=== PATIENT | female | born 1955 | race Caucasian/White ===

== ENCOUNTER 2022-06-20 19:27 | Emergency (ER) | payer MEDICARE, SELFPAY ==
[2022-06-20 19:28] VITALS: BP 163/59; PULSE 78; RESP 18; TEMP 36.5; O2SAT 92; BMI 35.0
--- NOTE | 2022-06-20 20:31 | US_ITS ---
STUDY: ABDOMINAL ULTRASOUND - RIGHT UPPER QUADRANT REASON FOR VISIT: Female, 66 years old pain, n/v TECHNIQUE: Ultrasound evaluation of the right upper quadrant was performed with real-time and static roche-scale imaging. TECHNICAL QUALITY: Adequate. COMPARISON: None. FINDINGS: Liver: The liver measures 20 cm. There is normal echogenicity of the liver. The bile ducts are within normal limits. There is hepatic color flow. The direction of portal flow is hepatopetal. There is no demonstrated mass lesion. Gallbladder: Not identified. Common Bile Duct (C.B.D.): The common bile duct measures 13 mm. Pancreas: Normal size of the head, body and tail of the pancreas. There is increased echogenicity of the pancreas incomplete visualization due to bowel gas. Right Kidney: Normal size of the right kidney. The right kidney measures 12.8 cm. Normal renal cortex. The right cortex measures 1.3 cm. There is no demonstrated renal mass or cyst. There is no right hydronephrosis. US/Gallbladder IMPRESSION: Hepatomegaly. Gallbladder not identified. Prominent common bile duct. Distal common bile duct obstruction not excluded. Recommend HIDA scan and/or MRCP. Electronically Signed: Fortino Perez MD at 22:26 EDT ,
--- NOTE | 2022-06-20 20:32 | ED.VIS.GI ---
HPI HPI - GI History of Present Illness Chief Complaint: Back Informant: patient Narrative Narrative: Patient is been having right-sided abdominal pain for maybe 3 weeks, radiates into her right mid back, she has been having discomfort in her entire right lower extremity for longer than that, it was not associated with any back pain until about 3 weeks ago, the leg pain is no different now. She denies numbness tingling weakness, bowel or bladder dysfunction. She was seen at a different ER, [facility] about 1 week ago, she brings partial records there are pages missing. Basically shows that she had a CT of the abdomen/pelvis that showed some lymphadenopathy and an adrenal nodule. She did have some labs I cannot see them all including her white blood count, she had a very slightly elevated alkaline phosphatase but all of the other chemistries and liver enzymes were normal. She had a prior ovary removal but no other abdominal surgeries in the past. She states they did nothing for me, so I came here today. It seems they told her to follow-up, and they prescribed her Verdon and dicyclomine for her symptoms according to the discharge instructions that she brought. I asked her if she read the discharge instructions and she said no, but she had an appointment to follow-up with the specialist they referred her to, but she and family states I was too sick to go to the appointment and missed it. She has had a significant amount of vomiting off-and-on over the past 3 weeks with this. [facility] Medical History (Updated 06/20/22 @ 22:[address] Narciso Morfin MD) Diabetes HLD (hyperlipidemia) Hypertension Home Medications dicyclomine 10 mg capsule 20 mg PO Q6H PRN PRN abdominal discomfort #30 CAPSULES 06/20/22 [Rx Last Taken Unknown] ondansetron 4 mg disintegrating tablet 8 mg PO Q8H PRN PRN Nausea #20 tabs 06/20/22 [Rx Last Taken Unknown] Allergy/AdvReac Type Severity Reaction Status Date / Time No Known Allergies Allergy Verified 06/20/22 19:28 Surgical History (Updated 06/20/22 @ 20:[address] Narciso Morfin MD) Hx of oophorectomy Social History Smoking Status: Never smoker ROS ROS ED Constitutional Constitutional ED: Denies chills or fever(s) Eyes Eyes: Denies change in vision or diplopia ENT ENT ED: Denies rhinorrhea or sore throat Cardiovascular Cardiovascular: Denies chest pain or palpitations Respiratory/Chest Respiratory/Chest: Denies cough or dyspnea Gastrointestinal Gastrointestinal: Reports abdominal pain, constipation, nausea and vomiting; Denies diarrhea or melena Genitourinary Genitourinary ED: Denies dysuria or hematuria Musculoskeletal Musculoskeletal: Reports back pain and extremity pain; Denies neck pain Integumentary Denies abscess or rash Neurologic Neurologic: Denies headache(s), paresthesias or weakness Psychiatric Psychiatric: Denies anxiety or suicidal thoughts EXAM Physical Exam Const Vital Signs: 06/20/22 19:28 06/20/22 19:30 06/20/22 22:04 Temperature 97.7 F L Temperature Source Temporal Pulse Rate 78 Respiratory Rate 18 Respiratory Effort Normal Non-Labored Respiratory Pattern Normal Blood Pressure 163/59 H 146/68 H Blood Pressure Mean 93 94 Pulse Ox 92 96 Oxygen Delivery Method Room Air Room Air Positive well nourished and well developed Constitutional Narrative: Morbid abdominal obesity which limits the exam General Appearance ED: well developed and NAD HEENT Reports moist mucous membranes normocephalic and atraumatic Eyes PERRL and EOMs intact bilaterally Neck full ROM and supple Resp normal respiratory effort and clear to auscultation bilaterally Cardio regular rate, regular rhythm and no murmurs GI non-distended GI Narrative: Moderately-severely tender right upper quadrant with Roa sign. Less tender in the right lower quadrant without guarding or rebound tenderness. No other areas of tenderness. Obesity does limit the exam. Auscultation: normoactive bowel sounds Palpation: soft Back/Spine no CVA tenderness General Back: other FROM Extremity normal to inspection General Extremety ED: Negative for edema, pulses abnormal or tenderness General Extremity: Negative for edema or pulses abnormal Neuro oriented x3, CN's II-XII intact bilaterally and no sensory deficits noted Sensorium / Orientation: awake and alert Motor Exam: strength 5/5 throughout Skin no rashes or lesions noted and no wounds MDM MDM MDM Narrative Medical decision making narrative: Patient was given a dose of morphine for pain while we did some work-up including repeating her labs, which are normal except for her glucose of 196 and a slightly elevated alkaline phosphatase of 161 which is nonspecific and can occur with vomiting. Lipase is normal. Her albumin is low and the urine that I reviewed from outside hospital 1 week ago did show proteinuria. She does have a slight creatinine elevation but not very high especially for her size. It is lower than it was a week ago. Since her CT 1 week ago for the same pain did not show anything acute I do not think that needs to be repeated. She states she has not had a cholecystectomy, so I obtained an ultrasound of her gallbladder since that is where the majority of her tenderness is, I reviewed the images and the radiologist's interpretation which I agree with, the gallbladder is not seen. I discussed that with the patient, and she states that she has never had a cholecystectomy. Possibly it is obscured by bowel gas or contracted. Given her white blood count of 6.9 and normal liver enzymes otherwise, unlikely that she has acute cholecystitis here. I offered her an enema to treat possible constipation which she was amenable to. This did help her some. She looks much better on reevaluation. She is out of the dicyclomine she had I am prescribing her some more of that in addition to Zofran and advising MiraLAX, and following up, she states she already has an appointment. Lab Data Attestation: I reviewed the patient's lab results. Labs: Laboratory Results - last 24 hr 06/20/22 06/20/22 06/20/22 20:52 20:52 22:37 WBC 6.9 RBC 5.15 Hgb 15.3 H Hct 45.9 MCV 89.1 MCH 29.7 MCHC 33.3 RDW Std Deviation 41.9 RDW Coeff of Sidra 12.9 Plt Count 113 L MPV 10.2 Immature Gran % (Auto) 0.300 Neut % (Auto) 68.6 Lymph % (Auto) 24.8 [place] % (Auto) 5.7 Eos % (Auto) 0.3 Baso % (Auto) 0.3 Absolute Neuts (auto) 4.7 Absolute Lymphs (auto) 1.71 Nucleated RBC % 0 Sodium 138 Potassium 3.9 Chloride 104 Carbon Dioxide 26.0 Anion Gap 8 BUN 13 Creatinine 1.14 H Estim Creat Clear Calc 46.06 Est GFR (MDRD) Af Amer 61 Est GFR (MDRD) Non-Af 51 L BUN/Creatinine Ratio 11.4 Glucose 196 H Calcium 8.8 Total Bilirubin 0.30 AST 27 ALT 28 Alkaline Phosphatase 161 H Total Protein 6.9 Albumin 2.8 L Globulin 4.1 Albumin/Globulin Ratio 0.7 L Lipase 225 Urine Color Yellow Urine Clarity Clear Urine pH 6.0 Ur Specific [place] 1.020 Urine Protein 500 H Urine Glucose (UA) Normal Urine Ketones Negative Urine Occult Blood 150 H Urine Nitrite Negative Urine Bilirubin Negative Urine Urobilinogen Normal Ur Leukocyte Esterase Negative Radiography Diagnostic Testing: Clinical Impression(s) from Imaging Studies Gallbladder Ultrasound 06/20/22 20:31 IMPRESSION: Hepatomegaly. Gallbladder not identified. Prominent common bile duct. Distal common bile duct obstruction not excluded. Recommend HIDA scan and/or MRCP. Electronically Signed: Fortino Perez MD at 22:26 EDT Reading Location ID and State: [address] [place] [address] , Service support , Discharge Plan Triage Chief Complaint: Back ED Provider: Narciso Morfin Dx/Rx/DC Orders Clinical Impression: Right sided abdominal pain, Constipation Instructions: Abdominal Pain Prescriptions: New ondansetron [ondansetron] 4 mg tablet,disintegrating 8 mg PO Q8H PRN PRN (Reason: Nausea) Qty: 20 0RF dicyclomine 10 mg capsule 20 mg PO Q6H PRN PRN (Reason: abdominal discomfort) Qty: 30 0RF Primary Care Provider: Deepa Hunt Referrals: NOT,DEFINED [Non-Staff] - Doctor,Your [Non-Staff] - As soon as possible (as previously referred -- call for appt if needed) Activity Restrictions/Additional Instructions: Use the dicyclomine that you were previously prescribed as needed for pain, may also take Tylenol and/or ibuprofen as needed, Mylanta. MiraLAX is recommended daily, 1 capful dissolved in at least 8 ounces of any beverage or water. Make sure you are drinking plenty of water and use the nausea medication prescription as needed. Disposition Disposition: Home, Self Care
[2022-06-20 21:06] LABS: Absolute Lymphocyte Count 1.71 X10^3/uL (0.83-4.51); Absolute Neutrophil Count 4.7 X10^3/uL (2.0-7.7); Basophil# 0.02 X10^3/uL; Basophil% 0.3 % (0-1); Eosinophil# 0.02 X10^3/uL; Eosinophils% 0.3 % (0-5); Hematocrit 45.9 % (37-47); Hemoglobin 15.3 g/dL (12.0-15.0); Lymphocyte # 1.71 X10^3/ul (0.83-4.51); Lymphocyte % 24.8 % (19-41); Mean Corp Hgb Conc 33.3 g/dL (32-36); Mean Corpuscular Hgb 29.7 pg (27.0-32.0); Mean Corpuscular Volume 89.1 fL (81-99); Mean Platelet Vol. 10.2 fl (6.2-12.0); Monocyte# 0.39 X10^3/uL; Monocyte% 5.7 % (0-10); NRBC Flagged by Analyzer 0 % (0-5); Neutrophil # 4.74 X10^3/uL (2.7-7.7); Neutrophil % 68.6 % (47-70); Platelet Count 113 K/mm3 (150-450); RBC Distribution Width CV 12.9 % (11.6-14.6); RBC Distribution Width SD 41.9 fl (35.1-43.9); Red Blood Count 5.15 M/mm3 (4.2-5.4); White Blood Count 6.9 K/mm3 (4.4-11.0)
[2022-06-20] MEDS: 0.9% Normal Saline 1,000 ML 125 ML IV (21:10)
[2022-06-20] MEDS: Morphine 4 MG/ML Syringe IV (21:11)
[2022-06-20] MEDS: Ondansetron 4 MG/2 ML Vial IV (21:12)
[2022-06-20 21:20] LABS: ALB/GLOB Ratio 0.7 RATIO (0.9-2.4); AST(SGOT) 27 U/L (15-37); Alanine Aminotransfer ALT/SGPT 28 U/L (13-56); Albumin, Serum 2.8 g/dL (3.2-5.0); Alkaline Phosphatase 161 U/L (45-117); Anion Gap 8 (5-15); BUN 13 mg/dL (7-18); BUN/Creat Ratio 11.4 RATIO (10-20); Calcium,Total 8.8 mg/dL (8.5-10.1); Chloride 104 mmol/L (98-107); Creatinine, Serum 1.14 mg/dL (0.55-1.02); EST Glomerular Filtration Rate 51 mL/min (>60); Est Glom Filt Rate - Afr Amer 61 mL/min (>60); Estimated Creatinine Clearance 46.06 ml/min; Globulin 4.1 g/dL (2.2-4.2); Glucose 196 mg/dL (74-106); Lipase 225 U/L (73-393); Potassium 3.9 mmol/L (3.5-5.1); Protein, Total 6.9 g/dL (6.4-8.2); Sodium Level 138 mmol/L (136-145)
[2022-06-20 22:04] VITALS: BP 146/68; O2SAT 96
[2022-06-20 22:40] LABS: Mucous, Urine 0 SEEN /hpf (<or=2+); White Blood Cells 0 SEEN /hpf (0-5)
[2022-06-20 22:57] LABS: Color, Urine Yellow (Yellow); Glucose, Dipstick Normal (Normal); Ketone-Dipstick Negative (Negative); Leukocyte Esterase-Dipstick Negative /ul (Negative); Nitrite-Dipstick Negative (Negative); Occult Blood-Urine 150 /ul (Negative); Protein-Dipstick 500 mg/dl (Negative); Urine Bilirubin Dipstick Negative (Negative); Urine Clarity Clear (Clear); Urine Urobilinogen Normal (Normal)
[2022-06-20 23:08] LABS: Bacteria 1+ /hpf (None Seen); Red Blood Cells-Urine 5-10 SEEN /hpf (0-5); Squamous Epithelial Cells - UA 5-10 SEEN /hpf (5-10)
[2022-06-21 00:24] VITALS: BP 166/59; PULSE 71; RESP 18; O2SAT 95
== END 2022-06-21 00:26 | disposition home or self-care (01) ==
PROVIDERS: Emergency Provider Emergency Medicine; PCP Physician Assistant Medical; Visit Provider Emergency Medicine
DX: K59.00 Constipation, unspecified (principal); E11.9 Type 2 diabetes mellitus without complications; I10 Essential (primary) hypertension; E78.5 Hyperlipidemia, unspecified
CPT/HCPCS: 76705; 80053; 81001; 83690; 85025; 96361; 96374; 96375; 99285; J2405

== ENCOUNTER 2024-01-12 16:16 | Inpatient (IN) | payer MEDICARE, SELFPAY ==
[2024-01-12] VITALS (12 sets, daily range): BP systolic 103–154; BP diastolic 47–83; PULSE 70–80; RESP 16–27; TEMP 35.7–36.4; O2SAT 90–96; BMI 45.7; BMI 44.7
--- NOTE | 2024-01-12 16:43 | EKG12_ITS ---
Test Reason : SOB Blood Pressure : / mmHG Vent. Rate : 077 BPM Atrial Rate : 077 BPM P-R Int : 146 ms QRS Dur : 064 ms QT Int : 374 ms P-R-T Axes : 027 -04 049 degrees QTc Int : 423 ms Normal sinus rhythm Low voltage QRS Borderline ECG Confirmed by FREDI MORRISSEY, FREDDY ([id number]), assignment desk editor ODILON CASTELLANO ([id number]) on 01/13/2024 1:37:41 PM Referred By: Chris Mendez Confirmed By:FREDDY RAI MD
[2024-01-12 17:07] LABS: Absolute Lymphocyte Count 1.04 X10^3/uL (0.83-4.51); Absolute Neutrophil Count 13.5 X10^3/uL (2.0-7.7); Basophil# 0.03 X10^3/uL; Basophil% 0.2 % (0-1); Eosinophil# 0.01 X10^3/uL; Eosinophils% 0.1 % (0-5); Hematocrit 35.9 % (37-47); Hemoglobin 11.4 g/dL (12.0-15.0); Lymphocyte # 1.04 X10^3/ul (0.83-4.51); Lymphocyte % 6.8 % (19-41); Mean Corp Hgb Conc 31.8 g/dL (32-36); Mean Corpuscular Hgb 28.5 pg (27.0-32.0); Mean Corpuscular Volume 89.8 fL (81-99); Mean Platelet Vol. 10.9 fl (6.2-12.0); Monocyte# 0.62 X10^3/uL; NRBC Flagged by Analyzer 0 % (0-5); Neutrophil # 13.47 X10^3/uL (2.7-7.7); Neutrophil % 87.8 % (47-70); POSITIVE COUNT YES; Platelet Count 95 K/mm3 (150-450); RBC Distribution Width CV 14.7 % (11.6-14.6); RBC Distribution Width SD 47.8 fl (35.1-43.9); White Blood Count 15.3 K/mm3 (4.4-11.0)
[2024-01-12 17:09] LABS: Differential Indicated SCAN CRITERIA MET
[2024-01-12] MEDS: Ipratropium/Albuterol Sulfate 3 ML AMPUL.NEB INHALATION (17:09)
[2024-01-12] MEDS: predniSONE 20 MG Tablet 60 MG PO (17:10)
--- NOTE | 2024-01-12 17:21 | EX.ED.DYSGE1 ---
HPI History of Present Illness Chief Complaint: Weakness Narrative Narrative: Patient is a 68-year-old female past medical history hypertension, diabetes, hyperlipidemia who presented to the emergency department the chief complaint of shortness of breath. According the patient past few days she has been having worsening shortness of breath and she states that she recently was discharged from with pneumonia. Patient states that she has worsening shortness of breath on exertion. Patient states that she felt it was worse today which prompted her here further evaluation management. Patient states that she is not normally on oxygen and she was noted be hypoxic when she was picked up by EMS. [facility] Medical History (Updated 01/12/24 @ 19:[address] Chris Mendez, ) Diabetes mellitus, type 2 Thrombocytopenia Allergic rhinitis Hypothyroidism Anxiety and depression Morbid obesity CKD (chronic kidney disease), stage III Hyperlipidemia Hypertension Home Medications ?Medication ?Instructions ?Recorded ?Last Taken ?Type dicyclomine 10 mg capsule 20 mg (2 x 10 mg) PO Q6H PRN PRN 06/20/22 Unknown Rx abdominal discomfort #30 CAPSULES ondansetron 4 mg disintegrating 8 mg (2 x 4 mg) PO Q8H PRN PRN 06/20/22 Unknown Rx tablet Nausea #20 tabs aspirin 81 mg tablet,delayed 81 mg PO 01/12/24 Unknown History release atorvastatin 20 mg tablet 20 mg PO DAILY 01/12/24 Unknown History citalopram 40 mg tablet mg PO 01/12/24 Unknown History gabapentin 800 mg tablet 800 mg PO TID 01/12/24 Unknown History insulin glargine 100 unit/mL (3 40 unit subcut BID 01/12/24 Unknown History mL) subcutaneous pen (Lantus Solostar U-100 Insulin) levothyroxine 75 mcg tablet 75 mcg PO DAILY 01/12/24 Unknown History metoprolol tartrate 50 mg tablet 50 mg PO BID 01/12/24 Unknown History montelukast 10 mg tablet 10 mg PO QHS 01/12/24 Unknown History trazodone 100 mg tablet 100 mg PO QHS 01/12/24 Unknown History Allergy/AdvReac Type Severity Reaction Status Date / Time No Known Allergies Allergy Verified 01/12/24 16:26 Surgical History Hx of oophorectomy Social History Smoking Status: Former smoker ROS ROS ED ROS Narrative Constitutional: Complains of headache however patient states that this feels like her typical migraine headache denies any fevers, chills, lightness, dizziness Eyes: Denies any change in vision double vision blurry vision Cardiovascular: Denies chest pain or palpitations Respiratory: Complains shortness of breath and cough denies wheezing Abdomen: Denies abdominal pain nausea vomit diarrhea : Denies any urinary symptoms Neurological: Denies any numbness, weakness, tingling Musculoskeletal: Denies back pain Skin: Denies rashes or lesions EXAM Physical Exam Narrative Exam Narrative: General: Patient lying in bed rest comfortably did not appear to be in acute distress Head: Atraumatic, normocephalic Eyes: PERRL bilateral, EOMI bilateral, no conjunctival injection noted Neck: Soft, supple, trachea midline Cardiovascular: Regular rate and rhythm no murmurs gallops rubs noted Respiratory: Patient has end expiratory wheezing noted on exam bilaterally Abdomen: Soft, nondistended, nontender to palpation Extremities: +5/5 strength noted in the bilateral lower extremities, 1+ pitting edema in bilateral lower extremities Neurological: Patient following commands knew that she was at [facility] year is 2023 Skin: Patient does have a evidence of left lower extremity cellulitis Const Vital Signs: 01/12/24 16:18 01/12/24 16:27 01/12/24 16:27 Temperature 96.3 F L 97.3 F L Temperature Source Temporal Temporal Pulse Rate 80 79 Respiratory Rate 24 H 24 H Respiratory Effort Non-Labored Short of Breath Respiratory Pattern Tachypnea Blood Pressure 154/55 H 154/55 H Blood Pressure Mean 88 88 Pulse Ox 90 95 Oxygen Delivery Method Room Air Nasal Cannula Oxygen Flow Rate (L/min) 2 01/12/24 16:57 01/12/24 17:12 01/12/24 17:24 Temperature 97.6 F L Temperature Source Temporal Pulse Rate 79 78 Respiratory Rate 16 27 H Respiratory Effort Respiratory Pattern Normal Blood Pressure 127/75 H Blood Pressure Mean 92 Pulse Ox 96 Oxygen Delivery Method Nasal Cannula Nasal Cannula Oxygen Flow Rate (L/min) 2 2 01/12/24 18:00 01/12/24 18:42 01/12/24 19:00 Temperature 97.4 F L 97.6 F L Temperature Source Oral Temporal Pulse Rate 76 78 Respiratory Rate 20 H 21 H Respiratory Effort Respiratory Pattern Blood Pressure 130/47 H 103/83 H Blood Pressure Mean 74 89 Pulse Ox 93 93 96 Oxygen Delivery Method Nasal Cannula Nasal Cannula Nasal Cannula Oxygen Flow Rate (L/min) 2 2 3 01/12/24 19:43 Temperature 97.6 F L Temperature Source Pulse Rate 78 Respiratory Rate 21 H Respiratory Effort Respiratory Pattern Blood Pressure 103/83 H Blood Pressure Mean 89 Pulse Ox 96 Oxygen Delivery Method Oxygen Flow Rate (L/min) MDM MDM MDM Narrative Medical decision making narrative: Patient is a 68-year-old female who presented to the emerged part with chief complaint of dyspnea on exertion and cough. Patient will have a workup performed here on the differential diagnose includes but not limited to ACS, pneumonia, CHF exacerbation, COPD exacerbation. Patient will be given DuoNeb, oral prednisone. Patient is not normally on oxygen she was hypoxic therefore she was placed on nasal cannula. Patient CBC was significant for leukocytosis of 15,000, hemoglobin stable 11.4, platelet count was noted to be 95. Patient sodium noted be 134, creatinine was elevated to 1.48 however she has underlying chronic kidney disease, potassium normal 4.8, lactic acid was normal at 1.6. Patient AST and ALT were 30 and 24 respectively proBNP was elevated of 144, troponin reviewed and was noted to be normal at 13. Patient's EKG was reviewed as well which showed sinus rhythm with a rate of 77 bpm. Patient's urinalysis showed 25 leukocyte esterase 5-10 white blood cells with 2+ bacteria this was sent for culture she will be given a gram of Rocephin. Patient's chest x-ray was reviewed as well which showed small right pleural effusion and mild right basilar atelectasis. Patient was ambulated here in the emergency department on room air and desaturated to 83% was placed back on nasal cannula. She will require admission. Patient was given 40 mg IV Lasix as well. Discussed this with the hospitalist Dr. Rojas who accept patient for admission. Patient is agreeable to plan all question concerns answered bedside. Lab Data Labs: Laboratory Results - last 24 hr 01/12/24 01/12/24 01/12/24 16:56 17:45 19:10 WBC 15.3 H RBC 4.00 L Hgb 11.4 L Hct 35.9 L MCV 89.8 MCH 28.5 MCHC 31.8 L RDW Std Deviation 47.8 H RDW Coeff of Sidra 14.7 H Plt Count 95 L MPV 10.9 Immature Gran % (Auto) 1.100 H Neut % (Auto) 87.8 H Lymph % (Auto) 6.8 L [place] % (Auto) 4.0 Eos % (Auto) 0.1 Baso % (Auto) 0.2 Absolute Neuts (auto) 13.5 H Absolute Lymphs (auto) 1.04 Nucleated RBC % 0 Differential Comment SCANNED Sodium 134 L Potassium 4.8 Chloride 102 Carbon Dioxide 28.0 Anion Gap 5 BUN 11 Creatinine 1.48 H Estim Creat Clear Calc 43.94 Est GFR (MDRD) Af Amer 45 L Est GFR (MDRD) Non-Af 37 L BUN/Creatinine Ratio 7.4 L Glucose 183 H Lactic Acid 1.6 Calcium 8.5 Total Bilirubin 0.80 Direct Bilirubin 0.18 AST 30 ALT 24 Alkaline Phosphatase 206 H Troponin I High Sens 13 15 B-Natriuretic Peptide 144.1 H Total Protein 6.6 Albumin 2.3 L Globulin 4.3 H Urine Color [place] Urine Clarity Clear Urine pH 7.0 Ur Specific [place] 1.010 Urine Protein 500 H Urine Glucose (UA) Normal Urine Ketones Negative Urine Occult Blood 150 H Urine Nitrite Negative Urine Bilirubin Negative Urine Urobilinogen 1 H Ur Leukocyte Esterase 25 H Urine RBC > 100 SEEN Urine WBC 5-10 SEEN Ur Squamous Epith Cells 10-25 SEEN Urine Bacteria 2+ Urine Mucus 0 SEEN Radiography Diagnostic Testing: Clinical Impression(s) from Imaging Studies Chest X-Ray 01/12/24 17:30 IMPRESSION: Small right pleural effusion and mild right basilar atelectasis Electronically Signed: Kirt Ruff MD at 17:55 EDT , Discharge Plan Triage Chief Complaint: Weakness ED Provider: Chris Mendez Dx/Rx/DC Orders Clinical Impression: Hypoxia, Dyspnea on exertion, CHF (congestive heart failure), UTI (urinary tract infection) Prescriptions: No Action ondansetron [ondansetron] 4 mg tablet,disintegrating 8 mg PO Q8H PRN PRN (Reason: Nausea) Qty: 20 0RF dicyclomine 10 mg capsule 20 mg PO Q6H PRN PRN (Reason: abdominal discomfort) Qty: 30 0RF atorvastatin 20 mg tablet 20 mg PO DAILY citalopram 40 mg tablet PO aspirin 81 mg tablet,delayed release (DR/EC) 81 mg PO gabapentin 800 mg tablet 800 mg PO TID insulin glargine [Lantus Solostar U-100 Insulin] 100 unit/mL (3 mL) insulin pen 40 unit subcut BID levothyroxine 75 mcg tablet 75 mcg PO DAILY trazodone 100 mg tablet 100 mg PO QHS metoprolol tartrate 50 mg tablet 50 mg PO BID montelukast 10 mg tablet 10 mg PO QHS Primary Care Provider: Deepa Hunt Referrals: Deepa Hunt PA [Primary Care Provider] - Print Language: Croatian
[2024-01-12 17:27] LABS: AST(SGOT) 30 U/L (15-37); Alanine Aminotransfer ALT/SGPT 24 U/L (13-56); Albumin, Serum 2.3 g/dL (3.2-5.0); Alkaline Phosphatase 206 U/L (45-117); Anion Gap 5 (5-15); BUN 11 mg/dL (7-18); BUN/Creat Ratio 7.4 RATIO (10-20); Bilirubin, Direct 0.18 mg/dL (0.00-0.30); Calcium,Total 8.5 mg/dL (8.5-10.1); Chloride 102 mmol/L (98-107); Creatinine, Serum 1.48 mg/dL (0.55-1.02); EST Glomerular Filtration Rate 37 mL/min (>60); Est Glom Filt Rate - Afr Amer 45 mL/min (>60); Estimated Creatinine Clearance 43.94 ml/min; Globulin 4.3 g/dL (2.2-4.2); Glucose 183 mg/dL (74-106); Potassium 4.8 mmol/L (3.5-5.1); Protein, Total 6.6 g/dL (6.4-8.2); Sodium Level 134 mmol/L (136-145); Troponin-I HS (w/2H Reflex) 13 pg/mL (3.0-54.0)
--- NOTE | 2024-01-12 17:30 | RAD_ITS ---
STUDY: X-RAY CHEST REASON FOR EXAM: Female, 68 years old. chest pain TECHNIQUE: PA and lateral COMPARISON: None. FINDINGS: Small right pleural effusion and mild right lower lobe atelectasis. Normal size heart. Normal mediastinum and ely. Normal visualized pulmonary arteries. Mildly calcified aortic arch and descending thoracic aorta. Normal visualized thoracic spine. Normal visualized ribs, clavicles, and shoulders. There is no demonstrated abnormality of the visualized soft tissue structures of the upper abdomen. RAD/Chest PA and Lateral IMPRESSION: Small right pleural effusion and mild right basilar atelectasis Electronically Signed: Kirt Ruff MD at 17:55 EDT ,
[2024-01-12 17:31] LABS: Lactic Acid 1.6 mmol/L (0.4-1.9)
[2024-01-12 17:34] LABS: BNP,B-Type NATRIURETIC PEPTIDE 144.1 pg/mL (0-100)
[2024-01-12 17:42] LABS: Differential Comment SCANNED
[2024-01-12 17:54] LABS: Mucous, Urine 0 SEEN /hpf (<or=2+)
[2024-01-12 18:03] LABS: Color, Urine Amber (Yellow); Glucose, Dipstick Normal (Normal); Ketone-Dipstick Negative (Negative); Leukocyte Esterase-Dipstick 25 /ul (Negative); Nitrite-Dipstick Negative (Negative); Occult Blood-Urine 150 /ul (Negative); Protein-Dipstick 500 mg/dl (Negative); Urine Bilirubin Dipstick Negative (Negative); Urine Clarity Clear (Clear); Urine Urobilinogen 1 mg/dl (Normal)
[2024-01-12 18:41] LABS: Bacteria 2+ /hpf (None Seen); Red Blood Cells-Urine > 100 SEEN /hpf (0-5); Squamous Epithelial Cells - UA 10-25 SEEN /hpf (5-10); White Blood Cells 5-10 SEEN /hpf (0-5)
[2024-01-12 19:00] LABS: Reflex Troponin-HS? (from REC) Y
[2024-01-12] MEDS: Ceftriaxone 1 GM/50 ML BAG IV (19:00)
[2024-01-12] MEDS: Furosemide 40 MG/4 ML Vial IV (19:00)
--- NOTE | 2024-01-12 19:25 | PCM.HP.STD ---
HPI - General General Date of Admission: 01/12/24 Date of Service: 01/12/24 Chief Complaint: Dyspnea, cough, fatigue. HPI Narrative The patient is a 68 y/o F w/ PMHx: Chronic migraines, Morbid obesity, HTN, HLD, Diabetes mellitus type II with chronic neuropathy, Chronic Thrombocytopenia unclear etiology, Anxiety and Depression, Allergic Rhinitis, Hypothyroidism, CKD stage III unclear subtype, Former tobacco use who presents to the [facility] ED on 01/12/24 with history of dyspnea worsening over the last few days recently discharged from [facility] with reportedly pneumonia but unclear organism more notable with exertion not normally using oxygen however given her fatigue and malaise as well as dyspnea prompted EMS call who noted that she was hypoxic upon initial evaluation prompting ED evaluation. Patient notes that she was discharged from potentially 2 weeks prior to current presentation and was admitted for possibly 3 days treated for pneumonia and COPD exacerbation at that time and completed antibiotic therapy. She does report that recently she feels as though her lower extremities have been more swollen but denies any specific weight gain although does admit to orthopnea. She notes that she has been wheezing and coughing with occasional productive sputum as well as shortness of breath with chills but no fevers. Workup in the ED included T96.3, heart 80, BP 1 5455, respiratory rate 24, 90% room air eventually desaturating with ambulatory trial noted to drop to 83%, placed on 2 L nasal cannula with most recent repeat vitals T97.4, heart 76, BP 130/47, respiratory rate 20, 93% on 2L NC, CBC with WBC 15.3, hemoglobin 0.4, MCV 89.8, platelet 95 with left shift, CBC with sodium 134, BUN/creatinine 11/1.48, GFR 37, glucose 183, lactic acid 1.6, hepatic profile with alk phos 206 otherwise not marked appearing, BNP 144.1, troponin 13 with repeat delta troponin 15, urinalysis with joan appearing urine, specific remedy 1.010, protein 500, occult blood 150, nitrite negative, leukocyte Estrace 25 however urine RBCs greater than 100 with 5-10 urine WBCs with 2+ bacteria but this is a poor sample with squamous epithelial cells noted 10-25, urine culture pending per ED but will request improved sample with straight cath given this is not a good sample, blood culture x 2 pending per ED, CXR with small right pleural effusion and mild right basilar atelectasis, EKG with sinus rhythm with no acute evidence of ischemia. In the ED patient administered DuoNeb therapy, IV Rocephin 1 g x 1, Lasix 40 mg IV x 1 as well as prednisone 60 mg p.o. x 1. [facility] Medical History Diabetes mellitus, type 2 Thrombocytopenia Allergic rhinitis Hypothyroidism Anxiety and depression Morbid obesity CKD (chronic kidney disease), stage III Hyperlipidemia Hypertension Home Medications ?Medication ?Instructions ?Recorded ?Last Taken ?Type ondansetron 4 mg disintegrating 8 mg (2 x 4 mg) PO Q8H PRN PRN 06/20/22 Unknown Rx tablet Nausea #20 tabs aspirin 81 mg tablet,delayed 81 mg PO DAILY heart 01/12/24 Unknown History release atorvastatin 20 mg tablet 20 mg PO DAILY 01/12/24 Unknown History citalopram 40 mg tablet 40 mg PO DAILY depression 01/12/24 Unknown History gabapentin 800 mg tablet 800 mg PO TID 01/12/24 Unknown History insulin glargine 100 unit/mL (3 40 unit subcut BID 01/12/24 Unknown History mL) subcutaneous pen (Lantus Solostar U-100 Insulin) levothyroxine 75 mcg tablet 75 mcg PO DAILY 01/12/24 Unknown History metoprolol tartrate 50 mg tablet 50 mg PO BID 01/12/24 Unknown History montelukast 10 mg tablet 10 mg PO QHS 01/12/24 Unknown History trazodone 100 mg tablet 100 mg PO QHS 01/12/24 Unknown History Allergy/AdvReac Type Severity Reaction Status Date / Time No Known Allergies Allergy Verified 01/12/24 16:26 Family History (Updated 01/13/24 @ 01:[address] Meg Rojas MD) Mother Brain aneurysm Father Hypertension Heart disease Heart failure Surgical History (Updated 01/13/24 @ 01:[address] Meg Rojas MD) History of total left knee replacement Hx of oophorectomy Social History (Updated 01/13/24 @ 01:[address] Meg Rojas MD) household members: family Smoking Status: Current every day smoker tobacco type: cigarettes Smoking packs per day: 0.25 Smoking cigarettes per day: 5.0 alcohol intake: never substance use type: does not use ROS ROS Narrative Admission Review of Systems: CONSTITUTIONAL: No weight loss, fever, chills, + weakness or fatigue. HEENT: + Mild headache, chronic migraine history. Eyes: No visual loss, blurred vision, double vision or yellow sclerae. Ears, Nose, Throat: No hearing loss, sneezing, congestion, runny nose or sore throat. SKIN: No rash or itching, lesions, wounds. CARDIOVASCULAR: + Increased lower extremity swelling and orthopnea but no reported weight gain. No chest pain, chest pressure or chest discomfort, palpitations, syncopal events. RESPIRATORY: + Dyspnea, worse with exertion with cough. No marked sputum production, wheezing, hemoptysis. GASTROINTESTINAL: No anorexia, nausea, vomiting or diarrhea, abdominal pain, melena, BRBPR. GENITOURINARY: + Increased urinary frequency, foul-smelling urine. No dysuria, urgency or retention. NEUROLOGICAL: + Headache. No dizziness, syncope, paralysis, ataxia, numbness or tingling in the extremities, focal weakness, change in bowel or bladder control, seizure. MUSCULOSKELETAL: + muscle, back pain, joint pain or stiffness. HEMATOLOGIC: + Noted anemia upon presentation, easy bleeding/bruising. LYMPHATICS: No enlarged nodes. No history of splenectomy. PSYCHIATRIC: + History of anxiety and depression. ENDOCRINOLOGIC: No reports of sweating, cold or heat intolerance. No polyuria or polydipsia. ALLERGIES: + History of allergic rhinitis. Vital Signs Vital Signs Vital Signs: 01/12/24 16:18 01/12/24 16:27 01/12/24 16:27 Temperature 96.3 F L 97.3 F L Temperature Source Temporal Temporal Pulse Rate 80 79 Respiratory Rate 24 H 24 H Respiratory Effort Non-Labored Short of Breath Respiratory Pattern Tachypnea Blood Pressure 154/55 H 154/55 H Blood Pressure Mean 88 88 Pulse Ox 90 95 Oxygen Delivery Method Room Air Nasal Cannula Oxygen Flow Rate (L/min) 2 01/12/24 16:57 01/12/24 17:12 01/12/24 17:24 Temperature 97.6 F L Temperature Source Temporal Pulse Rate 79 78 Respiratory Rate 16 27 H Respiratory Effort Respiratory Pattern Normal Blood Pressure 127/75 H Blood Pressure Mean 92 Pulse Ox 96 Oxygen Delivery Method Nasal Cannula Nasal Cannula Oxygen Flow Rate (L/min) 2 2 01/12/24 18:00 01/12/24 18:42 01/12/24 19:00 Temperature 97.4 F L 97.6 F L Temperature Source Oral Temporal Pulse Rate 76 78 Respiratory Rate 20 H 21 H Respiratory Effort Respiratory Pattern Blood Pressure 130/47 H 103/83 H Blood Pressure Mean 74 89 Pulse Ox 93 93 96 Oxygen Delivery Method Nasal Cannula Nasal Cannula Nasal Cannula Oxygen Flow Rate (L/min) 2 2 3 Weight Weight: 250 lb 3.594 oz Body Mass Index (BMI) 45.7 Physical Exam Narrative Physical Examination: General: Awake, alert, oriented x 3 and cooperative, seated upright in the ED bed, fatigued, ill-appearing. Skin: Normal color, normal turgor, no icterus, no cyanosis except occasional stage ecchymoses, abrasion. HEENT: AT/NC, EOMI, PERRLA, dry MM, no carotid bruits or JVD noted; however, thickened neck makes evaluation difficult. Lungs: Diminished, greater bases, right greater than left, diffuse especially posterior and expiratory wheeze, worse on the right mid and posterior region, no rales or rhonchi, mildly increased respiratory rate but no distress. Heart: Regular rate and rhythm; no gallop, rub audible. Abdomen: Soft, morbidly obese, NTTP, distant normal BS, difficulty discerning distention and HSM given habitus. Extremities: No cyanosis, no clubbing, pedal to mid caruso 1+ pitting edema, tender to palpation. Neurological: Patient awake, alert, oriented as noted, cognitive function intact; pupils equally reactive to light and accommodation, cranial nerves gross normal, moving all 4 extremities, no focal deficits, strength moderately to severely globally decreased. Psychiatric: Affect appears fatigued, ill-appearing, no acute evidence of depressive or anxiety feelings but does have underlying history. Results Lab / Micro Data 01/12/24 16:56 01/12/24 16:56 Labs: Laboratory Results - last 24 hr 01/12/24 16:56: WBC 15.3 H, RBC 4.00 L, Hgb 11.4 L, Hct 35.9 L, MCV 89.8, MCH 28.5, MCHC 31.8 L, RDW Std Deviation 47.8 H, RDW Coeff of Sidra 14.7 H, Plt Count 95 L, MPV 10.9, Immature Gran % (Auto) 1.100 H, Neut % (Auto) 87.8 H, Lymph % (Auto) 6.8 L, Gila % (Auto) 4.0, Eos % (Auto) 0.1, Baso % (Auto) 0.2, Absolute Neuts (auto) 13.5 H, Absolute Lymphs (auto) 1.04, Nucleated RBC % 0, Differential Comment SCANNED, Sodium 134 L, Potassium 4.8, Chloride 102, Carbon Dioxide 28.0, Anion Gap 5, BUN 11, Creatinine 1.48 H, Estim Creat Clear Calc 43.94, Est GFR (MDRD) Af Amer 45 L, Est GFR (MDRD) Non-Af 37 L, BUN/Creatinine Ratio 7.4 L, Glucose 183 H, Lactic Acid 1.6, Calcium 8.5, Total Bilirubin 0.80, Direct Bilirubin 0.18, AST 30, ALT 24, Alkaline Phosphatase 206 H, Troponin I High Sens 13, B-Natriuretic Peptide 144.1 H, Total Protein 6.6, Albumin 2.3 L, Globulin 4.3 H 01/12/24 17:45: Urine Color Joan, Urine Clarity Clear, Urine pH 7.0, Ur Specific [place] 1.010, Urine Protein 500 H, Urine Glucose (UA) Normal, Urine Ketones Negative, Urine Occult Blood 150 H, Urine Nitrite Negative, Urine Bilirubin Negative, Urine Urobilinogen 1 H, Ur Leukocyte Esterase 25 H, Urine RBC > 100 SEEN, Urine WBC 5-10 SEEN, Ur Squamous Epith Cells 10-25 SEEN, Urine Bacteria 2+, Urine Mucus 0 SEEN Micro: Microbiology 01/12/24 17:02 Mucosa - Nose SARS-CoV-2, Influenza & RSV (PCR) - Final Imaging Radiology Impression Chest X-Ray 01/12/24 17:30 IMPRESSION: Small right pleural effusion and mild right basilar atelectasis Electronically Signed: Kirt Ruff MD at 17:55 EDT Reading Location ID and State: [facility] / [place] Tel , Service support , Assessment & Plan Assessment/Plan (1) Hypoxia: PLAN: Plan The patient is a 68 y/o F w/ PMHx: Chronic migraines, Morbid obesity, HTN, HLD, Diabetes mellitus type II with chronic neuropathy, Chronic Thrombocytopenia unclear etiology, Anxiety and Depression, Allergic Rhinitis, Hypothyroidism, CKD stage III unclear subtype, Former tobacco use who presents to the [facility] ED on 01/12/24 with history of dyspnea worsening over the last few days recently discharged from [facility] with reportedly pneumonia but unclear organism more notable with exertion not normally using oxygen however given her fatigue and malaise as well as dyspnea prompted EMS call who noted that she was hypoxic upon initial evaluation prompting ED evaluation. #1. Acute Hypoxia secondary to Recently Diagnosed Pneumonia, unclear organism and unclear location with suspected Acute on Chronic COPD Exacerbation, presumed CAP and Questionable HF exacerbation (concern per ED): Will admit to MS, maintain on oxygen with wean as tolerated to room air, continue ATC duonebs, PRN albuterol, maintained on IV Rocephin and Azithromycin pending further evaluation as noted, will maintain on IV solumedrol, HOB, IS parameters w/ pending sputum cultures, full respiratory viral panel, procalcitonin and urine antigens. Bld cx x 2 obtained in the ED. BNP is only minimally elevated however to be cautious given no recent fevers or chills with history especially procalcitonin is normal would obtain echocardiogram, magnesium, TSH and cycle cardiac enzymes. Patient was already pulsed dosed with Lasix in the ED and will temporally hold on any further as unclear if this truly could be overload but potentially patient did receive aggressive hydration at [facility] certainly could be a component. PT/OT/case management consultation for discharge planning. #2. Questionable Acute Complicated Urinary Tract Infection with associated hematuria, microscopic on urinalysis: UA upon ED evaluation remarkable however it is a poor sample with 10-25 squamous epithelial cells thus will request repeat with straight cath and will request urine culture from this specific sample, in the interim will monitor I/Os, continue IV Rocephin w/ transition as able pending sensitivities and speciation. Bld cx x 2 obtained in the ED. #3. Normocytic anemia, unclear chronicity, appears new but no notable lab trending apparent: Admission CBC with hemoglobin 11.4, MCV 89.8, baseline noted previously remotely 06/20/22 hemoglobin 15.3, will continue to trend CBC and further investigate pending further trending. #4. Diabetes mellitus type II with chronic neuropathy: Hold oral home regimen, continue home insulin regimen, ADA diet, accu checks w/ ISS, continue home gabapentin regimen. #5. Chronic thrombocytopenia: Admission platelets 95, previous 113, unclear etiology, continue to trend CBC. #6. Chronic Kidney Disease Stage III, unclear subtype: Admission BUN/Cr 02/09.48, GFR 37, baseline renal function noted prior 1.14 however this is remote on 06/20/22, repeat BMP in AM to further elucidate. #7. Anxiety and Depression: We will continue patient home citalopram and trazodone nightly regimen. #8. Allergic rhinitis: We will continue patient home montelukast regimen. #9. Former tobacco use: Encourage continued tobacco cessation. #10. Hypothyroidism: Continue home synthroid regimen. #11. Morbid Obesity: Weight loss and lifestyle changes encouraged. #12. DVT prophylaxis: SCDs, will hold chemoprophylaxis concepts given noted hematuria. #13. CODE status: Patient HCPOA and living will are not in place but she notes her sister would be her medical decision-maker if necessary. Discussed CODE status at length including difference between FULL code, DNR-CCA and DNR-CC status. Following discussions about the differences in these status, requested Full Code status. Advanced Care Planning Face to Face Time: 16 minutes. Charges/Coding Visit Charges Inpatient E&M: 05654 Init Hosp L3 Procedures Hospitalists Procedures: 41086 Advncd Care Plan 30 Min
[2024-01-12 19:36] LABS: Troponin-I HS 15 pg/mL (3.0-54.0)
[2024-01-12 19:59] LABS: Bacteria 0 SEEN /hpf (None Seen); Mucous, Urine 0 SEEN /hpf (<or=2+); Red Blood Cells-Urine 0 SEEN /hpf (0-5)
[2024-01-12 20:18] LABS: Magnesium 1.6 mg/dL (1.6-2.6)
--- OUTSIDE RECORDS SUMMARY | 2024-01-12 20:18 | XMS RPT_ITS ---
Drug Name: loratadine 10 mg oral tablet Instructions: 1 tab(s) orally once a day Drug Name: magnesium oxide 400 mg oral tablet Instructions: 1 tab(s) orally once a day Drug Name: omeprazole 40 mg oral delayed release capsule Instructions: 1 cap(s) orally once a day Drug Name: potassium chloride 10 mEq oral capsule, extended release Instructions: 1 cap(s) orally 2 times a day Drug Name: sertraline 50 mg oral tablet Instructions: 1 tab(s) orally once a day Drug Name: Advair HFA 230 mcg-21 mcg/inh inhalation aerosol Instructions: 2 puff(s) inhaled 2 times a day Drug Name: ibuprofen 600 mg oral tablet Instructions: 1 tab(s) orally every 6 hours, As Needed Drug Name: DuoNeb 0.5 mg-2.5 mg/3 mL inhalation solution Instructions: 3 milliliter(s) inhaled every 6 hours, As Needed Drug Name: Lantus 100 units/mL subcutaneous solution Instructions: 60 unit(s) subcutaneous once a day (at bedtime) Drug Name: montelukast 10 mg oral tablet Instructions: 1 tab(s) orally once a day (at bedtime) Drug Name: Ozempic (1 mg dose) Instructions: 1 milligram(s) subcutaneous once a week on Tuesday Drug Name: Spiriva HandiHaler 18 mcg inhalation capsule Instructions: 1 cap(s) inhaled once a day (in the evening) Drug Name: traZODone 100 mg oral tablet Inst (more content not included)... Normal [facility] XR Elbow 3 Views Normal [facility] Work Phone: XR Knee 4 Views Normal [facility] Work Phone: XR Pelvis and Hip - left 2 Views Normal [facility] Work Phone: Risk Screen - Adult Emergenc yon 04-01-2022 Risk Screen - Adult Emergency Preferred Language: Preferred Language: Preferred Language for Discussing Health Care (patient/designee)Ap yee Patient Preferred Pharmacy: Patient Preferred Pharmacy Statement: I have reviewed and updated the patient's preferred pharmacy selection for today's visit. Advanced Directives: Advance Directive/DNRno Family Violence Adult: Abuse Screen: Are you or have you been threatened or abused physically, emotionally, or sexually by anyoneno Learning Assessment (Patient): Learning Assessment (Patient): Patient is Able to be Assessed for Learningyes Factors Influencing Readiness to Learnacuteness of illness Factors that Impact Ability to Learnnone Devices/Methods Used to Communicatenone Learning Preferencesaudio Cultural Considerationsnone Developmental Considerationsnone Pentecostal Considerationsnone Learning Assessment (Other Learner): Learning Assessment (Other Learner): Other learner availableno Pressure Injury/TB/Substance: Pressure Injury: Do you have a coughno Smoking Statusmoderate user (uses 11-30 cig/day, OR 0.5-1.5 ppd, OR 2-3 cans/pouches loose leaf tobacco per week, OR 0.5-1.5 vape pods per day) Tobacco Cessation Education (provide if tobacco use within the last 12 mos) patient declined Alcohol Usedenies Drug Usedenies Admission Risk Screen: Significant IndicatorsComplete CAGE: CAGE: Is this an injured patient at a Trauma Center ([facility]/[place]/[facility]/[place]): no Electronic Signatures: Nicole Schmidt (RN) (Signed 01-Apr-2022 07:58) Authored: Preferred Language, Patient Preferred Pharmacy, Advanced Directives, Family Violence Adult, Learning Assessment (Patient), Learning Assessment (Other Learner), Pressure Injury/TB/Substance, Pressure Injury, CAGE Last Updated: 01-Apr-2022 07:58 by Nicole Schmidt (PANDA) Merged With [facility] Triage - EDon 04-01-2022 Triage - ED Chart Review: ARRIVAL INFORMATION Mode of Arrival: ambulance Agency Name: [place] CHIEF COMPLAINT JANELLE PICKETT is a Female patient with a chief complaint of fall (reports tripping falling down 3 steps into a tree off a deck, denies LOC, neck or back pain reports left elbow, hip and knee pain). Triage Date/Time: 01-Apr-2022 07:51 JOSE: 3 Pain Rating (0-10): 8 = Severe Pain location: left knee hip elbow Vital Signs: Temperature: 97.8F ( 36.5C) Blood Pressure: 164/76 Mean: Heart Rate: 73 Respiratory Rate: 18 Pulse Oximetry: 95% on room air, no respiratory support. Height: 5 feet 2.00 inches. 157.4 CM Weight: 220.4 pounds. Calculated 100.0 kg. Calculated BMI (kg/m2): 40.363 Calculated BSA (m2) 2.09 Michael Coma Scale: Best Eye Response: (E4) spontaneous Best Motor Response: (M6) obeys commands Best Verbal Response: (V5) oriented [place] Score: 15 Allergies: yes Patient has homicidal thoughts: no Risk Screens Suicide Risk Screen In the Past Month: Have you wished you were or wished you could go to sleep and not wake up no In the Past Month: Have you had any actual thoughts of killing yourself no In Your Lifetime: Have you ever done anything, started to do anything, or prepared to do anything to end your life no Antoine Fall Scale Screening Has the patient fallen before (or is the patient in the ED as a result of a fall) has had a fall Does the patient have an impaired gait does not have impaired gait Is the patient cognitively impaired not cognitively impaired Antoine Fall Scale History of falling (immediate or previous) yes (25) Secondary Diagnosis yes (15) Intravenous Therapy/ Heparin/Saline Lock no (0) Gait/Transferring normal/bedrest/wheelc hair (0) Ambulatory Aids none/bedrest/nurse assist (0) Mental Status oriented to own ability (0) Antoine Fall Risk Score: 40 Interventions: Antoine Fall Interventions: MODERATE INTERVENTIONS: *Low Interventions Plus: * falls risk band/sticker applied to patient, *yellow non-skid footwear, *instruct to call for assistance before getting out of bed, *bed/chair/bedside commode/toilet alarms, *sensory devices/ambulatory aides available and in reach, *medications reviewed for potential side effects and care planning. TRAVEL HISTORY Travel History Coronavirus Screening: no exposure or symptoms Travel Exposure History: NO travel to International locations in the past 30 days PAIN Pain Scale Used: RADHA Pain Rating (0-10): 8 = Severe Past Medical History: Past Medical History Reviewedyes Electronic Signatures: Nicole Schmidt (PANDA) (Signed 01-Apr-2022 07:59) Authored: Quick Triage, Risk Screens, Pain, Travel History, Chart Review, Scores, Past Medical History Last Updated: 01-Apr-2022 07:59 by Nicole Schmidt) [facility] 01-25-2022 XR Thoracic spine AP and Lateral Normal [facility] Work Phone: THORACIC SPINE AP/LATon 01-09 THORACIC SPINE AP/LAT Patient Name: JANELLE PICKETT STUDY: THORACIC SPINE AP/LAT INDICATION: upper back pain M79.10: Myalgia. COMPARISON: None ACCESSION NUMBER(S): [id number] ORDERING CLINICIAN: KELLY CARRASCO FINDINGS: Moderate multilevel diffuse thoracic degenerative change. Alignment normal. No fracture or lesion. IMPRESSION: Moderate thoracic degenerative changes. No acute findings. 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 : upper back pain Provider Impressions Patient is a 66-year-old female with a past medical history sent for lumbar spondylosis, new thoracic back pain, and myalgia. At this time her lower back pain is not a bother to her. She states that her upper back pain is what is bothersome to her. We discussed different options. She refuses to do any therapy at this time. She states that she does not like it . We discussed some OTC options as well as obtaining a thoracic x-ray to further evaluate the area. Patient is going to pursue these things. She is going to follow-up in a few weeks to see if the pain resolves. Otherwise she will call the clinic if necessary. OARRS reviewed. Chief Complaint Back Pain FUV FIRST MEDIAL BRANCH BLOCK, BILATERAL L4-S1. PATIENT STATES SHE WENT HOME AND ATTEMPTED TO RECREATE HER PAIN BY WALKING AND DOING LEG EXERCISES. SHE STATES SHE HAD LESS PAIN THAN SHE NORMALLY DOES WHILE DOING THESE ACTIVITIES- 15-20% REDUCTION IN PAIN. PATIENT STATES HER PAIN IS WORSE WHEN SHE STANDS FOR LONG PERIODS OF TIME, WALKS AND DOES ADL'S. SHE TRIES TO APPLY ICE, REPOSITIONS FOR RELIEF AND TAKES MEDICATION PRESCRIBED. SHE WOULD LIKE THE REFILLS SENT TO [facility]. SHE DENIES CANE OR WALKER, TYRE FITTER OR MASSAGES. PATIENT STATES THAT SHE HAS PINCHES (PINS AND NEEDLES) ALL OVER. PAIN SCORE 8/10 TODAY. ETOH NEGATIVE. Adult Risk Screening Living Will. Living Will: No living will on file. Healthcare POA: No healthcare proxy on file. Depression/Suicide Screening: During the past 2 weeks, the patient has not felt down, depressed or hopeless. During the past 2 weeks, the patient has not felt little interest or pleasure in doing things. She does not have a risk of suicide. She has not had thoughts of harming others. Single alcohol screening question: In the past year the patient has had 5 or more drinks (men) or 4 or more drinks (women)? 0 time(s). History of Present Illness On a scale of 0 to 10, the patient rates the pain at 8. Pain Location: Upper Back Pain. Pain Quality: Cramping, Shooting and CRAMPING WITH INTERMITTENT SHOOTING PAIN. Pain Radiation: LEFT POSTERIOR SHOULDER. Sensory/ Motor: Pins and [place] and ALL OVER PER PATIENT. Timing/Duration: Constant and > 12 weeks duration. Exacerbating Factors: standing and weightbearing. Alleviating Factors: Cold Therapy, Exercise, Medications, Repositioning. 24 Hour Behavior: Symptoms are the same in the am. Symptoms are the same as the day progresses. Symptoms are the same in the pm. Symptoms are better lying down. Patient is a 66-year-old female. She presents today for follow-up after undergoing bilateral L4-5 and L5-S1 facet medial branch block. She states that at this time this is not a bother to her. She states gave her 20% pain relief but then states that she does not have any pain in her lower back. She states that today her pain is in between her shoulder blades. She states that it started few weeks ago. She has not yet done anything for it other than take the muscle relaxer. She rates it an 8/10. At this time, she continues on methocarbamol which she tolerates well and it helps her as well as the gabapentin. She states that if she could just get her upper back pain better under control she would be feeling really well. She is better able to do the things she wants to do. Unfortunate, standing a lot and doing a lot of physical activity does cause some upper back pain. She is on methocarbamol given by our services. She tolerates this better than the Flexeril and states that it does help her. She also gets gabapentin from her primary care physician Review of Systems 13 systems all normal except noted in HP. 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, unspecified back pain laterality (724.2,724.3,338.29) (M54.42,G89.29) Cirrhosis of liver (571.5) (K74.60) she thinks sh has fatty liver COPD (chronic obstructive pulmonary disease) (496) (J44.9) Degenerative lumbar spinal stenosis (724.02) (M48.061) Depression (311) (F32.A) Diabetes (250.00) (E11.9) Kidney insufficiency (593.9) (N28.9) Lumbar radiculopathy, chronic (724.4) (M54.16) Myalgia (729.1) (M79.10) Pain of left lower extremity (729.5) (M79.605) Surgical History History of Medial branch block Managed By: Miguel Angelo (Pain Medicine) Bilat L4-S1 MBB History of Oophorectomy Family History Family history of mal (more content not included)... Normal [employer] No Panel Informationon 12-25 Please click on the link to view the study images Normal [facility] Work Phone: MRI L Spine without Contrast on 11-19-2021 MR Lumbar spine WO contrast Normal [facility] Work Phone: No Panel Informationon 11-16 Normal [facility] Work Phone: VASC LAB Venous Duplex Ultra sound for DVTon 10-02-2021 VASC LAB Venous Duplex Ultrasound for DVT [facility] Work Phone: Tobacco Screening.on 022 Tobacco use status CPHS a) Yes [facility] Work Phone: Beta Hydroxybutyrate, Serumo n 09-22-2021 Beta hydroxybutyrate [Mass or moles/Vol] 0.10 mmol/L See Below [facility] Work Phone: Comment on above: Reference Range: 0.0 2 - 0.27 The beta-hydroxybutyrate test performance characteristics have been validated by [facility] laboratory. This test has not been approved by the FDA; however, such approval is not necessary. Complete Blood Count + Diffe maurion 09-22-2021 Basophils/100 WBC (Bld) 0.5 % 0.0 - 2.0 [facility] Work Phone: Erythrocyte distribution width (RBC) [Ratio] 13.9 % See Below [facility] Work Phone: Comment on above: Reference Range: 11. 5 - 14.5 Hematocrit (Bld) [Volume fraction] 37.9 % See Below [facility] Work Phone: Comment on above: Reference Range: 36. 0 - 46.0 Hemoglobin (Bld) [Mass/Vol] 13.4 g/dL See Below [facility] Work Phone: Comment on above: Reference Range: 12. 0 - 16.0 Lymphocytes/100 WBC (Bld) 17.3 % See Below [facility] Work Phone: Comment on above: Reference Range: 13. 0 - 44.0 MCHC (RBC) [Mass/Vol] 35.4 g/dL See Below [facility] 300 Work Phone: Comment on above: Reference Range: 32. 0 - 36.0 MCV (RBC) [Entitic vol] 87 fL 80 - 100 [facility] 300 Work Phone: Monocytes/100 WBC (Bld) 5.7 % 2.0 - 10.0 [facility] 300 Work Phone: Neutrophils/100 WBC (Bld) 76.2 % See Below [facility] Work Phone: Comment on above: Reference Range: 40. 0 - 80.0 Platelets (Bld) [#/Vol] 92 10*3/uL below low threshold 150 - 450 [facility] 300 Work Phone: RBC (Bld) [#/Vol] 4.36 {x10E12/L} See Below [facility] Work Phone: Comment on above: Reference Range: 4.0 0 - 5.20 WBC (Bld) [#/Vol] 8.4 10*3/uL 4.4 - 11.3 [facility] Work Phone: Complete Blood Count + Differential 0.00 {x10E9/L} See Below [facility] Work Phone: Comment on above: Reference Range: 0.0 0 - 0.10 Reference Range: 0.0 0 - 0.70 Complete Blood Count + Differential 0.50 {x10E9/L} See Below [facility] Work Phone: Comment on above: Reference Range: 0.1 0 - 1.00 Complete Blood Count + Differential 1.40 {x10E9/L} See Below [facility] 300 Work Phone: Comment on above: Reference Range: 1.2 0 - 4.80 Complete Blood Count + Differential 6.40 {x10E9/L} See Below [facility] 300 Work Phone: Comment on above: Reference Range: 1.2 0 - 7.70 Percent differential counts (%) should be interpreted in the context of the absolute cell counts (cells/L). Complete Blood Count + Differential 0.3 % 0.0 - 6.0 [facility] 300 Work Phone: Laboratory - Chemistry and C hemistry - challengeon 09-22-2021 Glucose [Mass/Vol] 268 mg/dL above high threshold 74 - 99 [facility] 300 Work Phone: Glucose [Mass/Vol] 309 mg/dL above high threshold 74 - 99 [facility] 300 Work Phone: Base excess Calc (BldV) [Moles/Vol] 2.7 mmol/L -2.0 - 3.0 [facility] 300 Work Phone: CO2 (BldV) [Partial pressure] 36 mm[Hg] below low threshold 41 - 51 [facility] 300 Work Phone: HCO3 (Bld) [Moles/Vol] 26.2 mmol/L above hig h threshold See Below [facility] Work Phone: Comment on above: Reference Range: 22. 0 - 26.0 Oxygen (BldV) [Partial pressure] 48 mm[Hg] above high threshold 35 - 45 [facility] 300 Work Phone: Oxyhemoglobin (BldV) [Mass fraction] 79.0 % above high threshold See Below [facility] 300 Work Phone: Comment on above: Reference Range: 45. 0 - 75.0 pH (BldV) 7.47 [pH] above high threshold See Below [facility] 300 Work Phone: Comment on above: Reference Range: 7.3 3 - 7.43 Albumin BCP dye [Mass/Vol] 2.9 g/dL below low threshold 3.4 - 5.0 [facility] 300 Work Phone: ALP [Catalytic activity/Vol] 125 U/L 33 - 136 [facility] Work Phone: ALT With P-5'-P [Catalytic activity/Vol] 59 U/L above high threshold 7 - 45 [facility] Work Phone: Comment on above: Patients treated wit h Sulfasalazine may generate falsely decreased results for ALT. Anion gap [Moles/Vol] 10 mmol/L 10 - 20 [facility] 300 Work Phone: AST With P-5'-P [Catalytic activity/Vol] 31 U/L 9 - 39 [facility] Work Phone: Bilirubin [Mass/Vol] 0.3 mg/dL 0.0 - 1.2 [facility] 300 Work Phone: Calcium [Mass/Vol] 8.1 mg/dL below low threshold 8.6 - 10.3 [facility] Work Phone: Chloride [Moles/Vol] 99 mmol/L 98 - 107 [facility] 300 Work Phone: CO2 [Moles/Vol] 26 mmol/L 21 - 32 [facility] 300 Work Phone: Creatinine [Mass/Vol] 1.23 mg/dL above high threshold See Below [facility] Work Phone: Comment on above: Reference Range: 0.5 0 - 1.05 Glucose [Mass/Vol] 372 mg/dL above high threshold 74 - 99 [facility] Work Phone: Potassium [Moles/Vol] 3.5 mmol/L 3.5 - 5.3 [facility] Work Phone: Protein [Mass/Vol] 5.2 g/dL below low threshold 6.4 - 8.2 [facility] Work Phone: Sodium [Moles/Vol] 131 mmol/L below low threshold 136 - 145 [facility] Work Phone: Urea nitrogen [Mass/Vol] 25 mg/dL above high threshold 6 - 23 [facility] Work Phone: Magnesium, Serumon 2 Magnesium [Mass/Vol] 1.46 mg/dL below low threshold See Below [facility] Work Phone: Comment on above: Reference Range: 1.6 0 - 2.40 No Panel Informationon 09-22 [email or web address]?PatientI [id number]&Date=&Time=[email or web address] a45%3a00&TestType=ECG &Site=14&OutputType=P DF&Ext=PDF -[facility] Work Phone: Please see physicia n note for formal interpretation confirmed by Scribe [facility] Work Phone: Normal -[facility] Work Phone: [phone] [facility] Work Phone: [phone] [facility] Work Phone: [phone] [facility] Work Phone: 160 1 [facility] Work Phone: [phone] [facility] Work Phone: 13 1 [facility] Work Phone: 29 1 [facility] Work Phone: 26 1 [facility] 300 Work Phone: [phone] [facility] 300 Work Phone: [phone] [facility] 300 Work Phone: [phone] [facility] 300 Work Phone: [phone] [facility] 300 Work Phone: [phone] [facility] 300 Work Phone: [phone] [facility] 300 Work Phone: 49 {mL/min/1.73m2} Abnormal >90 [facility] Work Phone: Comment on above: CALCULATIONS OF ROXANN MATED GFR ARE PERFORMED USING THE 2020 CKD-EPI STUDY REFIT EQUATION WITHOUT THE RACE VARIABLE FOR THE IDMS-TRACEABLE CREATININE METHODS.[email or web address] Radiologyon 09-22-2021 XR Chest Single view Normal [facility] 300 Work Phone: TROPONIN I, HIGH SENSITIVITY on 09-22-2021 Tropinin I.cardiac panel High sensitivity method 24 ng/L above high threshold 0 - 13 [facility] Work Phone: Comment on above: .Less than 99th perc entile of normal range cutoff-Female and children under 18 years old <14 ng/L; Male <21 ng/L: NegativeRepeat testing should be performed if clinically indicated. .Female and children under 18 years old 14-50 ng/L; Male 21-50 ng/L:Consistent with possible cardiac damage and possible increased clinical risk. Serial measurements may help to assess extent of myocardial damage. .>50 ng/L: Consistent with cardiac damage, increased clinical risk andmyocardial infarction. Serial measurements may help assess extent of myocardial damage. . NOTE: Children less than 1 year old may have higher baseline troponin levels and results should be interpreted in conjunction with the overall clinical context. .NOTE: Troponin I testing is performed using a different testing methodology at [facility] than at other [facility] hospitals. Direct result comparisons should only be made within the same method. Tropinin I.cardiac panel High sensitivity method 24 ng/L above high threshold 0 - 13 [facility] Work Phone: Comment on above: .Less than 99th perc entile of normal range cutoff-Female and children under 18 years old <14 ng/L; Male <21 ng/L: NegativeRepeat testing should be performed if clinically indicated. .Female and children under 18 years old 14-50 ng/L; Male 21-50 ng/L:Consistent with possible cardiac damage and possible increased clinical risk. Serial measurements may help to assess extent of myocardial damage. .>50 ng/L: Consistent with cardiac damage, increased clinical risk andmyocardial infarction. Serial measurements may help assess extent of myocardial damage. . NOTE: Children less than 1 year old may have higher baseline troponin levels and results should be interpreted in conjunction with the overall clinical context. .NOTE: Troponin I testing is performed using a different testing methodology at [facility] than at other [place] [facility]. Direct result comparisons should only be made within the same method. URINALYSIS WITH CULTURE IF I NDICATEDon 09-22-2021 Color (U) Yellow See Below [facility] 300 Work Phone: Comment on above: Reference Range: STR AW,YELLOW Glucose Ql (U) >=500(3+) Abnormal NEGATIVE -[facility] Work Phone: Ketones Ql (U) Negative NEGATIVE [facility] 300 Work Phone: Leukocyte esterase Test strip Ql (U) Negative NEGATIVE [facility] 300 Work Phone: pH (U) 5.0 [pH] 5.0 - 8.0 -[facility] 300 Work Phone: Protein (U) [Mass/Vol] 100(2+) Abnormal NEGATIVE -[facility] 300 Work Phone: RBC (U) [#/Vol] MODERATE(2+) Abnormal NEGATIVE -[facility] 300 Work Phone: Specific gravity (U) [Rel density] 1.015 1 See Below -[facility] 300 Work Phone: Comment on above: Reference Range: 1.0 05 - 1.035 URINALYSIS WITH CULTURE IF INDICATED Negative NEGATIVE [facility] 300 Work Phone: URINALYSIS WITH CULTURE IF INDICATED <2.0 0.0 - 1.9 [facility] 300 Work Phone: URINALYSIS WITH CULTURE IF INDICATED HAZY CLEAR -[facility] 300 Work Phone: Urinalysis, Microscopicon Urinalysis, Microscopic 1+ [facility] 300 Work Phone: Urinalysis, Microscopic PRESENT Abnormal -[facility] 300 Work Phone: Urinalysis, Microscopic 7 {/HPF} -[facility] 300 Work Phone: Urinalysis, Microscopic 4 {/HPF} 0-5 -[facility] 300 Work Phone: Urinalysis, Microscopic None 0-5 [facility] 300 Work Phone: Vital signson 09-22-2021 Oxygen saturation in Venous blood 88 % above high threshold 45 - 75 [facility] 300 Work Phone: Tobacco Screening.on 022 Fall risk assessment b) One or more fall s in the last year [facility] 300 Work Phone: Tobacco use status CPHS a) Yes -[facility] 300 Work Phone: Tobacco Screening.on 022 Fall risk assessment b) One or more fall s in the last year [facility] 300 Work Phone: Tobacco use status CPHS a) Yes [facility] 300 Work Phone: C Reactive Protein, Serumon 09-10-2021 CRP [Mass/Vol] 0.19 mg/dL [facility] 300 Work Phone: Comment on above: REF VALUE< 1.00 Complete Blood Count + Diffe rentialon 09-10-2021 Basophils/100 WBC (Bld) 0.3 % 0.0 - 2.0 [facility] 300 Work Phone: Erythrocyte distribution width (RBC) [Ratio] 14.9 % above high threshold See Below [facility] 300 Work Phone: Comment on above: Reference Range: 11. 5 - 14.5 Hematocrit (Bld) [Volume fraction] 44.1 % See Below [facility] 300 Work Phone: Comment on above: Reference Range: 36. 0 - 46.0 Hemoglobin (Bld) [Mass/Vol] 15.4 g/dL See Below [facility] 300 Work Phone: Comment on above: Reference Range: 12. 0 - 16.0 Lymphocytes/100 WBC (Bld) 31.6 % See Below [facility] 300 Work Phone: Comment on above: Reference Range: 13. 0 - 44.0 MCHC (RBC) [Mass/Vol] 34.9 g/dL See Below [facility] 300 Work Phone: Comment on above: Reference Range: 32. 0 - 36.0 MCV (RBC) [Entitic vol] 89 fL 80 - 100 [facility] 300 Work Phone: Monocytes/100 WBC (Bld) 5.0 % 2.0 - 10.0 [facility] 300 Work Phone: Neutrophils/100 WBC (Bld) 62.4 % See Below [facility] 300 Work Phone: Comment on above: Reference Range: 40. 0 - 80.0 Platelets (Bld) [#/Vol] 150 10*3/uL 150 - 450 [facility] 300 Work Phone: RBC (Bld) [#/Vol] 4.99 {x10E12/L} See Below [facility] 300 Work Phone: Comment on above: Reference Range: 4.0 0 - 5.20 WBC (Bld) [#/Vol] 9.9 10*3/uL 4.4 - 11.3 [facility] 300 Work Phone: Complete Blood Count + Differential 0.00 {x10E9/L} See Below [facility] 300 Work Phone: Comment on above: Reference Range: 0.0 0 - 0.10 Complete Blood Count + Differential 0.10 {x10E9/L} See Below [facility] 300 Work Phone: Comment on above: Reference Range: 0.0 0 - 0.70 Complete Blood Count + Differential 0.50 {x10E9/L} See Below [facility] 300 Work Phone: Comment on above: Reference Range: 0.1 0 - 1.00 Complete Blood Count + Differential 3.10 {x10E9/L} See Below [facility] 300 Work Phone: Comment on above: Reference Range: 1.2 0 - 4.80 Complete Blood Count + Differential 6.20 {x10E9/L} See Below [facility] 300 Work Phone: Comment on above: Reference Range: 1.2 0 - 7.70 Percent differential counts (%) should be interpreted in the context of the absolute cell counts (cells/L). Complete Blood Count + Differential 0.7 % 0.0 - 6.0 [facility] 300 Work Phone: Complete Blood Count + Differential 0.3 {/100_WBC} [facility] 300 Work Phone: Laboratory - Chemistry and C hemistry - challengeon 09-10-2021 Anion gap [Moles/Vol] 12 mmol/L 10 - 20 [facility] 300 Work Phone: Calcium [Mass/Vol] 9.7 mg/dL 8.6 - 10.3 [facility] 300 Work Phone: Chloride [Moles/Vol] 102 mmol/L 98 - 107 [facility] 300 Work Phone: CO2 [Moles/Vol] 26 mmol/L 21 - 32 [facility] 300 Work Phone: Creatinine [Mass/Vol] 1.24 mg/dL above high threshold See Below [facility] 300 Work Phone: Comment on above: Reference Range: 0.5 0 - 1.05 Glucose [Mass/Vol] 116 mg/dL above high threshold 74 - 99 [facility] 300 Work Phone: Potassium [Moles/Vol] 4.4 mmol/L 3.5 - 5.3 [facility] 300 Work Phone: Sodium [Moles/Vol] 136 mmol/L 136 - 145 [facility] 300 Work Phone: Urea nitrogen [Mass/Vol] 16 mg/dL 6 - 23 [facility] 300 Work Phone: No Panel Informationon 09-10 48 {mL/min/1.73m2} Abnormal >90 [facility] 300 Work Phone: Comment on above: CALCULATIONS OF ROXANN MATED GFR ARE PERFORMED USING THE 2020 CKD-EPI STUDY REFIT EQUATION WITHOUT THE RACE VARIABLE FOR THE IDMS-TRACEABLE CREATININE METHODS.https://jasn.asnjournals.org/content//A SN.0418461196 Sedimentation Rate, Erythroc yteon 09-10-2021 ESR (Bld) [Velocity] 19 mm/h 0 - [facility] Work Phone: Tobacco Screening.on 022 Fall risk assessment a) No falls within the last year [facility] 300 Work Phone: Tobacco use status CPHS a) Yes [facility] 300 Work Phone: Uric Acid, Serumon Urate [Mass/Vol] 6.4 mg/dL 2.3 - 6.7 [facility] 300 Work Phone: Comment on above: Venipuncture immedia tely after or during the administration of Metamizole may lead to falsely low results. Testing should be performed immediately prior to Metamizole dosing. Complete Blood Count + Diffe rentialon 09-01-2021 Basophils/100 WBC (Bld) 1.2 % 0.0 - 2.0 [facility] 300 Work Phone: Erythrocyte distribution width (RBC) [Ratio] 14.3 % See Below [facility] 300 Work Phone: Comment on above: Reference Range: 11. 5 - 14.5 Hematocrit (Bld) [Volume fraction] 41.8 % See Below [facility] 300 Work Phone: Comment on above: Reference Range: 36. 0 - 46.0 Hemoglobin (Bld) [Mass/Vol] 14.1 g/dL See Below [facility] 300 Work Phone: Comment on above: Reference Range: 12. 0 - 16.0 Lymphocytes/100 WBC (Bld) 29.0 % See Below [facility] 300 Work Phone: Comment on above: Reference Range: 13. 0 - 44.0 MCHC (RBC) [Mass/Vol] 33.6 g/dL See Below [facility] 300 Work Phone: Comment on above: Reference Range: 32. 0 - 36.0 MCV (RBC) [Entitic vol] 90 fL 80 - 100 [facility] 300 Work Phone: Monocytes/100 WBC (Bld) 5.3 % 2.0 - 10.0 [facility] 300 Work Phone: Neutrophils/100 WBC (Bld) 63.4 % See Below [facility] 300 Work Phone: Comment on above: Reference Range: 40. 0 - 80.0 Platelets (Bld) [#/Vol] 109 10*3/uL below low threshold 150 - 450 [facility] 300 Work Phone: RBC (Bld) [#/Vol] 4.65 {x10E12/L} See Below [facility] 300 Work Phone: Comment on above: Reference Range: 4.0 0 - 5.20 WBC (Bld) [#/Vol] 8.3 10*3/uL 4.4 - 11.3 [facility] 300 Work Phone: Complete Blood Count + Differential 0.10 {x10E9/L} See Below [facility] 300 Work Phone: Comment on above: Reference Range: 0.0 0 - 0.10 Reference Range: 0.0 0 - 0.70 Complete Blood Count + Differential 0.40 {x10E9/L} See Below [facility] 300 Work Phone: Comment on above: Reference Range: 0.1 0 - 1.00 Complete Blood Count + Differential 2.40 {x10E9/L} See Below [facility] 300 Work Phone: Comment on above: Reference Range: 1.2 0 - 4.80 Complete Blood Count + Differential 5.20 {x10E9/L} See Below [facility] 300 Work Phone: Comment on above: Reference Range: 1.2 0 - 7.70 Percent differential counts (%) should be interpreted in the context of the absolute cell counts (cells/L). Complete Blood Count + Differential 1.1 % 0.0 - 6.0 [facility] 300 Work Phone: Complete Blood Count + Differential 0.1 {/100_WBC} [facility] 300 Work Phone: Creatine Kinase, Levelon CK [Catalytic activity/Vol] 44 U/L 0 - 215 [facility] 300 Work Phone: Cult, Bloodon 09-01-2021 Bacteria identified Cx Nom (Bld) [facility] 300 Work Phone: Cult, Misc + smearon 022 Bacteria identified Cx Nom (Unsp spec) Abnormal [facility] 300 Work Phone: Laboratory - Chemistry and C hemistry - challengeon 09-01-2021 Albumin BCP dye [Mass/Vol] 3.7 g/dL 3.4 - 5.0 [facility] 300 Work Phone: ALP [Catalytic activity/Vol] 94 U/L 33 - 136 [facility] 300 Work Phone: ALT With P-5'-P [Catalytic activity/Vol] 13 U/L 7 - 45 [facility] 300 Work Phone: Comment on above: Patients treated wit h Sulfasalazine may generate falsely decreased results for ALT. Anion gap [Moles/Vol] 12 mmol/L 10 - 20 [facility] 300 Work Phone: AST With P-5'-P [Catalytic activity/Vol] 14 U/L 9 - 39 [facility] 300 Work Phone: Bilirubin [Mass/Vol] 0.3 mg/dL 0.0 - 1.2 [facility] 300 Work Phone: Calcium [Mass/Vol] 9.0 mg/dL 8.6 - 10.3 [facility] 300 Work Phone: Chloride [Moles/Vol] 101 mmol/L 98 - 107 [facility] 300 Work Phone: CO2 [Moles/Vol] 25 mmol/L 21 - 32 [facility] 300 Work Phone: Glucose [Mass/Vol] 222 mg/dL above high threshold 74 - 99 [facility] 300 Work Phone: Potassium [Moles/Vol] 4.0 mmol/L 3.5 - 5.3 [facility] 300 Work Phone: Protein [Mass/Vol] 7.0 g/dL 6.4 - 8.2 [facility] 300 Work Phone: Sodium [Moles/Vol] 134 mmol/L below low threshold 136 - 145 [facility] 300 Work Phone: Urea nitrogen [Mass/Vol] 13 mg/dL 6 - 23 [facility] 300 Work Phone: Lactate, Levelon 09-01-2021 Lactate [Moles/Vol] 1.7 mmol/L 0.4 - 2.0 [facility] 300 Work Phone: Comment on above: Venipuncture immedia tely after or during the administration of Metamizole may lead to falsely low results. Testing should be performed immediately prior to Metamizole dosing. Lipase, Serumon 09-01-2021 Lipase [Catalytic activity/Vol] 57 U/L 9 - 82 [facility] 300 Work Phone: Comment on above: Venipuncture immedia tely after or during the administration of Metamizole may lead to falsely low results. Testing should be performed immediately prior to Metamizole dosing. M-kbzayc-r-benzoquinone imine (metabolite of Acetaminophen) will generate erroneously low results in samples for patients that have taken toxic doses of acetaminophen. No Panel Informationon 09-01 52 {mL/min/1.73m2} Abnormal >90 [facility] 300 Work Phone: Comment on above: CALCULATIONS OF ROXANN MATED GFR ARE PERFORMED USING THE 2020 CKD-EPI STUDY REFIT EQUATION WITHOUT THE RACE VARIABLE FOR THE IDMS-TRACEABLE CREATININE METHODS.https://jasn.asnjournals.org/content//A SN.5710508357 501 {ng/mL_FEU} Abnormal < or = 500 [facility] 300 Work Phone: Comment on above: The VTE Exclusion D- Dimer assay is reported in ng/mL Fibrinogen Equivalent Units (FEU). Per manufacturers instructions for use, a value of less than 500 ng/mL (FEU) may help to exclude DVT or PE in outpatients when the assay is used with a clinical pretest probability assessment. ([facility] must utilize and document eCalc Wells Score Deep Vein Thrombosis Risk for DVT exclusion only; Emergency Department should utilize Guidelines for Emergency Department Use of the VTE Exclusion D-Dimer and Clinical Pretest probability assessment model for DVT or PE exclusion.) [email or web address]:8080/musescripts/m useweb.dll?RetrieveTe stByDateTime?PatientI [id number]&Date=&Time=17%3a31%3 a55%3a00&TestType=ECG &Site=14&OutputType=P DF&Ext=PDF [facility] 300 Work Phone: Please see physicia n note for formal interpretation confirmed by Scribe [facility] 300 Work Phone: Normal [facility] 300 Work Phone: [phone] [facility] 300 Work Phone: [phone] [facility] 300 Work Phone: [phone] [facility] 300 Work Phone: [phone] [facility] 300 Work Phone: [phone] [facility] 300 Work Phone: 14 1 [facility] 300 Work Phone: 44 1 [facility] 300 Work Phone: -9 1 [facility] 300 Work Phone: 41 1 [facility] 300 Work Phone: [phone] [facility] 300 Work Phone: [phone] [facility] 300 Work Phone: 64 1 [facility] 300 Work Phone: [phone] 1 [facility] 300 Work Phone: 81 1 [facility] 300 Work Phone: Radiologyon 09-01-2021 XR Knee 4 Views Normal [facility] 300 Work Phone: XR Chest Single view Normal [facility] 300 Work Phone: TROPONIN I, HIGH SENSITIVITY on 09-01-2021 Tropinin I.cardiac panel High sensitivity method 4 ng/L 0 - 13 [facility] 300 Work Phone: Comment on above: .Less than 99th perc entile of normal range cutoff-Female and children under 18 years old <14 ng/L; Male <21 ng/L: NegativeRepeat testing should be performed if clinically indicated. .Female and children under 18 years old 14-50 ng/L; Male 21-50 ng/L:Consistent with possible cardiac damage and possible increased clinical risk. Serial measurements may help to assess extent of myocardial damage. .>50 ng/L: Consistent with cardiac damage, increased clinical risk andmyocardial infarction. Serial measurements may help assess extent of myocardial damage. . NOTE: Children less than 1 year old may have higher baseline troponin levels and results should be interpreted in conjunction with the overall clinical context. .NOTE: Troponin I testing is performed using a different testing methodology at [facility] than at other [place] [facility]. Direct result comparisons should only be made within the same method. URINALYSIS WITH CULTURE IF I NDICATEDon 09-01-2021 Color (U) Yellow See Below -[facility] 300 Work Phone: Comment on above: Reference Range: STR AW,YELLOW Glucose Ql (U) Negative NEGATIVE [facility] 300 Work Phone: Ketones Ql (U) Negative NEGATIVE [facility] 300 Work Phone: Leukocyte esterase Test strip Ql (U) Negative NEGATIVE [facility] 300 Work Phone: pH (U) 6.0 [pH] 5.0 - 8.0 [facility] 300 Work Phone: Protein (U) [Mass/Vol] 100(2+) Abnormal NEGATIVE [facility] 300 Work Phone: RBC (U) [#/Vol] MODERATE(2+) Abnormal NEGATIVE [facility] 300 Work Phone: Specific gravity (U) [Rel density] 1.016 1 See Below -[facility] 300 Work Phone: Comment on above: Reference Range: 1.0 05 - 1.035 URINALYSIS WITH CULTURE IF INDICATED Negative NEGATIVE [facility] 300 Work Phone: URINALYSIS WITH CULTURE IF INDICATED <2.0 0.0 - 1.9 [facility] 300 Work Phone: URINALYSIS WITH CULTURE IF INDICATED HAZY CLEAR [facility] 300 Work Phone: Urinalysis, Microscopicon Urinalysis, Microscopic 1+ Abnormal [facility] 300 Work Phone: Urinalysis, Microscopic 6 {/HPF} [facility] 300 Work Phone: Urinalysis, Microscopic 21 {/HPF} Abnormal 0-5 [facility] 300 Work Phone: Urinalysis, Microscopic 2 {/HPF} 0-5 [facility] 300 Work Phone: VR Sacroiliac Injectionon Please see OpNote in Notes tab for results. [facility] Radiology Study observation (narrative) [facility] VR Sacroiliac InjectionOrder ed By: Radiologist Generic on 01-08-2021 [facility] CV IR INJECTION SACROILIACon 12-25-2020 CV IR INJECTION SACROILIAC Please see OpNote in Notes tab for results. Please see OpNote in Notes tab for results. Please see OpNote in Notes tab for results. [facility] VR Sacroiliac InjectionOrder ed By: Ryley Angelo on 11-20-2020 Please see OpNote in Notes tab for results. [facility] CV IR INJECTION SACROILIACon 11-10-2020 CV IR INJECTION SACROILIAC Please see OpNote in Notes tab for results. Please see OpNote in Notes tab for results. Please see OpNote in Notes tab for results. Normal [facility] XR LUMBAR SPINE 2-3 VIEWS (S TANDARD)on 10-31-2020 XR LUMBAR SPINE 2-3 VIEWS (STANDARD) EXAMINATION: XR LUMBAR SPINE 2-3 VIEWS (STANDARD) HISTORY: ORDERING SYSTEM PROVIDED HISTORY: low back pain with radiculopathy, TECHNOLOGIST PROVIDED HISTORY: Illness/Other Reason for exam: Chronic left-sided low back pain with left-sided sciatica Cancer History: u Surgery, RadiationHistory: u Encounter Type: Initial Additional signs and symptoms: . ORDERING SYSTEM PROVIDED DIAGNOSIS CODES: M54.42 Chronic left-sided low back pain with left-sided sciatica G89.29 Chronic left-sided low back pain with left-sided sciatica COMPARISON: 07/19/2012 FINDINGS: Three views of the lumbar spine. No acute fracture. Normal lumbar lordosis. No listhesis. No abnormal curvature. Vertebral body heights are normal. Mild disc space narrowing L3-4 and L4-5 levels with mild endplate degenerative changes. Moderate facet arthropathy involving the L3-4 through L5-S1 levels. Partial visualization of mild osteoarthritic changes of the hips. Extensive atherosclerotic calcification of the infrarenal abdominal aorta and iliac arteries. IMPRESSION: No acute osseous abnormality. Ujeg-yg-drnuaxbi multilevel spondylosis of the lower lumbar spine. [employer] Workstation ID: [id number] Dictated by: TRACY MAYS on TueNov 03, 2020 8:48:09 AM EDT Transcribed by: SHERRY WALLER on TueNov 03, 2020 9:13:09 AM EDT Finalized by: TRACY MAYS on TueNov 03, 2020 9:03:10 PM EDT Normal [facility] Comment on above: Order Comment: Injur y/Trauma or Illness?:Illness/Other How long have you had these symptoms (acute/chronic)?:Acute Reason for exam?:Chronic left-sided low back pain with left-sided sciatica History of cancer?:u Surgeries, chemotherapy, or radiation?:u Type of Exam?:Initial Additional signs and symptoms?:. Basic metabolic 2000 panelOr dered By: Yoshi Mora on 10-22-2020 Anion gap [Moles/Vol] 12 mmol/L 10 - 2 0 mmol/L [facility] Calcium [Mass/Vol] 8.9 mg/dL 8.4 - 10. 2 mg/dL [facility] Chloride [Moles/Vol] 96 mmol/L Low 98 - 10 8 mmol/L [facility] Creatinine [Mass/Vol] 1.50 mg/dL High 0.60 - 1.20 [facility] GFR/1.73 sq M.predicted CKD-EPI (S/P/Bld) [Vol rate/Area] 37 Low >=60 mL/min/1.73 m2 [facility] Glucose [Mass/Vol] 466 mg/dL Critically high 65 - 9 9 mg/dL [facility] HCO3 [Moles/Vol] 25 mmol/L 21 - 32 mmol/L [facility] Interpretation and review of laboratory results Abnormal [facility] Potassium [Moles/Vol] 4.1 mmol/L 3.5 - 5.1 mmol/L [facility] Sodium [Moles/Vol] 129 mmol/L Low 135 - 145 mmol/L [facility] Urea nitrogen [Mass/Vol] 19 mg/dL 8 - 25 mg/dL [facility] Urea nitrogen/Creatinine [Mass ratio] 12.7 mg/mg [facility] The eGFR should be used for monitoring renal function only and not for medication dosing. [facility] Beta hydroxybutyrate [Moles/ Vol]Ordered By: Yoshi Mora on 10-22-2020 Interpretation and review of laboratory results Normal [facility] Beta-HydroxybutyrateOrdered By: Yoshi Mora on 10-22-2020 Beta hydroxybutyrate [Moles/Vol] 0.1 mmol/L 0.0 - 0.3 mmol/L [facility] CBC WITH AUTO DIFFERENTIALOr dered By: Yoshi Mora on 10-22-2020 Basophils (Bld) [#/Vol] 0.01 10*3/uL [facility] Basophils/100 WBC (Bld) 0.1 % [facility] Eosinophils (Bld) [#/Vol] 0.02 10*3/uL [facility] Eosinophils/100 WBC (Bld) 0.2 % [facility] Erythrocyte distribution width (RBC) [Entitic vol] 13.0 % 11.6 - 14.8 % [facility] Hematocrit (Bld) [Volume fraction] 42.8 % 36.0 - 46.0 % [facility] Hemoglobin (Bld) [Mass/Vol] 15.2 g/dL 12.0 - 16.0 g/dL [facility] Immature granulocytes (Bld) [#/Vol] 0.05 10*3/uL [facility] Immature granulocytes/100 WBC (Bld) 0.50 % [facility] Comment on above: The IG parameter is the percentage of metamyelocytes, myelocytes and promyelocytes. An immature granulocyte count (IG) of 1% or more suggests the possibility of infection, an IG count of 3% is very likely related to an infection. Interpretation and review of laboratory results Abnormal [facility] Lymphocytes (Bld) [#/Vol] 1.77 10*3/uL [facility] Lymphocytes/100 WBC (Bld) 18.7 % [facility] MCH (RBC) [Entitic mass] 30.1 pg 26.0 - 34.0 pg [facility] MCHC (RBC) [Mass/Vol] 35.5 g/dL 31.0 - 37.0 g/dL [facility] MCV (RBC) [Entitic vol] 84.8 fL 80.0 - 100.0 fL [facility] Monocytes (Bld) [#/Vol] 0.30 10*3/uL [facility] Monocytes/100 WBC (Bld) 3.2 % [facility] Neutrophils (Bld) [#/Vol] 7.34 10*3/uL High [facility] Neutrophils/100 WBC (Bld) 77.3 % [facility] Platelet mean volume (Bld) [Entitic vol] 10.7 fL 9.4 - 12.4 fL [facility] Platelets (Bld) [#/Vol] 105 10*3/uL Low [facility] RBC (Bld) [#/Vol] 5.05 10*6/uL [facility] WBC (Bld) [#/Vol] 9.49 10*3/uL [facility] CT ABDOMEN PELVIS WITHOUT CO NTRASTon 10-22-2020 CT ABDOMEN PELVIS WITHOUT CONTRAST EXAMINATION: CT ABDOMEN PELVIS WITHOUT CONTRAST HISTORY: ORDERING SYSTEM PROVIDED HISTORY: LLQ pain, TECHNOLOGIST PROVIDED HISTORY: Illness/Other Reason for exam: LLQ pain Encounter Type: Initial Additional signs and symptoms: none ORDERING SYSTEM PROVIDED DIAGNOSIS CODES: COMPARISON: 07/30/2019 TECHNIQUE: Axial images were obtained through the abdomen and pelvis without IV contrast. Coronal and sagittal reformations were performed. Dose reduction techniques were achieved by using automated exposure control and/or adjustment of mA and/or kV according to patient size and/or use of iterative reconstruction technique. FINDINGS: There is minimal atelectatic change in the visualized lung bases. Extensive surface nodularity of the liver is again noted. There is hepatomegaly. There are no obvious masses. There is splenomegaly again visualized. There are no obvious splenic masses. The pancreas is grossly normal in configuration. No adjacent inflammatory changes. The gallbladder is surgically absent. The left adrenal gland appears normal. A right adrenal gland adenoma is again noted. There are no stones in the kidneys. There is no hydronephrosis. There is a small calcification in the mid left kidney which is likely vascular. There are no stones in the ureters. There are no stones in the bladder. There is no significant bladder wall thickening. The uterus again appears small but lobular. There may be uterine fibroid disease. There is no free air or free fluid. There are no abscesses. There is no significant lymphadenopathy. There is no evidence of intestinal obstruction. There is colonic diverticulosis without evidence of acute diverticulitis. The abdominal aorta is normal in caliber. There is atherosclerotic disease. No acute or aggressive appearing bony lesions. IMPRESSION: 1. There are no acute abnormalities. 2. Cirrhotic morphology of the liver is again noted. 3. There is hepatosplenomegaly. 4. The uterus is small but appears lobular. This may be secondary to uterine fibroid disease. 5. Colonic diverticulosis without evidence of acute diverticulitis. [facility] Workstation ID: [id number] Dictated by: TANVI RAMÍREZ on TueOct 22, 2020 1:56:51 PM EDT Transcribed by: EMILIA YOUNG on TueOct 22, 2020 2:20:02 PM EDT Finalized by: TANVI RAMÍREZ on TueOct 22, 2020 2:22:11 PM EDT Normal [facility] Comment on above: Order Comment: Injur y/Trauma or Illness?:Illness/Other How long have you had these symptoms (acute/chronic)?:Acute Reason for exam?:LLQ pain Type of Exam?:Initial Additional signs and symptoms?:none CT Abdomen Pelvis Without Co ntrastOrdered By: Yoshi Mora on 10-22-2020 1. There are no acut e abnormalities. 2. Cirrhotic morphology of the liver is again noted. 3. There is hepatosplenomegaly. 4. The uterus is small but appears lobular. This may be secondary to uterine fibroid disease. 5. Colonic diverticulosis without evidence of acute diverticulitis. [facility]/raw Workstation ID: [id number] [facility] EXAMINATION: CT ABDOMEN PELVIS WITHOUT CONTRAST HISTORY: ORDERING SYSTEM PROVIDED HISTORY: LLQ pain, TECHNOLOGIST PROVIDED HISTORY: Illness/Other Reason for exam: LLQ pain Encounter Type: Initial Additional signs and symptoms: none ORDERING SYSTEM PROVIDED DIAGNOSIS CODES: COMPARISON: 07/30/2019 TECHNIQUE: Axial images were obtained through the abdomen and pelvis without IV contrast. Coronal and sagittal reformations were performed. Dose reduction techniques were achieved by using automated exposure control and/or adjustment of mA and/or kV according to patient size and/or use of iterative reconstruction technique. FINDINGS: There is minimal atelectatic change in the visualized lung bases. Extensive surface nodularity of the liver is again noted. There is hepatomegaly. There are no obvious masses. There is splenomegaly again visualized. There are no obvious splenic masses. The pancreas is grossly normal in configuration. No adjacent inflammatory changes. The gallbladder is surgically absent. The left adrenal gland appears normal. A right adrenal gland adenoma is again noted. There are no stones in the kidneys. There is no hydronephrosis. There is a small calcification in the mid left kidney which is likely vascular. There are no stones in the ureters. There are no stones in the bladder. There is no significant bladder wall thickening. The uterus again appears small but lobular. There may be uterine fibroid disease. There is no free air or free fluid. There are no abscesses. There is no significant lymphadenopathy. There is no evidence of intestinal obstruction. There is colonic diverticulosis without evidence of acute diverticulitis. The abdominal aorta is normal in caliber. There is atherosclerotic disease. No acute or aggressive appearing bony lesions. [facility] Interface, Rad In Traceyi Speechq - 10/22/2020 2:24 PM EDT EXAMINATION: CT ABDOMEN PELVIS WITHOUT CONTRAST HISTORY: ORDERING SYSTEM PROVIDED HISTORY: LLQ pain, TECHNOLOGIST PROVIDED HISTORY: Illness/Other Reason for exam: LLQ pain Encounter Type: Initial Additional signs and symptoms: none ORDERING SYSTEM PROVIDED DIAGNOSIS CODES: COMPARISON: 07/30/2019 TECHNIQUE: Axial images were obtained through the abdomen and pelvis without IV contrast. Coronal and sagittal reformations were performed. Dose reduction techniques were achieved by using automated exposure control and/or adjustment of mA and/or kV according to patient size and/or use of iterative reconstruction technique. FINDINGS: There is minimal atelectatic change in the visualized lung bases. Extensive surface nodularity of the liver is again noted. There is hepatomegaly. There are no obvious masses. There is splenomegaly again visualized. There are no obvious splenic masses. The pancreas is grossly normal in configuration. No adjacent inflammatory changes. The gallbladder is surgically absent. The left adrenal gland appears normal. A right adrenal gland adenoma is again noted. There are no stones in the kidneys. There is no hydronephrosis. There is a small calcification in the mid left kidney which is likely vascular. There are no stones in the ureters. There are no stones in the bladder. There is no significant bladder wall thickening. The uterus again appears small but lobular. There may be uterine fibroid disease. There is no free air or free fluid. There are no abscesses. There is no significant lymphadenopathy. There is no evidence of intestinal obstruction. There is colonic diverticulosis without evidence of acute diverticulitis. The abdominal aorta is normal in caliber. There is atherosclerotic disease. No acute or aggressive appearing bony lesions. IMPRESSION: 1. There are no acute abnormalities. 2. Cirrhotic morphology of the liver is again noted. 3. There is hepatosplenomegaly. 4. The uterus is small but appears lobular. This may be secondary to uterine fibroid disease. 5. Colonic diverticulosis without evidence of acute diverticulitis. [facility] Workstation ID: [id number] [facility] Glucose (Bld) [Mass/Vol]Orde red By: Yoshi Mora on 10-22-2020 Glucose [Mass/Vol] 381 mg/dL Abnormal 65 - 99 mg/dL [facility] Interpretation and review of laboratory results Abnormal [facility] Glucose [Mass/Vol] 461 mg/dL Abnormal 65 - 99 mg/dL [facility] Interpretation and review of laboratory results Abnormal [facility] Glucose (Bld) [Mass/Vol]Orde red By: [facility] on 10-22-2020 Glucose [Mass/Vol] 381 mg/dL High 65 - 99 mg/dL [facility] Interpretation and review of laboratory results Abnormal [facility] Glucose [Mass/Vol] 461 mg/dL Critically high 65 - 9 9 mg/dL [facility] Interpretation and review of laboratory results Abnormal [facility] Critical result acte d upon time of test. Test performed at bedside. [facility] Hepatic function 2000 panelO rdered By: Yoshi Mora on 10-22-2020 Albumin [Mass/Vol] 3.5 g/dL 3.2 - 5.2 g/dL [facility] ALP [Catalytic activity/Vol] 113 U/L 40 - 150 U/L [facility] ALT [Catalytic activity/Vol] 23 U/L 14 - 65 U/L [facility] AST [Catalytic activity/Vol] 12 U/L 0 - 45 U/L [facility] Bilirubin [Mass/Vol] 0.3 mg/dL 0.0 - 1 .3 mg/dL [facility] Bilirubin.conjugated [Mass/Vol] mg/dL 0.0 - 0.4 mg/dL [facility] Interpretation and review of laboratory results Abnormal [facility] Protein [Mass/Vol] 8.3 g/dL High 6.0 - 8.0 g/dL [facility] No Panel InformationOrdered By: Yohsi Mora on 10-22-2020 [facility] Obtain venous blood gases an d performOrdered By: Yoshi Mora on 10-22-2020 [facility] POC Venous Blood GasesOrdere d By: [facility] on 10-22-2020 Base Excess, Dhruv 0 [facility] th CO2 (BldV) [Partial pressure] 43.3 mm[Hg] [facility] HCO3 (Bld) [Moles/Vol] 25.1 mmol/L 24.0 - 28.0 mmol/L [facility] Hematocrit (Bld) [Volume fraction] 46 % 36 - 46 % [facility] Hemoglobin (Bld) [Mass/Vol] 15.6 g/dL 12.0 - 16.0 g/dL [facility] Interpretation and review of laboratory results Normal [facility] Oxygen (BldV) [Partial pressure] 37 mm[Hg] [facility] Oxygen saturation in Venous blood 68.0 % 40.0 - 70.0 % [facility] pH (BldV) 7.37 [pH] [facility] URINALYSISOrdered By: Faiban Mora on 10-22-2020 Bacteria Auto Ql (U) Rare Abnormal None Se en /hpf [facility] Clarity Refractometry automated (U) Clear Clear [facility] Color (U) Yellow Colorless, Yellow [facility] Glucose Auto test strip (U) [Mass/Vol] >=500 Abnormal Negative mg/dL [facility] Ketones (U) [Mass/Vol] Negative Negat abdelrahman mg/dL [facility] Leukocyte esterase Auto test strip Ql (U) Negative Negative [facility] h pH (U) 6.0 [pH] [facility] Specific gravity (U) [Rel density] 1.020 [facility] UrinalysisOrdered By: Fabian Mora on 10-22-2020 Bilirubin Ql (U) Negative Negative [facility] Epithelial cells.squamous Auto (Urine sed) [#/Area] 5 High [facility] Hemoglobin Auto test strip Ql (U) Moderate Abnormal Negative [facility] Interpretation and review of laboratory results Abnormal [facility] Nitrite Auto test strip Ql (U) Negative Negative [facility] Protein (U) [Mass/Vol] 100 mg/dL Abnormal Negat abdelrahman mg/dL [facility] RBC Auto (Urine sed) [#/Area] 3 [facility] Urobilinogen (U) [Mass/Vol] mg/dL <2.0 mg/dL [facility] WBC Auto (Urine sed) [#/Area] 2 [facility] Yeast.budding Computer assisted (U) [#/Area] Few Abnormal None Seen /hpf [facility] Microscopic examination is performed on all urinalysis samples and only positive findings are reported. The test for blood on the chemical analytic portion of urinalysis may also be positive due to hemoglobinuria and myoglobinuria and if red blood cells are present they are quantified by microscopic examination. [facility] COVID-19/INFLUENZA A,B MOLEC ULARon 09-08-2020 SARS-CoV-2 (COVID-19) Ab IA Ql INFLUENZA A (CEPHEID): Not Detected INFLUENZA B (CEPHEID): Not Detected SARS-COV-2 (CEPHEID): Not Detected This test was performed under the FDA's Emergency Use Authorization (EUA). Testing was performed using the Xpert Xpress SARS-CoV-2 RT-PCR Cepheid assay on the GeneXpert Dx platform. This test has not been approved for use in asymptomatic patients and its performance in this patient population has not been evaluated. Negative results do not rule out the presence of SARS-CoV-2/COVID-19. Fact sheets for this EUA can be found at the following links: For Healthcare Providers: https://www.fda.gov/m edia/651263/download For Patients: https://www.fda.gov/m edia/436448/download [facility] Comment on above: Performed By: #### L [id number] #### [facility] [address], [place] [address] Roby Vee M.D. [id number] XR CHEST PA/APon 09-08-2020 XR CHEST PA/AP EXAMINATION: XR CHEST PA/AP HISTORY: ORDERING SYSTEM PROVIDED HISTORY: cough, TECHNOLOGIST PROVIDED HISTORY: Illness/Other Reason for exam: cough, fever, Hx copd, htn, smoker Cancer History: u Surgery, RadiationHistory: u Encounter Type: Initial Additional signs and symptoms: none ORDERING SYSTEM PROVIDED DIAGNOSIS CODES: COMPARISON: Chest CT 11/16/2018, chest x-ray 09/06/2013. FINDINGS: AP portable upright view of the chest is submitted. Cardiac silhouette is within normal limits. Bilateral lower lung coarsened bronchial markings are seen. There is no airspace consolidation. No acute osseous abnormality is seen. IMPRESSION: 1. Bilateral lower lung coarsened bronchial markings compatible with bronchitis and bronchiolitis. 2. No airspace consolidation. R/ Workstation ID: [id number] Dictated by: KYM DUENAS on TueSeptember 08, 2020 2:16:49 AM EDT Transcribed by: GAIL CORTEZ on TueSeptember 08, 2020 3:04:37 AM EDT Finalized by: KYM DUENAS on TueSeptember 08, 2020 3:32:59 AM EDT [facility] Comment on above: Order Comment: Injur y/Trauma or Illness?:Illness/Other How long have you had these symptoms (acute/chronic)?:Acute Reason for exam?:cough, fever, Hx copd, htn, smoker History of cancer?:u Surgeries, chemotherapy, or radiation?:u Type of Exam?:Initial Additional signs and symptoms?:none COVID-19, MOLECULARon 2019 SARS-COV-2 RNA (TRINIDAD) Not Detected Normal Not Detecte d [facility] Comment on above: Order Comment: Juliocesar Abdul ph:[phone] Please fax results to : [phone] Result Comment: This test was performed under the FDA's Emergency Use Authorization (EUA). Testing was performed using the Aly SARS-CoV-2 assay on the [place] [facility] System. This test has not been approved for use in asymptomatic patients and its performance in this patient population has not been evaluated. Negative results do not rule out the presence of SARS-CoV-2/COVID-19. Fact sheets for this EUA can be found at the following links: For Healthcare Providers: https://www.fda.gov/media/454530/download For Patients: https://www.fda.gov/media/939349/download Performed By: #### L [id number] #### [facility] [address] [place] [address] Alejandro Ho M.D. [id number] CHEST PA AND LATERALon 04-14 CHEST PA AND LATERAL Final ReportAccession No: [id number] Performed: Apr 14 2018 9:12AMExamination: CHEST PA AND LATERALEXAM: CHEST PA AND LATERALREASON FOR EXAM: COPD.TECHNIQUE: Two-view chest.COMPARISON: Chest x-ray dated 05/21/2015.FINDINGS: There is no evidence of lung consolidation, pleural effusions orpneumothorax. Heart size is normal. The mediastinum is within normallimits.Osseous structures are intact.IMPRESSION:No acute process.Interpreting Physician: JENINE CALERO D.O.Trans: n/a : cc: Normal [facility] CT CHEST LOW DOSE LUNG CA SC Nickie 11-15-2017 CT CHEST LOW DOSE LUNG CA SCREEN Final ReportAccession No: [id number] Performed: Nov 15 2017 10:52AMExamination: CT CHEST LOW DOSE LUNG CA SCREENEXAM: CT CHEST LOW DOSE LUNG CA SCREENCLINICAL STATEMENT: Heavy smoker.COMPARISON: None.TECHNIQUE: Multiple computerized [facility] utilizing the low-dose lung screening protocol.Dose reduction techniques were achieved by using automated exposurecontroland/or adjustment of mA and/or kV according to patient size and/or use ofiterative reconstruction technique.FINDINGS: There are no focal areas of groundglass opacity or pulmonarynoduledevelo pment. Pleural effusion or pneumothorax is not observed. The thyroidgland is homogeneous. There are coronary artery calcifications seen.IMPRESSION:No suspicious findings.Lung-RADS 1FINDINGS: No lung nodules; nodule(s) with specific calcifications:Comple te,central, popcorn, concentric rings and fat containing nodules.MANAGEMENT: Continue annual screening with LDCT in 12 months.Interpreting Physician: TITO DELANEY D.O.Trans: gvtoniho : cc: Normal [facility] Vital Signs Date Time Vital Sign Value Performing Clinician Facility 08-25-2023 09:27-0400 Body mass index (BMI) [Ratio] 41.61 kg/m2 Kelly Carrasco PA-C Work Phone: [facility] 08-25-2023 09:27-0400 Body weight 103.87 kg Kelly Carrasco PA-C Work Phone: [facility] 08-25-2023 09:27-0400 Diastolic blood pressure 84 mm[Hg] Kelly Carrasco PA-C Work Phone: [facility] 08-25-2023 09:27-0400 Heart rate 66 /min Kelly Carrasco PA-C Work Phone: [facility] 08-25-2023 09:27-0400 Systolic blood pressure 173 mm[Hg] Kelly Carrasco PA-C Work Phone: [facility] 07-06-2023 08:51-0400 Body mass index (BMI) [Ratio] 42.52 kg/m2 Kelly Carrasco PA-C Work Phone: [facility] 07-06-2023 08:51-0400 Body weight 106.14 kg Kelly Carrasco PA-C Work Phone: [facility] 07-06-2023 08:51-0400 Diastolic blood pressure 84 mm[Hg] Kelly Carrasco PA-C Work Phone: [facility] 07-06-2023 08:51-0400 Heart rate 62 /min Kelly Carrasco PA-C Work Phone: [facility] 07-06-2023 08:51-0400 Systolic blood pressure 164 mm[Hg] Kelly Carrasco PA-C Work Phone: [facility] 06-12-2023 15:09-0500 Body temperature 96.8 [degF] Fredy Styles MD Work Phone: [facility] 06-12-2023 15:09-0500 Diastolic blood pressure 72 mm[Hg] Fredy Styles MD Work Phone: [facility] 06-12-2023 15:09-0500 Heart rate 64 /min Fredy Styles MD Work Phone: [facility] 06-12-2023 15:09-0500 Respiratory rate 18 /min Fredy Styles MD Work Phone: [facility] 06-12-2023 15:09-0500 SaO2% (BldA) [Mass fraction] 93 % Fredy Styles MD Work Phone: [facility] 06-12-2023 15:09-0500 Systolic blood pressure 131 mm[Hg] Fredy Styles MD Work Phone: [facility] 06-10-2023 08:30-0500 Body height 158 cm Fredy Styles MD Work Phone: [facility] 06-10-2023 08:30-0500 Body mass index (BMI) [Ratio] 41.58 kg/m2 Fredy Styles MD Work Phone: [facility] 06-10-2023 08:30-0500 Body weight 103.8 kg Fredy Styles MD Work Phone: [facility] 06-03-2023 11:54-0500 Diastolic blood pressure 64 mm[Hg] [address] 06-03-2023 11:54-0500 Heart rate 69 /min [address] 06-03-2023 11:54-0500 Respiratory rate 18 /min [address] 06-03-2023 11:54-0500 SaO2% (BldA) [Mass fraction] 92 % [address] 06-03-2023 11:54-0500 Systolic blood pressure 182 mm[Hg] [address] 06-03-2023 11:38-0500 Body temperature 98.2 [degF] [address] 06-03-2023 10:57-0500 Body mass index (BMI) [Ratio] 39.14 kg/m2 [address] 06-03-2023 10:57-0500 Body weight 97.[address] 05-30-2023 22:53-0500 Diastolic blood pressure 58 mm[Hg] Ryan Mehta MD Work Phone: [facility] 05-30-2023 22:53-0500 Heart rate 70 /min Ryan Mehta MD Work Phone: [facility] 05-30-2023 22:53-0500 Respiratory rate 16 /min Ryan Mehta MD Work Phone: [facility] 05-30-2023 22:53-0500 SaO2% (BldA) [Mass fraction] 94 % Ryan Mehta MD Work Phone: [facility] 05-30-2023 22:53-0500 Systolic blood pressure 123 mm[Hg] Ryan Mehta MD Work Phone: [facility] 05-30-2023 22:13-0500 Body height 157.5 cm Ryan Mehta MD Work Phone: [facility] 05-30-2023 22:13-0500 Body mass index (BMI) [Ratio] 39.14 kg/m2 Ryan Mehta MD Work Phone: [facility] 05-30-2023 22:13-0500 Body temperature 97.81 [degF] Ryan Mehta MD Work Phone: [facility] 05-30-2023 22:13-0500 Body weight 97.07 kg Ryan Mehta MD Work Phone: [facility] 05-25-2023 09:18-0500 Body height 157.5 cm Callie Mcdonough PA-C Work Phone: [facility] 05-25-2023 09:18-0500 Body mass index (BMI) [Ratio] 41.7 kg/m2 Callie Kayeall PA-C Work Phone: [facility] 05-25-2023 09:18-0500 Body weight 103.42 kg Calliepadmini Kayeall PA-C Work Phone: [facility] 05-25-2023 09:18-0500 Diastolic blood pressure 76 mm[Hg] Calliepamdini Kayeall PA-C Work Phone: [facility] 05-25-2023 09:18-0500 Heart rate 68 /min Callie Kayeall PA-C Work Phone: [facility] 05-25-2023 09:18-0500 SaO2% (BldA) [Mass fraction] 93 % Calliepadmini Kayeall PA-C Work Phone: [facility] 05-25-2023 09:18-0500 Systolic blood pressure 134 mm[Hg] Calliepadmini Kayeall PA-C Work Phone: [facility] 05-20-2023 10:05-0500 Body mass index (BMI) [Ratio] 40.42 kg/m2 Fredy Styles MD Work Phone: [facility] 05-20-2023 10:05-0500 Body weight 100.25 kg Fredy Styles MD Work Phone: [facility] 04-28-2023 08:36-0500 Body height 157.5 cm Kelly Carrasco PA-C Work Phone: [facility] 04-28-2023 08:36-0500 Body mass index (BMI) [Ratio] 40.42 kg/m2 Kellyterri Carrasco PA-C Work Phone: [facility] 04-28-2023 08:36-0500 Body weight 100.25 kg Kelly Carrasco PA-C Work Phone: [facility] 04-28-2023 08:36-0500 Diastolic blood pressure 83 mm[Hg] Kelly Carrasco PA-C Work Phone: [facility] 04-28-2023 08:36-0500 Heart rate 67 /min Kelly Carrasco PA-C Work Phone: [facility] 04-28-2023 08:36-0500 Respiratory rate 20 /min Kelly Carrasco PA-C Work Phone: [facility] 04-28-2023 08:36-0500 Systolic blood pressure 138 mm[Hg] Kelly Carrasco PA-C Work Phone: [facility] 04-14-2023 11:06-0500 Body temperature 96.6 [degF] Ryan Mehta MD Work Phone: [facility] 04-14-2023 11:06-0500 Diastolic blood pressure 66 mm[Hg] Ryan Mehta MD Work Phone: [facility] 04-14-2023 11:06-0500 Heart rate 70 /min Ryan Mehta MD Work Phone: [facility] 04-14-2023 11:06-0500 Respiratory rate 18 /min Ryan Mehta MD Work Phone: [facility] 04-14-2023 11:06-0500 SaO2% (BldA) [Mass fraction] 99 % Ryan Mehta MD Work Phone: [facility] 04-14-2023 11:06-0500 Systolic blood pressure 109 mm[Hg] Ryan Mehta MD Work Phone: [facility] 04-13-2023 04:42-0500 Body height 154.9 cm Ryan Mehta MD Work Phone: [facility] 04-13-2023 04:42-0500 Body mass index (BMI) [Ratio] 40.43 kg/m2 Ryan Mehta MD Work Phone: [facility] 04-13-2023 04:42-0500 Body weight 97.07 kg Ryan Mehta MD Work Phone: [facility] 04-05-2023 07:59-0500 Body temperature 97.7 [degF] Balbir Tavares DO Work Phone: [facility] 04-05-2023 07:59-0500 Diastolic blood pressure 82 mm[Hg] Balbir Tavares DO Work Phone: [facility] 04-05-2023 07:59-0500 Heart rate 126 /min Balbir Tavares DO Work Phone: [facility] 04-05-2023 07:59-0500 Respiratory rate 16 /min Balbir Tavares DO Work Phone: [facility] 04-05-2023 07:59-0500 SaO2% (BldA) [Mass fraction] 95 % Balbir Tavares DO Work Phone: [facility] 04-05-2023 07:59-0500 Systolic blood pressure 141 mm[Hg] Balbir Tavares DO Work Phone: [facility] 04-04-2023 08:50-0500 Body height 154.9 cm Balbir Tavares DO Work Phone: [facility] 04-04-2023 08:50-0500 Body mass index (BMI) [Ratio] 40.43 kg/m2 Balbir Tavares DO Work Phone: [facility] 04-04-2023 08:50-0500 Body weight 97.07 kg Balbir Tavares DO Work Phone: [facility] 03-08-2023 08:39-0500 Body height 157.5 cm Callie Mcdonough PA-C Work Phone: [facility] 03-08-2023 08:39-0500 Body mass index (BMI) [Ratio] 39.69 kg/m2 Callie Mcdonough PA-C Work Phone: [facility] 03-08-2023 08:39-0500 Body weight 98.43 kg Callie Kayeall PA-C Work Phone: [facility] 03-08-2023 08:39-0500 Diastolic blood pressure 70 mm[Hg] Callie Herkimer PA-C Work Phone: [facility] 03-08-2023 08:39-0500 Heart rate 72 /min Callie Kayeall PA-C Work Phone: [facility] 03-08-2023 08:39-0500 Systolic blood pressure 150 mm[Hg] Callie Kayeall PA-C Work Phone: [facility] 02-21-2023 10:12-0500 Body height 157.5 cm Callie Kayeall PA-C Work Phone: [facility] 02-21-2023 10:12-0500 Body mass index (BMI) [Ratio] 42.25 kg/m2 Callie Kayeall PA-C Work Phone: [facility] 02-21-2023 10:12-0500 Body weight 104.78 kg Callie Kayeall PA-C Work Phone: [facility] 02-21-2023 10:12-0500 Diastolic blood pressure 75 mm[Hg] Callie Kayeall PA-C Work Phone: [facility] 02-21-2023 10:12-0500 Heart rate 69 /min Callie Kayeall PA-C Work Phone: [facility] 02-21-2023 10:12-0500 Systolic blood pressure 126 mm[Hg] Callie Kayeall PA-C Work Phone: [facility] 01-04-2023 08:09-0400 Body mass index (BMI) [Ratio] 39.87 kg/m2 Callie Mcdonough Work Phone: [facility] Work Phone: 01-04-2023 08:09-0400 Body surface area Derived from formula 1.98 m2 Callie Mcdonough Work Phone: [facility] Work Phone: 01-04-2023 08:09-0400 Body weight 98.88 kg Callie Mcdonough Work Phone: [facility] Work Phone: 01-04-2023 08:09-0400 Diastolic blood pressure 87 mm[Hg] Callie Mcdonough Work Phone: [facility] Work Phone: 01-04-2023 08:09-0400 Heart rate 85 /min Callie Mcdonough Work Phone: [facility] Work Phone: 01-04-2023 08:09-0400 Respiratory rate 16 /min Callie Mcdonough Work Phone: [facility] Work Phone: 01-04-2023 08:09-0400 Systolic blood pressure 166 mm[Hg] Callie Mcdonough Work Phone: [facility] Work Phone: 11-26-2022 08:32-0400 Body mass index (BMI) [Ratio] 39.14 kg/m2 Callie Mcdonough Work Phone: [facility] Work Phone: 11-26-2022 08:32-0400 Body surface area Derived from formula 1.97 m2 Callie Mcdonough Work Phone: [facility] 300 Work Phone: 11-26-2022 08:32-0400 Body temperature 96.8 [degF] Callie Mcdonough Work Phone: [facility] 300 Work Phone: 11-26-2022 08:32-0400 Body weight 97.07 kg Callie Mcdonough Work Phone: [facility] 300 Work Phone: 10-18-2022 16:51-0400 Diastolic blood pressure 60 mm[Hg] Callie Mcdonoguh Other Phone: [facility] 10-18-2022 16:51-0400 Heart rate 67 /min Callie Mcdonough Other Phone: [facility] 10-18-2022 16:51-0400 Respiratory rate 17 /min Callie Mcdonough Other Phone: [facility] 10-18-2022 16:51-0400 SaO2% (BldA) [Mass fraction] 95 % Callie Mcdonough Other Phone: [facility] 10-18-2022 16:51-0400 Systolic blood pressure 116 mm[Hg] Callie Mcdonough Other Phone: [facility] 10-18-2022 13:41-0400 Body height 157.4 cm Callie Mcdonough Other Phone: [facility] 10-18-2022 13:41-0400 Body temperature 96.62 [degF] Callie Mcdonough Other Phone: [facility] 10-18-2022 13:41-0400 Body weight 91.3 kg Callie Mcdonough Other Phone: [facility] 10-18-2022 10:54-0400 Body height 157.5 cm Brynn Jose MD Work Phone: [facility] 10-18-2022 10:54-0400 Body mass index (BMI) [Ratio] 38.78 kg/m2 Brynn Jose MD Work Phone: [facility] 10-18-2022 10:54-0400 Body weight 96.16 kg Brynn Jose MD Work Phone: [facility] 10-18-2022 10:54-0400 Diastolic blood pressure 60 mm[Hg] Brynn Jose MD Work Phone: [facility] 10-18-2022 10:54-0400 Heart rate 70 /min Brynn Jose MD Work Phone: [facility] 10-18-2022 10:54-0400 Systolic blood pressure 120 mm[Hg] Brynn Jose MD Work Phone: [facility] 09-17-2022 12:30-0400 Body height 159.8 cm Miguel Angelo MD Work Phone: [facility] 09-17-2022 12:30-0400 Body mass index (BMI) [Ratio] 37.32 kg/m2 Miguel Angelo MD Work Phone: [facility] 09-17-2022 12:30-0400 Body weight 95.3 kg Miguel Angelo MD Work Phone: [facility] 08-18-2022 13:09-0400 Body height 157.48 cm Callie Mcdonough Work Phone: [facility] [facility] Work Phone: 08-18-2022 13:09-0400 Body mass index (BMI) [Ratio] 39.05 kg/m2 Callie Mcdonough Work Phone: [facility] [facility] Work Phone: 08-18-2022 13:09-0400 Body surface area Derived from formula 1.97 m2 Callie Mcdonough Work Phone: [facility] [facility] Work Phone: 08-18-2022 13:09-0400 Body weight 96.84 kg Callie Mcdonough Work Phone: [facility] [facility] Work Phone: 08-04-2022 11:06-0400 Body height 157.48 cm Callie Mcdonough Work Phone: [facility] Work Phone: 08-04-2022 11:06-0400 Body mass index (BMI) [Ratio] 37.13 kg/m2 Callie Mcdonough Work Phone: [facility] Work Phone: 08-04-2022 11:06-0400 Body surface area Derived from formula 1.92 m2 Callie Mcdonough Work Phone: [facility] Work Phone: 08-04-2022 11:06-0400 Body weight 92.08 kg Callie Mcdonough Work Phone: [facility] Work Phone: 08-04-2022 11:06-0400 Diastolic blood pressure 76 mm[Hg] Callie Mcdonough Work Phone: [facility] Work Phone: 08-04-2022 11:06-0400 Heart rate 81 /min Callie Mcdonough Work Phone: [facility] Work Phone: 08-04-2022 11:06-0400 Respiratory rate 20 /min Callie Mcdonough Work Phone: [facility] Work Phone: 08-04-2022 11:06-0400 Systolic blood pressure 145 mm[Hg] Callie Mcdonough Work Phone: [facility] Work Phone: 07-23-2022 09:27-0400 Body height 157.48 cm Callie Kayeall Work Phone: [facility] Work Phone: 07-23-2022 09:27-0400 Body mass index (BMI) [Ratio] 38.64 kg/m2 Callie Mcdonough Work Phone: [facility] Work Phone: 07-23-2022 09:27-0400 Body surface area Derived from formula 1.96 m2 Callie Mcdonough Work Phone: [facility] Work Phone: 07-23-2022 09:27-0400 Body weight 95.82 kg Callei Mcdonough Work Phone: [facility] Work Phone: 07-23-2022 09:27-0400 Diastolic blood pressure 68 mm[Hg] Callie Mcdonough Work Phone: [facility] Work Phone: 07-23-2022 09:27-0400 Heart rate 74 /min Callie Mcdonough Work Phone: [facility] Work Phone: 07-23-2022 09:27-0400 Systolic blood pressure 110 mm[Hg] Callie Mcdonough Work Phone: [facility] Work Phone: 07-22-2022 08:21-0400 Body height 157.5 cm Callie Wardenhall PA-C Work Phone: [facility] 07-22-2022 08:21-0400 Body mass index (BMI) [Ratio] 38.59 kg/m2 Callie Wardenhall PA-C Work Phone: [facility] 07-22-2022 08:21-0400 Body weight 95.71 kg Callie Mcdonough PA-C Work Phone: [facility] 07-22-2022 08:21-0400 Diastolic blood pressure 80 mm[Hg] Calliepadmini WardSharonda PA-C Work Phone: [facility] 07-22-2022 08:21-0400 Heart rate 110 /min Callie Herkimer PA-C Work Phone: [facility] 07-22-2022 08:21-0400 SaO2% (BldA) [Mass fraction] 97 % Calliepadmini Kayeall PA-C Work Phone: [facility] 07-22-2022 08:21-0400 Systolic blood pressure 134 mm[Hg] Calliepadmini Kayeall PA-C Work Phone: [facility] 07-16-2022 09:39-0400 Body height 157.5 cm Nayana Miller 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 Work Phone: [facility] 07-16-2022 09:39-0400 Body mass index (BMI) [Ratio] 38.41 kg/m2 Nayana Miller 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 Work Phone: [facility] 07-16-2022 09:39-0400 Body weight 95.25 kg Nayana Miller 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 Work Phone: [facility] 07-16-2022 09:39-0400 Diastolic blood pressure 76 mm[Hg] Nayana Miller 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 Work Phone: [facility] 07-16-2022 09:39-0400 Heart rate 80 /min Nayana Miller 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 Work Phone: [facility] 07-16-2022 09:39-0400 Systolic blood pressure 118 mm[Hg] Nayana Miller 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 Work Phone: [facility] 07-08-2022 13:16-0400 Body height 157.5 cm Callie Kayeall PA-C Work Phone: [facility] 07-08-2022 13:16-0400 Body mass index (BMI) [Ratio] 38.23 kg/m2 Callie Kayeall PA-C Work Phone: [facility] 07-08-2022 13:16-0400 Body weight 94.8 kg Callie Mcdonough PA-C Work Phone: [facility] 07-08-2022 13:16-0400 Diastolic blood pressure 80 mm[Hg] Callie Kayeall PA-C Work Phone: [facility] 07-08-2022 13:16-0400 Heart rate 80 /min Callie Kayeall PA-C Work Phone: [facility] 07-08-2022 13:16-0400 Systolic blood pressure 136 mm[Hg] Callie Kayeall PA-C Work Phone: [facility] 07-05-2022 09:30-0400 Body mass index (BMI) [Ratio] 41.15 kg/m2 Callie Wardenhall Work Phone: [facility] Work Phone: 07-05-2022 09:30-0400 Body surface area Derived from formula 2.01 m2 Callie Wardenhall Work Phone: [facility] Work Phone: 07-05-2022 09:30-0400 Body weight 102.06 kg Callie Wardenhall Work Phone: [facility] Work Phone: 07-05-2022 09:30-0400 Respiratory rate 20 /min Callie Wardenhall Work Phone: [facility] Work Phone: 06-13-2022 02:23-0500 Diastolic blood pressure 82 mm[Hg] Callie Herkimer Other Phone: [facility] 06-13-2022 02:23-0500 Heart rate 70 /min Callie Mcdonough Other Phone: [facility] 06-13-2022 02:23-0500 Respiratory rate 14 /min Callie Mcdonough Other Phone: [facility] 06-13-2022 02:23-0500 SaO2% (BldA) [Mass fraction] 96 % Callie Mcdonough Other Phone: [facility] 06-13-2022 02:23-0500 Systolic blood pressure 149 mm[Hg] Callie Wardenhall Other Phone: [facility] 04-28-2022 08:53-0500 Body height 157.48 cm Callie Jameson Sharonda Work Phone: [facility] 300 Work Phone: 04-28-2022 08:53-0500 Body mass index (BMI) [Ratio] 41.15 kg/m2 Calliepadmini Mcdonough Work Phone: [facility] 300 Work Phone: 04-28-2022 08:53-0500 Body surface area Derived from formula 2.01 m2 Callie Trino Mcdonough Work Phone: [facility] 300 Work Phone: 04-28-2022 08:53-0500 Body temperature 97.1 [degF] Callie Jameson Sharonda Work Phone: [facility] 300 Work Phone: 04-28-2022 08:53-0500 Body weight 102.06 kg Callie Trino Mcdonough Work Phone: [facility] 300 Work Phone: 04-22-2022 08:33-0500 Body height 157.48 cm Callie Mcdonough Work Phone: [facility] Work Phone: 04-22-2022 08:33-0500 Body mass index (BMI) [Ratio] 41.15 kg/m2 Callie Mcdonough Work Phone: [facility] Work Phone: 04-22-2022 08:33-0500 Body surface area Derived from formula 2.01 m2 Callie Mcdonough Work Phone: [facility] Work Phone: 04-22-2022 08:33-0500 Body weight 102.06 kg Callie Mcdonough Work Phone: [facility] Work Phone: 04-22-2022 08:33-0500 Diastolic blood pressure 72 mm[Hg] Callie Mcdonough Work Phone: [facility] Work Phone: 04-22-2022 08:33-0500 Heart rate 84 /min Callie Mcdonough Work Phone: [facility] Work Phone: 04-22-2022 08:33-0500 SaO2% (BldA) [Mass fraction] 96 % Callie Mcdonough Work Phone: [facility] Work Phone: 04-22-2022 08:33-0500 Systolic blood pressure 130 mm[Hg] Callie Mcdonough Work Phone: [facility] Work Phone: 04-22-2022 08:33-0500 8 1 Callie Kayeall Work Phone: [facility] Work Phone: Comment on above: PHQ-9 TS 04-01-2022 11:15-0500 Diastolic blood pressure 77 mm[Hg] Ida Ely [facility] 04-01-2022 11:15-0500 Heart rate 78 /min Ida Ely [facility] 04-01-2022 11:15-0500 Respiratory rate 16 /min [facility] 04-01-2022 11:15-0500 SaO2% (BldA) [Mass fraction] 95 % [facility] 04-01-2022 11:15-0500 Systolic blood pressure 155 mm[Hg] [facility] 04-01-2022 09:51-0500 Body height 157.4 cm [facility] 04-01-2022 09:51-0500 Body temperature 97.7 [degF] [facility] 04-01-2022 09:51-0500 Body weight 100 kg [facility] 01-21-2022 09:26-0400 Body height 157.48 cm No PCP None [facility] Work Phone: 01-21-2022 09:26-0400 Body mass index (BMI) [Ratio] 40.06 kg/m2 No PCP None [facility] Work Phone: 01-21-2022 09:26-0400 Body surface area Derived from formula 1.99 m2 No PCP None [facility] Work Phone: 01-21-2022 09:26-0400 Body weight 99.34 kg No PCP None [facility] Work Phone: 01-21-2022 09:26-0400 Diastolic blood pressure 87 mm[Hg] No PCP None [facility] Work Phone: 01-21-2022 09:26-0400 Heart rate 82 /min No PCP None [facility] Work Phone: 01-21-2022 09:26-0400 Respiratory rate 20 /min No PCP None [facility] Work Phone: 01-21-2022 09:26-0400 Systolic blood pressure 130 mm[Hg] No PCP None [facility] Work Phone: 12-03-2021 08:23-0400 Body mass index (BMI) [Ratio] 39.87 kg/m2 No PCP None [facility] Work Phone: 12-03-2021 08:23-0400 Body surface area Derived from formula 1.98 m2 No PCP None [facility] Work Phone: 12-03-2021 08:23-0400 Body weight 98.88 kg No PCP None [facility] Work Phone: 12-03-2021 08:23-0400 Diastolic blood pressure 80 mm[Hg] No PCP None [facility] Work Phone: 12-03-2021 08:23-0400 Heart rate 73 /min No PCP None [facility] Work Phone: 12-03-2021 08:23-0400 Respiratory rate 18 /min No PCP None [facility] Work Phone: 12-03-2021 08:23-0400 Systolic blood pressure 151 mm[Hg] No PCP None [facility] Work Phone: 11-12-2021 14:54-0400 Body height 157.48 cm No PCP None [facility] Work Phone: 11-12-2021 14:54-0400 Body mass index (BMI) [Ratio] 39.51 kg/m2 No PCP None [facility] Work Phone: 11-12-2021 14:54-0400 Body surface area Derived from formula 1.98 m2 No PCP None [facility] Work Phone: 11-12-2021 14:54-0400 Body weight 97.98 kg No PCP None [facility] Work Phone: 11-12-2021 14:54-0400 Diastolic blood pressure 70 mm[Hg] No PCP None [facility] Work Phone: 11-12-2021 14:54-0400 Heart rate 80 /min No PCP None [facility] Work Phone: 11-12-2021 14:54-0400 Respiratory rate 20 /min No PCP None [facility] Work Phone: 11-12-2021 14:54-0400 Systolic blood pressure 117 mm[Hg] No PCP None [facility] Work Phone: 09-29-2021 09:34-0400 Body height 157.48 cm No PCP None [facility] 300 Work Phone: 09-29-2021 09:34-0400 Body mass index (BMI) [Ratio] 38.59 kg/m2 No PCP None [facility] 300 Work Phone: 09-29-2021 09:34-0400 Body surface area Derived from formula 1.96 m2 No PCP None [facility] 300 Work Phone: 09-29-2021 09:34-0400 Body temperature 97.1 [degF] No PCP None [facility] 300 Work Phone: 09-29-2021 09:34-0400 Body weight 95.71 kg No PCP None [facility] 300 Work Phone: 09-22-2021 21:55-0400 Diastolic blood pressure 49 mm[Hg] No Pcp Required [facility] 09-22-2021 21:55-0400 Heart rate 78 /min No Pcp Required [facility] 09-22-2021 21:55-0400 Respiratory rate 18 /min No Pcp Required [facility] 09-22-2021 21:55-0400 SaO2% (BldA) [Mass fraction] 99 % No Pcp Required [facility] 09-22-2021 21:55-0400 Systolic blood pressure 149 mm[Hg] No Pcp Required [facility] 09-22-2021 19:29-0400 Body height 157.4 cm No Pcp Required [facility] 09-22-2021 19:29-0400 Body temperature 97.16 [degF] No Pcp Required [facility] 09-22-2021 19:29-0400 Body weight 96.4 kg No Pcp Required [facility] 09-22-2021 18:26-0400 Body temperature 37.0 {degrees_C} No PCP None -[facility] 300 Work Phone: Comment on above: NOTE: PATIENT RESULTS ARE NOT CORRECTED FOR TEMPERATURE. 09-17-2021 10:04-0400 Body height 157.48 cm No PCP None -[facility] 300 Work Phone: 09-17-2021 10:04-0400 Body mass index (BMI) [Ratio] 38.66 kg/m2 No PCP None -[facility] 300 Work Phone: 09-17-2021 10:04-0400 Body surface area Derived from formula 1.96 m2 No PCP None -[facility] 300 Work Phone: 09-17-2021 10:04-0400 Body temperature 97.3 [degF] No PCP None -[facility] [address] Work Phone: 09-17-2021 10:04-0400 Body weight 95.88 kg No PCP None -[facility] 300 Work Phone: 09-11-2021 10:18-0400 Body height 157.48 cm No PCP None -[facility] 300 Work Phone: 09-10-2021 10:36-0400 Body height 157.48 cm No PCP None -[facility] 300 Work Phone: 09-10-2021 10:36-0400 Body mass index (BMI) [Ratio] 38.78 kg/m2 No PCP None [facility] 300 Work Phone: 09-10-2021 10:36-0400 Body surface area Derived from formula 1.96 m2 No PCP None [facility] 300 Work Phone: 09-10-2021 10:36-0400 Body temperature 97.3 [degF] No PCP None [facility] 300 Work Phone: 09-10-2021 10:36-0400 Body weight 96.16 kg No PCP None [facility] [address] Work Phone: 09-03-2021 22:29-0400 Diastolic blood pressure 87 mm[Hg] No Pcp Required [facility] 09-03-2021 22:29-0400 Heart rate 80 /min No Pcp Required [facility] 09-03-2021 22:29-0400 Respiratory rate 18 /min No Pcp Required [facility] 09-03-2021 22:29-0400 SaO2% (BldA) [Mass fraction] 96 % No Pcp Required [facility] 09-03-2021 22:29-0400 Systolic blood pressure 126 mm[Hg] No Pcp Required [facility] 09-03-2021 21:39-0400 Body height 157.4 cm No Pcp Required [facility] 09-03-2021 21:39-0400 Body temperature 98.06 [degF] No Pcp Required [facility] 09-03-2021 21:39-0400 Body weight 105 kg No Pcp Required [facility] 09-01-2021 22:53-0400 Diastolic blood pressure 80 mm[Hg] No Pcp Required [facility] 09-01-2021 22:53-0400 Heart rate 84 /min No Pcp Required [facility] 09-01-2021 22:53-0400 Respiratory rate 20 /min No Pcp Required [facility] 09-01-2021 22:53-0400 SaO2% (BldA) [Mass fraction] 96 % No Pcp Required [facility] 09-01-2021 22:53-0400 Systolic blood pressure 157 mm[Hg] No Pcp Required [facility] 09-01-2021 19:36-0400 Body height 157.4 cm No Pcp Required [facility] 09-01-2021 19:36-0400 Body temperature 98.06 [degF] No Pcp Required [facility] 09-01-2021 19:36-0400 Body weight 99.5 kg No Pcp Required [facility] 09-01-2021 17:42-0400 Body height 157.4 cm No Pcp Required [facility] 09-01-2021 17:42-0400 Body temperature 98.06 [degF] No Pcp Required [facility] 09-01-2021 17:42-0400 Diastolic blood pressure 82 mm[Hg] No Pcp Required [facility] 09-01-2021 17:42-0400 Heart rate 84 /min No Pcp Required [facility] 09-01-2021 17:42-0400 Respiratory rate 16 /min No Pcp Required [facility] 09-01-2021 17:42-0400 SaO2% (BldA) [Mass fraction] 96 % No Pcp Required [facility] 09-01-2021 17:42-0400 Systolic blood pressure 152 mm[Hg] No Pcp Required [facility] 07-07-2021 22:30-0400 Diastolic blood pressure 63 mm[Hg] No Pcp Required [facility] 07-07-2021 22:30-0400 Heart rate 78 /min No Pcp Required [facility] 07-07-2021 22:30-0400 Respiratory rate 20 /min No Pcp Required [facility] 07-07-2021 22:30-0400 SaO2% (BldA) [Mass fraction] 96 % No Pcp Required [facility] 07-07-2021 22:30-0400 Systolic blood pressure 150 mm[Hg] No Pcp Required [facility] 07-07-2021 21:30-0400 Body temperature 98.6 [degF] No Pcp Required [facility] 07-07-2021 20:06-0400 Body height 157.4 cm No Pcp Required [facility] 07-07-2021 20:06-0400 Body weight 94.5 kg No Pcp Required [facility] 01-08-2021 10:02-0400 Body temperature 98.1 [degF] Bob Hunt MD Work Phone: [facility] 01-08-2021 10:02-0400 Diastolic blood pressure 79 mm[Hg] Bob Hunt MD Work Phone: [facility] 01-08-2021 10:02-0400 Heart rate 76 /min Bob Hunt MD Work Phone: [facility] 01-08-2021 10:02-0400 Respiratory rate 16 /min Bob Hunt MD Work Phone: [facility] 01-08-2021 10:02-0400 SaO2% (BldA) [Mass fraction] 97 % Bob Hunt MD Work Phone: [facility] 01-08-2021 10:02-0400 Systolic blood pressure 123 mm[Hg] Bob Hunt MD Work Phone: [facility] 01-08-2021 08:34-0400 Body height 157.5 cm Bob Hunt MD Work Phone: [facility] 01-08-2021 08:34-0400 Body mass index (BMI) [Ratio] 40.24 kg/m2 Bob Hunt MD Work Phone: [facility] 01-08-2021 08:34-0400 Body weight 99.79 kg Bob Hunt MD Work Phone: [facility] 11-20-2020 09:17-0400 Diastolic blood pressure 90 mm[Hg] Bob Hunt MD Work Phone: [facility] 11-20-2020 09:17-0400 Heart rate 85 /min Bob Hunt MD Work Phone: [facility] 11-20-2020 09:17-0400 SaO2% (BldA) [Mass fraction] 96 % Bob Hunt MD Work Phone: [facility] 11-20-2020 09:17-0400 Systolic blood pressure 170 mm[Hg] Bob Hunt MD Work Phone: [facility] 11-20-2020 08:59-0400 Respiratory rate 17 /min Bob Hunt MD Work Phone: [facility] 11-20-2020 07:43-0400 Body height 157.5 cm Bob Hunt MD Work Phone: [facility] 11-20-2020 07:43-0400 Body mass index (BMI) [Ratio] 40.06 kg/m2 Bob Hunt MD Work Phone: [facility] 11-20-2020 07:43-0400 Body temperature 97.81 [degF] Bob Hunt MD Work Phone: [facility] 11-20-2020 07:43-0400 Body weight 99.34 kg Bob Hunt MD Work Phone: [facility] 11-07-2020 08:22-0400 Diastolic blood pressure 82 mm[Hg] Ryley Angelo PA-C Work Phone: [facility] 11-07-2020 08:22-0400 Heart rate 84 /min Ryley Angelo PA-C Work Phone: [facility] 11-07-2020 08:22-0400 Respiratory rate 16 /min Ryley Angelo PA-C Work Phone: [facility] 11-07-2020 08:22-0400 SaO2% (BldA) [Mass fraction] 98 % Ryley Angelo PA-C Work Phone: [facility] 11-07-2020 08:22-0400 Systolic blood pressure 148 mm[Hg] Ryley Angelo PA-C Work Phone: [facility] 07-14-2021 15:15-0400 Diastolic blood pressure 66 mm[Hg] Yoshi Holbrook DO Work Phone: [facility] 10-22-2020 15:15-0400 SaO2% (BldA) [Mass fraction] 94 % Yoshi Holbrook DO Work Phone: [facility] 10-22-2020 15:15-0400 Systolic blood pressure 136 mm[Hg] Yoshi Holbrook DO Work Phone: [facility] 10-22-2020 12:57-0400 Heart rate 81 /min Yoshi Holbrook DO Work Phone: [facility] 10-22-2020 12:57-0400 Respiratory rate 18 /min Yoshi Holbrook DO Work Phone: [facility] 10-22-2020 12:24-0400 Body height 157.5 cm Yoshi Holbrook DO Work Phone: [facility] 10-22-2020 12:24-0400 Body mass index (BMI) [Ratio] 39.14 kg/m2 Yoshi Holbrook DO Work Phone: [facility] 10-22-2020 12:24-0400 Body temperature 98.01 [degF] Yoshi Holbrook DO Work Phone: [facility] 10-22-2020 12:24-0400 Body weight 97.07 kg Yoshi Holbrook DO Work Phone: [facility] Encounters Encounter Date Encounter Type Care Provider Facility Start: 12-29-2023 End: 12-29-2023 ambulatory [facility] Start: 12-25-2023 End: 12-27-2023 Evaluation and management of inpatient [facility] Start: 11-25-2023 End: 11-25-2023 Emergency department patient visit [facility] Start: 11-02-2023 End: 11-02-2023 ambulatory [facility] Start: 10-14-2023 End: 10-14-2023 Emergency department patient visit CALLIE Jameson [facility] Start: 10-11-2023 End: 10-11-2023 Emergency department patient visit CALLIE WARDENHALL [facility] Start: 09-30-2023 End: 09-30-2023 ambulatory KHANH DIAZ [facility] Start: 09-30-2023 End: 09-30-2023 ambulatory SHADIA Lemus EDI [facility] Start: 08-25-2023 End: 08-25-2023 Office outpatient visit 25 minutes Kelly Carrasco PA-C Work Phone: [facility] Comment on above: Lumbar radiculopathy , chronic (Primary Dx); Degenerative lumbar spinal stenosis; Degenerative disc disease at L5-S1 level; Chronic bilateral low back pain, unspecified whether sciatica present; S/P total knee arthroplasty, left Start: 08-25-2023 End: 08-25-2023 ambulatory KELLY CARRASCO [facility] Start: 07-22-2023 End: 07-22-2023 Postop follow up visit related to original px Fredy Styles MD Work Phone: [facility] Comment on above: S/P TKR (total knee replacement), left (Primary Dx) Start: 07-22-2023 End: 07-22-2023 Subsequent hospital visit by physician Mariah [id number] [facility] Comment on above: S/P TKR (total knee replacement), left Start: 07-22-2023 End: 07-22-2023 ambulatory FREDY STYLES [facility] Start: 07-06-2023 End: 07-06-2023 Office outpatient visit 15 minutes Kelly Carrasco PA-C Work Phone: [facility] Comment on above: Degenerative lumbar spinal stenosis (Primary Dx); Lumbar radiculopathy, chronic; Degenerative disc disease at L5-S1 level; S/P total knee arthroplasty, left; Myalgia; Chronic bilateral low back pain, unspecified whether sciatica present Start: 07-06-2023 End: 07-06-2023 ambulatory KELLY C [facility] Start: 06-17-2023 End: 06-17-2023 Subsequent hospital visit by physician Mariah [email or web address] [facility] Comment on above: S/P TKR (total knee replacement), left Start: 06-17-2023 End: 06-17-2023 ambulatory [facility] Start: 06-17-2023 End: 06-17-2023 Postop follow up visit related to original px Fredy Styles MD Work Phone: [facility] Comment on above: S/P TKR (total knee replacement), left Start: 06-13-2023 End: 07-07-2023 ambulatory FREDY Lemus [facility] Start: 06-10-2023 ambulatory FREDY Lemus [facility] Start: 06-10-2023 End: 06-12-2023 Subsequent hospital visit by physician Fredy Styles MD Work Phone: [facility] 3 Comment on above: Arthritis of left kn ee (Primary Dx) Start: 06-07-2023 End: 06-07-2023 ambulatory KELLY C [facility] Start: 06-03-2023 End: 06-03-2023 ambulatory KELLY C [facility] Start: 06-03-2023 End: 06-03-2023 Subsequent hospital visit by physician Mariah Anderson-Arm 2 [facility] Comment on above: Arrived Start: 06-03-2023 End: 06-03-2023 Subsequent hospital visit by physician Barney Prieto MD Work Phone: [facility] [place] Comment on above: Lumbar radiculopathy Start: 05-31-2023 End: 06[facility]01-[facility] Start: 05-31-[facility]23 End: 05-31-2023 ambulatory FREDY Lemus [facility] Start: 05-31-2023 End: 05-31-2023 Subsequent hospital visit by physician Mariah Brooks-Donta Fluoro 1 [facility] Comment on above: Primary osteoarthrit is of left knee Left leg swelling; Localized edema Start: 05-30-2023 End: 05-30-2023 Emergency department patient visit Ryan Mehta MD Work Phone: [facility] Comment on above: Left leg pain (Prima ry Dx) Start: 05-30-2023 End: 05-31-2023 ambulatory JEFFERY DUKES [facility] Start: 05-30-2023 End: 05-30-2023 Telemedicine consultation with patient Jeffery Dukes PharmD Work Phone: [facility] Comment on above: Diabetes mellitus wi th stage 3 chronic kidney disease (CMS/HCC) (Primary Dx); Chronic obstructive pulmonary disease with acute exacerbation (CMS/HCC) Start: 05-25-2023 End: 05-25-2023 Assay of hemosiderin, quant Callie Mcdonough PA-C Work Phone: [facility] Work Phone: Start: 05-25-2023 End: 05-25-2023 Patient encounter procedure Callie Mcdonough PA-C Work Phone: [facility] Comment on above: Medicare annual well ness visit, subsequent (Primary Dx); Diabetes mellitus with stage 3 chronic kidney disease (CMS/HCC); Routine general medical examination at health care facility; Hypertension associated with diabetes (CMS/HCC); Class 3 severe obesity due to excess calories with serious comorbidity and body mass index (BMI) of 40.0 to 44.9 in adult (CMS/HCC); Low vitamin B12 level; Vitamin D deficiency; Acquired hypothyroidism; Cirrhosis of liver without ascites, unspecified hepatic cirrhosis type (CMS/HCC); Adenoma of right adrenal gland; Depression, major, recurrent, moderate (CMS/HCC); Arthritis of left knee; Chronic obstructive pulmonary disease with acute exacerbation (CMS/HCC); Advanced care planning/counseling discussion Start: 05-25-2023 End: 05-25-2023 ambulatory CALLIE Trino [facility] Start: 05-25-2023 End: 05-25-2023 [facility] general [facility] Start: 05-20-2023 End: 05-20-2023 Office outpatient visit 25 minutes Fredy Styles MD Work Phone: [facility] Comment on above: Primary osteoarthrit is of left knee (Primary Dx) Start: 05-20-2023 End: 05-20-2023 [address] Lem[address] [facility] Start: 05-19-2023 End: 05-20-2023 ambulatory CALLIE Jameson [facility] Start: 05-19-2023 End: 05-19-2023 Subsequent hospital visit by physician Rad External Film [facility] Comment on above: Arrived Start: 05-18-2023 End: 05-18-2023 Subsequent hospital visit by physician Mariah Noble Dxa [facility] Comment on above: Post-menopausal Encounter for screen ing mammogram for breast cancer Start: 05-18-2023 End: 05-18-2023 ambulatory CALLIE Jameson [facility] Start: 05-13-2023 End: 05-13-2023 ambulatory SHADIA DALEY [facility] Start: 05-13-2023 End: 05-13-2023 Subsequent hospital visit by physician Mariah Mri [facility] Comment on above: Primary osteoarthrit is of left knee Start: 05-09-2023 End: 05-10-2023 ambulatory JEFFERY DUKES [facility] Start: 05-09-2023 End: 05-09-2023 Telemedicine consultation with patient Jeffery Ryan Dukes PharmD Work Phone: [facility] Comment on above: Chronic obstructive pulmonary disease with acute exacerbation (CMS/HCC) (Primary Dx); Diabetes mellitus with stage 3 chronic kidney disease (CMS/HCC) Start: 05-09-2023 End: 05-09-2023 Office outpatient visit 15 minutes Shadia Daley 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 Work Phone: [facility] Comment on above: Primary osteoarthrit is of left knee (Primary Dx) Start: 05-09-2023 End: 05-09-[address] [facility] Start: 05-02-2023 End: 05-03-2023 ambulatory JEFFERY Flores ROBERT [facility] Start: 04-28-2023 End: 04-28-2023 Office outpatient visit 25 minutes Kelly Carrasco PA-C Work Phone: [facility] Comment on above: Lumbar radiculopathy , chronic (Primary Dx); Degenerative lumbar spinal stenosis; Degenerative disc disease at L5-S1 level; Arthritis of facet joint of lumbar spine Start: 04-28-2023 End: 04-28-2023 ambulatory KELLY CARRASCO [facility] Start: 04-20-2023 End: 04-20-2023 Subsequent hospital visit by physician Mariah Flores Cardiac Room [facility] Comment on above: Tachycardia; Heart palpitations; Acquired hypothyroidism Start: 04-20-2023 End: 04-20-2023 ambulatory [facility] Start: 04-18-2023 End: 04-18-2023 ambulatory [facility] Start: 04-13-2023 End: 04-13-2023 Subsequent hospital visit by physician Mariah Romano 1 [facility] Comment on above: Pain of left lower e xtremity; Leg swelling Start: 04-13-2023 End: 04-14-2023 ambulatory [facility] Start: 04-13-2023 End: 04-14-2023 Emergency department patient visit Ryan Mehta MD Work Phone: [facility] 3 Comment on above: Tachycardia (Primary Dx); Postural dizziness with presyncope; Chest pain, unspecified type; Acute pain of left knee; Pain and swelling of left lower leg; Pain in left leg; COPD exacerbation (CMS/HCC); Breast abrasion, left, initial encounter Start: 04-12-2023 End: 04-13-2023 ambulatory SHADIA DALEY [facility] Start: 04-05-2023 End: 05-09-2023 ambulatory BALBIR TAVARES [facility] Start: 04-04-2023 End: 04-04-2023 Subsequent hospital visit by physician Nakita [id number] Cr Nonv1 Bp/Holter/Ecg Resource [facility] Start: 04-04-2023 End: 04-05-2023 ambulatory [facility] Start: 04-04-2023 End: 04-05-2023 Emergency department patient visit Balbir Tavares DO Work Phone: [facility] 3 Comment on above: Acute pain of left k nee (Primary Dx); Tachycardia; Acute bronchitis, unspecified organism Start: 03-28-2023 End: 03-28-2023 Phys/qhp telephone evaluation 21-30 min Callie Mcdonough PA-C Work Phone: [facility] Comment on above: Gastroenteritis (Vipul faviola Dx); Diabetes mellitus with stage 3 chronic kidney disease (CMS/HCC); Calculus of gallbladder with chronic cholecystitis without obstruction; Cirrhosis of liver without ascites, unspecified hepatic cirrhosis type (CMS/HCC) Start: 03-28-2023 End: 03-28-2023 ambulatory [facility] Start: 03-08-2023 End: 03-08-2023 Office outpatient visit 25 minutes Callie Mcdonough PA-C Work Phone: [facility] Comment on above: Chronic obstructive pulmonary disease with acute exacerbation (CMS/HCC) (Primary Dx); Abdominal wall abscess; Type 2 diabetes mellitus with stage 3a chronic kidney disease, with long-term current use of insulin (CMS/HCC); Hypertension associated with diabetes (CMS/HCC); Class 2 severe obesity due to excess calories with serious comorbidity and body mass index (BMI) of 39.0 to 39.9 in adult (CMS/HCC); Diabetes mellitus with stage 3 chronic kidney disease (CMS/HCC) Start: 03-08-2023 End: 03-08-2023 ambulatory [facility] Start: 02-21-2023 End: 02-21-2023 Office outpatient visit 25 minutes Callie Mcdonough PA-C Work Phone: [facility] Comment on above: Abdominal wall absce ss (Primary Dx); Low vitamin B12 level; Acute non-recurrent maxillary sinusitis; Vitamin D deficiency; Hypomagnesemia; Acquired hypothyroidism; Hypertension associated with diabetes ([facility]); Class 3 severe obesity due to excess calories with serious comorbidity and body mass index (BMI) of 40.0 to 44.9 in adult ([facility]); Diabetes mellitus with stage 3 chronic kidney disease ([facility]); Gastroesophageal reflux disease without esophagitis; Chronic obstructive pulmonary disease with acute exacerbation ([facility]) Start: 02-21-2023 End: 02-21-2023 ambulatory [facility] Start: 02-17-2023 End: 02-17-2023 Erroneous Encounter Callie TALAMANTESC Work Phone: [facility] Comment on above: Canceled (Patient) Start: 02-17-2023 ambulatory [facility] Start: 02-07-2023 End: 02-07-2023 ambulatory [facility] Start: 02-07-2023 End: 02-08-2023 ambulatory [facility] Start: 02-07-2023 End: 02-07-2023 Postop follow up visit related to original px Shadia Lemus [place] 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 Work Phone: [facility] Comment on above: Primary osteoarthrit is of left knee (Primary Dx); Acute pain of left knee Start: 01-31-2023 End: 01-31-2023 ambulatory [facility] Start: 01-26-2023 End: 01-26-2023 Erroneous Encounter Callie TALAMANTESC Work Phone: [facility] Comment on above: Canceled (Other: Err or) Start: 01-26-2023 ambulatory [facility] Start: 01-24-2023 End: 01-24-2023 ambulatory [facility] Start: 01-19-2023 End: 01-19-2023 Phys/qhp telephone evaluation 11-20 min Nayana Miller 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 Work Phone: [facility] Comment on above: Acute non-recurrent frontal sinusitis (Primary Dx); Acute cough Start: 01-19-2023 End: 01-19-2023 ambulatory NAYANA D [facility] Ambulatory Start: 01-04-2023 Patient encounter procedure Callie Mcdonough Work Phone: [facility] Work Phone: Start: 01-04-2023 ambulatory PA-C CALLIE MCDONOUGH Facility:[id number] Start: 12-28-2022 Office outpatient vi sit 15 minutes Callie Mcdonough Work Phone: [facility] 300 Work Phone: Start: 12-07-2022 AUDIT Callie Quinn elena Work Phone: [facility] Work Phone: Start: 11-26-2022 Office outpatient vi sit 15 minutes Callie Mcdonough Work Phone: [facility] 300 Work Phone: Start: 11-11-2022 AUDIT Callie Wardfrancie parker Work Phone: [facility] Work Phone: Start: 11-04-2022 AUDIT Callie Jameson Kai parker Work Phone: [facility] Work Phone: Start: 10-18-2022 End: 10-18-2022 Emergency department patient visit Davide Mitchell [facility] Emergency 09 Start: 10-18-2022 End: 10-18-2022 Office outpatient visit 40 minutes Brynn Jose MD Work Phone: [facility] Comment on above: Abdominal pain, gene ralized (Primary Dx); Cirrhosis of liver without ascites, unspecified hepatic cirrhosis type (CMS/HCC); Abdominal guarding; Hypertension associated with diabetes (CMS/HCC); Gastroesophageal reflux disease without esophagitis; Calculus of gallbladder with chronic cholecystitis without obstruction; Abdominal pain, acute, right upper quadrant Start: 10-06-2022 AUDIT Callie parker Work Phone: [facility] Work Phone: Start: 09-17-2022 End: 09-17-2022 ambulatory PA-C CALLIE MCDONOUGH Facility:[id number] Start: 09-17-2022 End: 09-17-2022 Subsequent hospital visit by physician Miguel Angelo MD Work Phone: [facility] Comment on above: Radiculopathy, lumba r region; Spinal stenosis, lumbar region with neurogenic claudication; Low back pain, unspecified; Pain in leg, unspecified; Type 2 diabetes mellitus without complications (CMS/HCC); Tobacco use; 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 (CMS/HCC); Unspecified cirrhosis of liver (CMS/HCC); Morbid (severe) obesity due to excess calories (CMS/HCC); Body mass index (BMI) 40.0-44.9, adult (CMS/HCC); Chronic obstructive pulmonary disease, unspecified (CMS/HCC); Depression, unspecified; Pain, unspecified Start: 09-14-2022 Telephone encounter Callie jones Work Phone: [facility] Work Phone: Start: 09-09-2022 Chart Update Callie parker Work Phone: [facility] Work Phone: Start: 09-03-2022 ambulatory PA-Monica MCDONOUGH Facility:[id number] Start: 08-20-2022 End: 08-21-2022 ambulatory CALLIE MCDONOUGH [facility] Start: 08-18-2022 Office outpatient ne w 45 minutes Callie Mcdonough Work Phone: [facility] d 120 Work Phone: Start: 08-12-2022 Chart Update Callie parker Work Phone: [facility] Work Phone: Start: 08-05-2022 ambulatory PA-C CALLIE MCDONOUGH Facility:[id number] Start: 08-04-2022 ambulatory PA-C CALLIEPADMINI WARDENHALL Facility:[id number] Start: 07-30-2022 ambulatory PA-C CALLIEPADMINI WARDENHALL Facility:[id number] Start: 07-23-2022 Office consultation new/estab patient 60 min Callie Mcdonough Work Phone: [facility] Work Phone: Start: 07-22-2022 End: 07-22-2022 Assay of hemosiderin, quant Callie Trino Sharonda PA-C Work Phone: [facility] Work Phone: Start: 07-22-2022 End: 07-22-2022 Patient encounter procedure Callie Wardenhall PA-C Work Phone: [facility] Comment on above: Routine general medi jessica examination at [facility] facility (Primary Dx); Abdominal lymphadenopathy; Acquired hypothyroidism; Vulvovaginal candidiasis; Calculus of gallbladder with chronic cholecystitis without obstruction; Hypomagnesemia; Diabetes mellitus with stage 3 chronic kidney disease (CMS/HCC); Medicare annual wellness visit, subsequent; Advanced care planning/counseling discussion; Hypertension, essential; Degenerative lumbar spinal stenosis; Cirrhosis of liver without ascites, unspecified hepatic cirrhosis type (CMS/HCC); Class 2 severe obesity due to excess calories with serious comorbidity and body mass index (BMI) of 38.0 to 38.9 in adult (CMS/HCC); Depression, major, recurrent, moderate (CMS/HCC) Start: 07-20-2022 ambulatory PA-C CALLIE MCDONOUGH Facility:[id number] Start: 07-16-2022 End: 07-17-2022 ambulatory CALLIE MCDONOUGH [facility] Start: 07-16-2022 End: 07-16-2022 Office outpatient visit 25 minutes Nayana ROE Work Phone: [facility] Comment on above: Gross hematuria ([facility] faviola Dx); Dysuria; Breast cancer screening by mammogram; Post-menopausal; Class 2 severe obesity due to excess calories with serious comorbidity and body mass index (BMI) of 38.0 to 38.9 in adult (CMS/HCC) Start: 07-08-2022 End: 07-08-2022 Office outpatient visit 25 minutes Callie Mcdonough PA-C Work Phone: [facility] Comment on above: Right upper quadrant abdominal pain (Primary Dx); Chronic constipation; Abnormal biliary HIDA scan; Abdominal lymphadenopathy; Lumbar radiculopathy, chronic; Hypertension, essential; Diabetes mellitus with stage 3 chronic kidney disease ([facility]/HCC); Depression, major, recurrent, moderate ([facility]/HCC) Start: 07-05-2022 Office outpatient ne w 30 minutes Callie Mcdonough Work Phone: [facility] Work Phone: Start: 07-03-2022 End: 07-03-2022 Emergency department patient visit MD DAVIDE MITCHELL Facility:[id number] Start: 07-02-2022 ambulatory OLIVIA MCDONOUGH Facility:[id number] Start: 06-12-2022 End: 06-13-2022 Emergency department patient visit Reta Barlow [facility] Emergency 04 Start: 05-13-2022 ambulatory Ms. Shadia Daley Facility:[id number] Start: 05-10-2022 AUDIT Callie parker Work Phone: [facility] Work Phone: Start: 04-28-2022 Chart Update Callie parker Work Phone: [facility] Work Phone: Start: 04-28-2022 Patient encounter procedure Callie Mcdonough Work Phone: [facility] 300 Work Phone: Start: 04-22-2022 Office outpatient ne w 45 minutes Callie Mcdonough Work Phone: [facility] Work Phone: Start: 04-22-2022 Patient encounter procedure Callie Mcdonough Work Phone: [facility] Work Phone: Start: 04-01-2022 End: 04-01-2022 Emergency department patient visit Balbir Tavares [facility] Emergency 02 Start: 01-28-2022 Chart Update Ida vogel Work Phone: [facility] Work Phone: Start: 01-25-2022 ambulatory Ms. Kelly Carrasco Facility:[id number] Start: 01-21-2022 Patient encounter procedure No PCP None [facility] Work Phone: Start: 01-21-2022 ambulatory Ms. Kelly Carrasco Facility:[id number] Start: 12-03-2021 FUV, Provider: Kelly Carrasco, Status: Pen, Time: 8:15 AM No PCP None [facility] Work Phone: Start: 12-03-2021 Patient encounter procedure No PCP None [facility] Work Phone: Start: 12-02-2021 Chart Update No PCP None [facility] Work Phone: Start: 11-18-2021 Chart Update No PCP None [facility] Work Phone: Start: 11-12-2021 Patient encounter procedure No PCP None [facility] Work Phone: Start: 10-29-2021 Patient encounter procedure No PCP None [facility] Work Phone: Start: 10-05-2021 Chart Update No PCP None [facility] Work Phone: Start: 10-02-2021 [id number], [facility], Status: Pen, Time: 9:00 AM No PCP None [facility] Work Phone: Start: 09-29-2021 Office outpatient vi sit 25 minutes No PCP None [facility] 300 Work Phone: Start: 09-29-2021 Patient encounter procedure No PCP None [facility] Work Phone: Start: 09-22-2021 End: 09-22-2021 Emergency department patient visit Ryan Mehta [facility] Emergency 10 Start: 09-17-2021 Office outpatient vi sit 15 minutes No PCP None -[facility] Work Phone: Start: 09-11-2021 JALEESA, Provider : Shadia Daley, Status: Pen, Time: 10:00 AM No PCP None -[facility] Work Phone: Start: 09-10-2021 Office outpatient ne w 45 minutes No PCP None -[facility] Work Phone: Start: 09-10-2021 Patient encounter procedure No PCP None [facility] Work Phone: Start: 09-03-2021 End: 09-03-2021 Emergency department patient visit Ryan Mehta [facility] Emergency 11 Start: 09-01-2021 End: 09-01-2021 Emergency department patient visit Lakshmi Cortez [facility] Emergency 04 Start: 09-01-2021 End: 09-01-2021 Emergency department patient visit Shannen Evy [facility] 01 Start: 07-07-2021 End: 07-07-2021 Emergency department patient visit Marty Trini [facility] Emergency 08 Start: 01-15-2021 ambulatory [facility] Ambulatory Start: 01-08-2021 End: 01-08-2021 ambulatory [facility] Start: 01-08-2021 End: 01-08-2021 Subsequent hospital visit by physician Bob Hunt MD Work Phone: [facility] Procedural Care Unit Start: 11-20-2020 End: 11-20-2020 ambulatory [facility] Start: 11-20-2020 End: 11-20-2020 Subsequent hospital visit by physician Bob Hunt MD Work Phone: [facility] Interventional Radiology Start: 11-07-2020 End: 11-07-2020 ambulatory [facility] Start: 11-07-2020 End: 11-07-2020 Office outpatient new 45 minutes Ryley Angelo PA-C Work Phone: [facility] Comment on above: 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 (Primary Dx); Chronic left-sided low back pain with left-sided sciatica; Facet arthropathy, lumbar; Lumbar degenerative disc disease Start: 10-31-2020 End: 11-01-2020 ambulatory PROVIDER NOT IN SYSTEM [facility] Start: 10-26-2020 End: 10-26-2020 Emergency department patient visit [facility] Start: 10-22-2020 End: 10-22-2020 Emergency department patient visit [facility] Start: 10-22-2020 End: 10-22-2020 Emergency department patient visit Yoshi Mora DO Work Phone: [facility] Emergency Department Start: 09-08-2020 End: 09-09-2020 ambulatory [facility] Start: 06-10-2020 End: 06-14-2020 Patient encounter procedure PHYSICIAN NEENA [facility] Start: 03-10-2020 End: 03-14-2020 Patient encounter procedure [facility] Start: 12-05-2019 End: 12-09-2019 [facility] Start: 11-16-2019 End: 11-16-2019 Patient encounter procedure [facility] Start: 08-28-2019 End: 09-01-2019 Patient encounter procedure [facility] Start: 07-26-2019 End: 07-30-2019 Patient encounter procedure [facility] Start: 02-08-2019 Patient encounter procedure [facility] Start: 02-06-2019 End: 02-10-2019 Patient encounter procedure [facility]Y [facility] Start: 04-14-2018 Patient encounter procedure Li Grimaldo Facility:[facility] Start: 11-15-2017 Patient encounter procedure Ujjagjit Rubi Facility:[facility] Start: 07-26-2017 End: 07-26-2017 Emergency department patient visit Malcolm Mayes Facility:[facility] Start: 07-08-2017 End: 07-08-2017 Emergency department patient visit Americo Walker Facility:[facility] Start: 07-05-2017 End: 07-05-2017 Emergency department patient visit Daniebrannon Francie Alvarez Facility:[facility] Procedures Date Procedure Procedure Detail Performing Clinician Start: 07-22-2023 XR KNEE LEFT 3 VIEWS RA REEMA WARDSHARONDA Start: 07-22-2023 Radiologic examinati on knee 3 views Fredy Styles MD Work Phone: Start: 06-17-2023 COMPRESSION STOCKING S 18-30 [facility] NAYANA MILLER Start: 06-17-2023 XR KNEE LEFT 3 VIEWS RA REEMA WARDSHARONDA Start: 06-17-2023 Radiologic examinati on knee 3 views Fredy Styles MD Work Phone: Start: 06-12-2023 Glucose quantitative blood xcpt reagent strip Fredy Styles MD Work Phone: Start: 06-12-2023 Glucose quantitative blood xcpt reagent strip Fredy Styles MD Work Phone: Start: 06-12-2023 Basic metabolic pane l calcium total July Trokhimenko 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 Work Phone: Start: 06-11-2023 Glucose quantitative blood xcpt reagent strip Fredy Styles MD Work Phone: Start: 06-11-2023 Glucose quantitative blood xcpt reagent strip Fredy Styles MD Work Phone: Start: 06-11-2023 Radiologic exam ches t 2 views July Trokhimenko 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 Work Phone: Start: 06-11-2023 End: 06-11-2023 Basic metabolic panel calcium total July Trokhimenko 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 Work Phone: Start: 06-11-2023 Glucose quantitative blood xcpt reagent strip Fredy Styles MD Work Phone: Start: 06-11-2023 Basic metabolic pane l calcium total Fredy Styles MD Work Phone: Start: 06-10-2023 Glucose quantitative blood xcpt reagent strip Fredy Styles MD Work Phone: Start: 06-10-2023 Glucose quantitative blood xcpt reagent strip Fredy Styles MD Work Phone: Start: 06-10-2023 RESPIRATORY CARE KATARINA LUATION ONLY Fredy Styles MD Work Phone: Start: 06-10-2023 VERAB/VERIFY ABORH Sabino Styles MD Work Phone: Start: 06-10-2023 Glucose quantitative blood xcpt reagent strip Fredy Styles MD Work Phone: Start: 06-03-2023 XR tomography Unspec ified body region Kelly Carrasco PA-C Work Phone: Start: 06-03-2023 Glucose quantitative blood xcpt reagent strip Barney Prieto MD Work Phone: Start: 05-31-2023 MICROSCOPIC ONLY, URINE CALLIE MCDONOUGH Start: 05-31-2023 URINALYSIS WITH REFL EX MICROSCOPIC CALLIE WARDENHALL Start: 05-31-2023 CBC panel - Blood by Automated count CALLIE MCDONOUGH Start: 05-31-2023 Comprehensive metabo lic 2000 panel - Serum or Plasma CALLIE MCDONOUGH Start: 05-31-2023 TYPE AND SCREEN CALLIE MCDONOUGH Start: 05-31-2023 XR CHEST 2 VIEWS CALLIE WARDENHALL Start: 05-31-2023 VASC US LOWER EXTREM ITY VENOUS DUPLEX LEFT CALLIE KAYEALL Start: 05-31-2023 ECG 12-LEAD CALLIE AMERICO RUSSO Start: 05-31-2023 Radiologic exam ches t 2 views Fredy Styles MD Work Phone: Start: 05-31-2023 Dup-scan xtr veins unilateral/limited study Ryan Mehta MD Work Phone: Start: 05-31-2023 Ecg routine ecg w/le ast 12 lds trcg only w/o i&r Fredy Styles MD Work Phone: Start: 05-30-2023 [facility] CALLIE WARDENHALL Start: 05-19-2023 BI TRANSFER OF OUTSI DE FILMS CALLIE WARDENHALL Start: 05-19-2023 Study Interpretation of outside study Callie Jameson Sharonda TALAMANTESC Work Phone: Start: 05-18-2023 DEXA BONE DENSITY MIRANDA MCDONOUGH Start: 05-18-2023 BI MAMMO BILATERAL SCREENING TOMOSYNTHESIS CALLIE WARDENHALL Start: 05-18-2023 Dxa bone density fabiana dy 1/> sites axial skel Callie Jameson Sharonda TALAMANTESC Work Phone: Start: 05-18-2023 Mammography Callie Del Cid rafaela PAVasquezC Work Phone: Start: 05-13-2023 MR KNEE LEFT WO IV CONTRAST CALLIE SHARONDA Start: 05-13-2023 Mri any jt lower ext rem w/o contrast matrl Shadia Daley 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 Work Phone: Start: 05-09-2023 FOLLOW UP IN [facility] CALLIE WARDENHALL Start: 05-02-2023 AMB REFERRAL TO [facility] CALLIE WARDENHALL Start: 04-20-2023 HOLTER OR EVENT CARD IAC MONITOR CALLIE WARDENHALL Start: 04-14-2023 DISCHARGE PATIENT MIRANDA MCDONOUGH Start: 04-14-2023 ADULT DISCHARGE DIET RA REEMA MCDONOUGH Start: 04-14-2023 DISCHARGE ACTIVITY JOSE MCDONOUGH Start: 04-14-2023 NOTIFY PROVIDER (DO NOT PROMPT FOR PARAMETERS) CALLIE WARDENHALL Start: 04-14-2023 Glucose quantitative blood xcpt reagent strip Rosendo Gonzalez MD Work Phone: Start: 04-14-2023 Glucose [Mass/volume ] in Serum or Plasma CALLIE WARDENHALL Start: 04-14-2023 ECG 12-LEAD CALLIE LEAVITTDILIPWili Start: 04-14-2023 Ecg routine ecg w/le ast 12 lds trcg only w/o i&r Willa Del Castillo PA-C Work Phone: Start: 04-14-2023 CBC panel - Blood by Automated count CALLIE MCDONOUGH Start: 04-14-2023 Comprehensive metabo lic 2000 panel - Serum or Plasma CALLIE MCDONOUGH Start: 04-14-2023 Hemoglobin A1c/Hemoglobin.total in Blood CALLIE MCDONOUGH Start: 04-14-2023 Magnesium [Mass/volu me] in Serum or Plasma CALLIE MCDONOUGH Start: 04-14-2023 End: 04-14-2023 Comprehensive metabolic panel Daniela Up MD Work Phone: Start: 04-13-2023 Glucose [Mass/volume ] in Serum or Plasma CALLIE MCDONOUGH Start: 04-13-2023 Glucose quantitative blood xcpt reagent strip Rosendo Gonzalez MD Work Phone: Start: 04-13-2023 Glucose [Mass/volume ] in Serum or Plasma CALLIE MCDONOUGH Start: 04-13-2023 VASC US LOWER EXTREM ITY VENOUS DUPLEX LEFT CALLIE MCDONOUGH Start: 04-13-2023 TRANSTHORACIC ECHO ( TTE) COMPLETE CALLIE MCDONOUGH Start: 04-13-2023 Glucose quantitative blood xcpt reagent strip Rosendo Gonzalez MD Work Phone: Start: 04-13-2023 Magnesium [Mass/volu me] in Serum or Plasma CALLIE MCDONOUGH Start: 04-13-2023 Phosphate [Mass/volu me] in Serum or Plasma CALLIE MCDONOUGH Start: 04-13-2023 THYROXINE, FREE CALLIE MCDONOUGH Start: 04-13-2023 TSH WITH REFLEX TO F REE T4 IF ABNORMAL CALLIE MCDONOUGH Start: 04-13-2023 Dup-scan xtr veins unilateral/limited study Willa Del Castillo PA-C Work Phone: Start: 04-13-2023 Echo tthrc r-t 2d w/wom-mode compl spec&colr d Willa Del Castillo PA-C Work Phone: Start: 04-13-2023 Assay of magnesium Chel Del Castillo PA-C Work Phone: Start: 04-13-2023 Glucose [Mass/volume ] in Serum or Plasma CALLIE MCDONOUGH Start: 04-13-2023 IP CONSULT TO CARDIOLOGY CALLIE MCDONOUGH Start: 04-13-2023 TELEMETRY MONITORING RA REEMA MCDONOUGH Start: 04-13-2023 Glucose quantitative blood xcpt reagent strip Rosendo Gonzalez MD Work Phone: Start: 04-13-2023 VASC US LOWER EXTREM ITY VENOUS DUPLEX LEFT CALLIE MCDONOUGH Start: 04-13-2023 REASON FOR NO DVT PROPHYLAXIS - HOSPITAL ADMISSION - MECHANICAL CALLIE MCDONOUGH Start: 04-13-2023 IP CONSULT TO CARDIOLOGY CALLIE MCDONOUGH Start: 04-13-2023 Glucose [Mass/volume ] in Serum or Plasma CALLIE MCDONOUGH Start: 04-13-2023 INITIATE OBSERVATION STATUS CALLIE MCDONOUGH Start: 04-13-2023 ED TO FLOOR BED REQUEST CALLIE MCDONOUGH Start: 04-13-2023 Glucose quantitative blood xcpt reagent strip Rosendo Gonzalez MD Work Phone: Start: 04-13-2023 ECG 12-LEAD CALLIE RUSSO Start: 04-13-2023 CT ANGIO CHEST FOR PULMONARY EMBOLISM CALLIE MCDONOUGH Start: 04-13-2023 aPTT in Blood by Coagulation assay CALLIE MCDONOUGH Start: 04-13-2023 Basic metabolic 2000 panel - Serum or Plasma CALLIE MCDONOUGH Start: 04-13-2023 CBC W Auto Different ial panel - Blood CALLIE MCDONOUGH Start: 04-13-2023 D-DIMER, NON VTE CALLIE MCDONOUGH Start: 04-13-2023 Magnesium [Mass/volu me] in Serum or Plasma CALLIE MCDONOUGH Start: 04-13-2023 Natriuretic peptide B [Mass/volume] in Blood CALLIE MCDONOUGH Start: 04-13-2023 PROTIME-INR CALLIE RUSSO Start: 04-13-2023 TROPONIN I, HIGH SENSITIVITY CALLIE MCDONOUGH Start: 04-13-2023 Ecg routine ecg w/le ast 12 lds trcg only w/o i&r Ryan Mehta MD Work Phone: Start: 04-13-2023 Ct angiography chest w/contrast/noncontrast Ryan Mehta MD Work Phone: Start: 04-13-2023 Basic metabolic pane l calcium total Ryan Mehta MD Work Phone: Start: 04-13-2023 Thyrotropin [Units/v olume] in Serum or Plasma Mariah 1 Start: 04-05-2023 Glucose [Mass/volume ] in Serum or Plasma CALLIE MCDONOUGH Start: 04-05-2023 Glucose quantitative blood xcpt reagent strip Vivian Brice MD Work Phone: Start: 04-05-2023 Glucose [Mass/volume ] in Serum or Plasma CALLIE MCDONOUGH Start: 04-05-2023 Glucose quantitative blood xcpt reagent strip Vivian Brice MD Work Phone: Start: 04-05-2023 Basic metabolic 2000 panel - Serum or Plasma CALLIE MCDONOUGH Start: 04-05-2023 CBC panel - Blood by Automated count CALLIE MCDONOUGH Start: 04-05-2023 Magnesium [Mass/volu me] in Serum or Plasma CALLIE MCDONOUGH Start: 04-05-2023 Basic metabolic pane l calcium total Minna C Roosevelt 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 Work Phone: Start: 04-04-2023 Glucose [Mass/volume ] in Serum or Plasma CALLIE MCDONOUGH Start: 04-04-2023 Glucose quantitative blood xcpt reagent strip Vivian Brice MD Work Phone: Start: 04-04-2023 Glucose [Mass/volume ] in Serum or Plasma CALLIE MCDONOUGH Start: 04-04-2023 FULL CODE CALLIE AMERICO LEAVITTDILIPWili Start: 04-04-2023 IP CONSULT TO RESPIR ATORY CARE CALLIE MCDONOUGH Start: 04-04-2023 TELEMETRY MONITORING RA REEMA MCDONOUGH Start: 04-04-2023 Glucose quantitative blood xcpt reagent strip Vivian Brice MD Work Phone: Start: 04-04-2023 Bacteria identified in Blood by Culture CALLIE MCDONOUGH Start: 04-04-2023 INITIATE OBSERVATION STATUS CALLIE MCDONOUGH Start: 04-04-2023 ECG 12-LEAD CALLIE RUSSO Start: 04-04-2023 INFLUENZA A AND B PCR Adry MCDONOUGH Start: 04-04-2023 SARS-COV-2 PCR, SYMPTOMATIC CALLIE MCDONOUGH Start: 04-04-2023 ED TO FLOOR BED REQUEST CALLIE MCDONOUGH Start: 04-04-2023 Magnesium [Mass/volu me] in Serum or Plasma CALLIE MCDONOUGH Start: 04-04-2023 TROPONIN I, HIGH SENSITIVITY CALLIE MCDONOUGH Start: 04-04-2023 TSH WITH REFLEX TO F REE T4 IF ABNORMAL CALLIE MCDONOUGH Start: 04-04-2023 XR KNEE LEFT 4+ VIEWS Adry MCDONOUGH Start: 04-04-2023 Culture bacterial bl ood aerobic w/id isolates Minna Albert 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 Work Phone: Start: 04-04-2023 End: 04-04-2023 Ecg routine ecg w/least 12 lds trcg only w/o i&r Balbir Tavares DO Work Phone: Start: 04-04-2023 Influenza virus A an d B RNA [Identifier] in Unspecified specimen by JACKIE with probe detection Balbir Taavres DO Work Phone: Start: 04-04-2023 SARS-CoV-2 (COVID-19 ) RNA [Presence] in Respiratory specimen by JACKIE with probe detection Balbir Tavares DO Work Phone: Start: 04-04-2023 Assay of magnesium Nolvia Tavares DO Work Phone: Start: 04-04-2023 Radiologic exam knee complete 4/more views Balbir Tavares DO Work Phone: Start: 04-04-2023 EXTRA URINE HALEY TUBE Adry MCDONOUGH Start: 04-04-2023 URINALYSIS MICROSCOP IC WITH REFLEX CULTURE CALLIE MCDONOUGH Start: 04-04-2023 URINALYSIS WITH REFL EX CULTURE AND MICROSCOPIC CALLIE MCDONOUGH Start: 04-04-2023 CT ANGIO CHEST FOR PULMONARY EMBOLISM CALLIE MCDONOUGH Start: 04-04-2023 aPTT in Blood by Coagulation assay CALLIE MCDONOUGH Start: 04-04-2023 CBC W Auto Different ial panel - Blood CALLIE MCDONOUGH Start: 04-04-2023 Comprehensive metabo lic 2000 panel - Serum or Plasma CALLIE MCDONOUGH Start: 04-04-2023 PROTIME-INR CALLIE RUSSO Start: 04-04-2023 TROPONIN I, HIGH SENSITIVITY CALLIE MCDONOUGH Start: 04-04-2023 INSERT PERIPHERAL IV RA REEMA MCDONOUGH Start: 04-04-2023 EXTRA URINE HALEY TUBE C amdanuta Tavares DO Work Phone: Start: 04-04-2023 Urinalysis complete W Reflex Culture panel - Urine Balbir Tavares DO Work Phone: Start: 04-04-2023 Urnls dip stick/tabl et reagent auto microscopy Balbir Tavares DO Work Phone: Start: 04-04-2023 Ct angiography chest w/contrast/noncontrast Balbir Tavares DO Work Phone: Start: 04-04-2023 Comprehensive metabo lic panel Balbir Tavares DO Work Phone: Start: 04-04-2023 Thyrotropin [Units/v olume] in Serum or Plasma Balbir Tavares DO Work Phone: Start: 02-09-2023 Arthrocentesis aspir &/inj major jt/bursa w/us Shadia Daley 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 Work Phone: Start: 02-07-2023 POINT OF CARE ULTRAS OUND NO CHARGE NAYANA MILLER Start: 02-07-2023 CBC W Auto Different ial panel - Blood CALLIE MCDONOUGH Start: 02-07-2023 Comprehensive metabo lic 1999 panel - Serum or Plasma CALLIE MCDONOUGH Start: 02-07-2023 Cyanocobalamin vitamin b-12 CALLIE MCDONOUGH Start: 02-07-2023 Hemoglobin A1c/Hemoglobin.total in Blood CALLIE MCDONOUGH Start: 02-07-2023 Lipid panel CALLIE RUSSO Start: 02-07-2023 Magnesium [Mass/volu me] in Serum or Plasma CALLIE MCDONOUGH Start: 02-07-2023 THYROXINE, FREE CALLIE WARDENHALL Start: 02-07-2023 VITAMIN D 25-HYDROXY,TOTAL CALLIE MCDONOUGH Start: 02-07-2023 Lipid 1996 panel - S batool or Plasma Shadia Daley 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 Work Phone: Start: 02-07-2023 Thyrotropin [Units/v olume] in Serum or Plasma Shadia Edi 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 Work Phone: Start: 01-31-2023 LARGE JOINT INJECTION/ARTHROCENTESIS NAYANA MILLER Start: 01-31-2023 POINT OF CARE ULTRAS OUND NO CHARGE NAYANA MILLER Start: 01-24-2023 LARGE JOINT INJECTION/ARTHROCENTESIS NAYANA MILLER Start: 01-24-2023 POINT OF CARE ULTRAS OUND NO CHARGE NAYANA MILLER Start: 10-18-2022 End: 10-18-2022 EKG impression Davide Mitchell Start: 09-17-2022 RFA Unspecified body region Limited Views for therapy or embolization or infusion W contrast via existing catheter Miguel Angelo MD Work Phone: Start: 09-17-2022 Glucose [Mass/volume ] in Serum or Plasma Miguel Angelo MD Work Phone: Start: 09-17-2022 Epidural steroid injection Callie Mcdonough Work Phone: Comment on above: L5-S1 JOSE; Start: 08-20-2022 CBC W Auto Different ial panel - Blood CALLIEPADMINI WARDSHARONDA Start: 08-20-2022 Comprehensive metabo lic 2000 panel - Serum or Plasma CALLIEPADMINI WARDSHARONDA Start: 08-20-2022 Cyanocobalamin vitamin b-12 CALLIE SHARONDA Start: 08-20-2022 Hemoglobin A1c/Hemoglobin.total in Blood CALLIEPADMINI WARDSHARONDA Start: 08-20-2022 Magnesium [Mass/volu me] in Serum or Plasma CALLIEPADMINI WARDSHARONDA Start: 08-20-2022 VITAMIN D 25-HYDROXY,TOTAL CALLIEPADMINI WARDSHARONDA Start: 08-11-2022 Follow-up visit Start: 07-16-2022 Urnls dip stick/tabl et rgnt auto w/o microscopy Nayana Miller 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 Work Phone: Start: 07-16-2022 Lipid 1996 panel - S batool or Plasma Callie Mcdonough PA-C Work Phone: Start: 07-16-2022 Thyrotropin [Units/v olume] in Serum or Plasma Callie Mcdonough PA-C Work Phone: Start: 07-14-2022 Follow-up visit Start: 06-18-2022 Follow-up visit Start: 06-12-2022 End: 06-13-2022 EKG impression Reta Barlow Start: 12-25-2021 Local anesthetic fac et joint nerve block No PCP None Comment on above: Bilat L4-S1 MBB; Start: 09-22-2021 End: 09-22-2021 EKG impression Balbir Tavares Start: 09-01-2021 End: 09-01-2021 EKG impression Lakshmi Cortez Start: 07-07-2021 End: 07-07-2021 EKG impression Marty Alvaradotejas Start: 01-08-2021 CV IR INJECTION SACROILIAC Ryley Angelo PA-C Work Phone: Start: 11-20-2020 CV IR INJECTION SACROILIAC Ryley TALAMANTESC Work Phone: Start: 10-22-2020 Gluc bld gluc mntr d ev cleared fda spec home use Yoshi Mora DO Work Phone: Start: 10-22-2020 Glucose measurement [facility] Start: 10-22-2020 Ct abdomen & pelvis w/o contrast material Yoshi Mora DO Work Phone: Start: 10-22-2020 End: 10-22-2020 Basic metabolic panel calcium total Yoshi Mora DO Work Phone: Start: 10-22-2020 OBTAIN VENOUS BLOOD GASES AND PERFORM Yoshi Mora DO Work Phone: Start: 10-22-2020 Urnls dip stick/tabl et reagent auto microscopy Yoshitameka Mora DO Work Phone: Start: 10-22-2020 Glucose measurement [facility] Start: 04-11-2020 Colonoscopy Callie russo PA-C Work Phone: Start: 04-11-2020 Colonoscopy Callie Trino jones Work Phone: Comment on above: - [facility]- NORMAL. REPEAT IN 10 YEARS; Start: 03-10-2020 Adult depression scr eening assessment Yoshi Mora DO Work Phone: Start: 11-03-2018 Mammography Yoshi patel DO Work Phone: Start: 05-08-2018 Microalbumin [Mass/v olume] in Urine by Test strip Yoshi Mora DO Work Phone: Start: 01-29-2015 Microscopic observat ion [Identifier] in Cervix by Cyto stain Yoshi Mora DO Work Phone: Start: 04-11-2014 Oophorectomy Callie jones Work Phone: Comment on above: - RIGHT; Start: 01-04-2013 Colonoscopy Yoshi patel DO Work Phone: Dilation and curettage Miranda Mcdonough Work Phone: Laparoscopic cholecystectomy Callie Mcdonough Work Phone: Oophorectomy No PCP None Repair of umbilical hernia R lamar Mcdonough Work Phone: Plan of Treatment Date Care Activity Detail Author Start: 04-01-2032 DTaP/Tdap/Td Vaccines (2 - Td or Tdap) DTaP/Tdap/Td Vaccines (2 - Td or Tdap) [facility] Start: 04-11-2030 Screening for malignant neoplasm of colon [facility] Start: 05-26-2024 Medicare Annual Wellness Visit Medicare Annual Wellness Visit (AWV) [facility] Start: 05-18-2024 Screening for malignant neoplasm of breast Mammogram [facility] Start: 04-13-2024 Thyroid stimulating hormone measurement TSH Level [facility] Start: 04-04-2024 Thyroid stimulating hormone measurement TSH Level [facility] Start: 02-08-2024 Lipid panel Lipid Panel [facility] Start: 02-08-2024 Thyroid stimulating hormone measurement TSH Level [facility] Start: 12-11-2023 Influenza vaccination Influenza Vaccine (Season Ended) [facility] Start: 09-30-2023 End: 09-30-2023 Patient encounter procedure 09/30/2023 11:00 AM EDT Office Visit [facility] [address] [place] [id number] Shadia Daley, 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 [address] [facility] [place] [address] [facility] Start: 09-08-2023 End: 09-08-2023 Patient encounter procedure 09/08/2023 8:20 AM EDT Office Visit [facility] [address] [facility] [place] [address] Callie Mcdonough, PA-C [address] [place] [place] [address] [facility] Start: 08-23-2023 End: 05-25-2024 25-hydroxyvitamin D3 [Mass/volume] in Serum or Plasma Vitamin D 25-Hydroxy,Total (for eval of Vitamin D levels) Lab Routine Vitamin D deficiency Expected: 08/23/2023 (Approximate), Expires: 05/25/2024 [facility] Work Phone: Comment on above: Expected: 08/23/2023 (Approximate), Expi res: 05/25/2024 Start: 08-23-2023 End: 05-25-2024 CBC W Auto Differential panel - Blood CBC and Auto Differential Lab Routine Diabetes mellitus with stage 3 chronic kidney disease (CMS/HCC) Expected: 08/23/2023 (Approximate), Expires: 05/25/2024 [facility] Work Phone: Comment on above: Expected: 08/23/2023 (Approximate), Expi res: 05/25/2024 Start: 08-23-2023 End: 05-25-2024 Cobalamin (Vitamin B12) [Mass/volume] in Serum or Plasma Vitamin B12 Lab Routine Low vitamin B12 level Expected: 08/23/2023 (Approximate), Expires: 05/25/2024 [facility] Work Phone: Comment on above: Expected: 08/23/2023 (Approximate), Expi res: 05/25/2024 Start: 08-23-2023 End: 05-25-2024 Comprehensive metabolic 2000 panel - Serum or Plasma Comprehensive Metabolic Panel Lab Routine Diabetes mellitus with stage 3 chronic kidney disease (CMS/HCC) Expected: 08/23/2023 (Approximate), Expires: 05/25/2024 [facility] Work Phone: Comment on above: Expected: 08/23/2023 (Approximate), Expi res: 05/25/2024 Start: 08-23-2023 End: 05-25-2024 Hemoglobin A1c/Hemoglobin.total in Blood Hemoglobin A1C Lab Routine Diabetes mellitus with stage 3 chronic kidney disease (CMS/HCC) Expected: 08/23/2023 (Approximate), Expires: 05/25/2024 [facility] Work Phone: Comment on above: Expected: 08/23/2023 (Approximate), Expi res: 05/25/2024 Start: 08-23-2023 End: 05-25-2024 Magnesium [Mass/volume] in Serum or Plasma Magnesium Lab Routine Diabetes mellitus with stage 3 chronic kidney disease (CMS/HCC) Expected: 08/23/2023 (Approximate), Expires: 05/25/2024 [facility] Work Phone: Comment on above: Expected: 08/23/2023 (Approximate), Expi res: 05/25/2024 Start: 08-23-2023 End: 05-25-2024 Microalbumin/Creatinine [Mass Ratio] in Urine Albumin , Urine Random Lab Routine Diabetes mellitus with stage 3 chronic kidney disease (CMS/HCC) Expected: 08/23/2023 (Approximate), Expires: 05/25/2024 [facility] Work Phone: Comment on above: Expected: 08/23/2023 (Approximate), Expi res: 05/25/2024 Start: 08-23-2023 End: 05-25-2024 Thyrotropin [Units/volume] in Serum or Plasma Thyroid Stimulating Hormone Lab Routine Acquired hypothyroidism Expected: 08/23/2023 (Approximate), Expires: 05/25/2024 [facility] Work Phone: Comment on above: Expected: 08/23/2023 (Approximate), Expi res: 05/25/2024 Start: 08-23-2023 End: 05-25-2024 Thyroxine (T4) free [Mass/volume] in Serum or Plasma Thyroxine, Free Lab Routine Acquired hypothyroidism Expected: 08/23/2023 (Approximate), Expires: 05/25/2024 [facility] Work Phone: Comment on above: Expected: 08/23/2023 (Approximate), Expi res: 05/25/2024 Start: 08-16-2023 End: 08-16-2023 Patient encounter procedure 08/16/2023 9:30 AM EDT Office Visit [facility] [address] [place] [address] Kelly Carrasco PA-C [address] [place], [place] [phone] [facility] Start: 07-24-2023 Medicare Annual Wellness Visit Medicare Annual Wellness Visit (AWV) [facility] Start: 07-22-2023 End: 07-22-2023 Patient encounter procedure 07/22/2023 9:30 AM EDT Office Visit [facility] [address] [place] [address] Fredy Styles MD [address] [facility], [address] [place] [address] [facility] Start: 07-22-2023 Subsequent hospital visit by physician 07/22/2023 9:01 AM EDT Hospital Encounter [facility] [address] [address] S/P TKR (total knee replacement), left [facility] Comment on above: S/P TKR (total knee replacement), left Start: 07-17-2023 Lipid panel Lipid Panel [facility] Start: 07-17-2023 Thyroid stimulating hormone measurement TSH Level [facility] Start: 07-14-2023 Hemoglobin A1c measurement Diabetes: Hemoglobin A1C [facility] Start: 07-07-2023 End: 07-07-2023 Home visit 07/07/2023 9:30 AM EDT Home [facility] Visit [facility] [address] [place] [address] Sravanthi Barroso, OT [facility] Start: 07-06-2023 End: 07-06-2023 Patient encounter procedure 07/06/2023 9:15 AM EDT Office Visit [facility] [address] [place] [address] Kelly Carrasco PA-C [address] [place] [address] [facility] Start: 07-05-2023 End: 07-05-2023 Home visit 07/05/2023 9:30 AM EDT Home [facility] Visit [facility] [address] [place] [address] Sravanthi Barroso, OT [facility] Start: 06-30-2023 End: 06-30-2023 Home visit 06/30/2023 11:00 AM EDT Home [facility] Visit [facility] [address] [place] [address] Sravanthi Barroso, OT [facility] Start: 06-29-2023 End: 06-29-2023 Patient encounter procedure 06/29/2023 11:00 AM EDT Appointment [facility] [address] [place] [address] Janelle Gonzalez, PT [facility] Start: 06-28-2023 End: 06-28-2023 Home visit 06/28/2023 11:00 AM EDT Home [facility] [address] [place] [address] Sravanthi Barroso, OT [facility] Start: 06-27-2023 End: 06-27-2023 Home visit 06/27/2023 10:00 AM EDT Home [facility] [address] [place] [address] Janelle Gonzalez, PT [facility] Start: 06-23-2023 End: 06-23-2023 Home visit 06/23/2023 11:00 AM EDT Home [facility] [address] [place] [address] Sravanthi Barroso, OT [facility] Start: 06-22-2023 End: 06-22-2023 Home visit 06/22/2023 1:00 PM EDT Home Care Visit [facility] [address] [place] [address] Janelle Gonzalez, PT [facility] Start: 06-21-2023 End: 06-21-2023 Home visit 06/21/2023 11:00 AM EDT Home [facility] Visit [facility] [address] [place] [address] Sravanthi Barroso, OT [facility] Start: 06-20-2023 End: 06-20-2023 Telemedicine consultation with patient [facility] Start: 06-20-2023 End: 06-20-2023 Home visit 06/20/2023 1:00 PM EDT Home Care Visit [facility] [address] [place] [address] Janelle Gonzalez, PT [facility] Start: 06-17-2023 End: 06-17-2023 Patient encounter procedure 06/17/2023 9:00 AM EST Office Visit [facility] [address] [facility] [address] [place] [address] Fredy Styles MD [address] [facility], [address] [place] [address] [facility] Start: 06-14-2023 End: 06-13-2024 XR Knee - left 3 Views XR knee left 3 views Imaging Routine S/P TKR (total knee replacement), left Expected: 06/14/2023, Expires: 06/13/2024 [facility] Work Phone: Comment on above: Expected: 06/14/2023, Expires: Start: 06-14-2023 End: 06-14-2023 Home visit 06/14/2023 9:30 AM EST Home [facility] Visit [facility] [address] [place] [address] Sravanthi Barroso, OT [facility] Start: 06-12-2023 End: 06-12-2023 Patient encounter procedure 06/12/2023 5:30 PM EST Appointment [facility] [address] [place] [address] Monika Perry, PT [facility] Start: 06-10-2023 End: 06-10-2023 Admission to same day surgery center [facility] [place] Comment on above: Arthroplasty Total Knee [60118 (CPT )] Start: 06-10-2023 End: 06-10-2023 Arthrp kne condyle&platu medial&lat compartments Arthroplasty Resurfacing Total Knee Arthritis of left knee 06/10/2023 12:10 PM EST [facility] [place] Start: 06-10-2023 Subsequent hospital visit by physician [facility] [place] Start: 06-10-2023 End: 06-10-2023 Admission to same day surgery center [facility] [place] Comment on above: Arthroplasty Total Knee [11535 (CPT )] Start: 06-10-2023 End: 06-10-2023 Arthrp kne condyle&platu medial&lat compartments [facility] [place] Start: 06-10-2023 Subsequent hospital visit by physician [facility] [place] Start: 06-03-2023 End: 06-03-2023 Patient encounter procedure 06/03/2023 11:40 AM EST Appointment [facility] [place] [address] [place] [address] Barney Prieto MD [address] [place] [address] [place] [address] [facility] [place] Start: 05-30-2023 End: 05-30-2023 Telemedicine consultation with patient 05/30/2023 2:30 PM EST Telemedicine [facility] [address] [address] [facility] Start: 05-25-2023 End: 05-25-2023 Patient encounter procedure 05/25/2023 9:20 AM EST Office Visit [facility] [address] [place] [address] Callie Mcdonough PAChe [address] [place] [address] [facility] Start: 05-24-2023 End: 02-22-2024 25-hydroxyvitamin D3 [Mass/volume] in Serum or Plasma Vitamin D 25-Hydroxy,Total (for eval of Vitamin D levels) Lab Routine Vitamin D deficiency Expected: 05/24/2023 (Approximate), Expires: 02/22/2024 [facility] Work Phone: Comment on above: Expected: 05/24/2023 (Approximate), Expi res: 02/22/2024 Start: 05-24-2023 End: 02-22-2024 CBC W Auto Differential panel - Blood CBC and Auto Differential Lab Routine Diabetes mellitus with stage 3 chronic kidney disease (CMS/HCC) Expected: 05/24/2023 (Approximate), Expires: 02/22/2024 [facility] Work Phone: Comment on above: Expected: 05/24/2023 (Approximate), Expi res: 02/22/2024 Start: 05-24-2023 End: 02-22-2024 Cobalamin (Vitamin B12) [Mass/volume] in Serum or Plasma Vitamin B12 Lab Routine Low vitamin B12 level Expected: 05/24/2023 (Approximate), Expires: 02/22/2024 [facility] Work Phone: Comment on above: Expected: 05/24/2023 (Approximate), Expi res: 02/22/2024 Start: 05-24-2023 End: 02-22-2024 Comprehensive metabolic 2000 panel - Serum or Plasma Comprehensive Metabolic Panel Lab Routine Diabetes mellitus with stage 3 chronic kidney disease (CMS/HCC) Expected: 05/24/2023 (Approximate), Expires: 02/22/2024 [facility] Work Phone: Comment on above: Expected: 05/24/2023 (Approximate), Expi res: 02/22/2024 Start: 05-24-2023 End: 02-22-2024 Hemoglobin A1c/Hemoglobin.total in Blood Hemoglobin A1C Lab Routine Diabetes mellitus with stage 3 chronic kidney disease (CMS/HCC) Expected: 05/24/2023 (Approximate), Expires: 02/22/2024 [facility] Work Phone: Comment on above: Expected: 05/24/2023 (Approximate), Expi res: 02/22/2024 Start: 05-24-2023 End: 02-22-2024 Magnesium [Mass/volume] in Serum or Plasma Magnesium Lab Routine Hypomagnesemia Expected: 05/24/2023 (Approximate), Expires: 02/22/2024 [facility] Work Phone: Comment on above: Expected: 05/24/2023 (Approximate), Expi res: 02/22/2024 Start: 05-20-2023 End: 05-20-2023 Patient encounter procedure 05/20/2023 10:15 AM EST Office Visit [facility] [address] [place] [address] Fredy Styles MD [address] [facility], [address] [place] [address] [facility] Start: 05-18-2023 End: 05-18-2023 Patient encounter procedure [facility] Start: 05-13-2023 End: 05-13-2023 Patient encounter procedure 05/13/2023 8:15 AM EST Appointment [address] [address] [facility] Start: 05-10-2023 Hemoglobin A1c measurement Diabetes: Hemoglobin A1C [facility] Start: 05-09-2023 End: 05-09-2024 MR Knee - left WO contrast MR knee left wo IV contrast Imaging Routine Primary osteoarthritis of left knee Expected: 05/09/2023, Expires: 05/09/2024 [facility] Work Phone: Comment on above: Expected: 05/09/2023, Expires: Start: 05-09-2023 End: 05-09-2023 Patient encounter procedure 05/09/2023 8:00 AM EST Office Visit [facility] [address] [place] [phone] Shadia Daley, 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 [address] [facility], [address] [place] [address] [facility] Start: 05-02-2023 End: 05-02-2023 Telemedicine consultation with patient 05/02/2023 11:00 AM EST Telemedicine [facility] [address] [place] [address] [facility] Start: 04-28-2023 End: 04-28-2023 Patient encounter procedure 04/28/2023 8:45 AM EST Office Visit [facility] [address] [place] [address] Kelly Carrasco PA-C [address] [place] [address] [facility] Start: 04-25-2023 End: 04-25-2023 Professional / ancillary services management [facility] Start: 04-21-2023 End: 04-21-2023 Telemedicine consultation with patient 04/21/2023 3:30 PM EST Telemedicine [facility] [address] [place] [address] Audrey Diaz, PharmD [address] [place] [address] [facility] Start: 04-21-2023 End: 04-21-2023 Patient encounter procedure 04/21/2023 10:15 AM EST Office Visit [facility] [address] [place] [address] Kane Kilgore, DO [address] [facility], [address] [place] [address] [facility] Start: 04-19-2023 End: 04-19-2023 Patient encounter procedure 04/19/2023 9:00 AM EST Office Visit [facility] [address] [facility] [address] [place] [phone] Shadia Daley, 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 [address] [facility], [address] [place] [address] [facility] Start: 04-14-2023 End: 04-14-2023 Patient encounter procedure 04/14/2023 9:45 AM EST Office Visit [facility] [address] [place] [address] Shadia Daley, 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 [address] [facility], [address] [place] [address] [facility] Start: 04-12-2023 End: 04-12-2023 Patient encounter procedure 04/12/2023 9:00 AM EST Appointment [facility] [address] [address] [facility] Start: 03-29-2023 End: 03-29-2023 Patient encounter procedure 03/29/2023 9:30 AM EST Office Visit [facility] [address] [place] [address] Kelly Carrasco PA-C [address] [place] [address] [facility] Start: 03-08-2023 End: 03-08-2024 Pulmonary function testing Pulmonary function testing PFT Routine Chronic obstructive pulmonary disease with acute exacerbation (CMS/HCC) Expected: 03/08/2023 (Approximate), Expires: 03/08/2024 [facility] Work Phone: Comment on above: Expected: 03/08/2023 (Approximate), Expi res: 03/08/2024 Start: 03-08-2023 End: 03-08-2024 Pulse oximetry, overnight Pulse oximetry, overnight Respiratory Care Routine Chronic obstructive pulmonary disease with acute exacerbation (CMS/HCC) Expected: 03/08/2023 (Approximate), Expires: 03/08/2024 [facility] Work Phone: Comment on above: Expected: 03/08/2023 (Approximate), Expi res: 03/08/2024 Start: 02-25-2023 FUV, Provider: Shadia Daley, Status: Pen, Time: 8:30 AM [facility], Provider: Shadia Daley, Status: Pen, Time: 8:30 AM [facility] [address] Work Phone: Start: 02-22-2023 End: 02-22-2023 Patient encounter procedure 02/22/2023 9:40 AM EST Office Visit [facility] [address] [place] [phone] Callie Mcdonough PA-C [address] [place] [address] [facility] Start: 02-15-2023 End: 02-15-2023 Patient encounter procedure 02/15/2023 10:45 AM EST Office Visit [facility] [address] [place] [address] 2nd Floor [place] [phone] Kelly Carrasco PA-C [address] [place] [address] [place] [address] [facility] Start: 02-07-2023 FUV, Provider: Kane Kilgore, Status: Pen, Time: 3:15 PM [facility], Provider: Kane Kilgore, Status: Pen, Time: 3:15 PM [facility] Work Phone: Start: 02-07-2023 End: 02-07-2023 Patient encounter procedure 02/07/2023 3:15 PM EDT Office Visit [facility] [address] [address] Kaen Kilgore, DO [address] [facility], [address] [facility] [place] [address] [facility] Start: 02-07-2023 End: 02-07-2023 Patient encounter procedure 02/07/2023 10:15 AM EDT Office Visit [facility] [address] [place] [address] Shadia Daley, 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 [address] [facility], [address] [place], [facility] Start: 01-31-2023 End: 01-31-2023 Patient encounter procedure 01/31/2023 10:15 AM EDT Office Visit [facility] [address] [place] [phone] Shadia Daley, 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 [address] [facility], [address] [place] [phone] [facility] Start: 01-24-2023 End: 01-24-2023 Patient encounter procedure 01/24/2023 10:15 AM EDT Office Visit [facility] [address] [place] [address] Shadia Daley, 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 [address] [facility], [address] [place] [phone] [facility] Start: 01-04-2023 Screening for malignant neoplasm of colon [facility] Start: 01-04-2023 FUV, Provider: Kelly Carrasco, Status: Pen, Time: 8:00 AM [facility], Provider: Kelly Carrasco, Status: Pen, Time: 8:00 AM [facility] 300 Work Phone: Start: 12-10-2022 COVID-19 Vaccine () COVID-19 Vaccine () [facility] Start: 12-10-2022 Influenza vaccination [facility] Start: 11-25-2022 End: 11-25-2022 Patient encounter procedure 11/25/2022 9:00 AM EDT Office Visit [facility] [address] [place] [address] Callie Mcdonough PA-C [address] [place] [address] [facility] Start: 11-20-2022 Hemoglobin A1c measurement Diabetes: Hemoglobin A1C [facility] Start: 10-21-2022 End: 07-23-2023 25-hydroxyvitamin D3 [Mass/volume] in Serum or Plasma Vitamin D, Total Lab Routine Vulvovaginal candidiasis Diabetes mellitus with stage 3 chronic kidney disease (CMS/HCC) Expected: 10/21/2022 (Approximate), Expires: 07/23/2023 [facility] Work Phone: Comment on above: Expected: 10/21/2022 (Approximate), Expi res: 07/23/2023 Start: 10-21-2022 End: 07-23-2023 CBC W Auto Differential panel - Blood CBC and Auto Differential Lab Routine Diabetes mellitus with stage 3 chronic kidney disease (CMS/HCC) Expected: 10/21/2022 (Approximate), Expires: 07/23/2023 [facility] Work Phone: Comment on above: Expected: 10/21/2022 (Approximate), Expi res: 07/23/2023 Start: 10-21-2022 End: 07-23-2023 Cobalamin (Vitamin B12) [Mass/volume] in Serum or Plasma Vitamin B12 Lab Routine Hypomagnesemia Diabetes mellitus with stage 3 chronic kidney disease (CMS/HCC) Expected: 10/21/2022 (Approximate), Expires: 07/23/2023 [facility] Work Phone: Comment on above: Expected: 10/21/2022 (Approximate), Expi res: 07/23/2023 Start: 10-21-2022 End: 07-23-2023 Comprehensive metabolic 2000 panel - Serum or Plasma Comprehensive Metabolic Panel Lab Routine Diabetes mellitus with stage 3 chronic kidney disease (CMS/HCC) Expected: 10/21/2022 (Approximate), Expires: 07/23/2023 [facility] Work Phone: Comment on above: Expected: 10/21/2022 (Approximate), Expi res: 07/23/2023 Start: 10-21-2022 End: 07-23-2023 Hemoglobin A1c/Hemoglobin.total in Blood Hemoglobin A1C Lab Routine Diabetes mellitus with stage 3 chronic kidney disease (CMS/HCC) Expected: 10/21/2022 (Approximate), Expires: 07/23/2023 [facility] Work Phone: Comment on above: Expected: 10/21/2022 (Approximate), Expi res: 07/23/2023 Start: 10-21-2022 End: 07-23-2023 Magnesium [Mass/volume] in Serum or Plasma Magnesium Lab Routine Hypomagnesemia Diabetes mellitus with stage 3 chronic kidney disease (CMS/HCC) Expected: 10/21/2022 (Approximate), Expires: 07/23/2023 [facility] Work Phone: Comment on above: Expected: 10/21/2022 (Approximate), Expi res: 07/23/2023 Start: 10-15-2022 Hemoglobin A1c measurement Diabetes: Hemoglobin A1C [facility] Start: 09-22-2022 FUV, Provider: Kelly Carrasco, Status: Pen, Time: 10:00 AM [facility], Provider: Kelly Carrasco, Status: Pen, Time: 10:00 AM [facility] Work Phone: Start: 09-17-2022 [facility], Provider: Miguel Angelo, Status: Pen, Time: 10:45 AM [facility], Provider: Miguel Angelo, Status: Pen, Time: 10:45 AM [facility] Work Phone: Start: 08-18-2022 NPV, Provider: Kane Kilgore, Status: Pen, Time: 1:00 PM NPV, Provider: Kane iKlgore, Status: Pen, Time: 1:00 PM [id number] Work Phone: Start: 08-11-2022 FUV, Provider: Davide Lagos II, Status: Pen, Time: 9:30 AM [facility]UV, Provider: Davide Lagos II, Status: Pen, Time: 9:30 AM [facility] Work Phone: Start: 08-04-2022 FUV, Provider: Kelly Carrasco, Status: Pen, Time: 10:45 AM FUV, Provider: Kelly Carrasco, Status: Pen, Time: 10:45 AM [facility] Work Phone: Start: 07-22-2022 Patient encounter procedure MCRANNUAL, Provider: Callie Mcdonough, Status: Pen, Time: 8:20 AM [facility] Work Phone: Start: 07-22-2022 End: 07-22-2022 Patient encounter procedure 07/22/2022 8:20 AM EDT Office Visit [facility] [address] [place] [address] Callie Mcdonough B, PA-C [address] [place], [place] [phone] [facility] Start: 07-16-2022 End: 07-23-2022 Bacteria identified in Urine by Culture [facility] Work Phone: Comment on above: Expected: 07/16/2022 (Approximate), Expi res: 07/23/2022 Start: 07-16-2022 End: 09-16-2023 BI mammo bilateral screening tomosynthesis BI mammo bilateral screening tomosynthesis Imaging Routine Breast cancer screening by mammogram Expected: 07/16/2022, Expires: 09/16/2023 [facility] Work Phone: Comment on above: Expected: 07/16/2022, Expires: Start: 07-16-2022 End: 07-17-2023 DXA Skeletal system Views for bone density XR DEXA bone density Imaging Routine Post-menopausal Expected: 07/16/2022, Expires: 07/17/2023 [facility] Work Phone: Comment on above: Expected: 07/16/2022, Expires: 4 Start: 07-14-2022 CYSTOSCOPY, Provider: CONFUCIANISM UROLOGY PROCEDURE RM,[id number], Status: Pen, Time: 10:45 AM CYSTOSCOPY, Provider: CONFUCIANISM UROLOGY PROCEDURE RM,[id number], Status: Pen, Time: 10:45 AM [facility] Work Phone: Start: 07-08-2022 End: 07-09-2023 MRCP Abdomen WO and W contrast IV MR abdomen w and wo IV contrast MRCP Imaging Routine Right upper quadrant abdominal pain Chronic constipation Abnormal biliary HIDA scan Expected: 07/08/2022, Expires: 07/09/2023 [facility] Work Phone: Comment on above: Expected: 07/08/2022, Expires: 4 Start: 06-24-2022 FUV, Provider: Shadia Daley, Status: Pen, Time: 8:30 AM FUV, Provider: Shadia Daley, Status: Pen, Time: 8:30 AM [facility] 300 Work Phone: Start: 06-24-2022 [facility] Start: 06-12-2022 End: 06-13-2023 [facility] Start: 05-13-2022 PTEVAADULT, Provider: Murray Christie, Status: Pen, Time: 10:30 AM PTEVAADULT, Provider: Murray Christie, Status: Pen, Time: 10:30 AM [facility] Work Phone: Start: 05-05-2022 PTEVAADULT, Provider: Maria G Johnson, Status: Pen, Time: 11:45 AM PTEVAADULT, Provider: Maria G Johnson, Status: Pen, Time: 11:45 AM [facility] 300 Work Phone: Start: 04-13-2022 Patient encounter procedure [facility] Start: 04-01-2022 End: 04-02-2023 Bacitracin 500 Units/gram Topical 1 application Ointment 2 Times a Day ; OintmentDOSE = 1 application(s) Topical OnceApply to Elbow Start: 01-Apr-2022 End: 01-Apr-2023 Ordered: 01-Apr-2022 Balbir Tavares Intent [facility] Start: 02-04-2022 FUV, Provider: Kelly Carrasco, Status: Pen, Time: 10:15 AM [facility], Provider: Kelly Carrasco, Status: Pen, Time: 10:15 AM [facility] Work Phone: Start: 01-14-2022 FUV, Provider: Kelly Carrasco, Status: Pen, Time: 9:15 AM [facility], Provider: Kelly Carrasco, Status: Pen, Time: 9:15 AM [facility] Work Phone: Start: 12-10-2021 Influenza vaccination Influenza Vaccine (#1) [facility] Start: 12-03-2021 FUV, Provider: Kelly Carrasco, Status: Pen, Time: 8:15 AM [facility], Provider: Kelly Carrasco, Status: Pen, Time: 8:15 AM [facility] Work Phone: Start: 11-12-2021 FUV, Provider: Kelly Carrasco, Status: Pen, Time: 3:15 PM [facility]UV, Provider: Kelly Carrasco, Status: Pen, Time: 3:15 PM [facility] Work Phone: Start: 10-29-2021 FUV, Provider: Shadia Daley, Status: Pen, Time: 10:00 AM [facility]UV, Provider: Shadia Daley, Status: Pen, Time: 10:00 AM [facility] 300 Work Phone: Start: 10-29-2021 Patient encounter procedure [facility] Start: 10-29-2021 NPV, Provider: Kelly Carrasco, Status: Pen, Time: 9:30 AM NPV, Provider: Kelly Carrasco, Status: Pen, Time: 9:[address] [facility] Work Phone: Start: 10-15-2021 FUV, Provider: Shadia Daley, Status: Pen, Time: 8:30 AM [facility]UV, Provider: Shadia Daley, Status: Pen, Time: 8:30 AM [facility] 300 Work Phone: Start: 10-02-2021 VNDVTUNI, Provider: [facility], Status: Pen, Time: 9:00 AM VNDVTUNI, Provider: [facility], Status: Pen, Time: 9:00 AM [facility] 300 Work Phone: Start: 09-22-2021 End: 09-23-2022 [facility] Start: 09-17-2021 FUV, Provider: Shadia Daley, Status: Pen, Time: 10:00 AM [facility], Provider: Shadia Daley, Status: Pen, Time: 10:00 AM [facility] 300 Work Phone: Start: 2021 Pneumococcal Vaccine: 65+ Years (3 - PPSV23 if available, else PCV20) Pneumococcal Vaccine: 65+ Years (3 - PPSV23 if available, else PCV20) [facility] Start: 2021 Pneumococcal Vaccine: 65+ Years (3 - PPSV23 or PCV20) Pneumococcal Vaccine: 65+ Years (3 - PPSV23 or PCV20) [facility] Start: 2021 Pneumococcal Vaccine: 65+ Years (3 of 3 - PPSV23 or PCV20) Pneumococcal Vaccine: 65+ Years (3 of 3 - PPSV23 or PCV20) [facility] Start: 04-16-2021 End: 04-16-2021 Patient encounter procedure 04/16/2021 Office Visit Endocrinology Ida Ely CNP [address] [place] [id number] Maria G Sands PA-C [address] [place] [address] [facility] Start: 03-10-2021 Depression screening using PHQ-9 (Patient Health Questionnaire 9) score Depression Screening (PHQ9) [facility] Start: 03-10-2021 Hemoglobin A1c measurement A1C [facility] Start: 02-16-2021 End: 02-16-2021 Patient encounter procedure [facility] Start: 12-10-2020 Influenza vaccination Sequential Influenza Vaccine (#1) [facility] Start: 12-09-2020 End: 12-09-2020 Patient encounter procedure 12/09/2020 Office Visit Endocrinology Ida Ely CNP [address] [place] [address] [phone] Sherine Camara MD [address] [place] [address] [phone] [facility] Start: 11-26-2020 End: 11-26-2020 Patient encounter procedure 11/26/2020 Office Visit Primary Care Ida Ely CNP [address] [place] [address] [phone] [facility] Start: 11-20-2020 Subsequent hospital visit by physician 11/20/2020 Hospital Encounter Cardiology Bob Hunt MD [address] [facility] Zofia [address] [address] [phone] [facility] Proced[facility] Care Unit Start: 11-14-2020 End: 11-14-2020 ambulatory 11/14/2020 Evaluation Rehabilitation Ida Ely CNP [address] [place] [address] [phone] Rissa Philip, PT [facility] Start: 10-21-2020 COVID-19 Vaccine (3 - Booster for Moderna series) COVID-19 Vaccine (3 - Booster for Moderna series) [facility] Start: 10-21-2020 COVID-19 Vaccine (3 - Moderna series) COVID-19 Vaccine (3 - Moderna series) [facility] Start: 09-23-2020 COVID-19 Vaccine (3 - Moderna risk series) COVID-19 Vaccine (3 - Moderna risk series) [facility] Start: 11-04-2019 Screening for malignant neoplasm of breast Mammogram [facility] Start: 05-08-2019 Microalbumin measurement, urine, quantitative Urine Microalbumin [facility] Start: 06-23-2018 Administration of herpes zoster vaccine Zoster Vaccines (3 of 3) [facility] Start: 01-29-2018 Screening for malignant neoplasm of cervix Pap Smear [facility] Start: 2016 Hepatitis B Vaccines (1 of 3 - Risk 3-dose series) Hepatitis B Vaccines (1 of 3 - Risk 3-dose series) [facility] Start: 2016 RSV patients and/or patients aged 60+ years (1 - 1-dose 60+ series) RSV patients and/or patients aged 60+ years (1 - 1-dose 60+ series) [facility] Start: 07-17-2015 Pneumococcal Vaccine: Ped or At-Risk (1 of 2 - PPSV23) Pneumococcal Vaccine: Ped or At-Risk (1 of 2 - PPSV23) [facility] Start: 2006 Screening for malignant neoplasm of colon [facility] Start: 1996 Screening for malignant neoplasm of breast Mammogram [facility] Start: 1977 Screening for malignant neoplasm of cervix [facility] Start: 08-07-1975 Hepatitis A Vaccines (1 of 2 - Risk 2-dose series) Hepatitis A Vaccines (1 of 2 - Risk 2-dose series) [facility] Start: 1974 Hepatitis C screening Hepatitis C Screening [facility] Start: 08-07-1971 HIV screening [facility] Screening [facility] Start: 1966 Diabetic foot examination [facility] Start: 1966 Glaucoma screening Diabetes: Retinopathy Screening [facility] Start: 1966 Ophthalmic examination and evaluation [facility] Start: 08-07-1959 History and physical examination, annual for health maintenance Wellness Visit [facility] Start: 1957 Hepatitis A Vaccines (1 of 2 - Risk 2-dose series) Hepatitis A Vaccines (1 of 2 - Risk 2-dose series) [facility] Start: 1956 Annual wellness visit Medicare Initial Physical (IPPE) [facility] Start: 1956 Hemoglobin A1c measurement Diabetes: Hemoglobin A1C [facility] Start: 1956 Lipid panel Lipid Panel [facility] Start: 1956 Medicare Annual Wellness Visit Medicare Annual Wellness Visit (AWV) [facility] Start: 1956 Screening for malignant neoplasm of colon [facility] Start: 1956 Screening for osteoporosis Bone Density Scan [facility] Start: 1956 Tetanus vaccination Tetanus: Every 10yrs [facility] Bacteria identified in Blood by Culture [facility] Work Phone: End: 05-18-2023 DBT Breast - bilateral [facility] Work Phone: Comment on above: Once for 1 Occurrences starting 05/18/19 24 until 05/18/2023 ECG 12 lead ECG 12 lead ECG STAT 04/04/2023 2:07 PM [facility] Work Phone: ECG 12 Lead ECG 12 Lead ECG Routine Primary osteoarthritis of left knee 05/31/2023 7:33 AM EST [facility] Work Phone: ECG 12 lead ECG 12 lead ECG STAT 04/14/2023 7:00 AM EST [facility] Work Phone: Electrocardiogram, 12-lead PRN ACS symptoms Electrocardiogram, 12-lead PRN ACS symptoms ECG Routine As needed until discontinued starting 04/04/2023 [facility] Work Phone: Comment on above: As needed until discontinued starting Electrocardiogram, 12-lead PRN ACS symptoms Electrocardiogram, 12-lead PRN ACS symptoms ECG Routine As needed until discontinued starting 06/10/2023 [facility] Work Phone: Comment on above: As needed until discontinued starting Electrocardiogram, 12-lead PRN ACS symptoms Electrocardiogram, 12-lead PRN ACS symptoms ECG Routine As needed until discontinued starting 04/13/2023 [facility] Work Phone: Comment on above: As needed until discontinued starting Electrocardiogram, 12-lead PRN ACS symptoms Electrocardiogram, 12-lead PRN ACS symptoms ECG Routine As needed until discontinued starting 04/13/2023 [facility] Work Phone: Comment on above: As needed until discontinued starting End: 06-03-2023 Epidural steroid injection Epidural Steroid Injection Procedures Routine Lumbar radiculopathy Once for 1 Occurrences starting 06/03/2023 until 06/03/2023 [facility] Work Phone: Comment on above: Once for 1 Occurrences starting 06/03/19 until 06/03/2023 Glucose [Mass/volume ] in Serum or Plasma POCT Glucose Point of Care Testing - Docked Device Routine As needed (Lab) until discontinued starting 04/04/2023 [facility] Work Phone: Comment on above: As needed (Lab) until discontinued start ing 04/04/2023 End: 04-07-2023 Glucose [Mass/volume] in Serum or Plasma POCT GLUCOSE Point of Care Testing Routine 4 times daily before meals and at bedtime for 3 Days starting 04/04/2023 until 04/07/2023 [facility] Work Phone: Comment on above: 4 times daily before meals and at bedtim e for 3 Days starting 04/04/2023 until 04/07/2023 Glucose [Mass/volume ] in Serum or Plasma [facility] Work Phone: Comment on above: 4x daily - AC and at bedtime until disco ntinued starting 06/10/2023 As needed (Lab) unti l discontinued starting 06/10/2023 End: 06-13-2023 Glucose [Mass/volume] in Serum or Plasma POCT GLUCOSE Point of Care Testing Routine 4 times daily before meals and at bedtime for 3 Days starting 06/10/2023 until 06/13/2023 [facility] Work Phone: Comment on above: 4 times daily before meals and at bedtim e for 3 Days starting 06/10/2023 until 06/13/2023 End: 06-14-2023 Glucose [Mass/volume] in Serum or Plasma POCT GLUCOSE Point of Care Testing Routine 4 times daily before meals and at bedtime for 3 Days starting 06/11/2023 until 06/14/2023 [facility] Work Phone: Comment on above: 4 times daily before meals and at bedtim e for 3 Days starting 06/11/2023 until 06/14/2023 Glucose [Mass/volume ] in Serum or Plasma [facility] Work Phone: Comment on above: 4x daily - AC and at bedtime until disco ntinued starting 04/13/2023 As needed (Lab) unti l discontinued starting 04/13/2023 H/O: bilateral oophorectomy H/O bilateral oophorectomy [facility] H/O: surgery History of D&C [facility] History of cholecystectomy History of laparoscopic cholecystectomy [facility] History of colonoscopy History of colonos copy [facility] History of repair of umbilical hernia History of umbilical hernia repair [facility] End: 04-20-2023 Holter monitor study [facility] Work Phone: Comment on above: Once for 1 Occurrences starting 04/20/19 until 04/20/2023 End: 06-10-2023 Incentive spirometry Instruct Incentive spirometry Instruct Respiratory Care Routine Once for 1 Occurrences starting 06/10/2023 until 06/10/2023 [facility] Work Phone: Comment on above: Once for 1 Occurrences starting 06/10/19 until 06/10/2023 End: 04-13-2023 Lower extremity venous duplex left Lower extremity venous duplex left Vascular Ultrasound Routine Pain of left lower extremity Leg swelling Once for 1 Occurrences starting 04/13/2023 until 04/13/2023 [facility] Work Phone: Comment on above: Once for 1 Occurrences starting 04/13/19 until 04/13/2023 POCT glucose meter docked device POCT glucose meter docked device Point of Care Testing - Docked Device Routine As needed (Lab) until discontinued starting 06/03/2023 [facility] Work Phone: Comment on above: As needed (Lab) until discontinued start ing 06/03/2023 End: 04-13-2023 Respiratory care eval and treat Respiratory care eval and treat Respiratory Care Routine Once for 1 Occurrences starting 04/13/2023 until 04/13/2023 [facility] Work Phone: Comment on above: Once for 1 Occurrences starting 04/13/19 until 04/13/2023 End: 05-31-2023 XR [address] [facility] Work Phone: Comment on above: Once for 1 Occurrences starting 05/31/19 until 05/31/2023 End: 06-17-2023 XR Knee - left 3 Views [facility] Work Phone: Comment on above: Once for 1 Occurrences starting 06/17/19 until 06/17/2023 End: 07-22-2023 XR Knee - left [address] [facility] Work Phone: Comment on above: Once for 1 Occurrences starting 07/22/19 until 07/22/2023 Immunizations Immunization Date Immunization Notes Care Provider [facility] 10-06-2022 zoster vaccine recombinant Brynn Jose MD Work Phone: [facility] 04-01-2022 tetanus toxoid, redu omkar diphtheria toxoid, and acellular pertussis vaccine, adsorbed Ida Ely [facility] 03-10-2020 influenza, injectabl e, quadrivalent, preservative free Yoshi Mora DO Work Phone: [facility] 03-10-2020 influenza virus vaccine, unspecified formulation Callie Mcdonough PA-C Work Phone: [facility] Work Phone: 04-28-2018 zoster vaccine recombinant Yoshi Holbrook DO Work Phone: [facility] 02-15-2018 zoster vaccine recombinant Yoshi Holbrook DO Work Phone: [facility] 02-15-2018 zoster vaccine, live Yoshi Holbrook DO Work Phone: [facility] 02-15-2018 SHINGRIX, PF, 50 mcg/0.5 mL injection Yoshi Holbrook DO Work Phone: [facility] 01-06-2018 Seasonal, quadrivale nt, recombinant, injectable influenza vaccine, preservative free Yosih Holbrook DO Work Phone: [facility] 01-06-2018 FLUBLOK QUAD 2017- 19, PF, syringe Yoshi Holbrook DO Work Phone: [facility] 02-09-2016 influenza, seasonal, injectable Yoshi Holbrook DO Work Phone: [facility] 05-22-2015 pneumococcal conjuga te vaccine, 13 valent Yoshi Holbrook DO Work Phone: [facility] 05-22-2015 pneumococcal polysaccharide vaccine, 23 valent Yoshi Holbrook DO Work Phone: [facility] 01-29-2015 influenza, seasonal, injectable Yoshi Holbrook DO Work Phone: [facility] 06-02-2013 influenza, seasonal, injectable Yoshi Holbrook DO Work Phone: [facility] 01-07-2012 seasonal influenza, intradermal, preservative free Yoshi Holbrook DO Work Phone: [facility] 03-26-2010 influenza, injectabl e, quadrivalent, preservative free Yoshi Holbrook DO Work Phone: [facility] 07-08-2009 pneumococcal conjuga te vaccine, 13 valent Yoshi Holbrook DO Work Phone: [facility] 04-01-2009 influenza, seasonal, injectable Yoshi Holbrook DO Work Phone: [facility] 02-01-2008 influenza, seasonal, injectable Yoshi Holbrook DO Work Phone: [facility] Payers Date Payer Category Payer Private Health Insurance [id number] 2023 Private Health Insurance [id number] 2022 Medicare [id number] 2018 Medicare [id number] 2018 Unknown [id number] [address] [facility] [id number] 2010 Medicare [id number] 1955 Unknown [id number] 2.16.8 40.1.977549.3.579.2.903 1956 Unknown [id number] 2.16.8 40.1.785975.3.579.2.903 1956 Unknown [id number] 2.16. 840.1.227626.3.579.2.900 1956 Unknown [id number] 2.16. 840.1.167505.3.579.2.900 1956 Unknown [id number] 2.16.8 40.1.492304.3.579.2.900 1956 Unknown [id number] 2.16.8 40.1.158069.3.579.2.900 1956 Unknown [id number] 2.16.8 40.1.264379.3.579.2.900 1956 Unknown [id number] 2.16.8 40.1.874415.3.579.2.900 1956 Unknown [id number] 2.16. 840.1.073410.3.579.2.903 1956 Unknown [id number] 2.16. 840.1.404696.3.579.2.903 1956 Unknown [id number] 2.16. 840.1.440570.3.579.2. 1956 Unknown [id number] 2.16. 840.1.217983.3.579.2. 1956 Unknown [id number] 2.16. 840.1.591635.3.579.2. 1956 Unknown [id number] 2.16. 840.1.944784.3.579.2. 1956 Unknown [id number] 2.16. 840.1.654914.3.579.2. 1956 Unknown [id number] 2.16. 840.1.383731.3.579.2. 1956 Unknown [id number] 2.16.8 40.1.643227.3.579.2.1068 1956 Unknown [id number] 2.16.8 40.1.982314.3.579.2.1068 1956 Unknown [id number] 2.16.8 40.1.646436.3.579.2.1068 1956 Unknown [id number] 2.16.8 40.1.252725.3.579.2.1068 1956 Unknown [id number] 2.16.8 40.1.719142.3.579.2.1068 1956 Unknown [id number] 2.16.8 40.1.226479.3.579.2.1068 1956 Unknown [id number] 2.16.8 40.1.388789.3.579.2.1068 1956 Unknown [id number] 2.16.8 40.1.439298.3.579.2.1068 1956 Unknown [id number] 2.16.8 40.1.316365.3.579.2.1068 1956 Unknown [id number] 2.16.8 40.1.442670.3.579.2.1068 1956 Unknown [id number] 2.16.8 40.1.425533.3.579.2.1068 1956 Unknown [id number] 2.16.8 40.1.957063.3.579.2.1068 1956 Unknown [id number] 2.16.8 40.1.043429.3.579.2.1068 1956 Unknown [id number] 2.16.8 40.1.098434.3.579.2.1068 1956 Unknown [id number] 2.16.8 40.1.945385.3.579.2.1068 1956 Unknown [id number] 2.16.8 40.1.673302.3.579.2.1244 1956 Unknown [id number] 2.16.8 40.1.461916.3.579.2.1244 1956 Unknown [id number] 2.16.8 40.1.415763.3.579.2.1244 1956 Unknown [id number] 2.16.8 40.1.436151.3.579.2.1244 1956 Unknown [id number] 2.16.8 40.1.584882.3.579.2.1244 1956 Unknown [id number] 2.16.8 40.1.121874.3.579.2.1244 1956 Unknown [id number] 2.16.8 40.1.998888.3.579.2.1244 1956 Unknown [id number] 2.16.8 40.1.448837.3.579.2.1244 1956 Unknown [id number] 2.16.840 .1.963723.3.579.2.1244 1956 Unknown [id number] 2.16.840 .1.213310.3.579.2.1244 1956 Unknown [id number] 2.16.8 40.1.850739.3.579.2.1242 1956 Unknown [id number] 2.16.8 40.1.133747.3.579.2.1242 1956 Unknown [id number] 2.16.8 40.1.522957.3.579.2.1242 1956 Unknown [id number] 2.16.8 40.1.996013.3.579.2.1242 1956 Unknown [id number] 2.16.8 40.1.693324.3.579.2.1242 1956 Unknown [id number] 2.16.8 40.1.287569.3.579.2.1242 1956 Unknown [id number] 2.16.8 40.1.284330.3.579.2.1242 1956 Unknown [id number] 2.16.8 40.1.690724.3.579.2.1242 1956 Unknown [id number] 2.16.8 40.1.436533.3.579.2.1242 1956 Unknown [id number] 2.16.8 40.1.448459.3.579.2.1242 1956 Unknown [id number] 2.16.8 40.1.798317.3.579.2.1242 1956 Unknown [id number] 2.16.84 0.1.574169.3.579.2.1242 1956 Unknown [id number] 2.16.84 0.1.447861.3.579.2.1242 1956 Unknown [id number] 2.16.84 0.1.761493.3.579.2.1242 1956 Unknown [id number] 2.16.84 0.1.633439.3.579.2.1243 1956 Unknown [id number] 2.16.84 0.1.844700.3.579.2.1242 1956 Unknown [id number] 2.16.84 0.1.159286.3.579.2.1242 1956 Unknown [id number] 2.16.84 0.1.830609.3.579.2.1242 1956 Unknown [id number] 2.16.84 0.1.324795.3.579.2.1242 1956 Unknown [id number] 2.16.84 0.1.196119.3.579.2.1242 1956 Unknown [id number] 2.16.84 0.1.688352.3.579.2.1242 1956 Unknown [id number] 2.16.84 0.1.782217.3.579.2.1242 1956 Unknown [id number] 2.16.8 40.1.337696.3.579.2.1242 1956 Unknown [id number] 2.16.84 0.1.672617.3.579.2.1242 1956 Unknown [id number] 2.16.8 40.1.324652.3.579.2.1242 1956 Unknown [id number] 2.16.8 40.1.843540.3.579.2.1243 1956 Unknown [id number] 2.16.8 40.1.153839.3.579.2.1243 1956 Unknown [id number] 2.16.8 40.1.563659.3.579.2.1243 1956 Unknown [id number] 2.16.8 40.1.795656.3.579.2.1243 1956 Unknown [id number] 2.16.8 40.1.218113.3.579.2.1243 1956 Unknown [id number] 2.16.8 40.1.041781.3.579.2.1243 1956 Unknown [id number] 2.16.8 40.1.472727.3.579.2.1243 1956 Unknown [id number] 2.16.8 40.1.351386.3.579.2.1243 1956 Unknown [id number] 2.16.8 40.1.717892.3.579.2.1243 1956 Unknown [id number] 2.16.8 40.1.523635.3.579.2.1243 1956 Unknown [id number] 2.16.8 40.1.450980.3.579.2.1243 1956 Unknown [id number] 2.16.8 40.1.184452.3.579.2.1243 1956 Unknown [id number] 2.16.8 40.1.653511.3.579.2.1243 1956 Unknown [id number] 2.16.8 40.1.296535.3.579.2.1243 1956 Unknown [id number] 2.16.8 40.1.797951.3.579.2.1243 1956 Unknown [id number] 2.16.8 40.1.006514.3.579.2.1243 1956 Unknown [id number] 2.16.8 40.1.130059.3.579.2.1243 1956 Unknown [id number] 2.16.8 40.1.629348.3.579.2.1243 1956 Unknown [id number] 2.16.8 40.1.310822.3.579.2.1244 Social History Date Type Detail Facility Start: 10-22-2020 End: 11-25-2022 Tobacco smoking status MOIS Current every day smoker [facility] History of tobacco use Cigarette Smoker O [facility] Start: 10-22-2020 End: 04-13-2023 Cigarettes smoked current (pack per day) - Reported [facility] Start: 10-22-2020 End: 11-25-2022 Tobacco use and exposure Never used [facility] Start: 10-22-2020 End: 01-08-2021 Alcohol intake Current non-drinker of alcohol (finding) [facility] Start: 1955 Sex Assigned At Not on file [facility] Start: 06-28-2022 End: 08-25-2023 Exposure to SARS-CoV-2 (event) Not sure [facility] Tobacco smoking consumption unknown [facility] Start: 07-08-2022 End: 07-22-2022 Alcohol intake Lifetime non-drinker (finding) [facility] Work Phone: Start: 07-08-2022 End: 04-13-2023 Tobacco use panel [facility] Work Phone: Start: 01-19-2023 End: 04-13-2023 Alcohol intake Current drinker of alcohol (finding) [facility] Work Phone: Start: 11-25-2022 Alcohol Comment OCCASIONALLY [facility] Work Phone: Start: 01-09-2023 End: 03-28-2023 Exposure to SARS-CoV-2 (event) Unable to assess [facility] Work Phone: How often to you hav e a drink containing alcohol? Never [facility] How many standard drinks containing alcohol do you have on a typical day? Patient does not drink [facility] Work Phone: In the past 12 month s, was there a time when you were not able to pay the mortgage or rent on time? No [facility] Work Phone: History of tobacco use Passive smoker [facility] Work Phone: Start: 04-28-2023 End: 08-25-2023 Alcohol intake Ex-drinker (finding) [facility] Work Phone: How often do you fee l lonely or isolated from those around you [CMS Assessment] Rarely [facility] Work Phone: How often do you nee d to have someone help you when you read instructions, pamphlets, or other written material from your doctor or pharmacy [SILS] Often [facility] Work Phone: Medical Equipment Procedure Code Equipment Code Equipment Origin al Text Equipment Identifier Dates by Miscellaneous route 4 (four) times a day . [id number] Start: 08-07-2018 USE ONE SYRINGE THREE TIMES A DAY [id number] Start: 06-05-2018 Test qid . [id number] Start: 08-07-2018 1 Pen Needle by Miscellaneous route 4 (four) times a day . [id number] Start: 08-09-2018 by Miscellaneous route 4 (four) times a day . [id number] Start: 11-12-2020 USE ONE SYRINGE THREE TIMES A DAY . [id number] Start: 11-12-2020 Test qid . [id number] Start: 11-12-2020 BD Ultra-Fine Sh ort Pen Needle 31 gauge x 5/16 needle [id number] Start: 03-02-2022 End: 02-21-2023 lancets 33 gauge misc [id number] End: 03-21-2023 1 each in the mo rning and 1 each before bedtime. [id number] End: 07-08-2022 1 each in the mo rning and 1 each before bedtime. [id number] Start: 07-09-2022 End: 03-21-2023 USE DIRECTED [id number] Start: 02-21-2023 End: 05-25-2023 1 each 2 times a day. [id number] Sta rt: 03-21-2023 1 each 2 times a day. [id number] Sta rt: 03-21-2023 USE DIRECTED [id number] Start: 05-25-2023 Patella, Triathl on, Asymmetric X3, Sz-A29 9mm - [id number] Start: 06-10-2023 Fem Comp, Triath Cr Sz4 Left - [id number] Start: 06-10-2023 Plate, Tibial Tr iath Vipul Ila Fxd Bplt P4 - [id number] Start: 06-10-2023 Surgical Simplex P Bone Cement [id number] Start: 06-10-2023 10mm Triathlon C s Tibial Insert - [id number] Start: 06-10-2023 Cement, Bone, Si mplex P, Radiopaque, Full Dose, 40 Gm - [id number] Start: 06-10-2023 USE DIRECTED [id number] Start: 07-28-2023 Goals Date Patient Goal Desired Activity /State Comment on above: Formatting of this n ote might be different from the original. Good Nutrition: Make healthier food choices Reduce portion size Follow meal plan Comment on above: Formatting of this n ote might be different from the original. Goal to get PP BS below 180 Comment on above: Formatting of this n ote might be different from the original. Blood sugar levels outside the normal range may be an indicator of diabetes. Clinical Notes 10-22-2020 to 08-25-2023 Kelly Carrasco PA-C - 08/25/2023 9:45 AM EDTPatient InstructionsAttachmentsFredy Styles MD - 07/22/2023 9:30 AM EDTFshereen Styles MD - 06/17/2023 9:00 AM ESTDischarge InstructionsInstructions Note Date & Type Note Facility 08-25-2023 History of Present illness Narrative Subjective Patient ID: Janelle Pickett is a 68 y.o. female who presents for Back Pain (FOLLOW UP LOWER BACK PAIN, SHE STATES HER LOWER BACK PAIN IS WORSE IN THE MORNING VERY TIGHT ACHE, SHE WILL TAKE IBUPROFEN USE HEATING PAD OR ICE FOR RELIEF, SHE DOES HOME STRETCHING EXERCISES FOR RELIEF, WALKING MAKES HER PAIN WORSE, SHE AMBULATES VERY SLOW AND CANNOT STAND FOR MORE THAN 3 MINUTES, ). SHE NO LONGER USES HER WALKER, SHE IS USING METHOCARBAMOL AND GABAPENTIN DAILY, PAIN SCORE 7/10, PAULIE=54% Micheline Bui CMA 08/25/23 9:33 AM Patient is a 68-year-old female. She presents today to once again discuss her lower back pain with bilateral radiating leg pain. She states that it has started to slightly return. It is not yet back to where it was but it is starting to return and she wants to feel over the summer. Patient most recently underwent an L5-S1 epidural steroid injection. This was done on 06/03/2023. She is once again noticing lower back pain with radicular symptoms, she has also tried OTC anti-inflammatory medication without any relief. She intermittently uses ibuprofen. This gives slight relief. She is not able to use Tylenol due to cirrhosis. She is using gabapentin. 800 mg 3 times a day. She tolerates this well. It does give her improvement and she feels that it is overall beneficial to her. She also uses methocarbamol. She tolerates these well. She is just here today to discuss having another injection. Review of Systems Constitutional: Negative. HENT: Negative. Eyes: Negative. Respiratory: Negative. Cardiovascular: Negative. Gastrointestinal: Negative. Endocrine: Negative. Genitourinary: Negative. Musculoskeletal: Positive for arthralgias, back pain, gait problem and myalgias. Skin: Negative. Allergic/Immunologic: Negative. Neurological: Positive for weakness and numbness. Hematological: Negative. Psychiatric/Behavioral: Negative. Objective Physical Exam Vitals and nursing note reviewed. Constitutional: Appearance: Normal appearance. She is obese. HENT: Head: Normocephalic and atraumatic. Right Ear: External ear normal. Left Ear: External ear normal. Nose: Nose normal. Mouth/Throat: Pharynx: Oropharynx is clear. Eyes: Conjunctiva/sclera: Conjunctivae normal. Cardiovascular: Rate and Rhythm: Normal rate and regular rhythm. Pulses: Normal pulses. Pulmonary: Effort: Pulmonary effort is normal. Musculoskeletal: General: Normal range of motion. Cervical back: Normal range of motion. Comments: 5/5 strength throughout other than pain with movement of the left knee Ambulating with a walker Skin: General: Skin is warm and dry. Neurological: General: No focal deficit present. Mental Status: She is alert and oriented to person, place, and time. Mental status is at baseline. Psychiatric: Mood and Affect: Mood normal. Behavior: Behavior normal. Thought Content: Thought content normal. Judgment: Judgment normal. MR lumbar spine wo IV contrast Status: Final result PACS Images Show images for MR lumbar spine wo IV contrast Signed by Signed Time Phone Pager Daiana Edwards, 11/20/2021 08:14 [phone] Exam Information Status Exam Begun Exam Ended Final 11/19/2021 14:36 11/19/2021 15:21 Study Result Narrative & Impression Patient Name: JANELLE PICKETT STUDY: MRI L-SPINE WO; 11/19/2021 3:21 pm INDICATION: lower back and leg pain NO TO MRI QUESTIONS M54.42: Chronic low back pain with left-sided sciatica, unspecified back pain laterality M48.061: Degenerative lumbar spinal stenosis M54.16: Lumbar radiculopathy, chronic. COMPARISON: Radiographs November 16, 2021 ACCESSION NUMBER(S): [id number] ORDERING CLINICIAN: KELLY CARRASCO TECHNIQUE: Sagittal T1, T2, STIR, axial T1 and T2 weighted images of the lumbar spine were acquired. FINDINGS: Alignment: There is subtle, grade 1 anterolisthesis of L4 on L5 and to a lesser extent of L5 on S1. Vertebrae/Intervertebral Discs: The vertebral bodies demonstrate expected height. The marrow signal is mildly inhomogeneous throughout on T1 weighted imaging. There are scattered ovoid foci of increased signal on T1 and T2 weighted imaging which may represent hemangiomas or focal fatty rests. There is multilevel disc desiccation and mild degenerative endplate spurring. Conus: The lower thoracic cord appears unremarkable. The conus terminates at L1-2. T12-L1: Minimal disc bulging does not narrow the central canal. L1-2: Minimal disc bulging and left greater than right degenerative facet arthropathy do not narrow the central canal or neuroforamina. L2-3: There is no significant central canal or neural foraminal stenosis. L3-4: Minimal disc bulging and facet and ligamentum flavum hypertrophy do not narrow the central canal or neuroforamina. L4-5: Facet and ligamentum flavum hypertrophy mildly impress on the posterior thecal sac. There is mild circumferential disc bulging asymmetric to the left producing narrowing of the lateral recesses, left greater than right and mild flattening of the ventral thecal sac. There is mild left sided neuroforaminal stenosis. The right neuroforamen is patent . L5-S1: Mild circumferential disc bulging and endplate spurring and degenerative facet arthropathy contribute to mild neuroforaminal stenosis. There is no significant narrowing of the central canal. The prevertebral and posterior paraspinous soft tissues are unremarkable. There is a small left renal lesion favored to represent a cyst. There is a partially imaged right adrenal lesion measuring approximately 16 mm. IMPRESSION: Mild degenerative changes of the lumbar spine primarily involving L4-5 and L5-S1. Indeterminate right adrenal lesion, incompletely included on the obtained [id number]. CT washout study or MRI with in and out of phase imaging is recommended for evaluation. A Yellow Alert message was sent to the referring physician Dr. KELLY CARRASCO through the [email or web address] system at 8:14 am on 11/20/[address]Jennifer Edwards Assessment/Plan Diagnoses and all orders for this visit: Lumbar radiculopathy, chronic - gabapentin (Neurontin) 800 mg tablet; Take 1 tablet (800 mg) by mouth 3 times a day. - methocarbamol (Robaxin) 500 mg tablet; Take 1 tablet (500 mg) by mouth 3 times a day as needed for muscle spasms. Degenerative lumbar spinal stenosis - gabapentin (Neurontin) 800 mg tablet; Take 1 tablet (800 mg) by mouth 3 times a day. Degenerative disc disease at L5-S1 level - gabapentin (Neurontin) 800 mg tablet; Take 1 tablet (800 mg) by mouth 3 times a day. Chronic bilateral low back pain, unspecified whether sciatica present S/P total knee arthroplasty, left - gabapentin (Neurontin) 800 mg tablet; Take 1 tablet (800 mg) by mouth 3 times a day. Patient is a 68-year-old female with the above-mentioned medical diagnoses. At this time, she has noted that a lot of her lower back pain and leg pain have started to return. It is not quite as bad as it was before the most recent injection which was done almost 3 months ago. She feels that this injection gave her very significant relief and unfortunately, over the last few weeks she has noticed that some of the pain is returning. We once again reviewed her imaging. Based on her imaging findings, her pain pattern, improve with conservative treatments and the significant response she got from the previous injection I recommended once again pursuing an L5-S1 epidural steroid injection under fluoroscopy for both diagnostic and therapeutic purposes. Procedure was discussed previous and benefits were discussed. Diagnosis-M54.16. She will hold ibuprofen for 1 day before the procedure. Call clinic sooner if necessary. Otherwise follow-up 2 weeks after. documented in this encounter [facility] Work Phone: 08-25-2023 Instructions Faviola Hughes RN - 08/25/2023 9:45 AM EDT Injection education completed written and verbally. The following attachments cannot be sent through Care Everywhere.Epidural Injection (Salvadorean)documented in this encounter [facility] Work Phone: 07-22-2023 History of Present illness Narrative Images from the original note were not included. No chief complaint on file. The patient is here for follow-up of their side: left knee arthroplasty. The patient has moderate knee pain. The patient has no mechanical symptoms. The patient has mild swelling. The patient is approximately 5 week(s) postop Physical examination: Examination of the side: left knee The incision is healing well one small area in the proximal incision that appears to be a ball of scar with possible vicryl suture involvement, unable to express any fluid or pus on palpation No erythema or warmth. No instability varus or valgus stressing the knee at 0, 30 or 60 degrees. No instability in the AP plane at 90 degrees. Range of motion: 0 degrees extension, 110 degrees flexion There is moderate tenderness Calf is soft, Homans negative The patient has intact ankle dorsiflexion and plantarflexion. Radiographs: Left knee films show a total knee arthroplasty in satisfactory position. The patella is well-positioned. No fracture is identified. No obvious loosening or wear is appreciated. Impression: Status post side: left total knee arthroplasty Plan: Refill pain medication, OARRS reviewed Outpatient physical therapy Follow up in 9 weeks All questions answered documented in this encounter [facility] Work Phone: 06-17-2023 History of Present illness Narrative Images from the original note were not included. No chief complaint on file. The patient is here for follow-up of their side: left knee arthroplasty. The patient has moderate knee pain. The patient has mild mechanical symptoms. The patient has moderate swelling. The patient is approximately 1 week(s) postop Physical examination: Examination of the side: left knee The incision is healing well No erythema or warmth. No instability varus or valgus stressing the knee at 0, 30 or 60 degrees. No instability in the AP plane at 90 degrees. Range of motion: -10 degrees extension, 90 degrees flexion There is moderate tenderness Calf is soft, Homans negative The patient has intact ankle dorsiflexion and plantarflexion. Radiographs: Left knee films show a total knee arthroplasty in satisfactory position. The patella is well-positioned. No fracture is identified. No obvious loosening or wear is appreciated. Impression: Status post side: left total knee arthroplasty Plan: Continue aspirin for 3 more weeks 81 mg twice daily I will order support stockings for her Reorder pain medication Outpatient physical therapy Follow up in 1 month All questions answered documented in this encounter [facility] Work Phone: 06-12-2023 History of Present illness Narrative Patient is ready for discharge and will be returning home today. SW did call and spoke with her to confirm that she will have [facility]. She said that her sister will be picking her up to take her home and will also be with her over the next 2 weeks. Explained that she should get a call from [facility] in the next day to inform when they will be out. She voiced understanding.Patient home today with [facility] Physical Therapy Physical Therapy Treatment Patient Name: Janelle Pickett Today's Date: 06/12/2023 Time Calculation Start Time: 1400 Stop Time: 1416 Time Calculation (min): 16 min Assessment/Plan PT Assessment PT Assessment Results: Decreased strength, Decreased range of motion, Decreased endurance, Impaired balance, Decreased mobility, Pain Rehab Prognosis: Good Evaluation/Treatment Tolerance: Patient tolerated treatment well, Patient limited by pain, Patient limited by fatigue Medical Staff Made Aware: Yes Barriers to Participation: (pain) End of Session Communication: Bedside nurse, Physician Assessment Comment: Educated pt with LLE lead ascending stairs, RLE lead descending. Definite need of UE support with all transfers and stair neogotiation. Pt able to complete toileting herself including pulling up brief however assistance required to put brief on feet d/t ROM and strength limitation in LLE. CGA throughout standing d/t occasional LOB which pt recovers from mod I with grab bars. End of Session Patient Position: Up in chair, Alarm on PT Plan Inpatient/Swing Bed or Outpatient: Inpatient PT Plan Treatment/Interventions: Bed mobility, Transfer training, Gait training, Stair training, Balance training, Neuromuscular re-education, Strengthening, Endurance training, Range of motion, Therapeutic exercise, Therapeutic activity, Home exercise program (Manual Therapy) PT Plan: Skilled PT PT Frequency: BID PT Discharge Recommendations: Low intensity level of continued care PT Recommended Transfer Status: Assist x1, Assistive device PT - OK to Discharge: Yes (PT eval complete, ok to d/c once deemed medically appropriate and successful stair trial.) General Visit Information: PT Visit PT Received On: 06/12/23 Subjective Objective Pain: Pain Assessment Pain Assessment: 0-10 Pain Score: 7 Pain Type: Surgical pain Pain Location: Knee Pain Orientation: Left Pain Interventions: Repositioned Cognition: Cognition Overall Cognitive Status: Within Functional Limits Postural Control: Static Standing Balance Static Standing-Balance Support: (Fair with 0UE support and good with 1-2UE suport) Dynamic Standing Balance Dynamic Standing-Balance Support: (fair with 1UE support) Activity Tolerance: Activity Tolerance Endurance: Tolerates 10 - 20 min exercise with multiple rests Treatments: Therapeutic Activity Therapeutic Activity Performed: Yes Therapeutic Activity 1: Toilet transfers and toileting Therapeutic Activity 2: Stair negotiation BUE support Transfer 1 Transfer From 1: (wheelchair <> toilet) Technique 1: Stand pivot, Sit to stand, Stand to sit Transfer Device 1: Gait belt Transfer Level of Assistance 1: Contact guard Transfers 2 Transfer From 2: (chair with arms <> wheelchair) Technique 2: Stand pivot, Sit to stand, Stand to sit Transfer Device 2: Gait belt Transfer Level of Assistance 2: Contact guard Transfers 3 Transfer From 3: (sit <> stand from toilet x2, wheelchair x5, chair with arms x2) Transfer Device 3: Gait belt Transfer Level of Assistance 3: Contact guard Trials/Comments 3: Definite need of UE support Stairs Stairs: Yes Stairs Rails 1: Bilateral Assistance 1: Contact guard Comment/Number of Steps 1: Ascend/ descend 4 steps with step to pattern (LLE lead with asc, RLE lead with desc) Outcome Measures: [facility] Basic Mobility Turning from your back to your side while in a flat bed without using bedrails: None Moving from lying on your back to sitting on the side of a flat bed without using bedrails: A little Moving to and from bed to chair (including a wheelchair): A little Standing up from a chair using your arms (e.g. wheelchair or bedside chair): A little To walk in hospital room: A little Climbing 3-5 steps with railing: A little Basic Mobility - Total Score: 19 Education Documentation Mobility Training, taught by Shelly Wolff PT at 06/12/2023 2:29 PM. Learner: Patient Readiness: Acceptance Method: Explanation Response: Verbalizes Understanding Comment: up with the good leg & down with the bad for stair negotiation. Education Comments No comments found. OP EDUCATION: Encounter Problems Encounter Problems (Active) PT Problem Pt will demonstrate sup > sit and sit > sup bed mobility mod I (Progressing) Start: 06/10/23 Expected End: 06/24/23 Pt will demo sit > stand and stand > sit transfer with ww and mod I (Progressing) Start: 06/10/23 Expected End: 06/24/23 Pt will ambulate 100' with ww and mod I, without LOB (Progressing) Start: 06/10/23 Expected End: 06/24/23 Pt will demo up/down 5 steps with handrail mod I, with appropriate sequencing of L LE (Progressing) Start: 06/10/23 Expected End: 06/24/23 Pt will display L knee ROM 0-95 deg to facilitate stair negotiation (Progressing) Start: 06/10/23 Expected End: 06/24/23 Physical Therapy Physical Therapy Physical Therapy Treatment Patient Name: Janelle Pickett Today's Date: 06/12/2023 Time Calculation Start Time: 954 Stop Time: 5 Time Calculation (min): 30 min Assessment/Plan PT Assessment PT Assessment Results: Decreased strength, Decreased range of motion, Decreased endurance, Impaired balance, Decreased mobility, Impaired judgement, Decreased safety awareness, Pain Rehab Prognosis: Fair Evaluation/Treatment Tolerance: Patient limited by pain End of Session Communication: Bedside nurse Assessment Comment: Patient shows improved ability to transfer from sit to stand and stand to sit without cues and improved eccentric control with lowering. Patient able to ambulate 28' with FWW and CGA. cues for heel strike with patient able to demonstrate. End of Session Patient Position: On cart, Up in chair PT Plan Inpatient/Swing Bed or Outpatient: Inpatient PT Plan Treatment/Interventions: Bed mobility, Transfer training, Gait training, Stair training, Balance training, Neuromuscular re-education, Strengthening, Endurance training, Range of motion, Therapeutic exercise, Therapeutic activity, Home exercise program (Manual Therapy) PT Plan: Skilled PT PT Frequency: BID PT Discharge Recommendations: Low intensity level of continued care PT Recommended Transfer Status: Assist x1, Assistive device PT - OK to Discharge: Yes (PT eval complete, ok to d/c once deemed medically appropriate and successful stair trial.) Current Problem: Patient Active Problem List Diagnosis Acute pain of left knee 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 Cirrhosis of liver (CMS/HCC) COPD (chronic obstructive pulmonary disease) (CMS/HCC) Degenerative lumbar spinal stenosis Depression Kidney insufficiency Lumbar radiculopathy, chronic Myalgia Pain in thoracic spine Pain and swelling of left lower leg Degenerative disc disease at L5-S1 level Depression, major, recurrent, moderate (CMS/HCC) Elevated antinuclear antibody (KARIME) level Hypertension associated with diabetes (CMS/HCC) Mild cognitive impairment Sacroiliac joint dysfunction of left side Chronic back pain Claustrophobia Abdominal pain, generalized Diabetes mellitus with stage 3 chronic kidney disease (CMS/HCC) Chronic constipation Abnormal biliary HIDA scan Gross hematuria Dysuria Breast cancer screening by mammogram Post-menopausal Acquired hypothyroidism Vulvovaginal candidiasis Calculus of gallbladder with chronic cholecystitis without obstruction Hypomagnesemia Abdominal guarding Gastroesophageal reflux disease without esophagitis Abdominal pain, acute, right upper quadrant Low vitamin B12 level Vitamin D deficiency Primary osteoarthritis of left knee COPD exacerbation (CMS/HCC) Class 3 severe obesity due to excess calories with serious comorbidity and body mass index (BMI) of 40.0 to 44.9 in adult (CMS/HCC) Leg swelling Arthritis of left knee Adenoma of right adrenal gland Asthma General Visit Information: PT Visit PT Received On: 06/12/23 Subjective Patient agrees to ambulation and seated exercises. Precautions: Precautions LE Weight Bearing Status: Weight Bearing as Tolerated (LLE) Medical Precautions: Oxygen therapy device and L/min Vital Signs: Vital Signs Heart Rate: 60 SpO2: 91 % Objective Pain: Pain Assessment Pain Assessment: 0-10 Pain Score: 2 Pain Type: Surgical pain Pain Location: Knee Pain Orientation: Left Cognition: Cognition Overall Cognitive Status: Within Functional Limits Orientation Level: Disoriented to time Treatments: Therapeutic Exercise Therapeutic Exercise Performed: Yes Therapeutic Exercise Activity 1: APs x15 Therapeutic Exercise Activity 2: HR/TR x15 Therapeutic Exercise Activity 3: LAQ x15 Therapeutic Exercise Activity 4: Seated marcing x15 Therapeutic Exercise Activity 5: resisted hip abd x15 Therapeutic Exercise Activity 6: iso hip add x15 Ambulation/Gait Training Ambulation/Gait Training Performed: Yes Ambulation/Gait Training 1 Surface 1: Level tile Device 1: Rolling walker Gait Support Devices: Gait belt Assistance 1: Contact guard Quality of Gait 1: Foot slap Comments/Distance (ft) 1: 28' Transfers Transfer: Yes Transfer 1 Transfer From 1: Sit to, Stand to Transfer to 1: Sit, Stand Technique 1: Sit to stand, Stand to sit Transfer Device 1: Walker, Gait belt Transfer Level of Assistance 1: Contact guard Outcome Measures: [facility] Basic Mobility Turning from your back to your side while in a flat bed without using bedrails: None Moving from lying on your back to sitting on the side of a flat bed without using bedrails: A little Moving to and from bed to chair (including a wheelchair): A little Standing up from a chair using your arms (e.g. wheelchair or bedside chair): None To walk in hospital room: A little Climbing 3-5 steps with railing: A little Basic Mobility - Total Score: 20 Education Documentation Handouts, taught by Jasmine Wooten PTA at 06/12/2023 11:20 AM. Learner: Patient Readiness: Acceptance Method: Demonstration, Explanation Response: Demonstrated Understanding, Verbalizes Understanding Home Exercise Program, taught by Jasmine Wooten PTA at 06/12/2023 11:20 AM. Learner: Patient Readiness: Acceptance Method: Demonstration, Explanation Response: Demonstrated Understanding, Verbalizes Understanding Mobility Training, taught by Jasmine Wooten PTA at 06/12/2023 11:20 AM. Learner: Patient Readiness: Acceptance Method: Demonstration, Explanation Response: Demonstrated Understanding, Verbalizes Understanding Body Mechanics, taught by Jasmine Wooten PTA at 06/12/2023 11:20 AM. Learner: Patient Readiness: Acceptance Method: Demonstration, Explanation Response: Demonstrated Understanding, Verbalizes Understanding ADL Training, taught by Jasmine Wooten PTA at 06/12/2023 11:20 AM. Learner: Patient Readiness: Acceptance Method: Demonstration, Explanation Response: Demonstrated Understanding, Verbalizes Understanding Handouts, taught by Jasmine Wooten PTA at 06/11/2023 1:11 PM. Learner: Patient Readiness: Acceptance Method: Demonstration Response: Needs Reinforcement, Verbalizes Understanding Home Exercise Program, taught by Jasmine Wooten PTA at 06/11/2023 1:11 PM. Learner: Patient Readiness: Acceptance Method: Demonstration Response: Needs Reinforcement, Verbalizes Understanding Mobility Training, taught by Jasmine Wooten PTA at 06/11/2023 1:11 PM. Learner: Patient Readiness: Acceptance Method: Demonstration Response: Needs Reinforcement, Verbalizes Understanding Body Mechanics, taught by Jasmine Wooten PTA at 06/11/2023 1:11 PM. Learner: Patient Readiness: Acceptance Method: Demonstration Response: Needs Reinforcement, Verbalizes Understanding ADL Training, taught by Jasmine Wooten PTA at 06/11/2023 1:11 PM. Learner: Patient Readiness: Acceptance Method: Demonstration Response: Needs Reinforcement, Verbalizes Understanding Education Comments No comments found. EDUCATION: Encounter Problems Encounter Problems (Active) PT Problem Pt will demonstrate sup > sit and sit > sup bed mobility mod I (Progressing) Start: 06/10/23 Expected End: 06/24/23 Pt will demo sit > stand and stand > sit transfer with ww and mod I (Progressing) Start: 06/10/23 Expected End: 06/24/23 Pt will ambulate 100' with ww and mod I, without LOB (Progressing) Start: 06/10/23 Expected End: 06/24/23 Pt will demo up/down 5 steps with handrail mod I, with appropriate sequencing of L LE (Progressing) Start: 06/10/23 Expected End: 06/24/23 Pt will display L knee ROM 0-95 deg to facilitate stair negotiation (Progressing) Start: 06/10/23 Expected End: 06/24/23 Discussed patient in care rounds and there are no discharge plans for today. In talking with [employer]CHNICIAN she is suggesting SNF-however patient is not in agreement. In talking with RN ,it was advised that SW does not talk with patient today as she is highly upset that she is not going home. Will follow tomorrow. [facility] Physical Therapy Treatment Patient Name: Janelle Pickett Today's Date: 06/11/2023 Time Calculation Start Time: 1302 Stop Time: 1323 Time Calculation (min): 21 min Assessment/Plan PT Assessment PT Assessment Results: Decreased strength, Decreased range of motion, Decreased endurance, Impaired balance, Decreased mobility, Impaired judgement, Decreased safety awareness, Pain Rehab Prognosis: Fair Evaluation/Treatment Tolerance: Patient limited by pain Assessment Comment: Pt crying while sitting EOB d/t knee pain however is able to sit with good balance without LE or UE support while bathing self with washcloth. Requires mod A for LLE management sit > supine. Demos impulsivity with squat pivot transfer from bed > chair and requires min A to avoid falling forward. Able to scoot self up in chair mod I and able to bridge in bed mod I. End of Session Patient Position: On cart, Up in chair PT Plan Inpatient/Swing Bed or Outpatient: Inpatient PT Plan Treatment/Interventions: Bed mobility, Transfer training, Gait training, Stair training, Balance training, Neuromuscular re-education, Strengthening, Endurance training, Range of motion, Therapeutic exercise, Therapeutic activity, Home exercise program (Manual Therapy) PT Plan: Skilled PT PT Frequency: BID PT Discharge Recommendations: Low intensity level of continued care PT Recommended Transfer Status: Assist x1, Assistive device PT - OK to Discharge: Yes (PT eval complete, ok to d/c once deemed medically appropriate and successful stair trial.) General Visit Information: PT Visit PT Received On: 06/11/23 General Family/Caregiver Present: (aide present giving pt bath at bedside upon arrival. Aide present during session.) Patient Position Received: (sitting EOB) Subjective Objective Pain: Pain Assessment Pain Assessment: 0-10 Pain Score: 10 - Worst possible pain Pain Location: Knee Pain Orientation: Left Cognition: WFL Postural Control: Static Sitting Balance Static Sitting-Balance Support: No upper extremity supported, Feet unsupported Static Sitting-Level of Assistance: Independent Dynamic Sitting Balance Dynamic Sitting-Balance Support: No upper extremity supported, Feet unsupported Dynamic Sitting-Comments: IND Treatments: Therapeutic Activity Therapeutic Activity Performed: Yes Therapeutic Activity 1: Sit <> stand from chair x2. Squat pivot transfer from bed > chair x1 with min A to avoid falling forward. Therapeutic Activity 2: Sit > supine. Requires mod A for LLE management Outcome Measures: [facility] Basic Mobility Turning from your back to your side while in a flat bed without using bedrails: A little Moving from lying on your back to sitting on the side of a flat bed without using bedrails: A little Moving to and from bed to chair (including a wheelchair): A little Standing up from a chair using your arms (e.g. wheelchair or bedside chair): A little To walk in hospital room: A lot Climbing 3-5 steps with railing: Total Basic Mobility - Total Score: 15 Education Documentation No documentation found. Education Comments No comments found. OP EDUCATION: Encounter Problems Encounter Problems (Active) PT Problem Pt will demonstrate sup > sit and sit > sup bed mobility mod I (Progressing) Start: 06/10/23 Expected End: 06/24/23 Pt will demo sit > stand and stand > sit transfer with ww and mod I (Progressing) Start: 06/10/23 Expected End: 06/24/23 Pt will ambulate 100' with ww and mod I, without LOB (Progressing) Start: 06/10/23 Expected End: 06/24/23 Pt will demo up/down 5 steps with handrail mod I, with appropriate sequencing of L LE (Progressing) Start: 06/10/23 Expected End: 06/24/23 Pt will display L knee ROM 0-95 deg to facilitate stair negotiation (Progressing) Start: 06/10/23 Expected End: 06/24/23 Physical Therapy Physical Therapy Physical Therapy Treatment Patient Name: Janelle Pickett Today's Date: 06/11/2023 Time Calculation Start Time: 940 Stop Time: 958 Time Calculation (min): 18 min Assessment/Plan PT Assessment PT Assessment Results: Decreased strength, Decreased range of motion, Decreased endurance, Impaired balance, Decreased mobility, Decreased safety awareness, Obesity, Pain, Orthopedic restrictions Rehab Prognosis: Excellent End of Session Communication: Bedside nurse Assessment Comment: Patient was was oriented x3 but was very slow with answering questions. checked with nursing who stated patient is appropriate to treat but had pain meds and that may be causing some drowsiness. Patient required moderate cuing to continue with reps of seated exercise and for form with LE exercises. Some assist required with SAQ and mod to max A for assist with SLR.Did not perform standing Ther Ex or ambulation this morning secondary to patient having difficulty maintaining focus and following commands End of Session Patient Position: Up in chair, Alarm on PT Plan Treatment/Interventions: Bed mobility, Transfer training, Gait training, Stair training, Balance training, Neuromuscular re-education, Strengthening, Endurance training, Range of motion, Therapeutic exercise, Therapeutic activity, Home exercise program (Manual Therapy) PT Plan: Skilled PT PT Frequency: BID PT Discharge Recommendations: Low intensity level of continued care PT Recommended Transfer Status: Assist x1, Assistive device PT - OK to Discharge: Yes (PT eval complete, ok to d/c once deemed medically appropriate and successful stair trial.) Current Problem: Patient Active Problem List Diagnosis Acute pain of left knee 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 Cirrhosis of liver (CMS/HCC) COPD (chronic obstructive pulmonary disease) (CMS/HCC) Degenerative lumbar spinal stenosis Depression Kidney insufficiency Lumbar radiculopathy, chronic Myalgia Pain in thoracic spine Pain and swelling of left lower leg Degenerative disc disease at L5-S1 level Depression, major, recurrent, moderate (CMS/HCC) Elevated antinuclear antibody (KARIME) level Hypertension associated with diabetes (CMS/HCC) Mild cognitive impairment Sacroiliac joint dysfunction of left side Chronic back pain Claustrophobia Abdominal pain, generalized Diabetes mellitus with stage 3 chronic kidney disease (CMS/HCC) Chronic constipation Abnormal biliary HIDA scan Gross hematuria Dysuria Breast cancer screening by mammogram Post-menopausal Acquired hypothyroidism Vulvovaginal candidiasis Calculus of gallbladder with chronic cholecystitis without obstruction Hypomagnesemia Abdominal guarding Gastroesophageal reflux disease without esophagitis Abdominal pain, acute, right upper quadrant Low vitamin B12 level Vitamin D deficiency Primary osteoarthritis of left knee COPD exacerbation (CMS/HCC) Class 3 severe obesity due to excess calories with serious comorbidity and body mass index (BMI) of 40.0 to 44.9 in adult (CMS/HCC) Leg swelling Arthritis of left knee Adenoma of right adrenal gland Asthma General Visit Information: PT Visit PT Received On: 06/11/23 Subjective Patient states that her L hp pain is 7/10 currently. State that she is very tired but agrees to chair exercises. Precautions: Precautions LE Weight Bearing Status: Weight Bearing as Tolerated (LLE) Medical Precautions: Oxygen therapy device and L/min Vital Signs: Vital Signs Heart Rate: 60 SpO2: 91 % Objective Pain: Pain Assessment Pain Assessment: 0-10 Pain Score: 7 Pain Type: Surgical pain Pain Location: Hip Pain Orientation: Left Cognition: Cognition Orientation Level: Disoriented to time Treatments: Therapeutic Exercise Therapeutic Exercise Performed: Yes Therapeutic Exercise Activity 1: APs x15 Therapeutic Exercise Activity 2: SAQ x 10 Therapeutic Exercise Activity 3: LAQ x 10 Therapeutic Exercise Activity 4: SLR x 8 Therapeutic Exercise Activity 5: Resisted hip abd x10 Therapeutic Exercise Activity 6: Iso Hip abd x10 Outcome Measures: [facility] Basic Mobility Turning from your back to your side while in a flat bed without using bedrails: A little Moving from lying on your back to sitting on the side of a flat bed without using bedrails: A little Moving to and from bed to chair (including a wheelchair): A little Standing up from a chair using your arms (e.g. wheelchair or bedside chair): A little To walk in hospital room: A little Climbing 3-5 steps with railing: A lot Basic Mobility - Total Score: 17 Education Documentation Handouts, taught by Jasmine Wooten PTA at 06/11/2023 1:11 PM. Learner: Patient Readiness: Acceptance Method: Demonstration Response: Needs Reinforcement, Verbalizes Understanding Home Exercise Program, taught by Jasmine Wooten PTA at 06/11/2023 1:11 PM. Learner: Patient Readiness: Acceptance Method: Demonstration Response: Needs Reinforcement, Verbalizes Understanding Mobility Training, taught by Jasmine Wooten PTA at 06/11/2023 1:11 PM. Learner: Patient Readiness: Acceptance Method: Demonstration Response: Needs Reinforcement, Verbalizes Understanding Body Mechanics, taught by Jasmine Wooten PTA at 06/11/2023 1:11 PM. Learner: Patient Readiness: Acceptance Method: Demonstration Response: Needs Reinforcement, Verbalizes Understanding ADL Training, taught by Jasmine Wooten PTA at 06/11/2023 1:11 PM. Learner: Patient Readiness: Acceptance Method: Demonstration Response: Needs Reinforcement, Verbalizes Understanding Education Comments No comments found. EDUCATION: Encounter Problems Encounter Problems (Active) PT Problem Pt will demonstrate sup > sit and sit > sup bed mobility mod I (Progressing) Start: 06/10/23 Expected End: 06/24/23 Pt will demo sit > stand and stand > sit transfer with ww and mod I (Progressing) Start: 06/10/23 Expected End: 06/24/23 Pt will ambulate 100' with ww and mod I, without LOB (Progressing) Start: 06/10/23 Expected End: 06/24/23 Pt will demo up/down 5 steps with handrail mod I, with appropriate sequencing of L LE (Progressing) Start: 06/10/23 Expected End: 06/24/23 Pt will display L knee ROM 0-95 deg to facilitate stair negotiation (Progressing) Start: 06/10/23 Expected End: 06/24/23 Images from the original note were not included. No chief complaint on file. The patient is seen for follow-up of their left knee arthroplasty. The patient has moderate knee pain. The patient has no mechanical symptoms. The patient has moderate swelling. The patient is approximately 1 day(s) postop Physical examination: Examination of the side: left knee The incision is covered No erythema or warmth. No instability varus or valgus stressing the knee at 0, 30 or 60 degrees. No instability in the AP plane at 90 degrees. Range of motion: -5 degrees extension, 80 degrees flexion There is moderate tenderness Calf is soft, Homans negative The patient has intact ankle dorsiflexion and plantarflexion. Radiographs: Post op XRAYS WNL Impression: Status post side: left total knee arthroplasty Plan: Wbat with PT today, discharge today if stable [facility] for PT Follow up in [address] Styles All questions answered Physical Therapy Physical Therapy Evaluation & Treatment Patient Name: Janelle Pickett Today's Date: 06/10/2023 Time Calculation Start Time: 161 Stop Time: 1645 Time Calculation (min): 33 min Assessment/Plan PT Assessment PT Assessment Results: Decreased strength, Decreased range of motion, Decreased endurance, Impaired balance, Decreased mobility, Decreased safety awareness, Obesity, Pain, Orthopedic restrictions Rehab Prognosis: Excellent End of Session Communication: Bedside nurse Assessment Comment: Pt presents with decreased functional mobility following L TKA as displayed by decreased L knee ROM, decreased balance, pain, and decreased safety awareness. Pt will benefit from skilled PT during hospital stay to address above deficits. End of Session Patient Position: Up in chair, Alarm on IP OR SWING BED PT PLAN Inpatient or Swing Bed: Inpatient PT Plan Treatment/Interventions: Bed mobility, Transfer training, Gait training, Stair training, Balance training, Neuromuscular re-education, Strengthening, Endurance training, Range of motion, Therapeutic exercise, Therapeutic activity, Home exercise program (Manual Therapy) PT Plan: Skilled PT PT Frequency: BID PT Discharge Recommendations: Low intensity level of continued care PT Recommended Transfer Status: Assist x1, Assistive device PT - OK to Discharge: Yes (PT eval complete, ok to d/c once deemed medically appropriate and successful stair trial.) Current Problem: Patient Active Problem List Diagnosis Acute pain of left knee 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 Cirrhosis of liver (CMS/HCC) COPD (chronic obstructive pulmonary disease) (CMS/HCC) Degenerative lumbar spinal stenosis Depression Kidney insufficiency Lumbar radiculopathy, chronic Myalgia Pain in thoracic spine Pain and swelling of left lower leg Degenerative disc disease at L5-S1 level Depression, major, recurrent, moderate (CMS/HCC) Elevated antinuclear antibody (KARIME) level Hypertension associated with diabetes (CMS/HCC) Mild cognitive impairment Sacroiliac joint dysfunction of left side Chronic back pain Claustrophobia Abdominal pain, generalized Diabetes mellitus with stage 3 chronic kidney disease (CMS/HCC) Chronic constipation Abnormal biliary HIDA scan Gross hematuria Dysuria Breast cancer screening by mammogram Post-menopausal Acquired hypothyroidism Vulvovaginal candidiasis Calculus of gallbladder with chronic cholecystitis without obstruction Hypomagnesemia Abdominal guarding Gastroesophageal reflux disease without esophagitis Abdominal pain, acute, right upper quadrant Low vitamin B12 level Vitamin D deficiency Primary osteoarthritis of left knee COPD exacerbation (CMS/HCC) Class 3 severe obesity due to excess calories with serious comorbidity and body mass index (BMI) of 40.0 to 44.9 in adult (CMS/HCC) Leg swelling Arthritis of left knee Adenoma of right adrenal gland Asthma Subjective General Visit Information: General Reason for Referral: s/p L TKA Referred By: Adam PT/OT Past Medical History Relevant to Rehab: asthma, COPD, HTN, depression, hypothyroidism, DM, GERD, cirrhosis, chronic LBP Co-Treatment: OT Co-Treatment Reason: Maximize pt safety while assessing discipline specific needs Patient Position Received: Bed, 3 rail up, Alarm on General Comment: Pt s/p elective L TKA by Dr. Styles 06/10/23. Home Living: Home Living Type of Home: House Lives With: Alone Home Adaptive Equipment: Walker rolling or standard, Cane Home Layout: One level, Laundry in basement Home Access: Stairs to enter with rails Entrance Stairs-Rails: Both Entrance Stairs-Number of Steps: 5 Bathroom Shower/Tub: Walk-in shower Bathroom Equipment: Grab bars in shower, Raised toilet seat with rails Home Living Comments: Pt stating her sister is able to stay with her. Sister is a nurse. Prior Level of Function: Prior Function Per Pt/Caregiver Report Level of [place]: Independent with ADLs and functional transfers, Independent with homemaking with ambulation ADL Assistance: Independent Homemaking Assistance: Independent Ambulatory Assistance: Independent Vocational: Retired Prior Function Comments: Drives. No falls. Precautions: Precautions LE Weight Bearing Status: Weight Bearing as Tolerated (LLE) Medical Precautions: Oxygen therapy device and L/min Vital Signs: Objective Pain: Pain Assessment Pain Assessment: 0-10 Pain Score: 9 Pain Type: Surgical pain Pain Location: Knee Pain Orientation: Left Cognition: Cognition Overall Cognitive Status: Within Functional Limits Orientation Level: Oriented X4 General Assessments: General Observation General Observation: IV, 2L O2 Strength Strength Comments: R LE MMT 4/5 overall; L LE MMT hip/knee NT recent surgery; ankle 4-/5 Postural Control Postural Control: Within Functional Limits Static Sitting Balance Static Sitting-Comment/Number of Minutes: Good Dynamic Sitting Balance Dynamic Sitting-Comments: Good Static Standing Balance Static Standing-Comment/Number of Minutes: Fair Dynamic Standing Balance Dynamic Standing-Comments: Fair Functional Assessments: Bed Mobility Bed Mobility: Yes Bed Mobility 1 Bed Mobility 1: Supine to sitting Level of Assistance 1: Minimum assistance Bed Mobility Comments 1: Assist for bringing BLE's over EOB, HOB elevated, use of bed rails to pull to sit Transfers Transfer: Yes Transfer 1 Technique 1: Sit to stand, Stand to sit Transfer Device 1: Gait belt, Walker Transfer Level of Assistance 1: Minimum assistance Trials/Comments 1: Assist for balance, cues for hand placement with ww; x2 reps Ambulation/Gait Training Ambulation/Gait Training Performed: Yes Ambulation/Gait Training 1 Surface 1: Level tile Device 1: Rolling walker Gait Support Devices: Gait belt Assistance 1: Minimum assistance Quality of Gait 1: Inconsistent stride length, Antalgic Comments/Distance (ft) 1: Pt ambulates 4' bed > BSC > chair, min A for safety/balance. Moments of L knee buckling. Extremity/Trunk Assessments: RLE RLE : Within Functional Limits LLE LLE : (hip WFL, knee 9-52 deg, ankle WFL) Treatments: Therapeutic Exercise Therapeutic Exercise Performed: Yes Therapeutic Exercise Activity 1: ankle pumps x20 Therapeutic Exercise Activity 2: glute set x20 Therapeutic Exercise Activity 3: quad set x20 Therapeutic Exercise Activity 4: SAQ x20 Therapeutic Exercise Activity 5: heel slide x10 Therapeutic Exercise Activity 6: SLR x10 Bed Mobility Bed Mobility: Yes Bed Mobility 1 Bed Mobility 1: Supine to sitting Level of Assistance 1: Minimum assistance Bed Mobility Comments 1: Assist for bringing BLE's over EOB, HOB elevated, use of bed rails to pull to sit Ambulation/Gait Training Ambulation/Gait Training Performed: Yes Ambulation/Gait Training 1 Surface 1: Level tile Device 1: Rolling walker Gait Support Devices: Gait belt Assistance 1: Minimum assistance Quality of Gait 1: Inconsistent stride length, Antalgic Comments/Distance (ft) 1: Pt ambulates 4' bed > BSC > chair, min A for safety/balance. Moments of L knee buckling. Transfers Transfer: Yes Transfer 1 Technique 1: Sit to stand, Stand to sit Transfer Device 1: Gait belt, Walker Transfer Level of Assistance 1: Minimum assistance Trials/Comments 1: Assist for balance, cues for hand placement with ww; x2 reps Outcome Measures: [facility] Basic Mobility Turning from your back to your side while in a flat bed without using bedrails: A little Moving from lying on your back to sitting on the side of a flat bed without using bedrails: A little Moving to and from bed to chair (including a wheelchair): A little Standing up from a chair using your arms (e.g. wheelchair or bedside chair): A little To walk in hospital room: A little Climbing 3-5 steps with railing: A lot Basic Mobility - Total Score: 17 Goals: Encounter Problems Encounter Problems (Active) PT Problem Pt will demonstrate sup > sit and sit > sup bed mobility mod I (Progressing) Start: 06/10/23 Expected End: 06/24/23 Pt will demo sit > stand and stand > sit transfer with ww and mod I (Progressing) Start: 06/10/23 Expected End: 06/24/23 Pt will ambulate 100' with ww and mod I, without LOB (Progressing) Start: 06/10/23 Expected End: 06/24/23 Pt will demo up/down 5 steps with handrail mod I, with appropriate sequencing of L LE (Progressing) Start: 06/10/23 Expected End: 06/24/23 Pt will display L knee ROM 0-95 deg to facilitate stair negotiation (Progressing) Start: 06/10/23 Expected End: 06/24/23 Education Documentation Handouts, taught by Alyssa Eason, PT at 06/10/2023 4:52 PM. Learner: Patient Readiness: Acceptance Method: Explanation, Handout Response: Verbalizes Understanding, Needs Reinforcement Home Exercise Program, taught by Alyssa Eason, PT at 06/10/2023 4:52 PM. Learner: Patient Readiness: Acceptance Method: Explanation, Handout Response: Verbalizes Understanding, Needs Reinforcement Mobility Training, taught by Alyssa Eason PT at 06/10/2023 4:52 PM. Learner: Patient Readiness: Acceptance Method: Explanation, Handout Response: Verbalizes Understanding, Needs Reinforcement Education Comments No comments found. Occupational Therapy Evaluation Patient Name: Janelle Pickett Today's Date: 06/10/2023 Time Calculation Start Time: 161 Stop Time: 1643 Time Calculation (min): 30 min Assessment: OT Assessment: pt s/p elective left TKA resulting in decreaed strength,balance, activity tolerance. pt would benefit from skilled OT intervention in order to return home safely at [facility] Prognosis: Good Medical Staff Made Aware: Yes End of Session Communication: Bedside nurse End of Session Patient Position: Up in chair, Alarm on OT Assessment Results: Decreased ADL status, Decreased functional mobility Prognosis: Good Medical Staff Made Aware: Yes Plan: OT Frequency: 2 times per week OT Discharge Recommendations: Low intensity level of continued care OT Recommended Transfer Status: Assist of 1, Minimal assist OT - OK to Discharge: Yes (ok to DC once medically stable) Subjective Current Problem: 1. Arthritis of left knee General: General Reason for Referral: s/p L TKA Referred By: Adam PT/OT Past Medical History Relevant to Rehab: asthma, COPD, HTN, depression, hypothyroidism, DM, GERD, cirrhosis, chronic LBP Co-Treatment: PT Co-Treatment Reason: Maximize pt safety while assessing discipline specific needs Patient Position Received: Bed, 3 rail up, Alarm on General Comment: Pt s/p elective L TKA by Dr. Styles 06/10/23. Precautions: LE Weight Bearing Status: Weight Bearing as Tolerated Medical Precautions: Oxygen therapy device and L/min (2lpm) Vital Signs: SpO2: 98 % Pain: Pain Assessment Pain Assessment: 0-10 Pain Score: 9 Pain Type: Surgical pain Pain Location: Knee Pain Orientation: (left knee) Objective Cognition: Overall Cognitive Status: Within Functional Limits Home Living: Type of Home: House Lives With: Alone Home Adaptive Equipment: Walker rolling or standard, Cane Home Layout: One level, Laundry in basement Home Access: Stairs to enter with rails Entrance Stairs-Rails: Both Entrance Stairs-Number of Steps: 5 Bathroom Shower/Tub: Walk-in shower Bathroom Equipment: Grab bars in shower, Raised toilet seat with rails Home Living Comments: pt states her sister will stay with her Prior Function: Level of [place]: Independent with ADLs and functional transfers, Independent with homemaking with ambulation ADL Assistance: Independent Homemaking Assistance: Independent Ambulatory Assistance: Independent Vocational: Retired Prior Function Comments: Drives. No falls. IADL History: ADL: Eating Assistance: Independent Grooming Assistance: Independent Bathing Assistance: Maximal UE Dressing Assistance: Stand by LE Dressing Assistance: Maximal Toileting Assistance with Device: Moderate Functional Assistance: Minimal (min A sit to stand and min A transfer bed to BSC and pt able to take a few steps BSC to recliner all with FWW) Activity Tolerance: Endurance: Endurance does not limit participation in activity Bed Mobility/Transfers: Bed Mobility Bed Mobility: Yes Bed Mobility 1 Bed Mobility 1: Supine to sitting Level of Assistance 1: Minimum assistance Transfers Transfer: Yes Transfer 1 Transfer From 1: Sit to, Stand to Transfer to 1: Sit, Stand Technique 1: Sit to stand, Stand to sit Transfer Device 1: Walker, Gait belt Transfer Level of Assistance 1: Minimum assistance Transfers 2 Transfer From 2: Bed to Transfer to 2: Commode-standard Technique 2: Stand pivot Transfer Device 2: Walker (gait belt) Transfer Level of Assistance 2: Minimum assistance Transfers 3 Transfer From 3: Commode-standard to Transfer to 3: Chair with arms Technique 3: Stand pivot (pt able to take a few steps min A to recliner using FWW) Vision:Vision - Basic Assessment Current Vision: No visual deficits Strength: Strength Comments: BUE WFL Perception: Outcome Measures:[facility] Daily Activity Putting on and taking off regular lower body clothing: A lot Bathing (including washing, rinsing, drying): A lot Putting on and taking off regular upper body clothing: A little Toileting, which includes using toilet, bedpan or urinal: A lot Taking care of personal grooming such as brushing teeth: None Eating Meals: None Daily Activity - Total Score: 17 Education Documentation Body Mechanics, taught by Aileen Black OT at 06/10/2023 4:52 PM. Learner: Family, Patient Readiness: Acceptance Method: Explanation, Demonstration Response: Demonstrated Understanding, Needs Reinforcement ADL Training, taught by Aileen Black OT at 06/10/2023 4:52 PM. Learner: Family, Patient Readiness: Acceptance Method: Explanation, Demonstration Response: Demonstrated Understanding, Needs Reinforcement Education Comments No comments found. Goals: Encounter Problems Encounter Problems (Active) ADLs Patient with complete lower body dressing with modified independent level of assistance donning all LE clothes with PRN adaptive equipment Start: 06/10/23 Expected End: 07/22/23 Patient will complete toileting including hygiene clothing management/hygiene with modified independent level of assistance. Start: 06/10/23 Expected End: 07/22/23 MOBILITY Patient will perform Functional mobility Household distances with modified independent level of assistance and front wheeled walker in order to improve safety and functional mobility. Start: 06/10/23 Expected End: 07/22/23 06/10/23 1612 Discharge Planning Living Arrangements Alone Support Systems Family members Assistance Needed Walker, 1 assist Type of Residence Private residence Number of Stairs to Enter Residence 5 Do you have animals or pets at home? No Who is requesting discharge planning? Provider Home or Post Acute Services In home services Type of Home Care Services Home OT;Home PT Patient expects to be discharged to: Home with [facility] Does the patient need discharge transport arranged? Yes RoundTrip coordination needed? No Has discharge transport been arranged? No Financial Resource Strain How hard is it for you to pay for the very basics like food, housing, medical care, and heating? Not hard Housing Stability In the last 12 months, was there a time when you were not able to pay the mortgage or rent on time? N In the last 12 months, how many places have you lived? 1 In the last 12 months, was there a time when you did not have a steady place to sleep or slept in a usp (including now)? N Transportation Needs In the past 12 months, has lack of transportation kept you from medical appointments or from getting medications? no In the past 12 months, has lack of transportation kept you from meetings, work, or from getting things needed for daily living? No Patient Choice Provider Choice list and CMS website (https://medicare.gov/care-compare #search) for post-acute Quality and Resource Measure Data were provided and reviewed with: Patient Patient / Family choosing to utilize agency / facility established prior to hospitalization Yes Care Transitions: Patient admitted for extended recovery from surgery. Met with patient at bedside. Role of TCC explained. Demographics and contact verified. She lives alone but said her sister Randi lives next door and can help her if needed. She is an active patient with her PCP Callie Mcdonough. [facility] [place] [facility]. She has a walker, can and raised toilet seat at home. She does use her walker for ambulation. She has been independent at home with ADL's and still drives. Discussed discharge plans. States she will return home and would like [facility] services for therapy. Discussed agency of choice and would like [facility]. Dr. Styles notified of patient [facility] agency choice for a referral. Her sister Randi Rizzo will be picking her up when discharged home. No further needs anticipated from care transitions. Care team available upon request. Malu Darden RN/TCC documented in this encounter [facility] Work Phone: 06-12-2023 Hospital course Narrative Discharge Diagnosis Arthritis of left knee Issues Requiring Follow-Up S/P left total knee arthroplasty Discharge Meds Your medication list START taking these medications Instructions Last Dose Given Next Dose Due aspirin 81 mg EC tablet Take 1 tablet (81 mg) by mouth 2 times a day. oxyCODONE 5 mg immediate release tablet Commonly known as: Roxicodone Take 1 tablet (5 mg) by mouth every 6 hours if needed for severe pain (7 - 10) for up to 7 days. CONTINUE taking these medications Instructions Last Dose Given Next Dose Due albuterol 90 mcg/actuation inhaler atorvastatin 20 mg tablet Commonly known as: Lipitor Take 1 tablet (20 mg) by mouth once daily. Autolet lancing device Blood glucose monitoring meter kit kit 1 each 2 times a day as needed (hyperglycemia and hypoglycemia symptoms). Breztri Aerosphere 160-9-4.8 mcg/actuation HFA aerosol inhaler Generic drug: eqkzhvwbct-imhynxqr-gqadiechtm Inhale 2 puffs 2 times a day. citalopram 40 mg tablet Commonly known as: CeleXA Take 1 tablet (40 mg) by mouth once daily. cyanocobalamin 1,000 mcg tablet Commonly known as: Vitamin B-12 Take 1 tablet (1,000 mcg) by mouth every other day. cyclobenzaprine 10 mg tablet Commonly known as: Flexeril diclofenac sodium 1 % gel Commonly known as: Voltaren dicyclomine 20 mg tablet Commonly known as: Bentyl Take 1 tablet (20 mg) by mouth 4 times a day as needed (Abd pain). docusate sodium 100 mg capsule Commonly known as: Colace Take 1 capsule (100 mg) by mouth 2 times a day as needed for constipation. DULoxetine [address] capsule Commonly known as: Cymbalta Take 1 capsule (20 mg) by mouth once daily. ergocalciferol 1.25 MG (15046 UT) capsule Commonly known as: Vitamin D-2 Take 1 cap twice weekly (on separate days) gabapentin 600 mg tablet Commonly known as: Neurontin Take 1 tablet (600 mg) by mouth 3 times a day. ibuprofen 600 mg tablet insulin glargine 100 unit/mL (3 mL) pen Commonly known as: Lantus Inject 40 Units under the skin 2 times a day. Take as directed per insulin instructions. Lantus Solostar U-100 Insulin 100 unit/mL (3 mL) pen Generic drug: insulin glargine Inject 40 units Subcutaneously BID ipratropium-albuteroL 0.5-2.5 mg/3 mL nebulizer solution Commonly known as: Duo-Neb lancets 33 gauge misc Commonly known as: OneTouch Delica Plus Lancet 1 each 2 times a day. levothyroxine 50 mcg tablet Commonly known as: Synthroid, Levoxyl Take 1 tablet (50 mcg) by mouth once daily. linaCLOtide 145 mcg capsule Commonly known as: Linzess Take 1 capsule (145 mcg) by mouth once daily in the morning. Take before meals. magnesium oxide 400 mg tablet Commonly known as: Mag-Ox Take 1 tablet (400 mg) by mouth 3 times a day. methocarbamol 500 mg tablet Commonly known as: Robaxin Take 1 tablet (500 mg) by mouth 3 times a day as needed for muscle spasms. metoprolol tartrate 50 mg tablet Commonly known as: Lopressor Take 1 tablet by mouth 2 times a day. montelukast 10 mg tablet Commonly known as: Singulair Take 1 tablet (10 mg) by mouth once daily at bedtime. nebulizers misc nystatin 100,000 unit/gram powder Commonly known as: Mycostatin nystatin 100,000 unit/gram powder Commonly known as: Mycostatin Apply 1 Application topically 3 times a day. omeprazole [address] capsule Commonly known as: PriLOSEC Take 1 capsule (40 mg) by mouth once daily in the morning. Take before meals. ondansetron ODT 4 mg disintegrating tablet Commonly known as: Zofran-ODT OneTouch Verio test strips strip Generic drug: blood sugar diagnostic 1 each 2 times a day. pen needle, diabetic 31 gauge x 5/16 needle Commonly known as: BD Ultra-Fine Short Pen Needle USE DIRECTED potassium chloride CR 10 mEq ER tablet Commonly known as: Klor-Con promethazine 25 mg tablet Commonly known as: Phenergan Take 1 tablet (25 mg) by mouth every 8 hours if needed for nausea or vomiting. semaglutide 2 mg/dose (8 mg/3 mL) pen injector Inject 2 mg under the skin 1 (one) time per week. Ozempic 2 mg/dose (8 mg/3 mL) pen injector Generic drug: semaglutide INJECT 2 MG UNDER THE SKIN 1 (ONE) TIME PER WEEK. sertraline 50 mg tablet Commonly known as: Zoloft Take 1 tablet (50 mg) by mouth once daily. Spiriva with HandiHaler 18 mcg inhalation capsule Generic drug: tiotropium tiZANidine 4 mg tablet Commonly known as: Zanaflex traZODone 100 mg tablet Commonly known as: Desyrel Take 1 tablet (100 mg) by mouth once daily at bedtime. Where to Get Your Medications These medications were sent to [id number] - [place] [id number] aspirin 81 mg EC tablet oxyCODONE 5 mg immediate release tablet Test Results Pending At Discharge Pending Labs No current pending labs. Hospital Course 67-year-old female with severe arthritis status post left total knee arthroplasty, also L5-S1 interlaminar epidural steroid injection with fluoroscopic guidance for back pain. Patient has history of COPD, Depression, Cirrhosis, Anxiety, Hypertension, Hyperlipidemia, Hypothyroidism. Medicine consulted for medical management Patient is having periods of confusion and according to nursing she is asking for pain medicine on a regular basis. Discussed with patient need to increase mobility. Patient worked with PT on going up and down stairs and did well. He is in fair condition and discharged home with home health care. Resume home meds. Prescription sent to [facility] pharmacy per Dr. Styles. Patient to continue aspirin therapy. Weightbearing as tolerated. Keep existing appointment for follow-up with Dr. Styles in 2 weeks. Follow-up with PCP as needed Pertinent Physical Exam At Time of Discharge Physical Exam General Appearance: Alert and oriented to place. She is confused to president and keeps saying the president is either Renee or Connor. She knows that it is 2023 but is unsure if it is May or June Skin: skin color pink, warm, and dry; dressing dry and intact to lt knee Eyes : PERRL, EOM's intact ENT: mucous membranes pink and moist Neck: normocephalic Respiratory: lungs clear to auscultation anteriorly; no wheezing, rhonchi, or crackles. Heart: regular rate and rhythm. telemetry shows sinus rhythm Abdomen: Nondistended, positive bowel sounds x4, soft, nontender Extremities: non-pitting edema to left ft Peripheral pulses: normal x4 extremities Neuro: alert, coherent and conversant, no focal motor deficits Outpatient Follow-Up Future Appointments Date Time Provider Department Center 06/12/2023 To Be Determined Monika Perry, PT [facility] 06/14/2023 To Be Determined Sravanthi Barroso OT [facility] 06/17/2023 9:00 AM Fredy Styles MD [id number] [facility] 06/20/2023 3:00 PM [facility] [place] [facility] [id number] [facility] 07/06/2023 9:15 AM Kelly Carrasco PA-C [id number] [facility] 09/08/2023 8:20 AM Callie Mcdonough PA-C [id number] [facility] JYOTHI Burrell documented in this encounter [facility] Work Phone: 06-12-2023 Nurse Note This nurse in when heard pt shouting at PCNA that answered light. PCNA and nurse in room. Pt yelling at and being combative, threatening, not keeping equipment or oxygen on. Pt stating she is going to leave and going to her sisters. Attempted to explain she is at the hospital- pt states she is not at the hospital. Unable to re-orient. Security called and came to room. Called and notified Dr. Snow. Per Dr. Snow give pt dilaudid and haldol. Medications given. Will continue to monitor. [facility] 06-12-2023 Nurse Note This nurse in when heard pt shouting at PCNA that answered light. PCNA and nurse in room. Pt yelling at and being combative, threatening, not keeping equipment or oxygen on. Pt stating she is going to leave and going to her sisters. Attempted to explain she is at the hospital- pt states she is not at the hospital. Unable to re-orient. Security called and came to room. Called and notified Dr. Snow. Per Dr. Snow give pt dilaudid and haldol. Medications given. Will continue to monitor. documented in this encounter [facility] Work Phone: 06-12-2023 Plan of care note Problem: Pain Goal: Turns in bed with improved pain control throughout the shift Outcome: Progressing Goal: Walks with improved pain control throughout the shift Outcome: Progressing Problem: Pain Goal: Takes deep breaths with improved pain control throughout the shift Outcome: Met Problem: Skin Goal: Prevent/manage excess moisture Outcome: Met Goal: Prevent/minimize sheer/friction injuries Outcome: Met The patient's goals for the shift include The clinical goals for the shift include Patient will ambulate around room three times this shift with walker. [facility] Work Phone: 06-12-2023 Miscellaneous Notes Problem: Pain Goal: Turns in bed with improved pain control throughout the shift Outcome: Progressing Goal: Walks with improved pain control throughout the shift Outcome: Progressing Problem: Pain Goal: Takes deep breaths with improved pain control throughout the shift Outcome: Met Problem: Skin Goal: Prevent/manage excess moisture Outcome: Met Goal: Prevent/minimize sheer/friction injuries Outcome: Met The patient's goals for the shift include The clinical goals for the shift include Patient will ambulate around room three times this shift with walker. The patient's goals for the shift include Problem: Pain Goal: Takes deep breaths with improved pain control throughout the shift Outcome: Progressing Goal: Turns in bed with improved pain control throughout the shift Outcome: Progressing Goal: Walks with improved pain control throughout the shift Outcome: Progressing Goal: Performs ADL's with improved pain control throughout shift Outcome: Progressing Goal: Participates in PT with improved pain control throughout the shift Outcome: Progressing Goal: Free from opioid side effects throughout the shift Outcome: Progressing Goal: Free from acute confusion related to pain meds throughout the shift Outcome: Progressing Problem: Skin Goal: Decreased wound size/increased tissue granulation at next dressing change Outcome: Progressing Goal: Participates in plan/prevention/treatment measures Outcome: Progressing Goal: Prevent/manage excess moisture Outcome: Progressing Goal: Prevent/minimize sheer/friction injuries Outcome: Progressing Goal: Promote/optimize nutrition Outcome: Progressing Goal: Promote skin healing Outcome: Progressing The clinical goals for the shift include Patient will ambulate around room three times this shift with walker. Over the shift, the patient did not make progress toward the following goals. Barriers to progression include left knee pain. Recommendations to address these barriers include patient is taking prn meds for pain control, as well as elevating limb and applying ice. The patient's goals for the shift include The clinical goals for the shift include Remain comfortable and pain free Pt. In bed with eyes closed for most of the shift. Respirations even and unlabored. As needed dilaudid for pain with positive effect. Expiratory wheeze present, RT aware and given neb txs several times. Bed alarm on and functioning. Call light within reach, will continue to monitor. Problem: Pain Goal: Takes deep breaths with improved pain control throughout the shift Outcome: Progressing Goal: Turns in bed with improved pain control throughout the shift Outcome: Progressing Goal: Walks with improved pain control throughout the shift Outcome: Progressing Goal: Performs ADL's with improved pain control throughout shift Outcome: Progressing Goal: Participates in PT with improved pain control throughout the shift Outcome: Progressing Goal: Free from opioid side effects throughout the shift Outcome: Progressing Goal: Free from acute confusion related to pain meds throughout the shift Outcome: Progressing Problem: Skin Goal: Decreased wound size/increased tissue granulation at next dressing change Outcome: Progressing Goal: Participates in plan/prevention/treatment measures Outcome: Progressing Goal: Prevent/manage excess moisture Outcome: Progressing Goal: Prevent/minimize sheer/friction injuries Outcome: Progressing Goal: Promote/optimize nutrition Outcome: Progressing Goal: Promote skin healing Outcome: Progressing Problem: Pain Goal: Takes deep breaths with improved pain control throughout the shift Outcome: Progressing Goal: Turns in bed with improved pain control throughout the shift Outcome: Progressing Goal: Walks with improved pain control throughout the shift Outcome: Progressing Goal: Performs ADL's with improved pain control throughout shift Outcome: Progressing Goal: Participates in PT with improved pain control throughout the shift Outcome: Progressing Goal: Free from opioid side effects throughout the shift Outcome: Progressing Goal: Free from acute confusion related to pain meds throughout the shift Outcome: Progressing The patient's goals for the shift include The clinical goals for the shift include Arthroplasty Total Knee (L) Operative Note Date: 06/10/2023 OR Location: [facility] OR Name: Janelle Pickett, : 1955, Age: 67 y.o., , Sex: female Diagnosis Pre-op Diagnosis * Arthritis of left knee [M17.12] Post-op Diagnosis * Arthritis of left knee [M17.12] Procedures Arthroplasty Total Knee 14045 - [place] ARTHRP KNE CONDYLE&PLATU MEDIAL&LAT COMPARTMENTS Surgeons * Fredy Styles - Primary Resident/Fellow/Other Branch Services Manager: Surgeon(s) and Role: Procedure Summary Anesthesia: Consult ASA: III Anesthesia Staff: Anesthesiologist: Shreyas Jorgensen MD Estimated Blood Loss: 50 mL Intra-op Medications: Administrations occurring from 1000 to 1220 on 06/10/23: Medication Name Total Dose lactated Ringer's infusion Cannot be calculated ceFAZolin in dextrose (iso-os) (Ancef) IVPB 2 g 2 g Anesthesia Record Intraprocedure I/O Totals Intake lactated Ringer's infusion 1000.00 mL Total Intake 1000 mL Output Est. Blood Loss 50 mL Total Output 50 mL Net Net Volume 950 mL Specimen: No specimens collected Staff: Textile Broker: Umu Moss RN Scrub Person: Devyn Scales Drains and/or Catheters: * None in log * Tourniquet Times: Total Tourniquet Time Documented: Thigh (Left) - 49 minutes Total: Thigh (Left) - 49 minutes Implants: Implants Type Name Action Serial No. Other SURGICAL SIMPLEX P BONE CEMENT Implanted NA Joint PATELLA, TRIATHLON, ASYMMETRIC X3, SZ-A29 9MM - [id number] Implanted Joint FEM COMP, TRIATH CR SZ4 LEFT - [id number] Implanted 10MM TRIATHLON CS TIBIAL INSERT - X3 Implanted Joint PLATE, TIBIAL TRIATH VIPUL ILA FXD BPLT P4 - [id number] Implanted Findings: Osteoarthrosis left knee Indications: Janelle Pickett is an 67 y.o. female who is having surgery for Arthritis of left knee [M17.12]. The patient was seen in the preoperative area. The risks, benefits, complications, treatment options, non-operative alternatives, expected recovery and outcomes were discussed with the patient. The possibilities of reaction to medication, pulmonary aspiration, injury to surrounding structures, bleeding, recurrent infection, the need for additional procedures, failure to diagnose a condition, and creating a complication requiring transfusion or operation were discussed with the patient. The patient concurred with the proposed plan, giving informed consent. The site of surgery was properly noted/marked if necessary per policy. The patient has been actively warmed in preoperative area. Preoperative antibiotics have been ordered and given within 1 hours of incision. Venous thrombosis prophylaxis have been ordered including bilateral sequential compression devices and chemical prophylaxis Procedure Details: Indications: The patient is here for a left total knee arthroplasty. They have failed conservative treatment. Total knee arthroplasty was offered. The procedure was explained along with the risks, benefits and alternatives being reviewed. Potential risks including but not limited to: Infection, neurovascular complication, loosening, wear, DVT, instability as well as the potential need for reoperation and/or revision surgery were all discussed with the patient and they consented to the procedure. Components: Gilliam Triathlon See above implant record Operative procedure: The patient was brought to the operative suite and a spinal anesthetic was administered per the anesthesia team. The patient was then placed in the supine position. All bony prominences were well-padded. A tourniquet was placed on the left thigh proximally over web roll. A bump was placed under the hip on the operative side. The lower extremity was then sterilely prepped with ChloraPrep then sterilely draped in usual manner. The foot and leg placed in the [place]o leg herring. A timeout was performed. The patient was identified, the site and laterality confirmed as was the administration of antibiotics confirmed. Tranexamic acid was given orally prior in the holding area. I began by exsanguinating the left lower extremity and inflated the tourniquet to 250 mmHg. I then identified landmarks. I made an incision anteriorly over the knee for a standard approach for total knee arthroplasty. I used careful dissection to the subcutaneous and fatty tissues. Identified the quadriceps tendon, medial retinaculum and peritenon over the patellar tendon. I entered the knee joint by incising through the quadriceps tendon, medial retinaculum and down to the bone of the proximal tibia medial to the patellar tendon. I performed my medial release for sharply with a knife then cleaned completed this with an elevator. I undermined the soft tissues behind the patellar tendon. I then debrided the synovium from the suprapatellar pouch. I then everted the patella and brought the knee up into flexion. I debrided the meniscus partially as well as the ACL. My debrided any osteophytes along the medial femoral condyle lateral femoral condyle. I then used a drill to gain access to the femoral medullary canal. With the femoral guide set at 5 degrees of valgus I planned for 8 millimeters of distal femoral resection. The PA pinned the cutting block into place. The distal femoral cut was then made. I then brought the tibia forward. I debrided the remainder of the meniscus. Using an extra medullary tibial cutting guide was chosen with a block for a 3 degree posterior slope. I used a 2 mm stylus and measured off the most involved compartment which was medial. The cutting block was pinned into place. I then made my tibial cut. I then checked my extension gap and was satisfied with this. I then flexed the knee and using diffusion block to help establish my rotation obtained a measurement of 3 degrees. I placed the femoral sizing guide set at the appropriate external rotation and drilled for the chamfer block. The chamfer block was placed and I made my anterior, posterior and chamfer cuts. I then debrided the posterior condyles with an osteotome and mallet as well as an elevator. I checked my flexion and extension gaps. I then placed the trial tibial insert and secured this into place. I placed the femoral component. I then placed a trial insert size 9 mm. I trialed with different inserts and decided on a size 10 mm CS tibial insert. I then drilled the lugs on the femur. At that point I made my freehand patellar cut resecting approximately 1 cm of patella. This was confirmed with a caliper. I then decided on a size 29 mm patella. The PA drilled for the patellar pegs. I then placed a trial patellar button. I took the knee through range of motion and had excellent patellar tracking. I was satisfied with my stability varus and valgus stressing the at zero, 30 and 60 degrees. I was satisfied with my stability in the AP plane at 90 degrees. The trial instrumentation was removed. I then prepared the tibia in standard fashion. The cement was prepared. At that point I removed the trial tibial tray. I debrided my gutters, medially, laterally as well as posteriorly. I injected the soft tissues and periosteum with a mixture of Ropivacaine with epinephrine, clonidine and Toradol. Surgery I then thoroughly copiously irrigated the knee with pulsatile lavage. Once the cement was ready I impacted the tibial component into place. The PA and I debrided any excess cement with a Wilson elevator. Next I impacted the femoral component into place and debrided any excess cement with a Wilson elevator with the assistance of the PA. Similarly I placed the patellar button followed by the patellar clamp and. Any excess cement with a freer elevator. I placed the trial insert into place and brought the knee out into extension to allow the cement to harden. Once the cement had hardened I removed the trial tibial tray and inserted the permanent size 10 mm CS tibial insert. I took the knee through range of motion and was satisfied with my patellar tracking and tested my stability which I was satisfied with. Attention was turned to closure. I thoroughly copiously irrigated with pulsatile lavage as well as with irrisept. The quadriceps tendon medial retinaculum and proximal tibia tissues reapproximated with Ethibond suture. The PA then closed the fatty tissues with 0 Vicryl. Subcutaneous closure was with 2-0 Vicryl. The skin was closed with a Monocryl subcuticular stitch. An Aquacel dressing was applied. The physician operating room assistant was present for the entire case. Given the nature of the procedure and disease process a skilled surgical services manager was necessary for the case. The operating room assistant was necessary for retraction and helped directly facilitate completion of the surgery. A certified composites technician was at the back table managing instruments and supplies for the surgical procedure. Complications: None; patient tolerated the procedure well. Disposition: PACU - hemodynamically stable. Condition: stable Additional Details: Not applicable Attending Attestation: I performed the procedure. Fredy Styles No outpatient medications have been marked as taking for the 06/10/23 encounter (Hospital Encounter). NPO Instructions: May have sips of clear liquids until 4 hours prior to surgery, follow ERAS instructions including drinking clear carb loading drink 4 hours prior to surgery Additional Instructions: Will receive call day before surgery with arrival time documented in this encounter [facility] Work Phone: 06-11-2023 Plan of care note The patient's goals for the shift include Problem: Pain Goal: Takes deep breaths with improved pain control throughout the shift Outcome: Progressing Goal: Turns in bed with improved pain control throughout the shift Outcome: Progressing Goal: Walks with improved pain control throughout the shift Outcome: Progressing Goal: Performs ADL's with improved pain control throughout shift Outcome: Progressing Goal: Participates in PT with improved pain control throughout the shift Outcome: Progressing Goal: Free from opioid side effects throughout the shift Outcome: Progressing Goal: Free from acute confusion related to pain meds throughout the shift Outcome: Progressing Problem: Skin Goal: Decreased wound size/increased tissue granulation at next dressing change Outcome: Progressing Goal: Participates in plan/prevention/treatment measures Outcome: Progressing Goal: Prevent/manage excess moisture Outcome: Progressing Goal: Prevent/minimize sheer/friction injuries Outcome: Progressing Goal: Promote/optimize nutrition Outcome: Progressing Goal: Promote skin healing Outcome: Progressing The clinical goals for the shift include Patient will ambulate around room three times this shift with walker. Over the shift, the patient did not make progress toward the following goals. Barriers to progression include left knee pain. Recommendations to address these barriers include patient is taking prn meds for pain control, as well as elevating limb and applying ice. [facility] 06-11-2023 Consult note Formatting of th is note is different from the original. Consults Reason For Consult Medical management History Of Present Illness Janelle Pickett is a 67 y.o. female presenting after left total knee arthroplasty due to severe arthritis and medicine team consulted for medical management. Patient resting in bed comfortably denies any nausea vomiting or chest pain or cough or fever chills. Currently on nasal cannula 2 L, no home oxygen. She was given perioperative IV antibiotics during the procedure. No bleeding. Currently hemodynamically stable maintaining vital saturations. Denies any sweating tremors nervousness or palpitations. Denies any back pain flank pain hematuria or dysuria. Hyperglycemia noted. Denies any headache or focal weakness. No URI symptoms. No runny nose sore throat sinus or nasal congestion. No ear pain pressure fullness discharge. No joint pains or skin rash otherwise. Past Medical History She has a past medical history of Anxiety, Cirrhosis (CMS/HCC), COPD (chronic obstructive pulmonary disease) (CMS/HCC), Depression, Diabetes mellitus (CMS/HCC), Fall (04/01/2022), GERD (gastroesophageal reflux disease), H/O mammogram (2021), Hyperlipidemia, Hypertension, Hypothyroidism, Influenza vaccination declined (11/2021), and Pap smear for cervical cancer screening (02/2022). She has no past medical history of Acromioclavicular separation. Surgical History She has a past surgical history that includes Colonoscopy (2020); Other surgical history (Bilateral); Other surgical history (12/25/2021); Oophorectomy (10/30/1999); and IR injection epidural steroid (N/A, 06/03/2023). Social History She reports that she has been smoking cigarettes. She has been smoking an average of .5 packs per day. She has been exposed to tobacco smoke. She has never used smokeless tobacco. She reports that she does not currently use alcohol. She reports that she does not use drugs. Family History Family History Problem Relation Name Age of Onset Aneurysm Mother Edema Father 1970 Other (MALIGNANT NEOPLASM) Brother Cancer Father's Sister 2-3 AUNTS ON FATHER SIDE Allergies Gemfibrozil Review of Systems 10 systems were reviewed and were negative except for those noted in the history of present illness. Physical Exam General Appearance: AAO x 3, not in acute distress Skin: skin color pink, warm, and dry; no suspicious rashes or lesions Eyes : PERRL, EOM's intact ENT: mucous membranes pink and moist Neck: normocephalic Respiratory: Coarse sounds in upper lobes Heart: regular rate and rhythm. Abdomen: Nondistended, positive bowel sounds x4, soft, nontender Extremities: no edema Peripheral pulses: normal x4 extremities Neuro: alert, coherent and conversant, no focal motor deficits, restricted range of motion in left lower extremity with knee dressing in place and tenderness Last Recorded Vitals BP 173/70 (BP Location: Right arm, Patient Position: Lying) Pulse 68 Temp 36.4 C (97.6 F) (Temporal) Resp 20 Wt 104 kg (228 lb 13.4 oz) SpO2 97% Relevant Results Results for orders placed or performed during the hospital encounter of 06/10/23 (from the past 24 hour(s)) POCT GLUCOSE Result Value Ref Range POCT Glucose 295 (H) 74 - 99 mg/dL POCT GLUCOSE Result Value Ref Range POCT Glucose 314 (H) 74 - 99 mg/dL CBC Result Value Ref Range WBC 10.7 4.4 - 11.3 x10*3/uL nRBC 0.0 0.0 - 0.0 /100 WBCs RBC 3.80 (L) 4.00 - 5.20 x10*6/uL Hemoglobin 11.4 (L) 12.0 - 16.0 g/dL Hematocrit 35.2 (L) 36.0 - 46.0 % MCV 93 80 - 100 fL MCH 30.0 26.0 - 34.0 pg MCHC 32.4 32.0 - 36.0 g/dL RDW 13.6 11.5 - 14.5 % Platelets 117 (L) 150 - 450 x10*3/uL Basic metabolic panel Result Value Ref Range Glucose 333 (H) 74 - 99 mg/dL Sodium 129 (L) 136 - 145 mmol/L Potassium 5.8 (H) 3.5 - 5.3 mmol/L Chloride 97 (L) 98 - 107 mmol/L Bicarbonate 28 21 - 32 mmol/L Anion Gap 10 10 - 20 mmol/L Urea Nitrogen 14 6 - 23 mg/dL Creatinine 1.30 (H) 0.50 - 1.05 mg/dL eGFR 45 (L) >60 mL/min/1.73m*2 Calcium 7.5 (L) 8.6 - 10.3 mg/dL POCT GLUCOSE Result Value Ref Range POCT Glucose 271 (H) 74 - 99 mg/dL Scheduled medications acetaminophen, 650 mg, oral, q6h ROGER aspirin, 81 mg, oral, BID atorvastatin, 20 mg, oral, Daily budesonide, 0.5 mg, nebulization, BID cyanocobalamin, 1,000 mcg, oral, Every other day docusate sodium, 100 mg, oral, BID DULoxetine, 20 mg, oral, Daily escitalopram, 20 mg, oral, Daily formoterol, 20 mcg, nebulization, BID gabapentin, 300 mg, oral, TID insulin glargine, 42 Units, subcutaneous, BID insulin lispro, 0-10 Units, subcutaneous, TID with meals levothyroxine, 50 mcg, oral, Daily magnesium oxide, 400 mg, oral, TID metoprolol tartrate, 50 mg, oral, BID montelukast, 10 mg, oral, Nightly nystatin, , Topical, BID pantoprazole, 40 mg, oral, Daily before breakfast [Held by provider] sertraline, 50 mg, oral, Daily tiotropium, 1 capsule, inhalation, Daily traZODone, 100 mg, oral, Nightly Continuous medications oxygen, 2 L/min sodium chloride 0.9%, 75 mL/hr, Last Rate: 75 mL/hr (06/11/23 0913) PRN medications PRN medications: albuterol, benzocaine-menthol, bisacodyl, dextrose 10 % in water (D10W), dextrose 10 % in water (D10W), dextrose, dextrose, dicyclomine, diphenhydrAMINE, glucagon, glucagon, HYDROmorphone, ipratropium-albuteroL, naloxone, ondansetron ODT OR ondansetron, oxyCODONE, oxyCODONE, oxygen, tiZANidine Assessment/Plan 67-year-old female with severe arthritis status post left total knee arthroplasty, also L5-S1 interlaminar epidural steroid injection with fluoroscopic guidance for back pain Patient has history of Arthritis of left knee COPD Asthma Depression Cirrhosis Anxiety Hypertension Hyperlipidemia Hypothyroidism Active Problems: Primary osteoarthritis of left knee Asthma Hyperkalemia Hyperglycemia MOLLY Plan Currently on nasal cannula 2 L, no home oxygen, wean oxygen as tolerated to keep sats above 92%. Unable to wean off oxygen, chest x-ray ordered. If kidney function does not improve by tomorrow morning consider consulting nephrology Follow vitals and daily CBC BMP, monitor urine output LR discontinued, started on normal saline 75 MLS per hour Will recheck renal function panel at 1 PM Monitor blood sugar sliding scale Lantus Carb controlled diet Pain management per Ortho team Antiemetics Zofran as needed Kayexalate given for serum potassium 5.8, had no bowel movements, potassium is down to 5.4 Neb treatments as needed Incentive spirometry PT OT PPI for GI prophylaxis On Synthroid for hypothyroidism Metoprolol 50 mg p.o. daily for hypertension Statins for hyperlipidemia Trazodone for depression and insomnia Monitor electrolytes Multivitamin nutrition Full code On aspirin 81 mg twice daily for DVT prophylaxis per Ortho Will continue to monitor clinically and manage accordingly, patient is not medically cleared for discharge JYOTHI John [facility] Work Phone: 06-11-2023 Consult note Formatting of th is note is different from the original. Consults Reason For Consult Medical management History Of Present Illness Janelle Pickett is a 67 y.o. female presenting after left total knee arthroplasty due to severe arthritis and medicine team consulted for medical management. Patient resting in bed comfortably denies any nausea vomiting or chest pain or cough or fever chills. Currently on nasal cannula 2 L, no home oxygen. She was given perioperative IV antibiotics during the procedure. No bleeding. Currently hemodynamically stable maintaining vital saturations. Denies any sweating tremors nervousness or palpitations. Denies any back pain flank pain hematuria or dysuria. Hyperglycemia noted. Denies any headache or focal weakness. No URI symptoms. No runny nose sore throat sinus or nasal congestion. No ear pain pressure fullness discharge. No joint pains or skin rash otherwise. Past Medical History She has a past medical history of Anxiety, Cirrhosis ([facility]), COPD (chronic obstructive pulmonary disease) ([facility]), Depression, Diabetes mellitus ([facility]), Fall (04/01/2022), GERD (gastroesophageal reflux disease), H/O mammogram (2021), Hyperlipidemia, Hypertension, Hypothyroidism, Influenza vaccination declined (11/2021), and Pap smear for cervical cancer screening (02/2022). She has no past medical history of Acromioclavicular separation. Surgical History She has a past surgical history that includes Colonoscopy (2020); Other surgical history (Bilateral); Other surgical history (12/25/2021); Oophorectomy (10/30/1999); and IR injection epidural steroid (N/A, 06/03/2023). Social History She reports that she has been smoking cigarettes. She has been smoking an average of .5 packs per day. She has been exposed to tobacco smoke. She has never used smokeless tobacco. She reports that she does not currently use alcohol. She reports that she does not use drugs. Family History Family History Problem Relation Name Age of Onset Aneurysm Mother Edema Father 1970 Other (MALIGNANT NEOPLASM) Brother Cancer Father's Sister 2-3 AUNTS ON FATHER SIDE Allergies Gemfibrozil Review of Systems 10 systems were reviewed and were negative except for those noted in the history of present illness. Physical Exam General Appearance: AAO x 3, not in acute distress Skin: skin color pink, warm, and dry; no suspicious rashes or lesions Eyes : PERRL, EOM's intact ENT: mucous membranes pink and moist Neck: normocephalic Respiratory: Coarse sounds in upper lobes Heart: regular rate and rhythm. Abdomen: Nondistended, positive bowel sounds x4, soft, nontender Extremities: no edema Peripheral pulses: normal x4 extremities Neuro: alert, coherent and conversant, no focal motor deficits, restricted range of motion in left lower extremity with knee dressing in place and tenderness Last Recorded Vitals BP 173/70 (BP Location: Right arm, Patient Position: Lying) Pulse 68 Temp 36.4 C (97.6 F) (Temporal) Resp 20 Wt 104 kg (228 lb 13.4 oz) SpO2 97% Relevant Results Results for orders placed or performed during the hospital encounter of 06/10/23 (from the past 24 hour(s)) POCT GLUCOSE Result Value Ref Range POCT Glucose 295 (H) 74 - 99 mg/dL POCT GLUCOSE Result Value Ref Range POCT Glucose 314 (H) 74 - 99 mg/dL CBC Result Value Ref Range WBC 10.7 4.4 - 11.3 x10*3/uL nRBC 0.0 0.0 - 0.0 /100 WBCs RBC 3.80 (L) 4.00 - 5.20 x10*6/uL Hemoglobin 11.4 (L) 12.0 - 16.0 g/dL Hematocrit 35.2 (L) 36.0 - 46.0 % MCV 93 80 - 100 fL MCH 30.0 26.0 - 34.0 pg MCHC 32.4 32.0 - 36.0 g/dL RDW 13.6 11.5 - 14.5 % Platelets 117 (L) 150 - 450 x10*3/uL Basic metabolic panel Result Value Ref Range Glucose 333 (H) 74 - 99 mg/dL Sodium 129 (L) 136 - 145 mmol/L Potassium 5.8 (H) 3.5 - 5.3 mmol/L Chloride 97 (L) 98 - 107 mmol/L Bicarbonate 28 21 - 32 mmol/L Anion Gap 10 10 - 20 mmol/L Urea Nitrogen 14 6 - 23 mg/dL Creatinine 1.30 (H) 0.50 - 1.05 mg/dL eGFR 45 (L) >60 mL/min/1.73m*2 Calcium 7.5 (L) 8.6 - 10.3 mg/dL POCT GLUCOSE Result Value Ref Range POCT Glucose 271 (H) 74 - 99 mg/dL Scheduled medications acetaminophen, 650 mg, oral, q6h ROGER aspirin, 81 mg, oral, BID atorvastatin, 20 mg, oral, Daily budesonide, 0.5 mg, nebulization, BID cyanocobalamin, 1,000 mcg, oral, Every other day docusate sodium, 100 mg, oral, BID DULoxetine, 20 mg, oral, Daily escitalopram, 20 mg, oral, Daily formoterol, 20 mcg, nebulization, BID gabapentin, 300 mg, oral, TID insulin glargine, 42 Units, subcutaneous, BID insulin lispro, 0-10 Units, subcutaneous, TID with meals levothyroxine, 50 mcg, oral, Daily magnesium oxide, 400 mg, oral, TID metoprolol tartrate, 50 mg, oral, BID montelukast, 10 mg, oral, Nightly nystatin, , Topical, BID pantoprazole, 40 mg, oral, Daily before breakfast [Held by provider] sertraline, 50 mg, oral, Daily tiotropium, 1 capsule, inhalation, Daily traZODone, 100 mg, oral, Nightly Continuous medications oxygen, 2 L/min sodium chloride 0.9%, 75 mL/hr, Last Rate: 75 mL/hr (06/11/23912) PRN medications PRN medications: albuterol, benzocaine-menthol, bisacodyl, dextrose 10 % in water (D10W), dextrose 10 % in water (D10W), dextrose, dextrose, dicyclomine, diphenhydrAMINE, glucagon, glucagon, HYDROmorphone, ipratropium-albuteroL, naloxone, ondansetron ODT OR ondansetron, oxyCODONE, oxyCODONE, oxygen, tiZANidine Assessment/Plan 67-year-old female with severe arthritis status post left total knee arthroplasty, also L5-S1 interlaminar epidural steroid injection with fluoroscopic guidance for back pain Patient has history of Arthritis of left knee COPD Asthma Depression Cirrhosis Anxiety Hypertension Hyperlipidemia Hypothyroidism Active Problems: Primary osteoarthritis of left knee Asthma Hyperkalemia Hyperglycemia MOLLY Plan Currently on nasal cannula 2 L, no home oxygen, wean oxygen as tolerated to keep sats above 92%. Unable to wean off oxygen, chest x-ray ordered. If kidney function does not improve by tomorrow morning consider consulting nephrology Follow vitals and daily CBC BMP, monitor urine output LR discontinued, started on normal saline 75 MLS per hour Will recheck renal function panel at 1 PM Monitor blood sugar sliding scale Lantus Carb controlled diet Pain management per Ortho team Antiemetics Zofran as needed Kayexalate given for serum potassium 5.8, had no bowel movements, potassium is down to 5.4 Neb treatments as needed Incentive spirometry PT OT PPI for GI prophylaxis On Synthroid for hypothyroidism Metoprolol 50 mg p.o. daily for hypertension Statins for hyperlipidemia Trazodone for depression and insomnia Monitor electrolytes Multivitamin nutrition Full code On aspirin 81 mg twice daily for DVT prophylaxis per Ortho Will continue to monitor clinically and manage accordingly, patient is not medically cleared for discharge JYOTHI John documented in this encounter [facility] Work Phone: 06-11-2023 Plan of care note The patient's goals for the shift include The clinical goals for the shift include Remain comfortable and pain free Pt. In bed with eyes closed for most of the shift. Respirations even and unlabored. As needed dilaudid for pain with positive effect. Expiratory wheeze present, RT aware and given neb txs several times. Bed alarm on and functioning. Call light within reach, will continue to monitor. Problem: Pain Goal: Takes deep breaths with improved pain control throughout the shift Outcome: Progressing Goal: Turns in bed with improved pain control throughout the shift Outcome: Progressing Goal: Walks with improved pain control throughout the shift Outcome: Progressing Goal: Performs ADL's with improved pain control throughout shift Outcome: Progressing Goal: Participates in PT with improved pain control throughout the shift Outcome: Progressing Goal: Free from opioid side effects throughout the shift Outcome: Progressing Goal: Free from acute confusion related to pain meds throughout the shift Outcome: Progressing Problem: Skin Goal: Decreased wound size/increased tissue granulation at next dressing change Outcome: Progressing Goal: Participates in plan/prevention/treatment measures Outcome: Progressing Goal: Prevent/manage excess moisture Outcome: Progressing Goal: Prevent/minimize sheer/friction injuries Outcome: Progressing Goal: Promote/optimize nutrition Outcome: Progressing Goal: Promote skin healing Outcome: Progressing [facility] 06-10-2023 History and physical note History Of Present Illness Janelle Pickett is a 67 y.o. female presenting after left total knee arthroplasty due to severe arthritis and medicine team consulted for medical management. Patient resting in bed comfortably denies any nausea vomiting or chest pain or cough or fever chills. Complain of slight shortness of breath and is on 2 L oxygen via nasal Cannula. She has 7/10 pain in left knee after surgery and receiving narcotics IV appropriately. She was given perioperative IV antibiotics during the procedure. No bleeding. Currently hemodynamically stable maintaining vital saturations. Denies any sweating tremors nervousness or palpitations. Denies any back pain flank pain hematuria or dysuria. Hyperglycemia noted. Denies any headache or focal weakness. No URI symptoms. No runny nose sore throat sinus or nasal congestion. No ear pain pressure fullness discharge. No joint pains or skin rash otherwise. Past Medical History Past Medical History: Diagnosis Date Anxiety Cirrhosis ([facility]) COPD (chronic obstructive pulmonary disease) ([facility]) Depression Diabetes mellitus ([facility]) Fall 04/01/2022 Comment on above: FALL GERD (gastroesophageal reflux disease) H/O mammogram 2021 2021-NORMAL- [facility] Hyperlipidemia Hypertension Hypothyroidism Influenza vaccination declined 11/2021 Pap smear for cervical cancer screening 02/2022- NORMAL- DONE AT [address] [place] [address] Surgical History Past Surgical History: Procedure Laterality Date COLONOSCOPY 2020 [facility] - NORMAL REPEAT IN 10 YEARS IR INJECTION EPIDURAL STEROID N/A 06/03/2023 L5-S1 JOSE OOPHORECTOMY 10/30/1999 OTHER SURGICAL HISTORY Bilateral MEDIAL BRANCH BLOCK - PETEY BLANCHARD (PAIN MANAGEMENT) BILAT- L4-S1 MBB OTHER SURGICAL HISTORY 12/25/2021 Medial branch block Social History She reports that she has been smoking cigarettes. She has been smoking an average of .5 packs per day. She has been exposed to tobacco smoke. She has never used smokeless tobacco. She reports that she does not currently use alcohol. She reports that she does not use drugs. Half a pack per day since the age of 16 per the patient Family History Family History Problem Relation Name Age of Onset Aneurysm Mother Edema Father 1970 Other (MALIGNANT NEOPLASM) Brother Cancer Father's Sister 2-3 AUNTS ON FATHER SIDE Allergies Gemfibrozil Review of Systems All other 12 point review of systems negative except HPI Physical Exam General Appearance: AAO x 3, not in acute distress Skin: skin color pink, warm, and dry; no suspicious rashes or lesions Eyes : PERRL, EOM's intact ENT: mucous membranes pink and moist Neck: normocephalic Respiratory: Coarse sounds in upper lobes Heart: regular rate and rhythm. Abdomen: Nondistended, positive bowel sounds x4, soft, nontender Extremities: no edema Peripheral pulses: normal x4 extremities Neuro: alert, coherent and conversant, no focal motor deficits, restricted range of motion in left lower extremity with knee dressing in place and tenderness Last Recorded Vitals Blood pressure 129/67, pulse 55, temperature 35.7 C (96.3 F), temperature source Temporal, resp. rate 20, height 1.58 m (5' 2.21 ), weight 104 kg (228 lb 13.4 oz), SpO2 97 %. Relevant Results Scheduled medications acetaminophen, 650 mg, oral, q6h ROGER aspirin, 81 mg, oral, BID atorvastatin, 20 mg, oral, Daily budesonide, 0.5 mg, nebulization, BID ceFAZolin, 2 g, intravenous, q8h [START ON 06/11/2023] cyanocobalamin, 1,000 mcg, oral, Every other day docusate sodium, 100 mg, oral, BID DULoxetine, 20 mg, oral, Daily escitalopram, 20 mg, oral, Daily formoterol, 20 mcg, nebulization, BID gabapentin, 600 mg, oral, TID insulin glargine, 40 Units, subcutaneous, BID [START ON 06/11/2023] insulin lispro, 0-5 Units, subcutaneous, TID with meals levothyroxine, 50 mcg, oral, Daily magnesium oxide, 400 mg, oral, TID metoprolol tartrate, 50 mg, oral, BID montelukast, 10 mg, oral, Nightly nystatin, , Topical, BID [START ON 06/11/2023] pantoprazole, 40 mg, oral, Daily before breakfast potassium chloride CR, 10 mEq, oral, Daily [Held by provider] sertraline, 50 mg, oral, Daily [START ON 06/11/2023] tiotropium, 1 capsule, inhalation, Daily [START ON 06/11/2023] tranexamic acid, 1,950 mg, oral, Once traZODone, 100 mg, oral, Nightly Continuous medications lactated Ringer's, 75 mL/hr, Last Rate: Stopped (06/10/23 1317) lactated Ringer's, 75 mL/hr, Last Rate: 75 mL/hr (06/10/23 1533) oxygen, 2 L/min sodium chloride 0.9%, 100 mL/hr PRN medications PRN medications: albuterol, benzocaine-menthol, bisacodyl, dextrose 10 % in water (D10W), dextrose 10 % in water (D10W), dextrose, dextrose, dicyclomine, diphenhydrAMINE, glucagon, glucagon, HYDROmorphone, ipratropium-albuteroL, naloxone, ondansetron ODT OR ondansetron, oxyCODONE, oxyCODONE, oxygen, tiZANidine No results found. Results for orders placed or performed during the hospital encounter of 06/10/23 (from the past 24 hour(s)) POCT GLUCOSE Result Value Ref Range POCT Glucose 268 (H) 74 - 99 mg/dL VERIFY ABO/Rh Group Test Result Value Ref Range ABO TYPE O Rh TYPE POS POCT GLUCOSE Result Value Ref Range POCT Glucose 295 (H) 74 - 99 mg/dL Assessment/Plan Principal Problem: Arthritis of left knee Active Problems: Primary osteoarthritis of left knee Asthma 67-year-old female with severe arthritis status post left total knee arthroplasty, also L5-S1 interlaminar epidural steroid injection with fluoroscopic guidance for back pain Patient has history of COPD Depression Cirrhosis Anxiety Hypertension Hyperlipidemia Hypothyroidism Medicine consulted for medical management Plan Follow vitals and daily CBC BMP, monitor urine output Monitor fingerstick and resume Lantus 40 units subcu twice daily confirmed by patient and insulin sliding scale Carb controlled diet Pain management on Dilaudid 0.5 mg IV every 4 hours as needed for breakthrough pain, Oxycodone 10 mg every 4 hours as needed for severe pain Oxycodone 5 mg every 4 hours as needed for moderate pain Zanaflex for muscle spasms Antiemetics Zofran as needed Bentyl for spasmodic pain Supportive care symptomatic management Education counseling Neb treatments as needed Incentive spirometry PT OT PPI for GI prophylaxis On Synthroid for hypothyroidism Metoprolol 50 mg p.o. daily for hypertension Replete electrolytes as needed Multivitamin nutrition On aspirin 81 mg twice daily for DVT prophylaxis per Ortho Tylenol for mild pain Statins for hyperlipidemia On magnesium Trazodone for depression and insomnia Hydrate with lactated Ringer's at 75 cc/h Will continue to monitor clinically and manage accordingly Thank you for allowing us to participate in care of this pleasant patient Jasmyne Soliz MD [facility] Work Phone: 06-10-2023 History and physical note History Of Present Illness Janelle Pickett is a 67 y.o. female presenting after left total knee arthroplasty due to severe arthritis and medicine team consulted for medical management. Patient resting in bed comfortably denies any nausea vomiting or chest pain or cough or fever chills. Complain of slight shortness of breath and is on 2 L oxygen via nasal Cannula. She has 7/10 pain in left knee after surgery and receiving narcotics IV appropriately. She was given perioperative IV antibiotics during the procedure. No bleeding. Currently hemodynamically stable maintaining vital saturations. Denies any sweating tremors nervousness or palpitations. Denies any back pain flank pain hematuria or dysuria. Hyperglycemia noted. Denies any headache or focal weakness. No URI symptoms. No runny nose sore throat sinus or nasal congestion. No ear pain pressure fullness discharge. No joint pains or skin rash otherwise. Past Medical History Past Medical History: Diagnosis Date Anxiety Cirrhosis (CMS/HCC) COPD (chronic obstructive pulmonary disease) (CMS/HCC) Depression Diabetes mellitus (CMS/HCC) Fall 04/01/2022 Comment on above: FALL GERD (gastroesophageal reflux disease) H/O mammogram 2021 2021-NORMAL- [facility] Hyperlipidemia Hypertension Hypothyroidism Influenza vaccination declined 11/2021 Pap smear for cervical cancer screening 02/2022- NORMAL- DONE AT [address] [place] [address] Surgical History Past Surgical History: Procedure Laterality Date COLONOSCOPY 2020 [facility] - NORMAL REPEAT IN 10 YEARS IR INJECTION EPIDURAL STEROID N/A 06/03/2023 L5-S1 JOSE OOPHORECTOMY 10/30/1999 OTHER SURGICAL HISTORY Bilateral MEDIAL BRANCH BLOCK - PETEY BLANCHARD (PAIN MANAGEMENT) BILAT- L4-S1 MBB OTHER SURGICAL HISTORY 12/25/2021 Medial branch block Social History She reports that she has been smoking cigarettes. She has been smoking an average of .5 packs per day. She has been exposed to tobacco smoke. She has never used smokeless tobacco. She reports that she does not currently use alcohol. She reports that she does not use drugs. Half a pack per day since the age of 16 per the patient Family History Family History Problem Relation Name Age of Onset Aneurysm Mother Edema Father 1969 Other (MALIGNANT NEOPLASM) Brother Cancer Father's Sister 2-3 AUNTS ON FATHER SIDE Allergies Gemfibrozil Review of Systems All other 12 point review of systems negative except HPI Physical Exam General Appearance: AAO x 3, not in acute distress Skin: skin color pink, warm, and dry; no suspicious rashes or lesions Eyes : PERRL, EOM's intact ENT: mucous membranes pink and moist Neck: normocephalic Respiratory: Coarse sounds in upper lobes Heart: regular rate and rhythm. Abdomen: Nondistended, positive bowel sounds x4, soft, nontender Extremities: no edema Peripheral pulses: normal x4 extremities Neuro: alert, coherent and conversant, no focal motor deficits, restricted range of motion in left lower extremity with knee dressing in place and tenderness Last Recorded Vitals Blood pressure 129/67, pulse 55, temperature 35.7 C (96.3 F), temperature source Temporal, resp. rate 20, height 1.58 m (5' 2.21 ), weight 104 kg (228 lb 13.4 oz), SpO2 97 %. Relevant Results Scheduled medications acetaminophen, 650 mg, oral, q6h ROGER aspirin, 81 mg, oral, BID atorvastatin, 20 mg, oral, Daily budesonide, 0.5 mg, nebulization, BID ceFAZolin, 2 g, intravenous, q8h [START ON 06/11/2023] cyanocobalamin, 1,000 mcg, oral, Every other day docusate sodium, 100 mg, oral, BID DULoxetine, 20 mg, oral, Daily escitalopram, 20 mg, oral, Daily formoterol, 20 mcg, nebulization, BID gabapentin, 600 mg, oral, TID insulin glargine, 40 Units, subcutaneous, BID [START ON 06/11/2023] insulin lispro, 0-5 Units, subcutaneous, TID with meals levothyroxine, 50 mcg, oral, Daily magnesium oxide, 400 mg, oral, TID metoprolol tartrate, 50 mg, oral, BID montelukast, 10 mg, oral, Nightly nystatin, , Topical, BID [START ON 06/11/2023] pantoprazole, 40 mg, oral, Daily before breakfast potassium chloride CR, 10 mEq, oral, Daily [Held by provider] sertraline, 50 mg, oral, Daily [START ON 06/11/2023] tiotropium, 1 capsule, inhalation, Daily [START ON 06/11/2023] tranexamic acid, 1,950 mg, oral, Once traZODone, 100 mg, oral, Nightly Continuous medications lactated Ringer's, 75 mL/hr, Last Rate: Stopped (06/10/23 1317) lactated Ringer's, 75 mL/hr, Last Rate: 75 mL/hr (06/10/23 1533) oxygen, 2 L/min sodium chloride 0.9%, 100 mL/hr PRN medications PRN medications: albuterol, benzocaine-menthol, bisacodyl, dextrose 10 % in water (D10W), dextrose 10 % in water (D10W), dextrose, dextrose, dicyclomine, diphenhydrAMINE, glucagon, glucagon, HYDROmorphone, ipratropium-albuteroL, naloxone, ondansetron ODT OR ondansetron, oxyCODONE, oxyCODONE, oxygen, tiZANidine No results found. Results for orders placed or performed during the hospital encounter of 06/10/23 (from the past 24 hour(s)) POCT GLUCOSE Result Value Ref Range POCT Glucose 268 (H) 74 - 99 mg/dL VERIFY ABO/Rh Group Test Result Value Ref Range ABO TYPE O Rh TYPE POS POCT GLUCOSE Result Value Ref Range POCT Glucose 295 (H) 74 - 99 mg/dL Assessment/Plan Principal Problem: Arthritis of left knee Active Problems: Primary osteoarthritis of left knee Asthma 67-year-old female with severe arthritis status post left total knee arthroplasty, also L5-S1 interlaminar epidural steroid injection with fluoroscopic guidance for back pain Patient has history of COPD Depression Cirrhosis Anxiety Hypertension Hyperlipidemia Hypothyroidism Medicine consulted for medical management Plan Follow vitals and daily CBC BMP, monitor urine output Monitor fingerstick and resume Lantus 40 units subcu twice daily confirmed by patient and insulin sliding scale Carb controlled diet Pain management on Dilaudid 0.5 mg IV every 4 hours as needed for breakthrough pain, Oxycodone 10 mg every 4 hours as needed for severe pain Oxycodone 5 mg every 4 hours as needed for moderate pain Zanaflex for muscle spasms Antiemetics Zofran as needed Bentyl for spasmodic pain Supportive care symptomatic management Education counseling Neb treatments as needed Incentive spirometry PT OT PPI for GI prophylaxis On Synthroid for hypothyroidism Metoprolol 50 mg p.o. daily for hypertension Replete electrolytes as needed Multivitamin nutrition On aspirin 81 mg twice daily for DVT prophylaxis per Ortho Tylenol for mild pain Statins for hyperlipidemia On magnesium Trazodone for depression and insomnia Hydrate with lactated Ringer's at 75 cc/h Will continue to monitor clinically and manage accordingly Thank you for allowing us to participate in care of this pleasant patient Jasmyne Soliz MD Interval History and Physical I have interviewed and examined the patient and reviewed the recent History and Physical. There have been no changes to the recent H&P documentation. The patient understands the planned operation and its associated risks and benefits and agrees to proceed. The surgical consent form has been signed. Visit Vitals BP 152/72 (BP Location: Right arm, Patient Position: Sitting) Pulse 61 Temp 36.4 C (97.5 F) (Temporal) Resp 26 Fredy Styles MD Source Note - Barney Prieto MD - 06/03/2023 11:40 AM EST History Of Present Illness Janelle Pickett is a 67 y.o. female presenting with low back pain and bilateral leg pain with bilateral foraminal stenosis noted at the L5-S1 level on her previous lumbar MRI.. Past Medical History Past Medical History: Diagnosis Date Fall 04/01/2022 Comment on above: FALL H/O mammogram 2021 2021-NORMAL- [facility] Influenza vaccination declined 11/2021 Pap smear for cervical cancer screening 02/2022- NORMAL- DONE AT [address] [place] [address] Surgical History Past Surgical History: Procedure Laterality Date COLONOSCOPY 2020 [facility] - NORMAL REPEAT IN 10 YEARS OOPHORECTOMY 10/30/1999 OTHER SURGICAL HISTORY Bilateral MEDIAL BRANCH BLOCK - PETEY BLANCHARD (PAIN MANAGEMENT) BILAT- L4-S1 MBB OTHER SURGICAL HISTORY 12/25/2021 Medial branch block Social History She reports that she has been smoking cigarettes. She has been smoking an average of .5 packs per day. She has been exposed to tobacco smoke. She has never used smokeless tobacco. She reports that she does not currently use alcohol. She reports that she does not use drugs. Family History Family History Problem Relation Name Age of Onset Aneurysm Mother Edema Father 1970 Other (MALIGNANT NEOPLASM) Brother Cancer Father's Sister 2-3 AUNTS ON FATHER SIDE Allergies Gemfibrozil Review of Systems Constitutional: Negative. HENT: Negative. Eyes: Negative. Respiratory: Negative for cough, shortness of breath and wheezing. Cardiovascular: Negative for chest pain, palpitations and leg swelling. Endocrine: Negative. Genitourinary: Negative. Musculoskeletal: Positive for back pain and myalgias. Negative for arthralgias. Skin: Negative. Allergic/Immunologic: Negative. Neurological: Negative for facial asymmetry, weakness and light-headedness. Hematological: Negative for adenopathy. Does not bruise/bleed easily. Psychiatric/Behavioral: Negative for dysphoric mood and suicidal ideas. Physical Exam Constitutional: General: She is not in acute distress. Appearance: Normal appearance. HENT: Head: Normocephalic. Mouth/Throat: Mouth: Mucous membranes are moist. Eyes: Extraocular Movements: Extraocular movements intact. Cardiovascular: Rate and Rhythm: Normal rate and regular rhythm. Pulses: Normal pulses. Heart sounds: Normal heart sounds. No murmur heard. No friction rub. No gallop. Pulmonary: Effort: Pulmonary effort is normal. Breath sounds: Normal breath sounds. No wheezing, rhonchi or rales. Abdominal: General: Abdomen is flat. Palpations: Abdomen is soft. Musculoskeletal: Cervical back: Normal range of motion. Right lower leg: No edema. Left lower leg: No edema. Lymphadenopathy: Cervical: No cervical adenopathy. Skin: General: Skin is warm and dry. Neurological: General: No focal deficit present. Mental Status: She is alert and oriented to person, place, and time. Mental status is at baseline. Psychiatric: Mood and Affect: Mood normal. Behavior: Behavior normal. Last Recorded Vitals There were no vitals taken for this visit. Assessment/Plan Lumbar radiculopathy The risks and benefits of the L5-S1 interlaminar epidural steroid injection with fluoroscopy was discussed at length with the patient. The records and imaging were reviewed by me. The patient understood that there was no guarantee that the procedure will alleviate their pain. All questions were answered prior to leaving for the OR. This document was dictated and electronically signed using [employer] software. A reasonable attempt at proof reading was made to minimize errors. Please call with any questions. Barney Prieto MD documented in this encounter [facility] Work Phone: 06-10-2023 Hospital Discharge instructions Karen Ewing, 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 - 06/10/2023 6:25 PM EST Images from the original note were not included. Total Knee Replacement Discharge Instructions To prevent Clot formation, you have been placed on the following medication: ASA for 30 days started on 06/10/23 Surgical Site Care: .Change dressing once a day and PRN (as needed). Apply 4 x 4 sponge and light tape. If glue present, leave open to air. You may leave wound open to air after initial dressing removal, if wound is clean, dry and intact If Aquacel Ag dressing is present, do not remove dressing for 7 days, unless heavily saturated. If heavily saturated, remove dressing and start using instructions above Garret will be removed on post-operative day 14 and steri-strips applied Showering is permitted starting POD1 if waterproof Aquacel dressing is present or when the incision is covered with 4 x 4 and Tegaderm waterproof dressing Until all areas of incision are healed. Physical Therapy: Weight Bearing Status: WBAT Precautions, Per Physical Therapy Handout Pain Medications You were given oxycodone Wean off pain medications as you deem appropriate as long as pain is under control Cold packs/Ice packs/Machine May be used 3 times daily for 15-30 minutes as necessary Be sure to have a barrier (cloth, clothing, towel) between the site and the ice pack to prevent frostbite [facility] office if Increased redness, swelling, drainage of any kind, and/or pain to surgery site. As well as new onset fevers and or chills. These could signify an infection. Calf or thigh tenderness to touch as well as increased swelling or redness. This could signify a clot formation. Numbness or tingling to an area around the incision site or below the incision site (toes). Any rash appears, increased or new onset nausea/vomiting occur. This may indicate a reaction to a medication. . Follow up with Surgeon I acknowledge that I have received claire hose and understand the instructions on how and when to wear them (on during the day, off at night) Discharging RN who has gone over instructions and acknowledges claire hose have been received Discharge: Discharge home with [facility] Resume home meds Follow-up with PCP as needed Follow-up with Dr. Styles as scheduled Thank you for allowing [facility] to participate in your care. Return to the ER if symptoms worsen documented in this encounter [facility] Work Phone: 06-10-2023 Plan of care note Problem: Pain Goal: Takes deep breaths with improved pain control throughout the shift Outcome: Progressing Goal: Turns in bed with improved pain control throughout the shift Outcome: Progressing Goal: Walks with improved pain control throughout the shift Outcome: Progressing Goal: Performs ADL's with improved pain control throughout shift Outcome: Progressing Goal: Participates in PT with improved pain control throughout the shift Outcome: Progressing Goal: Free from opioid side effects throughout the shift Outcome: Progressing Goal: Free from acute confusion related to pain meds throughout the shift Outcome: Progressing The patient's goals for the shift include The clinical goals for the shift include [facility] Work Phone: 06-10-2023 Note Formatting of this n ote is different from the original. Arthroplasty Total Knee (L) Operative Note Date: 06/10/2023 OR Location: [facility] OR Name: Janelle Pickett, : 1955, Age: 67 y.o., , Sex: female Diagnosis Pre-op Diagnosis * Arthritis of left knee [M17.12] Post-op Diagnosis * Arthritis of left knee [M17.12] Procedures Arthroplasty Total Knee 26941 - [place] ARTHRP KNE CONDYLE&PLATU MEDIAL&LAT COMPARTMENTS Surgeons * Fredy Styles - Primary Resident/Fellow/Other Branch Services Manager: Surgeon(s) and Role: Procedure Summary Anesthesia: Consult ASA: III Anesthesia Staff: Anesthesiologist: Shreyas Jorgensen MD Estimated Blood Loss: 50 mL Intra-op Medications: Administrations occurring from 1000 to 1220 on 06/10/23: Medication Name Total Dose lactated Ringer's infusion Cannot be calculated ceFAZolin in dextrose (iso-os) (Ancef) IVPB 2 g 2 g Anesthesia Record Intraprocedure I/O Totals Intake lactated Ringer's infusion 1000.00 mL Total Intake 1000 mL Output Est. Blood Loss 50 mL Total Output 50 mL Net Net Volume 950 mL Specimen: No specimens collected Staff: Textile Broker: Umu Moss RN Scrub Person: Devyn Scales Drains and/or Catheters: * None in log * Tourniquet Times: Total Tourniquet Time Documented: Thigh (Left) - 49 minutes Total: Thigh (Left) - 49 minutes Implants: Implants Type Name Action Serial No. Other SURGICAL SIMPLEX P BONE CEMENT Implanted NA Joint PATELLA, TRIATHLON, ASYMMETRIC X3, SZ-A29 9MM - [id number] Implanted Joint FEM COMP, TRIATH CR SZ4 LEFT - [id number] Implanted 10MM TRIATHLON CS TIBIAL INSERT - X3 Implanted Joint PLATE, TIBIAL TRIATH VIPUL ILA FXD BPLT P4 - [id number] Implanted Findings: Osteoarthrosis left knee Indications: Janelle Pickett is an 67 y.o. female who is having surgery for Arthritis of left knee [M17.12]. The patient was seen in the preoperative area. The risks, benefits, complications, treatment options, non-operative alternatives, expected recovery and outcomes were discussed with the patient. The possibilities of reaction to medication, pulmonary aspiration, injury to surrounding structures, bleeding, recurrent infection, the need for additional procedures, failure to diagnose a condition, and creating a complication requiring transfusion or operation were discussed with the patient. The patient concurred with the proposed plan, giving informed consent. The site of surgery was properly noted/marked if necessary per policy. The patient has been actively warmed in preoperative area. Preoperative antibiotics have been ordered and given within 1 hours of incision. Venous thrombosis prophylaxis have been ordered including bilateral sequential compression devices and chemical prophylaxis Procedure Details: Indications: The patient is here for a left total knee arthroplasty. They have failed conservative treatment. Total knee arthroplasty was offered. The procedure was explained along with the risks, benefits and alternatives being reviewed. Potential risks including but not limited to: Infection, neurovascular complication, loosening, wear, DVT, instability as well as the potential need for reoperation and/or revision surgery were all discussed with the patient and they consented to the procedure. Components: Lalo Triathlon See above implant record Operative procedure: The patient was brought to the operative suite and a spinal anesthetic was administered per the anesthesia team. The patient was then placed in the supine position. All bony prominences were well-padded. A tourniquet was placed on the left thigh proximally over web roll. A bump was placed under the hip on the operative side. The lower extremity was then sterilely prepped with ChloraPrep then sterilely draped in usual manner. The foot and leg placed in the De[employer]o leg herring. A timeout was performed. The patient was identified, the site and laterality confirmed as was the administration of antibiotics confirmed. Tranexamic acid was given orally prior in the holding area. I began by exsanguinating the left lower extremity and inflated the tourniquet to 250 mmHg. I then identified landmarks. I made an incision anteriorly over the knee for a standard approach for total knee arthroplasty. I used careful dissection to the subcutaneous and fatty tissues. Identified the quadriceps tendon, medial retinaculum and peritenon over the patellar tendon. I entered the knee joint by incising through the quadriceps tendon, medial retinaculum and down to the bone of the proximal tibia medial to the patellar tendon. I performed my medial release for sharply with a knife then cleaned completed this with an elevator. I undermined the soft tissues behind the patellar tendon. I then debrided the synovium from the suprapatellar pouch. I then everted the patella and brought the knee up into flexion. I debrided the meniscus partially as well as the ACL. My debrided any osteophytes along the medial femoral condyle lateral femoral condyle. I then used a drill to gain access to the femoral medullary canal. With the femoral guide set at 5 degrees of valgus I planned for 8 millimeters of distal femoral resection. The PA pinned the cutting block into place. The distal femoral cut was then made. I then brought the tibia forward. I debrided the remainder of the meniscus. Using an extra medullary tibial cutting guide was chosen with a block for a 3 degree posterior slope. I used a 2 mm stylus and measured off the most involved compartment which was medial. The cutting block was pinned into place. I then made my tibial cut. I then checked my extension gap and was satisfied with this. I then flexed the knee and using diffusion block to help establish my rotation obtained a measurement of 3 degrees. I placed the femoral sizing guide set at the appropriate external rotation and drilled for the chamfer block. The chamfer block was placed and I made my anterior, posterior and chamfer cuts. I then debrided the posterior condyles with an osteotome and mallet as well as an elevator. I checked my flexion and extension gaps. I then placed the trial tibial insert and secured this into place. I placed the femoral component. I then placed a trial insert size 9 mm. I trialed with different inserts and decided on a size 10 mm CS tibial insert. I then drilled the lugs on the femur. At that point I made my freehand patellar cut resecting approximately 1 cm of patella. This was confirmed with a caliper. I then decided on a size 29 mm patella. The PA drilled for the patellar pegs. I then placed a trial patellar button. I took the knee through range of motion and had excellent patellar tracking. I was satisfied with my stability varus and valgus stressing the at zero, 30 and 60 degrees. I was satisfied with my stability in the AP plane at 90 degrees. The trial instrumentation was removed. I then prepared the tibia in standard fashion. The cement was prepared. At that point I removed the trial tibial tray. I debrided my gutters, medially, laterally as well as posteriorly. I injected the soft tissues and periosteum with a mixture of Ropivacaine with epinephrine, clonidine and Toradol. Surgery I then thoroughly copiously irrigated the knee with pulsatile lavage. Once the cement was ready I impacted the tibial component into place. The PA and I debrided any excess cement with a Wilson elevator. Next I impacted the femoral component into place and debrided any excess cement with a Wilson elevator with the assistance of the PA. Similarly I placed the patellar button followed by the patellar clamp and. Any excess cement with a freer elevator. I placed the trial insert into place and brought the knee out into extension to allow the cement to harden. Once the cement had hardened I removed the trial tibial tray and inserted the permanent size 10 mm CS tibial insert. I took the knee through range of motion and was satisfied with my patellar tracking and tested my stability which I was satisfied with. Attention was turned to closure. I thoroughly copiously irrigated with pulsatile lavage as well as with irrisept. The quadriceps tendon medial retinaculum and proximal tibia tissues reapproximated with Ethibond suture. The PA then closed the fatty tissues with 0 Vicryl. Subcutaneous closure was with 2-0 Vicryl. The skin was closed with a Monocryl subcuticular stitch. An Aquacel dressing was applied. The physician operating room assistant was present for the entire case. Given the nature of the procedure and disease process a skilled surgical services manager was necessary for the case. The operating room assistant was necessary for retraction and helped directly facilitate completion of the surgery. A certified composites technician was at the back table managing instruments and supplies for the surgical procedure. Complications: None; patient tolerated the procedure well. Disposition: PACU - hemodynamically stable. Condition: stable Additional Details: Not applicable Attending Attestation: I performed the procedure. Fredy Styles [facility] Work Phone: 06-10-2023 Attending History and physical note Interval History and Physical I have interviewed and examined the patient and reviewed the recent History and Physical. There have been no changes to the recent H&P documentation. The patient understands the planned operation and its associated risks and benefits and agrees to proceed. The surgical consent form has been signed. Visit Vitals BP 152/72 (BP Location: Right arm, Patient Position: Sitting) Pulse 61 Temp 36.4 C (97.5 F) (Temporal) Resp 26 Fredy Styles MD Source Note - Barney Prieto MD - 06/03/2023 11:40 AM EST History Of Present Illness Janelle Pickett is a 67 y.o. female presenting with low back pain and bilateral leg pain with bilateral foraminal stenosis noted at the L5-S1 level on her previous lumbar MRI.. Past Medical History Past Medical History: Diagnosis Date Fall 04/01/2022 Comment on above: FALL H/O mammogram 2021 2021-NORMAL- [facility] Influenza vaccination declined 11/2021 Pap smear for cervical cancer screening 02/2022- NORMAL- DONE AT [address] [place] [address] Surgical History Past Surgical History: Procedure Laterality Date COLONOSCOPY 2020 [facility] - NORMAL REPEAT IN 10 YEARS OOPHORECTOMY 10/30/1999 OTHER SURGICAL HISTORY Bilateral MEDIAL BRANCH BLOCK - PETEY BLANCHARD (PAIN MANAGEMENT) BILAT- L4-S1 MBB OTHER SURGICAL HISTORY 12/25/2021 Medial branch block Social History She reports that she has been smoking cigarettes. She has been smoking an average of .5 packs per day. She has been exposed to tobacco smoke. She has never used smokeless tobacco. She reports that she does not currently use alcohol. She reports that she does not use drugs. Family History Family History Problem Relation Name Age of Onset Aneurysm Mother Edema Father 1970 Other (MALIGNANT NEOPLASM) Brother Cancer Father's Sister 2-3 AUNTS ON FATHER SIDE Allergies Gemfibrozil Review of Systems Constitutional: Negative. HENT: Negative. Eyes: Negative. Respiratory: Negative for cough, shortness of breath and wheezing. Cardiovascular: Negative for chest pain, palpitations and leg swelling. Endocrine: Negative. Genitourinary: Negative. Musculoskeletal: Positive for back pain and myalgias. Negative for arthralgias. Skin: Negative. Allergic/Immunologic: Negative. Neurological: Negative for facial asymmetry, weakness and light-headedness. Hematological: Negative for adenopathy. Does not bruise/bleed easily. Psychiatric/Behavioral: Negative for dysphoric mood and suicidal ideas. Physical Exam Constitutional: General: She is not in acute distress. Appearance: Normal appearance. HENT: Head: Normocephalic. Mouth/Throat: Mouth: Mucous membranes are moist. Eyes: Extraocular Movements: Extraocular movements intact. Cardiovascular: Rate and Rhythm: Normal rate and regular rhythm. Pulses: Normal pulses. Heart sounds: Normal heart sounds. No murmur heard. No friction rub. No gallop. Pulmonary: Effort: Pulmonary effort is normal. Breath sounds: Normal breath sounds. No wheezing, rhonchi or rales. Abdominal: General: Abdomen is flat. Palpations: Abdomen is soft. Musculoskeletal: Cervical back: Normal range of motion. Right lower leg: No edema. Left lower leg: No edema. Lymphadenopathy: Cervical: No cervical adenopathy. Skin: General: Skin is warm and dry. Neurological: General: No focal deficit present. Mental Status: She is alert and oriented to person, place, and time. Mental status is at baseline. Psychiatric: Mood and Affect: Mood normal. Behavior: Behavior normal. Last Recorded Vitals There were no vitals taken for this visit. Assessment/Plan Lumbar radiculopathy The risks and benefits of the L5-S1 interlaminar epidural steroid injection with fluoroscopy was discussed at length with the patient. The records and imaging were reviewed by me. The patient understood that there was no guarantee that the procedure will alleviate their pain. All questions were answered prior to leaving for the OR. This document was dictated and electronically signed using enavu Speaking software. A reasonable attempt at proof reading was made to minimize errors. Please call with any questions. Barney Prieto MD [facility] Work Phone: 06-03-2023 Miscellaneous Notes Discharge instructions reviewed by Faviola Hagan RN no questions and verbalized understanding. Pt discharged amb to exit steady gait, to be driven home by family benson well Date: 06/03/2023 OR Location: [facility] OR Name: Janelle Pickett : 1955 Age: 67 y.o. Sex: female Diagnosis Lumbar radiculopathy Procedures L5-S1 interlaminar epidural steroid injection with fluoroscopy Surgeons Barney Prieto MD Procedure Summary Anesthesia: Local ASA: ASA status not filed in the log. Anesthesia Staff: Dr. Prieto Estimated Blood Loss: 0 mL Intra-op Medications: * Intraprocedure medication information is unavailable because the case start and end events have not been set * Intraprocedure I/O Totals None Specimen: No specimens collected Indications: Janelle Pickett is an 67 y.o. female who is having a L5-S1 interlaminar epidural steroid injection with fluoroscopy for low back pain and bilateral leg pain. Patient had previous L5-S1 interlaminar epidural steroid injection with several months of relief.. The patient was seen in the preoperative area. The risks, benefits, complications, treatment options, non-operative alternatives, expected recovery and outcomes were discussed with the patient. The possibilities of reaction to medication, injury to surrounding structures, bleeding and infection were discussed with the patient. The patient concurred with the proposed plan, giving informed consent. The site of surgery was properly noted/marked. Procedure Details: Patient was taken to the OR and placed on the procedure table with a pillow under the hips to assist with lumbar flexion. Patient voiced that they were in a comfortable position. Using aseptic technique the lower lumbar region was prepped with chlorhexidine solution and draped in a standard fashion. Using fluoroscopy with assistance of the train control electronic technician: The L5-S1 level was identified. The skin and underlying tissue was anesthetized with 5 mL of 1% lidocaine. Using both AP and lateral views with fluoroscopy a 3.5 inch number 18-gauge Touhy needle was placed into the L5-S1 epidural space using the bkib-[id number]-[id number] technique without complication. There is no blood or CSF emanating from the needle nor were there any paresthesias. 3 cc of Omnipaque 300 dye was injected with excellent epidural spread and no vascular uptake. A total of 2 mL of 0.25 bupivacaine and 6 mL of sterile saline along with 10 mg dexamethasone PF was injected without complication. The needle was then removed. Patient tolerated the procedure well and was sent to the recovery room in stable condition. Postop and follow-up instructions given to the patient. Complications: None; patient tolerated the procedure well. Disposition: PACU - hemodynamically stable. Condition: stable Additional Details: Barney Prieto MD documented in this encounter [facility] Work Phone: 06-03-2023 Note Formatting of this n ote might be different from the original. Discharge instructions reviewed by Faviola Hagan RN no questions and verbalized understanding. Pt discharged amb to exit steady gait, to be driven home by family benson well [facility] 06-03-2023 Note Formatting of this n ote might be different from the original. Discharge instructions reviewed by Faviola Hagan RN no questions and verbalized understanding. Pt discharged amb to exit steady gait, to be driven home by family benson well [facility] 06-03-2023 History and physical note History Of Present Illness Janelle Pickett is a 67 y.o. female presenting with low back pain and bilateral leg pain with bilateral foraminal stenosis noted at the L5-S1 level on her previous lumbar MRI.. Past Medical History Past Medical History: Diagnosis Date Fall 04/01/2022 Comment on above: FALL H/O mammogram 2021 2021-NORMAL- [facility] Influenza vaccination declined 11/2021 Pap smear for cervical cancer screening 02/2022- NORMAL- DONE AT [address] [place] [address] Surgical History Past Surgical History: Procedure Laterality Date COLONOSCOPY 2020 [facility] - NORMAL REPEAT IN 10 YEARS OOPHORECTOMY 10/30/1999 OTHER SURGICAL HISTORY Bilateral MEDIAL BRANCH BLOCK - PETEY BLANCHARD (PAIN MANAGEMENT) BILAT- L4-S1 MBB OTHER SURGICAL HISTORY 12/25/2021 Medial branch block Social History She reports that she has been smoking cigarettes. She has been smoking an average of .5 packs per day. She has been exposed to tobacco smoke. She has never used smokeless tobacco. She reports that she does not currently use alcohol. She reports that she does not use drugs. Family History Family History Problem Relation Name Age of Onset Aneurysm Mother Edema Father 1970 Other (MALIGNANT NEOPLASM) Brother Cancer Father's Sister 2-3 AUNTS ON FATHER SIDE Allergies Gemfibrozil Review of Systems Constitutional: Negative. HENT: Negative. Eyes: Negative. Respiratory: Negative for cough, shortness of breath and wheezing. Cardiovascular: Negative for chest pain, palpitations and leg swelling. Endocrine: Negative. Genitourinary: Negative. Musculoskeletal: Positive for back pain and myalgias. Negative for arthralgias. Skin: Negative. Allergic/Immunologic: Negative. Neurological: Negative for facial asymmetry, weakness and light-headedness. Hematological: Negative for adenopathy. Does not bruise/bleed easily. Psychiatric/Behavioral: Negative for dysphoric mood and suicidal ideas. Physical Exam Constitutional: General: She is not in acute distress. Appearance: Normal appearance. HENT: Head: Normocephalic. Mouth/Throat: Mouth: Mucous membranes are moist. Eyes: Extraocular Movements: Extraocular movements intact. Cardiovascular: Rate and Rhythm: Normal rate and regular rhythm. Pulses: Normal pulses. Heart sounds: Normal heart sounds. No murmur heard. No friction rub. No gallop. Pulmonary: Effort: Pulmonary effort is normal. Breath sounds: Normal breath sounds. No wheezing, rhonchi or rales. Abdominal: General: Abdomen is flat. Palpations: Abdomen is soft. Musculoskeletal: Cervical back: Normal range of motion. Right lower leg: No edema. Left lower leg: No edema. Lymphadenopathy: Cervical: No cervical adenopathy. Skin: General: Skin is warm and dry. Neurological: General: No focal deficit present. Mental Status: She is alert and oriented to person, place, and time. Mental status is at baseline. Psychiatric: Mood and Affect: Mood normal. Behavior: Behavior normal. Last Recorded Vitals There were no vitals taken for this visit. Assessment/Plan Lumbar radiculopathy The risks and benefits of the L5-S1 interlaminar epidural steroid injection with fluoroscopy was discussed at length with the patient. The records and imaging were reviewed by me. The patient understood that there was no guarantee that the procedure will alleviate their pain. All questions were answered prior to leaving for the OR. This document was dictated and electronically signed using [employer] software. A reasonable attempt at proof reading was made to minimize errors. Please call with any questions. Barney Prieto MD [facility] Work Phone: 06-03-2023 History and physical note History Of Present Illness Janelle Pickett is a 67 y.o. female presenting with low back pain and bilateral leg pain with bilateral foraminal stenosis noted at the L5-S1 level on her previous lumbar MRI.. Past Medical History Past Medical History: Diagnosis Date Fall 04/01/2022 Comment on above: FALL H/O mammogram 2021 2021-NORMAL- [facility] Influenza vaccination declined 11/2021 Pap smear for cervical cancer screening 02/2022- NORMAL- DONE AT [address] [place] [address] Surgical History Past Surgical History: Procedure Laterality Date COLONOSCOPY 2020 [facility] - NORMAL REPEAT IN 10 YEARS OOPHORECTOMY 10/30/1999 OTHER SURGICAL HISTORY Bilateral MEDIAL BRANCH BLOCK - PETEY BLANCHARD (PAIN MANAGEMENT) BILAT- L4-S1 MBB OTHER SURGICAL HISTORY 12/25/2021 Medial branch block Social History She reports that she has been smoking cigarettes. She has been smoking an average of .5 packs per day. She has been exposed to tobacco smoke. She has never used smokeless tobacco. She reports that she does not currently use alcohol. She reports that she does not use drugs. Family History Family History Problem Relation Name Age of Onset Aneurysm Mother Edema Father 1970 Other (MALIGNANT NEOPLASM) Brother Cancer Father's Sister 2-3 AUNTS ON FATHER SIDE Allergies Gemfibrozil Review of Systems Constitutional: Negative. HENT: Negative. Eyes: Negative. Respiratory: Negative for cough, shortness of breath and wheezing. Cardiovascular: Negative for chest pain, palpitations and leg swelling. Endocrine: Negative. Genitourinary: Negative. Musculoskeletal: Positive for back pain and myalgias. Negative for arthralgias. Skin: Negative. Allergic/Immunologic: Negative. Neurological: Negative for facial asymmetry, weakness and light-headedness. Hematological: Negative for adenopathy. Does not bruise/bleed easily. Psychiatric/Behavioral: Negative for dysphoric mood and suicidal ideas. Physical Exam Constitutional: General: She is not in acute distress. Appearance: Normal appearance. HENT: Head: Normocephalic. Mouth/Throat: Mouth: Mucous membranes are moist. Eyes: Extraocular Movements: Extraocular movements intact. Cardiovascular: Rate and Rhythm: Normal rate and regular rhythm. Pulses: Normal pulses. Heart sounds: Normal heart sounds. No murmur heard. No friction rub. No gallop. Pulmonary: Effort: Pulmonary effort is normal. Breath sounds: Normal breath sounds. No wheezing, rhonchi or rales. Abdominal: General: Abdomen is flat. Palpations: Abdomen is soft. Musculoskeletal: Cervical back: Normal range of motion. Right lower leg: No edema. Left lower leg: No edema. Lymphadenopathy: Cervical: No cervical adenopathy. Skin: General: Skin is warm and dry. Neurological: General: No focal deficit present. Mental Status: She is alert and oriented to person, place, and time. Mental status is at baseline. Psychiatric: Mood and Affect: Mood normal. Behavior: Behavior normal. Last Recorded Vitals There were no vitals taken for this visit. Assessment/Plan Lumbar radiculopathy The risks and benefits of the L5-S1 interlaminar epidural steroid injection with fluoroscopy was discussed at length with the patient. The records and imaging were reviewed by me. The patient understood that there was no guarantee that the procedure will alleviate their pain. All questions were answered prior to leaving for the OR. This document was dictated and electronically signed using enavu Speaking software. A reasonable attempt at proof reading was made to minimize errors. Please call with any questions. Barney Prieto MD documented in this encounter [facility] Work Phone: 06-03-2023 Note Formatting of this n ote is different from the original. Date: 06/03/2023 OR Location: [facility] OR Name: Janelle Pickett : 1955 Age: 67 y.o. Sex: female Diagnosis Lumbar radiculopathy Procedures L5-S1 interlaminar epidural steroid injection with fluoroscopy Surgeons Barney Prieto MD Procedure Summary Anesthesia: Local ASA: ASA status not filed in the log. Anesthesia Staff: Dr. Prieto Estimated Blood Loss: 0 mL Intra-op Medications: * Intraprocedure medication information is unavailable because the case start and end events have not been set * Intraprocedure I/O Totals None Specimen: No specimens collected Indications: Janelle Pickett is an 67 y.o. female who is having a L5-S1 interlaminar epidural steroid injection with fluoroscopy for low back pain and bilateral leg pain. Patient had previous L5-S1 interlaminar epidural steroid injection with several months of relief.. The patient was seen in the preoperative area. The risks, benefits, complications, treatment options, non-operative alternatives, expected recovery and outcomes were discussed with the patient. The possibilities of reaction to medication, injury to surrounding structures, bleeding and infection were discussed with the patient. The patient concurred with the proposed plan, giving informed consent. The site of surgery was properly noted/marked. Procedure Details: Patient was taken to the OR and placed on the procedure table with a pillow under the hips to assist with lumbar flexion. Patient voiced that they were in a comfortable position. Using aseptic technique the lower lumbar region was prepped with chlorhexidine solution and draped in a standard fashion. Using fluoroscopy with assistance of the train control electronic technician: The L5-S1 level was identified. The skin and underlying tissue was anesthetized with 5 mL of 1% lidocaine. Using both AP and lateral views with fluoroscopy a 3.5 inch number 18-gauge Touhy needle was placed into the L5-S1 epidural space using the [id number] technique without complication. There is no blood or CSF emanating from the needle nor were there any paresthesias. 3 cc of Omnipaque 300 dye was injected with excellent epidural spread and no vascular uptake. A total of 2 mL of 0.25 bupivacaine and 6 mL of sterile saline along with 10 mg dexamethasone PF was injected without complication. The needle was then removed. Patient tolerated the procedure well and was sent to the recovery room in stable condition. Postop and follow-up instructions given to the patient. Complications: None; patient tolerated the procedure well. Disposition: PACU - hemodynamically stable. Condition: stable Additional Details: Barney Prieto MD [facility] Work Phone: 06-03-2023 Note Formatting of this n ote is different from the original. Date: 06/03/2023 OR Location: [facility] OR Name: Janelle Pickett : 1955 Age: 67 y.o. Sex: female Diagnosis Lumbar radiculopathy Procedures L5-S1 interlaminar epidural steroid injection with fluoroscopy Surgeons Barney Prieto MD Procedure Summary Anesthesia: Local ASA: ASA status not filed in the log. Anesthesia Staff: Dr. Prieto Estimated Blood Loss: 0 mL Intra-op Medications: * Intraprocedure medication information is unavailable because the case start and end events have not been set * Intraprocedure I/O Totals None Specimen: No specimens collected Indications: Janelle Pickett is an 67 y.o. female who is having a L5-S1 interlaminar epidural steroid injection with fluoroscopy for low back pain and bilateral leg pain. Patient had previous L5-S1 interlaminar epidural steroid injection with several months of relief.. The patient was seen in the preoperative area. The risks, benefits, complications, treatment options, non-operative alternatives, expected recovery and outcomes were discussed with the patient. The possibilities of reaction to medication, injury to surrounding structures, bleeding and infection were discussed with the patient. The patient concurred with the proposed plan, giving informed consent. The site of surgery was properly noted/marked. Procedure Details: Patient was taken to the OR and placed on the procedure table with a pillow under the hips to assist with lumbar flexion. Patient voiced that they were in a comfortable position. Using aseptic technique the lower lumbar region was prepped with chlorhexidine solution and draped in a standard fashion. Using fluoroscopy with assistance of the train control electronic technician: The L5-S1 level was identified. The skin and underlying tissue was anesthetized with 5 mL of 1% lidocaine. Using both AP and lateral views with fluoroscopy a 3.5 inch number 18-gauge Touhy needle was placed into the L5-S1 epidural space using the [id number] technique without complication. There is no blood or CSF emanating from the needle nor were there any paresthesias. 3 cc of Omnipaque 300 dye was injected with excellent epidural spread and no vascular uptake. A total of 2 mL of 0.25 bupivacaine and 6 mL of sterile saline along with 10 mg dexamethasone PF was injected without complication. The needle was then removed. Patient tolerated the procedure well and was sent to the recovery room in stable condition. Postop and follow-up instructions given to the patient. Complications: None; patient tolerated the procedure well. Disposition: PACU - hemodynamically stable. Condition: stable Additional Details: Barney Prieto MD [facility] Work Phone: 06-03-2023 Note Formatting of this n ote is different from the original. No outpatient medications have been marked as taking for the 06/10/23 encounter (Hospital Encounter). NPO Instructions: May have sips of clear liquids until 4 hours prior to surgery, follow ERAS instructions including drinking clear carb loading drink 4 hours prior to surgery Additional Instructions: Will receive call day before surgery with arrival time [facility] 06-01-2023 History of Present illness Narrative Subjective Patient ID: Janelle Pickett is a 67 y.o. female who presents for Med Management (FOLLOW UP ON GABAPENTIN SHE TAKES DAILY FOR HER LOWER BACK PAIN, SHE HAS PAIN WITH WALKING, THROBBING DISCOMFORT, SHE JUST HAD LEFT KNEE REPLACEMENT 5 WEEKS AGO, SHE HAS INCREASED PAIN WITH WALKING SINCE SHE IS DOING HOME HEALTH REHAB, ).SHE ALTERNATES ICE/HEAT, SHE AMBULATES WITH A WALKER, HER LOWER BACK PAIN TODAY IS 7/10, ORT=1, PAULIE=56% Micheline Bui, RAGHAVENDRA 07/06/23 8:53 AM Patient is a 67-year-old female. She presents today for another appointment after undergoing an L5-S1 epidural steroid injection. This was done on 06/03/2023 and at this time has given her at least 50% relief. Unfortunate, she states that things are somewhat sore and uncomfortable right now because she had a left knee replacement done on 06/10/2023 and she is doing a lot of therapy for this. She states that right now she is just achy in her knee and her lower back. She states that things are improved from the epidural and things are improved from the replacement she is just recovering at this time. For her radicular symptoms, she has also tried OTC anti-inflammatory medication without any relief. She is on Pletal. She states that she has told the prescribing physician that she intermittently uses ibuprofen. She is not able to use Tylenol due to cirrhosis. She is using gabapentin. 600 mg 3 times a day. She tolerates this well. It does give her improvement and she feels that it is overall beneficial to her she just wonders about possibly having a little bit higher of a dose to see if she can get a little bit better control of the pain. Review of Systems Constitutional: Negative. HENT: Negative. Eyes: Negative. Respiratory: Negative. Cardiovascular: Negative. Gastrointestinal: Negative. Endocrine: Negative. Genitourinary: Negative. Musculoskeletal: Positive for arthralgias, back pain, gait problem and myalgias. Skin: Negative. Allergic/Immunologic: Negative. Hematological: Negative. Psychiatric/Behavioral: Negative. Objective Physical Exam Vitals and nursing note reviewed. Constitutional: Appearance: Normal appearance. She is obese. HENT: Head: Normocephalic and atraumatic. Right Ear: External ear normal. Left Ear: External ear normal. Nose: Nose normal. Mouth/Throat: Pharynx: Oropharynx is clear. Eyes: Conjunctiva/sclera: Conjunctivae normal. Cardiovascular: Rate and Rhythm: Normal rate and regular rhythm. Pulses: Normal pulses. Pulmonary: Effort: Pulmonary effort is normal. Musculoskeletal: General: Normal range of motion. Cervical back: Normal range of motion. Comments: 5/5 strength throughout other than pain with movement of the left knee Ambulating with a walker Skin: General: Skin is warm and dry. Neurological: General: No focal deficit present. Mental Status: She is alert and oriented to person, place, and time. Mental status is at baseline. Psychiatric: Mood and Affect: Mood normal. Behavior: Behavior normal. Thought Content: Thought content normal. Judgment: Judgment normal. Assessment/Plan Diagnoses and all orders for this visit: Degenerative lumbar spinal stenosis - gabapentin (Neurontin) 800 mg tablet; Take 1 tablet (800 mg) by mouth 3 times a day. Lumbar radiculopathy, chronic - gabapentin (Neurontin) 800 mg tablet; Take 1 tablet (800 mg) by mouth 3 times a day. Degenerative disc disease at L5-S1 level - gabapentin (Neurontin) 800 mg tablet; Take 1 tablet (800 mg) by mouth 3 times a day. S/P total knee arthroplasty, left - gabapentin (Neurontin) 800 mg tablet; Take 1 tablet (800 mg) by mouth 3 times a day. Myalgia Chronic bilateral low back pain, unspecified whether sciatica present Patient is a 67-year-old female with a past medical history significant for lumbar degenerative disease and lumbar neuritis. She underwent L5-S1 epidural steroid injection on 06/03/2023 and has obtained at least 50% relief. She is that things are going well in regards to this. No radicular symptoms. Unfortunately she does have some back pain but she feels that this is from her ambulation being thrown off from having a recent left knee replacement. This was done on 06/10/2023 and she states she is still recovering from this. She is doing therapy. She feels that the therapy has also somewhat flared up her pain. At this time, she is going to continue the therapy and we discussed increasing the gabapentin. 800 mg 3 times a day. How to increase it was discussed. OARRS was reviewed. Prescription sent to the pharmacy. Follow-up in 6 weeks for reevaluation and discussion of repeating the epidural should it be necessary. At this time, she feels that it was very beneficial to her she has had some issues with the positioning. documented in this encounter [facility] Work Phone: 05-30-2023 Hospital Discharge instructions Ryan Mehta MD - 05/30/2023 10:28 PM EST You have an ultrasound of your left leg scheduled for 7:30 AM tomorrow morning. If you cannot make that call and reschedule for later the same day. documented in this encounter [facility] Work Phone: 05-30-2023 Emergency department Note Images from the original note were not included. HPI Chief Complaint Patient presents with Leg Pain Patient is a 67-year-old female chief complaint of left leg pain. Is been going on for 3 days. She is scheduled to have a left total knee replacement the first of next month. She has some chronic swelling in the left lower leg but states its gotten a little bit worse. Reports the pain is primarily posterior medial left knee and distal thigh. No recent trauma. No chest pain difficulty breathing Michael Coma Scale Score: 15 Patient History Past Medical History: Diagnosis Date Fall 04/01/2022 Comment on above: FALL H/O mammogram 2021 2021-NORMAL- [facility] Influenza vaccination declined 11/2021 Pap smear for cervical cancer screening 02/2022- NORMAL- DONE AT [address] [place] [address] Past Surgical History: Procedure Laterality Date COLONOSCOPY 2020 [facility] - NORMAL REPEAT IN 10 YEARS OOPHORECTOMY 10/30/1999 OTHER SURGICAL HISTORY Bilateral MEDIAL BRANCH BLOCK - PETEY BLANCHARD (PAIN MANAGEMENT) BILAT- L4-S1 MBB OTHER SURGICAL HISTORY 12/25/2021 Medial branch block Family History Problem Relation Name Age of Onset Aneurysm Mother Edema Father 1970 Other (MALIGNANT NEOPLASM) Brother Cancer Father's Sister 2-3 AUNTS ON FATHER SIDE Social History Tobacco Use Smoking status: Every Day Packs/day: .5 Types: Cigarettes Passive exposure: Current Smokeless tobacco: Never Vaping Use Vaping Use: Never used Substance Use Topics Alcohol use: Not Currently Drug use: Never Physical Exam ED Triage Vitals Temp Pulse Resp BP -- -- -- -- SpO2 Temp src Heart Rate Source Patient Position -- -- -- -- BP Location FiO2 (%) -- -- Physical Exam Vitals and nursing note reviewed. Constitutional: General: She is not in acute distress. Appearance: She is well-developed. HENT: Head: Normocephalic and atraumatic. Eyes: Conjunctiva/sclera: Conjunctivae normal. Cardiovascular: Rate and Rhythm: Normal rate and regular rhythm. Heart sounds: No murmur heard. Pulmonary: Effort: Pulmonary effort is normal. No respiratory distress. Breath sounds: Normal breath sounds. Abdominal: Palpations: Abdomen is soft. Tenderness: There is no abdominal tenderness. Musculoskeletal: General: No swelling. Cervical back: Neck supple. Legs: Comments: Patient has some tenderness in the area marked posterior medial left knee and thigh. Seems to follow a little bit the insertion and tendon of the medial hamstring muscle. However the thigh does appear a little bit more swollen on the left compared to the right as well as the lower leg. Skin: General: Skin is warm and dry. Capillary Refill: Capillary refill takes less than 2 seconds. Neurological: Mental Status: She is alert. Psychiatric: Mood and Affect: Mood normal. ED Course & MDM Diagnoses as of 05/30/232227 Left leg pain Medical Decision Making Patient presents for evaluation of left leg pain. Rated the pain 10 out of 10 upon EMS arrival. Establish IV and gave her 100 mics of fentanyl. Pain is now a 3 out of 10. She does have some posterior leg discomfort and swelling. She would benefit from an ultrasound to rule out a DVT. Will put an order in for that for tomorrow. Will give her an initial dose of Eliquis 10 mg p.o. here tonight. He has no difficulty breathing, shortness of breath, tachycardia or tachypnea. Procedure Procedures Ryan Mehta MD 05/30/232228 documented in this encounter [facility] Work Phone: 05-30-2023 Physician Emergency department Note Images from the original note were not included. HPI Chief Complaint Patient presents with Leg Pain Patient is a 67-year-old female chief complaint of left leg pain. Is been going on for 3 days. She is scheduled to have a left total knee replacement the first of next month. She has some chronic swelling in the left lower leg but states its gotten a little bit worse. Reports the pain is primarily posterior medial left knee and distal thigh. No recent trauma. No chest pain difficulty breathing [place] Coma Scale Score: 15 Patient History Past Medical History: Diagnosis Date Fall 04/01/2022 Comment on above: FALL H/O mammogram 2021 2021-NORMAL- [facility] Influenza vaccination declined 11/2021 Pap smear for cervical cancer screening 02/2022- NORMAL- DONE AT [address] [place] [address] Past Surgical History: Procedure Laterality Date COLONOSCOPY 2020 [facility] - NORMAL REPEAT IN 10 YEARS OOPHORECTOMY 10/30/1999 OTHER SURGICAL HISTORY Bilateral MEDIAL BRANCH BLOCK - PETEY BLANCHARD (PAIN MANAGEMENT) BILAT- L4-S1 MBB OTHER SURGICAL HISTORY 12/25/2021 Medial branch block Family History Problem Relation Name Age of Onset Aneurysm Mother Edema Father 1970 Other (MALIGNANT NEOPLASM) Brother Cancer Father's Sister 2-3 AUNTS ON FATHER SIDE Social History Tobacco Use Smoking status: Every Day Packs/day: .5 Types: Cigarettes Passive exposure: Current Smokeless tobacco: Never Vaping Use Vaping Use: Never used Substance Use Topics Alcohol use: Not Currently Drug use: Never Physical Exam ED Triage Vitals Temp Pulse Resp BP -- -- -- -- SpO2 Temp src Heart Rate Source Patient Position -- -- -- -- BP Location FiO2 (%) -- -- Physical Exam Vitals and nursing note reviewed. Constitutional: General: She is not in acute distress. Appearance: She is well-developed. HENT: Head: Normocephalic and atraumatic. Eyes: Conjunctiva/sclera: Conjunctivae normal. Cardiovascular: Rate and Rhythm: Normal rate and regular rhythm. Heart sounds: No murmur heard. Pulmonary: Effort: Pulmonary effort is normal. No respiratory distress. Breath sounds: Normal breath sounds. Abdominal: Palpations: Abdomen is soft. Tenderness: There is no abdominal tenderness. Musculoskeletal: General: No swelling. Cervical back: Neck supple. Legs: Comments: Patient has some tenderness in the area marked posterior medial left knee and thigh. Seems to follow a little bit the insertion and tendon of the medial hamstring muscle. However the thigh does appear a little bit more swollen on the left compared to the right as well as the lower leg. Skin: General: Skin is warm and dry. Capillary Refill: Capillary refill takes less than 2 seconds. Neurological: Mental Status: She is alert. Psychiatric: Mood and Affect: Mood normal. ED Course & MDM Diagnoses as of 05/30/232227 Left leg pain Medical Decision Making Patient presents for evaluation of left leg pain. Rated the pain 10 out of 10 upon EMS arrival. Establish IV and gave her 100 mics of fentanyl. Pain is now a 3 out of 10. She does have some posterior leg discomfort and swelling. She would benefit from an ultrasound to rule out a DVT. Will put an order in for that for tomorrow. Will give her an initial dose of Eliquis 10 mg p.o. here tonight. He has no difficulty breathing, shortness of breath, tachycardia or tachypnea. Procedure Procedures Ryan Mehta MD 05/30/233 [facility] Work Phone: 05-30-2023 Evaluation + Plan note Associated Problem(s): Diabetes mellitus with stage 3 chronic kidney disease (CMS/HCC) Last Visit Summary: Clarified insulin and Ozempic doses w/PCPCallie PA-C Lantus Solostar 45 units BID Ozempic 2mg weekly Discussed applying for [facility] P[facility] for insulins and inhalers Instructed patient to continue her Breztri, Albuterol, and DuoNebs, but stop the Spiriva handihaler Assessment: No change in insulin or Ozempic doses No change in inhalers Does not need refills on medications or testing supplies at this time Discussed ways of completing and forwarding necessary forms for [facility] PAP application Plan: Patient asked to shorten the visit since she was not feeling well and in a lot of pain Asked that follow-up be scheduled farther out, since she is scheduled for surgery beginning of June Will schedule follow-up for second week of June for [facility] PAP No changes made to medication regimen at this time [facility] Work Phone: 05-30-2023 Miscellaneous Notes Associated Problem(s): Diabetes mellitus with stage 3 chronic kidney disease (CMS/HCC) Last Visit Summary: Clarified insulin and Ozempic doses w/PCPCallie PA-C Lantus Solostar 45 units BID Ozempic 2mg weekly Discussed applying for [facility] P[facility] for insulins and inhalers Instructed patient to continue her Breztri, Albuterol, and DuoNebs, but stop the Spiriva handihaler Assessment: No change in insulin or Ozempic doses No change in inhalers Does not need refills on medications or testing supplies at this time Discussed ways of completing and forwarding necessary forms for PAP application Plan: Patient asked to shorten the visit since she was not feeling well and in a lot of pain Asked that follow-up be scheduled farther out, since she is scheduled for surgery beginning of June Will schedule follow-up for second week of June for PAP No changes made to medication regimen at this time documented in this encounter [facility] Work Phone: 05-30-2023 History of Present illness Narrative Pharmacy Post-Discharge Visit Janelle Pickett is a 67 y.o. female was referred to Clinical Pharmacy Team to complete a post-discharge medication optimization and monitoring visit. The patient was referred for their Diabetes and COPD. Admission Date: 04/13/2023 Discharge Date: 04/14/2023 Referring Provider: Callie Mcdonough PA-C Patient poor medication historian. Utilizes several pharmacies which may be adding to confusion. Subjective Allergies Allergen Reactions Gemfibrozil Other [id number] - [place], [place] - [address] [facility] [address] [facility] [address] [facility] - [address] [facility] [address] Social History Social History Narrative Not on file Notable Medication changes following discharge: Start: Azithromycin 500mg (1 tab PO once daily q24hrs x2 days) Stop: Stop Advair inhaler; Naproxen 500mg; Prednisone 10mg; Silver Sulfadiazine 1% cream. Change: N/A HPI COPD ASSESSMENT Rescue Inhaler Use: -How many times per week do you use your rescue inhale? ~3 Inhaler Technique: -How do you use your rescue inhaler? -PRN basis -How do you use your maintenance inhaler? -PRN basis Secondary Prevention (vaccines): -Influenza: Date [No] -PCV13: Date [ No] -PPSV23: Date [No] Sx Management: -Increased cough? yes -Increased sputum production? yes -Increased SOB? yes Exacerbation Hx: -When was your last hospitalization for an exacerbation? 04/13/2023 -When was the last time you were treated with antibiotics and/or steroids? 04/14/2023 Review of Systems Medication System Management: Affordability/Accessibility: Patient expressed concerns with affording her inhalers and insulins Adherence/Organization: Non-adherent with inhalers. Not reliable medication historian. Adverse Effects: Not addressed this visit Objective LMP (LMP Unknown) LAB Lab Results Component Value Date BILITOT 0.3 04/14/2023 CALCIUM 8.0 (L) 04/14/2023 CO2 28 04/14/2023 CL 103 04/14/2023 CREATININE 1.07 (H) 04/14/2023 GLUCOSE 129 (H) 04/14/2023 ALKPHOS 90 04/14/2023 K 4.0 04/14/2023 PROT 5.6 (L) 04/14/2023 NA 137 04/14/2023 AST 16 04/14/2023 ALT 17 04/14/2023 BUN 13 04/14/2023 ANIONGAP 10 04/14/2023 MG 1.78 04/14/2023 PHOS 4.0 04/13/2023 ALBUMIN 2.9 (L) 04/14/2023 LIPASE 35 10/18/2022 GFRF 67 10/18/2022 Lab Results Component Value Date TRIG 268 (H) 02/07/2023 CHOL 192 02/07/2023 LDLCALC 90 02/07/2023 HDL 48.0 02/07/2023 Lab Results Component Value Date HGBA1C 7.1 (H) 04/14/2023 Current Outpatient Medications on File Prior to Visit Medication Sig Dispense Refill albuterol 90 mcg/actuation inhaler Inhale 2 puffs every 6 hours if needed for wheezing or shortness of breath. insulin glargine (Lantus Solostar U-100 Insulin) 100 unit/mL (3 mL) pen Inject 40 units Subcutaneously BID 63 mL 3 Ozempic 2 mg/dose (8 mg/3 mL) pen injector INJECT 2 MG UNDER THE SKIN 1 (ONE) TIME PER WEEK. 3 mL 0 atorvastatin (Lipitor) 20 mg tablet Take 1 tablet (20 mg) by mouth once daily. 90 tablet 3 Autolet lancing device 1 each if needed. Use as instructed blood sugar diagnostic (Clip Interactiveuch Verio test strips) strip 1 each 2 times a day. 300 strip 3 elthqeaymo-wpljxvvl-dotjfgnngg (Breztri Aerosphere) 160-9-4.8 mcg/actuation HFA aerosol inhaler Inhale 2 puffs 2 times a day. 10.7 g 5 citalopram (CeleXA) 40 mg tablet Take 1 tablet (40 mg) by mouth once daily. 90 tablet 3 cyanocobalamin (Vitamin B-12) 1,000 mcg tablet Take 1 tablet (1,000 mcg) by mouth every other day. 45 tablet 3 cyclobenzaprine (Flexeril) 10 mg tablet Take 1 tablet (10 mg) by mouth 3 times a day as needed for muscle spasms. diclofenac sodium (Voltaren) 1 % gel gel once daily. dicyclomine (Bentyl) 20 mg tablet Take 1 tablet (20 mg) by mouth 4 times a day as needed (Abd pain). 40 tablet 0 docusate sodium (Colace) 100 mg capsule Take 1 capsule (100 mg) by mouth 2 times a day as needed for constipation. 60 capsule 0 DULoxetine (Cymbalta) [address] capsule Take 1 capsule (20 mg) by mouth once daily. 90 capsule 3 ergocalciferol (Vitamin D-2) 1.25 MG (48726 UT) capsule Take 1 cap twice weekly (on separate days) 25 capsule 3 FreeStyle glucose monitoring kit 1 each 2 times a day as needed (hyperglycemia and hypoglycemia symptoms). 1 each 2 gabapentin (Neurontin) 600 mg tablet Take 1 tablet (600 mg) by mouth 3 times a day. 90 tablet 1 ibuprofen 600 mg tablet Take 1 tablet (600 mg) by mouth every 6 hours if needed. insulin glargine (Lantus) 100 unit/mL (3 mL) pen Inject 40 Units under the skin 2 times a day. Take as directed per insulin instructions. 21 mL 0 ipratropium-albuteroL (Duo-Neb) 0.5-2.5 mg/3 mL nebulizer solution Inhale. Use 1 unit dose in nebulizer every 4 hours as needed lancets (OneTouch Delica Plus Lancet) 33 gauge misc 1 each 2 times a day. 300 each 3 levothyroxine (Synthroid, Levoxyl) 50 mcg tablet Take 1 tablet (50 mcg) by mouth once daily. 90 tablet 3 linaCLOtide (Linzess) 145 mcg capsule Take 1 capsule (145 mcg) by mouth once daily in the morning. Take before meals. 90 capsule 3 magnesium oxide (Mag-Ox) 400 mg tablet Take 1 tablet (400 mg) by mouth 3 times a day. 270 tablet 3 methocarbamol (Robaxin) 500 mg tablet Take 1 tablet (500 mg) by mouth 3 times a day as needed for muscle spasms. 90 tablet 0 metoprolol tartrate (Lopressor) 50 mg tablet Take 1 tablet by mouth 2 times a day. 60 tablet 5 montelukast (Singulair) 10 mg tablet Take 1 tablet (10 mg) by mouth once daily at bedtime. 90 tablet 3 nebulizers misc 1 each. nystatin (Mycostatin) 100,000 unit/gram powder Apply topically 2 times a day. nystatin (Mycostatin) 100,000 unit/gram powder Apply 1 Application topically 3 times a day. 1 g 0 omeprazole (PriLOSEC) [address] capsule Take 1 capsule (40 mg) by mouth once daily in the morning. Take before meals. 90 capsule 3 ondansetron ODT (Zofran-ODT) 4 mg disintegrating tablet Take 1 tablet (4 mg) by mouth every 4 hours if needed for nausea or vomiting. pen needle, diabetic (BD Ultra-Fine Short Pen Needle) 31 gauge x 5/16 needle USE DIRECTED 100 each 3 potassium chloride CR (Klor-Con) 10 mEq ER tablet Take 1 tablet (10 mEq) by mouth once daily. promethazine (Phenergan) 25 mg tablet Take 1 tablet (25 mg) by mouth every 8 hours if needed for nausea or vomiting. 30 tablet 0 semaglutide 2 mg/dose (8 mg/3 mL) pen injector Inject 2 mg under the skin 1 (one) time per week. 9 mL 3 sertraline (Zoloft) 50 mg tablet Take 1 tablet (50 mg) by mouth once daily. 90 tablet 3 tiotropium (Spiriva with HandiHaler) [address] 1 capsule (18 mcg) into inhaler and inhale once daily. tiZANidine (Zanaflex) 4 mg tablet 1 tablet (4 mg) every 6 hours if needed. traZODone (Desyrel) 100 mg tablet Take 1 tablet (100 mg) by mouth once daily at bedtime. 90 tablet 3 [DISCONTINUED] pen needle, diabetic (BD Ultra-Fine Short Pen Needle) 31 gauge x 5/16 needle USE DIRECTED 100 each 3 No current facility-administered medications on file prior to visit. HISTORICAL PHARMACOTHERAPY -Albuterol Rescue Inhaler -Spiriva Handihaler -Breztri Aerosphere -DuoNebs Nebulization Solution -Advair Inhaler DRUG INTERATIONS - Breztri+ DuoNebs+ Spirva Handihaler= X Interaction (duplicate anticholinergic therapy) Assessment/Plan Problem List Items Addressed This Visit COPD (chronic obstructive pulmonary disease) ([facility]) Diabetes mellitus with stage 3 chronic kidney disease ([facility]) Last Visit Summary: Clarified insulin and Ozempic doses w/PCP, Callie Mcdonough PA-C Lantus Solostar 45 units BID Ozempic 2mg weekly Discussed applying for PAP for insulins and inhalers Instructed patient to continue her Breztri, Albuterol, and DuoNebs, but stop the Spiriva handihaler Assessment: No change in insulin or Ozempic doses No change in inhalers Does not need refills on medications or testing supplies at this time Discussed ways of completing and forwarding necessary forms for PAP application Plan: Patient asked to shorten the visit since she was not feeling well and in a lot of pain Asked that follow-up be scheduled farther out, since she is scheduled for surgery beginning of June Will schedule follow-up for second week of June for PAP No changes made to medication regimen at this time Danitza Arroyo RPh Verbal consent to manage patient's drug therapy was obtained from the patient. They were informed they may decline to participate or withdraw from participation in pharmacy services at any time. documented in this encounter [facility] Work Phone: 05-25-2023 History of Present illness Narrative Subjective Reason for Visit: Janelle Pickett is an 67 y.o. female here for a Medicare Wellness visit. Past Medical, Surgical, and Family History reviewed and updated in chart. Reviewed all medications by prescribing practitioner or clinical pharmacist (such as prescriptions, OTCs, herbal therapies and supplements) and documented in the medical record. Advanced Care Planning Diagnosis, treatment and prognosis discussed with patient. Patient has capacity to make his/her own decision. Patient DOES NOT have a living will. Patient is advised to set one up and bring a copy of this documenation for the chart. >16 min spent with patient counseling HPI Subsequent Medicare wellness Labs - not done FU cardio concerns [facility] 04/13/23 through 04/14/23 Tachycardia, SOB, COPD exacerbation - discharged on zpack Cardio recommended losartan 25 and lorpressor 50 bid but never started as her heart rate normalized in the hosp Discussed follow up for further eval of TSH (elevated), monitor BP, HR and follow up with ortho as scheduled- scheduled to see Perri daley 04/18/23 Echo done Apr 13, 2023 Venous doppler Apr 13 2023- neg DVT Denies cardio visit scheduled out patient Pt states BP during the day on [address] but then evening around 7 PM seems to spike to 140-160s. When this high she notes CP and palpitations, SOB. Pt states her HR stays elevated all night until maybe noon the next day then normalizes but then flares up again in the evening. She did have GI issues prior to this but in gen have since resolved Monitor was done sinus rhythm, non sustained Vtach - longest 12 beast, no symptoms reported done Apr 2022 Overall patient states she is doing well and no concerns She has been started on BB and we discussed consider referral to cardio in the past Since start BB denies symptoms or concerns Pt denies seeing cardio in at least a few years - prior cardio was in [place] - Dr naylor - arterial doppler has been done in 2019 - WNL and no change when she was on pletal at that time Pt is set for L knee replacement scheduled for june 09 Pt states she believes her ortho is managing the pre-op and denies needing anything from us at this time Med check DM - lantus and ozempic - last a1c was maybe 3 months - stable not seeing endo R aderenal adenoma renal insuff - stable monitored with labs - not seeing neph COPD- advair, rescue inhaler- stable not seeing pulm cirrhosis of the Liver - denies seeing bobbin collector in the past - denies alcohol current or past and denies known hx of hep - believes was dx with fatty liver pain - Back - pain clinic - knee - xray only- injection but little relief. is not to goal with meds - ortho GERD - on meds depression - on meds B12 - every other day Vit D - 2/week Mag - tid Hypothyroid - 50 mcg daily Hyperchol - on statin - consider inc but given other adjustments will cont same for now DM management Lantus - 35 units BID Ozempic weekly Morning - checking BS bid GI concerns Last followed with Dr heath in august 2022 - complex GI hx with constipation and gallbladder issues - saw the surgeon but did not wish to do surgery and did not feel that was the cause of her symptoms at that time. Question if this is more cirrhosis related - additional testing was ordered and to take linzess. has not completed the additional work up or followed up with dr kilgore since Pulm concerns- previously Changed advair and spiriva to bretri Will set up additional testing - overnight and 6 min Has not done Hx of being on 02 but has not been on this d/t cost Preventative Mammo - MAY 2023 DEXA- MAY 2023 - WNl Colonoscopy [place] 2020 - norm repeat in 10 year - [facility] Depression - PHQ2 NEG Apr 2023 - known depression stable Fall - NEG Apr 2023 Tobacco - cont to smoke started age 21 and amt has varied but always at least 1/2 ppd - at least 20 pack year hx discussed low dose lung cancer CT screen - declines at this time but will call if she changes her mind discussed patch, wellbutrin, chantix - declines at ths time but will call if she changes he rmind I have counselled patient about need for smoking/tobacco cessation and how I can support efforts when patient is ready to quit. Discussed nicotine replacement therapy, Varenicline, Bupropion, hypnosis, support groups, and acupuncture as potential options. Patient currently has no signs or symptoms of tobacco related disease. 3-10 min spent counseling Patient Care Team: Callie Mcdonough PA-C as PCP - General Shadia Daley APRN-EVERARDO as PCP - O Medicare Advantage PCP Gretel Fischer CMA as Hydro Generation Supervisor (Case Management) Review of Systems Constitutional: Positive for fatigue. Negative for chills and fever. HENT: Negative for congestion, rhinorrhea, sinus pain, sore throat and tinnitus. Eyes: Negative for discharge, redness and visual disturbance. Respiratory: Positive for cough and shortness of breath. Negative for chest tightness and wheezing. Cardiovascular: Negative for chest pain, palpitations and leg swelling. Gastrointestinal: Negative for abdominal pain, constipation, diarrhea, nausea and vomiting. Endocrine: Negative for cold intolerance and heat intolerance. Genitourinary: Negative for flank pain, frequency and urgency. Musculoskeletal: Positive for arthralgias and back pain. Negative for gait problem and neck pain. Skin: Negative for rash and wound. Neurological: Negative for dizziness, tremors, syncope, numbness and headaches. Hematological: Does not bruise/bleed easily. Psychiatric/Behavioral: Negative for confusion, sleep disturbance and suicidal ideas. Objective Vitals: BP 134/76 Pulse 68 Ht 1.575 m (5' 2 ) Wt 103 kg (228 lb) LMP (LMP Unknown) SpO2 93% BMI 41.70 kg/m Physical Exam Vitals reviewed. Constitutional: Appearance: Normal appearance. She is obese. HENT: Head: Normocephalic. Right Ear: External ear normal. Left Ear: External ear normal. Nose: Nose normal. No congestion or rhinorrhea. Mouth/Throat: Mouth: Mucous membranes are moist. Eyes: Extraocular Movements: Extraocular movements intact. Conjunctiva/sclera: Conjunctivae normal. Pupils: Pupils are equal, round, and reactive to light. Cardiovascular: Rate and Rhythm: Normal rate and regular rhythm. Pulses: Normal pulses. Pulmonary: Effort: Pulmonary effort is normal. Breath sounds: Normal breath sounds. Abdominal: General: Bowel sounds are normal. Palpations: Abdomen is soft. Tenderness: There is no abdominal tenderness. There is no right CVA tenderness or left CVA tenderness. Musculoskeletal: General: No tenderness. Normal range of motion. Cervical back: Normal range of motion and neck supple. No tenderness. Skin: General: Skin is warm and dry. Neurological: General: No focal deficit present. Mental Status: She is alert and oriented to person, place, and time. Psychiatric: Mood and Affect: Mood normal. Behavior: Behavior normal. Testing Reviewed labs on file Reviewed labs ordered Impression MDM 1) COMPLEXITY: MORE THAN 1 STABLE CHRONIC CONDITION ADDRESSED 2)DATA: TESTS INTERPRETED AND OR ORDERED, TOOK INDEPENDENT HISTORY OR RECORDS REVIEWED 3)RISK: MODERATE RISK DUE TO NATURE OF MEDICAL CONDITIONS/COMORBIDITY OR MEDICATIONS ORDERED OR SURGICAL OR PROCEDURE REFERRAL, . Reviewed labs and Testing on file Patient to follow diet low in cholesterol, fat, and sodium. Patient is advised to increase Exercise. Patient is recommended to lose weight. Reviewed Meds and discussed common side effects Continue as directed Patient is strongly advised to be compliant with recommendations. Return to Clinic sooner if needed. Patient denies further questions/concerns at this time Assessment/Plan Problem List Items Addressed This Visit Cirrhosis of liver ([facility]/HCC) COPD (chronic obstructive pulmonary disease) ([facility]/HCC) Depression, major, recurrent, moderate ([facility]/HCC) Hypertension associated with diabetes ([facility]/HCC) Diabetes mellitus with stage 3 chronic kidney disease ([facility]) Relevant Medications pen needle, diabetic (BD Ultra-Fine Short Pen Needle) 31 gauge x 5/16 needle Other Relevant Orders Albumin , Urine Random CBC and Auto Differential Comprehensive Metabolic Panel Hemoglobin A1C Magnesium Acquired hypothyroidism Relevant Orders Thyroid Stimulating Hormone Thyroxine, Free Low vitamin B12 level Relevant Orders Vitamin B12 Vitamin D deficiency Relevant Orders Vitamin D 25-Hydroxy,Total (for eval of Vitamin D levels) Class 3 severe obesity due to excess calories with serious comorbidity and body mass index (BMI) of 40.0 to 44.9 in adult ([facility]/HCC) Arthritis of left knee Adenoma of right adrenal gland Other Visit Diagnoses Medicare annual wellness visit, subsequent - Primary Routine general medical examination at health care facility Advanced care planning/counseling discussion FU after 02 testing Previously ordered overnight and 6 min walk - I am not sure if order still active - I want her to have done given her history of hypoxia, fatigue, SOB FU in 3 mo with labs at [facility] fasting and med check documented in this encounter [facility] Work Phone: 05-20-2023 History of Present illness Narrative Images from the original note were not included. History of Present Illness No chief complaint on file. Patient with known osteoarthritis of the side: left knee who presents today for repeat evaluation. The patient notes worsening knee pain. The patient notes worsening mechanical symptoms. The patient has tried the following modalities Rest, ice, elevation, Tylenol, NSAIDS, and Injections. Past Medical History: Diagnosis Date Fall 04/01/2022 Comment on above: FALL H/O mammogram 2021 2021-NORMAL- [facility] Influenza vaccination declined 11/2021 Pap smear for cervical cancer screening 02/2022- NORMAL- DONE AT [address] [place] [address] Medication Documentation Review Audit Reviewed by JYOTHI Whitten (Nurse Practitioner) on 05/09/23 at 0759 Medication Order Taking? Sig Documenting Provider Last Dose Status albuterol 90 mcg/actuation inhaler [id number] No Inhale 2 puffs every 6 hours if needed for wheezing or shortness of breath. Historical Provider, Taking Active atorvastatin (Lipitor) 20 mg tablet [id number] No Take 1 tablet (20 mg) by mouth once daily. Callie Mcdonough PA-C Taking Active Autolet lancing device [id number] No 1 each if needed. Use as instructed Historical ProviderMD Taking Active blood sugar diagnostic (Rescale Verio test strips) strip [id number] No 1 each 2 times a day. Callie Mcdonough PA-C Taking Active vbooazbrbz-uhbitnna-bynbjrbkaa (Breztri Aerosphere) 160-9-4.8 mcg/actuation HFA aerosol inhaler [id number] No Inhale 2 puffs 2 times a day. Callie Mcdonough PA-C Taking Active Discontinued 05/03/23 1319 citalopram (CeleXA) 40 mg tablet [id number] No Take 1 tablet (40 mg) by mouth once daily. Callie Mcdonough PA-C Taking Active cyanocobalamin (Vitamin B-12) 1,000 mcg tablet [id number] No Take 1 tablet (1,000 mcg) by mouth every other day. Callie Mcdonough PA-C Taking Active cyclobenzaprine (Flexeril) 10 mg tablet [id number] No Take 1 tablet (10 mg) by mouth 3 times a day as needed for muscle spasms. Historical Provider, Taking Active diclofenac sodium (Voltaren) 1 % gel gel [id number] No once daily. Historical Provider, Taking Active dicyclomine (Bentyl) 20 mg tablet [id number] No Take 1 tablet (20 mg) by mouth 4 times a day as needed (Abd pain). Callie Mcdonough PA-C Taking Active docusate sodium (Colace) 100 mg capsule [id number] No Take 1 capsule (100 mg) by mouth 2 times a day as needed for constipation. Callie Mcdonough PA-C Taking Active DULoxetine (Cymbalta) [address] capsule [id number] No Take 1 capsule (20 mg) by mouth once daily. Callie Mcdonough PA-C Taking Active ergocalciferol (Vitamin D-2) 1.25 MG (04441 UT) capsule [id number] No Take 1 cap twice weekly (on separate days) Callie Mcdonough PA-C Taking Active FreeStyle glucose monitoring kit [id number] No 1 each 2 times a day as needed (hyperglycemia and hypoglycemia symptoms). Callie Mcdonough PA-C Taking Active gabapentin (Neurontin) 600 mg tablet [id number] No Take 1 tablet (600 mg) by mouth 3 times a day. Kelly Carrasco PA-C Taking Active ibuprofen 600 mg tablet [id number] No Take 1 tablet (600 mg) by mouth every 6 hours if needed. Historical Provider, Taking Active insulin glargine (Lantus Solostar U-100 Insulin) 100 unit/mL (3 mL) pen [id number] No Inject 40 units Subcutaneously BID Callie Mcdonough PA-C Taking Active insulin glargine (Lantus) 100 unit/mL (3 mL) pen [id number] No Inject 40 Units under the skin 2 times a day. Take as directed per insulin instructions. Callie Mcdonough PA-C Taking Active ipratropium-albuteroL (Duo-Neb) 0.5-2.5 mg/3 mL nebulizer solution [id number] No Inhale. Use 1 unit dose in nebulizer every 4 hours as needed Historical Provider, Taking Active lancets (OneTouch Delica Plus Lancet) 33 gauge misc [id number] No 1 each 2 times a day. Callie Mcdonough PA-C Taking Active levothyroxine (Synthroid, Levoxyl) 50 mcg tablet [id number] No Take 1 tablet (50 mcg) by mouth once daily. Callie Mcdonough PA-C Taking Active linaCLOtide (Linzess) 145 mcg capsule [id number] No Take 1 capsule (145 mcg) by mouth once daily in the morning. Take before meals. Callie Mcdonough PA-C Taking Active magnesium oxide (Mag-Ox) 400 mg tablet [id number] No Take 1 tablet (400 mg) by mouth 3 times a day. Callie Mcdonough PA-C Taking Differently Active methocarbamol (Robaxin) 500 mg tablet [id number] No Take 1 tablet (500 mg) by mouth 3 times a day as needed for muscle spasms. Kelly Carrasco PA-C Taking Active metoprolol tartrate (Lopressor) 50 mg tablet [id number] No Take 1 tablet by mouth 2 times a day. Callie Mcdonough PA-C Taking Active montelukast (Singulair) 10 mg tablet [id number] No Take 1 tablet (10 mg) by mouth once daily at bedtime. Callie Mcdonough PA-C Taking Active nebulizers misc [id number] No 1 each. Historical Provider, Taking Active nystatin (Mycostatin) 100,000 unit/gram powder [id number] No Apply topically 2 times a day. Historical Provider, Not Taking Active nystatin (Mycostatin) 100,000 unit/gram powder [id number] No Apply 1 Application topically 3 times a day. JYOTHI Burrell Taking Active omeprazole (PriLOSEC) [address] capsule [id number] No Take 1 capsule (40 mg) by mouth once daily in the morning. Take before meals. Callie Mcdonough PA-C Taking Active ondansetron ODT (Zofran-ODT) 4 mg disintegrating tablet [id number] No Take 1 tablet (4 mg) by mouth every 4 hours if needed for nausea or vomiting. Historical Provider, Taking Active pen needle, diabetic (BD Ultra-Fine Short Pen Needle) 31 gauge x 5/16 needle [id number] No USE DIRECTED Callie Mcdonough PA-C Taking Active potassium chloride CR (Klor-Con) 10 mEq ER tablet [id number] No Take 1 tablet (10 mEq) by mouth once daily. Historical Provider, Taking Active promethazine (Phenergan) 25 mg tablet [id number] No Take 1 tablet (25 mg) by mouth every 8 hours if needed for nausea or vomiting. Callie Mcdonough PA-C Taking Active semaglutide 2 mg/dose (8 mg/3 mL) pen injector [id number] No Inject 2 mg under the skin 1 (one) time per week. Callie Mcdonough PA-C Taking Active semaglutide 2 mg/dose (8 mg/3 mL) pen injector [id number] No Inject 2 mg under the skin 1 (one) time per week. Callie Mcdonough PA-C Taking Active sertraline (Zoloft) 50 mg tablet [id number] No Take 1 tablet (50 mg) by mouth once daily. Callie Mcdonough PA-C Taking Active tiotropium (Spiriva with HandiHaler) 18 mcg inhalation capsule [id number] No Place 1 capsule (18 mcg) into inhaler and inhale once daily. Historical Provider, Taking Active tiZANidine (Zanaflex) 4 mg tablet [id number] No 1 tablet (4 mg) every 6 hours if needed. Historical Provider, Not Taking Active traZODone (Desyrel) 100 mg tablet [id number] No Take 1 tablet (100 mg) by mouth once daily at bedtime. Callie Mcdonough PA-C Taking Active Allergies Allergen Reactions Gemfibrozil Other abd cramps Social History Socioeconomic History Marital status: Spouse name: Not on file Number of children: Not on file Years of education: Not on file Highest education level: Not on file Occupational History Not on file Tobacco Use Smoking status: Every Day Packs/day: .5 Types: Cigarettes Passive exposure: Current Smokeless tobacco: Never Vaping Use Vaping Use: Never used Substance and Sexual Activity Alcohol use: Not Currently Drug use: Never Sexual activity: Defer Other Topics Concern Not on file Social History Narrative Not on file Social Determinants of Health Financial Resource Strain: Low Risk (04/13/2023) Overall Financial Resource Strain (CARDIA) Difficulty of Paying Living Expenses: Not hard at all Food Insecurity: Not on file Transportation Needs: No Transportation Needs (04/13/2023) PRAPARE - Transportation Lack of Transportation (Medical): No Lack of Transportation (Non-Medical): No Physical Activity: Not on file Stress: Not on file Social Connections: Not on file Intimate Partner Violence: Not on file Housing Stability: Low Risk (04/13/2023) Housing Stability Vital Sign Unable to Pay for Housing in the Last Year: No Number of Places Lived in the Last Year: 1 Unstable Housing in the Last Year: No Past Surgical History: Procedure Laterality Date COLONOSCOPY 2020 [facility] - NORMAL REPEAT IN 10 YEARS OOPHORECTOMY 10/30/1999 OTHER SURGICAL HISTORY Bilateral MEDIAL BRANCH BLOCK - PETEY BLANCHARD (PAIN MANAGEMENT) BILAT- L4-S1 MBB OTHER SURGICAL HISTORY 12/25/2021 Medial branch block Review of Systems GENERAL: Negative for malaise, significant weight loss, fever MUSCULOSKELETAL: see HPI NEURO: Negative BMI 40 Exam side: left Knee: Skin healthy and intact No gross swelling or ecchymosis Alignment: moderate varus Effusion: mild ROM: -5 to 120 degrees Crepitance with range of motion No pain with motion of the hip Tenderness to palpation: medial Pain with patellar compression: No No laxity to valgus stress No laxity to varus stress Negative Hakeem s test Negative posterior drawer test negative Hunter s test Neurovascular exam normal distally 2+ DP pulse and good cap refill Imaging XR knee left 4+ views Status: Final result PACS Images - [id number] Show images for XR knee left 4+ views Signed by Signed Time Phone Pager Sharyn Carranza MD 04/04/2023 12:31 [id number] Exam Information Status Exam Begun Exam Ended Final 04/04/2023 12:18 04/04/2023 12:22 Study Result Narrative & Impression Interpreted By: Sharyn Carranza, STUDY: XR KNEE LEFT 4+ VIEWS; ; 04/04/2023 12:22 pm INDICATION: Signs/Symptoms:knee pain. COMPARISON: None. ACCESSION NUMBER(S): [id number] ORDERING CLINICIAN: BALBIR TAVARES FINDINGS: Minimal medial compartment narrowing. No acute fracture dislocation or bone lesion. No joint effusion. IMPRESSION: No acute findings. MACRO: None Signed by: Sharyn Carranza 04/04/2023 12:31 PM Dictation workstation: [id number] Assessment Patient with known osteoarthritis of the side: left knee Plan We reviewed an evidence-based approach to OA of the knee. We discussed past treatments as well options for future treatment. The patient has failed to improve with multiple non-operative modalities. There is increasing difficulty with activities of daily living and concern for falls. The patient is endorsing severe pain and disability. We had a lengthy discussion regarding total knee arthroplasty including the orthopaedic risks, including but not limited to, stiffness, infection, hematoma, early aseptic loosening, neurologic or vascular injury, clicking, difficulty kneeling and incomplete relief of pain. We reviewed the medical risks, including but not limited to, deep venous thrombosis, pulmonary embolism, and cardiovascular/pulmonary issues. We discussed the anticipated longevity of the implants and potential for revision surgery. We also discussed anticoagulation, rehabilitation goals, and the hospital course. We discussed the likelihood of opioid analgesics and risks associated with them. The next step is to obtain medical risk stratification and encouraged the pre-operative information seminar at the hospital. We are happy to provide assistance and counseling if the patient has any additional concerns. documented in this encounter [facility] Work Phone: 05-09-2023 Evaluation + Plan note Associated Problem(s): Diabetes mellitus with stage 3 chronic kidney disease ([facility]) Assessment: Current DM Medication Regimen: Lantus Solostar 100units/mL pen Patient reports using 45 units BID Per Aleksey Montano at [facility], last filled on 04/28 for 61 units daily Ozempic once weekly injection Per dispense report and chart review, last fill was for 8mg/3mL (2mg/dose) pen Patient reports she has the 4mg/3mL (1mg/dose) pen BG Testing/Readings: Tests 4-5 times per day (has One Touch glucometer) BG this AM: 160 BG Average (PM): 215 BG Overall Average: 245-250 Denies hypoglycemic Sx or events Last A1C7.1% (04/14/23) Medication Adherence/Compliance Patient poor historian Need clarification regarding DM medication doses Plan: Will reach out to PCP to clarify Insulin and Ozempic dosing Continue Lantus 45 units BID for now Continue current Ozempic dose for now Apply for [facility] Necessary forms will be mailed to patient to fill out Reviewed that patient will need to fill her medications during the interim period Follow-up in 3 weeks to assess progress of application [facility] Work Phone: 05-09-2023 Miscellaneous Notes Associated Problem(s): Diabetes mellitus with stage 3 chronic kidney disease ([facility]) Assessment: Current DM Medication Regimen: Lantus Solostar 100units/mL pen Patient reports using 45 units BID Per DustyAleksey at [facility], last filled on 04/28 for 61 units daily Ozempic once weekly injection Per dispense report and chart review, last fill was for 8mg/3mL (2mg/dose) pen Patient reports she has the 4mg/3mL (1mg/dose) pen BG Testing/Readings: Tests 4-5 times per day (has One Touch glucometer) BG this AM: 160 BG Average (PM): 215 BG Overall Average: 245-250 Denies hypoglycemic Sx or events Last A1C7.1% (04/14/23) Medication Adherence/Compliance Patient poor historian Need clarification regarding DM medication doses Plan: Will reach out to PCP to clarify Insulin and Ozempic dosing Continue Lantus 45 units BID for now Continue current Ozempic dose for now Apply for PAP Necessary forms will be mailed to patient to fill out Reviewed that patient will need to fill her medications during the interim period Follow-up in 3 weeks to assess progress of application Associated Problem(s): COPD (chronic obstructive pulmonary disease) ([facility]) Assessment: Current COPD Medication Regimen: Breztri 160-9-4.8mcg/act (2 puffs BID) Albuterol (PRN) DuoNebs 0.5-2.5mg/3mL Solution (PRN) Medication Compliance: Non-compliant with maintenance inhaler Was utilizing multiple inhalers Last visit instructed patient to discontinue Spiriva Patient reports that she has stopped using it Uses all inhalers on a PRN basis Affordability: Affording inhalers is a challenge Reviewed initial screening for PAP Plan: Continue the following COPD Medication Regimen: Breztri 160-9-4.8mcg/act (2 puffs BID) Albuterol (PRN) DuoNebs 0.5-2.5mg/3mL Solution (PRN) Apply for [facility] PAP Necessary forms will be mailed to patient to fill out Reviewed that patient will need to fill her medications during the interim period Follow-up in 3 weeks to assess progress of application documented in this encounter [facility] Work Phone: 05-09-2023 Evaluation + Plan note Associated Problem(s): COPD (chronic obstructive pulmonary disease) ([facility]) Assessment: Current COPD Medication Regimen: Breztri 160-9-4.8mcg/act (2 puffs BID) Albuterol (PRN) DuoNebs 0.5-2.5mg/3mL Solution (PRN) Medication Compliance: Non-compliant with maintenance inhaler Was utilizing multiple inhalers Last visit instructed patient to discontinue Spiriva Patient reports that she has stopped using it Uses all inhalers on a PRN basis Affordability: Affording inhalers is a challenge Reviewed initial screening for [facility] PAP Plan: Continue the following COPD Medication Regimen: Breztri 160-9-4.8mcg/act (2 puffs BID) Albuterol (PRN) DuoNebs 0.5-2.5mg/3mL Solution (PRN) Apply for [facility] PAP Necessary forms will be mailed to patient to fill out Reviewed that patient will need to fill her medications during the interim period Follow-up in 3 weeks to assess progress of application [facility] Work Phone: 05-09-2023 Evaluation + Plan note Associated Problem(s): Primary osteoarthritis of left knee We discussed symptom control with activity modifications, previously prescribed anti-inflammatory, Tylenol on a as needed basis. I encouraged range of motion and stretching as tolerated. We discussed treatments to date. Patient states her pain is poorly controlled with oral medications. Patient states no relief with cortisone injection nor viscosupplementation. Patient states she does her own home exercises, declined formal PT in the past. Patient is unsure if she is ever had a genicular block or an MRI of the knee. At this time, I am requesting MRI for advanced imaging and plan to follow-up with Dr. Styles for result review and treatment options.. She is in agreement with plan of care. This note was generated using GivU software. It may contain errors in wording, punctuation or spelling. [facility] Work Phone: 05-09-2023 Miscellaneous Notes Associated Problem(s): Primary osteoarthritis of left knee We discussed symptom control with activity modifications, previously prescribed anti-inflammatory, Tylenol on a as needed basis. I encouraged range of motion and stretching as tolerated. We discussed treatments to date. Patient states her pain is poorly controlled with oral medications. Patient states no relief with cortisone injection nor viscosupplementation. Patient states she does her own home exercises, declined formal PT in the past. Patient is unsure if she is ever had a genicular block or an MRI of the knee. At this time, I am requesting MRI for advanced imaging and plan to follow-up with Dr. Styles for result review and treatment options.. She is in agreement with plan of care. This note was generated using GivU software. It may contain errors in wording, punctuation or spelling. documented in this encounter [facility] Work Phone: 05-09-2023 History of Present illness Narrative Pharmacy Post-Discharge Visit Janelle Pickett is a 67 y.o. female was referred to Clinical Pharmacy Team to complete a post-discharge medication optimization and monitoring visit. The patient was referred for their COPD and Diabetes. Admission Date: 04/13/2023 Discharge Date: 04/14/2023 Referring Provider: Callie Mcdonough PA-C Patient poor medication historian. Discrepancy between recent fill history and reported dosing of Insulin and Ozempic. Utilizes several pharmacies which may be adding to confusion. Subjective Allergies Allergen Reactions Gemfibrozil Other abd clementineperri [id number] - [place], [place] - [address] [facility] [address] [facility] [id number] [facility] - [place], [place] - [address] [facility] [address] Social History Social History Narrative Not on file Notable Medication changes following discharge: Start: Azithromycin 500mg (1 tab PO once daily q24hrs x2 days) Stop: Stop Advair inhaler; Naproxen 500mg; Prednisone 10mg; Silver Sulfadiazine 1% cream. Change: N/A HPI COPD ASSESSMENT Rescue Inhaler Use: -How many times per week do you use your rescue inhale? ~3 Inhaler Technique: -How do you use your rescue inhaler? -PRN basis -How do you use your maintenance inhaler? -PRN basis Secondary Prevention (vaccines): -Influenza: Date [No] -PCV13: Date [ No] -PPSV23: Date [No] Sx Management: -Increased cough? yes -Increased sputum production? yes -Increased SOB? yes Exacerbation Hx: -When was your last hospitalization for an exacerbation? 04/13/2023 -When was the last time you were treated with antibiotics and/or steroids? 04/14/2023 Review of Systems Medication System Management: Affordability/Accessibility: Patient expressed concerns with affording her inhalers and insulins Adherence/Organization: Non-adherent with inhalers. Not reliable medication historian. Adverse Effects: Not addressed this visit Objective LMP (LMP Unknown) LAB Lab Results Component Value Date BILITOT 0.3 04/14/2023 CALCIUM 8.0 (L) 04/14/2023 CO2 28 04/14/2023 CL 103 04/14/2023 CREATININE 1.07 (H) 04/14/2023 GLUCOSE 129 (H) 04/14/2023 ALKPHOS 90 04/14/2023 K 4.0 04/14/2023 PROT 5.6 (L) 04/14/2023 NA 137 04/14/2023 AST 16 04/14/2023 ALT 17 04/14/2023 BUN 13 04/14/2023 ANIONGAP 10 04/14/2023 MG 1.78 04/14/2023 PHOS 4.0 04/13/2023 ALBUMIN 2.9 (L) 04/14/2023 LIPASE 35 10/18/2022 GFRF 67 10/18/2022 Lab Results Component Value Date TRIG 268 (H) 02/07/2023 CHOL 192 02/07/2023 LDLCALC 90 02/07/2023 HDL 48.0 02/07/2023 Lab Results Component Value Date HGBA1C 7.1 (H) 04/14/2023 Current Outpatient Medications on File Prior to Visit Medication Sig Dispense Refill insulin glargine (Lantus Solostar U-100 Insulin) 100 unit/mL (3 mL) pen Inject 40 units Subcutaneously BID 63 mL 3 albuterol 90 mcg/actuation inhaler Inhale 2 puffs every 6 hours if needed for wheezing or shortness of breath. atorvastatin (Lipitor) 20 mg tablet Take 1 tablet (20 mg) by mouth once daily. 90 tablet 3 Autolet lancing device 1 each if needed. Use as instructed blood sugar diagnostic (OneTouch Verio test strips) strip 1 each 2 times a day. 300 strip 3 yaxfgqpshj-dlgkkhqw-pdovjjowlr (Breztri Aerosphere) 160-9-4.8 mcg/actuation HFA aerosol inhaler Inhale 2 puffs 2 times a day. 10.7 g 5 citalopram (CeleXA) 40 mg tablet Take 1 tablet (40 mg) by mouth once daily. 90 tablet 3 cyanocobalamin (Vitamin B-12) 1,000 mcg tablet Take 1 tablet (1,000 mcg) by mouth every other day. 45 tablet 3 cyclobenzaprine (Flexeril) 10 mg tablet Take 1 tablet (10 mg) by mouth 3 times a day as needed for muscle spasms. diclofenac sodium (Voltaren) 1 % gel gel once daily. dicyclomine (Bentyl) 20 mg tablet Take 1 tablet (20 mg) by mouth 4 times a day as needed (Abd pain). 40 tablet 0 docusate sodium (Colace) 100 mg capsule Take 1 capsule (100 mg) by mouth 2 times a day as needed for constipation. 60 capsule 0 DULoxetine (Cymbalta) [address] capsule Take 1 capsule (20 mg) by mouth once daily. 90 capsule 3 ergocalciferol (Vitamin D-2) 1.25 MG (94020 UT) capsule Take 1 cap twice weekly (on separate days) 25 capsule 3 FreeStyle glucose monitoring kit 1 each 2 times a day as needed (hyperglycemia and hypoglycemia symptoms). 1 each 2 gabapentin (Neurontin) 600 mg tablet Take 1 tablet (600 mg) by mouth 3 times a day. 90 tablet 1 ibuprofen 600 mg tablet Take 1 tablet (600 mg) by mouth every 6 hours if needed. insulin glargine (Lantus) 100 unit/mL (3 mL) pen Inject 40 Units under the skin 2 times a day. Take as directed per insulin instructions. 21 mL 0 ipratropium-albuteroL (Duo-Neb) 0.5-2.5 mg/3 mL nebulizer solution Inhale. Use 1 unit dose in nebulizer every 4 hours as needed lancets (ResponseTap (formerly AdInsight)Touch Delica Plus Lancet) 33 gauge misc 1 each 2 times a day. 300 each 3 levothyroxine (Synthroid, Levoxyl) 50 mcg tablet Take 1 tablet (50 mcg) by mouth once daily. 90 tablet 3 linaCLOtide (Linzess) 145 mcg capsule Take 1 capsule (145 mcg) by mouth once daily in the morning. Take before meals. 90 capsule 3 magnesium oxide (Mag-Ox) 400 mg tablet Take 1 tablet (400 mg) by mouth 3 times a day. 270 tablet 3 methocarbamol (Robaxin) 500 mg tablet Take 1 tablet (500 mg) by mouth 3 times a day as needed for muscle spasms. 90 tablet 0 metoprolol tartrate (Lopressor) 50 mg tablet Take 1 tablet by mouth 2 times a day. 60 tablet 5 montelukast (Singulair) 10 mg tablet Take 1 tablet (10 mg) by mouth once daily at bedtime. 90 tablet 3 nebulizers misc 1 each. nystatin (Mycostatin) 100,000 unit/gram powder Apply topically 2 times a day. nystatin (Mycostatin) 100,000 unit/gram powder Apply 1 Application topically 3 times a day. 1 g 0 omeprazole (PriLOSEC) [address] capsule Take 1 capsule (40 mg) by mouth once daily in the morning. Take before meals. 90 capsule 3 ondansetron ODT (Zofran-ODT) 4 mg disintegrating tablet Take 1 tablet (4 mg) by mouth every 4 hours if needed for nausea or vomiting. pen needle, diabetic (BD Ultra-Fine Short Pen Needle) 31 gauge x 5/16 needle USE DIRECTED 100 each 3 potassium chloride CR (Klor-Con) 10 mEq ER tablet Take 1 tablet (10 mEq) by mouth once daily. promethazine (Phenergan) 25 mg tablet Take 1 tablet (25 mg) by mouth every 8 hours if needed for nausea or vomiting. 30 tablet 0 semaglutide 2 mg/dose (8 mg/3 mL) pen injector Inject 2 mg under the skin 1 (one) time per week. 9 mL 3 semaglutide 2 mg/dose (8 mg/3 mL) pen injector Inject 2 mg under the skin 1 (one) time per week. 3 mL 0 sertraline (Zoloft) 50 mg tablet Take 1 tablet (50 mg) by mouth once daily. 90 tablet 3 tiotropium (Spiriva with HandiHaler) [address] 1 capsule (18 mcg) into inhaler and inhale once daily. tiZANidine (Zanaflex) 4 mg tablet 1 tablet (4 mg) every 6 hours if needed. traZODone (Desyrel) 100 mg tablet Take 1 tablet (100 mg) by mouth once daily at bedtime. 90 tablet 3 [DISCONTINUED] cilostazol (Pletal) 50 mg tablet Take 1 tablet (50 mg) by mouth 2 times a day. FROM [facility] [employer] [address] No current facility-administered medications on file prior to visit. HISTORICAL PHARMACOTHERAPY -Albuterol Rescue Inhaler -Spiriva Handihaler -Breztri Aerosphere -DuoNebs Nebulization Solution -Advair Inhaler DRUG INTERATIONS - Breztri+ DuoNebs+ Spirva Handihaler= X Interaction (duplicate anticholinergic therapy) Assessment/Plan Problem List Items Addressed This Visit COPD (chronic obstructive pulmonary disease) ([facility]) - Primary Assessment: Current COPD Medication Regimen: Breztri 160-9-4.8mcg/act (2 puffs BID) Albuterol (PRN) DuoNebs 0.5-2.5mg/3mL Solution (PRN) Medication Compliance: Non-compliant with maintenance inhaler Was utilizing multiple inhalers Last visit instructed patient to discontinue Spiriva Patient reports that she has stopped using it Uses all inhalers on a PRN basis Affordability: Affording inhalers is a challenge Reviewed initial screening for PAP Plan: Continue the following COPD Medication Regimen: Breztri 160-9-4.8mcg/act (2 puffs BID) Albuterol (PRN) DuoNebs 0.5-2.5mg/3mL Solution (PRN) Apply for PAP Necessary forms will be mailed to patient to fill out Reviewed that patient will need to fill her medications during the interim period Follow-up in 3 weeks to assess progress of application Relevant Orders Follow Up In Clinical Pharmacy Diabetes mellitus with stage 3 chronic kidney disease ([facility]) Assessment: Current DM Medication Regimen: Lantus Solostar 100units/mL pen Patient reports using 45 units BID Per Dusty, Aleksey at [facility], last filled on 04/28 for 61 units daily Ozempic once weekly injection Per dispense report and chart review, last fill was for 8mg/3mL (2mg/dose) pen Patient reports she has the 4mg/3mL (1mg/dose) pen BG Testing/Readings: Tests 4-5 times per day (has One Touch glucometer) BG this AM: 160 BG Average (PM): 215 BG Overall Average: 245-250 Denies hypoglycemic Sx or events Last A1C7.1% (04/14/23) Medication Adherence/Compliance Patient poor historian Need clarification regarding DM medication doses Plan: Will reach out to PCP to clarify Insulin and Ozempic dosing Continue Lantus 45 units BID for now Continue current Ozempic dose for now Apply for PAP Necessary forms will be mailed to patient to fill out Reviewed that patient will need to fill her medications during the interim period Follow-up in 3 weeks to assess progress of application Relevant Orders Follow Up In Clinical Pharmacy Danitza Arroyo RPh Verbal consent to manage patient's drug therapy was obtained from the patient. They were informed they may decline to participate or withdraw from participation in pharmacy services at any time. documented in this encounter [facility] Work Phone: 01-29-2024 History of Present illness Narrative Subjective Patient ID: Janelle Pickett is a 67 y.o. female. Chief Complaint Patient presents with Left Knee - Pain, Follow-up Patient had Euflexxa injections into her left knee in January of 2023, she states she does not feel that they helped her at all. HPI: Janelle is a pleasant 67-year-old female presenting today for FUV L knee pain Sx are worsening over time with no new injury, + weather changes aggravated stiffness and pain Home exercises as tolerated Occas ibuprofen minimal relief Unable to take tylenol due to history of cirrhosis Voltaren no effect No relief with viscosupplementation in the past, minimal relief with cortisone injections. Patient unable to recall she has ever had an MRI of this knee, no genicular block in the past that the patient recalls Review of Systems Constitutional: Negative. HENT: Negative. Respiratory: Negative. Cardiovascular: Negative. Endocrine: Negative. Musculoskeletal: Positive for arthralgias. Skin: Negative. Neurological: Negative. Hematological: Negative. Psychiatric/Behavioral: Negative. Objective Left Knee Exam Tenderness The patient is experiencing tenderness in the lateral joint line and medial joint line (popliteal fossa). Range of Motion Extension: 0 Flexion: 90 Tests Hunter: Medial - negative Lateral - negative Varus: negative Valgus: negative Drawer: Anterior - negative Posterior - negative Other Erythema: absent Sensation: normal Pulse: present Swelling: moderate Comments: + aggravation of knee pain and palpable crepitus with ROM of ankle The distal motor and sensory intact, cap refill at 2 seconds. Image Results: 04/04/23 L knee: FINDINGS: Minimal medial compartment narrowing. No acute fracture dislocation or bone lesion. No joint effusion. IMPRESSION: No acute findings. Assessment/Plan Encounter Diagnoses: documented in this encounter [facility] Work Phone: 04-28-2023 History of Present illness Narrative Subjective Patient ID: Janelle Pickett is a 67 y.o. female who presents for Back Pain (Patient complains of pain in her lower back and radiating down her left leg to her foot. Patient states she gets swelling in the left leg from thigh to foot. Patient denied numbness or tingling. Patient rates her pain a 8/10 at this time. Patient states that the GPN increase has helped. She denied side effects.). Patient states she was recently hospitalized for tachycardia. She states her PCP put her on a new medication that has been keeping her heart rate down. Depression screen completed, negative. BMI NA due to age. Patient is a smoker, education handout provided to patient. PAULIE score 72 Patient is a 67-year-old female. She presents today for follow-up after an extended hiatus. She continues on gabapentin. 600 mg 3 times a day. She also continues on methocarbamol intermittently. This helps Patient underwent previous L5-S1 epidural steroid injection done on 09/17/2022 that gave her at least 50% relief. She feels that this is overall very beneficial. She has noticed that it has started to wear off though and her pain has increased to an 8/10. It is in the lower back and goes down the left greater than right leg. It goes down to her foot. She has been doing her physical therapy home exercise program without any relief. She has also tried OTC anti-inflammatory medication without any relief. She is on Pletal. She states that she has told the prescribing physician that she intermittently uses ibuprofen. She is not able to use Tylenol due to cirrhosis. Review of Systems Constitutional: Negative. HENT: Negative. Eyes: Negative. Respiratory: Negative. Cardiovascular: Negative. Gastrointestinal: Negative. Endocrine: Negative. Genitourinary: Negative. Musculoskeletal: Positive for arthralgias, back pain and gait problem. Skin: Negative. Allergic/Immunologic: Negative. Neurological: Positive for weakness and numbness. Hematological: Negative. Psychiatric/Behavioral: Negative. Objective Physical Exam Vitals and nursing note reviewed. Constitutional: Appearance: Normal appearance. She is obese. HENT: Head: Normocephalic and atraumatic. Right Ear: External ear normal. Left Ear: External ear normal. Nose: Nose normal. Mouth/Throat: Pharynx: Oropharynx is clear. Eyes: Pupils: Pupils are equal, round, and reactive to light. Cardiovascular: Rate and Rhythm: Normal rate and regular rhythm. Pulses: Normal pulses. Pulmonary: Effort: Pulmonary effort is normal. Musculoskeletal: General: Normal range of motion. Cervical back: Normal range of motion. Comments: 5/5 lower extremity strength other than left hip flexion, ADF and EHL 5 -/5 Skin: General: Skin is warm and dry. Neurological: General: No focal deficit present. Mental Status: She is alert and oriented to person, place, and time. Mental status is at baseline. Psychiatric: Mood and Affect: Mood normal. Behavior: Behavior normal. Thought Content: Thought content normal. Judgment: Judgment normal. MR lumbar spine wo IV contrast Status: Final result PACS Images Show images for MR lumbar spine wo IV contrast Signed by Signed Time Phone Pager Daiana Edwards, DO 11/20/2021 08:14 [id number] Exam Information Status Exam Begun Exam Ended Final 11/19/2021 14:36 11/19/2021 15:21 Study Result Narrative & Impression Patient Name: JANELLE PICKETT STUDY: MRI L-SPINE WO; 11/19/2021 3:21 pm INDICATION: lower back and leg pain NO TO MRI QUESTIONS M54.42: Chronic low back pain with left-sided sciatica, unspecified back pain laterality M48.061: Degenerative lumbar spinal stenosis M54.16: Lumbar radiculopathy, chronic. COMPARISON: Radiographs November 16, 2021 ACCESSION NUMBER(S): [id number] ORDERING CLINICIAN: KELLY CARRASCO TECHNIQUE: Sagittal T1, T2, STIR, axial T1 and T2 weighted images of the lumbar spine were acquired. FINDINGS: Alignment: There is subtle, grade 1 anterolisthesis of L4 on L5 and to a lesser extent of L5 on S1. Vertebrae/Intervertebral Discs: The vertebral bodies demonstrate expected height. The marrow signal is mildly inhomogeneous throughout on T1 weighted imaging. There are scattered ovoid foci of increased signal on T1 and T2 weighted imaging which may represent hemangiomas or focal fatty rests. There is multilevel disc desiccation and mild degenerative endplate spurring. Conus: The lower thoracic cord appears unremarkable. The conus terminates at L1-2. T12-L1: Minimal disc bulging does not narrow the central canal. L1-2: Minimal disc bulging and left greater than right degenerative facet arthropathy do not narrow the central canal or neuroforamina. L2-3: There is no significant central canal or neural foraminal stenosis. L3-4: Minimal disc bulging and facet and ligamentum flavum hypertrophy do not narrow the central canal or neuroforamina. L4-5: Facet and ligamentum flavum hypertrophy mildly impress on the posterior thecal sac. There is mild circumferential disc bulging asymmetric to the left producing narrowing of the lateral recesses, left greater than right and mild flattening of the ventral thecal sac. There is mild left sided neuroforaminal stenosis. The right neuroforamen is patent . L5-S1: Mild circumferential disc bulging and endplate spurring and degenerative facet arthropathy contribute to mild neuroforaminal stenosis. There is no significant narrowing of the central canal. The prevertebral and posterior paraspinous soft tissues are unremarkable. There is a small left renal lesion favored to represent a cyst. There is a partially imaged right adrenal lesion measuring approximately 16 mm. IMPRESSION: Mild degenerative changes of the lumbar spine primarily involving L4-5 and L5-S1. Indeterminate right adrenal lesion, incompletely included on the obtained [id number]. CT washout study or MRI with in and out of phase imaging is recommended for evaluation. A Yellow Alert message was sent to the referring physician Dr. KELLY CARRASCO through the [email or web address] system at 8:14 am on 11/20/[address]Jennifer Edwards Assessment/Plan Diagnoses and all orders for this visit: Lumbar radiculopathy, chronic Degenerative lumbar spinal stenosis Degenerative disc disease at L5-S1 level Arthritis of facet joint of lumbar spine Patient is a 67-year-old female with a past medical history significant for lumbar neuritis, lumbar stenosis, lumbar degenerative disease and lumbar spondylosis. Previous L5-S1 epidural steroid injection done over 6 months ago gave her significant relief. We once again reviewed her imaging. Based on her imaging findings, her pain pattern, her failure to improve with previous conservative treatments and the significant response she got from the previous epidural I recommended repeating the L5-S1 epidural steroid injection under fluoroscopy for both diagnostic and therapeutic purposes. Diagnosis M54.16-lumbar neuritis. Procedure was discussed. Risks and benefits were discussed. Patient is agreeable. She will follow-up 2 weeks after the injection for reevaluation. Call clinic sooner if necessary. Medication hold including Pletal for 2 days before procedure, Hold vitamins and supplements for 1 week and Hold Ibuprofen for 1 day was discussed. In the meantime she will continue on gabapentin and methocarbamol. OARRS reviewed. Refill sent to the pharmacy. documented in this encounter [facility] Work Phone: 04-28-2023 Instructions Faviola Hughes RN - 04/28/2023 8:45 AM EST Injection education completed written and verbally. documented in this encounter [facility] Work Phone: 04-14-2023 Nurse Note Discharge Note: 04/14/20221310 Discharge instructions and pt responsibilities reviewed with pt and copy given. Tachycardia education reviewed with pt and information sheets given. Pt verbalizes understanding of instructions received, verbalizes understanding of when to seek medical attention, denies any home going or personal care needs. Denies further questions or concerns. Reviewed follow up appts with pt and verbalizes understanding. Jonathan MOSQUEDA [facility] 04-14-2023 Nurse Note Discharge Note: 04/14/20221310 Discharge instructions and pt responsibilities reviewed with pt and copy given. Tachycardia education reviewed with pt and information sheets given. Pt verbalizes understanding of instructions received, verbalizes understanding of when to seek medical attention, denies any home going or personal care needs. Denies further questions or concerns. Reviewed follow up appts with pt and verbalizes understanding. Jonathan MOSQUEDA documented in this encounter [facility] Work Phone: 04-14-2023 Hospital course Narrative Discharge Diagnosis Tachycardia Issues Requiring Follow-Up Tachycardia SOB COPD exacerbation Discharge Meds Your medication list START taking these medications Instructions Last Dose Given Next Dose Due azithromycin 500 mg tablet Commonly known as: Zithromax Start taking on: April 15, 2023 Take 1 tablet (500 mg) by mouth once every 24 hours for 2 days. Do not start before April 15, 2023. CONTINUE taking these medications Instructions Last Dose Given Next Dose Due albuterol 90 mcg/actuation inhaler atorvastatin 20 mg tablet Commonly known as: Lipitor Take 1 tablet (20 mg) by mouth once daily. Autolet lancing device El Aerosphere 160-9-4.8 mcg/actuation HFA aerosol inhaler Generic drug: pjhkiexiff-nhtottcz-fzaccgvgus Inhale 2 puffs 2 times a day. cilostazol 50 mg tablet Commonly known as: Pletal citalopram 40 mg tablet Commonly known as: CeleXA Take 1 tablet (40 mg) by mouth once daily. cyanocobalamin 1,000 mcg tablet Commonly known as: Vitamin B-12 Take 1 tablet (1,000 mcg) by mouth every other day. cyclobenzaprine 10 mg tablet Commonly known as: Flexeril diclofenac sodium 1 % gel gel Commonly known as: Voltaren dicyclomine 20 mg tablet Commonly known as: Bentyl Take 1 tablet (20 mg) by mouth 4 times a day as needed (Abd pain). docusate sodium 100 mg capsule Commonly known as: Colace Take 1 capsule (100 mg) by mouth 2 times a day as needed for constipation. DULoxetine [address] capsule Commonly known as: Cymbalta Take 1 capsule (20 mg) by mouth once daily. ergocalciferol 1.25 MG (86975 UT) capsule Commonly known as: Vitamin D-2 Take 1 cap twice weekly (on separate days) FreeStyle glucose monitoring kit 1 each 2 times a day as needed (hyperglycemia and hypoglycemia symptoms). gabapentin 600 mg tablet Commonly known as: Neurontin ibuprofen 600 mg tablet insulin glargine 100 unit/mL (3 mL) pen Commonly known as: Lantus Solostar U-100 Insulin Inject 40 units Subcutaneously BID ipratropium-albuteroL 0.5-2.5 mg/3 mL nebulizer solution Commonly known as: Duo-Neb lancets 33 gauge misc Commonly known as: OneTouch Delica Plus Lancet 1 each 2 times a day. levothyroxine 50 mcg tablet Commonly known as: Synthroid, Levoxyl Take 1 tablet (50 mcg) by mouth once daily. linaCLOtide 145 mcg capsule Commonly known as: Linzess Take 1 capsule (145 mcg) by mouth once daily in the morning. Take before meals. magnesium oxide 400 mg tablet Commonly known as: Mag-Ox Take 1 tablet (400 mg) by mouth 3 times a day. methocarbamol 500 mg tablet Commonly known as: Robaxin montelukast 10 mg tablet Commonly known as: Singulair Take 1 tablet (10 mg) by mouth once daily at bedtime. nebulizers misc nystatin 100,000 unit/gram powder Commonly known as: Mycostatin omeprazole [address] capsule Commonly known as: PriLOSEC Take 1 capsule (40 mg) by mouth once daily in the morning. Take before meals. ondansetron ODT 4 mg disintegrating tablet Commonly known as: Zofran-ODT ResponseTap (formerly AdInsight)ToSaveFans! Verio test strips strip Generic drug: blood sugar diagnostic 1 each 2 times a day. pen needle, diabetic 31 gauge x 5/16 needle Commonly known as: BD Ultra-Fine Short Pen Needle USE DIRECTED potassium chloride CR 10 mEq ER tablet Commonly known as: Klor-Con promethazine 25 mg tablet Commonly known as: Phenergan Take 1 tablet (25 mg) by mouth every 8 hours if needed for nausea or vomiting. semaglutide 2 mg/dose (8 mg/3 mL) pen injector Inject 2 mg under the skin 1 (one) time per week. sertraline 50 mg tablet Commonly known as: Zoloft Take 1 tablet (50 mg) by mouth once daily. Spiriva with HandiHaler 18 mcg inhalation capsule Generic drug: tiotropium tiZANidine 4 mg tablet Commonly known as: Zanaflex traZODone 100 mg tablet Commonly known as: Desyrel Take 1 tablet (100 mg) by mouth once daily at bedtime. STOP taking these medications Advair HFA 230-21 mcg/actuation inhaler Generic drug: fluticasone propion-salmeteroL naproxen 500 mg tablet Commonly known as: Naprosyn predniSONE 10 mg tablet Commonly known as: Deltasone silver sulfADIAZINE 1 % cream Commonly known as: Silvadene Where to Get Your Medications These medications were sent to [id number] - [place], [place] - [address] [address] azithromycin 500 mg tablet Test Results Pending At Discharge Pending Labs No current pending labs. Hospital Course Janelle S Craft is a 67 y.o. female with past medical history of COPD, depression, diabetes mellitus with stage III chronic kidney disease, GERD, hypothyroidism, liver cirrhosis, obesity, vitamin D deficiency, osteoarthritis, hypomagnesia presenting with shortness of breath, dizziness and tachycardia to the emergency department this morning. Patient was previously admitted 1 week ago for similar complaints and then signed out AMA 1 day later. Vital signs on presentation to the ER temperature of 97.5, heart rate 153, respirations 16, blood pressure 132/79 and oxygen 94% on room air. Labs were significant of glucose 221, potassium 3.8, calcium 8.2, magnesium 1.17, BNP 65, troponin 7, D-dimer 741, white count 7.7, platelets 111. CT scan of the chest was performed that showed no evidence of pulmonary embolism, recent prior CT scan described bronchial wall thickening and a right upper lobe groundglass opacity suggesting bronchitis those findings have improved on the CT. EKG was done showed possible ectopic atrial tachycardia with heart rate [address] elevation or depression, normal axis. Patient then was admitted for further evaluation and monitoring of her tachycardia. Talking with the patient she states that approximately 1 week ago she was hospitalized with an elevated heart rate and signed out AMA. At that time patient was having significant nausea vomiting and diarrhea. She states that she did not feel well but that has overall improved. Her main concern was this morning when she checked her heart rate and it was over 150 and felt that she should come to the emergency department. Patient is also main complaint is having significant pain to the left lower extremity. Patient was scheduled to have an outpatient venous Doppler this morning. Was seen by cardiology who recommended starting losartan 25 mg daily and starting Lopressor 50 mg twice daily if heart rate remains elevated. Patient did not need initiation of losartan or metoprolol at this time as blood pressure returned within normal limits and heart rate is 60-70. Lower extremity Doppler negative for DVT. Echocardiogram done that showed EF of 60% and suboptimal image quality. Hemoglobin A1c returned at 7.1, TSH elevated 8.58 with T4 0.70. Patient is in fair condition and discharged home. Resume home meds except for naproxen and Advair. E scribed to [facility] pharmacy Zithromax 500 mg daily x 2 days starting in a.m. Patient will need follow-up with PCP in 1 week for elevated TSH and to monitor blood pressure and heart rate. Patient to keep existing appointment with orthopedics. Patient to follow-up with cardiology as needed Pertinent Physical Exam At Time of Discharge Physical Exam General Appearance: AAO x 3, not in acute distress Skin: skin color pink, warm, and dry; no suspicious rashes or lesions Eyes : PERRL, EOM's intact ENT: mucous membranes pink and moist Neck: normocephalic Respiratory: lungs clear with expiratory wheeze to right posterior lobe Heart: regular rate and rhythm. telemetry shows sinus rhythm Abdomen: Nondistended, positive bowel sounds x4, soft, nontender Extremities: non-pitting edema noted to left lower leg Peripheral pulses: normal x4 extremities Neuro: alert, coherent and conversant, no focal motor deficits Outpatient Follow-Up Future Appointments Date Time Provider Department Center 04/19/2023 9:00 AM JYOTHI Whitten [id number] [facility] 04/21/2023 10:15 AM Kane Kilgore DO [id number] [facility] 04/25/2023 9:00 AM MARIAH [id number] MAMMO [id number] [facility] 04/25/2023 9:50 AM MARIAH [id number] DXA [id number] [facility] 04/28/2023 8:45 AM Kelly Carrasco PA-C [id number] [facility] 05/09/2023 8:00 AM JYOTHI Whitten [id number] [facility] 05/25/2023 9:20 AM Callie Mcdonough PA-C [id number] [facility] JYOTHI Burrell documented in this encounter [facility] Work Phone: 04-14-2023 Hospital Discharge instructions JYOTHI Burrell - 04/14/2023 11:48 AM EST Discharge: Discharge home Resume home meds. Stop advair and naproxen Escribed to [facility] pharmacy Zithromax 500 mg daily x 2 days start in a.m. Follow-up with PCP 1 week Keep existing appointment with orthopedics Follow-up cardiology as needed Recommend monitoring blood pressure at home daily and record along with heart rates. Take this information with you to your follow-up appoint with your PCP Thank you for allowing [facility] to participate in your care. Return to the ER if symptoms worsen Linn Downing RN - 04/14/2023 12:35 PM EST Tachycardia Discharge Instructions About this topic Tachycardia is another word for a fast heartbeat. Your heart may beat faster than normal after you exercise. It can also beat faster than normal if you are stressed, worried, or afraid. Some kinds of drugs, caffeine, and tobacco can also give you a fast heartbeat. When the heart rate is fast at rest or usually fast with normal activities it could be a sign of a problem. What care is needed at home? Ask your doctor what you need to do when you go home. Make sure you understand everything the doctor says. This way you will know what you need to do. Check with your doctor before taking any hjov-[id number] drugs, nutritional supplements, or cold and allergy drugs. Learn how to check your pulse. Ask your doctor if you can use a smart watch or other wearable device at home to help you keep track of your heart rate and rhythm. What follow-up care is needed? Your doctor may ask you to make visits to the office to check on your progress. Your doctor may order a heart monitor. This is a device with stickers on your skin that you wear and which keeps track of your heart rhythm. Your doctor may order other tests to see if you have other heart problems related to your fast heart rate. Be sure to keep these visits. What drugs may be needed? The doctor may order drugs to: Keep your heartbeat normal and steady Treat the condition that causes your fast heartbeat Will physical activity be limited? Ask your doctor what activities or exercises are good for you. Exercise is good for your overall health. What problems could happen? Heart failure Chest pain Heart attack Stroke Damage to the heart, brain, or other organs Sudden What can be done to prevent this health problem? Limit drinks with caffeine. You should avoid alcohol, energy drinks, and hnxf-nfb-ununmvx stimulants. Learn to manage stress. Use relaxation methods like reflection, deep breathing, and muscle relaxation. Things like yoga and ramirez chi are also good. When do I need to call the doctor? Activate the emergency medical system right away if you have signs of a heart attack or stroke. Call 911 in the [place] or [place]. The sooner treatment begins, the better your chances for recovery. Call for emergency help right away if you have: Signs of heart attack: Chest pain Trouble breathing Fast heartbeat Feeling dizzy Signs of stroke: Sudden numbness or weakness of the face, arm, or leg, especially on one side of the body Sudden confusion, trouble speaking, or understanding Sudden trouble seeing in one or both eyes Sudden trouble walking, dizziness, loss of balance or coordination Sudden severe headache with no known cause Call your doctor if you have: Other problems with breathing. These include change in shortness of breath, wheezing, the need to sleep sitting up to breathe Blue or haley skin color Very bad sweating Pain, pressure, tightness, or heaviness in your chest, arm, neck, or jaw Very fast heartbeat Trouble breathing with exercise Teach Back: Helping You Understand The Teach Back Method helps you understand the information we are giving you. After you talk with the staff, tell them in your own words what you learned. This helps to make sure the staff has described each thing clearly. It also helps to explain things that may have been confusing. Before going home, make sure you are able to do these: I can tell you about my condition. I can tell you what changes I need to make with my diet, exercise, or drugs. I can tell you what I will do if I have signs of a heart attack or stroke. Last Reviewed Date 2021-02-13 documented in this encounter [facility] Work Phone: 04-13-2023 History and physical note History Of Present Illness Janelle Pickett is a 67 y.o. female with past medical history of COPD, depression, diabetes mellitus with stage III chronic kidney disease, GERD, hypothyroidism, liver cirrhosis, obesity, vitamin D deficiency, osteoarthritis, hypomagnesia presenting with shortness of breath, dizziness and tachycardia to the emergency department this morning. Patient was previously admitted 1 week ago for similar complaints and then signed out AMA 1 day later. Vital signs on presentation to the ER temperature of 97.5, heart rate 153, respirations 16, blood pressure 132/79 and oxygen 94% on room air. Labs were significant of glucose 221, potassium 3.8, calcium 8.2, magnesium 1.17, BNP 65, troponin 7, D-dimer 741, white count 7.7, platelets 111. CT scan of the chest was performed that showed no evidence of pulmonary embolism, recent prior CT scan described bronchial wall thickening and a right upper lobe groundglass opacity suggesting bronchitis those findings have improved on the CT. EKG was done showed possible ectopic atrial tachycardia with heart rate [address] elevation or depression, normal axis. Patient then was admitted for further evaluation and monitoring of her tachycardia. Talking with the patient she states that approximately 1 week ago she was hospitalized with an elevated heart rate and signed out AMA. At that time patient was having significant nausea vomiting and diarrhea. She states that she did not feel well but that has overall improved. Her main concern was this morning when she checked her heart rate and it was over 150 and felt that she should come to the emergency department. Patient is also main complaint is having significant pain to the left lower extremity. Patient was scheduled to have an outpatient venous Doppler this morning. Past Medical History Past Medical History: Diagnosis Date Fall 04/01/2022 Comment on above: FALL H/O mammogram 2021 2021-NORMAL- [facility] Influenza vaccination declined 11/2021 Pap smear for cervical cancer screening 02/2022- NORMAL- DONE AT [address] [place] [address] Surgical History Past Surgical History: Procedure Laterality Date COLONOSCOPY 2020 [facility] - NORMAL REPEAT IN 10 YEARS OOPHORECTOMY 10/30/1999 OTHER SURGICAL HISTORY Bilateral MEDIAL BRANCH BLOCK - PETEY BLANCHARD (PAIN MANAGEMENT) BILAT- L4-S1 MBB OTHER SURGICAL HISTORY 12/25/2021 Medial branch block Social History She reports that she has been smoking cigarettes. She has been smoking an average of .5 packs per day. She has never used smokeless tobacco. She reports current alcohol use. She reports that she does not use drugs. Family History Family History Problem Relation Name Age of Onset Aneurysm Mother Edema Father 1970 Other (MALIGNANT NEOPLASM) Brother Cancer Father's Sister 2-3 AUNTS ON FATHER SIDE Allergies Gemfibrozil Review of Systems Physical Exam Last Recorded Vitals Blood pressure 130/81, pulse (!) 125, temperature 36.2 C (97.2 F), resp. rate 20, height 1.549 m (5' 1 ), weight 97.1 kg (214 lb), SpO2 98 %. Relevant Results Scheduled medications atorvastatin, 20 mg, oral, Nightly budesonide, 0.5 mg, nebulization, BID cilostazol, 50 mg, oral, BID [START ON 04/14/2023] cyanocobalamin, 1,000 mcg, oral, Every other day DULoxetine, 20 mg, oral, Daily enoxaparin, 40 mg, subcutaneous, q12h ROGER escitalopram, 20 mg, oral, Nightly gabapentin, 600 mg, oral, TID insulin glargine, 30 Units, subcutaneous, BID insulin lispro, 0-15 Units, subcutaneous, TID with meals ipratropium-albuteroL, 3 mL, nebulization, q6h [START ON 04/14/2023] levothyroxine, 25 mcg, oral, Daily levothyroxine, 50 mcg, oral, Nightly [START ON 04/14/2023] linaCLOtide, 145 mcg, oral, Daily before breakfast montelukast, 10 mg, oral, Nightly nicotine, 1 patch, transdermal, Daily Followed by [START ON 05/25/2023] nicotine, 1 patch, transdermal, Daily Followed by [START ON 06/08/2023] nicotine, 1 patch, transdermal, Daily nystatin, 1 Application, Topical, TID polyethylene glycol, 17 g, oral, Daily traZODone, 100 mg, oral, Nightly Continuous medications sodium chloride 0.9%, 150 mL/hr, Last Rate: 150 mL/hr (04/13/23 1350) PRN medications PRN medications: acetaminophen OR acetaminophen OR acetaminophen, dextrose 10 % in water (D10W), dextrose, glucagon, insulin lispro Results for orders placed or performed during the hospital encounter of 04/13/23 (from the past 24 hour(s)) CBC and Auto Differential Result Value Ref Range WBC 7.7 4.4 - 11.3 x10*3/uL nRBC 0.0 0.0 - 0.0 /100 WBCs RBC 4.37 4.00 - 5.20 x10*6/uL Hemoglobin 13.4 12.0 - 16.0 g/dL Hematocrit 39.6 36.0 - 46.0 % MCV 91 80 - 100 fL MCH 30.7 26.0 - 34.0 pg MCHC 33.8 32.0 - 36.0 g/dL RDW 13.4 11.5 - 14.5 % Platelets 111 (L) 150 - 450 x10*3/uL Neutrophils % 68.7 40.0 - 80.0 % Immature Granulocytes %, Automated 1.0 (H) 0.0 - 0.9 % Lymphocytes % 22.1 13.0 - 44.0 % Monocytes % 7.3 2.0 - 10.0 % Eosinophils % 0.5 0.0 - 6.0 % Basophils % 0.4 0.0 - 2.0 % Neutrophils Absolute 5.28 1.20 - 7.70 x10*3/uL Immature Granulocytes Absolute, Automated 0.08 0.00 - 0.70 x10*3/uL Lymphocytes Absolute 1.70 1.20 - 4.80 x10*3/uL Monocytes Absolute 0.56 0.10 - 1.00 x10*3/uL Eosinophils Absolute 0.04 0.00 - 0.70 x10*3/uL Basophils Absolute 0.03 0.00 - 0.10 x10*3/uL Basic metabolic panel Result Value Ref Range Glucose 221 (H) 74 - 99 mg/dL Sodium 138 136 - 145 mmol/L Potassium 3.8 3.5 - 5.3 mmol/L Chloride 104 98 - 107 mmol/L Bicarbonate 26 21 - 32 mmol/L Anion Gap 12 10 - 20 mmol/L Urea Nitrogen 10 6 - 23 mg/dL Creatinine 0.97 0.50 - 1.05 mg/dL eGFR 65 >60 mL/min/1.73m*2 Calcium 8.2 (L) 8.6 - 10.3 mg/dL Magnesium Result Value Ref Range Magnesium 1.17 (L) 1.60 - 2.40 mg/dL Troponin I, High Sensitivity Result Value Ref Range Troponin I, High Sensitivity 7 0 - 13 ng/L B-Type Natriuretic Peptide Result Value Ref Range BNP 65 0 - 99 pg/mL D-Dimer, Quantitative Non VTE Result Value Ref Range D-Dimer Non VTE, Quant (ng/mL FEU) 741 (H) <=500 ng/mL FEU Protime-INR Result Value Ref Range Protime 12.2 9.8 - 12.8 seconds INR 1.1 0.9 - 1.1 APTT Result Value Ref Range aPTT 32 27 - 38 seconds ECG 12 lead Result Value Ref Range Ventricular Rate 152 BPM Atrial Rate 152 BPM OH Interval 124 ms QRS Duration 60 ms QT Interval 258 ms QTC Calculation(Bazett) 410 ms P Alpine 265 degrees R Alpine 33 degrees T Alpine 83 degrees QRS Count 25 beats Q Onset 232 ms P Onset 170 ms P Offset 226 ms T Offset 361 ms QTC Fredericia 351 ms POCT GLUCOSE Result Value Ref Range POCT Glucose 155 (H) 74 - 99 mg/dL POCT GLUCOSE Result Value Ref Range POCT Glucose 82 74 - 99 mg/dL Magnesium Result Value Ref Range Magnesium 2.13 1.60 - 2.40 mg/dL Phosphorus Result Value Ref Range Phosphorus 4.0 2.5 - 4.9 mg/dL TSH with reflex to Free T4 if abnormal Result Value Ref Range Thyroid Stimulating Hormone 8.58 (H) 0.44 - 3.98 mIU/L Thyroxine, Free Result Value Ref Range Thyroxine, Free 0.70 0.61 - 1.12 ng/dL Transthoracic Echo (TTE) Complete Result Value Ref Range BSA 2.04 m2 Lower extremity venous duplex left Result Date: 04/13/2023 [place] [address] [id number], Preliminary Vascular Lab Report [facility] US LOWER EXTREMITY VENOUS DUPLEX LEFT Patient Name: JANELLE PICKETT [place] [id number] [address] Physician: Study Date: 04/13/2023 Ordering [id number] [address]STILLO Provider: MRN/PID: [id number] Fellow: Technologist: Desi Chen RVT Date of : 1955 Technologist 2: Gender: F Admission Inpatient Location [facility] Status: Performed: Diagnosis/ICD: Pain in left leg-M79.605 Indication: Limb pain. CPT Codes: 13120 Peripheral venous duplex scan for DVT Limited Pertinent History: Leg pain. PRELIMINARY CONCLUSIONS: Right Lower Venous: Right common femoral vein is negative for deep vein thrombus. Left Lower Venous: No evidence of acute deep vein thrombus visualized in the left lower extremity. Imaging & Doppler Findings: Right Compressible Thrombus Flow CFV Yes None Spontaneous/Phasic Left Compress Thrombus Flow Distal External Iliac Spontaneous/Phasic CFV Yes None Spontaneous/Phasic PFV Yes None FV Proximal Yes None Spontaneous/Phasic FV Mid Yes None FV Distal Yes None Popliteal Yes None Spontaneous/Phasic Peroneal Yes None PTV Yes None VASCULAR PRELIMINARY REPORT completed by Desi Chen RVT on 04/13/2023 at 4:11:[address] angio chest for pulmonary embolism Result Date: 04/13/2023 STUDY: CT Angiogram of the Chest; 04/13/2023 6:00 AM INDICATION: Shortness of breath, tachycardia. High risk for PE. COMPARISON: CTA chest 04/04/2023. ACCESSION NUMBER(S): [id number] ORDERING CLINICIAN: RYAN MEHTA TECHNIQUE: CTA of the chest was performed with intravenous contrast. Images are reviewed and processed at a workstation according to the CT angiogram protocol with 3-D and/or MIP post processing imaging generated. Omnipaque 350 58 mL was administered intravenously. Automated mA/kV exposure control was utilized and patient examination was performed in strict accordance with principles of ALARA. FINDINGS: Pulmonary arteries are adequately opacified without acute or chronic filling defects. The thoracic aorta is normal in course and caliber without dissection or aneurysm. The heart is normal in size without pericardial effusion. Coronary artery calcification noted, unchanged. There are several small lymph nodes of the mediastinum. These are not pathologically enlarged by size criteria. No thyroid nodule. No identifiable breast mass. Please note that breast tissue is not included within the [id number] in its entirety. Previously described bronchial wall thickening is less pronounced currently. There is no pleural effusionor pneumothorax. There is likely a secretion in the right bronchus intermedius. Previously described groundglass opacity of the right upper lobe has resolved. Lobulated contour of the liver appears unchanged. Although the spleen is not included in its entirety, mild splenomegaly is suspected. Low-density nodule of the right adrenal gland is stable. This is statistically an adenoma. There are no acute fractures. No suspicious bony lesions. 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 1. No CT evidence of pulmonary embolism. 2. No pulmonary mass or consolidation. No pleural or pericardial effusion. No adenopathy. No pneumothorax. 3. The recent prior CT scan had described bronchial wall thickening and right upper lobe groundglass opacity, suggesting bronchitis. Those findings have improved. Signed by Tobi Peterson MD ECG 12 lead Result Date: 04/13/2023 Unusual P axis and short OH, probable junctional tachycardia Nonspecific T wave abnormality Abnormal ECG When compared with ECG of 04-APR-2023 13:33, (unconfirmed) Junctional rhythm has replaced Sinus rhythm Nonspecific T wave abnormality has replaced inverted T waves in Inferior leads Nonspecific T wave abnormality now evident in Lateral leads Assessment/Plan Principal Problem: Tachycardia Active Problems: Pain and swelling of left lower leg Janelle Pickett is a 67 y.o. female admitted for tachycardia and hypomagnesia him in the setting of known COPD, depression, smoker,diabetes mellitus with stage III chronic kidney disease, peripheral arterial disease, B12 deficiency GERD, hypothyroidism, liver cirrhosis, obesity, vitamin D deficiency, osteoarthritis, hypomagnesia. Tachycardia -Continue telemetry -Toprol XL 50 mg p.o. x 1 given today due to heart rate being over 150 -Cardiology consult placed -Echocardiogram ordered -Check TSH-TSH is 8.58 patient is on levothyroxine T4 is normal would continue to monitor -Heart rate this afternoon is been averaging in the 120s. -Monitor heart rate in the morning and consider giving additional Toprol. Hopeful that with improvement of patient's COPD exacerbation that her heart rate will improve. Additionally with keeping magnesium levels normal that that would also benefit her tachycardia. COPD -Suspect that patient has a mild COPD exacerbation. She has a lot of Rales and rhonchi on physical exam. -Will do aggressive pulmonary treatments with DuoNebs and budesonide. Will hold off on steroids for now. Consider steroids in a.m. -No evidence of pneumonia. No significant white count. -Patient's COPD exacerbation could contribute to current tachycardia Chronic low hypomagnesia -Patient does take magnesium supplements at home but also reports a lot of diarrhea. -Magnesium supplements can cause diarrhea. -IV magnesium given today. 2 g was given in the ER and then an additional 2 g were given while on the floor.-Repeat magnesium level this afternoon was normal 2.13 Elevated blood pressure -Cardiology consulted and started patient on losartan 25 mg p.o. daily Pain to the left lower extremity -Patient did see orthopedics yesterday and got an injection into her left knee. Patient continues to have significant pain and there is some swelling in the left lower leg with a mildly elevated D-dimer -Venous Doppler to left lower extremity was performed and was negative for blood clot. Elevated D-dimer -CTA of the chest and venous Doppler left lower extremity are negative. -No evidence of blood clots at this time continue to monitor Type 2 diabetes -Change Lantus to 30 units twice a day. Home dose of Lantus is 40 units twice a day -Due to low insulin sliding scale -Carb controlled diet -Last hemoglobin A1c was 8.5 in January of this year Peripheral arterial disease -Continue Pletal 50 mg twice a day Depression -Continue Cymbalta and Lexapro Hypothyroidism -Continue levothyroxine Smoker -Nicotine patch started Intertriginous candidiasis -Start nystatin powder to skin folds on chest and abdomen Chronic constipation -Continue Linzess Chronic pain secondary to degenerative disc disease and osteoarthritis -Continue gabapentin 600 mg 3 times daily Hyperlipidemia -Continue Lipitor 20 mg daily I spent 45 minutes in the professional and overall care of this patient. Willa Del Castillo PA-C [facility] Work Phone: 04-13-2023 History and physical note History Of Present Illness Janelle Pickett is a 67 y.o. female with past medical history of COPD, depression, diabetes mellitus with stage III chronic kidney disease, GERD, hypothyroidism, liver cirrhosis, obesity, vitamin D deficiency, osteoarthritis, hypomagnesia presenting with shortness of breath, dizziness and tachycardia to the emergency department this morning. Patient was previously admitted 1 week ago for similar complaints and then signed out AMA 1 day later. Vital signs on presentation to the ER temperature of 97.5, heart rate 153, respirations 16, blood pressure 132/79 and oxygen 94% on room air. Labs were significant of glucose 221, potassium 3.8, calcium 8.2, magnesium 1.17, BNP 65, troponin 7, D-dimer 741, white count 7.7, platelets 111. CT scan of the chest was performed that showed no evidence of pulmonary embolism, recent prior CT scan described bronchial wall thickening and a right upper lobe groundglass opacity suggesting bronchitis those findings have improved on the CT. EKG was done showed possible ectopic atrial tachycardia with heart rate [address] elevation or depression, normal axis. Patient then was admitted for further evaluation and monitoring of her tachycardia. Talking with the patient she states that approximately 1 week ago she was hospitalized with an elevated heart rate and signed out AMA. At that time patient was having significant nausea vomiting and diarrhea. She states that she did not feel well but that has overall improved. Her main concern was this morning when she checked her heart rate and it was over 150 and felt that she should come to the emergency department. Patient is also main complaint is having significant pain to the left lower extremity. Patient was scheduled to have an outpatient venous Doppler this morning. Past Medical History Past Medical History: Diagnosis Date Fall 04/01/2022 Comment on above: FALL H/O [facility] Influenza vaccination declined 11/2021 Pap smear for cervical cancer screening 02/2022- NORMAL- DONE AT [address] [place] [address] Surgical History Past Surgical History: Procedure Laterality Date COLONOSCOPY 2020 [facility] - NORMAL REPEAT IN 10 YEARS OOPHORECTOMY 10/30/1999 OTHER SURGICAL HISTORY Bilateral MEDIAL BRANCH BLOCK - PETEY BLANCHARD (PAIN MANAGEMENT) BILAT- L4-S1 MBB OTHER SURGICAL HISTORY 12/25/2021 Medial branch block Social History She reports that she has been smoking cigarettes. She has been smoking an average of .5 packs per day. She has never used smokeless tobacco. She reports current alcohol use. She reports that she does not use drugs. Family History Family History Problem Relation Name Age of Onset Aneurysm Mother Edema Father 1969 Other (MALIGNANT NEOPLASM) Brother Cancer Father's Sister 2-3 AUNTS ON FATHER SIDE Allergies Gemfibrozil Review of Systems Physical Exam Last Recorded Vitals Blood pressure 130/81, pulse (!) 125, temperature 36.2 C (97.2 F), resp. rate 20, height 1.549 m (5' 1 ), weight 97.1 kg (214 lb), SpO2 98 %. Relevant Results Scheduled medications atorvastatin, 20 mg, oral, Nightly budesonide, 0.5 mg, nebulization, BID cilostazol, 50 mg, oral, BID [START ON 04/14/2023] cyanocobalamin, 1,000 mcg, oral, Every other day DULoxetine, 20 mg, oral, Daily enoxaparin, 40 mg, subcutaneous, q12h ROGER escitalopram, 20 mg, oral, Nightly gabapentin, 600 mg, oral, TID insulin glargine, 30 Units, subcutaneous, BID insulin lispro, 0-15 Units, subcutaneous, TID with meals ipratropium-albuteroL, 3 mL, nebulization, q6h [START ON 04/14/2023] levothyroxine, 25 mcg, oral, Daily levothyroxine, 50 mcg, oral, Nightly [START ON 04/14/2023] linaCLOtide, 145 mcg, oral, Daily before breakfast montelukast, 10 mg, oral, Nightly nicotine, 1 patch, transdermal, Daily Followed by [START ON 05/25/2023] nicotine, 1 patch, transdermal, Daily Followed by [START ON 06/08/2023] nicotine, 1 patch, transdermal, Daily nystatin, 1 Application, Topical, TID polyethylene glycol, 17 g, oral, Daily traZODone, 100 mg, oral, Nightly Continuous medications sodium chloride 0.9%, 150 mL/hr, Last Rate: 150 mL/hr (04/13/23 1350) PRN medications PRN medications: acetaminophen OR acetaminophen OR acetaminophen, dextrose 10 % in water (D10W), dextrose, glucagon, insulin lispro Results for orders placed or performed during the hospital encounter of 04/13/23 (from the past 24 hour(s)) CBC and Auto Differential Result Value Ref Range WBC 7.7 4.4 - 11.3 x10*3/uL nRBC 0.0 0.0 - 0.0 /100 WBCs RBC 4.37 4.00 - 5.20 x10*6/uL Hemoglobin 13.4 12.0 - 16.0 g/dL Hematocrit 39.6 36.0 - 46.0 % MCV 91 80 - 100 fL MCH 30.7 26.0 - 34.0 pg MCHC 33.8 32.0 - 36.0 g/dL RDW 13.4 11.5 - 14.5 % Platelets 111 (L) 150 - 450 x10*3/uL Neutrophils % 68.7 40.0 - 80.0 % Immature Granulocytes %, Automated 1.0 (H) 0.0 - 0.9 % Lymphocytes % 22.1 13.0 - 44.0 % Monocytes % 7.3 2.0 - 10.0 % Eosinophils % 0.5 0.0 - 6.0 % Basophils % 0.4 0.0 - 2.0 % Neutrophils Absolute 5.28 1.20 - 7.70 x10*3/uL Immature Granulocytes Absolute, Automated 0.08 0.00 - 0.70 x10*3/uL Lymphocytes Absolute 1.70 1.20 - 4.80 x10*3/uL Monocytes Absolute 0.56 0.10 - 1.00 x10*3/uL Eosinophils Absolute 0.04 0.00 - 0.70 x10*3/uL Basophils Absolute 0.03 0.00 - 0.10 x10*3/uL Basic metabolic panel Result Value Ref Range Glucose 221 (H) 74 - 99 mg/dL Sodium 138 136 - 145 mmol/L Potassium 3.8 3.5 - 5.3 mmol/L Chloride 104 98 - 107 mmol/L Bicarbonate 26 21 - 32 mmol/L Anion Gap 12 10 - 20 mmol/L Urea Nitrogen 10 6 - 23 mg/dL Creatinine 0.97 0.50 - 1.05 mg/dL eGFR 65 >60 mL/min/1.73m*2 Calcium 8.2 (L) 8.6 - 10.3 mg/dL Magnesium Result Value Ref Range Magnesium 1.17 (L) 1.60 - 2.40 mg/dL Troponin I, High Sensitivity Result Value Ref Range Troponin I, High Sensitivity 7 0 - 13 ng/L B-Type Natriuretic Peptide Result Value Ref Range BNP 65 0 - 99 pg/mL D-Dimer, Quantitative Non VTE Result Value Ref Range D-Dimer Non VTE, Quant (ng/mL FEU) 741 (H) <=500 ng/mL FEU Protime-INR Result Value Ref Range Protime 12.2 9.8 - 12.8 seconds INR 1.1 0.9 - 1.1 APTT Result Value Ref Range aPTT 32 27 - 38 seconds ECG 12 lead Result Value Ref Range Ventricular Rate 152 BPM Atrial Rate 152 BPM OH Interval 124 ms QRS Duration 60 ms QT Interval 258 ms QTC Calculation(Bazett) 410 ms P Alpine 265 degrees R Alpine 33 degrees T Alpine 83 degrees QRS Count 25 beats Q Onset 232 ms P Onset 170 ms P Offset 226 ms T Offset 361 ms QTC Fredericia 351 ms POCT GLUCOSE Result Value Ref Range POCT Glucose 155 (H) 74 - 99 mg/dL POCT GLUCOSE Result Value Ref Range POCT Glucose 82 74 - 99 mg/dL Magnesium Result Value Ref Range Magnesium 2.13 1.60 - 2.40 mg/dL Phosphorus Result Value Ref Range Phosphorus 4.0 2.5 - 4.9 mg/dL TSH with reflex to Free T4 if abnormal Result Value Ref Range Thyroid Stimulating Hormone 8.58 (H) 0.44 - 3.98 mIU/L Thyroxine, Free Result Value Ref Range Thyroxine, Free 0.70 0.61 - 1.12 ng/dL Transthoracic Echo (TTE) Complete Result Value Ref Range BSA 2.04 m2 Lower extremity venous duplex left Result Date: 04/13/2023 [place] [address] [id number], Preliminary Vascular Lab Report [facility] US LOWER EXTREMITY VENOUS DUPLEX LEFT Patient Name: JANELLE PICKETT [place] [id number] [address] Physician: Study Date: 04/13/2023 Ordering [id number] WILL[address] CASTILLO Provider: MRN/PID: [id number] Fellow: Technologist: Desi Chen RVT Date of : 1955 Technologist 2: Gender: F Admission Inpatient Location [facility] Status: Performed: Diagnosis/ICD: Pain in left leg-M79.605 Indication: Limb pain. CPT Codes: 46721 Peripheral venous duplex scan for DVT Limited Pertinent History: Leg pain. PRELIMINARY CONCLUSIONS: Right Lower Venous: Right common femoral vein is negative for deep vein thrombus. Left Lower Venous: No evidence of acute deep vein thrombus visualized in the left lower extremity. Imaging & Doppler Findings: Right Compressible Thrombus Flow CFV Yes None Spontaneous/Phasic Left Compress Thrombus Flow Distal External Iliac Spontaneous/Phasic CFV Yes None Spontaneous/Phasic PFV Yes None FV Proximal Yes None Spontaneous/Phasic FV Mid Yes None FV Distal Yes None Popliteal Yes None Spontaneous/Phasic Peroneal Yes None PTV Yes None VASCULAR PRELIMINARY REPORT completed by Desi Chen RVT on 04/13/2023 at 4:11:[address] angio chest for pulmonary embolism Result Date: 04/13/2023 STUDY: CT Angiogram of the Chest; 04/13/2023 6:00 AM INDICATION: Shortness of breath, tachycardia. High risk for PE. COMPARISON: CTA chest 04/04/2023. ACCESSION NUMBER(S): [id number] ORDERING CLINICIAN: RYAN MEHTA TECHNIQUE: CTA of the chest was performed with intravenous contrast. Images are reviewed and processed at a workstation according to the CT angiogram protocol with 3-D and/or MIP post processing imaging generated. Omnipaque 350 58 mL was administered intravenously. Automated mA/kV exposure control was utilized and patient examination was performed in strict accordance with principles of ALARA. FINDINGS: Pulmonary arteries are adequately opacified without acute or chronic filling defects. The thoracic aorta is normal in course and caliber without dissection or aneurysm. The heart is normal in size without pericardial effusion. Coronary artery calcification noted, unchanged. There are several small lymph nodes of the mediastinum. These are not pathologically enlarged by size criteria. No thyroid nodule. No identifiable breast mass. Please note that breast tissue is not included within the [id number] in its entirety. Previously described bronchial wall thickening is less pronounced currently. There is no pleural effusionor pneumothorax. There is likely a secretion in the right bronchus intermedius. Previously described groundglass opacity of the right upper lobe has resolved. Lobulated contour of the liver appears unchanged. Although the spleen is not included in its entirety, mild splenomegaly is suspected. Low-density nodule of the right adrenal gland is stable. This is statistically an adenoma. There are no acute fractures. No suspicious bony lesions. 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 1. No CT evidence of pulmonary embolism. 2. No pulmonary mass or consolidation. No pleural or pericardial effusion. No adenopathy. No pneumothorax. 3. The recent prior CT scan had described bronchial wall thickening and right upper lobe groundglass opacity, suggesting bronchitis. Those findings have improved. Signed by Tobi Peterson MD ECG 12 lead Result Date: 04/13/2023 Unusual P axis and short OH, probable junctional tachycardia Nonspecific T wave abnormality Abnormal ECG When compared with ECG of 04-APR-2023 13:33, (unconfirmed) Junctional rhythm has replaced Sinus rhythm Nonspecific T wave abnormality has replaced inverted T waves in Inferior leads Nonspecific T wave abnormality now evident in Lateral leads Assessment/Plan Principal Problem: Tachycardia Active Problems: Pain and swelling of left lower leg Janelle Pickett is a 67 y.o. female admitted for tachycardia and hypomagnesia him in the setting of known COPD, depression, smoker,diabetes mellitus with stage III chronic kidney disease, peripheral arterial disease, B12 deficiency GERD, hypothyroidism, liver cirrhosis, obesity, vitamin D deficiency, osteoarthritis, hypomagnesia. Tachycardia -Continue telemetry -Toprol XL 50 mg p.o. x 1 given today due to heart rate being over 150 -Cardiology consult placed -Echocardiogram ordered -Check TSH-TSH is 8.58 patient is on levothyroxine T4 is normal would continue to monitor -Heart rate this afternoon is been averaging in the 120s. -Monitor heart rate in the morning and consider giving additional Toprol. Hopeful that with improvement of patient's COPD exacerbation that her heart rate will improve. Additionally with keeping magnesium levels normal that that would also benefit her tachycardia. COPD -Suspect that patient has a mild COPD exacerbation. She has a lot of Rales and rhonchi on physical exam. -Will do aggressive pulmonary treatments with DuoNebs and budesonide. Will hold off on steroids for now. Consider steroids in a.m. -No evidence of pneumonia. No significant white count. -Patient's COPD exacerbation could contribute to current tachycardia Chronic low hypomagnesia -Patient does take magnesium supplements at home but also reports a lot of diarrhea. -Magnesium supplements can cause diarrhea. -IV magnesium given today. 2 g was given in the ER and then an additional 2 g were given while on the floor.-Repeat magnesium level this afternoon was normal 2.13 Elevated blood pressure -Cardiology consulted and started patient on losartan 25 mg p.o. daily Pain to the left lower extremity -Patient did see orthopedics yesterday and got an injection into her left knee. Patient continues to have significant pain and there is some swelling in the left lower leg with a mildly elevated D-dimer -Venous Doppler to left lower extremity was performed and was negative for blood clot. Elevated D-dimer -CTA of the chest and venous Doppler left lower extremity are negative. -No evidence of blood clots at this time continue to monitor Type 2 diabetes -Change Lantus to 30 units twice a day. Home dose of Lantus is 40 units twice a day -Due to low insulin sliding scale -Carb controlled diet -Last hemoglobin A1c was 8.5 in January of this year Peripheral arterial disease -Continue Pletal 50 mg twice a day Depression -Continue Cymbalta and Lexapro Hypothyroidism -Continue levothyroxine Smoker -Nicotine patch started Intertriginous candidiasis -Start nystatin powder to skin folds on chest and abdomen Chronic constipation -Continue Linzess Chronic pain secondary to degenerative disc disease and osteoarthritis -Continue gabapentin 600 mg 3 times daily Hyperlipidemia -Continue Lipitor 20 mg daily I spent 45 minutes in the professional and overall care of this patient. Willa Del Castillo PA-C documented in this encounter [facility] Work Phone: 04-13-2023 History of Present illness Narrative 04/13/23 1115 Discharge Planning Living Arrangements Alone Support Systems Family members Assistance Needed denies Type of Residence Private residence Number of Stairs to Enter Residence 5 Number of Stairs Within Residence 13 Do you have animals or pets at home? No Who is requesting discharge planning? Provider Home or Post Acute Services None Patient expects to be discharged to: Home Does the patient need discharge transport arranged? No Financial Resource Strain How hard is it for you to pay for the very basics like food, housing, medical care, and heating? Not hard Housing Stability In the last 12 months, was there a time when you were not able to pay the mortgage or rent on time? N In the last 12 months, how many places have you lived? 1 In the last 12 months, was there a time when you did not have a steady place to sleep or slept in a usp (including now)? N Transportation Needs In the past 12 months, has lack of transportation kept you from medical appointments or from getting medications? no In the past 12 months, has lack of transportation kept you from meetings, work, or from getting things needed for daily living? No Patient Choice Provider Choice list and CMS website (https://medicare.gov/care-compare #search) for post-acute Quality and Resource Measure Data were provided and reviewed with: Other (Comment) (NA) Patient / Family choosing to utilize agency / facility established prior to hospitalization No Met with pt at the bedside and verified address, phone number and emergency contact information. PCP is Sharonda seen last month and pharmacy of choice is [facility]. Pt is independent and lives alone and feels safe. She checks her blood sugar 3x/day and has plenty of supplies. She uses a walker as needed. Reviewed the IMM denied questions signed and dated provided pt a copy and placed original on chart. Plan for dischart is to return josh no new needs at this time. CT to follow. Edyta Gutiérrez BSN/RN-TCC documented in this encounter [facility] Work Phone: 04-13-2023 Consult note Associated Order (s): Inpatient consult to Cardiology; Inpatient consult to Cardiology Inpatient consult to Cardiology Consult performed by: JYOTHI Del Rio, YASMINE Consult ordered by: Willa Del Castillo PA-C Inpatient consult to Cardiology Consult performed by: JYOTHI Del Rio DNP Consult ordered by: Daniela Up MD History Of Present Illness: Janelle Pickett is a 67 y.o. female presenting for SOB, dizziness, and elevated heart rate. Patient was previously admitted approximately one week ago for similar complaints and then signed out AMA one day later. EKGs negative for any ischemic changes; D-dimer elevated at 741, magnesium low at 1.17. CTA was negative for PE and less pronounced bronchial wall thickening compared to previous study. Patient was given magnesium in the ER with slight improvement in heart rate. Patient admitted for further eval and treatment. Cardiology consulted secondary to tachycardia. Patient examined at bedside and keeps her eyes closed in conversation. She reports SOB and dizziness upon standing. She complains of being cold and cannot warm up. She also reports pain in left lower extremity. She currently lives alone and is a cigarette smoker. Last Recorded Vitals: Vitals: 04/13/23 0530 04/13/23 0600 04/13/23 0718 04/13/23 0800 BP: 143/74 107/68 125/84 144/86 Pulse: (!) 146 (!) 141 (!) 137 (!) 146 Resp: 15 16 16 16 Temp: 36.1 C (97 F) SpO2: 93% 96% 95% 96% Weight: Height: Last Labs: CBC - 04/13/2023: 4:48 AM 7.7 13.4 111 39.6 CMP - 04/13/2023: 4:48 AM 8.2 6.7 14 --- 0.4 _ 3.1 11 82 PTT - 04/13/2023: 4:48 AM 1.1 12.2 32 Troponin I, High Sensitivity Date/Time Value Ref Range Status 04/13/2023 04:48 AM 7 0 - 13 ng/L Final 04/04/2023 01:48 PM 4 0 - 13 ng/L Final 04/04/2023 09:10 AM 5 0 - 13 ng/L Final BNP Date/Time Value Ref Range Status 04/13/2023 04:48 AM 65 0 - 99 pg/mL Final Hemoglobin A1C Date/Time Value Ref Range Status 02/07/2023 08:25 AM 8.5 (H) see below % Final 08/20/2022 08:04 AM 7.0 (A) % Final Comment: Diagnosis of Diabetes-Adults Non-Diabetic: < or = 5.6% Increased risk for developing diabetes: 5.7-6.4% Diagnostic of diabetes: > or = 6.5% . Monitoring of Diabetes Age (y) Therapeutic Goal (%) Adults: >18 <7.0 Pediatrics: 13-18 <7.5 7-12 <8.0 0- 6 7.5-8.5 [place] [employer]. Diabetes Care 33(S1), Apr 2009. 07/16/2022 08:10 AM 7.6 (A) % Final Comment: Diagnosis of Diabetes-Adults Non-Diabetic: < or = 5.6% Increased risk for developing diabetes: 5.7-6.4% Diagnostic of diabetes: > or = 6.5% . Monitoring of Diabetes Age (y) Therapeutic Goal (%) Adults: >18 <7.0 Pediatrics: 13-18 <7.5 7-12 <8.0 0- 6 7.5-8.5 [place] [employer]. Diabetes Care 33(S1), Apr 2009. 03/02/2022 09:54 AM 9.1 (A) 4.0 - 6.0 % Final 11/23/2021 11:19 AM 7.3 (A) 4.0 - 6.0 % Final LDL Calculated Date/Time Value Ref Range Status 02/07/2023 08:25 AM 90 <=99 mg/dL Final Comment: Near Borderline AGE Desirable Optimal High High Very High 0-19 Y 0 - 109 --- 110-129 >/= 130 ---- 20-24 Y 0 - 119 --- 120-159 >/= 160 ---- >24 Y 0 - 99 100-129 130-159 160-189 >/=190 VLDL Date/Time Value Ref Range Status 02/07/2023 08:25 AM 54 (H) 0 - 40 mg/dL Final 07/16/2022 08:10 AM 59 (H) 0 - 40 mg/dL Final Last I/O: No intake/output data recorded. Past Cardiology Tests (Last 3 Years): EKG: ECG 12 lead 04/13/2023 (Preliminary) ECG 12 lead 04/04/2023 (Preliminary) Echo: No results found for this or any previous visit from the past 1095 days. Ejection Fractions: No results found for: EF Cath: No results found for this or any previous visit from the past 1095 days. Stress Test: No results found for this or any previous visit from the past 1095 days. Cardiac Imaging: No results found for this or any previous visit from the past 1095 days. Past Medical History: She has a past medical history of Fall (04/01/2022), H/O mammogram (2021), Influenza vaccination declined (11/2021), and Pap smear for cervical cancer screening (02/2022). She has no past medical history of Acromioclavicular separation. Past Surgical History: She has a past surgical history that includes Colonoscopy (2020); Other surgical history (Bilateral); Other surgical history (12/25/2021); and Oophorectomy (10/30/1999). Social History: She reports that she has been smoking cigarettes. She has been smoking an average of .5 packs per day. She has never used smokeless tobacco. She reports current alcohol use. She reports that she does not use drugs. Family History: Family History Problem Relation Name Age of Onset Aneurysm Mother Edema Father 1970 Other (MALIGNANT NEOPLASM) Brother Cancer Father's Sister 2-3 AUNTS ON FATHER SIDE Allergies: Gemfibrozil Inpatient Medications: Scheduled medications Medication Dose Route Frequency atorvastatin 20 mg oral Daily budesonide 0.5 mg nebulization BID cilostazol 50 mg oral BID citalopram 20 mg oral Daily cyanocobalamin 1,000 mcg oral Every other day DULoxetine 20 mg oral Daily enoxaparin 40 mg subcutaneous q12h ROGER enoxaparin 40 mg subcutaneous q12h ROGER gabapentin 600 mg oral TID insulin glargine 30 Units subcutaneous Nightly insulin lispro 0-15 Units subcutaneous TID with meals ipratropium-albuteroL 3 mL nebulization q6h levothyroxine 50 mcg oral Daily [START ON 04/14/2023] linaCLOtide 145 mcg oral Daily before breakfast montelukast 10 mg oral Nightly nicotine 1 patch transdermal Daily Followed by [START ON 05/25/2023] nicotine 1 patch transdermal Daily Followed by [START ON 06/08/2023] nicotine 1 patch transdermal Daily polyethylene glycol 17 g oral Daily traZODone 100 mg oral Nightly PRN medications Medication acetaminophen Or acetaminophen Or acetaminophen dextrose 10 % in water (D10W) dextrose glucagon insulin lispro Continuous Medications Medication Dose Last Rate sodium chloride 0.9% 150 mL/hr 150 mL/hr (04/13/23 0650) Outpatient Medications: Current Outpatient Medications Medication Instructions albuterol 90 mcg/actuation inhaler 2 puffs, inhalation, Every 6 hours PRN atorvastatin (LIPITOR) 20 mg, oral, Daily Autolet lancing device 1 each, miscellaneous, As needed, Use as instructed blood sugar diagnostic (OneTouch Verio test strips) strip 1 each, miscellaneous, 2 times daily owenqpoabj-ctghdrtz-bxqgndzmgy (Breztri Aerosphere) 160-9-4.8 mcg/actuation HFA aerosol inhaler 2 puffs, inhalation, 2 times daily RT cilostazol (PLETAL) 50 mg, oral, Daily, FROM [address] citalopram (CELEXA) 40 mg, oral, Daily cyanocobalamin (VITAMIN B-12) 1,000 mcg, oral, Every other day cyclobenzaprine (FLEXERIL) 10 mg, oral, 3 times daily PRN diclofenac sodium (Voltaren) 1 % gel gel Daily RT dicyclomine (BENTYL) 20 mg, oral, 4 times daily PRN docusate sodium (COLACE) 100 mg, oral, 2 times daily PRN DULoxetine (CYMBALTA) 20 mg, oral, Daily ergocalciferol (Vitamin D-2) 1.25 MG (33551 UT) capsule Take 1 cap twice weekly (on separate days) fluticasone propion-salmeteroL (Advair HFA) 230-21 mcg/actuation inhaler 2 puffs, inhalation, 2 times daily RT FreeStyle glucose monitoring kit 1 each, miscellaneous, 2 times daily PRN gabapentin (NEURONTIN) 600 mg, oral, 3 times daily HYDROcodone-acetaminophen ([place]) 5-325 mg tablet oral, Every 6 hours PRN ibuprofen 600 mg, oral, Every 6 hours PRN insulin glargine (Lantus Solostar U-100 Insulin) 100 unit/mL (3 mL) pen Inject 40 units Subcutaneously BID ipratropium-albuteroL (Duo-Neb) 0.5-2.5 mg/3 mL nebulizer solution inhalation, Use 1 unit dose in nebulizer every 4 hours as needed lancets (Clip Interactiveuch Delica Plus Lancet) 33 gauge misc 1 each, miscellaneous, 2 times daily levothyroxine (SYNTHROID, LEVOXYL) 50 mcg, oral, Daily linaCLOtide (LINZESS) 145 mcg, oral, Daily before breakfast loratadine (Claritin) 10 mg tablet 1 tablet, oral, Daily magnesium oxide (MAG-OX) 400 mg, oral, 3 times daily methocarbamol (Robaxin) 500 mg tablet montelukast (SINGULAIR) 10 mg, oral, Nightly naproxen (NAPROSYN) 500 mg, 2 times daily with meals nebulizers misc 1 each nystatin (Mycostatin) 100,000 unit/gram powder Topical, 2 times daily omeprazole (PRILOSEC) 40 mg, oral, Daily before breakfast ondansetron ODT (ZOFRAN-ODT) 4 mg, oral, Every 4 hours PRN pen needle, diabetic (BD Ultra-Fine Short Pen Needle) 31 gauge x 5/16 needle USE DIRECTED potassium chloride CR (Klor-Con) 10 mEq ER tablet 10 mEq, oral, Daily predniSONE (Deltasone) 10 mg tablet Take 2 tab po tid x 3 days then 1 tab po tid x 3 days then 1 tab po bid x 3 days then 1 tab daily x 3 days promethazine (PHENERGAN) 25 mg, oral, Every 8 hours PRN semaglutide 2 mg, subcutaneous, Weekly sertraline (ZOLOFT) 50 mg, oral, Daily silver sulfADIAZINE (Silvadene) 1 % cream Apply to affected area twice a day or with each dressing change. tiotropium (Spiriva with HandiHaler) 18 mcg inhalation capsule 1 capsule, inhalation, Daily RT tiZANidine (ZANAFLEX) 4 mg, Every 6 hours PRN traZODone (DESYREL) 100 mg, oral, Nightly Physical Exam: General: awake, alert and oriented. No acute distress. Skin: Skin is warm, dry and intact without rashes or lesions. HEENT: normocephalic, atraumatic; conjunctivae are clear without exudates or hemorrhage. Sclera is non-icteric. Eyelids are normal in appearance without swelling or lesions. Hearing intact. Nares are patent bilaterally. Moist mucous membranes. Cardiovascular: rhythm is regular; rate is fast Respiratory: coarse rhonchi bilaterally Gastrointestinal: non-distended, non-tender Genitourinary: exam deferred Musculoskeletal: ROM intact, no deformities Extremities: pulses palpable bilaterally; no major swelling or erythema Neurological: no focal deficits Psychiatric: calm Assessment/Plan Sinus tachycardia: -Patient was previously hospitalized around [place] with elevated heart rate at that time and unfortunately signed out AMA. -Telemetry reviewed with resting HR >110 bpm -Echo ordered -Primary team administered Toprol XL 50mg x 1 -Unsure of etiology of tachycardia at this point; differentials include COPD exacerbation; hospital-acquired PNA; adverse effect of ordered medication -Keep Mg above 2 -If HR continues to be elevated, can start Lopressor 50mg twice daily HTN: -Patient hypertensive and has been in the past. Given she is a diabetic, I will start an ARB for kidney function. Will start Losartan 25mg daily Elevated D-dimer: -PE ruled out by CTA; venous duplex ordered to LLE given reports of leg pain Peripheral IV 04/13/23 20 G Right;Ventral Forearm (Active) Site Assessment Clean;Dry;Intact 04/13/23 0800 Dressing Status Clean;Dry 04/13/23 0800 Number of days: 0 Code Status: Full Code Thank you for allowing me to participate in the care of this patient. Please reach me out if you have any questions or if you need any clarifications regarding the patient's care. JYOTHI Del Rio DNP [facility] Work Phone: 04-13-2023 Consult note Associated Order (s): Inpatient consult to Cardiology; Inpatient consult to Cardiology Inpatient consult to Cardiology Consult performed by: JYOTHI Del Rio DNP Consult ordered by: Willa Del Castillo PA-C Inpatient consult to Cardiology Consult performed by: JYOTHI Del Rio DNP Consult ordered by: Daniela Up MD History Of Present Illness: Janelle Pickett is a 67 y.o. female presenting for SOB, dizziness, and elevated heart rate. Patient was previously admitted approximately one week ago for similar complaints and then signed out AMA one day later. EKGs negative for any ischemic changes; D-dimer elevated at 741, magnesium low at 1.17. CTA was negative for PE and less pronounced bronchial wall thickening compared to previous study. Patient was given magnesium in the ER with slight improvement in heart rate. Patient admitted for further eval and treatment. Cardiology consulted secondary to tachycardia. Patient examined at bedside and keeps her eyes closed in conversation. She reports SOB and dizziness upon standing. She complains of being cold and cannot warm up. She also reports pain in left lower extremity. She currently lives alone and is a cigarette smoker. Last Recorded Vitals: Vitals: 04/13/23 0530 04/13/23 0600 04/13/23 0718 04/13/23 0800 BP: 143/74 107/68 125/84 144/86 Pulse: (!) 146 (!) 141 (!) 137 (!) 146 Resp: 15 16 16 16 Temp: 36.1 C (97 F) SpO2: 93% 96% 95% 96% Weight: Height: Last Labs: CBC - 04/13/2023: 4:48 AM 7.7 13.4 111 39.6 CMP - 04/13/2023: 4:48 AM 8.2 6.7 14 --- 0.4 _ 3.1 11 82 PTT - 04/13/2023: 4:48 AM 1.1 12.2 32 Troponin I, High Sensitivity Date/Time Value Ref Range Status 04/13/2023 04:48 AM 7 0 - 13 ng/L Final 04/04/2023 01:48 PM 4 0 - 13 ng/L Final 04/04/2023 09:10 AM 5 0 - 13 ng/L Final BNP Date/Time Value Ref Range Status 04/13/2023 04:48 AM 65 0 - 99 pg/mL Final Hemoglobin A1C Date/Time Value Ref Range Status 02/07/2023 08:25 AM 8.5 (H) see below % Final 08/20/2022 08:04 AM 7.0 (A) % Final Comment: Diagnosis of Diabetes-Adults Non-Diabetic: < or = 5.6% Increased risk for developing diabetes: 5.7-6.4% Diagnostic of diabetes: > or = 6.5% . Monitoring of Diabetes Age (y) Therapeutic Goal (%) Adults: >18 <7.0 Pediatrics: 13-18 <7.5 7-12 <8.0 0- 6 7.5-8.5 [employer] [employer]. Diabetes Care 33(S1), Apr 2009. 07/16/2022 08:10 AM 7.6 (A) % Final Comment: Diagnosis of Diabetes-Adults Non-Diabetic: < or = 5.6% Increased risk for developing diabetes: 5.7-6.4% Diagnostic of diabetes: > or = 6.5% . Monitoring of Diabetes Age (y) Therapeutic Goal (%) Adults: >18 <7.0 Pediatrics: 13-18 <7.5 7-12 <8.0 0- 6 7.5-8.5 [employer]. Diabetes Care 33(S1), Apr 2009. 03/02/2022 09:54 AM 9.1 (A) 4.0 - 6.0 % Final 11/23/2021 11:19 AM 7.3 (A) 4.0 - 6.0 % Final LDL Calculated Date/Time Value Ref Range Status 02/07/2023 08:25 AM 90 <=99 mg/dL Final Comment: Near Borderline AGE Desirable Optimal High High Very High 0-19 Y 0 - 109 --- 110-129 >/= 130 ---- 20-24 Y 0 - 119 --- 120-159 >/= 160 ---- >24 Y 0 - 99 100-129 130-159 160-189 >/=190 VLDL Date/Time Value Ref Range Status 02/07/2023 08:25 AM 54 (H) 0 - 40 mg/dL Final 07/16/2022 08:10 AM 59 (H) 0 - 40 mg/dL Final Last I/O: No intake/output data recorded. Past Cardiology Tests (Last 3 Years): EKG: ECG 12 lead 04/13/2023 (Preliminary) ECG 12 lead 04/04/2023 (Preliminary) Echo: No results found for this or any previous visit from the past 1095 days. Ejection Fractions: No results found for: EF Cath: No results found for this or any previous visit from the past 1095 days. Stress Test: No results found for this or any previous visit from the past 1095 days. Cardiac Imaging: No results found for this or any previous visit from the past 1095 days. Past Medical History: She has a past medical history of Fall (04/01/2022), H/O mammogram (2021), Influenza vaccination declined (11/2021), and Pap smear for cervical cancer screening (02/2022). She has no past medical history of Acromioclavicular separation. Past Surgical History: She has a past surgical history that includes Colonoscopy (2020); Other surgical history (Bilateral); Other surgical history (12/25/2021); and Oophorectomy (10/30/1999). Social History: She reports that she has been smoking cigarettes. She has been smoking an average of .5 packs per day. She has never used smokeless tobacco. She reports current alcohol use. She reports that she does not use drugs. Family History: Family History Problem Relation Name Age of Onset Aneurysm Mother Edema Father 1970 Other (MALIGNANT NEOPLASM) Brother Cancer Father's Sister 2-3 AUNTS ON FATHER SIDE Allergies: Gemfibrozil Inpatient Medications: Scheduled medications Medication Dose Route Frequency atorvastatin 20 mg oral Daily budesonide 0.5 mg nebulization BID cilostazol 50 mg oral BID citalopram 20 mg oral Daily cyanocobalamin 1,000 mcg oral Every other day DULoxetine 20 mg oral Daily enoxaparin 40 mg subcutaneous q12h ROGER enoxaparin 40 mg subcutaneous q12h ROGER gabapentin 600 mg oral TID insulin glargine 30 Units subcutaneous Nightly insulin lispro 0-15 Units subcutaneous TID with meals ipratropium-albuteroL 3 mL nebulization q6h levothyroxine 50 mcg oral Daily [START ON 04/14/2023] linaCLOtide 145 mcg oral Daily before breakfast montelukast 10 mg oral Nightly nicotine 1 patch transdermal Daily Followed by [START ON 05/25/2023] nicotine 1 patch transdermal Daily Followed by [START ON 06/08/2023] nicotine 1 patch transdermal Daily polyethylene glycol 17 g oral Daily traZODone 100 mg oral Nightly PRN medications Medication acetaminophen Or acetaminophen Or acetaminophen dextrose 10 % in water (D10W) dextrose glucagon insulin lispro Continuous Medications Medication Dose Last Rate sodium chloride 0.9% 150 mL/hr 150 mL/hr (04/13/23 0650) Outpatient Medications: Current Outpatient Medications Medication Instructions albuterol 90 mcg/actuation inhaler 2 puffs, inhalation, Every 6 hours PRN atorvastatin (LIPITOR) 20 mg, oral, Daily Autolet lancing device 1 each, miscellaneous, As needed, Use as instructed blood sugar diagnostic (Clip Interactiveuch Verio test strips) strip 1 each, miscellaneous, 2 times daily waavwnvsly-sjbnscgl-dkqotieqcz (Breztri Aerosphere) 160-9-4.8 mcg/actuation HFA aerosol inhaler 2 puffs, inhalation, 2 times daily RT cilostazol (PLETAL) 50 mg, oral, Daily, FROM [address] citalopram (CELEXA) 40 mg, oral, Daily cyanocobalamin (VITAMIN B-12) 1,000 mcg, oral, Every other day cyclobenzaprine (FLEXERIL) 10 mg, oral, 3 times daily PRN diclofenac sodium (Voltaren) 1 % gel gel Daily RT dicyclomine (BENTYL) 20 mg, oral, 4 times daily PRN docusate sodium (COLACE) 100 mg, oral, 2 times daily PRN DULoxetine (CYMBALTA) 20 mg, oral, Daily ergocalciferol (Vitamin D-2) 1.25 MG (53722 UT) capsule Take 1 cap twice weekly (on separate days) fluticasone propion-salmeteroL (Advair HFA) 230-21 mcg/actuation inhaler 2 puffs, inhalation, 2 times daily RT FreeStyle glucose monitoring kit 1 each, miscellaneous, 2 times daily PRN gabapentin (NEURONTIN) 600 mg, oral, 3 times daily HYDROcodone-acetaminophen ([place]) 5-325 mg tablet oral, Every 6 hours PRN ibuprofen 600 mg, oral, Every 6 hours PRN insulin glargine (Lantus Solostar U-100 Insulin) 100 unit/mL (3 mL) pen Inject 40 units Subcutaneously BID ipratropium-albuteroL (Duo-Neb) 0.5-2.5 mg/3 mL nebulizer solution inhalation, Use 1 unit dose in nebulizer every 4 hours as needed lancets (Clip Interactiveuch Delica Plus Lancet) 33 gauge misc 1 each, miscellaneous, 2 times daily levothyroxine (SYNTHROID, LEVOXYL) 50 mcg, oral, Daily linaCLOtide (LINZESS) 145 mcg, oral, Daily before breakfast loratadine (Claritin) 10 mg tablet 1 tablet, oral, Daily magnesium oxide (MAG-OX) 400 mg, oral, 3 times daily methocarbamol (Robaxin) 500 mg tablet montelukast (SINGULAIR) 10 mg, oral, Nightly naproxen (NAPROSYN) 500 mg, 2 times daily with meals nebulizers misc 1 each nystatin (Mycostatin) 100,000 unit/gram powder Topical, 2 times daily omeprazole (PRILOSEC) 40 mg, oral, Daily before breakfast ondansetron ODT (ZOFRAN-ODT) 4 mg, oral, Every 4 hours PRN pen needle, diabetic (BD Ultra-Fine Short Pen Needle) 31 gauge x 5/16 needle USE DIRECTED potassium chloride CR (Klor-Con) 10 mEq ER tablet 10 mEq, oral, Daily predniSONE (Deltasone) 10 mg tablet Take 2 tab po tid x 3 days then 1 tab po tid x 3 days then 1 tab po bid x 3 days then 1 tab daily x 3 days promethazine (PHENERGAN) 25 mg, oral, Every 8 hours PRN semaglutide 2 mg, subcutaneous, Weekly sertraline (ZOLOFT) 50 mg, oral, Daily silver sulfADIAZINE (Silvadene) 1 % cream Apply to affected area twice a day or with each dressing change. tiotropium (Spiriva with HandiHaler) 18 mcg inhalation capsule 1 capsule, inhalation, Daily RT tiZANidine (ZANAFLEX) 4 mg, Every 6 hours PRN traZODone (DESYREL) 100 mg, oral, Nightly Physical Exam: General: awake, alert and oriented. No acute distress. Skin: Skin is warm, dry and intact without rashes or lesions. HEENT: normocephalic, atraumatic; conjunctivae are clear without exudates or hemorrhage. Sclera is non-icteric. Eyelids are normal in appearance without swelling or lesions. Hearing intact. Nares are patent bilaterally. Moist mucous membranes. Cardiovascular: rhythm is regular; rate is fast Respiratory: coarse rhonchi bilaterally Gastrointestinal: non-distended, non-tender Genitourinary: exam deferred Musculoskeletal: ROM intact, no deformities Extremities: pulses palpable bilaterally; no major swelling or erythema Neurological: no focal deficits Psychiatric: calm Assessment/Plan Sinus tachycardia: -Patient was previously hospitalized around [place] with elevated heart rate at that time and unfortunately signed out AMA. -Telemetry reviewed with resting HR >110 bpm -Echo ordered -Primary team administered Toprol XL 50mg x 1 -Unsure of etiology of tachycardia at this point; differentials include COPD exacerbation; hospital-acquired PNA; adverse effect of ordered medication -Keep Mg above 2 -If HR continues to be elevated, can start Lopressor 50mg twice daily HTN: -Patient hypertensive and has been in the past. Given she is a diabetic, I will start an ARB for kidney function. Will start Losartan 25mg daily Elevated D-dimer: -PE ruled out by CTA; venous duplex ordered to E given reports of leg pain Peripheral IV 04/13/23 20 G Right;Ventral Forearm (Active) Site Assessment Clean;Dry;Intact 04/13/23 0800 Dressing Status Clean;Dry 04/13/23 0800 Number of days: 0 Code Status: Full Code Thank you for allowing me to participate in the care of this patient. Please reach me out if you have any questions or if you need any clarifications regarding the patient's care. JYOTHI Del Rio DNP documented in this encounter [facility] Work Phone: 04-05-2023 Note Formatting of this n ote might be different from the original. Is very pleasant. Was informed per nursing that patient wants to leave by noon. Reviewed with her elevated heart rate from 130s to 160s. Patient is asymptomatic. Discussed with her risk of leaving AGAINST MEDICAL ADVICE. Patient is adamant that she is going to leave the hospital at 1:00 today. AMA papers signed. Reviewed with her risk of readmission, stroke, arrhythmia, pulmonary edema. Instructed patient to follow-up with PCP in 1 week [facility] Work Phone: 04-05-2023 Miscellaneous Notes Is very pleasant. Was informed per nursing that patient wants to leave by noon. Reviewed with her elevated heart rate from 130s to 160s. Patient is asymptomatic. Discussed with her risk of leaving AGAINST MEDICAL ADVICE. Patient is adamant that she is going to leave the hospital at 1:00 today. AMA papers signed. Reviewed with her risk of readmission, stroke, arrhythmia, pulmonary edema. Instructed patient to follow-up with PCP in 1 week The patient's goals for the shift include The clinical goals for the shift include decrease HR Hr remained elevated at 126 documented in this encounter [facility] Work Phone: 04-05-2023 Nurse Note COPD Education Patient Characteristics: Pt. Sitting up in chair on RA no distress noted. Comorbidities: Exacerbation last year: Moderate: >= 2 exacerbations or >= 1 exacerbation leading to hospitalization Spirometry: NO Date: FVC: ( %) FEV1: ( %) FEV1/FVC: ( %) Uses of Oxygen/CPAP/BIPAP: Pt. Does not wear any oxygen and or CPAP or BIPAP at home. Smoking status: Smoker: Current PPY: 52PPY Quit date: Smoking cessation counseling: yes, pt. Has no interest in quitting smoking. Pt. States I like and I've been smoking to long . Booklet given: Pulmonary physician: Pt. Does not follow a Pulmonary Dr. She follows her PCP Callie Mcdonough. Name: Date last seen: Pharmacotherapy: Maintenance medications Breztri, Advair LABA, LAMA, LABA/LAMA, ICS/LABA, ICS/LAMA, ICS/LABA/LAMA, Name of the medication: Albuterol rescue inhaler Prednisone: No Theophylline: No Roflumilast: No Macrolides: No If not on maintenance meds: Consider LAMA or LAMA/LABA Consider ICS (if peripheral eosinophilia >300cells/microl, COPD exacerbation requiring hospitalization, >= 2 moderated COPD exacerbation, History of or concomitant asthma) If low inspiratory force or challenges with inhalers Consider Nebulizers Consider RESPIMAT COPD Education COPD patient education book: Yes, COPD Action Plan Inhaled medication teach-back: Yes BEAU, other videos: Patient demonstrated understanding/teach back method: Yes Home Oxygen Evaluation: Pt. Is at her baseline for oxygen needs. Pulmonary Rehabilitation referral: Not interested. Already attended: When: Info in COPD patient education book Vaccines Influenza: Pneumococcal: COVID 19: Pertussis: Recommendations: Follow up with PCP within two weeks of discharge may benefit [facility] 04-05-2023 Nurse Note COPD Education Patient Characteristics: Pt. Sitting up in chair on RA no distress noted. Comorbidities: Exacerbation last year: Moderate: >= 2 exacerbations or >= 1 exacerbation leading to hospitalization Spirometry: NO Date: FVC: ( %) FEV1: ( %) FEV1/FVC: ( %) Uses of Oxygen/CPAP/BIPAP: Pt. Does not wear any oxygen and or CPAP or BIPAP at home. Smoking status: Smoker: Current PPY: 52PPY Quit date: Smoking cessation counseling: yes, pt. Has no interest in quitting smoking. Pt. States I like and I've been smoking to long . Booklet given: Pulmonary physician: Pt. Does not follow a Pulmonary Dr. She follows her PCP Callie Mcdonough. Name: Date last seen: Pharmacotherapy: Maintenance medications Breztri, Advair LABA, LAMA, LABA/LAMA, ICS/LABA, ICS/LAMA, ICS/LABA/LAMA, Name of the medication: Albuterol rescue inhaler Prednisone: No Theophylline: No Roflumilast: No Macrolides: No If not on maintenance meds: Consider LAMA or LAMA/LABA Consider ICS (if peripheral eosinophilia >300cells/microl, COPD exacerbation requiring hospitalization, >= 2 moderated COPD exacerbation, History of or concomitant asthma) If low inspiratory force or challenges with inhalers Consider Nebulizers Consider RESPIMAT COPD Education COPD patient education book: Yes, COPD Action Plan Inhaled medication teach-back: Yes BEAU, other videos: Patient demonstrated understanding/teach back method: Yes Home Oxygen Evaluation: Pt. Is at her baseline for oxygen needs. Pulmonary Rehabilitation referral: Not interested. Already attended: When: Info in COPD patient education book Vaccines Influenza: Pneumococcal: COVID 19: Pertussis: Recommendations: Follow up with PCP within two weeks of discharge may benefit documented in this encounter [facility] Work Phone: 04-04-2023 History of Present illness Narrative Pt states breathing treatments make her sick. Discussed with Dr. Soliz and treatments to be discontinued. Increased HR. Treatment held. Pt is in no distress and PRN treatment is not needed. RN aware and agrees. documented in this encounter [facility] Work Phone: 04-04-2023 Plan of care note The patient's goals for the shift include The clinical goals for the shift include decrease HR Hr remained elevated at 126 [facility] Work Phone: 04-04-2023 History and physical note History Of Present Illness This is a 67-year-old female presenting to [facility] with a chief complaint of left knee pain that has been ongoing for months. Patient states to the ER provider that she bent over to pick something up approximately 4 days ago and pain worsened. Described as an aching nature worse with movement. She is being evaluated by orthopedic surgery for this. Radiological studies unremarkable for any acute fracture or septic joint. Incidentally while in the ER patient noted to have sinus tachycardia with heart rates consistent in the 140s. Patient without a history of CAD, RI or arrhythmia. On further exam by this LEANNA, patient with bilateral lung sounds with diffuse coarse wheezing and diminished airway movement. Not requiring supplemental O2 and did not note any conversational dyspnea. No edema, erythema or swelling to the left knee or bilateral lower extremities. Patient does report progressive shortness of breath with compliance of her inhalers at home over the last 2 to 3 days. She also reports that she completed outpatient antibiotics and Imodium therapy for gastroenteritis on . She states she had nausea, nonbloody emesis diarrhea at 2-3 episodes daily for 72 hours straight prior to starting treatment prescribed by her PCP which is now resolved. Patient to be admitted overnight for observation given the sinus tachycardia. Review of systems: 10 system were reviewed and were negative except what was mentioned in history of present illness Past Medical History Past Medical History: Diagnosis Date Fall 04/01/2022 Comment on above: FALL H/O mammogram 2021 2021-NORMAL- [facility] Influenza vaccination declined 11/2021 Pap smear for cervical cancer screening 02/2022- NORMAL- DONE AT [address] [place] [address] Diabetes mellitus type 2 COPD History of liver cirrhosis ? Versus fatty liver Chronic knee and back pain GERD Depression Vitamin B12 deficiency Vitamin D deficiency Hypothyroidism Hypercholesteremia Obesity History of renal insufficiency Surgical History Past Surgical History: Procedure Laterality Date COLONOSCOPY 2020 [facility] - NORMAL REPEAT IN 10 YEARS OOPHORECTOMY 10/30/1999 OTHER SURGICAL HISTORY Bilateral MEDIAL BRANCH BLOCK - PETEY BLANCHARD (PAIN MANAGEMENT) BILAT- L4-S1 MBB OTHER SURGICAL HISTORY 12/25/2021 Medial branch block Social History Denies any drug or alcohol use. Patient is a current tobacco smoker Social History Socioeconomic History Marital status: Spouse name: Not on file Number of children: Not on file Years of education: Not on file Highest education level: Not on file Occupational History Not on file Tobacco Use Smoking status: Every Day Packs/day: .5 Types: Cigarettes Smokeless tobacco: Never Vaping Use Vaping Use: Never used Substance and Sexual Activity Alcohol use: Yes Comment: OCCASIONALLY Drug use: Never Sexual activity: Defer Other Topics Concern Not on file Social History Narrative Not on file Social Determinants of Health Financial Resource Strain: Not on file Food Insecurity: Not on file Transportation Needs: Not on file Physical Activity: Not on file Stress: Not on file Social Connections: Not on file Intimate Partner Violence: Not on file Housing Stability: Not on file Family History Reviewed and not pertinent to patient presentation Allergies Allergies Allergen Reactions Gemfibrozil Other abd cramps Physical Exam Physical Exam Constitutional: Appearance: Normal appearance. She is obese. HENT: Head: Normocephalic and atraumatic. Mouth/Throat: Mouth: Mucous membranes are moist. Eyes: Extraocular Movements: Extraocular movements intact. Pupils: Pupils are equal, round, and reactive to light. Cardiovascular: Rate and Rhythm: Normal rate and regular rhythm. Pulses: Normal pulses. Heart sounds: Normal heart sounds. No murmur heard. No gallop. Pulmonary: Effort: No respiratory distress. Breath sounds: Wheezing present. No rhonchi or rales. Comments: Diffuse wheezes throughout all lobes with diminished air movement. Not on O2. No conversational dyspnea Abdominal: General: Abdomen is flat. Bowel sounds are normal. There is no distension. Palpations: Abdomen is soft. There is no mass. Tenderness: There is no abdominal tenderness. There is no rebound. Hernia: No hernia is present. Musculoskeletal: General: No swelling, tenderness or signs of injury. Normal range of motion. Cervical back: Normal range of motion and neck supple. Right lower leg: No edema. Left lower leg: No edema. Skin: General: Skin is warm and dry. Capillary Refill: Capillary refill takes less than 2 seconds. Findings: No bruising, erythema or rash. Neurological: General: No focal deficit present. Mental Status: She is alert and oriented to person, place, and time. Cranial Nerves: No cranial nerve deficit. Sensory: No sensory deficit. Motor: No weakness. Psychiatric: Mood and Affect: Mood normal. Behavior: Behavior normal. Last Recorded Vitals Visit Vitals BP 125/79 Pulse (!) 144 Temp 36.2 C (97.2 F) (Tympanic) Resp 18 Scheduled medications nicotine, 1 patch, transdermal, Daily Continuous medications PRN medications Relevant Results Results for orders placed or performed during the hospital encounter of 04/04/23 (from the past 96 hour(s)) CBC and Auto Differential Result Value Ref Range WBC 8.0 4.4 - 11.3 x10*3/uL nRBC 0.0 0.0 - 0.0 /100 WBCs RBC 4.71 4.00 - 5.20 x10*6/uL Hemoglobin 14.3 12.0 - 16.0 g/dL Hematocrit 42.2 36.0 - 46.0 % MCV 90 80 - 100 fL MCH 30.4 26.0 - 34.0 pg MCHC 33.9 32.0 - 36.0 g/dL RDW 13.3 11.5 - 14.5 % Platelets 113 (L) 150 - 450 x10*3/uL Neutrophils % 68.6 40.0 - 80.0 % Immature Granulocytes %, Automated 1.0 (H) 0.0 - 0.9 % Lymphocytes % 23.5 13.0 - 44.0 % Monocytes % 5.9 2.0 - 10.0 % Eosinophils % 0.6 0.0 - 6.0 % Basophils % 0.4 0.0 - 2.0 % Neutrophils Absolute 5.51 1.20 - 7.70 x10*3/uL Immature Granulocytes Absolute, Automated 0.08 0.00 - 0.70 x10*3/uL Lymphocytes Absolute 1.89 1.20 - 4.80 x10*3/uL Monocytes Absolute 0.47 0.10 - 1.00 x10*3/uL Eosinophils Absolute 0.05 0.00 - 0.70 x10*3/uL Basophils Absolute 0.03 0.00 - 0.10 x10*3/uL Comprehensive metabolic panel Result Value Ref Range Glucose 136 (H) 74 - 99 mg/dL Sodium 138 136 - 145 mmol/L Potassium 3.9 3.5 - 5.3 mmol/L Chloride 104 98 - 107 mmol/L Bicarbonate 27 21 - 32 mmol/L Anion Gap 11 10 - 20 mmol/L Urea Nitrogen 9 6 - 23 mg/dL Creatinine 1.04 0.50 - 1.05 mg/dL eGFR 59 (L) >60 mL/min/1.73m*2 Calcium 8.4 (L) 8.6 - 10.3 mg/dL Albumin 3.1 (L) 3.4 - 5.0 g/dL Alkaline Phosphatase 82 33 - 136 U/L Total Protein 6.7 6.4 - 8.2 g/dL AST 14 9 - 39 U/L Bilirubin, Total 0.4 0.0 - 1.2 mg/dL ALT 11 7 - 45 U/L Protime-INR Result Value Ref Range Protime 12.7 9.8 - 12.8 seconds INR 1.1 0.9 - 1.1 Troponin I, High Sensitivity Result Value Ref Range Troponin I, High Sensitivity 5 0 - 13 ng/L aPTT Result Value Ref Range aPTT 34 27 - 38 seconds Urinalysis with Reflex Culture and Microscopic Result Value Ref Range Color, Urine Yellow Straw, Yellow Appearance, Urine Hazy (N) Clear Specific [employer], Urine 1.026 1.005 - 1.035 pH, Urine 5.0 5.0, 5.5, 6.0, 6.5, 7.0, 7.5, 8.0 Protein, Urine 100 (2+) (N) NEGATIVE mg/dL Glucose, Urine NEGATIVE NEGATIVE mg/dL Blood, Urine SMALL (1+) (A) NEGATIVE Ketones, Urine NEGATIVE NEGATIVE mg/dL Bilirubin, Urine NEGATIVE NEGATIVE Urobilinogen, Urine <2.0 <2.0 mg/dL Nitrite, Urine NEGATIVE NEGATIVE Leukocyte Esterase, Urine NEGATIVE NEGATIVE Urinalysis Microscopic Result Value Ref Range WBC, Urine 1-5 1-5, NONE /HPF RBC, Urine 1-2 NONE, 1-2, 3-5 /HPF Squamous Epithelial Cells, Urine 1-9 (SPARSE) Reference range not established. /HPF Bacteria, Urine 1+ (A) NONE SEEN /HPF XR knee left 4+ views Result Date: 04/04/2023 Interpreted By: Sharyn Carranza, STUDY: XR KNEE LEFT 4+ VIEWS; ; 04/04/2023 12:22 pm INDICATION: Signs/Symptoms:knee pain. COMPARISON: None. ACCESSION NUMBER(S): [id number] ORDERING CLINICIAN: BALBIR TAVARES FINDINGS: Minimal medial compartment narrowing. No acute fracture dislocation or bone lesion. No joint effusion. No acute findings. MACRO: None Signed by: Sharyn Carranza 04/04/2023 12:31 PM Dictation workstation: [id number] CT angio chest for pulmonary embolism Result Date: 04/04/2023 STUDY: CT Angiogram of the Chest; 04/04/23 at 10:10 AM INDICATION: New onset Afib. Leg pain. COMPARISON: CT AP 10/18/22. Chest XR 09/22/21. ACCESSION NUMBER(S): [id number] ORDERING CLINICIAN: BALBIR TAVARES TECHNIQUE: CTA of the chest was performed with intravenous contrast. Images are reviewed and processed at a workstation according to the CT angiogram protocol with 3-D and/or MIP post processing imaging generated. Omnipaque 350 68 mL was administered intravenously. Automated mA/kV exposure control was utilized and patient examination was performed in strict accordance with principles of ALARA. FINDINGS: Pulmonary arteries are adequately opacified without acute or chronic filling defects. The thoracic aorta is normal in course and caliber without dissection or aneurysm. The heart is normal in size without pericardial effusion. Mild to moderate coronary artery calcifications. Thoracic lymph nodes are not enlarged. There is no pleural effusion, pleural thickening, or pneumothorax. Mild diffuse bronchial wall thickening with some associated mucous plugging in the right lower lobe. Minimal ground glass opacities in the right upper lobe. There is fatty infiltration of the liver with cirrhotic morphology of the liver. Spleen is mildly enlarged. Right adrenal adenoma measuring 1.8 cm. Gallbladder is absent. There are no acute fractures. No suspicious bony lesions. 1. No pulmonary embolism. 2. Mild diffuse bronchial wall thickening with some associated mucous plugging in the right lower lobe. Minimal ground glass opacities in the right upper lobe. Findings suggestive of bronchitis. 3. Mild to moderate coronary artery calcifications. 4. Hepatic steatosis with morphologic changes of underlying cirrhosis. 5. Right adrenal adenoma. 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 TSH, blood cultures, magnesium level pending CTA of the chest showing bronchitis with possible developing. No PE Radiological studies of left knee unremarkable. UA without UTI Monitor on telemetry for significant tachy/angelo arrhythmia Monitor and replace electrolytes per protocol Resume patient home medications as appropriate Hold oral antidiabetic medications for now and resume at discharge. Accu-Cheks before meals and at bedtime with SSI Cover with IV Rocephin and azithromycin given bronchitis with developing community-acquired pneumonia. Nebulizer treatments with RT-will utilize Xopenex as patient with sinus tachycardia Start IV fluids for volume repletion As needed antitussives, antiemetics, mucolytic's and pain medications Smoking cessation encouraged. Nicotine replacement therapy at patient request Discharge is pending patient's clinical course. Anticipated length of stay 24 to 48 hours pending the aforementioned. DVTp: Lovenox A total of 78 minutes was spent on this visit Plan of care was discussed extensively with patient. Patient verbalized understanding through teach back method. All questions and concerns addressed upon examination. Of note, this documentation is completed using the [employer] Dictation system (voice recognition software). There may be spelling and/or grammatical errors that were not corrected prior to final submission [facility] Work Phone: 04-04-2023 History and physical note History Of Present Illness This is a 67-year-old female presenting to [facility] with a chief complaint of left knee pain that has been ongoing for months. Patient states to the ER provider that she bent over to pick something up approximately 4 days ago and pain worsened. Described as an aching nature worse with movement. She is being evaluated by orthopedic surgery for this. Radiological studies unremarkable for any acute fracture or septic joint. Incidentally while in the ER patient noted to have sinus tachycardia with heart rates consistent in the 140s. Patient without a history of CAD, RI or arrhythmia. On further exam by this LEANNA, patient with bilateral lung sounds with diffuse coarse wheezing and diminished airway movement. Not requiring supplemental O2 and did not note any conversational dyspnea. No edema, erythema or swelling to the left knee or bilateral lower extremities. Patient does report progressive shortness of breath with compliance of her inhalers at home over the last 2 to 3 days. She also reports that she completed outpatient antibiotics and Imodium therapy for gastroenteritis on . She states she had nausea, nonbloody emesis diarrhea at 2-3 episodes daily for 72 hours straight prior to starting treatment prescribed by her PCP which is now resolved. Patient to be admitted overnight for observation given the sinus tachycardia. Review of systems: 10 system were reviewed and were negative except what was mentioned in history of present illness Past Medical History Past Medical History: Diagnosis Date Fall 04/01/2022 Comment on above: FALL H/O mammogram 2021 2021-NORMAL- [facility] Influenza vaccination declined 11/2021 Pap smear for cervical cancer screening 02/2022- NORMAL- DONE AT [address] [place] [address] Diabetes mellitus type 2 COPD History of liver cirrhosis ? Versus fatty liver Chronic knee and back pain GERD Depression Vitamin B12 deficiency Vitamin D deficiency Hypothyroidism Hypercholesteremia Obesity History of renal insufficiency Surgical History Past Surgical History: Procedure Laterality Date COLONOSCOPY 2020 [facility] - NORMAL REPEAT IN 10 YEARS OOPHORECTOMY 10/30/1999 OTHER SURGICAL HISTORY Bilateral MEDIAL BRANCH BLOCK - PETEY BLANCHARD (PAIN MANAGEMENT) BILAT- L4-S1 MBB OTHER SURGICAL HISTORY 12/25/2021 Medial branch block Social History Denies any drug or alcohol use. Patient is a current tobacco smoker Social History Socioeconomic History Marital status: Spouse name: Not on file Number of children: Not on file Years of education: Not on file Highest education level: Not on file Occupational History Not on file Tobacco Use Smoking status: Every Day Packs/day: .5 Types: Cigarettes Smokeless tobacco: Never Vaping Use Vaping Use: Never used Substance and Sexual Activity Alcohol use: Yes Comment: OCCASIONALLY Drug use: Never Sexual activity: Defer Other Topics Concern Not on file Social History Narrative Not on file Social Determinants of Health Financial Resource Strain: Not on file Food Insecurity: Not on file Transportation Needs: Not on file Physical Activity: Not on file Stress: Not on file Social Connections: Not on file Intimate Partner Violence: Not on file Housing Stability: Not on file Family History Reviewed and not pertinent to patient presentation Allergies Allergies Allergen Reactions Gemfibrozil Other abd cramps Physical Exam Physical Exam Constitutional: Appearance: Normal appearance. She is obese. HENT: Head: Normocephalic and atraumatic. Mouth/Throat: Mouth: Mucous membranes are moist. Eyes: Extraocular Movements: Extraocular movements intact. Pupils: Pupils are equal, round, and reactive to light. Cardiovascular: Rate and Rhythm: Normal rate and regular rhythm. Pulses: Normal pulses. Heart sounds: Normal heart sounds. No murmur heard. No gallop. Pulmonary: Effort: No respiratory distress. Breath sounds: Wheezing present. No rhonchi or rales. Comments: Diffuse wheezes throughout all lobes with diminished air movement. Not on O2. No conversational dyspnea Abdominal: General: Abdomen is flat. Bowel sounds are normal. There is no distension. Palpations: Abdomen is soft. There is no mass. Tenderness: There is no abdominal tenderness. There is no rebound. Hernia: No hernia is present. Musculoskeletal: General: No swelling, tenderness or signs of injury. Normal range of motion. Cervical back: Normal range of motion and neck supple. Right lower leg: No edema. Left lower leg: No edema. Skin: General: Skin is warm and dry. Capillary Refill: Capillary refill takes less than 2 seconds. Findings: No bruising, erythema or rash. Neurological: General: No focal deficit present. Mental Status: She is alert and oriented to person, place, and time. Cranial Nerves: No cranial nerve deficit. Sensory: No sensory deficit. Motor: No weakness. Psychiatric: Mood and Affect: Mood normal. Behavior: Behavior normal. Last Recorded Vitals Visit Vitals BP 125/79 Pulse (!) 144 Temp 36.2 C (97.2 F) (Tympanic) Resp 18 Scheduled medications nicotine, 1 patch, transdermal, Daily Continuous medications PRN medications Relevant Results Results for orders placed or performed during the hospital encounter of 04/04/23 (from the past 96 hour(s)) CBC and Auto Differential Result Value Ref Range WBC 8.0 4.4 - 11.3 x10*3/uL nRBC 0.0 0.0 - 0.0 /100 WBCs RBC 4.71 4.00 - 5.20 x10*6/uL Hemoglobin 14.3 12.0 - 16.0 g/dL Hematocrit 42.2 36.0 - 46.0 % MCV 90 80 - 100 fL MCH 30.4 26.0 - 34.0 pg MCHC 33.9 32.0 - 36.0 g/dL RDW 13.3 11.5 - 14.5 % Platelets 113 (L) 150 - 450 x10*3/uL Neutrophils % 68.6 40.0 - 80.0 % Immature Granulocytes %, Automated 1.0 (H) 0.0 - 0.9 % Lymphocytes % 23.5 13.0 - 44.0 % Monocytes % 5.9 2.0 - 10.0 % Eosinophils % 0.6 0.0 - 6.0 % Basophils % 0.4 0.0 - 2.0 % Neutrophils Absolute 5.51 1.20 - 7.70 x10*3/uL Immature Granulocytes Absolute, Automated 0.08 0.00 - 0.70 x10*3/uL Lymphocytes Absolute 1.89 1.20 - 4.80 x10*3/uL Monocytes Absolute 0.47 0.10 - 1.00 x10*3/uL Eosinophils Absolute 0.05 0.00 - 0.70 x10*3/uL Basophils Absolute 0.03 0.00 - 0.10 x10*3/uL Comprehensive metabolic panel Result Value Ref Range Glucose 136 (H) 74 - 99 mg/dL Sodium 138 136 - 145 mmol/L Potassium 3.9 3.5 - 5.3 mmol/L Chloride 104 98 - 107 mmol/L Bicarbonate 27 21 - 32 mmol/L Anion Gap 11 10 - 20 mmol/L Urea Nitrogen 9 6 - 23 mg/dL Creatinine 1.04 0.50 - 1.05 mg/dL eGFR 59 (L) >60 mL/min/1.73m*2 Calcium 8.4 (L) 8.6 - 10.3 mg/dL Albumin 3.1 (L) 3.4 - 5.0 g/dL Alkaline Phosphatase 82 33 - 136 U/L Total Protein 6.7 6.4 - 8.2 g/dL AST 14 9 - 39 U/L Bilirubin, Total 0.4 0.0 - 1.2 mg/dL ALT 11 7 - 45 U/L Protime-INR Result Value Ref Range Protime 12.7 9.8 - 12.8 seconds INR 1.1 0.9 - 1.1 Troponin I, High Sensitivity Result Value Ref Range Troponin I, High Sensitivity 5 0 - 13 ng/L aPTT Result Value Ref Range aPTT 34 27 - 38 seconds Urinalysis with Reflex Culture and Microscopic Result Value Ref Range Color, Urine Yellow Straw, Yellow Appearance, Urine Hazy (N) Clear Specific [employer], Urine 1.026 1.005 - 1.035 pH, Urine 5.0 5.0, 5.5, 6.0, 6.5, 7.0, 7.5, 8.0 Protein, Urine 100 (2+) (N) NEGATIVE mg/dL Glucose, Urine NEGATIVE NEGATIVE mg/dL Blood, Urine SMALL (1+) (A) NEGATIVE Ketones, Urine NEGATIVE NEGATIVE mg/dL Bilirubin, Urine NEGATIVE NEGATIVE Urobilinogen, Urine <2.0 <2.0 mg/dL Nitrite, Urine NEGATIVE NEGATIVE Leukocyte Esterase, Urine NEGATIVE NEGATIVE Urinalysis Microscopic Result Value Ref Range WBC, Urine 1-5 1-5, NONE /HPF RBC, Urine 1-2 NONE, 1-2, 3-5 /HPF Squamous Epithelial Cells, Urine 1-9 (SPARSE) Reference range not established. /HPF Bacteria, Urine 1+ (A) NONE SEEN /HPF XR knee left 4+ views Result Date: 04/04/2023 Interpreted By: Sharyn Carranza, STUDY: XR KNEE LEFT 4+ VIEWS; ; 04/04/2023 12:22 pm INDICATION: Signs/Symptoms:knee pain. COMPARISON: None. ACCESSION NUMBER(S): [id number] ORDERING CLINICIAN: BALBIR TAVARES FINDINGS: Minimal medial compartment narrowing. No acute fracture dislocation or bone lesion. No joint effusion. No acute findings. MACRO: None Signed by: Sharyn Carranza 04/04/2023 12:31 PM Dictation workstation: [id number] CT angio chest for pulmonary embolism Result Date: 04/04/2023 STUDY: CT Angiogram of the Chest; 04/04/23 at 10:10 AM INDICATION: New onset Afib. Leg pain. COMPARISON: CT AP 10/18/22. Chest XR 09/22/21. ACCESSION NUMBER(S): [id number] ORDERING CLINICIAN: BALBIR TAVARES TECHNIQUE: CTA of the chest was performed with intravenous contrast. Images are reviewed and processed at a workstation according to the CT angiogram protocol with 3-D and/or MIP post processing imaging generated. Omnipaque 350 68 mL was administered intravenously. Automated mA/kV exposure control was utilized and patient examination was performed in strict accordance with principles of ALARA. FINDINGS: Pulmonary arteries are adequately opacified without acute or chronic filling defects. The thoracic aorta is normal in course and caliber without dissection or aneurysm. The heart is normal in size without pericardial effusion. Mild to moderate coronary artery calcifications. Thoracic lymph nodes are not enlarged. There is no pleural effusion, pleural thickening, or pneumothorax. Mild diffuse bronchial wall thickening with some associated mucous plugging in the right lower lobe. Minimal ground glass opacities in the right upper lobe. There is fatty infiltration of the liver with cirrhotic morphology of the liver. Spleen is mildly enlarged. Right adrenal adenoma measuring 1.8 cm. Gallbladder is absent. There are no acute fractures. No suspicious bony lesions. 1. No pulmonary embolism. 2. Mild diffuse bronchial wall thickening with some associated mucous plugging in the right lower lobe. Minimal ground glass opacities in the right upper lobe. Findings suggestive of bronchitis. 3. Mild to moderate coronary artery calcifications. 4. Hepatic steatosis with morphologic changes of underlying cirrhosis. 5. Right adrenal adenoma. 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 TSH, blood cultures, magnesium level pending CTA of the chest showing bronchitis with possible developing. No PE Radiological studies of left knee unremarkable. UA without UTI Monitor on telemetry for significant tachy/angelo arrhythmia Monitor and replace electrolytes per protocol Resume patient home medications as appropriate Hold oral antidiabetic medications for now and resume at discharge. Accu-Cheks before meals and at bedtime with SSI Cover with IV Rocephin and azithromycin given bronchitis with developing community-acquired pneumonia. Nebulizer treatments with RT-will utilize Xopenex as patient with sinus tachycardia Start IV fluids for volume repletion As needed antitussives, antiemetics, mucolytic's and pain medications Smoking cessation encouraged. Nicotine replacement therapy at patient request Discharge is pending patient's clinical course. Anticipated length of stay 24 to 48 hours pending the aforementioned. DVTp: Lovenox A total of 78 minutes was spent on this visit Plan of care was discussed extensively with patient. Patient verbalized understanding through teach back method. All questions and concerns addressed upon examination. Of note, this documentation is completed using the [employer] Dictation system (voice recognition software). There may be spelling and/or grammatical errors that were not corrected prior to final submission documented in this encounter [facility] Work Phone: 04-04-2023 Emergency department Note Associated Order(s): ECG 12 lead HPI Chief Complaint Patient presents with Knee Pain C/o left knee pain for awhile, and has been seeing ortho. Then 4 days ago she bent over and c/o increased pain. Limitations to History: None HPI: 67-year-old female presents with left knee pain. Patient states it has been chronic in nature. Is seen orthopedic surgery in the past. Worsening pain over the past 2 to 3 days. Aching in nature. Worse with movement. Denies any numbness, tingling, fall, trauma, fever, chills. -- Physical Exam: VS: As documented in the triage note and EMR flowsheet from this visit were reviewed. Appearance: Alert. cooperative, in no acute distress. Skin: Intact, dry skin, no lesions, rash, petechiae or purpura. Eyes: PERRLA, EOMs intact, Conjunctiva pink with no redness or exudates. HENT: Normocephalic, atraumatic. Nares patent. No intraoral lesions. Neck: Supple, without meningismus. Trachea at midline. No lymphadenopathy. Pulmonary: Clear bilaterally with good chest wall excursion. No rales, rhonchi or wheezing. No accessory muscle use or stridor. Cardiac: Tachycardic and regular rhythm, no rubs, murmurs, or gallops. Abdomen: Abdomen is soft, nontender, and nondistended. No palpable organomegaly. No rebound or guarding. No CVA tenderness. Nonsurgical abdomen Genitourinary: Exam deferred. Musculoskeletal: Full range of motion. Pulses full and equal. No cyanosis, clubbing, or edema. Neurological: Cranial nerves are grossly intact, grossly normal sensation, no weakness, no focal findings identified. Psychiatric: Appropriate mood and affect. [place] Coma Scale Score: 15 Patient History Past Medical History: Diagnosis Date Fall 04/01/2022 Comment on above: FALL H/O mammogram 2021 2021-NORMAL- [facility] Influenza vaccination declined 11/2021 Pap smear for cervical cancer screening 02/2022- NORMAL- DONE AT [address] [place] [address] Past Surgical History: Procedure Laterality Date COLONOSCOPY 2020 [facility] - NORMAL REPEAT IN 10 YEARS OOPHORECTOMY 10/30/1999 OTHER SURGICAL HISTORY Bilateral MEDIAL BRANCH BLOCK - PETEY BLANCHARD (PAIN MANAGEMENT) BILAT- L4-S1 MBB OTHER SURGICAL HISTORY 12/25/2021 Medial branch block Family History Problem Relation Name Age of Onset Aneurysm Mother Edema Father 1969 Other (MALIGNANT NEOPLASM) Brother Cancer Father's Sister 2-3 AUNTS ON FATHER SIDE Social History Tobacco Use Smoking status: Every Day Packs/day: .5 Types: Cigarettes Smokeless tobacco: Never Vaping Use Vaping Use: Never used Substance Use Topics Alcohol use: Yes Comment: OCCASIONALLY Drug use: Never Physical Exam ED Triage Vitals [04/04/23 0850] Temp Heart Rate Resp BP 36.2 C (97.2 F) (!) 144 20 135/88 SpO2 Temp Source Heart Rate Source Patient Position -- Tympanic Monitor -- BP Location FiO2 (%) -- -- Physical Exam ED Course & MDM Diagnoses as of 04/04/23 1407 Acute pain of left knee Tachycardia Acute bronchitis, unspecified organism Medical Decision Making Labs Reviewed CBC WITH AUTO DIFFERENTIAL - Abnormal WBC 8.0 nRBC 0.0 RBC 4.71 Hemoglobin 14.3 Hematocrit 42.2 MCV 90 MCH 30.4 MCHC 33.9 RDW 13.3 Platelets 113 (*) Neutrophils % 68.6 Immature Granulocytes %, Automated 1.0 (*) Lymphocytes % 23.5 Monocytes % 5.9 Eosinophils % 0.6 Basophils % 0.4 Neutrophils Absolute 5.51 Immature Granulocytes Absolute, Au* 0.08 Lymphocytes Absolute 1.89 Monocytes Absolute 0.47 Eosinophils Absolute 0.05 Basophils Absolute 0.03 COMPREHENSIVE METABOLIC PANEL - Abnormal Glucose 136 (*) Sodium 138 Potassium 3.9 Chloride 104 Bicarbonate 27 Anion Gap 11 Urea Nitrogen 9 Creatinine 1.04 eGFR 59 (*) Calcium 8.4 (*) Albumin 3.1 (*) Alkaline Phosphatase 82 Total Protein 6.7 AST 14 Bilirubin, Total 0.4 ALT 11 URINALYSIS WITH REFLEX CULTURE AND MICROSCOPIC - Abnormal Color, Urine Yellow Appearance, Urine Hazy (*) Specific [employer], Urine 1.026 pH, Urine 5.0 Protein, Urine 100 (2+) (*) Glucose, Urine NEGATIVE Blood, Urine SMALL (1+) (*) Ketones, Urine NEGATIVE Bilirubin, Urine NEGATIVE Urobilinogen, Urine <2.0 Nitrite, Urine NEGATIVE Leukocyte Esterase, Urine NEGATIVE URINALYSIS MICROSCOPIC WITH REFLEX CULTURE - Abnormal WBC, Urine 1-5 RBC, Urine 1-2 Squamous Epithelial Cells, Urine Bacteria, Urine 1+ (*) PROTIME-INR - Normal Protime 12.7 INR 1.1 TROPONIN I, HIGH SENSITIVITY - Normal Troponin I, High Sensitivity 5 Narrative: Less than 99th percentile of normal range cutoff- Female and children under 18 years old <14 ng/L; Male <21 ng/L: Negative Repeat testing should be performed if clinically indicated. Female and children under 18 years old 14-50 ng/L; Male 21-50 ng/L: Consistent with possible cardiac damage and possible increased clinical risk. Serial measurements may help to assess extent of myocardial damage. >50 ng/L: Consistent with cardiac damage, increased clinical risk and myocardial infarction. Serial measurements may help assess extent of myocardial damage. NOTE: Children less than 1 year old may have higher baseline troponin levels and results should be interpreted in conjunction with the overall clinical context. NOTE: Troponin I testing is performed using a different testing methodology at [facility] than at other [facility] hospitals. Direct result comparisons should only be made within the same method. APTT - Normal aPTT 34 Narrative: The APTT is no longer used for monitoring Unfractionated Heparin Therapy. For monitoring Heparin Therapy, use the Heparin Assay. BLOOD CULTURE URINALYSIS WITH REFLEX CULTURE AND MICROSCOPIC Narrative: The following orders were created for panel order Urinalysis with Reflex Culture and Microscopic. Procedure Abnormality Status --------- ------ Urinalysis with Reflex C...[[id number]] Abnormal Final result Extra Urine Haley Tube[[id number]] In process Please view results for these tests on the individual orders. EXTRA URINE HALEY TUBE TROPONIN I, HIGH SENSITIVITY TSH WITH REFLEX TO FREE T4 IF ABNORMAL MAGNESIUM SARS-COV-2 PCR, SYMPTOMATIC INFLUENZA A AND B PCR XR knee left 4+ views Final Result No acute findings. MACRO: None Signed by: Sharyn Carranza 04/04/2023 12:31 PM Dictation workstation: [id number] CT angio chest for pulmonary embolism Final Result 1. No pulmonary embolism. 2. Mild diffuse bronchial wall thickening with some associated mucous plugging in the right lower lobe. Minimal ground glass opacities in the right upper lobe. Findings suggestive of bronchitis. 3. Mild to moderate coronary artery calcifications. 4. Hepatic steatosis with morphologic changes of underlying cirrhosis. 5. Right adrenal adenoma. Signed by Loyd Diaz MD Medical Decision Making: Patient appears well nontoxic. Tachycardic upon arrival. EKG shows sinus tachycardia. Lab work otherwise unremarkable. CTA of the chest shows bronchitis versus pneumonia. Treated with intravenous Solu-Medrol, 1 L of normal saline, Rocephin, doxycycline intravenously. Left knee x-ray negative. Low concern for septic arthritis. Patient will be admitted given her continued tachycardia. Stable at time of admission. Differential Diagnoses Considered: Pneumonia, bronchitis, pulmonary embolism, septic arthritis, chronic knee pain, volume depletion Independent Interpretation of Studies: I independently interpreted: CTA of the chest shows no evidence of central pulmonary embolism. Left knee x-ray shows no evidence of acute fracture or dislocation. Escalation of Care: Appropriate for admission for further treatment and evaluation. Discussion of Management with Other Providers: I discussed the patient/results with: Admitting hospitalist. Procedure ECG 12 lead Performed by: Balbir Tavares DO Authorized by: Balbir Tavares DO ECG interpreted by ED Physician in the absence of a donkey doctor: yes Comments: EKG interpreted by Dr. Balbir Tavares: Sinus tachycardia at a rate of 140 bpm. OH interval 74 ms. QTc of [address] changes. PVC Balbir Tavares 04/04/23 1407 Balbir Tavares, DO 04/04/23 1430 documented in this encounter [facility] Work Phone: 04-04-2023 Physician Emergency department Note Associated Order(s): ECG 12 lead HPI Chief Complaint Patient presents with Knee Pain C/o left knee pain for awhile, and has been seeing ortho. Then 4 days ago she bent over and c/o increased pain. Limitations to History: None HPI: 67-year-old female presents with left knee pain. Patient states it has been chronic in nature. Is seen orthopedic surgery in the past. Worsening pain over the past 2 to 3 days. Aching in nature. Worse with movement. Denies any numbness, tingling, fall, trauma, fever, chills. -- Physical Exam: VS: As documented in the triage note and EMR flowsheet from this visit were reviewed. Appearance: Alert. cooperative, in no acute distress. Skin: Intact, dry skin, no lesions, rash, petechiae or purpura. Eyes: PERRLA, EOMs intact, Conjunctiva pink with no redness or exudates. HENT: Normocephalic, atraumatic. Nares patent. No intraoral lesions. Neck: Supple, without meningismus. Trachea at midline. No lymphadenopathy. Pulmonary: Clear bilaterally with good chest wall excursion. No rales, rhonchi or wheezing. No accessory muscle use or stridor. Cardiac: Tachycardic and regular rhythm, no rubs, murmurs, or gallops. Abdomen: Abdomen is soft, nontender, and nondistended. No palpable organomegaly. No rebound or guarding. No CVA tenderness. Nonsurgical abdomen Genitourinary: Exam deferred. Musculoskeletal: Full range of motion. Pulses full and equal. No cyanosis, clubbing, or edema. Neurological: Cranial nerves are grossly intact, grossly normal sensation, no weakness, no focal findings identified. Psychiatric: Appropriate mood and affect. [place] Coma Scale Score: 15 Patient History Past Medical History: Diagnosis Date Fall 04/01/2022 Comment on above: FALL H/O mammogram 2021 2021-NORMAL- [facility] Influenza vaccination declined 11/2021 Pap smear for cervical cancer screening 02/2022- NORMAL- DONE AT [address] [place] [address] Past Surgical History: Procedure Laterality Date COLONOSCOPY 2020 [facility] - NORMAL REPEAT IN 10 YEARS OOPHORECTOMY 10/30/1999 OTHER SURGICAL HISTORY Bilateral MEDIAL BRANCH BLOCK - PETEY BLANCHARD (PAIN MANAGEMENT) BILAT- L4-S1 MBB OTHER SURGICAL HISTORY 12/25/2021 Medial branch block Family History Problem Relation Name Age of Onset Aneurysm Mother Edema Father 1970 Other (MALIGNANT NEOPLASM) Brother Cancer Father's Sister 2-3 AUNTS ON FATHER SIDE Social History Tobacco Use Smoking status: Every Day Packs/day: .5 Types: Cigarettes Smokeless tobacco: Never Vaping Use Vaping Use: Never used Substance Use Topics Alcohol use: Yes Comment: OCCASIONALLY Drug use: Never Physical Exam ED Triage Vitals [04/04/23 0850] Temp Heart Rate Resp BP 36.2 C (97.2 F) (!) 144 20 135/88 SpO2 Temp Source Heart Rate Source Patient Position -- Tympanic Monitor -- BP Location FiO2 (%) -- -- Physical Exam ED Course & MDM Diagnoses as of 04/04/23 1407 Acute pain of left knee Tachycardia Acute bronchitis, unspecified organism Medical Decision Making Labs Reviewed CBC WITH AUTO DIFFERENTIAL - Abnormal WBC 8.0 nRBC 0.0 RBC 4.71 Hemoglobin 14.3 Hematocrit 42.2 MCV 90 MCH 30.4 MCHC 33.9 RDW 13.3 Platelets 113 (*) Neutrophils % 68.6 Immature Granulocytes %, Automated 1.0 (*) Lymphocytes % 23.5 Monocytes % 5.9 Eosinophils % 0.6 Basophils % 0.4 Neutrophils Absolute 5.51 Immature Granulocytes Absolute, Au* 0.08 Lymphocytes Absolute 1.89 Monocytes Absolute 0.47 Eosinophils Absolute 0.05 Basophils Absolute 0.03 COMPREHENSIVE METABOLIC PANEL - Abnormal Glucose 136 (*) Sodium 138 Potassium 3.9 Chloride 104 Bicarbonate 27 Anion Gap 11 Urea Nitrogen 9 Creatinine 1.04 eGFR 59 (*) Calcium 8.4 (*) Albumin 3.1 (*) Alkaline Phosphatase 82 Total Protein 6.7 AST 14 Bilirubin, Total 0.4 ALT 11 URINALYSIS WITH REFLEX CULTURE AND MICROSCOPIC - Abnormal Color, Urine Yellow Appearance, Urine Hazy (*) Specific [employer], Urine 1.026 pH, Urine 5.0 Protein, Urine 100 (2+) (*) Glucose, Urine NEGATIVE Blood, Urine SMALL (1+) (*) Ketones, Urine NEGATIVE Bilirubin, Urine NEGATIVE Urobilinogen, Urine <2.0 Nitrite, Urine NEGATIVE Leukocyte Esterase, Urine NEGATIVE URINALYSIS MICROSCOPIC WITH REFLEX CULTURE - Abnormal WBC, Urine 1-5 RBC, Urine 1-2 Squamous Epithelial Cells, Urine Bacteria, Urine 1+ (*) PROTIME-INR - Normal Protime 12.7 INR 1.1 TROPONIN I, HIGH SENSITIVITY - Normal Troponin I, High Sensitivity 5 Narrative: Less than 99th percentile of normal range cutoff- Female and children under 18 years old <14 ng/L; Male <21 ng/L: Negative Repeat testing should be performed if clinically indicated. Female and children under 18 years old 14-50 ng/L; Male 21-50 ng/L: Consistent with possible cardiac damage and possible increased clinical risk. Serial measurements may help to assess extent of myocardial damage. >50 ng/L: Consistent with cardiac damage, increased clinical risk and myocardial infarction. Serial measurements may help assess extent of myocardial damage. NOTE: Children less than 1 year old may have higher baseline troponin levels and results should be interpreted in conjunction with the overall clinical context. NOTE: Troponin I testing is performed using a different testing methodology at [facility] than at other [facility] hospitals. Direct result comparisons should only be made within the same method. APTT - Normal aPTT 34 Narrative: The APTT is no longer used for monitoring Unfractionated Heparin Therapy. For monitoring Heparin Therapy, use the Heparin Assay. BLOOD CULTURE URINALYSIS WITH REFLEX CULTURE AND MICROSCOPIC Narrative: The following orders were created for panel order Urinalysis with Reflex Culture and Microscopic. Procedure Abnormality Status --------- ------ Urinalysis with Reflex C...[[id number]] Abnormal Final result Extra Urine Haley Tube[[id number]] In process Please view results for these tests on the individual orders. EXTRA URINE HALEY TUBE TROPONIN I, HIGH SENSITIVITY TSH WITH REFLEX TO FREE T4 IF ABNORMAL MAGNESIUM SARS-COV-2 PCR, SYMPTOMATIC INFLUENZA A AND B PCR XR knee left 4+ views Final Result No acute findings. MACRO: None Signed by: Sharyn Carranza 04/04/2023 12:31 PM Dictation workstation: [id number] CT angio chest for pulmonary embolism Final Result 1. No pulmonary embolism. 2. Mild diffuse bronchial wall thickening with some associated mucous plugging in the right lower lobe. Minimal ground glass opacities in the right upper lobe. Findings suggestive of bronchitis. 3. Mild to moderate coronary artery calcifications. 4. Hepatic steatosis with morphologic changes of underlying cirrhosis. 5. Right adrenal adenoma. Signed by Loyd Diaz MD Medical Decision Making: Patient appears well nontoxic. Tachycardic upon arrival. EKG shows sinus tachycardia. Lab work otherwise unremarkable. CTA of the chest shows bronchitis versus pneumonia. Treated with intravenous Solu-Medrol, 1 L of normal saline, Rocephin, doxycycline intravenously. Left knee x-ray negative. Low concern for septic arthritis. Patient will be admitted given her continued tachycardia. Stable at time of admission. Differential Diagnoses Considered: Pneumonia, bronchitis, pulmonary embolism, septic arthritis, chronic knee pain, volume depletion Independent Interpretation of Studies: I independently interpreted: CTA of the chest shows no evidence of central pulmonary embolism. Left knee x-ray shows no evidence of acute fracture or dislocation. Escalation of Care: Appropriate for admission for further treatment and evaluation. Discussion of Management with Other Providers: I discussed the patient/results with: Admitting hospitalist. Procedure ECG 12 lead Performed by: Balbir Tavares DO Authorized by: Balbir Tavares DO ECG interpreted by ED Physician in the absence of a donkey doctor: yes Comments: EKG interpreted by Dr. Balbir Tavraes: Sinus tachycardia at a rate of 140 bpm. OH interval 74 ms. QTc of [address] changes. PVC Balbir Tavares DO 04/04/23 1407 Balbir Tavares DO 04/04/23 1430 [facility] Work Phone: 03-28-2023 History of Present illness Narrative An interactive audio telecommunication system which permits real time communication between the patient (at home) and the provider (at the office) was utilized to provide this telehealth service Virtual or Telephone Consent Verbal consent was requested and obtained from Janelle Pickett on this date, 03/28/23 for a telehealth visit. Subjective Patient ID: Janelle Pickett is a 67 y.o. female who presents for Illness (TELEPHONE; C/O DIARRHEA AND VOMITING X 4-5 DAY NOW-DENIES ANY OTHER SYMPTOMS) HPI Illness x 4-5 days Straight liquid diarrhea Pt denies any known blood in stool Pt states she is having to go to the bathroom every 30-60 min all night long as well N/V - throwing up at least 2-3 times /day Pt states she hasn't eaten anything in at least a few days She has been drinking - 2.5 bottles of water yesterday - admits to some pop. She does have some gatorade as well but states everything is running right through her She denies feeling ill She states she did call the squad 2 days ago and they checked her vitals and she was ok then but never went to the ER Pt states she did take imodium but little relief Pt denies being exposed to anyone with other similar GI issues Med check DM - lantus and ozempic - last a1c was maybe 3 months - stable not seeing endo (states we have not filled ozempic for her in the past but would like us to take over) renal insuff - stable monitored with labs - not seeing neph COPD- advair, rescue inhaler- stable not seeing pulm cirrhosis of the Liver - denies seeing bobbin collector in the past - denies alcohol current or past and denies known hx of hep - believes was dx with fatty liver pain - Back - pain clinic - knee - xray only- injection but little relief. is not to goal with meds - ortho GERD - on meds depression - on meds B12 - stop until first of the year then start every other day Vit D - inc to 2/week Mag - inc from bid to tid Hypothyroid - inc from 25 to 50 mcg daily Hyperchol - on statin - consider inc but given other adjustments will cont same for now DM management Lantus 65 units bedtime - change to 35 units BID Ozempic weekly Morning - checking BS bid GI concerns Last followed with Dr heath in august 2022 - complex GI hx with constipation and gallbladder issues - saw the surgeon but did not wish to do surgery and did not feel that was the cause of her symptoms at that time. Question if this is more cirrhosis related - additional testing was ordered and to take linzess. has not completed the additional work up or followed up with dr kilgore since GI abscess Pt states she has hx of getting abscess all over her body which likely is from her diabetic history. She was given course of Bactrim and symptoms improved but scab is noted and jack spooler tender Chronic cough - was sick and seen virtually in jan and and overall feels well other than the cough in her chest is still noted. Suspect more bronchitis or post viral cough. Abx was given 02/21/23 for abscess. I did not want to do a steroid given her BS and the abscess. previously we discussed if the cough cont to consider need for change in inhaler She is on rescue inhaler and advair, spiriva and duoneb We discussed a short course of steroid to get her back to her baseline Will change advair and spiriva to bretri Will set up additional 02 testing - overnight and 6 min Preventative Mammo - scheduled- never done DEXA- schedule - never done Colonoscopy [place] 2020 - norm repeat in 10 year - [facility] Depression - PHQ2 NEG NOV 2022 - known depression stable Fall - NEG NOV 2022 Tobacco - cont to smoke started age 21 and amt has varied but always at least 1/2 ppd - at least 20 pack year hx discussed low dose lung cancer CT screen - declines at this time but will call if she changes her mind discussed patch, wellbutrin, chantix - declines at ths time but will call if she changes he rmind Patient Active Problem List Diagnosis Acute pain of left knee 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 Cirrhosis of liver (CMS/HCC) COPD (chronic obstructive pulmonary disease) (CMS/HCC) Degenerative lumbar spinal stenosis Depression Kidney insufficiency Lumbar radiculopathy, chronic Myalgia Pain in thoracic spine Pain of left lower extremity Degenerative disc disease at L5-S1 level Depression, major, recurrent, moderate (CMS/HCC) Elevated antinuclear antibody (KARIME) level Hypertension associated with diabetes (CMS/HCC) Mild cognitive impairment Sacroiliac joint dysfunction of left side Chronic back pain Claustrophobia Abdominal pain, generalized Diabetes mellitus with stage 3 chronic kidney disease (CMS/HCC) Chronic constipation Abnormal biliary HIDA scan Gross hematuria Dysuria Breast cancer screening by mammogram Post-menopausal Class 2 severe obesity due to excess calories with serious comorbidity and body mass index (BMI) of 39.0 to 39.9 in adult (CMS/HCC) Acquired hypothyroidism Vulvovaginal candidiasis Calculus of gallbladder with chronic cholecystitis without obstruction Hypomagnesemia Abdominal guarding Gastroesophageal reflux disease without esophagitis Abdominal pain, acute, right upper quadrant Low vitamin B12 level Vitamin D deficiency Acute non-recurrent frontal sinusitis Primary osteoarthritis of left knee Review of Systems Constitutional: Positive for fatigue. Negative for chills and fever. HENT: Negative for congestion, rhinorrhea, sinus pain, sore throat and tinnitus. Eyes: Negative for discharge, redness and visual disturbance. Respiratory: Negative for cough, chest tightness, shortness of breath and wheezing. Cardiovascular: Negative for chest pain, palpitations and leg swelling. Gastrointestinal: Positive for diarrhea, nausea and vomiting. Negative for abdominal pain and constipation. Endocrine: Negative for cold intolerance and heat intolerance. Genitourinary: Negative for flank pain, frequency and urgency. Musculoskeletal: Negative for back pain, gait problem and neck pain. Skin: Negative for rash and wound. Neurological: Negative for dizziness, tremors, syncope, numbness and headaches. Hematological: Does not bruise/bleed easily. Psychiatric/Behavioral: Negative for confusion, sleep disturbance and suicidal ideas. Past Medical History: Diagnosis Date Fall 04/01/2022 Comment on above: FALL H/O mammogram 2021 2021-NORMAL- [facility] Influenza vaccination declined 11/2021 Pap smear for cervical cancer screening 02/2022- NORMAL- DONE AT [address] [place] [address] Past Surgical History: Procedure Laterality Date COLONOSCOPY 2020 [facility] - NORMAL REPEAT IN 10 YEARS OOPHORECTOMY 10/30/1999 OTHER SURGICAL HISTORY Bilateral MEDIAL BRANCH BLOCK - PETEY BLANCHARD (PAIN MANAGEMENT) BILAT- L4-S1 MBB OTHER SURGICAL HISTORY 12/25/2021 Medial branch block Family History Problem Relation Name Age of Onset Aneurysm Mother Edema Father 1970 Other (MALIGNANT NEOPLASM) Brother Cancer Father's Sister 2-3 AUNTS ON FATHER SIDE Social History Tobacco Use Smoking status: Every Day Packs/day: .5 Types: Cigarettes Smokeless tobacco: Never Vaping Use Vaping Use: Never used Substance Use Topics Alcohol use: Yes Comment: OCCASIONALLY Drug use: Never Allergies Allergen Reactions Gemfibrozil Other abd cramps Current Outpatient Medications Medication Sig Dispense Refill albuterol 90 mcg/actuation inhaler Inhale 2 puffs every 6 hours if needed for wheezing or shortness of breath. atorvastatin (Lipitor) 20 mg tablet Take 1 tablet (20 mg) by mouth once daily. 90 tablet 3 Autolet lancing device 1 each if needed. Use as instructed blood sugar diagnostic (Clip Interactiveuch Verio test strips) strip 1 each 2 times a day. 300 strip 3 glbprzzjqp-ubmtrokj-brhuqxmtlj (Breztri Aerosphere) 160-9-4.8 mcg/actuation HFA aerosol inhaler Inhale 2 puffs 2 times a day. 10.7 g 5 cilostazol (Pletal) 50 mg tablet Take 1 tablet (50 mg) by mouth once daily. FROM [employer] [facility]AC [address] [place] [address] citalopram (CeleXA) 40 mg tablet Take 1 tablet (40 mg) by mouth once daily. 90 tablet 3 cyanocobalamin (Vitamin B-12) 1,000 mcg tablet Take 1 tablet (1,000 mcg) by mouth every other day. 45 tablet 3 cyclobenzaprine (Flexeril) 10 mg tablet Take 1 tablet (10 mg) by mouth 3 times a day as needed for muscle spasms. diclofenac sodium (Voltaren) 1 % gel gel once daily. dicyclomine (Bentyl) 20 mg tablet Take 1 tablet (20 mg) by mouth 4 times a day as needed (Abd pain). 40 tablet 0 docusate sodium (Colace) 100 mg capsule Take 1 capsule (100 mg) by mouth 2 times a day as needed for constipation. 60 capsule 0 DULoxetine (Cymbalta) [address] capsule Take 1 capsule (20 mg) by mouth once daily. 90 capsule 3 ergocalciferol (Vitamin D-2) 1.25 MG (71459 UT) capsule Take 1 cap twice weekly (on separate days) 25 capsule 3 fluticasone propion-salmeteroL (Advair HFA) 230-21 mcg/actuation inhaler Inhale 2 puffs 2 times a day. FreeStyle glucose monitoring kit 1 each 2 times a day as needed (hyperglycemia and hypoglycemia symptoms). 1 each 2 gabapentin (Neurontin) 600 mg tablet Take 1 tablet (600 mg) by mouth 3 times a day. HYDROcodone-acetaminophen ([place]) 5-325 mg tablet Take by mouth every 6 hours if needed. ibuprofen 600 mg tablet Take 1 tablet (600 mg) by mouth every 6 hours if needed. insulin glargine (Lantus Solostar U-100 Insulin) 100 unit/mL (3 mL) pen Inject 40 units Subcutaneously BID 21 mL 3 ipratropium-albuteroL (Duo-Neb) 0.5-2.5 mg/3 mL nebulizer solution Inhale. Use 1 unit dose in nebulizer every 4 hours as needed lancets (ResponseTap (formerly AdInsight)Touch Delica Plus Lancet) 33 gauge misc 1 each 2 times a day. 300 each 3 levothyroxine (Synthroid, Levoxyl) 50 mcg tablet Take 1 tablet (50 mcg) by mouth once daily. 90 tablet 3 linaCLOtide (Linzess) 145 mcg capsule Take 1 capsule (145 mcg) by mouth once daily in the morning. Take before meals. 90 capsule 3 loratadine (Claritin) 10 mg tablet Take 1 tablet (10 mg) by mouth once daily. magnesium oxide (Mag-Ox) 400 mg tablet Take 1 tablet (400 mg) by mouth 3 times a day. 270 tablet 3 methocarbamol (Robaxin) 500 mg tablet montelukast (Singulair) 10 mg tablet Take 1 tablet (10 mg) by mouth once daily at bedtime. 90 tablet 3 naproxen (Naprosyn) 500 mg tablet 1 tablet (500 mg) 2 times a day with meals. nebulizers misc 1 each. nystatin (Mycostatin) 100,000 unit/gram powder Apply topically 2 times a day. omeprazole (PriLOSEC) [address] capsule Take 1 capsule (40 mg) by mouth once daily in the morning. Take before meals. 90 capsule 3 ondansetron ODT (Zofran-ODT) 4 mg disintegrating tablet Take 1 tablet (4 mg) by mouth every 4 hours if needed for nausea or vomiting. pen needle, diabetic (BD Ultra-Fine Short Pen Needle) 31 gauge x 5/16 needle USE DIRECTED 100 each 3 potassium chloride CR (Klor-Con) 10 mEq ER tablet Take 1 tablet (10 mEq) by mouth once daily. predniSONE (Deltasone) 10 mg tablet Take 2 tab po tid x 3 days then 1 tab po tid x 3 days then 1 tab po bid x 3 days then 1 tab daily x 3 days 36 tablet 0 semaglutide 2 mg/dose (8 mg/3 mL) pen injector Inject 2 mg under the skin 1 (one) time per week. 9 mL 3 sertraline (Zoloft) 50 mg tablet Take 1 tablet (50 mg) by mouth once daily. 90 tablet 3 silver sulfADIAZINE (Silvadene) 1 % cream Apply to affected area twice a day or with each dressing change. 20 g 0 tiotropium (Spiriva with HandiHaler) [address] 1 capsule (18 mcg) into inhaler and inhale once daily. tiZANidine (Zanaflex) 4 mg tablet 1 tablet (4 mg) every 6 hours if needed. traZODone (Desyrel) 100 mg tablet Take 1 tablet (100 mg) by mouth once daily at bedtime. 90 tablet 3 No current facility-administered medications for this visit. Objective There were no vitals taken for this visit. Physical Exam Testing Reviewed labs on file Impression MDM 1) COMPLEXITY: 1 UNDIAGNOSED NEW PROBLEM WITH UNCERTAIN PROGNOSIS 2)DATA: TESTS INTERPRETED AND OR ORDERED, TOOK INDEPENDENT HISTORY OR RECORDS REVIEWED 3)RISK: MODERATE RISK DUE TO NATURE OF MEDICAL CONDITIONS/COMORBIDITY OR MEDICATIONS ORDERED OR SURGICAL OR PROCEDURE REFERRAL, . Reviewed labs and Testing on file Patient to follow diet low in cholesterol, fat, and sodium. Patient is advised to increase Exercise. Patient is recommended to lose weight. Reviewed Meds and discussed common side effects Continue as directed Illness - likely gastroenteritis and explained this can be self limiting. I am concerned to the degree of her diarrhea and vomiting with little intake. I would expect her to feel more sick or vitals to be off however I have no way of checking vitals virtually and she has not checked in 2 days. I have encouraged her to go to the ER for labs and fluids but pt declines as she is feeling ok I have agreed to start her on trial of cipro given her symptoms and phenergan. She has sharifyl prn Discussed fluids and BRAT diet I also question exacerbation with some of the other chronic GI problems Patient is strongly advised to be compliant with recommendations. Return to Clinic sooner if needed. Patient denies further questions/concerns at this time Assessment/Plan Problem List Items Addressed This Visit ICD-10-CM Cirrhosis of liver (CMS/HCC) K74.60 Diabetes mellitus with stage 3 chronic kidney disease (CMS/HCC) E11.22, N18.30 Calculus of gallbladder with chronic cholecystitis without obstruction K80.10 Other Visit Diagnoses Codes Gastroenteritis - Primary K52.9 Relevant Medications ciprofloxacin (Cipro) 250 mg tablet promethazine (Phenergan) 25 mg tablet FU 1 week illness check - pt to call if needed Prep Time 3 min Time with patient 13 min Documentation time 5 min Total time 21 min documented in this encounter [facility] Work Phone: 03-08-2023 History of Present illness Narrative Subjective Patient ID: Janelle Pickett is a 67 y.o. female who presents for Follow-up (2 WEEK F/U ABDOMINAL WALL ABSCESS + CHRONIC COUGH. COMPLETED BACTRIM COURSE AND ABSCESS HAS IMPROVED BUT STILL HAS YELLOW DISCHARGE FROM SITE. CONTINUES TO HAVE SOMEWHAT PRODUCTIVE COUGH AND SOB ON EXERTION. USING INHALER WHICH OFFERS SOME RELIEF. ) HPI Med check DM - lantus and ozempic - last a1c was maybe 3 months - stable not seeing endo (states we have not filled ozempic for her in the past but would like us to take over) renal insuff - stable monitored with labs - not seeing neph COPD- advair, rescue inhaler- stable not seeing pulm cirrhosis of the Liver - denies seeing bobbin collector in the past - denies alcohol current or past and denies known hx of hep - believes was dx with fatty liver pain - Back - pain clinic - knee - xray only- injection but little relief. is not to goal with meds - ortho GERD - on meds depression - on meds B12 - stop until first of the year then start every other day Vit D - inc to 2/week Mag - inc from bid to tid Hypothyroid - inc from 25 to 50 mcg daily Hyperchol - on statin - consider inc but given other adjustments will cont same for now DM management Lantus 65 units bedtime - change to 35 units BID Ozempic weekly Morning - checking BS bid GI concerns Last followed with Dr heath in august 2022 - complex GI hx with constipation and gallbladder issues - saw the surgeon but did not wish to do surgery and did not feel that was the cause of her symptoms at that time. Question if this is more cirrhosis related - additional testing was ordered and to take linzess. has not completed the additional work up or followed up with dr kilgore since GI abscess Pt states she has hx of getting abscess all over her body which likely is from her diabetic history. She was given course of Bactrim and symptoms improved but scab is noted and jack spooler tender Chronic cough - was sick and seen virtually in jan and and overall feels well other than the cough in her chest is still noted. Suspect more bronchitis or post viral cough. Abx was given 02/21/23 for abscess. I did not want to do a steroid given her BS and the abscess. previously we discussed if the cough cont to consider need for change in inhaler She is on rescue inhaler and advair, spiriva and duoneb We discussed a short course of steroid to get her back to her baseline Will change advair and spiriva to bretri Will set up additional 02 testing - overnight and 6 min Preventative Mammo - scheduled- never done DEXA- schedule - never done Colonoscopy [place] 2020 - norm repeat in 10 year - [facility] Depression - PHQ2 NEG NOV 2022 - known depression stable Fall - NEG NOV 2022 Tobacco - cont to smoke started age 21 and amt has varied but always at least 1/2 ppd - at least 20 pack year hx discussed low dose lung cancer CT screen - declines at this time but will call if she changes her mind discussed patch, wellbutrin, chantix - declines at ths time but will call if she changes he rmind Patient Active Problem List Diagnosis Acute pain of left knee 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 Cirrhosis of liver (CMS/HCC) COPD (chronic obstructive pulmonary disease) (CMS/HCC) Degenerative lumbar spinal stenosis Depression Kidney insufficiency Lumbar radiculopathy, chronic Myalgia Pain in thoracic spine Pain of left lower extremity Degenerative disc disease at L5-S1 level Depression, major, recurrent, moderate (CMS/HCC) Elevated antinuclear antibody (KARIME) level Hypertension associated with diabetes (CMS/HCC) Mild cognitive impairment Sacroiliac joint dysfunction of left side Chronic back pain Claustrophobia Abdominal pain, generalized Diabetes mellitus with stage 3 chronic kidney disease (CMS/HCC) Chronic constipation Abnormal biliary HIDA scan Gross hematuria Dysuria Breast cancer screening by mammogram Post-menopausal Class 3 severe obesity due to excess calories with serious comorbidity and body mass index (BMI) of 40.0 to 44.9 in adult (CMS/HCC) Acquired hypothyroidism Vulvovaginal candidiasis Calculus of gallbladder with chronic cholecystitis without obstruction Hypomagnesemia Abdominal guarding Gastroesophageal reflux disease without esophagitis Abdominal pain, acute, right upper quadrant Low vitamin B12 level Vitamin D deficiency Acute non-recurrent frontal sinusitis Primary osteoarthritis of left knee Review of Systems Constitutional: Positive for fatigue. Negative for chills and fever. HENT: Negative for congestion, rhinorrhea, sinus pain, sore throat and tinnitus. Eyes: Negative for discharge, redness and visual disturbance. Respiratory: Positive for cough and shortness of breath. Negative for chest tightness and wheezing. Cardiovascular: Negative for chest pain, palpitations and leg swelling. Gastrointestinal: Negative for abdominal pain, constipation, diarrhea, nausea and vomiting. Endocrine: Negative for cold intolerance and heat intolerance. Genitourinary: Negative for flank pain, frequency and urgency. Musculoskeletal: Positive for arthralgias. Negative for back pain, gait problem and neck pain. Skin: Positive for wound. Negative for rash. Neurological: Negative for dizziness, tremors, syncope, numbness and headaches. Hematological: Does not bruise/bleed easily. Psychiatric/Behavioral: Negative for confusion, sleep disturbance and suicidal ideas. Past Medical History: Diagnosis Date Fall 04/01/2022 Comment on above: FALL H/O mammogram 2021 2021-NORMAL- [facility] Influenza vaccination declined 11/2021 Pap smear for cervical cancer screening 02/2022- NORMAL- DONE AT [address] [place] [address] Past Surgical History: Procedure Laterality Date COLONOSCOPY 2020 [facility] - NORMAL REPEAT IN 10 YEARS OOPHORECTOMY 10/30/1999 OTHER SURGICAL HISTORY Bilateral MEDIAL BRANCH BLOCK - PETEY BLANCHARD (PAIN MANAGEMENT) BILAT- L4-S1 MBB OTHER SURGICAL HISTORY 12/25/2021 Medial branch block Family History Problem Relation Name Age of Onset Aneurysm Mother Edema Father 1970 Other (MALIGNANT NEOPLASM) Brother Cancer Father's Sister 2-3 AUNTS ON FATHER SIDE Social History Tobacco Use Smoking status: Every Day Packs/day: .5 Types: Cigarettes Smokeless tobacco: Never Vaping Use Vaping Use: Never used Substance Use Topics Alcohol use: Yes Comment: OCCASIONALLY Drug use: Never Allergies Allergen Reactions Gemfibrozil Other abd cramps Current Outpatient Medications Medication Sig Dispense Refill albuterol 90 mcg/actuation inhaler Inhale 2 puffs every 6 hours if needed for wheezing or shortness of breath. atorvastatin (Lipitor) 20 mg tablet Take 1 tablet (20 mg) by mouth once daily. 90 tablet 3 Autolet lancing device 1 each if needed. Use as instructed cilostazol (Pletal) 50 mg tablet Take 1 tablet (50 mg) by mouth once daily. FROM [facility] [employer] GA[facility] JAC [address] [place] [address] citalopram (CeleXA) 40 mg tablet Take 1 tablet (40 mg) by mouth once daily. 90 tablet 3 cyanocobalamin (Vitamin B-12) 1,000 mcg tablet Take 1 tablet (1,000 mcg) by mouth every other day. 45 tablet 3 cyclobenzaprine (Flexeril) 10 mg tablet Take 1 tablet (10 mg) by mouth 3 times a day as needed for muscle spasms. diclofenac sodium (Voltaren) 1 % gel gel once daily. dicyclomine (Bentyl) 20 mg tablet Take 1 tablet (20 mg) by mouth 4 times a day as needed (Abd pain). 40 tablet 0 docusate sodium (Colace) 100 mg capsule Take 1 capsule (100 mg) by mouth 2 times a day as needed for constipation. 60 capsule 0 DULoxetine (Cymbalta) [address] capsule Take 1 capsule (20 mg) by mouth once daily. 90 capsule 3 ergocalciferol (Vitamin D-2) 1.25 MG (49693 UT) capsule Take 1 cap twice weekly (on separate days) 25 capsule 3 fluticasone propion-salmeteroL (Advair HFA) 230-21 mcg/actuation inhaler Inhale 2 puffs 2 times a day. [employer] glucose monitoring kit 1 each 2 times a day as needed (hyperglycemia and hypoglycemia symptoms). 1 each 2 gabapentin (Neurontin) 600 mg tablet Take 1 tablet (600 mg) by mouth 3 times a day. HYDROcodone-acetaminophen ([place]) 5-325 mg tablet Take by mouth every 6 hours if needed. ibuprofen 600 mg tablet Take 1 tablet (600 mg) by mouth every 6 hours if needed. insulin glargine (Lantus Solostar U-100 Insulin) 100 unit/mL (3 mL) pen Inject 65 units daily (Patient taking differently: Inject 70 units daily) 21 mL 3 ipratropium-albuteroL (Duo-Neb) 0.5-2.5 mg/3 mL nebulizer solution Inhale. Use 1 unit dose in nebulizer every 4 hours as needed lancets 33 gauge misc levothyroxine (Synthroid, Levoxyl) 50 mcg tablet Take 1 tablet (50 mcg) by mouth once daily. 90 tablet 3 linaCLOtide (Linzess) 145 mcg capsule Take 1 capsule (145 mcg) by mouth once daily in the morning. Take before meals. 90 capsule 3 loratadine (Claritin) 10 mg tablet Take 1 tablet (10 mg) by mouth once daily. magnesium oxide (Mag-Ox) 400 mg tablet Take 1 tablet (400 mg) by mouth 3 times a day. 270 tablet 3 methocarbamol (Robaxin) 500 mg tablet montelukast (Singulair) 10 mg tablet Take 1 tablet (10 mg) by mouth once daily at bedtime. 90 tablet 3 naproxen (Naprosyn) 500 mg tablet 1 tablet (500 mg) 2 times a day with meals. nebulizers misc 1 each. nystatin (Mycostatin) 100,000 unit/gram powder Apply topically 2 times a day. omeprazole (PriLOSEC) [address] capsule Take 1 capsule (40 mg) by mouth once daily in the morning. Take before meals. 90 capsule 3 ondansetron ODT (Zofran-ODT) 4 mg disintegrating tablet Take 1 tablet (4 mg) by mouth every 4 hours if needed for nausea or vomiting. OneTouch Ultra Test strip 1 each in the morning and 1 each before bedtime. 100 strip 11 pen needle, diabetic (BD Ultra-Fine Short Pen Needle) 31 gauge x 5/16 needle USE DIRECTED 100 each 3 potassium chloride CR (Klor-Con) 10 mEq ER tablet Take 1 tablet (10 mEq) by mouth once daily. semaglutide 2 mg/dose (8 mg/3 mL) pen injector Inject 2 mg under the skin 1 (one) time per week. 9 mL 3 sertraline (Zoloft) 50 mg tablet Take 1 tablet (50 mg) by mouth once daily. 90 tablet 3 tiotropium (Spiriva with HandiHaler) [address] 1 capsule (18 mcg) into inhaler and inhale once daily. tiZANidine (Zanaflex) 4 mg tablet 1 tablet (4 mg) every 6 hours if needed. traZODone (Desyrel) 100 mg tablet Take 1 tablet (100 mg) by mouth once daily at bedtime. 90 tablet 3 promethazine-DM (Phenergan-DM) 6.25-15 mg/5 mL syrup Take 5 mL by mouth 4 times a day as needed for cough. (Patient not taking: Reported on 03/08/2023) 120 mL 0 No current facility-administered medications for this visit. Objective BP 150/70 Pulse 72 Ht 1.575 m (5' 2 ) Wt 98.4 kg (217 lb) BMI 39.69 kg/m Physical Exam Vitals reviewed. Constitutional: Appearance: Normal appearance. She is obese. HENT: Head: Normocephalic. Right Ear: External ear normal. Left Ear: External ear normal. Nose: Nose normal. No congestion or rhinorrhea. Mouth/Throat: Mouth: Mucous membranes are moist. Eyes: Extraocular Movements: Extraocular movements intact. Conjunctiva/sclera: Conjunctivae normal. Pupils: Pupils are equal, round, and reactive to light. Cardiovascular: Rate and Rhythm: Normal rate and regular rhythm. Pulses: Normal pulses. Pulmonary: Effort: Pulmonary effort is normal. Breath sounds: Wheezing present. Abdominal: General: Bowel sounds are normal. Palpations: Abdomen is soft. Tenderness: There is no abdominal tenderness. There is no right CVA tenderness or left CVA tenderness. Musculoskeletal: General: No tenderness. Normal range of motion. Cervical back: Normal range of motion and neck supple. No tenderness. Skin: General: Skin is warm and dry. Comments: Abscess is closed - scabbed Surrounding skin is not erythematous or wamth Neg discharge Neurological: General: No focal deficit present. Mental Status: She is alert and oriented to person, place, and time. Psychiatric: Mood and Affect: Mood normal. Behavior: Behavior normal. Testing Reviewed labs on file from oct A1c 8.5* Impression MDM 1) COMPLEXITY: 1 OR MORE CHRONIC CONDITION WITH EXACERBATION, OR PROGRESSION OR SIDE EFFECT OF TREATMENT ADDRESSED 2)DATA: TESTS INTERPRETED AND OR ORDERED, TOOK INDEPENDENT HISTORY OR RECORDS REVIEWED 3)RISK: MODERATE RISK DUE TO NATURE OF MEDICAL CONDITIONS/COMORBIDITY OR MEDICATIONS ORDERED OR SURGICAL OR PROCEDURE REFERRAL, . Reviewed labs and Testing on file Patient to follow diet low in cholesterol, fat, and sodium. Patient is advised to increase Exercise. Patient is recommended to lose weight. Reviewed Meds and discussed common side effects Continue as directed Abscess- healing well - will try silvadene and monitor COPD exacerbation - short course of prednisone, change in inhalers and set up additional 02 testing Patient is strongly advised to be compliant with recommendations. Return to Clinic sooner if needed. Patient denies further questions/concerns at this time Assessment/Plan Problem List Items Addressed This Visit ICD-10-CM COPD (chronic obstructive pulmonary disease) ([facility]) - Primary J44.9 Relevant Medications predniSONE (Deltasone) 10 mg tablet htnjwpkqzh-fdbdrglu-albkltogpn (Breztri Aerosphere) 160-9-4.8 mcg/actuation HFA aerosol inhaler Other Relevant Orders Pulse oximetry, overnight Pulmonary function testing Hypertension associated with diabetes ([facility]) E11.59, I15.2 Diabetes mellitus with stage 3 chronic kidney disease ([facility]) E11.22, N18.30 Class 2 severe obesity due to excess calories with serious comorbidity and body mass index (BMI) of 39.0 to 39.9 in adult ([facility]) E66.01, Z68.39 Other Visit Diagnoses Codes Abdominal wall abscess L02.211 Relevant Medications silver sulfADIAZINE (Silvadene) 1 % cream Type 2 diabetes mellitus with stage 3a chronic kidney disease, with long-term current use of insulin ([facility]) E11.22, N18.31, Z79.4 Relevant Medications FreeStyle glucose monitoring kit FU in 6 weeks with pulm testing Set up overnight 02 and 6 min walk to be done end of mar /apr documented in this encounter [facility] Work Phone: 02-21-2023 History of Present illness Narrative Subjective Patient ID: Janelle Pickett is a 67 y.o. female who presents for Follow-up (3 MO F/U WITH LABS. C/O OPEN SORES ON LOWER ABD X 1.5 WKS) HPI Labs Med check DM - lantus and ozempic - last a1c was maybe 3 months - stable not seeing endo (states we have not filled ozempic for her in the past but would like us to take over) renal insuff - stable monitored with labs - not seeing neph COPD- advair, rescue inhaler- stable not seeing pulm cirrhosis of the Liver - denies seeing bobbin collector in the past - denies alcohol current or past and denies known hx of hep - believes was dx with fatty liver pain - Back - pain clinic - knee - xray only- injection but little relief. is not to goal with meds - ortho GERD - on meds depression - on meds B12 - stop until first of the year then start every other day Vit D - inc to 2/week Mag - inc from bid to tid Hypothyroid - inc from 25 to 50 mcg daily Hyperchol - on statin - consider inc but given other adjustments will cont same for now DM management Lantus 65 units bedtime - change to 35 units BID Ozempic weekly Morning - checking BS bid GI concerns Last followed with Dr heath in august 2022 - complex GI hx with constipation and gallbladder issues - saw the surgeon but did not wish to do surgery and did not feel that was the cause of her symptoms at that time. Question if this is more cirrhosis related - additional testing was ordered and to take linzess. has not completed the additional work up or followed up with dr kilgore since GI abscess Pt states she has hx of getting abscess all over her body which likely is from her diabetic history. She notes a spot on the L lower abd region that was open with discharge but is currently not open, tender, erythematous Chronic cough - was sick and seen virtually last month and tx and overall feels well other than the cough in her chest is still noted. Suspect more bronchitis or post viral cough. Abx will be given already for abscess. I do not want to do a steroid given her BS and the abscess. Will renew cough syrup and monitor - cont inhaler and consider repeat work up or change in inhalers Preventative Mammo - scheduled July 30- never done DEXA- schedule July 30- never done Colonoscopy [place] 2020 - norm repeat in 10 year - [facility] Depression - PHQ2 NEG NOV 2022 - known depression stable Fall - NEG NOV 2022 Tobacco - cont to smoke started age 21 and amt has varied but always at least 1/2 ppd - at least 20 pack year hx discussed low dose lung cancer CT screen - declines at this time but will call if she changes her mind discussed patch, wellbutrin, chantix - declines at ths time but will call if she changes he rmind Patient Active Problem List Diagnosis Acute pain of left knee 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 Cirrhosis of liver (CMS/HCC) COPD (chronic obstructive pulmonary disease) (CMS/HCC) Degenerative lumbar spinal stenosis Depression Kidney insufficiency Lumbar radiculopathy, chronic Myalgia Pain in thoracic spine Pain of left lower extremity Degenerative disc disease at L5-S1 level Depression, major, recurrent, moderate (CMS/HCC) Elevated antinuclear antibody (KARIME) level Hypertension associated with diabetes (CMS/HCC) Mild cognitive impairment Sacroiliac joint dysfunction of left side Chronic back pain Claustrophobia Abdominal pain, generalized Diabetes mellitus with stage 3 chronic kidney disease (CMS/HCC) Chronic constipation Abnormal biliary HIDA scan Gross hematuria Dysuria Breast cancer screening by mammogram Post-menopausal Class 2 severe obesity due to excess calories with serious comorbidity and body mass index (BMI) of 38.0 to 38.9 in adult (CMS/HCC) Acquired hypothyroidism Vulvovaginal candidiasis Calculus of gallbladder with chronic cholecystitis without obstruction Hypomagnesemia Abdominal guarding Gastroesophageal reflux disease without esophagitis Abdominal pain, acute, right upper quadrant Low vitamin B12 level Vitamin D deficiency Acute non-recurrent frontal sinusitis Primary osteoarthritis of left knee Review of Systems Constitutional: Positive for fatigue. Negative for chills and fever. HENT: Negative for congestion, rhinorrhea, sinus pain, sore throat and tinnitus. Eyes: Negative for discharge, redness and visual disturbance. Respiratory: Negative for cough, chest tightness, shortness of breath and wheezing. Cardiovascular: Negative for chest pain, palpitations and leg swelling. Gastrointestinal: Negative for abdominal pain, constipation, diarrhea, nausea and vomiting. Endocrine: Negative for cold intolerance and heat intolerance. Genitourinary: Negative for flank pain, frequency and urgency. Musculoskeletal: Positive for arthralgias and back pain. Negative for gait problem and neck pain. Skin: Positive for wound. Negative for rash. Neurological: Negative for dizziness, tremors, syncope, numbness and headaches. Hematological: Does not bruise/bleed easily. Psychiatric/Behavioral: Negative for confusion, sleep disturbance and suicidal ideas. Past Medical History: Diagnosis Date Fall 04/01/2022 Comment on above: FALL H/O mammogram 2021 2021-NORMAL- [facility] Influenza vaccination declined 11/2021 Pap smear for cervical cancer screening 02/2022- NORMAL- DONE AT [address] [place] [address] Past Surgical History: Procedure Laterality Date COLONOSCOPY 2020 [facility] - NORMAL REPEAT IN 10 YEARS OOPHORECTOMY 10/30/1999 OTHER SURGICAL HISTORY Bilateral MEDIAL BRANCH BLOCK - PETEY BLANCHARD (PAIN MANAGEMENT) BILAT- L4-S1 MBB OTHER SURGICAL HISTORY 12/25/2021 Medial branch block Family History Problem Relation Name Age of Onset Aneurysm Mother Edema Father 1970 Other (MALIGNANT NEOPLASM) Brother Cancer Father's Sister 2-3 AUNTS ON FATHER SIDE Social History Tobacco Use Smoking status: Every Day Packs/day: .5 Types: Cigarettes Smokeless tobacco: Never Vaping Use Vaping Use: Never used Substance Use Topics Alcohol use: Yes Comment: OCCASIONALLY Drug use: Never Allergies Allergen Reactions Gemfibrozil Other abd cramps Current Outpatient Medications Medication Sig Dispense Refill albuterol 90 mcg/actuation inhaler Inhale 2 puffs every 6 hours if needed for wheezing or shortness of breath. atorvastatin (Lipitor) 20 mg tablet Take 1 tablet (20 mg) by mouth once daily. 90 tablet 3 Autolet lancing device 1 each if needed. Use as instructed BD Ultra-Fine Short Pen Needle 31 gauge x 5/16 needle cilostazol (Pletal) 50 mg tablet Take 1 tablet (50 mg) by mouth once daily. FROM MATTHIAS NATHAN [address] [place] [address] citalopram (CeleXA) 40 mg tablet Take 1 tablet (40 mg) by mouth once daily. 90 tablet 3 cyanocobalamin (Vitamin B-12) 1,000 mcg tablet Take 1 tablet (1,000 mcg) by mouth once daily. 90 tablet 3 cyclobenzaprine (Flexeril) 10 mg tablet Take 1 tablet (10 mg) by mouth 3 times a day as needed for muscle spasms. diclofenac sodium (Voltaren) 1 % gel gel once daily. dicyclomine (Bentyl) 20 mg tablet Take 1 tablet (20 mg) by mouth 4 times a day as needed (Abd pain). 40 tablet 0 docusate sodium (Colace) 100 mg capsule Take 1 capsule (100 mg) by mouth 2 times a day as needed for constipation. 60 capsule 0 DULoxetine (Cymbalta) [address] capsule Take 1 capsule (20 mg) by mouth once daily. 90 capsule 3 ergocalciferol (Vitamin D-2) 1.25 MG (81138 UT) capsule Take 1 capsule (50,000 Units) by mouth 1 (one) time per week. 13 capsule 3 fluticasone propion-salmeteroL (Advair HFA) 230-21 mcg/actuation inhaler Inhale 2 puffs 2 times a day. FreeStyle glucose monitoring kit 1 each 2 times a day as needed (hyperglycemia and hypoglycemia symptoms). 1 each 2 gabapentin (Neurontin) 600 mg tablet Take 1 tablet (600 mg) by mouth 3 times a day. HYDROcodone-acetaminophen ([place]) 5-325 mg tablet Take by mouth every 6 hours if needed. ibuprofen 600 mg tablet Take 1 tablet (600 mg) by mouth every 6 hours if needed. insulin glargine (Lantus Solostar U-100 Insulin) 100 unit/mL (3 mL) pen Inject 65 units daily 21 mL 3 insulin glargine-yfgn 100 unit/mL (3 mL) Pen ipratropium-albuteroL (Duo-Neb) 0.5-2.5 mg/3 mL nebulizer solution Inhale. Use 1 unit dose in nebulizer every 4 hours as needed lancets 33 gauge misc levothyroxine (Synthroid, Levoxyl) 25 mcg tablet Take 1 tablet (25 mcg) by mouth once daily. 90 tablet 3 linaCLOtide (Linzess) 145 mcg capsule Take 1 capsule (145 mcg) by mouth once daily in the morning. Take before meals. 90 capsule 3 loratadine (Claritin) 10 mg tablet Take 1 tablet (10 mg) by mouth once daily. magnesium oxide (Mag-Ox) 400 mg tablet Take 1 tablet (400 mg) by mouth 2 times a day. 180 tablet 3 methocarbamol (Robaxin) 500 mg tablet montelukast (Singulair) 10 mg tablet Take 1 tablet (10 mg) by mouth once daily at bedtime. 90 tablet 3 naproxen (Naprosyn) 500 mg tablet 1 tablet (500 mg) 2 times a day with meals. nebulizers misc 1 each. nystatin (Mycostatin) 100,000 unit/gram powder Apply topically 2 times a day. omeprazole (PriLOSEC) [address] capsule Take 1 capsule (40 mg) by mouth once daily in the morning. Take before meals. ondansetron ODT (Zofran-ODT) 4 mg disintegrating tablet Take 1 tablet (4 mg) by mouth every 4 hours if needed for nausea or vomiting. [employer] ([employer])Touch Ultra Test strip 1 each in the morning and 1 each before bedtime. 100 strip 11 potassium chloride CR (Klor-Con) 10 mEq ER tablet Take 1 tablet (10 mEq) by mouth once daily. promethazine-DM (Phenergan-DM) 6.25-15 mg/5 mL syrup Take 5 mL by mouth 4 times a day as needed for cough. 120 mL 0 semaglutide (Ozempic) 1 mg/dose (4 mg/3 mL) pen injector Inject under the skin. 61 units BID sertraline (Zoloft) 50 mg tablet Take 1 tablet (50 mg) by mouth once daily. 90 tablet 3 tiotropium (Spiriva with HandiHaler) [address] 1 capsule (18 mcg) into inhaler and inhale once daily. tiZANidine (Zanaflex) 4 mg tablet 1 tablet (4 mg) every 6 hours if needed. traZODone (Desyrel) 100 mg tablet Take 1 tablet (100 mg) by mouth once daily at bedtime. 90 tablet 3 No current facility-administered medications for this visit. Objective BP 126/75 Pulse 69 Ht 1.575 m (5' 2 ) Wt 105 kg (231 lb) BMI 42.25 kg/m Physical Exam Vitals reviewed. Constitutional: Appearance: Normal appearance. She is obese. HENT: Head: Normocephalic. Right Ear: External ear normal. Left Ear: External ear normal. Nose: Nose normal. No congestion or rhinorrhea. Mouth/Throat: Mouth: Mucous membranes are moist. Eyes: Extraocular Movements: Extraocular movements intact. Conjunctiva/sclera: Conjunctivae normal. Pupils: Pupils are equal, round, and reactive to light. Cardiovascular: Rate and Rhythm: Normal rate and regular rhythm. Pulses: Normal pulses. Pulmonary: Effort: Pulmonary effort is normal. Breath sounds: Normal breath sounds. Abdominal: General: Bowel sounds are normal. Palpations: Abdomen is soft. Tenderness: There is no abdominal tenderness. There is no right CVA tenderness or left CVA tenderness. Musculoskeletal: General: No tenderness. Normal range of motion. Cervical back: Normal range of motion and neck supple. No tenderness. Skin: General: Skin is warm and dry. Comments: Abscess L lower abd region about 1 x 2 cm in size Erythema, edema, neg discharge with slight pressure but pain noted Few surrounding areas of scarring and scabbing noted of prior abscess Neurological: General: No focal deficit present. Mental Status: She is alert and oriented to person, place, and time. Psychiatric: Mood and Affect: Mood normal. Behavior: Behavior normal. Testing Component Latest Ref [facility] 02/07/2023 WBC 4.4 - 11.3 x10*3/uL 7.5 nRBC 0.0 - 0.0 /100 WBCs 0.3 (H) RBC 4.00 - 5.20 x10*6/uL 4.89 HEMOGLOBIN 12.0 - 16.0 g/dL 14.5 HEMATOCRIT 36.0 - 46.0 % 45.1 MCV 80 - 100 fL 92 MCH 26.0 - 34.0 pg 29.7 MCHC 32.0 - 36.0 g/dL 32.2 RED CELL DISTRIBUTION WIDTH 11.5 - 14.5 % 13.8 Platelets 150 - 450 x10*3/uL 120 (L) MEAN PLATELET VOLUME 7.5 - 11.5 fL 11.6 (H) Neutrophils % 40.0 - 80.0 % 67.1 Immature Granulocytes %, Automated 0.0 - 0.9 % 0.7 Lymphocytes % 13.0 - 44.0 % 25.5 Monocytes % 2.0 - 10.0 % 5.6 Eosinophils % 0.0 - 6.0 % 0.7 Basophils % 0.0 - 2.0 % 0.4 Neutrophils Absolute 1.20 - 7.70 x10*3/uL 5.01 Immature Granulocytes Absolute, Automated 0.00 - 0.70 x10*3/uL 0.05 Lymphocytes Absolute 1.20 - 4.80 x10*3/uL 1.90 Monocytes Absolute 0.10 - 1.00 x10*3/uL 0.42 Eosinophils Absolute 0.00 - 0.70 x10*3/uL 0.05 Basophils Absolute 0.00 - 0.10 x10*3/uL 0.03 GLUCOSE 74 - 99 mg/dL 106 (H) SODIUM 136 - 145 mmol/L 139 POTASSIUM 3.5 - 5.3 mmol/L 4.0 CHLORIDE 98 - 107 mmol/L 102 Bicarbonate 21 - 32 mmol/L 30 Anion Gap 10 - 20 mmol/L 11 Blood Urea Nitrogen 6 - 23 mg/dL 13 Creatinine 0.50 - 1.05 mg/dL 1.09 (H) EGFR >60 mL/min/1.73m*2 56 (L) Calcium 8.6 - 10.3 mg/dL 8.7 Albumin 3.4 - 5.0 g/dL 3.3 (L) Alkaline Phosphatase 33 - 136 U/L 109 Total Protein 6.4 - 8.2 g/dL 6.5 AST 9 - 39 U/L 15 Bilirubin Total 0.0 - 1.2 mg/dL 0.4 ALT 7 - 45 U/L 12 CHOLESTEROL 0 - 199 mg/dL 192 HDL CHOLESTEROL mg/dL 48.0 Cholesterol/HDL Ratio 4.0 LDL Calculated <=99 mg/dL 90 VLDL 0 - 40 mg/dL 54 (H) TRIGLYCERIDES 0 - 149 mg/dL 268 (H) Non HDL Cholesterol 0 - 149 mg/dL 144 Hemoglobin A1C see below % 8.5 (H) Estimated Average Glucose Not Established mg/dL 197 Thyroid Stimulating Hormone 0.44 - 3.98 mIU/L 5.05 (H) Thyroxine, Free 0.61 - 1.12 ng/dL 0.89 MAGNESIUM 1.60 - 2.40 mg/dL 1.30 (L) Vitamin B12 211 - 911 pg/mL 924 (H) Vitamin D, 25-Hydroxy, Total 30 - 100 ng/mL 16 (L) Impression MDM 1) COMPLEXITY: 1 OR MORE CHRONIC CONDITION WITH EXACERBATION, OR PROGRESSION OR SIDE EFFECT OF TREATMENT ADDRESSED 2)DATA: TESTS INTERPRETED AND OR ORDERED, TOOK INDEPENDENT HISTORY OR RECORDS REVIEWED 3)RISK: MODERATE RISK DUE TO NATURE OF MEDICAL CONDITIONS/COMORBIDITY OR MEDICATIONS ORDERED OR SURGICAL OR PROCEDURE REFERRAL, . Reviewed labs and Testing on file Patient to follow diet low in cholesterol, fat, and sodium. Patient is advised to increase Exercise. Patient is recommended to lose weight. Reviewed Meds and discussed common side effects Continue as directed Many meds adjusted - see HPI Abscess - Abx and diflucan and suggest warm compress - call sooner if needed or follow up in 2 weeks for abscess check Rescheduled mammo/DEXA COPD exacerbated /post viral cough Patient is strongly advised to be compliant with recommendations. Return to Clinic sooner if needed. Patient denies further questions/concerns at this time Assessment/Plan Problem List Items Addressed This Visit ICD-10-CM COPD (chronic obstructive pulmonary disease) ([facility]) J44.9 Hypertension associated with diabetes ([facility]) E11.59, I15.2 Diabetes mellitus with stage 3 chronic kidney disease ([facility]) E11.22, N18.30 Relevant Medications pen needle, diabetic (BD Ultra-Fine Short Pen Needle) 31 gauge x 5/16 needle fluconazole (Diflucan) 150 mg tablet semaglutide 2 mg/dose (8 mg/3 mL) pen injector Other Relevant Orders CBC and Auto Differential Comprehensive Metabolic Panel Hemoglobin A1C Class 3 severe obesity due to excess calories with serious comorbidity and body mass index (BMI) of 40.0 to 44.9 in adult ([facility]) E66.01, Z68.41 Relevant Medications semaglutide 2 mg/dose (8 mg/3 mL) pen injector Acquired hypothyroidism E03.9 Relevant Medications levothyroxine (Synthroid, Levoxyl) 50 mcg tablet Hypomagnesemia E83.42 Relevant Medications magnesium oxide (Mag-Ox) 400 mg tablet Other Relevant Orders Magnesium Gastroesophageal reflux disease without esophagitis K21.9 Relevant Medications omeprazole (PriLOSEC) [address] capsule Low vitamin B12 level R79.89 Relevant Medications cyanocobalamin (Vitamin B-12) 1,000 mcg tablet Other Relevant Orders Vitamin B12 Vitamin D deficiency E55.9 Relevant Medications ergocalciferol (Vitamin D-2) 1.25 MG (25563 UT) capsule Other Relevant Orders Vitamin D 25-Hydroxy,Total (for eval of Vitamin D levels) Other Visit Diagnoses Codes Abdominal wall abscess - Primary L02.211 Relevant Medications sulfamethoxazole-trimethoprim (Bactrim DS) 800-160 mg tablet fluconazole (Diflucan) 150 mg tablet Acute non-recurrent maxillary sinusitis J01.00 Relevant Medications promethazine-DM (Phenergan-DM) 6.25-15 mg/5 mL syrup FU in 2 weeks abscess check - pt to call FU in 3 mo with medicare wellness and labs at [facility] fasting and med check Reschedule mammo/DEXA - previously ordered documented in this encounter [facility] Work Phone: 02-07-2023 History of Present illness Narrative Associated Order(s): L Inj/Asp: L knee Subjective Patient ID: Janelle Pickett is a 67 y.o. female. Chief Complaint: L knee pain, Euflexxa #2/3 Left Knee HPI: Janelle is a pleasant 67-year-old female presenting today for Euflexxa series to the left knee, injection #2 of 3. Patient has had cortisone in the past with diminishing results. Symptoms are aggravated with ADLs. Sx same as prior to starting inj today, + weather changes aggravated stiffness and pain, no new injuries or falls Review of Systems Constitutional: Negative. HENT: Negative. Respiratory: Negative. Cardiovascular: Negative. Endocrine: Negative. Musculoskeletal: Positive for arthralgias. Skin: Negative. Neurological: Negative. Hematological: Negative. Psychiatric/Behavioral: Negative. Objective Ortho Exam Left Knee Exam Tenderness The patient is experiencing tenderness in the lateral joint line and medial joint line. Range of Motion Flexion: 110 abnormal Other Sensation: normal Pulse: present Swelling: mild Comments: Patient with full range of motion of distal joints with no symptom aggravation. Distal motor sensory intact with cap refill at 2 to 3 seconds. Image Results: L Inj/Asp: L knee on 02/09/2023 2:33 PM Indications: pain and joint swelling Details: 22 G needle, ultrasound-guided superolateral approach Medications: 20 mg sodium hyaluronate 10 mg/mL(mw 2.4 -3.6 million) Outcome: tolerated well, no immediate complications Patient wishes to proceed via verbal consent. Skin was prepped with Betadine, Vapocoolant spray and alcohol. Direct visualization using high-frequency linear probe of ultrasound was utilized to administer the injection of Euflexxa. Images were saved under MRN number into the PACS system. Bandaid to site post injection, no bleeding. Procedure, treatment alternatives, risks and benefits explained, specific risks discussed. Consent was given by the patient. Immediately prior to procedure a time out was called to verify the correct patient, procedure, equipment, administrative support specialist and site/side marked as required. Patient was prepped and draped in the usual sterile fashion. Assessment/Plan Encounter Diagnoses: Acute pain of left knee Orders Placed This Encounter Point of Care Ultrasound Primary osteoarthritis of left knee Patient tolerated Euflexxa injection without incident. We reviewed light activity for the next 1 to 2 days, resume normal activity as tolerated. Plan will be to follow-up here in 1 week for third injection of the series. Patient in agreement with plan of care. This note was generated using Giv[employer] software. It may contain errors in wording, punctuation or spelling. documented in this encounter [facility] Work Phone: 11-27-2022 History of Present illness Narrative Janelle is a pleasant 67-year-old female presenting today for follow-up visit of left knee pain and history of OA.No relief with last month's cortisone injection, feels leg is getting weakerAvoids stairs, walking on itSymptoms are aggravated with bending, prolonged standing activity, certain movements and inclines.Ibuprofen, Tylenol, OTC roll on pain relief lasts about 5 minutes.HEP daily, performs home PT with sister who is a PT aideDoes not want to go to formal PTDenies any new injuries or fallsL knee pain about 4-5 yrs, progressive worsening over last 1 1/2 years, cortisone no longer effective. [facility] [address] Work Phone: 10-18-2022 History of Present illness Narrative Subjective Patient ID: Janelle Pickett is a 67 y.o. female who presents for Follow-up (C/O ABD PAIN AND BLOATING WORSENING. ABD SWELLS AT NIGHT). HPI GENERALIZED ABDOMINAL PAIN AND BLOATING X SEVERAL MONTHS WHICH IS GRADUALLY GETTING WORSE 8/10. HAS NAUSEA ON AND OFF. NO CONSTIPATION OR DIARRHEA. HAS BEEN DX WITH CHRONIC CHOLECYSTITIS. Review of Systems Constitutional: Negative for chills and fever. HENT: Negative. Negative for congestion, postnasal drip and rhinorrhea. Eyes: Negative. Negative for visual disturbance. Respiratory: Negative for cough, shortness of breath and wheezing. Cardiovascular: Negative. Negative for chest pain, palpitations and leg swelling. Gastrointestinal: Positive for abdominal pain and nausea. Negative for abdominal distention, constipation, diarrhea and vomiting. Endocrine: Negative. Genitourinary: Negative for dysuria and urgency. Musculoskeletal: Negative. Negative for back pain. Skin: Negative. Negative for rash. Allergic/Immunologic: Negative for immunocompromised state. Neurological: Negative. Negative for dizziness, weakness, light-headedness and headaches. Psychiatric/Behavioral: Negative. Negative for agitation. Objective Physical Exam Constitutional: General: She is not in acute distress. HENT: Head: Normocephalic. Nose: Nose normal. Mouth/Throat: Mouth: Mucous membranes are moist. Eyes: Conjunctiva/sclera: Conjunctivae normal. Pupils: Pupils are equal, round, and reactive to light. Cardiovascular: Rate and Rhythm: Normal rate and regular rhythm. Pulses: Normal pulses. Heart sounds: Normal heart sounds. Pulmonary: Effort: No respiratory distress. Breath sounds: No wheezing. Chest: Chest wall: No tenderness. Abdominal: General: Abdomen is flat. Bowel sounds are normal. Palpations: Abdomen is soft. Tenderness: There is abdominal tenderness. Comments: GENERALIZED ABDOMINAL TENDERNESS , WORSE AT RUQ WITH GUARDINGS. Musculoskeletal: General: No tenderness. Normal range of motion. Cervical back: Normal range of motion. Lymphadenopathy: Cervical: No cervical adenopathy. Skin: General: Skin is warm and dry. Findings: No rash. Neurological: General: No focal deficit present. Mental Status: She is alert. Mental status is at baseline. Psychiatric: Mood and Affect: Mood normal. Behavior: Behavior normal. Assessment/Plan 1. Abdominal pain, generalized 2. Cirrhosis of liver without ascites, unspecified hepatic cirrhosis type (CMS/HCC) 3. Abdominal guarding 4. Hypertension associated with diabetes (CMS/HCC) 5. Gastroesophageal reflux disease without esophagitis 6. Calculus of gallbladder with chronic cholecystitis without obstruction 7. Abdominal pain, acute, right upper quadrant EXPLAINED THE NEED FOR MORE INVESTIGATIONS AT ER WITH HAVING ABDOMINAL PAIN AND GUARDING. PT IS SENT TO ER, I INFORMED THE ER PROVIDER. MONITOR BP GOAL BP LOWER THAN 130/80 LOW SALT EXERCISE DAILY MDM 1) COMPLEXITY: 1 ACUTE OR CHRONIC ILLNESS OR INJURY THAT POSES THREAT TO LIFE OR BODILY FUNCTION. 2)DATA: TESTS INTERPRETED AND OR ORDERED, TOOK INDEPENDENT HISTORY OR RECORDS REVIEWED, CASE DISCUSSED WITH ANOTHER PROVIDER 3)RISK: HIGH RISK DUE TO NATURE OF MEDICAL CONDITIONS/COMORBIDITY OR MEDICATIONS ORDERED OR SURGICAL OR PROCEDURE REFERRAL, OR REFERRED TO HOSPITAL . Pt IS SENT TO ER. documented in this encounter [facility] Work Phone: 09-17-2022 Note PROCEDURE DETAILS Preoperative Diagnosis: Radiculopathy, lumbar region, M54.16 Postoperative Diagnosis: Radiculopathy, lumbar region, M54.16 Surgeon: Miguel Angelo Resident/Fellow/Other Branch Services Manager: None of these were associated with this case Procedure: 1. L5-S1 JOSE Anesthesia: No anesthesiologist associated with this case Estimated Blood Loss: 0 Findings: NA Additional Details: The patient has a greater than 2-month history of severe low back and leg pain. The patient has previously had 6 weeks of conservative management with exercise therapy and medications. The patient is compliant with home exercises for this issue. The pain significantly interrupts the patient's physical function. The patient does not desire spine surgery. Her MRI is notable for left-sided neuroforaminal stenosis at L4-5. She is unable to do personal care including washing and dressing without assistance due to the pain Operative Report: Procedure: Interlaminar lumbar epidural steroid injection under fluoroscopic guidance at the L5-S1 interspace Diagnosis: Lumbar radiculopathy Solution: 1 mL of Kenalog 40 mg, 2 mL of lidocaine 2%, 5 mL normal saline, 8 mL total volume Total contrast: 2 mL Omnipaque Anesthesia: Local Complications: None After informed consent was obtained, the patient was brought to the OR and placed in the prone position. The area in question was prepped and draped in sterile fashion. An AP fluoroscopic view of the lumbar spine was obtained and after 5 mL of lidocaine 1% was injected into the skin, a 17-gauge Touhy needle was inserted into the skin and advanced toward the L5-S1 interspace under intermittent fluoroscopic guidance. The epidural space was identified via loss of resistance to air. Proper needle position was confirmed by AP and lateral fluoroscopy. Contrast was administered under live fluoroscopy and demonstrated appropriate epidural uptake and the absence of any intravascular or intrathecal spread. The local anesthetic steroid solution was then injected incrementally. The needle was removed. Bleeding was minimal. The patient tolerated the procedure well and was transferred to the recovery room in good condition. Attestation: Note Completion: Attending AttestationI performed the procedure without a resident Electronic Signatures: Miguel Angelo) (Signed 17-Sep-2022 21:29) Authored: Post-Operative Note, Chart Review, Note Completion Last Updated: 17-Sep-2022 21:29 by Miguel Angelo) [facility] 09-17-2022 History of Present illness Narrative On a scale of 0 to 10, the patient rates the pain at 8.Pain Location: Low Back Pain and rt side and from bilat knees into her feet.Pain Quality: Aching.Patient is a 67-year-old female. She presents today for follow-up after an extended hiatus after undergoing an L5-S1 epidural steroid injection done on 09/17/2022 that she states gave her relief of certain areas of pain in her legs but not all areas. She states that her thigh discomfort is better but she still has back pain. She also has knee pain that goes down to her ankles. She states that she is getting ready to have some gel injections with Ortho for her knees and is wondering how much relief of her pain in her legs from her knees down is going to get better.She is on gabapentin 400 mg 3 times a day with some improvement as well as methocarbamol 500 mg 1 p.o. 3 times a day as needed with some improvement. Unfortunate, she still is not where she wants to be in the discomfort that she is experiencing she still rates an 8/10.She has been doing her physical therapy home exercise program without any relief. She has also tried OTC anti-inflammatory medication without any relief. She is on methocarbamol given by our services. She tolerates this better than the Flexeril and states that it does help her. She also [facility]: 09-17-2022 Miscellaneous Notes PROCEDURE DETAILS Preoperative Diagnosis: Radiculopathy, lumbar region, M54.16 Postoperative Diagnosis: Radiculopathy, lumbar region, M54.16 Surgeon: Miguel Angelo Resident/Fellow/Other Branch Services Manager: None of these were associated with this case Procedure: 1. L5-S1 JOSE Anesthesia: No anesthesiologist associated with this case Estimated Blood Loss: 0 Findings: NA Additional Details: The patient has a greater than 2-month history of severe low back and leg pain. The patient has previously had 6 weeks of conservative management with exercise therapy and medications. The patient is compliant with home exercises for this issue. The pain significantly interrupts the patient's physical function. The patient does not desire spine surgery. Her MRI is notable for left-sided neuroforaminal stenosis at L4-5. She is unable to do personal care including washing and dressing without assistance due to the pain Operative Report: Procedure: Interlaminar lumbar epidural steroid injection under fluoroscopic guidance at the L5-S1 interspace Diagnosis: Lumbar radiculopathy Solution: 1 mL of Kenalog 40 mg, 2 mL of lidocaine 2%, 5 mL normal saline, 8 mL total volume Total contrast: 2 mL Omnipaque Anesthesia: Local Complications: None After informed consent was obtained, the patient was brought to the OR and placed in the prone position. The area in question was prepped and draped in sterile fashion. An AP fluoroscopic view of the lumbar spine was obtained and after 5 mL of lidocaine 1% was injected into the skin, a 17-gauge Touhy needle was inserted into the skin and advanced toward the L5-S1 interspace under intermittent fluoroscopic guidance. The epidural space was identified via loss of resistance to air. Proper needle position was confirmed by AP and lateral fluoroscopy. Contrast was administered under live fluoroscopy and demonstrated appropriate epidural uptake and the absence of any intravascular or intrathecal spread. The local anesthetic steroid solution was then injected incrementally. The needle was removed. Bleeding was minimal. The patient tolerated the procedure well and was transferred to the recovery room in good condition. Attestation: Note Completion: Attending Attestation I performed the procedure without a resident Electronic Signatures: Miguel Angelo) (Signed 17-Sep-2022 21:29) Authored: Post-Operative Note, Chart Review, Note Completion Last Updated: 17-Sep-2022 21:29 by Miguel Angelo () documented in this encounter [facility] Work Phone: 09-17-2022 Note Formatting of this n ote is different from the original. PROCEDURE DETAILS Preoperative Diagnosis: Radiculopathy, lumbar region, M54.16 Postoperative Diagnosis: Radiculopathy, lumbar region, M54.16 Surgeon: Miguel Angelo Resident/Fellow/Other Branch Services Manager: None of these were associated with this case Procedure: 1. L5-S1 JOSE Anesthesia: No anesthesiologist associated with this case Estimated Blood Loss: 0 Findings: NA Additional Details: The patient has a greater than 2-month history of severe low back and leg pain. The patient has previously had 6 weeks of conservative management with exercise therapy and medications. The patient is compliant with home exercises for this issue. The pain significantly interrupts the patient's physical function. The patient does not desire spine surgery. Her MRI is notable for left-sided neuroforaminal stenosis at L4-5. She is unable to do personal care including washing and dressing without assistance due to the pain Operative Report: Procedure: Interlaminar lumbar epidural steroid injection under fluoroscopic guidance at the L5-S1 interspace Diagnosis: Lumbar radiculopathy Solution: 1 mL of Kenalog 40 mg, 2 mL of lidocaine 2%, 5 mL normal saline, 8 mL total volume Total contrast: 2 mL Omnipaque Anesthesia: Local Complications: None After informed consent was obtained, the patient was brought to the OR and placed in the prone position. The area in question was prepped and draped in sterile fashion. An AP fluoroscopic view of the lumbar spine was obtained and after 5 mL of lidocaine 1% was injected into the skin, a 17-gauge Touhy needle was inserted into the skin and advanced toward the L5-S1 interspace under intermittent fluoroscopic guidance. The epidural space was identified via loss of resistance to air. Proper needle position was confirmed by AP and lateral fluoroscopy. Contrast was administered under live fluoroscopy and demonstrated appropriate epidural uptake and the absence of any intravascular or intrathecal spread. The local anesthetic steroid solution was then injected incrementally. The needle was removed. Bleeding was minimal. The patient tolerated the procedure well and was transferred to the recovery room in good condition. Attestation: Note Completion: Attending Attestation I performed the procedure without a resident Electronic Signatures: Miguel Angelo) (Signed 17-Sep-2022 21:29) Authored: Post-Operative Note, Chart Review, Note Completion Last Updated: 17-Sep-2022 21:29 by Miguel Angelo) [facility] Work Phone: 08-18-2022 History of Present illness Narrative Presents for chronic abdominal pain pain epigastric right upper quadrant like a band around her abdomen worse with activity improves with rest. Awakens her approximately 2 AM has to sit up in a chair and raise her feet up to her chest to relieve pain. Historically had gallbladder work-up CT showed absence of gallbladder MRI 6 weeks later showed polyp in gallbladder fossa with sludge in the gallbladder but no dilated common bile duct. HIDA scan performed after CT and MRI showed patent cystic and gallbladder duct but gallbladder did not light up consistent with chronic cholecystitis. Patient has multiple ports throughout her abdomen surgical history is consistent with oophorectomy, hysterectomy and inguinal hernia repair. She declines in female only denies having her gallbladder removed.Pain is not worsened by eating seems to be worse if she is constipated and will improve slightly with defecation. She denies any rectal bleeding no diarrhea but has had constipation much of her adult life. She did undergo colonoscopy 1 year ago which she states was normal. At that time she was placed on a small pearllike pill to improve her bowel habits it is not listed in her medication chart but is either Linzess or Amitiza which she takes as needed.Family history both parents are they in their mid 40s of heart disease. She had 1 and had a stillborn child at age 22 followed by hysterectomy 3 years later.She smokes 1 pack cigarettes daily does not drink alcohol denies any drug abuse. Lives independently moved after the of her to [place] to be closer to family, her sister lives next door. [facility] [place] [id number] Work Phone: 07-22-2022 Evaluation + Plan note Associated Problem(s): Degenerative lumbar spinal stenosis Referred back to pain clinic - visit set for end july [facility] Work Phone: 07-22-2022 Miscellaneous Notes Associated Problem(s): Degenerative lumbar spinal stenosis Referred back to pain clinic - visit set for end july documented in this encounter [facility] Work Phone: 07-22-2022 History of Present illness Narrative Subjective Reason for Visit: Janelle Pickett is an 66 y.o. female here for a Medicare Wellness visit. Past Medical, Surgical, and Family History reviewed and updated in chart. Reviewed all medications by prescribing practitioner or clinical pharmacist (such as prescriptions, OTCs, herbal therapies and supplements) and documented in the medical record. Advanced Care Planning Diagnosis, treatment and prognosis discussed with patient. Patient has capacity to make his/her own decision. Patient DOES NOT have a living will. Patient is advised to set one up and bring a copy of this documenation for the chart. I have counselled patient about need for smoking/tobacco cessation and how I can support efforts when patient is ready to quit. Discussed nicotine replacement therapy, Varenicline, Bupropion, hypnosis, support groups, and acupuncture as potential options. Patient currently has no signs or symptoms of tobacco related disease. HPI Subsequent medicare wellness Pt states she has had medicare insurance for years Labs Med check DM - lantus and ozempic - last a1c was maybe 2 months - stable not seeing endo renal insuff - stable monitored with labs - not seeing neph COPD- advair, rescue inhaler- stable not seeing pulm cirrhosis of the Liver - denies seeing bobbin collector in the past - denies alcohol current or past and denies known hx of hep - believes was dx with fatty liver pain - Back - ok with gabapentin but has had injections in the past - denies needing injections at this time nor wanting to follow with pain clinic at this time. she has been on methocarbamol and tizanidine in the past but little relief - I have since referred her back to the pain clinic given the uncontrolled pain and using the gabapentin more than directed- pt states she is scheduled to follow up with the pain clinic August 04 - knee - xray only- injection but little relief. is not to goal with meds GERD - on meds depression - on meds DM management Lantus 61 units at bedtime - inc to 65 units bedtime Ozempic weekly Morning - 130-140 Advised to start checking BS bid GI concerns Extensive work up has been done and she just completed MRCP with findings of a contracted gallbladder Surgeon referral is set for tomorrow Preventative Mammo - scheduled July 30 DEXA- schedule July 30 Colonoscopy [place] 2020 - norm repeat in 10 year - [facility] Depression - PHQ9 score of 15 - moderate - score of 28 July 2022 Tobacco - cont to smoke started age 21 and amt has varied but always at least 1/2 ppd - at least 20 pack year hx discussed low dose lung cancer CT screen - declines at this time but will call if she changes her mind discussed patch, wellbutrin, chantix - declines at ths time but will call if she changes he rmind Fall in Mar 2022 she missed steps and fell outside Fall July 2022 - legs gave out on her and she fell - set to follow with pain clinic again end of this month Patient Care Team: Callie Mcdonough PA-C as PCP - General Darian Riley MD as PCP - [employer]vantage PCP Review of Systems Constitutional: Positive for fatigue. Negative for chills and fever. HENT: Negative for congestion, rhinorrhea, sinus pain, sore throat and tinnitus. Eyes: Negative for discharge, redness and visual disturbance. Respiratory: Negative for cough, chest tightness, shortness of breath and wheezing. Cardiovascular: Negative for chest pain, palpitations and leg swelling. Gastrointestinal: Positive for abdominal pain and nausea. Negative for constipation, diarrhea and vomiting. Endocrine: Negative for cold intolerance and heat intolerance. Genitourinary: Negative for flank pain, frequency and urgency. Musculoskeletal: Positive for arthralgias, back pain, gait problem and myalgias. Negative for neck pain. Skin: Negative for rash and wound. Neurological: Positive for numbness. Negative for dizziness, tremors, syncope and headaches. Hematological: Does not bruise/bleed easily. Psychiatric/Behavioral: Positive for dysphoric mood and sleep disturbance. Negative for confusion and suicidal ideas. Objective Vitals: BP 134/80 (BP Location: Left arm, Patient Position: Sitting) Pulse 110 Ht 1.575 m (5' 2 ) Wt 95.7 kg (211 lb) SpO2 97% BMI 38.59 kg/m Physical Exam Vitals reviewed. Constitutional: Appearance: Normal appearance. She is obese. HENT: Head: Normocephalic. Right Ear: External ear normal. Left Ear: External ear normal. Nose: Nose normal. No congestion or rhinorrhea. Mouth/Throat: Mouth: Mucous membranes are moist. Eyes: Extraocular Movements: Extraocular movements intact. Conjunctiva/sclera: Conjunctivae normal. Pupils: Pupils are equal, round, and reactive to light. Cardiovascular: Rate and Rhythm: Normal rate and regular rhythm. Pulses: Normal pulses. Pulmonary: Effort: Pulmonary effort is normal. Breath sounds: Normal breath sounds. Abdominal: General: Bowel sounds are normal. Palpations: Abdomen is soft. Tenderness: There is abdominal tenderness. There is no right CVA tenderness or left CVA tenderness. Musculoskeletal: General: Tenderness present. Normal range of motion. Cervical back: Normal range of motion and neck supple. No tenderness. Skin: General: Skin is warm and dry. Neurological: General: No focal deficit present. Mental Status: She is alert and oriented to person, place, and time. Psychiatric: Mood and Affect: Mood normal. Behavior: Behavior normal. Testing Component Latest Ref [facility] 07/16/2022 WBC 4.4 - 11.3 x10E9/L 6.8 RBC 4.00 - 5.20 x10E12/L 5.06 HEMOGLOBIN 12.0 - 16.0 g/dL 14.8 HEMATOCRIT 36.0 - 46.0 % 45.8 MCV 80 - 100 fL 91 MCHC 32.0 - 36.0 g/dL 32.3 Platelets 150 - 450 x10E9/L 115 (L) RED CELL DISTRIBUTION WIDTH 11.5 - 14.5 % 13.2 Neutrophils % 40.0 - 80.0 % 64.9 Immature Granulocytes %, Automated 0.0 - 0.9 % 0.6 Lymphocytes % 13.0 - 44.0 % 27.4 Monocytes % 2.0 - 10.0 % 6.2 Eosinophils % 0.0 - 6.0 % 0.6 Basophils % 0.0 - 2.0 % 0.3 Neutrophils Absolute 1.20 - 7.70 x10E9/L 4.42 Lymphocytes Absolute 1.20 - 4.80 x10E9/L 1.86 Monocytes Absolute 0.10 - 1.00 x10E9/L 0.42 Eosinophils Absolute 0.00 - 0.70 x10E9/L 0.04 Basophils Absolute 0.00 - 0.10 x10E9/L 0.02 GLUCOSE 74 - 99 mg/dL 124 (H) SODIUM 136 - 145 mmol/L 138 POTASSIUM 3.5 - 5.3 mmol/L 4.1 CHLORIDE 98 - 107 mmol/L 103 Bicarbonate 21 - 32 mmol/L 29 Anion Gap 10 - 20 mmol/L 10 Blood Urea Nitrogen 6 - 23 mg/dL 8 Creatinine 0.50 - 1.05 mg/dL 1.00 GFR Female >90 mL/min/1.73m2 62 Calcium 8.6 - 10.3 mg/dL 8.6 Albumin 3.4 - 5.0 g/dL 3.4 Alkaline Phosphatase 33 - 136 U/L 112 Total Protein 6.4 - 8.2 g/dL 6.6 AST 9 - 39 U/L 17 Bilirubin Total 0.0 - 1.2 mg/dL 0.2 ALT 7 - 45 U/L 16 POC Color, Urine Straw, Yellow, Light Yellow Yellow POC Appearance, Urine Clear Clear POC Specific [employer], Urine 1.005 - 1.035 1.025 POC PH, Urine No Reference Range Established PH 5.5 POC Protein, Urine NEGATIVE, 30 (1+) mg/dl 100 (2+) ! POC Glucose, Urine NEGATIVE mg/dl NEGATIVE POC Blood, Urine NEGATIVE MODERATE (2+) ! POC Ketones, Urine NEGATIVE mg/dl NEGATIVE POC Bilirubin, Urine NEGATIVE NEGATIVE POC Urobilinogen, Urine 0.2, 1.0 EU/DL 0.2 Poc Nitrate, Urine NEGATIVE NEGATIVE POC Leukocytes, Urine NEGATIVE NEGATIVE CHOLESTEROL 0 - 199 mg/dL 171 HDL CHOLESTEROL mg/dL 34.0 ! Cholesterol/HDL Ratio 5.0 LDL 0 - 99 mg/dL 78 VLDL 0 - 40 mg/dL 59 (H) TRIGLYCERIDES 0 - 149 mg/dL 294 (H) Non HDL Cholesterol mg/dL 137 Hepatitis A AB- IgM NONREACTIVE NONREACTIVE Hepatitis B Core AB; IgM NONREACTIVE NONREACTIVE Hepatitis B Surface AG NONREACTIVE NONREACTIVE Hepatitis C AB NONREACTIVE NONREACTIVE IRON 35 - 150 ug/dL 44 TIBC 240 - 445 ug/dL 249 % Saturation 25 - 45 % 18 (L) ALBUMIN (MG/L) IN URINE Not Established mg/L 1,052.2 Albumin/Creatine Ratio 0.0 - 30.0 ug/mg milk route supervisor 1,388.1 (H) Creatinine, Urine Random 20.0 - 320.0 mg/dL 75.8 Hemoglobin A1C % 7.6 ! Estimated Average Glucose MG/DL 171 FERRITIN 8 - 150 ug/L 111 MAGNESIUM 1.60 - 2.40 mg/dL 1.37 (L) Thyroid Stimulating Hormone 0.44 - 3.98 mIU/L 7.04 (H) Thyroxine, Free 0.61 - 1.12 ng/dL 0.84 MRCP MPRESSION: CT ABDOMEN AND PELVIS 12 JUNE 2022 SHOWED WHAT AT THAT TIME WAS TAKEN TO BE POSTSURGICAL CHANGES RELATED TO CHOLECYSTECTOMY. THE CT APPEARANCE OF THE GALLBLADDER FOSSA RESEMBLE STONES WITHIN A CYSTIC DUCT REMNANT. GIVEN THE PATIENT HAS NOT HAD A CHOLECYSTECTOMY, THE CT FINDINGS MUST REPRESENT STONES WITHIN CHRONICALLY, COMPLETELY CONTRACTED GALLBLADDER I HAVE ALSO REFERENCED IMAGES AND REPORT FROM MORE RECENT HIDA 02 JULY 2022 TODAY'S EXAM SHOWS SAME, CHRONICALLY CONTRACTED GALLBLADDER TODAY'S EXAM CONFIRMS NO CHOLEDOCHOLITHIASIS OR BILIARY STRICTURE ALLOWING FOR AGE-RELATED PHYSIOLOGIC BILIARY ECTASIA, I DO NOT SUSPECT PATHOLOGIC BILIARY DUCT DILATION. THE EXTRAHEPATIC DUCT NEAR THE HILUS MEASURES 7 MM DIAMETER, WITHIN EXPECTED LIMITS AT THIS AGE LOBULAR AND NODULAR LIVER SUSPECT FOR CIRRHOSIS OR AT LEAST DEVELOPING HEPATOCELLULAR DISEASE THE UNCHANGED SPLENOMEGALY COULD BE FROM PORTAL HYPERTENSION THE ENTIRE PORTAL VENOUS SYSTEM INCLUDING THE SPLENIC VEIN, SMV AND ITS MAJOR TRIBUTARIES, MAIN AND INTRAHEPATIC PORTAL VEINS ARE ALL PATENT; NO ACUTE PORTAL VENOUS THROMBOSIS ALL THREE HEPATIC VEINS ARE PATENT; NO ACUTE HEPATIC VENOUS THROMBOSIS NO LIVER (OR ANY OTHER ABDOMINAL) MASS SUSPECT FOR MALIGNANCY, ONLY THE RIGHT ADRENAL ADENOMA Impression MDM 1) COMPLEXITY: 1 ACUTE OR CHRONIC ILLNESS OR INJURY THAT POSES THREAT TO LIFE OR BODILY FUNCTION. 2)DATA: TESTS INTERPRETED AND OR ORDERED, TOOK INDEPENDENT HISTORY OR RECORDS REVIEWED, CASE DISCUSSED WITH ANOTHER PROVIDER 3)RISK: HIGH RISK DUE TO NATURE OF MEDICAL CONDITIONS/COMORBIDITY OR MEDICATIONS ORDERED OR SURGICAL OR PROCEDURE REFERRAL, OR REFERRED TO HOSPITAL . Reviewed labs and Testing on file Patient to follow diet low in cholesterol, fat, and sodium. Patient is advised to increase Exercise. Patient is recommended to lose weight. Reviewed Meds and discussed common side effects Continue as directed Patient is strongly advised to be compliant with recommendations. Return to Clinic sooner if needed. Patient denies further questions/concerns at this time Assessment/Plan Problem List Items Addressed This Visit Nervous Degenerative lumbar spinal stenosis Current Assessment & Plan Referred back to pain clinic - visit set for end of July Circulatory Hypertension, essential Overview Last Assessment & Plan: Blood pressures are currently well controlled however the patient did present with systolic blood pressures in the 160s which were likely stress related. We will start low-dose lisinopril for renal protection at 2.5 mg daily. Digestive Cirrhosis of liver (CMS/HCC) Calculus of gallbladder with chronic cholecystitis without obstruction Genitourinary Vulvovaginal candidiasis Relevant Medications fluconazole (Diflucan) 150 mg tablet Other Relevant Orders Vitamin D, Total Endocrine/Metabolic Diabetes mellitus with stage 3 chronic kidney disease (CMS/HCC) Relevant Orders CBC and Auto Differential Comprehensive Metabolic Panel Hemoglobin A1C Vitamin D, Total Magnesium Vitamin B12 Class 2 severe obesity due to excess calories with serious comorbidity and body mass index (BMI) of 38.0 to 38.9 in adult (CMS/HCC) Acquired hypothyroidism Relevant Medications levothyroxine (Synthroid, Levoxyl) 25 mcg tablet Other Depression, major, recurrent, moderate (CMS/HCC) Hypomagnesemia Relevant Medications magnesium oxide (Mag-Ox) 400 mg tablet Other Relevant Orders Magnesium Vitamin B12 Other Visit Diagnoses Medicare annual wellness visit, subsequent - Primary Abdominal lymphadenopathy Relevant Medications dicyclomine (Bentyl) 20 mg tablet Advanced care planning/counseling discussion Time Spent Prep time on day of patient encounter: 5 minutes Time spent directly with patient, family or caregiver: 50 minutes Additional Time Spent on Patient Care Activities: 0 minutes Documentation Time: 5 minutes Other Time Spent: 0 minutes Total: 60 minutes FU in 2 mo with med check /BS log check - pt to call if she needs FU in 3-4 mo with labs at [facility] fasting and med check Thyroid - will start on meds Hypomag - inc to bid DM - see HPI for adjustment GI concerns - levsin and follow up with surgeon Pain -I will not cont gabapentin in my office - will need to get from pain clinic Vulvovaginal yeast infection with recent Abx - will start on diflucan Hepatitis - consider referral to bobbin collector Time Prep 5 min Directly with patient 50 min Documentation - 5 min Total 60 min documented in this encounter [facility] Work Phone: 07-16-2022 History of Present illness Narrative Subjective Patient ID: Janelle Pickett is a 66 y.o. female who presents for Blood in Urine (C/O HEMATURIA EPISODE YESTERDAY - ALL DAY YESTERDAY EVERY URINATION HAD BRIGHT RED BLOOD. NO BLOOD NOTICED TODAY THOUGH. H/O HEMATURIA AND PATIENT WAS REFERRED TO UROLOGIST LAST MONTH BUT MURRAY NOT GONE TO APPOINTMENT. C/O RLQ AND RUQ PAIN - PENDING APPOINTMENT WITH SURGEON NEXT WEEK TO DISCUSS ABNORMAL HIDA WITH PENDING MRCP. ). HPI: Presents today for C/O HEMATURIA EPISODE YESTERDAY modifying factors consists of SHE HAS A H/O HEMATURIA AND WAS REFERRED TO UROLOGY BY HER PCP AND SEEN DR. LAGOS ON 07/02/22, BUT SHE IS NOT SCHEDULED FOR THE CYSTO HE RECOMMENDED. associated symptoms consist of PAIN WITH URINATION X 1 WEEK prior treatment consists of medication NONE ABD PAIN- APPT WITH DR. YO GENERAL SURGEON ON 07/23/22 Visit Vitals BP 118/76 Pulse 80 Ht 1.575 m (5' 2 ) Wt 95.3 kg (210 lb) BMI 38.41 kg/m Smoking Status Every Day BSA 2.04 m Review of Systems Constitutional: Negative for chills, fatigue, fever and unexpected weight change. HENT: Negative for congestion, ear pain, sore throat and trouble swallowing. Eyes: Negative for photophobia, pain, redness and visual disturbance. Respiratory: Negative for apnea, cough, choking, chest tightness, shortness of breath and wheezing. Cardiovascular: Negative for chest pain, palpitations and leg swelling. Gastrointestinal: Negative for abdominal distention, abdominal pain, blood in stool, constipation, diarrhea, nausea and vomiting. Genitourinary: Negative for difficulty urinating, dysuria, flank pain, frequency, hematuria and urgency. Musculoskeletal: Negative for arthralgias, back pain, gait problem, joint swelling, myalgias and neck pain. Skin: Negative for rash and wound. Neurological: Negative for dizziness, seizures, syncope, facial asymmetry, speech difficulty, weakness, numbness and headaches. Psychiatric/Behavioral: Negative for confusion, sleep disturbance and suicidal ideas. The patient is not nervous/anxious. Objective Physical Exam Constitutional: Appearance: Normal appearance. She is normal weight. HENT: Head: Normocephalic. Eyes: Extraocular Movements: Extraocular movements intact. Conjunctiva/sclera: Conjunctivae normal. Pupils: Pupils are equal, round, and reactive to light. Cardiovascular: Rate and Rhythm: Normal rate and regular rhythm. Pulses: Normal pulses. Heart sounds: Normal heart sounds. Pulmonary: Effort: Pulmonary effort is normal. Breath sounds: Normal breath sounds. Abdominal: General: Bowel sounds are normal. Comments: RUQ AND RLQ MODERATE ABD PAIN Musculoskeletal: General: Normal range of motion. Cervical back: Normal range of motion. Skin: General: Skin is warm and dry. Neurological: General: No focal deficit present. Mental Status: She is alert and oriented to person, place, and time. Psychiatric: Mood and Affect: Mood normal. Behavior: Behavior normal. Thought Content: Thought content normal. Judgment: Judgment normal. Assessment/Plan Problem List Items Addressed This Visit Nervous Dysuria Relevant Medications doxycycline (Adoxa) 100 mg tablet Genitourinary Gross hematuria - Primary Relevant Medications doxycycline (Adoxa) 100 mg tablet Other Relevant Orders POCT UA Automated manually resulted (Completed) Urine Culture Endocrine/Metabolic Class 2 severe obesity due to excess calories with serious comorbidity and body mass index (BMI) of 38.0 to 38.9 in adult ([facility]) Other Breast cancer screening by mammogram Relevant Orders BI mammo bilateral screening tomosynthesis Post-menopausal Relevant Orders XR DEXA bone density I WILL SEND URINE FOR CULTURE AND DOXY FOR DYSURIA R/T CKD. INSTRUCTED TO CALL DR. LAGOS'S OFFICE TO SCHEDULE CYSTO THAT WAS RECOMMENDED AT HER 07/02/22 APPT WITH HIM WE DISCUSSED MOST COMMON SIDE EFFECTS OF PRESCRIBED MEDICATIONS. INDICATIONS, RISK, COMPLICATIONS, AND ALTERNATIVES OF MEDICATION/THERAPEUTICS WERE EXPLAINED AND DISCUSSED. PLEASE MONITOR CLOSELY FOR ANY UNTOWARD SIDE EFFECTS OR COMPLICATIONS OF MEDICATIONS. PATIENT IS STRONGLY ADVISED TO BE COMPLIANT WITH RECOMMENDATIONS. QUESTIONS AND CONCERNS WERE ADDRESSED. INSTRUCTED TO CALL, RETURN SOONER, OR GO TO THE ER, IF SYMPTOMS PERSIST OR WORSEN. THEY VOICED UNDERSTANDING AND DENIES FURTHER QUESTIONS AT THIS TIME. TIME CODE 1. PREPARATION FOR PATIENT'S VISIT (REVIEWING CHART, CURRENT MEDICAL RECORDS, OUTSIDE HEALTH PROVIDER RECORDS, PREVIOUS HISTORY, EXAM, TEST, PROCEDURE, AND MEDICATIONS) 2. FACE TO FACE ENCOUNTER OBTAINING HISTORY FROM THE PATIENT/FAMILY/CAREGIVERS; PERFORMING EVALUATION AND EXAMINATION; ORDERING TESTS OR PROCEDURES; REFERRING AND COMMUNICATING WITH OTHER HEALTHCARE PROVIDERS; COUNSELING AND EDUCATION OF THE PATIENT/FAMILY/CAREGIVERS; INDEPENDENTLY INTERPRETING RESULTS (TESTS, LABS, PROCEDURES, IMAGING) AND COMMUNICATING AND EXPLAINING RESULTS TO THE PATIENT/FAMILY/CAREGIVERS 3. COORDINATION OF CARE; PREPARING AND PRINTING DISCHARGE INSTRUCTIONS AND ANY EDUCATIONAL MATERIAL FOR THE PATIENT/FAMILY/CAREGIVERS. DOCUMENTING CLINICAL INFORMATION IN THE ELECTRONIC MEDICAL RECORD 4. REVIEWING OARRS NEEDED MDM 1) COMPLEXITY: MORE THAN 1 STABLE CHRONIC CONDITION ADDRESSED OR 1 ACUTE ILLNESS ADDRESSED 2)DATA: TESTS INTERPRETED AND OR ORDERED, TOOK INDEPENDENT HISTORY OR RECORDS REVIEWED 3)RISK: MODERATE RISK DUE TO NATURE OF MEDICAL CONDITIONS/COMORBIDITY OR MEDICATIONS ORDERED OR SURGICAL OR PROCEDURE REFERRAL Follow up as before ON 07/22/22 documented in this encounter [facility] Work Phone: 07-08-2022 Evaluation + Plan note Associated Problem(s): Depression, major, recurrent, moderate (CMS/HCC) Stable on Zoloft - believes will improve when the pain is better managed [facility] Work Phone: 07-08-2022 Miscellaneous Notes Associated Problem(s): Depression, major, recurrent, moderate (CMS/HCC) Stable on Zoloft - believes will improve when the pain is better managed documented in this encounter [facility] Work Phone: 07-08-2022 History of Present illness Narrative Subjective Patient ID: Janelle Pickett is a 66 y.o. female who presents for Follow-up (F/U HIDA SCAN. C/O RIGHT ABDOMINAL PAIN RADIATES TO BACK AND DOWN B/L LEGS. ) HPI Follow up GI complaints She has been seen in multiple hospitals the past month [facility] testing Caridac work up - approp.NEG Labs CT abd Discharged with 1 Abd pain 2 Hematuria - suggest referral to uro 3 Adrenal Nodule 4 Abd lymphadenopathy - suggest CT in 3 mo to r/o malignancy /cirrhosis - this was ordered and is pending Given short supply of percocet and dicyclomine - since completed She cont to suffer with Generalized Abd pain and feels like she is bloating and hematuria Dicyclomine is offering some relief Constipation - BM every 4 days and is having to take a laxative x 2 months She is using corectal every few days Colonoscopy [place] 2020 and was Wnl - repeat in 10 years She was re-referred back to uro but again has not followed up with him She was seen in [place] [facility] June 20 given the GI symptoms and they did additional testing and suggested HIDA or MRCP. Through a telephone message I ordered the HIDA which she had completed and was quite suspicious of a prob so she was notified and given the option of MRCP or gen surgeon referral. She made a visit for today to further discuss how to move forward given the severe pain in the RUQ and radiates into her R back region. She denies fevers. Given the severity of her pain I have suggested we do both the MRCP order and referral. I have refilled bentyl for her in the meantime for prn She cont to suffer from back and leg pain as well and previously used the gabapentin more than what was written given of her pain. When she was seen earlier this month I did not fill the med for her for this reason. I encouraged her to follow with the pain clinic. She did not get in with the pain clinic given the severity of the GI issues. I have agreed to do a 1 month supply of gabapentin for her however she needs to take as directed. I am not guaranteeing I will manage this in the future. 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 Cirrhosis of liver (CMS/HCC) COPD (chronic obstructive pulmonary disease) (CMS/HCC) Degenerative lumbar spinal stenosis Depression Kidney insufficiency Lumbar radiculopathy, chronic Myalgia Pain in thoracic spine Pain of left lower extremity Degenerative disc disease at L5-S1 level Depression, major, single episode, mild (CMS/HCC) Elevated antinuclear antibody (KARIME) level Hypertension, essential Mild cognitive impairment Sacroiliac joint dysfunction of left side Chronic back pain Claustrophobia Abdominal pain Diabetes mellitus with stage 3 chronic kidney disease (CMS/HCC) Review of Systems Constitutional: Positive for appetite change and fatigue. Negative for chills and fever. HENT: Negative for congestion, rhinorrhea, sinus pain, sore throat and tinnitus. Eyes: Negative for discharge, redness and visual disturbance. Respiratory: Negative for cough, chest tightness, shortness of breath and wheezing. Cardiovascular: Negative for chest pain, palpitations and leg swelling. Gastrointestinal: Positive for abdominal pain, constipation and nausea. Negative for diarrhea and vomiting. Endocrine: Negative for cold intolerance and heat intolerance. Genitourinary: Negative for flank pain, frequency and urgency. Musculoskeletal: Positive for arthralgias, back pain and myalgias. Negative for gait problem and neck pain. Skin: Negative for rash and wound. Neurological: Negative for dizziness, tremors, syncope, numbness and headaches. Hematological: Does not bruise/bleed easily. Psychiatric/Behavioral: Negative for confusion, sleep disturbance and suicidal ideas. Past Medical History: Diagnosis Date H/O mammogram 2021 2021-NORMAL- [facility] Influenza vaccination declined 11/2021 Pap smear for cervical cancer screening 02/2022- NORMAL- DONE AT [address] [place] [address] Past Surgical History: Procedure Laterality Date COLONOSCOPY 2020 [facility] - NORMAL REPEAT IN 10 YEARS OOPHORECTOMY 10/30/1999 OTHER SURGICAL HISTORY Bilateral MEDIAL BRANCH BLOCK - PETEY BLANCHARD (PAIN MANAGEMENT) BILAT- L4-S1 MBB OTHER SURGICAL HISTORY 12/25/2021 Medial branch block Family History Problem Relation Name Age of Onset Aneurysm Mother Edema Father 1969 Other (MALIGNANT NEOPLASM) Brother Cancer Father's Sister 2-3 AUNTS ON FATHER SIDE Social History Tobacco Use Smoking status: Every Day Types: Cigarettes Smokeless tobacco: Never Vaping Use Vaping status: Never Used Substance Use Topics Alcohol use: Never Drug use: Never Allergies Allergen Reactions Gemfibrozil Other abd cramps Current Outpatient Medications Medication Sig Dispense Refill albuterol 90 mcg/actuation inhaler Inhale 2 puffs every 6 hours if needed for wheezing or shortness of breath. atorvastatin (Lipitor) 20 mg tablet Take 1 tablet (20 mg) by mouth once daily. Autolet lancing device 1 each if needed. Use as instructed BD Ultra-Fine Short Pen Needle 31 gauge x 5/16 needle cilostazol (Pletal) 50 mg tablet Take 1 tablet (50 mg) by mouth once daily. citalopram (CeleXA) 40 mg tablet Take 1 tablet (40 mg) by mouth once daily. cyclobenzaprine (Flexeril) 10 mg tablet Take 1 tablet (10 mg) by mouth 3 times a day as needed for muscle spasms. dicyclomine (Bentyl) 20 mg tablet Take 1 tablet (20 mg) by mouth 4 times a day as needed (Abd pain). 40 tablet 0 docusate sodium (Colace) 100 mg capsule Take 1 capsule (100 mg) by mouth 2 times a day as needed for constipation. 60 capsule 0 DULoxetine (Cymbalta) [address] capsule Take 1 capsule (20 mg) by mouth once daily. fluticasone propion-salmeteroL (Advair HFA) 230-21 mcg/actuation inhaler Inhale 2 puffs in the morning and 2 puffs before bedtime. FreeStyle glucose monitoring kit 1 each 2 times a day as needed (hyperglycemia and hypoglycemia symptoms). 1 each 2 FreeStyle Test strip 1 each in the morning and 1 each before bedtime. gabapentin (Neurontin) 400 mg capsule Take 1 capsule (400 mg) by mouth in the morning and 1 capsule (400 mg) before bedtime. ibuprofen 600 mg tablet Take 1 tablet (600 mg) by mouth every 6 hours if needed. insulin glargine (Lantus) 100 unit/mL (3 mL) pen Inject 61 Units under the skin once daily. ipratropium-albuteroL (Duo-Neb) 0.5-2.5 mg/3 mL nebulizer solution Inhale. Use 1 unit dose in nebulizer every 4 hours as needed lactulose 20 gram/30 mL oral solution Take 15 mL (10 g) by mouth 2 times a day as needed (constipation). 900 mL 0 lancets 33 gauge misc loratadine (Claritin) 10 mg tablet Take 1 tablet (10 mg) by mouth once daily. magnesium oxide (Mag-Ox) 400 mg tablet Take 1 tablet (400 mg) by mouth once daily. montelukast (Singulair) 10 mg tablet Take 1 tablet (10 mg) by mouth once daily at bedtime. naproxen (Naprosyn) 500 mg tablet 1 tablet (500 mg) in the morning and 1 tablet (500 mg) in the evening. Take with meals. nebulizers misc 1 each. nystatin (Mycostatin) 100,000 unit/gram powder Apply topically 2 times a day. omeprazole (PriLOSEC) [address] capsule Take 1 capsule (40 mg) by mouth once daily in the morning. Take before meals. ondansetron ODT (Zofran-ODT) 4 mg disintegrating tablet Take 1 tablet (4 mg) by mouth every 4 hours if needed for nausea or vomiting. potassium chloride CR (Klor-Con) 10 mEq ER tablet Take 1 tablet (10 mEq) by mouth once daily. semaglutide (Ozempic) 1 mg/dose (4 mg/3 mL) pen injector Inject under the skin. 61 units BID sertraline (Zoloft) 50 mg tablet Take 1 tablet (50 mg) by mouth once daily. tiotropium (Spiriva with HandiHaler) [address] 1 capsule (18 mcg) into inhaler and inhale once daily. tiZANidine (Zanaflex) 4 mg tablet 1 tablet (4 mg) every 6 hours if needed. traZODone (Desyrel) 100 mg tablet Take 1 tablet (100 mg) by mouth once daily at bedtime. HYDROcodone-acetaminophen ([place]) 5-325 mg tablet Take 1 tablet by mouth every 6 hours if needed. FROM ER oxyCODONE-acetaminophen (Percocet) 5-325 mg tablet Take 1 tablet by mouth every 6 hours if needed. No current facility-administered medications for this visit. Objective BP 136/80 Pulse 80 Ht 1.575 m (5' 2 ) Wt 94.8 kg (209 lb) BMI 38.23 kg/m Physical Exam Vitals reviewed. Constitutional: Appearance: Normal appearance. She is obese. HENT: Head: Normocephalic. Right Ear: External ear normal. Left Ear: External ear normal. Nose: Nose normal. No congestion or rhinorrhea. Mouth/Throat: Mouth: Mucous membranes are moist. Eyes: Extraocular Movements: Extraocular movements intact. Conjunctiva/sclera: Conjunctivae normal. Pupils: Pupils are equal, round, and reactive to light. Cardiovascular: Rate and Rhythm: Normal rate and regular rhythm. Pulses: Normal pulses. Pulmonary: Effort: Pulmonary effort is normal. Breath sounds: Normal breath sounds. Abdominal: General: Bowel sounds are normal. Palpations: Abdomen is soft. Tenderness: There is abdominal tenderness. There is no right CVA tenderness or left CVA tenderness. Musculoskeletal: General: No tenderness. Normal range of motion. Cervical back: Normal range of motion and neck supple. No tenderness. Skin: General: Skin is warm and dry. Neurological: General: No focal deficit present. Mental Status: She is alert and oriented to person, place, and time. Psychiatric: Mood and Affect: Mood normal. Behavior: Behavior normal. Testing Reviewed testing at [facility] Reviewed testing at [facility] Reviewed HIDA scan I ordered Impression MDM 1) COMPLEXITY: 1 UNDIAGNOSED NEW PROBLEM WITH UNCERTAIN PROGNOSIS 2)DATA: TESTS INTERPRETED AND OR ORDERED, TOOK INDEPENDENT HISTORY OR RECORDS REVIEWED 3)RISK: MODERATE RISK DUE TO NATURE OF MEDICAL CONDITIONS/COMORBIDITY OR MEDICATIONS ORDERED OR SURGICAL OR PROCEDURE REFERRAL, . Reviewed labs and Testing on file Patient to follow diet low in cholesterol, fat, and sodium. Patient is advised to increase Exercise. Patient is recommended to lose weight. Reviewed Meds and discussed common side effects Continue as directed Patient is strongly advised to be compliant with recommendations. Return to Clinic sooner if needed. Patient denies further questions/concerns at this time Assessment/Plan Problem List Items Addressed This Visit Nervous Lumbar radiculopathy, chronic Relevant Medications gabapentin (Neurontin) 400 mg capsule Abdominal pain - Primary Relevant Orders MR abdomen w and wo IV contrast MRCP Referral to General Surgery Circulatory Hypertension, essential Digestive Chronic constipation Relevant Orders MR abdomen w and wo IV contrast MRCP Referral to General Surgery Endocrine/Metabolic Diabetes mellitus with stage 3 chronic kidney disease (CMS/HCC) Other Depression, major, recurrent, moderate (CMS/HCC) Stable on Zoloft - believes will improve when the pain is better managed Abnormal biliary HIDA scan Relevant Orders MR abdomen w and wo IV contrast MRCP Referral to General Surgery Other Visit Diagnoses Abdominal lymphadenopathy Relevant Medications dicyclomine (Bentyl) 20 mg tablet FU in 2 weeks with labs at [facility] fasting and med check and medicare wellness [facility] Gen surgeon referral Pt to follow with her pain clinic as well documented in this encounter [facility] Work Phone: 07-01-2022 History of Present illness Narrative Patient is here for hematuria. She states she was in the ER for constipation and unsure if blood was in her stool or urine . UA done recently showed small amount of blood CT on 07/01 showed 1cm simple fluid density cyst in left kidney. No stones seen. No recent UTI's.. GRICELDA sx are chronic and stable.. Nocturia x 6-8, depending on fluid intake [facility] Work Phone: 04-22-2022 History of Present illness Narrative I have personally reviewed the OARRS report for JANELLE PICKETT. I have considered the risks of abuse, dependence, addiction and diversion.Last urine drug screening date/ordered today: 3Date of the last Controlled Substance Agreement: 3Patient presents today for.....1 to est as new patient2 med checkDM - lantus and ozempic - last a1c was maybe 2 months - stable not seeing endorenal insuff - stable monitored with labs - not seeing nephCOPD- advair, rescue inhaler- stable not seeing pulmcirrhosis of the Liver - denies seeing bobbin collector in the past - denies alcohol current or past and denies known hx of heppain- Back - ok with gabapentin but has had injections in the past - denies needing at this time nor wanting to follow with pain clinic at this time. she has been on methocarbamol and tizanidine in the past but little relief- knee - xray only- injection but little relief. is not to goal with medsGERD - on medsdepression - on meds3 Preventative TestingPAP feb 2022- NORMmammo 2021 fall WNlDEXAcolonoscopy - 2020 - WNl - repeat in 10 yearsdepression screen - PHQ9 - score of 8 - mild but has known depression and is on meds4 Tobacco usestarted age 21 and amt has varied but always at least 1/2 ppd - at least 20 pack year hxFall in Dec she missed steps and fell outside [facility] Work Phone: 04-22-2022 History of Present illness Narrative I have personally reviewed the OARRS report for JANELLE PICKETT. I have considered the risks of abuse, dependence, addiction and diversion.Last urine drug screening date/ordered today: 3Date of the last Controlled Substance Agreement: 3Patient presents today for.....1 to est as new patient2 med checkDM - lantus and ozempic - last a1c was maybe 2 months - stable not seeing endorenal insuff - stable monitored with labs - not seeing nephCOPD- advair, rescue inhaler- stable not seeing pulmcirrhosis of the Liver - denies seeing bobbin collector in the past - denies alcohol current or past and denies known hx of hep - believes was dx with fatty liverpain- Back - ok with gabapentin but has had injections in the past - denies needing injections at this time nor wanting to follow with pain clinic at this time. she has been on methocarbamol and tizanidine in the past but little relief- knee - xray only- injection but little relief. is not to goal with medsGERD - on medsdepression - on meds3 Preventative TestingPAP feb 2022- NORMmammo 2021 fall WNlDEXAcolonoscopy - 2020 - WNl - repeat in 10 yearsdepression screen - PHQ9 - score of 8 - mild but has known depression and is on meds4 Tobacco usestarted age 21 and amt has varied but always at least 1/2 ppd - at least 20 pack year hxdiscussed low dose lung cancer CT screen - declines at this time but will call if she changes her minddiscussed patch, wellbutrin, chantix - declines at ths time but will call if she changes he rmindFall in Dec she missed steps and fell outside [facility] Work Phone: 04-11-2022 History of Present illness Narrative Janelle is a pleasant 67-year-old female presenting today for follow-up visit of left knee pain and history of OA.Patient was last seen here by me in April 2022 and was given a cortisone injection at that time. + good relief until a couple weeks ago, effects wore off. No new injuries. Denies any recent falls.Symptoms are aggravated with bending, prolonged standing activity, certain movements and inclines.Taking Advil and some Tylenol with little relief.Blood sugars 145-160. -[facility] Work Phone: 03-11-2022 History of Present illness Narrative L knee pain, hurts bad taking Advil without relief. Worse x 2 weeks. Denies new injury.Pain mgmt this am- went there on accident. No current tx.Later in visit reports 2 falls since ED visit in March,. [facility] referred here.Declines XR today for further eval, requesting pain meds. [facility] Work Phone: 12-03-2021 History of Present illness Narrative On a scale of 0 to 10, the patient rates the pain at 8.Pain Location: Low Back Pain and bilat sides, rt knee.Pain Quality: Aching.Pain Radiation: rt side lower back radiates up to rt scapula area.Sensory/ Motor: Numbness, Pins and [place] and intermittently.Timing/Duration: Constant and > 12 weeks duration.Exacerbating Factors: standing, stairs and walking.Alleviating Factors: Medications, Other: ___.Goals for Pain Management:Inj. education completed written and verbally.Patient is a 66-year-old female. She presents today for follow-up after undergoing a lumbar MRI. She has lower back pain without any significant radiculopathy. She states that it is mainly in the lower back and is now going up. She states that it is a spasming type sensation and it is very bothersome. She became tearful today discussing it. She rates an 8/10. She states that something has to be done. She states that this is just miserable. She cannot do anything because of the pain. It is affecting her quality of life and activity living.She has tried Medrol and Advil without relief. She is not able to take Tylenol due to cirrhosis. She previously tried Flexeril that did help but made her tired. She wonders if there is something else she can take and what the MRI shows to see if there are any injection options. To make note she states that her primary care physician is aware of the adrenal lesion found on the MRI. [facility] Work Phone: 11-12-2021 History of Present illness Narrative On a scale of 0 to 10, the patient rates the pain at 9.Pain Location: Low Back Pain.Pain Quality: Tenderness, Unable to describe and HURTS.Pain Radiation: LEFT MEDIAL THIGH.Sensory/ Motor: Numbness, Pins and [place] and RIGHT LATERAL THIGH.Timing/Duration: Constant and > 12 weeks duration.Exacerbating Factors: motion, repetitive motion, standing, walking, weightbearing and ADL.Alleviating Factors: Cold Therapy, Exercise, Medications, Repositioning.24 Hour Behavior:Symptoms are worse in the am.Symptoms are worse in the pm.Symptoms are better lying down.Patient presents today by herself. She is here after getting her previous imaging. Unfortunate, it ended up being of her pelvis and it was from back in 2017. She does have it with her today. She has lower back pain with left radiating leg pain that goes all the way down to her ankle. She states that her leg is also weak. She rates it a 7-9/10. Previous sacroiliac joint injection did not help. She was started on gabapentin at her last appointment but unfortunate, this has not helped either. She is tolerating it.She has tried Medrol and Advil without relief. She is not able to take Tylenol due to cirrhosis. Patient is somewhat tearful today stating that she just needs something to give her some relief. She is very bothered by all of this and it is affecting her quality of life and activity living. [facility] Work Phone: 10-29-2021 History of Present illness Narrative On a scale of 0 to 10, the patient rates the pain at 9.Pain Location: lt knee.Pain Quality: Aching, Pressure, Sharp, Stabbing and Throbbing.Pain Radiation: up into her thigh and down her lower leg into her lt foot.Sensory/ Motor: Weakness, Decreased Sensation and lt leg and knee.Timing/Duration: Constant and 6-12 weeks duration.Exacerbating Factors: kneeling, motion, lifting, repetitive motion, sitting, squatting, standing, stairs, walking and weightbearing.Alleviating Factors: Medications, Other: ___.Effect of Movement on Symptoms: cannot do.Lying makes symptoms better.Rising from sitting makes symptoms worse.Sitting makes symptoms worse.Standing makes symptoms worse.Rising from supine to sitting makes symptoms worse.Walking makes symptoms worse.Weather makes symptoms worse.Pushing motion makes symptoms worse. cannot do.Pulling motion makes symptoms worse. cannot do.Lifting: Worse. cannot do.Psychosocial Factors vs Last Visit:Physical Functioning: Worse.Family Relationships: Same.Mood: Worse.Sleep Patterns: Worse.Overall Functioning: Worse.Self Management Tools: patient is resting with positive response, patient is using ice compresses but is not getting relief, patient is using self massage with positive response, patient is using mindfulness with positive response and patient is using relaxation with positive response.Patient is a new patient who presents today with her sister. She is a 66-year-old female. She has lower back pain with left radiating leg pain that goes all the way down to her ankle. She states that her leg is also weak. She rates it a 9/10. Patient states that her pain used to be different and she had previous injections that helped her. Upon reviewing records we were able to find through the [employer] system she had some sacroiliac joint injection but she states that this pain is different now. She has left leg pain and left leg weakness. She rates it a 9/10. She has tried Medrol and Advil without relief. She is not able to take Tylenol due to cirrhosis. Patient states that she did have an x-ray as well as a CT or an MRI scan. She is not sure exactly which one but she states that she went into a tube. She states that previous medication given to her by her orthopedic surgeon opiates did not help. -[facility] Work Phone: 10-16-2021 History of Present illness Narrative Agree with CC as documented per REY. Janelle 66-year-old female presenting today for follow-up of left knee pain. Patient states no relief with cortisone injection at last visit approximately 2 weeks ago. Patient complains of pain to the left knee extending up into the inner thigh. She states it was very swollen yesterday, resolved today. She is unable to identify any aggravating or alleviating factors. She states, it so bad I cannot stand it. She is unable to take Tylenol due to her past medical history and she ran out of ibuprofen 2 days ago so she has not been taking anything for symptom control. Patient continues to deny any injury or aggravating factors. She states she is attempting her home exercises as she can tolerate, she does not not want to pursue PT due to the pain at this time. She did go to the ED for visit on 09/22/2021 for elevated blood sugars and the left knee pain. Patient has not followed up with her PCP. Her blood sugars have been running high, patient attributes to her pain level. [facility] Work Phone: 09-29-2021 Chief complaint Narrative - Reported NPV here for evaluation of lt knee pain that radiates up into her thigh and down her lower leg into her lt foot rates the pain 9/10 and has issues it swelling, and walking due to the pain and has fallen, she denies any injury. the pain started 2 and a half months ago she went to the ER and had an Xray and Veinous US of lt leg all were normal, she saw Ortho they referred her here. She refuses to do PT, she tried Medrol dose pack did not help, she takes Advil daily cannot take Tylenol due to Cirrhoses of the liver she thinks she has fatty liver that caused it and now has a kidney issues she will be seeing a specialist for this in the future.Screenings BMI n/a due to age, Depression negative, Smoking positive education provided, ORT score 1 [facility] Work Phone: 09-27-2021 History of Present illness Narrative Agree with CC as documented per REY. Janelle 66-year-old female presenting today for follow-up of left knee pain. Patient states no relief with cortisone injection at last visit approximately 2 weeks ago. Patient complains of pain to the left knee extending up into the inner thigh. She states it was very swollen yesterday, resolved today. She is unable to identify any aggravating or alleviating factors. She states, it so bad I cannot stand it. She is unable to take Tylenol due to her past medical history and she ran out of ibuprofen 2 days ago so she has not been taking anything for symptom control. Patient continues to deny any injury or aggravating factors. She states she is attempting her home exercises as she can tolerate, she does not not want to pursue PT due to the pain at this time. She did go to the ED for visit on 09/22/2021 for elevated blood sugars and the left knee pain. Patient has not followed up with her PCP. Her blood sugars have been running high, patient attributes to her pain level. [facility] Work Phone: 09-20-2021 History of Present illness Narrative Agree with CC as documented per REY. Janelle 66-year-old female presenting today for follow-up of left knee pain. Patient states no relief with cortisone injection at last visit approximately 2 weeks ago. Patient complains of pain to the left knee extending up into the inner thigh. She states it was very swollen yesterday, resolved today. She is unable to identify any aggravating or alleviating factors. She states, it so bad I cannot stand it. She is unable to take Tylenol due to her past medical history and she ran out of ibuprofen 2 days ago so she has not been taking anything for symptom control. Patient continues to deny any injury or aggravating factors. She states she is attempting her home exercises as she can tolerate, she does not not want to pursue PT due to the pain at this time. She did go to the ED for visit on 09/22/2021 for elevated blood sugars and the left knee pain. Patient has not followed up with her PCP. Her blood sugars have been running high, patient attributes to her pain level. [facility] Work Phone: 09-17-2021 Chief complaint Narrative - Reported Est patient) returning for re-evaluation of left knee pain as she was previously seen in office on 09/17/2021 in which a corticosteroid injection was administered into the left knee. She states the injection provided no symptomatic relief. She states he knee pain is worse at this time and that she had swelling of the knee post-injection. [facility] [place][note 2] Work Phone: 09-17-2021 Chief complaint Narrative - Reported Est patient) returning for re-evaluation of left knee pain as she was previously seen in office on 09/17/2021 in which a corticosteroid injection was administered into the left knee. She states the injection provided no symptomatic relief. She states he knee pain is worse at this time and that she had swelling of the knee post-injection. [facility] [place][note 2] Work Phone: 09-17-2021 Chief complaint Narrative - Reported Est patient) returning for re-evaluation of left knee pain as she was previously seen in office on 09/17/2021 in which a corticosteroid injection was administered into the left knee. She states the injection provided no symptomatic relief. She states he knee pain is worse at this time and that she had swelling of the knee post-injection. [facility] Work Phone: 09-17-2021 Chief complaint Narrative - Reported Est patient) returning for re-evaluation of left knee pain as she was previously seen in office on 09/17/2021 in which a corticosteroid injection was administered into the left knee. She states the injection provided no symptomatic relief. She states he knee pain is worse at this time and that she had swelling of the knee post-injection. [facility] Work Phone: 09-17-2021 Chief complaint Narrative - Reported Est patient) returning for re-evaluation of left knee pain as she was previously seen in office on 09/17/2021 in which a corticosteroid injection was administered into the left knee. She states the injection provided no symptomatic relief. She states he knee pain is worse at this time and that she had swelling of the knee post-injection. [facility] Work Phone: 09-16-2021 History of Present illness Narrative Agree with CC as documented per REY. Janelle 66-year-old female presenting today for follow-up of left knee pain. Patient states no relief with cortisone injection at last visit approximately 2 weeks ago. Patient complains of pain to the left knee extending up into the inner thigh. She states it was very swollen yesterday, resolved today. She is unable to identify any aggravating or alleviating factors. She states, it so bad I cannot stand it. She is unable to take Tylenol due to her past medical history and she ran out of ibuprofen 2 days ago so she has not been taking anything for symptom control. Patient continues to deny any injury or aggravating factors. She states she is attempting her home exercises as she can tolerate, she does not not want to pursue PT due to the pain at this time. She did go to the ED for visit on 09/22/2021 for elevated blood sugars and the left knee pain. Patient has not followed up with her PCP. Her blood sugars have been running high, patient attributes to her pain level. [facility] 300 Work Phone: 09-12-2021 Chief complaint Narrative - Reported NEW) Referral from ED for further evaluation and treatment of left knee pain. Onset: 3-4 weeks. She denies any injury or recent treatments for the left knee pain. She denies any surgical history of the left knee. She is able to ambulate unassisted. She denies any instability. She states the pain may be quite severe at times. She reports a history of arthritis. She did have an XR series of the left knee performed. [facility] 300 Work Phone: 09-11-2021 Chief complaint Narrative - Reported NEW) Referral from ED for further evaluation and treatment of left knee pain. Onset: 3-4 weeks. She denies any injury or recent treatments for the left knee pain. She denies any surgical history of the left knee. She is able to ambulate unassisted. She denies any instability. She states the pain may be quite severe at times. She reports a history of arthritis. She did have an XR series of the left knee performed. [facility] 300 Work Phone: 08-22-2021 History of Present illness Narrative Agree with CC as documented per REY. Janelle is a 66-year-old female presenting with left knee pain for 3 weeks. She denies any type of injury and states it is so bad that she is unable to sleep. She states her pain is severe. She sought ED evaluation approximately 3 weeks ago, was given 12 tablets of oxycodone/APAP that helped some with the pain, she took them approximately every 2-3 hours and ran out. She takes naproxen approximately every 4-6 hours. She is unable to take Tylenol. Patient describes her pain as a popping sensation, however denies actual popping, grinding or catching. Patient states nothing makes her pain worse or better at this time. She states she does get some swelling at times. I attempted to clarify if she has gotten previous cortisone injections in her knee. She noted that on the intake that she has gotten steroid injections before as well as shots listed under prior treatment. However she states she last got steroid injections in her back about 4 months ago at [facility] which did help. She is interested in pursuing a cortisone injection to her knee today. Patient states she was given an Mt wrap at the ED visit, she is unable to tolerate the wrap stating it makes her pain worse. Is any redness, heat from the knee, fever or chills. No injury. [facility] 300 Work Phone: 01-08-2021 Miscellaneous Notes JANELLE PICKETT [facility] [id number] 1955 DATE 01/08/2021 OPERATIVE REPORT SURGEON BOB HUNT MD PREOPERATIVE DIAGNOSIS Left sacroiliac joint dysfunction. POSTOPERATIVE DIAGNOSIS Left sacroiliac joint dysfunction. PROCEDURE Fluoroscopic-directed left sacroiliac joint injection. ANESTHESIA Local. INDICATIONS Janelle Pickett is a 65-year-old female with known degenerative spondylosis as well as left sacroiliac joint dysfunction who has left buttock pain and left proximal lower extremity pain and numbness. She responded positively to a left sacroiliac joint injection on November 20, 2020, now presents for a second injection, having had experience of recurrence of her pain over the last few weeks. PROCEDURE IN DETAIL The procedure was performed in the single plane angiography suite. The patient was positioned prone on the angiography table. An appropriate time-out was performed by Neurosurgery, photo technologist and nurses and all agreed to this patient's identity and planned procedure. The left sacroiliac joint was divided into a superior pole, midpoint, and inferior pole. The skin was marked, prepped, and draped in usual sterile fashion. 6 cc of 1% lidocaine plain was used for local infiltration purposes at the 3 injection sites. Next, 80 mg of Depo- Medrol and 2 cc of vehicle was mixed with 4 cc of 0.5% Marcaine plain to achieve 6 cc of injectate. Under fluoroscopic intermittent guidance, a 22-gauge spinal needle was passed first into the inferior pole, then the midpoint, then the superior pole of the left sacroiliac joint. After confirming negative aspiration of blood, 2 cc of injectate was administered. Sterile dressing was applied. The patient moved off the table under her own power and was transferred to short-term care in stable condition. BOB HUNT MD D 01/08/2021 09:49 [id number] 01/08/2021 10:41 [facility] Brief Post Operative Note Patient Name: Janelle Pickett : 1955 (65 y.o.) Date of Service: 01/08/2021 CSN: [id number] Procedure(s): Left SI joint injection Pre-Operative Diagnoses: * Left SI joint dysfunction Post-Operative Diagnoses: * Sacroiliac joint dysfunction of left side [M53.3] Surgeon(s) and Role: * Bob Hunt MD - Primary No anesthesia staff entered. Textile Broker: Randall Ventura RN Scrub Person: Gail Tavares, TECHNOLOGIST Operative findings: Widened left SI joint* Intra and immediate post-operative complications: none* Type of anesthesia used: *local Estimated blood loss: Minimal Estimated urine output: Refer to surgical log Specimen(s): * No specimens in log * Implant(s): * No implants in log * Drain(s): * No LDAs found * Wound(s): Wound (Inpatient and Home Care Only) 11/20/20 Back (Active) Wound (Inpatient and Home Care Only) 01/08/21 Back Left (Active) Dressing Status Clean; Dry; Intact 01/08/21945 Wound Bed Characteristics Clean; Intact; Dry; Approximated 01/08/21945 Drainage Amount None 01/08/21945 Odor None 01/08/21945 Primary/Secondary Dressing Gauze pad; Transparent film 01/08/21945 Compression Dressing Not Applicable 01/08/2146 Bob Hunt MD 01/08/2021 9:49 AM documented in this encounter [facility] 01-08-2021 Hospital course Narrative Images from the original note were not included. DISCHARGE SUMMARY Patient: Janelle Pickett Date of : 1955 Site: [facility] Provider: Ida Ely CNP Admit Date: 01/08/2021 Discharge Date/Time: 01/08/21 Morning Disposition: Home Clinical Summary Hospital Course: Janelle Pickett is a 65 y.o. female patient of Ida Ely CNP with a history of left sacroiliac joint dysfunction lumbar spondylosis. She responded positively to a left sacroiliac joint injection on 11/20/2020 but her pain is now recurred now she presents for second injection. On 01/09/2020 when she went underwent uneventful left sacroiliac joint injection under fluoroscopic guidance. She tolerated procedure well. She was discharged once discharge criteria were met. Discharge Diagnoses: Diabetes mellitus. Sacroiliac joint dysfunction. Obesity. Asthma. Surgeries: 01/08/21 Left SI joint injection Consults: No orders of the defined types were placed in this encounter. Allergies: Gemfibrozil Discharge Diet: Resume home diet Condition: Good Discharge Medications: Discharge Medications Medications To Continue Details Advair HFA 230-21 mcg/actuation inhaler Generic drug: fluticasone propion-salmeteroL Inhale 1 (one) puff 2 (two) times a day Rinse mouth after each use . Quantity: 60 puff ALPRAZolam 0.25 MG tablet Commonly known as: XANAX Take one tablet 30 minutes prior to appt then take one tablet 15 minutes prior to MRI. . Quantity: 1 tablet blood sugar diagnostic strips by Miscellaneous route 4 (four) times a day . Quantity: 200 each blood-glucose meter Misc by Miscellaneous route Test blood sugar daily . Quantity: 1 each cilostazoL 50 MG tablet Commonly known as: PLETAL Take 1 (one) tablet (50 mg total) by mouth 2 (two) times a day . Quantity: 180 tablet citalopram 40 MG tablet Commonly known as: CELEXA Take 1 (one) tablet (40 mg total) by mouth daily . Quantity: 90 tablet cyclobenzaprine 10 MG tablet Commonly known as: FLEXERIL Take 1 (one) tablet (10 mg total) by mouth 3 (three) times a day as needed for muscle spasms Start: 10/27/20. Quantity: 8 tablet Flublok Quad [id number] (PF) syringe Generic drug: flu vaccine qv 2018 (18yr up)(PF) gabapentin 400 MG capsule Commonly known as: NEURONTIN Take 1 (one) capsule (400 mg total) by mouth 3 (three) times a day . Quantity: 90 capsule ibuprofen 600 MG tablet Commonly known as: ADVIL,MOTRIN Take 1 (one) tablet (600 mg total) by mouth every 6 (six) hours as needed for pain . Quantity: 20 tablet * insulin syringe-needle U-100 1 mL 30 gauge x 5/16 Syrg USE ONE SYRINGE THREE TIMES A DAY . Quantity: 270 each * insulin syringes (disposable) 1 mL Syrg 1 Syringe by Miscellaneous route 3 (three) times a day . Quantity: 100 each ipratropium-albuteroL 0.5-2.5 mg/3 ml nebulizer Commonly known as: DUO-NEB Take 3 mL by nebulization every 6 (six) hours as needed for wheezing . Quantity: 90 mL lancets 28 gauge Misc Commonly known as: freestyle Test qid . Quantity: 200 each Lantus Solostar U-100 Insulin 100 unit/mL (3 mL) Inpn Generic drug: insulin glargine Inject 60 (sixty) Units under the skin nightly Discontinue 40 units . Quantity: 54 mL loratadine 10 mg tablet Commonly known as: CLARITIN Take 1 (one) tablet (10 mg total) by mouth daily . Quantity: 90 tablet magnesium oxide 400 mg (241.3 mg magnesium) tablet Commonly known as: MagOx Take 1 (one) tablet (400 mg total) by mouth daily . Quantity: 90 tablet montelukast 10 mg tablet Commonly known as: SINGULAIR Take 1 (one) tablet (10 mg total) by mouth daily . Quantity: 90 tablet omeprazole 40 MG capsule Commonly known as: PRILOSEC Take 1 (one) capsule (40 mg total) by mouth daily Before meals . Quantity: 90 capsule ondansetron 4 MG disintegrating tablet Commonly known as: Zofran ODT Dissolve 1 (one) tablet (4 mg total) on top of tongue every 8 (eight) hours as needed for nausea . Quantity: 10 tablet Ozempic 1 mg/dose (2 mg/1.5 mL) Pen Generic drug: semaglutide Inject 1 (one) mg under the skin every 7 days Give 3 mo supply . Quantity: 18 mL pen needle, diabetic 31 gauge x 5/16 Ndle 1 Pen Needle by Miscellaneous route 4 (four) times a day . Quantity: 120 each potassium chloride 10 MEQ CR tablet Take 1 (one) tablet (10 mEq total) by mouth 2 (two) times a day . Quantity: 180 tablet pravastatin 80 MG tablet Commonly known as: PRAVACHOL Take 1 (one) tablet (80 mg total) by mouth nightly . Quantity: 90 tablet sertraline 50 MG tablet Commonly known as: ZOLOFT Take 1 (one) tablet (50 mg total) by mouth daily . Quantity: 30 tablet Shingrix (PF) 50 mcg/0.5 mL injection Generic drug: varicella-zoster gE (diluent + powder) Spiriva with HandiHaler 18 mcg inhalation capsule Generic drug: tiotropium Place 1 (one) capsule (18 mcg total) into inhaler and inhale daily . Quantity: 90 capsule traZODone 100 MG tablet Commonly known as: DESYREL Take 1 (one) tablet (100 mg total) by mouth nightly . Quantity: 90 tablet * There are duplicate medications prescribed to the patient Physician(s) Family Provider: Ida Ely CNP, Address: [address] [place], [place] [id number] Follow Up: No follow-up provider specified. Additional Information: *Follow-up via phone with neurosurgery clinic in 3 days report of effect of injections. Patient instructions, including activity, were given to the patient/family at discharge. Please see the After Visit Summary in the electronic medical record for details. Time spent on discharge: < 30 minutes Completed by: Bob Hunt MD on 01/08/21, 9:51 AM documented in this encounter [facility] 01-08-2021 History and physical note Impression: Janelle Pickett is a 65 y.o. year old female with left SI joint dysfunction and evidence of facet arthropathy and degenerative disc disease seen on CT abdomen/pelvis. She did have good results from a left SI joint injection in November 20, 2020 but now has a recurrence of pain. Plan: - Recommend left sacroiliac joint injection ? Discussed risks and benefits of the procedure with the patient, which include elevated blood sugars, bleeding, infection, reaction to medication, ineffectiveness of medication - patient verbalized understanding and recognizes that she will need to be vigilant with her sugars after the injection and her PCP should be kept up to date regarding the injection - In the interim, pain management strategies per PCP - Will plan for follow-up as needed after the injection - Nursing notes reviewed Chief Complaint: Consult (Patient describes the pain as a real bad ache and it goes clear across the low back, she notes the pain is worse L side. Patients said the pain goes into both hips and buttocks and down to the knee on the L side. SHe states the pain medication her PCP gives her are not helping her.) HPI: Janelle Pickett is a 65 y.o. year old female with left sided low back pain, who presents for initial evaluation. History is obtained from the patient and chart review. The patient states that 3 weeks ago, she had an abrupt onset of left sided low back pain. She denies any inciting events or other traumas. She states that it can travel across to the right, but typically remains isolated to the left SI joint region. She does describe and occasional catch on the right. She states that the pain occasionally radiates down the anterior and posterior aspect of the left lower extremity, stopping at the knee. She states that the pain is worse when sitting or lying on her back and left side. She notes that the pain eases slightly when ambulating. She describes the pain as a constant ache. She states that she does not have any numbness or tingling. She has attempted walking, ice, heat, Aleve, and narcotics (per PCP) without relief of her symptoms. The patient states that she does not have any changes in her bowel/bladder function. She admits to a history of COPD, DM2 with insulin use, osteoporosis, hypertension. Her current pain syndrome is in the left buttock area and the left posterior lateral thigh also associated with numbness in the posterior lateral thigh stopping at the knee. She denies having had fallen. Review of Systems: Review of Systems Constitutional: Negative for chills, fatigue and fever. HENT: Positive for rhinorrhea. Negative for congestion, hearing loss and sore throat. No COVID 19 infection. Eyes: Positive for visual disturbance (blurry vision, related to DM). Negative for pain. Respiratory: Positive for shortness of breath (intermittent, hx of COPD). Negative for cough. Cardiovascular: Negative for chest pain and leg swelling. Gastrointestinal: Negative for abdominal pain, constipation, diarrhea, nausea and vomiting. Endocrine: Negative. Genitourinary: Negative for decreased urine volume, dysuria, hematuria and urgency. Musculoskeletal: Positive for arthralgias, back pain and gait problem. Negative for neck pain and neck stiffness. Skin: Negative for rash and wound. Allergic/Immunologic: Negative. Neurological: Positive for weakness. Negative for dizziness, numbness and headaches. Hematological: Negative for adenopathy. Does not bruise/bleed easily. Psychiatric/Behavioral: Negative for dysphoric mood. The patient is not nervous/anxious. Past medical history significant for obesity, hypercholesterolemia. Diabetes mellitus. Osteoporosis. Family history is negative for neuropathy. Allergy to gemfibrozil. Medications unit JUN. Physical Examination: PACU Vitals 11/07/20 0822 BP: 148/82 Pulse: 84 Resp: 16 SpO2: 98% PainSc: 10-Worst pain ever PainLoc: Back General: Obese, well-appearing 65 y.o. female, in NAD HENT: Hearing grossly intact to voice Neuro: Awake, alert, speech fluent Neck: Supple, no midline cervical spine tenderness Chest: Chest rise symmetric, respirations non-labored Cardiac: No pedal edema, no posterior calf tenderness Back: - No midline thoracic spine tenderness; no midline lumbar spine tenderness; no paraspinal thoracic spine tenderness; no paraspinal lumbar spine tenderness - No right SI joint tenderness; positive for severe left SI joint tenderness, Dontrell test +. Skin: Warm and dry MSK: - No clonus on right; no clonus on left - Patellar Tendon Reflexes: 0 on right, 0 on left - GURJIT recreates left SI joint pain - Positive compression and distraction creating left SI joint pain Positive Dontrell test at left sacroiliac joint. Muscle Group Right Left Hip Flexion 5 3+, limited by left SI joint pain Knee Extension 5 5 Knee Flexion 5 5 Dorsiflexion 5 5 Plantar Flexion 5 5 Sensation intact to light touch to bilateral lower extremities without areas of diminished sensation. Ambulates with shortened stride without antalgic or broad based gait. Radiologic/Laboratory Studies Reviewed: The following studies have been reviewed on a computerized device and my interpretation is as follows: CT Abdomen/Pelvis Independent review of the spine components of this imaging reveals rotary scoliosis of the thoracolumbar spine without evidence of high grade central or foraminal narrowing. There is mild disc bulging noted in the lumbar spine, which does cause mild to moderate central stenosis. There is evidence of facet arthropathy throughout the lumbar spine. There is evidence of SI joint degeneration also seen on the imaging. See full radiologic interpretation below. Radiologic interpretation is as follows: There is minimal atelectatic change in the visualized lung bases. Extensive surface nodularity of the liver is again noted. There is hepatomegaly. There are no obvious masses. There is splenomegaly again visualized. There are no obvious splenic masses. The pancreas is grossly normal in configuration. No adjacent inflammatory changes. The gallbladder is surgically absent. The left adrenal gland appears normal. A right adrenal gland adenoma is again noted. There are no stones in the kidneys. There is no hydronephrosis. There is a small calcification in the mid left kidney which is likely vascular. There are no stones in the ureters. There are no stones in the bladder. There is no significant bladder wall thickening. The uterus again appears small but lobular. There may be uterine fibroid disease. There is no free air or free fluid. There are no abscesses. There is no significant lymphadenopathy. There is no evidence of intestinal obstruction. There is colonic diverticulosis without evidence of acute diverticulitis. The abdominal aorta is normal in caliber. There is atherosclerotic disease. No acute or aggressive appearing bony lesions. IMPRESSION: 1. There are no acute abnormalities. 2. Cirrhotic morphology of the liver is again noted. 3. There is hepatosplenomegaly. 4. The uterus is small but appears lobular. This may be secondary to uterine fibroid disease. 5. Colonic diverticulosis without evidence of acute diverticulitis. XR Lumbar Spine Radiologic interpretation is as follows: Three views of the lumbar spine. No acute fracture. Normal lumbar lordosis. No listhesis. No abnormal curvature. Vertebral body heights are normal. Mild disc space narrowing L3-4 and L4-5 levels with mild endplate degenerative changes. Moderate facet arthropathy involving the L3-4 through L5-S1 levels. Partial visualization of mild osteoarthritic changes of the hips. Extensive atherosclerotic calcification of the infrarenal abdominal aorta and iliac arteries. IMPRESSION: No acute osseous abnormality. Gddm-eg-mchlyegv multilevel spondylosis of the lower lumbar spine. Bob Hunt, Ph.D., M.D. INTERVAL HISTORY AND PHYSICAL Patient Name: Janelle Pickett Admit Date: [id number] MR #: [id number] : 1955 The H&P has been reviewed and the patient has been examined. I concur with the findings of the H&P. There are no significant changes. It is appropriate to proceed with the planned procedure. Bob Hunt MD 01/08/2021 9:37 AM documented in this encounter [facility] 11-20-2020 Miscellaneous Notes Discharge instructions given. Verbalized understanding. Dressing to mid lower back dry & intact. Discharged via w/c to main lobby. Brief Post Operative Note Patient Name: Janelle Pickett : 1955 (65 y.o.) Date of Service: 11/20/2020 CSN: [id number] Procedure(s): Left Sacroiliac Joint Injection Pre-Operative Diagnoses: * Left SI joint dysfunction Post-Operative Diagnoses: Same Surgeon(s) and Role: * Bob Hunt MD - Primary No anesthesia staff entered. Scrub Person: Vahe Freire, TECHNOLOGIST Invasive Nurse: Cedric Tejada RN Operative findings: No fracture* Intra and immediate post-operative complications: none* Type of anesthesia used: *local Estimated blood loss: Minimal Estimated urine output: Refer to surgical log Specimen(s): * No specimens in log * Implant(s): * No implants in log * Drain(s): * No LDAs found * Wound(s): * No LDAs found * Bob Hunt MD 11/20/2020 8:58 AM documented in this encounter [facility] 11-20-2020 Hospital course Narrative Images from the original note were not included. DISCHARGE SUMMARY Patient: Janelle Pickett Date of : 1955 Site: [facility] Provider: Ida Ely CNP Admit Date: 11/20/2020 Discharge Date/Time: 11/20/20 Morning Disposition: Home Clinical Summary Hospital Course: Janelle Pickett is a 65 y.o. female patient of Ida Ely CNP with a history of lumbar spinal stenosis, spondylosis, and severe left sacroiliac joint pain. On 11/21/2019 when she underwent uneventful fluoroscopically left sacroiliac joint injection. She was recovered in PACU and was discharged home in good condition.* Discharge Diagnoses: Left sacroiliac joint dysfunction. Lumbar spondylosis and stenosis. Diabetes mellitus. COPD. GE reflux disease. Surgeries: 11/20/20 Left Sacroiliac Joint Injection Consults: No orders of the defined types were placed in this encounter. Allergies: Gemfibrozil Discharge Diet: Resume home diet Condition: Good Discharge Medications: Discharge Medications Medications To Continue Details Advair HFA 230-21 mcg/actuation inhaler Generic drug: fluticasone propion-salmeteroL Inhale 1 (one) puff 2 (two) times a day Rinse mouth after each use . Quantity: 60 puff ALPRAZolam 0.25 MG tablet Commonly known as: XANAX Take one tablet 30 minutes prior to appt then take one tablet 15 minutes prior to MRI. . Quantity: 1 tablet blood sugar diagnostic strips by Miscellaneous route 4 (four) times a day . Quantity: 200 each blood-glucose meter Misc by Miscellaneous route Test blood sugar daily . Quantity: 1 each cilostazoL 50 MG tablet Commonly known as: PLETAL Take 1 (one) tablet (50 mg total) by mouth 2 (two) times a day . Quantity: 180 tablet citalopram 40 MG tablet Commonly known as: CELEXA Take 1 (one) tablet (40 mg total) by mouth daily . Quantity: 90 tablet cyclobenzaprine 10 MG tablet Commonly known as: FLEXERIL Take 1 (one) tablet (10 mg total) by mouth 3 (three) times a day as needed for muscle spasms Start: 10/27/20. Quantity: 8 tablet diclofenac sodium 1 % Gel Commonly known as: Voltaren Apply 2 (two) g topically 4 (four) times a day as needed (Pain) . Quantity: 240 g Flublok Quad 7253-2995 (PF) syringe Generic drug: flu vaccine qv 2018 (18yr up)(PF) gabapentin 400 MG capsule Commonly known as: NEURONTIN Take 1 (one) capsule (400 mg total) by mouth 3 (three) times a day . Quantity: 90 capsule ibuprofen 600 MG tablet Commonly known as: ADVIL,MOTRIN Take 1 (one) tablet (600 mg total) by mouth every 6 (six) hours as needed for pain . Quantity: 20 tablet * insulin syringe-needle U-100 1 mL 30 gauge x 5/16 Syrg USE ONE SYRINGE THREE TIMES A DAY . Quantity: 270 each * insulin syringes (disposable) 1 mL Syrg 1 Syringe by Miscellaneous route 3 (three) times a day . Quantity: 100 each ipratropium-albuteroL 0.5-2.5 mg/3 ml nebulizer Commonly known as: DUO-NEB Take 3 mL by nebulization every 6 (six) hours as needed for wheezing . Quantity: 90 mL lancets 28 gauge Misc Commonly known as: freestyle Test qid . Quantity: 200 each Lantus Solostar U-100 Insulin 100 unit/mL (3 mL) Inpn Generic drug: insulin glargine Inject 60 (sixty) Units under the skin nightly Discontinue 40 units . Quantity: 54 mL loratadine 10 mg tablet Commonly known as: CLARITIN Take 1 (one) tablet (10 mg total) by mouth daily . Quantity: 90 tablet magnesium oxide 400 mg (241.3 mg magnesium) tablet Commonly known as: MagOx Take 1 (one) tablet (400 mg total) by mouth daily . Quantity: 90 tablet montelukast 10 mg tablet Commonly known as: SINGULAIR Take 1 (one) tablet (10 mg total) by mouth daily . Quantity: 90 tablet omeprazole 40 MG capsule Commonly known as: PRILOSEC Take 1 (one) capsule (40 mg total) by mouth daily Before meals . Quantity: 90 capsule ondansetron 4 MG disintegrating tablet Commonly known as: Zofran ODT Dissolve 1 (one) tablet (4 mg total) on top of tongue every 8 (eight) hours as needed for nausea . Quantity: 10 tablet Ozempic 1 mg/dose (2 mg/1.5 mL) Pen Generic drug: semaglutide Inject 1 (one) mg under the skin every 7 days Give 3 mo supply . Quantity: 18 mL pen needle, diabetic 31 gauge x 5/16 Ndle 1 Pen Needle by Miscellaneous route 4 (four) times a day . Quantity: 120 each potassium chloride 10 MEQ CR tablet Take 1 (one) tablet (10 mEq total) by mouth 2 (two) times a day . Quantity: 180 tablet pravastatin 80 MG tablet Commonly known as: PRAVACHOL Take 1 (one) tablet (80 mg total) by mouth nightly . Quantity: 90 tablet sertraline 50 MG tablet Commonly known as: ZOLOFT Take 1 (one) tablet (50 mg total) by mouth daily . Quantity: 30 tablet Shingrix (PF) 50 mcg/0.5 mL injection Generic drug: varicella-zoster gE (diluent + powder) Spiriva with HandiHaler 18 mcg inhalation capsule Generic drug: tiotropium Place 1 (one) capsule (18 mcg total) into inhaler and inhale daily . Quantity: 90 capsule traMADoL 50 mg tablet Commonly known as: ULTRAM Take 1 (one) tablet (50 mg total) by mouth every 6 (six) hours as needed for pain (Days supply per fill: 8) . Quantity: 18 tablet traZODone 100 MG tablet Commonly known as: DESYREL Take 1 (one) tablet (100 mg total) by mouth nightly . Quantity: 90 tablet * There are duplicate medications prescribed to the patient Physician(s) Family Provider: Ida Ely CNP, Address: [address] [place] [address] Follow Up: No follow-up provider specified. Additional Information: Call neurosurgery clinic* Patient instructions, including activity, were given to the patient/family at discharge. Please see the After Visit Summary in the electronic medical record for details. Time spent on discharge: < 30 minutes Completed by: Bob Hunt MD on 11/20/20, 9:04 AM documented in this encounter [facility] 11-20-2020 History and physical note Impression: Janelle Pickett is a 65 y.o. year old female with left SI joint dysfunction and evidence of facet arthropathy and degenerative disc disease seen on CT abdomen/pelvis. Plan: - Recommend left sacroiliac joint injection ? Discussed risks and benefits of the procedure with the patient, which include elevated blood sugars, bleeding, infection, reaction to medication, ineffectiveness of medication - patient verbalized understanding and recognizes that she will need to be vigilant with her sugars after the injection and her PCP should be kept up to date regarding the injection - In the interim, pain management strategies per PCP - Will plan for follow-up as needed after the injection - Nursing notes reviewed Chief Complaint: Consult (Patient describes the pain as a real bad ache and it goes clear across the low back, she notes the pain is worse L side. Patients said the pain goes into both hips and buttocks and down to the knee on the L side. SHe states the pain medication her PCP gives her are not helping her.) HPI: Janelle Pickett is a 65 y.o. year old female with left sided low back pain, who presents for initial evaluation. History is obtained from the patient and chart review. The patient states that 3 weeks ago, she had an abrupt onset of left sided low back pain. She denies any inciting events or other traumas. She states that it can travel across to the right, but typically remains isolated to the left SI joint region. She does describe and occasional catch on the right. She states that the pain occasionally radiates down the anterior and posterior aspect of the left lower extremity, stopping at the knee. She states that the pain is worse when sitting or lying on her back and left side. She notes that the pain eases slightly when ambulating. She describes the pain as a constant ache. She states that she does not have any numbness or tingling. She has attempted walking, ice, heat, Aleve, and narcotics (per PCP) without relief of her symptoms. The patient states that she does not have any changes in her bowel/bladder function. She admits to a history of COPD, DM2 with insulin use, osteoporosis, hypertension. Review of Systems: Review of Systems Constitutional: Negative for chills, fatigue and fever. HENT: Positive for rhinorrhea. Negative for congestion, hearing loss and sore throat. No COVID 19 infection. Eyes: Positive for visual disturbance (blurry vision, related to DM). Negative for pain. Respiratory: Positive for shortness of breath (intermittent, hx of COPD). Negative for cough. Cardiovascular: Negative for chest pain and leg swelling. Gastrointestinal: Negative for abdominal pain, constipation, diarrhea, nausea and vomiting. Endocrine: Negative. Genitourinary: Negative for decreased urine volume, dysuria, hematuria and urgency. Musculoskeletal: Positive for arthralgias, back pain and gait problem. Negative for neck pain and neck stiffness. Skin: Negative for rash and wound. Allergic/Immunologic: Negative. Neurological: Positive for weakness. Negative for dizziness, numbness and headaches. Hematological: Negative for adenopathy. Does not bruise/bleed easily. Psychiatric/Behavioral: Negative for dysphoric mood. The patient is not nervous/anxious. Physical Examination: PACU Vitals 11/07/20 0822 BP: 148/82 Pulse: 84 Resp: 16 SpO2: 98% PainSc: 10-Worst pain ever PainLoc: Back General: Obese, well-appearing 65 y.o. female, in NAD HENT: Hearing grossly intact to voice Neuro: Awake, alert, speech fluent Neck: Supple, no midline cervical spine tenderness Chest: Chest rise symmetric, respirations non-labored Cardiac: No pedal edema, no posterior calf tenderness Back: - No midline thoracic spine tenderness; no midline lumbar spine tenderness; no paraspinal thoracic spine tenderness; no paraspinal lumbar spine tenderness - No right SI joint tenderness; positive for severe left SI joint tenderness, Dontrell test +. Skin: Warm and dry MSK: - No clonus on right; no clonus on left - Patellar Tendon Reflexes: 0 on right, 0 on left - GURJIT recreates left SI joint pain - Positive compression and distraction creating left SI joint pain Muscle Group Right Left Hip Flexion 5 3+, limited by left SI joint pain Knee Extension 5 5 Knee Flexion 5 5 Dorsiflexion 5 5 Plantar Flexion 5 5 Sensation intact to light touch to bilateral lower extremities without areas of diminished sensation. Ambulates with shortened stride without antalgic or broad based gait. Radiologic/Laboratory Studies Reviewed: The following studies have been reviewed on a computerized device and my interpretation is as follows: CT Abdomen/Pelvis Independent review of the spine components of this imaging reveals rotary scoliosis of the thoracolumbar spine without evidence of high grade central or foraminal narrowing. There is mild disc bulging noted in the lumbar spine, which does cause mild to moderate central stenosis. There is evidence of facet arthropathy throughout the lumbar spine. There is evidence of SI joint degeneration also seen on the imaging. See full radiologic interpretation below. Radiologic interpretation is as follows: There is minimal atelectatic change in the visualized lung bases. Extensive surface nodularity of the liver is again noted. There is hepatomegaly. There are no obvious masses. There is splenomegaly again visualized. There are no obvious splenic masses. The pancreas is grossly normal in configuration. No adjacent inflammatory changes. The gallbladder is surgically absent. The left adrenal gland appears normal. A right adrenal gland adenoma is again noted. There are no stones in the kidneys. There is no hydronephrosis. There is a small calcification in the mid left kidney which is likely vascular. There are no stones in the ureters. There are no stones in the bladder. There is no significant bladder wall thickening. The uterus again appears small but lobular. There may be uterine fibroid disease. There is no free air or free fluid. There are no abscesses. There is no significant lymphadenopathy. There is no evidence of intestinal obstruction. There is colonic diverticulosis without evidence of acute diverticulitis. The abdominal aorta is normal in caliber. There is atherosclerotic disease. No acute or aggressive appearing bony lesions. IMPRESSION: 1. There are no acute abnormalities. 2. Cirrhotic morphology of the liver is again noted. 3. There is hepatosplenomegaly. 4. The uterus is small but appears lobular. This may be secondary to uterine fibroid disease. 5. Colonic diverticulosis without evidence of acute diverticulitis. XR Lumbar Spine Radiologic interpretation is as follows: Three views of the lumbar spine. No acute fracture. Normal lumbar lordosis. No listhesis. No abnormal curvature. Vertebral body heights are normal. Mild disc space narrowing L3-4 and L4-5 levels with mild endplate degenerative changes. Moderate facet arthropathy involving the L3-4 through L5-S1 levels. Partial visualization of mild osteoarthritic changes of the hips. Extensive atherosclerotic calcification of the infrarenal abdominal aorta and iliac arteries. IMPRESSION: No acute osseous abnormality. [id number] multilevel spondylosis of the lower lumbar spine. Bob Hunt, Ph.D., M.D. INTERVAL HISTORY AND PHYSICAL Patient Name: Janelle Pickett Admit Date: [id number] MR #: [id number] : 1955 The H&P has been reviewed and the patient has been examined. I concur with the findings of the H&P. There are no significant changes. It is appropriate to proceed with the planned procedure. Bob Hunt MD 11/20/2020 8:57 AM documented in this encounter [facility] 11-07-2020 History of Present illness Narrative [facility] Progress Note Patient Name: Janelle Pickett Date of Service: : 1955 Impression: Janelle Pickett is a 65 y.o. year old female with left SI joint dysfunction and evidence of facet arthropathy and degenerative disc disease seen on CT abdomen/pelvis. Plan: - Recommend left sacroiliac joint injection Discussed risks and benefits of the procedure with the patient, which include elevated blood sugars, bleeding, infection, reaction to medication, ineffectiveness of medication - patient verbalized understanding and recognizes that she will need to be vigilant with her sugars after the injection and her PCP should be kept up to date regarding the injection - In the interim, pain management strategies per PCP - Will plan for follow-up as needed after the injection - Nursing notes reviewed Ryley Angelo, MS, MPAP, PA-C [facility] Office: Chief Complaint: Consult (Patient describes the pain as a real bad ache and it goes clear across the low back, she notes the pain is worse L side. Patients said the pain goes into both hips and buttocks and down to the knee on the L side. SHe states the pain medication her PCP gives her are not helping her.) HPI: Janelle Pickett is a 65 y.o. year old female with left sided low back pain, who presents for initial evaluation. History is obtained from the patient and chart review. The patient states that 3 weeks ago, she had an abrupt onset of left sided low back pain. She denies any inciting events or other traumas. She states that it can travel across to the right, but typically remains isolated to the left SI joint region. She does describe and occasional catch on the right. She states that the pain occasionally radiates down the anterior and posterior aspect of the left lower extremity, stopping at the knee. She states that the pain is worse when sitting or lying on her back and left side. She notes that the pain eases slightly when ambulating. She describes the pain as a constant ache. She states that she does not have any numbness or tingling. She has attempted walking, ice, heat, Aleve, and narcotics (per PCP) without relief of her symptoms. The patient states that she does not have any changes in her bowel/bladder function. She admits to a history of COPD, DM2 with insulin use, osteoporosis, hypertension. Review of Systems: Review of Systems Constitutional: Negative for chills, fatigue and fever. HENT: Positive for rhinorrhea. Negative for congestion, hearing loss and sore throat. Eyes: Positive for visual disturbance (blurry vision, related to DM). Negative for pain. Respiratory: Positive for shortness of breath (intermittent, hx of COPD). Negative for cough. Cardiovascular: Negative for chest pain and leg swelling. Gastrointestinal: Negative for abdominal pain, constipation, diarrhea, nausea and vomiting. Endocrine: Negative. Genitourinary: Negative for decreased urine volume, dysuria, hematuria and urgency. Musculoskeletal: Positive for arthralgias, back pain and gait problem. Negative for neck pain and neck stiffness. Skin: Negative for rash and wound. Allergic/Immunologic: Negative. Neurological: Positive for weakness. Negative for dizziness, numbness and headaches. Hematological: Negative for adenopathy. Does not bruise/bleed easily. Psychiatric/Behavioral: Negative for dysphoric mood. The patient is not nervous/anxious. Physical Examination: PACU Vitals 11/07/20 0822 BP: 148/82 Pulse: 84 Resp: 16 SpO2: 98% PainSc: 10-Worst pain ever PainLoc: Back General: Obese, well-appearing 65 y.o. female, in NAD HENT: Hearing grossly intact to voice Neuro: Awake, alert, speech fluent Neck: Supple, no midline cervical spine tenderness Chest: Chest rise symmetric, respirations non-labored Cardiac: No pedal edema, no posterior calf tenderness Back: - No midline thoracic spine tenderness; no midline lumbar spine tenderness; no paraspinal thoracic spine tenderness; no paraspinal lumbar spine tenderness - No right SI joint tenderness; positive for severe left SI joint tenderness Skin: Warm and dry MSK: - No clonus on right; no clonus on left - Patellar Tendon Reflexes: 0 on right, 0 on left - GURJIT recreates left SI joint pain - Positive compression and distraction creating left SI joint pain Muscle Group Right Left Hip Flexion 5 3+, limited by left SI joint pain Knee Extension 5 5 Knee Flexion 5 5 Dorsiflexion 5 5 Plantar Flexion 5 5 Sensation intact to light touch to bilateral lower extremities without areas of diminished sensation. Ambulates with shortened stride without antalgic or broad based gait. Radiologic/Laboratory Studies Reviewed: The following studies have been reviewed on a computerized device and my interpretation is as follows: CT Abdomen/Pelvis Independent review of the spine components of this imaging reveals rotary scoliosis of the thoracolumbar spine without evidence of high grade central or foraminal narrowing. There is mild disc bulging noted in the lumbar spine, which does cause mild to moderate central stenosis. There is evidence of facet arthropathy throughout the lumbar spine. There is evidence of SI joint degeneration also seen on the imaging. See full radiologic interpretation below. Radiologic interpretation is as follows: There is minimal atelectatic change in the visualized lung bases. Extensive surface nodularity of the liver is again noted. There is hepatomegaly. There are no obvious masses. There is splenomegaly again visualized. There are no obvious splenic masses. The pancreas is grossly normal in configuration. No adjacent inflammatory changes. The gallbladder is surgically absent. The left adrenal gland appears normal. A right adrenal gland adenoma is again noted. There are no stones in the kidneys. There is no hydronephrosis. There is a small calcification in the mid left kidney which is likely vascular. There are no stones in the ureters. There are no stones in the bladder. There is no significant bladder wall thickening. The uterus again appears small but lobular. There may be uterine fibroid disease. There is no free air or free fluid. There are no abscesses. There is no significant lymphadenopathy. There is no evidence of intestinal obstruction. There is colonic diverticulosis without evidence of acute diverticulitis. The abdominal aorta is normal in caliber. There is atherosclerotic disease. No acute or aggressive appearing bony lesions. IMPRESSION: 1. There are no acute abnormalities. 2. Cirrhotic morphology of the liver is again noted. 3. There is hepatosplenomegaly. 4. The uterus is small but appears lobular. This may be secondary to uterine fibroid disease. 5. Colonic diverticulosis without evidence of acute diverticulitis. XR Lumbar Spine Radiologic interpretation is as follows: Three views of the lumbar spine. No acute fracture. Normal lumbar lordosis. No listhesis. No abnormal curvature. Vertebral body heights are normal. Mild disc space narrowing L3-4 and L4-5 levels with mild endplate degenerative changes. Moderate facet arthropathy involving the L3-4 through L5-S1 levels. Partial visualization of mild osteoarthritic changes of the hips. Extensive atherosclerotic calcification of the infrarenal abdominal aorta and iliac arteries. IMPRESSION: No acute osseous abnormality. [id number] multilevel spondylosis of the lower lumbar spine. documented in this encounter [facility] 10-22-2020 Emergency department Note Pt ambulates per self to lobby, pt is AxOx3 on discharge Critical from lab 466. Dr. Mora aware and Insulin ordered continuous pulse ox in place following narcotic administration. Pt denies getting into bed. Pt currently sitting in chair. Call light within reach PCP - Ida Ely, [place] Chief Complaint Patient presents with Hip Pain HPI, MDM, & ED COURSE Janelle is a 65-year-old female with history of insulin-dependent diabetes, hypertension, hyperlipidemia presenting today for chief complaint of left low back/flank area pain that radiates around to her left lower quadrant. She had described this as hip pain in triage, but when she points to the area of her discomfort it does not extend down near the actual hip and is all at or above the level of the iliac process. Pain has been ongoing for the last week despite taking ibuprofen 600 mg a few times a day. She notes that pain is better with standing position and worsens with lying down in seated position. She does not have any symptoms radiating down her leg, numbness, tingling. She notes urinary frequency without dysuria or hematuria. She denies any bowel or bladder incontinence. She denies melena, hematochezia, diarrhea or constipation. No nausea or vomiting. No febrile illness, cough or cold, chest pain, difficulty in breathing. Patient denies any fall, injury, or inciting event. Symptoms have been waxing and waning. She denies any history of similar symptoms. Patient is resting comfortably in no distress on initial assessment. She has difficulty localizing her pain initially and is tender from the left lower lumbar paraspinal musculature all the way around to her left lower quadrant. There is no skin rash or shingles lesion. After 2 mg of morphine, patient is feeling much better and now is tender only at the left lumbosacral junction. Straight leg raise is negative. Vitals are reassuring with mild hypertension with history of the same. She has normal distal neurovascular exam to the bilateral lower extremities. CT of the abdomen and pelvis was without acute abnormality. Urinalysis did not show any UTI. Patient was hyperglycemic here at 466 on arrival and notes that she had taken prednisone yesterday evening which she had leftover from a prior episode of bronchitis. Patient is not in DKA. Blood sugar is downtrending on recheck at 381. Patient is drinking a bottle of water here on arrival and throughout her visit. Repeat abdominal exam is soft and nontender. Patient's renal function is near baseline with mildly diminished sodium at 129. Patient was instructed in appropriate fluids for home and need for close follow-up. She expressed understanding of return precautions and was discharged in stable condition. IMPRESSION 1. Left flank pain 2. Hyperglycemia 3. Acute left-sided low back pain without sciatica Review of Systems All systems reviewed and negative except as mentioned in HPI or as noted below: Constitutional: Unintended weight loss NO Eyes: Eye Drainage NO ENT: New hearing loss NO Respiratory: Apnea spells NO CV: Lower extremity edema NO GI: Abdominal distension NO : Urinary Retention NO Heme: Unexplained bruising NO Endocrine: Heat intolerance NO Neuro: New tremor NO Past Medical History Past Medical History: Diagnosis Date COPD (chronic obstructive pulmonary disease) (HCC) Diabetes (HCC) High cholesterol Hypertension Leukopenia 1 WK AGO Past Surgical History Past Surgical History: Procedure Laterality Date HERNIA REPAIR Family History Family History Problem Relation Age of Onset Cancer Brother Social History Social History Tobacco Use Smoking status: Current Every Day Smoker Packs/day: 1.00 Types: Cigarettes Smokeless tobacco: Never Used Vaping Use Vaping Use: Never used Substance Use Topics Alcohol use: No Drug use: No Allergies Allergies Allergen Reactions Gemfibrozil STOMACH CRAMPING Medications Janelle Pickett Home Medication Instructions Prior to Surgery SANTY:[id number] Printed on:10/22/20 5805 Medication Information Take last dose on Take the morning of surgery Comment(s) ALPRAZolam (XANAX) 0.25 MG tablet Take one tablet 30 minutes prior to appt then take one tablet 15 minutes prior to MRI. . blood sugar diagnostic strips by Miscellaneous route 4 (four) times a day . cilostazoL (PLETAL) 50 MG tablet Take 1 (one) tablet (50 mg total) by mouth 2 (two) times a day . citalopram (CELEXA) 40 MG tablet Take 1 (one) tablet (40 mg total) by mouth daily . diclofenac sodium (Voltaren) 1 % Gel Apply 2 (two) g topically 4 (four) times a day as needed (Pain) . FLUBLOK QUAD [id number], PF, syringe fluticasone propion-salmeteroL (Advair HFA) 230-21 mcg/actuation inhaler Inhale 1 (one) puff 2 (two) times a day Rinse mouth after each use . gabapentin (NEURONTIN) 400 MG capsule Take 1 (one) capsule (400 mg total) by mouth 3 (three) times a day . ibuprofen (ADVIL,MOTRIN) 600 MG tablet Take 1 (one) tablet (600 mg total) by mouth every 6 (six) hours as needed for pain . insulin syringe-needle U-100 1 mL 30 gauge x 5/16 Syrg USE ONE SYRINGE THREE TIMES A DAY insulin syringes, disposable, 1 mL Syrg 1 Syringe by Miscellaneous route 3 (three) times a day. ipratropium-albuteroL (DUO-NEB) 0.5-2.5 mg/3 ml nebulizer Take 3 mL by nebulization every 6 (six) hours as needed for wheezing . lancets (freestyle) 28 gauge Misc Test qid . Lantus Solostar U-100 Insulin 100 unit/mL (3 mL) InPn Inject 60 (sixty) Units under the skin nightly Discontinue 40 units . loratadine (CLARITIN) 10 mg tablet Take 1 (one) tablet (10 mg total) by mouth daily . magnesium oxide (MagOx) 400 mg (241.3 mg magnesium) tablet Take 1 (one) tablet (400 mg total) by mouth daily . montelukast (SINGULAIR) 10 mg tablet Take 1 (one) tablet (10 mg total) by mouth daily . omeprazole (PRILOSEC) 40 MG capsule Take 1 (one) capsule (40 mg total) by mouth daily Before meals . ondansetron (Zofran ODT) 4 MG disintegrating tablet Dissolve 1 (one) tablet (4 mg total) on top of tongue every 8 (eight) hours as needed for nausea . oxyCODONE (ROXICODONE) 5 MG immediate release tablet Take 0.5 (one-half) tablet (2.5 mg total) by mouth every 6 (six) hours as needed for pain (Days supply per fill: 3) . pen needle, diabetic 31 gauge x 5/16 Ndle 1 Pen Needle by Miscellaneous route 4 (four) times a day . potassium chloride 10 MEQ CR tablet Take 1 (one) tablet (10 mEq total) by mouth 2 (two) times a day . pravastatin (PRAVACHOL) 80 MG tablet Take 1 (one) tablet (80 mg total) by mouth nightly . semaglutide (Ozempic) 1 mg/dose (2 mg/1.5 mL) Pen Inject 1 (one) mg under the skin every 7 days Give 3 mo supply . sertraline (ZOLOFT) 50 MG tablet Take 1 (one) tablet (50 mg total) by mouth daily . SHINGRIX, PF, 50 mcg/0.5 mL injection tiotropium (Spiriva with HandiHaler) [address] 1 (one) capsule (18 mcg total) into inhaler and inhale daily . traZODone (DESYREL) 100 MG tablet Take 1 (one) tablet (100 mg total) by mouth nightly . Physical Exam Initial Vital Signs BP (!) 159/74 Pulse 81 Temp 98 F (36.7 C) (Oral) Resp 18 Ht 5' 2 Wt 97.1 kg (214 lb) SpO2 93% BMI 39.14 kg/m Vital Signs During ED Visit (as charted by nursing) Patient Vitals for the past 24 hrs: BP Temp Temp src Pulse Resp SpO2 Height Weight 10/22/20 1257 (!) 159/74 81 18 93 % 10/22/20 1224 (!) 157/74 98 F (36.7 C) Oral 86 18 97 % 5' 2 97.1 kg (214 lb) Physical Exam Vitals and nursing note reviewed. Constitutional: General: She is not in acute distress. Appearance: She is well-developed. HENT: Head: Normocephalic and atraumatic. Eyes: Extraocular Movements: Extraocular movements intact. Pupils: Pupils are equal, round, and reactive to light. Cardiovascular: Rate and Rhythm: Normal rate and regular rhythm. Pulmonary: Effort: Pulmonary effort is normal. Breath sounds: Normal breath sounds. Abdominal: Palpations: Abdomen is soft. Tenderness: There is no abdominal tenderness. Musculoskeletal: Cervical back: Normal range of motion and neck supple. Comments: Patient has full painless range of motion of the hips bilaterally with negative straight leg raise bilaterally. No C, T, L-spine tenderness, step-off or deformity. On reassessment after analgesia, patient has localized tenderness to the left lumbosacral junction. No calf tenderness, skin discoloration, or edema to the bilateral lower extremities. Skin: General: Skin is warm and dry. Neurological: General: No focal deficit present. Mental Status: She is alert and oriented to person, place, and time. Comments: Normal strength and sensation to the bilateral lower extremities Psychiatric: Mood and Affect: Mood normal. Behavior: Behavior normal. Labs Reviewed BASIC METABOLIC PANEL - Abnormal; Notable for the following components: Result Value Sodium 129 (*) Chloride 96 (*) Glucose 466 (*) Creatinine 1.50 (*) eGFR 37 (*) All other components within normal limits Narrative: The eGFR should be used for monitoring renal function only and not for medication dosing. URINALYSIS - Abnormal; Notable for the following components: Protein, Urine 100 (*) Glucose, Urine >=500 (*) Blood, Urine Moderate (*) Bacteria, Urine Rare (*) Squamous Epithelial 5 (*) Budding Yeast, Urine Few (*) All other components within normal limits Narrative: Microscopic examination is performed on all urinalysis samples and only positive findings are reported. The test for blood on the chemical analytic portion of urinalysis may also be positive due to hemoglobinuria and myoglobinuria and if red blood cells are present they are quantified by microscopic examination. HEPATIC FUNCTION PANEL - Abnormal; Notable for the following components: Total Protein 8.3 (*) All other components within normal limits POC GLUCOSE - Abnormal; Notable for the following components: Glucose 461 (*) All other components within normal limits POC GLUCOSE - Abnormal; Notable for the following components: Glucose 381 (*) All other components within normal limits POC GLUCOSE - RALS - Abnormal; Notable for the following components: Glucose 461 (*) All other components within normal limits Narrative: Critical result acted upon time of test. Test performed at bedside. POC GLUCOSE - RALS - Abnormal; Notable for the following components: Glucose 381 (*) All other components within normal limits CBC WITH AUTO DIFFERENTIAL - Abnormal; Notable for the following components: Platelets 105 (*) Neutrophils Abs 7.34 (*) All other components within normal limits BETA-HYDROXYBUTYRATE - Normal POC VENOUS BLOOD GASES - RALS - Normal CBC AND DIFFERENTIAL Narrative: The following orders were created for panel order CBC w/ Diff. Procedure Abnormality Status --------- ------ CBC Auto Differential[[id number]] Abnormal Final result Please view results for these tests on the individual orders. OBTAIN VENOUS BLOOD GASES AND PERFORM Radiographic Imaging (if any) During ED Visit CT Abdomen Pelvis Without Contrast Final Result 1. There are no acute abnormalities. 2. Cirrhotic morphology of the liver is again noted. 3. There is hepatosplenomegaly. 4. The uterus is small but appears lobular. This may be secondary to uterine fibroid disease. 5. Colonic diverticulosis without evidence of acute diverticulitis. [employer] Workstation ID: [id number] Medications Ordered/Given During ED Visit Medications morphine injection 2 mg (2 mg Intravenous Given 10/22/20 1254) ondansetron (ZOFRAN) injection 4 mg (4 mg Intravenous Given 10/22/20 1254) insulin regular (HumuLIN R, NovoLIN R) injection 10 Units (10 Units Intravenous Given 10/22/20 1342) Procedures Yoshi Mora DO 10/22/20 1504 Pt c/o L hip pain that started approx 5 days ago worsening over the past 2 days. documented in this encounter [facility] 10-22-2020 Hospital Discharge instructions Yoshi Mora DO - 10/22/2020 As we discussed, you should follow-up with your primary care provider within the next few days. Please return to the emergency department for any new worsening symptoms such as fever, uncontrolled pain, numbness, weakness, difficulty controlling your bowel movements or urination, or any further concerns. Please avoid acetaminophen as previously recommended by your primary care provider. With your kidney dysfunction and age, oral anti-inflammatory drugs such as ibuprofen or naproxen should also be used extremely sparingly. The following attachments cannot be sent through Care Everywhere.Flank Pain (Salvadorean)Low Back Pain: General Info (Salvadorean)documented in this encounter [facility] Evaluation note Diagnosis Left flank pain- Primary Abdominal pain, unspecified site Hyperglycemia Other abnormal glucose Acute left-sided low back pain without sciatica [facility] Sacroiliac joint dysfunction of left side- Primary Chronic left-sided low back pain with left-sided sciatica Facet arthropathy, lumbar Lumbar degenerative disc disease Sacroiliac joint dysfunction of left side- Primary [facility] Diagnosis Sacroiliac joint dysfunction of left side- Primary [facility] Diagnosis Sacroiliac joint dysfunction of left side- Primary Sacroiliac joint dysfunction of left side [facility] Diagnosis Right upper quadrant abdominal pain- Primary Chronic constipation Unspecified constipation Abnormal biliary HIDA scan Abdominal lymphadenopathy Lumbar radiculopathy, chronic Hypertension, essential Unspecified essential hypertension Diabetes mellitus with stage 3 chronic kidney disease (CMS/HCC) Depression, major, recurrent, moderate (CMS/HCC) documented in this encounter [facility] Work Phone: Evaluation note* Diagnosis Gross hematuria- Primary Dysuria Breast cancer screening by mammogram Post-menopausal Asymptomatic postmenopausal status (age-related) (natural) Class 2 severe obesity due to excess calories with serious comorbidity and body mass index (BMI) of 38.0 to 38.9 in adult (CMS/HCC) documented in this encounter [facility] Work Phone: Evaluation note* Diagnosis Routine general medical examination at health care facility- Primary Routine general medical examination at a health care facility Abdominal lymphadenopathy Acquired hypothyroidism Unspecified hypothyroidism Vulvovaginal candidiasis Calculus of gallbladder with chronic cholecystitis without obstruction Hypomagnesemia Disorders of magnesium metabolism Diabetes mellitus with stage 3 chronic kidney disease (CMS/HCC) Medicare annual wellness visit, subsequent Advanced care planning/counseling discussion Hypertension, essential Unspecified essential hypertension Degenerative lumbar spinal stenosis Spinal stenosis of lumbar region Cirrhosis of liver without ascites, unspecified hepatic cirrhosis type (CMS/HCC) Class 2 severe obesity due to excess calories with serious comorbidity and body mass index (BMI) of 38.0 to 38.9 in adult (CMS/HCC) Depression, major, recurrent, moderate (CMS/HCC) documented in this encounter [facility] Work Phone: Evaluation note* Diagnosis Abdominal pain, generalized- Primary Cirrhosis of liver without ascites, unspecified hepatic cirrhosis type (CMS/HCC) Abdominal guarding Other symptoms involving abdomen and pelvis Hypertension associated with diabetes (CMS/HCC) Unspecified essential hypertension Gastroesophageal reflux disease without esophagitis Esophageal reflux Calculus of gallbladder with chronic cholecystitis without obstruction Abdominal pain, acute, right upper quadrant documented in this encounter [facility] Work Phone: Evaluation note* Diagnosis Acute non-recurrent frontal sinusitis- Primary Acute cough documented in this encounter [facility] Work Phone: Evaluation note* Diagnosis Primary osteoarthritis of left knee- Primary Acute pain of left knee documented in this encounter [facility] Work Phone: Evaluation note* Diagnosis Abdominal wall abscess- Primary Cellulitis and abscess of trunk Low vitamin B12 level Acute non-recurrent maxillary sinusitis Vitamin D deficiency Hypomagnesemia Disorders of magnesium metabolism Acquired hypothyroidism Unspecified hypothyroidism Hypertension associated with diabetes (CMS/HCC) Unspecified essential hypertension Class 3 severe obesity due to excess calories with serious comorbidity and body mass index (BMI) of 40.0 to 44.9 in adult (CMS/HCC) Diabetes mellitus with stage 3 chronic kidney disease (CMS/HCC) Gastroesophageal reflux disease without esophagitis Esophageal reflux Chronic obstructive pulmonary disease with acute exacerbation (CMS/HCC) documented in this encounter [facility] Work Phone: Evaluation note* Diagnosis Radiculopathy, lumbar region Thoracic or lumbosacral neuritis or radiculitis, unspecified Spinal stenosis, lumbar region with neurogenic claudication Low back pain, unspecified Pain in leg, unspecified Type 2 diabetes mellitus without complications (CMS/HCC) 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 (CMS/HCC) Unspecified cirrhosis of liver (CMS/HCC) Morbid (severe) obesity due to excess calories (CMS/HCC) Body mass index (BMI) 40.0-44.9, adult ([facility]) Chronic obstructive pulmonary disease, unspecified ([facility]) Depression, unspecified Pain, unspecified documented in this encounter [facility] Work Phone: Evaluation note* Diagnosis Chronic obstructive pulmonary disease with acute exacerbation (CMS/HCC)- Primary Abdominal wall abscess Cellulitis and abscess of trunk Type 2 diabetes mellitus with stage 3a chronic kidney disease, with long-term current use of insulin ([facility]/HCC) Hypertension associated with diabetes ([facility]/HCC) Unspecified essential hypertension Class 2 severe obesity due to excess calories with serious comorbidity and body mass index (BMI) of 39.0 to 39.9 in adult ([facility]/HCC) Diabetes mellitus with stage 3 chronic kidney disease ([facility]/HCC) documented in this encounter [facility] Work Phone: Evaluation note* Diagnosis Gastroenteritis- Primary Other and unspecified noninfectious gastroenteritis and colitis Diabetes mellitus with stage 3 chronic kidney disease ([facility]/HCC) Calculus of gallbladder with chronic cholecystitis without obstruction Cirrhosis of liver without ascites, unspecified hepatic cirrhosis type ([facility]/HCC) documented in this encounter [facility] Work Phone: Evaluation note* Diagnosis COPD exacerbation ([facility]/HCC)- Primary Obstructive chronic bronchitis with exacerbation Acute pain of left knee Tachycardia Unspecified tachycardia Acute bronchitis, unspecified organism documented in this encounter [facility] Work Phone: [phone] note* Diagnosis Pain of left lower extremity Leg swelling Swelling of limb documented in this encounter [facility] Work Phone: [phone] note* Diagnosis Tachycardia Unspecified tachycardia Heart palpitations Palpitations Acquired hypothyroidism Unspecified hypothyroidism documented in this encounter [facility] Work Phone: [phone] note* Diagnosis Tachycardia Unspecified tachycardia Heart palpitations Palpitations Acquired hypothyroidism Unspecified hypothyroidism documented in this encounter [facility] Work Phone: [phone] note* Diagnosis Lumbar radiculopathy, chronic- Primary Degenerative lumbar spinal stenosis Spinal stenosis of lumbar region Degenerative disc disease at L5-S1 level Arthritis of facet joint of lumbar spine documented in this encounter [facility] Work Phone: [phone] note* Diagnosis Primary osteoarthritis of left knee- Primary documented in this encounter [facility] Work Phone: [phone] note* Diagnosis Chronic obstructive pulmonary disease with acute exacerbation (CMS/HCC)- Primary Diabetes mellitus with stage 3 chronic kidney disease (CMS/HCC) documented in this encounter [facility] Work Phone: [phone] note* Diagnosis Primary osteoarthritis of left knee documented in this encounter [facility] Work Phone: [phone] note* Diagnosis Post-menopausal Asymptomatic postmenopausal status (age-related) (natural) documented in this encounter [facility] Work Phone: [phone] note* Diagnosis Encounter for screening mammogram for breast cancer documented in this encounter [facility] Work Phone: [phone] note* Diagnosis Primary osteoarthritis of left knee- Primary documented in this encounter [facility] Work Phone: [phone] note* Diagnosis Arthritis of left knee- Primary Medicare annual wellness visit, subsequent- Primary Diabetes mellitus with stage 3 chronic kidney disease (CMS/HCC) Routine general medical examination at health care facility Routine general medical examination at a [facility] care facility Hypertension associated with diabetes (CMS/HCC) Unspecified essential hypertension Class 3 severe obesity due to excess calories with serious comorbidity and body mass index (BMI) of 40.0 to 44.9 in adult (CMS/HCC) Low vitamin B12 level Vitamin D deficiency Acquired hypothyroidism Unspecified hypothyroidism Cirrhosis of liver without ascites, unspecified hepatic cirrhosis type (CMS/HCC) Adenoma of right adrenal gland Depression, major, recurrent, moderate (CMS/HCC) Arthritis of left knee Chronic obstructive pulmonary disease with acute exacerbation (CMS/HCC) Advanced care planning/counseling discussion Arthritis of left knee documented in this encounter [facility] Work Phone: [phone] note* Diagnosis Arthritis of left knee- Primary Diabetes mellitus with stage 3 chronic kidney disease (CMS/HCC)- Primary Chronic obstructive pulmonary disease with acute exacerbation ([facility]/HCC) Arthritis of left knee documented in this encounter [facility] Work Phone: [phone] note* Diagnosis Arthritis of left knee- Primary Left leg pain- Primary Pain in soft tissues of limb Arthritis of left knee documented in this encounter [facility] Work Phone: [phone] note* Diagnosis Arthritis of left knee- Primary Primary osteoarthritis of left knee Arthritis of left knee documented in this encounter [facility] Work Phone: [phone] note* Diagnosis Arthritis of left knee- Primary Left leg swelling Localized edema Edema Arthritis of left knee documented in this encounter [facility] Work Phone: [phone] note* Diagnosis Arthritis of left knee- Primary Left leg swelling Localized edema Edema Arthritis of left knee documented in this encounter [facility] Work Phone: [phone] note* Diagnosis Arthritis of left knee- Primary Primary osteoarthritis of left knee Arthritis of left knee documented in this encounter [facility] Work Phone: [phone] note* Diagnosis Arthritis of left knee- Primary Lumbar radiculopathy Thoracic or lumbosacral neuritis or radiculitis, unspecified Arthritis of left knee documented in this encounter [facility] Work Phone: [phone] note* Diagnosis Arthritis of left knee- Primary Arthritis of left knee Primary osteoarthritis of left knee S/P total knee arthroplasty, left documented in this encounter [facility] Work Phone: [phone] note* Diagnosis S/P TKR (total knee replacement), left documented in this encounter [facility] Work Phone: [phone] note* Diagnosis S/P TKR (total knee replacement), left documented in this encounter [facility] Work Phone: [phone] note* Diagnosis S/P TKR (total knee replacement), left documented in this encounter [facility] Work Phone: [phone] note* Diagnosis Degenerative lumbar spinal stenosis- Primary Spinal stenosis of lumbar region Lumbar radiculopathy, chronic Degenerative disc disease at L5-S1 level S/P total knee arthroplasty, left Myalgia Unspecified myalgia and myositis Chronic bilateral low back pain, unspecified whether sciatica present documented in this encounter [facility] Work Phone: [phone] note* Diagnosis S/P TKR (total knee replacement), left- Primary S/P TKR (total knee replacement), left documented in this encounter [facility] Work Phone: [phone] note* Diagnosis S/P TKR (total knee replacement), left documented in this encounter [facility] Work Phone: [phone] note* Diagnosis S/P TKR (total knee replacement), left documented in this encounter [facility] Work Phone: [phone] note* Diagnosis Lumbar radiculopathy, chronic- Primary Degenerative lumbar spinal stenosis Spinal stenosis of lumbar region Degenerative disc disease at L5-S1 level Chronic bilateral low back pain, unspecified whether sciatica present S/P total knee arthroplasty, left documented in this encounter [facility] Work Phone: [phone] note* Diagnosis Tachycardia- Primary Unspecified tachycardia Tachycardia Unspecified tachycardia Postural dizziness with presyncope Chest pain, unspecified type Acute pain of left knee Pain and swelling of left lower leg Pain in left leg COPD exacerbation (CMS/HCC) Obstructive chronic bronchitis with exacerbation Breast abrasion, left, initial encounter Pain and swelling of left lower leg documented in this encounter [facility] Work Phone: History of Present illness NarrativeAgree with CC as documented per REY. Janelle is a pleasant 66-year-old female following up for acute left knee pain with no known injury. She did complete her Medrol Dosepak which she felt helped some, however symptoms have returned since stopping. She reports she is doing her home exercises most daysof the week. She does notice her knee, pops at times. Pain is worse at night trying to find a comfortable position and with ambulation. She was unable to tolerate an Mt wrap in the past and is notinterested in pursuing bracing options at this time. Patient did previously have steroid injectionsin her back but those symptoms were specific to the low back into the sciatic region. She has neverhad knee pain from her back pain.[facility] [phone] Work Phone: History of Present illness Narrative* On a scale of 0 to 10, the patient rates the pain at 8. * Pain Location: Upper Back Pain. * Pain Quality: Cramping, Shooting and CRAMPING WITH INTERMITTENT SHOOTING PAIN. * Pain Radiation: LEFT POSTERIOR SHOULDER. * Sensory/ Motor: Pins and [place] and ALL OVER PER PATIENT. * Timing/Duration: Constant and > 12 weeks duration. * Exacerbating Factors: standing and weightbearing. * Alleviating Factors: Cold Therapy, Exercise, Medications, Repositioning. * 24 Hour Behavior: * Symptoms are the same in the am. * Symptoms are the same as the day progresses. * Symptoms are the same in the pm. * Symptoms are better lying down. * Patient is a 66-year-old female. She presents today for follow-up after undergoing bilateral L4-5 and L5-S1 facet medial branch block. She states that at this time this is not a bother to her. She states gave her 20% pain relief but then states that she does not have any pain in her lower back. Shestates that today her pain is in between her shoulder blades. She states that it started few weeks ago. She has not yet done anything for it other than take the muscle relaxer. She rates it an 8/10. At this time, she continues on methocarbamol which she tolerates well and it helps her as well as the gabapentin. She states that if she could just get her upper back pain better under control she would be feeling really well. She is better able to do the things she wants to do. Unfortunate, standing a lot and doing a lot of physical activity does cause some upper back pain. * She is on methocarbamol given by our services. She tolerates this better than the Flexeril and states that it does help her. She also [facility]: History of Present illness NarrativeMs. Pickett is a 66-year-old female seen at the request of Callie Mcdonough PA-C, for evaluation ofabdominal pain. The patient seems to have 2 separate types of pain. One is a generalized chronic abdominal pain. This is constant and occurs daily. She also complains of bloating and constipation. The other type of pain that she experiences is after eating greasy or fatty food, including hamburger meat, after which she gets more sharp right upper quadrant abdominal pain. This usually lasts for less than an hour and a half. She reports having gallbladder surgery years and years ago at [facility]. She does not recall specifics of the surgery, but it sounds like it was performed in an acute setting. Her other abdominal surgery includes a and an emergent umbilical hernia repair with small bowel resection about 5 years ago, also performed at [facility]. She denies any fever, yellowing of the skin or eyes or dark-colored urine associated with these episodes of pain. She also hascirrhosis. She had imaging and work-up of this abdominal pain including a CT scan which showed no acute etiology and this was read as being status postcholecystectomy. She subsequently had a HIDA scan which showed nonfilling of a gallbladder. She subsequently had an MRCP which showed stones within the cystic duct remnant. This also showed some splenomegaly with concern for portal [facility] Work Phone: History of Present illness Narrative* Nayana Miller APRN-EVERARDO - 01/19/2023 4:20 PM EDT Subjective Patient ID: Janelle Pickett is a 67 y.o. female who presents for Nasal Congestion (Associated with dry cough congestion x 3 days. Pt states she has not tested for covid ). TELEPHONE APPOINTMENT BEING PERFORMED DUE TO COVID-19 (CORONAVIRUS) HPI: Presents today for C/O DRY COUGH X 3 DAYS modifying factors consists of NO KNOWN COVID EXPOSURE. associated symptoms consist of SINUS PRESSURE BETWEEN HER EYES, MURRAY, AND NASAL CONGESTION. RUNNY NOSE. SORE THROAT THAT HAS RESOLVED. prior treatment consists of medication NONE Visit Vitals Smoking Status Every Day Review of Systems Constitutional: Negative for chills, fatigue, fever and unexpected weight change. HENT: Positive for congestion, rhinorrhea and sinus pressure. Negative for ear pain, sore throat and trouble swallowing. Eyes: Negative for photophobia, pain, redness and visual disturbance. Respiratory: Positive for cough. Negative for apnea, choking, chest tightness, shortness of breath and wheezing. Cardiovascular: Negative for chest pain, palpitations and leg swelling. Gastrointestinal: Negative for abdominal distention, abdominal pain, blood in stool, constipation, diarrhea, nausea and vomiting. Genitourinary: Negative for difficulty urinating, dysuria, flank pain, frequency, hematuria and urgency. Musculoskeletal: Negative for arthralgias, back pain, gait problem, joint swelling, myalgias and neck pain. Skin: Negative for rash and wound. Neurological: Positive for headaches. Negative for dizziness, seizures, syncope, facial asymmetry, speech difficulty, weakness and numbness. Psychiatric/Behavioral: Negative for confusion, sleep disturbance and suicidal ideas. The patient is not nervous/anxious. Objective Physical Exam Psychiatric: Mood and Affect: Mood normal. Thought Content: Thought content normal. Judgment: Judgment normal. Assessment/Plan Problem List Items Addressed This Visit Acute non-recurrent frontal sinusitis - Primary Relevant Medications azithromycin (Zithromax) 250 mg tablet predniSONE (Deltasone) 10 mg tablet Other Visit Diagnoses Acute cough Relevant Medications COVID-19 antigen test (COVID-19 At-Home Test) kit CALL WITH COVID-19 TESTING RESULTS. INSTRUCTED TO SELF QUARANTINE AND TO PRACTICE GOOD HAND WASHINGTECHNIQUES. PT WAS INSTRUCTED TO INCREASE FLUID INTAKE AND TAKE TYLENOL 650 MG PO Q6H/PRN FOR PAIN OR FEVER. RETURN SOONER OR GO TO THE ER IF SYMPTOMS PERSIST OR WORSEN. REFUSING SOONER FU APPT AT THIS TIME WE DISCUSSED MOST COMMON SIDE EFFECTS OF PRESCRIBED MEDICATIONS. INDICATIONS, RISK, COMPLICATIONS, AND ALTERNATIVES OF MEDICATION/THERAPEUTICS WERE EXPLAINED AND DISCUSSED. PLEASE MONITOR CLOSELY FORANY UNTOWARD SIDE EFFECTS OR COMPLICATIONS OF MEDICATIONS. PATIENT IS STRONGLY ADVISED TO BE COMPLIANT WITH RECOMMENDATIONS. QUESTIONS AND CONCERNS WERE ADDRESSED. INSTRUCTED TO CALL, RETURN SOONER, OR GO TO THE ER, IF SYMPTOMS PERSIST OR WORSEN. THEY VOICED UNDERSTANDING AND DENIES FURTHER QUESTIONS AT THIS TIME. TIME CODE 1. PREPARATION FOR PATIENT'S VISIT (REVIEWING CHART, CURRENT MEDICAL RECORDS, OUTSIDE HEALTH PROVIDER RECORDS, PREVIOUS HISTORY, EXAM, TEST, PROCEDURE, AND MEDICATIONS) 2. FACE TO FACE ENCOUNTER OBTAINING HISTORY FROM THE PATIENT/FAMILY/CAREGIVERS; PERFORMING EVALUATION AND EXAMINATION; ORDERING TESTS OR PROCEDURES; REFERRING AND COMMUNICATING WITH OTHER HEALTHCARE PROVIDERS; COUNSELING AND EDUCATION OF THE PATIENT/FAMILY/CAREGIVERS; INDEPENDENTLY INTERPRETING RESULTS (TESTS, LABS, PROCEDURES, IMAGING) AND COMMUNICATING AND EXPLAINING RESULTS TO THE PATIENT/FAMILY/CAREGIVERS 3. COORDINATION OF CARE; PREPARING AND PRINTING DISCHARGE INSTRUCTIONS AND ANY EDUCATIONAL MATERIALFOR THE PATIENT/FAMILY/CAREGIVERS. DOCUMENTING CLINICAL INFORMATION IN THE ELECTRONIC MEDICAL RECORD 4. REVIEWING OARRS NEEDED MDM 1) COMPLEXITY: MORE THAN 1 STABLE CHRONIC CONDITION ADDRESSED OR 1 ACUTE ILLNESS ADDRESSED 2)DATA: TESTS INTERPRETED AND OR ORDERED, TOOK INDEPENDENT HISTORY OR RECORDS REVIEWED 3)RISK: MODERATE RISK DUE TO NATURE OF MEDICAL CONDITIONS/COMORBIDITY OR MEDICATIONS ORDERED OR SURGICAL OR PROCEDURE REFERRAL Follow up as before PER PATIENT REQUEST [facility] Work Phone: Reason for referral (narrative)* Consultation (Routine) - Authorized Specialty Diagnoses / Procedures Referred By Nyasia duarte Referred To Contact General Surgery Diagnoses Right upper quadrant abdominal pain Chronic constipation Abnormal biliary HIDA scan Procedures [place] OFFICE/OUTPATIENT NEW HIGH MDM 60-74 MINUTES Callie Mcdonough PA-C [address] [facility] [place] [address] Kiley Yo MD [address] [facility], [address] [place] [address] Referral ID Status Reason Start Date Expiration Date Visits Requested Visits Authorized [id number] Authorized Specialty Services Required 07/08/2022 01/04/2023 1 1 * Imaging (Routine) - Authorized Specialty Diagnoses / Procedures Referred By Contac t Referred To Contact Radiology Diagnoses Right upper quadrant abdominal pain Chronic constipation Abnormal biliary HIDA scan Procedures MR abdomen w and wo IV contrast MRCP Callie Mcdonough PA-C [address] [place] [address] Referral ID Status Reason Start Date Expiration Date Visits Requested Visits Authorized [id number] Authorized Perform Procedure 07/08/2022 01/04/2023 1 1 [facility] Work Phone: Reason for referral (narrative)* Consultation (Routine) - Authorized Specialty Diagnoses / Procedures Referred By Contact Referred To Contact Orthopaedic Surgery / Orthopedic Surgery Diagnoses Primary osteoarthritis of left knee Procedures Follow Up In Orthopaedic Surgery Shadia Daely [employer]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 [address] [facility], [address] [address] Fredy Styles MD [address] [facility], [address] [place] [address] Referral ID Status Reason Start Date Expiration Date V isits Requested Visits Authorized [id number] Authorized 05/09/2023 05/08/2024 1 1 * Imaging (Routine) - Pending Review Specialty Diagnoses / Procedures Referred By Contac t Referred To Contact Radiology Diagnoses Primary osteoarthritis of left knee Procedures MR knee left wo IV contrast Shadia Daley [employer]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 [address] [facility], [address] [address] Referral ID Status Reason Start Date Expiration Date Visits Requested Visits Authorized [id number] Pending Review Perform Procedure 05/09/2023 05/08/2024 1 1 [facility] Work Phone: Recvqj for referral (narrative)* Consultation (Routine) - Authorized Specialty Diagnoses / Procedures Referred By Contac t Referred To Contact Pharmacy Diagnoses Chronic obstructive pulmonary disease with acute exacerbation (CMS/HCC) Diabetes mellitus with stage 3 chronic kidney disease (CMS/HCC) Procedures Follow Up In Clinical Pharmacy Callie Mcdonough PA-C [address] [place] [address] [facility] [address] [place] [address] Referral ID Status Reason Start Date Expiration Date V isits Requested Visits Authorized [id number] Authorized 05/09/2023 05/08/2024 1 1 [facility] Work Phone: Reialw for referral (narrative)* Consultation (Routine) - Authorized Specialty Diagnoses / Procedures Referred By Contac t Referred To Contact Pharmacy Diagnoses Chronic obstructive pulmonary disease with acute exacerbation (CMS/HCC) Diabetes mellitus with stage 3 chronic kidney disease (CMS/HCC) Procedures Follow Up In Clinical Pharmacy Callie Mcdonough PA-C [address] [place] [place] [address] [facility] [address] [place] [phone] Referral ID Status Reason Start Date Expiration Date V isits Requested Visits Authorized [id number] Authorized 05/30/2023 05/29/2024 1 1 [facility] Work Phone: Reehwc for referral (narrative)* Procedure (Routine) - Authorized Specialty Diagnoses / Procedures Referred By Contac t Referred To Contact Pain Medicine / Procedural Diagnoses Lumbar radiculopathy Procedures Epidural Steroid Injection Kelly Carrasco PA-C [address] [place] [address] [place] [address] [address] Referral ID Status Reason Start Date Expiration Date Visits Requested Visits Authorized [id number] Authorized Perform Procedure 05/31/2023 05/30/2024 1 1 [facility] Work Phone: Reaxxt for referral (narrative)* Consultation (Routine) - Pending Review Specialty Diagnoses / Procedures Referred By Contac t Referred To Contact Physical Therapy Diagnoses S/P TKR (total knee replacement), left WorkRyan schaffer PA-C [address] [facility], [address] [place] [id number] Referral ID Status Reason Start Date Expiration Date Visits Requested Visits Authorized [id number] Pending Review Specialty Services Required 06/17/2023 06/16/2024 1 1 * Imaging (Routine) - Authorized Specialty Diagnoses / Procedures Referred By Contac t Referred To Contact Radiology Diagnoses S/P TKR (total knee replacement), left Procedures XR knee left 3 views Fredy Styles MD [address] [facility], [address] [place] [id number] [address] [place] [address] Referral ID Status Reason Start Date Expiration Date Visits Requested Visits Authorized [id number] Authorized Perform Procedure 06/14/2023 06/13/2024 1 1 [facility] Work Phone: Retvfg for referral (narrative)* Consultation (Routine) - Pending Review Specialty Diagnoses / Procedures Referred By Contac t Referred To Contact Physical Therapy Diagnoses S/P TKR (total knee replacement), left Ryan Power PA-C [address] [facility], [address] [place] [address] Referral ID Status Reason Start Date Expiration Date Visits Requested Visits Authorized [id number] Pending Review Specialty Services Required 07/22/2023 07/21/2024 1 1 [facility] Work Phone: Reason for visit Narrative* Auth/Cert Specialty Diagnoses / Procedures Referred By Contac t Referred To Contact Diagnoses Sacroiliac joint dysfunction of left side Procedures Left SI joint injection Referral ID Status Reason Start Date Expiration Date Visits Re quested Visits Authorized [id number] 1 1 [facility] for visit Narrative* Procedure (Routine) - Authorized Specialty Diagnoses / Procedures Referred By Contac t Referred To Contact Pain Medicine / Procedural Diagnoses Lumbar radiculopathy Procedures Epidural Steroid Injection Kelly Carrasco PA-C [address] [place] [address] [address] Referral ID Status Reason Start Date Expiration Date Visits Requested Visits Authorized [id number] Authorized Perform Procedure 05/31/2023 05/30/2024 1 1 [facility] Work Phone: Summary Purpose Family History No Family History Records FoundUnknown Family Member Name Dates Details Family history of malignant neoplasm: Brother, Aunt(V16.9, Z80.9) Status:Active Unknown Family Member Name Dates Details Family history of malignant neoplasm: Brother, Aunt(V16.9, Z80.9) Status:Active Unknown Family Member Name Dates Details Family history of malignant neoplasm: Brother, Aunt(V16.9, Z80.9) Status:Active Unknown Family Member Name Dates Details Family history of malignant neoplasm: Brother, Aunt(V16.9, Z80.9) Status:Active Unknown Family Member Name Dates Details Family history of malignant neoplasm: Brother, Aunt(V16.9, Z80.9) Status:Active Unknown Family Member Name Dates Details Family history of malignant neoplasm: Brother, Aunt(V16.9, Z80.9) Status:Active Unknown Family Member Name Dates Details Family history of malignant neoplasm: Brother, Aunt(V16.9, Z80.9) Status:Active Unknown Family Member Name Dates Details Family history of malignant neoplasm: Brother, Aunt(V16.9, Z80.9) Status:Active Unknown Family Member Name Dates Details Family history of malignant neoplasm: Brother, Aunt(V16.9, Z80.9) Comments:2-3 AUNTS ON KELSEY Duarte'S DAD'S SIDE HAD CANCER. PT BOTHER ALSO HAS CANCER (PT NOT SURE WHAT KIND OF CANCER); Status:Active Aneurysm: Mother 1970 Comments:- PASSED A WAY; Status:Active Edema: Father 1970 Comments: 1969; Status:Active Unknown Family Member Name Dates Details Family history of malignant neoplasm: Brother, Aunt(V16.9, Z80.9) Comments:2-3 AUNTS ON KELSEY Duarte'S DAD'S SIDE HAD CANCER. PT BOTHER ALSO HAS CANCER (PT NOT SURE WHAT KIND OF CANCER); Status:Active Aneurysm: Mother 1970 Comments:- PASSED A WAY; Status:Active Edema: Father 1970 Comments: 1969; Status:Active Unknown Family Member Name Dates Details Family history of malignant neoplasm: Brother, Aunt(V16.9, Z80.9) Comments:2-3 AUNTS ON KELSEY Duarte'S DAD'S SIDE HAD CANCER. PT BOTHER ALSO HAS CANCER (PT NOT SURE WHAT KIND OF CANCER); Status:Active Aneurysm: Mother 1970 Comments:- PASSED A WAY; Status:Active Edema: Father 1970 Comments: 1969; Status:Active Unknown Family Member Name Dates Details Family history of malignant neoplasm: Brother, Aunt(V16.9, Z80.9) Comments:2-3 AUNTS ON KELSEY Duarte'S DAD'S SIDE HAD CANCER. PT BOTHER ALSO HAS CANCER (PT NOT SURE WHAT KIND OF CANCER); Status:Active Aneurysm: Mother 1970 Comments:- PASSED A WAY; Status:Active Edema: Father 1970 Comments: 1969; Status:Active Unknown Family Member Name Dates Details Family history of malignant neoplasm: Brother, Aunt(V16.9, Z80.9) Comments:2-3 AUNTS ON KELSEY Duarte'S DAD'S SIDE HAD CANCER. PT BOTHER ALSO HAS CANCER (PT NOT SURE WHAT KIND OF CANCER); Status:Active Aneurysm: Mother 1971 Comments:- PASSED A WAY; Status:Active Edema: Father 1970 Comments: 1970; Status:Active Unknown Family Member Name Dates Details Family history of malignant neoplasm: Brother, Aunt(V16.9, Z80.9) Comments:2-3 AUNTS ON KELSEY Duarte'S DAD'S SIDE HAD CANCER. PT BOTHER ALSO HAS CANCER (PT NOT SURE WHAT KIND OF CANCER); Status:Active Aneurysm: Mother 1970 Comments:- PASSED A WAY; Status:Active Edema: Father 1970 Comments: 1969; Status:Active Unknown Family Member Name Dates Details Family history of malignant neoplasm: Brother, Aunt(V16.9, Z80.9) Comments:2-3 AUNTS ON KELSEY Duarte'S DAD'S SIDE HAD CANCER. PT BOTHER ALSO HAS CANCER (PT NOT SURE WHAT KIND OF CANCER); Status:Active Aneurysm: Mother 1970 Comments:- PASSED A WAY; Status:Active Edema: Father 1970 Comments: 1969; Status:Active Unknown Family Member Name Dates Details Family history of malignant neoplasm: Brother, Aunt(V16.9, Z80.9) Comments:2-3 AUNTS ON KELSEY Duarte'S DAD'S SIDE HAD CANCER. PT BOTHER ALSO HAS CANCER (PT NOT SURE WHAT KIND OF CANCER); Status:Active Aneurysm: Mother 1970 Comments:- PASSED A WAY; Status:Active Edema: Father 1970 Comments: 1969; Status:Active Unknown Family Member Name Dates Details Family history of malignant neoplasm: Brother, Aunt(V16.9, Z80.9) Comments:2-3 AUNTS ON KELSEY Duarte'S DAD'S SIDE HAD CANCER. PT BOTHER ALSO HAS CANCER (PT NOT SURE WHAT KIND OF CANCER); Status:Active Aneurysm: Mother 1970 Comments:- PASSED A WAY; Status:Active Edema: Father 1970 Comments: 1969; Status:Active Unknown Family Member Name Dates Details Family history of malignant neoplasm: Brother, Aunt(V16.9, Z80.9) Comments:2-3 AUNTS ON KELSEY Duarte'S DAD'S SIDE HAD CANCER. PT BOTHER ALSO HAS CANCER (PT NOT SURE WHAT KIND OF CANCER); Status:Active Aneurysm: Mother 1971 Comments:- PASSED A WAY; Status:Active Edema: Father 1970 Comments: 1970; Status:Active Unknown Family Member Name Dates Details Family history of malignant neoplasm: Brother, Aunt(V16.9, Z80.9) Comments:2-3 AUNTS ON KELSEY Duarte'S DAD'S SIDE HAD CANCER. PT BOTHER ALSO HAS CANCER (PT NOT SURE WHAT KIND OF CANCER); Status:Active Edema: Father 1970 Comments: 1970; Status:Active Aneurysm: Mother 1970 Comments:- PASSED A WAY; Status:Active Unknown Family Member Name Dates Details Family history of malignant neoplasm: Brother, Aunt(V16.9, Z80.9) Comments:2-3 AUNTS ON KELSEY Duarte'S DAD'S SIDE HAD CANCER. PT BOTHER ALSO HAS CANCER (PT NOT SURE WHAT KIND OF CANCER); Status:Active Aneurysm: Mother 1970 Comments:- PASSED A WAY; Status:Active Edema: Father 1970 Comments: 1969; Status:Active Unknown Family Member Name Dates Details Family history of malignant neoplasm: Brother, Aunt(V16.9, Z80.9) Comments:2-3 AUNTS ON KELSEY Duarte'S DAD'S SIDE HAD CANCER. PT BOTHER ALSO HAS CANCER (PT NOT SURE WHAT KIND OF CANCER); Status:Active Aneurysm: Mother 1970 Comments:- PASSED A WAY; Status:Active Edema: Father 1970 Comments: 1969; Status:Active Unknown Family Member Name Dates Details Family history of malignant neoplasm: Brother, Aunt(V16.9, Z80.9) Comments:2-3 AUNTS ON KELSEY Duarte'S DAD'S SIDE HAD CANCER. PT BOTHER ALSO HAS CANCER (PT NOT SURE WHAT KIND OF CANCER); Status:Active Aneurysm: Mother 1970 Comments:- PASSED A WAY; Status:Active Edema: Father 1970 Comments: 1969; Status:Active Unknown Family Member Name Dates Details Family history of malignant neoplasm: Brother, Aunt(V16.9, Z80.9) Comments:2-3 AUNTS ON KELSEY Duarte'S DAD'S SIDE HAD CANCER. PT BOTHER ALSO HAS CANCER (PT NOT SURE WHAT KIND OF CANCER); Status:Active Aneurysm: Mother 1970 Comments:- PASSED A WAY; Status:Active Edema: Father 1970 Comments: 1969; Status:Active Unknown Family Member Name Dates Details Family history of malignant neoplasm: Brother, Aunt(V16.9, Z80.9) Comments:2-3 AUNTS ON KELSEY Duarte'S DAD'S SIDE HAD CANCER. PT BOTHER ALSO HAS CANCER (PT NOT SURE WHAT KIND OF CANCER); Status:Active Aneurysm: Mother 1970 Comments:- PASSED A WAY; Status:Active Edema: Father 1970 Comments: 1969; Status:Active Unknown Family Member Name Dates Details Family history of malignant neoplasm: Brother, Aunt(V16.9, Z80.9) Comments:2-3 AUNTS ON KELSEY Duarte'S DAD'S SIDE HAD CANCER. PT BOTHER ALSO HAS CANCER (PT NOT SURE WHAT KIND OF CANCER); Status:Active Aneurysm: Mother 1971 Comments:- PASSED A WAY; Status:Active Edema: Father 1970 Comments: 1969; Status:Active Unknown Family Member Name Dates Details Family history of malignant neoplasm: Brother, Aunt(V16.9, Z80.9) Comments:2-3 AUNTS ON KELSEY Duarte'S DAD'S SIDE HAD CANCER. PT BOTHER ALSO HAS CANCER (PT NOT SURE WHAT KIND OF CANCER); Status:Active Aneurysm: Mother 1970 Comments:- PASSED A WAY; Status:Active Edema: Father 1970 Comments: 1969; Status:Active Advance Directives No Advanced Directives Records FoundDocuments on File Type Date Recorded Patient Speed Belt Sander Tender Expl anation Advance Directives and Livin g Will 10/22/2020 1:19 PM Does not have Latest Code Status on File Code Status Date Activated Date Inactivated Comments Full Code 09/08/2020 2:50 AM 09/09/2020 2:38 PM Documents on File Type Date Recorded Patient Speed Belt Sander Tender Expl anation Advance Directives and Livin g Will 10/31/2020 10:29 AM Documents on File Type Date Recorded Patient Speed Belt Sander Tender Expl anation Advance Directives and Livin g Will 11/20/2020 7:23 AM Latest Code Status on File Code Status Date Activated Date Inactivated Comments Full Code 09/08/2020 2:50 AM 09/09/2020 2:38 PM Documents on File Type Date Recorded Patient Speed Belt Sander Tender Expl anation Advance Directives and Livin g Will 01/08/2021 7:23 AM Latest Code Status on File Code Status Date Activated Date Inactivated Comments Full Code 04/04/2023 2:57 PM Question Answer Comments Plan of Care: Code Status Discussion Completed Decision Maker: Patient Latest Code Status on File Code Status Date Activated Date Inactivated Comments Full Code 04/04/2023 2:57 PM Question Answer Comments Plan of Care: Code Status Discussion Completed Decision Maker: Patient Latest Code Status on File Code Status Date Activated Date Inactivated Comments Full Code 04/04/2023 2:57 PM Question Answer Comments Plan of Care: Code Status Discussion Completed Decision Maker: Patient Latest Code Status on File Code Status Date Activated Date Inactivated Comments Full Code 06/10/2023 8:41 AM Question Answer Comments Plan of Care: Code Status Discussion Completed Decision Maker: Patient Code Status History Code Status Date Activated Date Inactivated Comments Full Code 04/04/2023 2:57 PM 06/10/2023 8:41 AM Question Answer Comments Plan of Care: Code Status Discussion Completed Decision Maker: Patient Latest Code Status on File Code Status Date Activated Date Inactivated Comments Full Code 06/10/2023 8:41 AM Question Answer Comments Plan of Care: Code Status Discussion Completed Decision Maker: Patient Code Status History Code Status Date Activated Date Inactivated Comments Full Code 04/04/2023 2:57 PM 06/10/2023 8:41 AM Question Answer Comments Plan of Care: Code Status Discussion Completed Decision Maker: Patient Latest Code Status on File Code Status Date Activated Date Inactivated Comments Full Code 06/10/2023 8:41 AM Question Answer Comments Plan of Care: Code Status Discussion Completed Decision Maker: Patient Code Status History Code Status Date Activated Date Inactivated Comments Full Code 04/04/2023 2:57 PM 06/10/2023 8:41 AM Question Answer Comments Plan of Care: Code Status Discussion Completed Decision Maker: Patient Date Activated Date Inactivated Comments 06/10/2023 8:41 AM Question Answer Comments Plan of Care: Code Status Discussion Completed Decision Maker: Patient Date Activated Date Inactivated Comments 04/04/2023 2:57 PM 06/10/2023 8:41 AM Question Answer Comments Plan of Care: Code Status Discussion Completed Decision Maker: Patient Date Activated Date Inactivated Comments 06/10/2023 8:41 AM Question Answer Comments Plan of Care: Code Status Discussion Completed Decision Maker: Patient Date Activated Date Inactivated Comments 04/04/2023 2:57 PM 06/10/2023 8:41 AM Question Answer Comments Plan of Care: Code Status Discussion Completed Decision Maker: Patient Reason for Referral Specialty Diagnoses / Procedures Referred By Contac t Referred To Contact Radiology Diagnoses Breast cancer screening by mammogram Procedures BI mammo bilateral screening tomosynthesis Nayana Miller, [facility] [address] [place] [address] Referral ID Status Reason Start Date Expiration Date Visits Requested Visits Authorized [id number] Authorized Perform Procedure 07/16/2022 01/12/2023 1 1 Specialty Diagnoses / Procedures Referred By Contac t Referred To Contact Radiology Diagnoses Post-menopausal Procedures XR DEXA bone density Nayana Miller, [facility] [address] [place] [phone] Referral ID Status Reason Start Date Expiration Date Visits Requested Visits Authorized [id number] Authorized Perform Procedure 07/16/2022 01/12/2023 1 1 Specialty Diagnoses / Procedures Referred By Contac t Referred To Contact Orthopaedic Surgery / Orthopedic Surgery Diagnoses Primary osteoarthritis of left knee Procedures L Inj/Asp: L knee Shadia Daley [employer] PL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 [address] [facility], [place] [address] Referral ID Status Reason Start Date Expiration Date V isits Requested Visits Authorized [id number] Pending Review 02/09/2023 02/09/2024 1 1 Specialty Diagnoses / Procedures Referred By Contac t Referred To Contact Orthopaedic Surgery / Orthopedic Surgery Diagnoses Primary osteoarthritis of left knee Procedures Follow Up In Orthopaedic Surgery Shadia Daley [employer] SEQUESTRATION PL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 [address] [facility], [place] [phone] Referral ID Status Reason Start Date Expiration Date V isits Requested Visits Authorized [id number] Authorized 02/07/2023 02/07/2024 1 1 Specialty Diagnoses / Procedures Referred By Contac t Referred To Contact Diagnoses Class 3 severe obesity due to excess calories with serious comorbidity and body mass index (BMI) of 40.0 to 44.9 in adult ([facility]) Diabetes mellitus with stage 3 chronic kidney disease ([facility]) Callie Mcdonough PA-C [address] [place] [address] Referral ID Status Reason Start Date Expiration Date V isits Requested Visits Authorized [id number] Pending Review 1 1 Specialty Diagnoses / Procedures Referred By Contac t Referred To Contact Diagnoses Chronic obstructive pulmonary disease with acute exacerbation ([facility]) Procedures Pulmonary function testing Callie Mcdonough PA-C [address] [place] [address] Referral ID Status Reason Start Date Expiration Date V isits Requested Visits Authorized [id number] Pending Review 03/08/2023 03/07/2024 1 1 Specialty Diagnoses / Procedures Referred By Contac t Referred To Contact Diagnoses Chronic obstructive pulmonary disease with acute exacerbation ([facility]) Procedures Pulse oximetry, overnight Callie Mcdonough PA-C [address] [place] [address] Referral ID Status Reason Start Date Expiration Date V isits Requested Visits Authorized [id number] Pending Review 03/08/2023 03/07/2024 1 1 Specialty Diagnoses / Procedures Referred By Contac t Referred To Contact Diagnoses Gastroenteritis Callie Mcdonough PA-C [address] [place] [address] Referral ID Status Reason Start Date Expiration Date V isits Requested Visits Authorized [id number] Authorized 02/26/2023 03/27/2024 1 1 Specialty Diagnoses / Procedures Referred By Contac t Referred To Contact Cardiology Diagnoses Pain of left lower extremity Leg swelling Procedures Lower extremity venous duplex left Shadia Daley, [employer] PL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 [address] [facility], [facility] [address] [place] [address] Referral ID Status Reason Start Date Expiration Date Visits Requested Visits Authorized [id number] Pending Review Perform Procedure 04/12/2023 04/11/2024 1 1 Specialty Diagnoses / Procedures Referred By Contac t Referred To Contact Cardiology Diagnoses Tachycardia Heart palpitations Acquired hypothyroidism Procedures Holter Or Event Surfacer Operator Callie Mcdonough PA-C [address] [facility] [place] [address] [facility] [address] [facility] [address] [place] [address] Referral ID Status Reason Start Date Expiration Date V isits Requested Visits Authorized [id number] Authorized 04/18/2023 04/17/2024 1 1 Specialty Diagnoses / Procedures Referred By Contac t Referred To Contact Radiology Diagnoses Primary osteoarthritis of left knee Procedures MR knee left wo IV contrast Shadia Daley, [employer] SE[employer] PL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 [address] [facility], [facility] [address] [place] [address] Referral ID Status Reason Start Date Expiration Date Visits Requested Visits Authorized [id number] Authorized Perform Procedure 05/09/2023 05/08/2024 1 1 Specialty Diagnoses / Procedures Referred By Contac t Referred To Contact Radiology Diagnoses Post-menopausal Procedures XR DEXA bone density Callie Mcdonough PA-C [address] [place] [address] Referral ID Status Reason Start Date Expiration Date Visits Requested Visits Authorized [id number] Pending Review Perform Procedure 3 02/21/2024 1 1 Specialty Diagnoses / Procedures Referred By Contac t Referred To Contact Radiology Diagnoses Encounter for screening mammogram for breast cancer Procedures BI mammo bilateral screening tomosynthesis Callie Mcdonough PA-C [address] [facility] [place] [address] Referral ID Status Reason Start Date Expiration Date Visits Requested Visits Authorized [id number] Authorized Perform Procedure 3 02/21/2024 1 1 Specialty Diagnoses / Procedures Referred By Contac t Referred To Contact Radiology Diagnoses Primary osteoarthritis of left knee Procedures XR chest 2 views Fredy Styles MD [address] [facility], [address] [place] [address] Referral ID Status Reason Start Date Expiration Date Visits Requested Visits Authorized [id number] Authorized Perform Procedure 05/27/2023 05/26/2024 1 1 Specialty Diagnoses / Procedures Referred By Contac t Referred To Contact Diagnoses Primary osteoarthritis of left knee Procedures ECG 12 Lead Fredy Styles MD [address] [facility], [address] [place] [address] Referral ID Status Reason Start Date Expiration Date V isits Requested Visits Authorized [id number] Authorized 05/27/2023 05/26/2024 1 1 Specialty Diagnoses / Procedures Referred By Contac t Referred To Contact Cardiology Diagnoses Left leg swelling Procedures Lower extremity venous duplex left Ryan Mehta MD [address] [address] Referral ID Status Reason Start Date Expiration Date Visits Requested Visits Authorized [id number] Authorized Perform Procedure 05/31/2023 05/30/2024 1 1 Specialty Diagnoses / Procedures Referred By Contact Referred To Contact Home Health Services Diagnoses Arthritis of left knee Fredy Styles MD [address] [facility], [address] [place] [address] [address] Referral ID Status Reason Start Date Expiration Date Visits Requested Visits Authorized [id number] Pending Review Specialty Services Required 06/10/2023 06/09/[phone] Specialty Diagnoses / Procedures Referred By Contac t Referred To Contact Radiology Diagnoses S/P TKR (total knee replacement), left Procedures XR knee left 3 views Fredy Styles MD [address] [facility], [address] [place] [address] [address] [place] [address] Referral ID Status Reason Start Date Expiration Date Visits Requested Visits Authorized [id number] Authorized Perform Procedure 06/14/2023 06/13/2024 1 1 Specialty Diagnoses / Procedures Referred By Contjr t Referred To Contact Radiology Diagnoses S/P TKR (total knee replacement), left Procedures XR knee left 3 views Fredy Styles MD [address] [facility], [address] [place] [address] Referral ID Status Reason Start Date Expiration Date Visits Requested Visits Authorized [id number] Authorized Perform Procedure 07/21/2023 07/20/2024 1 1 Chief Complaint PT HERE FOR FU LEFT KNEE PAIN. STATES KNEE IS THE SAME, NO IMPROVEMENT. STATES PAIN AND SWELLING ARE CONSTANT. PAIN INCREASES WITH ACTIVITY AND WITH HOME EXERCISES.FUV PATIENT HAS LOW BACK PAIN THAT RADIATES INTO HER LEFT INNER THIGH; SHE STATES THAT IT IS GETTING WORSE AND HAS BEEN PRESENT FOR LONGER THAN THREE MONTHS. PATIENT DENIES USING A CANE, WALKER OR TENS UNIT. PATIENT DENIES AT HOME STRETCHES, PT, OR CHIROPRACTOR AND STATES THAT SHE DOES NOT WANT TO BE INVOLVED WITH THAT. PATIENT USES A PILLOW TO REPOSITION FOR COMFORT, APPLIES ICE BUT DENIES MESSAGES. REPORTS NUMBNESS/WEAKNESS IN THE RIGHT THIGH; STATES SHE HAS TO SLOW DOWN WHEN SHE IS WALKINGOR SHE FEELS THOUGH SHE IS LOSING CONTROL OF HER LEGS AND IS PRONE TO FALLING IF SHE IS NOT CAREFUL. SHE DENIES TAKING PREDNISONE.* FUV xray and MRI results, today reports she is having bilat lower back pain that radiates up on rt side to scapula area and lt medial knee rates 8/10, describes as an ache. she has a lot of trouble standing and walking for longer than 10 minutes, sitting decreases her pain and GPN but it makes her head feel funny. * ETOH Screening negative * FUV FIRST MEDIAL BRANCH BLOCK, BILATERAL L4-S1. PATIENT STATES SHE WENT HOME AND ATTEMPTED TO RECREATE HER PAIN BY WALKING AND DOING LEG EXERCISES. SHE STATES SHE HAD LESS PAIN THAN SHE NORMALLY DOESWHILE DOING THESE ACTIVITIES- 15-20% REDUCTION IN PAIN. PATIENT STATES HER PAIN IS WORSE WHEN SHE STANDS FOR LONG PERIODS OF TIME, WALKS AND DOES ADL'S. SHE TRIES TO APPLY ICE, REPOSITIONS FOR RELIEFAND TAKES MEDICATION PRESCRIBED. SHE WOULD LIKE THE REFILLS SENT TO [facility]. SHE DENIES CANE OR WALKER, TYRE FITTER OR MASSAGES. PATIENT STATES THAT SHE HAS PINCHES (PINS AND NEEDLES) ALL OVER. * PAIN SCORE 8/10 TODAY. ETOH NEGATIVE. ESTABLISH NEW PATIENTESTABLISH NEW PATIENT* PATIENT PRESENTS TO OFFICE FOR : F/U OF LEFT KNEE PAIN * ONSET: 04/01/22 * DOI / DOS: HAS FALLEN SEVERAL TIMES IN PAST FEW WEEKS THE LAST TIME BEING ON 04/24/22 * IMPROVED: NO * PAIN: 10/10 * PAIN MEDS TAKEN: ADVIL * ROM: PAINFUL TO BEND * ICE / HEAT APPLIED: BOTH * BRACE WORN: NO * LAST INJECTION: NA * REFERRAL: NA * . HEMATURIAAbdominal painNPV in office today for abdominal pain, constipation, bloating, nausea. Patient state she has had acolonoscopy in the past with Callie Mcdonough's office but I do not see any record.* PATIENT PRESENTS TO OFFICE FOR : F/U OF LEFT KNEE PAIN * PAIN: RATES 8/10 BEING WORST PAIN W/ MOVEMENT. * PAIN MEDS TAKEN: ADVIL * ROM: PAINFUL TO BEND * ICE / HEAT APPLIED: BOTH * BRACE WORN: DAILY * LAST INJECTION: 04/28/22 * LAST XRAY: 04/01/22 * PATIENT PRESENTS TO OFFICE FOR : F/U OF LEFT KNEE PAIN * PAIN: RATES 810 * PAIN MEDS TAKEN: ADVIL, TYLENOL * ROM: PAINFUL TO BEND * ICE / HEAT APPLIED: BOTH * BRACE WORN: DAILY ( WHEN SHE CAN GET IT PUT ON HERSELF, SHE STATES THERE ARE DAYS * WHEN SHE IS UNABLE TO PUT THE BRACE ON EFFECTIVELY) * LAST INJECTION: 11/26/22 * LAST XRAY: 04/01/22 * FUV reports L5-S1 JOSE reports 50% relief- her thigh discomfort is better. Today having pain in Rt side lower back and bilat leg pain from the kness down into her bilat feet she has intermittent swelling, rates 8/10, describes aching. She reports the pain affects her ADLs including personal care, lif ting, sleeping, social and sex life, traveling, she can only stand 30 minutes and walk less than 100 yards with a cane. She will need RF on Methocarbamol and GPN send to [facility]. She is to have injections in her knee per Ortho she is waiting for the approval. * Oswestry Disability Index evaluation tool completed by patient score 60/100, Alcohol screen negative Additional Source Comments INFORMATION SOURCE (unrecogn ized section and content) DATE CREATED AUTHOR 04/14/2018 [facility] DATE CREATED AUTHOR AUTHOR'S ORGANIZ ATION 02/10/2019 [facility] DATE CREATED AUTHOR AUTHOR'S ORGANIZ ATION 06/15/2020 [facility] DATE CREATED AUTHOR AUTHOR'S ORGANIZ ATION 11/27/2020 [facility] DATE CREATED AUTHOR AUTHOR'S ORGANIZ ATION 01/09/2021 [facility] DATE CREATED AUTHOR AUTHOR'S ORGANIZ ATION 01/17/2021 [facility] DATE CREATED AUTHOR AUTHOR'S ORGANIZ ATION 12/30/2022 [employer] DATE CREATED AUTHOR AUTHOR'S ORGANIZ ATION 01/12/2023 [facility] DATE CREATED AUTHOR AUTHOR'S ORGANIZ ATION 07/08/2023 [facility] DATE CREATED AUTHOR AUTHOR'S ORGANIZ ATION 01/01/2024 [facility] DATE CREATED AUTHOR AUTHOR'S ORGANIZ ATION 01/07/2024 [facility] DATE CREATED AUTHOR AUTHOR'S ORGANIZ ATION 01/10/2024 [facility] Reason for Visit (unrecogniz ed section and content) Reason Comments Hip Pain Reason Comments Consult Patient describes th e pain as a real bad ache and it goes clear across the low back, she notes the pain is worse L side. Patients said the pain goes into both hips and buttocks and down to the knee on the L side. SHe states the pain medication her PCP gives her are not helping her. Status Reason Specialty Diagnoses / Procedures Referred By Contact Referred To Contact Closed Specialty Services Required/Patien t's Best Interest Neurological Surgery / Neurosurgery Diagnoses Chronic left-sided low back pain with left-sided sciatica Lizet Mackay, 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 [address] [place] [address] [facility] [place] [address] Status Reason Specialty Diagnoses / Procedures Referre d By Contact Referred To Contact Diagnoses Sacroiliac joint dysfunction of left side Procedures Left Sacroiliac Joint Injection Reason Comments Follow-up F/U HIDA SCAN. C/O R IGHT ABDOMINAL PAIN RADIATES TO BACK AND DOWN B/L LEGS. Reason Comments Blood in Urine C/O HEMATURIA EPISOD E YESTERDAY - ALL DAY YESTERDAY EVERY URINATION HAD BRIGHT RED BLOOD. NO BLOOD NOTICED TODAY THOUGH. H/O HEMATURIA AND PATIENT WAS REFERRED TO UROLOGIST LAST MONTH BUT MURRAY NOT GONE TO APPOINTMENT. C/O RLQ AND RUQ PAIN - PENDING APPOINTMENT WITH SURGEON NEXT WEEK TO DISCUSS ABNORMAL HIDA WITH PENDING MRCP. Reason Comments Medicare Annual Wellness Visit Subsequen t MEDICARE WELLNESS AND LABS Reason Comments Follow-up C/O ABD PAIN AND BLO ATING WORSENING. ABD SWELLS AT NIGHT Reason Comments Nasal Congestion Associated with dry cough congestion x 3 days. Pt states she has not tested for covid Reason Comments Pain Patient is here for Euflexxa #3 injection into her left knee. Reason Comments Follow-up 3 MO F/U WITH LABS. C/O OPEN SORES ON LOWER ABD X 1.5 WKS Reason Comments Other M54.16 Reason Comments Follow-up 2 WEEK F/U ABDOMINAL WALL ABSCESS + CHRONIC COUGH. COMPLETED BACTRIM COURSE AND ABSCESS HAS IMPROVED BUT STILL HAS YELLOW DISCHARGE FROM SITE. CONTINUES TO HAVE SOMEWHAT PRODUCTIVE COUGH AND SOB ON EXERTION. USING INHALER WHICH OFFERS SOME RELIEF. Reason Comments Illness TELEPHONE; C/O DIARR HEA AND VOMITING X 4-5 DAY NOW-DENIES ANY OTHER SYMPTOMS Reason Comments Knee Pain C/o left knee pain f or awhile, and has been seeing ortho. Then 4 days ago she bent over and c/o increased pain. Specialty Diagnoses / Procedures Referred By Nyasia duarte Referred To Contact Cardiology Diagnoses Pain of left lower extremity Leg swelling Procedures Lower extremity venous duplex left Shadia Daley, [employer] SEQUESTRATION PL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 [address] [facility], [address] [place] [id number] Referral ID Status Reason Start Date Expiration Date Visits Requested Visits Authorized [id number] Pending Review Perform Procedure 04/12/2023 04/11/2024 1 1 Specialty Diagnoses / Procedures Referred By Nyasia duarte Referred To Contact Cardiology Diagnoses Tachycardia Heart palpitations Acquired hypothyroidism Procedures Holter Or Event Surfacer Operator Callie Mcdonough PA-C [address] [place] [address] [facility] Card1 [address] 1[address] [place] [address] Referral ID Status Reason Start Date Expiration Date V isits Requested Visits Authorized [id number] Authorized 04/18/2023 04/17/2024 1 1 Reason Comments Back Pain Patient complains of pain in her lower back and radiating down her left leg to her foot. Patient states she gets swelling in the left leg from thigh to foot. Patient denied numbness or tingling. Patient rates her pain a 8/10 at this time. Patient states that the GPN increase has helped. She denied side effects. Reason Comments Pain Patient had Euflexxa injections into her left knee in January of 2023, she states she does not feel that they helped her at all. Follow-up Patient had Euflexxa injections into her left knee in January of 2023, she states she does not feel that they helped her at all. Reason Comments COPD Diabetes Specialty Diagnoses / Procedures Referred By Contac t Referred To Contact Pharmacy / Primary Care Diagnoses Chronic obstructive pulmonary disease with acute exacerbation (CMS/HCC) Diabetes mellitus with stage 3 chronic kidney disease (CMS/HCC) Procedures Follow Up In Advanced [facility] - Pharmacy Callie Mcdonough PA-C [address] [place] [address] Referral ID Status Reason Start Date Expiration Date V isits Requested Visits Authorized [id number] Authorized 05/02/2023 05/01/2024 1 1 Specialty Diagnoses / Procedures Referred By Contac t Referred To Contact Radiology Diagnoses Primary osteoarthritis of left knee Procedures MR knee left wo IV contrast Shadia Daley, CARBON SEQUESTRATION PL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 [address] [facility], [address] [place] [address] Referral ID Status Reason Start Date Expiration Date Visits Requested Visits Authorized [id number] Authorized Perform Procedure 05/09/2023 05/08/2024 1 1 Specialty Diagnoses / Procedures Referred By Contac t Referred To Contact Radiology Diagnoses Post-menopausal Procedures XR DEXA bone density Callie Mcdonough PA-C [address] [place] [address] Referral ID Status Reason Start Date Expiration Date Visits Requested Visits Authorized [id number] Pending Review Perform Procedure 3 02/21/2024 1 1 Specialty Diagnoses / Procedures Referred By Contac t Referred To Contact Radiology Diagnoses Encounter for screening mammogram for breast cancer Procedures BI mammo bilateral screening tomosynthesis Callie Mcdonough PA-C [address] [place] [address] Referral ID Status Reason Start Date Expiration Date Visits Requested Visits Authorized [id number] Authorized Perform Procedure 3 02/21/2024 1 1 Reason Comments Pain Mri results Reason Comments Medicare Annual Wellness Visit Subsequen t MEDICARE WELLNESS + 3 MONTH F/U HOLTER MONITOR. LEFT KNEE HAS BEEN BUGGING HER AND IT POPS A LOT. Reason Comments Diabetes COPD Specialty Diagnoses / Procedures Referred By Contac t Referred To Contact Pharmacy Diagnoses Chronic obstructive pulmonary disease with acute exacerbation (CMS/HCC) Diabetes mellitus with stage 3 chronic kidney disease (CMS/HCC) Procedures Follow Up In Clinical Pharmacy Callie Mcdonough PA-C [address] [place] [address] [facility] [address] [place] [address] Referral ID Status Reason Start Date Expiration Date V isits Requested Visits Authorized [id number] Authorized 05/09/2023 05/08/2024 1 1 Reason Comments Leg Pain Specialty Diagnoses / Procedures Referred By Contac t Referred To Contact Radiology Diagnoses Primary osteoarthritis of left knee Procedures XR chest 2 views Fredy Styles MD [address] [facility], [address] [place] [address] Referral ID Status Reason Start Date Expiration Date Visits Requested Visits Authorized [id number] Authorized Perform Procedure 05/27/2023 05/26/2024 1 1 Specialty Diagnoses / Procedures Referred By Nyasia t Referred To Contact Diagnoses Primary osteoarthritis of left knee Procedures ECG 12 Lead Fredy Styles MD [address] [facility], [address] [place] [address] Referral ID Status Reason Start Date Expiration Date V isits Requested Visits Authorized [id number] Authorized 05/27/2023 05/26/2024 1 1 Specialty Diagnoses / Procedures Referred By Svitlanaac t Referred To Contact Cardiology Diagnoses Left leg swelling Procedures Lower extremity venous duplex left Ryan Mehta MD [address] [address] Referral ID Status Reason Start Date Expiration Date Visits Requested Visits Authorized [id number] Authorized Perform Procedure 05/31/2023 05/30/2024 1 1 Reason Comments Error (VOID this visit) Specialty Diagnoses / Procedures Referred By Nyasia t Referred To Contact Diagnoses Arthritis of left knee Arthritis of left knee [M17.12] Procedures [place] ARTHRP KNE CONDYLE&PLATU MEDIAL&LAT COMPARTMENTS Arthroplasty Total Knee Fredy Styles MD [address] [facility], [address] [place] [address] [address] Referral ID Status Reason Start Date Expiration Date Visits Re quested Visits Authorized [id number] 1 1 Reason Comments Post-op TKA 06/10/2023 Specialty Diagnoses / Procedures Referred By Nyasia t Referred To Contact Radiology Diagnoses S/P TKR (total knee replacement), left Procedures XR knee left 3 views Fredy Styles MD [address] [facility], [address] [place] [address] [address] [place] [address] Referral ID Status Reason Start Date Expiration Date Visits Requested Visits Authorized [id number] Authorized Perform Procedure 06/14/2023 06/13/2024 1 1 Reason Comments Med Management FOLLOW UP ON GABAPEN TIN SHE TAKES DAILY FOR HER LOWER BACK PAIN, SHE HAS PAIN WITH WALKING, THROBBING DISCOMFORT, SHE JUST HAD LEFT KNEE REPLACEMENT 5 WEEKS AGO, SHE HAS INCREASED PAIN WITH WALKING SINCE SHE IS DOING HOME HEALTH REHAB, Reason Comments Post-op TKA 06/10/2023 Pain TKA 06/10/2023 Specialty Diagnoses / Procedures Referred By Nyasia t Referred To Contact Radiology Diagnoses S/P TKR (total knee replacement), left Procedures XR knee left 3 views Fredy Styles MD [address] [facility], [address] [place] [address] Referral ID Status Reason Start Date Expiration Date Visits Requested Visits Authorized [id number] Authorized Perform Procedure 07/21/2023 07/20/2024 1 1 Reason Comments Back Pain FOLLOW UP LOWER BACK PAIN, SHE STATES HER LOWER BACK PAIN IS WORSE IN THE MORNING VERY TIGHT ACHE, SHE WILL TAKE IBUPROFEN USE HEATING PAD OR ICE FOR RELIEF, SHE DOES HOME STRETCHING EXERCISES FOR RELIEF, WALKING MAKES HER PAIN WORSE, SHE AMBULATES VERY SLOW AND CANNOT STAND FOR MORE THAN 3 MINUTES, Reason Comments Rapid Heart Rate Pt here via EMS from home, states that she woke up this morning with the feeling that her heart was racing. Recently discharged from inpatient stay, dx with pneumonia. Scheduled Active and Recently Administ ered Medications (unrecognized section and content) Medication Order 10/20/2020 10/21/2020 10/22/2020 insulin regular (HumuLIN R, NovoLIN R) injection 10 Units (COMPLETED) 10 Units, Intravenous, Once, On Tue10/22/20 at 1320, For 1 dose 1342 (Given - Provid er: Renea Trinh RN - Comment: Dose verified with Jessica MOSQUEDA prior to administration) morphine injection 2 mg (COMPLETED) 2 mg, Intravenous, Once, On Tue10/22/20 at 1245, For 1 dose 1254 (Given - Provid er: Renea Trinh RN) ondansetron (ZOFRAN) injection 4 mg (COMPLETED) 4 mg, Intravenous, Once, On Tue10/22/20 at 1245, For 1 dose 1254 (Given - Provid er: Renea Trinh RN) PRN Medication Order 11/18/2020 11/19/2020 11/20/2020 bupivacaine (PF) (MARCAINE) 0.5 % (5 mg/mL) injection (CANCELED) As needed, Starting on Simona 11/20/20 at 0914, Intra-Procedure 0914 (Given - Provid er: Bob Hunt MD - Comment: Left Sacroiliac Joint Injection - Left) lidocaine 1% (PF) (XYLOCAINE-MPF) 10 mg/mL (1 %) injection (CANCELED) As needed, Starting on Simona 11/20/20 at 0912, Intra-Procedure 0912 (Given - Provid er: Bob Hunt MD - Comment: Left Sacroiliac Joint Injection - Left) methylPREDNISolone acetate (DEPO-medrol) injection (CANCELED) As needed, Starting on Simona 11/20/20 at 0914, Intra-Procedure 0914 (Given - Provid er: Bob Hunt MD - Comment: Left Sacroiliac Joint Injection - Left) PRN Medication Order 01/06/2021 01/07/2021 01/08/2021 bupivacaine (PF) (MARCAINE) 0.5 % (5 mg/mL) injection (CANCELED) As needed, Starting on Simona 01/08/21 at 0945, Intra-Procedure 0945 (Given - Provid er: Bob Hunt MD - Comment: Left SI joint multiple injection sites) lidocaine 1% (PF) (XYLOCAINE-MPF) 10 mg/mL (1 %) injection (CANCELED) As needed, Starting on Simona 01/08/21 at 0943, Intra-Procedure 0943 (Given - Provid er: Bob Hunt MD - Comment: multiple injection sites) methylPREDNISolone acetate (DEPO-medrol) injection (CANCELED) As needed, Starting on Simona 01/08/21 at 0945, Intra-Procedure 0945 (Given - Provid er: Bob Hunt MD - Comment: Left SI joint multiple injection sites) Scheduled Medication Order 04/03/2023 04/04/2023 04/05/2023 azithromycin (Zithromax) in dextrose 5 % in water (D5W) 250 mL IV 500 mg 500 mg, intravenous, at 250 mL/hr, Administer over 60 Minutes, Every 24 hours, First dose on Tue04/04/23 at 1700, For 3 doses, Suspected Indication (Select all that apply): Other, Specify: COPD, Type of Therapy: Empiric 2118 (New Bag - Provider: Marylin Pickens, RN)2225 (Stopped - Provider: Marylin Pickens RN) 1700 (Due) cefTRIAXone (Rocephin) 2 g IV in dextrose 5% 50 mL (COMPLETED) 2 g, intravenous, at 100 mL/hr, Administer over 30 Minutes, Once, On Tue04/04/23 at 1150, For 1 dose, premix bag, Suspected Indication (Select all that apply): Pneumonia, Type of Therapy: Empiric 1157 (New Bag - Provider: Willow Rees RN)1229 (Stopped - Provider: Willow Rees RN) cefTRIAXone (Rocephin) 2 g IV in dextrose 5% 50 mL 2 g, intravenous, at 100 mL/hr, Administer over 30 Minutes, Every 24 hours, First dose on Tue04/05/23 at 1200, premix bag, Suspected Indication (Select all that apply): Pneumonia, Type of Therapy: [facility] 1200 (Not Given - Provider: Shelly Buck RN - Reason: Other - Comment: pt lft ama) doxycycline (Vibramycin) in dextrose 5 % in water (D5W) 100 mL IV 100 mg (COMPLETED) 100 mg, intravenous, at 100 mL/hr, Administer over 60 Minutes, Once, On Tue04/04/23 at 1150, For 1 dose, Mini-Bag Plus/ADD-Wells bag, Suspected Indication (Select all that apply): Pneumonia, Type of Therapy: Emp[facility]ic 1231 (New Bag - Provider: Willow Rees RN)1334 (Stopped - Provider: Willow Rees RN) enoxaparin (Lovenox) syringe 40 mg 40 mg, subcutaneous, Every 12 hours scheduled, First dose on Tue04/04/23 at 2100 2119 (Given - Provider: Marylin Pickens, PANDA) 0849 (Given - Provider: Shelly Buck, RN)2100 (Due) insulin lispro (HumaLOG) injection 0-5 Units 0-5 Units, subcutaneous, 4 times daily before meals and nightly, First dose on Tue04/04/23 at 1600, Insulin Lispro Corrective Scale #1 Hypoglycemia protocol Call LIP unit(s) if Blood Glucose is between 0 - 70 mg/dL 0 unit(s) if Blood glucose is between 71-150 1 unit(s) if Blood glucose is between 151-200 2 unit(s) if Blood glucose is between 201-250 3 unit(s) if Blood glucose is between 251-300 4 unit(s) if Blood glucose is between 301-350 5 unit(s) if Blood glucose is between 351-400 Notify provider unit(s) if Blood Glucose is greater than 400 mg/dL 1626 (Given - Provider: Alyssa Vasquez, RN)2119 (Given - Provider: Marylin Pickens, PANDA - Comment: [id number]) 0849 (Given - Provider: Shelly Buck, RN)1100 (Not Given - Provider: Shelly Buck, PANDA - Reason: Other - Comment: lft ama)1600 (Due)2100 (Due) iohexol (OMNIPaque) 350 mg iodine/mL solution 68 mL (COMPLETED) 68 mL, intravenous, Once in imaging, Starting on Tue04/04/23 at 1008, For 1 dose 1009 (Given - Provider: Batool Maldonado) magnesium sulfate IV 4 g (COMPLETED) 4 g, intravenous, at 50 mL/hr, Administer over 2 Hours, Once, On Tue04/04/23 at 1430, For 1 dose 1627 (New Bag - Provider: Alyssa Vasquez, RN)1920 (Stopped - Provider: Marylin Pickens, RN) methylPREDNISolone sod succinate (PF) (SOLU-Medrol) 40 mg/mL injection 40 mg 40 mg, intravenous, Every 8 hours scheduled, First dose on Tue04/04/23 at 1500 1500 (Not Given - Provider: Alyssa Vasquez, RN - Reason: Contraindicated)211 (Given - Provider: Marylin Pickens, RN) 0536 (Given - Provider: Marylin Pickens, PANDA)1400 (Due)2200 (Due) methylPREDNISolone sod succinate (SOLU-Medrol) injection 125 mg (COMPLETED) 125 mg, intravenous, Once, On Tue04/04/23 at 1150, For 1 dose 1157 (Given - Provider: Willow Rees RN) metoprolol tartrate (Lopressor) injection 5 mg 5 mg, intravenous, Once, On Tue04/05/23 at 1200, For 1 dose 1200 (Not Given - Provider: Shelly Buck, RN - Reason: Other - Comment: pt left ama) morphine injection 4 mg (COMPLETED) 4 mg, intravenous, Once, On Tue04/04/23 at 0905, For 1 dose 0914 (Given - Provider: Willow Rees, RN) nicotine (Nicoderm CQ) 21 mg/24 hr patch 1 patch 1 patch, transdermal, Administer over 24 Hours, Daily, First dose on Tue04/04/23 at 1405 1419 (Medication Applied - Provider: Willow Rees RN - Comment: LEFT SHOULDER) 0849 (Medication Applied - Provider: Shelly Buck, RN) ondansetron (Zofran) injection 4 mg (COMPLETED) 4 mg, intravenous, Once, On Tue04/04/23 at 0905, For 1 dose, When administering via IV Push, administer over 3-5 minutes. 0915 (Given - Provider: Willow Rees RN) pantoprazole (ProtoNix) EC tablet 40 mg(Linked Group 1) 40 mg, oral, Daily before breakfast, First dose on Tue04/05/23 at 0700, Do not crush, chew, or split. 0536 (Given - Provid er: Marylin Pickens RN) pantoprazole (ProtoNix) injection 40 mg(Linked Group 1) 40 mg, intravenous, Administer over 2 Minutes, Daily before breakfast, First dose on Tue04/05/23 at 0700, Give if unable to take by mouth. Reconstitute with 10 mL sodium chloride 0.9% for injection. Push over 2 minutes. 0536 (See Alternativ e - Provider: Marylin Pickens RN) psyllium (Metamucil) 3.4 gram packet 1 packet 1 packet, oral, Daily, First dose on Tue04/04/23 at 1500, Bowel Regimen - for prevention of constipation. 1500 (Not Given - Provider: Alyssa Vasquez RN - Reason: Patient/family refused) 0900 (Not Given - Provider: Shelly Buck, RN - Reason: Patient/family refused) sodium chloride 0.9 % bolus 1,000 mL (COMPLETED) 1,000 mL, intravenous, at 1,000 mL/hr, Administer over 1 Hours, Once, On Tue04/04/23 at 1150, For 1 dose 1157 (New Bag - Provider: Willow Rees, RN)1259 (Stopped - Provider: Willow Rees RN) Continuous Medication Order 04/03/2023 04/04/2023 04/05/2023 sodium chloride 0.9% infusion 100 mL/hr, intravenous, Continuous, Starting on Tue04/04/23 at 1500 1819 (New Bag - Provider: Alyssa Vasquez, RN)1820 (Rate/Dose Verify - Provider: Alyssa Vasquez, RN) 0925 (Rate/Dose Verify - Provider: Shelly Buck RN) PRN Medication Order 04/03/2023 04/04/2023 04/05/2023 acetaminophen (Tylenol) oral liquid 650 mg(Linked Group 2) 650 mg, nasogastric tube, Every 4 hours PRN, fever (temp greater than 38.0 C), greater than or equal to 38 C, Starting on Tue04/04/23 at 1456 2103 (See Alternative - Provider: Marylin Pickens RN) acetaminophen (Tylenol) oral liquid 650 mg(Linked Group 3) 650 mg, oral, Every 4 hours PRN, pain mild (1-3), first line, Starting on Tue04/04/23 at 1456, Give oral liquid per feeding tube if present. acetaminophen (Tylenol) suppository 650 mg(Linked Group 2) 650 mg, rectal, Every 4 hours PRN, fever (temp greater than 38.0 C), greater than or equal to 38 C, Starting on Tue04/04/23 at 1456, If ordered PRN for pain, nurse is permitted to administer this medication for higher pain scores based on patient preference? Yes 2103 (See Alternative - Provider: Marylin Pickens RN) acetaminophen (Tylenol) suppository 650 mg(Linked Group 3) 650 mg, rectal, Every 4 hours PRN, pain mild (1-3), first line, Starting on Tue04/04/23 at 1456, Give rectally if unable to administer by mouth or feeding tube., If ordered PRN for pain, nurse is permitted to administer this medication for higher pain scores based on patient preference? Yes acetaminophen (Tylenol) tablet 650 mg(Linked Group 2) 650 mg, oral, Every 4 hours PRN, fever (temp greater than 38.0 C), greater than or equal to 38 C, Starting on Tue04/04/23 at 1456, If ordered PRN for pain, nurse is permitted to administer this medication for higher pain scores based on patient preference? Yes 2103 (Not Given - Provider: Marylin Pickens RN - Reason: Patient/family refused - Comment: pt. cannot take due to hx. cirrhosis) acetaminophen (Tylenol) tablet 650 mg(Linked Group 3) 650 mg, oral, Every 4 hours PRN, pain mild (1-3), first line, Starting on Tue04/04/23 at 1456, If ordered PRN for pain, nurse is permitted to administer this medication for higher pain scores based on patient preference? Yes benzocaine-menthol (Cepastat Sore Throat) 15-3.6 mg lozenge 1 lozenge 1 lozenge, Mouth/Throat, Every 2 hour PRN, sore throat, Starting on Tue04/04/23 at 1456 bisacodyl (Dulcolax) EC tablet 10 mg 10 mg, oral, Daily PRN, constipation, first line, Starting on Tue04/04/23 at 1456, 1st line for treatment of constipation - contact provider if no bowel movement in past 48 hours. Do not crush, chew, or split. calcium carbonate (Tums) chewable tablet 500 mg 500 mg, oral, 4 times daily PRN, heartburn, indigestion, Starting on Tue04/04/23 at 1456 dextromethorphan-guaifenesi n (Robitussin DM) 10-100 mg/5 mL oral liquid 5 mL 5 mL, oral, Every 4 hours PRN, cough, Starting on Tue04/04/23 at 1456 dextrose 10 % in water (D10W) infusion 0.3 g/kg/hr 97.1 kg (291.3 mL/hr), intravenous, Once as needed, For blood glucose less than 70 mg/dL after 30 minutes of intervention. Discontinue once blood glucose reaches 100 mg/dL., Starting on Tue04/04/23 at 1456, For 1 dose, Discontinue once blood glucose reaches 100 mg/dL. dextrose 50 % injection 25 g 25 g, intravenous, Every 15 min PRN, For blood glucose less than or equal to 40 mg/dL, Starting on Tue04/04/23 at 1456, May repeat until blood glucose level reaches 100 mg/dL or greater. Push 2 - 3 mL/minute if patient has secure IV access. glucagon (Glucagen) injection 1 mg 1 mg, intramuscular, Every 15 min PRN, low blood sugar - see comments, For blood glucose less than or equal to 70 mg/dL and no IV access, Starting on Tue04/04/23 at 1456, Give until blood glucose is 100 mg/dL or greater. If patient DOES NOT HAVE secure IV access & patient is unconscious, NPO or is unable to eat or drink. guaiFENesin (Mucinex) 12 hr tablet 600 mg 600 mg, oral, Every 12 hours PRN, congestion, Starting on Tue04/04/23 at 1456, Administer with plenty of fluids to ensure proper action. Do not crush, chew, or split. melatonin tablet 3 mg 3 mg, oral, Nightly PRN, sleep, Starting on Tue04/04/23 at 1456 ondansetron (Zofran) injection 4 mg(Linked Group 4) 4 mg, intravenous, Every 8 hours PRN, nausea/vomiting, first line, Starting on Tue04/04/23 at 1456, 1st Line. Give IV if patient is unable to take orally. If inadequate response within 60 minutes, proceed to next-line agent for same PRN reason or contact provider if no further options ordered. When administering via IV Push, administer over 3-5 minutes. ondansetron ODT (Zofran-ODT) disintegrating tablet 4 mg(Linked Group 4) 4 mg, oral, Every 8 hours PRN, nausea/vomiting, first line, Starting on Tue04/04/23 at 1456, 1st Line. Use oral route first, if possible. If inadequate response within 60 minutes, proceed to next-line agent for same PRN reason or contact provider if no further options ordered. oxyCODONE (Roxicodone) immediate release tablet 5 mg 5 mg, oral, Every 6 hours PRN, pain moderate (4-6), first line, Starting on Tue04/04/23 at 2120, If ordered PRN for pain, nurse is permitted to administer this medication for higher pain scores based on patient preference? Yes 6226 (Given - Provider: Marylin Pickens RN) 8398 (Given - Provider: Marylin Pickens RN) oxygen (O2) therapy inhalation, Continuous PRN - O2/gases, other, Starting on Tue04/04/23 at 1456, Device: Nasal Cannula, Rate in liters per minute: 2 LPM, Keep O2 Sat Above: 92% Linked Groups Order Group 1: pantoprazole (ProtoNix) EC tablet 40 mgJump to med 40 mg, oral, Daily before breakfast, First dose on Tue04/05/23 at 0700
Do not crush, chew, or split.
Or pantoprazole (ProtoNix) injection 40 mgJump to med 40 mg, intravenous, Administer over 2 Minutes, Daily before breakfast, First dose on Tue04/05/23 at 0700
Give if unable to take by mouth. Reconstitute with 10 mL sodium chloride 0.9% for injection. Push over 2 minutes.
Group 2: acetaminophen (Tylenol) tablet 650 mgJump to med 650 mg, oral, Every 4 hours PRN, fever (temp greater than 38.0 C), greater than or equal to 38 C, Starting on Tue04/04/23 at 1456
If ordered PRN for pain, nurse is permitted to administer this medication for higher pain scores based on patient preference? Yes Or acetaminophen (Tylenol) oral liquid 650 mgJump to med 650 mg, nasogastric tube, Every 4 hours PRN, fever (temp greater than 38.0 C), greater than or equal to 38 C, Starting on Tue04/04/23 at 1456 Or acetaminophen (Tylenol) suppository 650 mgJump to med 650 mg, rectal, Every 4 hours PRN, fever (temp greater than 38.0 C), greater than or equal to 38 C, Starting on Tue04/04/23 at 1456
If ordered PRN for pain, nurse is permitted to administer this medication for higher pain scores based on patient preference? Yes Group 3: acetaminophen (Tylenol) tablet 650 mgJump to med 650 mg, oral, Every 4 hours PRN, pain mild (1-3), first line, Starting on Tue04/04/23 at 1456
If ordered PRN for pain, nurse is permitted to administer this medication for higher pain scores based on patient preference? Yes Or acetaminophen (Tylenol) oral liquid 650 mgJump to med 650 mg, oral, Every 4 hours PRN, pain mild (1-3), first line, Starting on Tue04/04/23 at 1456
Give oral liquid per feeding tube if present.
Or acetaminophen (Tylenol) suppository 650 mgJump to med 650 mg, rectal, Every 4 hours PRN, pain mild (1-3), first line, Starting on Tue04/04/23 at 1456
Give rectally if unable to administer by mouth or feeding tube.
If ordered PRN for pain, nurse is permitted to administer this medication for higher pain scores based on patient preference? Yes Group 4: ondansetron ODT (Zofran-ODT) disintegrating tablet 4 mgJump to med 4 mg, oral, Every 8 hours PRN, nausea/vomiting, first line, Starting on Tue04/04/23 at 1456
1st Line. Use oral route first, if possible. If inadequate response within 60 minutes, proceed to next-line agent for same PRN reason or contact provider if no further options ordered.
Or ondansetron (Zofran) injection 4 mgJump to med 4 mg, intravenous, Every 8 hours PRN, nausea/vomiting, first line, Starting on Tue04/04/23 at 1456
1st Line. Give IV if patient is unable to take orally. If inadequate response within 60 minutes, proceed to next-line agent for same PRN reason or contact provider if no further options ordered. When administering via IV Push, administer over 3-5 minutes.
Scheduled Medication Order 05/28/2023 05/29/2023 05/30/2023 apixaban (Eliquis) tablet 10 mg (COMPLETED) 10 mg, oral, Once, On Tue05/30/23 at 2220, For 1 dose 2235 (Given - Provid er: René Shook RN) ketorolac (Toradol) injection 15 mg (COMPLETED) 15 mg, intravenous, Once, On Tue05/30/23 at 2220, For 1 dose 2238 (Given - Provid er: René Shook RN) Scheduled Medication Order 06/10/2023 06/11/2023 06/12/2023 acetaminophen (Tylenol) tablet 650 mg 650 mg, oral, Every 6 hours scheduled, First dose on Tue06/10/23 at 1800, Phase II/On Unit, If ordered PRN for pain, nurse is permitted to administer this medication for higher pain scores based on patient preference? Yes 1800 (Not Given - Provider: Mignon Starkey RN - Reason: Patient/family refused) 0000 (Not Given - Provider: Minnie Power RN - Reason: Patient/family refused)0600 (Not Given - Provider: Minnie Power RN - Reason: Patient/family refused)1200 (Not Given - Provider: Callie Jenkins RN - Reason: Patient/family refused)1800 (Not Given - Provider: Callie Jenkins RN - Reason: Patient/family refused) 0000 (Not Given - Provider: Roopa Jimenez RN - Reason: Patient/family refused)0600 (Not Given - Provider: Roopa Jimenez RN - Reason: Patient/family refused)1200 (Not Given - Provider: Aleena Sanchez RN - Reason: Patient/family refused)1800 (Due) albuterol 2.5 mg /3 mL (0.083 %) nebulizer solution 2.5 mg (COMPLETED) 2.5 mg, nebulization, Once, On Tue06/10/23 at 0900, For 1 dose, Preprocedure 0950 (Given - Provider: Shazia Danielle, [employer]) albuterol 2.5 mg /3 mL (0.083 %) nebulizer solution 2.5 mg (CANCELED) 2.5 mg, nebulization, Every 4 hours while awake RT, First dose (after last modification) on Tue06/10/23 at 1800 1850 (Given - Provider: Gonzalo Gibbons, [employer]) aspirin EC tablet 81 mg 81 mg, oral, 2 times daily, First dose on Tue06/10/23 at 2100, Phase II/On Unit, Do not crush, chew, or split. 2022 (Given - Provider: Minnie Power RN) 0831 (Given - Provider: Callie Jenkins, PANDA)2139 (Given - Provider: Roopa Jimenez, PANDA) 0840 (Given - Provider: Aleena Sanchez RN)2100 (Due) atorvastatin (Lipitor) tablet 20 mg 20 mg, oral, Daily, First dose on Tue06/10/23 at 1915 2130 (Given - Provider: Minnie Power, PANDA) 0833 (Given - Provider: Callie Jenkins RN) 0841 (Given - Provider: Aleena Sanchez RN) budesonide (Pulmicort) 0.5 mg/2 mL nebulizer solution 0.5 mg 0.5 mg, nebulization, 2 times daily RT, First dose on Tue06/10/23 at 2015, Rinse mouth with water after use to reduce aftertaste and incidence of candidiasis. Do not swallow. 2014 (Not Given - Provider: Gonzalo Gibbons, [employer]INATOR - Reason: Contraindicated) 0639 (Given - Provider: Evelyn Forbes RRT)181 (Given - Provider: Fadia Uribe RRT) 0647 (Given - Provider: Evelyn Forbes RRT)1900 (Due) ceFAZolin in dextrose (iso-os) (Ancef) IVPB 2 g (COMPLETED) 2 g, intravenous, Administer over 30 Minutes, Once, On Tue06/10/23 at 0900, For 1 dose, Intraprocedure, Administer within 60 minutes prior to incision. premix bag, Dosing of this medication varies based on severity of illness. Does this patient have sepsis or concern for sepsis (probable or documented infection plus systemic manifestations of infection)? No, Suspected Indication (Select all that apply): Surgical Prophylaxis 1050 (New Bag - Provider: Amanda Lynch RN - Comment: delay in OR on previous case)1120 (Stopped - Provider: Mignon Starkey RN) ceFAZolin in dextrose (iso-os) (Ancef) IVPB 2 g (COMPLETED) 2 g, intravenous, Administer over 30 Minutes, Every 8 hours, First dose on Tue06/10/23 at 1600, For 2 doses, Phase II/On Unit, Start 8 hours after pre-op dose given. premix bag, Dosing of this medication varies based on severity of illness. Does this patient have sepsis or concern for sepsis (probable or documented infection plus systemic manifestations of infection)? No, Suspected Indication (Select all that apply): Surgical Prophylaxis 1658 (New Bag - Provider: Mignon Starkey RN)1728 (Stopped - Provider: Mignon Starkey RN) 0021 (New Bag - Provider: Minnie Power RN)0051 (Stopped - Provider: Minnie Power RN) celecoxib (CeleBREX) capsule 200 mg (COMPLETED) 200 mg, oral, Once, On Tue06/10/23 at 0900, For 1 dose, Preprocedure, 1 hour prior to incision Capsules may be opened and sprinkled on a spoonful of cold or room temperature applesauce. 0910 (Given - Provider: Amanda Lynch RN) cyanocobalamin (Vitamin B-12) tablet 1,000 mcg 1,000 mcg, oral, Every other day, First dose on Tue06/11/23 at 0900 0831 (Given - Provider: Callie Jenkins RN) docusate sodium (Colace) capsule 100 mg 100 mg, oral, 2 times daily, First dose on Tue06/10/23 at 2100, Phase II/On Unit, Bowel Regimen - for prevention of constipation Hold for loose stools 2099 (Not Given - Provider: Minnie Power RN - Reason: Patient/family refused) 0832 (Given - Provider: Callie Jenkins RN)2138 (Given - Provider: Roopa Jimenez RN) 0841 (Given - Provider: Aleena Sanchez RN)2100 (Due) DULoxetine (Cymbalta) DR capsule 20 mg 20 mg, oral, Daily, First dose on Tue06/10/23 at 1915, Do not crush or chew. 2129 (Given - Provider: Minnie Power RN) 0833 (Given - Provider: Callie Jenkins RN) 0840 (Given - Provider: Aleena Sanchez, PANDA) escitalopram (Lexapro) tablet 20 mg 20 mg, oral, Daily, First dose on Tue06/10/23 at 2000, Therapeutic interchange for Celexa 2022 (Given - Provider: Minnie Power RN) 0831 (Given - Provider: Callie Jenkins RN) 0840 (Given - Provider: Aleena Sanchez RN) famotidine PF (Pepcid) injection 20 mg (COMPLETED) 20 mg, intravenous, Once, On Tue06/10/23 at 0900, For 1 dose, Preprocedure 0955 (Given - Provider: Amanda Lynch RN) formoterol (Perforomist) 20 mcg/2 mL nebulizer solution 20 mcg 20 mcg, nebulization, 2 times daily RT, First dose on Tue06/10/23 at 2014 2014 (Not Given - Provider: Gonzalo Gibbons, ZAHIDA - Reason: Contraindicated) 0632 (Given - Provider: Evelyn Forbes, ZAHIDA)1808 (Given - Provider: Fadia Uribe RRT) 0638 (Given - Provider: Evelyn Forbes RRT)1900 (Due) gabapentin (Neurontin) capsule 300 mg 300 mg, oral, 3 times daily, First dose (after last modification) on Tue06/11/23 at 1500, Capsules may be opened and sprinkled on food (eg, applesauce, orange juice, pudding). Capsules may be opened and sprinkled on food (eg, applesauce, orange juice, pudding 1424 (Given - Provider: Callie Jenkins RN)2138 (Given - Provider: Roopa Jimenez RN) 0841 (Given - Provider: Aleena Sanchez RN)1429 (Given - Provider: Aleena Sanchez RN)2100 (Due) gabapentin (Neurontin) capsule 600 mg (CANCELED) 600 mg, oral, 3 times daily, First dose on Tue06/10/23 at 2100, Capsules may be opened and sprinkled on food (eg, applesauce, orange juice, pudding). Capsules may be opened and sprinkled on food (eg, applesauce, orange juice, pudding 2021 (Given - Provider: Minnie Power RN) 0831 (Given - Provider: Callie Jenkins RN) haloperidol lactate (Haldol) injection 2 mg (COMPLETED) 2 mg, intravenous, Once, On Tue06/12/23 at 0415, For 1 dose, Patients receiving IV haloperidol should be on continuous cardiac monitoring. 0356 (Given - Provid er: Roopa Jimenez RN) insulin glargine (Lantus) injection 40 Units (CANCELED) 40 Units, subcutaneous, 2 times daily, First dose on Tue06/10/23 at 2100 2131 (Given - Provider: Minnie Power RN) insulin glargine (Lantus) injection 42 Units 42 Units, subcutaneous, 2 times daily, First dose (after last modification) on 06/11/23 at 0915 1028 (Given - Provider: Callie Jenkins RN)2139 (Given - Provider: Roopa Jimenez RN) 0842 (Given - Provider: Aleena Sanchez, RN)2100 (Due) insulin lispro (HumaLOG) injection 0-10 Units 0-10 Units, subcutaneous, 3 times daily with meals, First dose on 06/11/23 at 0915, Insulin Lispro Corrective Scale #2 Hypoglycemia protocol Call LIP unit(s) if Blood Glucose is between 0 - 70 mg/dL 0 unit(s) if Blood glucose is between 71-150 2 unit(s) if Blood glucose is between 151-200 4 unit(s) if Blood glucose is between 201-250 6 unit(s) if Blood glucose is between 251-300 8 unit(s) if Blood glucose is between 301-350 10 unit(s) if Blood glucose is between 351-400 Notify provider unit(s) if Blood Glucose is greater than 400 mg/dL 0915 (Not Given - Provider: Callie Jenkins RN - Reason: Other - Comment: Gave other order this AM)1224 (Given - Provider: Callie Jenkins RN)1705 (Given - Provider: Callie Jenkins RN) 0843 (Given - Provider: Aleena Sanchez, RN)1219 (Given - Provider: Aleena Sanchez, RN)1700 (Due) insulin lispro (HumaLOG) injection 0-5 Units (CANCELED) 0-5 Units, subcutaneous, 3 times daily with meals, First dose on 06/11/23 at 0800, Insulin Lispro Corrective Scale #1 Hypoglycemia protocol Call LIP unit(s) if Blood Glucose is between 0 - 70 mg/dL 0 unit(s) if Blood glucose is between 71-150 1 unit(s) if Blood glucose is between 151-200 2 unit(s) if Blood glucose is between 201-250 3 unit(s) if Blood glucose is between 251-300 4 unit(s) if Blood glucose is between 301-350 5 unit(s) if Blood glucose is between 351-400 Notify provider unit(s) if Blood Glucose is greater than 400 mg/dL 0834 (Given - Provider: Callie Jenkins RN) levothyroxine (Synthroid, Levoxyl) tablet 50 mcg 50 mcg, oral, Daily, First dose on Tue06/10/23 at 1914 2022 (Given - Provider: Minnie Power, RN) 0833 (Given - Provider: Callie Jenkins RN) 0841 (Given - Provider: Aleena Sanchez, RN) LORazepam (Ativan) injection 2 mg 2 mg, intravenous, Administer over 5 Minutes, Once, On Tue06/12/23 at 0415, For 1 dose, Give in case haldol did not help wth the agitation 414 (Not Given - Provider: Roopa Jimenez RN - Reason: Contraindicated - Comment: haldol helped with agitation) magnesium oxide (Mag-Ox) tablet 400 mg 400 mg, oral, 3 times daily, First dose on Tue06/10/23 at 2099 2022 (Given - Provider: Minnie Power RN) 0833 (Given - Provider: Callie Jenkins RN)1424 (Given - Provider: Callie Jenkins RN)2138 (Given - Provider: Roopa Jimenez RN) 0841 (Given - Provider: Aleena Sanchez RN)142 (Given - Provider: Aleena Sanchez RN)2099 (Due) metoprolol tartrate (Lopressor) tablet 50 mg 50 mg, oral, 2 times daily, First dose on Tue06/10/23 at 2099 2022 (Given - Provider: Minnie Power RN) 0833 (Given - Provider: Callie Jenkins RN)2138 (Given - Provider: Roopa Jimenez RN) 0841 (Given - Provider: Aleena Sanchez, PANDA)2099 (Due) midazolam (Versed) injection 2 mg (COMPLETED) 2 mg, intravenous, Once, On Tue06/10/23 at 0900, For 1 dose, Preprocedure 918 (Given - Provider: Amanda Lynch RN) montelukast (Singulair) tablet 10 mg 10 mg, oral, Nightly, First dose on Tue06/10/23 at 2099 2022 (Given - Provider: Minnie Power RN) 2138 (Given - Provider: Roopa Jimenez RN) 2099 (Due) nystatin (Mycostatin) 100,000 unit/gram powder Topical, 2 times daily, First dose on Tue06/10/23 at 2100, Apply to skin 2129 (Given - Provider: Minnie Power RN) 0839 (Given - Provider: Callie Jenkins, PANDA)2099 (Not Given - Provider: Roopa Jimenez RN - Reason: Patient/family refused) 1033 (Given - Provider: Aleena Sanchez RN - Comment: waiting for patient to shower)2099 (Due) ondansetron (Zofran) injection 4 mg (COMPLETED) 4 mg, intravenous, Once, On Tue06/10/23 at 0900, For 1 dose, Preprocedure, When administering via IV Push, administer over 3-5 minutes. 09 (Given - Provider: Amanda Lynch RN) pantoprazole (ProtoNix) EC tablet 40 mg 40 mg, oral, Daily before breakfast, First dose on Tue06/11/23 at 0700, Therapeutic Interchange for omeprazole Do not crush, chew, or split. 0654 (Given - Provider: Minnie Power RN) 0841 (Given - Provider: Aleena Sanchez RN) polyethylene glycol (Glycolax, Miralax) packet 17 g 17 g, oral, Daily, First dose on Tue06/12/23 at 1415 1427 (Given - Provid er: Aleena Sanchez RN) potassium chloride CR (Klor-Con) ER tablet 10 mEq (CANCELED) 10 mEq, oral, Daily, First dose on Tue06/10/23 at 1915, Best given with food and a glass of water to minimize gastric irritation. Do not crush, chew, or split. 2023 (Given - Provider: Minnie Power RN) 0832 (Not Given - Provider: Callie Jenkins, PANDA - Reason: Other) povidone-iodine 5 % kit kit (COMPLETED) Topical, Once, On Tue06/10/23 at 0900, For 1 dose, Preprocedure 0900 (Given - Provider: Amanda Lynch RN - Comment: no barcode to scan) sertraline (Zoloft) tablet 50 mg 50 mg, oral, Daily, First dose on Tue06/10/23 at 1915 1915 (Due)1932 (Held by provider - Provider: Jasmyne Soliz MD - Reason: Other) 0900 (Canceled Entry - Provider: Callie Jenkins RN) 0900 (Not Given - Provider: Aleena Sanchez RN - Reason: See Provider Order) sodium polystyrene (Kayexalate) suspension 30 g (COMPLETED) 30 g, oral, Once, On 06/11/23 at 0915, For 1 dose, Do not administer if ileus or suspected bowel obstruction is present. 0931 (Given - Provider: Callie Jenkins RN) sodium zirconium cyclosilicate (Lokelma) packet 5 g (COMPLETED) 5 g, oral, Once, On 06/11/23 at 1530, For 1 dose 1705 (Given - Provider: Callie Jenkins RN) tiotropium (Spiriva) 18 mcg per inhalation capsule 18 mcg 18 mcg (1 capsule), inhalation, Daily RT, First dose on 06/11/23 at 0700 0846 (Given - Provider: Evelyn Forbes, ZAHIDA) 0814 (Given - Provider: Evelyn Forbes RRT) tranexamic acid (Lysteda) tablet 1,950 mg (COMPLETED) 1,950 mg, oral, Once, On Tue06/10/23 at 0900, For 1 dose, Preprocedure, 90 minutes prior to procedure Do not crush, chew, or split. 0910 (Given - Provider: Amanda Lynch RN) tranexamic acid (Lysteda) tablet 1,950 mg (COMPLETED) 1,950 mg, oral, Once, On Tue06/10/23 at 1500, For 1 dose, Recovery & On Unit, First dose administered 6 hours post procedure. Do not crush, chew, or split., Tranexamic Acid Indication: Surgical Prophylaxis: Orthopedic 1654 (Given - Provider: Mignon Starkey RN) tranexamic acid (Lysteda) tablet 1,950 mg (COMPLETED) 1,950 mg, oral, Once, On 06/11/23 at 0600, For 1 dose, Phase II/On Unit, Second dose administered post-op day 1 at 0600. Do not crush, chew, or split., Tranexamic Acid Indication: Surgical Prophylaxis: Orthopedic 0712 (Given - Provider: Minnie oPwer, PANDA) traZODone (Desyrel) tablet 100 mg 100 mg, oral, Nightly, First dose on Tue06/10/23 at 2100 2022 (Given - Provider: Minnie Power RN) 2138 (Given - Provider: Roopa Jimenez RN) 2099 (Due) vancomycin 1,500 mg in dextrose 5 % in water (D5W) 500 mL IV (COMPLETED) 1,500 mg, intravenous, at 333.3 mL/hr, Administer over 90 Minutes, Once, On Tue06/10/23 at 0915, For 1 dose, VialMate Adapter, Dosing of this medication varies based on severity of illness. Does this patient have sepsis or concern for sepsis (probable or documented infection plus systemic manifestations of infection)? No, Suspected Indication (Select all that apply): Surgical Prophylaxis 0922 (New Bag - Provider: Amanda Lynch RN)1052 (Stopped - Provider: Mignon Starkey RN) Continuous Medication Order 06/10/2023 06/11/2023 06/12/2023 lactated Ringer's infusion (CANCELED) 75 mL/hr, intravenous, Continuous, Starting on Tue06/10/23 at 0900 0903 (New Bag - Provider: Amanda Lynch RN)1109 (Continued by Anesthesia - Provider: Shreyas Jorgensen MD)1119 (Anesthesia Volume Adjustment - Provider: Shreyas Jorgensen MD)1246 (Rate/Dose Change - Provider: Shreyas Jorgensen MD)1317 (Stopped - Provider: Shreyas Jorgensen MD) lactated Ringer's infusion (CANCELED) 75 mL/hr, intravenous, Continuous, Starting on Tue06/10/23 at 1500, For 24 hours, Phase II/On Unit 1459 (New Bag - Provider: Mignon Starkey RN)1533 (Rate/Dose Verify - Provider: Mignon Starkey RN) 0541 (Rate/Dose Verify - Provider: Minnie Power RN)0842 (Stopped - Provider: Callie Jenkins RN) oxygen (O2) therapy 2 L/min, inhalation, Continuous, Starting on Tue06/10/23 at 1500, Phase II/On Unit, Titrate supplemental oxygen to maintain oxygen saturation greater than or equal to 92%., Device: Nasal Cannula, Rate in liters per minute: 2 LPM, Keep O2 Sat Above: 92% 1500 (Rate/Dose Verify - Provider: Shazia Danielle RRT) sodium chloride 0.9% infusion (CANCELED) 75 mL/hr, intravenous, Continuous, Starting on Tue06/10/23 at 1900 1900 (Canceled Entry - Provider: Mignon Starkey RN) 0913 (New Bag - Provider: Callie Jenkins, PANDA)1445 (Stopped - Provider: Callie Jenkins RN) PRN Medication Order 06/10/2023 06/11/2023 06/12/2023 albuterol 2.5 mg /3 mL (0.083 %) nebulizer solution 2.5 mg (CANCELED) 2.5 mg, nebulization, Every 6 hours PRN, wheezing, Starting on Tue06/10/23 at 1426 1426 (Given - Provider: Shazia Danielle RRT) albuterol 2.5 mg /3 mL (0.083 %) nebulizer solution 2.5 mg 2.5 mg, nebulization, Every 4 hours PRN, wheezing, shortness of breath, Starting on Tue06/10/23 at 1944 2238 (Given - Provider: Gonzalo Gibbons RRT) 0253 (Given - Provider: Gonzalo Gibbons RRT)1023 (Given - Provider: Evelyn Forbes RRT)1350 (Given - Provider: Evelyn Forbes RRT)1802 (Not Given - Provider: Fadia Uribe RRT - Reason: Other - Comment: perforomist given instead)2220 (Given - Provider: Fadia Uribe RRT) 0202 (Given - Provider: Fadia Uribe RRT)0918 (Not Given - Provider: Evelyn Forbes RRT - Reason: Patient/family refused)1342 (Given - Provider: Evelyn Forbes RRT) benzocaine-menthol (Cepastat Sore Throat) 15-3.6 mg lozenge 1 lozenge 1 lozenge, Mouth/Throat, Every 4 hours PRN, sore throat, Starting on Tue06/10/23 at 1437, Phase II/On Unit bisacodyl (Dulcolax) EC tablet 10 mg 10 mg, oral, Daily PRN, constipation, first line, Starting on Tue06/10/23 at 1437, Phase II/On Unit, 1st line for treatment of constipation - contact provider if no bowel movement in past 48 hours. Do not crush, chew, or split. dextrose 10 % in water (D10W) infusion 0.3 g/kg/hr 104 kg (312 mL/hr), intravenous, Once as needed, For blood glucose less than 70 mg/dL after 30 minutes of intervention. Discontinue once blood glucose reaches 100 mg/dL., Starting on Tue06/10/23 at 1846, For 1 dose, Discontinue once blood glucose reaches 100 mg/dL. dextrose 50 % injection 25 g 25 g, intravenous, Every 15 min PRN, For blood glucose less than or equal to 40 mg/dL, Starting on Tue06/10/23 at 1846, May repeat until blood glucose level reaches 100 mg/dL or greater. Push 2 - 3 mL/minute if patient has secure IV access. dicyclomine (Bentyl) capsule 20 mg 20 mg, oral, 4 times daily PRN, Abd pain, Starting on Tue06/10/23 at 1853 diphenhydrAMINE (BENADryl) liquid 12.5 mg 12.5 mg, oral, Every 6 hours PRN, itching, Starting on Tue06/10/23 at 1437, Phase II/On Unit glucagon (Glucagen) injection 1 mg 1 mg, intramuscular, Every 15 min PRN, low blood sugar - see comments, For blood glucose less than or equal to 70 mg/dL and no IV access, Starting on Tue06/10/23 at 1846, Give until blood glucose is 100 mg/dL or greater. If patient DOES NOT HAVE secure IV access & patient is unconscious, NPO or is unable to eat or drink. HYDROmorphone (Dilaudid) injection 0.5 mg (CANCELED) 0.5 mg, intravenous, Every 4 hours PRN, pain breakthrough, Starting on Tue06/10/23 at 1437, Phase II/On Unit 1814 (Given - Provider: Mignon Starkey RN) 0220 (Given - Provider: Minnie Power RN) 0353 (Given - Provider: Roopa Jimenez RN - Comment: give per Dr. Snow for agitation) ipratropium-albuteroL (Duo-Neb) 0.5-2.5 mg/3 mL nebulizer solution 3 mL 3 mL, nebulization, 3 times daily PRN, wheezing, Starting on Tue06/10/23 at 1854 naloxone (Narcan) injection 0.2 mg 0.2 mg, intravenous, Every 5 min PRN, opioid reversal, Sedation, Starting on Tue06/10/23 at 1437, Phase II/On Unit, If respiratory rate is less than 8 breaths/minute or patient is difficult to arouse stop any narcotics and contact physician. Administer slow IV push. Repeat as ordered until patient's respiratory rate is greater than 12 breaths/minute. ondansetron (Zofran) injection 4 mg(Linked Group 1) 4 mg, intravenous, Every 8 hours PRN, nausea/vomiting, first line, Starting on Tue06/10/23 at 1437, Phase II/On Unit, 1st Line. Give IV if patient is unable to take orally. If inadequate response within 60 minutes, proceed to next-line agent for same PRN reason or contact provider if no further options ordered. When administering via IV Push, administer over 3-5 minutes. ondansetron ODT (Zofran-ODT) disintegrating tablet 4 mg(Linked Group 1) 4 mg, oral, Every 8 hours PRN, nausea/vomiting, first line, Starting on Tue06/10/23 at 1437, Phase II/On Unit, 1st Line. Patient should allow tablet to dissolve on tongue. Do not remove from blister pack until just before administering. If inadequate response within 60 minutes, proceed to next-line agent for same PRN reason or contact provider if no further options ordered. oxyCODONE (Roxicodone) immediate release tablet 10 mg 10 mg, oral, Every 4 hours PRN, pain severe (7-10), first line, Starting on Tue06/10/23 at 1437, Phase II/On Unit, If ordered PRN for pain, nurse is permitted to administer this medication for higher pain scores based on patient preference? Yes 3509 (Given - Provider: Mignon Starkey RN)5847 (Given - Provider: Minnie Power RN) 0831 (Given - Provider: Callie Jenkins, PANDA)1424 (Given - Provider: Callie Jenkins RN)2138 (Given - Provider: Roopa Jimenez RN) oxyCODONE (Roxicodone) immediate release tablet 5 mg 5 mg, oral, Every 4 hours PRN, pain moderate (4-6), first line, Starting on Tue06/10/23 at 1437, Phase II/On Unit, If ordered PRN for pain, nurse is permitted to administer this medication for higher pain scores based on patient preference? Yes 0853 (Given - Provider: Aleena Sanchez RN)1252 (Given - Provider: Aleena Sanchez RN) oxygen (O2) therapy inhalation, Continuous PRN - O2/gases, other, Starting on Tue06/10/23 at 1430, May use oxymask, Device: Nasal Cannula, Rate in liters per minute: 2 LPM 1426 (Start - Provider: Shazia Danielle RRT)1850 (Start - Provider: Gonzalo Gibbons RRT)2200 (Rate/Dose Verify - Provider: Gonzalo Gibbons RRT) 0200 (Rate/Dose Verify - Provider: Gonzalo Gibbons RRT)0633 (Rate/Dose Verify - Provider: Evelyn Forbes RRT)1025 (Rate/Dose Verify - Provider: Evelyn Forbes RRT)1148 (Rate/Dose Verify - Provider: Evelyn Forbes RRT)1350 (Rate/Dose Verify - Provider: Evelyn Forbes RRT)1808 (Rate/Dose Verify - Provider: Fadia Uribe RRT)2221 (Rate/Dose Verify - Provider: Fadia Uribe RRT) 0202 (Rate/Dose Verify - Provider: Fadia Uribe RRT)0640 (Rate/Dose Verify - Provider: Evelyn Forbes RRT)0930 (Rate/Dose Verify - Provider: Evelyn Forbes RRT)1138 (Rate/Dose Verify - Provider: Evelyn Forbes RRT)1342 (Rate/Dose Verify - Provider: Evelyn Forbes RRT) ropivacaine-epinephrine- clonidine-ketorolac 2.46-0.005- 0.0008-0.3mg/mL periarticular syringe (CANCELED) As needed, Starting on Tue06/10/23 at 1231, Intraprocedure 1231 (Given - Provider: Fredy Styles MD) tiZANidine (Zanaflex) tablet 4 mg 4 mg, oral, Every 6 hours PRN, muscle spasms, Starting on Tue06/10/23 at 1853 0833 (Given - Provider: Callie Jenkins, PANDA) 1253 (Given - Provider: Aleena Sanchez RN) Linked Groups Order Group 1: ondansetron ODT (Zofran-ODT) disintegrating tablet 4 mgJump to med 4 mg, oral, Every 8 hours PRN, nausea/vomiting, first line, Starting on Tue06/10/23 at 1437, Phase II/On Unit
1st Line. Patient should allow tablet to dissolve on tongue. Do not remove from blister pack until just before administering. If inadequate response within 60 minutes, proceed to next-line agent for same PRN reason or contact provider if no further options ordered.
Or ondansetron (Zofran) injection 4 mgJump to med 4 mg, intravenous, Every 8 hours PRN, nausea/vomiting, first line, Starting on Tue06/10/23 at 1437, Phase II/On Unit
1st Line. Give IV if patient is unable to take orally. If inadequate response within 60 minutes, proceed to next-line agent for same PRN reason or contact provider if no further options ordered. When administering via IV Push, administer over 3-5 minutes.
Scheduled Medication Order 04/12/2023 04/13/2023 04/14/2023 atorvastatin (Lipitor) tablet 20 mg 20 mg, oral, Nightly, First dose on Tue04/13/23 at 2099 2038 (Given - Provider: Norah Varenr RN) 2099 (Due) azithromycin (Zithromax) tablet 500 mg 500 mg, oral, Every 24 hours scheduled, First dose on Simona 04/14/23 at 0900, Suspected Indication (Select all that apply): Other, Specify: COPD, Type of Therapy: Empiric 1037 (Given - Provider: Olga Hugo RN) budesonide (Pulmicort) 0.5 mg/2 mL nebulizer solution 0.5 mg 0.5 mg, nebulization, 2 times daily RT, First dose on Tue04/13/23 at 0915, Rinse mouth with water after use to reduce aftertaste and incidence of candidiasis. Do not swallow. 1145 (Given - Provider: Sherry Langston PARKS RECREATION COORDINATOR - Comment: new med order)1841 (Given - Provider: Radha Byrne RRT) 0635 (Given - Provider: Demarcus Gerardo, ZAHIDA)1800 (Due - Provider: Radha Byrne RRT) cilostazol (Pletal) tablet 50 mg 50 mg, oral, 2 times daily, First dose on Tue04/13/23 at 0900 1418 (Given - Provider: Olga Hugo RN)2038 (Given - Provider: Norah Varner RN) 0836 (Given - Provider: Olga Hugo RN)2100 (Due) cyanocobalamin (Vitamin B-12) tablet 1,000 mcg 1,000 mcg, oral, Every other day, First dose on Tue04/14/23 at 0900 0836 (Given - Provider: Olga Hugo RN) DULoxetine (Cymbalta) DR capsule 20 mg 20 mg, oral, Daily, First dose on Tue04/13/23 at 0900, Do not crush or chew. 1337 (Given - Provider: Olga Hugo RN) 0836 (Given - Provider: Olga Hugo RN) enoxaparin (Lovenox) syringe 40 mg 40 mg, subcutaneous, Every 12 hours scheduled, First dose on Tue04/13/23 at 1015 1154 (Given - Provider: Olga Hugo RN)2037 (Given - Provider: Norah Varner RN) 0836 (Given - Provider: Olga Hugo RN)2100 (Due) escitalopram (Lexapro) tablet 20 mg 20 mg, oral, Nightly, First dose on Tue04/13/23 at 2100, Interchanged for citalopram 40 mg daily 2038 (Given - Provider: Norah Varner, PANDA) 2100 (Due) gabapentin (Neurontin) capsule 600 mg 600 mg, oral, 3 times daily, First dose on Tue04/13/23 at 0900, Capsules may be opened and sprinkled on food (eg, applesauce, orange juice, pudding). Capsules may be opened and sprinkled on food (eg, applesauce, orange juice, pudding 1154 (Given - Provider: Olga Hugo RN)1541 (Given - Provider: Olga Hugo RN)2038 (Given - Provider: Norah Varner RN) 0836 (Given - Provider: Olga Hugo RN)1500 (Due)2100 (Due) insulin glargine (Lantus) injection 30 Units 30 Units, subcutaneous, 2 times daily, First dose on Tue04/13/23 at 2100 2038 (Given - Provider: Norah Varner RN) 0842 (Given - Provider: Olga Hugo RN)2099 (Due) insulin lispro (HumaLOG) injection 0-15 Units 0-15 Units, subcutaneous, 3 times daily with meals, First dose on Tue04/13/23 at 0900, Blood Glucose Target - Daytime (mg/dL): 150, Blood Glucose Target - Bedtime (mg/dL): 150, Blood Glucose Target - Overnight (mg/dL): 150, Hyperglycemia Correction Factor - Daytime: 50, Hyperglycemia Correction Factor - Bedtime: 50, Hyperglycemia Correction Factor - Overnight: 50, Carb Ratio - Breakfast (g/unit): 15, Carb Ratio - Lunch (g/unit): 15, Carb Ratio - Dinner (g/unit): 15, Carb Ratio - Bedtime (g/unit): 15, Carb Ratio - Overnight (g/unit): 15 0900 (Not Given - Provider: Olga Hugo RN - Reason: Contraindicated)1200 (Not Given - Provider: Olga Hugo RN - Reason: Contraindicated - Comment: BS 82)1700 (Not Given - Provider: Olga Hugo RN - Reason: Contraindicated) 0800 (Not Given - Provider: Olga Hugo RN - Reason: Contraindicated)1222 (Given - Provider: Olga Hugo RN)1700 (Due) iohexol (OMNIPaque) 350 mg iodine/mL solution 58 mL (COMPLETED) 58 mL, intravenous, Once in imaging, Starting on Tue04/13/23 at 0556, For 1 dose 0557 (Given - Provider: Janelle Lomeli) ipratropium-albuteroL (Duo-Neb) 0.5-2.5 mg/3 mL nebulizer solution 3 mL 3 mL, nebulization, Every 6 hours RT, First dose on Tue04/13/23 at 1200 1142 (Given - Provider: Sherry Langston, PARKS RECREATION COORDINATOR)1840 (Given - Provider: Radha Byrne, PARKS RECREATION COORDINATOR) 0052 (Given - Provider: Radha Byrne RRT)0635 (Given - Provider: Demarcus Gerardo RRT)1142 (Given - Provider: Sherry Langston PARKS RECREATION COORDINATOR)1800 (Due - Provider: Sherry Langston RRT) levothyroxine (Synthroid, Levoxyl) tablet 25 mcg 25 mcg, oral, Daily, First dose on Tue04/14/23 at 0600 0520 (Given - Provider: Norah Varner RN) levothyroxine (Synthroid, Levoxyl) tablet 50 mcg 50 mcg, oral, Nightly, First dose on Tue04/13/23 at 2100 2039 (Given - Provider: Norah Varner, PANDA) 2100 (Due) linaCLOtide (Linzess) capsule 145 mcg 145 mcg, oral, Daily before breakfast, First dose on Tue04/14/23 at 0700, Do not break or crush capsule. If difficulty swallowing, may sprinkle capsule contents in 30 mL water or 5 mL applesauce if swallowed without chewing. Use immediately after mixing. 0800 (Not Given - Provider: Olga Hugo RN - Reason: Other - Comment: med not here) magnesium sulfate IV 2 g (COMPLETED) 2 g, intravenous, at 150 mL/hr, Administer over 20 Minutes, Once, On Tue04/13/23 at 0540, For 1 dose 0603 (New Bag - Provider: Ashley Andino, PANDA)0623 (Stopped - Provider: Ashley Andino, PANDA) magnesium sulfate IV 2 g (COMPLETED) 2 g, intravenous, at 50 mL/hr, Administer over 1 Hours, Once, On Tue04/13/23 at 0830, For 1 dose 0835 (New Bag - Provider: Olga Hugo RN)0935 (Stopped - Provider: Olga Hugo RN) metoprolol succinate XL (Toprol-XL) 24 hr tablet 50 mg (COMPLETED) 50 mg, oral, Daily, First dose on Tue04/13/23 at 0900, For 1 dose, Do not crush or chew. 0836 (Given - Provider: Olga Hugo RN) montelukast (Singulair) tablet 10 mg 10 mg, oral, Nightly, First dose on Tue04/13/23 at 2100 2047 (Given - Provider: Norah Varner RN) 2100 (Due) nicotine (Nicoderm CQ) 14 mg/24 hr patch 1 patch(Linked Group 1) 1 patch, transdermal, Administer over 24 Hours, Daily, First dose on Tue05/25/23 at 0900, For 14 days nicotine (Nicoderm CQ) 21 mg/24 hr patch 1 patch(Linked Group 1) 1 patch, transdermal, Administer over 24 Hours, Daily, First dose on Tue04/13/23 at 0915, For 42 days 1010 (Medication Applied - Provider: Olga Hugo RN) 0836 (Medication Applied - Provider: Olga Hugo RN) nicotine (Nicoderm CQ) 7 mg/24 hr patch 1 patch(Linked Group 1) 1 patch, transdermal, Administer over 24 Hours, Daily, First dose on Tue06/08/23 at 0900, For 14 days nystatin (Mycostatin) 100,000 unit/gram powder 1 Application 1 Application, Topical, 3 times daily, First dose on Tue04/13/23 at 1500, Apply to chest 1541 (Given - Provider: Olga Hugo RN)2049 (Given - Provider: Norah Varner RN) 0837 (Given - Provider: Olga Hugo RN)1500 (Due)2100 (Due) perflutren lipid microspheres (Definity) injection 0.5-10 mL of dilution (COMPLETED) 0.5-10 mL of dilution, intravenous, Once in imaging, Starting on Tue04/13/23 at 1359, For 1 dose, CV Medications, Contrast - for use by imaging provider only. Prior to administration, Definity product must be activated. First, bring vial to room temperature. Then, shake vial for 45 seconds. Do not use if the 45 second activation cycle has not been completed. Following activation, the product will appear as a milky white suspension and may be used immediately. If not used within 5 minutes of activation, re-suspend by inverting and shaking the vial for 10 seconds. Discard unused product. Administration: Dilute 1.3 mL of activated DEFINITY with 8.7 mL of normal saline in a 10 mL syringe. Inject 0.5 mL of diluted DEFINITY when notified the images/film are unclear to enhance view of Left Ventricular borders. Repeat 0.5 mL of DEFINITY until clear images are obtained, not to exceed 10 mLs. Once images are obtained or limit of medication is reached, flush line with 10 mL of Normal Saline. 1410 (Given - Provider: Marily Wolf RN - Comment: Administered 1ml of diluted definity as battery service technician instructed.) polyethylene glycol (Glycolax, Miralax) packet 17 g 17 g, oral, Daily, First dose on Tue04/13/23 at 0900, Bowel Regimen - for prevention of constipation. 0900 (Not Given - Provider: Olga Hugo RN - Reason: Patient/family refused) 0900 (Not Given - Provider: Olga Hugo RN - Reason: Patient/family refused) sodium chloride 0.9 % bolus 1,000 mL (COMPLETED) 1,000 mL, intravenous, at 1,000 mL/hr, Administer over 1 Hours, Once, On Tue04/13/23 at 0445, For 1 dose 0447 (New Bag - Provider: Ashley Andino, PANDA)0547 (Stopped - Provider: Ashley Andino, PANDA) traZODone (Desyrel) tablet 100 mg 100 mg, oral, Nightly, First dose on Tue04/13/23 at 2100 7 (Given - Provider: Norah Varner RN) 2100 (Due) Continuous Medication Order 04/12/2023 04/13/2023 04/14/2023 sodium chloride 0.9% infusion 150 mL/hr, intravenous, Continuous, Starting on Tue04/13/23 at 0650 0650 (New Bag - Provider: Ashley Andino RN)1350 (Rate/Dose Verify - Provider: Olga Hugo RN) PRN Medication Order 04/12/2023 04/13/2023 04/14/2023 dextrose 10 % in water (D10W) infusion 0.3 g/kg/hr 97.1 kg (291.3 mL/hr), intravenous, Once as needed, For blood glucose less than 70 mg/dL after 30 minutes of intervention. Discontinue once blood glucose reaches 100 mg/dL., Starting on Tue04/13/23 at 0854, For 1 dose, Discontinue once blood glucose reaches 100 mg/dL. dextrose 50 % injection 25 g 25 g, intravenous, Every 15 min PRN, For blood glucose less than or equal to 40 mg/dL, Starting on Tue04/13/23 at 0854, May repeat until blood glucose level reaches 100 mg/dL or greater. Push 2 - 3 mL/minute if patient has secure IV access. glucagon (Glucagen) injection 1 mg 1 mg, intramuscular, Every 15 min PRN, low blood sugar - see comments, For blood glucose less than or equal to 70 mg/dL and no IV access, Starting on Tue04/13/23 at 0854, Give until blood glucose is 100 mg/dL or greater. If patient DOES NOT HAVE secure IV access & patient is unconscious, NPO or is unable to eat or drink. insulin lispro (HumaLOG) injection 0-6 Units 0-6 Units, subcutaneous, With snacks, high blood sugar, Starting on Tue04/13/23 at 0854, Carb Ratio - AM Snack (g/unit): 15, Carb Ratio - PM Snack (g/unit): 15 traMADol (Ultram) tablet 50 mg 50 mg, oral, Every 8 hours PRN, pain severe (7-10), first line, Starting on Tue04/13/23 at 1953, Max of 300 mg daily for patients > 75 years of age., If ordered PRN for pain, nurse is permitted to administer this medication for higher pain scores based on patient preference? Yes 2147 (Given - Provider: Camacho Varner RN) Linked Groups Order Group 1: nicotine (Nicoderm CQ) 21 mg/24 hr patch 1 patchJump to med 1 patch, transdermal, Administer over 24 Hours, Daily, First dose on Tue04/13/23 at 0915, For 42 days Followed by nicotine (Nicoderm CQ) 14 mg/24 hr patch 1 patchJump to med 1 patch, transdermal, Administer over 24 Hours, Daily, First dose on Tue05/25/23 at 0900, For 14 days Followed by nicotine (Nicoderm CQ) 7 mg/24 hr patch 1 patchJump to med 1 patch, transdermal, Administer over 24 Hours, Daily, First dose on Tue06/08/23 at 0900, For 14 days Care Teams (unrecognized sec tion and content) Home Worker Relationship Specialty Start Date End Date Ida Ely CNP [address] [facility] [address] [place] [address] PCP - General Nurse Practitioner 08/25/20 Greg Abdul MD [address] [facility] [address] [place] [address] Consulting Physician Gastroenterology 11/12/19 Home Worker Relationship Specialty Start Date End Date Callie Mcdonough PA-C [address] [place] [address] PCP - General 04/22/22 Home Worker Relationship Specialty Start Date End Date Callie Mcdonough PA-C [address] [facility] [place] [address] PCP - General 04/22/22 Darian Riley MD [address] [facility] [place] [address] PCP - [employer] PCP 05/12/22 Home Worker Relationship Specialty Start Date End Date Callie Mcdonough PA-C [address] [place] [address] PCP - General 04/22/22 Darian Riley MD [address] [place] [address] PCP - [employer] PCP 05/12/22 Home Worker Relationship Specialty Start Date End Date Callie Mcdonough PA-C [address] [place] [address] PCP - General 04/22/22 Darian Riley MD [address] [place] [address] PCP - Anthem Medicare Advantage PCP 05/12/22 Home Worker Relationship Specialty Start Date End Date Callie Mcdonough PA-C [address] [place] [address] PCP - General 04/22/22 Darian Riley MD [address] [place] [address] PCP - Anthem Medicare Advantage PCP 05/12/22 Home Worker Relationship Specialty Start Date End Date Callie Mcdonough PA-C [address] [place] [address] PCP - General 04/22/22 Darian Riley MD [address] [place] [address] PCP - Anthem Medicare Advantage PCP 05/12/22 Home Worker Relationship Specialty Start Date End Date Callie Mcdonough PA-C [address] [place] [address] PCP - General 04/22/22 Darian Riley MD [address] [place] [address] PCP - Anthem Medicare Advantage PCP 05/12/22 Home Worker Relationship Specialty Start Date End Date Callie Mcdonough PA-C [address] [facility] [place] [address] PCP - General 04/22/22 Darian Riley MD [address] [place] [address] PCP - Anthem Medicare Advantage PCP 05/12/22 Home Worker Relationship Specialty Start Date End Date Callie Mcdonough PA-C [address] [place] [address] PCP - General 04/22/22 Home Worker Relationship Specialty Start Date End Date Callie Mcdonough PA-C [address] [place] [address] PCP - General 04/22/22 Home Worker Relationship Specialty Start Date End Date Callie Mcdonough PA-C [address] [place] [address] PCP - General 04/22/22 Shadia Daley, 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 [address] [facility] [address] [place] [address] PCP - MMO Medicare Advantage PCP 02/09/23 Home Worker Relationship Specialty Start Date End Date Callie Mcdonough PA-C [address] [facility] [place] [address] PCP - General 04/22/22 Shadia Daley, 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 [address] [facility], [address] [place] [address] PCP - MMO Medicare Advantage PCP 02/09/23 Gretel Fischer, [facility] Hydro Generation SupervisorEmail Marketing Coordinator 04/06/23 Home Worker Relationship Specialty Start Date End Date Callie Mcodnough, OLIVIA [address] [place] [address] PCP - General 04/22/22 Shadia Daley, [employer]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 [address] [facility], [address] [place] [address] PCP - MMO Medicare Advantage PCP 02/09/23 Gretel Fischer, WELFARE ADVISER Hydro Generation SupervisorEmail Marketing Coordinator 04/06/23 Home Worker Relationship Specialty Start Date End Date Callie Mcdonough, OLIVIA [address] [place] [address] PCP - General 04/22/22 Shadia Daley, 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 [address] [facility], [address] [place] [address] PCP - MMO Medicare Advantage PCP 02/09/23 Gretel Fischer, [facility] Hydro Generation SupervisorEmail Marketing Coordinator 04/06/23 Home Worker Relationship Specialty Start Date End Date Callie Mcdonough, OLIVIA [address] [place] [address] PCP - General 04/22/22 Shadia Daley, [employer]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 [address] [facility], [address] [place] [address] PCP - MMO Medicare Advantage PCP 02/09/23 Gretel Fischer CMA Hydro Generation SupervisorEmail Marketing Coordinator 04/06/23 Home Worker Relationship Specialty Start Date End Date Callie Mcdonough PA-C [address] [place] [address] PCP - General 04/22/22 Shadia Daley, 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 [address] [facility], [address] [place] [address] PCP - MMO Medicare Advantage PCP 02/09/23 Gretel Fischer, [facility] Hydro Generation SupervisorEmail Marketing Coordinator 04/06/23 Home Worker Relationship Specialty Start Date End Date Callie Mcdonough PA-C [address] [place] [address] PCP - General 04/22/22 Shadia Daley, [employer]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 [address] [facility], [address] [place] [address] PCP - MMO Medicare Advantage PCP 02/09/[address] [facility] Hydro Generation SupervisorEmail Marketing Coordinator 04/06/23 Home Worker Relationship Specialty Start Date End Date Callie Mcdonough PA-C [address] [place] [address] PCP - General 04/22/22 Shadia Daley, [employer]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 [address] [facility], [address] [place] [address] PCP - MMO Medicare Advantage PCP 02/09/23 Home Worker Relationship Specialty Start Date End Date SharondaCallie yao PA-C [address] [place] [address] PCP - General 04/22/22 Shadia Daley, 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 [address] [facility], [address] [place] [address] PCP - MMO Medicare Advantage PCP 02/09/23 Home Worker Relationship Specialty Start Date End Date Callie Mcdonough PA-C [address] [place] [address] PCP - General 04/22/22 Shadia Daley, [employer]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 [address] [facility], [address] [place] [address] PCP - MMO Medicare Advantage PCP 02/09/23 Gretel Fischer CMA Hydro Generation SupervisorEmail Marketing Coordinator 04/06/23 Home Worker Relationship Specialty Start Date End Date Callie Mcdonough PA-C [address] [place] [address] PCP - General 04/22/22 Shadia Daley, [employer]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 [address] [facility], [address] [place] [address] PCP - MMO Medicare Advantage PCP 02/09/23 Gretel Fischer CMA Hydro Generation SupervisorEmail Marketing Coordinator 04/06/23 Home Worker Relationship Specialty Start Date End Date Callie Mcdonough PA-C [address] [place] [address] PCP - General 04/22/22 Shadia Daley, [employer]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 [address] [facility], [address] [place] [address] PCP - MMO Medicare Advantage PCP 02/09/23 Gretel Fischer, RAGHAVENDRA Hydro Generation SupervisorEmail Marketing Coordinator 04/06/23 Home Worker Relationship Specialty Start Date End Date Callie Mcdonough, OLIVIA [address] [place] [address] PCP - General 04/22/22 Shadia Daley, [employer]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 [address] [facility], [address] [place] [address] PCP - MMO Medicare Advantage PCP 02/09/23 Gretel Fischer, [facility] Hydro Generation SupervisorEmail Marketing Coordinator 04/06/23 Home Worker Relationship Specialty Start Date End Date Callie Mcdonough, OLIVIA [address] [place] [address] PCP - General 04/22/22 Shadia Daley, [employer]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 [address] [facility], [address] [place] [address] PCP - MMO Medicare Advantage PCP 02/09/23 Gretel Fischer, WELFARE ADVISER Hydro Generation SupervisorEmail Marketing Coordinator 04/06/23 Home Worker Relationship Specialty Start Date End Date Callie Mcdonough, OLIVIA [address] [place] [address] PCP - General 04/22/22 Shadia Daley, [employer]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 [address] [facility], [address] [place] [address] PCP - MMO Medicare Advantage PCP 02/09/23 Gretel Fischer, RAGHAVENDRA Hydro Generation SupervisorEmail Marketing Coordinator 04/06/23 Home Worker Relationship Specialty Start Date End Date Callie Mcdonough PA-C [address] [facility] [place] [address] PCP - General 04/22/22 Shadia Daley, [employer] PL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 [address] [facility], [address] [place] [address] PCP - MMO Medicare Advantage PCP 02/09/23 Gretel Fischer, RAGHAVENDRA Hydro Generation SupervisorEmail Marketing Coordinator 04/06/23 Home Worker Relationship Specialty Start Date End Date Callie Mcdonough PA-C [address] [facility] [place] [address] PCP - General 04/22/22 Shadia Daley, [employer]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 [address] [facility], [address] [place] [address] PCP - MMO Medicare Advantage PCP 02/09/23 Gretel Fischer, [facility] Hydro Generation SupervisorEmail Marketing Coordinator 04/06/23 Home Worker Relationship Specialty Start Date End Date Callie Mcdonough, OLIVIA [address] [facility] [place] [address] PCP - General 04/22/22 Shadia Daley, [employer] PL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 [address] [facility], [address] [place] [address] PCP - MMO Medicare Advantage PCP 02/09/23 Gretel Fischer, [facility] Hydro Generation SupervisorEmail Marketing Coordinator 04/06/23 Home Worker Relationship Specialty Start Date End Date Callie Mcdonough, OLIVIA [address] [place] [address] PCP - General 04/22/22 Shadia Daley, [employer] PL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 [address] [facility], [address] [place] [address] PCP - MMO Medicare Advantage PCP 02/09/23 Gretel Fischer, WELFARE ADVISER Hydro Generation SupervisorEmail Marketing Coordinator 04/06/23 Home Worker Relationship Specialty Start Date End Date Callie Mcdonough PA-C [address] [place] [place] [address] PCP - General 04/22/22 Shadia Daley, [employer] PL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 [address] [facility], [address] [place] [address] PCP - MMO Medicare Advantage PCP 02/09/23 Gretel Fischer, [facility] Hydro Generation SupervisorEmail Marketing Coordinator 04/06/23 Home Worker Relationship Specialty Start Date End Date Callie Mcdonough PA-C [address] [place] [address] PCP - General 04/22/22 Home Worker Relationship Specialty Start Date End Date Callie Mcdonough PA-C [address] [place] [address] PCP - General 04/22/22 Shadia Daley, [employer] PL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 [address] [facility], [address] [place] [address] PCP - MMO Medicare Advantage PCP 02/09/23 Gretel Fischer, RAGHAVENDRA Hydro Generation SupervisorEmail Marketing Coordinator 04/06/23 Home Worker Relationship Specialty Start Date End Date Callie Mcdonough PA-C [address] [place] [address] PCP - General 04/22/22 Shadia Daley, [employer] PL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 [address] [facility], [address] [place] [address] PCP - MMO Medicare Advantage PCP 02/09/23 Gretel Fischer, WELFARE ADVISER Hydro Generation SupervisorEmail Marketing Coordinator 04/06/23 Home Worker Relationship Specialty Start Date End Date Callie Mcdonough PA-C [address] [facility] [place] [address] PCP - General 04/22/22 Shadia Daley, [employer] PL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 [address] [facility], [address] [place] [address] PCP - MMO Medicare Advantage PCP 02/09/23 Gretel Fischer, [facility] Hydro Generation SupervisorEmail Marketing Coordinator 04/06/23 Home Worker Relationship Specialty Start Date End Date Callie Mcdonough PA-C [address] [facility] [place] [address] PCP - General 04/22/22 Gretel Fischer, WELFARE ADVISER Hydro Generation SupervisorEmail Marketing Coordinator 04/06/23 Home Worker Relationship Specialty Start Date End Date Callie Mcdonough PA-C [address] [facility] [place] [address] PCP - General 04/22/22 Shadia Daley, [employer]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 [address] [facility], [facility] [address] [place] [address] PCP - MMO Medicare Advantage PCP 02/09/23 04/10/23 Home Worker Relationship Specialty Start Date End Date Callie Mcdonough PA-C [address] [facility] [address] PCP - General 04/22/22 Home Worker Relationship Specialty Start Date End Date Callie Mcdonough PA-C [address] [place] [address] PCP - General 04/22/22 Home Worker Relationship Specialty Start Date End Date Callie Mcdonough PA-C [address] [facility] [address] PCP - General 04/22/22 Home Worker Relationship Specialty Start Date End Date Callie Mcdonough PA-C [address] [place] [address] PCP - General 04/22/22 Home Worker Relationship Specialty Start Date End Date Callie Mcdonough PA-C [address] [place] [address] PCP - General 04/22/22 Shadia Daley, [employer]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 [address] [facility], [address] [place] [address] PCP - MMO Medicare Advantage PCP 02/09/23 Gretel Fischer CMA Hydro Generation SupervisorEmail Marketing Coordinator 04/06/23 <item><item><item><item><item><item><item><item> Privacy Markings (unrecogniz ed section and content) Section Author: Manasa Gorman PROHIBITION ON REDISCLOSURE OF CONFIDENTIAL INFORMATION This notice accompanies a disclosure of information concerning a client made to you with the consent of such client. Section Author: Manasa Gorman PROHIBITION ON REDISCLOSURE OF CONFIDENTIAL INFORMATION This notice accompanies a disclosure of information concerning a client made to you with the consent of such client. Section Author: Manasa Gorman PROHIBITION ON REDISCLOSURE OF CONFIDENTIAL INFORMATION This notice accompanies a disclosure of information concerning a client made to you with the consent of such client. Section Author: Manasa Gorman PROHIBITION ON REDISCLOSURE OF CONFIDENTIAL INFORMATION This notice accompanies a disclosure of information concerning a client made to you with the consent of such client. Section Author: Manasa Gorman PROHIBITION ON REDISCLOSURE OF CONFIDENTIAL INFORMATION This notice accompanies a disclosure of information concerning a client made to you with the consent of such client. Section Author: Manasa Gorman PROHIBITION ON REDISCLOSURE OF CONFIDENTIAL INFORMATION This notice accompanies a disclosure of information concerning a client made to you with the consent of such client. Section Author: Manasa Gorman PROHIBITION ON REDISCLOSURE OF CONFIDENTIAL INFORMATION This notice accompanies a disclosure of information concerning a client made to you with the consent of such client. Section Author: Manasa Gorman PROHIBITION ON REDISCLOSURE OF CONFIDENTIAL INFORMATION This notice accompanies a disclosure of information concerning a client made to you with the consent of such client. FOR RECORDS PERTAINING TO PATIENTS WHO ARE OR HAVE BEEN ENROLLED IN A CHEMICAL DEPENDENCY/SUBSTANCEABUSE PROGRAM, SOME INFORMATION MAY BE OMITTED. This clinical summary was aggregated from multiple sources. Caution should be exercised in using it in the provision of clinical care. This summary normalizes information from multiple sources, and as a consequence, information in this document may materially change the coding, format and clinical context of patient data. In addition, data may be omitted in some cases. CLINICAL DECISIONS SHOULD BE BASED ON THE PRIMARY CLINICAL RECORDS. [facility]. provides no warranty or guarantee of the accuracy or completeness of information in this document. Comprehensive CCD (C-CDA v2.1) Created on: January 12, 2024 JANELLE PICKETT : [id number] Sex: Female Author Organization [facility] Care Team Providers Care Home Worker Name Role Phone Li Grimaldo Unavailable Unavailable Li Grimaldo Unavailable Unavailable Donaldo Alvarez Unavailable Unavailable Donaldo Alvarez Unavailable Unavailable Ivanauskas, Saulius Unavailable Unavailable Ivanauskas, Saulius Unavailable Unavailable Malcolm Mayes Unavailable Unavailable Malcolm Mayes Unavailable Unavailable Pagedar, Ujwala Unavailable Unavailable Pagedar, Ujwala Unavailable Unavailable FREDY SAGASTUME Attending Unavailable FARVER, LI K. Primary Care Unavailable FARVER, LI K. Referring Unavailable FREDY SAGASTUME Attending Unavailable FARVER, LI K. Primary Care Unavailable FARVER, LI K. Admitting Unavailable FARVER, LI K. Primary Care Unavailable FARVER, LI K. Primary Care Unavailable GREG ABDUL. Admitting Unavailable GREG ABDUL Referring Unavailable FARVER, LI K. Admitting Unavailable FARVER, LI K. Primary Care Unavailable FARVER, LI K. Primary Care Unavailable FARVER, LI K. Admitting Unavailable NO, PHYSICIAN Primary Care Unavailable EFRAIN HORTON Admitting Unavailable FARVER, LI K. Primary Care Unavailable Greg Abdul MD Unavailable Alexia 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, Ida Primary Care Provider [id number] [id number] Ely 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, Ida Primary Care Provider [id number] [id number] ELY, IDA Primary Care Unavailable TITO MARIEE Admitting Unavail able TITO MARIEE Consulting Unavail able TITO MARIEE Attending Unavail able ELY, IDA Primary Care Unavailable YOSHI MORA Attending Unavail able ELY, IDA Primary Care Unavailable TITO GONGORA, DESI BURGER Attending Unav ailable SYSTEM, PROVIDER NOT IN Attending Unavaila ble LIZET MACKAY Referring Unavailable ELY, IDA Primary Care Unavailable CHOPKO, BOB WOLODYMYR Admitting Unavail able CHOPKO, BOB WOLODYMYR Attending Unavail able ELY, IDA Primary Care Unavailable CHOPKO, BOB WOLODYMYR Admitting Unavail able CHOPKO, BOB WOLODYMYR Attending Unavail able ELY, IDA Primary Care Unavailable ELY, IDA Primary Care Unavailable LIZET MACKAY Referring Unavailable RYLEY ANGELO Attending Unavailable ELY, IDA Primary Care Unavailable CHOPKO, BOB WOLODYMYR Attending Unavail able Required, No Pcp Unavailable Unavailable Marty Feliz Unavailable Unavailabl Shannen Barrett Unavailable Unavailable Cortez, Lakshmi Unavailable Unavailable Ryan Mehta Unavailable None, No PCP Unavailable Unavailable Unavailable Unavailable Shadia Daley Unavailable Ida Ely Unavailable AlexiaNicanorcy Brent Unavailable Unavailable Balbir Tavares Unavailable UnavailCallie Antonio Unavailable [phone] Callie Mcdonough Unavailable [phone] Reta Barlow Unavailable Unavailable Callie Mcdonough PA-C Primary Care Provider Osvaldo MORRISSEY, Darian Lemus Unavailable [phone] Davide Mitchell Unavailable Unavailable OLIVIA MCDONOUGH Primary Care Unavai labOLIVIA Ramos Attending OLIVIA Vick Referring Unavai OLIVIA Farris Primary Care Unavai labOLIVIA Ramos Attending TonavaOLIVIA Fernandes Primary Care Unareyna Kilgore, Dr. Kane Rider Attending Jack Kilgore, Dr. Kane Rider Referring Unavailable Fermin, Ms. Kelly Mathias Attending U OLIVIA Jaime Primary Care Unavai yanira Carrasco, Ms. Kelly Mathias Attending U matt Carrasco, Ms. Kelly Mathias Attending U OLIVIA Jaime Primary Care Unavai lablida Carrasco, Ms. Kelly Mathias Attending U matt Daley, Ms. Shadia Lemus Attending Unavailvani Daley, MsTeena Lemus Referring UnavailOLIVIA Antonio Primary Care Unavai labOLIVIA Ramos Primary Care Unavai lablida Miller, MsTeena Rolle Attending Michaelab OLIVIA Ramos Primary Care Unavai yanira Carrasco, Ms. Kelly Mathias Attending U MD DAVIDE Mancilla Attending OLIVIA Herr Primary Care MD DAVIDE Bowers Attending OLIVIA Herr Primary Care UnavaDr. Reta Orellana Attending Unavaila OLIVIA Gotti Primary Care Unavai yanira Tavares, Dr. Balbir Fisher Attending Unav ailable OLIVIA MCDONOUGH CALLIE B Primary Care Brittaney Angelo, Dr. Miguel Armenta Admitting Unav ailable Petey, Dr. Miguel Armenta Attending Unav ailable Petey, Dr. Miguel Armenta Referring Unav ailable Daley [employer] SE[employer]ATION PLANT MANAGER-EVERARDOShadia Unavailable [phone] Amado MABRY, Gretel Unavailable Unavailable SHARONDA, CALLIE B Primary Care Unavailable JEFFERY DUKES Attending Unavailable SHARONDA, CALLIE B Referring Unavailable SHARONDA, CALLIE B Primary Care Unavailable JEFFERY DUKES Attending Unavailable SHARONDA, CALLIE B Referring Unavailable SHARONDA, CALLIE B Primary Care Unavailable BALBIR TAVARES Referring Unavailable SHARONDA, CALLIE B Primary Care Unavailable SHARONDA, CALLIE B Referring Unavailable SHARONDA, CALLIE B Primary Care Unavailable JEFFERY DUKES Attending Unavailable SHARONDA, CALLIE B Referring Unavailable SHARONDA, CALLIE B Primary Care Unavailable SHARONDA, CALLIE B Primary Care Unavailable SHARONDA, CALLIE B Primary Care Unavailable SHARONDA, CALLIE B Primary Care Unavailable FREDY STYLES Referring Unavailable SHARONDA, CALLIE B Primary Care Unavailable Daley [employer]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, Shadia Lemus Unavailable [phone] SHARONDA, CALLIE B Primary Care Unavailable ABEIBIE, VIVIAN Admitting Unavailable ABJENNY, VIVIAN Attending Unavailable SHARONDA, CALLIE B Primary Care Unavailable DANIELA UP A Admitting Unavailable TABATHA Diaz, ROSENDO Attending Unavailable DESI SOLOMON Consulting Unavailable SHADIA DALEY Referring Unavailable SHARONDA, CALLIE B Primary Care Unavailable SHARONDA, CALLIE B Referring Unavailable SHARONDA, CALLIE B Primary Care Unavailable KELLY CARRASCO Attending Unavailable SHARONDA, CALLIE B Primary Care Unavailable SHADIA DALEY Referring Unavailable SHARONDA, CALLIE B Primary Care Unavailable SHARONDA, CALLIE B Referring Unavailable SHARONDA, CALLIE B Primary Care Unavailable SHARONDA, CALLIE B Referring Unavailable SHARONDA, CALLIE B Primary Care Unavailable FREDY STYLES Admitting Unavailable FREDY STYLES Attending Unavailable SHARONDA, CALLIE B Primary Care Unavailable SHARONDA, CALLIE B Primary Care Unavailable OMID, RYAN W Attending Unavailable OMID, RYAN W Referring Unavailable SHARONDA, CALLIE B Primary Care Unavailable FREDY STYLES M Referring Unavailable SHARONDA, CALLIE B Primary Care Unavailable ADAM, FREDY M Referring Unavailable SHARONDA, CALLIE B Primary Care Unavailable CARRASCO, KELLY C Referring Unavailable SHARONDA, CALLIE B Primary Care Unavailable CARRASCO, KELLY C Attending Unavailable SHARONDA, CALLIE B Primary Care Unavailable ADAM, FREDY M Referring Unavailable SHARONDA, CALLIE B Primary Care Unavailable CARRASCO, KELLY C Attending Unavailable SHARONDA, CALLIE B Primary Care Unavailable ADAM, FREDY M Referring Unavailable SHARONDA, CALLIE B Primary Care Unavailable CARRASCO, KELLY C Attending Unavailable SHARONDA, CALLIE B Primary Care Unavailable SHADIA DALEY Referring Unavailable SHARONDA, CALLIE B Primary Care Unavailable KHANH DIAZ Attending Unavailable CARRASCO, KELLY C Referring Unavailable SHARONDA, CALLIE B Primary Care Unavailable SHARONDA, CALLIE B Primary Care Unavailable SHARONDA, CALLIE B Primary Care Unavailable BALBIR TAVARES Attending Unavailable SHARONDA, CALLIE B Primary Care Unavailable SHARONDA, CALLIE B Primary Care Unavailable LOREN DALE Admitting Unavailable CHITOLOREN E Attending Unavailable NAYANA MILLER Attending Unavailable SHARONDA, CALLIE B Primary Care Unavailable SHADIA DALEY Attending Unavailable SHARONDA, CALLIE B Primary Care Unavailable SHADIA DALEY Attending Unavailable SHARONDA, CALLIE B Primary Care Unavailable SHADIA DALEY Attending Unavailable SHARONDA, CALLIE B Primary Care Unavailable SHARONDA, CALLIE B Attending Unavailable SHARONDA, CALLIE B Primary Care Unavailable SHARONDA, CALLIE B Attending Unavailable SHARONDA, CALLIE B Primary Care Unavailable SHARONDA, CALLIE B Attending Unavailable SHARONDA, CALLIE B Primary Care Unavailable SHARONDA, CALLIE B Attending Unavailable SHARONDA, CALLIE B Primary Care Unavailable SHADIA DALEY Attending Unavailable SHARONDA, CALLIE B Primary Care Unavailable SHARONDA, CALLIE B Attending Unavailable SHARONDA, CALLIE B Primary Care Unavailable SHADIA DALEY Attending Unavailable SHARONDA, CALLIE B Primary Care Unavailable FREDY STYLES M Attending Unavailable SHARONDA, CALLIE B Primary Care Unavailable SHARONDA, CALLIE B Attending Unavailable SHARONDA, CALLIE B Primary Care Unavailable SHARONDA, CALLIE B Attending Unavailable SHARONDA, CALLIE B Primary Care Unavailable FREDY STYLES Attending Unavailable SHARONDA, CALLIE B Primary Care Unavailable FREDY STYLES Attending Unavailable SHARONDA, CALLIE B Primary Care Unavailable SHADIA DALEY Attending Unavailable SHADIA DALEY Referring Unavailable SHARONDA, CALLIE B Primary Care Unavailable SHARONDA, CALLIE B Attending Unavailable SHARONDA, CALLIE B Primary Care Unavailable SHARONDA, CALLIE B Attending Unavailable SHARONDA, CALLIE B Primary Care Unavailable Allergies Allergy Classification Reported Allergen(s) Allergy Type Date of Onset Reaction(s) Facility Gemfibrozil (4 sources) Gemfibrozil; Translations: [GEMFIBROZIL] Drug Allergy 04-15-2017 [facility] (20 sources) Gemfibrozil; Translations: [Unknown] Drug Allergy 04-15-2017 Other [facility] Comment on above: abd cramps Medications Current Medications Medication Drug Class(es) Dates Sig (Normalized) Sig (Original) acetaminophen 325 mg oral tablet (3 sources) Start: 06-10-2023 take 650 mg by mouth every six hours for pain 650 mg, oral, Every 6 hours scheduled, First dose on Tue06/10/23 at 1800, Phase II/On Unit If ordered PRN for pain, nurse is permitted to administer this medication for higher pain scores based on patient preference? Yes Start: 04-04-2023 take 1 tablet by lennie th every four hours as needed acetaminophen (Tylenol) tablet 650 mg acetaminophen 325 mg / oxyCODONE hydrochloride 5 mg oral tablet (6 sources) Opioid Agonist Start: 09-03-2021 End: 07-08-2022 take 1 tablet by mouth every six hours as needed oxycodone-acetaminophen 5 mg-325 mg oral tablet ; 1 tab(s) orally every 6 hours, As Needed -for pain Quantity: 12 Refills: 0 Ordered: 03-Sep-2021 Ryan Mehta Start: 03-Sep-2021 Generic Substitution Allowed Comments: Caution federal law prohibits the transfer of this drug to any person other than the person for whom it was prescribed.May cause drowsiness. Alcohol may intensify this effect. Use care when operating dangerous machinery.This prescription cannot be refilled.This product contains acetaminophen. Do not use with any other product containing acetaminophen to prevent possible liver damage.Using more of this medication than prescribed may cause serious breathing problems. Comment on above: Caution federal law prohibits the transfer of this drug to any person other than the person for whom it was prescribed.May cause drowsiness. Alcohol may intensify this effect. Use care when operating dangerous machinery.This prescription cannot be refilled.This product contains acetaminophen. Do not use with any other product containing acetaminophen to prevent possible liver damage.Using more of this medication than prescribed may cause serious breathing problems. albuterol 0.833 mg/ml / ipratropium bromide 0.167 mg/ml inhalation solution (20 sources) Anticholinergic, beta2-Adrenergic Agonist Start: 06-10-2023 3 mL, nebulization, 3 times daily PRN, wheezing, Starting on Tue06/10/23 at 1854 Start: 04-13-2023 ipratropium-al buteroL (Duo-Neb) 0.5-2.5 mg/3 mL nebulizer solution 3 mL Start: 09-09-2020 End: 07-08-2022 take 3 mL by inhalation every six hours as needed ipratropium-albuteroL (DUO-NEB) 0.5-2.5 mg/3 ml nebulizer Take 3 mL by nebulization every 6 (six) hours as needed for wheezing . 90 mL 11 09/09/2020 Active take 1 [IU] by inhal ation every four hours as needed ipratropium-albuteroL (Duo-Neb) 0.5-2.5 mg/3 mL nebulizer solution Inhale. Use 1 unit dose in nebulizer every 4 hours as needed Active take 3 mL by inhalat ion four times daily as needed ipratropium-albuterol 0.5 mg-2.5 mg/3 mL inhalation solution ; 3 milliliter(s) inhaled 4 times a day, As Needed Quantity: 0 Refills: 0 Ordered: 18-Oct-2022 Valencia Kent Generic Substitution Allowed DuoNeb 0.5-2.5 ( 3) MG/3ML SOLN Quantity: 0 Refills: 0 Ordered: 10-Sep-2021 DO Active ALPRAZolam 0.25 mg oral tablet (6 sources) Benzodiazepine Start: 08-22-2019 ALPRAZolam (XANAX) 0.25 MG tablet Indications: Claustrophobia Take one tablet 30 minutes prior to appt then take one tablet 15 minutes prior to MRI. . 1 tablet 0 08/22/2019 Active aspirin 81 mg delayed release oral tablet (6 sources) Platelet Aggregation Inhibitor, Nonsteroidal Anti-inflammatory Drug Start: 06-10-2023 End: 07-10-2023 take 1 tablet by mouth twice daily aspirin 81 mg EC tablet Indications: Arthritis of left knee Take 1 tablet (81 mg) by mouth 2 times a day. 60 tablet 0 06/10/2023 07/10/2023 Active atorvastatin 20 mg oral tablet (20 sources) HMG-CoA Reductase Inhibitor Start: 07-28-2023 take 1 tablet by mouth once daily atorvastatin (Lipitor) 20 mg tablet Indications: Diabetes mellitus with stage 3 chronic kidney disease (Multi) Take 1 tablet (20 mg) by mouth once daily. 90 tablet 3 07/28/2023 Active Start: 12-28-2022 take 20 mg by mouth once daily 20 mg, oral, Nightly, First dose on Tue04/13/23 at 2100 Start: 05-29-2021 End: 12-21-2022 take 1 tablet by mouth once daily atorvastatin (Lipitor) 20 mg tablet Take 1 tablet (20 mg) by mouth once daily. 0 05/29/2021 12/21/2022 Discontinued (Reorder) Start: 05-29-2021 Atorvastatin C alcium 20 MG Oral Tablet Quantity: 90 Refills: 0 Ordered: 05-Sep-2021 DO Start : 29-May-2021 Active Autolet lancing device (20 sources) Autolet lancing device 1 each if needed. Use as instructed Active Autolet lancing device 1 each if needed. Use as instructed 0 Suspended Autolet lancing device 1 each if needed. Use as instructed 0 Active azithromycin 500 mg oral tablet (4 sources) Macrolide Antimicrobial Start: 04-15-2023 End: 04-17-2023 azithromycin (Zithromax) 500 mg tablet Indications: COPD exacerbation (CMS/HCC) Take 1 tablet (500 mg) by mouth once every 24 hours for 2 days. Do not start before April 15, 2023. 2 tablet 0 04/15/2023 04/17/2023 Active Start: 04-14-2023 azithromycin ( Zithromax) tablet 500 mg Start: 01-19-2023 End: 01-26-2023 azithromycin (Zithromax) 250 mg tablet Indications: Acute non-recurrent frontal sinusitis Take 2 tablets (500 mg) by mouth once daily for 1 day, THEN 1 tablet (250 mg) once daily for 4 days. Take 2 tabs (500 mg) by mouth today, than 1 daily for 4 days.. 6 tablet 0 01/19/2023 01/26/2023 Discontinued (Therapy completed) azithromycin (Zithromax) in dextrose 5 % in water (D5W) 250 mL IV 500 mg (1 source) Start: 04-04-2023 End: 04-07-2023 500 mg, intravenous, at 250 mL/hr, Administer over 60 Minutes, Every 24 hours, First dose on Tue04/04/23 at 1700, For 3 doses Suspected Indication (Select all that apply): Other Specify: COPD Type of Therapy: Empiric benzocaine 15 mg / menthol 3.6 mg oral lozenge (2 sources) Standardized Chemical Allergen Start: 06-10-2023 1 lozenge, Mouth/Throat, Every 4 hours PRN, sore throat, Starting on Tue06/10/23 at 1437, Phase II/On Unit Start: 04-04-2023 1 lozenge, Lennie th/Throat, Every 2 hour PRN, sore throat, Starting on Tue04/04/23 at 1456 bisacodyl 5 mg delayed release oral tablet (2 sources) Stimulant Laxative Start: 06-10-2023 take 1 tablet by mouth every twenty-four hours as needed 10 mg, oral, Daily PRN, constipation, first line, Starting on Tue06/10/23 at 1437, Phase II/On Unit 1st line for treatment of constipation - contact provider if no bowel movement in past 48 hours. Do not crush, chew, or split. Start: 04-04-2023 take 1 tablet by lennie th every twenty-four hours as needed 10 mg, oral, Daily PRN, constipation, first line, Starting on Tue04/04/23 at 1456 1st line for treatment of constipation - contact provider if no bowel movement in past 48 hours. Do not crush, chew, or split. blood-glucose meter Misc (3 sources) Start: 11-12-2020 blood-glucose meter [place] Indications: Uncontrolled type 2 diabetes mellitus with hyperglycemia (HCC) by Miscellaneous route Test blood sugar daily . 1 each 0 11/12/2020 Active Start: 11-12-2020 blood-glucose meter [place] Indications: Uncontrolled type 2 diabetes mellitus with hyperglycemia (HCC) by Miscellaneous route Test blood sugar daily . 1 each 0 11/12/2020 budesonide 0.25 mg/ml inhalation suspension (2 sources) Corticosteroid Start: 06-10-2023 budesonide (Pu lmicort) 0.5 mg/2 mL nebulizer solution 0.5 mg Start: 04-13-2023 budesonide (Pu lmicort) 0.5 mg/2 mL nebulizer solution 0.5 mg 120 actuat budesonide 0.16 mg/actuat / formoterol fumarate 0.0048 mg/actuat / glycopyrrolate 0.009 mg/actuat metered dose inhaler (20 sources) Corticosteroid, beta2-Adrenergic Agonist Start: 03-08-2023 take 2 puff(s) by inhalation twice daily [id number] (Breztri Aerosphere) 160-9-4.8 mcg/actuation HFA aerosol inhaler Indications: Chronic obstructive pulmonary disease with acute exacerbation (Multi) Inhale 2 puffs 2 times a day. 10.7 g 5 03/08/2023 Active calcium carbonate 500 mg chewable tablet (1 source) Start: 04-04-2023 take 500 mg by mouth four times daily as needed for gastroesoph ageal reflux disease 500 mg, oral, 4 times daily PRN, heartburn, indigestion, Starting on Tue04/04/23 at 1456 cefTRIAXone 2000 mg injection (2 sources) Cephalosporin Antibacterial Start: 04-05-2023 2 g, intravenous, at 100 mL/ hr, Administer over 30 Minutes, Every 24 hours, First dose on Tue04/05/23 at 1200 premix bag Suspected Indication (Select all that apply): Pneumonia Type of Therapy: Empiric Start: 04-04-2023 End: 04-04-2023 cefTRIAXone (Rocephin) 2 g I V in dextrose 5% 50 mL cilostazol 50 mg oral tablet (20 sources) Phosphodiesterase 3 Inhibitor Start: 05-19-2021 End: 05-03-2023 take 50 mg by mouth twice daily 50 mg, oral, 2 times daily, First dose on Tue04/13/23 at 0900 Start: 05-19-2021 take 1 tablet by lennie th once daily cilostazol (Pletal) 50 mg tablet Take 1 tablet (50 mg) by mouth once daily. FROM [employer] [facility] JAC [address] [place] [address] 0 05/19/2021 Suspended Start: 06-10-2020 End: 05-11-2021 take 1 tablet by mouth twice daily cilostazoL (PLETAL) 50 MG tablet Take 1 (one) tablet (50 mg total) by mouth 2 (two) times a day . 180 tablet 1 11/12/2020 05/11/2021 citalopram 40 mg oral tablet (20 sources) Serotonin Reuptake Inhibitor Start: 12-28-2022 take 1 tablet by mouth once daily citalopram (CeleXA) 40 mg tablet Indications: Depression, unspecified depression type Take 1 tablet (40 mg) by mouth once daily. 90 tablet 3 12/28/2022 Active Start: 02-16-2021 Citalopram Hyd robromide 40 MG Oral Tablet Quantity: 90 Refills: 0 Ordered: 16-Aug-2021 DO Start : 16-Feb-2021 Active Start: 06-10-2020 End: 12-21-2022 take 1 tablet by mouth once daily citalopram (CeleXA) 40 mg tablet Take 1 tablet (40 mg) by mouth once daily. 0 02/16/2021 12/21/2022 Discontinued (Reorder) COVID-19 antigen test (COVID-19 At-Home Test) kit (1 source) Start: 01-19-2023 End: 01-19-2023 COVID-19 antigen test (COVID-19 At-Home Test) kit Indications: Acute cough 1 each 1 time for 1 dose. 2 each 0 01/19/2023 01/19/2023 Active cyclobenzaprine hydrochloride 10 mg oral tablet (20 sources) Muscle Relaxant Start: 10-27-2020 take 1 tablet by mouth three times daily as needed for muscle spasms cyclobenzaprine (FLEXERIL) 10 MG tablet Take 1 (one) tablet (10 mg total) by mouth 3 (three) times a day as needed for muscle spasms Start: 10/27/20. 8 tablet 0 10/27/2020 Active Start: 10-26-2020 End: 01-21-2022 Cyclobenzaprine HCl - 10 MG Oral Tablet Quantity: 8 Refills: 0 Ordered: 27-Oct-2020 DO Start : 26-Oct-2020 End : 21-Jan-2022 Complete dextromethorphan hydrobromide 2 mg/ml / guaiFENesin 20 mg/ml oral solution (1 source) Uncompetitive P-jbmtqj-T-aspartate Receptor Antagonist, Sigma-1 Agonist Start: 04-04-2023 take 5 mL by mouth every four hours as needed 5 mL, oral, Every 4 hours PRN, cough, Starting on Tue04/04/23 at 1456 diclofenac sodium 0.01 mg/mg topical gel (20 sources) Nonsteroidal Anti-inflammatory Drug Start: 12-28-2022 diclofenac sodium (Voltaren) 1 % gel gel once daily. 12/28/2022 Active Start: 12-28-2022 Diclofenac Sod ium 1 % External Gel APPLY TO LOWER EXTREMITIES, 4 GM OF GEL TO AFFECTED AREA 4 TIMES DAILY. DO NOT APPLY MORE THAN 16 GM DAILY TO ANY ONE AFFECTED JOINT. Quantity: 1 Refills: 2 Ordered: 28-Dec-2022 Shadia Fisher Start : 28-Dec-2022 Active Start: 10-22-2020 End: 11-21-2020 diclofenac sodium (Voltaren) 1 % Gel Apply 2 (two) g topically 4 (four) times a day as needed (Pain) . 240 g 0 10/22/2020 11/21/2020 Active dicyclomine hydrochloride 10 mg oral capsule (20 sources) Anticholinergic Start: 06-10-2023 take 20 mg by mouth four times daily as needed for pain 20 mg, oral, 4 times daily PRN, Abd pain, Starting on Tue06/10/23 at 1853 Start: 11-03-2022 take 1 tablet by lennie th four times daily as needed for pain dicyclomine (Bentyl) 20 mg tablet Indications: Abdominal lymphadenopathy Take 1 tablet (20 mg) by mouth 4 times a day as needed (Abd pain). 40 tablet 11/03/2022 Active Start: 08-12-2022 End: 10-14-2022 take 1 tablet by mouth four times daily as needed for pain dicyclomine (Bentyl) 20 mg tablet Indications: Abdominal lymphadenopathy Take 1 tablet (20 mg) by mouth 4 times a day as needed (Abd pain). 40 tablet 0 10/14/2022 Active Start: 07-22-2022 take 1 tablet by lennie th four times daily as needed for pain dicyclomine (Bentyl) 20 mg tablet Indications: Abdominal lymphadenopathy Take 1 tablet (20 mg) by mouth 4 times a day as needed (Abd pain). 40 tablet 0 07/22/2022 Active Start: 06-13-2022 End: 07-22-2022 take 1 tablet by mouth four times daily as needed for pain dicyclomine (Bentyl) 20 mg tablet Indications: Abdominal lymphadenopathy Take 1 tablet (20 mg) by mouth 4 times a day as needed (Abd pain). 40 tablet 0 07/08/2022 07/22/2022 Discontinued (Reorder) Comment on above: May cause drowsiness . Alcohol may intensify this effect. Use care when operating dangerous machinery. diphenhydrAMINE hydrochloride 2.5 mg/ml oral solution (1 source) Histamine-1 Receptor Antagonist Start: 2023 take 12.5 mg by mouth every six hours as needed 12.5 mg, oral, Every 6 hours PRN, itching, Starting on Tue06/10/23 at 1437, Phase II/On Unit docusate sodium 100 mg oral capsule (20 sources) Start: 2022 take 1 capsule by mouth twice daily as needed for constipation docusate sodium (Colace) 100 mg capsule Indications: Chronic constipation Take 1 capsule (100 mg) by mouth 2 times a day as needed for constipation. 60 capsule 06/15/2022 Active doxycycline monohydrate 100 mg oral tablet (2 sources) Tetracycline-class Drug Start: 2022 End: 2022 take 1 tablet by mouth in the morning doxycycline (Adoxa) 100 mg tablet Indications: Gross hematuria , Dysuria Take 1 tablet (100 mg) by mouth in the morning and 1 tablet (100 mg) before bedtime. Do all this for 7 days. Take with a full glass of water and do not lie down for at least 30 minutes after. 14 tablet 0 07/16/2022 07/22/2022 Discontinued (Therapy completed) DULoxetine 20 mg delayed release oral capsule (20 sources) Serotonin and Norepinephrine Reuptake Inhibitor Start: 2022 take 20 mg by mouth once daily 20 mg, oral, Daily, First dose on Tue04/13/23 at 0900 Do not crush or chew. Start: 05-19-2021 End: 12-21-2022 take 1 capsule by mouth once daily DULoxetine (Cymbalta) [address] capsule Take 1 capsule (20 mg) by mouth once daily. 0 05/19/2021 12/21/2022 Discontinued (Reorder) Start: 05-19-2021 DULoxetine HCl - 20 MG Oral Capsule Delayed Release Particles Quantity: 90 Refills: 0 Ordered: 16-Aug-2021 DO Start : 19-May-2021 Active take 1 capsule by [facility] twice daily DULoxetine 20 mg oral delayed release capsule ; 1 cap(s) orally 2 times a day Quantity: 0 Refills: 0 Ordered: 01-Sep-2021 Isha Bruce Generic Substitution Allowed 0.4 ml enoxaparin sodium 100 mg/ml prefilled syringe (2 sources) Low Molecular Weight Heparin Start: 04-13-2023 inject 40 mg by subcutaneous injection every twelve hours 40 mg, subcutaneous, Every 12 hours scheduled, First dose on Tue04/13/23 at 1015 Start: 04-04-2023 inject 40 mg by subc utaneous injection every twelve hours 40 mg, subcutaneous, Every 12 hours scheduled, First dose on Tue04/04/23 at 2100 ergocalciferol 1.25 mg oral capsule (20 sources) Provitamin D2 Compound Start: 02-21-2023 End: 08-25-2023 ergocalciferol (Vitamin D-2) 1.25 MG (60728 UT) capsule Indications: Vitamin D deficiency Take 1 cap twice weekly (on separate days) 25 capsule 3 02/21/2023 08/25/2023 Discontinued (Therapy completed) Start: 11-25-2022 End: 11-25-2023 take 1 capsule by mouth every week ergocalciferol (Vitamin D-2) 1.25 MG (90127 UT) capsule Indications: Vitamin D deficiency Take 1 capsule (50,000 Units) by mouth 1 (one) time per week. 13 capsule 3 11/25/2022 02/21/2023 Discontinued (Reorder) escitalopram 10 mg oral tablet (2 sources) Serotonin Reuptake Inhibitor Start: 06-10-2023 escitalopram (Lexapr o) tablet 20 mg Start: 04-13-2023 escitalopram ( Lexapro) tablet 20 mg formoterol fumarate 0.01 mg/ml inhalation solution (1 source) beta2-Adrenergic Agonist Start: 06-10-2023 formo terol (Perforomist) 20 mcg/2 mL nebulizer solution 20 mcg FreeStyle glucose monitoring kit (20 sources) Start: 03-08-2023 FreeStyle gluc ose monitoring kit Indications: Type 2 diabetes mellitus with stage 3a chronic kidney disease, with long-term current use of insulin (Multi) 1 each 2 times a day as needed (hyperglycemia and hypoglycemia symptoms). 1 each 2 03/08/2023 Active Start: 03-08-2023 FreeStyle gluc ose monitoring kit Indications: Type 2 diabetes mellitus with stage 3a chronic kidney disease, with long-term current use of insulin (CMS/HCC) 1 each 2 times a day as needed (hyperglycemia and hypoglycemia symptoms). 1 each 2 03/08/2023 Suspended Start: 03-08-2023 FreeStyle gluc ose monitoring kit Indications: Type 2 diabetes mellitus with stage 3a chronic kidney disease, with long-term current use of insulin (CMS/HCC) 1 each 2 times a day as needed (hyperglycemia and hypoglycemia symptoms). 1 each 2 03/08/2023 Active Start: 06-24-2022 End: 03-08-2023 FreeStyle glucose monitoring kit Indications: Type 2 diabetes mellitus with stage 3a chronic kidney disease, with long-term current use of insulin (CMS/HCC) 1 each 2 times a day as needed (hyperglycemia and hypoglycemia symptoms). 1 each 2 06/24/2022 03/08/2023 Discontinued (Reorder) Start: 06-24-2022 FreeStyle gluc ose monitoring kit Indications: Type 2 diabetes mellitus with stage 3a chronic kidney disease, with long-term current use of insulin (CMS/HCC) 1 each 2 times a day as needed (hyperglycemia and hypoglycemia symptoms). 1 each 2 06/24/2022 Active gabapentin 800 mg oral tablet (20 sources) Anti-epileptic Agent Start: 08-25-2023 take 1 tablet by mouth three times daily gabapentin (Neurontin) 800 mg tablet Indications: Lumbar radiculopathy, chronic , Degenerative lumbar spinal stenosis , Degenerative disc disease at L5-S1 level , S/P total knee arthroplasty, left Take 1 tablet (800 mg) by mouth 3 times a day. 90 tablet 1 08/25/2023 Active Start: 07-06-2023 End: 08-25-2023 take 1 tablet by mouth three times daily gabapentin (Neurontin) 800 mg tablet Indications: Degenerative lumbar spinal stenosis , Lumbar radiculopathy, chronic , Degenerative disc disease at L5-S1 level , S/P total knee arthroplasty, left Take 1 tablet (800 mg) by mouth 3 times a day. 90 tablet 1 07/06/2023 08/25/2023 Discontinued (Reorder) Start: 06-16-2023 End: 07-06-2023 take 1 tablet by mouth three times daily gabapentin (Neurontin) 600 mg tablet Indications: Lumbar radiculopathy, chronic Take 1 tablet (600 mg) by mouth 3 times a day. 90 tablet 1 06/16/2023 07/06/2023 Discontinued (Therapy completed) Start: 06-11-2023 gabapentin (Ne urontin) capsule 300 mg Start: 06-10-2023 End: 06-11-2023 take 1 capsule by mouth three times daily 600 mg, oral, 3 times daily, First dose on Tue06/10/23 at 2100 Capsules may be opened and sprinkled on food (eg, applesauce, orange juice, pudding). Capsules may be opened and sprinkled on food (eg, applesauce, orange juice, pudding Start: 04-13-2023 take 1 capsule by [facility] three times daily 600 mg, oral, 3 times daily, First dose on Tue04/13/23 at 0900 Capsules may be opened and sprinkled on food (eg, applesauce, orange juice, pudding). Capsules may be opened and sprinkled on food (eg, applesauce, orange juice, pudding Start: 01-04-2023 End: 04-28-2023 take 1 tablet by mouth three times daily gabapentin (Neurontin) 600 mg tablet Indications: Lumbar radiculopathy, chronic Take 1 tablet (600 mg) by mouth 3 times a day. 90 tablet 1 04/28/2023 Active Start: 10-29-2021 End: 01-19-2023 take 1 capsule by mouth in the morning gabapentin (Neurontin) 400 mg capsule Indications: Lumbar radiculopathy, chronic Take 1 capsule (400 mg) by mouth in the morning and 1 capsule (400 mg) before bedtime. 60 capsule 0 07/08/2022 01/19/2023 Discontinued (Therapy completed) Start: 10-29-2021 End: 07-08-2022 take 1 capsule by mouth twice daily Gabapentin 400 MG Oral Capsule TAKE 1 CAPSULE TWICE DAILY. Quantity: 180 Refills: 0 Ordered: 22-Apr-2022 Callie Mcdonough PA-C Start : 29-Oct-2021 Active OARRS reviewed, void script 30 days from written date Start: 10-29-2021 take 1 capsule by mo ut twice daily Gabapentin 300 MG Oral Capsule Take 1 capsule twice daily Quantity: 60 Refills: 1 Ordered: 29-Oct-2021 Kelly Carrasco PA-C Start : 29-Oct-2021 Active Start: 10-29-2021 take 2 capsules by [facility] twice daily Gabapentin 300 MG Oral Capsule TAKE 2 CAPSULE Twice daily Quantity: 120 Refills: 0 Ordered: 12-Nov-2021 Kelly Carrasco PA-C Start : 29-Oct-2021 Active Start: 05-19-2021 Gabapentin 400 MG Oral Capsule Quantity: 90 Refills: 0 Ordered: 17-Aug-2021 DO Start : 19-May-2021 Active Start: 06-10-2020 End: 02-19-2021 take 1 capsule by mouth three times daily gabapentin (NEURONTIN) 400 MG capsule Indications: Degenerative disc disease at L5-S1 level Take 1 (one) capsule (400 mg total) by mouth 3 (three) times a day . 90 capsule 2 11/12/2020 02/19/2021 Active glucagon (rdna) 1 mg injection (4 sources) Antihypoglycemic Agent Start: 06-10-2023 glucago n (Glucagen) injection 1 mg Start: 04-13-2023 1 mg, intramus cular, Every 15 min PRN, low blood sugar - see comments, For blood glucose less than or equal to 70 mg/dL and no IV access, Starting on Tue04/13/23 at 0854 Give until blood glucose is 100 mg/dL or greater. If patient DOES NOT HAVE secure IV access & patient is unconscious, NPO or is unable to eat or drink. Start: 04-04-2023 1 mg, intramus cular, Every 15 min PRN, low blood sugar - see comments, For blood glucose less than or equal to 70 mg/dL and no IV access, Starting on Tue04/04/23 at 1456 Give until blood glucose is 100 mg/dL or greater. If patient DOES NOT HAVE secure IV access & patient is unconscious, NPO or is unable to eat or drink. 1000 ml glucose 100 mg/ml injection (8 sources) Start: 06-10-2023 dextrose 50 % injection 25 g Start: 06-10-2023 dextrose 10 % in water (D10W) infusion Start: 04-13-2023 25 g, intraven ous, Every 15 min PRN, For blood glucose less than or equal to 40 mg/dL, Starting on Tue04/13/23 at 0854 May repeat until blood glucose level reaches 100 mg/dL or greater. Push 2 - 3 mL/minute if patient has secure IV access. Start: 04-13-2023 0.3 g/kg/hr 97 .1 kg (291.3 mL/hr), intravenous, Once as needed, For blood glucose less than 70 mg/dL after 30 minutes of intervention. Discontinue once blood glucose reaches 100 mg/dL., Starting on Tue04/13/23 at 0854, For 1 dose Discontinue once blood glucose reaches 100 mg/dL. Start: 04-04-2023 25 g, intraven ous, Every 15 min PRN, For blood glucose less than or equal to 40 mg/dL, Starting on Tue04/04/23 at 1456 May repeat until blood glucose level reaches 100 mg/dL or greater. Push 2 - 3 mL/minute if patient has secure IV access. Start: 04-04-2023 0.3 g/kg/hr 97 .1 kg (291.3 mL/hr), intravenous, Once as needed, For blood glucose less than 70 mg/dL after 30 minutes of intervention. Discontinue once blood glucose reaches 100 mg/dL., Starting on Tue04/04/23 at 1456, For 1 dose Discontinue once blood glucose reaches 100 mg/dL. 12 hr guaiFENesin 600 mg extended release oral tablet (1 source) Start: 04-04-2023 take 600 mg by mouth every twelve hours as needed for congestion 600 mg, oral, Every 12 hours PRN, congestion, Starting on 04/04/23 at 1456 Administer with plenty of fluids to ensure proper action. Do not crush, chew, or split. 3 ml insulin glargine 100 unt/ml pen injector (20 sources) Insulin Analog Start: 06-11-2023 insulin glargine (Lantus) injection 42 Units Start: 06-10-2023 End: 06-11-2023 inject 40 [IU] by subcutaneous injection twice daily 40 Units, subcutaneous, 2 times daily, First dose on Tue06/10/23 at 2100 Start: 04-18-2023 End: 04-26-2024 insulin glargine (Lantus Queenie ostar U-100 Insulin) 100 unit/mL (3 mL) pen Indications: Diabetes mellitus with stage 3 chronic kidney disease (Multi) Inject 40 units Subcutaneously BID 75 mL 3 07/28/2023 Active Start: 04-18-2023 End: 04-26-2024 inject 40 [IU] by subcutaneous injection twice daily insulin glargine (Lantus) 100 unit/mL (3 mL) pen Indications: Diabetes mellitus with stage 3 chronic kidney disease (CMS/HCC) Inject 40 Units under the skin 2 times a day. Take as directed per insulin instructions. 21 mL 0 04/27/2023 04/26/2024 Active Start: 04-13-2023 inject 30 [IU] by keenan bcutaneous injection twice daily 30 Units, subcutaneous, 2 times daily, First dose on Tue04/13/23 at 2100 Start: 03-15-2023 insulin glargi ne (Lantus Solostar U-100 Insulin) 100 unit/mL (3 mL) pen Indications: Diabetes mellitus with stage 3 chronic kidney disease (CMS/HCC) Inject 40 units Subcutaneously BID 21 mL 3 03/15/2023 Active Start: 12-15-2022 insulin glargi ne (Lantus Solostar U-100 Insulin) 100 unit/mL (3 mL) pen Indications: Diabetes mellitus with stage 3 chronic kidney disease (CMS/HCC) Inject 65 units daily 21 mL 3 12/15/2022 Active Start: 12-15-2022 End: 03-15-2023 insulin glargine (Lantus Queenie ostar U-100 Insulin) 100 unit/mL (3 mL) pen Indications: Diabetes mellitus with stage 3 chronic kidney disease (CMS/HCC) Inject 65 units daily 21 mL 3 12/15/2022 03/15/2023 Discontinued (Reorder) Start: 08-05-2022 End: 12-09-2022 inject 65 [IU] by subcutaneous injection once daily insulin glargine (Lantus) 100 unit/mL (3 mL) pen Indications: Diabetes mellitus with stage 3 chronic kidney disease (CMS/HCC) Inject 65 Units under the skin once daily. 6 mL 3 08/05/2022 12/09/2022 Discontinued (Reorder) Start: 05-19-2021 inject 61 [IU] by keenan bcutaneous injection once daily insulin glargine (Lantus) 100 unit/mL (3 mL) pen Inject 61 Units under the skin once daily. 0 05/19/2021 Active Start: 05-19-2021 Lantus SoloSta r 100 UNIT/ML Subcutaneous Solution Pen-injector INJECT 61 UNIT Daily Quantity: 2 Refills: 11 Ordered: 10-May-2022 Callie Mcdonough PA-C Start : 19-May-2021 Active Start: 08-25-2020 End: 05-11-2021 Lantus Solostar U-100 Insuli n 100 unit/mL (3 mL) InPn Inject 60 (sixty) Units under the skin nightly Discontinue 40 units . 54 mL 2 11/12/2020 05/11/2021 inject 65 [IU] by keenan bcutaneous injection once daily at bedtime Lantus 100 units/mL subcutaneous solution ; 65 unit(s) subcutaneous once a day (at bedtime) Quantity: 0 Refills: 0 Ordered: 18-Oct-2022 Valencia Kent Generic Substitution Allowed inject 60 [IU] by keenan bcutaneous injection once daily at bedtime Lantus 100 units/mL subcutaneous solution ; 60 unit(s) subcutaneous once a day (at bedtime) Quantity: 0 Refills: 0 Ordered: 01-Sep-2021 Kelly Zeng Generic Substitution Allowed Lantus Solostar Pen 100 units/mL subcutaneous solution Quantity: 0 Refills: 0 Ordered: 01-Sep-2021 Isha Bruce Generic Substitution Allowed insulin lispro 100 unt/ml injectable solution (5 sources) Insulin Analog Start: 06-11-2023 End: 06-11-2023 insulin lispro (HumaLOG) injection 0-10 Units Start: 04-13-2023 0-15 Units, keenan bcutaneous, 3 times daily with meals, First dose on Tue04/13/23 at 0900 Blood Glucose Target - Daytime (mg/dL): 150 Blood Glucose Target - Bedtime (mg/dL): 150 Blood Glucose Target - Overnight (mg/dL): 150 Hyperglycemia Correction Factor - Daytime: 50 Hyperglycemia Correction Factor - Bedtime: 50 Hyperglycemia Correction Factor - Overnight: 50 Carb Ratio - Breakfast (g/unit): 15 Carb Ratio - Lunch (g/unit): 15 Carb Ratio - Dinner (g/unit): 15 Carb Ratio - Bedtime (g/unit): 15 Carb Ratio - Overnight (g/unit): 15 Start: 04-13-2023 0-6 Units, sub cutaneous, With snacks, high blood sugar, Starting on Tue04/13/23 at 0854 Carb Ratio - AM Snack (g/unit): 15 Carb Ratio - PM Snack (g/unit): 15 Start: 04-04-2023 0-5 Units, sub cutaneous, 4 times daily before meals and nightly, First dose on Tue04/04/23 at 1600 Insulin Lispro Corrective Scale #1 Hypoglycemia protocol Call LIP unit(s) if Blood Glucose is between 0 - 70 mg/dL 0 unit(s) if Blood glucose is between 71-150 1 unit(s) if Blood glucose is between 151-200 2 unit(s) if Blood glucose is between 201-250 3 unit(s) if Blood glucose is between 251-300 4 unit(s) if Blood glucose is between 301-350 5 unit(s) if Blood glucose is between 351-400 Notify provider unit(s) if Blood Glucose is greater than 400 mg/dL insulin syringes, disposable , 1 mL Syrg (5 sources) Start: 11-12-2020 insulin syring es, disposable, 1 mL Syrg Indications: Uncontrolled type 2 diabetes mellitus with complication (HCC) 1 Syringe by Miscellaneous route 3 (three) times a day . 100 each 11/12/2020 Active Start: 11-12-2020 insulin syring es, disposable, 1 mL Syrg Indications: Uncontrolled type 2 diabetes mellitus with complication (HCC) 1 Syringe by Miscellaneous route 3 (three) times a day . 100 each 11/12/2020 Start: 05-19-2017 insulin syring es, disposable, 1 mL Syrg Indications: Uncontrolled type 2 diabetes mellitus with complication, unspecified halfway insulin use status 1 Syringe by Miscellaneous route 3 (three) times a day. 100 each 05/19/2017 Active lactulose 667 mg/ml oral solution (3 sources) Osmotic Laxative Start: 06-24-2022 End: 07-24-2022 take 15 mL by mouth twice daily as needed for constipation lactulose 20 gram/30 mL oral solution Indications: Chronic constipation Take 15 mL (10 g) by mouth 2 times a day as needed (constipation). 900 mL 0 06/24/2022 07/24/2022 Active levothyroxine sodium 0.05 mg oral tablet (20 sources) l-Thyroxine Start: 07-28-2023 take 1 tablet by mouth once daily levothyroxine (Synthroid, Levoxyl) 50 mcg tablet Indications: Acquired hypothyroidism Take 1 tablet (50 mcg) by mouth once daily. 90 tablet 3 07/28/2023 Active Start: 04-14-2023 levothyroxine (Synthroid, Levoxyl) tablet 25 mcg Start: 02-21-2023 take 50 ug by mouth once daily 50 mcg, oral, Nightly, First dose on Tue04/13/23 at 2100 Start: 12-28-2022 End: 02-21-2023 take 1 tablet by mouth once daily levothyroxine (Synthroid, Levoxyl) 25 mcg tablet Indications: Acquired hypothyroidism Take 1 tablet (25 mcg) by mouth once daily. 90 tablet 3 12/28/2022 02/21/2023 Discontinued (Reorder) Start: 07-22-2022 End: 12-21-2022 take 1 tablet by mouth once daily levothyroxine (Synthroid, Levoxyl) 25 mcg tablet Indications: Acquired hypothyroidism Take 1 tablet (25 mcg) by mouth once daily. 30 tablet 5 07/22/2022 12/21/2022 Discontinued (Reorder) take 1 tablet by lennie th once daily levothyroxine 25 mcg (0.025 mg) oral tablet ; 1 tab(s) orally once a day Quantity: 0 Refills: 0 Ordered: 18-Oct-2022 Valencia Kent Generic Substitution Allowed linaclotide 0.145 mg oral capsule (20 sources) Guanylate Cyclase-C Agonist Start: 12-15-2022 take 1 capsule by mouth once daily before breakfast 145 mcg, oral, Daily before breakfast, First dose on [place] 04/14/23 at 0700 Do not break or crush capsule. If difficulty swallowing, may sprinkle capsule contents in 30 mL water or 5 mL applesauce if swallowed without chewing. Use immediately after mixing. loratadine 10 mg oral tablet (20 sources) Start: 06-10-2020 End: 04-13-2023 take 1 tablet by mouth once daily loratadine (CLARITIN) 10 mg tablet Take 1 (one) tablet (10 mg total) by mouth daily . 90 tablet 1 11/12/2020 05/21/2021 magnesium oxide 400 mg oral tablet (20 sources) Start: 07-28-2023 take 1 tablet by mouth three times daily magnesium oxide (Mag-Ox) 400 mg tablet Indications: Hypomagnesemia Take 1 tablet (400 mg) by mouth 3 times a day. 270 tablet 3 07/28/2023 Active Start: 02-21-2023 take 1 tablet by lennie th three times daily magnesium oxide (Mag-Ox) 400 mg tablet Indications: Hypomagnesemia Take 1 tablet (400 mg) by mouth 3 times a day. 270 tablet 3 02/21/2023 Active Start: 12-28-2022 End: 02-21-2023 take 1 tablet by mouth twice daily magnesium oxide (Mag-Ox) 400 mg tablet Indications: Hypomagnesemia Take 1 tablet (400 mg) by mouth 2 times a day. 180 tablet 3 12/28/2022 02/21/2023 Discontinued (Reorder) Start: 07-22-2022 End: 12-21-2022 take 1 tablet by mouth in the morning magnesium oxide (Mag-Ox) 400 mg tablet Indications: Hypomagnesemia Take 1 tablet (400 mg) by mouth in the morning and 1 tablet (400 mg) before bedtime. 60 tablet 5 07/22/2022 12/21/2022 Discontinued (Reorder) Start: 09-10-2021 End: 07-22-2022 take 1 tablet by mouth in the morning magnesium oxide (Mag-Ox) 400 mg tablet Indications: Hypomagnesemia Take 1 tablet (400 mg) by mouth in the morning and 1 tablet (400 mg) before bedtime. 60 tablet 5 07/22/2022 Active Start: 06-10-2020 End: 05-11-2021 take 1 tablet by mouth once daily magnesium oxide (MagOx) 400 mg (241.3 mg magnesium) tablet Take 1 (one) tablet (400 mg total) by mouth daily . 90 tablet 1 11/12/2020 05/11/2021 melatonin 3 mg oral tablet (1 source) Start: 04-04-2023 take 3 mg by mouth once daily as needed for sleep 3 mg, oral, Nightly PRN, sleep, Starting on Tue04/04/23 at 1456 methocarbamol 500 mg oral tablet (20 sources) Muscle Relaxant Start: 08-25-2023 take 1 tablet by mouth three times daily as needed for muscle spasms methocarbamol (Robaxin) 500 mg tablet Indications: Lumbar radiculopathy, chronic Take 1 tablet (500 mg) by mouth 3 times a day as needed for muscle spasms. 90 tablet 08/25/2023 Active Start: 01-04-2023 End: 08-25-2023 take 1 tablet by mouth three times daily as needed for muscle spasms methocarbamol (Robaxin) 500 mg tablet Indications: Lumbar radiculopathy, chronic Take 1 tablet (500 mg) by mouth 3 times a day as needed for muscle spasms. 90 tablet 04/28/2023 08/25/2023 Discontinued (Reorder) Start: 12-03-2021 End: 04-22-2022 take 1 tablet by mouth three times daily as needed for pain Methocarbamol 500 MG Oral Tablet TAKE 1 TABLET 3 times daily Quantity: 90 Refills: 2 Ordered: 04-Jan-2023 Kelly Carrasco PA-C Start : 03-Dec-2021 Active PRN pain-spasm methylPREDNISolone 40 mg injection (2 sources) Corticosteroid Start: 04-04-2023 40 mg, intrave nous, Every 8 hours scheduled, First dose on 04/04/23 at 1500 Start: 04-04-2023 End: 04-04-2023 methylPREDNISolone sod succi berhane (SOLU-Medrol) injection 125 mg metoprolol tartrate 50 mg oral tablet (20 sources) beta-Adrenergic Nelson Start: 04-18-2023 End: 10-15-2023 take 1 tablet by mouth twice daily metoprolol tartrate (Lopressor) 50 mg tablet Indications: Tachycardia , Heart palpitations , Hypertension associated with diabetes (Multi) Take 1 tablet by mouth 2 times a day. 180 tablet 3 07/28/2023 Active Start: 04-13-2023 End: 04-13-2023 metoprolol succinate XL (Top rol-XL) 24 hr tablet 50 mg montelukast 10 mg oral tablet (20 sources) Leukotriene Receptor Antagonist Start: 12-28-2022 take 10 mg by mouth once daily 10 mg, oral, Nightly, First dose on Tue04/13/23 at 2100 Start: 05-19-2021 Montelukast So dium 10 MG Oral Tablet Quantity: 90 Refills: 0 Ordered: 16-Aug-2021 DO Start : 19-May-2021 Active Start: 06-10-2020 End: 12-21-2022 take 1 tablet by mouth once daily at bedtime montelukast (Singulair) 10 mg tablet Take 1 tablet (10 mg) by mouth once daily at bedtime. 0 05/19/2021 12/21/2022 Discontinued (Reorder) Naloxone (1 source) Opioid Antagonist Start: 06-10-2023 0.2 mg, intr avenous, Every 5 min PRN, opioid reversal, Sedation, Starting on Tue06/10/23 at 1437, Phase II/On Unit If respiratory rate is less than 8 breaths/minute or patient is difficult to arouse stop any narcotics and contact physician. Administer slow IV push. Repeat as ordered until patient's respiratory rate is greater than 12 breaths/minute. naproxen 500 mg oral tablet (20 sources) Nonsteroidal Anti-inflammatory Drug Start: 09-01-2021 End: 04-14-2023 naproxen (Naprosyn) 500 mg tablet 1 tablet (500 mg) 2 times a day with meals. 0 09/02/2021 04/14/2023 Discontinued (Stop Taking at Discharge) Start: 09-01-2021 Naproxen 500 M G Oral Tablet Quantity: 14 Refills: 0 Ordered: 02-Sep-2021 DO Start : 01-Sep-2021 Active Comment on above: Check with your doct or before becoming .May cause drowsiness or dizziness.Obtain medical advice before taking any non-prescription drugs as some may affect the action of this medication.Take with food or milk. Nebulizer (8 sources) Start: 07-07-2021 Nebulizer ; Nebulizer machine Use PRN Quantity: 1 Refills: 0 Ordered: 07-Jul-2021 Bilderback, Marty Start: 07-Jul-2021 Generic Substitution Allowed nebulizers misc (20 sources) Start: 07-07-2021 nebulizers misc 1 each. 07/07/2021 Active Start: 07-07-2021 nebulizers mis c 1 each. 0 07/07/2021 Suspended Start: 07-07-2021 nebulizers mis c 1 each. 0 07/07/2021 Active Nicotine (3 sources) Cholinergic Nicotinic Agonist Start: 04-13-2023 End: 05-25-2023 nicotine (Nicoderm CQ) 21 mg/24 hr patch 1 patch Start: 04-04-2023 nicotine (Canelo derm CQ) 21 mg/24 hr patch 1 patch nicotine 21 mg-1 4 mg-7 mg transdermal film, extended release ; 1 each transdermal once a day Quantity: 0 Refills: 0 Ordered: 01-Sep-2021 Isha Bruce Generic Substitution Allowed nystatin 100 unt/mg topical powder (20 sources) Polyene Antifungal Start: 04-14-2023 nystatin (M ycostatin) 100,000 unit/gram powder Indications: Breast abrasion, left, initial encounter Apply 1 Application topically 3 times a day. 1 g 04/14/2023 Active Start: 04-13-2023 nystatin (Myco statin) 100,000 unit/gram powder 1 Application Start: 07-27-2021 nystatin (Myco statin) 100,000 unit/gram powder Apply topically 2 times a day. 07/27/2021 Active Start: 07-07-2021 End: 07-20-2021 nystatin 100,000 units/g top ical powder ; Apply topically to affected area 3 times a day x 14 days Quantity: 1 Refills: 0 Ordered: 07-Jul-2021 Marty Feliz Start: 07-Jul-2021 End: 20-Jul-2021 Generic Substitution Allowed Comments: For external use only. Comment on above: For external use onl y. omeprazole 40 mg delayed release oral capsule (20 sources) Proton Pump Inhibitor Start: 05-19-19 End: 02-22-20 23 take 1 capsule by mouth once daily before mealtime omeprazole (PriLOSEC) [address] capsule Indications: Gastroesophageal reflux disease without esophagitis Take 1 capsule (40 mg) by mouth once daily in the morning. Take before meals. 90 capsule 3 02/21/2023 Active Start: 05-19-2021 Omeprazole 40 MG Oral Capsule Delayed Release Quantity: 90 Refills: 0 Ordered: 16-Aug-2021 DO Start : 19-May-2021 Active Start: 06-10-2020 End: 05-11-2021 take 1 capsule by mouth once daily before mealtime omeprazole (PRILOSEC) 40 MG capsule Take 1 (one) capsule (40 mg total) by mouth daily Before meals . 90 capsule 1 11/12/2020 05/11/2021 ondansetron ODT (Zofran-ODT) disintegrating tablet 4 mg (2 sources) Start: 06-10-2023 take 1 tablet by mouth every eight hours as needed ondansetron ODT (Zofran-ODT) disintegrating tablet 4 mg Start: 04-04-2023 take 1 tablet by lennie th every eight hours as needed ondansetron ODT (Zofran-ODT) disintegrating tablet 4 mg oxyCODONE hydrochloride 5 mg oral tablet (11 sources) Opioid Agonist Start: 07-22-2023 End: 07-29-2023 take 1 tablet by mouth every six hours for pain oxyCODONE (Roxicodone) 5 mg immediate release tablet Indications: S/P TKR (total knee replacement), left Take 1 tablet (5 mg) by mouth every 6 hours if needed for severe pain (7 - 10) for up to 7 days. 28 tablet 07/22/2023 07/29/2023 Active Start: 06-10-2023 take 1 tablet by lennie th every four hours as needed 10 mg, oral, Every 4 hours PRN, pain severe (7-10), first line, Starting on Tue06/10/23 at 1437, Phase II/On Unit If ordered PRN for pain, nurse is permitted to administer this medication for higher pain scores based on patient preference? Yes Start: 06-10-2023 take 1 tablet by lennie th every four hours as needed 5 mg, oral, Every 4 hours PRN, pain moderate (4-6), first line, Starting on Tue06/10/23 at 1437, Phase II/On Unit If ordered PRN for pain, nurse is permitted to administer this medication for higher pain scores based on patient preference? Yes Start: 06-10-2023 End: 06-24-2023 take 1 tablet by mouth every six hours for pain oxyCODONE (Roxicodone) 5 mg immediate release tablet Indications: S/P TKR (total knee replacement), left Take 1 tablet (5 mg) by mouth every 6 hours if needed for severe pain (7 - 10) for up to 7 days. 28 tablet 0 06/17/2023 06/24/2023 Active Start: 04-04-2023 take 1 tablet by lennie th every six hours as needed oxyCODONE (Roxicodone) immediate release tablet 5 mg Start: 10-22-2020 End: 10-25-2020 oxyCODONE (ROXICODONE) 5 MG immediate release tablet Indications: Left flank pain Take 0.5 (one-half) tablet (2.5 mg total) by mouth every 6 (six) hours as needed for pain (Days supply per fill: 3) . 6 tablet 0 10/22/2020 10/25/2020 Active oxygen (O2) therapy (3 sources) Start: 06-10-2023 2 L/min, inhal ation, Continuous, Starting on Tue06/10/23 at 1500, Phase II/On Unit Titrate supplemental oxygen to maintain oxygen saturation greater than or equal to 92%. Device: Nasal Cannula Rate in liters per minute: 2 LPM Keep O2 Sat Above: 92% Start: 06-10-2023 oxygen (O2) th erapy Start: 04-04-2023 inhalation, Co ntinuous PRN - O2/gases, other, Starting on Tue04/04/23 at 1456 Device: Nasal Cannula Rate in liters per minute: 2 LPM Keep O2 Sat Above: 92% Ozempic 2 mg/dose (8 mg/3 mL) pen injector (20 sources) Start: 05-23-2023 inject 2 mg by subcutaneous injection every week Ozempic 2 mg/dose (8 mg/3 mL) pen injector Indications: Diabetes mellitus with stage 3 chronic kidney disease (Multi) INJECT 2 MG UNDER THE SKIN 1 (ONE) TIME PER WEEK. 3 mL 05/23/2023 Active Start: 05-23-2023 inject 2 mg by subcu taneous injection every week Ozempic 2 mg/dose (8 mg/3 mL) pen injector Indications: Diabetes mellitus with stage 3 chronic kidney disease (CMS/HCC) INJECT 2 MG UNDER THE SKIN 1 (ONE) TIME PER WEEK. 3 mL 0 05/23/2023 Active pantoprazole 40 mg delayed release oral tablet (2 sources) Proton Pump Inhibitor Start: 06-11-2023 pantoprazole (ProtoNix) EC tablet 40 mg Start: 04-05-2023 pantoprazole ( ProtoNix) EC tablet 40 mg polyethylene glycol [id number] [id number] mg powder for oral solution (2 sources) Osmotic Laxative Start: 06-12-2023 polyethylene glycol (Glycolax, Miralax) packet 17 g Start: 04-13-2023 17 g, oral, Da neeta, First dose on Tue04/13/23 at 0900 Bowel Regimen - for prevention of constipation. potassium chloride 10 meq extended release oral tablet (20 sources) Start: 05-19-2021 End: 06-11-2023 take 1 tablet by mouth once daily potassium chloride CR (Klor-Con) 10 mEq ER tablet Take 1 tablet (10 mEq) by mouth once daily. 05/19/2021 Active Start: 05-19-2021 Potassium Chlo ride ER 10 MEQ Oral Tablet Extended Release Quantity: 180 Refills: 0 Ordered: 16-Aug-2021 DO Start : 19-May-2021 Active Start: 06-10-2020 End: 05-21-2021 take 1 tablet by mouth twice daily potassium chloride 10 MEQ CR tablet Take 1 (one) tablet (10 mEq total) by mouth 2 (two) times a day . 180 tablet 1 11/12/2020 05/21/2021 take 1 capsule by [facility] once daily potassium chloride 10 mEq oral capsule, extended release ; 1 cap(s) orally once a day Quantity: 0 Refills: 0 Ordered: 18-Oct-2022 Valencia Kent Generic Substitution Allowed take 1 capsule by mo ut twice daily potassium chloride 10 mEq oral capsule, extended release ; 1 cap(s) orally 2 times a day Quantity: 0 Refills: 0 Ordered: 01-Sep-2021 Isha Bruce Generic Substitution Allowed pravastatin sodium 80 mg oral tablet (5 sources) HMG-CoA Reductase Inhibitor Start: 06-10-2020 End: 05-21-2021 take 1 tablet by mouth once daily pravastatin (PRAVACHOL) 80 MG tablet Take 1 (one) tablet (80 mg total) by mouth nightly . 90 tablet 1 11/12/2020 05/21/2021 predniSONE 10 mg oral tablet (10 sources) Start: 03-08-2023 End: 04-14-2023 take 2 tablets by mouth three times daily, then take 1 tablet by mouth three times daily, then take 1 tablet by mouth twice daily, then take 1 tablet by mouth once daily predniSONE (Deltasone) 10 mg tablet Indications: Chronic obstructive pulmonary disease with acute exacerbation (CMS/HCC) Take 2 tab po tid x 3 days then 1 tab po tid x 3 days then 1 tab po bid x 3 days then 1 tab daily x 3 days 36 tablet 0 03/08/2023 04/14/2023 Discontinued (Stop Taking at Discharge) Start: 01-19-2023 End: 01-26-2023 take 3 tablets by mouth once daily predniSONE (Deltasone) 10 mg tablet Indications: Acute non-recurrent frontal sinusitis Take 3 tablets (30 mg) by mouth once daily. 15 tablet 0 01/19/2023 01/26/2023 Discontinued (Therapy completed) Start: 07-07-2021 End: 07-10-2021 take 2 tablets by mouth once daily at mealtime predniSONE 20 mg oral tablet ; 2 tab(s) orally once a day x 4 days Quantity: 8 Refills: 0 Ordered: 07-Jul-2021 Marty Feliz Start: 07-Jul-2021 End: 10-Jul-2021 Generic Substitution Allowed Comments: It is very important that you take or use this exactly as directed. Do not skip doses or discontinue unless directed by your doctor.Obtain medical advice before taking any non-prescription drugs as some may affect the action of this medication.Take with food or milk. take 1 tablet by lennie th once daily predniSONE 10 mg oral tablet ; 1 tab(s) orally once a day Quantity: 0 Refills: 0 Ordered: 01-Sep-2021 Teo, Isha Generic Substitution Allowed Comment on above: It is very important that you take or use this exactly as directed. Do not skip doses or discontinue unless directed by your doctor.Obtain medical advice before taking any non-prescription drugs as some may affect the action of this medication.Take with food or milk. promethazine hydrochloride 25 mg oral tablet (20 sources) Phenothiazine Start: take 1 tablet by mouth every eight hours for nausea promethazine (Phenergan) 25 mg tablet Indications: Gastroenteritis Take 1 tablet (25 mg) by mouth every 8 hours if needed for nausea or vomiting. 30 tablet 03/28/2023 Active psyllium 3400 mg powder for oral suspension (1 source) Start: 1 packet, oral, Daily, First dose on Tue04/04/23 at 1500 Bowel Regimen - for prevention of constipation. 1 mg dose 1.5 ml semaglutide 1.34 mg/ml pen injector (12 sources) Start: 021 End: semaglutide (Ozempic) 1 mg/dose (2 mg/1.5 mL) Pen Inject 1 (one) mg under the skin every 7 days Give 3 mo supply . 18 mL 1 11/12/2020 05/11/2021 inject 1 mg by subcu taneous injection every week Ozempic (1 mg dose) ; 1 milligram(s) subcutaneous once a week on Tuesday Quantity: 0 Refills: 0 Ordered: 01-Sep-2021 Kelly Zeng Generic Substitution Allowed inject 1 mg by subcu taneous injection every week Ozempic (1 mg dose) ; 1 milligram(s) subcutaneous once a week on Tuesday Quantity: 0 Refills: 0 Ordered: 01-Sep-2021 Karri Kelly Generic Substitution Allowed Ozempic (1 mg do se) Quantity: 0 Refills: 0 Ordered: 24-May-2022 Teo, Isha Generic Substitution Allowed semaglutide 2 mg/dose (8 mg/3 mL) pen injector (20 sources) Start: 04-27-2023 inject 2 mg by subcutaneous injection every week semaglutide 2 mg/dose (8 mg/3 mL) pen injector Indications: Diabetes mellitus with stage 3 chronic kidney disease (CMS/HCC) Inject 2 mg under the skin 1 (one) time per week. 3 mL 0 04/27/2023 Active Start: 02-21-2023 semaglutide 2 mg/dose (8 mg/3 mL) pen injector Indications: Class 3 severe obesity due to excess calories with serious comorbidity and body mass index (BMI) of 40.0 to 44.9 in adult (Multi) , Diabetes mellitus with stage 3 chronic kidney disease (Multi) Inject 2 mg under the skin 1 (one) time per week. 9 mL 3 02/21/2023 Active Start: 02-21-2023 semaglutide 2 mg/dose (8 mg/3 mL) pen injector Indications: Class 3 severe obesity due to excess calories with serious comorbidity and body mass index (BMI) of 40.0 to 44.9 in adult (CMS/HCC) , Diabetes mellitus with stage 3 chronic kidney disease (CMS/HCC) Inject 2 mg under the skin 1 (one) time per week. 9 mL 3 02/21/2023 Suspended Start: 02-21-2023 semaglutide 2 mg/dose (8 mg/3 mL) pen injector Indications: Class 3 severe obesity due to excess calories with serious comorbidity and body mass index (BMI) of 40.0 to 44.9 in adult (CMS/HCC) , Diabetes mellitus with stage 3 chronic kidney disease (CMS/HCC) Inject 2 mg under the skin 1 (one) time per week. 9 mL 3 02/21/2023 Active sertraline 50 mg oral tablet (20 sources) Serotonin Reuptake Inhibitor Start: 07-28-2023 take 1 tablet by mouth once daily sertraline (Zoloft) 50 mg tablet Indications: Depression, unspecified depression type Take 1 tablet (50 mg) by mouth once daily. 90 tablet 3 07/28/2023 Active Start: 12-15-2022 take 1 tablet by lennie once daily sertraline (Zoloft) 50 mg tablet Indications: Depression, unspecified depression type Take 1 tablet (50 mg) by mouth once daily. 90 tablet 3 12/15/2022 Active Start: 09-09-2020 End: 09-27-2022 take 1 tablet by mouth once daily sertraline (Zoloft) 50 mg tablet Indications: Depression, unspecified depression type Take 1 tablet (50 mg) by mouth once daily. 30 tablet 0 08/12/2022 09/27/2022 Discontinued (Reorder) silver sulfADIAZINE 10 mg/ml topical cream (5 sources) Sulfonamide Antibacterial Start: 03-08-2023 End: 05-07-2023 silver sulfADIAZINE (Silvadene) 1 % cream Indications: Abdominal wall abscess Apply to affected area twice a day or with each dressing change. 20 g 0 03/08/2023 04/14/2023 Discontinued (Stop Taking at Discharge) tiotropium 0.018 mg inhalation powder (20 sources) Anticholinergic Start: 05-19-2021 take 1 capsule by inhalation once daily tiotropium (Spiriva with HandiHaler) [address] 1 capsule (18 mcg) into inhaler and inhale once daily. 05/19/2021 Active Start: 05-19-2021 Spiriva HandiH aler 18 MCG Inhalation Capsule Quantity: 90 Refills: 0 Ordered: 16-Aug-2021 DO Start : 19-May-2021 Active Start: 06-10-2020 End: 02-19-2021 take 1 capsule by inhalation once daily tiotropium (Spiriva with HandiHaler) [address] 1 (one) capsule (18 mcg total) into inhaler and inhale daily . 90 capsule 1 11/12/2020 02/19/2021 Active tiZANidine 2 mg oral tablet (20 sources) Central alpha-2 Adrenergic Agonist Start: 06-10-2023 take 1 tablet by mouth every six hours as needed 4 mg, oral, Every 6 hours PRN, muscle spasms, Starting on Tue06/10/23 at 1853 Start: 12-16-2021 take 1 tablet by lennie th every six hours as needed tiZANidine (Zanaflex) 4 mg tablet 1 tablet (4 mg) every 6 hours if needed. 12/16/2021 Active Start: 12-03-2021 End: 04-22-2022 take 1 capsule by mouth three times daily as needed for pain tiZANidine HCl - 4 MG Oral Capsule ONE CAPSULE BY MOUTH THREE TIMES DAILY Quantity: 30 Refills: 0 Ordered: 03-Dec-2021 Kelly Carrasco PA-C Start : 03-Dec-2021 End : 22-Apr-2022 Complete PRN PAIN/SPASM traMADol hydrochloride 50 mg oral tablet (2 sources) Opioid Agonist Start: 04-13-2023 take 1 tablet by mouth every eight hours as needed traMADol (Ultram) tablet 50 mg Start: 11-12-2020 End: 11-20-2020 traMADoL (ULTRAM) 50 mg tabl et Indications: Degenerative disc disease at L5-S1 level Take 1 (one) tablet (50 mg total) by mouth every 6 (six) hours as needed for pain (Days supply per fill: 8) . 18 tablet 0 11/12/2020 11/20/2020 traZODone hydrochloride 100 mg oral tablet (20 sources) Serotonin Reuptake Inhibitor Start: 04-13-2023 take 100 mg by mouth once daily 100 mg, oral, Nightly, First dose on Tue04/13/23 at 2100 Start: 05-19-2021 End: 12-21-2022 take 1 tablet by mouth once daily at bedtime traZODone (Desyrel) 100 mg tablet Indications: Depression, unspecified depression type Take 1 tablet (100 mg) by mouth once daily at bedtime. 90 tablet 3 12/21/2022 Active Start: 05-19-2021 traZODone HCl - 100 MG Oral Tablet Quantity: 90 Refills: 0 Ordered: 16-Aug-2021 DO Start : 19-May-2021 Active Start: 06-10-2020 End: 05-11-2021 take 1 tablet by mouth once daily traZODone (DESYREL) 100 MG tablet Take 1 (one) tablet (100 mg total) by mouth nightly . 90 tablet 1 11/12/2020 05/11/2021 traZODone 100 mg oral tablet Quantity: 0 Refills: 0 Ordered: 01-Sep-2021 Isha Bruce Generic Substitution Allowed vitamin b12 1 mg oral tablet (20 sources) Vitamin B12 Start: 02-21-2023 End: 02-21-2024 take 1000 ug by mouth every other day 1,000 mcg, oral, Every other day, First dose on [place] 04/14/23 at 0900 Start: 11-25-2022 End: 11-25-2023 take 1 tablet by mouth once daily cyanocobalamin (Vitamin B-12) 1,000 mcg tablet Indications: Low vitamin B12 level Take 1 tablet (1,000 mcg) by mouth once daily. 90 tablet 3 11/25/2022 02/21/2023 Discontinued (Reorder) Completed/Discontinued Medications Medication Drug Class(es) Dates Sig (Normalized) Sig (Original) acetaminophen 325 mg / HYDROcodone bitartrate 5 mg oral tablet (17 sources) Opioid Agonist Start: 06-13-2022 End: 04-13-2023 HYDROcodone-acetami nophen ([place]) 5-325 mg tablet Take by mouth every 6 hours if needed. 0 06/13/2022 04/13/2023 Discontinued (Entered in Error) Start: 09-29-2021 End: 10-29-2021 take 1 tablet by mouth every six hours as needed for pain HYDROcodone-Acetaminophen 5-325 MG Oral Tablet TAKE 1 TABLET EVERY 6 HOURS NEEDED FOR PAIN. Quantity: 12 Refills: 0 Ordered: 29-Sep-2021 Shadia Fisher Start : 29-Sep-2021 End : 29-Oct-2021 Complete Comment on above: Caution federal law prohibits the transfer of this drug to any person other than the person for whom it was prescribed.May cause drowsiness. Alcohol may intensify this effect. Use care when operating dangerous machinery.This product contains acetaminophen. Do not use with any other product containing acetaminophen to prevent possible liver damage.Using more of this medication than prescribed may cause serious breathing problems. albuterol 0.83 mg/ml inhalation solution (20 sources) beta2-Adrenergic Agonist Start: 06-10-19 End: 06-10-19 take 2.5 mg by inhalation every six hours as needed albuterol 2.5 mg /3 mL (0.083 %) nebulizer solution 2.5 mg Start: 08-17-2021 take 2 puff(s) by in halation every six hours for wheezing albuterol 90 mcg/actuation inhaler Inhale 2 puffs every 6 hours if needed for wheezing or shortness of breath. 08/17/2021 Active Start: 08-17-2021 Albuterol Sulf ate HFA 108 (90 Base) MCG/ACT Inhalation Aerosol Solution Quantity: 8 Refills: 0 Ordered: 17-Aug-2021 DO Start : 17-Aug-2021 Active Start: 07-07-2021 End: 08-05-2021 take 3 mL by inhalation every six hours as needed albuterol 2.5 mg/3 mL (0.083%) inhalation solution ; 3 milliliter(s) by nebulizer every 6 hours, As Needed -for wheezing - for cough Quantity: 30 Refills: 0 Ordered: 07-Jul-2021 Ericka Felizherine Start: 07-Jul-2021 End: 05-Aug-2021 Generic Substitution Allowed Comments: For inhalation only.It is very important that you take or use this exactly as directed. Do not skip doses or discontinue unless directed by your doctor.Obtain medical advice before taking any non-prescription drugs as some may affect the action of this medication. take 2 puff(s) by in halation every six hours as needed albuterol 90 mcg/inh inhalation aerosol ; 2 puff(s) inhaled every 6 hours, As Needed Quantity: 0 Refills: 0 Ordered: 18-Oct-2022 Valencia Kent Generic Substitution Allowed Comment on above: For inhalation only. It is very important that you take or use this exactly as directed. Do not skip doses or discontinue unless directed by your doctor.Obtain medical advice before taking any non-prescription drugs as some may affect the action of this medication. apixaban 5 mg oral tablet (1 source) Factor Xa Inhibitor Start: 05-30-2023 End: 05-30-2023 apixaban (Eliquis) tablet 10 mg 30 ml bupivacaine hydrochloride 2.5 mg/ml injection (2 sources) Amide Local Anesthetic Start: 06-03-2023 End: 06-03-2023 bupivacaine PF (Marcaine) 0.25 % (2.5 mg/mL) injection 5 mg Start: 06-03-2023 End: 06-03-2023 bupivacaine PF (Marcaine) 0. 25 % (2.5 mg/mL) injection 5 mg calcium chloride 0.0014 meq/ml / potassium chloride 0.004 meq/ml / sodium chloride 0.103 meq/ml / sodium lactate 0.028 meq/ml injectable solution (2 sources) Start: 06-10-2023 End: 06-11-2023 take 75 mL intravenously every hour 75 mL/hr, intravenous, Continuous, Starting on Tue06/10/23 at 1500, For 24 hours, Phase II/On Unit Start: 06-10-2023 End: 06-11-2023 lactated Ringer's infusion ceFAZolin 2000 mg injection (2 sources) Cephalosporin Antibacterial Start: 06-10-2023 End: 06-11-2023 take 2 g intravenously every eight hours 2 g, intravenous, Administer over 30 Minutes, Every 8 hours, First dose on Tue06/10/23 at 1600, For 2 doses, Phase II/On Unit Start 8 hours after pre-op dose given. premix bag Dosing of this medication varies based on severity of illness. Does this patient have sepsis or concern for sepsis (probable or documented infection plus systemic manifestations of infection)? No Suspected Indication (Select all that apply): Surgical Prophylaxis celecoxib 200 mg oral capsule (1 source) Nonsteroidal Anti-inflammatory Drug Start: 06-10-2023 End: 06-10-2023 celecoxib (CeleBREX) capsule 200 mg cephalexin 500 mg oral tablet (6 sources) Cephalosporin Antibacterial Start: 09-01-2021 End: 09-07-2021 take 1 tablet by mouth four times daily cephalexin 500 mg oral tablet ; 1 tab(s) orally 4 times a day Quantity: 28 Refills: 0 Ordered: 01-Sep-2021 Balbir Tavares Start: 01-Sep-2021 End: 07-Sep-2021 Generic Substitution Allowed Comments: Finish all this medication unless otherwise directed by prescriber. Start: 09-01-2021 Cephalexin 500 MG Oral Capsule Quantity: 28 Refills: 0 Ordered: 02-Sep-2021 DO Start : 01-Sep-2021 Active Comment on above: Finish all this medi cation unless otherwise directed by prescriber. ciprofloxacin 250 mg oral tablet (2 sources) Quinolone Antimicrobial Start: 023 End: 023 take 1 tablet by mouth twice daily ciprofloxacin (Cipro) 250 mg tablet Indications: Gastroenteritis Take 1 tablet (250 mg) by mouth 2 times a day for 7 days. 14 tablet 0 03/28/2023 04/04/2023 1 ml dexamethasone phosphate 10 mg/ml injection (2 sources) Corticosteroid Start: End: dexAMETHasone (PF) (Decadron) injection 10 mg Start: 06-03-2023 End: 06-03-2023 dexAMETHasone (PF) (Decadron ) injection 10 mg dextromethorphan hydrobromide 3 mg/ml / promethazine hydrochloride 1.25 mg/ml oral solution (5 sources) Phenothiazine, Uncompetitive G-eouwtc-M-aspartate Receptor Antagonist, Sigma-1 Agonist Start: 01-26-2023 End: 03-28-2023 take 5 mL by mouth four times daily as needed for cough promethazine-DM (Phenergan-DM) 6.25-15 mg/5 mL syrup Indications: Acute non-recurrent maxillary sinusitis Take 5 mL by mouth 4 times a day as needed for cough. 120 mL 0 02/21/2023 03/28/2023 Discontinued (Therapy completed) doxycycline (Vibramycin) in dextrose 5 % in water (D5W) 100 mL IV 100 mg (1 source) Start: 04-04-2023 End: 04-04-2023 doxycycline (Vibramycin) in dextrose 5 % in water (D5W) 100 mL IV 100 mg 2 ml famotidine 10 mg/ml injection (1 source) Histamine-2 Receptor Antagonist Start: 06-10-2023 End: 06-10-2023 famotidine PF (Pepcid) injection 20 mg fluconazole 150 mg oral tablet (3 sources) Azole Antifungal Start: 02-21-2023 End: 03-08-2023 take 1 tablet by mouth once daily fluconazole (Diflucan) 150 mg tablet Indications: Abdominal wall abscess , Diabetes mellitus with stage 3 chronic kidney disease (CMS/HCC) Take 1 tablet (150 mg) by mouth once daily. 2 tablet 1 02/21/2023 03/08/2023 Discontinued (Therapy completed) Start: 07-22-2022 End: 07-25-2022 take 1 tablet by mouth once daily fluconazole (Diflucan) 150 mg tablet Indications: Vulvovaginal candidiasis Take 1 tablet (150 mg) by mouth once daily for 3 days. 3 tablet 0 07/22/2022 07/25/2022 Active 120 actuat fluticasone propionate 0.23 mg/actuat / salmeterol 0.021 mg/actuat metered dose inhaler (20 sources) Corticosteroid, beta2-Adrenergic Agonist Start: 05-19-2021 End: 04-14-2023 take 2 puff(s) by inhalation twice daily fluticasone propion-salmeteroL (Advair HFA) 230-21 mcg/actuation inhaler Inhale 2 puffs 2 times a day. 0 05/19/2021 04/14/2023 Discontinued (Stop Taking at Discharge) Start: 05-19-2021 take 2 puff(s) by in halation every twelve hours Advair HFA 230-21 MCG/ACT Inhalation Aerosol INHALE 2 PUFFS AT 12 HOUR INTERVALS (MORNING AND EVENING). Quantity: 0 Refills: 0 Ordered: 22-Apr-2022 DO Start : 19-May-2021 Active Start: 05-19-2021 take 2 puff(s) by in halation in the morning fluticasone propion-salmeteroL (Advair HFA) 230-21 mcg/actuation inhaler Inhale 2 puffs in the morning and 2 puffs in the evening. 0 05/19/2021 Active Start: 05-19-2021 Advair HFA 230 -21 MCG/ACT Inhalation Aerosol Quantity: 12 Refills: 0 Ordered: 17-Jul-2021 DO Start : 19-May-2021 Active Start: 11-12-2020 End: 05-21-2021 take 1 puff(s) by mouth twice daily fluticasone propion-salmeteroL (Advair HFA) 230-21 mcg/actuation inhaler Inhale 1 (one) puff 2 (two) times a day Rinse mouth after each use . 60 puff 5 11/12/2020 05/21/2021 Active Start: 12-05-2019 take 1 puff(s) by mo [facility] twice daily fluticasone propion-salmeteroL (Advair HFA) 230-21 mcg/actuation inhaler Inhale 1 (one) puff 2 (two) times a day Rinse mouth after each use . 60 puff 5 12/05/2019 Active take 2 puff(s) by in halation twice daily Advair HFA 230 mcg-21 mcg/inh inhalation aerosol ; 2 puff(s) inhaled 2 times a day Quantity: 0 Refills: 0 Ordered: 01-Sep-2021 Kelly Zeng Generic Substitution Allowed Advair Diskus Qu antity: 0 Refills: 0 Ordered: 01-Sep-2021 Isha Bruce Generic Substitution Allowed Haloperidol (1 source) Typical Antipsychotic Start: 06-12-2023 End: 06-12-2023 haloperidol lactate (Haldol) injection 2 mg 2 ml sodium hyaluronate 10 mg/ml prefilled syringe (3 sources) Start: 02-09-2023 End: 02-09-2023 sodium hyaluronate (Euflexxa) injection 20 mg Start: 01-24-2023 End: 01-31-2023 sodium hyaluronate (Euflexxa ) injection 20 mg 0.5 ml HYDROmorphone hydrochloride 1 mg/ml prefilled syringe (1 source) Opioid Agonist Start: 06-10-2023 End: 06-12-2023 take 0.5 mg intravenously every four hours as needed 0.5 mg, intravenous, Every 4 hours PRN, pain breakthrough, Starting on Tue06/10/23 at 1437, Phase II/On Unit ibuprofen 600 mg oral tablet (20 sources) Nonsteroidal Anti-inflammatory Drug Start: 09-10-2021 End: 04-22-2022 Ibuprofen 600 MG Oral Tablet Quantity: 0 Refills: 0 Ordered: 10-Sep-2021 DO Start : 10-Sep-2021 End : 22-Apr-2022 Complete Start: 07-30-2019 take 1 tablet by lennie th every six hours as needed ibuprofen (ADVIL,MOTRIN) 600 MG tablet Take 1 (one) tablet (600 mg total) by mouth every 6 (six) hours as needed for pain . 20 tablet 0 07/30/2019 Active insulin glargine-yfgn 100 unit/mL (3 mL) Pen (5 sources) Start: 12-09-2022 End: 03-08-2023 insulin glargine-yfgn 100 unit/mL (3 mL) Pen Start: 12-09-2022 insulin glargi ne-yfgn 100 unit/mL (3 mL) Pen insulin, regular, human 100 unt/ml injectable solution (1 source) Insulin Start: 10-22-2020 End: 10-22-2020 insulin regular (HumuLIN R, NovoLIN R) injection 10 Units iohexol (OMNIPaque) 300 mg iodine/mL solution 3 mL (2 sources) Start: 06-03-2023 End: 06-03-2023 iohexol (OMNIPaque) 300 mg iodine/mL solution 3 mL iohexol (OMNIPaque) 350 mg iodine/mL solution 58 mL (1 source) Start: 04-13-2023 End: 04-13-2023 iohexol (OMNIPaque) 350 mg iodine/mL solution 58 mL iohexol (OMNIPaque) 350 mg iodine/mL solution 68 mL (1 source) Start: 04-04-2023 End: 04-04-2023 iohexol (OMNIPaque) 350 mg iodine/mL solution 68 mL 1 ml ketorolac tromethamine 30 mg/ml injection (1 source) Nonsteroidal Anti-inflammatory Drug, Cyclooxygenase Inhibitor Start: 05-30-2023 End: 05-30-2023 ketorolac (Toradol) injection 15 mg 10 ml lidocaine hydrochloride 10 mg/ml injection (2 sources) Antiarrhythmic, Amide Local Anesthetic Start: 06-03-2023 End: 06-03-2023 lidocaine PF (Xylocaine) 10 mg/mL (1 %) injection 100 mg Start: 06-03-2023 End: 06-03-2023 lidocaine PF (Xylocaine) 10 mg/mL (1 %) injection 100 mg Magnesium (20 sources) Start: 09-10-2021 take 1 tablet by lennie th once daily Magnesium 400 MG Oral Tablet Take one daily Quantity: 0 Refills: 0 Ordered: 22-Apr-2022 DO Start : 10-Sep-2021 Active Start: 09-10-2021 Magnesium 400 MG Oral Tablet Quantity: 0 Refills: 0 Ordered: 10-Sep-2021 DO Start : 10-Sep-2021 Active 50 ml magnesium sulfate 40 m g/ml injection (3 sources) Start: 04-13-2023 End: 04-13-2023 magnesium sulfate IV 2 g Start: 04-04-2023 End: 04-04-2023 magnesium sulfate IV 4 g methylPREDNISolone 4 MG Oral Tablet Therapy Pack (2 sources) Start: 09-10-2021 take 2 tablets by mouth once daily methylPREDNISolone 4 MG Oral Tablet Therapy Pack Take daily as directed until prescription complete. Quantity: 1 Refills: 0 Ordered: 10-Sep-2021 Shadia Fisher Start : 10-Sep-2021 Active 5 ml midazolam 1 mg/ml injection (1 source) Benzodiazepine Start: 06-10-2023 End: 06-10-2023 midazolam (Versed) injection 2 mg 1 ml morphine sulfate 4 mg/ml prefilled syringe (2 sources) Opioid Agonist Start: 04-04-2023 End: 04-04-2023 morphine injection 4 mg Start: 10-22-2020 End: 10-22-2020 morphine injection 2 mg 2 ml ondansetron 2 mg/ml injection (20 sources) Serotonin-3 Receptor Antagonist Start: 06-10-2023 End: 06-10-2023 ondansetron (Zofran) injection 4 mg Start: 04-04-2023 End: 04-04-2023 ondansetron (Zofran) injecti on 4 mg Start: 10-22-2020 End: 10-22-2020 ondansetron (ZOFRAN) injecti on 4 mg Start: 07-30-2019 take 1 tablet by lennie every eight hours as needed ondansetron (Zofran ODT) 4 MG disintegrating tablet Dissolve 1 (one) tablet (4 mg total) on top of tongue every 8 (eight) hours as needed for nausea . 10 tablet 0 07/30/2019 Active take 1 tablet by lennie every four hours as needed ondansetron ODT (Zofran-ODT) 4 mg disintegrating tablet Take 1 tablet (4 mg) by mouth every 4 hours if needed for nausea or vomiting. Active Zofran ODT 4 MG TBDP Quantity: 0 Refills: 0 Ordered: 10-Sep-2021 DO Active take 1 tablet by lennie th every eight hours ondansetron 4 mg oral tablet ; 1 tab(s) orally every 8 hours Quantity: 0 Refills: 0 Ordered: 01-Sep-2021 Isha Bruce Generic Substitution Allowed Ozempic (1 MG/DOSE) 4 MG/3ML Subcutaneous Solution Pen-injector (20 sources) Start: 11-12-2020 inject 1 mg by subcutaneous injection twice daily Ozempic (1 MG/DOSE) 4 MG/3ML Subcutaneous Solution Pen-injector 61U BID Quantity: 0 Refills: 0 Ordered: 22-Apr-2022 DO Start : 4-Aug-2021 Active Start: 11-12-2020 Ozempic (1 MG/ DOSE) 4 MG/3ML Subcutaneous Solution Pen- injector Quantity: 9 Refills: 0 Ordered: 03-Aug-2021 DO Start : 12-Nov-2020 Active perflutren lipid microspheres (Definity) injection 0.5-10 mL of dilution (1 source) Start: 04-13-2023 End: 04-13-2023 perflutren lipid microspheres (Definity) injection 0.5-10 mL of dilution povidone-iodine 50 mg/ml topical solution (1 source) Antiseptic Start: 06-10-2023 End: 06-10-2023 povidone-iodine 5 % kit kit semaglutide (Ozempic) 1 mg/dose (4 mg/3 mL) pen injector (9 sources) Start: 11-12-2020 End: 02-21-2023 inject 61 [IU] by subcutaneous injection twice daily semaglutide (Ozempic) 1 mg/dose (4 mg/3 mL) pen injector Inject under the skin. 61 units BID 0 11/12/2020 02/21/2023 Discontinued (Therapy completed) Start: 11-12-2020 inject 61 [IU] by keenan bcutaneous injection twice daily semaglutide (Ozempic) 1 mg/dose (4 mg/3 mL) pen injector Inject under the skin. 61 units BID 0 11/12/2020 Active 1000 ml sodium chloride 9 mg /ml injection (7 sources) Start: 06-10-2023 End: 06-11-2023 sodium chloride 0.9% infusio n Start: 06-03-2023 End: 06-03-2023 sodium chloride (PF) 0.9% solution Start: 04-13-2023 sodium chlorid e 0.9% infusion Start: 04-13-2023 End: 04-13-2023 sodium chloride 0.9 % bolus 1,000 mL Start: 04-04-2023 End: 04-04-2023 take 100 mL intravenously every hour 100 mL/hr, intrav enous, Continuous, Starting on 04/04/23 at 1500 sodium polystyrene sulfonate 250 mg/ml oral suspension (1 source) Start: 06-11-2023 End: 06-11-2023 sodium polystyrene (Kayexalate) suspension 30 g sodium zirconium cyclosilicate 36753 mg powder for oral suspension (1 source) Start: 06-11-2023 End: 06-11-2023 sodium zirconium cyclosilicate (Lokelma) packet 5 g sulfamethoxazole 800 mg / trimethoprim 160 mg oral tablet (8 sources) Dihydrofolate Reductase Inhibitor Antibacterial, Sulfonamide Antimicrobial Start: 02-21-2023 End: 03-08-2023 take 1 tablet by mouth twice daily sulfamethoxazole-t rimethoprim (Bactrim DS) 800-160 mg tablet Indications: Abdominal wall abscess Take 1 tablet by mouth 2 times a day for 10 days. 20 tablet 0 02/21/2023 03/08/2023 Discontinued (Therapy completed) Start: 09-10-2021 take 2 tablets by mouth once B actrim DS 800-160 MG Oral Tablet Quantity: 0 Refills: 0 Ordered: 10-Sep-2021 DO Start : 10-Sep-2021 Active Start: 09-01-2021 End: 09-07-2021 take 1 tablet by mouth every twelve hours Bactrim DS 800 mg-160 mg oral tablet ; 1 tab(s) orally every 12 hours Quantity: 14 Refills: 0 Ordered: 01-Sep-2021 Balbir Tavares Start: 01-Sep-2021 End: 07-Sep-2021 Generic Substitution Allowed Comments: Avoid prolonged or excessive exposure to direct and/or artificial sunlight while taking this medication.Finish all this medication unless otherwise directed by prescriber.Medication should be taken with plenty of water. Comment on above: Avoid prolonged or e xcessive exposure to direct and/or artificial sunlight while taking this medication.Finish all this medication unless otherwise directed by prescriber.Medication should be taken with plenty of water. tranexamic acid 650 mg oral tablet (3 sources) Antifibrinolytic Agent Start: 06-11-2023 End: 06-11-2023 1,950 mg, oral, Once, On 06/11/23 at 0600, For 1 dose, Phase II/On Unit Second dose administered post-op day 1 at 0600. Do not crush, chew, or split. Tranexamic Acid Indication: Surgical Prophylaxis: Orthopedic Start: 06-10-2023 End: 06-10-2023 take 1 dose by mouth every six hours 1,950 mg, oral, Once, On Tue06/10/23 at 1500, For 1 dose, Recovery & On Unit First dose administered 6 hours post procedure. Do not crush, chew, or split. Tranexamic Acid Indication: Surgical Prophylaxis: Orthopedic 1 ml triamcinolone acetonide 40 mg/ml injection (3 sources) Corticosteroid Start: 11-26-2022 inject 1 mL by intramuscular injection once Triamcinolone Acetonide 40 MG/ML Injection Suspension INJECT 1 ML INTRAMUSCULARLY ONCE. Quantity: 0 Refills: 0 Ordered: 26-Nov-2022 Shadia Fisher Start : 26-Nov-2022 Complete Start: 04-28-2022 Triamcinolone Acetonide 40 MG/ML Injection Suspension INJECT 1 ML Intra-articular Quantity: 0 Refills: 0 Ordered: 28-Apr-2022 Shadia Fisher Start : 28-Apr-2022 Complete Start: 09-17-2021 Triamcinolone Acetonide 40 MG/ML Injection Suspension INJECT 1 ML Intra-articular Quantity: 0 Refills: 0 Ordered: 17-Sep-2021 Shadia Fisher Start : 17-Sep-2021 Complete vancomycin 1,500 mg in dextr ose 5 % in water (D5W) 500 mL IV (1 source) Start: 06-10-2023 End: 06-10-2023 vancomycin 1,500 mg in dextr ose 5 % in water (D5W) 500 mL IV Problems Active Problems Problem Classification Problem Date Documented Da te Episodic/Chronic Anxiety disorders (20 sources) Anxiety; Translations: [Anxiety disorder, unspecified] Onset: 8 04-15-2017 Chronic Asthma (10 sources) Asthma; Translations: [Unspecified asthma, uncomplicated] Onset: 4 06-12-2023 Chronic Chronic kidney disease (9 sources) Chronic kidney disease; Translations: [Chronic kidney disease, stage 3 unspecified] Onset: 3 Chronic obstructive pulmonary disease and bronchiectasis (20 sources) Chronic obstructive lung disease; Translations: [Chronic obstructive pulmonary disease, unspecified] Onset: 8 04-15-2017 Chronic Chronic ulcer of skin (1 source) Disorder of abdominal wall; Translations: [Chronic ulcer of other specified sites] 09-01-2021 Chronic Diabetes mellitus with complications (20 sources) Type II diabetes mellitus uncontrolled; Translations: [Type 2 diabetes mellitus with hyperglycemia] Onset: 8 09-08-2020 Chronic Diabetes mellitus without complication (7 sources) Hyperglycemia; Translations: [Hyperglycemia, unspecified] Onset: 4 Episodic Disorders of lipid metabolism (5 sources) Hypercholesterolemia; Translations: [Pure hypercholesterolemia, unspecified] Onset: 3 09-08-2020 Chronic E Codes: Fall (3 sources) Fall 04-01-2022 Comment on above: FALL Esophageal disorders (20 sources) Gastroesophageal reflux disease without esophagitis; Translations: [Gastro-esophageal reflux disease without esophagitis] Onset: 3 10-18-2022 Chronic Essential hypertension (9 sources) Essential hypertension; Translations: [Essential (primary) hypertension] Onset: 8 09-08-2020 Chronic Genitourinary symptoms and ill-defined conditions (20 sources) Blood in urine; Translations: [Hematuria, unspecified] Onset: 3 06-13-2022 Episodic Headache; including migraine (2 sources) Headache; including migraine; Translations: [Headache, unspecified] Onset: 4 Hypertension with complications and secondary hypertension (4 sources) Hypertension secondary to endocrine disorders; Translations: [Hypertension secondary to endocrine disorders] Onset: 4 Chronic Mood disorders (20 sources) Depressive disorder; Translations: [Depressive disorder, not elsewhere classified] Onset: 3 07-08-2022 Chronic Nausea and vomiting (4 sources) Nausea; Translations: [Nausea with vomiting, unspecified] Onset: 3 Episodic Nutritional deficiencies (20 sources) Vitamin D deficiency; Translations: [Vitamin D deficiency, unspecified] Onset: 3 11-25-2022 Chronic Open wounds of extremities (2 sources) Laceration without foreign body of left elbow, initial encounter; Translations: [Laceration without foreign body of left elbow, initial encounter] Onset: 4 Episodic Osteoarthritis (20 sources) Osteoarthritis of left knee joint; Translations: [Osteoarthrosis, localized, primary, lower leg] Onset: 3 02-07-2023 Chronic Other aftercare (20 sources) Patient encounter status; Translations: [Long-term (current) use of other medications] 07-22-2022 Episodic Other aftercare (1 source) Long-term current use of insulin; Translations: [residential (current) use of insulin] 09-23-2022 Episodic Other connective tissue disease (19 sources) History of total knee arthroplasty; Translations: [Presence of left artificial knee joint] Onset: 4 06-12-2023 Chronic Other connective tissue disease (4 sources) Presence of left artificial knee joint; Translations: [Presence of left artificial knee joint] Onset: 4 Chronic Other connective tissue disease (20 sources) Pain in left lower limb; Translations: [Pain in limb] Onset: 3 05-16-2022 Episodic Other connective tissue disease (1 source) Pain in lower limb; Translations: [Pain in leg, unspecified] 09-23-2022 Episodic Other connective tissue disease (2 sources) Swelling of left lower limb; Translations: [Other specified soft tissue disorders] 05-31-2023 Episodic Other connective tissue disease (2 sources) Pain in right leg; Translations: [Pain in right leg] Onset: 4 Episodic Other diseases of kidney and ureters (13 sources) Cyst of kidney; Translations: [Cystic kidney disease, unspecified] Episodic Other endocrine disorders (1 source) Adrenal mass; Translations: [Other specified disorders of adrenal glands] 06-13-2022 Chronic Other endocrine disorders (1 source) Other specified disorders of adrenal gland; Translations: [Other specified disorders of adrenal gland] Onset: 3 Chronic Other gastrointestinal disorders (1 source) Abdominal distension (gaseous); Translations: [Abdominal distension (gaseous)] Onset: 3 Episodic Other hereditary and degenerative nervous system conditions (20 sources) Impaired cognition; Translations: [Mild cognitive impairment, so stated] Onset: 0 07-24-2019 Chronic Other injuries and conditions due to external causes (2 sources) Closed injury of head; Translations: [Head injury, unspecified] 04-01-2022 Episodic Other injuries and conditions due to external causes (3 sources) Unspecified injury of head, initial encounter; Translations: [Unspecified injury of head, initial encounter] Onset: 2 Episodic Other liver diseases (20 sources) Cirrhosis of liver; Translations: [Unspecified cirrhosis of liver] Onset: 0 09-08-2020 Chronic Comment on above: she thinks sh has fa tty liver; Other liver diseases (3 sources) Unspecified cirrhosis of liver; Translations: [Unspecified cirrhosis of liver] Onset: 3 Chronic Other lower respiratory disease (1 source) Cough; Translations: [Acute cough] 01-19-2023 Episodic Other nervous system disorders (6 sources) Other chronic pain; Translations: [Other chronic pain] Onset: 3 Chronic Other nervous system disorders (1 source) Chronic pain syndrome; Translations: [Chronic pain syndrome] Onset: 3 Chronic Other nutritional; endocrine; and metabolic disorders (20 sources) Severe obesity; Translations: [Morbid obesity] Onset: 3 Resolved: 4 07-16-2022 Chronic Other nutritional; endocrine; and metabolic disorders (5 sources) Obesity; Translations: [Morbid (severe) obesity due to excess calories] Onset: 3 07-16-2022 Chronic Other nutritional; endocrine; and metabolic disorders (20 sources) Hypomagnesemia; Translations: [Hypomagnesemia] Onset: 3 07-22-2022 Chronic Other nutritional; endocrine; and metabolic disorders (3 sources) Morbid (severe) obesity due to excess calories; Translations: [Morbid (severe) obesity due to excess calories] Onset: 3 Chronic Other nutritional; endocrine; and metabolic disorders (3 sources) Body mass index (BMI) 40.0-44.9, adult; Translations: [Body mass index [BMI] 40.0-44.9, adult] Onset: 3 Chronic Other nutritional; endocrine; and metabolic disorders (1 source) Obesity caused by energy imbalance; Translations: [Morbid (severe) obesity due to excess calories] 09-23-2022 Chronic Other nutritional; endocrine; and metabolic disorders (1 source) Body mass index 40+ - severely obese; Translations: [Body mass index (BMI) 40.0-44.9, adult] 09-23-2022 Chronic Other nutritional; endocrine; and metabolic disorders (2 sources) Hypomagnesemia; Translations: [Hypomagnesemia] Onset: 3 Chronic Pneumonia (except that caused by tuberculosis or sexually transmitted disease) (2 sources) Pneumonia, unspecified organism; Translations: [Pneumonia, unspecified organism] Onset: 4 Episodic Residual codes; unclassified (1 source) Acquired absence of other specified parts of digestive tract; Translations: [Acquired absence of other specified parts of digestive tract] Onset: 3 Episodic Residual codes; unclassified (1 source) Tobacco use and exposure - finding; Translations: [Tobacco use] 09-23-2022 Episodic Residual codes; unclassified (1 source) Pain; Translations: [Pain, unspecified] 12-08-2022 Episodic Respiratory failure; insufficiency; arrest (adult) (2 sources) Acute respiratory failure with hypoxia; Translations: [Acute respiratory failure with hypoxia (Multi)] Onset: 4 Episodic Spondylosis; intervertebral disc disorders; other back problems (20 sources) Degeneration of lumbosacral intervertebral disc; Translations: [Other intervertebral disc degeneration, lumbar region] Onset: 8 06-09-2017 Chronic Substance-related disorders (1 source) Nicotine dependence, unspecified, uncomplicated; Translations: [Nicotine dependence, unspecified, uncomplicated] Onset: 3 Chronic Thyroid disorders (20 sources) Acquired hypothyroidism; Translations: [Hypothyroidism, unspecified] Onset: 3 07-22-2022 Chronic Unclassified (2 sources) COUGH, BODY ACHES 07-07-2021 Comment on above: COUGH, BODY ACHES Unclassified (1 source) Ulcer of abdomen wall 09-01-2021 Unclassified (2 sources) RIGHT KNEE 09-03-2021 Comment on above: RIGHT KNEE Unclassified (2 sources) BLOOD SUGAR 09-22-2021 Comment on above: BLOOD SUGAR Unclassified (1 source) 6 WEEK FUV L KNEE PAIN 09-17-2021 Comment on above: 6 WEEK FUV L KNEE PA IN Unclassified (1 source) NEW PATIENT 03-08-2022 Comment on above: NEW PATIENT Unclassified (1 source) Abrasion of left elbow 04-01-2022 Unclassified (1 source) Contusion of left knee 04-01-2022 Unclassified (1 source) Contusion of left hip 04-01-2022 Unclassified (2 sources) LEFT LEG PAIN WITH BACK PAIN 06-12-2022 Comment on above: LEFT LEG PAIN WITH B ACK PAIN Unclassified (1 source) 6-8 WEEK FUV L KNEE PAIN 04-28-2022 Comment on above: 6-8 WEEK FUV L KNEE PAIN Unclassified (1 source) Abdominal pain of unknown etiology 06-13-2022 Unclassified (1 source) Adrenal nodule 06-13-2022 Unclassified (1 source) Lymphadenopathy, abdominal 06-13-2022 Unclassified (3 sources) Low back pain, unspecified; Translations: [Low back pain, unspecified] Onset: 3 Unclassified (1 source) Lng trm (crnt) use injectable non-insulin antidiabetic drugs; Translations: [Lng trm (crnt) use injectable non-insulin antidiabetic drugs] Onset: 3 Unclassified (1 source) Acute candidiasis of vulva and vagina; Translations: [Acute candidiasis of vulva and vagina] Onset: 3 Unclassified (2 sources) Error (VOID this visit); Translations: [Error (VOID this visit)] Onset: 3 Unclassified (1 source) Acute cough; Translations: [Acute cough] Onset: 3 Urinary tract infections (2 sources) Urinary tract infection, site not specified; Translations: [Urinary tract infection, site not specified] Onset: 4 Episodic Past or Other Problems Problem Classification Problem Date Documented Da te Episodic/Chronic Abdominal pain (20 sources) Left flank pain; Translations: [Unspecified abdominal pain] Onset: 07-30-2019 Episodic Comment on above: ABD PAIN Acute bronchitis (3 sources) Acute bronchitis; Translations: [Acute bronchitis, unspecified] Onset: 04-04-2023 04-04-2023 Episodic Biliary tract disease (20 sources) Chronic cholecystitis with calculus; Translations: [Calculus of gallbladder with chronic cholecystitis without obstruction] Onset: 07-22-2022 07-22-2022 Episodic Cardiac dysrhythmias (20 sources) Tachycardia; Translations: [Tachycardia, unspecified] Onset: 04-13-2023 Resolved: 04-14-2023 04-04-2023 Episodic Conditions associated with dizziness or vertigo (3 sources) Postural dizziness; Translations: [Dizziness and giddiness] Onset: 04-13-2023 04-13-2023 Episodic Diabetes mellitus without complication (20 sources) Diabetes mellitus; Translations: [Diabetes mellitus without mention of complication, type II or unspecified type, not stated as uncontrolled] Onset: 05-16-2022 Resolved: 07-08-2022 07-08-2022 Chronic E Codes: Fall (20 sources) Fall; Translations: [Unspecified fall] Onset: 04-01-2022 Resolved: 02-21-2023 04-01-2022 Episodic E Codes: Struck by; against (1 source) Striking against or struck by other objects, initial encounter; Translations: [Striking against or struck by other objects, init encntr] Onset: 04-01-2022 Episodic Headache; including migraine (4 sources) Headache; Translations: [Headache] Onset: 02-15-2019 02-15-2019 Episodic Immunizations and screening for infectious disease (20 sources) Raised antinuclear antibody; Translations: [Other specified abnormal immunological findings in serum] Onset: 03-21-2019 03-21-2019 Episodic Lymphadenitis (4 sources) Disorder of intra-abdominal lymph nodes; Translations: [Enlargement of lymph nodes] Onset: 06-13-2022 06-13-2022 Episodic Mood disorders (20 sources) Mood disorders; Translations: [Depression, unspecified] Onset: 07-08-2022 Resolved: 07-22-2022 07-08-2022 Mycoses (20 sources) Candidiasis of mouth; Translations: [Candidal stomatitis] Onset: 03-10-2020 03-10-2020 Episodic Noninfectious gastroenteritis (3 sources) Gastroenteritis; Translations: [Noninfective gastroenteritis and colitis, unspecified] Onset: 03-28-2023 03-28-2023 Episodic Nonspecific chest pain (7 sources) Chest pain; Translations: [Chest pain, unspecified] Onset: 04-13-2023 09-01-2021 Episodic Comment on above: CHEST PAIN Open wounds of head; neck; and trunk (1 source) Open wound of anterior abdominal wall ; Translations: [Open wound of abdominal wall, anterior, without mention of complication] Resolved: 09-01-2021 09-01-2021 Episodic Other aftercare (3 sources) residential (current) use of insulin; Translations: [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] Onset: 09-17-2022 Episodic Other aftercare (1 source) Other parts counterman (current) drug therapy; Translations: [Other halfway (current) drug therapy] Onset: 07-03-2022 Episodic Other and unspecified benign neoplasm (20 sources) Adenoma of right adrenal gland; Translations: [Benign neoplasm of right adrenal gland] Onset: 05-25-2023 05-25-2023 Episodic Other and unspecified benign neoplasm (2 sources) Benign neoplasm of right adrenal gland; Translations: [Benign neoplasm of right adrenal gland] Onset: 05-25-2023 Episodic Other connective tissue disease (4 sources) Trochanteric bursitis of left hip; Translations: [Trochanteric bursitis, left hip] Onset: 04-15-2017 04-15-2017 Episodic Other connective tissue disease (4 sources) Pain in bilateral legs; Translations: [Pain in right leg] Onset: 12-14-2018 12-14-2018 Episodic Other connective tissue disease (20 sources) Muscle pain; Translations: [Myalgia and myositis, unspecified] Onset: 05-16-2022 05-16-2022 Episodic Other connective tissue disease (1 source) Pain in leg, unspecified; Translations: [Pain in leg, unspecified] Onset: 09-17-2022 Episodic Other connective tissue disease (4 sources) Myalgia, unspecified site; Translations: [Myalgia, unspecified site] Onset: 01-25-2022 Episodic Other connective tissue disease (20 sources) Swelling of lower limb; Translations: [Other specified soft tissue disorders] Onset: 04-19-2023 04-13-2023 Episodic Other connective tissue disease (20 sources) Pain of left lower leg; Translations: [Pain in left lower leg] Onset: 05-16-2022 04-13-2023 Episodic Other connective tissue disease (4 sources) Other specified soft tissue disorders; Translations: [Other specified soft tissue disorders] Onset: 04-12-2023 Episodic Other connective tissue disease (2 sources) Pain in left lower leg; Translations: [Pain in left lower leg] Onset: 04-13-2023 Episodic Other connective tissue disease (4 sources) Pain in left leg; Translations: [Pain in left leg] Onset: 05-16-2022 Episodic Other diseases of kidney and ureters (20 sources) Renal impairment; Translations: [Unspecified disorder of kidney and ureter] Onset: 05-16-2022 05-16-2022 Episodic Other gastrointestinal disorders (20 sources) Chronic constipation; Translations: [Other constipation] Onset: 07-08-2022 07-08-2022 Episodic Other gastrointestinal disorders (20 sources) Abdominal guarding; Translations: [Other specified symptoms and signs involving the digestive system and abdomen] Onset: 10-18-2022 10-18-2022 Episodic Other gastrointestinal disorders (1 source) Splenomegaly, not elsewhere classified; Translations: [Splenomegaly, not elsewhere classified] Onset: 07-20-2022 Episodic Other gastrointestinal disorders (1 source) Constipation, unspecified; Translations: [Constipation, unspecified] Onset: 07-03-2022 Episodic Other liver diseases (1 source) Hepatomegaly, not elsewhere classified; Translations: [Hepatomegaly, not elsewhere classified] Onset: 09-03-2022 Episodic Other non-traumatic joint disorders (10 sources) Knee pain; Translations: [Pain in joint, lower leg] Onset: 05-16-2022 09-01-2021 Episodic Comment on above: LEFT KNEE PAIN Other non-traumatic joint disorders (20 sources) Pain in left knee; Translations: [Acute pain of left knee] Onset: 04-01-2022 05-16-2022 Episodic Other non-traumatic joint disorders (1 source) Pain in left elbow; Translations: [Pain in left elbow] Onset: 04-01-2022 Episodic Other non-traumatic joint disorders (1 source) Pain in left hip; Translations: [Pain in left hip] Onset: 04-01-2022 Episodic Other screening for suspected conditions (not mental disorders or infectious disease) (20 sources) Blood chemistry abnormal; Translations: [Other specified abnormal findings of blood chemistry] Onset: 04-15-2017 04-15-2017 Episodic Other upper respiratory infections (20 sources) Acute frontal sinusitis; Translations: [Acute frontal sinusitis, unspecified] Onset: 01-19-2023 Resolved: 04-18-2023 01-19-2023 Episodic Pleurisy; pneumothorax; pulmonary collapse (1 source) Pleurisy; Translations: [Pleurisy without mention of effusion or current tuberculosis] Resolved: 09-01-2021 09-01-2021 Episodic Residual codes; unclassified (4 sources) Confusional state; Translations: [Disorientation, unspecified] Onset: 03-14-2019 03-14-2019 Episodic Residual codes; unclassified (20 sources) Past history of procedure; Translations: [Other postprocedural status] Onset: 04-11-2021 Episodic Comment on above: 02/2022- NORMAL. CAL[facility] AT [address] [place] [address]; [id number] [facility]; Residual codes; unclassified (18 sources) Influenza vaccination declined; Translations: [Vaccination not carried out because of patient refusal] Onset: 04-22-2022 Episodic Residual codes; unclassified (20 sources) Postmenopausal state; Translations: [Asymptomatic menopausal state] Onset: 07-16-2022 07-16-2022 Episodic Residual codes; unclassified (1 source) Tobacco use; Translations: [Tobacco use] Onset: 09-17-2022 Episodic Residual codes; unclassified (4 sources) Asymptomatic menopausal state; Translations: [Asymptomatic menopausal state] Onset: 07-16-2022 Episodic Residual codes; unclassified (3 sources) Localized edema; Translations: [Localized edema] Onset: 05-31-2023 05-31-2023 Episodic Residual codes; unclassified (1 source) Localized edema; Translations: [Localized edema] Onset: 05-31-2023 Episodic Skin and subcutaneous tissue infections (12 sources) Abscess of axilla; Translations: [Cutaneous abscess of right axilla] Onset: 06-29-2017 06-29-2017 Episodic Spondylosis; intervertebral disc disorders; other back problems (20 sources) Acute low back pain; Translations: [Low back pain] Onset: 11-07-2020 Episodic Superficial injury; contusion (9 sources) Abrasion or friction burn of elbow, forearm, and wrist, without mention of infection; Translations: [Contusion of knee] Onset: 04-01-2022 04-01-2022 Episodic Syncope (2 sources) Syncope and collapse; Translations: [Syncope and collapse] Onset: 04-13-2023 Episodic Unclassified (20 sources) Onset: 07-08-2022 Resolved: 03-28-2023 07-08-2022 Unclassified (1 source) COLUMBA PAIN/ NAUSEOUS 10-18-2022 Comment on above: COLUMBA PAIN/ NAUSEOUS Unclassified (1 source) Acute candidiasis of vulva and vagina; Translations: [Acute candidiasis of vulva and vagina] Onset: 08-20-2022 Unclassified (1 source) Low back pain, unspecified; Translations: [Low back pain, unspecified] Onset: 07-06-2023 Unclassified (1 source) Acute cough; Translations: [Acute cough] Onset: 01-19-2023 Viral infection (4 sources) Herpes zoster; Translations: [Zoster without complications] Onset: 07-18-2017 07-20-2017 Episodic Results Test Name Value Interpretation Reference Range Facility Basic metabolic 2000 panelon 12-27-2023 Anion gap [Moles/Vol] 12 mmol/L Normal 10-20 [facility] Comment on above: Performed By: #### 8 9577-1 #### JIMBO ANTHONY ([id number]) [facility] ([facility]) [address] [place] [address] 52205 Calcium [Mass/Vol] 8.7 mg/dL Normal 8.6-10.3 [facility] Comment on above: Performed By: #### 8 9577-1 #### JIMBO ANTHONY ([id number]) [facility] ([facility]) [address] [place] [address] 25711 Chloride [Moles/Vol] 100 mmol/L Normal 98-107 [facility] Comment on above: Performed By: #### 8 9577-1 #### JIMBO ANTHONY ([id number]) [facility] ([facility]) [address] [place] [address] 58094 CO2 [Moles/Vol] 25 mmol/L Normal 21-32 [facility] Comment on above: Performed By: #### 8 9577-1 #### JIMBO ANTHONY ([id number]) [facility] ([facility]) [address] [place] [address] 03999 Creatinine [Mass/Vol] 1.88 mg/dL High 0.50-1.05 [facility] Comment on above: Performed By: #### 8 9577-1 #### JIMBO ANTHONY ([id number]) [facility] ([facility]) [facility] [place] [address] Glomerular filtration rate/1.73 sq M.predicted 29 mL/min/1.73m*2 Low >60 [facility] Comment on above: Result Comment: Calc ulations of estimated GFR are performed using the 2020 CKD-EPI Study Refit equation without the race variable for the IDMS-Traceable creatinine methods. https://jasn.asnjournals.org/content/early//ASN.52669 10326 Performed By: #### 8 9577-1 #### JIMBO ANTHONY ([id number]) [facility] ([facility]) [address] [place] [address] 67657 Glucose [Mass/Vol] 245 mg/dL High 74-99 [facility] Comment on above: Performed By: #### 8 9577-1 #### JIMBO ANTHONY ([id number]) [facility] ([facility]) [address] [place] [address] 89024 Potassium [Moles/Vol] 5.4 mmol/L High 3.5-5.3 [facility] Comment on above: Performed By: #### 8 9577-1 #### JIMBO ANTHONY ([id number]) [facility] ([facility]) [address] [place] [address] 34024 Sodium [Moles/Vol] 132 mmol/L Low 136-145 [facility] Comment on above: Performed By: #### 8 9577-1 #### JIMBO ANTHONY ([id number]) [facility] ([facility]) [address] [place] [address] 52776 Urea nitrogen [Mass/Vol] 35 mg/dL High 6-23 [facility] Comment on above: Performed By: #### 8 9577-1 #### JIMBO ANTHONY ([id number]) [facility] ([facility]) [address] [place] [address] 70888 CBC panel Auto (Bld)on 12-26 Erythrocyte distribution width (RBC) [Ratio] 14.2 % Normal 11.5-14.5 [facility] Comment on above: Performed By: #### 8 9577-1 #### JIMBO ANTHONY ([id number]) [facility] ([facility]) [address] [place] [address] 86524 Hematocrit (Bld) [Volume fraction] 36.4 % Normal 36.0-46.0 [facility] Comment on above: Performed By: #### 8 9577-1 #### JIMBO ANTHONY ([id number]) [facility] ([facility]) [address] [place], [place] [id number] Hemoglobin (Bld) [Mass/Vol] 11.6 g/dL Low 12.0-16.0 [facility] Comment on above: Performed By: #### 8 9577-1 #### JIMBO ANTHONY ([id number]) [facility] ([facility]) [address] [place] [address] 63273 MCH (RBC) [Entitic mass] 28.6 pg Normal 26.0-34.0 [facility] Comment on above: Performed By: #### 8 9577-1 #### JIMBO ANTHONY ([id number]) [facility] ([facility]) [address] [place] [address] 81301 MCHC (RBC) [Mass/Vol] 31.9 g/dL Low 32.0-36.0 [facility] Comment on above: Performed By: #### 8 9577-1 #### JIMBO ANTHONY ([id number]) [facility] ([facility]) [address] [place] [address] 80715 MCV (RBC) [Entitic vol] 90 fL Normal 80-100 [facility] Comment on above: Performed By: #### 8 9577-1 #### JIMBO ANTHONY ([id number]) [facility] ([facility]) [address] [place] [address] 46229 Nucleated RBC/100 WBC (Bld) [Ratio] 0.0 /100 WBCs Normal 0.0-0.0 [facility] Comment on above: Performed By: #### 8 9577-1 #### JIMBO ANTHONY ([id number]) [facility] ([facility]) [address] [place] [address] 82154 Platelets (Bld) [#/Vol] 114 x10*3/uL Low 150-450 [facility] Comment on above: Performed By: #### 8 9577-1 #### JIMBO ANTHONY ([id number]) [facility] ([facility]) [address] [place] [address] 05249 RBC (Bld) [#/Vol] 4.05 x10*6/uL Normal 4.00-5.20 [facility] Comment on above: Performed By: #### 8 9577-1 #### JIMBO ANTHONY ([id number]) [facility] ([facility]) [address] [place], [place] [id number] WBC (Bld) [#/Vol] 9.9 x10*3/uL Normal 4.4-11.3 [facility] Comment on above: Performed By: #### 8 9577-1 #### JIMBO ANTHONY ([id number]) [facility] ([facility]) [address] [place] [address] Glucose Test strip manual (B ld) [Mass/Vol]on 12-27-2023 Glucose [Mass/Vol] 180 mg/dL [address] Comment on above: Performed By: #### 8 9577-1 #### JIMBO ANTHONY ([id number]) [facility] ([facility]) [address] [place] [address] 47551 Glucose [Mass/Vol] 227 mg/dL [address] Comment on above: Performed By: #### 8 9577-1 #### JIMBO ANTHONY ([id number]) [facility] ([facility]) [address] [place] [address] 93201 Glucose [Mass/Vol] 350 mg/dL [address] Comment on above: Performed By: #### 8 9577-1 #### JIMBO ANTHONY ([id number]) [facility] ([facility]) [address] [place] [address] CBC W Auto Differential pane l (Bld)on 12-26-2023 Basophils (Bld) [#/Vol] 0.01 x10*3/uL Normal 0.00-0.10 [facility] Comment on above: Performed By: #### 8 9577-1 #### JIMBO ANTHONY ([id number]) [facility] ([facility]) [address] [place] [address] 06778 Basophils/100 WBC (Bld) 0.2 % Normal 0.0-2.0 [facility] Comment on above: Performed By: #### 8 9577-1 #### JIMBO ANTHONY ([id number]) [facility] ([facility]) [address] [place] [address] 08180 Eosinophils (Bld) [#/Vol] 0.00 x10*3/uL Normal 0.00-0.70 [facility] Comment on above: Performed By: #### 8 9577-1 #### JIMBO ANTHONY ([id number]) [facility] ([facility]) [address] [place] [address] 91948 Eosinophils/100 WBC (Bld) 0.0 % Normal 0.0-6.0 [facility] Comment on above: Performed By: #### 8 9577-1 #### JIMBO ANTHONY ([id number]) [facility] ([facility]) [address] [place] [address] 76895 Erythrocyte distribution width (RBC) [Ratio] 13.8 % Normal 11.5-14.5 [facility] Comment on above: Performed By: #### 8 9577-1 #### JIMBO ANTHONY ([id number]) [facility] ([facility]) [address] [place] [address] 67613 Hematocrit (Bld) [Volume fraction] 35.2 % Low 36.0-46.0 [facility] Comment on above: Performed By: #### 8 9577-1 #### JIMBO ANTHONY ([id number]) [facility] ([facility]) [address] [place] [address] 59304 Hemoglobin (Bld) [Mass/Vol] 11.1 g/dL Low 12.0-16.0 [facility] Comment on above: Performed By: #### 8 9577-1 #### JIMBO ANTHONY ([id number]) [facility] ([facility]) [address] [place] [address] 96360 Immature granulocytes (Bld) [#/Vol] 0.04 x10*3/uL Normal 0.00-0.70 [facility] Comment on above: Performed By: #### 8 9577-1 #### JIMBO ANTHONY ([id number]) [facility] ([facility]) [address] [place] [address] 71218 Immature granulocytes/100 WBC (Bld) 0.8 % Normal 0.0-0.9 [facility] Comment on above: Result Comment: Mira ture Granulocyte Count (IG) includes promyelocytes, myelocytes and metamyelocytes but does not include bands. Percent differential counts (%) should be interpreted in the context of the absolute cell counts (cells/UL). Performed By: #### 8 9577-1 #### JIMBO ANTHONY ([id number]) [facility] ([facility]) [address] [place] [address] 10844 Lymphocytes (Bld) [#/Vol] 0.51 x10*3/uL Low 1.20-4.80 [facility] Comment on above: Performed By: #### 8 9577-1 #### JIMBO ANTHONY ([id number]) [facility] ([facility]) [address] [place] [address] 08612 Lymphocytes/100 WBC (Bld) 10.7 % Normal 13.0-44.0 [facility] Comment on above: Performed By: #### 8 9577-1 #### JIMBO ANTHONY ([id number]) [facility] ([facility]) [address] [place] [address] 46100 MCH (RBC) [Entitic mass] 28.4 pg Normal 26.0-34.0 [facility] Comment on above: Performed By: #### 8 9577-1 #### JIMBO ANTHONY ([id number]) [facility] ([facility]) [address] [place] [address] 22136 MCHC (RBC) [Mass/Vol] 31.5 g/dL Low 32.0-36.0 [facility] Comment on above: Performed By: #### 8 9577-1 #### JIMBO ANTHONY ([id number]) [facility] ([facility]) [address] [place] [address] 38402 MCV (RBC) [Entitic vol] 90 fL Normal 80-100 [facility] Comment on above: Performed By: #### 8 9577-1 #### JIMBO ANTHONY ([id number]) [facility] ([facility]) [address] [place] [address] 63503 Monocytes (Bld) [#/Vol] 0.08 x10*3/uL Low 0.10-1.00 [facility] Comment on above: Performed By: #### 8 9577-1 #### JIMBO ANTHONY ([id number]) [facility] ([facility]) [address] [place] [address] 66796 Monocytes/100 WBC (Bld) 1.7 % Normal 2.0-10.0 [facility] Comment on above: Performed By: #### 8 9577-1 #### JIMBO ANTHONY ([id number]) [facility] ([facility]) [address] [place] [address] 63363 Neutrophils (Bld) [#/Vol] 4.14 x10*3/uL Normal 1.20-7.70 [facility] Comment on above: Result Comment: Perc ent differential counts (%) should be interpreted in the context of the absolute cell counts (cells/uL). Performed By: #### 8 9577-1 #### JIMBO ANTHONY ([id number]) [facility] ([facility]) [address] [place] [address] 65738 Neutrophils/100 WBC (Bld) 86.6 % Normal 40.0-80.0 [facility] Comment on above: Performed By: #### 8 9577-1 #### JIMBO ANTHONY ([id number]) [facility] ([facility]) [address] [place] [address] 56415 Nucleated RBC/100 WBC (Bld) [Ratio] 0.0 /100 WBCs Normal 0.0-0.0 [facility] Comment on above: Performed By: #### 8 9577-1 #### JIMBO ANTHONY ([id number]) [facility] ([facility]) [address] [place] [address] 78396 Platelets (Bld) [#/Vol] 100 x10*3/uL Low 150-450 [facility] Comment on above: Performed By: #### 8 9577-1 #### JIMBO ANTHONY ([id number]) [facility] ([facility]) [address] [place] [address] 50316 RBC (Bld) [#/Vol] 3.91 x10*6/uL Low 4.00-5.20 [facility] Comment on above: Performed By: #### 8 9577-1 #### JIMBO ANTHONY ([id number]) [facility] ([facility]) [address] [place] [address] 08089 WBC (Bld) [#/Vol] 4.8 x10*3/uL Normal 4.4-11.3 [facility] Comment on above: Performed By: #### 8 9577-1 #### JIMBO ANTHONY ([id number]) [facility] ([facility]) [address] [place] [address] Comprehensive metabolic 2000 panelon 12-26-2023 Albumin BCP dye [Mass/Vol] 2.9 g/dL Low 3.4-5.0 [facility] Comment on above: Performed By: #### 8 9577-1 #### JIMBO ANTHONY ([id number]) [facility] ([facility]) [address] [place] [address] 81764 ALP [Catalytic activity/Vol] 110 U/L Normal 33-136 [facility] Comment on above: Performed By: #### 8 9577-1 #### JIMBO ANTHONY ([id number]) [facility] ([facility]) [address] [place] [address] 45555 ALT With P-5'-P [Catalytic activity/Vol] 11 U/L Normal 7-45 [facility] Comment on above: Result Comment: Stephany ents treated with Sulfasalazine may generate falsely decreased results for ALT. Performed By: #### 8 9577-1 #### JIMBO ANTHONY ([id number]) [facility] ([facility]) [address] [place] [address] Anion gap [Moles/Vol] 13 mmol/L Normal 10-20 [facility] Comment on above: Performed By: #### 8 9577-1 #### JIMBO ANTHONY ([id number]) [facility] ([facility]) [address] [place] [address] AST With P-5'-P [Catalytic activity/Vol] 11 U/L Normal 9-39 [facility] Comment on above: Performed By: #### 8 9577-1 #### JIMBO ANTHONY ([id number]) [facility] ([facility]) [address] [place] [address] Bilirubin [Mass/Vol] 0.3 mg/dL Normal 0.0-1.2 [facility] Comment on above: Performed By: #### 8 9577-1 #### JIMBO ANTHONY ([id number]) [facility] ([facility]) [address] [place] [address] Calcium [Mass/Vol] 7.9 mg/dL Low 8.6-10.3 [facility] Comment on above: Performed By: #### 8 9577-1 #### JIMBO ANTHONY ([id number]) [facility] ([facility]) [address] [place] [address] Chloride [Moles/Vol] 100 mmol/L Normal 98-107 [facility] Comment on above: Performed By: #### 8 9577-1 #### JIMBO ANTHONY ([id number]) [facility] ([facility]) [address] [place] [address] CO2 [Moles/Vol] 24 mmol/L Normal 21-32 [facility] Comment on above: Performed By: #### 8 9577-1 #### JIMBO ANTHONY ([id number]) [facility] ([facility]) [address] [place] [address] Creatinine [Mass/Vol] 1.74 mg/dL High 0.50-1.05 [facility] Comment on above: Performed By: #### 8 9577-1 #### JIMBO ANTHONY ([id number]) [facility] ([facility]) [address] [place] [address] Glomerular filtration rate/1.73 sq M.predicted 32 mL/min/1.73m*2 Low >60 [facility] Comment on above: Result Comment: Calc ulations of estimated GFR are performed using the 2020 CKD-EPI Study Refit equation without the race variable for the IDMS-Traceable creatinine methods. https://jasn.asnjournals.org/content/early//ASN.94819 36348 Performed By: #### 8 9577-1 #### JIMBO ANTHONY ([id number]) [facility] ([facility]) [address] [place] [address] Glucose [Mass/Vol] 508 mg/dL Critically high 74-99 [facility] Comment on above: Performed By: #### 8 9577-1 #### JIMBO ANTHONY ([id number]) [facility] ([facility]) [facility] [place] [address] Potassium [Moles/Vol] 5.5 mmol/L High 3.5-5.3 [facility] Comment on above: Performed By: #### 8 9577-1 #### JIMBO ANTHONY ([id number]) [facility] ([facility]) [facility] [place] [address] Protein [Mass/Vol] 6.4 g/dL Normal 6.4-8.2 [facility] Comment on above: Performed By: #### 8 9577-1 #### JIMBO ANTHONY ([id number]) [facility] ([facility]) [facility] [place] [address] Sodium [Moles/Vol] 131 mmol/L Low 136-145 [facility] Comment on above: Performed By: #### 8 9577-1 #### JIMBO ANTHONY ([id number]) [facility] ([facility]) [address] [place] [address] 09179 Urea nitrogen [Mass/Vol] 26 mg/dL High 6-23 [facility] Comment on above: Performed By: #### 8 9577-1 #### JIMBO ANTHONY ([id number]) [facility] ([facility]) [address] [place] [address] 76447 ELECTROLYTE PANEL, URINEon 0 - Chloride (U) [Moles/Vol] 58 mmol/L Normal [facility] Comment on above: Performed By: #### 8 9577-1 #### JIMBO ANTHONY ([id number]) [facility] ([facility]) [address] [place] [address] 39819 CHLORIDE/CREATININE (MMOL/G) IN URINE 49 mmol/g creat Normal 38-318 [facility] Comment on above: Performed By: #### 8 9577-1 #### JIMBO ANTHONY ([id number]) [facility] ([facility]) [address] [place] [address] 63180 Creatinine (U) [Mass/Vol] 119.2 mg/dL Normal 20.0-320.0 [facility] Comment on above: Performed By: #### 8 9577-1 #### JIMBO ANTHONY ([id number]) [facility] ([facility]) [address] [place] [address] 09484 Potassium (U) [Moles/Vol] 64 mmol/L Normal [facility] Comment on above: Performed By: #### 8 9577-1 #### JIMBO ANTHONY ([id number]) [facility] ([facility]) [address] [place] [address] 14591 Potassium/Creatinine (U) [Ratio] 54 mmol/g Creat Normal Not established [facility] Comment on above: Performed By: #### 8 9577-1 #### JIMBO ANTHONY ([id number]) [facility] ([facility]) [address] [place] [address] 77120 Sodium (U) [Moles/Vol] 43 mmol/L Normal Un [facility] Comment on above: Performed By: #### 8 9577-1 #### JIMBO ANTHONY ([id number]) [facility] ([facility]) [address] [place] [address] Sodium/Creatinine (U) [Ratio] 36 mmol/g Creat Normal Not established. [facility] Comment on above: Performed By: #### 8 9577-1 #### JIMBO ANTHONY ([id number]) [facility] ([facility]) [address] [place] [address] 27415 Glucose Test strip manual (B ld) [Mass/Vol]on 12-26-2023 Glucose [Mass/Vol] 450 mg/dL High [address] [place] [address] Comment on above: Performed By: #### 8 9577-1 #### JIMBO ANTHONY ([id number]) [facility] ([facility]) [address] [place] [address] 26996 Glucose [Mass/Vol] 363 mg/dL High [address] [place] [address] Comment on above: Performed By: #### 8 9577-1 #### JIMBO ANTHONY ([id number]) [facility] ([facility]) [facility] [place] [address] Glucose [Mass/Vol] 399 mg/dL High [address] [place] [address] Comment on above: Performed By: #### 8 9577-1 #### JIMBO ANTHONY ([id number]) [facility] ([facility]) [facility] [place] [address] Glucose [Mass/Vol] 435 mg/dL High [address] [place] [address] Comment on above: Performed By: #### 8 9577-1 #### JIMBO ANTHONY ([id number]) [facility] ([facility]) [address] [place] [address] 75023 HbA1c (Bld) [Mass fraction]o n 12-26-2023 Average glucose Estimated from glycated hemoglobin (Bld) [Mass/Vol] 183 mg/dL Normal Not Established [facility] Comment on above: Order Comment: Less than 99th percentile of normal range cutoff- Female and children under 18 years old <14 ng/L; Male <21 ng/L: Negative Repeat testing should be performed if clinically indicated. Female and children under 18 years old 14-50 ng/L; Male 21-50 ng/L: Consistent with possible cardiac damage and possible increased clinical risk. Serial measurements may help to assess extent of myocardial damage. >50 ng/L: Consistent with cardiac damage, increased clinical risk and myocardial infarction. Serial measurements may help assess extent of myocardial damage. NOTE: Children less than 1 year old may have higher baseline troponin levels and results should be interpreted in conjunction with the overall clinical context. NOTE: Troponin I testing is performed using a different testing methodology at [facility] than at other [facility]. Direct result comparisons should only be made within the same method. Performed By: #### 8 9577-1 #### CHOI GABRIELLE ([id number]) [facility] ([facility]) [address] [place] [address] Hemoglobin A1c/Hemoglobin.to [facility] 12-26-2023 HbA1c (Bld) [Mass fraction] 8.0 % High see below [facility] Comment on above: Order Comment: Less than 99th percentile of normal range cutoff- Female and children under 18 years old <14 ng/L; Male <21 ng/L: Negative Repeat testing should be performed if clinically indicated. Female and children under 18 years old 14-50 ng/L; Male 21-50 ng/L: Consistent with possible cardiac damage and possible increased clinical risk. Serial measurements may help to assess extent of myocardial damage. >50 ng/L: Consistent with cardiac damage, increased clinical risk and myocardial infarction. Serial measurements may help assess extent of myocardial damage. NOTE: Children less than 1 year old may have higher baseline troponin levels and results should be interpreted in conjunction with the overall clinical context. NOTE: Troponin I testing is performed using a different testing methodology at [facility] than at other [facility]. Direct result comparisons should only be made within the same method. Performed By: #### 8 9577-1 #### JIMBO ANTHONY ([id number]) [facility] ([facility]) [address] [place] [address] Legionella sp Agon Legionella sp Ag Ql (U) Negative Normal Negative [facility] Comment on above: Performed By: #### 8 9577-1 #### JIMBO ANTHONY ([id number]) [facility] ([facility]) [address] [place] [address] Magnesiumon 12-26-2023 Magnesium [Mass/Vol] 1.59 mg/dL Low 1.60-2.40 [facility] Comment on above: Performed By: #### 8 9577-1 #### JIMBO ANTHONY ([id number]) [facility] ([facility]) [address] [place] [address] 21553 Procalcitoninon 12-26-2023 Procalcitonin [Mass/Vol] 0.10 ng/mL High <=0.07 [facility] Comment on above: Order Comment: Less than 99th percentile of normal range cutoff- Female and children under 18 years old <14 ng/L; Male <21 ng/L: Negative Repeat testing should be performed if clinically indicated. Female and children under 18 years old 14-50 ng/L; Male 21-50 ng/L: Consistent with possible cardiac damage and possible increased clinical risk. Serial measurements may help to assess extent of myocardial damage. >50 ng/L: Consistent with cardiac damage, increased clinical risk and myocardial infarction. Serial measurements may help assess extent of myocardial damage. NOTE: Children less than 1 year old may have higher baseline troponin levels and results should be interpreted in conjunction with the overall clinical context. NOTE: Troponin I testing is performed using a different testing methodology at [facility] than at other [facility]. Direct result comparisons should only be made within the same method. Performed By: #### 8 9577-1 #### JIMBO ANTHONY ([id number]) [facility] ([facility]) [address] [place] [address] 18219 Proteinon 12-26-2023 Protein Qn (U) >1000 High 5-24 [facility] Comment on above: Performed By: #### 8 9577-1 #### IJMBO ANTHONY ([id number]) [facility] ([facility]) [address] [place] [address] 37442 Protein Qn (U)on 12-26-2023 Creatinine (U) [Mass/Vol] 114.0 mg/dL Normal 20.0-320.0 [facility] Comment on above: Performed By: #### 8 9577-1 #### JIMBO ANTHONY ([id number]) [facility] ([facility]) [address] [place] [address] Protein/Creatinine (U) [Mass ratio] Normal [facility] Comment on above: Result Comment: One or more analytes used in this calculation is outside of the analytical measurement range. Calculation cannot be performed. Performed By: #### 8 9577-1 #### JIMBO ANTHONY ([id number]) [facility] ([facility]) [address] [place], [place] [id number] Streptococcus pneumoniae Ago n 12-26-2023 S. pneumoniae Ag Ql (U) Negative Normal Negative [facility] Comment on above: Performed By: #### 8 9577-1 #### JIMBO ANTHONY ([id number]) [facility] ([facility]) [address] [place] [address] VASC US LOWER EXTREMITY VENO US DUPLEX BILATERALon 12-26-2023 VASC US LOWER EXTREMITY [place] [address] [phone], Vascular Lab Report VASC US LOWER EXTREMITY VENOUS DUPLEX BILATERAL Patient Name: JANELLE Rayo PIYUSH Reading Physician: [id number] Christian Hannah MD Study Date: 12/26/2023 Ordering Provider: [id number] LOREN DALE MRN/PID: [id number] Fellow: Technologist: Desi Chen RVT Date of /Age: 408/06/1955 / 68 years Technologist 2: Gender: F Admission Status: Inpatient Location Performed: [facility] Diagnosis/ICD: Pain in right leg-M79.604; Pain in left leg-M79.605 CPT Codes: 90330 Peripheral venous duplex scan for DVT complete Pertinent History: Leg pain. CONCLUSIONS: Right Lower Venous: No evidence of acute deep vein thrombus visualized in the right lower extremity. Left Lower Venous: No evidence of acute deep vein thrombus visualized in the left lower extremity. Comparison: Compared with study from 05/31/2023, no significant change. Imaging & Doppler Findings: Right Compressible Thrombus Flow Distal External Iliac Pulsatile CFV Yes None Pulsatile PFV Yes None FV Proximal Yes None Spontaneous/Phasic FV Mid Yes None FV Distal Yes None Popliteal Yes None Spontaneous/Phasic Peroneal Yes None PTV Yes None Left Compress Thrombus Flow Distal External Iliac Pulsatile CFV Yes None Pulsatile PFV Yes None FV Proximal Yes None Spontaneous/Phasic FV Mid Yes None FV Distal Yes None Popliteal Yes None Spontaneous/Phasic Peroneal Yes None PTV Yes None [id number] Christian Hannah MD Final Normal [facility] Bacteria identifiedon 2023 Bacteria identified Cx Nom (Bld) Test: Blood Culture Specimen Source: Peripheral Venipuncture Specimen Type: Blood culture Specimen Date: 12/25/20231923 Result Date: 12/30/20231899 Result Status: Final result Abnormal: No Resulting Lab: [facility] [id number] [place] [address] CULTURE No growth at 4 days - FINAL REPORT Normal [facility] Comment on above: Performed By: #### 8 9577-1 #### JIMBO ANTHONY ([id number]) [facility] ([facility]) [address] [place] [address] 30850 CBC W Auto Differential pane l (Bld)on 12-25-2023 Basophils (Bld) [#/Vol] 0.02 x10*3/uL Normal 0.00-0.10 [facility] Comment on above: Performed By: #### 8 9577-1 #### JIMBO ANTHONY ([id number]) [facility] ([facility]) [address] [place] [address] 56587 Basophils/100 WBC (Bld) 0.3 % Normal 0.0-2.0 [facility] Comment on above: Performed By: #### 8 9577-1 #### JIMBO ANTHONY ([id number]) [facility] ([facility]) [address] [place] [address] 19726 Eosinophils (Bld) [#/Vol] 0.03 x10*3/uL Normal 0.00-0.70 [facility] Comment on above: Performed By: #### 8 9577-1 #### JIMBO ANTHONY ([id number]) [facility] ([facility]) [address] [place] [address] 40873 Eosinophils/100 WBC (Bld) 0.5 % Normal 0.0-6.0 [facility] Comment on above: Performed By: #### 8 9577-1 #### JIMBO ANTHONY ([id number]) [facility] ([facility]) [address] [place] [address] 54798 Erythrocyte distribution width (RBC) [Ratio] 13.7 % Normal 11.5-14.5 [facility] Comment on above: Performed By: #### 8 9577-1 #### JIMBO ANTHONY ([id number]) [facility] ([facility]) [address] [place] [address] 84519 Hematocrit (Bld) [Volume fraction] 35.0 % Low 36.0-46.0 [facility] Comment on above: Performed By: #### 8 9577-1 #### JIMBO ANTHONY ([id number]) [facility] ([facility]) [address] [place] [address] 08221 Hemoglobin (Bld) [Mass/Vol] 10.9 g/dL Low 12.0-16.0 [facility] Comment on above: Performed By: #### 8 9577-1 #### JIMBO ANTHONY ([id number]) [facility] ([facility]) [address] [place] [address] 12259 Immature granulocytes (Bld) [#/Vol] 0.03 x10*3/uL Normal 0.00-0.70 [facility] Comment on above: Performed By: #### 8 9577-1 #### JIMBO ANTHONY ([id number]) [facility] ([facility]) [address] [place] [address] 76703 Immature granulocytes/100 WBC (Bld) 0.5 % Normal 0.0-0.9 [facility] Comment on above: Result Comment: Mira ture Granulocyte Count (IG) includes promyelocytes, myelocytes and metamyelocytes but does not include bands. Percent differential counts (%) should be interpreted in the context of the absolute cell counts (cells/UL). Performed By: #### 8 9577-1 #### JIMBO ANTHONY ([id number]) [facility] ([facility]) [address] [place] [address] Lymphocytes (Bld) [#/Vol] 1.49 x10*3/uL Normal 1.20-4.80 [facility] Comment on above: Performed By: #### 8 9577-1 #### JIMBO ANTHONY ([id number]) [facility] ([facility]) [address] [place] [address] 97136 Lymphocytes/100 WBC (Bld) 25.7 % Normal 13.0-44.0 [facility] Comment on above: Performed By: #### 8 9577-1 #### JIMBO ANTHONY ([id number]) [facility] ([facility]) [address] [place] [address] 47443 MCH (RBC) [Entitic mass] 28.1 pg Normal 26.0-34.0 [facility] Comment on above: Performed By: #### 8 9577-1 #### JIMBO ANTHONY ([id number]) [facility] ([facility]) [address] [place] [address] 76052 MCHC (RBC) [Mass/Vol] 31.1 g/dL Low 32.0-36.0 [facility] Comment on above: Performed By: #### 8 9577-1 #### JIMBO ANTHONY ([id number]) [facility] ([facility]) [address] [place] [address] 29194 MCV (RBC) [Entitic vol] 90 fL Normal 80-100 [facility] Comment on above: Performed By: #### 8 9577-1 #### JIMBO ANTHONY ([id number]) [facility] ([facility]) [address] [place] [address] Monocytes (Bld) [#/Vol] 0.43 x10*3/uL Normal 0.10-1.00 [facility] Comment on above: Performed By: #### 8 9577-1 #### JIMBO ANTHONY ([id number]) [facility] ([facility]) [address] [place] [address] 69947 Monocytes/100 WBC (Bld) 7.4 % Normal 2.0-10.0 [facility] Comment on above: Performed By: #### 8 9577-1 #### JIMBO ANTHONY ([id number]) [facility] ([facility]) [address] [place] [address] 76928 Neutrophils (Bld) [#/Vol] 3.80 x10*3/uL Normal 1.20-7.70 [facility] Comment on above: Result Comment: Perc ent differential counts (%) should be interpreted in the context of the absolute cell counts (cells/uL). Performed By: #### 8 9577-1 #### JIMBO ANTHONY ([id number]) [facility] ([facility]) [address] [place] [id number] Neutrophils/100 WBC (Bld) 65.6 % Normal 40.0-80.0 [facility] Comment on above: Performed By: #### 8 9577-1 #### JIMBO ANTHONY ([id number]) [facility] ([facility] [facility]) [address] [place] [address] 63401 Nucleated RBC/100 WBC (Bld) [Ratio] 0.0 /100 WBCs Normal 0.0-0.0 [facility] Comment on above: Performed By: #### 8 9577-1 #### JIMBO ANTHONY ([id number]) [facility] ([facility]) [address] [place] [address] 03428 Platelets (Bld) [#/Vol] 104 x10*3/uL Low 150-450 [facility] Comment on above: Performed By: #### 8 9577-1 #### JIMBO ANTHONY ([id number]) [facility] ([facility]) [address] [place] [address] RBC (Bld) [#/Vol] 3.88 x10*6/uL Low 4.00-5.20 [facility] Comment on above: Performed By: #### 8 9577-1 #### JIMBO ANTHONY ([id number]) [facility] ([facility]) [facility] [place] [id number] WBC (Bld) [#/Vol] 5.8 x10*3/uL Normal 4.4-11.3 [facility] Comment on above: Performed By: #### 8 9577-1 #### CHOI GABRIELLE ([id number]) [facility] ([facility]) [address] [place] [address] CT CHEST WO IV CONTRASTon CT CHEST WO IV CONTRAST Interpreted By: Matthew Parker, STUDY: CT CHEST WO IV CONTRAST; 12/25/2023 11:12 pm INDICATION: Signs/Symptoms:? infiltrate on CXR with acute hypoxemic respiratory failure, eval for PNA and signs of aspiration. COMPARISON: None. ACCESSION NUMBER(S): [id number] ORDERING CLINICIAN: LOREN DALE TECHNIQUE: Helical data acquisition of the chest was obtained without IV contrast material. Images were reformatted in axial, coronal, and sagittal planes. FINDINGS: LUNGS AND AIRWAYS: The trachea and central airways are patent. No endobronchial lesion. The left lung is well expanded and clear. A moderate right-sided pleural effusion is present, with partial right lower lobe atelectasis. The right middle and upper lobes are expanded. Mild thickening of the interlobar fissures of the right lung is seen, secondary to some fluid in the fissures. 3 mm nodule right upper lobe at image 81 of series 8. 4 mm nodule right upper lobe at image 77 of series 8 MEDIASTINUM AND ELY, LOWER NECK AND AXILLA: The left thyroid lobe is normal. There is a nodule in the lower pole of the right lobe of the thyroid measuring about 7 mm. No axillary lymphadenopathy. Nonenlarged paratracheal and subcarinal lymph nodes are seen. The ely are not adequately evaluated in the absence of IV contrast. Esophagus appears within normal limits as seen. HEART AND VESSELS: The thoracic aorta and pulmonary arteries are normal in size. Calcification is seen in the aortic root and the aortic arch as well as at the origin of the great arteries. Moderate calcifications are seen in the coronary arteries. Trace pericardial effusion is present. UPPER ABDOMEN: A small amount of ascites is present adjacent to the liver. The liver is enlarged with an AP diameter of 24 cm and a nodular contour of the liver surface suggestive of cirrhosis. The liver density is normal. Mild splenomegaly with the AP diameter of the spleen being 13.3 cm. A low-density mass is seen, in the right adrenal, consistent with an adenoma, measuring 1.6 cm. CHEST WALL AND OSSEOUS STRUCTURES: There are no suspicious osseous lesions. Multilevel degenerative changes are present. A nodule is seen, in the superior aspect of the left breast, consistent with a intramammary lymph node at image 96/335 and sagittal image 17. Degenerative changes are present in the thoracic spine. IMPRESSION: 1. Partial atelectasis of the right lower lobe with a moderate right-sided pleural effusion. Nonenlarged mediastinal lymph nodes probably reactive 2. Hepatosplenomegaly. Cirrhosis. 3. Small volume ascites. MACRO: None Signed by: Matthew Parker 12/26/2023 8:36 AM Dictation workstation: [id number] Normal [facility] Cobalaminson 12-25-2023 Cobalamin (Vitamin B12) [Mass/Vol] 280 pg/mL Normal 211-911 [facility] Comment on above: Performed By: #### 8 9577-1 #### JIMBO ANTHONY ([id number]) [facility] ([facility]) [address] [place] [address] Comprehensive metabolic 2000 panelon 12-25-2023 Albumin BCP dye [Mass/Vol] 3.0 g/dL Low 3.4-5.0 [facility] Comment on above: Performed By: #### 8 9577-1 #### JIMBO ANTHONY ([id number]) [facility] ([facility]) [address] [place], [place] [id number] ALP [Catalytic activity/Vol] 138 U/L High 33-136 [facility] Comment on above: Performed By: #### 8 9577-1 #### JIMBO ANTHONY ([id number]) [facility] ([facility]) [address] [place] [address] ALT With P-5'-P [Catalytic activity/Vol] 11 U/L Normal 7-45 [facility] Comment on above: Result Comment: Stephany ents treated with Sulfasalazine may generate falsely decreased results for ALT. Performed By: #### 8 9577-1 #### JIMBO ANTHONY ([id number]) [facility] ([facility]) [address] [place] [address] Anion gap [Moles/Vol] 10 mmol/L Normal 10-20 [facility] Comment on above: Performed By: #### 8 9577-1 #### JIMBO ANTHONY ([id number]) [facility] ([facility]) [address] [place] [address] AST With P-5'-P [Catalytic activity/Vol] 15 U/L Normal 9-39 [facility] Comment on above: Performed By: #### 8 9577-1 #### JIMBO ANTHONY ([id number]) [facility] ([facility]) [address] [place] [address] Bilirubin [Mass/Vol] 0.3 mg/dL Normal 0.0-1.2 [facility] Comment on above: Performed By: #### 8 9577-1 #### JIMBO ANTHONY ([id number]) [facility] ([facility]) [address] [place] [address] Calcium [Mass/Vol] 8.4 mg/dL Low 8.6-10.3 [facility] Comment on above: Performed By: #### 8 9577-1 #### JIMBO ANTHONY ([id number]) [facility] ([facility]) [address] [place] [address] Chloride [Moles/Vol] 101 mmol/L Normal 98-107 [facility] Comment on above: Performed By: #### 8 9577-1 #### JIMBO ANTHONY ([id number]) [facility] ([facility]) [address] [place] [address] CO2 [Moles/Vol] 27 mmol/L Normal 21-32 [facility] Comment on above: Performed By: #### 8 9577-1 #### JIMBO ANTHONY ([id number]) [facility] ([facility]) [facility] [place] [address] Creatinine [Mass/Vol] 1.57 mg/dL High 0.50-1.05 [facility] Comment on above: Performed By: #### 8 9577-1 #### JIMBO ANTHONY ([id number]) [facility] ([facility]) [address] [place] [address] 14929 Glomerular filtration rate/1.73 sq M.predicted 36 mL/min/1.73m*2 Low >60 [facility] Comment on above: Result Comment: Calc ulations of estimated GFR are performed using the 2020 CKD-EPI Study Refit equation without the race variable for the IDMS-Traceable creatinine methods. https://jasn.asnjournals.org/content/early//ASN.74591 15628 Performed By: #### 8 9577-1 #### JIMBO ANTHONY ([id number]) [facility] ([facility]) [address] [place] [address] 28824 Glucose [Mass/Vol] 358 mg/dL High 74-99 [facility] Comment on above: Performed By: #### 8 9577-1 #### JIMBO ANTHONY ([id number]) [facility] ([facility]) [address] [place] [address] 08958 Potassium [Moles/Vol] 4.5 mmol/L Normal 3.5-5.3 [facility] Comment on above: Performed By: #### 8 9577-1 #### JIMBO ANTHONY ([id number]) [facility] ([facility]) [address] [place] [address] 75207 Protein [Mass/Vol] 6.6 g/dL Normal 6.4-8.2 [facility] Comment on above: Performed By: #### 8 9577-1 #### JIMBO ANTHONY ([id number]) [facility] ([facility]) [address] [place] [address] Sodium [Moles/Vol] 133 mmol/L Low 136-145 [facility] Comment on above: Performed By: #### 8 9577-1 #### JIMBO RIVASMARTHA ([id number]) [facility] ([facility]) [address] [place] [address] Urea nitrogen [Mass/Vol] 22 mg/dL Normal 6-23 [facility] Comment on above: Performed By: #### 8 9577-1 #### JIMBO RIVASMARTHA ([id number]) [facility] ([facility]) [address] [place] [address] ECG 12-LEADon 12-25-2023 ECG 12-LEAD Ventricular Rate 65 Atrial Rate 288 QRS Duration 54 Q-T Interval 406 QTC Calculation(Bazett) 422 P Alpine 50 R Alpine 21 T Alpine 75 QRS Count 11 Q Onset 230 P Onset 153 P Offset 202 T Offset 433 QTC Fredericia 416 Diagnosis Atrial flutter Low voltage QRS Septal infarct , age undetermined Abnormal ECG When compared with ECG of 18-DEC-2023 14:46, (unconfirmed) Atrial flutter has replaced Sinus rhythm QRS duration has decreased Septal infarct is now Present ST now depressed in Anterior leads See ED provider note for full interpretation and clinical correlation Confirmed by Marty Feliz ([id number]) on 12/29/2023 11:30:38 PM Normal [facility] Folateon 12-25-2023 Folate [Mass/Vol] 8.5 ng/mL Normal >5.0 [facility] Comment on above: Order Comment: Less than 99th percentile of normal range cutoff- Female and children under 18 years old <14 ng/L; Male <21 ng/L: Negative Repeat testing should be performed if clinically indicated. Female and children under 18 years old 14-50 ng/L; Male 21-50 ng/L: Consistent with possible cardiac damage and possible increased clinical risk. Serial measurements may help to assess extent of myocardial damage. >50 ng/L: Consistent with cardiac damage, increased clinical risk and myocardial infarction. Serial measurements may help assess extent of myocardial damage. NOTE: Children less than 1 year old may have higher baseline troponin levels and results should be interpreted in conjunction with the overall clinical context. NOTE: Troponin I testing is performed using a different testing methodology at [facility] than at other [facility]. Direct result comparisons should only be made within the same method. Performed By: #### 8 9577-1 #### JIMBO ANTHONY ([id number]) [facility] ([facility]) [address] [place] [address] 91854 Glucose Test strip manual (B ld) [Mass/Vol]on 12-25-2023 Glucose [Mass/Vol] 308 mg/dL High 74-99 [facility] Comment on above: Performed By: #### 8 9577-1 #### JIMBO ANTHONY ([id number]) [facility] ([facility]) [address] [place] [address]27 Iron and Iron binding capaci ty panelon 12-25-2023 Iron [Mass/Vol] 43 ug/dL Normal 35-150 [facility] Comment on above: Performed By: #### 8 9577-1 #### JIMBO ANTHONY ([id number]) [facility] ([facility]) [address] [place] [address] 22711 Iron binding capacity [Mass/Vol] 294 ug/dL Normal 240-445 [facility] Comment on above: Performed By: #### 8 9577-1 #### JIMBO ANTHONY ([id number]) [facility] ([facility]) [address] [place] [address] 27514 Iron binding capacity.unsaturated [Mass/Vol] 251 ug/dL Normal 110-370 [facility] Comment on above: Performed By: #### 8 9577-1 #### JIMBO ANTHONY ([id number]) [facility] ([facility]) [address] [place] [address] 54743 Iron saturation [Mass fraction] 15 % Low 25-45 [facility] Comment on above: Performed By: #### 8 9577-1 #### JIMBO ANTHONY ([id number]) [facility] ([facility]) [address] [place] [address] 20589 Lactateon 12-25-2023 Lactate [Moles/Vol] 1.4 mmol/L Normal 0.4-2.0 [facility] Comment on above: Order Comment: Less than 99th percentile of normal range cutoff- Female and children under 18 years old <14 ng/L; Male <21 ng/L: Negative Repeat testing should be performed if clinically indicated. Female and children under 18 years old 14-50 ng/L; Male 21-50 ng/L: Consistent with possible cardiac damage and possible increased clinical risk. Serial measurements may help to assess extent of myocardial damage. >50 ng/L: Consistent with cardiac damage, increased clinical risk and myocardial infarction. Serial measurements may help assess extent of myocardial damage. NOTE: Children less than 1 year old may have higher baseline troponin levels and results should be interpreted in conjunction with the overall clinical context. NOTE: Troponin I testing is performed using a different testing methodology at [facility] than at other [facility]. Direct result comparisons should only be made within the same method. Performed By: #### 8 9577-1 #### JIMBO ANTHONY ([id number]) [facility] ([facility]) [address] [place] [address] Natriuretic peptide B [Mass/ Vol]on 12-25-2023 Natriuretic peptide B (Bld) [Mass/Vol] 235 pg/mL High 0-99 [facility] Comment on above: Order Comment: Less than 99th percentile of normal range cutoff- Female and children under 18 years old <14 ng/L; Male <21 ng/L: Negative Repeat testing should be performed if clinically indicated. Female and children under 18 years old 14-50 ng/L; Male 21-50 ng/L: Consistent with possible cardiac damage and possible increased clinical risk. Serial measurements may help to assess extent of myocardial damage. >50 ng/L: Consistent with cardiac damage, increased clinical risk and myocardial infarction. Serial measurements may help assess extent of myocardial damage. NOTE: Children less than 1 year old may have higher baseline troponin levels and results should be interpreted in conjunction with the overall clinical context. NOTE: Troponin I testing is performed using a different testing methodology at [facility] than at other [facility]. Direct result comparisons should only be made within the same method. Performed By: #### 8 9577-1 #### JIMBO ANTHONY ([id number]) [facility] ([facility]) [address] [place] [address] SARS coronavirus 2 RNAon SARS-CoV-2 (COVID-19) RNA JACKIE+probe Ql (Resp) Not detected Normal Not Detected [facility] Comment on above: Order Comment: Less than 99th percentile of normal range cutoff- Female and children under 18 years old <14 ng/L; Male <21 ng/L: Negative Repeat testing should be performed if clinically indicated. Female and children under 18 years old 14-50 ng/L; Male 21-50 ng/L: Consistent with possible cardiac damage and possible increased clinical risk. Serial measurements may help to assess extent of myocardial damage. >50 ng/L: Consistent with cardiac damage, increased clinical risk and myocardial infarction. Serial measurements may help assess extent of myocardial damage. NOTE: Children less than 1 year old may have higher baseline troponin levels and results should be interpreted in conjunction with the overall clinical context. NOTE: Troponin I testing is performed using a different testing methodology at [facility] than at other [facility]. Direct result comparisons should only be made within the same method. Performed By: #### 8 9577-1 #### CHOI GABRIELLE ([id number]) [facility] ([facility]) [facility] [place] [address] TSH WITH REFLEX TO FREE T4 I F ABNORMALon 12-25-2023 TSH Qn 7.23 m[IU]/L High 0.44-3.98 [facility] Comment on above: Order Comment: Less than 99th percentile of normal range cutoff- Female and children under 18 years old <14 ng/L; Male <21 ng/L: Negative Repeat testing should be performed if clinically indicated. Female and children under 18 years old 14-50 ng/L; Male 21-50 ng/L: Consistent with possible cardiac damage and possible increased clinical risk. Serial measurements may help to assess extent of myocardial damage. >50 ng/L: Consistent with cardiac damage, increased clinical risk and myocardial infarction. Serial measurements may help assess extent of myocardial damage. NOTE: Children less than 1 year old may have higher baseline troponin levels and results should be interpreted in conjunction with the overall clinical context. NOTE: Troponin I testing is performed using a different testing methodology at [facility] than at [facility]. Direct result comparisons should only be made within the same method. Performed By: #### 8 9577-1 #### JIMBO ANTHONY ([id number]) [facility] ([facility]) [facility] [place] [id number] Thyroxine.freeon 12-25-2023 Free T4 [Mass/Vol] 0.67 ng/dL Normal 0.61-1.12 [facility] Comment on above: Order Comment: Less than 99th percentile of normal range cutoff- Female and children under 18 years old <14 ng/L; Male <21 ng/L: Negative Repeat testing should be performed if clinically indicated. Female and children under 18 years old 14-50 ng/L; Male 21-50 ng/L: Consistent with possible cardiac damage and possible increased clinical risk. Serial measurements may help to assess extent of myocardial damage. >50 ng/L: Consistent with cardiac damage, increased clinical risk and myocardial infarction. Serial measurements may help assess extent of myocardial damage. NOTE: Children less than 1 year old may have higher baseline troponin levels and results should be interpreted in conjunction with the overall clinical context. NOTE: Troponin I testing is performed using a different testing methodology at [facility] than at [facility]. Direct result comparisons should only be made within the same method. Performed By: #### 8 9577-1 #### JIMBO ANTHONY ([id number]) [facility] ([facility]) [facility] [place] [id number] Troponin I.cardiac panelon 0 12-25-2023 Tropinin I.cardiac panel High sensitivity method 7 ng/L Normal 0-13 [facility] Comment on above: Order Comment: Less than 99th percentile of normal range cutoff- Female and children under 18 years old <14 ng/L; Male <21 ng/L: Negative Repeat testing should be performed if clinically indicated. Female and children under 18 years old 14-50 ng/L; Male 21-50 ng/L: Consistent with possible cardiac damage and possible increased clinical risk. Serial measurements may help to assess extent of myocardial damage. >50 ng/L: Consistent with cardiac damage, increased clinical risk and myocardial infarction. Serial measurements may help assess extent of myocardial damage. NOTE: Children less than 1 year old may have higher baseline troponin levels and results should be interpreted in conjunction with the overall clinical context. NOTE: Troponin I testing is performed using a different testing methodology at [facility] than at [facility]. Direct result comparisons should only be made within the same method. Performed By: #### 8 9577-1 #### JIMBO ANTHONY ([id number]) [facility] ([facility]) [address] [place] [id number] US RENAL COMPLETEon 12-25-19 US RENAL COMPLETE Interpreted By: Matthew Parker, STUDY: US RENAL COMPLETE; 12/26/2023 7:16 am INDICATION: Signs/Symptoms:MOLLY on CKD, eval for post-renal obstruction or hydronephrosis. COMPARISON: None. ACCESSION NUMBER(S): [id number] ORDERING CLINICIAN: LOREN DALE TECHNIQUE: Multiple images of the kidneys were obtained . FINDINGS: RIGHT KIDNEY: The right kidney measures 11.0 cm in length. The renal cortical echogenicity and thickness are within normal limits. The renal cortical thickness is 1.2 cm. No hydronephrosis is present; no evidence of nephrolithiasis. LEFT KIDNEY: The left kidney measures 9.9 cm in length. The renal cortical echogenicity and thickness are within normal limits. The renal cortical thickness is 1.1 cm. No hydronephrosis is present; no evidence of nephrolithiasis. BLADDER: The urinary bladder contains very small amount of urine. Ureteral jets were not visualized. The spleen is enlarged measuring 13.6 x 6.1 x 10.6 cm with a volume of 454 mL. IMPRESSION: No hydronephrosis. Normal renal size. Very small amount of urine present in the urinary bladder. Splenomegaly. MACRO: None Signed by: Matthew Parekr 12/26/2023 8:38 AM Dictation workstation: [id number] Normal [facility] Urinalysis complete W Reflex Culture panel (U)on 12-25-2023 Appearance (U) Clear Normal Clear [facility] Comment on above: Performed By: #### 8 9577-1 #### JIMBO ANTHONY ([id number]) [facility] ([facility]) [address] [place] [address] Bilirubin (U) [Mass/Vol] Negative Normal NEGATIVE [facility] Comment on above: Performed By: #### 8 9577-1 #### JIMBO ANTHONY ([id number]) [facility] ([facility]) [address] [place] [address] 34686 Color (U) Light-Yellow Normal Light-Yellow , Yellow, Dark-Yellow [facility] Comment on above: Performed By: #### 8 9577-1 #### JIMBO ANTHONY ([id number]) [facility] ([facility]) [address] [place] [address] 77143 Epithelial cells.squamous Auto (Urine sed) [#/Area] 1-9 (SPARSE) Normal Reference range not established. [facility] Comment on above: Performed By: #### 8 9577-1 #### JIMBO ANTHONY ([id number]) [facility] ([facility]) [address] [place], [place] [id number] Glucose Auto test strip (U) [Mass/Vol] 500 (3+) Abnormal Normal [facility] Comment on above: Performed By: #### 8 9577-1 #### JIMBO ANTHONY ([id number]) [facility] ([facility]) [address] [place] [address] 26647 Ketones (U) [Mass/Vol] Negative Normal NEGATIVE [facility] Comment on above: Performed By: #### 8 9577-1 #### JIMBO ANTHONY ([id number]) [facility] ([facility]) [address] [place] [address] 62171 Leukocyte esterase Auto test strip Ql (U) Negative Normal NEGATIVE [facility] Comment on above: Performed By: #### 8 9577-1 #### JIMBO ANTHONY ([id number]) [facility] ([facility]) [address] [place] [address] 46443 Nitrite Auto test strip Ql (U) Negative Normal NEGATIVE [facility] Comment on above: Performed By: #### 8 9577-1 #### JIMBO ANTHONY ([id number]) [facility] ([facility]) [address] [place] [address] 75204 pH (U) 6.0 [pH] Normal 5.0, 5.5, 6.0, 6.5, 7.0, 7.5, 8.0 [facility] Comment on above: Performed By: #### 8 9577-1 #### JIMBO ANTHONY ([id number]) [facility] ([facility]) [address] [place] [address] 51134 Protein (U) [Mass/Vol] 300 (3+) Abnormal NEGAT ABDELRAHMAN, 10 (TRACE), 20 (TRACE) [facility] Comment on above: Performed By: #### 8 9577-1 #### JIMBO ANTHONY ([id number]) [facility] ([facility]) [address] [place] [address] RBC (U) [#/Vol] 0.2 (2+) Abnormal NEGATIVE [facility] Comment on above: Performed By: #### 8 9577-1 #### JIMBO ANTHONY ([id number]) [facility] ([facility]) [address] [place] [address] 33979 RBC Auto (Urine sed) [#/Area] 11-20 Abnormal NONE, 1-2, 3-5 [facility] Comment on above: Performed By: #### 8 9577-1 #### JIMBO ANTHONY ([id number]) [facility] ([facility]) [address] [place] [address] Specific gravity (U) [Rel density] 1.017 Normal 1.005-1.035 [facility] Comment on above: Performed By: #### 8 9577-1 #### JIMBO ANTHONY ([id number]) [facility] ([facility]) [address] [place] [address] 05412 Urobilinogen (U) [Mass/Vol] Normal Normal Normal [facility] Comment on above: Performed By: #### 8 9577-1 #### JIMBO ANTHONY ([id number]) [facility] ([facility]) [address] [place] [address] 51048 WBC Auto (Urine sed) [#/Area] 1-5 Normal 1-5, NONE [facility] Comment on above: Performed By: #### 8 9577-1 #### JIMBO ANTHONY ([id number]) [facility] ([facility]) [address] [place] [address] XR CHEST 1 VIEWon 12-25-2023 XR CHEST 1 VIEW Interpreted By: Gretel Santa, STUDY: XR CHEST 1 VIEW; 12/25/2023 7:29 pm INDICATION: Signs/Symptoms:SOB. COMPARISON: 11/25/2023 ACCESSION NUMBER(S): [id number] ORDERING CLINICIAN: RYAN MEHTA FINDINGS: CARDIOMEDIASTINAL SILHOUETTE: Cardiomediastinal silhouette is normal in size and configuration. LUNGS: Right basilar opacity, a combination of small pleural effusion and airspace opacity, slightly increased. No pneumothorax. ABDOMEN: No remarkable upper abdominal findings. BONES: No acute osseous abnormality. IMPRESSION: Increased right basilar opacity, likely a combination of small right pleural effusion and atelectasis. Pneumonia is not excluded in the appropriate clinical setting. MACRO: None Signed by: Gretel Santa 12/25/2023 7:54 PM Dictation workstation: [id number] Normal [facility] Bacteria identifiedon 2023 Bacteria identified Cx Nom (Bld) Test: Blood Culture Specimen Source: Peripheral Venipuncture Specimen Type: Blood culture Specimen Date: 11/25/2023 142 Result Date: 11/30/2023 020 Result Status: Final result Abnormal: No Resulting Lab: [facility] [id number] [place] [address] CULTURE No growth at 4 days - FINAL REPORT Normal [facility] Comment on above: Performed By: #### 8 9577-1 #### CHOI GABRIELLE ([id number]) [facility] ([facility]) [address] [place] [address] CBC W Auto Differential pane l (Bld)on 11-25-2023 Basophils (Bld) [#/Vol] 0.01 x10*3/uL Normal 0.00-0.10 [facility] Comment on above: Order Comment: Less than 99th percentile of normal range cutoff- Female and children under 18 years old <14 ng/L; Male <21 ng/L: Negative Repeat testing should be performed if clinically indicated. Female and children under 18 years old 14-50 ng/L; Male 21-50 ng/L: Consistent with possible cardiac damage and possible increased clinical risk. Serial measurements may help to assess extent of myocardial damage. >50 ng/L: Consistent with cardiac damage, increased clinical risk and myocardial infarction. Serial measurements may help assess extent of myocardial damage. NOTE: Children less than 1 year old may have higher baseline troponin levels and results should be interpreted in conjunction with the overall clinical context. NOTE: Troponin I testing is performed using a different testing methodology at [facility] than at other [facility]. Direct result comparisons should only be made within the same method. Performed By: #### 8 9577-1 #### JIMBO ANTHONY ([id number]) [facility] ([facility]) [address] [place] [address] Basophils/100 WBC (Bld) 0.2 % Normal 0.0-2.0 [facility] Comment on above: Order Comment: Less than 99th percentile of normal range cutoff- Female and children under 18 years old <14 ng/L; Male <21 ng/L: Negative Repeat testing should be performed if clinically indicated. Female and children under 18 years old 14-50 ng/L; Male 21-50 ng/L: Consistent with possible cardiac damage and possible increased clinical risk. Serial measurements may help to assess extent of myocardial damage. >50 ng/L: Consistent with cardiac damage, increased clinical risk and myocardial infarction. Serial measurements may help assess extent of myocardial damage. NOTE: Children less than 1 year old may have higher baseline troponin levels and results should be interpreted in conjunction with the overall clinical context. NOTE: Troponin I testing is performed using a different testing methodology at [facility] than at other [facility]. Direct result comparisons should only be made within the same method. Performed By: #### 8 9577-1 #### JIMBO ANTHONY ([id number]) [facility] ([facility]) [address] [place] [address] Eosinophils (Bld) [#/Vol] 0.04 x10*3/uL Normal 0.00-0.70 [facility] Comment on above: Order Comment: Less than 99th percentile of normal range cutoff- Female and children under 18 years old <14 ng/L; Male <21 ng/L: Negative Repeat testing should be performed if clinically indicated. Female and children under 18 years old 14-50 ng/L; Male 21-50 ng/L: Consistent with possible cardiac damage and possible increased clinical risk. Serial measurements may help to assess extent of myocardial damage. >50 ng/L: Consistent with cardiac damage, increased clinical risk and myocardial infarction. Serial measurements may help assess extent of myocardial damage. NOTE: Children less than 1 year old may have higher baseline troponin levels and results should be interpreted in conjunction with the overall clinical context. NOTE: Troponin I testing is performed using a different testing methodology at [facility] than at other [facility]. Direct result comparisons should only be made within the same method. Performed By: #### 8 9577-1 #### JIMBO ANTHONY ([id number]) [facility] ([facility]) [address] [place] [address] Eosinophils/100 WBC (Bld) 0.8 % Normal 0.0-6.0 [facility] Comment on above: Order Comment: Less than 99th percentile of normal range cutoff- Female and children under 18 years old <14 ng/L; Male <21 ng/L: Negative Repeat testing should be performed if clinically indicated. Female and children under 18 years old 14-50 ng/L; Male 21-50 ng/L: Consistent with possible cardiac damage and possible increased clinical risk. Serial measurements may help to assess extent of myocardial damage. >50 ng/L: Consistent with cardiac damage, increased clinical risk and myocardial infarction. Serial measurements may help assess extent of myocardial damage. NOTE: Children less than 1 year old may have higher baseline troponin levels and results should be interpreted in conjunction with the overall clinical context. NOTE: Troponin I testing is performed using a different testing methodology at [facility] than at [facility]. Direct result comparisons should only be made within the same method. Performed By: #### 8 9577-1 #### JIMBO ANTHONY ([id number]) [facility] ([facility]) [address] [place] [address] Erythrocyte distribution width (RBC) [Ratio] 14.1 % Normal 11.5-14.5 [facility] Comment on above: Order Comment: Less than 99th percentile of normal range cutoff- Female and children under 18 years old <14 ng/L; Male <21 ng/L: Negative Repeat testing should be performed if clinically indicated. Female and children under 18 years old 14-50 ng/L; Male 21-50 ng/L: Consistent with possible cardiac damage and possible increased clinical risk. Serial measurements may help to assess extent of myocardial damage. >50 ng/L: Consistent with cardiac damage, increased clinical risk and myocardial infarction. Serial measurements may help assess extent of myocardial damage. NOTE: Children less than 1 year old may have higher baseline troponin levels and results should be interpreted in conjunction with the overall clinical context. NOTE: Troponin I testing is performed using a different testing methodology at [facility] than at [facility]. Direct result comparisons should only be made within the same method. Performed By: #### 8 9577-1 #### JIMBO ANTHONY ([id number]) [facility] ([facility]) [address] [place] [address] Hematocrit (Bld) [Volume fraction] 34.5 % Low 36.0-46.0 [facility] Comment on above: Order Comment: Less than 99th percentile of normal range cutoff- Female and children under 18 years old <14 ng/L; Male <21 ng/L: Negative Repeat testing should be performed if clinically indicated. Female and children under 18 years old 14-50 ng/L; Male 21-50 ng/L: Consistent with possible cardiac damage and possible increased clinical risk. Serial measurements may help to assess extent of myocardial damage. >50 ng/L: Consistent with cardiac damage, increased clinical risk and myocardial infarction. Serial measurements may help assess extent of myocardial damage. NOTE: Children less than 1 year old may have higher baseline troponin levels and results should be interpreted in conjunction with the overall clinical context. NOTE: Troponin I testing is performed using a different testing methodology at [facility] than at [facility]. Direct result comparisons should only be made within the same method. Performed By: #### 8 9577-1 #### JIMBO ANTHONY ([id number]) [facility] ([facility]) [address] [place] [address] Hemoglobin (Bld) [Mass/Vol] 11.3 g/dL Low 12.0-16.0 [facility] Comment on above: Order Comment: Less than 99th percentile of normal range cutoff- Female and children under 18 years old <14 ng/L; Male <21 ng/L: Negative Repeat testing should be performed if clinically indicated. Female and children under 18 years old 14-50 ng/L; Male 21-50 ng/L: Consistent with possible cardiac damage and possible increased clinical risk. Serial measurements may help to assess extent of myocardial damage. >50 ng/L: Consistent with cardiac damage, increased clinical risk and myocardial infarction. Serial measurements may help assess extent of myocardial damage. NOTE: Children less than 1 year old may have higher baseline troponin levels and results should be interpreted in conjunction with the overall clinical context. NOTE: Troponin I testing is performed using a different testing methodology at [facility] than at [facility]. Direct result comparisons should only be made within the same method. Performed By: #### 8 9577-1 #### JIMBO ANTHONY ([id number]) [facility] ([facility]) [address] [place] [address] Immature granulocytes (Bld) [#/Vol] 0.02 x10*3/uL Normal 0.00-0.70 [facility] Comment on above: Order Comment: Less than 99th percentile of normal range cutoff- Female and children under 18 years old <14 ng/L; Male <21 ng/L: Negative Repeat testing should be performed if clinically indicated. Female and children under 18 years old 14-50 ng/L; Male 21-50 ng/L: Consistent with possible cardiac damage and possible increased clinical risk. Serial measurements may help to assess extent of myocardial damage. >50 ng/L: Consistent with cardiac damage, increased clinical risk and myocardial infarction. Serial measurements may help assess extent of myocardial damage. NOTE: Children less than 1 year old may have higher baseline troponin levels and results should be interpreted in conjunction with the overall clinical context. NOTE: Troponin I testing is performed using a different testing methodology at [facility] than at [facility]. Direct result comparisons should only be made within the same method. Performed By: #### 8 9577-1 #### JIMBO ANTHONY ([id number]) [facility] ([facility]) [facility] [place] [address] Immature granulocytes/100 WBC (Bld) 0.4 % Normal 0.0-0.9 [facility] Comment on above: Order Comment: Less than 99th percentile of normal range cutoff- Female and children under 18 years old <14 ng/L; Male <21 ng/L: Negative Repeat testing should be performed if clinically indicated. Female and children under 18 years old 14-50 ng/L; Male 21-50 ng/L: Consistent with possible cardiac damage and possible increased clinical risk. Serial measurements may help to assess extent of myocardial damage. >50 ng/L: Consistent with cardiac damage, increased clinical risk and myocardial infarction. Serial measurements may help assess extent of myocardial damage. NOTE: Children less than 1 year old may have higher baseline troponin levels and results should be interpreted in conjunction with the overall clinical context. NOTE: Troponin I testing is performed using a different testing methodology at [facility] than at [facility]. Direct result comparisons should only be made within the same method. Result Comment: Mira ture Granulocyte Count (IG) includes promyelocytes, myelocytes and metamyelocytes but does not include bands. Percent differential counts (%) should be interpreted in the context of the absolute cell counts (cells/UL). Performed By: #### 8 9577-1 #### JIMBO ANTHONY ([id number]) [facility] ([facility]) [address] [place] [address] Lymphocytes (Bld) [#/Vol] 1.19 x10*3/uL Low 1.20-4.80 [facility] Comment on above: Order Comment: Less than 99th percentile of normal range cutoff- Female and children under 18 years old <14 ng/L; Male <21 ng/L: Negative Repeat testing should be performed if clinically indicated. Female and children under 18 years old 14-50 ng/L; Male 21-50 ng/L: Consistent with possible cardiac damage and possible increased clinical risk. Serial measurements may help to assess extent of myocardial damage. >50 ng/L: Consistent with cardiac damage, increased clinical risk and myocardial infarction. Serial measurements may help assess extent of myocardial damage. NOTE: Children less than 1 year old may have higher baseline troponin levels and results should be interpreted in conjunction with the overall clinical context. NOTE: Troponin I testing is performed using a different testing methodology at [facility] than at [facility]. Direct result comparisons should only be made within the same method. Performed By: #### 8 9577-1 #### JIMBO ANTHONY ([id number]) [facility] ([facility]) [address] [place] [address] Lymphocytes/100 WBC (Bld) 23.9 % Normal 13.0-44.0 [facility] Comment on above: Order Comment: Less than 99th percentile of normal range cutoff- Female and children under 18 years old <14 ng/L; Male <21 ng/L: Negative Repeat testing should be performed if clinically indicated. Female and children under 18 years old 14-50 ng/L; Male 21-50 ng/L: Consistent with possible cardiac damage and possible increased clinical risk. Serial measurements may help to assess extent of myocardial damage. >50 ng/L: Consistent with cardiac damage, increased clinical risk and myocardial infarction. Serial measurements may help assess extent of myocardial damage. NOTE: Children less than 1 year old may have higher baseline troponin levels and results should be interpreted in conjunction with the overall clinical context. NOTE: Troponin I testing is performed using a different testing methodology at [facility] than at [facility]. Direct result comparisons should only be made within the same method. Performed By: #### 8 9577-1 #### CHOI GABRIELLE ([id number]) [facility] ([facility]) [address] [place] [address] MCH (RBC) [Entitic mass] 29.2 pg Normal 26.0-34.0 [facility] Comment on above: Order Comment: Less than 99th percentile of normal range cutoff- Female and children under 18 years old <14 ng/L; Male <21 ng/L: Negative Repeat testing should be performed if clinically indicated. Female and children under 18 years old 14-50 ng/L; Male 21-50 ng/L: Consistent with possible cardiac damage and possible increased clinical risk. Serial measurements may help to assess extent of myocardial damage. >50 ng/L: Consistent with cardiac damage, increased clinical risk and myocardial infarction. Serial measurements may help assess extent of myocardial damage. NOTE: Children less than 1 year old may have higher baseline troponin levels and results should be interpreted in conjunction with the overall clinical context. NOTE: Troponin I testing is performed using a different testing methodology at [facility] than at [facility]. Direct result comparisons should only be made within the same method. Performed By: #### 8 9577-1 #### JIMBO ANTHONY ([id number]) [facility] ([facility]) [address] [place] [address] MCHC (RBC) [Mass/Vol] 32.8 g/dL Normal 32.0-36.0 [facility] Comment on above: Order Comment: Less than 99th percentile of normal range cutoff- Female and children under 18 years old <14 ng/L; Male <21 ng/L: Negative Repeat testing should be performed if clinically indicated. Female and children under 18 years old 14-50 ng/L; Male 21-50 ng/L: Consistent with possible cardiac damage and possible increased clinical risk. Serial measurements may help to assess extent of myocardial damage. >50 ng/L: Consistent with cardiac damage, increased clinical risk and myocardial infarction. Serial measurements may help assess extent of myocardial damage. NOTE: Children less than 1 year old may have higher baseline troponin levels and results should be interpreted in conjunction with the overall clinical context. NOTE: Troponin I testing is performed using a different testing methodology at [facility] than at [facility]. Direct result comparisons should only be made within the same method. Performed By: #### 8 9577-1 #### JIMBO ANTHONY ([id number]) [facility] ([facility]) [address] [place] [address] MCV (RBC) [Entitic vol] 89 fL Normal 80-100 [facility] Comment on above: Order Comment: Less than 99th percentile of normal range cutoff- Female and children under 18 years old <14 ng/L; Male <21 ng/L: Negative Repeat testing should be performed if clinically indicated. Female and children under 18 years old 14-50 ng/L; Male 21-50 ng/L: Consistent with possible cardiac damage and possible increased clinical risk. Serial measurements may help to assess extent of myocardial damage. >50 ng/L: Consistent with cardiac damage, increased clinical risk and myocardial infarction. Serial measurements may help assess extent of myocardial damage. NOTE: Children less than 1 year old may have higher baseline troponin levels and results should be interpreted in conjunction with the overall clinical context. NOTE: Troponin I testing is performed using a different testing methodology at [facility] than at [facility]. Direct result comparisons should only be made within the same method. Performed By: #### 8 9577-1 #### JIMBO ANTHONY ([id number]) [facility] ([facility]) [address] [place] [address] Monocytes (Bld) [#/Vol] 0.35 x10*3/uL Normal 0.10-1.00 [facility] Comment on above: Order Comment: Less than 99th percentile of normal range cutoff- Female and children under 18 years old <14 ng/L; Male <21 ng/L: Negative Repeat testing should be performed if clinically indicated. Female and children under 18 years old 14-50 ng/L; Male 21-50 ng/L: Consistent with possible cardiac damage and possible increased clinical risk. Serial measurements may help to assess extent of myocardial damage. >50 ng/L: Consistent with cardiac damage, increased clinical risk and myocardial infarction. Serial measurements may help assess extent of myocardial damage. NOTE: Children less than 1 year old may have higher baseline troponin levels and results should be interpreted in conjunction with the overall clinical context. NOTE: Troponin I testing is performed using a different testing methodology at [facility] than at [facility]. Direct result comparisons should only be made within the same method. Performed By: #### 8 9577-1 #### JIMBO ANTHONY ([id number]) [facility] ([facility]) [facility] [place] [address] Monocytes/100 WBC (Bld) 7.0 % Normal 2.0-10.0 [facility] Comment on above: Order Comment: Less than 99th percentile of normal range cutoff- Female and children under 18 years old <14 ng/L; Male <21 ng/L: Negative Repeat testing should be performed if clinically indicated. Female and children under 18 years old 14-50 ng/L; Male 21-50 ng/L: Consistent with possible cardiac damage and possible increased clinical risk. Serial measurements may help to assess extent of myocardial damage. >50 ng/L: Consistent with cardiac damage, increased clinical risk and myocardial infarction. Serial measurements may help assess extent of myocardial damage. NOTE: Children less than 1 year old may have higher baseline troponin levels and results should be interpreted in conjunction with the overall clinical context. NOTE: Troponin I testing is performed using a different testing methodology at [facility] than at [facility]. Direct result comparisons should only be made within the same method. Performed By: #### 8 9577-1 #### JIMBO ANTHONY ([id number]) [facility] ([facility]) [facility] [place] [address] Neutrophils (Bld) [#/Vol] 3.37 x10*3/uL Normal 1.20-7.70 [facility] Comment on above: Order Comment: Less than 99th percentile of normal range cutoff- Female and children under 18 years old <14 ng/L; Male <21 ng/L: Negative Repeat testing should be performed if clinically indicated. Female and children under 18 years old 14-50 ng/L; Male 21-50 ng/L: Consistent with possible cardiac damage and possible increased clinical risk. Serial measurements may help to assess extent of myocardial damage. >50 ng/L: Consistent with cardiac damage, increased clinical risk and myocardial infarction. Serial measurements may help assess extent of myocardial damage. NOTE: Children less than 1 year old may have higher baseline troponin levels and results should be interpreted in conjunction with the overall clinical context. NOTE: Troponin I testing is performed using a different testing methodology at [facility] than at [facility]. Direct result comparisons should only be made within the same method. Result Comment: Perc ent differential counts (%) should be interpreted in the context of the absolute cell counts (cells/uL). Performed By: #### 8 9577-1 #### JIMBO ANTHONY ([id number]) [facility] ([facility]) [facility] [place] [address] Neutrophils/100 WBC (Bld) 67.7 % Normal 40.0-80.0 [facility] Comment on above: Order Comment: Less than 99th percentile of normal range cutoff- Female and children under 18 years old <14 ng/L; Male <21 ng/L: Negative Repeat testing should be performed if clinically indicated. Female and children under 18 years old 14-50 ng/L; Male 21-50 ng/L: Consistent with possible cardiac damage and possible increased clinical risk. Serial measurements may help to assess extent of myocardial damage. >50 ng/L: Consistent with cardiac damage, increased clinical risk and myocardial infarction. Serial measurements may help assess extent of myocardial damage. NOTE: Children less than 1 year old may have higher baseline troponin levels and results should be interpreted in conjunction with the overall clinical context. NOTE: Troponin I testing is performed using a different testing methodology at [facility] than at [facility]. Direct result comparisons should only be made within the same method. Performed By: #### 8 9577-1 #### JIMBO ANTHONY ([id number]) [facility] ([facility]) [facility] [place] [address] Nucleated RBC/100 WBC (Bld) [Ratio] 0.0 /100 WBCs Normal 0.0-0.0 [facility] Comment on above: Order Comment: Less than 99th percentile of normal range cutoff- Female and children under 18 years old <14 ng/L; Male <21 ng/L: Negative Repeat testing should be performed if clinically indicated. Female and children under 18 years old 14-50 ng/L; Male 21-50 ng/L: Consistent with possible cardiac damage and possible increased clinical risk. Serial measurements may help to assess extent of myocardial damage. >50 ng/L: Consistent with cardiac damage, increased clinical risk and myocardial infarction. Serial measurements may help assess extent of myocardial damage. NOTE: Children less than 1 year old may have higher baseline troponin levels and results should be interpreted in conjunction with the overall clinical context. NOTE: Troponin I testing is performed using a different testing methodology at [facility] than at [facility]. Direct result comparisons should only be made within the same method. Performed By: #### 8 9577-1 #### JIMBO ANTHONY ([id number]) [facility] ([facility]) [address] [place] [address] Platelets (Bld) [#/Vol] 89 x10*3/uL Low 150-450 [facility] Comment on above: Order Comment: Less than 99th percentile of normal range cutoff- Female and children under 18 years old <14 ng/L; Male <21 ng/L: Negative Repeat testing should be performed if clinically indicated. Female and children under 18 years old 14-50 ng/L; Male 21-50 ng/L: Consistent with possible cardiac damage and possible increased clinical risk. Serial measurements may help to assess extent of myocardial damage. >50 ng/L: Consistent with cardiac damage, increased clinical risk and myocardial infarction. Serial measurements may help assess extent of myocardial damage. NOTE: Children less than 1 year old may have higher baseline troponin levels and results should be interpreted in conjunction with the overall clinical context. NOTE: Troponin I testing is performed using a different testing methodology at [facility] than at other [facility]. Direct result comparisons should only be made within the same method. Result Comment: Plat elet count verified by smear review. no clots or plt clumps seen Performed By: #### 8 9577-1 #### JIMBO ANTHONY ([id number]) [facility] ([facility]) [facility] [place] [address] RBC (Bld) [#/Vol] 3.87 x10*6/uL Low 4.00-5.20 [facility] Comment on above: Order Comment: Less than 99th percentile of normal range cutoff- Female and children under 18 years old <14 ng/L; Male <21 ng/L: Negative Repeat testing should be performed if clinically indicated. Female and children under 18 years old 14-50 ng/L; Male 21-50 ng/L: Consistent with possible cardiac damage and possible increased clinical risk. Serial measurements may help to assess extent of myocardial damage. >50 ng/L: Consistent with cardiac damage, increased clinical risk and myocardial infarction. Serial measurements may help assess extent of myocardial damage. NOTE: Children less than 1 year old may have higher baseline troponin levels and results should be interpreted in conjunction with the overall clinical context. NOTE: Troponin I testing is performed using a different testing methodology at [facility] than at other [facility]. Direct result comparisons should only be made within the same method. Performed By: #### 8 9577-1 #### JIMBO ANTHONY ([id number]) [facility] ([facility]) [facility] [place] [address] WBC (Bld) [#/Vol] 5.0 x10*3/uL Normal 4.4-11.3 [facility] Comment on above: Order Comment: Less than 99th percentile of normal range cutoff- Female and children under 18 years old <14 ng/L; Male <21 ng/L: Negative Repeat testing should be performed if clinically indicated. Female and children under 18 years old 14-50 ng/L; Male 21-50 ng/L: Consistent with possible cardiac damage and possible increased clinical risk. Serial measurements may help to assess extent of myocardial damage. >50 ng/L: Consistent with cardiac damage, increased clinical risk and myocardial infarction. Serial measurements may help assess extent of myocardial damage. NOTE: Children less than 1 year old may have higher baseline troponin levels and results should be interpreted in conjunction with the overall clinical context. NOTE: Troponin I testing is performed using a different testing methodology at [facility] than at [facility]. Direct result comparisons should only be made within the same method. Performed By: #### 8 9577-1 #### JIMBO ANTHONY ([id number]) [facility] ([facility]) [address] [place] [address] CT HEAD WO IV CONTRASTon CT HEAD WO IV CONTRAST Interpreted By: Glen Crowley, STUDY: CT HEAD WO IV CONTRAST; 11/25/2023 2:22 pm INDICATION: Signs/Symptoms:headac he. COMPARISON: 10/14/2023 ACCESSION NUMBER(S): [id number] ORDERING CLINICIAN: MARTY PIERRE TECHNIQUE: Contiguous axial CT images were obtained through the head at 3 mm slice thickness without contrast administration. Mm FINDINGS: INTRACRANIAL: The ventricles, sulci and basal cisterns are within normal limits for size and configuration. The colon-white differentiation is intact. There is no mass effect or midline shift. There is no extraaxial fluid collection. There is no intracranial hemorrhage. The calvarium is unremarkable. EXTRACRANIAL: Visualized paranasal sinuses and mastoids are clear. IMPRESSION: No evidence of acute cortical infarct or intracranial hemorrhage. MACRO: None Signed by: Glen Crowley 11/25/2023 2:33 PM Dictation workstation: [id number] Normal [facility] Comprehensive metabolic 2000 panelon 11-25-2023 Albumin BCP dye [Mass/Vol] 3.0 g/dL Low 3.4-5.0 [facility] Comment on above: Performed By: #### 8 9577-1 #### JIMBO ANTHONY ([id number]) [facility] ([facility]) [address] [place] [address] ALP [Catalytic activity/Vol] 111 U/L Normal 33-136 [facility] Comment on above: Performed By: #### 8 9577-1 #### JIMBO ANTHONY ([id number]) [facility] ([facility]) [address] [place] [address] ALT With P-5'-P [Catalytic activity/Vol] 11 U/L Normal 7-45 [facility] Comment on above: Result Comment: Stephany ents treated with Sulfasalazine may generate falsely decreased results for ALT. Performed By: #### 8 9577-1 #### JIMBO ANTHONY ([id number]) [facility] ([facility]) [address] [place] [address] Anion gap [Moles/Vol] 10 mmol/L Normal 10-20 [facility] Comment on above: Performed By: #### 8 9577-1 #### JIMBO ANTHONY ([id number]) [facility] ([facility]) [address] [place] [address] AST With P-5'-P [Catalytic activity/Vol] 16 U/L Normal 9-39 [facility] Comment on above: Performed By: #### 8 9577-1 #### JIMBO ANTHONY ([id number]) [facility] ([facility]) [address] [place] [address] Bilirubin [Mass/Vol] 0.4 mg/dL Normal 0.0-1.2 [facility] Comment on above: Performed By: #### 8 9577-1 #### JIMBO ANTHONY ([id number]) [facility] ([facility]) [address] [place] [address] Calcium [Mass/Vol] 8.3 mg/dL Low 8.6-10.3 [facility] Comment on above: Performed By: #### 8 9577-1 #### JIMBO ANTHONY ([id number]) [facility] ([facility]) [address] [place] [address] Chloride [Moles/Vol] 100 mmol/L Normal 98-107 [facility] Comment on above: Performed By: #### 8 9577-1 #### JIMBO ANTHONY ([id number]) [facility] ([facility]) [address] [place] [address] CO2 [Moles/Vol] 28 mmol/L Normal 21-32 [facility] Comment on above: Performed By: #### 8 9577-1 #### JIMBO ANTHONY ([id number]) [facility] ([facility]) [address] [place] [address] Creatinine [Mass/Vol] 1.17 mg/dL High 0.50-1.05 [facility] Comment on above: Performed By: #### 8 9577-1 #### JIMBO ANTHONY ([id number]) [facility] ([facility]) [address] [place] [address]34 Glomerular filtration rate/1.73 sq M.predicted 51 mL/min/1.73m*2 Low >60 [facility] Comment on above: Result Comment: Calc ulations of estimated GFR are performed using the 2020 CKD-EPI Study Refit equation without the race variable for the IDMS-Traceable creatinine methods. https://jasn.asnjournals.org/content/early//ASN.34704 71224 Performed By: #### 8 9577-1 #### JIMBO ANTHONY ([id number]) [facility] ([facility]) [address] [place] [address] Glucose [Mass/Vol] 273 mg/dL High 74-99 [facility] Comment on above: Performed By: #### 8 9577-1 #### JIMBO ANTHONY ([id number]) [facility] ([facility]) [address] [place] [address]703 Potassium [Moles/Vol] 4.3 mmol/L Normal 3.5-5.3 [facility] Comment on above: Performed By: #### 8 9577-1 #### JIMBO ANTHONY ([id number]) [facility] ([facility]) [address] [place] [address] Protein [Mass/Vol] 6.6 g/dL Normal 6.4-8.2 [facility] Comment on above: Performed By: #### 8 9577-1 #### JIMBO ANTHONY ([id number]) [facility] ([facility]) [address] [place] [address] Sodium [Moles/Vol] 134 mmol/L Low 136-145 [facility] Comment on above: Performed By: #### 8 9577-1 #### JIMBO ANTHONY ([id number]) [facility] ([facility]) [address] [place] [address] Urea nitrogen [Mass/Vol] 14 mg/dL Normal 6-23 [facility] Comment on above: Performed By: #### 8 9577-1 #### JIMBO ANTHONY ([id number]) [facility] ([facility]) [facility] [place] [address] Lactateon 11-25-2023 Lactate [Moles/Vol] 1.5 mmol/L Normal 0.4-2.0 [facility] Comment on above: Order Comment: Less than 99th percentile of normal range cutoff- Female and children under 18 years old <14 ng/L; Male <21 ng/L: Negative Repeat testing should be performed if clinically indicated. Female and children under 18 years old 14-50 ng/L; Male 21-50 ng/L: Consistent with possible cardiac damage and possible increased clinical risk. Serial measurements may help to assess extent of myocardial damage. >50 ng/L: Consistent with cardiac damage, increased clinical risk and myocardial infarction. Serial measurements may help assess extent of myocardial damage. NOTE: Children less than 1 year old may have higher baseline troponin levels and results should be interpreted in conjunction with the overall clinical context. NOTE: Troponin I testing is performed using a different testing methodology at [facility] than at other [facility]. Direct result comparisons should only be made within the same method. Performed By: #### 8 9577-1 #### JIMBO ANTHONY ([id number]) [facility] ([facility]) [address] [place] [address] RBC shape Nom (Bld)on 2023 Hypochromia Ql (Bld) Mild Normal [facility] Comment on above: Order Comment: Less than 99th percentile of normal range cutoff- Female and children under 18 years old <14 ng/L; Male <21 ng/L: Negative Repeat testing should be performed if clinically indicated. Female and children under 18 years old 14-50 ng/L; Male 21-50 ng/L: Consistent with possible cardiac damage and possible increased clinical risk. Serial measurements may help to assess extent of myocardial damage. >50 ng/L: Consistent with cardiac damage, increased clinical risk and myocardial infarction. Serial measurements may help assess extent of myocardial damage. NOTE: Children less than 1 year old may have higher baseline troponin levels and results should be interpreted in conjunction with the overall clinical context. NOTE: Troponin I testing is performed using a different testing methodology at [facility] than at [facility]. Direct result comparisons should only be made within the same method. Performed By: #### 8 9577-1 #### JIMBO ANTHONY ([id number]) [facility] ([facility]) [address] [place] [address] Polychromasia LM Ql (Bld) Mild [facility] Comment on above: Order Comment: Less than 99th percentile of normal range cutoff- Female and children under 18 years old <14 ng/L; Male <21 ng/L: Negative Repeat testing should be performed if clinically indicated. Female and children under 18 years old 14-50 ng/L; Male 21-50 ng/L: Consistent with possible cardiac damage and possible increased clinical risk. Serial measurements may help to assess extent of myocardial damage. >50 ng/L: Consistent with cardiac damage, increased clinical risk and myocardial infarction. Serial measurements may help assess extent of myocardial damage. NOTE: Children less than 1 year old may have higher baseline troponin levels and results should be interpreted in conjunction with the overall clinical context. NOTE: Troponin I testing is performed using a different testing methodology at [facility] than at [facility]. Direct result comparisons should only be made within the same method. Performed By: #### 8 9577-1 #### JIMBO ANTHONY ([id number]) [facility] ([facility]) [address] [place] [address] RBC morphology finding Nom (Bld) See Below [facility] Comment on above: Order Comment: Less than 99th percentile of normal range cutoff- Female and children under 18 years old <14 ng/L; Male <21 ng/L: Negative Repeat testing should be performed if clinically indicated. Female and children under 18 years old 14-50 ng/L; Male 21-50 ng/L: Consistent with possible cardiac damage and possible increased clinical risk. Serial measurements may help to assess extent of myocardial damage. >50 ng/L: Consistent with cardiac damage, increased clinical risk and myocardial infarction. Serial measurements may help assess extent of myocardial damage. NOTE: Children less than 1 year old may have higher baseline troponin levels and results should be interpreted in conjunction with the overall clinical context. NOTE: Troponin I testing is performed using a different testing methodology at [facility] than [facility]. Direct result comparisons should only be made within the same method. Performed By: #### 8 9577-1 #### JIMBO ANTHONY ([id number]) [facility] ([facility]) [address] [place] [address] SARS coronavirus 2 RNAon SARS-CoV-2 (COVID-19) RNA JACKIE+probe Ql (Resp) Not detected Normal Not Detected [facility] Comment on above: Order Comment: Less than 99th percentile of normal range cutoff- Female and children under 18 years old <14 ng/L; Male <21 ng/L: Negative Repeat testing should be performed if clinically indicated. Female and children under 18 years old 14-50 ng/L; Male 21-50 ng/L: Consistent with possible cardiac damage and possible increased clinical risk. Serial measurements may help to assess extent of myocardial damage. >50 ng/L: Consistent with cardiac damage, increased clinical risk and myocardial infarction. Serial measurements may help assess extent of myocardial damage. NOTE: Children less than 1 year old may have higher baseline troponin levels and results should be interpreted in conjunction with the overall clinical context. NOTE: Troponin I testing is performed using a different testing methodology at [facility] than at [facility]. Direct result comparisons should only be made within the same method. Performed By: #### 8 9577-1 #### JIMBO ANTHONY ([id number]) [facility] ([facility]) [address] [place], [place] [id number] Urinalysis complete W Reflex Culture panel (U)on 11-25-2023 Appearance (U) Turbid Normal Clear [facility] Comment on above: Performed By: #### 8 9577-1 #### JIMBO ANTHONY ([id number]) [facility] ([facility]) [address] [place] [address] 16836 Bacteria Auto (Urine sed) [#/Area] 1+ /HPF Abnormal NONE SEEN [facility] Comment on above: Performed By: #### 8 9577-1 #### JIMBO ANTHONY ([id number]) [facility] ([facility]) [address] [place], [place] [address] Bilirubin (U) [Mass/Vol] Negative Normal NEGATIVE [facility] Comment on above: Performed By: #### 8 9577-1 #### JIMBO ANTHONY ([id number]) [facility] ([facility]) [address] [place] [address] Color (U) Yellow Normal Light-Yellow , Yellow, Dark-Yellow [facility] Comment on above: Performed By: #### 8 9577-1 #### JIMBO ANTHONY ([id number]) [facility] ([facility]) [address] [place] [address] Epithelial cells.squamous Auto (Urine sed) [#/Area] 26-50 (1+) Normal Reference range not established. [facility] Comment on above: Performed By: #### 8 9577-1 #### JIMBO ANTHONY ([id number]) [facility] ([facility]) [address] [place], [place] [address] Glucose Auto test strip (U) [Mass/Vol] 50 (TRACE) Abnormal Normal [facility] Comment on above: Performed By: #### 8 9577-1 #### JIMBO ANTHONY ([id number]) [facility] ([facility]) [address] [place] [address]857 Hyaline casts Auto (Urine sed) [#/Area] OCCASIONAL Abnormal NONE [facility] Comment on above: Performed By: #### 8 9577-1 #### JIMBO ANTHONY ([id number]) [facility] ([facility]) [address] [place] [address] 57088 Ketones (U) [Mass/Vol] Negative Normal [facility]GATIVE [facility] Comment on above: Performed By: #### 8 9577-1 #### JIMBO ANTHONY ([id number]) [facility] ([facility]) [address] [place] [address]384 Leukocyte esterase Auto test strip Ql (U) Negative Normal NEGATIVE [facility] Comment on above: Performed By: #### 8 9577-1 #### JIMBO ANTHONY ([id number]) [facility] ([facility]) [address] [place] [address] 24139 Nitrite Auto test strip Ql (U) Negative Normal NEGATIVE [facility] Comment on above: Performed By: #### 8 9577-1 #### JIMBO ANTHONY ([id number]) [facility] ([facility]) [address] [place] [address] pH (U) 6.5 [pH] Normal 5.0, 5.5, 6.0, 6.5, 7.0, 7.5, 8.0 [facility] Comment on above: Performed By: #### 8 9577-1 #### JIMBO ANTHONY ([id number]) [facility] ([facility]) [address] [place] [address] 83096 Protein (U) [Mass/Vol] 300 (3+) Abnormal NEGAT ABDELRAHMAN, 10 (TRACE), 20 (TRACE) [facility] Comment on above: Performed By: #### 8 9577-1 #### JIMBO ANTHONY ([id number]) [facility] ([facility]) [address] [place] [address] 90589 RBC (U) [#/Vol] 0.5 (2+) Abnormal NEGATIVE [facility] Comment on above: Performed By: #### 8 9577-1 #### JIMBO ANTHONY ([id number]) [facility] ([facility]) [address] [place] [address] 44915 RBC Auto (Urine sed) [#/Area] >20 Abnormal NONE, 1-2, 3-5 [facility] Comment on above: Performed By: #### 8 9577-1 #### JIMBO ANTHONY ([id number]) [facility] ([facility]) [address] [place] [address] Specific gravity (U) [Rel density] 1.024 Normal 1.005-1.035 [facility] Comment on above: Performed By: #### 8 9577-1 #### JIMBO ANTHONY ([id number]) [facility] ([facility]) [address] [place] [address] Urobilinogen (U) [Mass/Vol] Normal Normal Normal [facility] Comment on above: Performed By: #### 8 9577-1 #### JIMBO ANTHONY ([id number]) [facility] ([facility]) [address] [place] [address] WBC Auto (Urine sed) [#/Area] 1-5 Normal 1-5, NONE [facility] Comment on above: Performed By: #### 8 9577-1 #### JIMBO ANTHONY ([id number]) [facility] ([facility]) [address] [place] [address] XR CHEST 1 VIEWon 11-25-2023 XR CHEST 1 VIEW Interpreted By: Glen Crowley, STUDY: XR CHEST 1 VIEW 11/25/2023 2:20 pm INDICATION: Signs/Symptoms:cough COMPARISON: 10/14/2023 ACCESSION NUMBER(S): [id number] ORDERING CLINICIAN: MARTY PIERRE TECHNIQUE: A single AP portable radiograph of the chest was obtained. FINDINGS: Right basilar airspace consolidation is seen and may represent small pleural effusion, atelectasis and/or pneumonia. No pneumothorax is identified. The cardiac silhouette is within normal limits for size. IMPRESSION: Right basilar airspace consolidation, as above. Clinical correlation and continued follow-up until clearing is recommended. MACRO: None. Signed by: Glen Crowley 11/25/2023 2:32 PM Dictation workstation: [id number] [facility] CBC W Auto Differential pane l (Bld)on 10-14-2023 Basophils (Bld) [#/Vol] 0.02 x10*3/uL Normal 0.00-0.10 [facility] Comment on above: Performed By: #### 1 9123-9 #### JIMBO ANTHONY ([id number]) [facility] ([facility]) [address] [place] [address] 23000 Basophils/100 WBC (Bld) 0.4 % Normal 0.0-2.0 [facility] Comment on above: Performed By: #### 1 9123-9 #### JIMBO ANTHONY ([id number]) [facility] ([facility]) [address] [place] [address] 19668 Eosinophils (Bld) [#/Vol] 0.06 x10*3/uL Normal 0.00-0.70 [facility] Comment on above: Performed By: #### 1 9123-9 #### JIMBO ANTHONY ([id number]) [facility] ([facility]) [address] [place] [address] 22520 Eosinophils/100 WBC (Bld) 1.1 % Normal 0.0-6.0 [facility] Comment on above: Performed By: #### 1 9123-9 #### JIMBO ANTHONY ([id number]) [facility] ([facility]) [address] [place] [address] 59670 Erythrocyte distribution width (RBC) [Ratio] 14.4 % Normal 11.5-14.5 [facility] Comment on above: Performed By: #### 1 9123-9 #### JIMBO ANTHONY ([id number]) [facility] ([facility]) [address] [place] [address] 00143 Hematocrit (Bld) [Volume fraction] 36.1 % Normal 36.0-46.0 [facility] Comment on above: Performed By: #### 1 9123-9 #### JIMBO ANTHONY ([id number]) [facility] ([facility]) [address] [place] [address] 68383 Hemoglobin (Bld) [Mass/Vol] 11.6 g/dL Low 12.0-16.0 [facility] Comment on above: Performed By: #### 1 9123-9 #### JIMBO ANTHONY ([id number]) [facility] ([facility]) [address] [place] [address] 07005 Immature granulocytes (Bld) [#/Vol] 0.04 x10*3/uL Normal 0.00-0.70 [facility] Comment on above: Performed By: #### 1 9123-9 #### JIMBO ANTHONY ([id number]) [facility] ([facility]) [address] [place] [address] 51103 Immature granulocytes/100 WBC (Bld) 0.7 % Normal 0.0-0.9 [facility] Comment on above: Result Comment: Mira ture Granulocyte Count (IG) includes promyelocytes, myelocytes and metamyelocytes but does not include bands. Percent differential counts (%) should be interpreted in the context of the absolute cell counts (cells/UL). Performed By: #### 1 9123-9 #### JIMBO ANTHONY ([id number]) [facility] ([facility]) [address] [place] [address] 03482 Lymphocytes (Bld) [#/Vol] 1.50 x10*3/uL Normal 1.20-4.80 [facility] Comment on above: Performed By: #### 1 9123-9 #### JIMBO ANTHONY ([id number]) [facility] ([facility]) [address] [place] [address] 37848 Lymphocytes/100 WBC (Bld) 26.3 % Normal 13.0-44.0 [facility] Comment on above: Performed By: #### 1 9123-9 #### JIMBO ANTHONY ([id number]) [facility] ([facility]) [address] [place] [address] 41083 MCH (RBC) [Entitic mass] 28.4 pg Normal 26.0-34.0 [facility] Comment on above: Performed By: #### 1 9123-9 #### JIMBO ANTHONY ([id number]) [facility] ([facility]) [address] [place] [address] 14890 MCHC (RBC) [Mass/Vol] 32.1 g/dL Normal 32.0-36.0 [facility] Comment on above: Performed By: #### 1 9123-9 #### JIMBO ANTHONY ([id number]) [facility] ([facility]) [address] [place] [address] 16564 MCV (RBC) [Entitic vol] 89 fL Normal 80-100 [facility] Comment on above: Performed By: #### 1 9123-9 #### JIMBO ANTHONY ([id number]) [facility] ([facility]) [address] [place] [address] 48691 Monocytes (Bld) [#/Vol] 0.37 x10*3/uL Normal 0.10-1.00 [facility] Comment on above: Performed By: #### 1 9123-9 #### JIMBO ANTHONY ([id number]) [facility] ([facility]) [address] [place] [address] 91972 Monocytes/100 WBC (Bld) 6.5 % Normal 2.0-10.0 [facility] Comment on above: Performed By: #### 1 9123-9 #### JIMBO ANTHONY ([id number]) [facility] ([facility]) [address] [place] [address] 69767 Neutrophils (Bld) [#/Vol] 3.71 x10*3/uL Normal 1.20-7.70 [facility] Comment on above: Result Comment: Perc ent differential counts (%) should be interpreted in the context of the absolute cell counts (cells/uL). Performed By: #### 1 9123-9 #### JIMBO ANTHONY ([id number]) [facility] ([facility]) [address] [place] [address] 94060 Neutrophils/100 WBC (Bld) 65.0 % Normal 40.0-80.0 [facility] Comment on above: Performed By: #### 1 9123-9 #### JIMBO ANTHONY ([id number]) [facility] ([facility]) [address] [place] [address] 15751 Nucleated RBC/100 WBC (Bld) [Ratio] 0.0 /100 WBCs Normal 0.0-0.0 [facility] Comment on above: Performed By: #### 1 9123-9 #### JIMBO ANTHONY ([id number]) [facility] ([facility]) [address] [place] [address] 56888 Platelets (Bld) [#/Vol] 92 x10*3/uL Low 150-450 [facility] Comment on above: Result Comment: Plat elet count verified by smear review. Performed By: #### 1 9123-9 #### JIMBO ANTHONY ([id number]) [facility] ([facility]) [facility] [place] [address] RBC (Bld) [#/Vol] 4.08 x10*6/uL Normal 4.00-5.20 [facility] Comment on above: Performed By: #### 1 9123-9 #### JIMBO ANTHONY ([id number]) [facility] ([facility]) [address] [place] [address] WBC (Bld) [#/Vol] 5.7 x10*3/uL Normal 4.4-11.3 [facility] Comment on above: Performed By: #### 1 9123-9 #### JIMBO ANTHONY ([id number]) [facility] ([facility]) [address] [place] [address] CT CERVICAL SPINE WO IV CONT [facility] 10-14-2023 CT CERVICAL SPINE WO IV CONTRAST Interpreted By: Ronni Pope, STUDY: CT CERVICAL SPINE WO IV CONTRAST; 10/14/2023 2:34 pm INDICATION: Signs/Symptoms:head injury; COMPARISON: 04/01/2022 ACCESSION NUMBER(S): [id number] ORDERING CLINICIAN: BALBIR TAVARES TECHNIQUE: Contiguous axial images were acquired from the skull base to the lung apices. Coronal and sagittal reformatted images were obtained. All CT examinations are performed with 1 or more of the following dose reduction techniques: Automated exposure control, adjustment of mA and/or kv according to patient's size, or use of iterative reconstruction techniques. FINDINGS: There is straightening of the normal cervical lordosis. No acute fracture or spondylolisthesis is identified. 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 Prominent hypertrophic facet degenerative changes on the right at C3-4. The occipital condyles, arch of C1, and the odontoid processes are intact. The atlantoaxial relationship is well maintained. There is moderate disc space narrowing at C5-6 with diffuse disc bulging and endplate osteophyte formation. No evidence for bony spinal canal stenosis. Moderate-severe right neural foramina stenosis at C3-4. The visualized lung apices are unremarkable. IMPRESSION: 1. No acute fracture or spondylolisthesis. 2. Chronic degenerative changes as described in the body of the report, not significantly changed from the prior study. Signed by: Ronni Pope 10/14/2023 3:02 PM Dictation workstation: [id number] [facility] CT HEAD WO IV CONTRASTon CT HEAD WO IV CONTRAST Interpreted By: Ronni Pope, STUDY: BALBIR TAVARES; 10/14/2023 2:34 pm INDICATION: Persistent atypical headache, syncope COMPARISON: 10/11/2023 ACCESSION NUMBER(S): [id number] ORDERING CLINICIAN: BALBIR TAVARES TECHNIQUE: Contiguous axial images were acquired from the vertex through the posterior fossa without IV contrast. All CT examinations are performed with 1 or more of the following dose reduction techniques: Automated exposure control, adjustment of mA and/or kv according to patient's size, or use of iterative reconstruction techniques. FINDINGS: No focal mass effect or midline shift is identified. The ventricles and sulci are symmetric and appropriate for the patient's age. The haley white matter differentiation is preserved. No acute intracranial hemorrhage is seen. No intra-axial or extra-axial fluid collection is seen. The visualized paranasal sinuses and mastoid air cells are clear. IMPRESSION: No significant interval change since the prior study. No CT evidence for acute intracranial pathology. Signed by: Ronni Pope 10/14/2023 3:22 PM Dictation workstation: [id number] [facility] Comprehensive metabolic 2000 panelon 10-14-2023 Albumin BCP dye [Mass/Vol] 2.9 g/dL Low 3.4-5.0 [facility] Comment on above: Performed By: #### 1 9123-9 #### JIMBO ANTHONY ([id number]) [facility] ([facility]) [address] [place] [address] ALP [Catalytic activity/Vol] 121 U/L Normal 33-136 [facility] Comment on above: Performed By: #### 1 9123-9 #### JIMBO ANTHONY ([id number]) [facility] ([facility]) [address] [place] [address] ALT With P-5'-P [Catalytic activity/Vol] 10 U/L Normal 7-45 [facility] Comment on above: Result Comment: Stephany ents treated with Sulfasalazine may generate falsely decreased results for ALT. Performed By: #### 1 9123-9 #### JIMBO ANTHONY ([id number]) [facility] ([facility]) [address] [place] [address] Anion gap [Moles/Vol] 10 mmol/L Normal 10-20 [facility] Comment on above: Performed By: #### 1 9123-9 #### JIMBO ANTHONY ([id number]) [facility] ([facility]) [address] [place] [address] 61431 AST With P-5'-P [Catalytic activity/Vol] 17 U/L Normal 9-39 [facility] Comment on above: Performed By: #### 1 9123-9 #### JIMBO ANTHONY ([id number]) [facility] ([facility]) [address] [place] [address] Bilirubin [Mass/Vol] 0.3 mg/dL Normal 0.0-1.2 [facility] Comment on above: Performed By: #### 1 9123-9 #### JIMBO ANTHONY ([id number]) [facility] ([facility]) [address] [place] [address] Calcium [Mass/Vol] 7.9 mg/dL Low 8.6-10.3 [facility] Comment on above: Performed By: #### 1 9123-9 #### JIMBO ANTHONY ([id number]) [facility] ([facility]) [address] [place] [address] 18314 Chloride [Moles/Vol] 103 mmol/L Normal 98-107 [facility] Comment on above: Performed By: #### 1 9123-9 #### JIMBO ANTHONY ([id number]) [facility] ([facility]) [address] [place] [address], [place] [address] CO2 [Moles/Vol] 26 mmol/L Normal 21-32 [facility] Comment on above: Performed By: #### 1 9123-9 #### JIMBO ANTHONY ([id number]) [facility] ([facility]) [address] [place] [address] 27332 Creatinine [Mass/Vol] 1.28 mg/dL High 0.50-1.05 [facility] Comment on above: Performed By: #### 1 9123-9 #### JIMBO ANTHONY ([id number]) [facility] ([facility]) [address] [place] [address] 84417 Glomerular filtration rate/1.73 sq M.predicted 46 mL/min/1.73m*2 Low >60 [facility] Comment on above: Result Comment: Calc ulations of estimated GFR are performed using the 2020 CKD-EPI Study Refit equation without the race variable for the IDMS-Traceable creatinine methods. https://jasn.asnjournals.org/content/early//ASN.47427 21651 Performed By: #### 1 9123-9 #### JIMBO ANTHONY ([id number]) [facility] ([facility]) [address] [place] [address] 08583 Glucose [Mass/Vol] 264 mg/dL High 74-99 [facility] Comment on above: Performed By: #### 1 9123-9 #### JIMBO ANTHONY ([id number]) [facility] ([facility]) [address] [place] [address] 70202 Potassium [Moles/Vol] 4.0 mmol/L Normal 3.5-5.3 [facility] Comment on above: Performed By: #### 1 9123-9 #### JIMBO ANTHONY ([id number]) [facility] ([facility]) [address] [place] [address] 91857 Protein [Mass/Vol] 6.1 g/dL Low 6.4-8.2 [facility] Comment on above: Performed By: #### 1 9123-9 #### JIMBO ANTHONY ([id number]) [facility] ([facility]) [address] [place] [address] Sodium [Moles/Vol] 135 mmol/L Low 136-145 [facility] Comment on above: Performed By: #### 1 9123-9 #### JIMBO RIVASMARTHA ([id number]) [facility] ([facility]) [address] [place] [address] Urea nitrogen [Mass/Vol] 13 mg/dL Normal 6-23 [facility] Comment on above: Performed By: #### 1 9123-9 #### JIMBO RIVASMARTHA ([id number]) [facility] ([facility]) [facility] [place] [address] ECG 12-LEADon 10-14-2023 ECG 12-LEAD Ventricular Rate 73 Atrial Rate 73 P-R Interval 154 QRS Duration 64 Q-T Interval 350 QTC Calculation(Bazett) 385 P Alpine 68 R Alpine 12 T Alpine 77 QRS Count 12 Q Onset 224 P Onset 147 P Offset 205 T Offset 399 QTC Fredericia 373 Diagnosis Normal sinus rhythm Low voltage QRS Nonspecific T wave abnormality Abnormal ECG When compared with ECG of 11-OCT-2023 15:14, (unconfirmed) No significant change was found See ED provider note for full interpretation and clinical correlation Confirmed by Marty Feliz ([id number]) on 10/22/2023 6:41:26 PM Normal [facility] Troponin I.cardiac panelon 0 10-14-2023 Tropinin I.cardiac panel High sensitivity method 7 ng/L Normal 0-13 [facility] Comment on above: Order Comment: Less than 99th percentile of normal range cutoff-Female and children under 18 years old <14 ng/L; Male <21 ng/L: NegativeRepeat testing should be performed if clinically indicated.Female and children under 18 years old 14-50 ng/L; Male 21-50 ng/L:Consistent with possible cardiac damage and possible increased clinicalrisk. Serial measurements may help to assess extent of myocardial damage.>50 ng/L: Consistent with cardiac damage, increased clinical risk andmyocardial infarction. Serial measurements may help assess extent ofmyocardial damage.NOTE: Children less than 1 year old may have higher baseline troponinlevels and results should be interpreted in conjunction with the overallclinical context.NOTE: Troponin I testing is performed using a differenttesting methodology at [facility] than at [facility]. Direct result comparisons should onlybe made within the same method. Performed By: #### 1 9123-9 #### JIMBO ANTHONY ([id number]) [facility] ([facility]) [address] [place] [address] Urinalysis complete W Reflex Culture panel (U)on 10-14-2023 Appearance (U) Clear Normal Clear [facility] Comment on above: Performed By: #### 1 9123-9 #### JIMBO ANTHONY ([id number]) [facility] ([facility]) [address] [place] [address] Bacteria Auto (Urine sed) [#/Area] 1+ /HPF Abnormal NONE SEEN [facility] Comment on above: Performed By: #### 1 9123-9 #### JIMBO ANTHONY ([id number]) [facility] ([facility]) [address] [place] [address] Bilirubin (U) [Mass/Vol] Negative Normal NEGATIVE [facility] Comment on above: Performed By: #### 1 9123-9 #### JIMBO ANTHONY ([id number]) [facility] ([facility]) [address] [place], [place] [address] Color (U) Colorless Normal Light-Yellow , Yellow, Dark-Yellow [facility] Comment on above: Performed By: #### 1 9123-9 #### JIMBO ANTHONY ([id number]) [facility] ([facility]) [address] [place], [place] [address] Epithelial cells.squamous Auto (Urine sed) [#/Area] 1-9 (SPARSE) Normal Reference range not established. [facility] Comment on above: Performed By: #### 1 9123-9 #### JIMBO ANTHONY ([id number]) [facility] ([facility]) [address] [place] [address] 91955 Glucose Auto test strip (U) [Mass/Vol] Normal Normal Normal [facility] Comment on above: Performed By: #### 1 9123-9 #### JIMBO ANTHONY ([id number]) [facility] ([facility]) [address] [place] [address] 05470 Ketones (U) [Mass/Vol] Negative Normal NEGATIVE Un [facility] Comment on above: Performed By: #### 1 9123-9 #### JIMBO ANTHONY ([id number]) [facility] ([facility]) [address] [place] [address] 49372 Leukocyte esterase Auto test strip Ql (U) Negative Normal NEGATIVE [facility] Comment on above: Performed By: #### 1 9123-9 #### JIMBO ANTHONY ([id number]) [facility] ([facility]) [address] [place] [address] 44704 Mucus Auto (Urine sed) [#/Area] FEW Normal Reference range not established. [facility] Comment on above: Performed By: #### 1 9123-9 #### JIMBO ANTHONY ([id number]) [facility] ([facility]) [address] [place] [address] 33106 Nitrite Auto test strip Ql (U) Negative Normal NEGATIVE [facility] Comment on above: Performed By: #### 1 9123-9 #### JIMBO ANTHONY ([id number]) [facility] ([facility]) [address] [place] [address] 33412 pH (U) 6.5 [pH] Normal 5.0, 5.5, 6.0, 6.5, 7.0, 7.5, 8.0 [facility] Comment on above: Performed By: #### 1 9123-9 #### JIMBO ANTHONY ([id number]) [facility] ([facility]) [address] [place] [address] 97271 Protein (U) [Mass/Vol] Negative Normal NEGAT ABDELRAHMAN, 10 (TRACE), 20 (TRACE) [facility] Comment on above: Performed By: #### 1 9123-9 #### JIMBO ANTHONY ([id number]) [facility] ([facility]) [address] [place] [address] 26900 RBC (U) [#/Vol] 0.06 (1+) Abnormal NEGATIVE [facility] Comment on above: Performed By: #### 1 9123-9 #### JIMBO ANTHONY ([id number]) [facility] ([facility]) [address] [place] [address] RBC Auto (Urine sed) [#/Area] 3-5 Normal NONE, 1-2, 3-5 [facility] Comment on above: Performed By: #### 1 9123-9 #### JIMBO ANTHONY ([id number]) [facility] ([facility]) [address] [place] [address] Specific gravity (U) [Rel density] 1.008 Normal 1.005-1.035 [facility] Comment on above: Performed By: #### 1 9123-9 #### JIMBO ANTHONY ([id number]) [facility] ([facility]) [address] [place] [address] Urobilinogen (U) [Mass/Vol] Normal Normal Normal [facility] Comment on above: Performed By: #### 1 9123-9 #### JIMBO ANTHONY ([id number]) [facility] ([facility]) [address] [place] [address] WBC Auto (Urine sed) [#/Area] 1-5 Normal 1-5, NONE [facility] Comment on above: Performed By: #### 1 9123-9 #### JIMBO ANTHONY ([id number]) [facility] ([facility]) [address] [place] [address] XR CHEST 1 VIEWon 10-14-2023 XR CHEST 1 VIEW Interpreted By: Glen Crowley, STUDY: XR CHEST 1 VIEW 10/14/2023 3:12 pm INDICATION: Signs/Symptoms:syncop e COMPARISON: 10/11/2023 ACCESSION NUMBER(S): [id number] ORDERING CLINICIAN: BALBIR TAVARES TECHNIQUE: A single AP portable radiograph of the chest was obtained. FINDINGS: No focal infiltrate, pleural effusion or pneumothorax is identified. The cardiac silhouette is within normal limits for size. IMPRESSION: No focal infiltrate or pneumothorax is identified. MACRO: None. Signed by: Glen Crowley 10/14/2023 3:40 PM Dictation workstation: [id number] [facility] XR FOREARM LEFT 2 VIEWSon XR FOREARM LEFT 2 VIEWS Interpreted By: Glen Crowley, STUDY: XR FOREARM LEFT 2 VIEWS 10/14/2023 3:12 pm INDICATION: Signs/Symptoms:pain after fall COMPARISON: None. ACCESSION NUMBER(S): [id number] ORDERING CLINICIAN: BALBIR TAVARES TECHNIQUE: Two views of the left forearm including AP and lateral projections were obtained. FINDINGS: There is no evidence of acute fracture or dislocation. The joint spaces are well preserved without significant degenerative changes. IMPRESSION: 1. No evidence of acute fracture or dislocation. MACRO: None. Signed by: Glen Crowley 10/14/2023 3:41 PM Dictation workstation: [id number] [facility] Bacteria identifiedon 2023 Bacteria identified Cx Nom (U) Test: Urine Culture Specimen Source: Clean Catch/Voided Specimen Type: Urine Specimen Date: 10/11/2023 154 Result Date: 10/13/202345 Result Status: Final result Abnormal: No Resulting Lab: [facility] [address] [place] [address] CULTURE No significant growth Normal [facility] Comment on above: Performed By: #### 6 30-4 ####UMU Rasheed ([id number])[facility] ([facility])[address] [place] [address] 22789 CBC W Auto Differential pane l (Bld)on 10-11-2023 Basophils (Bld) [#/Vol] 0.03 x10*3/uL Normal 0.00-0.10 [facility] Comment on above: Performed By: #### 5 7021-8 ####JIMBO ANTHONY ([id number])[facility] ([facility])[address] [place] [address] 91263 Basophils/100 WBC (Bld) 0.5 % Normal 0.0-2.0 [facility] Comment on above: Performed By: #### 5 7021-8 ####JIMBO ANTHONY ([id number])[facility] ([facility])[address] [place] [address] 67037 Eosinophils (Bld) [#/Vol] 0.07 x10*3/uL Normal 0.00-0.70 [facility] Comment on above: Performed By: #### 7021-8 ####JMIBO ANTHONY ([id number])[facility] ([facility])[address] [place] [address] 77515 Eosinophils/100 WBC (Bld) 1.1 % Normal 0.0-6.0 [facility] Comment on above: Performed By: #### 7021-8 ####JIMBO ANTHONY ([id number])[facility] ([facility])[address] [place] [address] 72178 Erythrocyte distribution width (RBC) [Ratio] 13.9 % Normal 11.5-14.5 [facility] Comment on above: Performed By: #### 7021-8 ####JIMBO ANTHONY ([id number])[facility] ([facility])[address] [place] [address] 03248 Hematocrit (Bld) [Volume fraction] 38.4 % Normal 36.0-46.0 [facility] Comment on above: Performed By: #### 5 7021-8 ####JIMBO ANTHONY ([id number])[facility] ([facility])[address] [place] [address] 95158 Hemoglobin (Bld) [Mass/Vol] 12.6 g/dL Normal 12.0-16.0 [facility] Comment on above: Performed By: #### 5 7021-8 ####JIMBO ANTHONY ([id number])[facility] ([facility])[address] [place] [address] 85109 Immature granulocytes (Bld) [#/Vol] 0.04 x10*3/uL Normal 0.00-0.70 [facility] Comment on above: Performed By: #### 5 7021-8 ####JIMBO ANTHONY ([id number])[facility] ([facility])[address] [place] [address] 66684 Immature granulocytes/100 WBC (Bld) 0.6 % Normal 0.0-0.9 [facility] Comment on above: Result Comment: Mira ture Granulocyte Count (IG) includes promyelocytes, myelocytes and metamyelocytes but does not include bands. Percent differential counts (%) should be interpreted in the context of the absolute cell counts (cells/UL). Performed By: #### 5 7021-8 ####JIMBO ANTHONY ([id number])[facility] ([facility])[address] [place] [address] 55691 Lymphocytes (Bld) [#/Vol] 1.89 x10*3/uL Normal 1.20-4.80 [facility] Comment on above: Performed By: #### 5 7021-8 ####JIMBO ANTHONY ([id number])[facility] ([facility])[address] [place] [address] 28956 Lymphocytes/100 WBC (Bld) 29.2 % Normal 13.0-44.0 [facility] Comment on above: Performed By: #### 5 7021-8 ####JIMBO ANTHONY ([id number])[facility] ([facility])[address] [place] [address] 22926 MCH (RBC) [Entitic mass] 28.4 pg Normal 26.0-34.0 [facility] Comment on above: Performed By: #### 5 7021-8 ####JIMBO ANTHONY ([id number])[facility] ([facility])[address] [place] [address] 83766 MCHC (RBC) [Mass/Vol] 32.8 g/dL Normal 32.0-36.0 [facility] Comment on above: Performed By: #### 5 7021-8 ####JIMBO ANTHONY ([id number])[facility] ([facility])[address] [place] [address] 83056 MCV (RBC) [Entitic vol] 87 fL Normal 80-100 [facility] Comment on above: Performed By: #### 5 7021-8 ####JIMBO ANTHONY ([id number])[facility] ([facility])[address] [place] [address] 90818 Monocytes (Bld) [#/Vol] 0.40 x10*3/uL Normal 0.10-1.00 [facility] Comment on above: Performed By: #### 5 7021-8 ####JIMBO ANTHONY ([id number])[facility] ([facility])[address] [place] [address] 26097 Monocytes/100 WBC (Bld) 6.2 % Normal 2.0-10.0 [facility] Comment on above: Performed By: #### 5 7021-8 ####JIMBO ANTHONY ([id number])[facility] ([facility])[address] [place] [address] 47946 Neutrophils (Bld) [#/Vol] 4.05 x10*3/uL Normal 1.20-7.70 [facility] Comment on above: Result Comment: Perc ent differential counts (%) should be interpreted in the context of the absolute cell counts (cells/uL). Performed By: #### 5 7021-8 ####JIMBO ANTHONY ([id number])[facility] ([facility])[address] [place] [address] 90895 Neutrophils/100 WBC (Bld) 62.4 % Normal 40.0-80.0 [facility] Comment on above: Performed By: #### 5 7021-8 ####JIMBO ANTHONY ([id number])[facility] ([facility])[address] [place] [address] 94333 Nucleated RBC/100 WBC (Bld) [Ratio] 0.0 /100 WBCs Normal 0.0-0.0 [facility] Comment on above: Performed By: #### 5 7021-8 ####JIMBO ANTHONY ([id number])[facility] ([facility])[address] [place] [address] 02764 Platelets (Bld) [#/Vol] 108 x10*3/uL Low 150-450 [facility] Comment on above: Performed By: #### 5 7021-8 ####JIMBO ANTHONY ([id number])[facility] ([facility])[address] [place] [address] RBC (Bld) [#/Vol] 4.43 x10*6/uL Normal 4.00-5.20 [facility] Comment on above: Performed By: #### 5 7021-8 ####JIMBO ANTHONY ([id number])[facility] ([facility])[address] [place] [address] 21262 WBC (Bld) [#/Vol] 6.5 x10*3/uL Normal 4.4-11.3 [facility] Comment on above: Performed By: #### 5 7021-8 ####JIMBO ANTHONY ([id number])[facility] ([facility])[address] [place] [address] HEAD WO IV CONTRASTon CT HEAD WO IV CONTRAST Interpreted By: Anne-Marie Goodman, STUDY: CT HEAD WO IV CONTRAST; 10/11/2023 4:36 pm INDICATION: Signs/Symptoms:headac he, fall. COMPARISON: 04/01/2022 ACCESSION NUMBER(S): [id number] ORDERING CLINICIAN: MARTY PIERRE TECHNIQUE: Noncontrast axial CT scan of head was performed. Multiplanar reconstructions FINDINGS: No acute intracranial hemorrhage, mass effect, midline shift, or herniation. No evidence of hydrocephalus. The ventricles and sulci are unremarkable for age. The visualized paranasal sinuses and mastoid air cells are clear. No acute osseous abnormality of the calvarium. No destructive bone lesion. IMPRESSION: No acute intracranial abnormality. Consider follow-up with MRI as warranted. Signed by: Anne-Marie Goodman 10/11/2023 4:56 PM Dictation workstation: [id number] [facility] Coagulation surface inducedo n 10-11-2023 aPTT Coag (PPP) [Time] 32 s Normal 27-38 [facility] Comment on above: Order Comment: The A PTT is no longer used for monitoring Unfractionated Heparin Therapy. For monitoring Heparin Therapy, use the Heparin Assay. Performed By: #### 1 4979-9 ####JIMBO ANTHONY ([id number])[facility] ([facility])[address] [place] [address] Coagulation tissue factor in ducedon 10-11-2023 PT Coag (PPP) [Time] 11.7 s Normal 9.8-12.8 [facility] Comment on above: Performed By: #### 5 902-2 ####JIMBO ANTHONY ([id number])[facility] ([facility])[address] [place] [address] Comprehensive metabolic 2000 panelon 10-11-2023 Albumin BCP dye [Mass/Vol] 3.2 g/dL Low 3.4-5.0 [facility] Comment on above: Performed By: #### 2 4323-8 ####JIMBO ANTHONY ([id number])[facility] ([facility])[address] [place] [address] ALP [Catalytic activity/Vol] 140 U/L High 33-136 [facility] Comment on above: Performed By: #### 2 4323-8 ####JIMBO ANTHONY ([id number])[facility] [facility] ([facility])[address] [place] [address] 78729 ALT With P-5'-P [Catalytic activity/Vol] 11 U/L Normal 7-45 [facility] Comment on above: Result Comment: Stephany ents treated with Sulfasalazine may generate falsely decreased results for ALT. Performed By: #### 2 4323-8 ####JIMBO ANTHONY ([id number])[facility] ([facility])[address] [place] [address] 00374 Anion gap [Moles/Vol] 10 mmol/L Normal 10-20 [facility] Comment on above: Performed By: #### 2 4323-8 ####JIMBO ANTHONY ([id number])[facility] ([facility])[address] [place] [address] 23795 AST With P-5'-P [Catalytic activity/Vol] 16 U/L Normal 9-39 [facility] Comment on above: Performed By: #### 2 4323-8 ####JIMBO ANTHONY ([id number])[facility] ([facility])[address] [place] [address] Bilirubin [Mass/Vol] 0.3 mg/dL Normal 0.0-1.2 [facility] Comment on above: Performed By: #### 2 4323-8 ####JIMBO ANTHONY ([id number])[facility] ([facility])[address] [place] [address] 21071 Calcium [Mass/Vol] 8.7 mg/dL Normal 8.6-10.3 [facility] Comment on above: Performed By: #### 2 4323-8 ####JIMBO ANTHONY ([id number])[facility] ([facility])[address] [place] [address] 10898 Chloride [Moles/Vol] 97 mmol/L Low 98-107 [facility] Comment on above: Performed By: #### 2 4323-8 ####JMIBO ANTHONY ([id number])[facility] ([facility])[address] [place] [address] 56254 CO2 [Moles/Vol] 30 mmol/L Normal 21-32 [facility] Comment on above: Performed By: #### 2 4323-8 ####JIMBO ANTHONY ([id number])[facility] ([facility])[address] [place] [address] Creatinine [Mass/Vol] 1.20 mg/dL High 0.50-1.05 [facility] Comment on above: Performed By: #### 2 4323-8 ####JIMBO ANTHONY ([id number])[facility] ([facility] [place] [address] Glomerular filtration rate/1.73 sq M.predicted 50 mL/min/1.73m*2 Low >60 [facility] Comment on above: Result Comment: Calc ulations of estimated GFR are performed using the 2020 CKD-EPI Study Refit equation without the race variable for the IDMS-Traceable creatinine methods. https://jasn.asnjournals.org/content//ASN 32782 Performed By: #### 2 4323-8 ####JIMBO ANTHONY ([id number])[facility] ([facility])[address] [place] [address] 83941 Glucose [Mass/Vol] 360 mg/dL High 74-99 [facility] Comment on above: Performed By: #### 2 4323-8 ####JIMBO ANTHONY ([id number])[facility] ([facility])[address] [place] [address] 30341 Potassium [Moles/Vol] 4.3 mmol/L Normal 3.5-5.3 [facility] Comment on above: Performed By: #### 2 4323-8 ####JIMBO ANTHONY ([id number])[facility] ([facility])[address] [place] [address] 40558 Protein [Mass/Vol] 6.8 g/dL Normal 6.4-8.2 [facility] Comment on above: Performed By: #### 2 4323-8 ####JIMBO ANTHONY ([id number])[facility] ([facility])[address] [place] [address] 10074 Sodium [Moles/Vol] 133 mmol/L Low 136-145 [facility] Comment on above: Performed By: #### 2 4323-8 ####JIMBO ANTHONY ([id number])[facility] ([facility])[address] [place] [address] 90589 Urea nitrogen [Mass/Vol] 12 mg/dL Normal 6-23 [facility] Comment on above: Performed By: #### 2 4323-8 ####JIMBO ANTHONY ([id number])[facility] ([facility])[address] [place] [address] 88699 ECG 12-LEADon 10-11-2023 ECG 12-LEAD Ventricular Rate 70 Atrial Rate 70 P-R Interval 152 QRS Duration 66 Q-T Interval 394 QTC Calculation(Bazett) 425 P Alpine 56 R Alpine 0 T Alpine 67 QRS Count 11 Q Onset 222 P Onset 146 P Offset 201 T Offset 419 QTC Fredericia 415 Diagnosis Normal sinus rhythm Low voltage QRS Borderline ECG When compared with ECG of 31-MAY-2023 07:34, No significant change was found See ED provider note for full interpretation and clinical correlation Confirmed by Nataliia Don ([id number]) on 10/20/2023 1:18:41 PM Normal [facility] Glucose Test strip manual (B ld) [Mass/Vol]on 10-11-2023 Glucose [Mass/Vol] 248 mg/dL High 74-99 [facility] Comment on above: Performed By: #### 2 341-6 ####JIMBO ANTHONY ([id number])[facility] ([facility])[address] [place] [address] Lactateon 10-11-2023 Lactate [Moles/Vol] 1.4 mmol/L Normal 0.4-2.0 [facility] Comment on above: Order Comment: Venip uncture immediately after or during the administration of Metamizole may lead to falsely low results. Testing should be performed immediatelyprior to Metamizole dosing. Performed By: #### 2 524-7 ####JIMBO ANTHONY ([id number])[facility] ([facility])[address] [place] [address] Magnesiumon 10-11-2023 Magnesium [Mass/Vol] 1.45 mg/dL Low 1.60-2.40 [facility] Comment on above: Performed By: #### 1 9123-9 ####JIMBO ANTHONY ([id number])[facility] ([facility])[address] [place], [place] [phone] PT Coag (PPP) [Time]on 10-10 INR Coag (PPP) [Relative time] 1.0 Normal 0.9-1.1 [facility] Comment on above: Performed By: #### 5 902-2 ####JIMBO ANTHONY ([id number])[facility] ([facility])[address] [place] [address] SARS coronavirus 2 RNAon SARS-CoV-2 (COVID-19) RNA JACKIE+probe Ql (Resp) Not detected Normal Not Detected [facility] Comment on above: Order Comment: This assay has received FDA Emergency Use Authorization (EUA) and is only authorized for the duration of time that circumstances exist to justify the authorization of the emergency use of in vitro diagnostic tests for the detection of SARS-CoV-2 virus and/or diagnosis of COVID-19 infection under section 564(b)(1) of the Act, 21 U.S.C. 360bbb-3(b)(1). This assay is an in vitro diagnostic nucleic acid amplification test for the qualitative detection of SARS-CoV-2 from nasopharyngeal specimens and has been validated for use at [facility]. Negative results do not preclude COVID-19 infections and should not be used as the sole basis for diagnosis, treatment, or other management decisions. Performed By: #### 9 4500-6 ####JIMBO ANTHONY ([id number])[facility] ([facility])[address] [place] [address] 11434 Troponin I.cardiac panelon 0 10-11-2023 Tropinin I.cardiac panel High sensitivity method 8 ng/L Normal 0-13 [facility] Comment on above: Order Comment: Less than 99th percentile of normal range cutoff-Female and children under 18 years old <14 ng/L; Male <21 ng/L: NegativeRepeat testing should be performed if clinically indicated.Female and children under 18 years old 14-50 ng/L; Male 21-50 ng/L:Consistent with possible cardiac damage and possible increased clinicalrisk. Serial measurements may help to assess extent of myocardial damage.>50 ng/L: Consistent with cardiac damage, increased clinical risk andmyocardial infarction. Serial measurements may help assess extent ofmyocardial damage.NOTE: Children less than 1 year old may have higher baseline troponinlevels and results should be interpreted in conjunction with the overallclinical context.NOTE: Troponin I testing is performed using a differenttesting methodology at [facility] than at [facility]. Direct result comparisons should onlybe made within the same method. Performed By: #### 8 9577-1 ####JIMBO ANTHONY ([id number])[facility] ([facility])[address] [place] [address] 96383 Tropinin I.cardiac panel High sensitivity method 7 ng/L Normal 0-13 [facility] Comment on above: Order Comment: Less than 99th percentile of normal range cutoff-Female and children under 18 years old <14 ng/L; Male <21 ng/L: NegativeRepeat testing should be performed if clinically indicated.Female and children under 18 years old 14-50 ng/L; Male 21-50 ng/L:Consistent with possible cardiac damage and possible increased clinicalrisk. Serial measurements may help to assess extent of myocardial damage.>50 ng/L: Consistent with cardiac damage, increased clinical risk andmyocardial infarction. Serial measurements may help assess extent ofmyocardial damage.NOTE: Children less than 1 year old may have higher baseline troponinlevels and results should be interpreted in conjunction with the overallclinical context.NOTE: Troponin I testing is performed using a differenttesting methodology at [facility] than at [facility]. Direct result comparisons should onlybe made within the same method. Performed By: #### 8 9577-1 ####JIMBO ANTHONY ([id number])[facility] ([facility])[address] [place], [place] [phone] Urinalysis complete W Reflex Culture panel (U)on 10-11-2023 Appearance (U) Clear Normal Clear [facility] Comment on above: Performed By: #### 5 8077-9 ####JIMBO ANTHONY ([id number])[facility] ([facility])[address] [place] [address] 55221 Bilirubin (U) [Mass/Vol] Negative Normal NEGATIVE [facility] Comment on above: Performed By: #### 5 8077-9 ####JIMBO ANTHONY ([id number])[facility] ([facility])[address] [place] [address] 78541 Color (U) Yellow Normal Light-Yellow , Yellow, Dark-Yellow [facility] Comment on above: Performed By: #### 5 8077-9 ####JIMBO ANTHONY ([id number])[facility] ([facility])[address] [place] [address] 60894 Glucose Auto test strip (U) [Mass/Vol] OVER (4+) Abnormal Normal [facility] Comment on above: Performed By: #### 5 8077-9 ####JIMBO ANTHONY ([id number])[facility] ([facility])[address] [place] [address] 53691 Ketones (U) [Mass/Vol] Negative Normal NEGATIVE [facility] Comment on above: Performed By: #### 5 8077-9 ####JIMBO ANTHONY ([id number])[facility] ([facility])[address] [place] [address] 29783 Leukocyte esterase Auto test strip Ql (U) 75 Pta/???L Abnormal NEGATIVE [facility] Comment on above: Performed By: #### 5 8077-9 ####JIMBO ANTHONY ([id number])[facility] ([facility])[address] [place] [address] 88343 Nitrite Auto test strip Ql (U) Negative Normal NEGATIVE [facility] Comment on above: Performed By: #### 5 8077-9 ####JIMBO ANTHONY ([id number])[facility] ([facility])[address] [place] [address] 00734 pH (U) 6.5 [pH] Normal 5.0, 5.5, 6.0, 6.5, 7.0, 7.5, 8.0 [facility] Comment on above: Performed By: #### 5 8077-9 ####JIMBO ANTHONY ([id number])[facility] ([facility])[address] [place] [address] 73913 Protein (U) [Mass/Vol] 600 (3+) Abnormal NEGAT ABDELRAHMAN, 10 (TRACE), 20 (TRACE) [facility] Comment on above: Performed By: #### 5 8077-9 ####JIMBO ANTHONY ([id number])[facility] ([facility])[address] [place] [address] 36550 RBC (U) [#/Vol] 0.2 (2+) Abnormal NEGATIVE [facility] Comment on above: Performed By: #### 5 8077-9 ####JIMBO ANTHONY ([id number])[facility] ([facility])[address] [place] [address] 66481 Specific gravity (U) [Rel density] 1.027 Normal 1.005-1.035 [facility] Comment on above: Performed By: #### 5 8077-9 ####JIMBO ANTHONY ([id number])[facility] ([facility])[address] [place] [address] Urobilinogen (U) [Mass/Vol] 2 (1+) Abnormal Normal [facility] Comment on above: Result Comment: Due to a manufacturing issue, low positive urobilinogen results may be falsely positive. Correlate with urine bilirubin and additional clinical/laboratory findings to assess the risk of hemolytic anemia or liver disease. If clinically indicated, repeat testing with an alternate method is available by contacting the laboratory within 24 hours. Some pigments and medications may cause a false positive urobilinogen. Performed By: #### 5 8077-9 ####JIMBO ANTHONY ([id number])[facility] ([facility])[address] [place] [address] Urinalysis microscopic panel Auto Ql (U)on 10-11-2023 Bacteria Auto (Urine sed) [#/Area] 2+ /HPF Abnormal NONE SEEN [facility] Comment on above: Performed By: #### 5 3315-8 ####JIMBO ANTHONY ([id number])[facility] ([facility])[address] [place] [address] Epithelial cells.squamous Auto (Urine sed) [#/Area] 10-25 (FEW) Normal Reference range not established. [facility] Comment on above: Performed By: #### 5 3315-8 ####JIMBO ANTHONY ([id number])[facility] ([facility])[address] [place] [address] Mucus Auto (Urine sed) [#/Area] FEW Normal Reference range not established. [facility] Comment on above: Performed By: #### 5 3315-8 ####JIMBO ANTHONY ([id number])[facility] ([facility])[address] [place] [address] RBC Auto (Urine sed) [#/Area] >20 Abnormal NONE, 1-2, 3-5 [facility] Comment on above: Performed By: #### 5 3315-8 ####CHOI GABRIELLE ([id number])[facility] ([facility])[address] [place] [address] 74216 WBC Auto (Urine sed) [#/Area] 6-10 Abnormal 1-5, NONE [facility] Comment on above: Performed By: #### 5 3315-8 ####CHOI GABRIELLE ([id number])[facility] ([facility])[address] [place] [address] XR CHEST 1 VIEWon 10-11-2023 XR CHEST 1 VIEW Interpreted By: Barb Bruno, STUDY: XR CHEST 1 VIEW; 10/11/2023 3:55 pm INDICATION: Signs/Symptoms:Chest Pain. COMPARISON: 06/11/2023 ACCESSION NUMBER(S): [id number] ORDERING CLINICIAN: MARTY PIERRE FINDINGS: The heart is normal in size. There is no consolidation or pleural fluid. The mediastinum and bones unremarkable. COMPARISON OF FINDING: The chest is similar. IMPRESSION: No acute cardiopulmonary disease. MACRO: none Signed by: Barb Bruno 10/11/2023 4:03 PM Dictation workstation: [id number] Normal [facility] Glucose Test strip manual (B ld) [Mass/Vol]on 09-30-2023 Glucose [Mass/Vol] 412 mg/dL High 74-99 [facility] Comment on above: Performed By: #### 2 341-6 ####CHOI GABRIELLE ([id number])[facility] ([facility])[address] [place] [address] XR KNEE LEFT 4+ VIEWSon 09-10 XR KNEE LEFT 4+ VIEWS Interpreted By: Naresh Singh, STUDY: XR KNEE LEFT 4+ VIEWS; ; 09/30/2023 11:02 am INDICATION: Signs/Symptoms:S/P knee sugery. COMPARISON: 07/22/2023 ACCESSION NUMBER(S): [id number] ORDERING CLINICIAN: SHADIA DALEY FINDINGS: Left knee, four views Total knee arthroplasty in place. No periprosthetic fracture is seen. There is a small effusion. No dislocation IMPRESSION: No hardware failure about the total knee arthroplasty MACRO: None Signed by: Naresh Singh 10/01/2023 11:10 AM Dictation workstation: [id number] [facility] Comment on above: Order Comment: Date of Surgery 06/10/2023 XR Knee - left 3 Viewson Uncomplicated appearance of a total left knee arthroplasty. MACRO: None Signed by: Prudencio Kemp 07/23/2023 8:44 AM Dictation workstation: [id number] MMODAL Interpreted By: Prudencio Kemp, STUDY: XR KNEE LEFT 3 VIEWS; ; 07/22/2023 9:09 am INDICATION: Signs/Symptoms:pain. COMPARISON: None. ACCESSION NUMBER(S): [id number] ORDERING CLINICIAN: FREDY STYLES FINDINGS: Three views of the left knee. Status post total left knee arthroplasty. No perihardware lucency or fracture to suggest failure. Mild tricompartmental degenerative changes of the right knee. No acute fracture. No dislocation. [facility] Prudencio Kemp MD - 07/23/2023 Interpreted By: Prudencio Kemp, STUDY: XR KNEE LEFT 3 VIEWS; ; 07/22/2023 9:09 am INDICATION: Signs/Symptoms:pain. COMPARISON: None. ACCESSION NUMBER(S): [id number] ORDERING CLINICIAN: FREDY STYLES FINDINGS: Three views of the left knee. Status post total left knee arthroplasty. No perihardware lucency or fracture to suggest failure. Mild tricompartmental degenerative changes of the right knee. No acute fracture. No dislocation. IMPRESSION: Uncomplicated appearance of a total left knee arthroplasty. MACRO: None Signed by: Prudencio Kemp 07/23/2023 8:44 AM Dictation workstation: [id number] [facility] Work Phone: XR Knee - left 3 ViewsOrdere d By: Prudencio Kemp on 07-23-2023 [facility] Work Phone: XR KNEE LEFT 3 VIEWSon 07-21 XR KNEE LEFT 3 VIEWS Interpreted By: Prudencio Kemp, STUDY: XR KNEE LEFT 3 VIEWS; ; 07/22/2023 9:09 am INDICATION: Signs/Symptoms:pain. COMPARISON: None. ACCESSION NUMBER(S): [id number] ORDERING CLINICIAN: FREDY STYLES FINDINGS: Three views of the left knee. Status post total left knee arthroplasty. No perihardware lucency or fracture to suggest failure. Mild tricompartmental degenerative changes of the right knee. No acute fracture. No dislocation. IMPRESSION: Uncomplicated appearance of a total left knee arthroplasty. MACRO: None Signed by: Prudencio Kemp 07/23/2023 8:44 AM Dictation workstation: [id number] [facility] XR Knee - left 3 Viewson Radiology Study observation (narrative) [facility] Work Phone: XR Knee - left 3 Viewson No hardware failure about the left total knee arthroplasty. Normal radiographs of the right knee MACRO: None Signed by: Naresh Singh 06/18/2023 9:39 AM Dictation workstation: [id number] MMODAL Interpreted By: Naresh Singh, STUDY: XR KNEE LEFT 3 VIEWS; ; 06/17/2023 9:28 am INDICATION: Signs/Symptoms:POST OP CARE. COMPARISON: 04/04/2023 ACCESSION NUMBER(S): [id number] ORDERING CLINICIAN: FREDY STYLES FINDINGS: Bilateral knees, three views of the left and two views of the right Left total knee arthroplasty in place. There is a moderate-sized effusion. There is no periprosthetic fracture or lucency. There is no dislocation. No abnormality seen in the right knee [facility] Naresh Singh MD - 06/18/2023 Interpreted By: Naresh Singh, STUDY: XR KNEE LEFT 3 VIEWS; ; 06/17/2023 9:28 am INDICATION: Signs/Symptoms:POST OP CARE. COMPARISON: 04/04/2023 ACCESSION NUMBER(S): [id number] ORDERING CLINICIAN: FREDY STYLES FINDINGS: Bilateral knees, three views of the left and two views of the right Left total knee arthroplasty in place. There is a moderate-sized effusion. There is no periprosthetic fracture or lucency. There is no dislocation. No abnormality seen in the right knee IMPRESSION: No hardware failure about the left total knee arthroplasty. Normal radiographs of the right knee MACRO: None Signed by: Naresh Singh 06/18/2023 9:39 AM Dictation workstation: [id number] [facility] Work Phone: XR Knee - left 3 ViewsOrdere d By: Naresh Singh on 06-18-2023 [facility] Work Phone: XR KNEE LEFT 3 VIEWSon 06-16 XR KNEE LEFT 3 VIEWS Interpreted By: Naresh Singh, STUDY: XR KNEE LEFT 3 VIEWS; ; 06/17/2023 9:28 am INDICATION: Signs/Symptoms:POST OP CARE. COMPARISON: 04/04/2023 ACCESSION NUMBER(S): [id number] ORDERING CLINICIAN: FREDY STYLES FINDINGS: Bilateral knees, three views of the left and two views of the right Left total knee arthroplasty in place. There is a moderate-sized effusion. There is no periprosthetic fracture or lucency. There is no dislocation. No abnormality seen in the right knee IMPRESSION: No hardware failure about the left total knee arthroplasty. Normal radiographs of the right knee MACRO: None Signed by: Naresh Singh 06/18/2023 9:39 AM Dictation workstation: [id number] [facility] Comment on above: Order Comment: Bilat eral AP and Bilat Tamiami, Unilateral LAT, WITH MARKER BALL. XR Knee - left 3 Viewson Radiology Study observation (narrative) [facility] Work Phone: Basic metabolic 2000 panelon 06-12-2023 Anion gap [Moles/Vol] 10 mmol/L 10 - 2 0 mmol/L [facility] Calcium [Mass/Vol] 7.9 mg/dL Low 8.6 - 10. 3 mg/dL [facility] Chloride [Moles/Vol] 96 mmol/L Low 98 - 10 7 mmol/L [facility] CO2 [Moles/Vol] 30 mmol/L 21 - 32 mmol/L [facility] Creatinine [Mass/Vol] 1.05 mg/dL 0.50 - 1.05 mg/dL [facility] GFR/1.73 sq M.predicted among non-blacks MDRD (S/P/Bld) [Vol rate/Area] 59 mL/min/{1.73_m2} Low - PINF [facility] Comment on above: Calculations of roxann mated GFR are performed using the 2020 CKD-EPI Study Refit equation without the race variable for the IDMS-Traceable creatinine methods. https://jasn.asnjournals.org/content//ASN.68825 86163 Glucose [Mass/Vol] 195 mg/dL High 74 - 99 mg/dL [facility] Interpretation and review of laboratory results Abnormal [facility] Potassium [Moles/Vol] 4.5 mmol/L 3.5 - 5.3 mmol/L [facility] Sodium [Moles/Vol] 131 mmol/L Low 136 - 145 mmol/L [facility] Urea nitrogen [Mass/Vol] 16 mg/dL 6 - 23 mg/dL [facility] Anion gap [Moles/Vol] 10 mmol/L Normal 10-20 [facility] Comment on above: Performed By: #### 5 8077-9 #### JIMBO ANTHONY ([id number]) [facility] ([facility]) [address] [place] [address] 25989 Calcium [Mass/Vol] 7.9 mg/dL Low 8.6-10.3 [facility] Comment on above: Performed By: #### 5 8077-9 #### JIMBO ANTHONY ([id number]) [facility] ([facility]) [facility] [place] [address] Chloride [Moles/Vol] 96 mmol/L Low 98-107 [facility] Comment on above: Performed By: #### 5 8077-9 #### JIMBO ANTHONY ([id number]) [facility] ([facility]) [address] [place] [address] 42017 CO2 [Moles/Vol] 30 mmol/L Normal 21-32 [facility] Comment on above: Performed By: #### 5 8077-9 #### JIMBO ANTHONY ([id number]) [facility] ([facility]) [address] [place] [address] Creatinine [Mass/Vol] 1.05 mg/dL Normal 0.50-1.05 [facility] Comment on above: Performed By: #### 5 8077-9 #### JIMBO ANTHONY ([id number]) [facility] ([facility]) [address] [place] [address] 36504 Glomerular filtration rate/1.73 sq M.predicted 59 mL/min/1.73m*2 Low >60 [facility] Comment on above: Result Comment: Calc ulations of estimated GFR are performed using the 2020 CKD-EPI Study Refit equation without the race variable for the IDMS-Traceable creatinine methods. https://jasn.asnjournals.org/content/early//ASN.79091 86857 Performed By: #### 5 8077-9 #### JIMBO ANTHONY ([id number]) [facility] ([facility]) [address] [place] [address] 57736 Glucose [Mass/Vol] 195 mg/dL High 74-99 [facility] Comment on above: Performed By: #### 5 8077-9 #### JIMBO ANTHONY ([id number]) [facility] ([facility]) [address] [place] [address] 61141 Potassium [Moles/Vol] 4.5 mmol/L Normal 3.5-5.3 [facility] Comment on above: Performed By: #### 5 8077-9 #### JIMBO ANTHONY ([id number]) [facility] ([facility]) [address] [place] [address] 82145 Sodium [Moles/Vol] 131 mmol/L Low 136-145 [facility] Comment on above: Performed By: #### 5 8077-9 #### JIMBO ANTHONY ([id number]) [facility] ([facility]) [address] [place] [address] 05831 Urea nitrogen [Mass/Vol] 16 mg/dL Normal 6-23 [facility] Comment on above: Performed By: #### 5 8077-9 #### JIMBO ANTHONY ([id number]) [facility] ([facility]) [facility] [place] [address] CBC panel Auto (Bld)on 06-11 Erythrocyte distribution width (RBC) [Ratio] 13.5 % 11.5 - 14.5 % [facility] Hematocrit (Bld) [Volume fraction] 32.2 % Low 36.0 - 46.0 % [facility] Hemoglobin (Bld) [Mass/Vol] 10.6 g/dL Low 12.0 - 16.0 g/dL [facility] Interpretation and review of laboratory results Abnormal [facility] MCH (RBC) [Entitic mass] 29.9 pg 26.0 - 34.0 pg [facility] MCHC (RBC) [Mass/Vol] 32.9 g/dL 32.0 - 36.0 g/dL [facility] MCV (RBC) [Entitic vol] 91 fL 80 - 100 fL [facility] Nucleated RBC/100 WBC (Bld) [Ratio] 0.0 % [facility] Platelets (Bld) [#/Vol] 90 10*3/uL Low [facility] RBC (Bld) [#/Vol] 3.54 10*6/uL [facility] WBC (Bld) [#/Vol] 9.5 10*3/uL [facility] Erythrocyte distribution width (RBC) [Ratio] 13.5 % Normal 11.5-14.5 [facility] Comment on above: Performed By: #### 5 8077-9 #### JIMBO ANTHONY ([id number]) [facility] ([facility]) [facility] [place] [address] Hematocrit (Bld) [Volume fraction] 32.2 % Low 36.0-46.0 [facility] Comment on above: Performed By: #### 5 8077-9 #### JIMBO ANTHONY ([id number]) [facility] ([facility]) [address] [place] [address] Hemoglobin (Bld) [Mass/Vol] 10.6 g/dL Low 12.0-16.0 [facility] Comment on above: Performed By: #### 5 8077-9 #### JIMBO ANTHONY ([id number]) [facility] ([facility]) [address] [place] [address] MCH (RBC) [Entitic mass] 29.9 pg Normal 26.0-34.0 [facility] Comment on above: Performed By: #### 5 8077-9 #### JIMBO ANTHONY ([id number]) [facility] ([facility]) [address] [place] [address] MCHC (RBC) [Mass/Vol] 32.9 g/dL Normal 32.0-36.0 [facility] Comment on above: Performed By: #### 5 8077-9 #### JIMBO ANTHONY ([id number]) [facility] ([facility]) [address] [place] [address] MCV (RBC) [Entitic vol] 91 fL Normal 80-100 [facility] Comment on above: Performed By: #### 5 8077-9 #### JIMBO ANTHONY ([id number]) [facility] ([facility]) [address] [place] [address] 23267 Nucleated RBC/100 WBC (Bld) [Ratio] 0.0 /100 WBCs Normal 0.0-0.0 [facility] Comment on above: Performed By: #### 5 8077-9 #### JIMBO ANTHONY ([id number]) [facility] ([facility]) [address] [place] [address] Platelets (Bld) [#/Vol] 90 x10*3/uL Low 150-450 [facility] Comment on above: Performed By: #### 5 8077-9 #### JIMBO ANTHONY ([id number]) [facility] ([facility]) [address] [place] [address] RBC (Bld) [#/Vol] 3.54 x10*6/uL Low 4.00-5.20 [facility] Comment on above: Performed By: #### 5 8077-9 #### JIMBO ANTHONY ([id number]) [facility] ([facility]) [address] [place] [address] WBC (Bld) [#/Vol] 9.5 x10*3/uL Normal 4.4-11.3 [facility] Comment on above: Performed By: #### 5 8077-9 #### JIMBO ANTHONY ([id number]) [facility] ([facility]) [address] [place], [place] [id number] Glucose Test strip manual (B ld) [Mass/Vol]on 06-12-2023 Glucose [Mass/Vol] 247 mg/dL High 74 - 99 mg/dL [facility] Interpretation and review of laboratory results Abnormal [facility] Glucose [Mass/Vol] 247 mg/dL High 74-99 [facility] Comment on above: Performed By: #### 2 341-6 ####JIMBO ANTHONY ([id number])[facility] ([facility])[address] [place] [address] Glucose [Mass/Vol] 179 mg/dL High 74 - 99 mg/dL [facility] Interpretation and review of laboratory results Abnormal [facility] Glucose [Mass/Vol] 179 mg/dL High 74-99 [facility] Comment on above: Performed By: #### 5 8077-9 #### JIMBO ANTHONY ([id number]) [facility] ([facility]) [address] [place] [address] 07662 Basic metabolic 2000 panelon 06-11-2023 Anion gap [Moles/Vol] 10 mmol/L 10 - 2 0 mmol/L [facility] Calcium [Mass/Vol] 7.8 mg/dL Low 8.6 - 10. 3 mg/dL [facility] Chloride [Moles/Vol] 98 mmol/L 98 - 10 7 mmol/L [facility] CO2 [Moles/Vol] 27 mmol/L 21 - 32 mmol/L [facility] Creatinine [Mass/Vol] 1.33 mg/dL High 0.50 - 1.05 mg/dL [facility] GFR/1.73 sq M.predicted among non-blacks MDRD (S/P/Bld) [Vol rate/Area] 44 mL/min/{1.73_m2} Low - PINF [facility] Comment on above: Calculations of roxann mated GFR are performed using the 2020 CKD-EPI Study Refit equation without the race variable for the IDMS-Traceable creatinine methods. https://jasn.asnjournals.org/content//ASN.65161 70734 Glucose [Mass/Vol] 269 mg/dL High 74 - 99 mg/dL [facility] Interpretation and review of laboratory results Abnormal [facility] Potassium [Moles/Vol] 5.4 mmol/L High 3.5 - 5.3 mmol/L [facility] Sodium [Moles/Vol] 130 mmol/L Low 136 - 145 mmol/L [facility] Urea nitrogen [Mass/Vol] 17 mg/dL 6 - 23 mg/dL [facility] Anion gap [Moles/Vol] 10 mmol/L Normal 10-20 [facility] Comment on above: Performed By: #### 5 8077-9 #### JIMBO ANTHONY ([id number]) [facility] ([facility]) [address] [place] [address] Calcium [Mass/Vol] 7.8 mg/dL Low 8.6-10.3 [facility] Comment on above: Performed By: #### 5 8077-9 #### JIMBO ANTHONY ([id number]) [facility] ([facility]) [facility] [place] [address] Chloride [Moles/Vol] 98 mmol/L Normal 98-107 [facility] Comment on above: Performed By: #### 5 8077-9 #### JIMBO ANTHONY ([id number]) [facility] ([facility]) [address] [place] [address] CO2 [Moles/Vol] 27 mmol/L Normal 21-32 [facility] Comment on above: Performed By: #### 5 8077-9 #### JIMBO ANTHONY ([id number]) [facility] ([facility]) [address] [place] [address] Creatinine [Mass/Vol] 1.33 mg/dL High 0.50-1.05 [facility] Comment on above: Performed By: #### 5 8077-9 #### JIMBO ANTHONY ([id number]) [facility] ([facility]) [facility] [place] [address] Glomerular filtration rate/1.73 sq M.predicted 44 mL/min/1.73m*2 Low >60 [facility] Comment on above: Result Comment: Calc ulations of estimated GFR are performed using the 2020 CKD-EPI Study Refit equation without the race variable for the IDMS-Traceable creatinine methods. https://jasn.asnjournals.org/content/early//ASN.65473 72092 Performed By: #### 5 8077-9 #### JIMBO ANTHONY ([id number]) [facility] ([facility]) [address] [place] [address] Glucose [Mass/Vol] 269 mg/dL High 74-99 [facility] Comment on above: Performed By: #### 5 8077-9 #### JIMBO ANTHONY ([id number]) [facility] ([facility]) [address] [place] [address] Potassium [Moles/Vol] 5.4 mmol/L High 3.5-5.3 [facility] Comment on above: Performed By: #### 5 8077-9 #### JIMBO ANTHONY ([id number]) [facility] ([facility]) [facility] [place] [address] Sodium [Moles/Vol] 130 mmol/L Low 136-145 [facility] Comment on above: Performed By: #### 5 8077-9 #### JIMBO ANTHONY ([id number]) [facility] ([facility]) [facility] [place] [address] Urea nitrogen [Mass/Vol] 17 mg/dL Normal 6-23 [facility] Comment on above: Performed By: #### 5 8077-9 #### JIMBO ANTHONY ([id number]) [facility] ([facility]) [address] [place] [address] Anion gap [Moles/Vol] 10 mmol/L 10 - 2 0 mmol/L [facility] Calcium [Mass/Vol] 7.5 mg/dL Low 8.6 - 10. 3 mg/dL [facility] Chloride [Moles/Vol] 97 mmol/L Low 98 - 10 7 mmol/L [facility] CO2 [Moles/Vol] 28 mmol/L 21 - 32 mmol/L [facility] Creatinine [Mass/Vol] 1.30 mg/dL High 0.50 - 1.05 mg/dL [facility] GFR/1.73 sq M.predicted among non-blacks MDRD (S/P/Bld) [Vol rate/Area] 45 mL/min/{1.73_m2} Low - PINF [facility] Comment on above: Calculations of roxann mated GFR are performed using the 2020 CKD-EPI Study Refit equation without the race variable for the IDMS-Traceable creatinine methods. https://jasn.asnjournals.org/content/early/ASN.41808 29695 Glucose [Mass/Vol] 333 mg/dL High 74 - 99 mg/dL [facility] Interpretation and review of laboratory results Abnormal [facility] Potassium [Moles/Vol] 5.8 mmol/L High 3.5 - 5.3 mmol/L [facility] Sodium [Moles/Vol] 129 mmol/L Low 136 - 145 mmol/L [facility] Urea nitrogen [Mass/Vol] 14 mg/dL 6 - 23 mg/dL [facility] Anion gap [Moles/Vol] 10 mmol/L Normal 10-20 [facility] Comment on above: Performed By: #### 5 8077-9 #### JIMBO ANTHONY ([id number]) [facility] ([facility]) [address] [place] [address] Calcium [Mass/Vol] 7.5 mg/dL Low 8.6-10.3 [facility] Comment on above: Performed By: #### 5 8077-9 #### JIMBO ANTHONY ([id number]) [facility] ([facility]) [address] [place] [address] Chloride [Moles/Vol] 97 mmol/L Low 98-107 [facility] Comment on above: Performed By: #### 5 8077-9 #### JIMBO ANTHONY ([id number]) [facility] ([facility]) [address] [place] [address] CO2 [Moles/Vol] 28 mmol/L Normal 21-32 [facility] Comment on above: Performed By: #### 5 8077-9 #### JIMBO ANTHONY ([id number]) [facility] ([facility]) [facility] [place] [address] Creatinine [Mass/Vol] 1.30 mg/dL High 0.50-1.05 [facility] Comment on above: Performed By: #### 5 8077-9 #### JIMBO ANTHONY ([id number]) [facility] ([facility]) [facility] [place] [address] Glomerular filtration rate/1.73 sq M.predicted 45 mL/min/1.73m*2 Low >60 [facility] Comment on above: Result Comment: Calc ulations of estimated GFR are performed using the 2020 CKD-EPI Study Refit equation without the race variable for the IDMS-Traceable creatinine methods. https://jasn.asnjournals.org/content/early/ASN.96307 07401 Performed By: #### 5 8077-9 #### JIMBO ANTHONY ([id number]) [facility] ([facility]) [facility] [place] [address] Glucose [Mass/Vol] 333 mg/dL High 74-99 [facility] Comment on above: Performed By: #### 5 8077-9 #### JIMBO ANTHONY ([id number]) [facility] ([facility]) [address] [place] [address] Potassium [Moles/Vol] 5.8 mmol/L High 3.5-5.3 [facility] Comment on above: Performed By: #### 5 8077-9 #### JIMBO ANTHONY ([id number]) [facility] ([facility]) [address] [place] [address] Sodium [Moles/Vol] 129 mmol/L Low 136-145 [facility] Comment on above: Performed By: #### 5 8077-9 #### JIMBO ANTHONY ([id number]) [facility] ([facility]) [address] [place] [address] Urea nitrogen [Mass/Vol] 14 mg/dL Normal 6-23 [facility] Comment on above: Performed By: #### 5 8077-9 #### JIMBO ANTHONY ([id number]) [facility] ([facility]) [address] [place] [address] CBC panel Auto (Bld)on 06-10 Erythrocyte distribution width (RBC) [Ratio] 13.6 % 11.5 - 14.5 % [facility] Hematocrit (Bld) [Volume fraction] 35.2 % Low 36.0 - 46.0 % [facility] Hemoglobin (Bld) [Mass/Vol] 11.4 g/dL Low 12.0 - 16.0 g/dL [facility] Interpretation and review of laboratory results Abnormal [facility] MCH (RBC) [Entitic mass] 30.0 pg 26.0 - 34.0 pg [facility] MCHC (RBC) [Mass/Vol] 32.4 g/dL 32.0 - 36.0 g/dL [facility] MCV (RBC) [Entitic vol] 93 fL 80 - 100 fL [facility] Nucleated RBC/100 WBC (Bld) [Ratio] 0.0 % [facility] Platelets (Bld) [#/Vol] 117 10*3/uL [facility] RBC (Bld) [#/Vol] 3.80 10*6/uL [facility] WBC (Bld) [#/Vol] 10.7 10*3/uL [facility] Erythrocyte distribution width (RBC) [Ratio] 13.6 % Normal 11.5-14.5 [facility] Comment on above: Performed By: #### 5 8077-9 #### JIMBO ANTHONY ([id number]) [facility] ([facility]) [address] [place] [address] Hematocrit (Bld) [Volume fraction] 35.2 % Low 36.0-46.0 [facility] Comment on above: Performed By: #### 5 8077-9 #### JIMBO ANTHONY ([id number]) [facility] ([facility]) [address] [place] [address] Hemoglobin (Bld) [Mass/Vol] 11.4 g/dL Low 12.0-16.0 [facility] Comment on above: Performed By: #### 5 8077-9 #### JIMBO ANTHONY ([id number]) [facility] ([facility]) [address] [place] [address] MCH (RBC) [Entitic mass] 30.0 pg Normal 26.0-34.0 [facility] Comment on above: Performed By: #### 5 8077-9 #### JIMBO ANTHONY ([id number]) [facility] ([facility]) [address] [place] [address] MCHC (RBC) [Mass/Vol] 32.4 g/dL Normal 32.0-36.0 [facility] Comment on above: Performed By: #### 5 8077-9 #### JIMBO ANTHONY ([id number]) [facility] ([facility]) [address] [place], [place] [address] MCV (RBC) [Entitic vol] 93 fL Normal 80-100 [facility] Comment on above: Performed By: #### 5 8077-9 #### JIMBO ANTHONY ([id number]) [facility] ([facility]) [address] [place] [address] Nucleated RBC/100 WBC (Bld) [Ratio] 0.0 /100 WBCs Normal 0.0-0.0 [facility] Comment on above: Performed By: #### 5 8077-9 #### JIMBO ANTHONY ([id number]) [facility] ([facility]) [address] [place] [address] Platelets (Bld) [#/Vol] 117 x10*3/uL Low 150-450 [facility] Comment on above: Performed By: #### 5 8077-9 #### JIMBO ANTHONY ([id number]) [facility] ([facility]) [address] [place] [address] 86183 RBC (Bld) [#/Vol] 3.80 x10*6/uL Low 4.00-5.20 [facility] Comment on above: Performed By: #### 5 8077-9 #### JIMBO ANTHONY ([id number]) [facility] ([facility]) [address] [place] [address] 35712 WBC (Bld) [#/Vol] 10.7 x10*3/uL Normal 4.4-11.3 [facility] Comment on above: Performed By: #### 5 8077-9 #### JIMBO ANTHONY ([id number]) [facility] ([facility]) [address] [place] [address]261 Glucose Test strip manual (B ld) [Mass/Vol]on 06-11-2023 Glucose [Mass/Vol] 187 mg/dL High 74 - 99 mg/dL [facility] Interpretation and review of laboratory results Abnormal [facility] Glucose [Mass/Vol] 187 mg/dL High 74-99 [facility] Comment on above: Performed By: #### 5 8077-9 #### JIMBO ANTHONY ([id number]) [facility] ([facility]) [address] [place] [address] Glucose [Mass/Vol] 192 mg/dL High 74 - 99 mg/dL [facility] Interpretation and review of laboratory results Abnormal [facility] Glucose [Mass/Vol] 192 mg/dL High 74-99 [facility] Comment on above: Performed By: #### 5 8077-9 #### JIMBO ANTHONY ([id number]) [facility] ([facility]) [address] [place] [address] Glucose [Mass/Vol] 246 mg/dL High 74 - 99 mg/dL [facility] Interpretation and review of laboratory results Abnormal [facility] Glucose [Mass/Vol] 246 mg/dL High 74-99 [facility] Comment on above: Performed By: #### 5 8077-9 #### JIMBO ANTHONY ([id number]) [facility] ([facility]) [address] [place] [address] Glucose [Mass/Vol] 271 mg/dL High 74 - 99 mg/dL [facility] Comment on above: RN/MD NOTIFIED Interpretation and review of laboratory results Abnormal [facility] Glucose [Mass/Vol] 271 mg/dL High 74-99 [facility] Comment on above: Result Comment: RN/Allan Thomas NOTIFIED Performed By: #### 5 8077-9 #### JIMBO ANTHONY ([id number]) [facility] ([facility]) [address] [place] [address] 090[address] XR CHEST 2 VIEWSon 4 XR CHEST 2 VIEWS Interpreted By: Jono Andrade, STUDY: XR CHEST 2 VIEWS; 06/11/2023 4:44 pm INDICATION: Signs/Symptoms:hypoxi a. COMPARISON: 05/31/2023 ACCESSION NUMBER(S): [id number] ORDERING CLINICIAN: JULY MORALES FINDINGS: The cardiac silhouette is stable in size. There is blunting of the costophrenic angle posteriorly compatible with small pleural effusion. No pneumothorax. 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 IMPRESSION: Blunting of costophrenic angle posteriorly compatible with small pleural effusion. MACRO: None Signed by: Jono Andrade 06/11/2023 10:44 PM Dictation workstation: [id number] [facility] XR Chest 2 Viewson 4 Blunting of costophrenic angle posteriorly compatible with small pleural effusion. MACRO: None Signed by: Jono Andrade 06/11/2023 10:44 PM Dictation workstation: [id number] MMODAL Interpreted By: Jono Andrade, STUDY: XR CHEST 2 VIEWS; 06/11/2023 4:44 pm INDICATION: Signs/Symptoms:hypoxi a. COMPARISON: 05/31/2023 ACCESSION NUMBER(S): [id number] ORDERING CLINICIAN: JULY MORALES FINDINGS: The cardiac silhouette is stable in size. There is blunting of the costophrenic angle posteriorly compatible with small pleural effusion. No pneumothorax. 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 [facility] MM[facility]AL Jono Andrade MD - 06/11/2023 Interpreted By: Jono Andrade, STUDY: XR CHEST 2 VIEWS; 06/11/2023 4:44 pm INDICATION: Signs/Symptoms:hypoxi a. COMPARISON: 05/31/2023 ACCESSION NUMBER(S): [id number] ORDERING CLINICIAN: JULY MORALES FINDINGS: The cardiac silhouette is stable in size. There is blunting of the costophrenic angle posteriorly compatible with small pleural effusion. No pneumothorax. 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 IMPRESSION: Blunting of costophrenic angle posteriorly compatible with small pleural effusion. MACRO: None Signed by: Jono Andrade 06/11/2023 10:44 PM Dictation workstation: [id number] [facility] Work Phone: Radiology Study observation (narrative) [facility] Work Phone: XR Chest 2 ViewsOrdered By: Jono Andrade on 06-11-2023 [facility] Work Phone: Glucose Test strip manual (B ld) [Mass/Vol]on 06-10-2023 Glucose [Mass/Vol] 314 mg/dL High 74 - 99 mg/dL [facility] Interpretation and review of laboratory results Abnormal [facility] Glucose [Mass/Vol] 314 mg/dL High 74-99 [facility] Comment on above: Performed By: #### 5 8077-9 #### CHOI GABRIELLE ([id number]) [facility] ([facility]) [address] [place] [address] Glucose [Mass/Vol] 295 mg/dL High 74 - 99 mg/dL [facility] Interpretation and review of laboratory results Abnormal [facility] Glucose [Mass/Vol] 295 mg/dL High 74-99 [facility] Comment on above: Performed By: #### 5 8077-9 #### JIMBO ANTHONY ([id number]) [facility] ([facility]) [address] [place] [address] Glucose [Mass/Vol] 268 mg/dL High 74 - 99 mg/dL [facility] Interpretation and review of laboratory results Abnormal [facility] Glucose [Mass/Vol] 268 mg/dL High 74-99 [facility] Comment on above: Performed By: #### 5 8077-9 #### JIMBO ANTHONY ([id number]) [facility] ([facility]) [address] [place] [address] VERAB/VERIFY ABORHon 024 ABO group Nom (Bld) O [facility] Comment on above: Order Comment: Thi s is for confirming/verifying history of ABORh on file for transfusion of blood products. If this is not for transfusion, please order an ABO/RH [[id number]]. If you have any questions or unsure what to order, please call the blood bank. Performed By: #### 5 8077-9 #### JIMBO ANTHONY ([id number]) [facility] ([facility]) [address] [place] [address] D Ag Ql (Bld) Positive [facility] Comment on above: Order Comment: Thi s is for confirming/verifying history of ABORh on file for transfusion of blood products. If this is not for transfusion, please order an ABO/RH [[id number]]. If you have any questions or unsure what to order, please call the blood bank. Performed By: #### 5 8077-9 #### JIMBO ANTHONY ([id number]) [facility] ([facility]) [address] [place] [address] VERIFY ABO/Rh Group Teston 0 06-10-2023 ABO group Nom (Bld) O [facility] D Ag Ql (Bld) Positive [facility] FL FLUORO IMAGES NO CHARGEon 06-03-2023 FL FLUORO IMAGES NO CHARGE These images are not reportable by radiology and will not be interpreted by Radiologists. Normal [facility] Glucose Test strip manual (B ld) [Mass/Vol]on 06-03-2023 Glucose [Mass/Vol] 271 mg/dL High 74 - 99 mg/dL [facility] Interpretation and review of laboratory results Abnormal [facility] Glucose [Mass/Vol] 271 mg/dL High 74-99 [facility] Comment on above: Performed By: #### 5 8077-9 #### CHOI GABRIELLE ([id number]) [facility] ([facility]) [address] [place] [address] XR tomography Unspecified pamela dy regionon 06-03-2023 These images are not reportable by radiology and will not be interpreted by Radiologists. IMAGING ECG 12 LeadOrdered By: Chalo Barrios on 06-01-2023 Atrial Rate 69 BPM [facility] Work Phone: P Alpine 39 degrees [facility] Work Phone: P Offset 204 [facility] Work Phone: P Onset 150 ms [facility] Work Phone: [place] Interval 150 ms [facility] Work Phone: Q Onset 225 ms [facility] Work Phone: QRS Count 12 beats [facility] Work Phone: QRS Duration 64 ms [facility] Work Phone: QT Interval 424 ms [facility] Work Phone: QTC Calculation(Bazett) 454 [facility] Work Phone: QTC Fredericia 444 [facility] Work Phone: R Alpine 14 degrees [facility] Work Phone: T Alpine 56 degrees [facility] Work Phone: T Offset 437 ms [facility] Work Phone: Ventricular Rate 69 BPM [facility] Work Phone: [facility] Work Phone: ECG 12 Leadon 06-01-2023 Normal sinus rhythm Low voltage QRS Borderline ECG When compared with ECG of 13-APR-2023 06:33, Sinus rhythm has replaced Ectopic atrial rhythm Vent. rate has decreased BY 66 BPM Nonspecific T wave abnormality no longer evident in Lateral leads Confirmed by Irving Barrios ([id number]) on 06/01/2023 3:17:33 PM Irving Haile MD - 06/01/2023 Normal sinus rhythm Low voltage QRS Borderline ECG When compared with ECG of 13-APR-2023 06:33, Sinus rhythm has replaced Ectopic atrial rhythm Vent. rate has decreased BY 66 BPM Nonspecific T wave abnormality no longer evident in Lateral leads Confirmed by Irving Barrios ([id number]) on 06/01/2023 3:17:33 PM [facility] Work Phone: XR Chest 2 Viewson 4 Cardiomegaly with findings concerning for mild interstitial edema with small bilateral pleural effusions. Recommend correlation with fluid status and cardiac function. MACRO: Critical Finding: See findings. Notification was initiated on 06/01/2023 at 11:[address] Maryan Pollard. (-YCF-) Instructions: Signed by: Maryan Pollard 06/01/2023 11:49 AM Dictation workstation: [id number] [facility]AL Interpreted By: Maryan Pollard, STUDY: XR CHEST 2 VIEWS; ; 05/31/2023 8:17 am INDICATION: Signs/Symptoms:pre-op erative clearance. COMPARISON: Chest radiograph dated 09/22/2021 ACCESSION NUMBER(S): [id number] ORDERING CLINICIAN: FREDY STYLES FINDINGS: Cardiac silhouette is mildly enlarged. There is prominence of interstitial markings in bilateral lungs concerning for mild interstitial edema. There is obliteration of bilateral costophrenic angles and possibility of small bilateral pleural effusions can not be excluded. No dense consolidative airspace opacity is noted. No large pneumothorax. No acute osseous findings. [facility] Maryan Pollard MD - 06/01/2023 Interpreted By: Maryan Pollard, STUDY: XR CHEST 2 VIEWS; ; 05/31/2023 8:17 am INDICATION: Signs/Symptoms:pre-op erative clearance. COMPARISON: Chest radiograph dated 09/22/2021 ACCESSION NUMBER(S): [id number] ORDERING CLINICIAN: FREDY STYLES FINDINGS: Cardiac silhouette is mildly enlarged. There is prominence of interstitial markings in bilateral lungs concerning for mild interstitial edema. There is obliteration of bilateral costophrenic angles and possibility of small bilateral pleural effusions can not be excluded. No dense consolidative airspace opacity is noted. No large pneumothorax. No acute osseous findings. IMPRESSION: Cardiomegaly with findings concerning for mild interstitial edema with small bilateral pleural effusions. Recommend correlation with fluid status and cardiac function. MACRO: Critical Finding: See findings. Notification was initiated on 06/01/2023 at 11:[address] Maryan Pollard. (-YCF-) Instructions: Signed by: Maryan Pollard 06/01/2023 11:49 AM Dictation workstation: [id number] [facility] Work Phone: XR Chest 2 ViewsOrdered By: Maryan Pollard on 06-01-2023 [facility] Work Phone: Blood type and Indirect anti body screen panel (Bld)on 05-31-2023 ABO group Nom (Bld) O Normal [facility] Comment on above: Performed By: #### 2 2883-9 #### JIMBO ANTHONY ([id number]) [facility] ([facility]) [address] [place] [address] Blood group antibody screen Ql Negative Normal [facility] Comment on above: Performed By: #### 2 501-8 #### JIMBO ANTHONY ([id number]) [facility] ([facility]) [address] [place] [address] D Ag Ql (Bld) Positive Normal [facility] Comment on above: Performed By: #### 2 432-8 #### JIMBO ANTHONY ([id number]) [facility] ([facility]) [address] [place] [address] CBC panel Auto (Bld)on 05-31 Erythrocyte distribution width (RBC) [Ratio] 13.3 % Normal 11.5-14.5 [facility] Comment on above: Performed By: #### 2 4322-8 #### JIMBO ANTHONY ([id number]) [facility] ([facility]) [address] [place] [address] Hematocrit (Bld) [Volume fraction] 36.7 % Normal 36.0-46.0 [facility] Comment on above: Performed By: #### 2 4322-8 #### JIMBO ANTHONY ([id number]) [facility] ([facility]) [address] [place] [address] Hemoglobin (Bld) [Mass/Vol] 12.0 g/dL Normal 12.0-16.0 [facility] Comment on above: Performed By: #### 2 4322-8 #### JIMBO ANTHONY ([id number]) [facility] ([facility]) [address] [place], [place] [id number] MCH (RBC) [Entitic mass] 30.0 pg Normal 26.0-34.0 [facility] Comment on above: Performed By: #### 2 4322-8 #### JIMBO ANTHONY ([id number]) [facility] ([facility]) [address] [place] [address]352 MCHC (RBC) [Mass/Vol] 32.7 g/dL Normal 32.0-36.0 [facility] Comment on above: Performed By: #### 2 432-8 #### JIMBO ANTHONY ([id number]) [facility] ([facility]) [address] [place] [address] MCV (RBC) [Entitic vol] 92 fL Normal 80-100 [facility] Comment on above: Performed By: #### 2 4323-8 #### JIMBO ANTHONY ([id number]) [facility] ([facility]) [address] [place] [address] 51622 Nucleated RBC/100 WBC (Bld) [Ratio] 0.0 /100 WBCs Normal 0.0-0.0 [facility] Comment on above: Performed By: #### 2 4323-8 #### JIMBO ANTHONY ([id number]) [facility] ([facility]) [address] [place] [address] 75560 Platelets (Bld) [#/Vol] 97 x10*3/uL Low 150-450 [facility] Comment on above: Performed By: #### 2 432-8 #### JIMBO ANTHONY ([id number]) [facility] ([facility]) [address] [place] [address] 15595 RBC (Bld) [#/Vol] 4.00 x10*6/uL Normal 4.00-5.20 [facility] Comment on above: Performed By: #### 2 432-8 #### JIMBO ANTHONY ([id number]) [facility] ([facility]) [address] [place] [address] 22373 WBC (Bld) [#/Vol] 5.9 x10*3/uL Normal 4.4-11.3 [facility] Comment on above: Performed By: #### 2 4323-8 #### JIMBO ANTHONY ([id number]) [facility] ([facility]) [address] [place] [address] 89588 Comprehensive metabolic 2000 panelon 05-31-2023 Albumin BCP dye [Mass/Vol] 3.1 g/dL Low 3.4-5.0 [facility] Comment on above: Performed By: #### 2 4323-8 #### JIMBO ANTHONY ([id number]) [facility] ([facility]) [address] [place] [address] 44102 ALP [Catalytic activity/Vol] 99 U/L Normal 33-136 [facility] Comment on above: Performed By: #### 2 4323-8 #### JIMBO NATHONY ([id number]) [facility] ([facility]) [address] [place] [address] ALT With P-5'-P [Catalytic activity/Vol] 9 U/L Normal 7-45 [facility] Comment on above: Result Comment: Stephany ents treated with Sulfasalazine may generate falsely decreased results for ALT. Performed By: #### 2 4323-8 #### JIMBO ANTHONY ([id number]) [facility] ([facility]) [address] [place] [address] Anion gap [Moles/Vol] 11 mmol/L Normal 10-20 [facility] Comment on above: Performed By: #### 2 432-8 #### JIMBO ANTHONY ([id number]) [facility] ([facility]) [address] [place] [address] 39316 AST With P-5'-P [Catalytic activity/Vol] 16 U/L Normal 9-39 [facility] Comment on above: Performed By: #### 2 4322-8 #### JIMBO ANTHONY ([id number]) [facility] ([facility]) [address] [place] [address] 16837 Bilirubin [Mass/Vol] 0.4 mg/dL Normal 0.0-1.2 [facility] Comment on above: Performed By: #### 2 432-8 #### JIMBO ANTHONY ([id number]) [facility] ([facility]) [address] [place] [address] 71575 Calcium [Mass/Vol] 8.2 mg/dL Low 8.6-10.3 [facility] Comment on above: Performed By: #### 2 4323-8 #### JIMBO ANTHONY ([id number]) [facility] ([facility]) [address] [place] [address] 91077 Chloride [Moles/Vol] 102 mmol/L Normal 98-107 [facility] Comment on above: Performed By: #### 2 4323-8 #### JIMBO ANTHONY ([id number]) [facility] ([facility]) [address] [place] [address] 46219 CO2 [Moles/Vol] 27 mmol/L Normal 21-32 [facility] Comment on above: Performed By: #### 2 4323-8 #### JIMBO ANTHONY ([id number]) [facility] ([facility]) [address] [place] [address] 88492 Creatinine [Mass/Vol] 1.23 mg/dL High 0.50-1.05 [facility] Comment on above: Performed By: #### 2 4323-8 #### JIMBO ANTHONY ([id number]) [facility] ([facility]) [address] [place] [address] 42056 Glomerular filtration rate/1.73 sq M.predicted 49 mL/min/1.73m*2 Low >60 [facility] Comment on above: Result Comment: Calc ulations of estimated GFR are performed using the 2020 CKD-EPI Study Refit equation without the race variable for the IDMS-Traceable creatinine methods. https://jasn.asnjournals.org/content/early//ASN.28634 68553 Performed By: #### 2 4322-8 #### JIMBO ANTHONY ([id number]) [facility] ([facility]) [address] [place] [address] 86857 Glucose [Mass/Vol] 301 mg/dL High 74-99 [facility] Comment on above: Performed By: #### 2 432-8 #### JIMBO ANTHONY ([id number]) [facility] ([facility]) [address] [place] [address] 14067 Potassium [Moles/Vol] 4.3 mmol/L Normal 3.5-5.3 [facility] Comment on above: Performed By: #### 2 4323-8 #### JIMBO ANTHONY ([id number]) [facility] ([facility]) [address] [place] [address] 62242 Protein [Mass/Vol] 6.4 g/dL Normal 6.4-8.2 [facility] Comment on above: Performed By: #### 2 4322-8 #### JIMBO ANTHONY ([id number]) [facility] ([facility]) [address] [place] [address] 15741 Sodium [Moles/Vol] 136 mmol/L Normal 136-145 [facility] Comment on above: Performed By: #### 2 4323-8 #### CHOI GABRIELLE ([id number]) [facility] ([facility]) [address] [place] [address] 50832 Urea nitrogen [Mass/Vol] 16 mg/dL Normal 6-23 [facility] Comment on above: Performed By: #### 2 4323-8 #### CHOI GABRIELLE ([id number]) [facility] ([facility]) [address] [place] [address] ECG 12-LEADon 05-31-2023 ECG 12-LEAD Ventricular Rate 69 Atrial Rate 69 P-R Interval 150 QRS Duration 64 Q-T Interval 424 QTC Calculation(Bazett) 454 P Alpine 39 R Alpine 14 T Alpine 56 QRS Count 12 Q Onset 225 P Onset 150 P Offset 204 T Offset 437 QTC Fredericia 444 Diagnosis Normal sinus rhythm Low voltage QRS Borderline ECG When compared with ECG of 13-APR-2023 06:33, Sinus rhythm has replaced Ectopic atrial rhythm Vent. rate has decreased BY 66 BPM Nonspecific T wave abnormality no longer evident in Lateral leads Confirmed by Irving Barrios ([id number]) on 06/01/2023 3:17:33 PM Normal [facility] No Panel Informationon 05-31 [place] [address] ext-[phone], Vascular Lab Report [facility] US LOWER EXTREMITY VENOUS DUPLEX LEFT Patient Name: JANELLE Bone Physician: [id number] MD Study Date: 05/31/2023 Ordering Provider: [id number] RYAN MEHTA MRN/PID: [id number] Fellow: Technologist: Rut Alvarenga RVT/AB Date of 1955 Technologist 2: /Age: years Gender: F Admission Status: Outpatient Location [facility] Performed: Diagnosis/ICD: Localized (leg) edema-R60.0 CPT Codes: 26949 Peripheral venous duplex scan for DVT Limited CONCLUSIONS: Right Lower Venous: Right common femoral vein is negative for deep vein thrombus. Left Lower Venous: No evidence of acute deep vein thrombus visualized in the left lower extremity. Imaging & Doppler Findings: Left Compress Thrombus Flow Distal External Iliac Yes None Spontaneous/Phasic CFV Yes None Spontaneous/Phasic PFV Yes None FV Proximal Yes None Spontaneous/Phasic FV Mid Yes None FV Distal Yes None Popliteal Yes None Spontaneous/Phasic Peroneal Yes None PTV Yes None [id number] MD Final Yamilet Ruiz MD - 05/31/2023 [place] [address] ext-[phone], Vascular Lab Report [facility] US LOWER EXTREMITY VENOUS DUPLEX LEFT Patient Name: JANELLE Perri PIYUSH Reading Physician: [id number] [address] MD Study Date: 05/31/2023 Ordering Provider: [id number] RYAN MEHTA MRN/PID: [id number] Fellow: Technologist: Rut Alvarenga RVT/AB Date of 1955 Technologist 2: /Age: years Gender: F Admission Status: Outpatient Location [facility] Performed: Diagnosis/ICD: Localized (leg) edema-R60.0 CPT Codes: 13703 Peripheral venous duplex scan for DVT Limited CONCLUSIONS: Right Lower Venous: Right common femoral vein is negative for deep vein thrombus. Left Lower Venous: No evidence of acute deep vein thrombus visualized in the left lower extremity. Imaging & Doppler Findings: Left Compress Thrombus Flow Distal External Iliac Yes None Spontaneous/Phasic CFV Yes None Spontaneous/Phasic PFV Yes None FV Proximal Yes None Spontaneous/Phasic FV Mid Yes None FV Distal Yes None Popliteal Yes None Spontaneous/Phasic Peroneal Yes None PTV Yes None Albin [address] MD Final [facility] Work Phone: Radiology Study observation (narrative) [facility] Work Phone: No Panel InformationOrdered By: Yamilet Lane on 05-31-2023 [facility] Work Phone: Urinalysis complete panel (U )on 05-31-2023 Appearance (U) Hazy Normal Clear [facility] Comment on above: Performed By: #### 2 4323-8 #### JIMBO ANTHONY ([id number]) [facility] ([facility]) [address] [place] [address] 80883 Bilirubin (U) [Mass/Vol] Negative Normal NEGATIVE [facility] Comment on above: Performed By: #### 2 4323-8 #### JIMBO ANTHONY ([id number]) [facility] ([facility]) [address] [place] [address] 89577 Color (U) Yellow Normal Straw, Yellow [facility] Comment on above: Performed By: #### 2 4323-8 #### JIMBO ANTHONY ([id number]) [facility] ([facility]) [address] [place] [address] 11113 Glucose Auto test strip (U) [Mass/Vol] Negative Normal NEGATIVE [facility] Comment on above: Performed By: #### 2 432-8 #### JIMBO ANTHONY ([id number]) [facility] ([facility]) [address] [place] [address] 53208 Ketones (U) [Mass/Vol] 5 (TRACE) Abnormal NEGATIVE [facility] Comment on above: Performed By: #### 2 4323-8 #### JIMBO ANTHONY ([id number]) [facility] ([facility]) [address] [place] [address] 73363 Leukocyte esterase Auto test strip Ql (U) Negative Normal NEGATIVE [facility] Comment on above: Performed By: #### 2 4323-8 #### JIMBO ANTHONY ([id number]) [facility] ([facility]) [address] [place] [address] 62938 Nitrite Auto test strip Ql (U) Negative Normal NEGATIVE [facility] Comment on above: Performed By: #### 2 3-8 #### JIMBO ANTHONY ([id number]) [facility] ([facility]) [address] [place] [address] 24670 pH (U) 5.0 [pH] Normal 5.0, 5.5, 6.0, 6.5, 7.0, 7.5, 8.0 [facility] Comment on above: Performed By: #### 2 4323-8 #### JIMBO ANTHONY ([id number]) [facility] ([facility]) [address] [place] [address] 85590 Protein (U) [Mass/Vol] >=500 (3+) Normal NEGATIVE [facility] Comment on above: Performed By: #### 2 4323-8 #### JIMBO ANTHONY ([id number]) [facility] ([facility]) [address] [place] [address] 02364 RBC (U) [#/Vol] SMALL (1+) Abnormal NEGATIVE [facility] Comment on above: Performed By: #### 2 4323-8 #### JIMBO ANTHONY ([id number]) [facility] ([facility]) [address] [place] [address] 48539 Specific gravity (U) [Rel density] 1.030 Normal 1.005-1.035 [facility] Comment on above: Performed By: #### 2 4323-8 #### JIMBO ANTHONY ([id number]) [facility] ([facility]) [address] [place] [address] 78934 Urobilinogen (U) [Mass/Vol] 2.0 mg/dL Normal <2.0 [facility] Comment on above: Result Comment: Due to a manufacturing issue, low positive urobilinogen results may be falsely positive. Correlate with urine bilirubin and additional clinical/laboratory findings to assess the risk of hemolytic anemia or liver disease. If clinically indicated, repeat testing with an alternate method is available by contacting the laboratory within 24 hours. Some pigments and medications may cause a false positive urobilinogen. Performed By: #### 2 4323-8 #### JIMBO ANTHONY ([id number]) [facility] ([facility]) [address] [place] [address] 54270 Urinalysis microscopic panel Auto Ql (U)on 05-31-2023 Epithelial cells.squamous Auto (Urine sed) [#/Area] 1-9 (SPARSE) Normal Reference range not established. [facility] Comment on above: Performed By: #### 2 4323-8 #### JIMBO ANTHONY ([id number]) [facility] ([facility]) [address] [place] [address] RBC Auto (Urine sed) [#/Area] 11-20 Abnormal NONE, 1-2, 3-5 [facility] Comment on above: Performed By: #### 2 4323-8 #### JIMBO ANTHONY ([id number]) [facility] ([facility]) [address] [place] [address] WBC Auto (Urine sed) [#/Area] 1-5 Normal 1-5, NONE [facility] Comment on above: Performed By: #### 2 4323-8 #### JIMBO ANTHONY ([id number]) [facility] ([facility]) [address] [place] [address] VASC US LOWER EXTREMITY VENO US DUPLEX LEFTon 05-31-2023 VASC US LOWER EXTREMITY [place] [address] ext-[phone], Vascular Lab Report VASC US LOWER EXTREMITY VENOUS DUPLEX LEFT Patient Name: JANELLESHILA Bone Physician: [id number] MD Study Date: 05/31/2023 Ordering Provider: [id number] RYAN MEHTA MRN/PID: [id number] Fellow: Technologist: Rut Alvarenga RVT/AB Date of 1955 Technologist 2: /Age: years Gender: F Admission Status: Outpatient Location [facility] Performed: Diagnosis/ICD: Localized (leg) edema-R60.0 CPT Codes: 94108 Peripheral venous duplex scan for DVT Limited CONCLUSIONS: Right Lower Venous: Right common femoral vein is negative for deep vein thrombus. Left Lower Venous: No evidence of acute deep vein thrombus visualized in the left lower extremity. Imaging & Doppler Findings: Left Compress Thrombus Flow Distal External Iliac Yes None Spontaneous/Phasic CFV Yes None Spontaneous/Phasic PFV Yes None FV Proximal Yes None Spontaneous/Phasic FV Mid Yes None FV Distal Yes None Popliteal Yes None Spontaneous/Phasic Peroneal Yes None PTV Yes None [id number] MD Final [facility] XR CHEST 2 VIEWSon 4 XR CHEST 2 VIEWS Interpreted By: Maryan Pollard, STUDY: XR CHEST 2 VIEWS; ; 05/31/2023 8:17 am INDICATION: Signs/Symptoms:pre-op erative clearance. COMPARISON: Chest radiograph dated 09/22/2021 ACCESSION NUMBER(S): [id number] ORDERING CLINICIAN: FREDY STYLES FINDINGS: Cardiac silhouette is mildly enlarged. There is prominence of interstitial markings in bilateral lungs concerning for mild interstitial edema. There is obliteration of bilateral costophrenic angles and possibility of small bilateral pleural effusions can not be excluded. No dense consolidative airspace opacity is noted. No large pneumothorax. No acute osseous findings. IMPRESSION: Cardiomegaly with findings concerning for mild interstitial edema with small bilateral pleural effusions. Recommend correlation with fluid status and cardiac function. MACRO: Critical Finding: See findings. Notification was initiated on 06/01/2023 at 11:[address] Maryan Pollard. (-YCF-) Instructions: Signed by: Maryan Pollard 06/01/2023 11:49 AM Dictation workstation: [id number] [facility] XR Chest 2 Viewson 4 Radiology Study observation (narrative) [facility] Work Phone: BI TRANSFER OF OUTSIDE FILMS on 05-19-2023 BI TRANSFER OF OUTSIDE FILMS Outside images for comparison or treatment purposes, not interpreted by Radiologists. [facility] Study Interpretation of outs faye studyon 05-19-2023 Outside images for comparison or treatment purposes, not interpreted by Radiologists. IMAGING BI MAMMO BILATERAL SCREENING TOMOSYNTHESISon 05-18-2023 BI MAMMO BILATERAL SCREENING TOMOSYNTHESIS Interpreted By: Glen Crowley, STUDY: BI MAMMO BILATERAL SCREENING TOMOSYNTHESIS; 05/18/2023 1:40 pm ACCESSION NUMBER(S): [id number] ORDERING CLINICIAN: CALLIE MCDONOUGH INDICATION: Screening. COMPARISON: Digital mammogram dated 11/03/2018 FINDINGS: CC and MLO 2D digital mammograms and digital breast tomosynthesis images were obtained of the bilateral breasts. 3-D volume images were reconstructed in 4 views at an independent workstation as 1 mm slices through the breasts in both the CC and MLO projections. Density: The breast tissue is almost entirely fatty. No discrete mass or focal asymmetry is identified. No suspicious microcalcifications or foci of architectural distortion are seen. There has been no significant change. This study was interpreted with CAD. IMPRESSION: No mammographic evidence of malignancy. BI-RADS CATEGORY: BI-RADS Category: 1 Negative. Recommendation: Routine Screening Mammogram in 1 Year. Recommended Date: 1 Year. Laterality: Bilateral. MACRO: None Signed by: Glen Crowley 05/25/2023 10:13 AM Dictation workstation: [id number] [facility] DEXA BONE DENSITYon 05-18-19 DEXA BONE DENSITY Interpreted By: Glen Crowley, STUDY: DEXA BONE DENSITY05/18/2023 2:04 pm INDICATION: Signs/Symptoms:post menopausal. The patient is a 67 y/o year old F. COMPARISON: None. ACCESSION NUMBER(S): [id number] ORDERING CLINICIAN: CALLIE MCDONOUGH TECHNIQUE: DEXA BONE DENSITY FINDINGS: SPINE L1-L4 Bone Mineral Density: 1.453 T-Score 2.1 Z-Score 3.7 Bone Mineral Density change vs baseline: Not reported Bone Mineral Density change vs previous: Not reported LEFT FEMUR -TOTAL Bone Mineral Density: 1.052 T-Score 0.3 Z-Score 1.6 Bone Mineral Density change vs baseline: Not reported Bone Mineral Density change vs previous: Not reported LEFT FEMUR -NECK Bone Mineral Density: 1.066 T-Score 0.2 Z-Score 1.7 RIGHT FEMUR -TOTAL Bone Mineral Density: 1.008 T-Score 0.0 Z-Score 1.3 Bone Mineral Density change vs baseline: Not reported Bone Mineral Density change vs previous: Not reported RIGHT FEMUR -NECK Bone Mineral Density: 1.098 T-Score 0.4 Z-Score 2.0 World Health Organization (WHO) criteria for post-menopausal, Women: Normal: T-score at or above -1 SD Osteopenia: T-score between -1 and -2.5 SD Osteoporosis: T-score at or below -2.5 SD 10-year Fracture Risk: Major Osteoporotic Fracture 5.9 Hip Fracture 0.2 Note: If no FRAX score is reported, it is because: Some T-score for Spine Total or Hip Total or Femoral Neck at or below -2.5 Vertebral Deformity Assessment: Exam Date - 05/18/2023 2:04 pm -- Vertebral Level Impression -- T4 None T5 None T6 None T7 None T8 None T9 None T10 None T11 None T12 None L1 None L2 None L3 None L4 None -- A spine fracture indicates 5X risk for subsequent spine fracture and 2X risk for subsequent hip fracture. This exam was performed at [facility] on a [employer] Advanced Dexa Unit. IMPRESSION: DEXA: According to World Health Organization criteria, classification is normal. Followup recommended in 2 years or sooner as clinically warranted. VFA: NO VERTEBRAL FRACTURES WERE SEEN. All images and detailed analysis are available on the Radiology PACS. MACRO: None Signed by: Glen Crowley 05/18/2023 2:36 PM Dictation workstation: [id number] [facility] DXA Skeletal system Views fo r bone densityon 05-18-2023 DEXA: According to World Health Organization criteria, classification is normal. Followup recommended in 2 years or sooner as clinically warranted. VFA: NO VERTEBRAL FRACTURES WERE SEEN. All images and detailed analysis are available on the Radiology PACS. MACRO: None Signed by: Glen Crowley 05/18/2023 2:36 PM Dictation workstation: [id number] MMODAL Interpreted By: Glen Crowley, STUDY: DEXA BONE DENSITY05/18/2023 2:04 pm INDICATION: Signs/Symptoms:post menopausal. The patient is a 67 y/o year old F. COMPARISON: None. ACCESSION NUMBER(S): [id number] ORDERING CLINICIAN: CALLIE MCDONOUGH TECHNIQUE: DEXA BONE DENSITY FINDINGS: SPINE L1-L4 Bone Mineral Density: 1.453 T-Score 2.1 Z-Score 3.7 Bone Mineral Density change vs baseline: Not reported Bone Mineral Density change vs previous: Not reported LEFT FEMUR -TOTAL Bone Mineral Density: 1.052 T-Score 0.3 Z-Score 1.6 Bone Mineral Density change vs baseline: Not reported Bone Mineral Density change vs previous: Not reported LEFT FEMUR -NECK Bone Mineral Density: 1.066 T-Score 0.2 Z-Score 1.7 RIGHT FEMUR -TOTAL Bone Mineral Density: 1.008 T-Score 0.0 Z-Score 1.3 Bone Mineral Density change vs baseline: Not reported Bone Mineral Density change vs previous: Not reported RIGHT FEMUR -NECK Bone Mineral Density: 1.098 T-Score 0.4 Z-Score 2.0 World Health Organization (WHO) criteria for post-menopausal, Women: Normal: T-score at or above -1 SD Osteopenia: T-score between -1 and -2.5 SD Osteoporosis: T-score at or below -2.5 SD 10-year Fracture Risk: Major Osteoporotic Fracture 5.9 Hip Fracture 0.2 Note: If no FRAX score is reported, it is because: Some T-score for Spine Total or Hip Total or Femoral Neck at or below -2.5 Vertebral Deformity Assessment: Exam Date - 05/18/2023 2:04 pm -- Vertebral Level Impression -- T4 None T5 None T6 None T7 None T8 None T9 None T10 None T11 None T12 None L1 None L2 None L3 None L4 None -- A spine fracture indicates 5X risk for subsequent spine fracture and 2X risk for subsequent hip fracture. This exam was performed at [facility] on a [employer] Advanced Dexa Unit. [facility] Glen Crowley MD - 05/18/2023 Interpreted By: Glen Crowley, STUDY: DEXA BONE DENSITY05/18/2023 2:04 pm INDICATION: Signs/Symptoms:post menopausal. The patient is a 67 y/o year old F. COMPARISON: None. ACCESSION NUMBER(S): [id number] ORDERING CLINICIAN: CALLIE MCDONOUGH TECHNIQUE: DEXA BONE DENSITY FINDINGS: SPINE L1-L4 Bone Mineral Density: 1.453 T-Score 2.1 Z-Score 3.7 Bone Mineral Density change vs baseline: Not reported Bone Mineral Density change vs previous: Not reported LEFT FEMUR -TOTAL Bone Mineral Density: 1.052 T-Score 0.3 Z-Score 1.6 Bone Mineral Density change vs baseline: Not reported Bone Mineral Density change vs previous: Not reported LEFT FEMUR -NECK Bone Mineral Density: 1.066 T-Score 0.2 Z-Score 1.7 RIGHT FEMUR -TOTAL Bone Mineral Density: 1.008 T-Score 0.0 Z-Score 1.3 Bone Mineral Density change vs baseline: Not reported Bone Mineral Density change vs previous: Not reported RIGHT FEMUR -NECK Bone Mineral Density: 1.098 T-Score 0.4 Z-Score 2.0 World Health Organization (WHO) criteria for post-menopausal, Women: Normal: T-score at or above -1 SD Osteopenia: T-score between -1 and -2.5 SD Osteoporosis: T-score at or below -2.5 SD 10-year Fracture Risk: Major Osteoporotic Fracture 5.9 Hip Fracture 0.2 Note: If no FRAX score is reported, it is because: Some T-score for Spine Total or Hip Total or Femoral Neck at or below -2.5 Vertebral Deformity Assessment: Exam Date - 05/18/2023 2:04 pm -- Vertebral Level Impression -- T4 None T5 None T6 None T7 None T8 None T9 None T10 None T11 None T12 None L1 None L2 None L3 None L4 None -- A spine fracture indicates 5X risk for subsequent spine fracture and 2X risk for subsequent hip fracture. This exam was performed at [facility] on a [employer] Advanced Dexa Unit. IMPRESSION: DEXA: According to World Health Organization criteria, classification is normal. Followup recommended in 2 years or sooner as clinically warranted. VFA: NO VERTEBRAL FRACTURES WERE SEEN. All images and detailed analysis are available on the Radiology PACS. MACRO: None Signed by: Glen Crowley 05/18/2023 2:36 PM Dictation workstation: [id number] [facility] Work Phone: Radiology Study observation (narrative) [facility] Work Phone: DXA Skeletal system Views fo r bone densityOrdered By: Glen Crowley on 05-18-2023 [facility] Work Phone: MR KNEE LEFT WO IV CONTRASTo n 05-13-2023 MR KNEE LEFT WO IV CONTRAST Interpreted By: Tali Humphries, STUDY: MRI of the left knee without IV contrast; 05/13/2023 9:00 am INDICATION: Signs/Symptoms:pain, no relief with conservative measures. COMPARISON: Radiographs 04/04/2023. ACCESSION NUMBER(S): [id number] ORDERING CLINICIAN: SHADIA DALEY TECHNIQUE: MR imaging of the left knee was obtained without IV contrast. FINDINGS: LIGAMENTS AND TENDONS: ACL: Intact. PCL: Intact. MCL: Intact. LCL complex: Intact. Quadriceps and patellar tendons: Intact. MENISCI: Medial meniscus: Intact. Lateral meniscus: Intact. JOINTS: Medial compartment: Small to moderate area of full-thickness cartilage loss along the posterior medial femoral condyle with subtle subchondral cystic change. Additional small areas of partial and full-thickness cartilage loss in the medial femoral condyle and medial tibial plateau articulating surfaces. Lateral compartment: No significant cartilage defect. Patellofemoral compartment: Full-thickness chondral fissuring in the central trochlea with subchondral cystic change. No patellar subluxation. Joint fluid: Small joint effusion with minimal synovitis. Popliteal cyst: Miniscule. OSSEOUS STRUCTURES: No focal marrow replacing lesion. No fracture. SOFT TISSUES: No muscle atrophy or tear. Common peroneal nerve is intact. IMPRESSION: Raed-zu-vqyrgikm medial compartment osteoarthritis. Intact tendons, ligaments and menisci. MACRO: None Signed by: Tali Humphries 05/13/2023 9:34 AM Dictation workstation: [id number] [facility] MR Knee - left WO contraston 05-13-2023 Xmjk-mj-ruhxcvhm medial compartment osteoarthritis. Intact tendons, ligaments and menisci. MACRO: None Signed by: Tali Humphries 05/13/2023 9:34 AM Dictation workstation: [id number] MMODAL Interpreted By: Tali Humphries, STUDY: MRI of the left knee without IV contrast; 05/13/2023 9:00 am INDICATION: Signs/Symptoms:pain, no relief with conservative measures. COMPARISON: Radiographs 04/04/2023. ACCESSION NUMBER(S): [id number] ORDERING CLINICIAN: SHADIA DALEY TECHNIQUE: MR imaging of the left knee was obtained without IV contrast. FINDINGS: LIGAMENTS AND TENDONS: ACL: Intact. PCL: Intact. MCL: Intact. LCL complex: Intact. Quadriceps and patellar tendons: Intact. MENISCI: Medial meniscus: Intact. Lateral meniscus: Intact. JOINTS: Medial compartment: Small to moderate area of full-thickness cartilage loss along the posterior medial femoral condyle with subtle subchondral cystic change. Additional small areas of partial and full-thickness cartilage loss in the medial femoral condyle and medial tibial plateau articulating surfaces. Lateral compartment: No significant cartilage defect. Patellofemoral compartment: Full-thickness chondral fissuring in the central trochlea with subchondral cystic change. No patellar subluxation. Joint fluid: Small joint effusion with minimal synovitis. Popliteal cyst: Miniscule. OSSEOUS STRUCTURES: No focal marrow replacing lesion. No fracture. SOFT TISSUES: No muscle atrophy or tear. Common peroneal nerve is intact. [facility] Tali Humphries, DO - 05/13/2023 Interpreted By: Tali Humphries, STUDY: MRI of the left knee without IV contrast; 05/13/2023 9:00 am INDICATION: Signs/Symptoms:pain, no relief with conservative measures. COMPARISON: Radiographs 04/04/2023. ACCESSION NUMBER(S): [id number] ORDERING CLINICIAN: SHADIA DALEY TECHNIQUE: MR imaging of the left knee was obtained without IV contrast. FINDINGS: LIGAMENTS AND TENDONS: ACL: Intact. PCL: Intact. MCL: Intact. LCL complex: Intact. Quadriceps and patellar tendons: Intact. MENISCI: Medial meniscus: Intact. Lateral meniscus: Intact. JOINTS: Medial compartment: Small to moderate area of full-thickness cartilage loss along the posterior medial femoral condyle with subtle subchondral cystic change. Additional small areas of partial and full-thickness cartilage loss in the medial femoral condyle and medial tibial plateau articulating surfaces. Lateral compartment: No significant cartilage defect. Patellofemoral compartment: Full-thickness chondral fissuring in the central trochlea with subchondral cystic change. No patellar subluxation. Joint fluid: Small joint effusion with minimal synovitis. Popliteal cyst: Miniscule. OSSEOUS STRUCTURES: No focal marrow replacing lesion. No fracture. SOFT TISSUES: No muscle atrophy or tear. Common peroneal nerve is intact. IMPRESSION: Blud-ok-zhwykbhh medial compartment osteoarthritis. Intact tendons, ligaments and menisci. MACRO: None Signed by: Tali Humphries 05/13/2023 9:34 AM Dictation workstation: [id number] [facility] Work Phone: Radiology Study observation (narrative) [facility] Work Phone: MR Knee - left WO contrastOr dered By: Tali Humphries on 05-13-2023 [facility] Work Phone: No Panel InformationOrdered By: Mignon Hauser on 04-20-2023 Atrial Rate 137 BPM [facility] Work Phone: P Offset 205 ms [facility] Work Phone: P Onset 178 [facility] Work Phone: [place] Interval 82 ms [facility] Work Phone: Q Onset 219 ms [facility] Work Phone: QRS Count 22 beats [facility] Work Phone: QRS Duration 62 ms [facility] Work Phone: QT Interval 376 ms [facility] Work Phone: QTC Calculation(Bazett) 567 ms [facility] Work Phone: QTC Fredericia 495 [facility] Work Phone: R Alpine -6 degrees [facility] Work Phone: T Alpine 7 degrees [facility] Work Phone: T Offset 407 ms [facility] Work Phone: Ventricular Rate 137 BPM [facility] Work Phone: [facility] Work Phone: No Panel Informationon 04-20 Sinus tachycardia with short [place] Low voltage QRS Borderline ECG When compared with ECG of 04-APR-2023 12:43, (unconfirmed) Questionable change in QRS axis ST no longer depressed in Inferior leads ST no longer depressed in Anterolateral leads See ED provider note for full interpretation and clinical correlation Confirmed by Mignon Hauser ([id number]) on 04/20/2023 3:06:17 PM Mignon Gardiner PA-C - 05/09/2023 Sinus tachycardia with short [place] Low voltage QRS Borderline ECG When compared with ECG of 04-APR-2023 12:43, (unconfirmed) Questionable change in QRS axis ST no longer depressed in Inferior leads ST no longer depressed in Anterolateral leads See ED provider note for full interpretation and clinical correlation Confirmed by Mignon Hauser ([id number]) on 04/20/2023 3:06:17 PM [facility] Work Phone: CBC panel Auto (Bld)on 04-14 Erythrocyte distribution width (RBC) [Ratio] 13.6 % 11.5 - 14.5 % [facility] Hematocrit (Bld) [Volume fraction] 36.7 % 36.0 - 46.0 % [facility] Hemoglobin (Bld) [Mass/Vol] 12.0 g/dL 12.0 - 16.0 g/dL [facility] Interpretation and review of laboratory results Abnormal [facility] MCH (RBC) [Entitic mass] 30.5 pg 26.0 - 34.0 pg [facility] MCHC (RBC) [Mass/Vol] 32.7 g/dL 32.0 - 36.0 g/dL [facility] MCV (RBC) [Entitic vol] 93 fL 80 - 100 fL [facility] Nucleated RBC/100 WBC (Bld) [Ratio] 0.0 % [facility] Platelets (Bld) [#/Vol] 93 10*3/uL Low [facility] RBC (Bld) [#/Vol] 3.93 10*6/uL Low [facility] WBC (Bld) [#/Vol] 6.5 10*3/uL [facility] Erythrocyte distribution width (RBC) [Ratio] 13.6 % Normal 11.5-14.5 [facility] Comment on above: Performed By: #### 5 7021-8 #### JIMBO ANTHONY ([id number]) [facility] ([facility]) [address] [place] [address] Hematocrit (Bld) [Volume fraction] 36.7 % Normal 36.0-46.0 [facility] Comment on above: Performed By: #### 5 7021-8 #### JIMBO ANTHONY ([id number]) [facility] ([facility]) [address] [place] [address] Hemoglobin (Bld) [Mass/Vol] 12.0 g/dL Normal 12.0-16.0 [facility] Comment on above: Performed By: #### 5 7021-8 #### JIMBO ANTHONY ([id number]) [facility] ([facility]) [address] [place] [address] MCH (RBC) [Entitic mass] 30.5 pg Normal 26.0-34.0 [facility] Comment on above: Performed By: #### 5 7021-8 #### JIMBO ANTHONY ([id number]) [facility] ([facility]) [address] [place], [place] [id number] MCHC (RBC) [Mass/Vol] 32.7 g/dL Normal 32.0-36.0 [facility] Comment on above: Performed By: #### 5 7021-8 #### JIMBO ANTHONY ([id number]) [facility] ([facility]) [address] [place] [address] MCV (RBC) [Entitic vol] 93 fL Normal 80-100 [facility] Comment on above: Performed By: #### 5 7021-8 #### JIMBO ANTHONY ([id number]) [facility] ([facility]) [address] [place] [address] 23273 Nucleated RBC/100 WBC (Bld) [Ratio] 0.0 /100 WBCs Normal 0.0-0.0 [facility] Comment on above: Performed By: #### 5 7021-8 #### JIMBO ANTHONY ([id number]) [facility] ([facility]) [address] [place] [address] 15233 Platelets (Bld) [#/Vol] 93 x10*3/uL Low 150-450 [facility] Comment on above: Performed By: #### 5 7021-8 #### JIMBO ANTHONY ([id number]) [facility] ([facility]) [address] [place] [address] 41441 RBC (Bld) [#/Vol] 3.93 x10*6/uL Low 4.00-5.20 [facility] Comment on above: Performed By: #### 5 7021-8 #### JIMBO ANTHONY ([id number]) [facility] ([facility]) [address] [place] [address] 04117 WBC (Bld) [#/Vol] 6.5 x10*3/uL Normal 4.4-11.3 [facility] Comment on above: Performed By: #### 5 7021-8 #### JIMBO ANTHONY ([id number]) [facility] ([facility]) [address] [place] [address] 46810 Comprehensive metabolic 2000 panelon 04-14-2023 Albumin BCP dye [Mass/Vol] 2.9 g/dL Low 3.4 - 5.0 g/dL [facility] ALP [Catalytic activity/Vol] 90 U/L 33 - 136 U/L [facility] ALT With P-5'-P [Catalytic activity/Vol] 17 U/L 7 - 45 U/L [facility] Comment on above: Patients treated wit h Sulfasalazine may generate falsely decreased results for ALT. Anion gap [Moles/Vol] 10 mmol/L 10 - 2 0 mmol/L [facility] AST With P-5'-P [Catalytic activity/Vol] 16 U/L 9 - 39 U/L [facility] Bilirubin [Mass/Vol] 0.3 mg/dL 0.0 - 1 .2 mg/dL [facility] Calcium [Mass/Vol] 8.0 mg/dL Low 8.6 - 10. 3 mg/dL [facility] Chloride [Moles/Vol] 103 mmol/L 98 - 10 7 mmol/L [facility] CO2 [Moles/Vol] 28 mmol/L 21 - 32 mmol/L [facility] Creatinine [Mass/Vol] 1.07 mg/dL High 0.50 - 1.05 mg/dL [facility] GFR/1.73 sq M.predicted MDRD (S/P/Bld) [Vol rate/Area] 57 mL/min/{1.73_m2} Low - PINF [facility] Comment on above: Calculations of roxann mated GFR are performed using the 2020 CKD-EPI Study Refit equation without the race variable for the IDMS-Traceable creatinine methods. https://jasn.asnjournals.org/content//ASN.03501 36031 Glucose [Mass/Vol] 129 mg/dL High 74 - 99 mg/dL [facility] Interpretation and review of laboratory results Abnormal [facility] Potassium [Moles/Vol] 4.0 mmol/L 3.5 - 5.3 mmol/L [facility] Protein [Mass/Vol] 5.6 g/dL Low 6.4 - 8.2 g/dL [facility] Sodium [Moles/Vol] 137 mmol/L 136 - 145 mmol/L [facility] Urea nitrogen [Mass/Vol] 13 mg/dL 6 - 23 mg/dL [facility] Albumin BCP dye [Mass/Vol] 2.9 g/dL Low 3.4-5.0 [facility] Comment on above: Performed By: #### 5 7021-8 #### JIMBO ANTHONY ([id number]) [facility] ([facility]) [address] [place] [address] ALP [Catalytic activity/Vol] 90 U/L Normal 33-136 [facility] Comment on above: Performed By: #### 5 7021-8 #### JIMBO ANTHONY ([id number]) [facility] ([facility]) [address] [place] [address] ALT With P-5'-P [Catalytic activity/Vol] 17 U/L Normal 7-45 [facility] Comment on above: Result Comment: Stephany ents treated with Sulfasalazine may generate falsely decreased results for ALT. Performed By: #### 5 7021-8 #### JIMBO ANTHONY ([id number]) [facility] ([facility]) [address] [place] [address] Anion gap [Moles/Vol] 10 mmol/L Normal 10-20 [facility] Comment on above: Performed By: #### 5 7021-8 #### JIMBO ANTHONY ([id number]) [facility] ([facility]) [address] [place] [address] AST With P-5'-P [Catalytic activity/Vol] 16 U/L Normal 9-39 [facility] Comment on above: Performed By: #### 5 7021-8 #### JIMBO ANTHONY ([id number]) [facility] ([facility]) [address] [place] [address] Bilirubin [Mass/Vol] 0.3 mg/dL Normal 0.0-1.2 [facility] Comment on above: Performed By: #### 5 7021-8 #### JIMBO ANTHONY ([id number]) [facility] ([facility]) [address] [place] [address] Calcium [Mass/Vol] 8.0 mg/dL Low 8.6-10.3 [facility] Comment on above: Performed By: #### 5 7021-8 #### JIMBO ANTHONY ([id number]) [facility] ([facility]) [address] [place] [address] Chloride [Moles/Vol] 103 mmol/L Normal 98-107 [facility] Comment on above: Performed By: #### 5 7021-8 #### JIMBO ANTHONY ([id number]) [facility] ([facility]) [address] [place] [address] CO2 [Moles/Vol] 28 mmol/L Normal 21-32 [facility] Comment on above: Performed By: #### 5 7021-8 #### JIMBO ANTHONY ([id number]) [facility] ([facility]) [facility] [place] [address] Creatinine [Mass/Vol] 1.07 mg/dL High 0.50-1.05 [facility] Comment on above: Performed By: #### 5 7021-8 #### JIMBO ANTHONY ([id number]) [facility] ([facility]) [address] [place] [address]53 GFR/1.73 sq M.predicted MDRD (S/P/Bld) [Vol rate/Area] 57 mL/min/1.73m*2 Low >60 [facility] Comment on above: Result Comment: Calc ulations of estimated GFR are performed using the 2020 CKD-EPI Study Refit equation without the race variable for the IDMS-Traceable creatinine methods. https://jasn.asnjournals.org/content/early//ASN.24094 54428 Performed By: #### 5 7021-8 #### JIMBO ANTHONY ([id number]) [facility] ([facility]) [address] [place] [address]17 Glucose [Mass/Vol] 129 mg/dL High 74-99 [facility] Comment on above: Performed By: #### 5 7021-8 #### JIMBO ANTHONY ([id number]) [facility] ([facility]) [address] [place] [address] 62119 Potassium [Moles/Vol] 4.0 mmol/L Normal 3.5-5.3 [facility] Comment on above: Performed By: #### 5 7021-8 #### JIMBO ANTHONY ([id number]) [facility] ([facility]) [facility] [place] [address] Protein [Mass/Vol] 5.6 g/dL Low 6.4-8.2 [facility] Comment on above: Performed By: #### 5 7021-8 #### JIMBO ANTHONY ([id number]) [facility] ([facility]) [address] [place] [address] Sodium [Moles/Vol] 137 mmol/L Normal 136-145 [facility] Comment on above: Performed By: #### 5 7021-8 #### JIMBO ANTHONY ([id number]) [facility] ([facility]) [address] [place] [address] 56770 Urea nitrogen [Mass/Vol] 13 mg/dL Normal 6-23 [facility] Comment on above: Performed By: #### 5 7021-8 #### JIMBO ANTHONY ([id number]) [facility] ([facility]) [address] [place] [address] Glucose Test strip manual (B ld) [Mass/Vol]on 04-14-2023 Glucose [Mass/Vol] 207 mg/dL High 74 - 99 mg/dL [facility] Interpretation and review of laboratory results Abnormal [facility] Glucose [Mass/Vol] 207 mg/dL High 74-99 [facility] Comment on above: Performed By: #### 5 7021-8 #### JIMBO ANTHONY ([id number]) [facility] ([facility]) [address] [place] [address] Glucose [Mass/Vol] 122 mg/dL High 74 - 99 mg/dL [facility] Interpretation and review of laboratory results Abnormal [facility] Glucose [Mass/Vol] 122 mg/dL High 74-99 [facility] Comment on above: Performed By: #### 5 7021-8 #### JIMBO ANTHONY ([id number]) [facility] ([facility]) [address] [place], [place] [id number] HbA1c (Bld) [Mass fraction]o n 04-14-2023 Average glucose Estimated from glycated hemoglobin (Bld) [Mass/Vol] 157 mg/dL Not Established [facility] Interpretation and review of laboratory results Abnormal [facility] Diagnosis of Diabetes-Adults Non-Diabetic: < or = 5.6% Increased risk for developing diabetes: 5.7-6.4% Diagnostic of diabetes: > or = 6.5% Monitoring of Diabetes Age (y).................. ..... Therapeutic Goal (%) Adults: >18.................. .......<7.0 Pediatrics: 13-18................ ...<7.5 Pediatrics: 7-12................. ...<8.0 Pediatrics: 0-6.................. ... 7.5-8.5 [place] [employer]. Diabetes Care 33(S1), Apr 2009 [facility] Average glucose Estimated from glycated hemoglobin (Bld) [Mass/Vol] 157 mg/dL Normal Not Established [facility] Comment on above: Order Comment: Diagn osis of Sdnvcurx-HldbjqFsk-Pdlarlsk: < or = 5.6%Increased risk for developing diabetes: 5.7-6.4%Diagnostic of diabetes: > or = 6.5%Monitoring of DiabetesAge (y)....................... Therapeutic Goal (%)Adults: >18.........................<7.0Pediatrics: 13-18...................<7.5Pediatrics: 7-12....................<8.0Pediatrics: 0-6..................... 7.5-8.5American Diabetes Association. Diabetes Care 33(S1), Apr 2009 Performed By: #### 5 7021-8 #### CHOI GABRIELLE ([id number]) [facility] ([facility]) [address] [place] [address] Hemoglobin A1Con 04-14-2023 HbA1c (Bld) [Mass fraction] 7.1 % High see below [facility] Hemoglobin A1c/Hemoglobin.to camilo 04-14-2023 HbA1c (Bld) [Mass fraction] 7.1 % High see below [facility] Comment on above: Order Comment: Diagn osis of Tncdibak-GcrfedSgl-Rllqtxcj: < or = 5.6%Increased risk for developing diabetes: 5.7-6.4%Diagnostic of diabetes: > or = 6.5%Monitoring of DiabetesAge (y)....................... Therapeutic Goal (%)Adults: >18.........................<7.0Pediatrics: 13-18...................<7.5Pediatrics: 7-12....................<8.0Pediatrics: 0-6..................... 7.5-8.5American Diabetes Association. Diabetes Care 33(S1), Apr 2009 Performed By: #### 5 7021-8 #### CHOI GABRIELLE ([id number]) [facility] ([facility]) [address] [place] [address] Lower extremity venous duple x lefton 04-14-2023 [place] [address] [phone], Vascular Lab Report [facility] LOWER EXTREMITY VENOUS DUPLEX LEFT Patient Name: JANELLE Bone Physician: [id number] Christian Hannah MD Study Date: 04/13/2023 Ordering Provider: [id number] WILLA DEL CASTILLO MRN/PID: [id number] Fellow: Technologist: Desi Chen RVT Date of /Age: 408/06/1955 / 67 years Technologist 2: Gender: F Admission Status: Inpatient Location Performed: [facility] Diagnosis/ICD: Pain in left leg-M79.605 Indication: Limb pain. CPT Codes: 89934 Peripheral venous duplex scan for DVT Limited Pertinent History: Leg pain. CONCLUSIONS: Right Lower Venous: Right common femoral vein is negative for deep vein thrombus. Left Lower Venous: No evidence of acute deep vein thrombus visualized in the left lower extremity. Comparison: Compared with study from 10/02/2021, no significant change. Imaging & Doppler Findings: Right Compressible Thrombus Flow CFV Yes None Spontaneous/Phasic Left Compress Thrombus Flow Distal External Iliac Spontaneous/Phasic CFV Yes None Spontaneous/Phasic PFV Yes None FV Proximal Yes None Spontaneous/Phasic FV Mid Yes None FV Distal Yes None Popliteal Yes None Spontaneous/Phasic Peroneal Yes None PTV Yes None [id number] Christian Hannah MD Final SYNGO Christian Jc MD - 04/14/2023 [place] [address] [phone], Vascular Lab Report VASC US LOWER EXTREMITY VENOUS DUPLEX LEFT Patient Name: JANELLE PICKETT Reading Physician: [id number] Christian Hannah MD Study Date: 04/13/2023 Ordering Provider: [id number] WILLA DEL CASTILLO MRN/PID: [id number] Fellow: Technologist: Desi Chen RVT Date of /Age: 408/06/1955 / 67 years Technologist 2: Gender: F Admission Status: Inpatient Location Performed: [facility] Diagnosis/ICD: Pain in left leg-M79.605 Indication: Limb pain. CPT Codes: 33016 Peripheral venous duplex scan for DVT Limited Pertinent History: Leg pain. CONCLUSIONS: Right Lower Venous: Right common femoral vein is negative for deep vein thrombus. Left Lower Venous: No evidence of acute deep vein thrombus visualized in the left lower extremity. Comparison: Compared with study from 10/02/2021, no significant change. Imaging & Doppler Findings: Right Compressible Thrombus Flow CFV Yes None Spontaneous/Phasic Left Compress Thrombus Flow Distal External Iliac Spontaneous/Phasic CFV Yes None Spontaneous/Phasic PFV Yes None FV Proximal Yes None Spontaneous/Phasic FV Mid Yes None FV Distal Yes None Popliteal Yes None Spontaneous/Phasic Peroneal Yes None PTV Yes None [id number] Christian Hannah MD Final [facility] Work Phone: Lower extremity venous duple x leftOrdered By: Christian Luevano on 04-14-2023 [facility] Work Phone: Magnesiumon 04-14-2023 Magnesium [Mass/Vol] 1.78 mg/dL 1.60 - 2.40 mg/dL [facility] Magnesium [Mass/Vol] 1.78 mg/dL Normal 1.60-2.40 [facility] Comment on above: Performed By: #### 5 7021-8 #### CHOI GABRIELLE ([id number]) [facility] ([facility]) [address] [place] [address] Magnesium [Mass/Vol]on 04-14 Interpretation and review of laboratory results Normal [facility] No Panel Informationon 04-14 [facility] APTTon 04-13-2023 aPTT Coag (PPP) [Time] 32 s [facility] Basic metabolic 2000 panelon 04-13-2023 Anion gap [Moles/Vol] 12 mmol/L 10 - 2 0 mmol/L [facility] Calcium [Mass/Vol] 8.2 mg/dL Low 8.6 - 10. 3 mg/dL [facility] Chloride [Moles/Vol] 104 mmol/L 98 - 10 7 mmol/L [facility] CO2 [Moles/Vol] 26 mmol/L 21 - 32 mmol/L [facility] Creatinine [Mass/Vol] 0.97 mg/dL 0.50 - 1.05 mg/dL [facility] GFR/1.73 sq M.predicted MDRD (S/P/Bld) [Vol rate/Area] 65 mL/min/{1.73_m2} - PINF [facility] Comment on above: Calculations of roxann mated GFR are performed using the 2020 CKD-EPI Study Refit equation without the race variable for the IDMS-Traceable creatinine methods. https://jasn.asnjournals.org/content//ASN.32412 01414 Glucose [Mass/Vol] 221 mg/dL High 74 - 99 mg/dL [facility] Potassium [Moles/Vol] 3.8 mmol/L 3.5 - 5.3 mmol/L [facility] Sodium [Moles/Vol] 138 mmol/L 136 - 145 mmol/L [facility] Urea nitrogen [Mass/Vol] 10 mg/dL 6 - 23 mg/dL [facility] Anion gap [Moles/Vol] 12 mmol/L Normal 10-20 [facility] Comment on above: Performed By: #### 5 902-2 #### JIMBO ANTHONY ([id number]) [facility] ([facility]) [facility] [place] [address] Calcium [Mass/Vol] 8.2 mg/dL Low 8.6-10.3 [facility] Comment on above: Performed By: #### 5 902-2 #### JIMBO ANTHONY ([id number]) [facility] ([facility]) [address] [place] [address] Chloride [Moles/Vol] 104 mmol/L Normal 98-107 [facility] Comment on above: Performed By: #### 5 902-2 #### JIMBO ANTHONY ([id number]) [facility] ([facility]) [facility] [place] [address] CO2 [Moles/Vol] 26 mmol/L Normal 21-32 [facility] Comment on above: Performed By: #### 5 902-2 #### JIMBO ANTHONY ([id number]) [facility] ([facility]) [address] [place] [address] Creatinine [Mass/Vol] 0.97 mg/dL Normal 0.50-1.05 [facility] Comment on above: Performed By: #### 5 902-2 #### JIMBO ANTHONY ([id number]) [facility] ([facility]) [address] [place] [address] GFR/1.73 sq M.predicted MDRD (S/P/Bld) [Vol rate/Area] 65 mL/min/1.73m*2 Normal >60 [facility] Comment on above: Result Comment: Calc ulations of estimated GFR are performed using the 2020 CKD-EPI Study Refit equation without the race variable for the IDMS-Traceable creatinine methods. https://jasn.asnjournals.org/content/early//ASN.22721 52514 Performed By: #### 5 902-2 #### JIMBO ANTHONY ([id number]) [facility] ([facility]) [address] [place] [address] Glucose [Mass/Vol] 221 mg/dL High 74-99 [facility] Comment on above: Performed By: #### 5 902-2 #### JIMBO ANTHONY ([id number]) [facility] ([facility]) [address] [place] [address] Potassium [Moles/Vol] 3.8 mmol/L Normal 3.5-5.3 [facility] Comment on above: Performed By: #### 5 902-2 #### JIMBO ANTHONY ([id number]) [facility] ([facility]) [address] [place] [address] Sodium [Moles/Vol] 138 mmol/L Normal 136-145 [facility] Comment on above: Performed By: #### 5 902-2 #### JIMOB ANTHONY ([id number]) [facility] ([facility]) [address] [place] [address] Urea nitrogen [Mass/Vol] 10 mg/dL Normal 6-23 [facility] Comment on above: Performed By: #### 5 902-2 #### JIMBO RIVASMISTY ([id number]) [facility] ([facility]) [address] [place] [address] CBC W Auto Differential pane l (Bld)on 04-13-2023 Basophils (Bld) [#/Vol] 0.03 10*3/uL [facility] Basophils/100 WBC (Bld) 0.4 % 0.0 - 2.0 % [facility] Eosinophils (Bld) [#/Vol] 0.04 10*3/uL [facility] Eosinophils/100 WBC (Bld) 0.5 % 0.0 - 6.0 % [facility] Erythrocyte distribution width (RBC) [Ratio] 13.4 % 11.5 - 14.5 % [facility] Hematocrit (Bld) [Volume fraction] 39.6 % 36.0 - 46.0 % [facility] Hemoglobin (Bld) [Mass/Vol] 13.4 g/dL 12.0 - 16.0 g/dL [facility] Immature granulocytes (Bld) [#/Vol] 0.08 10*3/uL [facility] Immature granulocytes/100 WBC (Bld) 1.0 % High 0.0 - 0.9 % [facility] Comment on above: Immature Granulocyte Count (IG) includes promyelocytes, myelocytes and metamyelocytes but does not include bands. Percent differential counts (%) should be interpreted in the context of the absolute cell counts (cells/UL). Interpretation and review of laboratory results Abnormal [facility] Lymphocytes (Bld) [#/Vol] 1.70 10*3/uL [facility] Lymphocytes/100 WBC (Bld) 22.1 % 13.0 - 44.0 % [facility] MCH (RBC) [Entitic mass] 30.7 pg 26.0 - 34.0 pg [facility] MCHC (RBC) [Mass/Vol] 33.8 g/dL 32.0 - 36.0 g/dL [facility] MCV (RBC) [Entitic vol] 91 fL 80 - 100 fL [facility] Monocytes (Bld) [#/Vol] 0.56 10*3/uL [facility] Monocytes/100 WBC (Bld) 7.3 % 2.0 - 10.0 % [facility] Neutrophils (Bld) [#/Vol] 5.28 10*3/uL [facility] Comment on above: Percent differential counts (%) should be interpreted in the context of the absolute cell counts (cells/uL). Neutrophils/100 WBC (Bld) 68.7 % 40.0 - 80.0 % [facility] Nucleated RBC/100 WBC (Bld) [Ratio] 0.0 % [facility] Platelets (Bld) [#/Vol] 111 10*3/uL Low [facility] RBC (Bld) [#/Vol] 4.37 10*6/uL [facility] WBC (Bld) [#/Vol] 7.7 10*3/uL [facility] Basophils (Bld) [#/Vol] 0.03 x10*3/uL Normal 0.00-0.10 [facility] Comment on above: Performed By: #### 5 902-2 #### JIMBO ANTHONY ([id number]) [facility] ([facility]) [address] [place] [address] Basophils/100 WBC (Bld) 0.4 % Normal 0.0-2.0 [facility] Comment on above: Performed By: #### 5 902-2 #### JIMBO ANTHONY ([id number]) [facility] ([facility]) [address] [place] [address] Eosinophils (Bld) [#/Vol] 0.04 x10*3/uL Normal 0.00-0.70 [facility] Comment on above: Performed By: #### 5 902-2 #### JIMBO ANTHONY ([id number]) [facility] ([facility]) [address] [place] [address] Eosinophils/100 WBC (Bld) 0.5 % Normal 0.0-6.0 [facility] Comment on above: Performed By: #### 5 902-2 #### JIMBO ANTHONY ([id number]) [facility] ([facility]) [address] [place] [address] Erythrocyte distribution width (RBC) [Ratio] 13.4 % Normal 11.5-14.5 [facility] Comment on above: Performed By: #### 5 902-2 #### JIMBO ANTHONY ([id number]) [facility] ([facility]) [address] [place] [address] Hematocrit (Bld) [Volume fraction] 39.6 % Normal 36.0-46.0 [facility] Comment on above: Performed By: #### 5 902-2 #### JIMBO ANTHONY ([id number]) [facility] ([facility]) [address] [place] [address] Hemoglobin (Bld) [Mass/Vol] 13.4 g/dL Normal 12.0-16.0 [facility] Comment on above: Performed By: #### 5 902-2 #### JIMBO ANTHONY ([id number]) [facility] ([facility]) [address] [place], [place] [id number] Immature granulocytes (Bld) [#/Vol] 0.08 x10*3/uL Normal 0.00-0.70 [facility] Comment on above: Performed By: #### 5 902-2 #### JIMBO ANTHONY ([id number]) [facility] ([facility]) [address] [place], [place] [phone] Immature granulocytes/100 WBC (Bld) 1.0 % High 0.0-0.9 [facility] Comment on above: Result Comment: Mira ture Granulocyte Count (IG) includes promyelocytes, myelocytes and metamyelocytes but does not include bands. Percent differential counts (%) should be interpreted in the context of the absolute cell counts (cells/UL). Performed By: #### 5 902-2 #### JIMBO ANTHONY ([id number]) [facility] ([facility]) [address] [place], [place] [phone] Lymphocytes (Bld) [#/Vol] 1.70 x10*3/uL Normal 1.20-4.80 [facility] Comment on above: Performed By: #### 5 902-2 #### JIMBO ANTHONY ([id number]) [facility] ([facility]) [address] [place] [address] Lymphocytes/100 WBC (Bld) 22.1 % Normal 13.0-44.0 [facility] Comment on above: Performed By: #### 5 902-2 #### JIMBO ANTHONY ([id number]) [facility] ([facility]) [address] [place] [address] MCH (RBC) [Entitic mass] 30.7 pg Normal 26.0-34.0 [facility] Comment on above: Performed By: #### 5 902-2 #### JIMBO ANTHONY ([id number]) [facility] ([facility]) [address] [place] [address] MCHC (RBC) [Mass/Vol] 33.8 g/dL Normal 32.0-36.0 [facility] Comment on above: Performed By: #### 5 902-2 #### JIMBO ANTHONY ([id number]) [facility] ([facility]) [address] [place] [address] MCV (RBC) [Entitic vol] 91 fL Normal 80-100 [facility] Comment on above: Performed By: #### 5 902-2 #### JIMBO ANTHONY ([id number]) [facility] ([facility]) [facility] [place] [address] Monocytes (Bld) [#/Vol] 0.56 x10*3/uL Normal 0.10-1.00 [facility] Comment on above: Performed By: #### 5 902-2 #### JIMBO ANTHONY ([id number]) [facility] ([facility]) [address] [place] [address] Monocytes/100 WBC (Bld) 7.3 % Normal 2.0-10.0 [facility] Comment on above: Performed By: #### 5 902-2 #### JIMBO ANTHONY ([id number]) [facility] ([facility]) [address] [place] [address] Neutrophils (Bld) [#/Vol] 5.28 x10*3/uL Normal 1.20-7.70 [facility] Comment on above: Result Comment: Perc ent differential counts (%) should be interpreted in the context of the absolute cell counts (cells/uL). Performed By: #### 5 902-2 #### JIMBO ANTHONY ([id number]) [facility] ([facility]) [address] [place] [address] Neutrophils/100 WBC (Bld) 68.7 % Normal 40.0-80.0 [facility] Comment on above: Performed By: #### 5 902-2 #### JIMBO ANTHONY ([id number]) [facility] ([facility]) [address] [place] [address] Nucleated RBC/100 WBC (Bld) [Ratio] 0.0 /100 WBCs Normal 0.0-0.0 [facility] Comment on above: Performed By: #### 5 902-2 #### JIMBO ANTHONY ([id number]) [facility] ([facility]) [address] [place] [address] Platelets (Bld) [#/Vol] 111 x10*3/uL Low 150-450 [facility] Comment on above: Performed By: #### 5 902-2 #### JIMBO ANTHONY ([id number]) [facility] ([facility]) [address] [place] [address]61 RBC (Bld) [#/Vol] 4.37 x10*6/uL Normal 4.00-5.20 [facility] Comment on above: Performed By: #### 5 902-2 #### JIMBO ANTHONY ([id number]) [facility] ([facility]) [address] [place] [address]472 WBC (Bld) [#/Vol] 7.7 x10*3/uL Normal 4.4-11.3 [facility] Comment on above: Performed By: #### 5 902-2 #### JIMBO ANTHONY ([id number]) [facility] ([facility]) [address] [place] [address] ANGIO CHEST FOR PULMONARY EMBOLISMon 04-13-2023 CT ANGIO CHEST FOR PULMONARY EMBOLISM STUDY: CT Angiogram of the Chest; 04/13/2023 6:00 AM INDICATION: Shortness of breath, tachycardia. High risk for PE. COMPARISON: CTA chest 04/04/2023. ACCESSION NUMBER(S): [id number] ORDERING CLINICIAN: RYAN MEHTA TECHNIQUE: CTA of the chest was performed with intravenous contrast. Images are reviewed and processed at a workstation according to the CT angiogram protocol with 3-D and/or MIP post processing imaging generated. Omnipaque 350 58 mL was administered intravenously. Automated mA/kV exposure control was utilized and patient examination was performed in strict accordance with principles of ALARA. FINDINGS: Pulmonary arteries are adequately opacified without acute or chronic filling defects. The thoracic aorta is normal in course and caliber without dissection or aneurysm. The heart is normal in size without pericardial effusion. Coronary artery calcification noted, unchanged. There are several small lymph nodes of the mediastinum. These are not pathologically enlarged by size criteria. No thyroid nodule. No identifiable breast mass. Please note that breast tissue is not included within the [id number]-[id number]-ceaa in its entirety. Previously described bronchial wall thickening is less pronounced currently. There is no pleural effusionor pneumothorax. There is likely a secretion in the right bronchus intermedius. Previously described groundglass opacity of the right upper lobe has resolved. Lobulated contour of the liver appears unchanged. Although the spleen is not included in its entirety, mild splenomegaly is suspected. Low-density nodule of the right adrenal gland is stable. This is statistically an adenoma. There are no acute fractures. No suspicious bony lesions. 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 IMPRESSION: 1. No CT evidence of pulmonary embolism. 2. No pulmonary mass or consolidation. No pleural or pericardial effusion. No adenopathy. No pneumothorax. 3. The recent prior CT scan had described bronchial wall thickening and right upper lobe groundglass opacity, suggesting bronchitis. Those findings have improved. Signed by Tobi Peterson MD [facility] CT Chest W contrast IV and C T angiogram Pulmonary arteries for pulmonary embolus W contrast Christine 04-13-[address] evidence of pulmonary embolism. 2. No pulmonary mass or consolidation. No pleural or pericardial effusion. No adenopathy. No pneumothorax. 3. The recent prior CT scan had described bronchial wall thickening and right upper lobe groundglass opacity, suggesting bronchitis. Those findings have improved. Signed by Tobi Peterson MD TELERADIOLOGY STUDY: CT Angiogram of the Chest; 04/13/2023 6:00 AM INDICATION: Shortness of breath, tachycardia. High risk for PE. COMPARISON: CTA chest 04/04/2023. ACCESSION NUMBER(S): [id number] ORDERING CLINICIAN: RYAN MEHTA TECHNIQUE: CTA of the chest was performed with intravenous contrast. Images are reviewed and processed at a workstation according to the CT angiogram protocol with 3-D and/or MIP post processing imaging generated. Omnipaque 350 58 mL was administered intravenously. Automated mA/kV exposure control was utilized and patient examination was performed in strict accordance with principles of ALARA. FINDINGS: Pulmonary arteries are adequately opacified without acute or chronic filling defects. The thoracic aorta is normal in course and caliber without dissection or aneurysm. The heart is normal in size without pericardial effusion. Coronary artery calcification noted, unchanged. There are several small lymph nodes of the mediastinum. These are not pathologically enlarged by size criteria. No thyroid nodule. No identifiable breast mass. Please note that breast tissue is not included within the [id number] in its entirety. Previously described bronchial wall thickening is less pronounced currently. There is no pleural effusionor pneumothorax. There is likely a secretion in the right bronchus intermedius. Previously described groundglass opacity of the right upper lobe has resolved. Lobulated contour of the liver appears unchanged. Although the spleen is not included in its entirety, mild splenomegaly is suspected. Low-density nodule of the right adrenal gland is stable. This is statistically an adenoma. There are no acute fractures. No suspicious bony lesions. 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 TELERADIOLOGY Tobi Peterson M D - 04/13/2023 STUDY: CT Angiogram of the Chest; 04/13/2023 6:00 AM INDICATION: Shortness of breath, tachycardia. High risk for PE. COMPARISON: CTA chest 04/04/2023. ACCESSION NUMBER(S): [id number] ORDERING CLINICIAN: RYAN MEHTA TECHNIQUE: CTA of the chest was performed with intravenous contrast. Images are reviewed and processed at a workstation according to the CT angiogram protocol with 3-D and/or MIP post processing imaging generated. Omnipaque 350 58 mL was administered intravenously. Automated mA/kV exposure control was utilized and patient examination was performed in strict accordance with principles of ALARA. FINDINGS: Pulmonary arteries are adequately opacified without acute or chronic filling defects. The thoracic aorta is normal in course and caliber without dissection or aneurysm. The heart is normal in size without pericardial effusion. Coronary artery calcification noted, unchanged. There are several small lymph nodes of the mediastinum. These are not pathologically enlarged by size criteria. No thyroid nodule. No identifiable breast mass. Please note that breast tissue is not included within the aknpu-[id number]-upoy in its entirety. Previously described bronchial wall thickening is less pronounced currently. There is no pleural effusionor pneumothorax. There is likely a secretion in the right bronchus intermedius. Previously described groundglass opacity of the right upper lobe has resolved. Lobulated contour of the liver appears unchanged. Although the spleen is not included in its entirety, mild splenomegaly is suspected. Low-density nodule of the right adrenal gland is stable. This is statistically an adenoma. There are no acute fractures. No suspicious bony lesions. 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 IMPRESSION: 1. No CT evidence of pulmonary embolism. 2. No pulmonary mass or consolidation. No pleural or pericardial effusion. No adenopathy. No pneumothorax. 3. The recent prior CT scan had described bronchial wall thickening and right upper lobe groundglass opacity, suggesting bronchitis. Those findings have improved. Signed by Tobi Peterson MD [facility] Work Phone: Radiology Study observation (narrative) [facility] Work Phone: CT Chest W contrast IV and C T angiogram Pulmonary arteries for pulmonary embolus W contrast IVOrdered By: Tobi Peterson on 04-13-2023 [facility] Work Phone: Coagulation surface inducedo n 04-13-2023 aPTT Coag (PPP) [Time] 32 s Normal 27-38 [facility] Comment on above: Order Comment: The A PTT is no longer used for monitoring Unfractionated Heparin Therapy. For monitoring Heparin Therapy, use the Heparin Assay. Performed By: #### 5 902-2 #### JIMBO ANTHONY ([id number]) [facility] ([facility]) [address] [place] [address] Coagulation tissue factor in ducedon 04-13-2023 PT Coag (PPP) [Time] 12.2 s Normal 9.8-12.8 [facility] Comment on above: Performed By: #### 5 902-2 #### JIMBO ANTHONY ([id number]) [facility] ([facility]) [address] [place] [address] D-Dimer, Quantitative Non VT El 04-13-2023 Fibrin D-dimer FEU (PPP) [Mass/Vol] 741 High NINF [facility] ECG 12 leadOrdered By: Jess Smart on 04-13-2023 Atrial Rate 152 BPM [facility] Work Phone: P Alpine 265 degrees [facility] Work Phone: P Offset 226 [facility] Work Phone: P Onset 170 [facility] Work Phone: [place] Interval 124 ms [facility] Work Phone: Q Onset 232 ms [facility] Work Phone: QRS Count 25 beats [facility] Work Phone: QRS Duration 60 ms [facility] Work Phone: QT Interval 258 [facility] Work Phone: QTC Calculation(Bazett) 410 [facility] Work Phone: QTC Fredericia 351 [facility] Work Phone: R Alpine 33 degrees [facility] Work Phone: T Alpine 83 degrees [facility] Work Phone: T Offset 361 [facility] Work Phone: Ventricular Rate 152 BPM [facility] Work Phone: [facility] Work Phone: ECG 12 leadon 04-13-2023 Unusual P axis and short OH, probable junctional tachycardia Nonspecific T wave abnormality Abnormal ECG When compared with ECG of 04-APR-2023 13:33, (unconfirmed) Junctional rhythm has replaced Sinus rhythm Nonspecific T wave abnormality has replaced inverted T waves in Inferior leads Nonspecific T wave abnormality now evident in Lateral leads See ED provider note for full interpretation and clinical correlation Confirmed by Johana Smart ([id number]) on 04/13/2023 10:27:59 PM Johana De, [facility] - 04/13/2023 Unusual P axis and short OH, probable junctional tachycardia Nonspecific T wave abnormality Abnormal ECG When compared with ECG of 04-APR-2023 13:33, (unconfirmed) Junctional rhythm has replaced Sinus rhythm Nonspecific T wave abnormality has replaced inverted T waves in Inferior leads Nonspecific T wave abnormality now evident in Lateral leads See ED provider note for full interpretation and clinical correlation Confirmed by Johana Smart ([id number]) on 04/13/2023 10:27:59 PM [facility] Work Phone: ECG 12-LEADon 04-13-2023 ECG 12-LEAD Ventricular Rate 135 Atrial Rate 135 P-R Interval 156 QRS Duration 62 Q-T Interval 270 QTC Calculation(Bazett) 405 P Alpine 254 R Alpine 17 T Alpine 73 QRS Count 22 Q Onset 232 P Onset 154 P Offset 228 T Offset 367 QTC Fredericia 353 Diagnosis Unusual P axis, possible ectopic atrial tachycardia Low voltage QRS Nonspecific T wave abnormality Abnormal ECG When compared with ECG of 13-APR-2023 04:39, Ectopic atrial rhythm has replaced Junctional rhythm See ED provider note for full interpretation and clinical correlation Confirmed by Johana Smart ([id number]) on 04/14/2023 5:11:17 PM Normal [facility] ECG 12-LEAD Ventricular Rate 152 Atrial Rate 152 P-R Interval 124 QRS Duration 60 Q-T Interval 258 QTC Calculation(Bazett) 410 P Alpine 265 R Alpine 33 T Alpine 83 QRS Count 25 Q Onset 232 P Onset 170 P Offset 226 T Offset 361 QTC Fredericia 351 Diagnosis Unusual P axis and short OH, probable junctional tachycardia Nonspecific T wave abnormality Abnormal ECG When compared with ECG of 04-APR-2023 13:33, (unconfirmed) Junctional rhythm has replaced Sinus rhythm Nonspecific T wave abnormality has replaced inverted T waves in Inferior leads Nonspecific T wave abnormality now evident in Lateral leads See ED provider note for full interpretation and clinical correlation Confirmed by Johana Smart ([id number]) on 04/13/2023 10:27:59 PM Normal [facility] Fibrin D-dimer FEUon Fibrin D-dimer FEU (PPP) [Mass/Vol] 741 ng/mL FEU High <=500 [facility] Comment on above: Order Comment: The D -Dimer assay is reported in ng/mL Fibrinogen Equivalent Units (FEU). The results of this assay should NOT be used for the exclusion of Deep Vein Thrombosis and/or Pulmonary Embolism. Performed By: #### 5 902-2 #### CHOI GABRIELLE ([id number]) [facility] ([facility]) [address] [place] [address] Fibrin D-dimer FEU (PPP) [Ma ss/Vol]on 04-13-2023 Interpretation and review of laboratory results Abnormal [facility] The D-Dimer assay is reported in ng/mL Fibrinogen Equivalent Units (FEU). The results of this assay should NOT be used for the exclusion of Deep Vein Thrombosis and/or Pulmonary Embolism. [facility] Free T4 [Mass/Vol]on Interpretation and review of laboratory results Normal [facility] Thyroxine Free testing is performed using different testing methodology at [facility] than at other [place] [facility]. Direct result comparisons should only be made within the same method. Biotin can cause falsely elevated free T4 results. Patients taking a Biotin dose of up to 10 mg/day should refrain from taking Biotin for 24 hours before sample collection. Patient taking a Biotin dose of >10 mg/day should consult with their physician or the laboratory before the blood draw. [facility] Glucose Test strip manual (B ld) [Mass/Vol]on 04-13-2023 Glucose [Mass/Vol] 175 mg/dL High 74 - 99 mg/dL [facility] Interpretation and review of laboratory results Abnormal [facility] Glucose [Mass/Vol] 175 mg/dL High 74-99 [facility] Comment on above: Performed By: #### 5 7021-8 #### JIMBO ANTHONY ([id number]) [facility] ([facility]) [address] [place] [address] Glucose [Mass/Vol] 79 mg/dL 74 - 99 mg/dL [facility] Interpretation and review of laboratory results Normal [facility] Glucose [Mass/Vol] 79 mg/dL Normal 74-99 [facility] Comment on above: Performed By: #### 1 4979-9 #### JIMBO ANTHONY ([id number]) [facility] ([facility]) [address] [place] [address] Glucose [Mass/Vol] 82 mg/dL 74 - 99 mg/dL [facility] Interpretation and review of laboratory results Normal [facility] Glucose [Mass/Vol] 82 mg/dL Normal 74-99 [facility] Comment on above: Performed By: #### 1 4979-9 #### JIMBO ANTHONY ([id number]) [facility] ([facility]) [address] [place] [address] Glucose [Mass/Vol] 155 mg/dL High 74 - 99 mg/dL [facility] Interpretation and review of laboratory results Abnormal [facility] Glucose [Mass/Vol] 155 mg/dL High 74-99 [facility] Comment on above: Performed By: #### 1 4979-9 #### JIMBO ANTHONY ([id number]) [facility] ([facility]) [address] [place] [address] Lower extremity venous duple x lefton 04-13-2023 Radiology Study observation (narrative) [facility] Work Phone: Magnesiumon 04-13-2023 Magnesium [Mass/Vol] 2.13 mg/dL 1.60 - 2.40 mg/dL [facility] Magnesium [Mass/Vol] 2.13 mg/dL Normal 1.60-2.40 [facility] Comment on above: Performed By: #### 1 4979-9 #### JIMBO ANTHONY ([id number]) [facility] ([facility]) [address] [place] [address] Magnesium [Mass/Vol] 1.17 mg/dL Low 1.60 - 2.40 mg/dL [facility] Magnesium [Mass/Vol] 1.17 mg/dL Low 1.60-2.40 [facility] Comment on above: Performed By: #### 5 902-2 #### JIMBO ANTHONY ([id number]) [facility] ([facility]) [address] [place] [address] Magnesium [Mass/Vol]on 04-13 Interpretation and review of laboratory results Normal [facility] Natriuretic peptide B [Mass/ Vol]on 04-13-2023 Interpretation and review of laboratory results Normal [facility] Natriuretic peptide B (Bld) [Mass/Vol] 65 pg/mL 0 - 99 pg/mL [facility] <100 pg/mL - Heart failure unlikely 100-299 pg/mL - Intermediate probability of acute heart failure exacerbation. Correlate with clinical context and patient history. >=300 pg/mL - Heart Failure likely. Correlate with clinical context and patient history. BNP testing is performed using different testing methodology at [facility] than at other [place] [facility]. Direct result comparisons should only be made within the same method. [facility] Natriuretic peptide B (Bld) [Mass/Vol] 65 pg/mL Normal 0-99 [facility] Comment on above: Order Comment: The A PTT is no longer used for monitoring Unfractionated Heparin Therapy. For monitoring Heparin Therapy, use the Heparin Assay. Performed By: #### 1 4979-9 #### JIMBO ANTHONY ([id number]) [facility] ([facility]) [address] [place] [address] No Panel Informationon 04-13 Interpretation and review of laboratory results Abnormal [facility] Interpretation and review of laboratory results Normal [facility] PT Coag (PPP) [Time]on 04-13 INR Coag (PPP) [Relative time] 1.1 {INR} 0.9 - 1.1 [facility] INR Coag (PPP) [Relative time] 1.1 Normal 0.9-1.1 [facility] Comment on above: Performed By: #### 5 902-2 #### JIMBO ANTHONY ([id number]) [facility] ([facility]) [address] [place] [address] Phosphateon 04-13-2023 Phosphate [Mass/Vol] 4.0 mg/dL Normal 2.5-4.9 [facility] Comment on above: Result Comment: The performance characteristics of phosphorus testing in heparinized plasma have been validated by the individual laboratory site where testing is performed. Testing on heparinized plasma is not approved by the FDA; however, such approval is not necessary. Performed By: #### 1 4979-9 #### JIMBO ANTHONY ([id number]) [facility] ([facility]) [address] [place] [address] Phosphate [Mass/Vol]on 04-13 Interpretation and review of laboratory results Normal [facility] Phosphoruson 04-13-2023 Phosphate [Mass/Vol] 4.0 mg/dL 2.5 - 4 .9 mg/dL [facility] Comment on above: The performance flor acteristics of phosphorus testing in heparinized plasma have been validated by the individual laboratory site where testing is performed. Testing on heparinized plasma is not approved by the FDA; however, such approval is not necessary. Protime-INRon 04-13-2023 PT Coag (PPP) [Time] 12.2 s [facility] TRANSTHORACIC ECHO (TTE) COM PLETEon 04-13-2023 TRANSTHORACIC ECHO (TTE) [address] [address] ext-[phone], TRANSTHORACIC ECHOCARDIOGRAM REPORT Patient Name: JANELLE Rayo PIYUSH Reading Physician: [id number] Luis Daniel Barriga MD Study Date: 04/13/2023 Ordering Provider: [id number] WILLA DEL CASTILLO MRN/PID: [id number] Fellow: Nurse: Marily Wolf RN Date of /Age: 408/06/1955 / 67 years Bus Inspector: GONZALO Katz RVT Gender: F Additional Staff: Height: 157.48 cm Admit Date: 04/13/2023 Weight: 97.07 kg Admission Status: Inpatient - Routine BSA: 1.97 m2 Department Location: [address] Blood Pressure: 113 /68 mmHg Study Type: TRANSTHORACIC ECHO (TTE) COMPLETE Diagnosis/ICD: Chest pain, unspecified-R07.9; Tachycardia, unspecified-R00.0 Indication: CP,Tachy CPT Codes: Echo Complete w Full Doppler-10017 Patient History: Pertinent History: No previous echo. Study Detail: The following Echo studies were performed: 2D, M-Mode, Doppler and color flow. Definity used as a contrast agent for endocardial border definition. Total contrast used for this procedure was 1 mL via IV push. A bubble study was not performed. The patient was awake. PHYSICIAN INTERPRETATION: Left Ventricle: Left ventricular systolic function is normal, with an estimated ejection fraction of 60%. There are no regional wall motion abnormalities. The left ventricular cavity size is normal. There is mild concentric left ventricular hypertrophy. Left ventricular diastolic filling was indeterminate. Left Atrium: The left atrium is normal in size. Right Ventricle: The right ventricle was not well visualized. Unable to determine right ventricular systolic function. Right Atrium: The right atrium was not well visualized. Aortic Valve: The aortic valve is trileaflet. There is no evidence of aortic valve regurgitation. The peak instantaneous gradient of the aortic valve is 9.1 mmHg. The mean gradient of the aortic valve is 5.0 mmHg. Mitral Valve: The mitral valve is normal in structure. There is no evidence of mitral valve regurgitation. Tricuspid Valve: The tricuspid valve was not well visualized. Tricuspid regurgitation was not assessed. Pulmonic Valve: The pulmonic valve is not well visualized. There is no indication of pulmonic valve regurgitation. Pericardium: There is no pericardial effusion noted. Aorta: The aortic root is normal. CONCLUSIONS: 1. Left ventricular systolic function is normal with a 60% estimated ejection fraction. 2. Poorly visualized anatomical structures due to suboptimal image quality. 3. Patient is tachycardic at the time of the echocardiogram. QUANTITATIVE DATA SUMMARY: 2D MEASUREMENTS: Normal Ranges: Ao Root d: 2.10 cm (2.0-3.7cm) LAs: 3.00 cm (2.7-4.0cm) IVSd: 1.41 cm (0.6-1.1cm) LVPWd: 1.48 cm (0.6-1.1cm) LVIDd: 3.24 cm (3.9-5.9cm) LVIDs: 1.70 cm LV Mass Index: 83.3 g/m2 LV % FS 47.5 % LA VOLUME: Normal Ranges: LA Vol A4C: 22.1 ml (22+/-6mL/m2) LA Vol A2C: 30.5 ml LA Vol BP: 26.0 ml LA Vol Index A4C: 11.2ml/m2 LA Vol Index A2C: 15.5 ml/m2 LA Vol Index BP: 13.2 ml/m2 LA Area A4C: 11.3 cm2 LA Area A2C: 13.3 cm2 LA Major Alpine A4C: 4.9 cm LA Major Alpine A2C: 4.9 cm LA Volume Index: 14.8 ml/m2 LA Vol A4C: 21.6 ml LA Vol A2C: 29.1 ml M-MODE MEASUREMENTS: Normal Ranges: AoV Exc: 1.10 cm (1.5-2.5cm) AORTA MEASUREMENTS: Normal Ranges: AoV Exc: 1.10 cm (1.5-2.5cm) LV SYSTOLIC FUNCTION BY 2D PLANIMETRY (MOD): Normal Ranges: EF-A4C View: 45.5 % (>=55%) EF-A2C View: 23.4 % EF-Biplane: 33.5 % LV DIASTOLIC FUNCTION: Normal Ranges: MV Peak E: 1.31 m/s (0.7-1.2 m/s) MITRAL VALVE: Normal Ranges: MV DT: 88 msec (150-240msec) MITRAL INSUFFICIENCY: Normal Ranges: MR Vmax: 244.00 cm/s AORTIC VALVE: Normal Ranges: AoV Vmax: 1.51 m/s (<=1.7m/s) AoV Peak P.1 mmHg (<20mmHg) AoV Mean P.0 mmHg (1.7-11.5mmHg) LVOT Max Federico: 0.80 m/s (<=1.1m/s) AoV VTI: 24.20 cm (18-25cm) LVOT VTI: 14.00 cm LVOT Diameter: 1.70 cm (1.8-2.4cm) AoV Area, VTI: 1.31 cm2 (2.5-5.5cm2) AoV Area,Vmax: 1.21 cm2 (2.5-4.5cm2) AoV Dimensionless Index: 0.58 RIGHT VENTRICLE: RV Basal 2.56 cm RV Mid 1.96 cm RV Major 7.4 cm TAPSE: 12.7 mm PULMONIC VALVE: Normal Ranges: PV Accel Time: 63 msec (>120ms) PV Max Federico: 1.2 m/s (0.6-0.9m/s) PV Max P.5 mmHg [id number] Luis Daniel Barriga MD Electronically signed on 04/13/2023 at 6:34:35 PM Final Normal [facility] TSH WITH REFLEX TO FREE T4 I F ABNORMALon 04-13-2023 TSH Qn 8.58 m[IU]/L High 0.44-3.98 [facility] Comment on above: Order Comment: The A PTT is no longer used for monitoring Unfractionated Heparin Therapy. For monitoring Heparin Therapy, use the Heparin Assay. Performed By: #### 1 4979-9 #### CHOI GABRIELLE ([id number]) [facility] ([facility]) [address] [place] [address] TSH with reflex to Free T4 i f abnormalon 04-13-2023 Interpretation and review of laboratory results Abnormal [facility] TSH Qn 8.58 m[IU]/L High [facility] TSH testing is performed using different testing methodology at [facility] than at other [place] [facility]. Direct result comparisons should only be made within the same method. [facility] Thyroxine, Freeon 04-13-2023 Free T4 [Mass/Vol] 0.70 ng/dL 0.61 - 1. 12 ng/dL [facility] Thyroxine.freeon 04-13-2023 Free T4 [Mass/Vol] 0.70 ng/dL Normal 0.61-1.12 [facility] Comment on above: Order Comment: The A PTT is no longer used for monitoring Unfractionated Heparin Therapy. For monitoring Heparin Therapy, use the Heparin Assay. Performed By: #### 1 4979-9 #### CHOI GABRIELLE ([id number]) [facility] ([facility]) [address] [place] [address] Tropinin I.cardiac panel Hig h sensitivity methodon 04-13-2023 Interpretation and review of laboratory results Normal [facility] Less than 99th percentile of normal range cutoff- Female and children under 18 years old <14 ng/L; Male <21 ng/L: Negative Repeat testing should be performed if clinically indicated. Female and children under 18 years old 14-50 ng/L; Male 21-50 ng/L: Consistent with possible cardiac damage and possible increased clinical risk. Serial measurements may help to assess extent of myocardial damage. >50 ng/L: Consistent with cardiac damage, increased clinical risk and myocardial infarction. Serial measurements may help assess extent of myocardial damage. NOTE: Children less than 1 year old may have higher baseline troponin levels and results should be interpreted in conjunction with the overall clinical context. NOTE: Troponin I testing is performed using a different testing methodology at [facility] than at other [facility] [facility]. Direct result comparisons should only be made within the same method. [facility] Troponin I, High Sensitivity on 04-13-2023 Tropinin I.cardiac panel High sensitivity method 7 ng/L 0 - 13 ng/L [facility] Troponin I.cardiac panelon 0 04-13-2023 Tropinin I.cardiac panel High sensitivity method 7 ng/L Normal 0-13 [facility] Comment on above: Order Comment: Less than 99th percentile of normal range cutoff-Female and children under 18 years old <14 ng/L; Male <21 ng/L: NegativeRepeat testing should be performed if clinically indicated.Female and children under 18 years old 14-50 ng/L; Male 21-50 ng/L:Consistent with possible cardiac damage and possible increased clinicalrisk. Serial measurements may help to assess extent of myocardial damage.>50 ng/L: Consistent with cardiac damage, increased clinical risk andmyocardial infarction. Serial measurements may help assess extent ofmyocardial damage.NOTE: Children less than 1 year old may have higher baseline troponinlevels and results should be interpreted in conjunction with the overallclinical context.NOTE: Troponin I testing is performed using a differenttesting methodology at [facility] than at [facility]. Direct result comparisons should onlybe made within the same method. Performed By: #### 5 902-2 #### CHOI GABRIELLE ([id number]) [facility] ([facility]) [address] [place] [address] Heart TransthoracicOrdere d By: Luis Daniel Barriga on 04-13-2023 Aortic Valve Area by Continuity of Peak Velocity 1.21 [facility] Work Phone: Aortic Valve Area by Continuity of VTI 1.31 [facility] Work Phone: AV mn grad 5.0 [facility] Work Phone: AV pk grad 9.1 [facility] Work Phone: AV pk federico 1.51 [facility] Work Phone: LA vol index A/L 13.2 [facility] Work Phone: LV A4C EF 45.5 [facility] Work Phone: LV biplane EF 34 [facility] Work Phone: LVIDd 3.24 [facility] Work Phone: LVOT diam 1.70 [facility] Work Phone: Tricuspid annular plane systolic excursion 1.3 [facility] Work Phone: [facility] Work Phone: [place] [address] ext-[phone], TRANSTHORACIC ECHOCARDIOGRAM REPORT Patient Name: JANELLE Rayo PIYUSH Bone Physician: [id number] Luis Daniel Barriga MD Study Date: 04/13/2023 Ordering Provider: [id number] WILLA DEL CASTILLO MRN/PID: [id number] Fellow: Nurse: Marily Wolf RN Date of /Age: 408/06/1955 / 67 years Bus Inspector: Darlyn Gomez RVT, RCS Gender: F Additional Staff: Height: 157.48 cm Admit Date: 04/13/2023 Weight: 97.07 kg Admission Status: Inpatient - Routine BSA: 1.97 m2 Department Location: [address] Blood Pressure: 113 /68 mmHg Study Type: TRANSTHORACIC ECHO (TTE) COMPLETE Diagnosis/ICD: Chest pain, unspecified-R07.9; Tachycardia, unspecified-R00.0 Indication: CP,Tachy CPT Codes: Echo Complete w Full Doppler-50001 Patient History: Pertinent History: No previous echo. Study Detail: The following Echo studies were performed: 2D, M-Mode, Doppler and color flow. Definity used as a contrast agent for endocardial border definition. Total contrast used for this procedure was 1 mL via IV push. A bubble study was not performed. The patient was awake. PHYSICIAN INTERPRETATION: Left Ventricle: Left ventricular systolic function is normal, with an estimated ejection fraction of 60%. There are no regional wall motion abnormalities. The left ventricular cavity size is normal. There is mild concentric left ventricular hypertrophy. Left ventricular diastolic filling was indeterminate. Left Atrium: The left atrium is normal in size. Right Ventricle: The right ventricle was not well visualized. Unable to determine right ventricular systolic function. Right Atrium: The right atrium was not well visualized. Aortic Valve: The aortic valve is trileaflet. There is no evidence of aortic valve regurgitation. The peak instantaneous gradient of the aortic valve is 9.1 mmHg. The mean gradient of the aortic valve is 5.0 mmHg. Mitral Valve: The mitral valve is normal in structure. There is no evidence of mitral valve regurgitation. Tricuspid Valve: The tricuspid valve was not well visualized. Tricuspid regurgitation was not assessed. Pulmonic Valve: The pulmonic valve is not well visualized. There is no indication of pulmonic valve regurgitation. Pericardium: There is no pericardial effusion noted. Aorta: The aortic root is normal. CONCLUSIONS: 1. Left ventricular systolic function is normal with a 60% estimated ejection fraction. 2. Poorly visualized anatomical structures due to suboptimal image quality. 3. Patient is tachycardic at the time of the echocardiogram. QUANTITATIVE DATA SUMMARY: 2D MEASUREMENTS: Normal Ranges: Ao Root d: 2.10 cm (2.0-3.7cm) LAs: 3.00 cm (2.7-4.0cm) IVSd: 1.41 cm (0.6-1.1cm) LVPWd: 1.48 cm (0.6-1.1cm) LVIDd: 3.24 cm (3.9-5.9cm) LVIDs: 1.70 cm LV Mass Index: 83.3 g/m2 LV % FS 47.5 % LA VOLUME: Normal Ranges: LA Vol A4C: 22.1 ml (22+/-6mL/m2) LA Vol A2C: 30.5 ml LA Vol BP: 26.0 ml LA Vol Index A4C: 11.2ml/m2 LA Vol Index A2C: 15.5 ml/m2 LA Vol Index BP: 13.2 ml/m2 LA Area A4C: 11.3 cm2 LA Area A2C: 13.3 cm2 LA Major Alpine A4C: 4.9 cm LA Major Alpine A2C: 4.9 cm LA Volume Index: 14.8 ml/m2 LA Vol A4C: 21.6 ml LA Vol A2C: 29.1 ml M-MODE MEASUREMENTS: Normal Ranges: AoV Exc: 1.10 cm (1.5-2.5cm) AORTA MEASUREMENTS: Normal Ranges: AoV Exc: 1.10 cm (1.5-2.5cm) LV SYSTOLIC FUNCTION BY 2D PLANIMETRY (MOD): Normal Ranges: EF-A4C View: 45.5 % (>=55%) EF-A2C View: 23.4 % EF-Biplane: 33.5 % LV DIASTOLIC FUNCTION: Normal Ranges: MV Peak E: 1.31 m/s (0.7-1.2 m/s) MITRAL VALVE: Normal Ranges: MV DT: 88 msec (150-240msec) MITRAL INSUFFICIENCY: Normal Ranges: MR Vmax: 244.00 cm/s AORTIC VALVE: Normal Ranges: AoV Vmax: 1.51 m/s (<=1.7m/s) AoV Peak P.1 mmHg (<20mmHg) AoV Mean P.0 mmHg (1.7-11.5mmHg) LVOT Max Federico: 0.80 m/s (<=1.1m/s) AoV VTI: 24.20 cm (18-25cm) LVOT VTI: 14.00 cm LVOT Diameter: 1.70 cm (1.8-2.4cm) AoV Area, VTI: 1.31 c (more content not included)... Luis Daniel Araiza MD - 04/13/2023 [place] [address] [phone], TRANSTHORACIC ECHOCARDIOGRAM REPORT Patient Name: JANELLE PICKETT Reading Physician: [id number] Luis Daniel Barriga MD Study Date: 04/13/2023 Ordering Provider: [id number] WILLA DEL CASTILLO MRN/PID: [id number] Fellow: Nurse: Marily Wolf RN Date of /Age: 408/06/1955 / 67 years Bus Inspector: GONZALO Katz RVT Gender: F Additional Staff: Height: 157.48 cm Admit Date: 04/13/2023 Weight: 97.07 kg Admission Status: Inpatient - Routine BSA: 1.97 m2 Department Location: [address] Blood Pressure: 113 /68 mmHg Study Type: TRANSTHORACIC ECHO (TTE) COMPLETE Diagnosis/ICD: Chest pain, unspecified-R07.9; Tachycardia, unspecified-R00.0 Indication: CP,Tachy CPT Codes: Echo Complete w Full Doppler-30585 Patient History: Pertinent History: No previous echo. Study Detail: The following Echo studies were performed: 2D, M-Mode, Doppler and color flow. Definity used as a contrast agent for endocardial border definition. Total contrast used for this procedure was 1 mL via IV push. A bubble study was not performed. The patient was awake. PHYSICIAN INTERPRETATION: Left Ventricle: Left ventricular systolic function is normal, with an estimated ejection fraction of 60%. There are no regional wall motion abnormalities. The left ventricular cavity size is normal. There is mild concentric left ventricular hypertrophy. Left ventricular diastolic filling was indeterminate. Left Atrium: The left atrium is normal in size. Right Ventricle: The right ventricle was not well visualized. Unable to determine right ventricular systolic function. Right Atrium: The right atrium was not well visualized. Aortic Valve: The aortic valve is trileaflet. There is no evidence of aortic valve regurgitation. The peak instantaneous gradient of the aortic valve is 9.1 mmHg. The mean gradient of the aortic valve is 5.0 mmHg. Mitral Valve: The mitral valve is normal in structure. There is no evidence of mitral valve regurgitation. Tricuspid Valve: The tricuspid valve was not well visualized. Tricuspid regurgitation was not assessed. Pulmonic Valve: The pulmonic valve is not well visualized. There is no indication of pulmonic valve regurgitation. Pericardium: There is no pericardial effusion noted. Aorta: The aortic root is normal. CONCLUSIONS: 1. Left ventricular systolic function is normal with a 60% estimated ejection fraction. 2. Poorly visualized anatomical structures due to suboptimal image quality. 3. Patient is tachycardic at the time of the echocardiogram. QUANTITATIVE DATA SUMMARY: 2D MEASUREMENTS: Normal Ranges: Ao Root d: 2.10 cm (2.0-3.7cm) LAs: 3.00 cm (2.7-4.0cm) IVSd: 1.41 cm (0.6-1.1cm) LVPWd: 1.48 cm (0.6-1.1cm) LVIDd: 3.24 cm (3.9-5.9cm) LVIDs: 1.70 cm LV Mass Index: 83.3 g/m2 LV % FS 47.5 % LA VOLUME: Normal Ranges: LA Vol A4C: 22.1 ml (22+/-6mL/m2) LA Vol A2C: 30.5 ml LA Vol BP: 26.0 ml LA Vol Index A4C: 11.2ml/m2 LA Vol Index A2C: 15.5 ml/m2 LA Vol Index BP: 13.2 ml/m2 LA Area A4C: 11.3 cm2 LA Area A2C: 13.3 cm2 LA Major Alpine A4C: 4.9 cm LA Major Alpine A2C: 4.9 cm LA Volume Index: 14.8 ml/m2 LA Vol A4C: 21.6 ml LA Vol A2C: 29.1 ml M-MODE MEASUREMENTS: Normal Ranges: AoV Exc: 1.10 cm (1.5-2.5cm) AORTA MEASUREMENTS: Normal Ranges: AoV Exc: 1.10 cm (1.5-2.5cm) LV SYSTOLIC FUNCTION BY 2D PLANIMETRY (MOD): Normal Ranges: EF-A4C View: 45.5 % (>=55%) EF-A2C View: 23.4 % EF-Biplane: 33.5 % LV DIASTOLIC FUNCTION: Normal Ranges: MV Peak E: 1.31 m/s (0.7-1.2 m/s) MITRAL VALVE: Normal Ranges: MV DT: 88 msec (150-240msec) MITRAL INSUFFICIENCY: Normal Ranges: MR Vmax: 244.00 cm/s AORTIC VALVE: Normal Ranges: AoV Vmax: 1.51 m/s (<=1.7m/s) AoV Peak P.1 mmHg (<20mmHg) AoV Mean P.0 mmHg (1.7-11.5mmHg) LVOT Max Federico: 0.80 m/s (<=1.1m/s) AoV VTI: 24.20 cm (18-25cm) LVOT VTI: 14.00 cm LVOT Diameter: 1.70 cm (1.8-2.4cm) AoV Area, VTI: 1.31 cm2 (2.5-5.5cm2) AoV Area,Vmax: 1.21 cm2 (2.5-4.5cm2) AoV Dimensionless Index: 0.58 RIGHT VENTRICLE: RV Basal 2.56 cm RV Mid 1.96 cm RV Major 7.4 cm TAPSE: 12.7 mm PULMONIC VALVE: Normal Ranges: PV Accel Time: 63 msec (>120ms) PV Max Federico: 1.2 m/s (0.6-0.9m/s) PV Max P.5 mmHg [id number] Luis Daniel Barriga MD Electronically signed on 04/13/2023 at 6:34:35 PM Final [facility] Work Phone: [facility] US LOWER EXTREMITY VENO US DUPLEX LEFTon 04-13-2023 [facility] US LOWER EXTREMITY [place] [address] [phone], Vascular Lab Report [facility] US LOWER EXTREMITY VENOUS DUPLEX LEFT Patient Name: JANELLE PICKETT Lizandro Physician: [id number] Christian Hannah MD Study Date: 04/13/2023 Ordering Provider: [id number] WILLA DEL CASTILLO MRN/PID: [id number] Fellow: Technologist: Desi Chen RVT Date of /Age: 408/06/1955 / 67 years Technologist 2: Gender: F Admission Status: Inpatient Location Performed: [facility] Diagnosis/ICD: Pain in left leg-M79.605 Indication: Limb pain. CPT Codes: 51275 Peripheral venous duplex scan for DVT Limited Pertinent History: Leg pain. CONCLUSIONS: Right Lower Venous: Right common femoral vein is negative for deep vein thrombus. Left Lower Venous: No evidence of acute deep vein thrombus visualized in the left lower extremity. Comparison: Compared with study from 10/02/2021, no significant change. Imaging & Doppler Findings: Right Compressible Thrombus Flow CFV Yes None Spontaneous/Phasic Left Compress Thrombus Flow Distal External Iliac Spontaneous/Phasic CFV Yes None Spontaneous/Phasic PFV Yes None FV Proximal Yes None Spontaneous/Phasic FV Mid Yes None FV Distal Yes None Popliteal Yes None Spontaneous/Phasic Peroneal Yes None PTV Yes None [id number] Christian Hannah MD Final Normal [facility] aPTT Coag (PPP) [Time]on The APTT is no longe r used for monitoring Unfractionated Heparin Therapy. For monitoring Heparin Therapy, use the Heparin Assay. [facility] Basic metabolic 2000 panelon 04-05-2023 Anion gap [Moles/Vol] 12 mmol/L 10 - 2 0 mmol/L [facility] Calcium [Mass/Vol] 7.8 mg/dL Low 8.6 - 10. 3 mg/dL [facility] Chloride [Moles/Vol] 102 mmol/L 98 - 10 7 mmol/L [facility] CO2 [Moles/Vol] 24 mmol/L 21 - 32 mmol/L [facility] Creatinine [Mass/Vol] 1.14 mg/dL High 0.50 - 1.05 mg/dL [facility] GFR/1.73 sq M.predicted MDRD (S/P/Bld) [Vol rate/Area] 53 mL/min/{1.73_m2} Low - PINF [facility] Comment on above: Calculations of roxann mated GFR are performed using the 2020 CKD-EPI Study Refit equation without the race variable for the IDMS-Traceable creatinine methods. https://jasn.asnjournals.org/content/early/ASN.89256 02980 Glucose [Mass/Vol] 324 mg/dL High 74 - 99 mg/dL [facility] Interpretation and review of laboratory results Abnormal [facility] Potassium [Moles/Vol] 4.5 mmol/L 3.5 - 5.3 mmol/L [facility] Sodium [Moles/Vol] 133 mmol/L Low 136 - 145 mmol/L [facility] Urea nitrogen [Mass/Vol] 14 mg/dL 6 - 23 mg/dL [facility] Anion gap [Moles/Vol] 12 mmol/L Normal 10-20 [facility] Comment on above: Performed By: #### 8 9577-1 #### JIMBO ANTHONY ([id number]) [facility] ([facility]) [address] [place] [address] Calcium [Mass/Vol] 7.8 mg/dL Low 8.6-10.3 [facility] Comment on above: Performed By: #### 8 9577-1 #### JIMBO ANTHONY ([id number]) [facility] ([facility]) [address] [place] [address] Chloride [Moles/Vol] 102 mmol/L Normal 98-107 [facility] Comment on above: Performed By: #### 8 9577-1 #### JIMBO ANTHONY ([id number]) [facility] ([facility]) [address] [place] [address] CO2 [Moles/Vol] 24 mmol/L Normal 21-32 [facility] Comment on above: Performed By: #### 8 9577-1 #### JIMBO ANTHONY ([id number]) [facility] ([facility]) [address] [place] [address] Creatinine [Mass/Vol] 1.14 mg/dL High 0.50-1.05 [facility] Comment on above: Performed By: #### 8 9577-1 #### JIMBO ANTHONY ([id number]) [facility] ([facility]) [facility] [place] [address] GFR/1.73 sq M.predicted MDRD (S/P/Bld) [Vol rate/Area] 53 mL/min/1.73m*2 Low >60 [facility] Comment on above: Result Comment: Calc ulations of estimated GFR are performed using the 2020 CKD-EPI Study Refit equation without the race variable for the IDMS-Traceable creatinine methods. https://jasn.asnjournals.org/content/early/ASN.82191 39347 Performed By: #### 8 9577-1 #### JIMBO ANTHONY ([id number]) [facility] ([facility]) [address] [place] [address]50 Glucose [Mass/Vol] 324 mg/dL High 74-99 [facility] Comment on above: Performed By: #### 8 9577-1 #### JIMBO ANTHONY ([id number]) [facility] ([facility]) [address] [place] [address] 23265 Potassium [Moles/Vol] 4.5 mmol/L Normal 3.5-5.3 [facility] Comment on above: Performed By: #### 8 9577-1 #### JIMBO ANTHONY ([id number]) [facility] ([facility]) [address] [place] [address] 12631 Sodium [Moles/Vol] 133 mmol/L Low 136-145 [facility] Comment on above: Performed By: #### 8 9577-1 #### JIMBO ANTHONY ([id number]) [facility] ([facility]) [address] [place] [address] 10377 Urea nitrogen [Mass/Vol] 14 mg/dL Normal 6-23 [facility] Comment on above: Performed By: #### 8 9577-1 #### JIMBO ANTHONY ([id number]) [facility] ([facility]) [address] [place] [address] 24824 CBC panel Auto (Bld)on 04-05 Erythrocyte distribution width (RBC) [Ratio] 13.2 % 11.5 - 14.5 % [facility] Hematocrit (Bld) [Volume fraction] 37.9 % 36.0 - 46.0 % [facility] Hemoglobin (Bld) [Mass/Vol] 12.9 g/dL 12.0 - 16.0 g/dL [facility] Interpretation and review of laboratory results Abnormal [facility] MCH (RBC) [Entitic mass] 30.4 pg 26.0 - 34.0 pg [facility] MCHC (RBC) [Mass/Vol] 34.0 g/dL 32.0 - 36.0 g/dL [facility] MCV (RBC) [Entitic vol] 89 fL 80 - 100 fL [facility] Nucleated RBC/100 WBC (Bld) [Ratio] 0.0 % [facility] Platelets (Bld) [#/Vol] 90 10*3/uL Low [facility] RBC (Bld) [#/Vol] 4.24 10*6/uL [facility] WBC (Bld) [#/Vol] 7.6 10*3/uL [facility] Erythrocyte distribution width (RBC) [Ratio] 13.2 % Normal 11.5-14.5 [facility] Comment on above: Performed By: #### 8 9577-1 #### JIMBO ANTHONY ([id number]) [facility] ([facility]) [address] [place] [address] 06074 Hematocrit (Bld) [Volume fraction] 37.9 % Normal 36.0-46.0 [facility] Comment on above: Performed By: #### 8 9577-1 #### JIMBO ANTHONY ([id number]) [facility] ([facility]) [address] [place] [address] 95255 Hemoglobin (Bld) [Mass/Vol] 12.9 g/dL Normal 12.0-16.0 [facility] Comment on above: Performed By: #### 8 9577-1 #### JIMBO ANTHONY ([id number]) [facility] ([facility]) [address] [place] [address] MCH (RBC) [Entitic mass] 30.4 pg Normal 26.0-34.0 [facility] Comment on above: Performed By: #### 8 9577-1 #### JIMBO ANTHONY ([id number]) [facility] ([facility]) [address] [place] [address] 26844 MCHC (RBC) [Mass/Vol] 34.0 g/dL Normal 32.0-36.0 [facility] Comment on above: Performed By: #### 8 9577-1 #### JIMBO ANTHONY ([id number]) [facility] ([facility]) [address] [place], [place] [id number] MCV (RBC) [Entitic vol] 89 fL Normal 80-100 [facility] Comment on above: Performed By: #### 8 9577-1 #### JIMBO ANTHONY ([id number]) [facility] ([facility]) [address] [place] [address] 17324 Nucleated RBC/100 WBC (Bld) [Ratio] 0.0 /100 WBCs Normal 0.0-0.0 [facility] Comment on above: Performed By: #### 8 9577-1 #### JIMBO ANTHONY ([id number]) [facility] ([facility]) [address] [place] [address] Platelets (Bld) [#/Vol] 90 x10*3/uL Low 150-450 [facility] Comment on above: Performed By: #### 8 9577-1 #### JIMBO ANTHONY ([id number]) [facility] ([facility]) [address] [place] [address] RBC (Bld) [#/Vol] 4.24 x10*6/uL Normal 4.00-5.20 [facility] Comment on above: Performed By: #### 8 9577-1 #### JIMBO ANTHONY ([id number]) [facility] ([facility]) [address] [place] [address] 48256 WBC (Bld) [#/Vol] 7.6 x10*3/uL Normal 4.4-11.3 [facility] Comment on above: Performed By: #### 8 9577-1 #### JIMBO ANTHONY ([id number]) [facility] ([facility]) [address] [place] [address] 07456 Glucose Test strip manual (B ld) [Mass/Vol]on 04-05-2023 Glucose [Mass/Vol] 308 mg/dL High 74 - 99 mg/dL [facility] Interpretation and review of laboratory results Abnormal [facility] Glucose [Mass/Vol] 308 mg/dL High 74-99 [facility] Comment on above: Performed By: #### 5 902-2 #### JIMBO ANTHONY ([id number]) [facility] ([facility]) [address] [place] [address] 74470 Glucose [Mass/Vol] 303 mg/dL High 74 - 99 mg/dL [facility] Interpretation and review of laboratory results Abnormal [facility] Glucose [Mass/Vol] 303 mg/dL High 74-99 [facility] Comment on above: Performed By: #### 5 902-2 #### JIMBO ANTHONY ([id number]) [facility] ([facility]) [address] [place] [address] 70923 Magnesiumon 04-05-2023 Magnesium [Mass/Vol] 2.09 mg/dL 1.60 - 2.40 mg/dL [facility] Magnesium [Mass/Vol] 2.09 mg/dL Normal 1.60-2.40 [facility] Comment on above: Performed By: #### 5 902-2 #### JIMBO ANTHONY ([id number]) [facility] ([facility]) [address] [place] [address] 07588 Magnesium [Mass/Vol]on 04-05 Interpretation and review of laboratory results Normal [facility] Bacteria identifiedon 2022 Bacteria identified Cx Nom (Bld) Test: Blood Culture Specimen Source: Peripheral Arterial Puncture Specimen Type: Blood culture Specimen Date: 04/04/2023 2:14 PM Result Date: 04/09/2023 6:01 AM Result Status: Final result Abnormal: No Resulting Lab: [facility] [address] [place] [address] CULTURE No growth at 4 days - FINAL REPORT [facility] Comment on above: Performed By: #### 8 9577-1 #### JIMBO ANTHONY ([id number]) [facility] ([facility]) [address] [place] [address] Bacteria identified Cx Nom (Bld) Test: Blood Culture Specimen Source: Peripheral Venipuncture Specimen Type: Blood culture Specimen Date: 04/04/2023 2:14 PM Result Date: 04/09/2023 6:01 AM Result Status: Final result Abnormal: No Resulting Lab: [facility] [address] [place] [address] CULTURE No growth at 4 days - FINAL REPORT [facility] Comment on above: Performed By: #### 8 9577-1 #### JIMBO ANTHONY ([id number]) [facility] ([facility]) [address] [place] [address] CBC W Auto Differential pane l (Bld)on 04-04-2023 Basophils (Bld) [#/Vol] 0.03 10*3/uL [facility] Basophils/100 WBC (Bld) 0.4 % 0.0 - 2.0 % [facility] Eosinophils (Bld) [#/Vol] 0.05 10*3/uL [facility] Eosinophils/100 WBC (Bld) 0.6 % 0.0 - 6.0 % [facility] Erythrocyte distribution width (RBC) [Ratio] 13.3 % 11.5 - 14.5 % [facility] Hematocrit (Bld) [Volume fraction] 42.2 % 36.0 - 46.0 % [facility] Hemoglobin (Bld) [Mass/Vol] 14.3 g/dL 12.0 - 16.0 g/dL [facility] Immature granulocytes (Bld) [#/Vol] 0.08 10*3/uL [facility] Immature granulocytes/100 WBC (Bld) 1.0 % High 0.0 - 0.9 % [facility] Comment on above: Immature Granulocyte Count (IG) includes promyelocytes, myelocytes and metamyelocytes but does not include bands. Percent differential counts (%) should be interpreted in the context of the absolute cell counts (cells/UL). Interpretation and review of laboratory results Abnormal [facility] Lymphocytes (Bld) [#/Vol] 1.89 10*3/uL [facility] Lymphocytes/100 WBC (Bld) 23.5 % 13.0 - 44.0 % [facility] MCH (RBC) [Entitic mass] 30.4 pg 26.0 - 34.0 pg [facility] MCHC (RBC) [Mass/Vol] 33.9 g/dL 32.0 - 36.0 g/dL [facility] MCV (RBC) [Entitic vol] 90 fL 80 - 100 fL [facility] Monocytes (Bld) [#/Vol] 0.47 10*3/uL [facility] Monocytes/100 WBC (Bld) 5.9 % 2.0 - 10.0 % [facility] Neutrophils (Bld) [#/Vol] 5.51 10*3/uL [facility] Comment on above: Percent differential counts (%) should be interpreted in the context of the absolute cell counts (cells/uL). Neutrophils/100 WBC (Bld) 68.6 % 40.0 - 80.0 % [facility] Nucleated RBC/100 WBC (Bld) [Ratio] 0.0 % [facility] Platelets (Bld) [#/Vol] 113 10*3/uL Low [facility] RBC (Bld) [#/Vol] 4.71 10*6/uL [facility] WBC (Bld) [#/Vol] 8.0 10*3/uL [facility] Basophils (Bld) [#/Vol] 0.03 x10*3/uL Normal 0.00-0.10 [facility] Comment on above: Performed By: #### 5 7021-8 #### JIMBO ANTHONY ([id number]) [facility] ([facility]) [address] [place] [address] 97282 Basophils/100 WBC (Bld) 0.4 % Normal 0.0-2.0 [facility] Comment on above: Performed By: #### 7021-8 #### JIMBO ANTHONY ([id number]) [facility] ([facility]) [address] [place] [address] 68350 Eosinophils (Bld) [#/Vol] 0.05 x10*3/uL Normal 0.00-0.70 [facility] Comment on above: Performed By: #### 7021-8 #### JIMBO ANTHONY ([id number]) [facility] ([facility]) [address] [place] [address] 88451 Eosinophils/100 WBC (Bld) 0.6 % Normal 0.0-6.0 [facility] Comment on above: Performed By: #### 7021-8 #### JIMBO ANTHONY ([id number]) [facility] ([facility]) [address] [place] [address] 40853 Erythrocyte distribution width (RBC) [Ratio] 13.3 % Normal 11.5-14.5 [facility] Comment on above: Performed By: #### 7021-8 #### JIMBO ANTHONY ([id number]) [facility] ([facility]) [address] [place] [address] 39139 Hematocrit (Bld) [Volume fraction] 42.2 % Normal 36.0-46.0 [facility] Comment on above: Performed By: #### 7021-8 #### JIMBO ANTHONY ([id number]) [facility] ([facility]) [address] [place] [address] 51900 Hemoglobin (Bld) [Mass/Vol] 14.3 g/dL Normal 12.0-16.0 [facility] Comment on above: Performed By: #### 5 7021-8 #### JIMBO ANTHONY ([id number]) [facility] ([facility]) [address] [place] [address] 87039 Immature granulocytes (Bld) [#/Vol] 0.08 x10*3/uL Normal 0.00-0.70 [facility] Comment on above: Performed By: #### 5 7021-8 #### JIMBO ANTHONY ([id number]) [facility] ([facility]) [address] [place] [address] 28045 Immature granulocytes/100 WBC (Bld) 1.0 % High 0.0-0.9 [facility] Comment on above: Result Comment: Mira ture Granulocyte Count (IG) includes promyelocytes, myelocytes and metamyelocytes but does not include bands. Percent differential counts (%) should be interpreted in the context of the absolute cell counts (cells/UL). Performed By: #### 5 7021-8 #### JIMBO ANTHONY ([id number]) [facility] ([facility]) [address] [place] [address] 15432 Lymphocytes (Bld) [#/Vol] 1.89 x10*3/uL Normal 1.20-4.80 [facility] Comment on above: Performed By: #### 5 7021-8 #### JIMBO ANTHONY ([id number]) [facility] ([facility]) [address] [place] [address] 44013 Lymphocytes/100 WBC (Bld) 23.5 % Normal 13.0-44.0 [facility] Comment on above: Performed By: #### 5 7021-8 #### JIMBO ANTHONY ([id number]) [facility] ([facility]) [address] [place] [address] 56019 MCH (RBC) [Entitic mass] 30.4 pg Normal 26.0-34.0 [facility] Comment on above: Performed By: #### 5 7021-8 #### JIMBO ANTHONY ([id number]) [facility] ([facility]) [address] [place] [address] 93623 MCHC (RBC) [Mass/Vol] 33.9 g/dL Normal 32.0-36.0 [facility] Comment on above: Performed By: #### 5 7021-8 #### JIMBO ANTHONY ([id number]) [facility] ([facility]) [address] [place] [address] 97506 MCV (RBC) [Entitic vol] 90 fL Normal 80-100 [facility] Comment on above: Performed By: #### 5 7021-8 #### JIMBO ANTHONY ([id number]) [facility] ([facility]) [address] [place] [address] 28303 Monocytes (Bld) [#/Vol] 0.47 x10*3/uL Normal 0.10-1.00 [facility] Comment on above: Performed By: #### 5 7021-8 #### JIMBO ANTHONY ([id number]) [facility] ([facility]) [address] [place] [address] 95238 Monocytes/100 WBC (Bld) 5.9 % Normal 2.0-10.0 [facility] Comment on above: Performed By: #### 5 7021-8 #### JIMBO ANTHONY ([id number]) [facility] ([facility]) [address] [place] [address] 54197 Neutrophils (Bld) [#/Vol] 5.51 x10*3/uL Normal 1.20-7.70 [facility] Comment on above: Result Comment: Perc ent differential counts (%) should be interpreted in the context of the absolute cell counts (cells/uL). Performed By: #### 5 7021-8 #### JIMBO ANTHONY ([id number]) [facility] ([facility]) [address] [place] [address] 67944 Neutrophils/100 WBC (Bld) 68.6 % Normal 40.0-80.0 [facility] Comment on above: Performed By: #### 5 7021-8 #### JIMBO ANTHONY ([id number]) [facility] ([facility]) [address] [place] [address] 93571 Nucleated RBC/100 WBC (Bld) [Ratio] 0.0 /100 WBCs Normal 0.0-0.0 [facility] Comment on above: Performed By: #### 5 7021-8 #### JIMBO ANTHONY ([id number]) [facility] ([facility]) [address] [place] [address] Platelets (Bld) [#/Vol] 113 x10*3/uL Low 150-450 [facility] Comment on above: Performed By: #### 5 7021-8 #### JIMBO ANTHONY ([id number]) [facility] ([facility]) [facility] [place] [id number] RBC (Bld) [#/Vol] 4.71 x10*6/uL Normal 4.00-5.20 [facility] Comment on above: Performed By: #### 5 7021-8 #### JIMBO ANTHONY ([id number]) [facility] ([facility]) [address] [place] [address] WBC (Bld) [#/Vol] 8.0 x10*3/uL Normal 4.4-11.3 [facility] Comment on above: Performed By: #### 5 7021-8 #### JIMBO ANTHONY ([id number]) [facility] ([facility]) [address] [place] [address] CT ANGIO CHEST FOR PULMONARY EMBOLISMon 04-04-2023 CT ANGIO CHEST FOR PULMONARY EMBOLISM STUDY: CT Angiogram of the Chest; 04/04/23 at 10:10 AM INDICATION: New onset Afib. Leg pain. COMPARISON: CT AP 10/18/22. Chest XR 09/22/21. ACCESSION NUMBER(S): [id number] ORDERING CLINICIAN: BALBIR TAVARES TECHNIQUE: CTA of the chest was performed with intravenous contrast. Images are reviewed and processed at a workstation according to the CT angiogram protocol with 3-D and/or MIP post processing imaging generated. Omnipaque 350 68 mL was administered intravenously. Automated mA/kV exposure control was utilized and patient examination was performed in strict accordance with principles of ALARA. FINDINGS: Pulmonary arteries are adequately opacified without acute or chronic filling defects. The thoracic aorta is normal in course and caliber without dissection or aneurysm. The heart is normal in size without pericardial effusion. Mild to moderate coronary artery calcifications. Thoracic lymph nodes are not enlarged. There is no pleural effusion, pleural thickening, or pneumothorax. Mild diffuse bronchial wall thickening with some associated mucous plugging in the right lower lobe. Minimal ground glass opacities in the right upper lobe. There is fatty infiltration of the liver with cirrhotic morphology of the liver. Spleen is mildly enlarged. Right adrenal adenoma measuring 1.8 cm. Gallbladder is absent. There are no acute fractures. No suspicious bony lesions. IMPRESSION: 1. No pulmonary embolism. 2. Mild diffuse bronchial wall thickening with some associated mucous plugging in the right lower lobe. Minimal ground glass opacities in the right upper lobe. Findings suggestive of bronchitis. 3. Mild to moderate coronary artery calcifications. 4. Hepatic steatosis with morphologic changes of underlying cirrhosis. 5. Right adrenal adenoma. Signed by Loyd Diaz MD [facility] CT Chest W contrast IV and C T angiogram Pulmonary arteries for pulmonary embolus W contrast Christine 04-04-2023 1. No pulmonary embolism. 2. Mild diffuse bronchial wall thickening with some associated mucous plugging in the right lower lobe. Minimal ground glass opacities in the right upper lobe. Findings suggestive of bronchitis. 3. Mild to moderate coronary artery calcifications. 4. Hepatic steatosis with morphologic changes of underlying cirrhosis. 5. Right adrenal adenoma. Signed by Loyd Diaz MD TELERADIOLOGY STUDY: CT Angiogram of the Chest; 04/04/23 at 10:10 AM INDICATION: New onset Afib. Leg pain. COMPARISON: CT AP 10/18/22. Chest XR 09/22/21. ACCESSION NUMBER(S): [id number] ORDERING CLINICIAN: BALBIR TAVARES TECHNIQUE: CTA of the chest was performed with intravenous contrast. Images are reviewed and processed at a workstation according to the CT angiogram protocol with 3-D and/or MIP post processing imaging generated. Omnipaque 350 68 mL was administered intravenously. Automated mA/kV exposure control was utilized and patient examination was performed in strict accordance with principles of ALARA. FINDINGS: Pulmonary arteries are adequately opacified without acute or chronic filling defects. The thoracic aorta is normal in course and caliber without dissection or aneurysm. The heart is normal in size without pericardial effusion. Mild to moderate coronary artery calcifications. Thoracic lymph nodes are not enlarged. There is no pleural effusion, pleural thickening, or pneumothorax. Mild diffuse bronchial wall thickening with some associated mucous plugging in the right lower lobe. Minimal ground glass opacities in the right upper lobe. There is fatty infiltration of the liver with cirrhotic morphology of the liver. Spleen is mildly enlarged. Right adrenal adenoma measuring 1.8 cm. Gallbladder is absent. There are no acute fractures. No suspicious bony lesions. TELERADIOLOGY Loyd Diaz MD - 04/04/2023 STUDY: CT Angiogram of the Chest; 04/04/23 at 10:10 AM INDICATION: New onset Afib. Leg pain. COMPARISON: CT AP 10/18/22. Chest XR 09/22/21. ACCESSION NUMBER(S): [id number] ORDERING CLINICIAN: BALBIR TAVARES TECHNIQUE: CTA of the chest was performed with intravenous contrast. Images are reviewed and processed at a workstation according to the CT angiogram protocol with 3-D and/or MIP post processing imaging generated. Omnipaque 350 68 mL was administered intravenously. Automated mA/kV exposure control was utilized and patient examination was performed in strict accordance with principles of ALARA. FINDINGS: Pulmonary arteries are adequately opacified without acute or chronic filling defects. The thoracic aorta is normal in course and caliber without dissection or aneurysm. The heart is normal in size without pericardial effusion. Mild to moderate coronary artery calcifications. Thoracic lymph nodes are not enlarged. There is no pleural effusion, pleural thickening, or pneumothorax. Mild diffuse bronchial wall thickening with some associated mucous plugging in the right lower lobe. Minimal ground glass opacities in the right upper lobe. There is fatty infiltration of the liver with cirrhotic morphology of the liver. Spleen is mildly enlarged. Right adrenal adenoma measuring 1.8 cm. Gallbladder is absent. There are no acute fractures. No suspicious bony lesions. IMPRESSION: 1. No pulmonary embolism. 2. Mild diffuse bronchial wall thickening with some associated mucous plugging in the right lower lobe. Minimal ground glass opacities in the right upper lobe. Findings suggestive of bronchitis. 3. Mild to moderate coronary artery calcifications. 4. Hepatic steatosis with morphologic changes of underlying cirrhosis. 5. Right adrenal adenoma. Signed by Loyd Diaz MD [facility] Work Phone: Radiology Study observation (narrative) [facility] Work Phone: CT Chest W contrast IV and C T angiogram Pulmonary arteries for pulmonary embolus W contrast IVOrdered By: Loyd Diaz on 04-04-2023 [facility] Work Phone: Coagulation surface inducedo n 04-04-2023 aPTT Coag (PPP) [Time] 34 s Normal 27-38 Un [facility] Comment on above: Order Comment: The A PTT is no longer used for monitoring Unfractionated Heparin Therapy. For monitoring Heparin Therapy, use the Heparin Assay. Performed By: #### 1 4979-9 #### JIMBO ANTHONY ([id number]) [facility] ([facility]) [address] [place], [place] [id number] Coagulation tissue factor in ducedon 04-04-2023 PT Coag (PPP) [Time] 12.7 s Normal 9.8-12.8 [facility] Comment on above: Performed By: #### 5 902-2 #### JIMBO ANTHONY ([id number]) [facility] ([facility]) [facility] [place] [address] Comprehensive metabolic 2000 panelon 04-04-2023 Albumin BCP dye [Mass/Vol] 3.1 g/dL Low 3.4 - 5.0 g/dL [facility] ALP [Catalytic activity/Vol] 82 U/L 33 - 136 U/L [facility] ALT With P-5'-P [Catalytic activity/Vol] 11 U/L 7 - 45 U/L [facility] Comment on above: Patients treated wit h Sulfasalazine may generate falsely decreased results for ALT. Anion gap [Moles/Vol] 11 mmol/L 10 - 2 0 mmol/L [facility] AST With P-5'-P [Catalytic activity/Vol] 14 U/L 9 - 39 U/L [facility] Bilirubin [Mass/Vol] 0.4 mg/dL 0.0 - 1 .2 mg/dL [facility] Calcium [Mass/Vol] 8.4 mg/dL Low 8.6 - 10. 3 mg/dL [facility] Chloride [Moles/Vol] 104 mmol/L 98 - 10 7 mmol/L [facility] CO2 [Moles/Vol] 27 mmol/L 21 - 32 mmol/L [facility] Creatinine [Mass/Vol] 1.04 mg/dL 0.50 - 1.05 mg/dL [facility] GFR/1.73 sq M.predicted MDRD (S/P/Bld) [Vol rate/Area] 59 mL/min/{1.73_m2} Low - PINF [facility] Comment on above: Calculations of roxann mated GFR are performed using the 2020 CKD-EPI Study Refit equation without the race variable for the IDMS-Traceable creatinine methods. https://jasn.asnjournals.org/content/early/ASN.28054 04355 Glucose [Mass/Vol] 136 mg/dL High 74 - 99 mg/dL [facility] Interpretation and review of laboratory results Abnormal [facility] Potassium [Moles/Vol] 3.9 mmol/L 3.5 - 5.3 mmol/L [facility] Protein [Mass/Vol] 6.7 g/dL 6.4 - 8.2 g/dL [facility] Sodium [Moles/Vol] 138 mmol/L 136 - 145 mmol/L [facility] Urea nitrogen [Mass/Vol] 9 mg/dL 6 - 23 mg/dL [facility] Albumin BCP dye [Mass/Vol] 3.1 g/dL Low 3.4-5.0 [facility] Comment on above: Performed By: #### 2 4323-8 #### JIMBO ANTHONY ([id number]) [facility] ([facility]) [address] [place] [address] ALP [Catalytic activity/Vol] 82 U/L Normal 33-136 [facility] Comment on above: Performed By: #### 2 4323-8 #### JIMBO ANTHONY ([id number]) [facility] ([facility]) [facility] [place] [address] ALT With P-5'-P [Catalytic activity/Vol] 11 U/L Normal 7-45 [facility] Comment on above: Result Comment: Stephany ents treated with Sulfasalazine may generate falsely decreased results for ALT. Performed By: #### 2 4323-8 #### JIMBO ANTHONY ([id number]) [facility] ([facility]) [address] [place] [address] Anion gap [Moles/Vol] 11 mmol/L Normal 10-20 [facility] Comment on above: Performed By: #### 2 4323-8 #### JIMBO ANTHONY ([id number]) [facility] ([facility]) [address] [place] [address] AST With P-5'-P [Catalytic activity/Vol] 14 U/L Normal 9-39 [facility] Comment on above: Performed By: #### 2 4323-8 #### JIMBO ANTHONY ([id number]) [facility] ([facility]) [address] [place] [address] Bilirubin [Mass/Vol] 0.4 mg/dL Normal 0.0-1.2 [facility] Comment on above: Performed By: #### 2 432-8 #### JIMBO ANTHONY ([id number]) [facility] ([facility]) [address] [place] [address] Calcium [Mass/Vol] 8.4 mg/dL Low 8.6-10.3 [facility] Comment on above: Performed By: #### 2 4322-8 #### JIMBO ANTHONY ([id number]) [facility] ([facility]) [address] [place] [address] Chloride [Moles/Vol] 104 mmol/L Normal 98-107 [facility] Comment on above: Performed By: #### 2 4322-8 #### JIMBO ANTHONY ([id number]) [facility] ([facility]) [facility] [place] [address] CO2 [Moles/Vol] 27 mmol/L Normal 21-32 [facility] Comment on above: Performed By: #### 2 3-8 #### JIMBO ANTHONY ([id number]) [facility] ([facility]) [address] [place] [address] Creatinine [Mass/Vol] 1.04 mg/dL Normal 0.50-1.05 [facility] Comment on above: Performed By: #### 2 4322-8 #### JIMBO ANTHONY ([id number]) [facility] ([facility]) [address] [place] [address] GFR/1.73 sq M.predicted MDRD (S/P/Bld) [Vol rate/Area] 59 mL/min/1.73m*2 Low >60 [facility] Comment on above: Result Comment: Calc ulations of estimated GFR are performed using the 2020 CKD-EPI Study Refit equation without the race variable for the IDMS-Traceable creatinine methods. https://jasn.asnjournals.org/content/early//ASN.47252 87899 Performed By: #### 2 4323-8 #### JIMBO ANTHONY ([id number]) [facility] ([facility]) [address] [place] [address] Glucose [Mass/Vol] 136 mg/dL High 74-99 [facility] Comment on above: Performed By: #### 2 432-8 #### JIMBO ANTHONY ([id number]) [facility] ([facility]) [address] [place] [address] Potassium [Moles/Vol] 3.9 mmol/L Normal 3.5-5.3 [facility] Comment on above: Performed By: #### 2 4323-8 #### JIMBO ANTHONY ([id number]) [facility] ([facility]) [address] [place] [address] Protein [Mass/Vol] 6.7 g/dL Normal 6.4-8.2 [facility] Comment on above: Performed By: #### 2 4323-8 #### JIMBO ANTHONY ([id number]) [facility] ([facility]) [address] [place] [address] Sodium [Moles/Vol] 138 mmol/L Normal 136-145 [facility] Comment on above: Performed By: #### 2 4323-8 #### JIMBO ANTHONY ([id number]) [facility] ([facility]) [address] [place] [address] Urea nitrogen [Mass/Vol] 9 mg/dL Normal 6- [facility] Comment on above: Performed By: #### 2 4323-8 #### CHOI GABRIELLE ([id number]) [facility] ([facility]) [address] [place] [address] ECG 12-LEADon 04-04-2023 ECG 12-LEAD Ventricular Rate 137 Atrial Rate 137 P-R Interval 82 QRS Duration 62 Q-T Interval 376 QTC Calculation(Bazett) 567 R Alpine -6 T Alpine 7 QRS Count 22 Q Onset 219 P Onset 178 P Offset 205 T Offset 407 QTC Fredericia 495 Diagnosis Sinus tachycardia with short [place] Low voltage QRS Borderline ECG When compared with ECG of 04-APR-2023 12:43, (unconfirmed) Questionable change in QRS axis ST no longer depressed in Inferior leads ST no longer depressed in Anterolateral leads See ED provider note for full interpretation and clinical correlation Confirmed by Mignon Hauser ([id number]) on 04/20/2023 3:06:17 PM Normal [facility] ECG 12-LEAD Ventricular Rate 140 Atrial Rate 140 P-R Interval 74 QRS Duration 62 Q-T Interval 340 QTC Calculation(Bazett) 519 R Alpine 5 T Alpine 29 QRS Count 23 Q Onset 231 P Onset 194 P Offset 225 T Offset 401 QTC Fredericia 451 Diagnosis Sinus tachycardia with short [place] with occasional Premature ventricular complexes Low voltage QRS T wave abnormality, consider inferior ischemia T wave abnormality, consider anterior ischemia Abnormal ECG When compared with ECG of 04-APR-2023 08:26, (unconfirmed) Significant changes have occurred See ED provider note for full interpretation and clinical correlation Confirmed by Mignon Hauser ([id number]) on 04/20/2023 3:04:43 PM Normal [facility] Extra Urine Haley Tubeon 03-12 Extra Tube Hold for add-ons. [facility] Comment on above: Auto resulted. [facility] FLUAV and FLUBV RNA JACKIE+prob e Nom (Unsp spec)on 04-04-2023 FLUAV RNA JACKIE+probe Ql (Resp) Not detected Not Detected [facility] FLUBV RNA JACKIE+probe Ql (Resp) Not detected Not Detected [facility] This assay is an in vitro diagnostic multiplex nucleic acid amplification test for the detection and discrimination of Influenza A & B from nasopharyngeal specimens, and has been validated for use at [facility]. Negative results do not preclude Influenza A/B infections, and should not be used as the sole basis for diagnosis, treatment, or other management decisions. If Influenza A/B and RSV PCR results are negative, testing for Parainfluenza virus, Adenovirus and Metapneumovirus is routinely performed for [facility] pediatric oncology and intensive care inpatients, and is available on other patients by placing an add-on request. [facility] FLUAV RNA JACKIE+probe Ql (Resp) Not detected Normal Not Detected [facility] Comment on above: Order Comment: Less than 99th percentile of normal range cutoff- Female and children under 18 years old <14 ng/L; Male <21 ng/L: Negative Repeat testing should be performed if clinically indicated. Female and children under 18 years old 14-50 ng/L; Male 21-50 ng/L: Consistent with possible cardiac damage and possible increased clinical risk. Serial measurements may help to assess extent of myocardial damage. >50 ng/L: Consistent with cardiac damage, increased clinical risk and myocardial infarction. Serial measurements may help assess extent of myocardial damage. NOTE: Children less than 1 year old may have higher baseline troponin levels and results should be interpreted in conjunction with the overall clinical context. NOTE: Troponin I testing is performed using a different testing methodology at [facility] than at [facility]. Direct result comparisons should only be made within the same method. Performed By: #### 8 9577-1 #### CHOI GABRIELLE ([id number]) [facility] ([facility]) [address] [place] [address] FLUBV RNA JACKIE+probe Ql (Resp) Not detected Normal Not Detected [facility] Comment on above: Order Comment: Less than 99th percentile of normal range cutoff- Female and children under 18 years old <14 ng/L; Male <21 ng/L: Negative Repeat testing should be performed if clinically indicated. Female and children under 18 years old 14-50 ng/L; Male 21-50 ng/L: Consistent with possible cardiac damage and possible increased clinical risk. Serial measurements may help to assess extent of myocardial damage. >50 ng/L: Consistent with cardiac damage, increased clinical risk and myocardial infarction. Serial measurements may help assess extent of myocardial damage. NOTE: Children less than 1 year old may have higher baseline troponin levels and results should be interpreted in conjunction with the overall clinical context. NOTE: Troponin I testing is performed using a different testing methodology at [facility] than at other [facility]. Direct result comparisons should only be made within the same method. Performed By: #### 8 9577-1 #### JIMBO ANTHONY ([id number]) [facility] ([facility]) [address] [place] [address] Glucose Test strip manual (B ld) [Mass/Vol]on 04-04-2023 Glucose [Mass/Vol] 293 mg/dL High 74 - 99 mg/dL [facility] Interpretation and review of laboratory results Abnormal [facility] Glucose [Mass/Vol] 293 mg/dL High 74-99 [facility] Comment on above: Performed By: #### 8 9577-1 #### JIMBO ANTHONY ([id number]) [facility] ([facility]) [address] [place] [address] Glucose [Mass/Vol] 231 mg/dL High 74 - 99 mg/dL [facility] Interpretation and review of laboratory results Abnormal [facility] Glucose [Mass/Vol] 231 mg/dL High 74-99 [facility] Comment on above: Performed By: #### 8 9577-1 #### JIMBO ANTHONY ([id number]) [facility] ([facility]) [address] [place] [address] Magnesiumon 04-04-2023 Magnesium [Mass/Vol] 1.24 mg/dL Low 1.60 - 2.40 mg/dL [facility] Magnesium [Mass/Vol] 1.24 mg/dL Low 1.60-2.40 [facility] Comment on above: Performed By: #### 1 9123-9 #### JIMBO ANTHONY ([id number]) [facility] ([facility]) [address] [place] [address] Magnesium [Mass/Vol]on 04-04 Interpretation and review of laboratory results Abnormal [facility] No Panel Informationon 04-04 Interpretation and review of laboratory results Normal [facility] Interpretation and review of laboratory results Normal [facility] Interpretation and review of laboratory results Normal [facility] PT Coag (PPP) [Time]on 04-04 INR Coag (PPP) [Relative time] 1.1 {INR} 0.9 - 1.1 [facility] INR Coag (PPP) [Relative time] 1.1 Normal 0.9-1.1 [facility] Comment on above: Performed By: #### 5 902-2 #### JIMBO ANTHONY ([id number]) [facility] ([facility]) [address] [place] [address] Protime-INRon 04-04-2023 PT Coag (PPP) [Time] 12.7 s [facility] SARS coronavirus 2 RNAon SARS-CoV-2 (COVID-19) RNA JACKIE+probe Ql (Resp) Not detected Normal Not Detected [facility] Comment on above: Order Comment: Less than 99th percentile of normal range cutoff- Female and children under 18 years old <14 ng/L; Male <21 ng/L: Negative Repeat testing should be performed if clinically indicated. Female and children under 18 years old 14-50 ng/L; Male 21-50 ng/L: Consistent with possible cardiac damage and possible increased clinical risk. Serial measurements may help to assess extent of myocardial damage. >50 ng/L: Consistent with cardiac damage, increased clinical risk and myocardial infarction. Serial measurements may help assess extent of myocardial damage. NOTE: Children less than 1 year old may have higher baseline troponin levels and results should be interpreted in conjunction with the overall clinical context. NOTE: Troponin I testing is performed using a different testing methodology at [facility] than at other [facility]. Direct result comparisons should only be made within the same method. Performed By: #### 8 9577-1 #### JIMBO ANTHONY ([id number]) [facility] ([facility]) [address] [place] [address] SARS-CoV-2 (COVID-19) RNA NA A+probe Ql (Resp)on 04-04-2023 This assay has received FDA Emergency Use Authorization (EUA) and is only authorized for the duration of time that circumstances exist to justify the authorization of the emergency use of in vitro diagnostic tests for the detection of SARS-CoV-2 virus and/or diagnosis of COVID-19 infection under section 564(b)(1) of the Act, 21 U.S.C. 360bbb-3(b)(1). This assay is an in vitro diagnostic nucleic acid amplification test for the qualitative detection of SARS-CoV-2 from nasopharyngeal specimens and has been validated for use at [facility]. Negative results do not preclude COVID-19 infections and should not be used as the sole basis for diagnosis, treatment, or other management decisions. [facility] SARS-CoV-2 RT PCRon 04-04-20 23 SARS-CoV-2 (COVID-19) RNA JACKIE+probe Ql (Resp) Not detected Not Detected [facility] TSH WITH REFLEX TO FREE T4 I F ABNORMALon 04-04-2023 TSH Qn 2.91 m[IU]/L Normal 0.44-3.98 [facility] Comment on above: Order Comment: Less than 99th percentile of normal range cutoff- Female and children under 18 years old <14 ng/L; Male <21 ng/L: Negative Repeat testing should be performed if clinically indicated. Female and children under 18 years old 14-50 ng/L; Male 21-50 ng/L: Consistent with possible cardiac damage and possible increased clinical risk. Serial measurements may help to assess extent of myocardial damage. >50 ng/L: Consistent with cardiac damage, increased clinical risk and myocardial infarction. Serial measurements may help assess extent of myocardial damage. NOTE: Children less than 1 year old may have higher baseline troponin levels and results should be interpreted in conjunction with the overall clinical context. NOTE: Troponin I testing is performed using a different testing methodology at [facility] than at other [facility]. Direct result comparisons should only be made within the same method. Performed By: #### 8 9577-1 #### CHOI GABRIELLE ([id number]) [facility] ([facility]) [address] [place] [address] TSH with reflex to Free T4 i f abnormalon 04-04-2023 TSH Qn 2.91 m[IU]/L [facility] TSH testing is performed using different testing methodology at [facility] than at other [facility]. Direct result comparisons should only be made within the same method. [facility] Tropinin I.cardiac panel Hig h sensitivity methodon 04-04-2023 Less than 99th percentile of normal range cutoff- Female and children under 18 years old <14 ng/L; Male <21 ng/L: Negative Repeat testing should be performed if clinically indicated. Female and children under 18 years old 14-50 ng/L; Male 21-50 ng/L: Consistent with possible cardiac damage and possible increased clinical risk. Serial measurements may help to assess extent of myocardial damage. >50 ng/L: Consistent with cardiac damage, increased clinical risk and myocardial infarction. Serial measurements may help assess extent of myocardial damage. NOTE: Children less than 1 year old may have higher baseline troponin levels and results should be interpreted in conjunction with the overall clinical context. NOTE: Troponin I testing is performed using a different testing methodology at [facility] than at other [facility]. Direct result comparisons should only be made within the same method. [facility] Interpretation and review of laboratory results Normal [facility] Less than 99th percentile of normal range cutoff- Female and children under 18 years old <14 ng/L; Male <21 ng/L: Negative Repeat testing should be performed if clinically indicated. Female and children under 18 years old 14-50 ng/L; Male 21-50 ng/L: Consistent with possible cardiac damage and possible increased clinical risk. Serial measurements may help to assess extent of myocardial damage. >50 ng/L: Consistent with cardiac damage, increased clinical risk and myocardial infarction. Serial measurements may help assess extent of myocardial damage. NOTE: Children less than 1 year old may have higher baseline troponin levels and results should be interpreted in conjunction with the overall clinical context. NOTE: Troponin I testing is performed using a different testing methodology at [facility] than at other [facility]. Direct result comparisons should only be made within the same method. [facility] Troponin I, High Sensitivity on 04-04-2023 Tropinin I.cardiac panel High sensitivity method 4 ng/L 0 - 13 ng/L [facility] Tropinin I.cardiac panel High sensitivity method 5 ng/L 0 - 13 ng/L [facility] Troponin I.cardiac panelon 1 06-05-2022 Tropinin I.cardiac panel High sensitivity method 4 ng/L Normal 0-13 [facility] Comment on above: Order Comment: Less than 99th percentile of normal range cutoff- Female and children under 18 years old <14 ng/L; Male <21 ng/L: Negative Repeat testing should be performed if clinically indicated. Female and children under 18 years old 14-50 ng/L; Male 21-50 ng/L: Consistent with possible cardiac damage and possible increased clinical risk. Serial measurements may help to assess extent of myocardial damage. >50 ng/L: Consistent with cardiac damage, increased clinical risk and myocardial infarction. Serial measurements may help assess extent of myocardial damage. NOTE: Children less than 1 year old may have higher baseline troponin levels and results should be interpreted in conjunction with the overall clinical context. NOTE: Troponin I testing is performed using a different testing methodology at [facility] than at [facility]. Direct result comparisons should only be made within the same method. Performed By: #### 8 9577-1 #### JIMBO ANTHONY ([id number]) [facility] ([facility]) [address] [place] [address] Tropinin I.cardiac panel High sensitivity method 5 ng/L Normal 0-13 [facility] Comment on above: Order Comment: Less than 99th percentile of normal range cutoff- Female and children under 18 years old <14 ng/L; Male <21 ng/L: Negative Repeat testing should be performed if clinically indicated. Female and children under 18 years old 14-50 ng/L; Male 21-50 ng/L: Consistent with possible cardiac damage and possible increased clinical risk. Serial measurements may help to assess extent of myocardial damage. >50 ng/L: Consistent with cardiac damage, increased clinical risk and myocardial infarction. Serial measurements may help assess extent of myocardial damage. NOTE: Children less than 1 year old may have higher baseline troponin levels and results should be interpreted in conjunction with the overall clinical context. NOTE: Troponin I testing is performed using a different testing methodology at [facility] than at other [facility]. Direct result comparisons should only be made within the same method. Performed By: #### 8 9577-1 #### JIMBO ANTHONY ([id number]) [facility] ([facility]) [address] [place], [place] [id number] Urinalysis complete W Reflex Culture panel (U)on 04-04-2023 Appearance (U) Hazy Abnormal Clear [facility] Bacteria Auto (Urine sed) [#/Area] 1+ Abnormal NONE SEEN /HPF [facility] Bilirubin (U) [Mass/Vol] Negative NEGATIVE [facility] Color (U) Yellow Straw, Yellow [facility] Epithelial cells.squamous Auto (Urine sed) [#/Area] 1-9 (SPARSE) Reference range not established. /HPF [facility] Glucose Auto test strip (U) [Mass/Vol] Negative NEGATIVE mg/dL [facility] Interpretation and review of laboratory results Abnormal [facility] Ketones (U) [Mass/Vol] Negative NEGAT ABDELRAHMAN mg/dL [facility] Leukocyte esterase Auto test strip Ql (U) Negative NEGATIVE [facility] Nitrite Auto test strip Ql (U) Negative NEGATIVE [facility] pH (U) 5.0 [pH] 5.0, 5.5, 6.0, 6.5, 7.0, 7.5, 8.0 [facility] Protein (U) [Mass/Vol] 100 (2+) Abnormal NEGAT ABDELRAHMAN mg/dL [facility] RBC (U) [#/Vol] SMALL (1+) Abnormal NEGATIVE [facility] RBC Auto (Urine sed) [#/Area] 1-2 NONE, 1-2, 3-5 /HPF [facility] Specific gravity (U) [Rel density] 1.026 1.005 - 1.035 [facility] Urobilinogen (U) [Mass/Vol] mg/dL NINF - 2.0 mg/dL [facility] WBC Auto (Urine sed) [#/Area] 1-5 1-5, NONE /HPF [facility] Appearance (U) Hazy Normal Clear [facility] Comment on above: Performed By: #### 5 8077-9 #### JIMBO ANTHONY ([id number]) [facility] ([facility]) [address] [place] [address] Bacteria Auto (Urine sed) [#/Area] 1+ /HPF Abnormal NONE SEEN [facility] Comment on above: Performed By: #### 5 8077-9 #### JIMBO ANTHONY ([id number]) [facility] ([facility]) [address] [place] [address] 28881 Bilirubin (U) [Mass/Vol] Negative Normal NEGATIVE [facility] Comment on above: Performed By: #### 5 8077-9 #### JIMBO ANTHONY ([id number]) [facility] ([facility]) [address] [place], [place] [address] Color (U) Yellow Normal Straw, Yellow [facility] Comment on above: Performed By: #### 5 8077-9 #### JIMBO ANTHONY ([id number]) [facility] ([facility]) [address] [place], [place] [address] Epithelial cells.squamous Auto (Urine sed) [#/Area] 1-9 (SPARSE) Normal Reference range not established. [facility] Comment on above: Performed By: #### 5 8077-9 #### JIMBO ANTHONY ([id number]) [facility] ([facility]) [address] [place], [place] [address] Glucose Auto test strip (U) [Mass/Vol] Negative Normal NEGATIVE [facility] Comment on above: Performed By: #### 5 8077-9 #### JIMBO ANTHONY ([id number]) [facility] ([facility]) [address] [place], [place] [address] Ketones (U) [Mass/Vol] Negative [facility] above: Performed By: #### 5 8077-9 #### JIMBO ANTHONY ([id number]) [facility] ([facility]) [address] [place] [address] 49707 Leukocyte esterase Auto test strip Ql (U) Negative Normal NEGATIVE [facility] Comment on above: Performed By: #### 5 8077-9 #### JIMBO ANTHONY ([id number]) [facility] ([facility]) [address] [place] [address] 03726 Nitrite Auto test strip Ql (U) Negative Normal NEGATIVE [facility] Comment on above: Performed By: #### 5 8077-9 #### JIMBO ANTHONY ([id number]) [facility] ([facility]) [address] [place] [address] 12575 pH (U) 5.0 [pH] Normal 5.0, 5.5, 6.0, 6.5, 7.0, 7.5, 8.0 [facility] Comment on above: Performed By: #### 5 8077-9 #### JIMBO ANTHONY ([id number]) [facility] ([facility]) [address] [place] [address] Protein (U) [Mass/Vol] 100 (2+) Normal NEGATIVE [facility] Comment on above: Performed By: #### 5 8077-9 #### JIMBO ANTHONY ([id number]) [facility] ([facility]) [address] [place] [address] RBC (U) [#/Vol] SMALL (1+) Abnormal NEGATIVE [facility] Comment on above: Performed By: #### 5 8077-9 #### JIMBO ANTHONY ([id number]) [facility] ([facility]) [address] [place] [address] 99242 RBC Auto (Urine sed) [#/Area] 1-2 Normal NONE, 1-2, 3-5 [facility] Comment on above: Performed By: #### 5 8077-9 #### JIMBO ANTHONY ([id number]) [facility] ([facility]) [address] [place], [place] [address] Specific gravity (U) [Rel density] 1.026 Normal 1.005-1.035 [facility] Comment on above: Performed By: #### 5 8077-9 #### JIMBO ANTHONY ([id number]) [facility] ([facility]) [address] [place] [address] 35324 Urobilinogen (U) [Mass/Vol] mg/dL Normal <2.0 [facility] Comment on above: Performed By: #### 5 8077-9 #### JIMBO ANTHONY ([id number]) [facility] ([facility]) [address] [place], [place] [address] WBC Auto (Urine sed) [#/Area] 1-5 Normal 1-5, NONE [facility] Comment on above: Performed By: #### 5 8077-9 #### CHOI GABRIELLE ([id number]) [facility] ([facility]) [address] [place] [address] XR KNEE LEFT 4+ VIEWSon 03-12 XR KNEE LEFT 4+ VIEWS Interpreted By: Sharyn Carranza, STUDY: XR KNEE LEFT 4+ VIEWS; ; 04/04/2023 12:22 pm INDICATION: Signs/Symptoms:knee pain. COMPARISON: None. ACCESSION NUMBER(S): [id number] ORDERING CLINICIAN: BALBIR TAVARES FINDINGS: Minimal medial compartment narrowing. No acute fracture dislocation or bone lesion. No joint effusion. IMPRESSION: No acute findings. MACRO: None Signed by: Sharyn Carranza 04/04/2023 12:31 PM Dictation workstation: [employer] Normal [facility] XR Knee - left 4 Viewson No acute findings. MACRO: None Signed by: Sharyn Carranza 04/04/2023 12:31 PM Dictation workstation: [id number] MMODAL Interpreted By: Sharyn Carranza STUDY: XR KNEE LEFT 4+ VIEWS; ; 04/04/2023 12:22 pm INDICATION: Signs/Symptoms:knee pain. COMPARISON: None. ACCESSION NUMBER(S): [id number] ORDERING CLINICIAN: BALBIR TAVARES FINDINGS: Minimal medial compartment narrowing. No acute fracture dislocation or bone lesion. No joint effusion. [facility] MMODAL Sharyn Carranza MD - 04/04/2023 Interpreted By: Sharyn Carranza, STUDY: XR KNEE LEFT 4+ VIEWS; ; 04/04/2023 12:22 pm INDICATION: Signs/Symptoms:knee pain. COMPARISON: None. ACCESSION NUMBER(S): [id number] ORDERING CLINICIAN: BALBIR TAVARES FINDINGS: Minimal medial compartment narrowing. No acute fracture dislocation or bone lesion. No joint effusion. IMPRESSION: No acute findings. MACRO: None Signed by: Sharyn Carranza 04/04/2023 12:31 PM Dictation workstation: [id number] [facility] Work Phone: Radiology Study observation (narrative) [facility] Work Phone: XR Knee - left 4 ViewsOrdere d By: Sharyn Carranza on 04-04-2023 [facility] Work Phone: aPTTon 04-04-2023 aPTT Coag (PPP) [Time] 34 [facility] (PPP) [Time]on The APTT is no longe r used for monitoring Unfractionated Heparin Therapy. For monitoring Heparin Therapy, use the Heparin Assay. [facility] L Inj/Asp: L kneeon 02-10-20 Shadia Daley, 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 02/09/2023 2:35 PM L Inj/Asp: L knee on 02/09/2023 2:33 PM Indications: pain and joint swelling Details: 22 G needle, ultrasound-guided superolateral approach Medications: 20 mg sodium hyaluronate 10 mg/mL(mw 2.4 -3.6 million) Outcome: tolerated well, no immediate complications Patient wishes to proceed via verbal consent. Skin was prepped with Betadine, Vapocoolant spray and alcohol. Direct visualization using high-frequency linear probe of ultrasound was utilized to administer the injection of Euflexxa. Images were saved under MRN number into the PACS system. Bandaid to site post injection, no bleeding. Procedure, treatment alternatives, risks and benefits explained, specific risks discussed. Consent was given by the patient. Immediately prior to procedure a time out was called to verify the correct patient, procedure, equipment, administrative support specialist and site/side marked as required. Patient was prepped and draped in the usual sterile fashion. [facility] Work Phone: [facility] Work Phone: CBC W Auto Differential pane l (Bld)on 02-07-2023 Basophils (Bld) [#/Vol] 0.03 x10*3/uL Normal 0.00-0.10 [facility] Comment on above: Performed By: #### 5 7021-8 #### JIMBO ANTHONY ([id number]) [facility] ([facility]) [address] [place] [address] 06899 Basophils/100 WBC (Bld) 0.4 % Normal 0.0-2.0 [facility] Comment on above: Performed By: #### 5 7021-8 #### JIMBO ANTHONY ([id number]) [facility] ([facility]) [address] [place] [address] 70066 Eosinophils (Bld) [#/Vol] 0.05 x10*3/uL Normal 0.00-0.70 [facility] Comment on above: Performed By: #### 5 7021-8 #### JIMBO ANTHONY ([id number]) [facility] ([facility]) [address] [place] [address] 29654 Eosinophils/100 WBC (Bld) 0.7 % Normal 0.0-6.0 [facility] Comment on above: Performed By: #### 7021-8 #### JIMBO ANTHONY ([id number]) [facility] ([facility]) [address] [place] [address] 15273 Erythrocyte distribution width (RBC) [Ratio] 13.8 % Normal 11.5-14.5 [facility] Comment on above: Performed By: #### 5 7021-8 #### JIMBO ANTHONY ([id number]) [facility] ([facility]) [address] [place] [address] 49212 Hematocrit (Bld) [Volume fraction] 45.1 % Normal 36.0-46.0 [facility] Comment on above: Performed By: #### 5 7021-8 #### JIMBO ANTHONY ([id number]) [facility] ([facility]) [address] [place] [address] 75610 Hemoglobin (Bld) [Mass/Vol] 14.5 g/dL Normal 12.0-16.0 [facility] Comment on above: Performed By: #### 5 7021-8 #### JIMBO ANTHONY ([id number]) [facility] ([facility]) [address] [place] [address] 35979 Immature granulocytes (Bld) [#/Vol] 0.05 x10*3/uL Normal 0.00-0.70 [facility] Comment on above: Performed By: #### 5 7021-8 #### JIMBO ANTHONY ([id number]) [facility] ([facility]) [address] [place] [address] 60992 Immature granulocytes/100 WBC (Bld) 0.7 % Normal 0.0-0.9 [facility] Comment on above: Result Comment: Mira ture Granulocyte Count (IG) includes promyelocytes, myelocytes and metamyelocytes but does not include bands. Percent differential counts (%) should be interpreted in the context of the absolute cell counts (cells/UL). Performed By: #### 5 7021-8 #### JIMBO ANTHONY ([id number]) [facility] ([facility]) [address] [place] [address] Lymphocytes (Bld) [#/Vol] 1.90 x10*3/uL Normal 1.20-4.80 [facility] Comment on above: Performed By: #### 5 7021-8 #### JIMBO ANTHONY ([id number]) [facility] ([facility]) [address] [place] [address] 39707 Lymphocytes/100 WBC (Bld) 25.5 % Normal 13.0-44.0 [facility] Comment on above: Performed By: #### 5 7021-8 #### JIMBO ANTHONY ([id number]) [facility] ([facility]) [address] [place] [address] 75030 MCH (RBC) [Entitic mass] 29.7 pg Normal 26.0-34.0 [facility] Comment on above: Performed By: #### 5 7021-8 #### JIMBO ANTHONY ([id number]) [facility] ([facility]) [address] [place] [address] 69047 MCHC (RBC) [Mass/Vol] 32.2 g/dL Normal 32.0-36.0 [facility] Comment on above: Performed By: #### 5 7021-8 #### JIMBO ANTHONY ([id number]) [facility] ([facility]) [address] [place] [address] 00243 MCV (RBC) [Entitic vol] 92 fL Normal 80-100 [facility] Comment on above: Performed By: #### 5 7021-8 #### JIMBO ANTHONY ([id number]) [facility] ([facility]) [address] [place] [address] 79103 Monocytes (Bld) [#/Vol] 0.42 x10*3/uL Normal 0.10-1.00 [facility] Comment on above: Performed By: #### 5 7021-8 #### JIMBO ANTHONY ([id number]) [facility] ([facility]) [address] [place] [address] 75346 Monocytes/100 WBC (Bld) 5.6 % Normal 2.0-10.0 [facility] Comment on above: Performed By: #### 5 7021-8 #### JIMBO ANTHONY ([id number]) [facility] ([facility]) [address] [place] [address] 10444 Neutrophils (Bld) [#/Vol] 5.01 x10*3/uL Normal 1.20-7.70 [facility] Comment on above: Result Comment: Perc ent differential counts (%) should be interpreted in the context of the absolute cell counts (cells/uL). Performed By: #### 5 7021-8 #### JIMBO ANTHONY ([id number]) [facility] ([facility]) [address] [place] [address] 63440 Neutrophils/100 WBC (Bld) 67.1 % Normal 40.0-80.0 [facility] Comment on above: Performed By: #### 5 7021-8 #### JIMBO ANTHONY ([id number]) [facility] ([facility]) [address] [place] [address] 44335 Nucleated RBC/100 WBC (Bld) [Ratio] 0.3 /100 WBCs High 0.0-0.0 [facility] Comment on above: Performed By: #### 5 7021-8 #### JIMBO ANTHONY ([id number]) [facility] ([facility]) [address] [place] [address] 16570 Platelet mean volume (Bld) [Entitic vol] 11.6 fL High 7.5-11.5 [facility] Comment on above: Performed By: #### 5 7021-8 #### JIMBO ANTHONY ([id number]) [facility] ([facility]) [address] [place] [address] 22595 Platelets (Bld) [#/Vol] 120 x10*3/uL Low 150-450 [facility] Comment on above: Result Comment: Plat elet count verified by smear review. no plt clots or clumps seen Performed By: #### 5 7021-8 #### JIMBO ANTHONY ([id number]) [facility] ([facility]) [address] [place] [address] 48242 RBC (Bld) [#/Vol] 4.89 x10*6/uL Normal 4.00-5.20 [facility] Comment on above: Performed By: #### 5 7021-8 #### JIMBO ANTHONY ([id number]) [facility] ([facility]) [address] [place] [address] 38633 WBC (Bld) [#/Vol] 7.5 x10*3/uL Normal 4.4-11.3 [facility] Comment on above: Performed By: #### 5 7021-8 #### JIMBO ANTHONY ([id number]) [facility] ([facility]) [address] [place] [address] 55384 Calcidiolon 02-07-2023 25-hydroxyvitamin D3 [Mass/Vol] 16 ng/mL Low 30-100 [facility] Comment on above: Order Comment: Defic iency: < 20 ng/ml Insufficiency: 20-29 ng/ml Sufficiency: 30-100 ng/ml This assay accurately quantifies the sum of Vitamin D3, 25-Hydroxy and Vitamin D2,25-Hydroxy. Performed By: #### 1 989-3 #### JIMBO ANTHONY ([id number]) [facility] ([facility]) [address] [place] [address] 66663 Cobalaminson 02-07-2023 Cobalamin (Vitamin B12) [Mass/Vol] 924 pg/mL High 211-911 [facility] Comment on above: Performed By: #### 2 132-9 #### JIMBO ANTHONY ([id number]) [facility] ([facility]) [address] [place] [address] Comprehensive metabolic 2000 panelon 02-07-2023 Albumin BCP dye [Mass/Vol] 3.3 g/dL Low 3.4-5.0 [facility] Comment on above: Performed By: #### 2 4323-8 #### JIMBO ANTHONY ([id number]) [facility] ([facility]) [address] [place] [address] ALP [Catalytic activity/Vol] 109 U/L Normal 33-136 [facility] Comment on above: Performed By: #### 2 4323-8 #### JIMBO ANTHONY ([id number]) [facility] ([facility]) [address] [place] [address] ALT With P-5'-P [Catalytic activity/Vol] 12 U/L Normal 7-45 [facility] Comment on above: Result Comment: Stephany ents treated with Sulfasalazine may generate falsely decreased results for ALT. Performed By: #### 2 4323-8 #### JIMBO ANTHONY ([id number]) [facility] ([facility]) [address] [place] [address] 42358 Anion gap [Moles/Vol] 11 mmol/L Normal 10-20 [facility] Comment on above: Performed By: #### 2 4323-8 #### JIMBO ANTHONY ([id number]) [facility] ([facility]) [address] [place] [address] 77685 AST With P-5'-P [Catalytic activity/Vol] 15 U/L Normal 9-39 [facility] Comment on above: Performed By: #### 2 4323-8 #### JIMBO ANTHONY ([id number]) [facility] ([facility]) [address] [place], [place] [address] Bilirubin [Mass/Vol] 0.4 mg/dL Normal 0.0-1.2 [facility] Comment on above: Performed By: #### 2 4323-8 #### JIMBO ANTHONY ([id number]) [facility] ([facility]) [address] [place] [address] 34936 Calcium [Mass/Vol] 8.7 mg/dL Normal 8.6-10.3 [facility] Comment on above: Performed By: #### 2 4323-8 #### JIMBO ANTHONY ([id number]) [facility] ([facility]) [address] [place] [address] 57832 Chloride [Moles/Vol] 102 mmol/L Normal 98-107 [facility] Comment on above: Performed By: #### 2 4323-8 #### JIMBO ANTHONY ([id number]) [facility] ([facility]) [address] [place] [address] 44598 CO2 [Moles/Vol] 30 mmol/L Normal 21-32 [facility] Comment on above: Performed By: #### 2 4323-8 #### JIMBO ANTHONY ([id number]) [facility] ([facility]) [address] [place] [address] 74465 Creatinine [Mass/Vol] 1.09 mg/dL High 0.50-1.05 [facility] Comment on above: Performed By: #### 2 4323-8 #### JIMBO ANTHONY ([id number]) [facility] ([facility]) [address] [place] [address] 56670 GFR/1.73 sq M.predicted MDRD (S/P/Bld) [Vol rate/Area] 56 mL/min/1.73m*2 Low >60 [facility] Comment on above: Result Comment: Calc ulations of estimated GFR are performed using the 2020 CKD-EPI Study Refit equation without the race variable for the IDMS-Traceable creatinine methods. https://jasn.asnjournals.org/content/early/ASN.32347 73433 Performed By: #### 2 4323-8 #### JIMBO ANTHONY ([id number]) [facility] ([facility]) [address] [place] [address] 98956 Glucose [Mass/Vol] 106 mg/dL High 74-99 [facility] Comment on above: Performed By: #### 2 4323-8 #### JIMBO ANTHONY ([id number]) [facility] ([facility]) [facility] [place] [address] Potassium [Moles/Vol] 4.0 mmol/L Normal 3.5-5.3 [facility] Comment on above: Performed By: #### 2 4323-8 #### JIMBO ANTHONY ([id number]) [facility] ([facility]) [address] [place] [address] 60057 Protein [Mass/Vol] 6.5 g/dL Normal 6.4-8.2 [facility] Comment on above: Performed By: #### 2 4323-8 #### JIMBO ANTHONY ([id number]) [facility] ([facility]) [address] [place] [address] 19041 Sodium [Moles/Vol] 139 mmol/L Normal 136-145 [facility] Comment on above: Performed By: #### 2 4323-8 #### JIMBO ANTHONY ([id number]) [facility] ([facility]) [address] [place] [address] 10769 Urea nitrogen [Mass/Vol] 13 mg/dL Normal 6-23 [facility] Comment on above: Performed By: #### 2 4323-8 #### JIMBO ANTHONY ([id number]) [facility] ([facility]) [address] [place] [address] 91231 HbA1c (Bld) [Mass fraction]o n 02-07-2023 Average glucose Estimated from glycated hemoglobin (Bld) [Mass/Vol] 197 mg/dL Normal Not Established [facility] Comment on above: Order Comment: Diagn osis of Diabetes-Adults Non-Diabetic: < or = 5.6% Increased risk for developing diabetes: 5.7-6.4% Diagnostic of diabetes: > or = 6.5% Monitoring of Diabetes Age (y)....................... Therapeutic Goal (%) Adults: >18.........................<7.0 Pediatrics: 13-18...................<7.5 Pediatrics: 7-12....................<8.0 Pediatrics: 0-6..................... 7.5-8.5 [employer] [employer]. Diabetes Care 33(S1)Apr 2009 Performed By: #### 4 548-4 #### JIMBO ANTHONY ([id number]) [facility] ([facility]) [address] [place] [id number] Hemoglobin A1c/Hemoglobin.to camilo 02-07-2023 HbA1c (Bld) [Mass fraction] 8.5 % High see below [facility] Comment on above: Order Comment: Diagn osis of Diabetes-Adults Non-Diabetic: < or = 5.6% Increased risk for developing diabetes: 5.7-6.4% Diagnostic of diabetes: > or = 6.5% Monitoring of Diabetes Age (y)....................... Therapeutic Goal (%) Adults: >18.........................<7.0 Pediatrics: 13-18...................<7.5 Pediatrics: 7-12....................<8.0 Pediatrics: 0-6..................... 7.5-8.5 [employer]. Diabetes Care 33(S1), Apr 2009 Performed By: #### 4 548-4 #### JIMBO ANTHONY ([id number]) [facility] ([facility]) [facility] [place] [address] Lipid 1996 panelon 3 Cholesterol [Mass/Vol] 192 mg/dL Normal 0-199 Un [facility] Comment on above: Result Comment: Age Desirable Borderline High High 0-19 Y 0 - 169 170 - 199 >/= 200 20-24 Y 0 - 189 190 - 224 >/= 225 >24 Y 0 - 199 200 - 239 >/= 240 All ranges are based on fasting samples. Specific therapeutic targets will vary based on patient-specific cardiac risk. Pediatric guidelines reference:Pediatrics 2011, 128(S5).Adult guidelines reference: NCEP ATPIII Guidelines,HILDA 2001, 258:2486-97 Venipuncture immediately after or during the administration of Metamizole may lead to falsely low results. Testing should be performed immediately prior to Metamizole dosing. Performed By: #### 2 4331-1 #### JIMBO ANTHONY ([id number]) [facility] ([facility]) [address] [place] [address] Cholesterol in HDL [Mass/Vol] 48.0 mg/dL Normal [facility] Comment on above: Result Comment: Age Very Low Low Normal High 0-19 Y < 35 < 40 40-45 ---- 20-24 Y ---- < 40 >45 ---- >24 Y ---- < 40 40-60 >60 Performed By: #### 2 4331-1 #### JIMBO ANTHONY ([id number]) [facility] ([facility]) [address] [place] [address] Cholesterol in LDL [Mass/Vol] 90 mg/dL Normal <=99 [facility] Comment on above: Result Comment: Near Borderline AGE Desirable Optimal High High Very High 0-19 Y 0 - 109 --- 110-129 >/= 130 ---- 20-24 Y 0 - 119 --- 120-159 >/= 160 ---- >24 Y 0 - 99 100-129 130-159 160-189 >/=190 Performed By: #### 2 4331-1 #### JIMBO ANTHONY ([id number]) [facility] ([facility]) [address] [place] [address] Cholesterol in VLDL [Mass/Vol] 54 mg/dL High 0-40 [facility] Comment on above: Performed By: #### 2 4331-1 #### JIMBO ANTHONY ([id number]) [facility] ([facility]) [address] [place] [address] CHOLESTEROL/HDL RATIO 4.0 Normal [facility] Comment on above: Result Comment: Ref Values Desirable < 3.4 High Risk > 5.0 Performed By: #### 2 4331-1 #### JIMBO ANTHONY ([id number]) [facility] ([facility]) [address] [place] [address] NON HDL CHOLESTEROL 144 mg/dL Normal 0-149 [facility] Comment on above: Result Comment: Age Desirable Borderline High High Very High 0-19 Y 0 - 119 120 - 144 >/= 145 >/= 160 20-24 Y 0 - 149 150 - 189 >/= 190 ---- >24 Y 30 mg/dL above LDL Cholesterol goal Performed By: #### 2 4331-1 #### JIMBO ANTHONY ([id number]) [facility] ([facility]) [address] [place] [address] Triglyceride [Mass/Vol] 268 mg/dL High 0-149 [facility] Comment on above: Result Comment: Age Desirable Borderline High High Very High 0 D-90 D 19 - 174 ---- ---- ---- 91 D- 9 Y 0 - 74 75 - 99 >/= 100 ---- 10-19 Y 0 - 89 90 - 129 >/= 130 ---- 20-24 Y 0 - 114 115 - 149 >/= 150 ---- >24 Y 0 - 149 150 - 199 200- 499 >/= 500 Venipuncture immediately after or during the administration of Metamizole may lead to falsely low results. Testing should be performed immediately prior to Metamizole dosing. Performed By: #### 2 4331-1 #### JIMBO ANTHONY ([id number]) [facility] ([facility]) [address] [place] [address] Magnesiumon 02-07-2023 Magnesium [Mass/Vol] 1.30 mg/dL Low 1.60-2.40 [facility] Comment on above: Performed By: #### 1 9123-9 #### JIMBO ANTHONY ([id number]) [facility] ([facility]) [facility] [place] [address] Thyrotropinon 02-07-2023 TSH Qn 5.05 m[IU]/L High 0.44-3.98 [facility] Comment on above: Order Comment: TSH t esting is performed using different testing methodology at [facility] than at [facility]. Direct result comparisons should only be made within the same method. Performed By: #### 3 016-3 #### JIMBO ANTHONY ([id number]) [facility] ([facility]) [address] [place] [address] Thyroxine.freeon 02-07-2023 Free T4 [Mass/Vol] 0.89 ng/dL Normal 0.61-1.12 [facility] Comment on above: Order Comment: Thyro xine Free testing is performed using different testing methodology at [facility] than at [facility]. Direct result comparisons should only be made within the same method. Biotin can cause falsely elevated free T4 results. Patients taking a Biotin dose of up to 10 mg/day should refrain from taking Biotin for 24 hours before sample collection. Patient taking a Biotin dose of >10 mg/day should consult with their physician or the laboratory before the blood draw. Performed By: #### 3 024-7 #### JIMBO ANTHONY ([id number]) [facility] ([facility]) [address] [place] [address] Established Visit (Orthopaed ic Surgery)on 12-28-2022 Established Visit (Orthopaedic Surgery) Diagnoses/Problems Assessed Primary osteoarthritis of left knee (715.16) (M17.12) Orders Primary osteoarthritis of left knee Start: Diclofenac Sodium 1 % External Gel; APPLY TO LOWER EXTREMITIES, 4 GM OF GEL TO AFFECTED AREA 4 TIMES DAILY. DO NOT APPLY MORE THAN 16 GM DAILY TO ANY ONE AFFECTED JOINT Patient Discussion/Summary Reviewed use of OTC Tylenol and NSAIDs for symptom control as recommended by PCP. Patient to continue to use topical products as she is currently getting good relief with at twice daily dosing, a prescription was sent for Voltaren gel to use 4 times daily for anti-inflammatory effect. Patient may continue home exercise program, avoid aggravating motions. We discussed risk benefits of hyaluronic acid injections, patient is interested in pursuing these at this time. Plan will be to have patient follow-up here after gel injections approved. I am strongly recommending formal PT with the reported leg weakening. We did discuss longer-term plan that if the gel injections do not significantly improve her symptoms or continues to worsen, we will pursue advanced imaging and surgical consult. Patient in agreement with plan of care. . This note was generated using GivU software. It may contain errors in wording, punctuation or spelling. Provider Impressions Left knee pain, OA Chief Complaint PATIENT PRESENTS TO OFFICE FOR : F/U OF LEFT KNEE PAIN PAIN: RATES 810 PAIN MEDS TAKEN: ADVIL, TYLENOL ROM: PAINFUL TO BEND ICE / HEAT APPLIED: BOTH BRACE WORN: DAILY ( WHEN SHE CAN GET IT PUT ON HERSELF, SHE STATES THERE ARE DAYS WHEN SHE IS UNABLE TO PUT THE BRACE ON EFFECTIVELY) LAST INJECTION: 11/26/22 LAST XRAY: 04/01/22 History of Present Illness Janelle is a pleasant 67-year-old female presenting today for follow-up visit of left knee pain and history of OA. No relief with last month's cortisone injection, feels leg is getting weaker Avoids stairs, walking on it Symptoms are aggravated with bending, prolonged standing activity, certain movements and inclines. Ibuprofen, Tylenol, OTC roll on pain relief lasts about 5 minutes. HEP daily, performs home PT with sister who is a PT aide Does not want to go to formal PT Denies any new injuries or falls L knee pain about 4-5 yrs, progressive worsening over last 1 1/2 years, cortisone no longer effective. Review of Systems Constitutional: no fever, no chills and not feeling tired. ENT: no recent cough or URI sx, no nosebleeds. Cardiovascular: no chest pain. Respiratory: no shortness of breath and no cough. Gastrointestinal: no abdominal pain, no nausea, no vomiting and no diarrhea. Integumentary: no rashes or skin wounds. Neurological: no headache. Psychiatric: no depression and no sleep disturbances. Endocrine: no muscle weakness and no muscle cramps. Hematologic/Lymphatic : no swollen glands and no tendency for easy bruising. All other systems have been reviewed and are negative other than noted in HPI. 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) (M47.816) Chronic low back pain with left-sided sciatica, unspecified back pain laterality (724.2,724.3,338.29) (M54.42,G89.29) Cirrhosis of liver (571.5) (K74.60) she thinks sh has fatty liver Class 3 severe obesity due to excess calories with serious comorbidity and body mass index (BMI) of 40.0 to 44.9 in adult (278.01,V85.41) (E66.01,Z68.41) COPD (chronic obstructive pulmonary disease) (496) (J44.9) Degenerative lumbar spinal stenosis (724.02) (M48.061) Depression, major, single episode, mild (296.21) (F32.0) Diabetes (250.00) (E11.9) Diabetes mellitus with stage 3 chronic kidney disease (250.40,585.3) (E11.22,N18.30) Intermittent gross hematuria (599.71) (R31.0) Lumbar radiculopathy, chronic (724.4) (M54.16) Medication management (V58.69) (Z79.899) Myalgia (729.1) (M79.10) Neurogenic claudication due to lumbar spinal stenosis (724.03) (M48.062) Nocturia (788.43) (R35.1) Pain in thoracic spine (724.1) (M54.6) Pain of left lower extremity (729.5) (M79.605) Primary osteoarthritis of left knee (715.16) (M17.12) Renal cyst (753.10) (N28.1) Type 2 diabetes mellitus with hyperglycemia, with long-term current use of insulin (250.00,790.29,V58.67 ) (E11.65,Z79.4) Past Medical History Problems H/O mammogram (V15.89) (Z92.89) 5324-[facility] History of Papanicolaou smear (V45.89) (Z98.890) 02/2022- NORMAL. DONE AT [address] [place] [address] History of Influenza vaccination declined (V64.06) (Z28.21) Surgical History Problems History of Cholecystectomy laparoscopic History of Colonoscopy 2020- [facility]- NORMAL. REPEAT IN 10 YEARS History of Dilation and curettage History of Epidural steroid injection Managed By: Miguel Dinh (Pain Medicine) L5-S1 JOSE History of (more content not included)... Normal [employer] Established Visit (Orthopaed ic Surgery)on 11-26-2022 Established Visit (Orthopaedic Surgery) Diagnoses/Problems Assessed Acute pain of left knee (719.46) (M25.562) Primary osteoarthritis of left knee (715.16) (M17.12) Orders Acute pain of left knee Administered: Triamcinolone Acetonide 40 MG/ML Injection Suspension (Kenalog) Patient Discussion/Summary Reviewed use of OTC Tylenol and or Tylenol for symptom control as recommended by PCP. Patient to continue to use topical products as she is currently getting good relief with at twice daily dosing. Courage patient to allow for rest over the next week with range of motion as tolerated. Patient may resume home exercise program beginning in 1 week and advance as tolerated. Plan will be to follow-up here in 3 months, sooner for changes or concerns. Patient in agreement with plan of care. Educated to monitor qd blood sugars x 2 weeks. Drink plenty of water and unsweetened fluids, avoid added sugars and refined carbohydrates. Call your PCP for any concerning symptoms or elevated readings. This note was generated using GivU software. It may contain errors in wording, punctuation or spelling. Provider Impressions Flare of left knee pain/OA Chief Complaint PATIENT PRESENTS TO OFFICE FOR : F/U OF LEFT KNEE PAIN PAIN: RATES 8/10 BEING WORST PAIN W/ MOVEMENT. PAIN MEDS TAKEN: ADVIL ROM: PAINFUL TO BEND ICE / HEAT APPLIED: BOTH BRACE WORN: DAILY LAST INJECTION: 04/28/22 LAST XRAY: 04/01/22 History of Present Illness Janelle is a pleasant 67-year-old female presenting today for follow-up visit of left knee pain and history of OA. Patient was last seen here by me in April 2022 and was given a cortisone injection at that time. + good relief until a couple weeks ago, effects wore off. No new injuries. Denies any recent falls. Symptoms are aggravated with bending, prolonged standing activity, certain movements and inclines. Taking Advil and some Tylenol with little relief. Blood sugars 145-160. Review of Systems Constitutional: no fever, no chills and not feeling tired. ENT: no recent cough or URI sx, no nosebleeds. Cardiovascular: no chest pain. Respiratory: no shortness of breath and no cough. Gastrointestinal: no abdominal pain, no nausea, no vomiting and no diarrhea. Integumentary: no rashes or skin wounds. Neurological: no headache. Psychiatric: no depression and no sleep disturbances. Endocrine: no muscle weakness and no muscle cramps. Hematologic/Lymphatic : no swollen glands and no tendency for easy bruising. All other systems have been reviewed and are negative other than noted in HPI. 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) (M47.816) Chronic low back pain with left-sided sciatica, unspecified back pain laterality (724.2,724.3,338.29) (M54.42,G89.29) Cirrhosis of liver (571.5) (K74.60) she thinks sh has fatty liver Class 3 severe obesity due to excess calories with serious comorbidity and body mass index (BMI) of 40.0 to 44.9 in adult (278.01,V85.41) (E66.01,Z68.41) COPD (chronic obstructive pulmonary disease) (496) (J44.9) Degenerative lumbar spinal stenosis (724.02) (M48.061) Depression, major, single episode, mild (296.21) (F32.0) Diabetes (250.00) (E11.9) Diabetes mellitus with stage 3 chronic kidney disease (250.40,585.3) (E11.22,N18.30) Intermittent gross hematuria (599.71) (R31.0) Lumbar radiculopathy, chronic (724.4) (M54.16) Medication management (V58.69) (Z79.899) Myalgia (729.1) (M79.10) Neurogenic claudication due to lumbar spinal stenosis (724.03) (M48.062) Nocturia (788.43) (R35.1) Pain in thoracic spine (724.1) (M54.6) Pain of left lower extremity (729.5) (M79.605) Primary osteoarthritis of left knee (715.16) (M17.12) Renal cyst (753.10) (N28.1) Type 2 diabetes mellitus with hyperglycemia, with long-term current use of insulin (250.00,790.29,V58.67 ) (E11.65,Z79.4) Past Medical History Problems H/O mammogram (V15.89) (Z92.89) 3323-[facility] History of Papanicolaou smear (V45.89) (Z98.890) 02/2022- NORMAL. DONE AT [address] [place] [address] History of Influenza vaccination declined (V64.06) (Z28.21) Surgical History Problems History of Cholecystectomy laparoscopic History of Colonoscopy 2020- [facility]- NORMAL. REPEAT IN 10 YEARS History of Dilation and curettage History of Epidural steroid injection Managed By: Miguel Angelo (Pain Medicine) L5-S1 JOSE History of Medial branch block Managed By: Miguel Angelo (Pain Medicine) Bilat L4-S1 MBB History of Oophorectomy 0526-6049- RIGHT History of Umbilical hernia repair Family History Mother Family history of Aneurysm 7179-6745- Father Family history of Edema 1970 Brother Family history of malignant neoplasm (V16.9) (Z80.9) 2-3 AUNTS ON PATIENT'S DAD'S SIDE HAD CANCER. PT BOTHER ALSO HAS CANCER (PT NOT (more content not included)... Normal [employer] No Panel Informationon 11-26 Please click on the link to view the study images Normal [facility] 300 Work Phone: Tobacco Screening.on 023 Tobacco use status CPHS a) Yes [facility] 300 Work Phone: Tobacco Screening. Yes [facility] 300 Work Phone: BASIC METABOLIC PANELon 07-1 Anion gap [Moles/Vol] 8 mmol/L Low 10 - 20 [facility] Comment on above: Performed By: #### B MP ####[address] [address] Calcium [Mass/Vol] 8.4 mg/dL Low 8.6 - 10.3 [facility] Comment on above: Performed By: #### B MP ####[address] [address] Chloride [Moles/Vol] 103 mmol/L Normal 98 - 107 [facility] Comment on above: Performed By: #### B MP ####[address] [address] Creatinine [Mass/Vol] 0.94 mg/dL Normal 0.50 - 1.05 [facility] Comment on above: Performed By: #### B MP ####[address] [address] GFR/1.73 sq M.predicted among non-blacks MDRD (S/P/Bld) [Vol rate/Area] 67 mL/min/{1.73_m2} Normal >90 [facility] Comment on above: Result Comment: CALC ULATIONS OF ESTIMATED GFR ARE PERFORMED USING THE 2020 CKD-EPI STUDY REFIT EQUATION WITHOUT THE RACE VARIABLE FOR THE IDMS-TRACEABLE CREATININE METHODS. https://jasn.asnjournals.org/content//ASN.52409 83469 Performed By: #### B MP ####[address] [address] Glucose [Mass/Vol] 192 mg/dL High 74 - 99 [facility] Comment on above: Performed By: #### B MP ####[address] [address] HCO3 (Bld) [Moles/Vol] 29 mmol/L Normal 21 - 32 [facility] Comment on above: Performed By: #### B MP ####[address] [address] Potassium [Moles/Vol] 4.1 mmol/L Normal 3.5 - 5.3 [facility] Comment on above: Performed By: #### B MP ####[address] [address] Sodium [Moles/Vol] 136 mmol/L Normal 136 - 145 [facility] Comment on above: Performed By: #### B MP ####[address] [address] Urea nitrogen [Mass/Vol] 13 mg/dL Normal 6 - 23 [facility] Comment on above: Performed By: #### B MP ####[address] [address] BETA-HYDROXYBUTYRATEon 10-18 BETA-HYDROXYBUTYRATE <0.01 Low 0.02 - 0.27 [facility] Comment on above: Result Comment: The beta-hydroxybutyrate test performance characteristics have been validated by [facility] laboratory. This test has not been approved by the FDA; however, such approval is not necessary. Performed By: #### B HB2 #### [address] [address] Beta Hydroxybutyrate, Serumo n 10-18-2022 Beta hydroxybutyrate [Mass or moles/Vol] <0.01 below low threshold See Below MP-Pain Management-[facility] Work Phone: Comment on above: Reference Range: 0.0 2 - 0.27 The beta-hydroxybutyrate test performance characteristics have been validated by [facility] laboratory. This test has not been approved by the FDA; however, such approval is not necessary. CBC AND DIFFERENTIALon 10-18 % AUTOMATED IMMATURE GRAN 0.7 % Normal 0.0 - 0.9 [facility] Comment on above: Result Comment: Mira ture Granulocyte Count (IG) includes promyelocytes, myelocytes and metamyelocytes but does not include bands. Percent differential counts (%) should be interpreted in the context of the absolute cell counts (cells/L). Performed By: #### C BCDF ####[address] [address] Basophils (Bld) [#/Vol] 0.03 10*3/uL Normal 0.00 - 0.10 [facility] Comment on above: Performed By: #### C BCDF ####[address] [address] Basophils/100 WBC (Bld) 0.4 % Normal 0.0 - 2.0 [facility] Comment on above: Performed By: #### C BCDF ####[address] [address] Eosinophils (Bld) [#/Vol] 0.06 10*3/uL Normal 0.00 - 0.70 [facility] Comment on above: Performed By: #### C BCDF ####[address] [address] Eosinophils/100 WBC (Bld) 0.9 % Normal 0.0 - 6.0 [facility] Comment on above: Performed By: #### C BCDF ####[address] [address] Erythrocyte distribution width (RBC) [Ratio] 13.2 % Normal 11.5 - 14.5 [facility] Comment on above: Performed By: #### C BCDF ####[address] [address] Hematocrit (Bld) [Volume fraction] 41.0 % Normal 36.0 - 46.0 [facility] Comment on above: Performed By: #### C BCDF ####[address] [address] Hemoglobin (Bld) [Mass/Vol] 13.5 g/dL Normal 12.0 - 16.0 [facility] Comment on above: Performed By: #### C BCDF ####[address] [address] Lymphocytes (Bld) [#/Vol] 1.63 10*3/uL Normal 1.20 - 4.80 [facility] Comment on above: Performed By: #### C BCDF ####[address] [address] Lymphocytes/100 WBC (Bld) 24.0 % Normal 13.0 - 44.0 [facility] Comment on above: Performed By: #### C BCDF ####[address] [address] MCHC (RBC) [Mass/Vol] 32.9 g/dL Normal 32.0 - 36.0 [facility] Comment on above: Performed By: #### C BCDF ####[address] [address] MCV (RBC) [Entitic vol] 90 fL Normal 80 - 100 [facility] Comment on above: Performed By: #### C BCDF ####[address] [address] Monocytes (Bld) [#/Vol] 0.34 10*3/uL Normal 0.10 - 1.00 [facility] Comment on above: Performed By: #### C BCDF ####[address] [address] Monocytes/100 WBC (Bld) 5.0 % Normal 2.0 - 10.0 [facility] Comment on above: Performed By: #### C BCDF ####[address] [address] Neutrophils (Bld) [#/Vol] 4.67 10*3/uL Normal 1.20 - 7.70 [facility] Comment on above: Result Comment: Perc ent differential counts (%) should be interpreted in the context of the absolute cell counts (cells/L). Performed By: #### C BCDF ####[address] [address] Neutrophils/100 WBC (Bld) 69.0 % Normal 40.0 - 80.0 [facility] Comment on above: Performed By: #### C BCDF ####[address] [address] Platelets (Bld) [#/Vol] 117 10*3/uL Low 150 - 450 [facility] Comment on above: Result Comment: Plat elet count verified by smear review. no plt clumps seen Performed By: #### C BCDF ####[address] [address] RBC 4.55 x10E12/L Normal 4.00 - 5.20 [facility] Comment on above: Performed By: #### C BCDF ####[address] [address] WBC (Bld) [#/Vol] 6.8 10*3/uL Normal 4.4 - 11.3 [facility] Comment on above: Performed By: #### C BCDF ####[address] [address] [address] ABDOMEN AND PELVIS W IV C [facility] 10-18-2022 CT ABDOMEN AND PELVIS W IV CONTRAST Patient Name: JANELLE PICKETT STUDY: Unremarkable. CT ABDOMEN AND PELVIS W IV CONTRAST; 10/18/2022 2:08 pm INDICATION: ABD PAIN, NAUSEA, ABD DISTENSION HX OF CHOLELITHIASIS . COMPARISON: 06/12/2022 ACCESSION NUMBER(S): [id number] ORDERING CLINICIAN: DAVIDE MITCHELL TECHNIQUE: CT of the abdomen and pelvis was performed. Standard contiguous axial images were obtained at 3 mm slice thickness through the abdomen and pelvis. Coronal and sagittal reconstructions at 3 mm slice thickness were performed. 90 ml of contrast Omnipaque 350 were administered intravenously without immediate complication. FINDINGS: LOWER CHEST: Mild patchy atelectatic changes in the right lower lobe. Small right pleural fluid ABDOMEN: LIVER: Liver has a lobulated, nodular contour, measuring up to 22.1 cm, could be related to chronic parenchymal liver disease/cirrhosis. BILE DUCTS: Common bile duct measures up to 9 mm, likely related to post cholecystectomy state. GALLBLADDER: Gallbladder is surgically absent. PANCREAS: Unremarkable SPLEEN: Splenomegaly noted measuring up to 17.4 cm. ADRENAL GLANDS: Hypodense nodule in the right adrenal gland measuring up to 17 mm is stable from prior. Left adrenal gland is unremarkable. KIDNEYS AND URETERS: 9 mm hypodense lesion in the left kidney interpolar region, could represent a cyst. Both the kidneys show no abnormal enhancing lesions or hydronephrosis. PELVIS: BLADDER: Unremarkable. REPRODUCTIVE ORGANS: Another slight lobulated appearance, fibroids cannot be excluded, grossly stable from prior. No adnexal masses. BOWEL: No dilated bowel loops or bowel wall thickening. VESSELS: Atherosclerotic changes in the aorta and its branches. PERITONEUM/RETROPERIT ONEUM/LYMPH NODES: Few subcentimeter short axis retroperitoneal and mesenteric lymph nodes show minimal interval change from prior. BONES AND ABDOMINAL WALL: No acute process in the osseous skeleton or the abdominal wall. Decreased bone density. IMPRESSION: 1. Cirrhotic appearance of the liver, recommend correlation with liver function tests. 2. Splenomegaly. 3. 17 mm hypodense lesion in the right LL gland is stable from prior. 4. No significant change from prior. Electronically signed by: KALIN CLEMENT MD Normal [facility] CT Abdomen and Pelvis with I V Contraston 10-18-2022 CT Abdomen and Pelvis W contrast IV [facility] Work Phone: Complete Blood Count + Diffe rentialon 10-18-2022 Basophils/100 WBC (Bld) 0.4 % 0.0 - 2.0 [facility] Work Phone: Erythrocyte distribution width (RBC) [Ratio] 13.2 % See Below -[facility] Work Phone: Comment on above: Reference Range: 11. 5 - 14.5 Hematocrit (Bld) [Volume fraction] 41.0 % See Below -[facility] Work Phone: Comment on above: Reference Range: 36. 0 - 46.0 Hemoglobin (Bld) [Mass/Vol] 13.5 g/dL See Below -[facility] Work Phone: Comment on above: Reference Range: 12. 0 - 16.0 Lymphocytes/100 WBC (Bld) 24.0 % See Below [facility] Work Phone: Comment on above: Reference Range: 13. 0 - 44.0 MCHC (RBC) [Mass/Vol] 32.9 g/dL See Below - Pain [facility] Work Phone: Comment on above: Reference Range: 32. 0 - 36.0 MCV (RBC) [Entitic vol] 90 fL 80 - 100 -[facility] Work Phone: Monocytes/100 WBC (Bld) 5.0 % 2.0 - 10.0 MP-Pain Management-[facility] Work Phone: Neutrophils/100 WBC (Bld) 69.0 % See Below MP-Pain Management-[facility] Work Phone: Comment on above: Reference Range: 40. 0 - 80.0 Platelets (Bld) [#/Vol] 117 10*3/uL below low threshold 150 - 450 -Pain Management-[facility] Work Phone: Comment on above: Platelet count verif ied by smear review. no plt clumps seen RBC (Bld) [#/Vol] 4.55 {x10E12/L} See Below MP -Pain Management-[facility] Work Phone: Comment on above: Reference Range: 4.0 0 - 5.20 WBC (Bld) [#/Vol] 6.8 10*3/uL 4.4 - 11.3 MP-Chirag n Management-[facility] Work Phone: Complete Blood Count + Differential 0.03 {x10E9/L} See Below MP-Pain Management-[facility] Work Phone: Comment on above: Reference Range: 0.0 0 - 0.10 Complete Blood Count + Differential 0.06 {x10E9/L} See Below MP-Pain Management-[facility] Work Phone: Comment on above: Reference Range: 0.0 0 - 0.70 Complete Blood Count + Differential 0.34 {x10E9/L} See Below MP-Pain Management-[facility] Work Phone: Comment on above: Reference Range: 0.1 0 - 1.00 Complete Blood Count + Differential 1.63 {x10E9/L} See Below MP-Pain Management-[facility] Work Phone: Comment on above: Reference Range: 1.2 0 - 4.80 Complete Blood Count + Differential 4.67 {x10E9/L} See Below MP-Pain Management-[facility] Work Phone: Comment on above: Reference Range: 1.2 0 - 7.70 Percent differential counts (%) should be interpreted in the context of the absolute cell counts (cells/L). Complete Blood Count + Differential 0.9 % 0.0 - 6.0 MP-Pain Management-[facility] Work Phone: Complete Blood Count + Differential 0.7 % 0.0 - 0.9 MP-Pain Management-[facility] Work Phone: Comment on above: Immature Granulocyte Count (IG) includes promyelocytes, myelocytes and metamyelocytes but does not include bands. Percent differential counts (%) should be interpreted in the context of the absolute cell counts (cells/L). HEPATIC FUNCTION PANELon Albumin [Mass/Vol] 3.1 g/dL Low 3.4 - 5.0 [facility] Comment on above: Performed By: #### H EPFP ####[address] [address] ALP [Catalytic activity/Vol] 121 U/L Normal 33 - 136 [facility] Comment on above: Performed By: #### H EPFP ####[address] [address] ALT [Catalytic activity/Vol] 12 U/L Normal 7 - 45 [facility] Comment on above: Result Comment: Stephany ents treated with Sulfasalazine may generate falsely decreased results for ALT. Performed By: #### H EPFP ####[address] [address] AST [Catalytic activity/Vol] 12 U/L Normal 9 - 39 [facility] Comment on above: Performed By: #### H EPFP ####[address] [address] Bilirubin [Mass/Vol] 0.3 mg/dL Normal 0.0 - 1.2 [facility] Comment on above: Performed By: #### H EPFP ####[address] [address] Bilirubin.indirect [Mass/Vol] 0.0 mg/dL Normal 0.0 - 0.3 [facility] Comment on above: Performed By: #### H EPFP ####[address] [address] Protein [Mass/Vol] 6.6 g/dL Normal 6.4 - 8.2 [facility] Comment on above: Performed By: #### H EPFP ####[address] [address] Hepatic Function Panelon Albumin BCP dye [Mass/Vol] 3.1 g/dL below low threshold 3.4 - 5.0 MP-Pain [facility] Work Phone: ALP [Catalytic activity/Vol] 121 U/L 33 - 136 -Pain [facility] Work Phone: ALT With P-5'-P [Catalytic activity/Vol] 12 U/L 7 - 45 -Pain [facility] Work Phone: Comment on above: Patients treated wit h Sulfasalazine may generate falsely decreased results for ALT. AST With P-5'-P [Catalytic activity/Vol] 12 U/L 9 - 39 MP-Pain [facility] Work Phone: Bilirubin [Mass/Vol] 0.3 mg/dL 0.0 - 1.2 MP-P ain [facility] Work Phone: Bilirubin.direct [Mass/Vol] 0.0 mg/dL 0.0 - 0.3 -[facility] Work Phone: Protein [Mass/Vol] 6.6 g/dL 6.4 - 8.2 MP-Chirag n [facility] Work Phone: LACTATEon 10-18-2022 Lactate [Moles/Vol] 1.3 mmol/L Normal 0.4 - 2.0 [facility] Comment on above: Result Comment: Funmi puncture immediately after or during the administration of Metamizole may lead to falsely low results. Testing should be performed immediately prior to Metamizole dosing. Performed By: #### L ACT ####[address] [address] LIPASEon 10-18-2022 Lipase [Catalytic activity/Vol] 35 U/L Normal 9 - 82 [facility] Comment on above: Result Comment: Funmi puncture immediately after or during the administration of Metamizole may lead to falsely low results. Testing should be performed immediately prior to Metamizole dosing. J-ldqnhy-j-benzoquinone imine (metabolite of Acetaminophen) will generate erroneously low results in samples for patients that have taken toxic doses of acetaminophen. Performed By: #### L IPAS ####[id number] [place] [address] Laboratory - Chemistry and C hemistry - challengeon 10-18-2022 Anion gap [Moles/Vol] 8 mmol/L below low threshold 10 - 20 MP-Pain Management-[facility] Work Phone: Calcium [Mass/Vol] 8.4 mg/dL below low threshold 8.6 - 10.3 MP-Pain Management-[facility] Work Phone: Chloride [Moles/Vol] 103 mmol/L 98 - 107 MP-P ain Management-[facility] Work Phone: CO2 [Moles/Vol] 29 mmol/L 21 - 32 MP-Pain Management-[facility] Work Phone: Creatinine [Mass/Vol] 0.94 mg/dL See Below MP- Pain Management-[facility] Work Phone: Comment on above: Reference Range: 0.5 0 - 1.05 Glucose [Mass/Vol] 192 mg/dL above high threshold 74 - 99 MP-Pain Management-[facility] Work Phone: Potassium [Moles/Vol] 4.1 mmol/L 3.5 - 5.3 MP- Pain Management-[facility] Work Phone: Sodium [Moles/Vol] 136 mmol/L 136 - 145 MP-Chirag n Management-[facility] Work Phone: Urea nitrogen [Mass/Vol] 13 mg/dL 6 - 23 MP-Pain Management-[facility] Work Phone: Laboratory - Coagulationon 0 10-18-2022 INR Coag (PPP) [Relative time] 1.1 {INR} 0.9 - 1.1 [facility] Work Phone: PT Coag (PPP) [Time] 12.2 s 9.8 - 12.8 MP-P ain [facility] Work Phone: Comment on above: Note new reference r kaden as of 09/28/2022 at 10:00am. Lactate, Levelon 10-18-2022 Lactate [Moles/Vol] 1.3 mmol/L 0.4 - 2.0 MP-Pa in [facility] Work Phone: Comment on above: Venipuncture immedia tely after or during the administration of Metamizole may lead to falsely low results. Testing should be performed immediately prior to Metamizole dosing. Lipase, Serumon 10-18-2022 Lipase [Catalytic activity/Vol] 35 U/L 9 - 82 MP-[facility] Work Phone: Comment on above: Venipuncture immedia tely after or during the administration of Metamizole may lead to falsely low results. Testing should be performed immediately prior to Metamizole dosing. F-tercjx-j-benzoquinone imine (metabolite of Acetaminophen) will generate erroneously low results in samples for patients that have taken toxic doses of acetaminophen. No Panel Informationon 10-18 67 {mL/min/1.73m2} >90 MP-Chirag n [facility] Work Phone: Comment on above: CALCULATIONS OF ROXANN MATED GFR ARE PERFORMED USING THE 2020 CKD-EPI STUDY REFIT EQUATION WITHOUT THE RACE VARIABLE FOR THE IDMS-TRACEABLE CREATININE METHODS.https://jasn.asnjournals.org/content/early//A SN.4785859650 PT/INRon 10-18-2022 PT Coag (PPP) [Time] 12.2 s Normal 9.8 - 12.8 [facility] Comment on above: Result Comment: Note new reference range as of 09/28/2022 at 10:00am. Performed By: #### P TINR ####[place] [address] PT, INR 1.1 Normal 0.9 - 1.1 [facility] Comment on above: Performed By: #### P TINR ####[id number] [place] [address] Provider Note - ED v3on 10-09 Provider Note - ED v3 Provider Note: Results/Vital Signs: Pediatric Clinical Scoring (LUCIA) is no recent LUCIA charted on this account Chart Review: ED NOTES ED NOTES: CC=ABD PAIN HPI= this is a patient who was sent in by her primary care physician complain of abdominal pain apparently she has a history of chronic abdominal pain was seen by Dr. Ofe LOU in August for abdominal pain she apparently had chronic cholecystitis with questionable whether she had a cholecystectomy already she complains of being bloated and distended at this time with some diffuse abdominal pain she denies any back pain she has had some nausea but without vomiting at this time PM HX= 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) (M47.816) Chronic low back pain with left-sided sciatica, unspecified back pain laterality (724.2,724.3,338.29) (M54.42,G89.29) Patient Name: JANELLE PICKETT : 1955 Gender: Female Printed by , 10/18/2022 14:09:25 Page 3 of 5 Cirrhosis of liver (571.5) (K74.60) she thinks sh has fatty liver Class 3 severe obesity due to excess calories with serious comorbidity and body mass index (BMI) of 40.0 to 44.9 in adult (278.01,V85.41) (E66.01,Z68.41) COPD (chronic obstructive pulmonary disease) (496) (J44.9) Degenerative lumbar spinal stenosis (724.02) (M48.061) Depression, major, single episode, mild (296.21) (F32.0) Diabetes (250.00) (E11.9) Diabetes mellitus with stage 3 chronic kidney disease (250.40,585.3) (E11.22,N18.30) Intermittent gross hematuria (599.71) (R31.0) Lumbar radiculopathy, chronic (724.4) (M54.16) Medication management (V58.69) (Z79.899) Myalgia (729.1) (M79.10) Neurogenic claudication due to lumbar spinal stenosis (724.03) (M48.062) Nocturia (788.43) (R35.1) Pain in thoracic spine (724.1) (M54.6) Pain of left lower extremity (729.5) (M79.605) Primary osteoarthritis of left knee (715.16) (M17.12) Renal cyst (753.10) (N28.1) Type 2 diabetes mellitus with hyperglycemia, with long-term current use of insulin (250.00,790.29,V58.67 ) (E11.65,Z79.4) Past Medical History Problems H/O mammogram (V15.89) (Z92.89) [facility] History of Papanicolaou smear (V45.89) (Z98.890) 02/2022- NORMAL. DONE AT [address] [place] [address] History of Influenza vaccination declined (V64.06) (Z28.21) Surgical History Problems History of Cholecystectomy laparoscopic History of Colonoscopy 2020- [facility]- NORMAL. REPEAT IN 10 YEARS History of Dilation and curettage History of Medial branch block Managed By: Miguel Angelo (Pain Medicine) Bilat L4-S1 MBB History of Oophorectomy 4511-2029- RIGHT History of Umbilical hernia repair Family History Mother Family history of Aneurysm [id number]- Father Family history of Edema 1969 Patient Name: JANELLE PICKETT : 1955 Gender: Female Printed by , 10/18/2022 14:09:25 Page 4 of 5 Brother Family history of malignant neoplasm (V16.9) (Z80.9) 2-3 AUNTS ON PATIENT'S DAD'S SIDE HAD CANCER. PT BOTHER ALSO HAS CANCER (PT NOT SURE WHAT KIND OF CANCER) Aunt Family history of malignant neoplasm (V16.9) (Z80.9) 2-3 AUNTS ON PATIENT'S DAD'S SIDE HAD CANCER. PT BOTHER ALSO HAS CANCER (PT NOT SURE WHAT KIND OF CANCER) Social History Problems Denies alcohol consumption (V49.89) (Z78.9) Does not use illicit drugs (V49.89) (Z78.9) Feels safe at home No advance directives (V49.89) (Z78.9) Smoker (305.1) (F17.200) HISTORY OF PRESENTING ILLNESS JANELLE is a 67 year old Female and was seen by me at 18-Oct-2022 11:43 for a chief complaint of abdominal pain (Patient to ED reference right sided abdominal pain with nausea and dizziness with a fog. She states she is bloated. Patient has had her pain for 2 years and it has gotten worse over the past 2 months. She was at her Doctors this morning and was sent to the ED.). Triage Information: Most recent Vital Sign Value Date Temp (F): 96.7 10-18-2022 11:41 Temp (C): 35.9 10-18-2022 11:41 Heart Rate (beats/min): 72 10-18-2022 11:41 Respirations (breaths/min): 20 10-18-2022 11:41 SpO2 (%): 97 10-18-2022 11:41 BP Systolic (mm Hg): 148 10-18-2022 11:41 BP Diastolic (mm Hg): 70 10-18-2022 11:41 PAST MEDICAL HISTORY ALLERGIES/INTOLERANCE S: Allergy Allergen: gemfibrozil Type: Drug Reaction: Other HEALTH HISTORY: Medical History Name:Diabetes Code:E11.9 Name:History of COPD Code:Z87.09 Name:History of cirrhosis Code:Z87.19 Name:History of depression Code:Z86.59 Name:Kidney insufficiency Code:N28.9 OUTPATIENT MEDICATIONS: Home Medications Review Status for Reconciliation: Complete Med Status: Patient Currently Takes Medications Drug Name: Nebulizer Instructions: Nebulizer machine Use (more content not included)... Normal [facility] Risk Screen - Adult Emergenc yon 10-18-2022 Risk Screen - Adult Emergency Preferred Language: Preferred Language: Preferred Language for Discussing Health Care (patient/designee)Ap yee Patient Preferred Pharmacy: Patient Preferred Pharmacy Statement: I have reviewed and updated the patient's preferred pharmacy selection for today's visit. Advanced Directives: Advance Directive/DNRno Advance Directive Information Givenpatient/family declined Family Violence Adult: Abuse Screen: Are you or have you been threatened or abused physically, emotionally, or sexually by anyoneno Learning Assessment (Patient): Learning Assessment (Patient): Patient is Able to be Assessed for Learningyes Factors Influencing Readiness to Learninterest in learning Factors that Impact Ability to Learnnone Devices/Methods Used to Communicatenone Learning Preferencesverbal instruction Cultural Considerationsnone Developmental Considerationsnone Pentecostal Considerationsnone Learning Assessment (Other Learner): Learning Assessment (Other Learner): Other learner availableno Pressure Injury/TB/Substance: Pressure Injury: Pressure Injury Present on Admissionno Do you have a coughno Smoking Statusmoderate user (uses 11-30 cig/day, OR 0.5-1.5 ppd, OR 2-3 cans/pouches loose leaf tobacco per week, OR 0.5-1.5 vape pods per day) Tobacco Cessation Education (provide if tobacco use within the last 12 mos) patient declined Alcohol Usedenies Drug Usedenies Admission Risk Screen: Significant IndicatorsComplete CAGE: CAGE: Is this an injured patient at a Trauma Center ([facility]/[place]/[facility]/[place]): no Electronic Signatures: Jessica Luis (RN) (Signed 18-Oct-2022 12:40) Authored: Preferred Language, Patient Preferred Pharmacy, Advanced Directives, Family Violence Adult, Learning Assessment (Patient), Learning Assessment (Other Learner), Pressure Injury/TB/Substance, Pressure Injury, CAGE Last Updated: 18-Oct-2022 12:40 by Jessica Luis (PANDA) Normal [facility] UA MICROSCOPICon 10-18-2022 RBC 5 /HPF Normal 0-5 [facility] Comment on above: Performed By: #### B HB2 #### [address] [address] SQUAMOUS EPITH. CELLS 5 /HPF Normal [facility] Comment on above: Performed By: #### B HB2 #### [address] [address] WBC (U) [#/Vol] /uL Normal 0-5 [facility] Comment on above: Performed By: #### B HB2 #### [place] [address] URINALYSIS WITH CULTURE IF I NDICATEDon 10-18-2022 Appearance (U) CLEAR Normal CLEAR [facility] Comment on above: Performed By: #### U ARFX ####[place] [address] Bilirubin Ql (U) Negative Normal NEGATIVE [facility] Comment on above: Performed By: #### U ARFX ####[place] [address] Color (U) Yellow Normal STRAW,YELLOW [facility] Comment on above: Performed By: #### U ARFX ####[place] [address] Glucose Ql (U) Negative Normal NEGATIVE [facility] Comment on above: Performed By: #### U ARFX ####[place] [address] Hemoglobin Ql (U) SMALL (1+) Abnormal NEGATIVE [facility] Comment on above: Performed By: #### U ARFX ####[place] [address] Ketones Ql (U) Negative Normal NEGATIVE [facility] Comment on above: Performed By: #### U ARFX ####[place] [address] Leukocyte esterase Test strip Ql (U) Negative Normal NEGATIVE [facility] Comment on above: Performed By: #### U ARFX ####[place] [address] Nitrite Ql (U) Negative Normal NEGATIVE [facility] Comment on above: Performed By: #### U ARFX ####[place] [address] pH (U) 6.0 [pH] Normal 5.0 - 8.0 [facility] Comment on above: Performed By: #### U ARFX ####[place] [address] Protein Ql (U) 100 (2+) Abnormal NEGATIVE [facility] Comment on above: Performed By: #### U ARFX ####[address] [address] Specific gravity (U) [Rel density] 1.015 Normal 1.005 - 1.035 [facility] Comment on above: Performed By: #### U ARFX ####[address] [address] Urobilinogen (U) [Mass/Vol] mg/dL Normal 0.0 - 1.9 [facility] Comment on above: Performed By: #### U ARFX ####[address] [address] Color (U) Yellow See Below -Pain Management-[facility] Work Phone: Comment on above: Reference Range: STR AW,YELLOW Glucose Ql (U) Negative NEGATIVE -Pain Management-[facility] Work Phone: Ketones Ql (U) Negative NEGATIVE [facility] Work Phone: Leukocyte esterase Test strip Ql (U) Negative NEGATIVE -Pain [facility] Work Phone: pH (U) 6.0 [pH] 5.0 - 8.0 -Pain Management-[facility] Work Phone: Protein (U) [Mass/Vol] 100 (2+) Abnormal NEGATIVE -Pain Management-[facility] Work Phone: RBC (U) [#/Vol] SMALL (1+) Abnormal NEGATIVE [facility] Work Phone: Specific gravity (U) [Rel density] 1.015 1 See Below -[facility] Work Phone: Comment on above: Reference Range: 1.0 05 - 1.035 URINALYSIS WITH CULTURE IF INDICATED Negative NEGATIVE [facility] Work Phone: URINALYSIS WITH CULTURE IF INDICATED <2.0 0.0 - 1.9 -Pain Management-[facility] Work Phone: URINALYSIS WITH CULTURE IF INDICATED CLEAR CLEAR MP-Pain Management-[facility] Work Phone: Urinalysis, Microscopicon Urinalysis, Microscopic 5 {/HPF} 0-5 MP-Pain Management-[facility] Work Phone: Urinalysis, Microscopic <1 0-5 MP-Pain Management-[facility] Work Phone: GLUCOSE-POCTon 09-17-2022 Glucose [Mass/Vol] 218 mg/dL High 74 - 99 [facility] Comment on above: Performed By: #### G DARRELL #### [address] [place] [address] Glucose Test strip manual (B ld) [Mass/Vol]on 09-17-2022 Glucose [Mass/Vol] 218 mg/dL High 74 - 99 mg/dL [facility] Interpretation and review of laboratory results Abnormal [facility] Laboratory - Chemistry and C hemistry - challengeon 09-17-2022 Glucose [Mass/Vol] 218 mg/dL above high threshold 74 - 99 MP-Pain Management-[facility] Work Phone: No Panel Informationon 09-17 Please click on the link to view the study images Normal MP-Pain Management-[facility] Work Phone: RFA Unspecified body region Limited Views for therapy or embolization or infusion W contrast via existing catheteron 09-17-2022 RIS LEGACY CONVERSIONS Conversion, Ge Radiology - 12/08/2022 [facility] Work Phone: Radiology Study observation (narrative) [facility] Work Phone: RFA Unspecified body region Limited Views for therapy or embolization or infusion W contrast via existing catheterOrdered By: Ge Conversion on 09-17-2022 [facility] Radiologyon 09-03-2022 US Liver Normal [facility] Work Phone: US LIVERon 09-03-2022 US LIVER Patient Name: JANELLE PICKETT STUDY: US LIVER; 09/03/2022 8:34 am INDICATION: Cirrhosis R10.84: Abdominal pain, chronic, generalized G89.29:. COMPARISON: None. ACCESSION NUMBER(S): [id number] ORDERING CLINICIAN: KANE KILGORE TECHNIQUE: Real-time sonographic evaluation of the right upper quadrant was performed. FINDINGS: LIVER: There is diffuse coarsened appearance of the hepatic parenchyma with some lobulation of the surface contour. No focal hepatic lesion is demonstrated. Liver is enlarged measuring 21 cm in sagittal dimension. GALLBLADDER: Gallbladder could not be visualized and could be fully contracted. BILIARY TREE: Common bile duct is not significantly dilated measuring 6 mm in diameter. PANCREAS: The pancreas is poorly visualized due to overlying bowel gas. RIGHT KIDNEY: Right kidney measures 11.1cm in length. No right hydronephrosis is seen. IMPRESSION: Hepatomegaly. Diffuse coarsened appearance of the hepatic parenchyma as well as lobulation of the surface contour likely representing changes of cirrhosis. No focal hepatic lesion demonstrated. Gallbladder could not be visualized. No biliary dilation. Sub visualization of the pancreas. Electronically signed by: SRAVATNHI RÍOS MD Normal [facility] CBC AND DIFFERENTIALon 08-20 % AUTOMATED IMMATURE GRAN 1.0 % High 0.0 - 0.9 [facility] Comment on above: Result Comment: Mira ture Granulocyte Count (IG) includes promyelocytes, myelocytes and metamyelocytes but does not include bands. Percent differential counts (%) should be interpreted in the context of the absolute cell counts (cells/L). Performed By: #### C BCDF ####[address] [address] Basophils (Bld) [#/Vol] 0.02 10*3/uL Normal 0.00 - 0.10 [facility] Comment on above: Performed By: #### C BCDF ####[address] [address] Basophils/100 WBC (Bld) 0.3 % Normal 0.0 - 2.0 [facility] Comment on above: Performed By: #### C BCDF ####[address] [address] Eosinophils (Bld) [#/Vol] 0.04 10*3/uL Normal 0.00 - 0.70 [facility] Comment on above: Performed By: #### C BCDF ####[address] [address] Eosinophils/100 WBC (Bld) 0.6 % Normal 0.0 - 6.0 [facility] Comment on above: Performed By: #### C BCDF ####[address] [address] Erythrocyte distribution width (RBC) [Ratio] 13.3 % Normal 11.5 - 14.5 [facility] Comment on above: Performed By: #### C BCDF ####[address] [address] Hematocrit (Bld) [Volume fraction] 42.4 % Normal 36.0 - 46.0 [facility] Comment on above: Performed By: #### C BCDF ####[address] [address] Hemoglobin (Bld) [Mass/Vol] 14.0 g/dL Normal 12.0 - 16.0 [facility] Comment on above: Performed By: #### C BCDF ####[address] [address] Lymphocytes (Bld) [#/Vol] 1.54 10*3/uL Normal 1.20 - 4.80 [facility] Comment on above: Performed By: #### C BCDF ####[address] [address] Lymphocytes/100 WBC (Bld) 21.3 % Normal 13.0 - 44.0 [facility] Comment on above: Performed By: #### C BCDF ####[address] [address] MCHC (RBC) [Mass/Vol] 33.0 g/dL Normal 32.0 - 36.0 [facility] Comment on above: Performed By: #### C BCDF ####[address] [address] MCV (RBC) [Entitic vol] 90 fL Normal 80 - 100 [facility] Comment on above: Performed By: #### C BCDF ####[address] [address] Monocytes (Bld) [#/Vol] 0.44 10*3/uL Normal 0.10 - 1.00 [facility] Comment on above: Performed By: #### C BCDF ####[address] [address] Monocytes/100 WBC (Bld) 6.1 % Normal 2.0 - 10.0 [facility] Comment on above: Performed By: #### C BCDF ####[address] [address] Neutrophils (Bld) [#/Vol] 5.12 10*3/uL Normal 1.20 - 7.70 [facility] Comment on above: Result Comment: Perc ent differential counts (%) should be interpreted in the context of the absolute cell counts (cells/L). Performed By: #### C BCDF ####[address] [address] Neutrophils/100 WBC (Bld) 70.7 % Normal 40.0 - 80.0 [facility] Comment on above: Performed By: #### C BCDF ####[address] [address] Platelets (Bld) [#/Vol] 108 10*3/uL Low 150 - 450 [facility] Comment on above: Result Comment: Plat elet count verified by smear review. no plt clumps or clots seen Performed By: #### C BCDF ####[address] [address] RBC 4.71 x10E12/L Normal 4.00 - 5.20 [facility] Comment on above: Performed By: #### C BCDF ####[address] [address] WBC (Bld) [#/Vol] 7.2 10*3/uL Normal 4.4 - 11.3 [facility] Comment on above: Performed By: #### C BCDF ####[address] [address] COMPREHENSIVE PANELon 2022 Albumin [Mass/Vol] 3.3 g/dL Low 3.4 - 5.0 [facility] Comment on above: Performed By: #### C MP ####[address] [address] ALP [Catalytic activity/Vol] 145 U/L High 33 - 136 [facility] Comment on above: Performed By: #### C MP ####[address] [address] ALT [Catalytic activity/Vol] 17 U/L Normal 7 - 45 [facility] Comment on above: Result Comment: Stephany ents treated with Sulfasalazine may generate falsely decreased results for ALT. Performed By: #### C MP ####[address] [address] Anion gap [Moles/Vol] 10 mmol/L Normal 10 - 20 [facility] Comment on above: Performed By: #### C MP ####[address] [address] AST [Catalytic activity/Vol] 21 U/L Normal 9 - 39 [facility] Comment on above: Performed By: #### C MP ####[address] [address] Bilirubin [Mass/Vol] 0.3 mg/dL Normal 0.0 - 1.2 [facility] Comment on above: Performed By: #### C MP ####[address] [address] Calcium [Mass/Vol] 8.7 mg/dL Normal 8.6 - 10.3 [facility] Comment on above: Performed By: #### C MP ####[address] [address] Chloride [Moles/Vol] 101 mmol/L Normal 98 - 107 [facility] Comment on above: Performed By: #### C MP ####[address] [address] Creatinine [Mass/Vol] 1.09 mg/dL High 0.50 - 1.05 [facility] Comment on above: Performed By: #### C MP ####[address] [address] GFR/1.73 sq M.predicted among non-blacks MDRD (S/P/Bld) [Vol rate/Area] 56 mL/min/{1.73_m2} Abnormal >90 [facility] Comment on above: Result Comment: CALC ULATIONS OF ESTIMATED GFR ARE PERFORMED USING THE 2020 CKD-EPI STUDY REFIT EQUATION WITHOUT THE RACE VARIABLE FOR THE IDMS-TRACEABLE CREATININE METHODS. https://jasn.asnjournals.org/content/early//ASN.89507 92251 Performed By: #### C MP ####[address] [address] Glucose [Mass/Vol] 100 mg/dL High 74 - 99 [facility] Comment on above: Performed By: #### C MP ####[address] [address] HCO3 (Bld) [Moles/Vol] 31 mmol/L Normal 21 - 32 [facility] Comment on above: Performed By: #### C MP ####[address] [address] Potassium [Moles/Vol] 3.8 mmol/L Normal 3.5 - 5.3 [facility] Comment on above: Performed By: #### C MP ####[address] [address] Protein [Mass/Vol] 6.4 g/dL Normal 6.4 - 8.2 [facility] Comment on above: Performed By: #### C MP ####[address] [address] Sodium [Moles/Vol] 138 mmol/L Normal 136 - 145 [facility] Comment on above: Performed By: #### C MP ####[address] [address] Urea nitrogen [Mass/Vol] 10 mg/dL Normal 6 - 23 [facility] Comment on above: Performed By: #### C ####[facility] [place] [address] Complete Blood Count + Diffe franklin 08-20-2022 Basophils/100 WBC (Bld) 0.3 % 0.0 - 2.0 [facility] Work Phone: Erythrocyte distribution width (RBC) [Ratio] 13.3 % See Below -[facility] Work Phone: Comment on above: Reference Range: 11. 5 - 14.5 Hematocrit (Bld) [Volume fraction] 42.4 % See Below -[facility] Work Phone: Comment on above: Reference Range: 36. 0 - 46.0 Hemoglobin (Bld) [Mass/Vol] 14.0 g/dL See Below -[facility] Work Phone: Comment on above: Reference Range: 12. 0 - 16.0 Lymphocytes/100 WBC (Bld) 21.3 % See Below -[facility] Work Phone: Comment on above: Reference Range: 13. 0 - 44.0 MCHC (RBC) [Mass/Vol] 33.0 g/dL See Below - [facility] Work Phone: Comment on above: Reference Range: 32. 0 - 36.0 MCV (RBC) [Entitic vol] 90 fL 80 - 100 -[facility] Work Phone: Monocytes/100 WBC (Bld) 6.1 % 2.0 - 10.0 [facility] Work Phone: Neutrophils/100 WBC (Bld) 70.7 % See Below [facility] [facility] Work Phone: Comment on above: Reference Range: 40. 0 - 80.0 Platelets (Bld) [#/Vol] 108 10*3/uL below low threshold 150 - 450 [facility] [facility] Work Phone: Comment on above: Platelet count verif ied by smear review. no plt clumps or clots seen RBC (Bld) [#/Vol] 4.71 {x10E12/L} See Below [facility] [facility] Work Phone: Comment on above: Reference Range: 4.0 0 - 5.20 WBC (Bld) [#/Vol] 7.2 10*3/uL 4.4 - 11.3 [facility] [facility] Work Phone: Comment on above: SOURCE: Complete Blood Count + Differential 0.02 {x10E9/L} See Below [facility] [facility] Work Phone: Comment on above: Reference Range: 0.0 0 - 0.10 Complete Blood Count + Differential 0.04 {x10E9/L} See Below [facility] [address] Work Phone: Comment on above: Reference Range: 0.0 0 - 0.70 Complete Blood Count + Differential 0.44 {x10E9/L} See Below [facility] [address] Work Phone: Comment on above: Reference Range: 0.1 0 - 1.00 Complete Blood Count + Differential 1.54 {x10E9/L} See Below [facility] [address] Work Phone: Comment on above: Reference Range: 1.2 0 - 4.80 Complete Blood Count + Differential 5.12 {x10E9/L} See Below [facility] [facility] Work Phone: Comment on above: Reference Range: 1.2 0 - 7.70 Percent differential counts (%) should be interpreted in the context of the absolute cell counts (cells/L). Complete Blood Count + Differential 0.6 % 0.0 - 6.0 [facility] [facility] Work Phone: Complete Blood Count + Differential 1.0 % above high threshold 0.0 - 0.9 [place] [address] Work Phone: Comment on above: Immature Granulocyte Count (IG) includes promyelocytes, myelocytes and metamyelocytes but does not include bands. Percent differential counts (%) should be interpreted in the context of the absolute cell counts (cells/L). HEMOGLOBIN A1Con 08-20-2022 Glucose [Mass/Vol] 154 mg/dL Normal [facility] Comment on above: Performed By: #### H BA1E #### [address] [address] HbA1c (Bld) [Mass fraction] 7.0 % Abnormal [facility] Comment on above: Result Comment: Diag nosis of Diabetes-Adults Non-Diabetic: < or = 5.6% Increased risk for developing diabetes: 5.7-6.4% Diagnostic of diabetes: > or = 6.5% . Monitoring of Diabetes Age (y) Therapeutic Goal (%) Adults: >18 <7.0 Pediatrics: 13-18 <7.5 7-12 <8.0 0- 6 7.5-8.5 [employer]. Diabetes Care 33(S1), Apr 2009. Performed By: #### H BA1E #### [address] [address] Hemoglobin A1Con 08-20-2022 Glucose [Mass/Vol] 154 mg/dL [place] [address] Work Phone: HbA1c (Bld) [Mass fraction] 7.0 % Abnormal [place] [address] Work Phone: Comment on above: Diagnosis of Diabete s-Adults Non-Diabetic: < or = 5.6% Increased risk for developing diabetes: 5.7-6.4% Diagnostic of diabetes: > or = 6.5%. Monitoring of Diabetes Age (y) Therapeutic Goal (%) Adults: >18 <7.0 Pediatrics: 13-18 <7.5 7-12 <8.0 0- 6 7.5-8.5 [employer] [employer]. Diabetes Care 33(S1), Apr 2009. Laboratory - Chemistry and C hemistry - challengeon 08-20-2022 Albumin BCP dye [Mass/Vol] 3.3 g/dL below low threshold 3.4 - 5.0 -[facility] Work Phone: ALP [Catalytic activity/Vol] 145 U/L above high threshold 33 - 136 [facility] [facility] Work Phone: ALT With P-5'-P [Catalytic activity/Vol] 17 U/L 7 - 45 -[facility] [facility] Work Phone: Comment on above: Patients treated wit h Sulfasalazine may generate falsely decreased results for ALT. Anion gap [Moles/Vol] 10 mmol/L 10 - 20 - [facility] Work Phone: AST With P-5'-P [Catalytic activity/Vol] 21 U/L 9 - 39 -[facility] Work Phone: Bilirubin [Mass/Vol] 0.3 mg/dL 0.0 - 1.2 [facility] [place] [address] Work Phone: Calcium [Mass/Vol] 8.7 mg/dL 8.6 - 10.3 [facility] Work Phone: Chloride [Moles/Vol] 101 mmol/L 98 - 107 [facility] Work Phone: CO2 [Moles/Vol] 31 mmol/L 21 - 32 -[facility] Work Phone: Creatinine [Mass/Vol] 1.09 mg/dL above high threshold See Below -[facility] [facility] Work Phone: Comment on above: Reference Range: 0.5 0 - 1.05 Glucose [Mass/Vol] 100 mg/dL above high threshold 74 - 99 -[facility] [facility] Work Phone: Comment on above: SOURCE: Potassium [Moles/Vol] 3.8 mmol/L 3.5 - 5.3 - [facility] Work Phone: Protein [Mass/Vol] 6.4 g/dL 6.4 - 8.2 [facility] [facility] Work Phone: Sodium [Moles/Vol] 138 mmol/L 136 - 145 [facility] [facility] Work Phone: Urea nitrogen [Mass/Vol] 10 mg/dL 6 - 23 [facility] [facility] Work Phone: MAGNESIUMon 08-20-2022 Magnesium [Mass/Vol] 1.47 mg/dL Low 1.60 - 2.40 [facility] Comment on above: Performed By: #### B HB2 #### [place] [address] Magnesium, Serumon Magnesium [Mass/Vol] 1.47 mg/dL below low threshold See Below [facility] [facility] Work Phone: Comment on above: SOURCE: Reference Ra nge: 1.60 - 2.40 No Panel Informationon 08-20 56 {mL/min/1.73m2} Abnormal >90 -[facility] Work Phone: Comment on above: CALCULATIONS OF ROXANN MATED GFR ARE PERFORMED USING THE 2020 CKD-EPI STUDY REFIT EQUATION WITHOUT THE RACE VARIABLE FOR THE IDMS-TRACEABLE CREATININE METHODS.https://jasn.asnjournals.org/content//A SN.6633189014 VITAMIN B12on 08-20-2022 Cobalamin (Vitamin B12) [Mass/Vol] 237 pg/mL Normal 211 - 911 [facility] Comment on above: Performed By: #### V TB12 #### [place] [address] Lab Specimen Source Normal [facility] Comment on above: Performed By: #### V TB12 #### [place] [address] Performed By: #### C BCDF ####[place] [address] Performed By: #### V TDOH ####[address] [address] Performed By: #### C MP ####[address] [address] Performed By: #### B HB2 #### [address] [address] VITAMIN D, 25-HYDROXYon 08-09 VITAMIN D, 25-HYDROXY 17 ng/mL Abnormal [facility] Comment on above: Result Comment: . DEFICIENCY: < 20 NG/ML INSUFFICIENCY: 20-29 NG/ML SUFFICIENCY: 30-100 NG/ML THIS ASSAY ACCURATELY QUANTIFIES THE SUM OF VITAMIN D3, 25-HYDROXY AND VIT D2,25-HYDROXY. Performed By: #### V TDOH ####[address] [address] Vitamin B12, Serumon 023 Cobalamin (Vitamin B12) [Mass/Vol] 237 pg/mL 211 - 911 [facility] [address] Work Phone: Comment on above: SOURCE: Vitamin D 25-Hydroxyon 08-20 25-hydroxyvitamin D3 [Mass/Vol] 17 ng/mL Abnormal [facility] [address] Work Phone: Comment on above: SOURCE: .DEFICIENCY: < 20 NG/MLINSUFFICIENCY: 20-29 NG/MLSUFFICIENCY: 30-100 NG/MLTHIS ASSAY ACCURATELY QUANTIFIES THE SUM OFVITAMIN D3, 25-HYDROXY AND VIT D2,25-HYDROXY. Initial Visit (Gastroenterol ogy)on 08-18-2022 Initial Visit (Gastroenterology) Diagnoses/Problems Assessed Cirrhosis of liver (571.5) (K74.60) she thinks sh has fatty liver Diabetes mellitus with stage 3 chronic kidney disease (250.40,585.3) (E11.22,N18.30) Abdominal pain, chronic, generalized (789.07,338.29) (R10.84,G89.29) Orders Abdominal pain, chronic, generalized [id number] Phenotype, Serum; Status:Active; Requested for:18Aug2022; Perform:Lab Services - Lab To Draw (Blood Test); Due:16Nov2022;Ordered ; For:Abdominal pain, chronic, generalized; Ordered By:Kane Kilgore; Antimitochondrial Ab; Status:Active; Requested for:18Aug2022; Perform:Lab Services - Lab To Draw (Blood Test); Due:16Nov2022;Ordered ; For:Abdominal pain, chronic, generalized; Ordered By:Kane Kilgore; Comprehensive Metabolic Panel; Status:Active; Requested for:18Aug2022; Perform:Lab Services - Lab To Draw (Blood Test); Due:16Nov2022;Ordered ; For:Abdominal pain, chronic, generalized; Ordered By:Kane Kilgore; Hepatitis A Antibody, Total; Status:Active; Requested for:18Aug2022; Perform:Lab Services - Lab To Draw (Blood Test); Due:16Nov2022;Ordered ; For:Abdominal pain, chronic, generalized; Ordered By:Kane Kilgore; Hepatitis B Surface Antibody; Status:Need Information - ABN Disposition; Requested for:18Aug2022; Perform:Lab Services - Lab To Draw (Blood Test); Due:16Nov2022;Ordered ; For:Abdominal pain, chronic, generalized; Ordered By:Kane Kilgore; Hepatitis B Surface Antigen; Status:Active; Requested for:18Aug2022; Perform:Lab Services - Lab To Draw (Blood Test); Due:16Nov2022;Ordered ; For:Abdominal pain, chronic, generalized; Ordered By:Kane Kilgore; Hepatitis C Antibody Test; Status:Need Information - ABN Disposition; Requested for:18Aug2022; Perform:Lab Services - Lab To Draw (Blood Test); Due:16Nov2022;Ordered ; For:Abdominal pain, chronic, generalized; Ordered By:Kane Kilgore; Iron + TIBC, Serum; Status:Active; Requested for:18Aug2022; Perform:Lab Services - Lab To Draw (Blood Test); Due:16Nov2022;Ordered ; For:Abdominal pain, chronic, generalized; Ordered By:Kane Kilgore; Smooth Muscle Antibody Screen; Status:Active; Requested for:18Aug2022; Perform:Lab Services - Lab To Draw (Blood Test); Due:[id number];Ordered ; For:Abdominal pain, chronic, generalized; Ordered By:Kane Kilgore; Ultrasound Liver Radiology; Status:Active; Requested for:03Sep2022; Perform: Radiology Services Imaging;Ordered; For:Abdominal pain, chronic, generalized; Ordered By:Kane Kilgore; Radiologist to Determine Optimal Study : Y What are the patient's signs and symptoms? : Cirrhosis Abdominal pain, chronic, generalized, Cirrhosis of liver Alpha Fetoprotein, Serum; Status:Active; Requested for:18Aug2022; Perform:Lab Services - Lab To Draw (Blood Test); Due:16Nov2022;Ordered ; For:Abdominal pain, chronic, generalized, Cirrhosis of liver; Ordered By:Kane Kilgore; Ferritin, Serum; Status:Active; Requested for:18Aug2022; Perform:Lab Services - Lab To Draw (Blood Test); Due:16Nov2022;Ordered ; For:Abdominal pain, chronic, generalized, Cirrhosis of liver; Ordered By:Kane Kilgore; Provider Impressions Complicated medical history with chronic abdominal pain constipation and possible indeterminant gallbladder issues. Historically has not had her gallbladder out per her history but there is conflicting radiographic report stating the gallbladder was removed on the CT scan but is present with polyps on MRI. Additionally has known underlying cirrhosis on CT which she is told was related to her diabetes. She denies any significant alcohol intake. She denies any familial members having liver failure. I do not believe her abdominal pain is gallbladder in origin as it is worse with activity improved with rest does not sound ischemic or anginal. It may be precipitated by her constipation as she states even walking the rebound causes pain in her upper abdomen. This may be related to her cirrhosis and some liver capsular stress. I advised her that we should repeat her ultrasound of her right upper quadrant given her quasi and questionable history of whether gallbladder was removed and also to get a better look at her liver. I will check for intrinsic, treatable liver disease and see her back after all the testing is completed. At this time I advised to resume her Linzess for which she needs a prescription advised to reach out to her family doctor who had been prescribing it to renew. Chief Complaint NPV in office today for abdominal pain, constipation, bloating, nausea. Patient state she has had a colonoscopy in the past with Callie Mcdonough's office but I do not see any record. History of Present IllnessPresents for chronic abdominal pain pain epigastric right upper quadrant like a band around her abdomen worse with activity improves with rest. Awakens her approximately 2 AM has to sit up in a chair and raise her feet up to her chest to relieve pain. Historically had gallbladder work-up CT showed absence of gallbladder MRI 6 weeks later showed polyp in gallbladder priya (more content not included)... Normal [facility] Radiologyon 08-05-2022 XR Lumbar spine AP and Lateral Normal [facility] Work Phone: SPINE, LUMBOSACRAL 2 OR 3 EWSon 08-05-2022 SPINE, LUMBOSACRAL 2 OR 3 VIEWS Patient Name: JANELLE PICKETT STUDY: SPINE, LUMBOSACRAL; 2 OR 3 VIEWS; ; 08/05/2022 9:32 am INDICATION: lower back and leg pain M54.16: Lumbar radiculopathy, chronic M48.062: Neurogenic claudication due to lumbar spinal stenosis. COMPARISON: 11/16/2021 ACCESSION NUMBER(S): [id number] ORDERING CLINICIAN: KELLY CARRASCO FINDINGS: No acute fracture. Multilevel disc space narrowing. Multilevel facet arthropathy. Multilevel anterior osteophyte formation. Presumed old angulation deformity of the coccyx. IMPRESSION: Multilevel spondylosis without acute osseous abnormality of the lumbar spine. Electronically signed by: MATTHEW HU MD Merged With [facility] Established Visit (Pain Medi cine)on 08-04-2022 Established Visit (Pain Medicine) Diagnoses/Problems Lumbar radiculopathy, chronic (724.4) (M54.16) Neurogenic claudication due to lumbar spinal stenosis (724.03) (M48.062) Orders Lumbar radiculopathy, chronic Renew: Gabapentin 400 MG Oral Capsule; TAKE 1 CAPSULE 3 times daily Lumbar radiculopathy, chronic, Neurogenic claudication due to lumbar spinal stenosis Xray BN Spine, Lumbosacral; 2 or 3 Views; Status:Hold For - Scheduling; Requested for:04Aug2022; Radiologist to Determine Optimal Study : Y What are the patient's signs and symptoms? : lower back and leg pain Provider Impressions Patient is a 66-year-old female with a past medical history significant for lumbar stenosis and lumbar neuritis. Unfortunate, she has been noticing more and more radicular symptoms over the last month. Unfortunate, previous facet treatments did not give her any significant relief of her lower back pain and now she has been noticing bilateral leg pain as well as weakness. This is affecting her ambulatory status. This is affecting her quality of life and activities of daily. Respecting her ability to get comfortable and affecting her ability to do things she wants to do. We once again reviewed her previous MRI. Based on her pain pattern, her MRI findings, and her failure to improve with conservative treatments?she does a home exercise program from physical therapy on her own without any long-term relief I recommended to her an L5-S1 epidural steroid injection for both diagnostic and therapeutic purposes. Procedure was discussed. Risks and benefits were discussed. Patient is agreeable. She will follow-up 2 to 3 weeks after for reevaluation. Prior to her injection we will obtain an x-ray to assess her anatomy and we also will have her take gabapentin. She is going to use 400 mg 3 times a day. She was taking it 3 times a day despite being prescribed for twice a day by her PCP so her PCP will no longer fill this. I told her that if she takes it more than 3 times a day and she takes it more than I prescribed to her I will no longer prescribe to her. She voiced understanding and stated that she would not take it more than 3 times a day. Potential side effects of the medication were discussed. OARRS was reviewed. Follow-up as above-mentioned. Chief Complaint Patient complains of pain in her lower back and down her bilateral legs. Patient rates this pain a 9/10 right now. Patient states she's had this pain for months . She is unable to give a detailed time line of when it started. Patient denied injury causing the pain. Patient denied numbness or tingling. Patient states she has constant lower back and leg pain. The leg pain goes down her legs and stops at her knees. Patient is a current smoker. Education handout provided. Depression screen completed, negative. BMI NA due to age. PAULIE score 32. Adult Risk Screening Living Will. Living Will: No living will on file. Healthcare POA: No healthcare proxy on file. Declaration of Mental Health Treatment: No mental health treatment on file. Domestic Violence Screen: Does not feel threatened or abused physically, emotionally or sexually. Do you feel UNSAFE? The patient feels safe in the home. Depression/Suicide Screening: During the past 2 weeks, the patient has not felt down, depressed or hopeless. During the past 2 weeks, the patient has not felt little interest or pleasure in doing things. She does not have a risk of suicide. She has not had thoughts of harming others. Reference Documentation See scanned note PAULIE. History of Present Illness On a scale of 0 to 10, the patient rates the pain at 9. Pain Location: Low Back Pain. Pain Quality: Throbbing. Pain Radiation: Radiates down legs to knees. Sensory/ Motor: Weakness and Patient states weakness in legs. Timing/Duration: Constant and > 12 weeks duration. Patient Education:1 Inj. education completed written and verbally.1 . Patient is a 66-year-old female. She presents today for follow-up to discuss once again her options. She states that over the last month or so she has been noticing lower back pain with bilateral radiating leg pain. This goes down to her ankle. She rates it a 9/10. She states that things have gotten so bad her legs feel weak, tired, heavy, and she cannot do anything throughout the day. She states that she can only stand for 5 to 10 minutes and she can only walk for the same amount of time and she has to sit down. She states that this has been miserable for her. Because of that she increase her gabapentin on her own to 400 mg 3 times a day. She states that her primary care physician will no longer fill it because of this but she states that she had to do something to try to get some pain relief. She has been doing her physical therapy home exercise program without any relief. She has also tried OTC anti-inflammatory medication without any relief. She rates the discomfort a 9/10. This affects her ambulatory status. This affects her quality of life and activities of (more content not included)... Normal [facility] Initial Visit (General Surge ry)on 07-23-2022 Initial Visit (General Surgery) Diagnoses/Problems Abdominal pain, chronic, generalized (789.07,338.29) (R10.84,G89.29) History of Umbilical hernia repair History of Cholecystectomy laparoscopic Provider Impressions Ms. Pickett is a 66-year-old female with previous laparoscopic cholecystectomy with what appears to be stones in the remnant cystic duct. While this may be the etiology of her postprandial sharp right upper quadrant abdominal pain, this pain is short-lived and only when eating greasy and fatty foods. Her biggest complaint is her generalized abdominal pain. I do not have a surgical etiology for this. I do not think surgery for this cystic duct remnant would solve her generalized abdominal pain. I have concerns that surgery for this cystic duct remnant would carry a risk of common duct injury. Given findings on imaging suggestive of cirrhosis and concern for possible portal hypertension given splenomegaly seen on imaging, I would not offer surgery at our [facility]. I have recommended a low fat biliary diet to minimize symptoms, although, again this RUQ pain is not her biggest complaint today. I offered a second opinion by a hepatobiliary specialist, but patient declined as she does not want to drive to [place] and states that she already has a lot of doctors appointments. I will see her on an as needed basis. Chief Complaint Abdominal pain History of Present IllnessMsTeena Pickett is a 66-year-old female seen at the request of Callie Mcdonough PA-C, for evaluation of abdominal pain. The patient seems to have 2 separate types of pain. One is a generalized chronic abdominal pain. This is constant and occurs daily. She also complains of bloating and constipation. The other type of pain that she experiences is after eating greasy or fatty food, including hamburger meat, after which she gets more sharp right upper quadrant abdominal pain. This usually lasts for less than an hour and a half. She reports having gallbladder surgery years and years ago at [facility]. She does not recall specifics of the surgery, but it sounds like it was performed in an acute setting. Her other abdominal surgery includes a and an emergent umbilical hernia repair with small bowel resection about 5 years ago, also performed at [facility]. She denies any fever, yellowing of the skin or eyes or dark-colored urine associated with these episodes of pain. She also has cirrhosis. She had imaging and work-up of this abdominal pain including a CT scan which showed no acute etiology and this was read as being status postcholecystectomy. She subsequently had a HIDA scan which showed nonfilling of a gallbladder. She subsequently had an MRCP which showed stones within the cystic duct remnant. This also showed some splenomegaly with concern for portal hypertension. Review of Systems Constitutional: + Weight loss Cardiovascular: + Cramps in legs with walking, unexplained shortness of breath, dizziness Respiratory: + Chronic cough, asthma or wheezing, pain with breathing Gastrointestinal: + Abdominal pain, blood per rectum, bloating, food sensitivity, nausea/vomiting, heartburn Genitourinary: no dysuria or urinary frequency Musculoskeletal: + Joint pain/stiffness, back pain, arthritis Integumentary: no rashes Neurological: + Numbness in the arms/hands, legs/feet, dizziness or fainting, headaches, memory loss, unsteady gait, weakness Psychiatric: + Difficulty sleeping Endocrine: + Heat or cold intolerance, unexplained thirst, changes in skin Heme/Lymph: + Easy bruising or bleeding Active Problems Abdominal pain, chronic, generalized (789.07,338.29) (R10.84,G89.29) Assessed By: Kiley Yo (General Surgery); Last Assessed: 23 Jul 2022 Acute pain of left knee (719.46) (M25.562) Arthritis of facet joint of lumbar spine (721.90) (M47.816) Chronic low back pain with left-sided sciatica, unspecified back pain laterality (724.2,724.3,338.29) (M54.42,G89.29) Cirrhosis of liver (571.5) (K74.60) she thinks sh has fatty liver Class 3 severe obesity due to excess calories with serious comorbidity and body mass index (BMI) of 40.0 to 44.9 in adult (278.01,V85.41) (E66.01,Z68.41) COPD (chronic obstructive pulmonary disease) (496) (J44.9) Degenerative lumbar spinal stenosis (724.02) (M48.061) Depression, major, single episode, mild (296.21) (F32.0) Diabetes (250.00) (E11.9) Diabetes mellitus with stage 3 chronic kidney disease (250.40,585.3) (E11.22,N18.30) Intermittent gross hematuria (599.71) (R31.0) Lumbar radiculopathy, chronic (724.4) (M54.16) Medication management (V58.69) (Z79.899) Myalgia (729.1) (M79.10) Nocturia (788.43) (R35.1) Pain in thoracic spine (724.1) (M54.6) Pain of left lower extremity (729.5) (M79.605) Primary osteoarthritis of left knee (715.16) (M17.12) Renal cyst (753.10) (N28.1) Type 2 diabetes mellitus with hyperglycemia, with long-term current use of insulin (250.00,790.29,V58.67 ) (E11.65,Z79.4) Past Medical History H/O mammogram (V15. (more content not included)... Normal [employer] Tobacco Screening.on 023 Fall risk assessment a) No falls within the last year [facility] Work Phone: Tobacco use status CPHS a) Yes [facility] Work Phone: MRCP Abdomen w/wo Contraston 07-20-2022 MRCP Abdomen WO and W contrast IV Normal [facility] Work Phone: MRCP WITH ABDOMEN WO/W CONTR Carmen 07-20-2022 MRCP WITH ABDOMEN WO/W CONTRAST Patient Name: JANELLE PICKETT STUDY: MRCP WITH ABDOMEN WO/W CONTRAST; 07/20/2022 5:11 pm INDICATION: LUQ pain, abnorm HIDA. COMPARISON: HIDA [address] abdomen and pelvis with contrast 12 June 2022 ACCESSION NUMBER(S): [id number] ORDERING CLINICIAN: CALLIE MCDONOUGH TECHNIQUE: Multi-planar, multi-pulse sequence MRI abdomen before and after the uneventful administration of 19 mL gadolinium-based intravenous contrast material (Dotarem), including MRCP with coronal thick slab volume-rendered reformatted images. Three dimensional maximum intensity projection (3-D MIPs) image/s were created on a separate dedicated workstation, reviewed and saved FINDINGS: PANCREAS: Acute inflammatory change: Negative Morphologic changes of chronic pancreatitis: Negative Gland necrosis: Negative Peripancreatic collection: Negative Peripancreatic fat necrosis: Negative Main duct dilation: Negative Pancreas divisum: Negative Solid mass: Negative Cyst / cystic lesion: Negative LIVER: Size: Within normal limits Cirrhotic change: Lobular and nodular contours similar to recent CT Fatty change: Negative Significant iron deposition: Negative Solid mass: Negative Other: n/a GALLBLADDER: Stone/s: Stones confirmed on recent CT are not as readily demonstrable on this MRI due to technical factors Polyp: Cannot evaluate Dilation: Chronically contracted Wall thickening: None pathologic Other: Unchanged from prior CT BILE DUCTS: Intrahepatic dilation: Allowing for age-related physiologic ectasia, Negative Extrahepatic dilation: Allowing for age-related physiologic ectasia, Negative Stricture: Negative Stone/s: Negative Other: n/a SPLEEN: Craniocaudal long-axis diameter is 17 cm, moderately enlarged. No interval change. No mass. The vein is patent RIGHT ADRENAL GLAND: No mass or hyperplasia. LEFT ADRENAL GLAND: The unchanged 17 mm solitary nodule is confirmed an adenoma RIGHT KIDNEY AND INCLUDED URETER: No hydronephrosis, solid mass or any other acute findings. LEFT KIDNEY AND INCLUDED URETER: No hydronephrosis, solid mass or any other acute findings. Subcentimeter hemorrhagic cyst medially towards the upper pole; it is a Bosniak type 2, does not need follow-up. The only other focal renal lesion is a simple cyst, Bosniak type 1, does not need follow-up LYMPH NODES: No abdominal adenopathy, intraperitoneal, retroperitoneal or otherwise. INCLUDED BOWEL: Normal in caliber and wall thickness. RETROPERITONEUM: Normal. No hemorrhage or inflammatory change. (lymph nodes in dedicated section) OMENTUM, MESENTERY AND PERITONEAL SPACES: No fluid collection or free fluid. Grossly normal omentum and mesentery. (lymph nodes in dedicated section) VASCULATURE: No abdominal aortic aneurysm. No large vessel occlusion or critical stenosis. The portal venous system is patent. LOWER CHEST: No pleural effusion. BONES: Normal marrow signal intensity in the included skeleton. IMPRESSION: CT ABDOMEN AND PELVIS 12 JUNE 2022 SHOWED WHAT AT THAT TIME WAS TAKEN TO BE POSTSURGICAL CHANGES RELATED TO CHOLECYSTECTOMY. THE CT APPEARANCE OF THE GALLBLADDER FOSSA RESEMBLE STONES WITHIN A CYSTIC DUCT REMNANT. GIVEN THE PATIENT HAS NOT HAD A CHOLECYSTECTOMY, THE CT FINDINGS MUST REPRESENT STONES WITHIN CHRONICALLY, COMPLETELY CONTRACTED GALLBLADDER I HAVE ALSO REFERENCED IMAGES AND REPORT FROM MORE RECENT HIDA 02 JULY 2022 TODAY'S EXAM SHOWS SAME, CHRONICALLY CONTRACTED GALLBLADDER TODAY'S EXAM CONFIRMS NO CHOLEDOCHOLITHIASIS OR BILIARY STRICTURE ALLOWING FOR AGE-RELATED PHYSIOLOGIC BILIARY ECTASIA, I DO NOT SUSPECT PATHOLOGIC BILIARY DUCT DILATION. THE EXTRAHEPATIC DUCT NEAR THE HILUS MEASURES 7 MM DIAMETER, WITHIN EXPECTED LIMITS AT THIS AGE LOBULAR AND NODULAR LIVER SUSPECT FOR CIRRHOSIS OR AT LEAST DEVELOPING HEPATOCELLULAR DISEASE THE UNCHANGED SPLENOMEGALY COULD BE FROM PORTAL HYPERTENSION THE ENTIRE PORTAL VENOUS SYSTEM INCLUDING THE SPLENIC VEIN, SMV AND ITS MAJOR TRIBUTARIES, MAIN AND INTRAHEPATIC PORTAL VEINS ARE ALL PATENT; NO ACUTE PORTAL VENOUS THROMBOSIS ALL THREE HEPATIC VEINS ARE PATENT; NO ACUTE HEPATIC VENOUS THROMBOSIS NO LIVER (OR ANY OTHER ABDOMINAL) MASS SUSPECT FOR MALIGNANCY, ONLY THE RIGHT ADRENAL ADENOMA Electronically signed by: LAKSHMI LANE MD Merged With [facility] Complete Blood Count + Diffe franklin 07-16-2022 Basophils/100 WBC (Bld) 0.3 % 0.0 - 2.0 [facility] Work Phone: Erythrocyte distribution width (RBC) [Ratio] 13.2 % See Below [facility] Work Phone: Comment on above: Reference Range: 11. 5 - 14.5 Hematocrit (Bld) [Volume fraction] 45.8 % See Below [facility] Work Phone: Comment on above: Reference Range: 36. 0 - 46.0 Hemoglobin (Bld) [Mass/Vol] 14.8 g/dL See Below [facility] Work Phone: Comment on above: Reference Range: 12. 0 - 16.0 Lymphocytes/100 WBC (Bld) 27.4 % See Below [facility] Work Phone: Comment on above: Reference Range: 13. 0 - 44.0 MCHC (RBC) [Mass/Vol] 32.3 g/dL See Below [facility] Work Phone: Comment on above: Reference Range: 32. 0 - 36.0 MCV (RBC) [Entitic vol] 91 fL 80 - 100 [facility] Work Phone: Monocytes/100 WBC (Bld) 6.2 % 2.0 - 10.0 [facility] Work Phone: Neutrophils/100 WBC (Bld) 64.9 % See Below [facility] Work Phone: Comment on above: Reference Range: 40. 0 - 80.0 Platelets (Bld) [#/Vol] 115 10*3/uL below low threshold 150 - 450 [facility] Work Phone: Comment on above: Platelet count verif ied by smear review. no plt clumps or clots seen RBC (Bld) [#/Vol] 5.06 {x10E12/L} See Below [facility] Work Phone: Comment on above: Reference Range: 4.0 0 - 5.20 WBC (Bld) [#/Vol] 6.8 10*3/uL 4.4 - 11.3 [facility] Work Phone: Complete Blood Count + Differential 0.02 {x10E9/L} See Below [facility] Work Phone: Comment on above: Reference Range: 0.0 0 - 0.10 Complete Blood Count + Differential 0.04 {x10E9/L} See Below [facility] Work Phone: Comment on above: Reference Range: 0.0 0 - 0.70 Complete Blood Count + Differential 0.42 {x10E9/L} See Below [facility] Work Phone: Comment on above: Reference Range: 0.1 0 - 1.00 Complete Blood Count + Differential 1.86 {x10E9/L} See Below [facility] Work Phone: Comment on above: Reference Range: 1.2 0 - 4.80 Complete Blood Count + Differential 4.42 {x10E9/L} See Below [facility] Work Phone: Comment on above: Reference Range: 1.2 0 - 7.70 Percent differential counts (%) should be interpreted in the context of the absolute cell counts (cells/L). Complete Blood Count + Differential 0.6 % 0.0 - 0.9 [facility] Work Phone: Comment on above: Immature Granulocyte Count (IG) includes promyelocytes, myelocytes and metamyelocytes but does not include bands. Percent differential counts (%) should be interpreted in the context of the absolute cell counts (cells/L). Cult, Urineon 07-16-2022 Bacteria identified Cx Nom (U) [facility] Work Phone: Ferritin, Serumon 07-16-2022 Ferritin [Mass/Vol] 111 ug/L 8 - 150 [facility] Work Phone: Hemoglobin A1Con 07-16-2022 Glucose [Mass/Vol] 171 mg/dL [facility] Work Phone: HbA1c (Bld) [Mass fraction] 7.6 % Abnormal [facility] Work Phone: Comment on above: Diagnosis of Diabete s-Adults Non-Diabetic: < or = 5.6% Increased risk for developing diabetes: 5.7-6.4% Diagnostic of diabetes: > or = 6.5%. Monitoring of Diabetes Age (y) Therapeutic Goal (%) Adults: >18 <7.0 Pediatrics: 13-18 <7.5 7-12 <8.0 0- 6 7.5-8.5 [place] [employer]. Diabetes Care 33(S1), Apr 2009. Hepatitis Panel, Acute (HCFA )on 07-16-2022 HAV IgM IA Ql Non-Reactive See Below [facility] Work Phone: Comment on above: SOURCE: Reference Ra nge: NONREACTIVE Biotin interference may cause falsely decreased results. Patients taking a Biotin dose of up to 5 mg/day should refrain from taking Biotin for 24 hours before sample collection. Providers may contact their local laboratory for further information. Hepatitis Panel, Acute (HCFA) Non-Reactive See Below [facility] Work Phone: Comment on above: Reference Range: NON REACTIVE Results from patients taking biotin supplements or receiving high-dose biotin therapy should be interpreted with caution due to possible interference with this test. Providers may contact their local laboratory for further information. Reference Range: NON REACTIVE Biotin interference may cause falsely decreased results. Patients taking a Biotin dose of up to 5 mg/day should refrain from taking Biotin for 24 hours before sample collection. Providers may contact their local laboratory for further information. Laboratory - Chemistry and C hemistry - challengeon 07-16-2022 Albumin BCP dye [Mass/Vol] 3.4 g/dL 3.4 - 5.0 [facility] Work Phone: Albumin Ql (U) 1052.2 mg/L See Below [facility] Work Phone: Comment on above: Reference Range: Not Established Albumin/Creatinine DL <= 20 mg/L (U) [Mass ratio] 1388.1 {ug/mg_crt} above high threshold 0.0 - 30.0 [facility] Work Phone: ALP [Catalytic activity/Vol] 112 U/L 33 - 136 [facility] Work Phone: ALT With P-5'-P [Catalytic activity/Vol] 16 U/L 7 - 45 [facility] Work Phone: Comment on above: Patients treated wit h Sulfasalazine may generate falsely decreased results for ALT. Anion gap [Moles/Vol] 10 mmol/L 10 - 20 [facility] Work Phone: AST With P-5'-P [Catalytic activity/Vol] 17 U/L 9 - 39 [facility] Work Phone: Bilirubin [Mass/Vol] 0.2 mg/dL 0.0 - 1.2 [facility] Work Phone: Calcium [Mass/Vol] 8.6 mg/dL 8.6 - 10.3 [facility] Work Phone: Chloride [Moles/Vol] 103 mmol/L 98 - 107 [facility] Work Phone: CO2 [Moles/Vol] 29 mmol/L 21 - 32 [facility] Work Phone: Creatinine (U) [Mass/Vol] 75.8 mg/dL See Below [facility] Work Phone: Comment on above: Reference Range: 20. 0 - 320.0 Creatinine [Mass/Vol] 1.00 mg/dL See Below [facility] Work Phone: Comment on above: Reference Range: 0.5 0 - 1.05 Glucose [Mass/Vol] 124 mg/dL above high threshold 74 - 99 [facility] Work Phone: Iron [Mass/Vol] 44 ug/dL 35 - 150 [facility] Work Phone: Iron binding capacity [Mass/Vol] 249 ug/dL 240 - 445 [facility] Work Phone: Potassium [Moles/Vol] 4.1 mmol/L 3.5 - 5.3 [facility] Work Phone: Protein [Mass/Vol] 6.6 g/dL 6.4 - 8.2 [facility] Work Phone: Sodium [Moles/Vol] 138 mmol/L 136 - 145 [facility] Work Phone: Urea nitrogen [Mass/Vol] 8 mg/dL 6 - 23 [facility] Work Phone: Lipid Panelon 07-16-2022 Cholesterol [Mass/Vol] 171 mg/dL 0 - 199 [facility] Work Phone: Comment on above: . AGE DESIRABLE BORD ANANYA HIGH HIGH 0-19 Y 0 - 169 170 - 199 >/= 200 20-24 Y 0 - 189 190 - 224 >/= 225 >24 Y 0 - 199 200 - 239 >/= 240 All ranges are based on fasting samples. Specific therapeutic targets will vary based on patient-specific cardiac risk.. Pediatric guidelines reference:Pediatrics 2011, 128(S5). Adult guidelines reference: NCEP ATPIII Guidelines, HILDA 2001, 258:2486-97. Venipuncture immediately after or during the administration of Metamizole may lead to falsely low results. Testing should be performed immediately prior to Metamizole dosing. Cholesterol in HDL [Mass/Vol] 34.0 mg/dL Abnormal [facility] Work Phone: Comment on above: . AGE VERY LOW LOW N ORMAL HIGH 0-19 Y < 35 < 40 40-45 ---- 20-24 Y ---- < 40 >45 ---- >24 Y ---- < 40 40-60 >60. Cholesterol in LDL [Mass/Vol] 78 mg/dL 0 - 99 [facility] Work Phone: Comment on above: . NEAR BORD AGE KESHA RABLE OPTIMAL HIGH HIGH VERY HIGH 0-19 Y 0 - 109 --- 110-129 >/= 130 ---- 20-24 Y 0 - 119 --- 120-159 >/= 160 ---- >24 Y 0 - 99 100-129 130-159 160-189 >/=190. Cholesterol non HDL [Mass/Vol] 137 mg/dL [email or web address] Work Phone: Comment on above: AGE DESIRABLE BORDER LINE HIGH HIGH VERY HIGH 0-19 Y 0 - 119 120 - 144 >/= 145 >/= 160 20-24 Y 0 - 149 150 - 189 >/= 190 ---- >24 Y 30 MG/DL ABOVE LDL CHOLESTEROL GOAL. Cholesterol.total/Chol esterol in HDL [Mass ratio] 5.0 {ratio} [email or web address] Work Phone: Comment on above: REF VALUESDESIRABLE < 3.4HIGH RISK > 5.0 Triglyceride [Mass/Vol] 294 mg/dL above high threshold 0 - 149 [email or web address] Work Phone: Comment on above: . AGE DESIRABLE BORD ANANYA HIGH HIGH VERY HIGH 0 D-90 D 19 - 174 ---- ---- ----91 D- 9 Y 0 - 74 75 - 99 >/= 100 ---- 10-19 Y 0 - 89 90 - 129 >/= 130 ---- 20-24 Y 0 - 114 115 - 149 >/= 150 ---- >24 Y 0 - 149 150 - 199 200- 499 >/= 500. Venipuncture immediately after or during the administration of Metamizole may lead to falsely low results. Testing should be performed immediately prior to Metamizole dosing. Lipid Panel 59 mg/dL above high threshold 0 - 40 [facility] Work Phone: Magnesium, Serumon 3 Magnesium [Mass/Vol] 1.37 mg/dL below low threshold See Below [facility] Work Phone: Comment on above: Reference Range: 1.6 0 - 2.40 No Panel Informationon 07-16 18 % below low threshold 25 - 45 [facility] Work Phone: 62 {mL/min/1.73m2} >90 [facility] Work Phone: Comment on above: CALCULATIONS OF ROXANN MATED GFR ARE PERFORMED USING THE 2020 CKD-EPI STUDY REFIT EQUATION WITHOUT THE RACE VARIABLE FOR THE IDMS-TRACEABLE CREATININE METHODS.https://jasn.asnjournals.org/content/early/A SN.0839551558 POCT UA Automated manually r esultedon 07-16-2022 Appearance (U) Clear Clear [facility] Work Phone: Glucose Test strip (U) [Mass/Vol] Negative NEGATIVE mg/dl [facility] Work Phone: Hemoglobin Ql (U) MODERATE (2+) Abnormal NEGATIVE [facility] Work Phone: Interpretation and review of laboratory results Abnormal [facility] Work Phone: Leukocyte esterase Test strip Ql (U) Negative NEGATIVE [facility] Work Phone: Nitrite Ql (U) Negative NEGATIVE [facility] Work Phone: pH (U) 5.5 [pH] No Reference Range Established [facility] Work Phone: POC Bilirubin, Urine Negative NEGATIVE [facility] Work Phone: POC Color, Urine Yellow Straw, Yellow, Light Yellow [facility] Work Phone: POC Ketones, Urine Negative NEGATIVE mg/dl [facility] Work Phone: POC Protein, Urine 100 (2+) Abnormal NEGATIVE, 30 (1+) mg/dl [facility] Work Phone: POC Specific [employer], Urine 1.025 1.005 - 1.035 [facility] Work Phone: POC Urobilinogen, Urine 0.2 0.2, 1.0 EU/DL [facility] Work Phone: [facility] Work Phone: T4 - Free Thyroxine, Serumon 07-16-2022 Free T4 [Mass/Vol] 0.84 ng/dL See Below [facility] Work Phone: Comment on above: Reference Range: 0.6 1 - 1.12 Thyroxine Free testing is performed using different testing methodology at [facility] than at other [place] [facility]. Direct result comparisons should only be made within the same method.. Biotin can cause falsely elevated free T4 results. Patients taking a Biotin dose of up to 10 mg/day should refrain from taking Biotin for 24 hours before sample collection. Patient taking a Biotin dose of >10 mg/day should consult with their physician or the laboratory before the blood draw. TSH - Thyroid Stimulating Ho rmone, Serumon 07-16-2022 TSH Qn 7.04 m[IU]/L above high threshold See Below [facility] Work Phone: Comment on above: Reference Range: 0.4 4 - 3.98 TSH testing is performed using different testing methodology at [facility] than at other [place] [facility]. Direct result comparisons should only be made within the same method. URINE CULTURE,BACTERIALon URINE CULTURE,BACTERIAL PATIENT: JANELLE PICKETT LOCATION: [facility] BILL#: [id number] : 57 AGE: SEX: F ORDERED BY: NAYANA GU SOURCE: URINE COLLECTED: 07/16/22 09:50 ANTIBIOTICS AT JU[facility]U.: RECEIVED : 07/16/22 18:29 SITE: Clean Catch/Voided R E S U L T S URINE CULTURE,BACTERIAL FINAL 07/17/22 13:02 NO SIGNIFICANT GROWTH. Merged With [facility] Comment on above: Performed By: #### U [facility] ####[id number] [place] [address] Office Visit (Urology)on Follow-up visit Diagnoses/Problems Assessed Intermittent gross hematuria (599.71) (R31.0) Renal cyst (753.10) (N28.1) Nocturia (788.43) (R35.1) Patient Discussion/Summary CT reviewed Needs F/U on Adrenal lesion and gastrohepatic LN in 3 months. Patient aware and will discuss with PCP Treatment options for LUTS reviewed Discussed timed voiding. Discussed fluid and caffeine intake Discussed Bowel Program Lifestyle change to help prevent UTIs discussed. Encouraged fluid intake. F/U Cysto Chief Complaint HEMATURIA History of Present IllnessPatient is here for hematuria. She states she was in the ER for constipation and unsure if blood was in her stool or urine . UA done recently showed small amount of blood CT on 07/01 showed 1cm simple fluid density cyst in left kidney. No stones seen. No recent UTI's.. GRICELDA sx are chronic and stable.. Nocturia x 6-8, depending on fluid intake Review of Systems Constitutional: No fever, No chills. Eye: Negative. Ear/Nose/Mouth/Throat : Negative. Respiratory: No shortness of breath, No cough. Cardiovascular: No chest pain, No peripheral edema. Gastrointestinal: No nausea, Genitourinary: Negative except as documented in history of present illness. Hematology/Lymphatics : Patient denies being on blood thinners.. Endocrine: Negative. Immunologic: Not immunocompromised. Musculoskeletal: Negative Integumentary: Negative. Neurologic: Alert and oriented X4. Psychiatric: Negative. Active Problems Problems Acute pain of left knee (719.46) (M25.562) Arthritis of facet joint of lumbar spine (721.90) (M47.816) Chronic low back pain with left-sided sciatica, unspecified back pain laterality (724.2,724.3,338.29) (M54.42,G89.29) Cirrhosis of liver (571.5) (K74.60) she thinks sh has fatty liver Class 3 severe obesity due to excess calories with serious comorbidity and body mass index (BMI) of 40.0 to 44.9 in adult (278.01,V85.41) (E66.01,Z68.41) COPD (chronic obstructive pulmonary disease) (496) (J44.9) Degenerative lumbar spinal stenosis (724.02) (M48.061) Depression, major, single episode, mild (296.21) (F32.0) Diabetes (250.00) (E11.9) Diabetes mellitus with stage 3 chronic kidney disease (250.40,585.3) (E11.22,N18.30) Lumbar radiculopathy, chronic (724.4) (M54.16) Medication management (V58.69) (Z79.899) Myalgia (729.1) (M79.10) Pain in thoracic spine (724.1) (M54.6) Pain of left lower extremity (729.5) (M79.605) Primary osteoarthritis of left knee (715.16) (M17.12) Type 2 diabetes mellitus with hyperglycemia, with long-term current use of insulin (250.00,790.29,V58.67 ) (E11.65,Z79.4) Past Medical History Problems H/O mammogram (V15.89) (Z92.89) [id number] History of Papanicolaou smear (V45.89) (Z98.890) 02/2022- NORMAL. DONE AT [address] [place] [address] History of Influenza vaccination declined (V64.06) (Z28.21) Surgical History Problems History of Colonoscopy 2020- [facility]- NORMAL. REPEAT IN 10 YEARS History of Medial branch block Managed By: Miguel Angelo (Pain Medicine) Bilat L4-S1 MBB History of Oophorectomy [id number]- RIGHT Family History Mother Family history of Aneurysm [id number]- Father Family history of Edema 1970 Brother Family history of malignant neoplasm (V16.9) (Z80.9) 2-3 AUNTS ON PATIENT'S DAD'S SIDE HAD CANCER. PT BOTHER ALSO HAS CANCER (PT NOT SURE WHAT KIND OF CANCER) Aunt Family history of malignant neoplasm (V16.9) (Z80.9) 2-3 AUNTS ON PATIENT'S DAD'S SIDE HAD CANCER. PT BOTHER ALSO HAS CANCER (PT NOT SURE WHAT KIND OF CANCER) Social History Problems Denies alcohol consumption (V49.89) (Z78.9) Does not use illicit drugs (V49.89) (Z78.9) No advance directives (V49.89) (Z78.9) Smoker (305.1) (F17.200) Allergies Medication No Known Drug Allergies Recorded By: Tito Reilly; 09/10/2021 10:28:40 AM Current Meds Medication NameInstruction Advair HFA 230-21 MCG/ACT Inhalation AerosolINHALE 2 PUFFS AT 12 HOUR INTERVALS (MORNING AND EVENING). Albuterol Sulfate HFA 108 (90 Base) MCG/ACT Inhalation Aerosol SolutionINHALE 2 PUFFS Every 6 hours PRN SOB/WHEEZING Atorvastatin Calcium 20 MG Oral TabletTAKE 1 TABLET DAILY. Cilostazol 50 MG Oral TabletOnce daily Citalopram Hydrobromide 40 MG Oral TabletTAKE 1 TABLET DAILY. DULoxetine HCl - 20 MG Oral Capsule Delayed Release ParticlesTake one daily Gabapentin 400 MG Oral CapsuleTAKE 1 CAPSULE TWICE DAILY. Ipratropium-Albuterol 0.5-2.5 (3) MG/3ML Inhalation SolutionUSE 1 UNIT DOSE IN NEBULIZER EVERY 4 HOURS NEEDED. Lantus SoloStar 100 UNIT/ML Subcutaneous Solution Pen-injectorINJECT 61 UNIT Daily Montelukast Sodium 10 MG Oral TabletTAKE 1 TABLET AT BEDTIME. Omeprazole 40 MG Oral Capsule Delayed ReleaseTAKE 1 CAPSULE Daily Ondansetron 4 MG Oral Tablet Disintegrating1 TAB Q4H PRN OneTouch Delica Plus [id number] OneTouch Ultra 2 w/Device Kit ResponseTap (formerly [employer]Insight)Touch Ultra In Vitro Strip Oz (more content not included)... Normal [employer] Tobacco Screening.on 023 Fall risk assessment a) No falls within the last year [facility] Work Phone: Tobacco use status [facility] b) No [facility] Work Phone: Tobacco Screening. Yes [facility] Work Phone: Provider Note - ED v3on 06-10 Provider Note - ED v3 Provider Note: Chart Review: ED NOTES ED NOTES: CC=ABD PAIN HPI= this 66-year-old female who has chronic pain syndrome is on gabapentin and is seeing pain management for chronic back pains. She was seen June 13 here in the emergency department for abdominal pain with a completely negative work-up also had a work-up for her back pain at that time and was given hydrocodone. She subsequently seen by her primary care physician several days afterwards for constipation and was given what appears to be MiraLAX for her constipation. She called elementary school social worker squad today because she was nauseated and having abdominal pain once again. And with received Zofran intravenously in route which elementary school social worker states helped. When she is placed in the room she immediately was asking for narcotics for pain. I went to see the patient almost immediately and while trying to discern and discuss definitive treatment what her condition was. She states that she has not had a significant bowel movement for at least the last 10 days and that the MiraLAX does not seem to be helping. She states that she has had all the test done and that we are not probably going to find anything. She complains of chronic pain. She has had no fever chills no dysuria hematuria or diarrhea.. While trying to evaluate and discern the patient's condition she continually asked for narcotics and would not elaborate further on her condition or history at this time. At this time she states she could not wait any longer and was going to sign out AGAINST MEDICAL ADVICE. 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) (M47.816) Chronic low back pain with left-sided sciatica, unspecified back pain laterality (724.2,724.3,338.29) (M54.42,G89.29) Cirrhosis of liver (571.5) (K74.60) she thinks sh has fatty liver COPD (chronic obstructive pulmonary disease) (496) (J44.9) Degenerative lumbar spinal stenosis (724.02) (M48.061) Diabetes (250.00) (E11.9) Lumbar radiculopathy, chronic (724.4) (M54.16) Myalgia (729.1) (M79.10) Pain in thoracic spine (724.1) (M54.6) Pain of left lower extremity (729.5) (M79.605) Past Medical History Problems H/O mammogram (V15.89) (Z92.89) [id number] History of Papanicolaou smear (V45.89) (Z98.890) 02/2022- NORMAL. DONE AT [address] [place] [address] History of Influenza vaccination declined (V64.06) (Z28.21) Surgical History Problems History of Colonoscopy 2020- [facility]- NORMAL. REPEAT IN 10 YEARS History of Medial branch block Managed By: Miguel Angelo (Pain Medicine) Bilat L4-S1 MBB History of Oophorectomy [id number]- RIGHT Family History Mother Family history of Aneurysm [id number]- Father Family history of Edema 1970 Brother Family history of malignant neoplasm (V16.9) (Z80.9) 2-3 AUNTS ON PATIENT'S DAD'S SIDE HAD CANCER. PT BOTHER ALSO HAS CANCER (PT NOT SURE WHAT KIND OF CANCER) Patient Name: JANELLE PICKETT : 1955 Gender: Female Printed by , 07/03/2022 09:06:17 Page 6 of 18 Aunt Family history of malignant neoplasm (V16.9) (Z80.9) 2-3 AUNTS ON PATIENT'S DAD'S SIDE HAD CANCER. PT BOTHER ALSO HAS CANCER (PT NOT SURE WHAT KIND OF CANCER) Social History Problems Denies alcohol consumption (V49.89) (Z78.9) Does not use illicit drugs (V49.89) (Z78.9) No advance directives (V49.89) (Z78.9) Smoker (305.1) (F17.200) HISTORY OF PRESENTING ILLNESS JANELLE is a 66 year old Female and was seen by me at 03-Jul-2022 09:03 for a chief complaint of abdominal pain (Brought to ED per LFD squad from home with c/o mid abd pain that radiates to her back for 2-3 weeks. Has been seen here and at [facility] ER in that time for same c/o. She reports nausea as well. 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 Triage Information: Most recent Vital Sign Value Date Temp (F): 97.5 07-03-2022 09:02 Temp (C): 36.3 07-03-2022 09:02 Heart Rate (beats/min): 75 07-03-2022 09:02 Respirations (breaths/min): 18 07-03-2022 09:02 SpO2 (%): 98 07-03-2022 09:02 BP Systolic (mm Hg): 185 07-03-2022 09:02 BP Diastolic (mm Hg): 81 07-03-2022 09:02 PAST MEDICAL HISTORY ALLERGIES/INTOLERANCE S: Allergy Allergen: gemfibrozil Type: Drug Reaction: Other HEALTH HISTORY: Medical History Name:Diabetes Code:E11.9 Name:History of COPD Code:Z87.09 Name:History of cirrhosis Code:Z87.19 Name:History of depression Code:Z86.59 Name:Kidney insufficiency Code:N28.9 OUTPATIENT MEDICATIONS: Home Medications Review Status for Reconciliation: Incomplete Med Status: Incom (more content not included)... Normal [facility] Risk Screen - Adult Emergenc yon 07-03-2022 Risk Screen - Adult Emergency Preferred Language: Preferred Language: Preferred Language for Discussing Health Care (patient/designee)Ap yee Patient Preferred Pharmacy: Patient Preferred Pharmacy Statement: I have reviewed and updated the patient's preferred pharmacy selection for today's visit. Advanced Directives: Advance Directive/DNRno Advance Directive Information Givenpatient/family declined Family Violence Adult: Abuse Screen: Are you or have you been threatened or abused physically, emotionally, or sexually by anyoneno Learning Assessment (Patient): Learning Assessment (Patient): Patient is Able to be Assessed for Learningyes Factors Influencing Readiness to Learninterest in learning Factors that Impact Ability to Learnnone Devices/Methods Used to Communicatenone Learning Preferencesverbal instruction Cultural Considerationsnone Developmental Considerationsnone Pentecostal Considerationsnone Learning Assessment (Other Learner): Learning Assessment (Other Learner): Other learner availableno Pressure Injury/TB/Substance: Pressure Injury: Pressure Injury Present on Admissionno Do you have a coughno Smoking Statusmoderate user (uses 11-30 cig/day, OR 0.5-1.5 ppd, OR 2-3 cans/pouches loose leaf tobacco per week, OR 0.5-1.5 vape pods per day) Tobacco Cessation Education (provide if tobacco use within the last 12 mos) patient declined Alcohol Usedenies Drug Usedenies Admission Risk Screen: Significant IndicatorsComplete CAGE: CAGE: Is this an injured patient at a Trauma Center ([facility]/[place]/[facility]/[place]): no Electronic Signatures: Jessica Luis (RN) (Signed 03-Jul-2022 09:03) Authored: Preferred Language, Patient Preferred Pharmacy, Advanced Directives, Family Violence Adult, Learning Assessment (Patient), Learning Assessment (Other Learner), Pressure Injury/TB/Substance, Pressure Injury, CAGE Last Updated: 03-Jul-2022 09:03 by Jessica Luis (PANDA) Merged With [facility] Triage - EDon 07-03-2022 Triage - ED Quick Triage: The patient and/or guardian verbally acknowledges placement for services into the following (when Urgent Care Service hours are operating):emergency department Chart Review: ARRIVAL INFORMATION Mode of Arrival: ambulance Agency: [facility] Agency Name: [place] CHIEF COMPLAINT JANELLE PICKETT is a Female patient with a chief complaint of abdominal pain (Brought to ED per [employer] squad from home with c/o mid abd pain that radiates to her back for 2-3 weeks. Has been seen here and at [facility] ER in that time for same c/o. She reports nausea as well. EMS gave 4mG Zofran SENIOR PROJECT ENGINEER). Triage Date/Time: 03-Jul-2022 08:57 JOSE: 3 Pain Rating (0-10): 10 = Severe Pain location: mid abd and into back Vital Signs: Temperature: 97.5F ( 36.3C) taken temporal Blood Pressure: 185/81 Mean: Heart Rate: 75 Respiratory Rate: 18 Pulse Oximetry: 98% on room air, no respiratory support. Weight: 218.2 pounds. Calculated 99.0 kg. [place] Coma Scale: Best Eye Response: (E4) spontaneous Best Motor Response: (M6) obeys commands Best Verbal Response: (V5) oriented Michael Score: 15 Cough lasting greater than 3 weeks: no Allergies: no Mask applied: yes Patient has homicidal thoughts: no Symptoms Are POSITIVE For: constipation and nausea. Symptoms Are Negative For: anorexia, diaphoresis, diarrhea, distention, fever, rectal blood and vomiting. Risk Screens Suicide Risk Screen In the Past Month: Have you wished you were or wished you could go to sleep and not wake up no In the Past Month: Have you had any actual thoughts of killing yourself no In Your Lifetime: Have you ever done anything, started to do anything, or prepared to do anything to end your life no Antoine Fall Scale Screening Has the patient fallen before (or is the patient in the ED as a result of a fall) has not had a fall Does the patient have an impaired gait does not have impaired gait Is the patient cognitively impaired not cognitively impaired Interventions: Antoine Fall Interventions: LOW INTERVENTIONS: *patient oriented to surroundings and call system, * patient/family falls education completed and documented, *patients fall status communicated during bedside handoff, *whiteboard updated, *mode of toileting discussed with patient, *bed in low position with brakes locked, *call light in reach, * non-skid footwear TRAVEL HISTORY Travel History Coronavirus Screening: no exposure or symptoms Travel Exposure History: NO travel to International locations in the past 30 days PAIN Pain Scale Used: RADHA Pain Rating (0-10): 10 = Severe Past Medical History: Past Medical History Reviewedyes Electronic Signatures: Keri Gu (PANDA) (Signed 03-Jul-2022 09:05) Entered: Risk Screens, Pain, Travel History, Chart Review, Scores, Past Medical History Authored: Quick Triage, Risk Screens, Pain, Travel History, Chart Review, Scores, Past Medical History Last Updated: 03-Jul-2022 09:05 by Keri Gu (PANDA) Merged With [facility] BILIARY WITH EF W OR W/O CCK on 07-02-2022 BILIARY WITH EF W OR W/O CCK Patient Name: JANELLE PICKETT STUDY: BILIARY WITH EF W OR W/O CCK; 07/02/2022 12:43 pm INDICATION: abdominal pain. COMPARISON: None. ACCESSION NUMBER(S): [id number] ORDERING CLINICIAN: CALLIE MCDONOUGH TECHNIQUE: DIVISION OF NUCLEAR MEDICINE HEPATOBILIARY SCAN (HIDA) The patient received an intravenous dose of 5.0 mCi of Tc-99m mebrofenin (Choletec). Sequential images of the upper abdomen were then acquired over the next 60 minutes. Patient refused further imaging. FINDINGS: There is prompt accumulation of activity within the liver and normal subsequent excretion via the biliary ductal system into the small bowel. There is nonvisualization of the gallbladder IMPRESSION: There is nonvisualization of the gallbladder up to 60 minutes post injection. Patient refused further imaging. Findings raise concern for cystic duct obstruction. However, cannot differentiate between acute or chronic cholecystitis. Patency of the common bile duct. Images were interpreted at [facility]. Electronically signed by: EMELINA DIAZ MD Normal [facility] NM Biliary with EF w/wo CCKo n 07-02-2022 NM Biliary with EF w/wo CCK Normal [facility] Work Phone: CBC AND DIFFERENTIALon 06-13 % AUTOMATED IMMATURE GRAN 0.4 % Normal 0.0 - 0.9 [facility] Comment on above: Result Comment: Mira ture Granulocyte Count (IG) includes promyelocytes, myelocytes and metamyelocytes but does not include bands. Percent differential counts (%) should be interpreted in the context of the absolute cell counts (cells/L). Performed By: #### C BCDF #### [address] [address] Basophils (Bld) [#/Vol] 0.02 10*3/uL Normal 0.00 - 0.10 [facility] Comment on above: Performed By: #### C BCDF #### [address] [address] Basophils/100 WBC (Bld) 0.3 % Normal 0.0 - 2.0 [facility] Comment on above: Performed By: #### C BCDF #### [address] [address] Eosinophils (Bld) [#/Vol] 0.07 10*3/uL Normal 0.00 - 0.70 [facility] Comment on above: Performed By: #### C BCDF #### [address] [address] Eosinophils/100 WBC (Bld) 0.9 % Normal 0.0 - 6.0 [facility] Comment on above: Performed By: #### C BCDF #### [address] [address] Erythrocyte distribution width (RBC) [Ratio] 12.9 % Normal 11.5 - 14.5 [facility] Comment on above: Performed By: #### C BCDF #### [address] [address] Hematocrit (Bld) [Volume fraction] 39.2 % Normal 36.0 - 46.0 [facility] Comment on above: Performed By: #### C BCDF #### [address] [address] Hemoglobin (Bld) [Mass/Vol] 13.3 g/dL Normal 12.0 - 16.0 [facility] Comment on above: Performed By: #### C BCDF #### [address] [address] Lymphocytes (Bld) [#/Vol] 2.25 10*3/uL Normal 1.20 - 4.80 [facility] Comment on above: Performed By: #### C BCDF #### [address] [address] Lymphocytes/100 WBC (Bld) 30.5 % Normal 13.0 - 44.0 [facility] Comment on above: Performed By: #### C BCDF #### [address] [address] MCHC (RBC) [Mass/Vol] 33.9 g/dL Normal 32.0 - 36.0 [facility] Comment on above: Performed By: #### C BCDF #### [address] [address] MCV (RBC) [Entitic vol] 89 fL Normal 80 - 100 [facility] Comment on above: Performed By: #### C BCDF #### [address] [address] Monocytes (Bld) [#/Vol] 0.49 10*3/uL Normal 0.10 - 1.00 [facility] Comment on above: Performed By: #### C BCDF #### [address] [address] Monocytes/100 WBC (Bld) 6.6 % Normal 2.0 - 10.0 [facility] Comment on above: Performed By: #### C BCDF #### [address] [address] Neutrophils (Bld) [#/Vol] 4.51 10*3/uL Normal 1.20 - 7.70 [facility] Comment on above: Result Comment: Perc ent differential counts (%) should be interpreted in the context of the absolute cell counts (cells/L). Performed By: #### C BCDF #### [address] [address] Neutrophils/100 WBC (Bld) 61.3 % Normal 40.0 - 80.0 [facility] Comment on above: Performed By: #### C BCDF #### [address] [address] Platelets (Bld) [#/Vol] 109 10*3/uL Low 150 - 450 [facility] Comment on above: Result Comment: Plat elet count verified by smear review. Performed By: #### C BCDF #### [address] [address] RBC 4.39 x10E12/L Normal 4.00 - 5.20 [facility] Comment on above: Performed By: #### C BCDF #### [address] [address] WBC (Bld) [#/Vol] 7.4 10*3/uL Normal 4.4 - 11.3 [facility] Comment on above: Performed By: #### C BCDF #### [address] [address] COMPREHENSIVE PANELon 2022 Albumin [Mass/Vol] 3.1 g/dL Low 3.4 - 5.0 [facility] Comment on above: Performed By: #### B HB2 #### [address] [address] ALP [Catalytic activity/Vol] 165 U/L High 33 - 136 [facility] Comment on above: Performed By: #### B HB2 #### [address] [address] ALT [Catalytic activity/Vol] 19 U/L Normal 7 - 45 [facility] Comment on above: Result Comment: Stepahny ents treated with Sulfasalazine may generate falsely decreased results for ALT. Performed By: #### B HB2 #### [address] [address] Anion gap [Moles/Vol] 11 mmol/L Normal 10 - 20 [facility] Comment on above: Performed By: #### B HB2 #### [address] [address] AST [Catalytic activity/Vol] 27 U/L Normal 9 - 39 [facility] Comment on above: Result Comment: MILD HEMOLYSIS DETECTED. The result may be falsely elevated due to hemolysis or other interferents. Clinical correlation is recommended. Repeat testing may be considered. Performed By: #### B HB2 #### [address] [address] Bilirubin [Mass/Vol] 0.2 mg/dL Normal 0.0 - 1.2 [facility] Comment on above: Performed By: #### B HB2 #### [address] [address] Calcium [Mass/Vol] 8.2 mg/dL Low 8.6 - 10.3 [facility] Comment on above: Performed By: #### B HB2 #### [address] [address] Chloride [Moles/Vol] 101 mmol/L Normal 98 - 107 [facility] Comment on above: Performed By: #### B HB2 #### [address] [address] Creatinine [Mass/Vol] 1.36 mg/dL High 0.50 - 1.05 [facility] Comment on above: Performed By: #### B HB2 #### [address] [address] GFR/1.73 sq M.predicted among non-blacks MDRD (S/P/Bld) [Vol rate/Area] 43 mL/min/{1.73_m2} Abnormal >90 [facility] Comment on above: Result Comment: CALC ULATIONS OF ESTIMATED GFR ARE PERFORMED USING THE 2020 CKD-EPI STUDY REFIT EQUATION WITHOUT THE RACE VARIABLE FOR THE IDMS-TRACEABLE CREATININE METHODS. https://jasn.asnjournals.org/content//ASN.81346 07960 Performed By: #### B HB2 #### [address] [address] Glucose [Mass/Vol] 230 mg/dL High 74 - 99 [facility] Comment on above: Performed By: #### B HB2 #### [address] [address] HCO3 (Bld) [Moles/Vol] 27 mmol/L Normal 21 - 32 [facility] Comment on above: Performed By: #### B HB2 #### [address] [address] Potassium [Moles/Vol] 3.9 mmol/L Normal 3.5 - 5.3 [facility] Comment on above: Result Comment: MILD HEMOLYSIS DETECTED. The result may be falsely elevated due to hemolysis or other interferents. Clinical correlation is recommended. Repeat testing may be considered. Performed By: #### B HB2 #### [address] [address] Protein [Mass/Vol] 6.1 g/dL Low 6.4 - 8.2 [facility] Comment on above: Performed By: #### B HB2 #### [address] [address] Sodium [Moles/Vol] 135 mmol/L Low 136 - 145 [facility] Comment on above: Performed By: #### B HB2 #### [address] [address] Urea nitrogen [Mass/Vol] 20 mg/dL Normal 6 - 23 [facility] Comment on above: Performed By: #### B HB2 #### [address] [place] [address] CT ABDOMEN AND PELVIS W IV C [facility] 06-13-2022 CT ABDOMEN AND PELVIS W IV CONTRAST STUDY: CT Abdomen and Pelvis with IV Contrast; 06/12/2022 11:13 PM. INDICATION: Epigastric abdominal pain. Lower back pain. Sciatica. Unable to eat due to pain and constipation. COMPARISON: None Available. ACCESSION NUMBER(S): [id number] ORDERING CLINICIAN: RETA BARLOW DO TECHNIQUE: CT of the abdomen and pelvis was performed. Contiguous axial images were obtained at 3 mm slice thickness through the abdomen and pelvis. Coronal and sagittal reconstructions at 3 mm slice thickness were performed. Omnipaque 350 90 mL was administered intravenously. FINDINGS: LOWER CHEST: Cardiac size is upper normal. No pericardial effusion. Lung bases are clear. ABDOMEN: LIVER: No hepatomegaly. Liver demonstrates a cirrhotic morphology with a nodular hepatic contour and hypertrophy of the left hepatic lobe. BILE DUCTS: No intrahepatic or extrahepatic biliary ductal dilatation. GALLBLADDER: The gallbladder is absent. STOMACH: No abnormalities identified. PANCREAS: No masses or ductal dilatation. SPLEEN: Splenule is seen anterior to the spleen. ADRENAL GLANDS: There is a hypodense 1.9 x 1.7 cm nodule in the right adrenal gland. KIDNEYS AND URETERS: Kidneys are normal in size and location. 1 cm simple fluid density cyst is seen in the posterior mid left kidney. No renal or ureteral calculi. PELVIS: BLADDER: No abnormalities identified. REPRODUCTIVE ORGANS: No acute uterine or adnexal pathology is identified. BOWEL: Appendix is not identified and may be absent. Terminal ileum is unremarkable. Minimal diverticulosis is present in the sigmoid colon. VESSELS: No abnormalities identified. There is mild calcified plaque in the abdominal aorta and iliac arteries. PERITONEUM/RETROPERIT ONEUM/LYMPH NODES: No free fluid. No pneumoperitoneum. Borderline enlarged gastrohepatic lymph nodes are seen measuring up to 1.1 cm in short axis, nonspecific. ABDOMINAL WALL: No abnormalities identified. SOFT TISSUES: No abnormalities identified. BONES: No acute fracture or aggressive osseous lesion. IMPRESSION: No definite acute intra-abdominal pathology identified. Borderline enlarged gastrohepatic lymph nodes, nonspecific. Consider either follow-up abdominal CT in 3 months or PET/CT for further evaluation if there is clinical concern for malignancy. Cirrhosis. Hypodense 1.9 x 1.7 cm right adrenal nodule, likely lipid poor adenoma but incompletely characterized on this exam. Nonemergent dedicated adrenal protocol CT is recommended for further evaluation. Signed by Rachel Gentile Electronically signed by: RACHEL GENTILE MD Normal [facility] LACTATEon 06-13-2022 Lactate [Moles/Vol] 1.8 mmol/L Normal 0.4 - 2.0 [facility] Comment on above: Result Comment: Funmi puncture immediately after or during the administration of Metamizole may lead to falsely low results. Testing should be performed immediately prior to Metamizole dosing. Performed By: #### L ACT #### [address] [address] LIPASEon 06-13-2022 Lipase [Catalytic activity/Vol] 52 U/L Normal 9 - 82 [facility] Comment on above: Result Comment: Funmi puncture immediately after or during the administration of Metamizole may lead to falsely low results. Testing should be performed immediately prior to Metamizole dosing. I-tyyquu-b-benzoquinone imine (metabolite of Acetaminophen) will generate erroneously low results in samples for patients that have taken toxic doses of acetaminophen. Performed By: #### B HB2 #### [address] [address] TROPONIN I, HIGH SENSITIVITY on 06-13-2022 TROPONIN I, HIGH SENSITIVITY 7 ng/L Normal 0 - 13 [facility] Comment on above: Result Comment: . Less than 99th percentile of normal range cutoff- Female and children under 18 years old <14 ng/L; Male <21 ng/L: Negative Repeat testing should be performed if clinically indicated. . Female and children under 18 years old 14-50 ng/L; Male 21-50 ng/L: Consistent with possible cardiac damage and possible increased clinical risk. Serial measurements may help to assess extent of myocardial damage. . >50 ng/L: Consistent with cardiac damage, increased clinical risk and myocardial infarction. Serial measurements may help assess extent of myocardial damage. . NOTE: Children less than 1 year old may have higher baseline troponin levels and results should be interpreted in conjunction with the overall clinical context. . NOTE: Troponin I testing is performed using a different testing methodology at [facility] than at other [place] [facility]. Direct result comparisons should only be made within the same method. Performed By: #### T [facility] #### [place] [address] TROPONIN I, HIGH SENSITIVITY 7 ng/L Normal 0 - 13 [facility] Comment on above: Result Comment: . Less than 99th percentile of normal range cutoff- Female and children under 18 years old <14 ng/L; Male <21 ng/L: Negative Repeat testing should be performed if clinically indicated. . Female and children under 18 years old 14-50 ng/L; Male 21-50 ng/L: Consistent with possible cardiac damage and possible increased clinical risk. Serial measurements may help to assess extent of myocardial damage. . >50 ng/L: Consistent with cardiac damage, increased clinical risk and myocardial infarction. Serial measurements may help assess extent of myocardial damage. . NOTE: Children less than 1 year old may have higher baseline troponin levels and results should be interpreted in conjunction with the overall clinical context. . NOTE: Troponin I testing is performed using a different testing methodology at [facility] than at other [place] [facility]. Direct result comparisons should only be made within the same method. Performed By: #### B HB2 #### [place] [address] UA MICROSCOPICon 06-13-2022 Mucus Ql (Urine sed) 1+ /LPF Normal [facility] Comment on above: Performed By: #### B HB2 #### [place] [address] RBC 30 /HPF Abnormal 0-5 [facility] Comment on above: Performed By: #### B HB2 #### [place] [address] SQUAMOUS EPITH. CELLS 10 /HPF Normal [facility] Comment on above: Performed By: #### B HB2 #### [place] [address] WBC 4 /HPF Normal 0-5 [facility] Comment on above: Performed By: #### B HB2 #### [place] [id number] CT Abdomen and Pelvis with I V Contraston 06-12-2022 CT Abdomen and Pelvis W contrast IV Normal AA-Vclunon-[employer] Work Phone: Complete Blood Count + Diffe rentialon 06-12-2022 Basophils/100 WBC (Bld) 0.3 % 0.0 - 2.0 XG-Ihwuxbs-[employer] Work Phone: Erythrocyte distribution width (RBC) [Ratio] 12.9 % See Below [employer] Work Phone: Comment on above: Reference Range: 11. 5 - 14.5 Hematocrit (Bld) [Volume fraction] 39.2 % See Below [employer] Work Phone: Comment on above: Reference Range: 36. 0 - 46.0 Hemoglobin (Bld) [Mass/Vol] 13.3 g/dL See Below [employer] Work Phone: Comment on above: Reference Range: 12. 0 - 16.0 Lymphocytes/100 WBC (Bld) 30.5 % See Below [employer] Work Phone: Comment on above: Reference Range: 13. 0 - 44.0 MCHC (RBC) [Mass/Vol] 33.9 g/dL See Below [employer] Work Phone: Comment on above: Reference Range: 32. 0 - 36.0 MCV (RBC) [Entitic vol] 89 fL 80 - 100 VL-Qyfpwhk-OsbFastclick Work Phone: Monocytes/100 WBC (Bld) 6.6 % 2.0 - 10.0 FI-Tmgbdlf-VduFastclick Work Phone: Neutrophils/100 WBC (Bld) 61.3 % See Below [employer] Work Phone: Comment on above: Reference Range: 40. 0 - 80.0 Platelets (Bld) [#/Vol] 109 10*3/uL below low threshold 150 - 450 [employer] Work Phone: Comment on above: Platelet count verif ied by smear review. RBC (Bld) [#/Vol] 4.39 {x10E12/L} See Below [employer] Work Phone: Comment on above: Reference Range: 4.0 0 - 5.20 WBC (Bld) [#/Vol] 7.4 10*3/uL 4.4 - 11.3 -Uro logy-R[employer] Work Phone: Complete Blood Count + Differential 0.02 {x10E9/L} See Below ZT-Sronvbk-Ncc land Work Phone: Comment on above: Reference Range: 0.0 0 - 0.10 Complete Blood Count + Differential 0.07 {x10E9/L} See Below UM-Jgpeowu-Zgr land Work Phone: Comment on above: Reference Range: 0.0 0 - 0.70 Complete Blood Count + Differential 0.49 {x10E9/L} See Below [employer] Work Phone: Comment on above: Reference Range: 0.1 0 - 1.00 Complete Blood Count + Differential 2.25 {x10E9/L} See Below [employer] Work Phone: Comment on above: Reference Range: 1.2 0 - 4.80 Complete Blood Count + Differential 4.51 {x10E9/L} See Below [employer] Work Phone: Comment on above: Reference Range: 1.2 0 - 7.70 Percent differential counts (%) should be interpreted in the context of the absolute cell counts (cells/L). Complete Blood Count + Differential 0.9 % 0.0 - 6.0 [employer] Work Phone: Complete Blood Count + Differential 0.4 % 0.0 - 0.9 [employer] Phone: Comment on above: Immature Granulocyte Count (IG) includes promyelocytes, myelocytes and metamyelocytes but does not include bands. Percent differential counts (%) should be interpreted in the context of the absolute cell counts (cells/L). Laboratory - Chemistry and C hemistry - challengeon 06-12-2022 Albumin BCP dye [Mass/Vol] 3.1 g/dL below low threshold 3.4 - 5.0 [employer] Work Phone: ALP [Catalytic activity/Vol] 165 U/L above high threshold 33 - 136 JO-Vhzcoam-Tct land Work Phone: ALT With P-5'-P [Catalytic activity/Vol] 19 U/L 7 - 45 HA-Aowgtfh-Wzd land Work Phone: Comment on above: Patients treated wit h Sulfasalazine may generate falsely decreased results for ALT. Anion gap [Moles/Vol] 11 mmol/L 10 - 20 - [employer] Work Phone: AST With P-5'-P [Catalytic activity/Vol] 27 U/L 9 - 39 YX-Yyauirp-EdrNexalin Technology Work Phone: Comment on above: MILD HEMOLYSIS DETEC CLAIRE. The result may be falsely elevated due tohemolysis or other interferents. Clinical correlation is recommended.Repeat testing may be considered. Bilirubin [Mass/Vol] 0.2 mg/dL 0.0 - 1.2 MP-[employer] Work Phone: Calcium [Mass/Vol] 8.2 mg/dL below low threshold 8.6 - 10.3 JX-Qzbybtz-IpjNexalin [employer] Work Phone: Chloride [Moles/Vol] 101 mmol/L 98 - 107 MP[employer] Work Phone: CO2 [Moles/Vol] 27 mmol/L 21 - 32 -[employer] [facility] Work Phone: Creatinine [Mass/Vol] 1.36 mg/dL above high threshold See Below JW-Ywbrgev-WetNexalin Technology Work Phone: Comment on above: Reference Range: 0.5 0 - 1.05 Glucose [Mass/Vol] 230 mg/dL above high threshold 74 - 99 SX-Jsjmzdb-TpvNexalin Technology Work Phone: Potassium [Moles/Vol] 3.9 mmol/L 3.5 - 5.3 - [employer] Work Phone: Comment on above: MILD HEMOLYSIS DETEC CLAIRE. The result may be falsely elevated due tohemolysis or other interferents. Clinical correlation is recommended.Repeat testing may be considered. Protein [Mass/Vol] 6.1 g/dL below low threshold 6.4 - 8.2 SE-Jtlbyop-Xiv land Work Phone: Sodium [Moles/Vol] 135 mmol/L below low threshold 136 - 145 KT-Ylwczdz-Wck land Work Phone: Urea nitrogen [Mass/Vol] 20 mg/dL 6 - 23 YM-Jlfbeor-Nza land Work Phone: Lactate, Levelon 06-12-2022 Lactate [Moles/Vol] 1.8 mmol/L 0.4 - 2.0 MP-Ur ology-R[employer] Work Phone: Comment on above: Venipuncture immedia tely after or during the administration of Metamizole may lead to falsely low results. Testing should be performed immediately prior to Metamizole dosing. Lipase, Serumon 06-12-2022 Lipase [Catalytic activity/Vol] 52 U/L 9 - 82 PS-Rjjpavl-Udh land Work Phone: Comment on above: Venipuncture immedia tely after or during the administration of Metamizole may lead to falsely low results. Testing should be performed immediately prior to Metamizole dosing. L-oixzft-a-benzoquinone imine (metabolite of Acetaminophen) will generate erroneously low results in samples for patients that have taken toxic doses of acetaminophen. No Panel Informationon 06-12 43 {mL/min/1.73m2} Abnormal >90 MP-[facility]ro [facility] Work Phone: Comment on above: CALCULATIONS OF ROXANN MATED GFR ARE PERFORMED USING THE 2020 CKD-EPI STUDY REFIT EQUATION WITHOUT THE RACE VARIABLE FOR THE IDMS-TRACEABLE CREATININE METHODS.https://jasn.asnjournals.org/content//A .8508874139 Provider Note - ED v3on Provider Note - ED v3 Provider Note: Chart Review: ED NOTES ED NOTES: Source of Information: Patient. EMR was reviewed for previous records. HPI: Multiple complaints. There is a 66-year-old white female states that she has been experiencing back pain with radicular symptoms shooting down her left lower extremity. She states that she has been seen and evaluated in the past with an MRI of her lumbar spine for similar symptoms. She states the pain has gotten worse to the point where she just cannot take it. Patient also states that she also has had diffuse upper quadrant abdominal pain for the past 3 days with associated nausea and vomiting. She states that she just cannot eat because of her symptoms. She denies any change in her bowel habits. She states that attempts at eating or drinking makes her symptoms worse, bowel rest helps to some extent. She states that any type of activity makes her back pain and radicular symptoms worse. Patient denies any urinary symptoms, fevers or chills. PMH: Morbid obesity, renal insufficiency, type 2 diabetes, depression, cirrhosis, COPD, hypertension, back pain with sciatica PSH: Bilateral oophorectomy Social Hx: The patient denies any use of alcohol or illicit drugs. Patient smokes 0.5 ppd. Fam: MEDS: Noted in the EMR. ALLERGIES: NKDA PHYSICAL EXAM: General: Patient alert, awake, oriented X3, appears to be in no obvious distress, nontoxic, cooperative, obese Skin: Warm. Dry. Intact. No rash. Eyes: PEARTLA, EOMIs intact, sclera white, conjunctiva clear HEENT: Atraumatic. Normo-cephalic. Oral and nasal mucosa pink and moist. Neck: Supple without meningismus, no lymphadenopathy. CV: Regular rate and rhythm without murmurs, heaves, lifts or thrills. Respiratory: Nonlabored breathing. There are no retractions or tachypnea. Lungs are clear to auscultation bilaterally. GI: Patient's abdomen is protuberant with tenderness in the upper quadrants bilaterally with voluntary guarding there is no rebound or rigidity. The patient has normal bowel sounds present all 4 quadrants. There is no CVA tenderness bilaterally. There is no pulsatile masses. MUSC: There is no joint swelling or bony tenderness on exam. Neuro: Cranial nerves II - XII grossly intact. No focal neurologic deficits are noted on exam. Lower extremities: There is no peripheral edema bilaterally, negative Homans sign. No palpable cords. Distal pulses are +2/4 and present in both lower extremities. Psych: Maintains eye contact. Cooperative. ED course: EKG was interpreted by myself at 2112 reveals normal sinus rhythm 77 bpm with no acute ST or T wave changes. The OH interval is 146 ms. The QRS duration 62 ms. The QTc is 452 ms axis is 20 degrees. Patient was seen and evaluated due to 2 primary complaints morning was left-sided low back pain with radicular symptoms in the second was diffuse abdominal pain with associated nausea. Patient has previously been seen and evaluated for her back pain and has had an MRI performed and in November 2021. Patient's MRI really did not reveal any acute abnormality or concerning she denied any signs or symptoms concerning for cauda equina. I also did work-up her abdominal pain complaints and due to the fact that there were no higher quadrants we also performed a cardiac work-up. Patient EKG and troponin were negative. Lab work was essentially unremarkable except for patient's urinalysis did have hematuria. CT scan imaging revealed abdominal lymphadenopathy and a adrenal nodule that the radiologist recommended further work-up with. The CT scan of the abdomen soft did not reveal any obvious cause of patient's abdominal pain. Patient does see pain management and was requesting narcotic pain medication for her abdominal pain complaints. I did perform an OARRS report which revealed primarily gabapentin prescriptions for her discomfort and she was discharged home with a prescription to her pharmacy she was referred back to her primary care doctor for follow-up and provided the name of a urologist to follow-up with concerning her hematuria is recommended that she had further evaluation of her due to adrenal nodule further evaluation of her abdominal lymphadenopathy with a CT scan in 3 months. This chart was dictated with the use of [employer] software within the framework of the current electronic medical (more content not included)... Normal [facility] Risk Screen - Adult Emergenc yon 06-12-2022 Risk Screen - Adult Emergency Preferred Language: Preferred Language: Preferred Language for Discussing Health Care (patient/designee)Ap yee Patient Preferred Pharmacy: Patient Preferred Pharmacy Statement: I have reviewed and updated the patient's preferred pharmacy selection for today's visit. Advanced Directives: Advance Directive/DNRno Family Violence Adult: Abuse Screen: Are you or have you been threatened or abused physically, emotionally, or sexually by anyoneno Learning Assessment (Patient): Learning Assessment (Patient): Patient is Able to be Assessed for Learningyes Factors Influencing Readiness to Learninterest in learning Factors that Impact Ability to Learnnone Devices/Methods Used to Communicatenone Learning Preferencesaudio Cultural Considerationsnone Developmental Considerationsnone Pentecostal Considerationsnone Learning Assessment (Other Learner): Learning Assessment (Other Learner): Other learner availableno Pressure Injury/TB/Substance: Pressure Injury: Pressure Injury Present on Admissionno Do you have a coughno Smoking Statuslight user (uses <10 cig/day, OR <0.5 ppd, OR 1 can/pouch loose leaf tobacco per week, OR <0.5 vape pods per day) (1) Tobacco Cessation Education (provide if tobacco use within the last 12 mos) patient declined Alcohol Usedenies(1) Drug Usedenies (1) Admission Risk Screen: Significant IndicatorsComplete CAGE: CAGE: Is this an injured patient at a Trauma Center ([facility]/[place]/[facility]/[place]): no Electronic Signatures: Gail Mayes (PANDA) (Signed 12-Jun-2022 21:58) Authored: Preferred Language, Patient Preferred Pharmacy, Advanced Directives, Family Violence Adult, Learning Assessment (Patient), Learning Assessment (Other Learner), Pressure Injury/TB/Substance, Pressure Injury, CAGE Last Updated: 12-Jun-2022 21:58 by Gail Mayes (PANDA) References: 1. Data Referenced From Provider Note - ED v3 12-Jun-2022 21:06 Normal [facility] TROPONIN I, HIGH SENSITIVITY on 06-12-2022 Tropinin I.cardiac panel High sensitivity method 7 ng/L 0 - 13 XS-Lisqndi-Yqt [employer] Work Phone: Comment on above: .Less than 99th perc entile of normal range cutoff-Female and children under 18 years old <14 ng/L; Male <21 ng/L: NegativeRepeat testing should be performed if clinically indicated. .Female and children under 18 years old 14-50 ng/L; Male 21-50 ng/L:Consistent with possible cardiac damage and possible increased clinical risk. Serial measurements may help to assess extent of myocardial damage. .>50 ng/L: Consistent with cardiac damage, increased clinical risk andmyocardial infarction. Serial measurements may help assess extent of myocardial damage. . NOTE: Children less than 1 year old may have higher baseline troponin levels and results should be interpreted in conjunction with the overall clinical context. .NOTE: Troponin I testing is performed using a different testing methodology at [facility] than at other [facility]. Direct result comparisons should only be made within the same method. Tropinin I.cardiac panel High sensitivity method 7 ng/L 0 - 13 KC-Dmwabod-Fvr [facility] Work Phone: Comment on above: .Less than 99th perc entile of normal range cutoff-Female and children under 18 years old <14 ng/L; Male <21 ng/L: NegativeRepeat testing should be performed if clinically indicated. .Female and children under 18 years old 14-50 ng/L; Male 21-50 ng/L:Consistent with possible cardiac damage and possible increased clinical risk. Serial measurements may help to assess extent of myocardial damage. .>50 ng/L: Consistent with cardiac damage, increased clinical risk andmyocardial infarction. Serial measurements may help assess extent of myocardial damage. . NOTE: Children less than 1 year old may have higher baseline troponin levels and results should be interpreted in conjunction with the overall clinical context. .NOTE: Troponin I testing is performed using a different testing methodology at [facility] than at other [place] [facility]. Direct result comparisons should only be made within the same method. Triage - EDon 06-12-2022 Triage - ED Quick Triage: The patient and/or guardian verbally acknowledges placement for services into the following (when Urgent Care Service hours are operating):emergency department Risk Screens: Chart Review: ARRIVAL INFORMATION Mode of Arrival: private vehicle CHIEF COMPLAINT JANELLE PICKETT is a Female patient with a chief complaint of back pain (pt states that she has been having lower back pain for months with pain going down her left leg down into her ankle. Pt states that she has seen several doctors and no one can fix it. Difficulty with standing and walking. pt also states that she has not been able to eat due to the pain, and is now having epigastric pain. pt states that she is currently constipated). Triage Date/Time: 12-Jun-2022 20:49 JOSE: 4 Pain Rating (0-10): 10 = Severe Pain location: left lower back to left leg and ankle Vital Signs: Temperature: 97.6F ( 36.4C) taken temporal Blood Pressure: 149/62 Mean: Heart Rate: 85 Respiratory Rate: 20 Pulse Oximetry: 98% on room air, no respiratory support. Height: 5 feet 1.00 inches. 154.9 CM Weight: 219.3 pounds. Calculated 99.5 kg. (stated) Calculated BMI (kg/m2): 41.468 Calculated BSA (m2) 2.07 Michael Coma Scale: Best Eye Response: (E4) spontaneous Best Motor Response: (M6) obeys commands Best Verbal Response: (V5) oriented Michael Score: 15 Cough lasting greater than 3 weeks: no Allergies: yes Mask applied: yes Patient has homicidal thoughts: no Symptoms Are Negative For: bruising, difficulty bending, difficulty walking, flank pain, headache, hematuria, muscle cramps, neck pain, numbness and tingling. Risk Screens Suicide Risk Screen In the Past Month: Have you wished you were or wished you could go to sleep and not wake up no In the Past Month: Have you had any actual thoughts of killing yourself no In Your Lifetime: Have you ever done anything, started to do anything, or prepared to do anything to end your life no Interventions: Antoine Fall Interventions: LOW INTERVENTIONS: *patient oriented to surroundings and call system, * patient/family falls education completed and documented, *patients fall status communicated during bedside handoff, *whiteboard updated, *mode of toileting discussed with patient, *bed in low position with brakes locked, *call light in reach, * non-skid footwear TRAVEL HISTORY Travel History Coronavirus Screening: no exposure or symptoms Travel Exposure History: NO travel to International locations in the past 30 days PAIN Pain Scale Used: RADHA Pain Rating (0-10): 10 = Severe Past Medical History: Past Medical History Reviewedyes Electronic Signatures: Adriana Danielle (PANDA) (Signed 12-Jun-2022 20:57) Authored: Quick Triage, Risk Screens, Chart Review Kane Ventura (EMT-P) (Signed 12-Jun-2022 20:55) Entered: Risk Screens, Pain, Travel History, Chart Review, Scores, Past Medical History Authored: Quick Triage, Risk Screens, Pain, Travel History, Chart Review, Scores, Past Medical History Last Updated: 12-Jun-2022 20:57 by Adriana Danielle (RN) Merged With [facility] URINALYSIS WITH CULTURE IF I NDICATEDon 06-12-2022 Appearance (U) HAZY Normal CLEAR [facility] Comment on above: Performed By: #### U ARFX ####[place] [address] Bilirubin Ql (U) MODERATE(2+) Abnormal NEGATIVE [facility] Comment on above: Performed By: #### U ARFX ####[place] [address] Color (U) Yellow Normal STRAW,YELLOW [facility] Comment on above: Performed By: #### U ARFX ####[place] [address] Glucose Ql (U) Negative Normal NEGATIVE [facility] Comment on above: Performed By: #### U ARFX ####[place] [address] Hemoglobin Ql (U) SMALL(1+) Abnormal NEGATIVE [facility] Comment on above: Performed By: #### U ARFX ####[place] [address] Ketones Ql (U) 5(TRACE) Abnormal NEGATIVE [facility] Comment on above: Performed By: #### U ARFX ####[place] [address] Leukocyte esterase Test strip Ql (U) Negative Normal NEGATIVE [facility] Comment on above: Performed By: #### U ARFX ####[place] [address] Nitrite Ql (U) Negative Normal NEGATIVE [facility] Comment on above: Performed By: #### U ARFX ####[place] [address] pH (U) 5.0 [pH] Normal 5.0 - 8.0 [facility] Comment on above: Performed By: #### U ARFX ####[place] [address] Protein Ql (U) >=500(3+) Abnormal NEGATIVE [facility] Comment on above: Performed By: #### U ARFX ####[place] [address] Specific gravity (U) [Rel density] 1.035 Normal 1.005 - 1.035 [facility] Comment on above: Performed By: #### U ARFX ####[place] [address] Urobilinogen (U) [Mass/Vol] 2.0 mg/dL High 0.0 - 1.9 [facility] Comment on above: Result Comment: Due to a manufacturing issue, low positive urobilinogen results may be falsely positive. Correlate with urine bilirubin and additional clinical/laboratory findings to assess the risk of hemolytic anemia or liver disease. If clinically indicated, repeat testing with an alternate method is available by contacting the laboratory within 24 hours. . Some pigments and medications may cause a false positive urobilinogen. Performed By: #### U ARFX ####[place] [address] Lab Specimen Source Normal [facility] Comment on above: Performed By: #### U ARFX ####[place] [address] Performed By: #### B HB2 #### [place] [id number] Color (U) Yellow See Below [employer] Work Phone: Comment on above: SOURCE: Reference Ra nge: STRAW,YELLOW Glucose Ql (U) Negative NEGATIVE [facility] Work Phone: Ketones Ql (U) 5(TRACE) Abnormal NEGATIVE [employer] [facility] Work Phone: Leukocyte esterase Test strip Ql (U) Negative NEGATIVE QN-Ptcymza-Zus land Work Phone: pH (U) 5.0 [pH] 5.0 - 8.0 RG-Ikzyuqi-Hir [facility] Work Phone: Protein (U) [Mass/Vol] >=500(3+) Abnormal NEGATIVE [employer] [facility] [facility] Work Phone: RBC (U) [#/Vol] SMALL(1+) Abnormal NEGATIVE MP[facility] y[facility] Work Phone: Specific gravity (U) [Rel density] 1.035 1 See Below XC-Xfjtteg-Vpf [facility] Work Phone: Comment on above: Reference Range: 1.0 05 - 1.035 URINALYSIS WITH CULTURE IF INDICATED Negative NEGATIVE [facility] Work Phone: URINALYSIS WITH CULTURE IF INDICATED 2.0 mg/dL above high threshold 0.0 - 1.9 OM-Yubljqq-Tav [facility] Work Phone: Comment on above: Due to a manufacturi ng issue, low positive urobilinogen results may be falsely positive. Correlate with urine bilirubin and additional clinical/laboratory findings to assess the risk of hemolytic anemia or liver disease. If clinically indicated, repeat testing with an alternate method is available by contacting the laboratory within 24 hours..Some pigments and medications may cause a false positive urobilinogen. URINALYSIS WITH CULTURE IF INDICATED MODERATE(2+) Abnormal NEGATIVE [facility] [employer] Phone: URINALYSIS WITH CULTURE IF INDICATED HAZY CLEAR [employer] Phone: Urinalysis, Microscopicon Urinalysis, Microscopic 1+ ZD-Fompkll-Uci [facility] Work Phone: Urinalysis, Microscopic 10 {/HPF} CB-Cvevktk-Bhn land Work Phone: Urinalysis, Microscopic 30 {/HPF} Abnormal 0-5 XS-Oubitbn-Ykj land Work Phone: Urinalysis, Microscopic 4 {/HPF} 0-5 JQ-Ngmungv-Vbb land Work Phone: Comment on above: SOURCE: Established Visit (Orthopaed ic Surgery)on 04-28-2022 Established Visit (Orthopaedic Surgery) Diagnoses/Problems Assessed Primary osteoarthritis of left knee (715.16) (M17.12) *Orders Primary osteoarthritis of left knee Administered: Triamcinolone Acetonide 40 MG/ML Injection Suspension Physical Therapy - General Referral Evaluation and Treatment Evaluate AND Treat Status: Active Requested for: 28Apr2022 AMA Intake Activity Log Entry by [facility] (INTRANET) on 2022-04-28 09:40 Status Change : Confirmed - SMN Module Primary osteoarthritis of left knee (715.16) (M17.12) Patient Discussion/Summary We reviewed symptom control with topical diclofenac gel, Tylenol per package directions. Patient advised to use NSAIDs sparingly. Patient was instructed to closely monitor blood sugars over the next 10 to 14 days. Cortisone injection was offered today for symptom relief, patient tolerated well. We did review use of the knee brace and continuing home exercises. Patient declines offer of formal PT. Plan will be to have patient follow here on a as needed basis. She is agreeable with this plan of care. This note was generated using [employer]iv[employer] software. It may contain errors in wording, punctuation or spelling. Provider Impressions Flare of left knee pain/OA, multiple falls since last visit. Chief Complaint PATIENT PRESENTS TO OFFICE FOR : F/U OF LEFT KNEE PAIN ONSET: 04/01/22 DOI / DOS: HAS FALLEN SEVERAL TIMES IN PAST FEW WEEKS THE LAST TIME BEING ON 04/24/22 IMPROVED: NO PAIN: 01/18 PAIN MEDS TAKEN: ADVIL ROM: PAINFUL TO BEND ICE / HEAT APPLIED: BOTH BRACE WORN: NO LAST INJECTION: NA REFERRAL: NA . History of Present Illness L knee pain, hurts bad, taking Advil without relief. Worse x 2 weeks. Denies new injury. Pain mgmt this am- went there on accident. No current tx. Later in visit reports 2 falls since ED visit in March,. [facility] referred here. Declines XR today for further eval, requesting pain meds. Review of Systems Constitutional: no fever, no chills and not feeling tired. ENT: no recent cough or URI sx, no nosebleeds. Cardiovascular: no chest pain. Respiratory: no shortness of breath and no cough. Gastrointestinal: no abdominal pain, no nausea, no vomiting and no diarrhea. Integumentary: no rashes or skin wounds. Neurological: no headache. Psychiatric: no depression and no sleep disturbances. Endocrine: no muscle weakness and no muscle cramps. Hematologic/Lymphatic : no swollen glands and no tendency for easy bruising. All other systems have been reviewed and are negative other than noted in HPI. Active Problems Problems Acute pain of left knee (719.46) (M25.562) Arthritis of facet joint of lumbar spine (721.90) (M47.816) Chronic low back pain with left-sided sciatica, unspecified back pain laterality (724.2,724.3,338.29) (M54.42,G89.29) Cirrhosis of liver (571.5) (K74.60) she thinks sh has fatty liver Class 3 severe obesity due to excess calories with serious comorbidity and body mass index (BMI) of 40.0 to 44.9 in adult (278.01,V85.41) (E66.01,Z68.41) COPD (chronic obstructive pulmonary disease) (496) (J44.9) Degenerative lumbar spinal stenosis (724.02) (M48.061) Depression, major, single episode, mild (296.21) (F32.0) Diabetes (250.00) (E11.9) Diabetes mellitus with stage 3 chronic kidney disease (250.40,585.3) (E11.22,N18.30) Lumbar radiculopathy, chronic (724.4) (M54.16) Medication management (V58.69) (Z79.899) Myalgia (729.1) (M79.10) Pain in thoracic spine (724.1) (M54.6) Pain of left lower extremity (729.5) (M79.605) Type 2 diabetes mellitus with hyperglycemia, with long-term current use of insulin (250.00,790.29,V58.67 ) (E11.65,Z79.4) Past Medical History Problems H/O mammogram (V15.89) (Z92.89) [id number] History of Papanicolaou smear (V45.89) (Z98.890) 02/2022- NORMAL. DONE AT [address] [place] [address] History of Influenza vaccination declined (V64.06) (Z28.21) Surgical History Problems History of Colonoscopy 2020- [facility]- NORMAL. REPEAT IN 10 YEARS History of Medial branch block Managed By: Miguel Angelo (Pain Medicine) Bilat L4-S1 MBB History of Oophorectomy [id number]- RIGHT Family History Mother Family history of Aneurysm [id number]- Father Family history of Edema 1970 Brother Family history of malignant neoplasm (V16.9) (Z80.9) 2-3 AUNTS ON PATIENT'S DAD'S SIDE HAD CANCER. PT BOTHER ALSO HAS CANCER (PT NOT SURE WHAT KIND OF CANCER) Aunt Family history of malignant neoplasm (V16.9) (Z80.9) 2-3 AUNTS ON PATIENT'S DAD'S SIDE HAD CANCER. PT BOTHER ALSO HAS CANCER (PT NOT SURE WHAT KIND OF CANCER) Social History Problems Denies alcohol consumption (V49.89) (Z78.9) Does not use illicit drugs (V49.89) (Z78.9) No advance directives (V49.89) (Z78.9) Smoker (305.1) (F17.200) Allergies Medication No Known Drug Allergies Recorded By: Tito Reilly; 09/10/2021 10:28:40 AM Current Meds Medication NameInstructio (more content not included)... Normal [employer] Tobacco Screening.on 023 Fall risk assessment b) One or more fall s in the last year [facility] 300 Work Phone: Tobacco use status [facility] a) Yes [facility] 300 Work Phone: Tobacco Screening. Yes [facility] 300 Work Phone: Laboratory - Chemistry and C hemistry - challengeon 04-22-2022 Creatinine (Body fld) [Mass/Vol] 153.6 mg/dL [facility] Work Phone: Comment on above: A urine creatinine r esult >= 20 mg/dL is considered valid without suspicion of dilution. Samples with results below this range will automatically reflex to specific gravity testing to verify specimen integrity. Laboratory - Drug toxicology on 04-22-2022 1-Hydroxymidazolam Confirm (U) [Mass/Vol] <25 Cutoff <25 [facility] Work Phone: 8-Xmgaclyhac-3,5-Dimet hyl-3,3-Diphenylpyrrol idine (EDDP) Confirm (U) [Mass/Vol] <25 Cutoff <25 [facility] Work Phone: Comment on above: The performance flor acteristics of the Methadone Confirmation, Urine has been validated by the individual laboratory site where testing is performed. It has not been cleared or approved by the FDA. However the FDA has determined that such clearance or approval is not necessary. Our Laboratory is certified under the Clinical Laboratory Improvement Amendments of 1988 (CLIA) as qualified to perform high complexity clinical laboratory testing. 6-Monoacetylmorphine (6-HARIKA) Confirm (U) [Mass/Vol] <25 Cutoff <25 [facility] Work Phone: 7-Aminoclonazepam Confirm (U) [Mass/Vol] <25 Cutoff <25 [facility] Work Phone: Alpha hydroxyalprazolam Confirm (U) [Mass/Vol] <25 Cutoff <25 [facility] Work Phone: ALPRAZolam Confirm (U) [Mass/Vol] <25 Cutoff <25 [facility] Work Phone: Amphetamines Screen Ql (U) Negative NEGATIVE [facility] Work Phone: Comment on above: CUTOFF LEVEL: 500 NG /ML Cross-reactivity has been reported with high concentrations of the following drugs: buproprion, chloroquine, chlorpromazine, ephedrine, mephentermine, fenfluramine, phentermine, phenylpropanolamine, pseudoephedrine, and propranolol. Barbiturates Screen Ql (U) Negative NEGATIVE [facility] Work Phone: Comment on above: CUTOFF LEVEL: 200 NG /ML Benzoylecgonine Screen Ql (U) Negative NEGATIVE [facility] Work Phone: Comment on above: CUTOFF LEVEL: 150 NG /ML Cannabinoids Screen Ql (U) Negative NEGATIVE [facility] Work Phone: Comment on above: CUTOFF LEVEL: 50 NG/ ML chlordiazePOXIDE Confirm (U) [Mass/Vol] <25 Cutoff <25 [facility] Work Phone: clonazePAM Confirm (U) [Mass/Vol] <25 Cutoff <25 [facility] Work Phone: Codeine Confirm (U) [Mass/Vol] <50 Cutoff <50 [facility] Work Phone: diazePAM Confirm (U) [Mass/Vol] <25 Cutoff <25 [facility] Work Phone: fentaNYL Confirm (U) [Mass/Vol] <2.5 Cutoff<2.5 [facility] Work Phone: HYDROcodone Confirm (U) [Mass/Vol] <25 Cutoff <25 [facility] Work Phone: HYDROmorphone Confirm (U) [Mass/Vol] <25 Cutoff <25 -[facility] Work Phone: LORazepam Confirm (U) [Mass/Vol] <25 Cutoff <25 [facility] Work Phone: Methadone Confirm (U) [Mass/Vol] <25 Cutoff <25 [facility] Work Phone: Midazolam Confirm (U) [Mass/Vol] <25 Cutoff <25 -[facility] Work Phone: Morphine Confirm (U) [Mass/Vol] <50 Cutoff <50 -[facility] Work Phone: Nordiazepam Confirm (U) [Mass/Vol] <25 Cutoff <25 [facility] Work Phone: Norfentanyl Confirm (U) [Mass/Vol] <2.5 Cutoff<2.5 [facility] Work Phone: Comment on above: The performance flor acteristics of the Fentanyl Confirmation, Urine has been validated by the individual laboratory site where testing is performed. It has not been cleared or approved by the FDA. However the FDA has determined that such clearance or approval is not necessary. Our Laboratory is certified under the Clinical Laboratory Improvement Amendments of 1988 (CLIA) as qualified to perform high complexity clinical laboratory testing. Norhydrocodone Confirm (U) [Mass/Vol] <25 Cutoff <25 [facility] Work Phone: Noroxycodone Confirm (U) [Mass/Vol] <25 Cutoff <25 [facility] Work Phone: Nortramadol (U) [Mass/Vol] <50 Cutoff <50 [facility] Work Phone: Comment on above: The performance flor acteristics of the Tramadol Confirmation, Urine has been validated by the individual laboratory site where testing is performed. It has not been cleared or approved by the FDA. However the FDA has determined that such clearance or approval is not necessary. Our Laboratory is certified under the Clinical Laboratory Improvement Amendments of 1988 (CLIA) as qualified to perform high complexity clinical laboratory testing. Oxazepam Confirm (U) [Mass/Vol] <25 Cutoff <25 [facility] Work Phone: oxyCODONE Confirm (U) [Mass/Vol] <25 Cutoff <25 [facility] Work Phone: oxyMORphone Confirm (U) [Mass/Vol] <25 Cutoff <25 [facility] Work Phone: Comment on above: The performance flor acteristics of the Opiate Confirmation, Urine has been validated by the individual laboratory site where testing is performed. It has not been cleared or approved by the FDA. However the FDA has determined that such clearance or approval is not necessary. Our Laboratory is certified under the Clinical Laboratory Improvement Amendments of 1988 (CLIA) as qualified to perform high complexity clinical laboratory testing. Phencyclidine Ql (U) Negative NEGATIVE [facility] Work Phone: Comment on above: CUTOFF LEVEL: 25 NG/ ML Cross-reactivity has been reported with dextromethorphan. Temazepam Confirm (U) [Mass/Vol] <25 Cutoff <25 [facility] Work Phone: Comment on above: The performance flor acteristics of the Benzodiazepine Confirmation, Urine has been validated by the individual laboratory site where testing is performed. It has not been cleared or approved by the FDA. However the FDA has determined that such clearance or approval is not necessary. Our Laboratory is certified under the Clinical Laboratory Improvement Amendments of 1988 (CLIA) as qualified to perform high complexity clinical laboratory testing. traMADol Confirm (U) [Mass/Vol] <50 Cutoff <50 [facility] Work Phone: Zolpidem (U) [Mass/Vol] <25 Cutoff <25 [facility] Work Phone: No Panel Informationon 04-22 SEE BELOW [facility] Work Phone: Comment on above: Drug screen results are presumptive and should not be used to assess compliance with prescribed medication. Definitive confirmatory drug testing has been added to this sample for any positive screen result and will be reported separately. .Toxicology screening results are reported qualitatively. The concentration must be greater than or equal to the cutoff to be reported as positive. The concentration at which the screening test can detect an individual drug or metabolite varies. The absence of expected drug(s) and/or drug metabolite(s) may indicate non-compliance, inappropriate timing of specimen collection relative to drug administration, poor drug absorption, diluted/adulterated urine, or limitations of testing. For medical purposes only; not valid for forensic use. .Interpretive questions should be directed to the laboratory medical directors. <25 Cutoff <25 [facility] Work Phone: Comment on above: The performance flor acteristics of the Zolpidem Confirmation, Urine has been validated by the individual laboratory site where testing is performed. It has not been cleared or approved by the FDA. However the FDA has determined that such clearance or approval is not necessary. Our Laboratory is certified under the Clinical Laboratory Improvement Amendments of 1988 (CLIA) as qualified to perform high complexity clinical laboratory testing. Office Visit (Internal Medic ine)on 04-22-2022 Follow-up visit Diagnoses/Problems Assessed Depression, major, single episode, mild (296.21) (F32.0) Medication management (V58.69) (Z79.899) Cirrhosis of liver (571.5) (K74.60) she thinks has fatty liver Type 2 diabetes mellitus with hyperglycemia, with long-term current use of insulin (250.00,790.29,V58.67 ) (E11.65,Z79.4) Lumbar radiculopathy, chronic (724.4) (M54.16) Degenerative lumbar spinal stenosis (724.02) (M48.061) COPD (chronic obstructive pulmonary disease) (496) (J44.9) Acute pain of left knee (719.46) (M25.562) Diabetes mellitus with stage 3 chronic kidney disease (250.40,585.3) (E11.22,N18.30) Class 3 severe obesity due to excess calories with serious comorbidity and body mass index (BMI) of 40.0 to 44.9 in adult (278.01,V85.41) (E66.01,Z68.41) Orders Cirrhosis of liver Complete Blood Count + Differential; Status:Active; Requested for:11Zri4454; Perform:Lab Services - Lab To Draw (Blood Test); Due:13Ppa0729;Ordered ; For:Cirrhosis of liver; Ordered By:Callie Mcdonough; Comprehensive Metabolic Panel; Status:Active; Requested for:51Tcl5929; Perform:Lab Services - Lab To Draw (Blood Test); Due:11Hmw3399;Ordered ; For:Cirrhosis of liver; Ordered By:Callie Mcdonough; Ferritin, Serum; Status:Active; Requested for:22Jul2022; Perform:Lab Services - Lab To Draw (Blood Test); Due:78Ghu9847;Ordered ; For:Cirrhosis of liver; Ordered By:Callie Mcdonough; Hepatitis Panel, Acute (HCFA); Status:Active; Requested for:82Ckf2938; Perform:Lab Services - Lab To Draw (Blood Test); Due:31Ert3054;Ordered ; For:Cirrhosis of liver; Ordered By:Callie Mcdonough; Iron + TIBC, Serum; Status:Active; Requested for:22Jul2022; Perform:Lab Services - Lab To Draw (Blood Test); Due:77Ewv0358;Ordered ; For:Cirrhosis of liver; Ordered By:Callie Mcdonough; Lumbar radiculopathy, chronic Renew: Gabapentin 400 MG Oral Capsule; TAKE 1 CAPSULE TWICE DAILY Rx By: Callie Mcdonough; Dispense: 90 Days ; #:180 Capsule; Refill: 0;For: Lumbar radiculopathy, chronic; JOLENE = N; Verified Transmission to [facility]; Msg to Pharmacy: OARRS reviewed, void script 30 days from written date; Last Updated By: Al Funes; 04/22/2022 9:45:02 AM Medication management OPIATE/OPIOID/BENZO [EXTENDED] PRESCRIPTION COMPLIANCE; Status:Resulted - Preliminary; Done: 22Apr2022 10:22AM Performed:[facility]; Due:24Apr2022; Marked Important;Ordered; For:Medication management; Ordered By:Callie Mcdonough; Type 2 diabetes mellitus with hyperglycemia, with long-term current use of insulin Albumin, Urine Spot; Status:Active; Requested for:22Jul2022; Perform:Lab Services - Lab To Draw (Non-Blood Test); Due:51Iew4500;Ordered ; For:Type 2 diabetes mellitus with hyperglycemia, with long-term current use of insulin; Ordered By:Callie Mcdonough; Hemoglobin A1C; Status:Active; Requested for:22Jul2022; Perform:Lab Services - Lab To Draw (Blood Test); Due:37Iwp0839;Ordered ; For:Type 2 diabetes mellitus with hyperglycemia, with long-term current use of insulin; Ordered By:Callie Mcdonough; Lipid Panel; Status:Active; Requested for:22Jul2022; Perform:Lab Services - Lab To Draw (Blood Test); Due:50Qga0590;Ordered ; For:Type 2 diabetes mellitus with hyperglycemia, with long-term current use of insulin; Ordered By:Callie Mcdonough; T4 - Free Thyroxine, Serum; Status:Active; Requested for:22Jul2022; Perform:Lab Services - Lab To Draw (Blood Test); Due:18Ews5065;Ordered ; For:Type 2 diabetes mellitus with hyperglycemia, with long-term current use of insulin; Ordered By:Callie Mcdonough; TSH - Thyroid Stimulating Hormone, Serum; Status:Active; Requested for:22Jul2022; Perform:Lab Services - Lab To Draw (Blood Test); Due:25Rhe5928;Ordered ; For:Type 2 diabetes mellitus with hyperglycemia, with long-term current use of insulin; Ordered By:Callie Mcdonough; Patient Discussion/Summary f/u in 3 mo with labs at [facility] and med check - medicare wellness exam CBC- DM, kidney dz iron +TIBC ferritin CMP lipid microalbumin urine hgba1c TSH free t4 hep panel - cirrhosis of the liver please refer back /give contact info for ortho - she saw shadia this past summer please get records from last PCP - last 1-2 office notes, testing, imaging, mammo, colon Provider Impressions 1.Complexity: More than 1 stable chronic condition addressed 2.Data: Tests interpreted and or ordered, took independent history or records reviewed 3.Risks: Moderate Risk due to nature of medical conditions /comorbidity or meds ordered or surgical procedure referral Reviewed notes on file Reviewed labs and Testing on file - advised we get additional old records and updated labs in near future Patient to follow diet low in cholesterol, fat, and sodium. Patient is advised to increase Exercise. Patient is recommended to lose weight. Reviewed Meds and discussed common side effects Continue as directed Reviewed OARRS and is consistent and appropriate with prescribed medicines. We d (more content not included)... Normal [employer] Tobacco Screening.on 023 Adult depression screening assessment Yes [facility] Work Phone: Adult depression screening assessment No [facility] Work Phone: Adult depression screening assessment Mild (5-9) [facility] Work Phone: Fall risk assessment b) One or more fall s in the last year [facility] Work Phone: Tobacco use status [facility] a) Yes [facility] Work Phone: Tobacco Screening. Yes [facility] Work Phone: Tobacco Screening. 0-Not at all [facility] Work Phone: Tobacco Screening. 1-Several days [facility] Work Phone: Tobacco Screening. 3-Nearly every day [facility] Work Phone: Tobacco Screening. Not difficult at all [facility] Work Phone: CT C Spine without Contrasto n 04-01-2022 CT Cervical spine WO contrast Normal [facility] Work Phone: CT HEAD WO CONTRASTon 2021 CT HEAD WO CONTRAST Patient Name: JANELLE PICKETT STUDY: CT HEAD WO CONTRAST; 04/01/2022 8:23 am INDICATION: head injury . COMPARISON: None. ACCESSION NUMBER(S): [id number] ORDERING CLINICIAN: BALBIR TAVARES TECHNIQUE: Noncontrast axial CT scan of head was performed. Angled reformats in brain and bone windows were generated. The images were reviewed in bone, brain, blood and soft tissue windows. FINDINGS: CSF Spaces: The ventricles, sulci and basal cisterns are within normal limits. There is no extraaxial fluid collection. Parenchyma: The colon-white differentiation is intact. There is no mass effect or midline shift. There is no intracranial hemorrhage. Calvarium: The calvarium is unremarkable. Paranasal sinuses and mastoids: Visualized paranasal sinuses and mastoids are clear. IMPRESSION: No evidence of acute cortical infarct or intracranial hemorrhage. No evidence of intracranial hemorrhage or displaced skull fracture. Electronically signed by: HAILEE ALLRED MD [facility] CT Head without Contraston 1 06-02-2021 CT Head limited WO contrast Normal [facility] Work Phone: ELBOW COMPLETE MIN. 3 VIEWSo n 04-01-2022 ELBOW COMPLETE MIN. 3 VIEWS Patient Name: JANELLE PICKETT STUDY: ELBOW COMPLETE MIN 3 VIEWS; Left; 04/01/2022 8:33 am INDICATION: fall with pain . COMPARISON: None. ACCESSION NUMBER(S): [id number] ORDERING CLINICIAN: BALBIR TAVARES FINDINGS: The joint spaces and the bony structures are maintained without acute fracture or dislocation. IMPRESSION: Negative Electronically signed by: HAILEE ALLRED MD [facility] HIP, UNILATERAL W/PELVIS WHE N PERFORMED 2-3 VIEWSon 04-01-2022 HIP, UNILATERAL W/PELVIS WHEN PERFORMED 2-3 VIEWS Patient Name: JANELLE PICKETT STUDY: HIP, UNILATERAL W/PELVIS WHEN PERFORMED 2-3 VIEWS; Left; 04/01/2022 8:33 am INDICATION: fall with pain . COMPARISON: None. ACCESSION NUMBER(S): [id number] ORDERING CLINICIAN: BALBIR TAVARES FINDINGS: Ossification of the gluteal tendinous structures on the right likely due to remote trauma. No acute fracture or dislocation. Mild degenerative change in both hips with spurring at the superolateral acetabulum. IMPRESSION: No acute findings Electronically signed by: HAILEE ALLRED MD [facility] KNEE CMPLT, 4 OR MORE VIEWSo n 04-01-2022 KNEE CMPLT, 4 OR MORE VIEWS Patient Name: JANELLE PICKETT STUDY: KNEE; COMPLT, 4 OR MORE VIEWS; Left; 04/01/2022 8:33 am INDICATION: fall with pain . COMPARISON: None. ACCESSION NUMBER(S): [id number] ORDERING CLINICIAN: BALBIR TAAVRES FINDINGS: There is no acute fracture or dislocation IMPRESSION: Negative Electronically signed by: HAILEE ALLRED MD [facility] Provider Note - ED v3on 03-12 Provider Note - ED v3 Provider Note: Chart Review: ED NOTES ED NOTES: History of Present Illness: 66-year-old female presents after fall at home. Slipped and fell down 3 stairs off of her deck into a tree. Struck her head without loss of consciousness. Complaining of left elbow, knee, hip pain. States that the pain is sharp in nature. Worse with movement. Denies any numbness or tingling. Patient is not on anticoagulation. Past Medical History: Diabetes, COPD, cirrhosis, chronic pain, hypertension, hyperlipidemia Past surgical History: Back surgery Family history: Reviewed and not pertinent to complaint Social history: Smoker. Denies any drug or alcohol abuse. REVIEW OF SYSTEMS: Pertinent negatives and positives noted in the HPI. Otherwise, a complete review of system was negative. PHYSICAL EXAM: Appearance: Alert, oriented , cooperative, in no acute distress. Skin: Abrasion to left elbow and left knee. Eyes: PERRLA, EOMs intact, Conjunctiva pink with no redness or exudates. HENT: Normocephalic, atraumatic. Nares patent. No intraoral lesions. Neck: Supple, without meningismus. Trachea at midline. No lymphadenopathy. Pulmonary: Clear bilaterally with good chest wall excursion. No rales, rhonchi or wheezing. No accessory muscle use or stridor. Cardiac: Regular rate and rhythm, no rubs, murmurs, or gallops. Abdomen: Abdomen is soft, nontender, and nondistended. No palpable organomegaly. No rebound or guarding. Nonsurgical abdomen. Genitourinary: Exam deferred. Musculoskeletal: Full range of motion of the left elbow, left hip, left knee. Extensor mechanism intact. Strong palpable brachial, radial, popliteal, DP, PT pulses. Neurological: Cranial nerves are grossly intact, grossly normal sensation, no weakness, no focal findings identified. Psychiatric: Appropriate mood and affect. HISTORY OF PRESENTING ILLNESS JANELLE is a 66 year old Female and was seen by me at 01-Apr-2022 07:55 for a chief complaint of fall (reports tripping falling down 3 steps into a tree off a deck, denies LOC, neck or back pain reports left elbow, hip and knee pain)(1). Triage Information: Most recent Vital Sign Value Date Temp (F): 97.8 04-01-2022 07:51 Temp (C): 36.5 04-01-2022 07:51 Heart Rate (beats/min): 73 04-01-2022 07:51 Respirations (breaths/min): 18 04-01-2022 07:51 SpO2 (%): 95 04-01-2022 07:51 BP Systolic (mm Hg): 164 04-01-2022 07:51 BP Diastolic (mm Hg): 76 04-01-2022 07:51 PAST MEDICAL HISTORY ALLERGIES/INTOLERANCE S: Allergy Allergen: gemfibrozil Type: Drug Reaction: Other HEALTH HISTORY: Medical History Name:Diabetes Code:E11.9 Name:History of COPD Code:Z87.09 Name:History of cirrhosis Code:Z87.19 Name:History of depression Code:Z86.59 Name:Kidney insufficiency Code:N28.9 OUTPATIENT MEDICATIONS: Home Medications Review Status for Reconciliation: Incomplete Med Status: Incomplete Medication History Drug Name: Nebulizer Instructions: Nebulizer machine Use PRN Drug Name: atorvastatin 20 mg oral tablet Instructions: 1 tab(s) orally once a day Drug Name: cilostazol 50 mg oral tablet Instructions: 1 tab(s) orally 2 times a day Drug Name: citalopram 40 mg oral tablet Instructions: 1 tab(s) orally once a day Drug Name: cyclobenzaprine 10 mg oral tablet Instructions: 1 tab(s) orally 3 times a day, As Needed Drug Name: DULoxetine 20 mg oral delayed release capsule Instructions: 1 cap(s) orally 2 times a day
[2024-01-12 20:41] LABS: Procalcitonin 1.74 ng/mL (0.00-0.09)
[2024-01-12 20:52] LABS: Color, Urine Yellow (Yellow); Glucose, Dipstick Normal (Normal); Ketone-Dipstick Negative (Negative); Leukocyte Esterase-Dipstick Negative /ul (Negative); Nitrite-Dipstick Negative (Negative); Occult Blood-Urine 150 /ul (Negative); Protein-Dipstick 500 mg/dl (Negative); Urine Bilirubin Dipstick Negative (Negative); Urine Clarity Sl. Cloudy (Clear); Urine Urobilinogen Normal (Normal)
--- NOTE | 2024-01-12 21:07 | ECHOD_ITS ---
Reason For Study: CHF Procedure This was a 2D Doppler, Color Flow transthoracic echocardiogram. Exam performed portable in patient room. Left Ventricle Normal LV size. The estimated ejection fraction is 65 %. Diastolic function is indeterminate. No regional wall motion abnormalities noted. Right Ventricle Normal RV size. Normal systolic function. Atria The left and right atria are normal. No doppler evidence for ASD. Mitral Valve There is mild to moderate mitral annular calcification. There is no mitral valve stenosis. Trivial mitral valve insufficiency. Tricuspid Valve There is no tricuspid stenosis. Trivial tricuspid valve insufficiency. Unable to estimate RV systolic pressure due to insufficient tricuspid regurgitant envelope. Aortic Valve Trisinus/trileaflet aortic valve. Mild diffuse aortic valve thickening. There is no aortic stenosis. No aortic valve insufficiency. Pulmonic Valve There is no pulmonic valvular stenosis. Trivial pulmonic valve insufficiency. Great Vessels Normal aortic root. Pericardium/Pleural No pericardial effusion. MMode/2D Measurements & Calculations LVIDd: 4.1 cm IVSd: 1.1 cm Ao root diam: 2.6 cm LVIDs: 2.3 cm LVPWd: 1.1 cm RVDd: 2.5 cm FS: 42.6 % LAV(MOD-bp): 41.6 ml LVAd ap4: 16.8 cm2 SV(MOD-sp4): 25.8 ml LAV(MOD-bp) Indexed: 20.0 ml/m2 LVLd ap4: 6.6 cm LAV(MOD-sp2): 35.7 ml EDV(MOD-sp4): 36.2 ml LAV(MOD-sp4): 46.4 ml EDV(sp4-el): 36.6 ml LVAs ap4: 8.1 cm2 LVLs ap4: 5.6 cm ESV(MOD-sp4): 10.3 ml ESV(sp4-el): 10.0 ml EF(MOD-sp4): 71.4 % EF(sp4-el): 72.7 % SV(sp4-el): 26.6 ml LA A4 area: 17.6 cm2 LA dimension(2D): 4.4 cm RA A4 area: 14.5 cm2 TAPSE: 2.4 cm Time Measurements MV dec time: 0.20 sec Doppler Measurements & Calculations MV E max chad: 102.2 cm/sec Lat Peak E' Chad: 5.6 cm/sec Med Peak E' Chad: 5.2 cm/sec MV A max chad: 102.4 cm/sec E/E' lat: 18.2 E/E' med: 19.8 MV E/A: 1.00 Ao V2 max: 191.5 cm/sec LV V1 max: 120.5 cm/sec MV dec slope: 512.1 cm/sec2 Ao max P.7 mmHg LV V1 max P.8 mmHg Ao V2 mean: 149.0 cm/sec Ao mean P.4 mmHg Ao V2 VTI: 47.1 cm PA V2 max: 79.8 cm/sec TR max chad: 303.8 cm/sec TR max P.9 mmHg ECHO/Echo Complete Interpretation Summary The estimated ejection fraction is 65 %. Diastolic function is indeterminate. Trivial mitral valve insufficiency. Ordering Physician: Meg Rojas Referring Physician: Deepa Hunt Performed By: Deepa Epstein, RDCS, RVT
[2024-01-12 21:14] LABS: Amorphous Sediment 3+; Squamous Epithelial Cells - UA 0-5 SEEN /hpf (5-10); White Blood Cells 5-10 SEEN /hpf (0-5)
[2024-01-12] MEDS: Gabapentin 800 MG Tablet PO (21:35)
[2024-01-12] MEDS: Montelukast 10 MG Tablet PO (21:36)
[2024-01-12] MEDS: Enoxaparin 40 MG/0.4 ML Syringe SC (21:36)
[2024-01-12] MEDS: traZODone 100 MG Tablet PO (21:36)
[2024-01-12] MEDS: 0.9% Saline Lock 10 ML Syringe IV (21:36)
[2024-01-12] MEDS: Insulin Lispro 100 UNIT/ML INSULN.PEN SC (21:37)
[2024-01-12] MEDS: Insulin Glargine-YFGN 100 UNIT/ML Pen 40 UNIT SC (21:37)
[2024-01-12 21:39] LABS: Bedside Glucose 212 mg/dL (74-106)
[2024-01-12] MEDS: Metoprolol Tartrate 50 MG Tablet PO (21:39)
[2024-01-12 23:40] LABS: Troponin-I HS 11 pg/mL (3.0-54.0)
--- OUTSIDE RECORDS SUMMARY | 2024-01-12 23:59 | XMS RPT_ITS | CCD ---
Author Organization [facility] Care Team Providers Care Respooler Name Role Phone Farver, Li K Unavailable Unavailable Farver, Li K Unavailable Unavailable Donaldo Alvarez Unavailable Unavailable Donaldo Alvarez Unavailable Unavailable Ivanauskas, Saulius Unavailable Unavailable Ivkj, Saulius Unavailable Unavailable Malcolm Mayes Unavailable Unavailable Malcolm Mayes Unavailable Unavailable Pagedar, Ujwala Unavailable Unavailable Pagedar, Ujwala Unavailable Unavailable FREDY SAGASTUME Attending Unavailable FARVER, LI K. Primary Care Unavailable FARVER, LI K. Referring Unavailable FREDY SAGASTUME Attending Unavailable FARVER, LI K. Primary Care Unavailable FARVER, LI K. Admitting Unavailable FARVER, LI K. Primary Care Unavailable FARVER, LI K. Primary Care Unavailable GREG ABDUL Admitting Unavailable GREG ABDUL Referring Unavailable FARVER, LI K. Admitting Unavailable FARVER, LI K. Primary Care Unavailable FARVER, LI K. Primary Care Unavailable FARVER, LI K. Admitting Unavailable NO, PHYSICIAN Primary Care Unavailable EFRAIN HORTON Admitting Unavailable FARVER, LI K. Primary Care Unavailable Greg Abdul MD Unavailable [phone] Ida Ely CNP Primary Care Provider Ida Ely CNP Primary Care Provider IDA ELY Primary Care Unavailable TITO MARIEE Admitting Unavail able TITO MARIEE Consulting Unavail able TITO MARIEE Attending Unavail able ELY, IDA Primary Care Unavailable YOSHI MORA Attending Unavail able ELY, IDA Primary Care Unavailable DESI FRANCIS JR. Attending Unav ailable SYSTEM, PROVIDER NOT IN Attending Unavaila ble LIZET MACKAY Referring Unavailable ELY, IDA Primary Care Unavailable CHOPKO, BOB WOLODYMYR Admitting Unavail able CHOPKO, BOB WOLODYMYR Attending Unavail able ELY, IDA Primary Care Unavailable CHOPKO, BOB WOLODYMYR Admitting Unavail able CHOPKO, BOB WOLODYMYR Attending Unavail able ELY, IDA Primary Care Unavailable ELY, IDA Primary Care Unavailable LIZET MACKAY R Referring Unavailable RYLEY ANGELO Attending Unavailable ELY, IDA Primary Care Unavailable CHOPKO, BOB WOLODYMYR Attending Unavail able Required, No Pcp Unavailable Unavailable Marty Feliz Unavailable Unavailabl e Shannen Whitney Unavailable Unavailable Dana, Lakshmi Unavailable Unavailable Ryan Mehta Unavailable None, No PCP Unavailable Unavailable Unavailable Unavailable Shadia Daley Unavailable Ely, Ida A Unavailable Ely, Ida Brent Unavailable Unavailable Balbir Tavares Unavailable Unavailabl e Callie Mcdonough Unavailable Callie Mcdonough Unavailable [phone] Reta Barlow Unavailable Unavailable Callie Mcdonough PA-C Primary Care Provider Osvaldo MORRISSEY, Darian Lemus Unavailable [phone] Davide Mitchell Unavailable Unavailable OLIVIA MCDONOUGH Primary Care OLIVIA Vick Attending OLIVIA Vick Referring OLIVIA Vick Primary Care OLIVIA Vick Attending OLIVIA Vick Primary Care Brittaney Kilgore, Dr. Kane Rider Attending Unavailable Dr. Kane Kilgore Referring Unavailable Carrasco, Ms. eKlly Mathias Attending U navjimena MCDONOUGH, ALBINC CALLIE B Primary Care Unavai lable Fermin, Ms. Kelly Mathias Attending U mtat Carrasco, Ms. Kelly Mathias Attending U navailpancho MCDONOUGH, PAVasquezC CALLIE B Primary Care Unavai lablida Carrasco, Ms. Kelly Umu Attending U matt Daley, Ms. Shadia Lemus Attending Unavailabl e Daley, MsTeena Lemus Referring Unavailabl e SHARONDA, PAVasquezC CALLIE B Primary Care Unavai lable SHARONDA, PAVasquezC CALLIE B Primary Care Unavai lable Elver, MsTeena Rolle Attending Unavailab le SHARONDA PAVasquezC CALLIE B Primary Care Unavai lablida Carrasco, Ms. Kelly Mathias Attending U MD DAVIDE Mancilla Attending Unavailable ALBIN MCDONOUGHC CALLIE B Primary Care Unavapattie MITCHELL, MD DAVIDE MARTINS Attending Unavailable SHARONDA, PAVasquezC CALLIE B Primary Care Unavai lable Yen, Dr. Reta Thomas Attending Unavaila ble SHARONDA, PAVasquezC CALLIE B Primary Care Unavai lable Errol, Dr. Balbir Fisher Attending Unav ailable SHARONDA, PAVasquezC CALLIE B Primary Care Unavai lable Zumblisbet, Dr. Miguel Armenta Admitting Unav ailable Petey, Dr. Miguel Armenta Attending Unav ailable Petey, Dr. Miguel Armenta Referring Unav ailable Daley CASE MAKER-DEMO COORDINATOR, Shadia Allan Unavailable [phone] Amado MABRY, Gretel Unavailable Unavailable SHARONDA, CALLIE [...] Unavailable SHARONDA, CALLIE B Primary Care Unavailable Shadia Fisher Unavailable [phone] SHARONDA, CALLIE B Primary Care Unavailable ABEIBIE, VIVIAN Admitting Unavailable ABEMILYE, VIVIAN Attending Unavailable SHARONDA, CALLIE B Primary Care Unavailable DANIELA UP A Admitting Unavailable CED KHANMSI Attending Unavailable DESI SOLOMON Consulting Unavailable SHADIA DALEY Referring Unavailable SHARONDA, CALLIE B Primary Care Unavailable SHARONDA, CALLIE B Referring Unavailable SHARONDA, CALLIE B Primary Care Unavailable KELLY CARRASCO C Attending Unavailable SHARONDA, CALLIE B Primary Care Unavailable SHADIA DALEY Referring Unavailable SHARONDA, CALLIE B Primary Care Unavailable SHARONDA, CALLIE B Referring Unavailable SHARONDA, CALLIE B Primary Care Unavailable SHARONDA, CALLIE B Referring Unavailable SHARONDA, CALLIE B Primary Care Unavailable FREDY STYLES M Admitting Unavailable ADAMFREDY Yoo M Attending Unavailable SHARONDA, CALLIE B Primary Care Unavailable SHARONDA, CALLIE B Primary Care Unavailable RYAN MEHTA W Attending Unavailable RYAN MEHTA W Referring Unavailable SHARONDA, CALLIE B Primary Care Unavailable ADAM FREDY M Referring Unavailable SHARONDA, CALLIE B Primary Care Unavailable ADAM FREDY M Referring Unavailable SHARONDA, CALLIE B Primary Care Unavailable FERMIN, KELLY C Referring Unavailable SHARONDA, CALLIE B Primary Care Unavailable FERMIN, KELLY C Attending Unavailable SHARONDA, CALLIE B Primary Care Unavailable ADAM, FREDY M Referring Unavailable SHARONDA, CALLIE B Primary Care Unavailable FERMIN, KELLY C Attending Unavailable SHARONDA, CALLIE B Primary Care Unavailable ADAM, FREDY M Referring Unavailable SHARONDA, CALLIE B Primary Care Unavailable FERMIN, KELLY C Attending Unavailable SHARONDA, CALLIE B Primary Care Unavailable SHADIA DALEY Referring Unavailable SHARONDA, CALLIE B Primary Care Unavailable KHANH DIAZ Attending Unavailable FERMIN, KELLY C Referring Unavailable SHARONDA, CALLIE B Primary Care Unavailable SHARONDA, CALLIE B Primary Care Unavailable SHARONDA, CALLIE B Primary Care Unavailable BALBIR TAVARES Attending Unavailable SHARONDA, CALLIE B Primary Care Unavailable SHARONDA, CALLIE B Primary Care Unavailable LORNE DALE Admitting Unavailable LOREN DALE Attending Unavailable NAYANA MILLER Attending Unavailable SHARONDA, [...] sources) Gemfibrozil; Translations: [GEMFIBROZIL] Drug Allergy 04-15-2017 [facility] (20 sources) Gemfibrozil; Translations: [Unknown] Drug Allergy 04-15-2017 Other [facility] Three Repository Comment on above: abd cramps [...] serious breathing problems. Comment on above: Caution [place] law prohibits the transfer of this drug [...] Minutes, Every 24 hours, First dose on 04/04/23 at 1700, For 3 doses Suspected Indication [...] 2 hour PRN, sore throat, Starting on 04/04/23 at 1456 bisacodyl 5 mg delayed release [...] Misc (3 sources) Start: 11-12-2020 blood-glucose meter Misc Indications: Uncontrolled type 2 diabetes mellitus with hyperglycemia (HCC) by Miscellaneous route Test blood sugar daily . 1 each 0 11/12/2020 Active Start: 11-12-2020 blood-glucose meter Misc Indications: Uncontrolled type 2 diabetes mellitus with [...] take 2 puff(s) by inhalation twice daily wgtpjcpfeo-ehjjthoa-cgilbkcxpy (Breztri Aerosphere) 160-9-4.8 mcg/actuation HFA aerosol inhaler [...] mg) by mouth once daily. FROM MATTHIAS JOY JAC [address] [place] [address] 0 05/19/2021 Suspended Start: 06-10-2020 End: 05-11-2021 [...] 20 mg/ml oral solution (1 source) Uncompetitive K-cnzsbo-S-aspartate Receptor Antagonist, Sigma-1 Agonist Start: 04-04-2023 take [...] JOINT. Quantity: 1 Refills: 2 Ordered: 28-Dec-2022 Edi ROEShadia Start : 28-Dec-2022 Active Start: 10-22-2020 End: [...] : 19-May-2021 Active take 1 capsule by mo [facility] twice daily DULoxetine 20 mg oral delayed [...] End: 08-25-2023 ergocalciferol (Vitamin D-2) 1.25 MG (33154 UT) capsule Indications: Vitamin D deficiency Take 1 cap twice weekly (on separate days) 25 capsule 3 02/21/2023 08/25/2023 Discontinued (Therapy completed) Start: 11-25-2022 End: 11-25-2023 take 1 capsule by mouth every week ergocalciferol (Vitamin D-2) 1.25 MG (14307 UT) capsule Indications: Vitamin D deficiency Take [...] disease, with long-term current use of insulin ([facility]) 1 each 2 times a day as [...] pudding Start: 04-13-2023 take 1 capsule by mo uth three times daily 600 mg, oral, 3 [...] Start: 10-29-2021 take 1 capsule by mo uth twice daily Gabapentin 300 MG Oral Capsule Take 1 capsule twice daily Quantity: 60 Refills: 1 Ordered: 29-Oct-2021 Kelly Carrasco PA-C Start : 21-Ranjith-2022 Active Start: 10-29-2021 take 2 capsules by m outh twice daily Gabapentin 300 MG Oral Capsule [...] hours PRN, congestion, Starting on Tue04/04/23 at 1456 Administer with plenty of fluids [...] type 2 diabetes mellitus with complication, unspecified assisted insulin use status 1 Syringe by Miscellaneous [...] before breakfast, First dose on Tue04/14/23 at 0700 Do not break or crush [...] Start: 02-21-2023 take 1 tablet by lennie three times daily magnesium oxide (Mag-Ox) 400 [...] mg, oral, Nightly PRN, sleep, Starting on 04/04/23 at 1456 methocarbamol 500 mg oral tablet [...] scheduled, First dose on Tue04/04/23 at 1500 Start: 04-04-2023 End: 04-04-2023 methylPREDNISolone [...] PRN Quantity: 1 Refills: 0 Ordered: 07-Jul-2021 Marty Feliz Start: 07-Jul-2021 Generic Substitution Allowed nebulizers misc [...] EC tablet 40 mg polyethylene glycol 3350 53156 mg powder for oral solution (2 sources) Osmotic Laxative Start: 06-12-2023 polyethylene glycol (Glycolax, Miralax) packet 17 g Start: 04-13-2023 17 g, oral, Fazal santacruz, First dose on Tue04/13/23 at 0900 Bowel [...] 1 11/12/2020 05/21/2021 take 1 capsule by [facility] once daily potassium chloride 10 mEq oral capsule, extended release ; 1 cap(s) orally once a day Quantity: 0 Refills: 0 Ordered: 18-Oct-2022 Valencia Kent Generic Substitution Allowed take 1 capsule by mo uth twice daily potassium chloride 10 mEq oral [...] Ordered: 01-Sep-2021 Isha Bruce Generic Substitution Allowed Comment on above: It is very important that you take or use this exactly as directed. Do not skip doses or discontinue unless directed by your doctor.Obtain medical advice before taking any non-prescription drugs as some may affect the action of this medication.Take with food or milk. promethazine hydrochloride 25 mg oral tablet (20 sources) Phenothiazine Start: 023 take 1 tablet by mouth every eight hours for nausea promethazine (Phenergan) 25 mg tablet Indications: Gastroenteritis Take 1 tablet (25 mg) by mouth every 8 hours if needed for nausea or vomiting. 30 tablet 03/28/2023 Active psyllium 3400 mg powder for oral suspension (1 source) Start: 023 1 packet, oral, Daily, First dose on 04/04/23 at 1500 Bowel Regimen - for prevention of constipation. 1 mg dose 1.5 ml semaglutide 1.34 mg/ml pen injector (12 sources) Start: End: semaglutide (Ozempic) 1 mg/dose (2 mg/1.5 [...] Ordered: 01-Sep-2021 Kelly Zeng Generic Substitution Allowed Ozempic (1 mg do se) Quantity: 0 Refills: 0 Ordered: 01-Sep-2021 Isha Bruce Generic Substitution Allowed semaglutide 2 mg/dose (8 [...] (BMI) of 40.0 to 44.9 in adult ([facility]) , Diabetes mellitus with stage 3 chronic kidney disease ([facility]) Inject 2 mg under the skin 1 (one) time per week. 9 mL 3 02/21/2023 Suspended Start: 02-21-2023 semaglutide 2 mg/dose (8 mg/3 mL) pen injector Indications: Class 3 severe obesity due to excess calories with serious comorbidity and body mass index (BMI) of 40.0 to 44.9 in adult ([facility]) , Diabetes mellitus with stage 3 chronic kidney disease ([facility]) Inject 2 mg under the skin 1 [...] Start: 12-15-2022 take 1 tablet by lennie th once daily sertraline (Zoloft) 50 mg tablet [...] day, First dose on Tue04/14/23 at 0900 Start: 11-25-2022 End: 11-25-2023 take [...] Agonist Start: 06-13-2022 End: 04-13-2023 HYDROcodone-acetami nophen ([place]) 5-325 mg tablet Take by mouth every 6 hours if needed. 0 06/13/2022 04/13/2023 Discontinued (Entered in Error) Start: 09-29-2021 End: 10-29-2021 take 1 tablet by mouth every six hours as needed for pain HYDROcodone-Acetaminophen 5-325 MG Oral Tablet TAKE 1 TABLET EVERY 6 HOURS NEEDED FOR PAIN. Quantity: 12 Refills: 0 Ordered: 29-Sep-2021 Edi MUÑOZVasquezEVERARDOShadia Start : 29-Sep-2021 End : 29-Oct-2021 Complete [...] sources) beta2-Adrenergic Agonist Start: 06-10-19 End: 06-10-19 24 take 2.5 mg by inhalation every six [...] cough Quantity: 30 Refills: 0 Ordered: 07-Jul-2021 Marty Feliz Start: 07-Jul-2021 End: 05-Aug-2021 Generic Substitution Allowed [...] oral tablet (2 sources) Quinolone Antimicrobial Start: End: take 1 tablet by mouth twice daily ciprofloxacin (Cipro) 250 mg tablet Indications: Gastroenteritis Take 1 tablet (250 mg) by mouth 2 times a day for 7 days. 14 tablet 0 03/28/2023 04/04/2023 1 ml dexamethasone phosphate 10 mg/ml injection (2 sources) Corticosteroid Start: 024 End: dexAMETHasone (PF) (Decadron) injection 10 mg Start: 06-03-2023 End: 06-03-2023 dexAMETHasone (PF) (Decadron ) injection 10 mg dextromethorphan hydrobromide 3 mg/ml / promethazine hydrochloride 1.25 mg/ml oral solution (5 sources) Phenothiazine, Uncompetitive O-vcgrnb-D-aspartate Receptor Antagonist, Sigma-1 Agonist Start: 01-26-2023 End: [...] Start: 12-05-2019 take 1 puff(s) by mo uth twice daily fluticasone propion-salmeteroL (Advair HFA) 230-21 [...] th every eight hours as needed ondansetron (Zofran ODT) 4 MG disintegrating tablet Dissolve 1 (one) tablet (4 mg total) on top of tongue every 8 (eight) hours as needed for nausea . 10 tablet 0 07/30/2019 Active take 1 tablet by lennie th every four hours as needed ondansetron ODT [...] Refills: 0 Ordered: 22-Apr-2022 DO Start : 12-Nov-2020 Active Start: 11-12-2020 Ozempic (1 MG/ DOSE) [...] 100 mL/hr, intrav enous, Continuous, Starting on Tue04/04/23 at 1500 sodium polystyrene sulfonate 250 mg/ml oral suspension (1 source) Start: 06-11-2023 End: 06-11-2023 sodium polystyrene (Kayexalate) suspension 30 g sodium zirconium cyclosilicate 78854 mg powder for oral suspension (1 source) [...] End: 06-11-2023 1,950 mg, oral, Once, On Tue06/11/23 at 0600, For 1 dose, Phase II/On [...] (7 sources) Hyperglycemia; Translations: [Hyperglycemia, unspecified] Onset: Episodic Disorders of lipid metabolism (5 sources) [...] source) Long-term current use of insulin; Translations: [long term care pharmacist (current) use of insulin] 09-23-2022 Episodic Other [...] 09-01-2021 09-01-2021 Episodic Other aftercare (3 sources) jail (current) use of insulin; Translations: [jail (current) use of insulin] Onset: 09-17-2022 Episodic Other aftercare (1 source) Other long term care administrator (current) drug therapy; Translations: [Other long term care administrator (current) drug therapy] Onset: 07-03-2022 Episodic Other [...] on above: 02/2022- NORMAL. CALOS Marmolejo AT [address] [place] [address]; [id number]; Residual codes; unclassified (18 sources) Influenza [...] 12-27-2023 Anion gap [Moles/Vol] 12 mmol/L Normal - [facility] Comment on above: Performed By: #### 8 9577-1 #### CHOI GABRIELLE ([id number]) [facility] ([facility]) [address] [place] [address] Calcium [Mass/Vol] 8.7 mg/dL Normal 8.6-10.3 [facility] Comment on above: Performed By: #### 8 9577-1 #### JIMBO ANTHONY ([id number]) [facility] ([facility]) [address] [place] [address] Chloride [Moles/Vol] 100 mmol/L Normal 98-107 [facility] Comment on above: Performed By: #### 8 9577-1 #### JIMBO ANTHONY ([id number]) [facility] ([facility]) [address] [place] [address] CO2 [Moles/Vol] 25 mmol/L Normal 21-32 [facility] Comment on above: Performed By: #### 8 9577-1 #### JIMBO ANTHONY ([id number]) [facility] ([facility]) [address] [place] [address] Creatinine [Mass/Vol] 1.88 mg/dL High 0.50-1.05 [facility] Comment on above: Performed By: #### 8 9577-1 #### JIMBO ANTHONY ([id number]) [facility] ([facility]) [address] [place] [address] 22343 Glomerular filtration rate/1.73 sq M.predicted 29 mL/min/1.73m*2 Low >60 [facility] Comment on above: Result Comment: Calc ulations of estimated GFR are performed using the 2020 CKD-EPI Study Refit equation without the race variable for the IDMS-Traceable creatinine methods. https://jasn.asnjournals.org/content/early//ASN.13538 55071 Performed By: #### 8 9577-1 #### JIMBO ANTHONY ([id number]) [facility] ([facility]) [address] [place] [address]40 Glucose [Mass/Vol] 245 mg/dL High 74-99 [facility] Comment on above: Performed By: #### 8 9577-1 #### JIMBO ANTHONY ([id number]) [facility] ([facility]) [address] [place] [address] Potassium [Moles/Vol] 5.4 mmol/L High 3.5-5.3 [facility] Comment on above: Performed By: #### 8 9577-1 #### JIMBO ANTHONY ([id number]) [facility] ([facility]) [address] [place] [address] Sodium [Moles/Vol] 132 mmol/L Low 136-145 [facility] Comment on above: Performed By: #### 8 9577-1 #### JIMBO ANTHONY ([id number]) [facility] ([facility]) [address] [place] [address] Urea nitrogen [Mass/Vol] 35 mg/dL High 6-23 [facility] Comment on above: Performed By: #### 8 9577-1 #### JIMBO ANTHONY ([id number]) [facility] ([facility]) [address] [place] [address] CBC panel Auto (Bld)on 12-26 Erythrocyte distribution width (RBC) [Ratio] 14.2 % Normal 11.5-14.5 [facility] Comment on above: Performed By: #### 8 9577-1 #### JIMBO ANTHONY ([id number]) [facility] ([facility]) [address] [place] [address] Hematocrit (Bld) [Volume fraction] 36.4 % Normal 36.0-46.0 [facility] Comment on above: Performed By: #### 8 9577-1 #### JIMBO ANTHONY ([id number]) [facility] ([facility]) [address] [place] [address] Hemoglobin (Bld) [Mass/Vol] 11.6 g/dL Low 12.0-16.0 [facility] Comment on above: Performed By: #### 8 9577-1 #### JIMBO ANTHONY ([id number]) [facility] ([facility]) [address] [place] [address] 97[address] MCH (RBC) [Entitic mass] 28.6 pg Normal 26.0-34.0 [facility] Comment on above: Performed By: #### 8 9577-1 #### JIMBO ANTHONY ([id number]) [facility] ([facility]) [address] [place] [address] MCHC (RBC) [Mass/Vol] 31.9 g/dL Low 32.0-36.0 [facility] Comment on above: Performed By: #### 8 9577-1 #### JIMBO ANTHONY ([id number]) [facility] ([facility]) [address] [place] [address] MCV (RBC) [Entitic vol] 90 fL Normal 80-100 [facility] Comment on above: Performed By: #### 8 9577-1 #### JIMBO ANTHONY ([id number]) [facility] ([facility]) [address] [place] [address] Nucleated RBC/100 WBC (Bld) [Ratio] 0.0 /100 WBCs Normal 0.0-0.0 [facility] Comment on above: Performed By: #### 8 9577-1 #### JIMBO ANTHONY ([id number]) [facility] ([facility]) [address] [place], [place] [id number] Platelets (Bld) [#/Vol] 114 x10*3/uL Low 150-450 [facility] Comment on above: Performed By: #### 8 9577-1 #### JIMBO ANTHONY ([id number]) [facility] ([facility]) [address] [place], [place] [address] RBC (Bld) [#/Vol] 4.05 x10*6/uL Normal 4.00-5.20 [facility] Comment on above: Performed By: #### 8 9577-1 #### JIMBO ANTHONY ([id number]) [facility] ([facility]) [address] [place] [address] WBC (Bld) [#/Vol] 9.9 x10*3/uL Normal 4.4-11.3 [facility] Comment on above: Performed By: #### 8 9577-1 #### JIMBO ANTHONY ([id number]) [facility] ([facility]) [address] [place] [address] Glucose Test strip manual (B ld) [Mass/Vol]on 12-27-2023 Glucose [Mass/Vol] 180 mg/dL High [address] [place] [address] Comment on above: Performed By: #### 8 9577-1 #### JIMBO ANTHONY ([id number]) [facility] ([facility]) [address] [place], [place] [address] Glucose [Mass/Vol] 227 mg/dL High [address] [place] [address] Comment on above: Performed By: #### 8 9577-1 #### JIMBO ANTHONY ([id number]) [facility] ([facility]) [address] [place], [place] [id number] Glucose [Mass/Vol] 350 mg/dL High [address] [place] [address] Comment on above: Performed By: #### 8 9577-1 #### JIMBO ANTHONY ([id number]) [facility] ([facility]) [address] [place] [address] CBC W Auto Differential pane l (Bld)on 12-26-2023 Basophils (Bld) [#/Vol] 0.01 x10*3/uL Normal 0.00-0.10 [facility] Comment on above: Performed By: #### 8 9577-1 #### JIMBO ANTHONY ([id number]) [facility] ([facility]) [address] [place] [address]27[address] Basophils/100 WBC (Bld) 0.2 % Normal 0.0-2.0 [facility] Comment on above: Performed By: #### 8 9577-1 #### JIMBO ANTHONY ([id number]) [facility] ([facility]) [address] [place] [address] Eosinophils (Bld) [#/Vol] 0.00 x10*3/uL Normal 0.00-0.70 [facility] Comment on above: Performed By: #### 8 9577-1 #### JIMBO ANTHONY ([id number]) [facility] ([facility]) [address] [place] [address] Eosinophils/100 WBC (Bld) 0.0 % Normal 0.0-6.0 [facility] Comment on above: Performed By: #### 8 9577-1 #### JIMBO ANTHONY ([id number]) [facility] ([facility]) [address] [place] [address] 46689 Erythrocyte distribution width (RBC) [Ratio] 13.8 % Normal 11.5-14.5 [facility] Comment on above: Performed By: #### 8 9577-1 #### JIMBO ANTHONY ([id number]) [facility] ([facility]) [address] [place] [address] Hematocrit (Bld) [Volume fraction] 35.2 % Low 36.0-46.0 [facility] Comment on above: Performed By: #### 8 9577-1 #### JIMBO ANTHONY ([id number]) [facility] ([facility]) [address] [place] [address]6077 Hemoglobin (Bld) [Mass/Vol] 11.1 g/dL Low 12.0-16.0 [facility] Comment on above: Performed By: #### 8 9577-1 #### JIMBO ANTHONY ([id number]) [facility] ([facility]) [address] [place] [address]14[address] Immature granulocytes (Bld) [#/Vol] 0.04 x10*3/uL Normal 0.00-0.70 [facility] Comment on above: Performed By: #### 8 9577-1 #### JIMBO ANTHONY ([id number]) [facility] ([facility]) [address] [place] [address] 32341 Immature granulocytes/100 WBC (Bld) 0.8 % Normal 0.0-0.9 [facility] Comment on above: Result Comment: Mira ture Granulocyte Count (IG) includes promyelocytes, myelocytes and metamyelocytes but does not include bands. Percent differential counts (%) should be interpreted in the context of the absolute cell counts (cells/UL). Performed By: #### 8 9577-1 #### JIMBO ANTHONY ([id number]) [facility] ([facility]) [address] [place] [address] 71825 Lymphocytes (Bld) [#/Vol] 0.51 x10*3/uL Low 1.20-4.80 [facility] Comment on above: Performed By: #### 8 9577-1 #### JIMBO ANTHONY ([id number]) [facility] ([facility]) [address] [place], [place] [address] Lymphocytes/100 WBC (Bld) 10.7 % Normal 13.0-44.0 [facility] Comment on above: Performed By: #### 8 9577-1 #### JIMBO ANTHONY ([id number]) [facility] ([facility]) [address] [place] [address] 25575 MCH (RBC) [Entitic mass] 28.4 pg Normal 26.0-34.0 [facility] Comment on above: Performed By: #### 8 9577-1 #### JIMBO ANTHONY ([id number]) [facility] ([facility]) [address] [place] [address] 63018 MCHC (RBC) [Mass/Vol] 31.5 g/dL Low 32.0-36.0 [facility] Comment on above: Performed By: #### 8 9577-1 #### JIMBO ANTHONY ([id number]) [facility] ([facility]) [address] [place] [address] 01902 MCV (RBC) [Entitic vol] 90 fL Normal 80-100 [facility] Comment on above: Performed By: #### 8 9577-1 #### JIMBO ANTHONY ([id number]) [facility] ([facility]) [address] [place] [address] 33727 Monocytes (Bld) [#/Vol] 0.08 x10*3/uL Low 0.10-1.00 [facility] Comment on above: Performed By: #### 8 9577-1 #### JIMBO ANTHONY ([id number]) [facility] ([facility]) [address] [place] [address] 84586 Monocytes/100 WBC (Bld) 1.7 % Normal 2.0-10.0 [facility] Comment on above: Performed By: #### 8 9577-1 #### JIMBO ANTHONY ([id number]) [facility] ([facility]) [address] [place] [address] 55288 Neutrophils (Bld) [#/Vol] 4.14 x10*3/uL Normal 1.20-7.70 [facility] Comment on above: Result Comment: Perc ent differential counts (%) should be interpreted in the context of the absolute cell counts (cells/uL). Performed By: #### 8 9577-1 #### JIMBO ANTHONY ([id number]) [facility] ([facility]) [address] [place] [address] 46084 Neutrophils/100 WBC (Bld) 86.6 % Normal 40.0-80.0 [facility] Comment on above: Performed By: #### 8 9577-1 #### JIMBO ANTHONY ([id number]) [facility] ([facility]) [address] [place] [address] 17664 Nucleated RBC/100 WBC (Bld) [Ratio] 0.0 /100 WBCs Normal 0.0-0.0 [facility] Comment on above: Performed By: #### 8 9577-1 #### JIMBO ANTHONY ([id number]) [facility] ([facility]) [address] [place] [address] 07667 Platelets (Bld) [#/Vol] 100 x10*3/uL Low 150-450 [facility] Comment on above: Performed By: #### 8 9577-1 #### JIMBO ANTHONY ([id number]) [facility] ([facility]) [address] [place] [address] 84067 RBC (Bld) [#/Vol] 3.91 x10*6/uL Low 4.00-5.20 [facility] Comment on above: Performed By: #### 8 9577-1 #### JIMBO ANTHONY ([id number]) [facility] ([facility]) [address] [place] [address] WBC (Bld) [#/Vol] 4.8 x10*3/uL Normal 4.4-11.3 [facility] Comment on above: Performed By: #### 8 9577-1 #### JIMBO ANTHONY ([id number]) [facility] ([facility]) [address] [place] [address] Comprehensive metabolic 2000 panelon 12-26-2023 Albumin BCP dye [Mass/Vol] 2.9 g/dL Low 3.4-5.0 [facility] Comment on above: Performed By: #### 8 9577-1 #### JIMBO ANTHONY ([id number]) [facility] ([facility]) [address] [place] [address] ALP [Catalytic activity/Vol] 110 U/L Normal 33-136 [facility] Comment on above: Performed By: #### 8 9577-1 #### JIMBO ANTHONY ([id number]) [facility] ([facility]) [address] [place] [address] ALT With P-5'-P [Catalytic activity/Vol] 11 U/L Normal 7-45 [facility] Comment on above: Result Comment: Stephany ents treated with Sulfasalazine may generate falsely decreased results for ALT. Performed By: #### 8 9577-1 #### JIMBO ANTHONY ([id number]) [facility] ([facility]) [address] [place] [address] Anion gap [Moles/Vol] 13 mmol/L Normal 10-20 [facility] Comment on above: Performed By: #### 8 9577-1 #### JIMBO ANTHONY ([id number]) [facility] ([facility]) [address] [place] [address] AST With P-5'-P [Catalytic activity/Vol] 11 U/L Normal 9-39 [facility] Comment on above: Performed By: #### 8 9577-1 #### JIMBO ANTHONY ([id number]) [facility] ([facility]) [address] [place] [address] Bilirubin [Mass/Vol] 0.3 mg/dL Normal 0.0-1.2 [facility] Comment on above: Performed By: #### 8 9577-1 #### JIMBO ANTHONY ([id number]) [facility] ([facility]) [address] [place] [address] Calcium [Mass/Vol] 7.9 mg/dL Low 8.6-10.3 [facility] Comment on above: Performed By: #### 8 9577-1 #### JIMBO ANTHONY ([id number]) [facility] ([facility]) [address] [place] [address] 78033 Chloride [Moles/Vol] 100 mmol/L Normal 98-107 [facility] Comment on above: Performed By: #### 8 9577-1 #### JIMBO ANTHONY ([id number]) [facility] ([facility]) [address] [place] [address] 78078 CO2 [Moles/Vol] 24 mmol/L Normal 21-32 [facility] Comment on above: Performed By: #### 8 9577-1 #### JIMBO ANTHONY ([id number]) [facility] ([facility]) [address] [place] [address] 00866 Creatinine [Mass/Vol] 1.74 mg/dL High 0.50-1.05 [facility] Comment on above: Performed By: #### 8 9577-1 #### JIMBO ANTHONY ([id number]) [facility] ([facility]) [address] [place] [address] 23580 Glomerular filtration rate/1.73 sq M.predicted 32 mL/min/1.73m*2 Low >60 [facility] Comment on above: Result Comment: Calc ulations of estimated GFR are performed using the 2020 CKD-EPI Study Refit equation without the race variable for the IDMS-Traceable creatinine methods. https://jasn.asnjournals.org/content//ASN.98189 32969 Performed By: #### 8 9577-1 #### JIMBO ANTHONY ([id number]) [facility] ([facility]) [facility] [place] [address] Glucose [Mass/Vol] 508 mg/dL Critically high 74-99 [facility] Comment on above: Performed By: #### 8 9577-1 #### JIMBO ANTHONY ([id number]) [facility] ([facility]) [address] [place] [address] 65426 Potassium [Moles/Vol] 5.5 mmol/L High 3.5-5.3 [facility] Comment on above: Performed By: #### 8 9577-1 #### JIMBO ANTHONY ([id number]) [facility] ([facility]) [address] [place] [address] 12532 Protein [Mass/Vol] 6.4 g/dL Normal 6.4-8.2 [facility] Comment on above: Performed By: #### 8 9577-1 #### JIMBO ANTHONY ([id number]) [facility] ([facility]) [address] [place] [address] 24248 Sodium [Moles/Vol] 131 mmol/L Low 136-145 [facility] Comment on above: Performed By: #### 8 9577-1 #### JIMBO ANTHONY ([id number]) [facility] ([facility]) [address] [place] [address] 43438 Urea nitrogen [Mass/Vol] 26 mg/dL High 6-23 [facility] Comment on above: Performed By: #### 8 9577-1 #### JIMBO ANTHONY ([id number]) [facility] ([facility]) [address] [place] [address] 92906 ELECTROLYTE PANEL, URINEon 0 9- Chloride (U) [Moles/Vol] 58 mmol/L Normal [facility] Comment on above: Performed By: #### 8 9577-1 #### JIMBO ANTHONY ([id number]) [facility] ([facility]) [address] [place] [address] 11622 CHLORIDE/CREATININE (MMOL/G) IN URINE 49 mmol/g creat Normal 38-318 [facility] Comment on above: Performed By: #### 8 9577-1 #### JIMBO ANTHONY ([id number]) [facility] ([facility]) [address] [place] [address] 67922 Creatinine (U) [Mass/Vol] 119.2 mg/dL Normal 20.0-320.0 [facility] Comment on above: Performed By: #### 8 9577-1 #### JIMBO ANTHONY ([id number]) [facility] ([facility]) [address] [place] [address] 19517 Potassium (U) [Moles/Vol] 64 mmol/L Normal [facility] Comment on above: Performed By: #### 8 9577-1 #### JIMBO ANTHONY ([id number]) [facility] ([facility]) [address] [place] [address] 50631 Potassium/Creatinine (U) [Ratio] 54 mmol/g Creat Normal Not established [facility] Comment on above: Performed By: #### 8 9577-1 #### JIMBO ANTHONY ([id number]) [facility] ([facility]) [address] [place] [address] 42231 Sodium (U) [Moles/Vol] 43 mmol/L Normal Un [facility] Comment on above: Performed By: #### 8 9577-1 #### JIMBO ANTHONY ([id number]) [facility] ([facility]) [address] [place] [address] 70440 Sodium/Creatinine (U) [Ratio] 36 mmol/g Creat Normal Not established. [facility] Comment on above: Performed By: #### 8 9577-1 #### JIMBO ANTHONY ([id number]) [facility] ([facility]) [address] [place] [address] 47791 Glucose Test strip manual (B ld) [Mass/Vol]on 12-26-2023 Glucose [Mass/Vol] 450 mg/dL High 74-99 [facility] Comment on above: Performed By: #### 8 9577-1 #### JIMBO ANTHONY ([id number]) [facility] ([facility]) [address] [place] [address] Glucose [Mass/Vol] 363 mg/dL High 74-99 [facility] Comment on above: Performed By: #### 8 9577-1 #### JIMBO ANTHONY ([id number]) [facility] ([facility]) [address] [place] [address] Glucose [Mass/Vol] 399 mg/dL High 74-99 [facility] Comment on above: Performed By: #### 8 9577-1 #### JIMBO ANTHONY ([id number]) [facility] ([facility]) [address] [place] [address] 49947 Glucose [Mass/Vol] 435 mg/dL High 74-99 [facility] Comment on above: Performed By: #### 8 9577-1 #### JIMBO ANTHONY ([id number]) [facility] ([facility]) [address] [place] [address] 36467 HbA1c (Bld) [Mass fraction]o n 12-26-2023 Average glucose Estimated from glycated hemoglobin (Bld) [Mass/Vol] 183 mg/dL Normal Not Established [facility] Comment on above: Order Comment: Less [...] performed using a different testing methodology at [facility] than at other [facility]. Direct result comparisons should only be made within the same method. Performed By: #### 8 9577-1 #### JIMBO ANTHONY ([id number]) [facility] ([facility]) [address] [place] [address] Hemoglobin A1c/Hemoglobin.to camilo 12-26-2023 HbA1c (Bld) [Mass fraction] 8.0 % High see below [facility] Comment on above: Order Comment: Less [...] performed using a different testing methodology at [facility] than at other [facility]. Direct result comparisons should only be made within the same method. Performed By: #### 8 9577-1 #### JIMBO ANTHONY ([id number]) [facility] ([facility]) [address] [place] [address] Legionella sp Agon Legionella sp Ag Ql (U) Negative Normal Negative [facility] Comment on above: Performed By: #### 8 9577-1 #### JIMBO ANTHONY ([id number]) [facility] ([facility]) [address] [place] [address] Magnesiumon 12-26-2023 Magnesium [Mass/Vol] 1.59 mg/dL Low 1.60-2.40 [facility] Comment on above: Performed By: #### 8 9577-1 #### JIMBO ANTHONY ([id number]) [facility] ([facility]) [address] [place] [address] Procalcitoninon 12-26-2023 Procalcitonin [Mass/Vol] 0.10 ng/mL High <=0.07 [facility] Comment on above: Order Comment: Less [...] performed using a different testing methodology at [facility] than at other [facility]. Direct result comparisons should only be made within the same method. Performed By: #### 8 9577-1 #### JIMBO ANTHONY ([id number]) [facility] ([facility]) [address] [place] [address] 72890 Proteinon 12-26-2023 Protein Qn (U) >1000 High 5-24 [facility] Comment on above: Performed By: #### 8 9577-1 #### JIMBO ANTHONY ([id number]) [facility] ([facility]) [address] [place] [address] 17641 Protein Qn (U)on 12-26-2023 Creatinine (U) [Mass/Vol] 114.0 mg/dL Normal 20.0-320.0 [facility] Comment on above: Performed By: #### 8 9577-1 #### JIMBO ANTHONY ([id number]) [facility] ([facility]) [address] [place] [address] 68964 Protein/Creatinine (U) [Mass ratio] Normal [facility] Comment on above: Result Comment: One or more analytes used in this calculation is outside of the analytical measurement range. Calculation cannot be performed. Performed By: #### 8 9577-1 #### JIMBO ANTHONY ([id number]) [facility] ([facility]) [address] [place] [address] 82441 Streptococcus pneumoniae Ago n 12-26-2023 S. pneumoniae Ag Ql (U) Negative Normal Negative [facility] Comment on above: Performed By: #### 8 9577-1 #### JIMBO ANTHONY ([id number]) [facility] ([facility]) [address] [place] [address] VASC US LOWER EXTREMITY VENO US DUPLEX BILATERALon 12-26-2023 VAS US LOWER EXTREMITY [place] [address] ext-[phone], Vascular Lab Report [facility] US LOWER EXTREMITY VENOUS DUPLEX BILATERAL Patient Name: JANELLE PICKETT Reading Physician: [id number] Hannah MD Study Date: 12/26/2023 Ordering Provider: [id number] LOREN DALE MRN/PID: [id number] Fellow: Technologist: Desi Chen RVDanielle Date of /Age: 408/06/1955 / years Technologist 2: Gender: F Admission Status: Inpatient Location Performed: [facility] Diagnosis/ICD: Pain in right leg-M79.604; Pain in left leg-M79.605 CPT Codes: 99117 Peripheral venous duplex scan for DVT complete [...] Spontaneous/Phasic Peroneal Yes None PTV Yes None [id number] Christian Hannah MD Final Normal [facility] Bacteria identifiedon 2023 Bacteria identified Cx Nom (Bld) Test: Blood Culture Specimen Source: Peripheral Venipuncture Specimen Type: Blood culture Specimen Date: 12/25/20231923 Result Date: 12/30/20231899 Result Status: Final result Abnormal: No Resulting Lab: [facility] [address] [place] [address] CULTURE No growth at 4 days - FINAL REPORT Normal [facility] Comment on above: Performed By: #### 8 9577-1 #### JIMBO ANTHONY ([id number]) [facility] ([facility]) [address] [place] [address] 00734 CBC W Auto Differential pane l (Bld)on 12-25-2023 Basophils (Bld) [#/Vol] 0.02 x10*3/uL Normal 0.00-0.10 [facility] Comment on above: Performed By: #### 8 9577-1 #### JIMBO ANTHONY ([id number]) [facility] ([facility]) [address] [place] [address] 94675 Basophils/100 WBC (Bld) 0.3 % Normal 0.0-2.0 [facility] Comment on above: Performed By: #### 8 9577-1 #### JIMBO ANTHONY ([id number]) [facility] ([facility]) [address] [place] [address] 45899 Eosinophils (Bld) [#/Vol] 0.03 x10*3/uL Normal 0.00-0.70 [facility] Comment on above: Performed By: #### 8 9577-1 #### JIMBO ANTHONY ([id number]) [facility] ([facility]) [address] [place] [address] 01579 Eosinophils/100 WBC (Bld) 0.5 % Normal 0.0-6.0 [facility] Comment on above: Performed By: #### 8 9577-1 #### JIMBO ANTHONY ([id number]) [facility] ([facility]) [address] [place] [address] 52701 Erythrocyte distribution width (RBC) [Ratio] 13.7 % Normal 11.5-14.5 [facility] Comment on above: Performed By: #### 8 9577-1 #### JIMBO ANTHONY ([id number]) [facility] ([facility]) [address] [place] [address] 93178 Hematocrit (Bld) [Volume fraction] 35.0 % Low 36.0-46.0 [facility] Comment on above: Performed By: #### 8 9577-1 #### JIMBO ANTHONY ([id number]) [facility] ([facility]) [address] [place] [address] 04736 Hemoglobin (Bld) [Mass/Vol] 10.9 g/dL Low 12.0-16.0 [facility] Comment on above: Performed By: #### 8 9577-1 #### JIMBO ANTHONY ([id number]) [facility] ([facility]) [address] [place] [address] 59828 Immature granulocytes (Bld) [#/Vol] 0.03 x10*3/uL Normal 0.00-0.70 [facility] Comment on above: Performed By: #### 8 9577-1 #### JIMBO ANTHONY ([id number]) [facility] ([facility]) [address] [place] [address] 59698 Immature granulocytes/100 WBC (Bld) 0.5 % Normal 0.0-0.9 [facility] Comment on above: Result Comment: Mira ture Granulocyte Count (IG) includes promyelocytes, myelocytes and metamyelocytes but does not include bands. Percent differential counts (%) should be interpreted in the context of the absolute cell counts (cells/UL). Performed By: #### 8 9577-1 #### JIMBO ANTHONY ([id number]) [facility] ([facility]) [address] [place] [address] 40255 Lymphocytes (Bld) [#/Vol] 1.49 x10*3/uL Normal 1.20-4.80 [facility] Comment on above: Performed By: #### 8 9577-1 #### JIMBO ANTHONY ([id number]) [facility] ([facility]) [address] [place] [address] 25631 Lymphocytes/100 WBC (Bld) 25.7 % Normal 13.0-44.0 [facility] Comment on above: Performed By: #### 8 9577-1 #### JIMBO ANTHONY ([id number]) [facility] ([facility]) [address] [place] [address] MCH (RBC) [Entitic mass] 28.1 pg Normal 26.0-34.0 [facility] Comment on above: Performed By: #### 8 9577-1 #### JIMBO ANTHONY ([id number]) [facility] ([facility]) [address] [place] [address] MCHC (RBC) [Mass/Vol] 31.1 g/dL Low 32.0-36.0 [facility] Comment on above: Performed By: #### 8 9577-1 #### JIMBO ANTHONY ([id number]) [facility] ([facility]) [address] [place] [address] MCV (RBC) [Entitic vol] 90 fL Normal 80-100 [facility] Comment on above: Performed By: #### 8 9577-1 #### JIMBO ANTHONY ([id number]) [facility] ([facility]) [address] [place], [place] [address] Monocytes (Bld) [#/Vol] 0.43 x10*3/uL Normal 0.10-1.00 [facility] Comment on above: Performed By: #### 8 9577-1 #### JIMBO ANTHONY ([id number]) [facility] ([facility]) [address] [place] [address] 89607 Monocytes/100 WBC (Bld) 7.4 % Normal 2.0-10.0 [facility] Comment on above: Performed By: #### 8 9577-1 #### JIMBO ANTHONY ([id number]) [facility] ([facility]) [address] [place] [address] 43914 Neutrophils (Bld) [#/Vol] 3.80 x10*3/uL Normal 1.20-7.70 [facility] Comment on above: Result Comment: Perc ent differential counts (%) should be interpreted in the context of the absolute cell counts (cells/uL). Performed By: #### 8 9577-1 #### JIMBO ANTHONY ([id number]) [facility] ([facility]) [address] [place] [address] 61136 Neutrophils/100 WBC (Bld) 65.6 % Normal 40.0-80.0 [facility] Comment on above: Performed By: #### 8 9577-1 #### JIMBO ANTHONY ([id number]) [facility] ([facility]) [address] [place] [address] 35876 Nucleated RBC/100 WBC (Bld) [Ratio] 0.0 /100 WBCs Normal 0.0-0.0 [facility] Comment on above: Performed By: #### 8 9577-1 #### JIMBO ANTHONY ([id number]) [facility] ([facility]) [address] [place] [address] 11762 Platelets (Bld) [#/Vol] 104 x10*3/uL Low 150-450 [facility] Comment on above: Performed By: #### 8 9577-1 #### JIMBO ANTHONY ([id number]) [facility] ([facility]) [address] [place] [address] 61277 RBC (Bld) [#/Vol] 3.88 x10*6/uL Low 4.00-5.20 [facility] Comment on above: Performed By: #### 8 9577-1 #### JIMBO ANTHONY ([id number]) [facility] ([facility]) [address] [place] [address] 41353 WBC (Bld) [#/Vol] 5.8 x10*3/uL Normal 4.4-11.3 [facility] [place] Comment on above: Performed By: #### 8 9577-1 #### JIMBO ANTHONY ([id number]) [facility] ([facility]) [address] [place] [id number] CHEST WO IV CONTRASTon CT CHEST WO IV CONTRAST Interpreted By: Matthew Parker, STUDY: CT CHEST WO IV CONTRAST; 12/25/2023 11:12 pm INDICATION: Signs/Symptoms:? infiltrate on CXR with acute hypoxemic respiratory failure, eval for PNA and signs of aspiration. COMPARISON: None. ACCESSION NUMBER(S): [id number] ORDERING CLINICIAN: LOREN DALE TECHNIQUE: Helical data [...] Matthew Parker 12/26/2023 8:36 AM Dictation workstation: [id number] Normal [facility] Cobalaminson 12-25-2023 Cobalamin (Vitamin B12) [Mass/Vol] 280 pg/mL Normal 211-911 [facility] Comment on above: Performed By: #### 8 9577-1 #### JIMBO ANTHONY ([id number]) [facility] ([facility]) [address] [place] [address] Comprehensive metabolic 2000 panelon 12-25-2023 Albumin BCP dye [Mass/Vol] 3.0 g/dL Low 3.4-5.0 [facility] Comment on above: Performed By: #### 8 9577-1 #### JIMBO ANTHONY ([id number]) [facility] ([facility]) [address] [place] [address] ALP [Catalytic activity/Vol] 138 U/L High 33-136 [facility] Comment on above: Performed By: #### 8 9577-1 #### JIMBO ANTHONY ([id number]) [facility] ([facility]) [address] [place] [address] ALT With P-5'-P [Catalytic activity/Vol] 11 U/L Normal 7-45 [facility] Comment on above: Result Comment: Stephany ents treated with Sulfasalazine may generate falsely decreased results for ALT. Performed By: #### 8 9577-1 #### JIMBO ANTHONY ([id number]) [facility] ([facility]) [facility] [place] [address] Anion gap [Moles/Vol] 10 mmol/L Normal 10-20 [facility] Comment on above: Performed By: #### 8 9577-1 #### JIMBO ANTHONY ([id number]) [facility] ([facility]) [address] [place] [address] AST With P-5'-P [Catalytic activity/Vol] 15 U/L Normal 9-39 [facility] Comment on above: Performed By: #### 8 9577-1 #### JIMBO ATNHONY ([id number]) [facility] ([facility]) [address] [place] [address] Bilirubin [Mass/Vol] 0.3 mg/dL Normal 0.0-1.2 [facility] Comment on above: Performed By: #### 8 9577-1 #### JIMBO ANTHONY ([id number]) [facility] ([facility]) [address] [place] [address] Calcium [Mass/Vol] 8.4 mg/dL Low 8.6-10.3 [facility] Comment on above: Performed By: #### 8 9577-1 #### JIMBO ANTHONY ([id number]) [facility] ([facility]) [address] [place] [address] Chloride [Moles/Vol] 101 mmol/L Normal 98-107 [facility] Comment on above: Performed By: #### 8 9577-1 #### JIMBO ANTHONY ([id number]) [facility] ([facility]) [address] [place] [address] CO2 [Moles/Vol] 27 mmol/L Normal 21-32 [facility] Comment on above: Performed By: #### 8 9577-1 #### JIMBO ANTHONY ([id number]) [facility] ([facility]) [address] [place] [address] Creatinine [Mass/Vol] 1.57 mg/dL High 0.50-1.05 [facility] Comment on above: Performed By: #### 8 9577-1 #### JIMBO ANTHONY ([id number]) [facility] ([facility]) [address] [place] [address] Glomerular filtration rate/1.73 sq M.predicted 36 mL/min/1.73m*2 Low >60 [facility] Comment on above: Result Comment: Calc ulations of estimated GFR are performed using the 2020 CKD-EPI Study Refit equation without the race variable for the IDMS-Traceable creatinine methods. https://jasn.asnjournals.org/content//ASN.10999 72684 Performed By: #### 8 9577-1 #### JIMBO ANTHONY ([id number]) [facility] ([facility]) [address] [place] [address] Glucose [Mass/Vol] 358 mg/dL High 74-99 [facility] Comment on above: Performed By: #### 8 9577-1 #### JIMBO ANTHONY ([id number]) [facility] ([facility]) [address] [place] [address] Potassium [Moles/Vol] 4.5 mmol/L Normal 3.5-5.3 [facility] Comment on above: Performed By: #### 8 9577-1 #### JIMBO ANTHONY ([id number]) [facility] ([facility]) [address] [place] [address] Protein [Mass/Vol] 6.6 g/dL Normal 6.4-8.2 [facility] Comment on above: Performed By: #### 8 9577-1 #### JIMBO ANTHONY ([id number]) [facility] ([facility]) [address] [place] [address] Sodium [Moles/Vol] 133 mmol/L Low 136-145 [facility] Comment on above: Performed By: #### 8 9577-1 #### JIMBO ANTHONY ([id number]) [facility] ([facility]) [address] [place] [address] Urea nitrogen [Mass/Vol] 22 mg/dL Normal 6-23 [facility] Comment on above: Performed By: #### 8 9577-1 #### JIMBO ANTHONY ([id number]) [facility] ([facility]) [address] [place] [address] ECG 12-LEADon 12-25-2023 ECG 12-LEAD Ventricular Rate 65 Atrial Rate 288 QRS Duration 54 Q-T Interval 406 QTC Calculation(Bazett) 422 P [place] 50 R [place] 21 T [place] 75 QRS Count 11 Q Onset 230 [...] and clinical correlation Confirmed by Marty Feliz ([id number]) on 12/29/2023 11:30:38 PM Normal [facility] Folateon 12-25-2023 Folate [Mass/Vol] 8.5 ng/mL Normal >5.0 [facility] Comment on above: Order Comment: Less than [...] performed using a different testing methodology at [facility] than at other [facility]. Direct result comparisons should only be made within the same method. Performed By: #### 8 9577-1 #### JIMBO ANTHONY ([id number]) [facility] ([facility]) [address] [place] [address] Glucose Test strip manual (B ld) [Mass/Vol]on 12-25-2023 Glucose [Mass/Vol] 308 mg/dL High 74-99 [facility] Comment on above: Performed By: #### 8 9577-1 #### JIMBO ANTHONY ([id number]) [facility] ([facility]) [facility] [place] [address] Iron and Iron binding capaci ty panelon 12-25-2023 Iron [Mass/Vol] 43 ug/dL Normal 35-150 [facility] Comment on above: Performed By: #### 8 9577-1 #### JIMBO ANTHONY ([id number]) [facility] ([facility]) [address] [place] [address] Iron binding capacity [Mass/Vol] 294 ug/dL Normal 240-445 [facility] Comment on above: Performed By: #### 8 9577-1 #### JIMBO ANTHONY ([id number]) [facility] ([facility]) [address] [place] [address] Iron binding capacity.unsaturated [Mass/Vol] 251 ug/dL Normal 110-370 [facility] Comment on above: Performed By: #### 8 9577-1 #### JIMBO ANTHONY ([id number]) [facility] ([facility]) [address] [place] [address] Iron saturation [Mass fraction] 15 % Low 25-45 [facility] Comment on above: Performed By: #### 8 9577-1 #### JIMBO ANTHONY ([id number]) [facility] ([facility]) [address] [place] [address] Lactateon 12-25-2023 Lactate [Moles/Vol] 1.4 mmol/L Normal 0.4-2.0 [facility] Comment on above: Order Comment: Less than [...] performed using a different testing methodology at [facility] than at other [facility]. Direct result comparisons should only be made within the same method. Performed By: #### 8 9577-1 #### JIMBO ANTHONY ([id number]) [facility] ([facility]) [address] [place] [address] Natriuretic peptide B [Mass/ Vol]on 12-25-2023 Natriuretic peptide B (Bld) [Mass/Vol] 235 pg/mL High 0-99 [facility] Comment on above: Order Comment: Less [...] performed using a different testing methodology at [facility] than at other [facility]. Direct result comparisons should only be made within the same method. Performed By: #### 8 9577-1 #### JIMBO ANTHONY ([id number]) [facility] ([facility]) [address] [place] [id number] SARS coronavirus 2 RNAon SARS-CoV-2 (COVID-19) RNA JACKIE+probe Ql (Resp) Not detected Normal Not Detected [facility] Comment on above: Order Comment: Less [...] performed using a different testing methodology at [facility] than at other [facility]. Direct result comparisons should only be made within the same method. Performed By: #### 8 9577-1 #### JIMBO ANTHONY ([id number]) [facility] ([facility]) [facility] [place] [address] TSH WITH REFLEX TO FREE T4 I F ABNORMALon 12-25-2023 TSH Qn 7.23 m[IU]/L High 0.44-3.98 [facility] Comment on above: Order Comment: Less [...] performed using a different testing methodology at [facility] than at other [facility]. Direct result comparisons should only be made within the same method. Performed By: #### 8 9577-1 #### JIMBO ANTHONY ([id number]) [facility] ([facility]) [facility] [place] [address] Thyroxine.freeon 12-25-2023 Free T4 [Mass/Vol] 0.67 ng/dL Normal 0.61-1.12 [facility] Comment on above: Order Comment: Less [...] performed using a different testing methodology at [facility] than at other [facility]. Direct result comparisons should only be made within the same method. Performed By: #### 8 9577-1 #### JIMBO ANTHONY ([id number]) [facility] ([facility]) [address] [place] [address] Troponin I.cardiac panelon 0 12-25-2023 Tropinin I.cardiac panel High sensitivity method 7 ng/L Normal 0-13 [facility] Comment on above: Order Comment: Less [...] performed using a different testing methodology at [facility] than at other [facility]. Direct result comparisons should only be made within the same method. Performed By: #### 8 9577-1 #### JIMBO ANTHONY ([id number]) [facility] ([facility]) [address] [place], [place] [address] US RENAL COMPLETEon 12-25-19 US RENAL COMPLETE Interpreted By: Matthew Parker, STUDY: US RENAL COMPLETE; 12/26/2023 7:16 am INDICATION: Signs/Symptoms:MOLLY on CKD, eval for post-renal obstruction or hydronephrosis. COMPARISON: None. ACCESSION NUMBER(S): [id number] ORDERING CLINICIAN: LOREN DALE TECHNIQUE: Multiple images [...] bladder. Splenomegaly. MACRO: None Signed by: Matthew Parker 12/26/2023 8:38 AM Dictation workstation: [id number] Normal [facility] Urinalysis complete W Reflex Culture panel (U)on 12-25-2023 Appearance (U) Clear Normal Clear [facility] Comment on above: Performed By: #### 8 9577-1 #### JIMBO ANTHONY ([id number]) [facility] ([facility]) [address] [place] [address] Bilirubin (U) [Mass/Vol] Negative Normal NEGATIVE [facility] Comment on above: Performed By: #### 8 9577-1 #### JIMBO ANTHONY ([id number]) [facility] ([facility]) [address] [place], [place] [address] Color (U) Light-Yellow Normal Light-Yellow , Yellow, Dark-Yellow [facility] Comment on above: Performed By: #### 8 9577-1 #### JIMBO ANTHONY ([id number]) [facility] ([facility]) [address] [place], [place] [address] Epithelial cells.squamous Auto (Urine sed) [#/Area] 1-9 (SPARSE) Normal Reference range not established. [facility] Comment on above: Performed By: #### 8 9577-1 #### JIMBO ANTHONY ([id number]) [facility] ([facility]) [address] [place], [place] [address] Glucose Auto test strip (U) [Mass/Vol] 500 (3+) Abnormal Normal [facility] Comment on above: Performed By: #### 8 9577-1 #### JIMBO ANTHONY ([id number]) [facility] ([facility]) [address] [place] [address] Ketones (U) [Mass/Vol] Negative Normal NEGATIVE [facility] Comment on above: Performed By: #### 8 9577-1 #### JIMBO ANTHONY ([id number]) [facility] ([facility]) [address] [place] [address] Leukocyte esterase Auto test strip Ql (U) Negative Normal NEGATIVE [facility] Comment on above: Performed By: #### 8 9577-1 #### JIMBO ANTHONY ([id number]) [facility] ([facility]) [address] [place] [address] Nitrite Auto test strip Ql (U) Negative Normal NEGATIVE [facility] Comment on above: Performed By: #### 8 9577-1 #### JIMBO ANTHONY ([id number]) [facility] ([facility]) [address] [place] [address] pH (U) 6.0 [pH] Normal 5.0, 5.5, 6.0, 6.5, 7.0, 7.5, 8.0 [facility] Comment on above: Performed By: #### 8 9577-1 #### JIMBO ANTHONY ([id number]) [facility] ([facility]) [address] [place] [address] Protein (U) [Mass/Vol] 300 (3+) Abnormal NEGAT ABDELRAHMAN, 10 (TRACE), 20 (TRACE) [facility] Comment on above: Performed By: #### 8 9577-1 #### JIMBO ANTHONY ([id number]) [facility] ([facility]) [address] [place] [address]645 RBC (U) [#/Vol] 0.2 (2+) Abnormal NEGATIVE [facility] Comment on above: Performed By: #### 8 9577-1 #### JIMBO ANTHONY ([id number]) [facility] ([facility]) [address] [place] [address] 25231 RBC Auto (Urine sed) [#/Area] 11-20 Abnormal NONE, 1-2, 3-5 [facility] Comment on above: Performed By: #### 8 9577-1 #### JIMBO ANTHONY ([id number]) [facility] ([facility]) [address] [place] [address] Specific gravity (U) [Rel density] 1.017 Normal 1.005-1.035 [facility] Comment on above: Performed By: #### 8 9577-1 #### JIMBO ANTHONY ([id number]) [facility] ([facility]) [address] [place] [address] 34049 Urobilinogen (U) [Mass/Vol] Normal Normal Normal [facility] Comment on above: Performed By: #### 8 9577-1 #### JIMBO ANTHONY ([id number]) [facility] ([facility]) [address] [place] [address] WBC Auto (Urine sed) [#/Area] 1-5 Normal 1-5, NONE [facility] Comment on above: Performed By: #### 8 9577-1 #### JIMBO ANTHONY ([id number]) [facility] ([facility]) [address] [place] [address] XR CHEST 1 VIEWon 12-25-2023 XR CHEST 1 VIEW Interpreted By: Gretel Santa, STUDY: XR CHEST 1 VIEW; 12/25/2023 7:29 pm INDICATION: Signs/Symptoms:SOB. COMPARISON: 11/25/2023 ACCESSION NUMBER(S): [id number] ORDERING CLINICIAN: RYAN MEHTA FINDINGS: CARDIOMEDIASTINAL SILHOUETTE: [...] Gretel Santa 12/25/2023 7:54 PM Dictation workstation: [id number] [facility] Bacteria identifiedon 2023 Bacteria identified Cx Nom (Bld) Test: Blood Culture Specimen Source: Peripheral Venipuncture Specimen Type: Blood culture Specimen Date: 11/25/2023 1429 Result Date: 11/30/2023 0201 Result Status: Final result Abnormal: No Resulting Lab: [facility] [address] [facility] [address] CULTURE No growth at 4 days - FINAL REPORT Normal [facility] Comment on above: Performed By: #### 8 9577-1 #### JIMBO ANTHONY ([id number]) [facility] ([facility]) [address] [place] [address] CBC W Auto Differential pane l (Bld)on 11-25-2023 Basophils (Bld) [#/Vol] 0.01 x10*3/uL Normal 0.00-0.10 [facility] Comment on above: Order Comment: Less [...] performed using a different testing methodology at [facility] than at other [facility]. Direct result comparisons should only be made within the same method. Performed By: #### 8 9577-1 #### JIMBO ANTHONY ([id number]) [facility] ([facility]) [address] [place] [address] Basophils/100 WBC (Bld) 0.2 % Normal 0.0-2.0 [facility] Comment on above: Order Comment: Less [...] performed using a different testing methodology at [facility] than at other [facility]. Direct result comparisons should only be made within the same method. Performed By: #### 8 9577-1 #### JIMBO ANTHONY ([id number]) [facility] ([facility]) [address] [place] [address] Eosinophils (Bld) [#/Vol] 0.04 x10*3/uL Normal 0.00-0.70 [facility] Comment on above: Order Comment: Less [...] performed using a different testing methodology at [facility] than at other [facility]. Direct result comparisons should only be made within the same method. Performed By: #### 8 9577-1 #### JIMBO ANTHONY ([id number]) [facility] ([facility]) [address] [place] [address] Eosinophils/100 WBC (Bld) 0.8 % Normal 0.0-6.0 [facility] Comment on above: Order Comment: Less [...] performed using a different testing methodology at [facility] than at other [facility]. Direct result comparisons should only be made within the same method. Performed By: #### 8 9577-1 #### JIMBO ANTHONY ([id number]) [facility] ([facility]) [address] [place] [address] Erythrocyte distribution width (RBC) [Ratio] 14.1 % Normal 11.5-14.5 [facility] Comment on above: Order Comment: Less [...] performed using a different testing methodology at [facility] than at other [facility]. Direct result comparisons should only be made within the same method. Performed By: #### 8 9577-1 #### JIMBO ANTHONY ([id number]) [facility] ([facility]) [address] [place] [address] Hematocrit (Bld) [Volume fraction] 34.5 % Low 36.0-46.0 [facility] Comment on above: Order Comment: Less [...] performed using a different testing methodology at [facility] than at other [facility]. Direct result comparisons should only be made within the same method. Performed By: #### 8 9577-1 #### JIMBO ANTHONY ([id number]) [facility] ([facility]) [address] [place] [address] Hemoglobin (Bld) [Mass/Vol] 11.3 g/dL Low 12.0-16.0 [facility] Comment on above: Order Comment: Less [...] performed using a different testing methodology at [facility] than at other [facility]. Direct result comparisons should only be made within the same method. Performed By: #### 8 9577-1 #### JIMBO ANTHONY ([id number]) [facility] ([facility]) [address] [place] [address] Immature granulocytes (Bld) [#/Vol] 0.02 x10*3/uL Normal 0.00-0.70 [facility] Comment on above: Order Comment: Less [...] performed using a different testing methodology at [facility] than at [facility]. Direct result comparisons should only be made within the same method. Performed By: #### 8 9577-1 #### CHOI GABRIELLE ([id number]) [facility] ([facility]) [address] [place] [address] Immature granulocytes/100 WBC (Bld) 0.4 % Normal 0.0-0.9 [facility] Comment on above: Order Comment: Less [...] performed using a different testing methodology at [facility] than at other [facility]. Direct result comparisons should only be made within the same method. Result Comment: Mira ture Granulocyte Count (IG) includes promyelocytes, myelocytes and metamyelocytes but does not include bands. Percent differential counts (%) should be interpreted in the context of the absolute cell counts (cells/UL). Performed By: #### 8 9577-1 #### JIMBO ANTHONY ([id number]) [facility] ([facility]) [address] [place] [address] Lymphocytes (Bld) [#/Vol] 1.19 x10*3/uL Low 1.20-4.80 [facility] Comment on above: Order Comment: Less [...] performed using a different testing methodology at [facility] than at other [facility]. Direct result comparisons should only be made within the same method. Performed By: #### 8 9577-1 #### JIMBO ANTHONY ([id number]) [facility] ([facility]) [facility] [place] [address] Lymphocytes/100 WBC (Bld) 23.9 % Normal 13.0-44.0 [facility] Comment on above: Order Comment: Less [...] performed using a different testing methodology at [facility] than at [facility]. Direct result comparisons should only be made within the same method. Performed By: #### 8 9577-1 #### JIMBO ANTHONY ([id number]) [facility] ([facility]) [facility] (RBC) [Entitic mass] 29.2 pg Normal 26.0-34.0 [facility] Comment on above: Order Comment: Less [...] performed using a different testing methodology at [facility] than at [facility]. Direct result comparisons should only be made within the same method. Performed By: #### 8 9577-1 #### JIMBO ANTHONY ([id number]) [facility] ([facility]) [address] [place], [place] [address]C (RBC) [Mass/Vol] 32.8 g/dL Normal 32.0-36.0 [facility] Comment on above: Order Comment: Less [...] performed using a different testing methodology at [facility] than at [facility]. Direct result comparisons should only be made within the same method. Performed By: #### 8 9577-1 #### JIMBO ANTHONY ([id number]) [facility] ([facility]) [facility] [place] [id number] MCV (RBC) [Entitic vol] 89 fL Normal 80-100 [facility] Comment on above: Order Comment: Less [...] performed using a different testing methodology at [facility] than at [facility]. Direct result comparisons should only be made within the same method. Performed By: #### 8 9577-1 #### JIMBO ANTHONY ([id number]) [facility] ([facility]) [facility] [place] [phone] Monocytes (Bld) [#/Vol] 0.35 x10*3/uL Normal 0.10-1.00 [facility] Comment on above: Order Comment: Less [...] performed using a different testing methodology at [facility] than at other [facility]. Direct result comparisons should only be made within the same method. Performed By: #### 8 9577-1 #### JIMBO ANTHONY ([id number]) [facility] ([facility]) [facility] [place] [address] Monocytes/100 WBC (Bld) 7.0 % Normal 2.0-10.0 [facility] Comment on above: Order Comment: Less [...] performed using a different testing methodology at [facility] than at other [facility]. Direct result comparisons should only be made within the same method. Performed By: #### 8 9577-1 #### JIMBO ANTHONY ([id number]) [facility] ([facility]) [address] [place] [address] 26656 Neutrophils (Bld) [#/Vol] 3.37 x10*3/uL Normal 1.20-7.70 [facility] Comment on above: Order Comment: Less [...] performed using a different testing methodology at [facility] than at other [facility]. Direct result comparisons should only be made within the same method. Result Comment: Perc ent differential counts (%) should be interpreted in the context of the absolute cell counts (cells/uL). Performed By: #### 8 9577-1 #### JIMBO ANTHONY ([id number]) [facility] ([facility]) [address] [place] [address] 55924 Neutrophils/100 WBC (Bld) 67.7 % Normal 40.0-80.0 [facility] Comment on above: Order Comment: Less [...] performed using a different testing methodology at [facility] than at other [facility]. Direct result comparisons should only be made within the same method. Performed By: #### 8 9577-1 #### JIMBO ANTHONY ([id number]) [facility] ([facility]) [address] [place] [address] 71536 Nucleated RBC/100 WBC (Bld) [Ratio] 0.0 /100 WBCs Normal 0.0-0.0 [facility] Comment on above: Order Comment: Less [...] performed using a different testing methodology at [facility] than at other [facility]. Direct result comparisons should only be made within the same method. Performed By: #### 8 9577-1 #### JIMBO ANTHONY ([id number]) [facility] ([facility]) [address] [place] [address] Platelets (Bld) [#/Vol] 89 x10*3/uL Low 150-450 [facility] Comment on above: Order Comment: Less [...] performed using a different testing methodology at [facility] than at other [facility]. Direct result comparisons should only be made within the same method. Result Comment: Plat elet count verified by smear review. no clots or plt clumps seen Performed By: #### 8 9577-1 #### JIMBO ANTHONY ([id number]) [facility] ([facility]) [address] [place] [address] RBC (Bld) [#/Vol] 3.87 x10*6/uL Low 4.00-5.20 [facility] Comment on above: Order Comment: Less [...] performed using a different testing methodology at [facility] than at other [facility]. Direct result comparisons should only be made within the same method. Performed By: #### 8 9577-1 #### JIMBO ANTHONY ([id number]) [facility] ([facility]) [address] [place] [address] WBC (Bld) [#/Vol] 5.0 x10*3/uL Normal 4.4-11.3 [facility] Comment on above: Order Comment: Less than [...] performed using a different testing methodology at [facility] than at other [facility]. Direct result comparisons should only be made within the same method. Performed By: #### 8 9577-1 #### JIMBO ANTHOYN ([id number]) [facility] ([facility]) [address] [place] [address] CT HEAD WO IV CONTRASTon CT HEAD WO IV CONTRAST Interpreted By: Glen Crowley, STUDY: CT HEAD WO IV CONTRAST; 11/25/2023 2:22 pm INDICATION: Signs/Symptoms:headac he. COMPARISON: 10/14/2023 ACCESSION NUMBER(S): [id number] ORDERING CLINICIAN: MARTY PIERRE TECHNIQUE: Contiguous axial [...] Glen Crowley 11/25/2023 2:33 PM Dictation workstation: [id number] Normal [facility] Comprehensive metabolic 2000 panelon 11-25-2023 Albumin BCP dye [Mass/Vol] 3.0 g/dL Low 3.4-5.0 [facility] Comment on above: Performed By: #### 8 9577-1 #### JIMBO ANTHONY ([id number]) [facility] ([facility]) [address] [place] [address] ALP [Catalytic activity/Vol] 111 U/L Normal 33-136 [facility] Comment on above: Performed By: #### 8 9577-1 #### JIMBO ANTHONY ([id number]) [facility] ([facility]) [address] [place] [address] ALT With P-5'-P [Catalytic activity/Vol] 11 U/L Normal 7-45 [facility] Comment on above: Result Comment: Stephany ents treated with Sulfasalazine may generate falsely decreased results for ALT. Performed By: #### 8 9577-1 #### JIMBO ANTHONY ([id number]) [facility] ([facility]) [facility] [place] [address] Anion gap [Moles/Vol] 10 mmol/L Normal 10-20 [facility] Comment on above: Performed By: #### 8 9577-1 #### JIMBO ANTHONY ([id number]) [facility] ([facility]) [address] [place] [address] 51397 AST With P-5'-P [Catalytic activity/Vol] 16 U/L Normal 9-39 [facility] Comment on above: Performed By: #### 8 9577-1 #### JIMBO ANTHONY ([id number]) [facility] ([facility]) [address] [place] [address] Bilirubin [Mass/Vol] 0.4 mg/dL Normal 0.0-1.2 [facility] Comment on above: Performed By: #### 8 9577-1 #### JIMBO ANTHONY ([id number]) [facility] ([facility]) [address] [place] [address] 97768 Calcium [Mass/Vol] 8.3 mg/dL Low 8.6-10.3 [facility] Comment on above: Performed By: #### 8 9577-1 #### JIMBO ANTHONY ([id number]) [facility] ([facility]) [address] [place] [address]201 Chloride [Moles/Vol] 100 mmol/L Normal 98-107 [facility] Comment on above: Performed By: #### 8 9577-1 #### JIMBO ANTHONY ([id number]) [facility] ([facility]) [address] [place] [address] CO2 [Moles/Vol] 28 mmol/L Normal 21-32 [facility] Comment on above: Performed By: #### 8 9577-1 #### JIMBO ANTHONY ([id number]) [facility] ([facility]) [address] [place] [address]4314 Creatinine [Mass/Vol] 1.17 mg/dL High 0.50-1.05 [facility] Comment on above: Performed By: #### 8 9577-1 #### JIMBO ANTHONY ([id number]) [facility] ([facility]) [address] [place] [address] 98413 Glomerular filtration rate/1.73 sq M.predicted 51 mL/min/1.73m*2 Low >60 [facility] Comment on above: Result Comment: Calc ulations of estimated GFR are performed using the 2020 CKD-EPI Study Refit equation without the race variable for the IDMS-Traceable creatinine methods. https://jasn.asnjournals.org/content//ASN.48223 95510 Performed By: #### 8 9577-1 #### JIMBO ANTHONY ([id number]) [facility] ([facility]) [address] [place] [address] 95809 Glucose [Mass/Vol] 273 mg/dL High 74-99 [facility] Comment on above: Performed By: #### 8 9577-1 #### JIMBO ANTHONY ([id number]) [facility] ([facility]) [address] [place] [address] 15367 Potassium [Moles/Vol] 4.3 mmol/L Normal 3.5-5.3 [facility] Comment on above: Performed By: #### 8 9577-1 #### JIMBO ANTHONY ([id number]) [facility] ([facility]) [address] [place] [address] 89489 Protein [Mass/Vol] 6.6 g/dL Normal 6.4-8.2 [facility] Comment on above: Performed By: #### 8 9577-1 #### JIMBO ANTHONY ([id number]) [facility] ([facility]) [address] [place] [address] 28527 Sodium [Moles/Vol] 134 mmol/L Low 136-145 [facility] Comment on above: Performed By: #### 8 9577-1 #### JIMBO ANTHONY ([id number]) [facility] ([facility]) [address] [place] [address] 37249 Urea nitrogen [Mass/Vol] 14 mg/dL Normal 6-23 [facility] Comment on above: Performed By: #### 8 9577-1 #### JIMBO ANTHONY ([id number]) [facility] ([facility]) [address] [place] [address] 22450 Lactateon 11-25-2023 Lactate [Moles/Vol] 1.5 mmol/L Normal 0.4-2.0 [facility] Comment on above: Order Comment: Less than [...] performed using a different testing methodology at [facility] than at other [facility]. Direct result comparisons should only be made within the same method. Performed By: #### 8 9577-1 #### JIMBO ANTHONY ([id number]) [facility] ([facility]) [facility] [place] [address] RBC shape Nom (Bld)on 2023 Hypochromia Ql (Bld) [facility] Comment on above: Order Comment: Less than [...] performed using a different testing methodology at [facility] than at other [facility]. Direct result comparisons should only be made within the same method. Performed By: #### 8 9577-1 #### JIMBO ANTHONY ([id number]) [facility] ([facility]) [address] [place] [address] Polychromasia LM Ql (Bld) [facility] Comment on above: Order Comment: [...] performed using a different testing methodology at [facility] than at other [facility]. Direct result comparisons should only be made within the same method. Performed By: #### 8 9577-1 #### JIMBO ANTHONY ([id number]) [facility] ([facility]) [address] [place] [address] RBC morphology finding Nom (Bld) See Below Normal [facility] Comment on above: Order Comment: Less [...] performed using a different testing methodology at [facility] than at other [facility]. Direct result comparisons should only be made within the same method. Performed By: #### 8 9577-1 #### JIMBO ANTHONY ([id number]) [facility] ([facility]) [address] [place] [address] SARS coronavirus 2 RNAon SARS-CoV-2 (COVID-19) RNA JACKIE+probe Ql (Resp) Not detected Normal Not Detected [facility] Comment on above: Order Comment: Less [...] performed using a different testing methodology at [facility] than at other [facility]. Direct result comparisons should only be made within the same method. Performed By: #### 8 9577-1 #### JIMBO ANTHONY ([id number]) [facility] ([facility]) [address] [place] [address] Urinalysis complete W Reflex Culture panel (U)on 11-25-2023 Appearance (U) Turbid Normal Clear [facility] Comment on above: Performed By: #### 8 9577-1 #### JIMBO ANTHONY ([id number]) [facility] ([facility]) [address] [place], [place] [address] Bacteria Auto (Urine sed) [#/Area] 1+ /HPF Abnormal NONE SEEN [facility] Comment on above: Performed By: #### 8 9577-1 #### JIMBO ANTHONY ([id number]) [facility] ([facility]) [address] [place] [address] 83864 Bilirubin (U) [Mass/Vol] Negative Normal NEGATIVE [facility] Comment on above: Performed By: #### 8 9577-1 #### JIMBO ANTHONY ([id number]) [facility] ([facility]) [address] [place], [place] [address] Color (U) Yellow Normal Light-Yellow , Yellow, Dark-Yellow [facility] Comment on above: Performed By: #### 8 9577-1 #### JIMBO ANTHONY ([id number]) [facility] ([facility]) [address] [place] [address] 65427 Epithelial cells.squamous Auto (Urine sed) [#/Area] 26-50 (1+) Normal Reference range not established. [facility] Comment on above: Performed By: #### 8 9577-1 #### JIMBO ANTHONY ([id number]) [facility] ([facility]) [address] [place] [address] 98401 Glucose Auto test strip (U) [Mass/Vol] 50 (TRACE) Abnormal Normal [facility] Comment on above: Performed By: #### 8 9577-1 #### JIMBO ANTHONY ([id number]) [facility] ([facility]) [address] [place] [address] 40318 Hyaline casts Auto (Urine sed) [#/Area] OCCASIONAL Abnormal NONE [facility] Comment on above: Performed By: #### 8 9577-1 #### JIMBO ANTHONY ([id number]) [facility] ([facility]) [address] [place] [address] Ketones (U) [Mass/Vol] Negative Normal NEGATIVE [facility] Comment on above: Performed By: #### 8 9577-1 #### JIMBO ANTHONY ([id number]) [facility] ([facility]) [address] [place], [place] [address] Leukocyte esterase Auto test strip Ql (U) Negative Normal NEGATIVE [facility] Comment on above: Performed By: #### 8 9577-1 #### JIMBO ANTHONY ([id number]) [facility] ([facility]) [address] [place], [place] [address] Nitrite Auto test strip Ql (U) Negative Normal NEGATIVE [facility] Comment on above: Performed By: #### 8 9577-1 #### JIMBO ANTHONY ([id number]) [facility] ([facility]) [address] [place] [address] 03146 pH (U) 6.5 [pH] Normal 5.0, 5.5, 6.0, 6.5, 7.0, 7.5, 8.0 [facility] Comment on above: Performed By: #### 8 9577-1 #### JIMBO ANTHONY ([id number]) [facility] ([facility]) [address] [place] [address] Protein (U) [Mass/Vol] 300 (3+) Abnormal NEGAT ABDELRAHMAN, 10 (TRACE), 20 (TRACE) [facility] Comment on above: Performed By: #### 8 9577-1 #### JIMBO ANTHONY ([id number]) [facility] ([facility]) [address] [place] [address] RBC (U) [#/Vol] 0.5 (2+) Abnormal NEGATIVE [facility] Comment on above: Performed By: #### 8 9577-1 #### JIMBO ANTHONY ([id number]) [facility] ([facility]) [address] [place] [address] RBC Auto (Urine sed) [#/Area] >20 Abnormal NONE, 1-2, 3-5 [facility] Comment on above: Performed By: #### 8 9577-1 #### JIMBO ANTHONY ([id number]) [facility] ([facility]) [address] [place] [address] Specific gravity (U) [Rel density] 1.024 Normal 1.005-1.035 [facility] Comment on above: Performed By: #### 8 9577-1 #### JIMBO ANTHONY ([id number]) [facility] ([facility]) [address] [place] [address] Urobilinogen (U) [Mass/Vol] Normal Normal Normal [facility] Comment on above: Performed By: #### 8 9577-1 #### JIMBO ANTHONY ([id number]) [facility] ([facility]) [address] [place] [address] WBC Auto (Urine sed) [#/Area] 1-5 Normal 1-5, NONE [facility] Comment on above: Performed By: #### 8 9577-1 #### JIMBO ANTHONY ([id number]) [facility] ([facility]) [address] [place] [address] XR CHEST 1 VIEWon 11-25-2023 XR CHEST 1 VIEW Interpreted By: Glen Crowley, STUDY: XR CHEST 1 VIEW 11/25/2023 2:20 pm INDICATION: Signs/Symptoms:cough COMPARISON: 10/14/2023 ACCESSION NUMBER(S): [id number] ORDERING CLINICIAN: MARTY PIERRE TECHNIQUE: A single [...] Glen Crowley 11/25/2023 2:32 PM Dictation workstation: [id number] [facility] CBC W Auto Differential pane l (Bld)on 10-14-2023 Basophils (Bld) [#/Vol] 0.02 x10*3/uL Normal 0.00-0.10 [facility] Comment on above: Performed By: #### 1 9123-9 #### JIMBO ANTHONY ([id number]) [facility] ([facility]) [address] [place] [address] 47137 Basophils/100 WBC (Bld) 0.4 % Normal 0.0-2.0 [facility] Comment on above: Performed By: #### 1 9123-9 #### JIMBO ANTHONY ([id number]) [facility] ([facility]) [address] [place] [address] 78681 Eosinophils (Bld) [#/Vol] 0.06 x10*3/uL Normal 0.00-0.70 [facility] Comment on above: Performed By: #### 1 9123-9 #### JIMBO ANTHONY ([id number]) [facility] ([facility]) [address] [place] [address] 40246 Eosinophils/100 WBC (Bld) 1.1 % Normal 0.0-6.0 [facility] Comment on above: Performed By: #### 1 9123-9 #### JIMBO ANTHONY ([id number]) [facility] ([facility]) [address] [place] [address] 97483 Erythrocyte distribution width (RBC) [Ratio] 14.4 % Normal 11.5-14.5 [facility] Comment on above: Performed By: #### 1 9123-9 #### JIMOB ANTHONY ([id number]) [facility] ([facility]) [address] [place] [address] Hematocrit (Bld) [Volume fraction] 36.1 % Normal 36.0-46.0 [facility] Comment on above: Performed By: #### 1 9123-9 #### JIMBO ANTHONY ([id number]) [facility] ([facility]) [address] [place] [address] Hemoglobin (Bld) [Mass/Vol] 11.6 g/dL Low 12.0-16.0 [facility] Comment on above: Performed By: #### 1 9123-9 #### JIMBO ANTHONY ([id number]) [facility] ([facility]) [address] [place] [address] Immature granulocytes (Bld) [#/Vol] 0.04 x10*3/uL Normal 0.00-0.70 [facility] Comment on above: Performed By: #### 1 9123-9 #### JIMBO ANTHONY ([id number]) [facility] ([facility]) [address] [place], [place] [address] Immature granulocytes/100 WBC (Bld) 0.7 % Normal 0.0-0.9 [facility] Comment on above: Result Comment: Mira ture Granulocyte Count (IG) includes promyelocytes, myelocytes and metamyelocytes but does not include bands. Percent differential counts (%) should be interpreted in the context of the absolute cell counts (cells/UL). Performed By: #### 1 9123-9 #### JIMBO ANTHONY ([id number]) [facility] ([facility]) [address] [place] [address] 37012 Lymphocytes (Bld) [#/Vol] 1.50 x10*3/uL Normal 1.20-4.80 [facility] Comment on above: Performed By: #### 1 9123-9 #### JIMBO ANTHONY ([id number]) [facility] ([facility]) [address] [place] [address] 38448 Lymphocytes/100 WBC (Bld) 26.3 % Normal 13.0-44.0 [facility] Comment on above: Performed By: #### 1 9123-9 #### JIMBO ANTHONY ([id number]) [facility] ([facility]) [address] [place] [address] 05846 MCH (RBC) [Entitic mass] 28.4 pg Normal 26.0-34.0 [facility] Comment on above: Performed By: #### 1 9123-9 #### JIMBO ANTHONY ([id number]) [facility] ([facility]) [address] [place] [address] 89473 MCHC (RBC) [Mass/Vol] 32.1 g/dL Normal 32.0-36.0 [facility] Comment on above: Performed By: #### 1 9123-9 #### JIMBO ANTHONY ([id number]) [facility] ([facility]) [address] [place] [address] 30019 MCV (RBC) [Entitic vol] 89 fL Normal 80-100 [facility] Comment on above: Performed By: #### 1 9123-9 #### JIMBO ANTHONY ([id number]) [facility] ([facility]) [address] [place] [address] 43058 Monocytes (Bld) [#/Vol] 0.37 x10*3/uL Normal 0.10-1.00 [facility] Comment on above: Performed By: #### 1 9123-9 #### JIMBO ANTHONY ([id number]) [facility] ([facility]) [address] [place] [address] 84246 Monocytes/100 WBC (Bld) 6.5 % Normal 2.0-10.0 [facility] Comment on above: Performed By: #### 1 9123-9 #### JIMBO ANTHONY ([id number]) [facility] ([facility]) [address] [place] [address] 08722 Neutrophils (Bld) [#/Vol] 3.71 x10*3/uL Normal 1.20-7.70 [facility] Comment on above: Result Comment: Perc ent differential counts (%) should be interpreted in the context of the absolute cell counts (cells/uL). Performed By: #### 1 9123-9 #### JIMBO ANTHONY ([id number]) [facility] ([facility]) [address] [place] [address] 03647 Neutrophils/100 WBC (Bld) 65.0 % Normal 40.0-80.0 [facility] Comment on above: Performed By: #### 1 9123-9 #### JIMBO ANTHONY ([id number]) [facility] ([facility]) [address] [place] [address] 31952 Nucleated RBC/100 WBC (Bld) [Ratio] 0.0 /100 WBCs Normal 0.0-0.0 [facility] Comment on above: Performed By: #### 1 9123-9 #### JIMBO ANTHONY ([id number]) [facility] ([facility]) [address] [place] [address] 89420 Platelets (Bld) [#/Vol] 92 x10*3/uL Low 150-450 [facility] Comment on above: Result Comment: Plat elet count verified by smear review. Performed By: #### 1 9123-9 #### JIMBO ANTHONY ([id number]) [facility] ([facility]) [address] [place] [address] 83471 RBC (Bld) [#/Vol] 4.08 x10*6/uL Normal 4.00-5.20 [facility] Comment on above: Performed By: #### 1 9123-9 #### JIMBO ANTHONY ([id number]) [facility] ([facility]) [address] [place] [address] 89365 WBC (Bld) [#/Vol] 5.7 x10*3/uL Normal 4.4-11.3 [facility] Comment on above: Performed By: #### 1 9123-9 #### CHOI GABRIELLE ([id number]) [facility] ([facility]) [address] [place] [address] CT CERVICAL SPINE WO IV CONT RASTon 10-14-2023 CT CERVICAL SPINE WO IV CONTRAST Interpreted By: Ronni Pope, STUDY: CT CERVICAL SPINE WO IV CONTRAST; 10/14/2023 2:34 pm INDICATION: Signs/Symptoms:head injury; COMPARISON: 04/01/2022 ACCESSION NUMBER(S): [id number] ORDERING CLINICIAN: BALBIR TAVARES TECHNIQUE: Contiguous axial [...] Ronni Pope 10/14/2023 3:02 PM Dictation workstation: [id number] [facility] CT HEAD WO IV CONTRASTon CT HEAD WO IV CONTRAST Interpreted By: Ronni Pope, STUDY: BALBIR TAVARES; 10/14/2023 2:34 pm INDICATION: Persistent atypical headache, syncope COMPARISON: 10/11/2023 ACCESSION NUMBER(S): [id number] ORDERING CLINICIAN: BALBIR TAVARES TECHNIQUE: Contiguous axial [...] Ronni Pope 10/14/2023 3:22 PM Dictation workstation: [id number] Normal [facility] Comprehensive metabolic 2000 panelon 10-14-2023 Albumin BCP dye [Mass/Vol] 2.9 g/dL Low 3.4-5.0 [facility] Comment on above: Performed By: #### 1 9123-9 #### JIMBO ANTHONY ([id number]) [facility] ([facility]) [address] [place] [address] ALP [Catalytic activity/Vol] 121 U/L Normal 33-136 [facility] Comment on above: Performed By: #### 1 9123-9 #### JIMBO ANTHONY ([id number]) [facility] ([facility]) [address] [place] [address] ALT With P-5'-P [Catalytic activity/Vol] 10 U/L Normal 7-45 [facility] Comment on above: Result Comment: Stephany ents treated with Sulfasalazine may generate falsely decreased results for ALT. Performed By: #### 1 9123-9 #### JIMBO ANTHONY ([id number]) [facility] ([facility]) [facility] [place] [address] Anion gap [Moles/Vol] 10 mmol/L Normal 10-20 [facility] Comment on above: Performed By: #### 1 9123-9 #### JIMBO ANTHONY ([id number]) [facility] ([facility]) [address] [place] [address] 75113 AST With P-5'-P [Catalytic activity/Vol] 17 U/L Normal 9-39 [facility] Comment on above: Performed By: #### 1 9123-9 #### JIMBO ANTHONY ([id number]) [facility] ([facility]) [address] [place] [address] Bilirubin [Mass/Vol] 0.3 mg/dL Normal 0.0-1.2 [facility] Comment on above: Performed By: #### 1 9123-9 #### JIMBO ANTHONY ([id number]) [facility] ([facility]) [address] [place] [address] 14008 Calcium [Mass/Vol] 7.9 mg/dL Low 8.6-10.3 [facility] Comment on above: Performed By: #### 1 9123-9 #### JIMBO ANTHONY ([id number]) [facility] ([facility]) [address] [place] [address] 88389 Chloride [Moles/Vol] 103 mmol/L Normal 98-107 [facility] Comment on above: Performed By: #### 1 9123-9 #### JIMBO ANTHONY ([id number]) [facility] ([facility]) [address] [place] [address] CO2 [Moles/Vol] 26 mmol/L Normal 21-32 [facility] Comment on above: Performed By: #### 1 9123-9 #### JIMBO ANTHONY ([id number]) [facility] ([facility]) [address] [place] [address] Creatinine [Mass/Vol] 1.28 mg/dL High 0.50-1.05 [facility] Comment on above: Performed By: #### 1 9123-9 #### JIMBO ANTHONY ([id number]) [facility] ([facility]) [address] [place] [address] 72458 Glomerular filtration rate/1.73 sq M.predicted 46 mL/min/1.73m*2 Low >60 [facility] Comment on above: Result Comment: Calc ulations of estimated GFR are performed using the 2020 CKD-EPI Study Refit equation without the race variable for the IDMS-Traceable creatinine methods. https://jasn.asnjournals.org/content//ASN.04607 43840 Performed By: #### 1 9123-9 #### JIMBO ANTHONY ([id number]) [facility] ([facility]) [address] [place] [address] 57633 Glucose [Mass/Vol] 264 mg/dL High 74-99 [facility] Comment on above: Performed By: #### 1 9123-9 #### JIMBO ANTHONY ([id number]) [facility] ([facility]) [address] [place] [address] 71788 Potassium [Moles/Vol] 4.0 mmol/L Normal 3.5-5.3 [facility] Comment on above: Performed By: #### 1 9123-9 #### JIMBO ANTHONY ([id number]) [facility] ([facility]) [address] [place] [address] 43235 Protein [Mass/Vol] 6.1 g/dL Low 6.4-8.2 [facility] Comment on above: Performed By: #### 1 9123-9 #### JIMBO ANTHONY ([id number]) [facility] ([facility]) [address] [place] [address] 85106 Sodium [Moles/Vol] 135 mmol/L Low 136-145 [facility] Comment on above: Performed By: #### 1 9123-9 #### JIMBO ANTHONY ([id number]) [facility] ([facility]) [address] [place] [address] 70125 Urea nitrogen [Mass/Vol] 13 mg/dL Normal 6-23 [facility] Comment on above: Performed By: #### 1 9123-9 #### JIMBO ANTHONY ([id number]) [facility] ([facility]) [address] [place] [address] 23227 ECG 12-LEADon 10-14-2023 ECG 12-LEAD Ventricular Rate 73 Atrial Rate 73 P-R Interval 154 QRS Duration 64 Q-T Interval 350 QTC Calculation(Bazett) 385 P [place] 68 R [place] 12 T [place] 77 QRS Count 12 Q Onset 224 P Onset 147 P Offset 205 T Offset 399 QTC Fredericia 373 Diagnosis Normal sinus rhythm Low voltage QRS Nonspecific T wave abnormality Abnormal ECG When compared with ECG of 11-OCT-2023 15:14, (unconfirmed) No significant change was found See ED provider note for full interpretation and clinical correlation Confirmed by Marty Feliz ([id number]) on 10/22/2023 6:41:26 PM Normal [facility] Troponin I.cardiac panelon 0 10-14-2023 Tropinin I.cardiac panel High sensitivity method 7 ng/L Normal 0-13 [facility] Comment on above: Order Comment: Less [...] is performed using a differenttesting methodology at [facility] than at [facility]. Direct result comparisons should onlybe made within the same method. Performed By: #### 1 9123-9 #### JIMBO ANTHONY ([id number]) [facility] ([facility]) [facility] [place] [address] Urinalysis complete W Reflex Culture panel (U)on 10-14-2023 Appearance (U) Clear Normal Clear [facility] Comment on above: Performed By: #### 1 9123-9 #### JIMBO ANTHONY ([id number]) [facility] ([facility]) [facility] [place] [address] Bacteria Auto (Urine sed) [#/Area] 1+ /HPF Abnormal NONE SEEN [facility] Comment on above: Performed By: #### 1 9123-9 #### JIMBO ANTHONY ([id number]) [facility] ([facility]) [address] [place] [address] Bilirubin (U) [Mass/Vol] Negative Normal NEGATIVE [facility] Comment on above: Performed By: #### 1 9123-9 #### JIMBO ANTHONY ([id number]) [facility] ([facility]) [address] [place] [address] Color (U) Colorless Normal Light-Yellow , Yellow, Dark-Yellow [facility] Comment on above: Performed By: #### 1 9123-9 #### JIMBO ANTHONY ([id number]) [facility] ([facility]) [address] [place] [address] 52017 Epithelial cells.squamous Auto (Urine sed) [#/Area] 1-9 (SPARSE) Normal Reference range not established. [facility] Comment on above: Performed By: #### 1 9123-9 #### JIMBO ANTHONY ([id number]) [facility] ([facility]) [address] [place] [address] 00556 Glucose Auto test strip (U) [Mass/Vol] Normal Normal Normal [facility] Comment on above: Performed By: #### 1 9123-9 #### JIMBO ANTHONY ([id number]) [facility] ([facility]) [facility] [place] [address] Ketones (U) [Mass/Vol] Negative Normal NEGATIVE [facility] Comment on above: Performed By: #### 1 9123-9 #### JIMBO ANTHONY ([id number]) [facility] ([facility]) [address] [place] [address] 81733 Leukocyte esterase Auto test strip Ql (U) Negative Normal NEGATIVE [facility] Comment on above: Performed By: #### 1 9123-9 #### JIMBO ANTHONY ([id number]) [facility] ([facility]) [address] [place] [address] 54533 Mucus Auto (Urine sed) [#/Area] FEW Normal Reference range not established. [facility] Comment on above: Performed By: #### 1 9123-9 #### JIMBO ANTHONY ([id number]) [facility] ([facility]) [address] [place] [address] 45022 Nitrite Auto test strip Ql (U) Negative Normal NEGATIVE [facility] Comment on above: Performed By: #### 1 9123-9 #### JIMBO ANTHONY ([id number]) [facility] ([facility]) [address] [place] [address] pH (U) 6.5 [pH] Normal 5.0, 5.5, 6.0, 6.5, 7.0, 7.5, 8.0 [facility] Comment on above: Performed By: #### 1 9123-9 #### JIMBO ANTHONY ([id number]) [facility] ([facility]) [address] [place] [address] Protein (U) [Mass/Vol] Negative Normal NEGAT ABDELRAHMAN, 10 (TRACE), 20 (TRACE) [facility] Comment on above: Performed By: #### 1 9123-9 #### JIMBO ANTHONY ([id number]) [facility] ([facility]) [address] [place] [address] RBC (U) [#/Vol] 0.06 (1+) Abnormal NEGATIVE [facility] Comment on above: Performed By: #### 1 9123-9 #### JIMBO ANTHONY ([id number]) [facility] ([facility]) [address] [place] [address] RBC Auto (Urine sed) [#/Area] 3-5 Normal NONE, 1-2, 3-5 [facility] Comment on above: Performed By: #### 1 9123-9 #### JIMBO ANTHONY ([id number]) [facility] ([facility]) [address] [place] [address] Specific gravity (U) [Rel density] 1.008 Normal 1.005-1.035 [facility] Comment on above: Performed By: #### 1 9123-9 #### JIMBO ANTHONY ([id number]) [facility] ([facility]) [address] [place] [address] Urobilinogen (U) [Mass/Vol] Normal Normal Normal [facility] Comment on above: Performed By: #### 1 9123-9 #### JIMBO ANTHONY ([id number]) [facility] ([facility]) [facility] [place] [address] WBC Auto (Urine sed) [#/Area] 1-5 Normal 1-5, NONE [facility] Comment on above: Performed By: #### 1 9123-9 #### JIMBO ANTHONY ([id number]) [facility] ([facility]) [facility] [place] [address] XR CHEST 1 VIEWon 10-14-2023 XR CHEST 1 VIEW Interpreted By: Glen Crowley, STUDY: XR CHEST 1 VIEW 10/14/2023 3:12 pm INDICATION: Signs/Symptoms:syncop e COMPARISON: 10/11/2023 ACCESSION NUMBER(S): [id number] ORDERING CLINICIAN: BALBIR TAVARES TECHNIQUE: A single AP portable radiograph of the chest was obtained. FINDINGS: No focal infiltrate, pleural effusion or pneumothorax is identified. The cardiac silhouette is within normal limits for size. IMPRESSION: No focal infiltrate or pneumothorax is identified. MACRO: None. Signed by: Glen Crowley 10/14/2023 3:40 PM Dictation workstation: [address] XR FOREARM LEFT 2 VIEWSon XR FOREARM LEFT 2 VIEWS Interpreted By: Glen Crowley, STUDY: XR FOREARM LEFT 2 VIEWS 10/14/2023 3:12 pm INDICATION: Signs/Symptoms:pain after fall COMPARISON: None. ACCESSION NUMBER(S): [id number] ORDERING CLINICIAN: BALBIR TAVARES TECHNIQUE: Two views of the left forearm including AP and lateral projections were obtained. FINDINGS: There is no evidence of acute fracture or dislocation. The joint spaces are well preserved without significant degenerative changes. IMPRESSION: 1. No evidence of acute fracture or dislocation. MACRO: None. Signed by: Glen Crowley 10/14/2023 3:41 PM Dictation workstation: [address] Bacteria identifiedon 2023 Bacteria identified Cx Nom (U) Test: Urine Culture Specimen Source: Clean Catch/Voided Specimen Type: Urine Specimen Date: 10/11/2023 1543 Result Date: 10/13/2023 0745 Result Status: Final result Abnormal: No Resulting Lab: [facility] [id number] [place], [place] [id number] CULTURE No significant growth Normal [facility] Comment on above: Performed By: #### 6 30-4 ####UMU Rasheed ([id number])[facility] ([facility])[id number] [place] [address] CBC W Auto Differential pane l (Bld)on 10-11-2023 Basophils (Bld) [#/Vol] 0.03 x10*3/uL Normal 0.00-0.10 [facility] Comment on above: Performed By: #### 5 7021-8 ####JIMBO ANTHONY ([id number])[facility] ([facility])[address] [place] [address] 80778 Basophils/100 WBC (Bld) 0.5 % Normal 0.0-2.0 [facility] Comment on above: Performed By: #### 5 7021-8 ####JIMBO ANTHONY ([id number])[facility] ([facility])[address] [place] [address] 16996 Eosinophils (Bld) [#/Vol] 0.07 x10*3/uL Normal 0.00-0.70 [facility] Comment on above: Performed By: #### 5 7021-8 ####JIMBO ANTHONY ([id number])[facility] ([facility])[address] [place] [address] 96343 Eosinophils/100 WBC (Bld) 1.1 % Normal 0.0-6.0 [facility] Comment on above: Performed By: #### 5 7021-8 ####JIMBO ANTHONY ([id number])[facility] ([facility])[address] [place] [address] 13063 Erythrocyte distribution width (RBC) [Ratio] 13.9 % Normal 11.5-14.5 [facility] Comment on above: Performed By: #### 5 7021-8 ####JIMBO ANTHONY ([id number])[facility] ([facility])[address] [place] [address] 22326 Hematocrit (Bld) [Volume fraction] 38.4 % Normal 36.0-46.0 [facility] Comment on above: Performed By: #### 5 7021-8 ####JIMBO ANTHONY ([id number])[facility] ([facility])[address] [place] [address] 31320 Hemoglobin (Bld) [Mass/Vol] 12.6 g/dL Normal 12.0-16.0 [facility] Comment on above: Performed By: #### 5 7021-8 ####JIMBO ANTHONY ([id number])[facility] ([facility])[address] [place] [address] 74009 Immature granulocytes (Bld) [#/Vol] 0.04 x10*3/uL Normal 0.00-0.70 [facility] Comment on above: Performed By: #### 5 7021-8 ####JIMBO ANTHONY ([id number])[facility] ([facility])[address] [place] [address] 96288 Immature granulocytes/100 WBC (Bld) 0.6 % Normal 0.0-0.9 [facility] Comment on above: Result Comment: Mira ture Granulocyte Count (IG) includes promyelocytes, myelocytes and metamyelocytes but does not include bands. Percent differential counts (%) should be interpreted in the context of the absolute cell counts (cells/UL). Performed By: #### 5 7021-8 ####JIMBO ANTHONY ([id number])[facility] ([facility])[address] [place] [address] 80851 Lymphocytes (Bld) [#/Vol] 1.89 x10*3/uL Normal 1.20-4.80 [facility] Comment on above: Performed By: #### 5 7021-8 ####JIMBO ANTHONY ([id number])[facility] ([facility])[address] [place] [address] 27666 Lymphocytes/100 WBC (Bld) 29.2 % Normal 13.0-44.0 [facility] Comment on above: Performed By: #### 5 7021-8 ####JIMBO ATNHONY ([id number])[facility] ([facility])[address] [place] [address] 31885 MCH (RBC) [Entitic mass] 28.4 pg Normal 26.0-34.0 [facility] Comment on above: Performed By: #### 5 7021-8 ####JIMBO ANTHONY ([id number])[facility] ([facility])[address] [place] [address] 85181 MCHC (RBC) [Mass/Vol] 32.8 g/dL Normal 32.0-36.0 [facility] Comment on above: Performed By: #### 5 7021-8 ####JIMBO ANTHONY ([id number])[facility] ([facility])[address] [place] [address] 64172 MCV (RBC) [Entitic vol] 87 fL Normal 80-100 [facility] Comment on above: Performed By: #### 5 7021-8 ####JIMBO ANTHONY ([id number])[facility] ([facility])[address] [place] [address] 86030 Monocytes (Bld) [#/Vol] 0.40 x10*3/uL Normal 0.10-1.00 [facility] Comment on above: Performed By: #### 5 7021-8 ####JIMBO ANTHONY ([id number])[facility] ([facility])[address] [place] [address] 58763 Monocytes/100 WBC (Bld) 6.2 % Normal 2.0-10.0 [facility] Comment on above: Performed By: #### 5 7021-8 ####JIMBO ANTHONY ([id number])[facility] ([facility])[address] [place] [address] 32921 Neutrophils (Bld) [#/Vol] 4.05 x10*3/uL Normal 1.20-7.70 [facility] Comment on above: Result Comment: Perc ent differential counts (%) should be interpreted in the context of the absolute cell counts (cells/uL). Performed By: #### 5 7021-8 ####JIMBO ANTHONY ([id number])[facility] ([facility])[address] [place] [address] 94105 Neutrophils/100 WBC (Bld) 62.4 % Normal 40.0-80.0 [facility] Comment on above: Performed By: #### 5 7021-8 ####JIMBO ANTHONY ([id number])[facility] ([facility])[address] [place] [address] 04544 Nucleated RBC/100 WBC (Bld) [Ratio] 0.0 /100 WBCs Normal 0.0-0.0 [facility] Comment on above: Performed By: #### 5 7021-8 ####JIMBO ANTHONY ([id number])[facility] ([facility])[address] [place] [address] 69463 Platelets (Bld) [#/Vol] 108 x10*3/uL Low 150-450 [facility] Comment on above: Performed By: #### 5 7021-8 ####JIMBO ANTHONY ([id number])[facility] ([facility])[address] [place] [address] 43255 RBC (Bld) [#/Vol] 4.43 x10*6/uL Normal 4.00-5.20 [facility] Comment on above: Performed By: #### 5 7021-8 ####JIMBO ANTHONY ([id number])[facility] ([facility])[address] [place] [address] 39740 WBC (Bld) [#/Vol] 6.5 x10*3/uL Normal 4.4-11.3 [facility] Comment on above: Performed By: #### 5 7021-8 ####JIMBO ANTHONY ([id number])[facility] ([facility])[address] [place] [address] HEAD WO IV CONTRASTon CT HEAD WO IV CONTRAST Interpreted By: Anne-Marie Goodman, STUDY: CT HEAD WO IV CONTRAST; 10/11/2023 4:36 pm INDICATION: Signs/Symptoms:headac he, fall. COMPARISON: 04/01/2022 ACCESSION NUMBER(S): [id number] ORDERING CLINICIAN: MARTY PIERRE TECHNIQUE: Noncontrast axial [...] Anne-Marie Goodman 10/11/2023 4:56 PM Dictation workstation: [id number] [facility] Coagulation surface inducedo n 10-11-2023 aPTT Coag (PPP) [Time] 32 s Normal 27-38 [facility] Comment on above: Order Comment: The A PTT is no longer used for monitoring Unfractionated Heparin Therapy. For monitoring Heparin Therapy, use the Heparin Assay. Performed By: #### 1 4979-9 ####JIMBO ANTHONY ([id number])[facility] ([facility])[address] [place], [place] [address] Coagulation tissue factor in ducedon 10-11-2023 PT Coag (PPP) [Time] 11.7 s Normal 9.8-12.8 [facility] Comment on above: Performed By: #### 5 902-2 ####JIMBO ANTHONY ([id number])[facility] ([facility])[address] [place] [address] 38619 Comprehensive metabolic 2000 panelon 10-11-2023 Albumin BCP dye [Mass/Vol] 3.2 g/dL Low 3.4-5.0 [facility] Comment on above: Performed By: #### 2 4323-8 ####JIMBO ANTHONY ([id number])[facility] ([facility])[address] [place] [address] 02377 ALP [Catalytic activity/Vol] 140 U/L High 33-136 [facility] Comment on above: Performed By: #### 2 432-8 ####JIMBO ANTHONY ([id number])[facility] ([facility])[address] [place] [address] 52342 ALT With P-5'-P [Catalytic activity/Vol] 11 U/L Normal 7-45 [facility] Comment on above: Result Comment: Stephany ents treated with Sulfasalazine may generate falsely decreased results for ALT. Performed By: #### 2 4323-8 ####JIMBO ANTHONY ([id number])[facility] ([facility])[address] [place] [address] 85195 Anion gap [Moles/Vol] 10 mmol/L Normal 10-20 [facility] Comment on above: Performed By: #### 2 4322-8 ####JIMBO ANTHONY ([id number])[facility] ([facility])[address] [place] [address] 22271 AST With P-5'-P [Catalytic activity/Vol] 16 U/L Normal 9-39 [facility] Comment on above: Performed By: #### 2 4322-8 ####JIMBO ANTHONY ([id number])[facility] ([facility])[address] [place] [address] 29937 Bilirubin [Mass/Vol] 0.3 mg/dL Normal 0.0-1.2 [facility] Comment on above: Performed By: #### 2 4322-8 ####JIMBO ANTHONY ([id number])[facility] ([facility])[address] [place] [address] 45023 Calcium [Mass/Vol] 8.7 mg/dL Normal 8.6-10.3 [facility] Comment on above: Performed By: #### 2 4322-8 ####JIMBO ANTHONY ([id number])[facility] ([facility])[address] [place] [address] 25239 Chloride [Moles/Vol] 97 mmol/L Low 98-107 [facility] Comment on above: Performed By: #### 2 4323-8 ####JIMBO ANTHONY ([id number])[facility] ([facility])[address] [place] [address] CO2 [Moles/Vol] 30 mmol/L Normal 21-32 [facility] Comment on above: Performed By: #### 2 4323-8 ####JIMBO ANTHONY ([id number])[facility] ([facility] [place] [address] Creatinine [Mass/Vol] 1.20 mg/dL High 0.50-1.05 [facility] Comment on above: Performed By: #### 2 4323-8 ####JIMBO ANTHONY ([id number])[facility] ([facility])[address] [place] [address] 41092 Glomerular filtration rate/1.73 sq M.predicted 50 mL/min/1.73m*2 Low >60 [facility] Comment on above: Result Comment: Calc ulations of estimated GFR are performed using the 2020 CKD-EPI Study Refit equation without the race variable for the IDMS-Traceable creatinine methods. https://jasn.asnjournals.org/content/early//ASN.34011 87677 Performed By: #### 2 4323-8 ####JIMBO ANTHONY ([id number])[facility] ([facility])[address] [place] [address] 59163 Glucose [Mass/Vol] 360 mg/dL High 74-99 [facility] Comment on above: Performed By: #### 2 4323-8 ####JIMBO ANTHONY ([id number])[facility] ([facility])[address] [place] [address] 63508 Potassium [Moles/Vol] 4.3 mmol/L Normal 3.5-5.3 [facility] Comment on above: Performed By: #### 2 4323-8 ####JIMBO ANTHONY ([id number])[facility] ([facility])[address] [place] [address] 01802 Protein [Mass/Vol] 6.8 g/dL Normal 6.4-8.2 [facility] Comment on above: Performed By: #### 2 4323-8 ####JIMBO ANTHONY ([id number])[facility] ([facility])[address] [place] [address] Sodium [Moles/Vol] 133 mmol/L Low 136-145 [facility] Comment on above: Performed By: #### 2 4323-8 ####JIMBO ANTHONY ([id number])[facility] ([facility])[address] [place] [address] Urea nitrogen [Mass/Vol] 12 mg/dL Normal 6-23 [facility] Comment on above: Performed By: #### 2 4323-8 ####JIMBO ANTHONY ([id number])[facility] ([facility])[address] [place] [address] ECG 12-LEADon 10-11-2023 ECG 12-LEAD Ventricular Rate 70 Atrial Rate 70 P-R Interval 152 QRS Duration 66 Q-T Interval 394 QTC Calculation(Bazett) 425 P [place] 56 R [place] 0 T [place] 67 QRS Count 11 Q Onset 222 P Onset 146 P Offset 201 T Offset 419 QTC Fredericia 415 Diagnosis Normal sinus rhythm Low voltage QRS Borderline ECG When compared with ECG of 31-MAY-2023 07:34, No significant change was found See ED provider note for full interpretation and clinical correlation Confirmed by Nataliia Don ([id number]) on 10/20/2023 1:18:41 PM Normal [facility] Glucose Test strip manual (B ld) [Mass/Vol]on 10-11-2023 Glucose [Mass/Vol] 248 mg/dL High 74-99 [facility] Comment on above: Performed By: #### 2 341-6 ####JIMBO ANTHONY ([id number])[facility] ([facility])[address] [place], [place] [address] Lactateon 10-11-2023 Lactate [Moles/Vol] 1.4 mmol/L Normal 0.4-2.0 [facility] Comment on above: Order Comment: Venip uncture immediately after or during the administration of Metamizole may lead to falsely low results. Testing should be performed immediatelyprior to Metamizole dosing. Performed By: #### 2 524-7 ####JIMBO ANTHONY ([id number])[facility] ([facility])[address] [place] [address] 64038 Magnesiumon 10-11-2023 Magnesium [Mass/Vol] 1.45 mg/dL Low 1.60-2.40 [facility] Comment on above: Performed By: #### 1 9123-9 ####JIMBO ANTHONY ([id number])[facility] ([facility])[address] [place] [address] 42289 PT Coag (PPP) [Time]on 10-10 INR Coag (PPP) [Relative time] 1.0 Normal 0.9-1.1 [facility] Comment on above: Performed By: #### 5 902-2 ####JIMBO ANTHONY ([id number])[facility] ([facility])[address] [place] [address] SARS coronavirus 2 RNAon SARS-CoV-2 (COVID-19) RNA JACKIE+probe Ql (Resp) Not detected Normal Not Detected [facility] Comment on above: Order Comment: This assay [...] and has been validated for use at [facility]. Negative results do not preclude COVID-19 infections and should not be used as the sole basis for diagnosis, treatment, or other management decisions. Performed By: #### 9 4500-6 ####JIMBO ANTHONY ([id number])[facility] ([facility])[address] [place], [place] [address] Troponin I.cardiac panelon 0 10-11-2023 Tropinin I.cardiac panel High sensitivity method 8 ng/L Normal 0-13 [facility] Comment on above: Order Comment: Less [...] is performed using a differenttesting methodology at [facility] than at [facility]. Direct result comparisons should onlybe made within the same method. Performed By: #### 8 9577-1 ####JIMBO ANTHONY ([id number])[facility] ([facility])[address] [place] [address] Tropinin I.cardiac panel High sensitivity method 7 ng/L Normal 0-13 [facility] Comment on above: Order Comment: Less [...] is performed using a differenttesting methodology at [facility] than at [facility]. Direct result comparisons should onlybe made within the same method. Performed By: #### 8 9577-1 ####JIMBO ANTHONY ([id number])[facility] ([facility])[address] [place], [place] [address] Urinalysis complete W Reflex Culture panel (U)on 10-11-2023 Appearance (U) Clear Normal Clear [facility] Comment on above: Performed By: #### 5 8077-9 ####JIMBO ANTHONY ([id number])[facility] ([facility])[address] [place] [address] Bilirubin (U) [Mass/Vol] Negative Normal NEGATIVE [facility] Comment on above: Performed By: #### 5 8077-9 ####JIMBO ANTHONY ([id number])[facility] ([facility])[address] [place] [address] Color (U) Yellow Normal Light-Yellow , Yellow, Dark-Yellow [facility] Comment on above: Performed By: #### 5 8077-9 ####JIMBO ANTHONY ([id number])[facility] ([facility])[address] [place] [address] Glucose Auto test strip (U) [Mass/Vol] OVER (4+) Abnormal Normal [facility] Comment on above: Performed By: #### 5 8077-9 ####JIMBO ANTHONY ([id number])[facility] ([facility])[address] [place] [address] Ketones (U) [Mass/Vol] Negative Normal [facility]GATIVE [facility]: Performed By: #### 5 8077-9 ####JIMBO ANTHONY ([id number])[facility] ([facility])[address] [place] [address] 79171 Leukocyte esterase Auto test strip Ql (U) 75 Pat/???L Abnormal NEGATIVE [facility] Comment on above: Performed By: #### 5 8077-9 ####JIMBO ANTHONY ([id number])[facility] ([facility])[address] [place] [address] 66328 Nitrite Auto test strip Ql (U) Negative Normal NEGATIVE [facility] Comment on above: Performed By: #### 5 8077-9 ####JIMBO ANTHONY ([id number])[facility] ([facility])[address] [place] [address] 12036 pH (U) 6.5 [pH] Normal 5.0, 5.5, 6.0, 6.5, 7.0, 7.5, 8.0 [facility] Comment on above: Performed By: #### 5 8077-9 ####JIMBO ANTHONY ([id number])[facility] ([facility])[address] [place] [address] 33619 Protein (U) [Mass/Vol] 600 (3+) Abnormal NEGAT ABDELRAHMAN, 10 (TRACE), 20 (TRACE) [facility] Comment on above: Performed By: #### 5 8077-9 ####JIMBO ANTHONY ([id number])[facility] ([facility])[address] [place] [address] RBC (U) [#/Vol] 0.2 (2+) Abnormal NEGATIVE [facility] Comment on above: Performed By: #### 5 8077-9 ####JIMBO ANTHONY ([id number])[facility] ([facility])[address] [place] [address] 15151 Specific gravity (U) [Rel density] 1.027 Normal 1.005-1.035 [facility] Comment on above: Performed By: #### 5 8077-9 ####JIMBO ANTHONY ([id number])[facility] ([facility])[address] [place] [address] 73428 Urobilinogen (U) [Mass/Vol] 2 (1+) Abnormal Normal [facility] Comment on above: Result Comment: Due [...] Performed By: #### 5 8077-9 ####JIMBO ANTHONY ([id number])[facility] ([facility])[address] [place] [address] 75897 Urinalysis microscopic panel Auto Ql (U)on 10-11-2023 Bacteria Auto (Urine sed) [#/Area] 2+ /HPF Abnormal NONE SEEN [facility] Comment on above: Performed By: #### 5 3315-8 ####JIMBO ANTHONY ([id number])[facility] ([facility])[address] [place] [address] Epithelial cells.squamous Auto (Urine sed) [#/Area] 10-25 (FEW) Normal Reference range not established. [facility] Comment on above: Performed By: #### 5 3315-8 ####JIMBO ANTHONY ([id number])[facility] ([facility])[address] [place] [address] Mucus Auto (Urine sed) [#/Area] FEW Normal Reference range not established. [facility] Comment on above: Performed By: #### 5 3315-8 ####JIMBO ANTHONY ([id number])[facility] ([facility])[address] [place] [address] RBC Auto (Urine sed) [#/Area] >20 Abnormal NONE, 1-2, 3-5 [facility] Comment on above: Performed By: #### 5 3315-8 ####JIMBO ANTHONY ([id number])[facility] ([facility])[address] [place], [place] [address] WBC Auto (Urine sed) [#/Area] 6-10 Abnormal 1-5, NONE [facility] Comment on above: Performed By: #### 5 3315-8 ####JIMBO ANTHONY ([id number])[facility] ([facility])[address] [place], [place] [address] XR CHEST 1 VIEWon 10-11-2023 XR CHEST 1 VIEW Interpreted By: Barb Bruno, STUDY: XR CHEST 1 VIEW; 10/11/2023 3:55 pm INDICATION: Signs/Symptoms:Chest Pain. COMPARISON: 06/11/2023 ACCESSION NUMBER(S): [id number] ORDERING CLINICIAN: MARTY PIERRE FINDINGS: The heart is normal in size. There is no consolidation or pleural fluid. The mediastinum and bones unremarkable. COMPARISON OF FINDING: The chest is similar. IMPRESSION: No acute cardiopulmonary disease. MACRO: none Signed by: Barb Bruno 10/11/2023 4:03 PM Dictation workstation: [id number] [facility] Glucose Test strip manual (B ld) [Mass/Vol]on 09-30-2023 Glucose [Mass/Vol] 412 mg/dL High 74-99 [facility] Comment on above: Performed By: #### 2 341-6 ####CHOI GABRIELLE ([id number])[facility] ([facility])[address] [place] [address] XR KNEE LEFT 4+ VIEWSon 09-10 XR KNEE LEFT 4+ VIEWS Interpreted By: Naresh Singh, STUDY: XR KNEE LEFT 4+ VIEWS; ; 09/30/2023 11:02 am INDICATION: Signs/Symptoms:S/P knee sugery. COMPARISON: 07/22/2023 ACCESSION NUMBER(S): [id number] ORDERING CLINICIAN: SHADIA DALEY FINDINGS: Left knee, four views Total knee arthroplasty in place. No periprosthetic fracture is seen. There is a small effusion. No dislocation IMPRESSION: No hardware failure about the total knee arthroplasty MACRO: None Signed by: Naresh Singh 10/01/2023 11:10 AM Dictation workstation: [id number] [facility] Comment on above: Order Comment: Date of Surgery 06/10/2023 XR Knee - left 3 Viewson Uncomplicated appearance of a total left knee arthroplasty. MACRO: None Signed by: Prudencio Kemp 07/23/2023 8:44 AM Dictation workstation: [id number] [facility] Interpreted By: Prudencio Kemp, STUDY: XR KNEE LEFT 3 VIEWS; ; 07/22/2023 9:09 am INDICATION: Signs/Symptoms:pain. COMPARISON: None. ACCESSION NUMBER(S): [id number] ORDERING CLINICIAN: FREDY STYLES FINDINGS: Three views of the left knee. Status post total left knee arthroplasty. No perihardware lucency or fracture to suggest failure. Mild tricompartmental degenerative changes of the right knee. No acute fracture. No dislocation. MM[facility] Prudencio Kemp MD - 07/23/2023 Interpreted By: Prudencio Kemp, STUDY: XR KNEE LEFT 3 VIEWS; ; 07/22/2023 9:09 am INDICATION: Signs/Symptoms:pain. COMPARISON: None. ACCESSION NUMBER(S): [id number] ORDERING CLINICIAN: FREDY STYLES FINDINGS: Three views of the left knee. Status post total left knee arthroplasty. No perihardware lucency or fracture to suggest failure. Mild tricompartmental degenerative changes of the right knee. No acute fracture. No dislocation. IMPRESSION: Uncomplicated appearance of a total left knee arthroplasty. MACRO: None Signed by: Prudencio Kemp 07/23/2023 8:44 AM Dictation workstation: [id number] [facility] Work Phone: XR Knee - left 3 ViewsOrdere d By: Prudencio Kemp on 07-23-2023 [facility] Work Phone: XR KNEE LEFT 3 VIEWSon 07-21 XR KNEE LEFT 3 VIEWS Interpreted By: Prudencio Kemp, STUDY: XR KNEE LEFT 3 VIEWS; ; 07/22/2023 9:09 am INDICATION: Signs/Symptoms:pain. COMPARISON: None. ACCESSION NUMBER(S): [id number] ORDERING CLINICIAN: FREDY STYLES FINDINGS: Three views of the left knee. Status post total left knee arthroplasty. No perihardware lucency or fracture to suggest failure. Mild tricompartmental degenerative changes of the right knee. No acute fracture. No dislocation. IMPRESSION: Uncomplicated appearance of a total left knee arthroplasty. MACRO: None Signed by: Prudencio Kemp 07/23/2023 8:44 AM Dictation workstation: [id number] [facility] XR Knee - left 3 Viewson Radiology Study observation (narrative) [facility] Work Phone: XR Knee - left 3 Viewson No hardware failure about the left total knee arthroplasty. Normal radiographs of the right knee MACRO: None Signed by: Naresh Singh 06/18/2023 9:39 AM Dictation workstation: [id number] [facility] Interpreted By: Naresh Singh, STUDY: XR KNEE LEFT 3 VIEWS; ; 06/17/2023 9:28 am INDICATION: Signs/Symptoms:POST OP CARE. COMPARISON: 04/04/2023 ACCESSION NUMBER(S): [id number] ORDERING CLINICIAN: FREDY STYLES FINDINGS: Bilateral knees, three views of the left and two views of the right Left total knee arthroplasty in place. There is a moderate-sized effusion. There is no periprosthetic fracture or lucency. There is no dislocation. No abnormality seen in the right knee Naresh Joseph MD - 06/18/2023 Interpreted By: Naresh Singh, STUDY: XR KNEE LEFT 3 VIEWS; ; 06/17/2023 9:28 am INDICATION: Signs/Symptoms:POST OP CARE. COMPARISON: 04/04/2023 ACCESSION NUMBER(S): [id number] ORDERING CLINICIAN: FREDY STYLES FINDINGS: Bilateral knees, [...] Naresh Singh 06/18/2023 9:39 AM Dictation workstation: [id number] [facility] Work Phone: XR Knee - left 3 ViewsOrdere d By: Naresh Singh on 06-18-2023 [facility] Work Phone: XR KNEE LEFT 3 VIEWSon 06-16 XR KNEE LEFT 3 VIEWS Interpreted By: Naresh Singh, STUDY: XR KNEE LEFT 3 VIEWS; ; 06/17/2023 9:28 am INDICATION: Signs/Symptoms:POST OP CARE. COMPARISON: 04/04/2023 ACCESSION NUMBER(S): [id number] ORDERING CLINICIAN: FREDY STYLES FINDINGS: Bilateral knees, [...] Naresh Singh 06/18/2023 9:39 AM Dictation workstation: [id number] [facility] Comment on above: Order Comment: Bilat eral AP and Bilat Keno, Unilateral LAT, WITH MARKER BALL. XR Knee - left 3 Viewson Radiology Study observation (narrative) [facility] Work Phone: Basic metabolic 2000 panelon 06-12-2023 Anion gap [Moles/Vol] 10 mmol/L 10 - 2 0 mmol/L [facility] Calcium [Mass/Vol] 7.9 mg/dL Low 8.6 - 10. 3 mg/dL [facility] Chloride [Moles/Vol] 96 mmol/L Low 98 - 10 7 mmol/L [facility] CO2 [Moles/Vol] 30 mmol/L 21 - 32 mmol/L [facility] Creatinine [Mass/Vol] 1.05 mg/dL 0.50 - 1.05 mg/dL [facility] GFR/1.73 sq M.predicted among non-blacks MDRD (S/P/Bld) [Vol rate/Area] 59 mL/min/{1.73_m2} Low - PINF [facility] Comment on above: Calculations of roxann mated GFR are performed using the 2020 CKD-EPI Study Refit equation without the race variable for the IDMS-Traceable creatinine methods. https://jasn.asnjournals.org/content/early//ASN.26116 15082 Glucose [Mass/Vol] 195 mg/dL High 74 - 99 mg/dL [facility] Interpretation and review of laboratory results Abnormal [facility] Potassium [Moles/Vol] 4.5 mmol/L 3.5 - 5.3 mmol/L [facility] Sodium [Moles/Vol] 131 mmol/L Low 136 - 145 mmol/L [facility] Urea nitrogen [Mass/Vol] 16 mg/dL 6 - 23 mg/dL [facility] Anion gap [Moles/Vol] 10 mmol/L Normal 10-20 [facility] Comment on above: Performed By: #### 5 8077-9 #### JIMBO ANTHONY ([id number]) [facility] ([facility]) [address] [place] [address] 80336 Calcium [Mass/Vol] 7.9 mg/dL Low 8.6-10.3 [facility] Comment on above: Performed By: #### 5 8077-9 #### JIMBO ANTHONY ([id number]) [facility] ([facility]) [address] [place] [address] 24977 Chloride [Moles/Vol] 96 mmol/L Low 98-107 [facility] Comment on above: Performed By: #### 5 8077-9 #### JIMBO ANTHONY ([id number]) [facility] ([facility]) [address] [place] [address] 34461 CO2 [Moles/Vol] 30 mmol/L Normal 21-32 [facility] Comment on above: Performed By: #### 5 8077-9 #### JIMBO ANTHONY ([id number]) [facility] ([facility]) [address] [place] [address] 66009 Creatinine [Mass/Vol] 1.05 mg/dL Normal 0.50-1.05 [facility] Comment on above: Performed By: #### 5 8077-9 #### JIMBO ANTHONY ([id number]) [facility] ([facility]) [address] [place] [address] 23073 Glomerular filtration rate/1.73 sq M.predicted 59 mL/min/1.73m*2 Low >60 [facility] Comment on above: Result Comment: Calc ulations of estimated GFR are performed using the 2020 CKD-EPI Study Refit equation without the race variable for the IDMS-Traceable creatinine methods. https://jasn.asnjournals.org/content/early/ASN.26530 02818 Performed By: #### 5 8077-9 #### JIMBO ANTHONY ([id number]) [facility] ([facility]) [address] [place] [address] Glucose [Mass/Vol] 195 mg/dL High 74-99 [facility] Comment on above: Performed By: #### 5 8077-9 #### JIMBO ANTHONY ([id number]) [facility] ([facility]) [address] [place] [address] 07680 Potassium [Moles/Vol] 4.5 mmol/L Normal 3.5-5.3 [facility] Comment on above: Performed By: #### 5 8077-9 #### JIMBO ANTHONY ([id number]) [facility] ([facility]) [address] [place] [address] Sodium [Moles/Vol] 131 mmol/L Low 136-145 [facility] Comment on above: Performed By: #### 5 8077-9 #### JIMBO ANTHONY ([id number]) [facility] ([facility]) [address] [place], [place] [id number] Urea nitrogen [Mass/Vol] 16 mg/dL Normal 6-23 [facility] Comment on above: Performed By: #### 5 8077-9 #### JIMBO ANTHONY ([id number]) [facility] ([facility]) [address] [place] [address] CBC panel Auto (Bld)on 06-11 Erythrocyte distribution width (RBC) [Ratio] 13.5 % 11.5 - 14.5 % [facility] Hematocrit (Bld) [Volume fraction] 32.2 % Low 36.0 - 46.0 % [facility] Hemoglobin (Bld) [Mass/Vol] 10.6 g/dL Low 12.0 - 16.0 g/dL [facility] Interpretation and review of laboratory results Abnormal [facility] MCH (RBC) [Entitic mass] 29.9 pg 26.0 - 34.0 pg [facility] MCHC (RBC) [Mass/Vol] 32.9 g/dL 32.0 - 36.0 g/dL [facility] MCV (RBC) [Entitic vol] 91 fL 80 - 100 fL [facility] Nucleated RBC/100 WBC (Bld) [Ratio] 0.0 % [facility] Platelets (Bld) [#/Vol] 90 10*3/uL Low [facility] RBC (Bld) [#/Vol] 3.54 10*6/uL Low [facility] WBC (Bld) [#/Vol] 9.5 10*3/uL [facility] Erythrocyte distribution width (RBC) [Ratio] 13.5 % Normal 11.5-14.5 [facility] Comment on above: Performed By: #### 5 8077-9 #### JIMBO ANTHONY ([id number]) [facility] ([facility]) [address] [place] [address] Hematocrit (Bld) [Volume fraction] 32.2 % Low 36.0-46.0 [facility] Comment on above: Performed By: #### 5 8077-9 #### JIMBO ANTHONY ([id number]) [facility] ([facility]) [address] [place] [address] Hemoglobin (Bld) [Mass/Vol] 10.6 g/dL Low 12.0-16.0 [facility] Comment on above: Performed By: #### 5 8077-9 #### JIMBO ANTHONY ([id number]) [facility] ([facility]) [address] [place] [address] 67617 MCH (RBC) [Entitic mass] 29.9 pg Normal 26.0-34.0 [facility] Comment on above: Performed By: #### 5 8077-9 #### JIMBO ANTHONY ([id number]) [facility] ([facility]) [address] [place] [address] 42099 MCHC (RBC) [Mass/Vol] 32.9 g/dL Normal 32.0-36.0 [facility] Comment on above: Performed By: #### 5 8077-9 #### JIMBO ANTHONY ([id number]) [facility] ([facility]) [address] [place] [address] 16449 MCV (RBC) [Entitic vol] 91 fL Normal 80-100 [facility] Comment on above: Performed By: #### 5 8077-9 #### JIMBO ANTHONY ([id number]) [facility] ([facility]) [address] [place] [address] 16269 Nucleated RBC/100 WBC (Bld) [Ratio] 0.0 /100 WBCs Normal 0.0-0.0 [facility] Comment on above: Performed By: #### 5 8077-9 #### JIMBO ANTHONY ([id number]) [facility] ([facility]) [address] [place] [address] 53505 Platelets (Bld) [#/Vol] 90 x10*3/uL Low 150-450 [facility] Comment on above: Performed By: #### 5 8077-9 #### JIMBO ANTHONY ([id number]) [facility] ([facility]) [address] [place] [address] 50877 RBC (Bld) [#/Vol] 3.54 x10*6/uL Low 4.00-5.20 [facility] Comment on above: Performed By: #### 5 8077-9 #### JIMBO ANTHONY ([id number]) [facility] ([facility]) [address] [place] [address] 10851 WBC (Bld) [#/Vol] 9.5 x10*3/uL Normal 4.4-11.3 [facility] Comment on above: Performed By: #### 5 8077-9 #### JIMBO ANTHONY ([id number]) [facility] ([facility]) [address] [place] [address] 79668 Glucose Test strip manual (B ld) [Mass/Vol]on 06-12-2023 Glucose [Mass/Vol] 247 mg/dL High 74 - 99 mg/dL [facility] Interpretation and review of laboratory results Abnormal [facility] Glucose [Mass/Vol] 247 mg/dL High 74-99 [facility] Comment on above: Performed By: #### 2 341-6 ####JIMBO ANTHONY ([id number])[facility] ([facility])[address] [place] [address] Glucose [Mass/Vol] 179 mg/dL High 74 - 99 mg/dL [facility] Interpretation and review of laboratory results Abnormal [facility] Glucose [Mass/Vol] 179 mg/dL High 74-99 [facility] Comment on above: Performed By: #### 5 8077-9 #### CHOI GABRIELLE ([id number]) [facility] ([facility]) [address] [place] [address] Basic metabolic 2000 panelon 06-11-2023 Anion gap [Moles/Vol] 10 mmol/L 10 - 2 0 mmol/L [facility] Calcium [Mass/Vol] 7.8 mg/dL Low 8.6 - 10. 3 mg/dL [facility] Chloride [Moles/Vol] 98 mmol/L 98 - 10 7 mmol/L [facility] CO2 [Moles/Vol] 27 mmol/L 21 - 32 mmol/L [facility] Creatinine [Mass/Vol] 1.33 mg/dL High 0.50 - 1.05 mg/dL [facility] GFR/1.73 sq M.predicted among non-blacks MDRD (S/P/Bld) [Vol rate/Area] 44 mL/min/{1.73_m2} Low - PINF [facility] Comment on above: Calculations of roxann mated GFR are performed using the 2020 CKD-EPI Study Refit equation without the race variable for the IDMS-Traceable creatinine methods. https://jasn.asnjournals.org/content/early/ASN.46567 30953 Glucose [Mass/Vol] 269 mg/dL High 74 - 99 mg/dL [facility] Interpretation and review of laboratory results Abnormal [facility] Potassium [Moles/Vol] 5.4 mmol/L High 3.5 - 5.3 mmol/L [facility] Sodium [Moles/Vol] 130 mmol/L Low 136 - 145 mmol/L [facility] Urea nitrogen [Mass/Vol] 17 mg/dL 6 - 23 mg/dL [facility] Anion gap [Moles/Vol] 10 mmol/L Normal 10-20 [facility] Comment on above: Performed By: #### 5 8077-9 #### JIMBO ANTHONY ([id number]) [facility] ([facility]) [address] [place] [address] 89785 Calcium [Mass/Vol] 7.8 mg/dL Low 8.6-10.3 [facility] Comment on above: Performed By: #### 5 8077-9 #### JIMBO ANTHONY ([id number]) [facility] ([facility]) [address] [place] [address] 02930 Chloride [Moles/Vol] 98 mmol/L Normal 98-107 [facility] Comment on above: Performed By: #### 5 8077-9 #### JIMBO ANTHONY ([id number]) [facility] ([facility]) [address] [place] [id number] CO2 [Moles/Vol] 27 mmol/L Normal 21-32 [facility] Comment on above: Performed By: #### 5 8077-9 #### JIMBO ANTHONY ([id number]) [facility] ([facility]) [address] [place] [id number] Creatinine [Mass/Vol] 1.33 mg/dL High 0.50-1.05 [facility] Comment on above: Performed By: #### 5 8077-9 #### JIMBO ANTHONY ([id number]) [facility] ([facility]) [address] [place] [address] 90745 Glomerular filtration rate/1.73 sq M.predicted 44 mL/min/1.73m*2 Low >60 [facility] Comment on above: Result Comment: Calc ulations of estimated GFR are performed using the 2020 CKD-EPI Study Refit equation without the race variable for the IDMS-Traceable creatinine methods. https://jasn.asnjournals.org/content//ASN.59013 04841 Performed By: #### 5 8077-9 #### JIMBO ANTHONY ([id number]) [facility] ([facility]) [address] [place] [address] Glucose [Mass/Vol] 269 mg/dL High 74-99 [facility] Comment on above: Performed By: #### 5 8077-9 #### JIMBO ANTHONY ([id number]) [facility] ([facility]) [facility] [place] [address] Potassium [Moles/Vol] 5.4 mmol/L High 3.5-5.3 [facility] Comment on above: Performed By: #### 5 8077-9 #### JIMBO ANTHONY ([id number]) [facility] ([facility]) [address] [place] [address] 18491 Sodium [Moles/Vol] 130 mmol/L Low 136-145 [facility] Comment on above: Performed By: #### 5 8077-9 #### JIMBO ANTHONY ([id number]) [facility] ([facility]) [address] [place] [address] 05416 Urea nitrogen [Mass/Vol] 17 mg/dL Normal 6-23 [facility] Comment on above: Performed By: #### 5 8077-9 #### JIMBO ANTHONY ([id number]) [facility] ([facility]) [address] [place] [address] 92692 Anion gap [Moles/Vol] 10 mmol/L 10 - 2 0 mmol/L [facility] Calcium [Mass/Vol] 7.5 mg/dL Low 8.6 - 10. 3 mg/dL [facility] Chloride [Moles/Vol] 97 mmol/L Low 98 - 10 7 mmol/L [facility] CO2 [Moles/Vol] 28 mmol/L 21 - 32 mmol/L [facility] Creatinine [Mass/Vol] 1.30 mg/dL High 0.50 - 1.05 mg/dL [facility] GFR/1.73 sq M.predicted among non-blacks MDRD (S/P/Bld) [Vol rate/Area] 45 mL/min/{1.73_m2} Low - PINF [facility] Comment on above: Calculations of roxann mated GFR are performed using the 2020 CKD-EPI Study Refit equation without the race variable for the IDMS-Traceable creatinine methods. https://jasn.asnjournals.org/content//ASN.44886 07653 Glucose [Mass/Vol] 333 mg/dL High 74 - 99 mg/dL [facility] Interpretation and review of laboratory results Abnormal [facility] Potassium [Moles/Vol] 5.8 mmol/L High 3.5 - 5.3 mmol/L [facility] Sodium [Moles/Vol] 129 mmol/L Low 136 - 145 mmol/L [facility] Urea nitrogen [Mass/Vol] 14 mg/dL 6 - 23 mg/dL [facility] Anion gap [Moles/Vol] 10 mmol/L Normal 10-20 [facility] Comment on above: Performed By: #### 5 8077-9 #### JIMBO ANTHONY ([id number]) [facility] ([facility]) [address] [place] [address] 57331 Calcium [Mass/Vol] 7.5 mg/dL Low 8.6-10.3 [facility] Comment on above: Performed By: #### 5 8077-9 #### JIMBO ANTHONY ([id number]) [facility] ([facility]) [facility] [place] [address] Chloride [Moles/Vol] 97 mmol/L Low 98-107 [facility] Comment on above: Performed By: #### 5 8077-9 #### JIMBO ANTHONY ([id number]) [facility] ([facility]) [facility] [place] [address] CO2 [Moles/Vol] 28 mmol/L Normal 21-32 [facility] Comment on above: Performed By: #### 5 8077-9 #### JIMBO ANTHONY ([id number]) [facility] ([facility]) [facility] [place] [address] Creatinine [Mass/Vol] 1.30 mg/dL High 0.50-1.05 [facility] Comment on above: Performed By: #### 5 8077-9 #### JIMBO ANTHONY ([id number]) [facility] ([facility]) [facility] [place] [address] Glomerular filtration rate/1.73 sq M.predicted 45 mL/min/1.73m*2 Low >60 [facility] Comment on above: Result Comment: Calc ulations of estimated GFR are performed using the 2020 CKD-EPI Study Refit equation without the race variable for the IDMS-Traceable creatinine methods. https://jasn.asnjournals.org/content/early//ASN.43103 81295 Performed By: #### 5 8077-9 #### JIMBO ANTHONY ([id number]) [facility] ([facility]) [address] [place] [address] 65594 Glucose [Mass/Vol] 333 mg/dL High 74-99 [facility] Comment on above: Performed By: #### 5 8077-9 #### JIMBO ANTHONY ([id number]) [facility] ([facility]) [address] [place] [address] 87105 Potassium [Moles/Vol] 5.8 mmol/L High 3.5-5.3 [facility] Comment on above: Performed By: #### 5 8077-9 #### IJMBO ANTHONY ([id number]) [facility] ([facility]) [address] [place] [address] 76293 Sodium [Moles/Vol] 129 mmol/L Low 136-145 [facility] Comment on above: Performed By: #### 5 8077-9 #### JIMBO ANTHONY ([id number]) [facility] ([facility]) [address] [place] [address] 97812 Urea nitrogen [Mass/Vol] 14 mg/dL Normal 6-23 [facility] Comment on above: Performed By: #### 5 8077-9 #### JIMBO ANTHONY ([id number]) [facility] ([facility]) [address] [place] [address] 86717 CBC panel Auto (Bld)on 06-10 Erythrocyte distribution width (RBC) [Ratio] 13.6 % 11.5 - 14.5 % [facility] Hematocrit (Bld) [Volume fraction] 35.2 % Low 36.0 - 46.0 % [facility] Hemoglobin (Bld) [Mass/Vol] 11.4 g/dL Low 12.0 - 16.0 g/dL [facility] Interpretation and review of laboratory results Abnormal [facility] MCH (RBC) [Entitic mass] 30.0 pg 26.0 - 34.0 pg [facility] MCHC (RBC) [Mass/Vol] 32.4 g/dL 32.0 - 36.0 g/dL [facility] MCV (RBC) [Entitic vol] 93 fL 80 - 100 fL [facility] Nucleated RBC/100 WBC (Bld) [Ratio] 0.0 % [facility] Platelets (Bld) [#/Vol] 117 10*3/uL Low [facility] RBC (Bld) [#/Vol] 3.80 10*6/uL Low [facility] WBC (Bld) [#/Vol] 10.7 10*3/uL [facility] Erythrocyte distribution width (RBC) [Ratio] 13.6 % Normal 11.5-14.5 [facility] Comment on above: Performed By: #### 5 8077-9 #### JMIBO ANTHONY ([id number]) [facility] ([facility]) [address] [place] [address] Hematocrit (Bld) [Volume fraction] 35.2 % Low 36.0-46.0 [facility] Comment on above: Performed By: #### 5 8077-9 #### JIMBO ANTHONY ([id number]) [facility] ([facility]) [address] [place] [address] 36761 Hemoglobin (Bld) [Mass/Vol] 11.4 g/dL Low 12.0-16.0 [facility] Comment on above: Performed By: #### 5 8077-9 #### JIMBO ANTHONY ([id number]) [facility] ([facility]) [address] [place] [address] 86758 MCH (RBC) [Entitic mass] 30.0 pg Normal 26.0-34.0 [facility] Comment on above: Performed By: #### 5 8077-9 #### JIMBO ANTHONY ([id number]) [facility] ([facility]) [address] [place] [address] 66810 MCHC (RBC) [Mass/Vol] 32.4 g/dL Normal 32.0-36.0 [facility] Comment on above: Performed By: #### 5 8077-9 #### JIMBO ANTHONY ([id number]) [facility] ([facility]) [address] [place] [address] 16709 MCV (RBC) [Entitic vol] 93 fL Normal 80-100 [facility] Comment on above: Performed By: #### 5 8077-9 #### JIMBO ANTHONY ([id number]) [facility] ([facility]) [address] [place] [address] 72726 Nucleated RBC/100 WBC (Bld) [Ratio] 0.0 /100 WBCs Normal 0.0-0.0 [facility] Comment on above: Performed By: #### 5 8077-9 #### JIMBO ANTHONY ([id number]) [facility] ([facility]) [address] [place] [address] 05885 Platelets (Bld) [#/Vol] 117 x10*3/uL Low 150-450 [facility] Comment on above: Performed By: #### 5 8077-9 #### JIMBO ANTHONY ([id number]) [facility] ([facility]) [address] [place] [address] 05071 RBC (Bld) [#/Vol] 3.80 x10*6/uL Low 4.00-5.20 [facility] Comment on above: Performed By: #### 5 8077-9 #### JIMBO ANTHONY ([id number]) [facility] ([facility]) [address] [place] [address] 53669 WBC (Bld) [#/Vol] 10.7 x10*3/uL Normal 4.4-11.3 [facility] Comment on above: Performed By: #### 5 8077-9 #### JIMBO ANTHONY ([id number]) [facility] ([facility]) [address] [place] [address] 56307 Glucose Test strip manual (B ld) [Mass/Vol]on 06-11-2023 Glucose [Mass/Vol] 187 mg/dL High 74 - 99 mg/dL [facility] Interpretation and review of laboratory results Abnormal [facility] Glucose [Mass/Vol] 187 mg/dL High 74-99 [facility] Comment on above: Performed By: #### 5 8077-9 #### JIMBO ANTHONY ([id number]) [facility] ([facility]) [address] [place] [address] 64862 Glucose [Mass/Vol] 192 mg/dL High 74 - 99 mg/dL [facility] Interpretation and review of laboratory results Abnormal [facility] Glucose [Mass/Vol] 192 mg/dL High 74-99 [facility] Comment on above: Performed By: #### 5 8077-9 #### JIMBO ANTHONY ([id number]) [facility] ([facility]) [address] [place] [address] 11733 Glucose [Mass/Vol] 246 mg/dL High 74 - 99 mg/dL [facility] Interpretation and review of laboratory results Abnormal [facility] Glucose [Mass/Vol] 246 mg/dL High 74-99 [facility] Comment on above: Performed By: #### 5 8077-9 #### JIMBO ANTHONY ([id number]) [facility] ([facility]) [address] [place] [address] 59676 Glucose [Mass/Vol] 271 mg/dL High 74 - 99 mg/dL [facility] Comment on above: RN/ NOTIFIED Interpretation and review of laboratory results Abnormal [facility] Glucose [Mass/Vol] 271 mg/dL High 74-99 [facility] Comment on above: Result Comment: RN/Allan Thomas NOTIFIED Performed By: #### 5 8077-9 #### CHOI MARILYNLI ([id number]) [facility] ([facility]) [address] [place] [address] XR CHEST 2 VIEWSon 4 XR CHEST 2 VIEWS Interpreted By: Jono Andrade, STUDY: XR CHEST 2 VIEWS; 06/11/2023 4:44 pm INDICATION: Signs/Symptoms:hypoxi a. COMPARISON: 05/31/2023 ACCESSION NUMBER(S): [id number] ORDERING CLINICIAN: JULY MORALES FINDINGS: The cardiac silhouette is stable in size. There is blunting of the costophrenic angle posteriorly compatible with small pleural effusion. No pneumothorax. 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 IMPRESSION: Blunting of costophrenic angle posteriorly compatible with small pleural effusion. MACRO: None Signed by: Jono Andrade 06/11/2023 10:44 PM Dictation workstation: [id number] [facility] XR Chest 2 Viewson 4 Blunting of costophrenic angle posteriorly compatible with small pleural effusion. MACRO: None Signed by: Jono Andrade 06/11/2023 10:44 PM Dictation workstation: [id number] [facility] Interpreted By: Jono Andrade, STUDY: XR CHEST 2 VIEWS; 06/11/2023 4:44 pm INDICATION: Signs/Symptoms:hypoxi a. COMPARISON: 05/31/2023 ACCESSION NUMBER(S): [id number] ORDERING CLINICIAN: JULY MORALES FINDINGS: The cardiac silhouette is stable in size. There is blunting of the costophrenic angle posteriorly compatible with small pleural effusion. No pneumothorax. 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 [facility] MMODAL Jono Andrade MD - 06/11/2023 Interpreted By: Jono Andrade, STUDY: XR CHEST 2 VIEWS; 06/11/2023 4:44 pm INDICATION: Signs/Symptoms:hypoxi a. COMPARISON: 05/31/2023 ACCESSION NUMBER(S): [id number] ORDERING CLINICIAN: JULY MORALES FINDINGS: The cardiac silhouette is stable in size. There is blunting of the costophrenic angle posteriorly compatible with small pleural effusion. No pneumothorax. 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 IMPRESSION: Blunting of costophrenic angle posteriorly compatible with small pleural effusion. MACRO: None Signed by: Jono Andrade 06/11/2023 10:44 PM Dictation workstation: [id number] [facility] Work Phone: Radiology Study observation (narrative) [facility] Work Phone: XR Chest 2 ViewsOrdered By: Jono Andrade on 06-11-2023 [facility] Work Phone: Glucose Test strip manual (B ld) [Mass/Vol]on 06-10-2023 Glucose [Mass/Vol] 314 mg/dL High 74 - 99 mg/dL [facility] Interpretation and review of laboratory results Abnormal [facility] Glucose [Mass/Vol] 314 mg/dL High 74-99 [facility] Comment on above: Performed By: #### 5 8077-9 #### JIMBO ANTHONY ([id number]) [facility] ([facility]) [address] [place] [address] 68993 Glucose [Mass/Vol] 295 mg/dL High 74 - 99 mg/dL [facility] Interpretation and review of laboratory results Abnormal [facility] Glucose [Mass/Vol] 295 mg/dL High 74-99 [facility] Comment on above: Performed By: #### 5 8077-9 #### JIMBO ANTHONY ([id number]) [facility] ([facility]) [address] [place] [address] 10455 Glucose [Mass/Vol] 268 mg/dL High 74 - 99 mg/dL [facility] Interpretation and review of laboratory results Abnormal [facility] Glucose [Mass/Vol] 268 mg/dL High 74-99 [facility] Comment on above: Performed By: #### 5 8077-9 #### JIMBO ANTHONY ([id number]) [facility] ([facility]) [address] [place] [address] 87409 VERAB/VERIFY ABORHon 024 ABO group Nom (Bld) O Normal [facility] Comment on above: Order Comment: Thi s is for confirming/verifying history of ABORh on file for transfusion of blood products. If this is not for transfusion, please order an ABO/RH [[id number]]. If you have any questions or unsure what to order, please call the blood bank. Performed By: #### 5 8077-9 #### JIMBO ANTHONY ([id number]) [facility] ([facility]) [address] [place] [address] D Ag Ql (Bld) Positive [facility] Comment on above: Order Comment: Thi s is for confirming/verifying history of ABORh on file for transfusion of blood products. If this is not for transfusion, please order an ABO/RH [[id number]]. If you have any questions or unsure what to order, please call the blood bank. Performed By: #### 5 8077-9 #### JIMBO ANTHONY ([id number]) [facility] ([facility]) [address] [place] [address] VERIFY ABO/Rh Group Teston 0 06-10-2023 ABO group Nom (Bld) O [facility] D Ag Ql (Bld) Positive [facility] FL FLUORO IMAGES NO CHARGEon 06-03-2023 FL FLUORO IMAGES NO CHARGE These images are not reportable by radiology and will not be interpreted by Radiologists. Normal [facility] Glucose Test strip manual (B ld) [Mass/Vol]on 06-03-2023 Glucose [Mass/Vol] 271 mg/dL High 74 - 99 mg/dL [facility] Interpretation and review of laboratory results Abnormal [facility] Glucose [Mass/Vol] 271 mg/dL High 74-99 [facility] Comment on above: Performed By: #### 5 8077-9 #### JIMBO ANTHONY ([id number]) [facility] ([facility]) [address] [place] [address] XR tomography Unspecified pamela dy regionon 06-03-2023 These images are not reportable by radiology and will not be interpreted by Radiologists. IMAGING ECG 12 LeadOrdered By: Chalo Barrios on 06-01-2023 Atrial Rate 69 BPM [facility] Work Phone: P [place] 39 degrees [facility] Work Phone: P Offset 204 ms [facility] Work Phone: P Onset 150 ms [facility] Work Phone: NC Interval 150 ms [facility] Work Phone: Q Onset 225 ms [facility] Work Phone: QRS Count 12 beats [facility] Work Phone: QRS Duration 64 ms [facility] Work Phone: QT Interval 424 ms [facility] Work Phone: QTC Calculation(Bazett) 454 ms [facility] Work Phone: QTC Fredericia 444 ms [facility] Work Phone: R [place] 14 degrees [facility] Work Phone: T [place] 56 degrees [facility] Work Phone: T Offset 437 ms [facility] Work Phone: Ventricular Rate 69 BPM [facility] Work Phone: [facility] Work Phone: ECG 12 Leadon 06-01-2023 Normal sinus rhythm Low voltage QRS Borderline ECG When compared with ECG of 13-APR-2023 06:33, Sinus rhythm has replaced Ectopic atrial rhythm Vent. rate has decreased BY 66 BPM Nonspecific T wave abnormality no longer evident in Lateral leads Confirmed by Irving Barrios ([id number]) on 06/01/2023 3:17:33 PM MUSE Irving Barrios MD - 06/01/2023 Normal sinus rhythm Low voltage QRS Borderline ECG When compared with ECG of 13-APR-2023 06:33, Sinus rhythm has replaced Ectopic atrial rhythm Vent. rate has decreased BY 66 BPM Nonspecific T wave abnormality no longer evident in Lateral leads Confirmed by Irving Barrios ([id number]) on 06/01/2023 3:17:33 PM [facility] Work Phone: XR Chest 2 Viewson 4 Cardiomegaly with findings concerning for mild interstitial edema with small bilateral pleural effusions. Recommend correlation with fluid status and cardiac function. MACRO: Critical Finding: See findings. Notification was initiated on 06/01/2023 at 11:[address] Maryan Pollard. (-YCF-) Instructions: Signed by: Maryan Pollard 06/01/2023 11:49 AM Dictation workstation: [id number] [facility]AL Interpreted By: Maryan Pollard, STUDY: XR CHEST 2 VIEWS; ; 05/31/2023 8:17 am INDICATION: Signs/Symptoms:pre-op erative clearance. COMPARISON: Chest radiograph dated 09/22/2021 ACCESSION NUMBER(S): [id number] ORDERING CLINICIAN: FREDY ADAM FINDINGS: Cardiac silhouette is mildly enlarged. There is prominence of interstitial markings in bilateral lungs concerning for mild interstitial edema. There is obliteration of bilateral costophrenic angles and possibility of small bilateral pleural effusions can not be excluded. No dense consolidative airspace opacity is noted. No large pneumothorax. No acute osseous findings. MMODAL Maryan Pollard MD - 06/01/2023 Interpreted By: Maryan Pollard, STUDY: XR CHEST 2 VIEWS; ; 05/31/2023 8:17 am INDICATION: Signs/Symptoms:pre-op erative clearance. COMPARISON: Chest radiograph dated 09/22/2021 ACCESSION NUMBER(S): [id number] ORDERING CLINICIAN: FREDY ADAM FINDINGS: Cardiac silhouette is mildly enlarged. There [...] Maryan Pollard 06/01/2023 11:49 AM Dictation workstation: [id number] [facility] Work Phone: XR Chest 2 ViewsOrdered By: Maryan Pollard on 06-01-2023 [facility] Work Phone: Blood type and Indirect anti body screen panel (Bld)on 05-31-2023 ABO group Nom (Bld) O Normal [facility] Comment on above: Performed By: #### 2 4323-8 #### JIMBO ANTHONY ([id number]) [facility] ([facility]) [address] [place] [address] Blood group antibody screen Ql Negative Normal [facility] Comment on above: Performed By: #### 2 4323-8 #### JIMBO ANTHONY ([id number]) [facility] ([facility]) [address] [place] [address] D Ag Ql (Bld) Positive Normal [facility] Comment on above: Performed By: #### 2 4323-8 #### JIMBO ANTHONY ([id number]) [facility] ([facility]) [address] [place] [address] CBC panel Auto (Bld)on 05-31 Erythrocyte distribution width (RBC) [Ratio] 13.3 % Normal 11.5-14.5 [facility] Comment on above: Performed By: #### 2 4323-8 #### JIMBO ANTHONY ([id number]) [facility] ([facility]) [address] [place] [address] Hematocrit (Bld) [Volume fraction] 36.7 % Normal 36.0-46.0 [facility] Comment on above: Performed By: #### 2 4323-8 #### JIMBO ANTHONY ([id number]) [facility] ([facility]) [address] [place] [address] 25946 Hemoglobin (Bld) [Mass/Vol] 12.0 g/dL Normal 12.0-16.0 [facility] Comment on above: Performed By: #### 2 432-8 #### JIMBO ANTHONY ([id number]) [facility] ([facility]) [address] [place] [address] 65255 MCH (RBC) [Entitic mass] 30.0 pg Normal 26.0-34.0 [facility] Comment on above: Performed By: #### 2 4322-8 #### JIMBO ANTHONY ([id number]) [facility] ([facility]) [address] [place] [address] 37935 MCHC (RBC) [Mass/Vol] 32.7 g/dL Normal 32.0-36.0 [facility] Comment on above: Performed By: #### 2 4322-8 #### JIMBO ANTHONY ([id number]) [facility] ([facility]) [address] [place] [address] 81722 MCV (RBC) [Entitic vol] 92 fL Normal 80-100 [facility] Comment on above: Performed By: #### 2 432-8 #### JIMBO ANTHONY ([id number]) [facility] ([facility]) [address] [place] [address] 17880 Nucleated RBC/100 WBC (Bld) [Ratio] 0.0 /100 WBCs Normal 0.0-0.0 [facility] Comment on above: Performed By: #### 2 432-8 #### JIMBO ANTHONY ([id number]) [facility] ([facility]) [address] [place] [address] 21955 Platelets (Bld) [#/Vol] 97 x10*3/uL Low 150-450 [facility] Comment on above: Performed By: #### 2 432-8 #### JIMBO ANTHONY ([id number]) [facility] ([facility]) [address] [place] [address] 36401 RBC (Bld) [#/Vol] 4.00 x10*6/uL Normal 4.00-5.20 [facility] Comment on above: Performed By: #### 2 4323-8 #### JIMBO ANTHONY ([id number]) [facility] ([facility]) [address] [place] [address] WBC (Bld) [#/Vol] 5.9 x10*3/uL Normal 4.4-11.3 [facility] Comment on above: Performed By: #### 2 4323-8 #### JIMBO ANTHONY ([id number]) [facility] ([facility]) [address] [place] [address] Comprehensive metabolic 2000 panelon 05-31-2023 Albumin BCP dye [Mass/Vol] 3.1 g/dL Low 3.4-5.0 [facility] Comment on above: Performed By: #### 2 4323-8 #### JIMBO ANTHONY ([id number]) [facility] ([facility]) [address] [place] [address] ALP [Catalytic activity/Vol] 99 U/L Normal 33-136 [facility] Comment on above: Performed By: #### 2 4323-8 #### JIMBO ANTHONY ([id number]) [facility] ([facility]) [address] [place] [address] ALT With P-5'-P [Catalytic activity/Vol] 9 U/L Normal 7-45 [facility] Comment on above: Result Comment: Stephayn ents treated with Sulfasalazine may generate falsely decreased results for ALT. Performed By: #### 2 4323-8 #### JIMBO ANTHONY ([id number]) [facility] ([facility]) [address] [place] [address] 78853 Anion gap [Moles/Vol] 11 mmol/L Normal 10-20 [facility] Comment on above: Performed By: #### 2 4323-8 #### JIMBO ANTHONY ([id number]) [facility] ([facility]) [address] [place] [address] 25220 AST With P-5'-P [Catalytic activity/Vol] 16 U/L Normal 9-39 [facility] Comment on above: Performed By: #### 2 4323-8 #### JIMBO ANTHONY ([id number]) [facility] ([facility]) [address] [place] [address] Bilirubin [Mass/Vol] 0.4 mg/dL Normal 0.0-1.2 [facility] Comment on above: Performed By: #### 2 4323-8 #### JIMBO ANTHONY ([id number]) [facility] ([facility]) [address] [place] [address]72 Calcium [Mass/Vol] 8.2 mg/dL Low 8.6-10.[address] [facility] Comment on above: Performed By: #### 2 4323-8 #### JIMBO ANTHONY ([id number]) [facility] ([facility]) [address] [place] [address] 33417 Chloride [Moles/Vol] 102 mmol/L Normal 98-107 [facility] Comment on above: Performed By: #### 2 4323-8 #### JIMBO ANTHONY ([id number]) [facility] ([facility]) [address] [place] [address] CO2 [Moles/Vol] 27 mmol/L Normal 21-32 [facility] Comment on above: Performed By: #### 2 4323-8 #### JIMBO ANTHONY ([id number]) [facility] ([facility]) [address] [place] [address] 71222 Creatinine [Mass/Vol] 1.23 mg/dL High 0.50-1.05 [facility] Comment on above: Performed By: #### 2 4323-8 #### JIMBO ANTHONY ([id number]) [facility] ([facility]) [address] [place] [address] 31550 Glomerular filtration rate/1.73 sq M.predicted 49 mL/min/1.73m*2 Low >60 [facility] Comment on above: Result Comment: Calc ulations of estimated GFR are performed using the 2020 CKD-EPI Study Refit equation without the race variable for the IDMS-Traceable creatinine methods. https://jasn.asnjournals.org/content//ASN.24655 44623 Performed By: #### 2 4323-8 #### JIMBO ANTHONY ([id number]) [facility] ([facility]) [address] [place] [address] 05743 Glucose [Mass/Vol] 301 mg/dL High 74-[address] [facility] Comment on above: Performed By: #### 2 4323-8 #### JIMBO ANTHONY ([id number]) [facility] ([facility]) [address] [place] [address] 03113 Potassium [Moles/Vol] 4.3 mmol/L Normal 3.5-5.3 [facility] Comment on above: Performed By: #### 2 4323-8 #### JIMBO ANTHONY ([id number]) [facility] ([facility]) [address] [place] [address] 36586 Protein [Mass/Vol] 6.4 g/dL Normal 6.4-8.[address] [facility] Comment on above: Performed By: #### 2 4323-8 #### JIMBO ANTHONY ([id number]) [facility] ([facility]) [address] [place] [address] 12212 Sodium [Moles/Vol] 136 mmol/L Normal 136-[address] [facility] Comment on above: Performed By: #### 2 4323-8 #### JIMBO ANTHONY ([id number]) [facility] ([facility]) [address] [place] [address] 61735 Urea nitrogen [Mass/Vol] 16 mg/dL Normal 6-23 [facility] Comment on above: Performed By: #### 2 4323-8 #### JIMBO ANTHONY ([id number]) [facility] ([facility]) [address] [place] [address] 39667 ECG 12-LEADon 05-31-2023 ECG 12-LEAD Ventricular Rate 69 Atrial Rate 69 P-R Interval 150 QRS Duration 64 Q-T Interval 424 QTC Calculation(Bazett) 454 P [place] 39 R [place] 14 T [place] 56 QRS Count 12 Q Onset 225 [...] Barrios ([id number]) on 06/01/2023 3:17:33 PM Normal [facility] No Panel Informationon 05-31 [place] [id number] [phone], Vascular Lab Report VASC US LOWER EXTREMITY VENOUS DUPLEX LEFT Patient Name: JANELLE Bone Physician: [id number] MD Study Date: 05/31/2023 Ordering Provider: [id number] RYAN MEHTA MRN/PID: [id number] Fellow: Technologist: Rut Alvarenga RVT/AB Date of 1955 Technologist 2: /Age: years Gender: F Admission Status: Outpatient Location [facility] Performed: Diagnosis/ICD: Localized (leg) edema-R60.0 CPT Codes: 67543 Peripheral venous duplex scan for DVT Limited [...] Spontaneous/Phasic Peroneal Yes None PTV Yes None [id number] MD Final Yamilet Ruiz MD - 05/31/2023 [place] [id number], Vascular Lab Report VASC US LOWER EXTREMITY VENOUS DUPLEX LEFT Patient Name: JANELLE Bone Physician: [id number] MD Study Date: 05/31/2023 Ordering Provider: [id number] RYAN MEHTA MRN/PID: [id number] Fellow: Technologist: Rut Alvarenga RVT/AB Date of 1955 Technologist 2: /Age: years Gender: F Admission Status: Outpatient Location [facility] Performed: Diagnosis/ICD: Localized (leg) edema-R60.0 CPT Codes: 50851 Peripheral venous duplex scan for DVT Limited [...] Spontaneous/Phasic Peroneal Yes None PTV Yes None [id number] MD Final [facility] Work Phone: Radiology Study observation (narrative) [facility] Work Phone: No Panel InformationOrdered By: Yamilet Lane on 05-31-2023 [facility] Work Phone: Urinalysis complete panel (U )on 05-31-2023 Appearance (U) Hazy Normal Clear [facility] Comment on above: Performed By: #### 2 4323-8 #### JIMBO ANTHONY ([id number]) [facility] ([facility]) [address] [place] [address] 55686 Bilirubin (U) [Mass/Vol] Negative Normal NEGATIVE [facility] Comment on above: Performed By: #### 2 4323-8 #### JIMBO ANTHONY ([id number]) [facility] ([facility]) [facility] [place] [address] Color (U) Yellow Normal Straw, Yellow [facility] Comment on above: Performed By: #### 2 4322-8 #### JIMBO ANTHONY ([id number]) [facility] ([facility]) [address] [place] [address] 85004 Glucose Auto test strip (U) [Mass/Vol] Negative Normal NEGATIVE [facility] Comment on above: Performed By: #### 2 4322-8 #### JIMBO ANTHONY ([id number]) [facility] ([facility]) [address] [place] [address] 55295 Ketones (U) [Mass/Vol] 5 (TRACE) Abnormal NEGATIVE [facility] Comment on above: Performed By: #### 2 4322-8 #### JIMBO ANTHONY ([id number]) [facility] ([facility]) [address] [place], [place] [address] Leukocyte esterase Auto test strip Ql (U) Negative Normal NEGATIVE [facility] Comment on above: Performed By: #### 2 4322-8 #### JIMBO ANTHONY ([id number]) [facility] ([facility]) [address] [place], [place] [address] Nitrite Auto test strip Ql (U) Negative Normal NEGATIVE [facility] Comment on above: Performed By: #### 2 4322-8 #### JIMBO ANTHONY ([id number]) [facility] ([facility]) [address] [place], [place] [address] pH (U) 5.0 [pH] Normal 5.0, 5.5, 6.0, 6.5, 7.0, 7.5, 8.0 [facility] Comment on above: Performed By: #### 2 4322-8 #### JIMBO ANTHONY ([id number]) [facility] ([facility]) [address] [place] [address] 86137 Protein (U) [Mass/Vol] >=500 (3+) Normal NEGATIVE [facility] Comment on above: Performed By: #### 2 4322-8 #### JIMBO ANTHONY ([id number]) [facility] ([facility]) [address] [place] [address] 89466 RBC (U) [#/Vol] SMALL (1+) Abnormal NEGATIVE [facility] Comment on above: Performed By: #### 2 4323-8 #### JIMBO ANTHONY ([id number]) [facility] ([facility]) [address] [place] [address] 52581 Specific gravity (U) [Rel density] 1.030 Normal 1.005-1.035 [facility] Comment on above: Performed By: #### 2 4323-8 #### JIMBO ANTHONY ([id number]) [facility] ([facility]) [address] [place], [place] [address] Urobilinogen (U) [Mass/Vol] 2.0 mg/dL Normal <2.0 [facility] Comment on above: Result Comment: Due to [...] false positive urobilinogen. Performed By: #### 2 432-8 #### JIMBO ANTHONY ([id number]) [facility] ([facility]) [address] [place], [place] [address] Urinalysis microscopic panel Auto Ql (U)on 05-31-2023 Epithelial cells.squamous Auto (Urine sed) [#/Area] 1-9 (SPARSE) Normal Reference range not established. [facility] Comment on above: Performed By: #### 2 4323-8 #### JIMBO ANTHONY ([id number]) [facility] ([facility]) [address] [place] [address] 94918 RBC Auto (Urine sed) [#/Area] 11-20 Abnormal NONE, 1-2, 3-5 [facility] Comment on above: Performed By: #### 2 4323-8 #### JIMBO ANTHONY ([id number]) [facility] ([facility]) [address] [place] [address] 66046 WBC Auto (Urine sed) [#/Area] 1-5 Normal 1-5, NONE [facility] Comment on above: Performed By: #### 2 4323-8 #### JIMBO ANTHONY ([id number]) [facility] ([facility]) [address] [place] [address] VASC US LOWER EXTREMITY VENO US DUPLEX LEFTon 05-31-2023 VASC US LOWER EXTREMITY [place] [address] ext-[phone], Vascular Lab Report VAS US LOWER EXTREMITY VENOUS DUPLEX LEFT Patient Name: JANELLE PICKETT Reading Physician: [id number] MD Study Date: 05/31/2023 Ordering Provider: [id number] RYAN MEHTA MRN/PID: [id number] Fellow: Technologist: Rut Alvarenga RVT/AB Date of 1955 Technologist 2: /Age: years Gender: F Admission Status: Outpatient Location [facility] Performed: Diagnosis/ICD: Localized (leg) edema-R60.0 CPT Codes: 89375 Peripheral venous duplex scan for DVT Limited [...] Spontaneous/Phasic Peroneal Yes None PTV Yes None [id number] MD Final Normal [facility] XR CHEST 2 VIEWSon XR CHEST 2 VIEWS Interpreted By: Maryan Pollard, STUDY: XR CHEST 2 VIEWS; ; 05/31/2023 8:17 am INDICATION: Signs/Symptoms:pre-op erative clearance. COMPARISON: Chest radiograph dated 09/22/2021 ACCESSION NUMBER(S): [id number] ORDERING CLINICIAN: FREDY STYLES FINDINGS: Cardiac silhouette [...] Maryan Pollard 06/01/2023 11:49 AM Dictation workstation: [id number] [facility] XR Chest 2 Viewson Radiology Study observation (narrative) [facility] Work Phone: BI TRANSFER OF OUTSIDE FILMS on 05-19-2023 BI TRANSFER OF OUTSIDE FILMS Outside images for comparison or treatment purposes, not interpreted by Radiologists. [facility] Study Interpretation of outs faye studyon 05-19-2023 Outside images for comparison or treatment purposes, not interpreted by Radiologists. IMAGING BI MAMMO BILATERAL SCREENING TOMOSYNTHESISon 05-18-2023 BI MAMMO BILATERAL SCREENING TOMOSYNTHESIS Interpreted By: Glen Crowley, STUDY: BI MAMMO BILATERAL SCREENING TOMOSYNTHESIS; 05/18/2023 1:40 pm ACCESSION NUMBER(S): [id number] ORDERING CLINICIAN: CALLIE MCDONOUGH INDICATION: Screening. COMPARISON: [...] Glen Crowley 05/25/2023 10:13 AM Dictation workstation: [id number] [facility] DEXA BONE DENSITYon 05-18-19 DEXA BONE DENSITY Interpreted By: Glen Crowley, STUDY: DEXA BONE DENSITY05/18/2023 2:04 pm INDICATION: Signs/Symptoms:post menopausal. The patient is a 67 y/o year old F. COMPARISON: None. ACCESSION NUMBER(S): [id number] ORDERING CLINICIAN: CALLIE MCDONOUGH TECHNIQUE: DEXA BONE [...] hip fracture. This exam was performed at [facility] on a [address] Advanced Dexa Unit. IMPRESSION: DEXA: According to World Health Organization criteria, classification is normal. Followup recommended in 2 years or sooner as clinically warranted. VFA: NO VERTEBRAL FRACTURES WERE SEEN. All images and detailed analysis are available on the Radiology PACS. MACRO: None Signed by: Glen Crowley 05/18/2023 2:36 PM Dictation workstation: [id number] [facility] DXA Skeletal system Views fo r bone densityon 05-18-2023 DEXA: According to World Health Organization criteria, classification is normal. Followup recommended in 2 years or sooner as clinically warranted. VFA: NO VERTEBRAL FRACTURES WERE SEEN. All images and detailed analysis are available on the Radiology PACS. MACRO: None Signed by: Glen Crowley 05/18/2023 2:36 PM Dictation workstation: [id number] [facility] Interpreted By: Glen Crowley, STUDY: DEXA BONE DENSITY05/18/2023 2:04 pm INDICATION: Signs/Symptoms:post menopausal. The patient is a 67 y/o year old F. COMPARISON: None. ACCESSION NUMBER(S): [id number] ORDERING CLINICIAN: CALLIE MCDONOUGH TECHNIQUE: DEXA BONE [...] hip fracture. This exam was performed at [facility] on a [employer] Dexa Unit. [facility] MMODAL Glen Crowley MD - 05/18/2023 Interpreted By: Glen Crowley, STUDY: DEXA BONE DENSITY05/18/2023 2:04 pm INDICATION: Signs/Symptoms:post menopausal. The patient is a 67 y/o year old F. COMPARISON: None. ACCESSION NUMBER(S): [id number] ORDERING CLINICIAN: CALLIE MCDONOUGH TECHNIQUE: DEXA BONE [...] hip fracture. This exam was performed at [facility] on a [address] Advanced Dexa Unit. IMPRESSION: DEXA: According to World Health Organization criteria, classification is normal. Followup recommended in 2 years or sooner as clinically warranted. VFA: NO VERTEBRAL FRACTURES WERE SEEN. All images and detailed analysis are available on the Radiology PACS. MACRO: None Signed by: Glen Crowley 05/18/2023 2:36 PM Dictation workstation: [id number] [facility] Work Phone: Radiology Study observation (narrative) [facility] Work Phone: DXA Skeletal system Views fo r bone densityOrdered By: Glen Crowley on 05-18-2023 [facility] Work Phone: MR KNEE LEFT WO IV CONTRASTo n 05-13-2023 MR KNEE LEFT WO IV CONTRAST Interpreted By: Tali Humphries, STUDY: MRI of the left knee without IV contrast; 05/13/2023 9:00 am INDICATION: Signs/Symptoms:pain, no relief with conservative measures. COMPARISON: Radiographs 04/04/2023. ACCESSION NUMBER(S): [id number] ORDERING CLINICIAN: SHADIA DALEY TECHNIQUE: MR imaging [...] tear. Common peroneal nerve is intact. IMPRESSION: Cnjy-hx-htqzfvpv medial compartment osteoarthritis. Intact tendons, ligaments and menisci. MACRO: None Signed by: Tali Humphries 05/13/2023 9:34 AM Dictation workstation: [id number] [facility] MR Knee - left WO contraston 05-13-2023 Eyli-af-dxcndwvs medial compartment osteoarthritis. Intact tendons, ligaments and menisci. MACRO: None Signed by: Tali Humphries 05/13/2023 9:34 AM Dictation workstation: [id number] [facility] MM[facility]AL Interpreted By: Tali Humphries, STUDY: MRI of the left knee without IV contrast; 05/13/2023 9:00 am INDICATION: Signs/Symptoms:pain, no relief with conservative measures. COMPARISON: Radiographs 04/04/2023. ACCESSION NUMBER(S): [id number] ORDERING CLINICIAN: SHADIA DALEY TECHNIQUE: MR imaging [...] conservative measures. COMPARISON: Radiographs 04/04/2023. ACCESSION NUMBER(S): [id number] ORDERING CLINICIAN: SHADIA DALEY TECHNIQUE: MR imaging [...] tear. Common peroneal nerve is intact. IMPRESSION: Djkv-pk-kipyrtwq medial compartment osteoarthritis. Intact tendons, ligaments and menisci. MACRO: None Signed by: Tali Humphries 05/13/2023 9:34 AM Dictation workstation: [id number] [facility] Work Phone: Radiology Study observation (narrative) [facility] Work Phone: MR Knee - left WO contrastOr dered By: Tali Humphries on 05-13-2023 [facility] Work Phone: No Panel InformationOrdered By: Mignon Hauser on 04-20-2023 Atrial Rate 137 BPM [facility] Work Phone: P Offset 205 ms [facility] Work Phone: P Onset 178 ms [facility] Work Phone: NC Interval 82 ms [facility] Work Phone: Q Onset 219 ms [facility] Work Phone: QRS Count 22 beats [facility] Work Phone: QRS Duration 62 ms [facility] Work Phone: QT Interval 376 ms [facility] Work Phone: QTC Calculation(Bazett) 567 ms [facility] Work Phone: QTC Fredericia 495 ms [facility] Work Phone: R [place] -6 degrees [facility] Work Phone: T [place] 7 degrees [facility] Work Phone: T Offset 407 ms [facility] Work Phone: Ventricular Rate 137 BPM [facility] Work Phone: [facility] Work Phone: No Panel Informationon 04-20 Sinus tachycardia with short NC Low voltage QRS Borderline ECG When compared with ECG of 04-APR-2023 12:43, (unconfirmed) Questionable change in QRS axis ST no longer depressed in Inferior leads ST no longer depressed in Anterolateral leads See ED provider note for full interpretation and clinical correlation Confirmed by Mignon Hauser ([id number]) on 04/20/2023 3:06:17 PM Mignon Gardiner PA-C - 05/09/2023 Sinus tachycardia with short NC Low voltage QRS Borderline ECG When compared with ECG of 04-APR-2023 12:43, (unconfirmed) Questionable change in QRS axis ST no longer depressed in Inferior leads ST no longer depressed in Anterolateral leads See ED provider note for full interpretation and clinical correlation Confirmed by Mignon Hauser ([id number]) on 04/20/2023 3:06:17 PM [facility] Work Phone: CBC panel Auto (Bld)on 04-14 Erythrocyte distribution width (RBC) [Ratio] 13.6 % 11.5 - 14.5 % [facility] Hematocrit (Bld) [Volume fraction] 36.7 % 36.0 - 46.0 % [facility] Hemoglobin (Bld) [Mass/Vol] 12.0 g/dL 12.0 - 16.0 g/dL [facility] Interpretation and review of laboratory results Abnormal [facility] MCH (RBC) [Entitic mass] 30.5 pg 26.0 - 34.0 pg [facility] MCHC (RBC) [Mass/Vol] 32.7 g/dL 32.0 - 36.0 g/dL [facility] MCV (RBC) [Entitic vol] 93 fL 80 - 100 fL [facility] Nucleated RBC/100 WBC (Bld) [Ratio] 0.0 % [facility] Platelets (Bld) [#/Vol] 93 10*3/uL Low [facility] RBC (Bld) [#/Vol] 3.93 10*6/uL [facility] WBC (Bld) [#/Vol] 6.5 10*3/uL [facility] Erythrocyte distribution width (RBC) [Ratio] 13.6 % Normal 11.5-14.5 [facility] Comment on above: Performed By: #### 5 7021-8 #### JIMBO ANTHONY ([id number]) [facility] ([facility]) [address] [place] [address] 64181 Hematocrit (Bld) [Volume fraction] 36.7 % Normal 36.0-46.0 [facility] Comment on above: Performed By: #### 5 7021-8 #### JIMBO ANTHONY ([id number]) [facility] ([facility]) [address] [place] [address] 54321 Hemoglobin (Bld) [Mass/Vol] 12.0 g/dL Normal 12.0-16.0 [facility] Comment on above: Performed By: #### 5 7021-8 #### JIMBO ANTHONY ([id number]) [facility] ([facility]) [address] [place] [address] 70749 MCH (RBC) [Entitic mass] 30.5 pg Normal 26.0-34.0 [facility] Comment on above: Performed By: #### 5 7021-8 #### JIMBO ANTHONY ([id number]) [facility] ([facility]) [address] [place] [address] 35149 MCHC (RBC) [Mass/Vol] 32.7 g/dL Normal 32.0-36.0 [facility] Comment on above: Performed By: #### 5 7021-8 #### JIMBO ANTHONY ([id number]) [facility] ([facility]) [address] [place] [address] MCV (RBC) [Entitic vol] 93 fL Normal 80-100 [facility] Comment on above: Performed By: #### 5 7021-8 #### JIMBO ANTHONY ([id number]) [facility] ([facility]) [address] [place] [address] 30288 Nucleated RBC/100 WBC (Bld) [Ratio] 0.0 /100 WBCs Normal 0.0-0.0 [facility] Comment on above: Performed By: #### 5 7021-8 #### JIMBO ANTHONY ([id number]) [facility] ([facility]) [address] [place] [address] 35175 Platelets (Bld) [#/Vol] 93 x10*3/uL Low 150-450 [facility] Comment on above: Performed By: #### 5 7021-8 #### JIMBO ANTHONY ([id number]) [facility] ([facility]) [address] [place] [address] 88526 RBC (Bld) [#/Vol] 3.93 x10*6/uL Low 4.00-5.20 [facility] Comment on above: Performed By: #### 5 7021-8 #### JIMBO ANTHONY ([id number]) [facility] ([facility]) [address] [place] [address] WBC (Bld) [#/Vol] 6.5 x10*3/uL Normal 4.4-11.3 [facility] Comment on above: Performed By: #### 5 7021-8 #### CHOI GABRIELLE ([id number]) [facility] ([facility]) [address] [place] [id number] Comprehensive metabolic 2000 panelon 04-14-2023 Albumin BCP dye [Mass/Vol] 2.9 g/dL Low 3.4 - 5.0 g/dL [facility] ALP [Catalytic activity/Vol] 90 U/L 33 - 136 U/L [facility] ALT With P-5'-P [Catalytic activity/Vol] 17 U/L 7 - 45 U/L [facility] Comment on above: Patients treated wit h Sulfasalazine may generate falsely decreased results for ALT. Anion gap [Moles/Vol] 10 mmol/L 10 - 2 0 mmol/L [facility] AST With P-5'-P [Catalytic activity/Vol] 16 U/L 9 - 39 U/L [facility] Bilirubin [Mass/Vol] 0.3 mg/dL 0.0 - 1 .2 mg/dL [facility] Calcium [Mass/Vol] 8.0 mg/dL Low 8.6 - 10. 3 mg/dL [facility] Chloride [Moles/Vol] 103 mmol/L 98 - 10 7 mmol/L [facility] CO2 [Moles/Vol] 28 mmol/L 21 - 32 mmol/L [facility] Creatinine [Mass/Vol] 1.07 mg/dL High 0.50 - 1.05 mg/dL [facility] GFR/1.73 sq M.predicted MDRD (S/P/Bld) [Vol rate/Area] 57 mL/min/{1.73_m2} Low - PINF [facility] Comment on above: Calculations of roxann mated GFR are performed using the 2020 CKD-EPI Study Refit equation without the race variable for the IDMS-Traceable creatinine methods. https://jasn.asnjournals.org/content//ASN.34018 81229 Glucose [Mass/Vol] 129 mg/dL High 74 - 99 mg/dL [facility] Interpretation and review of laboratory results Abnormal [facility] Potassium [Moles/Vol] 4.0 mmol/L 3.5 - 5.3 mmol/L [facility] Protein [Mass/Vol] 5.6 g/dL Low 6.4 - 8.2 g/dL [facility] Sodium [Moles/Vol] 137 mmol/L 136 - 145 mmol/L [facility] Urea nitrogen [Mass/Vol] 13 mg/dL 6 - 23 mg/dL [facility] Albumin BCP dye [Mass/Vol] 2.9 g/dL Low 3.4-5.0 [facility] Comment on above: Performed By: #### 5 7021-8 #### JIMBO ANTHONY ([id number]) [facility] ([facility]) [address] [place] [address] ALP [Catalytic activity/Vol] 90 U/L Normal 33-136 [facility] Comment on above: Performed By: #### 5 7021-8 #### JIMBO ANTHONY ([id number]) [facility] ([facility]) [address] [place] [address] 77467 ALT With P-5'-P [Catalytic activity/Vol] 17 U/L Normal 7-45 [facility] Comment on above: Result Comment: Stephany ents treated with Sulfasalazine may generate falsely decreased results for ALT. Performed By: #### 5 7021-8 #### JIMBO ANTHONY ([id number]) [facility] ([facility]) [facility] [place] [address] Anion gap [Moles/Vol] 10 mmol/L Normal 10-20 [facility] Comment on above: Performed By: #### 5 7021-8 #### JIMBO ANTHONY ([id number]) [facility] ([facility]) [facility] [place] [address] AST With P-5'-P [Catalytic activity/Vol] 16 U/L Normal 9-39 [facility] Comment on above: Performed By: #### 5 7021-8 #### JIMBO ANTHONY ([id number]) [facility] ([facility]) [address] [place] [address] Bilirubin [Mass/Vol] 0.3 mg/dL Normal 0.0-1.2 [facility] Comment on above: Performed By: #### 5 7021-8 #### JIMBO ANTHONY ([id number]) [facility] ([facility]) [address] [place] [address] Calcium [Mass/Vol] 8.0 mg/dL Low 8.6-10.3 [facility] Comment on above: Performed By: #### 5 7021-8 #### JIMBO ANTHONY ([id number]) [facility] ([facility]) [address] [place] [address] Chloride [Moles/Vol] 103 mmol/L Normal 98-107 [facility] Comment on above: Performed By: #### 5 7021-8 #### JIMBO ANTHONY ([id number]) [facility] ([facility]) [address] [place] [address] CO2 [Moles/Vol] 28 mmol/L Normal 21-32 [facility] Comment on above: Performed By: #### 5 7021-8 #### JIMBO ANTHONY ([id number]) [facility] ([facility]) [address] [place] [address] Creatinine [Mass/Vol] 1.07 mg/dL High 0.50-1.05 [facility] Comment on above: Performed By: #### 5 7021-8 #### JIMBO ANTHONY ([id number]) [facility] ([facility]) [address] [place] [address] GFR/1.73 sq M.predicted MDRD (S/P/Bld) [Vol rate/Area] 57 mL/min/1.73m*2 Low >60 [facility] Comment on above: Result Comment: Calc ulations of estimated GFR are performed using the 2020 CKD-EPI Study Refit equation without the race variable for the IDMS-Traceable creatinine methods. https://jasn.asnjournals.org/content//ASN.09183 44632 Performed By: #### 5 7021-8 #### JIMBO ANTHONY ([id number]) [facility] ([facility]) [address] [place] [address] 45574 Glucose [Mass/Vol] 129 mg/dL High 74-99 [facility] Comment on above: Performed By: #### 5 7021-8 #### JIMBO ANTHONY ([id number]) [facility] ([facility]) [address] [place] [address]29[address] Potassium [Moles/Vol] 4.0 mmol/L Normal 3.5-5.3 [facility] Comment on above: Performed By: #### 5 7021-8 #### JIMBO ANTHONY ([id number]) [facility] ([facility]) [address] [place] [address]11 Protein [Mass/Vol] 5.6 g/dL Low 6.4-8.2 [facility] Comment on above: Performed By: #### 5 7021-8 #### JIMBO ANTHONY ([id number]) [facility] ([facility]) [address] [place] [address] 90975 Sodium [Moles/Vol] 137 mmol/L Normal 136-145 [facility] Comment on above: Performed By: #### 5 7021-8 #### JIMBO ANTHONY ([id number]) [facility] ([facility]) [address] [place] [address] 08172 Urea nitrogen [Mass/Vol] 13 mg/dL Normal 6-23 [facility] Comment on above: Performed By: #### 5 7021-8 #### JIMBO ANTHONY ([id number]) [facility] ([facility]) [address] [place] [address] 21251 Glucose Test strip manual (B ld) [Mass/Vol]on 04-14-2023 Glucose [Mass/Vol] 207 mg/dL High 74 - 99 mg/dL [facility] Interpretation and review of laboratory results Abnormal [facility] Glucose [Mass/Vol] 207 mg/dL High 74-99 [facility] Comment on above: Performed By: #### 5 7021-8 #### JIMBO ANTHONY ([id number]) [facility] ([facility]) [facility] [place] [address] Glucose [Mass/Vol] 122 mg/dL High 74 - 99 mg/dL [facility] Interpretation and review of laboratory results Abnormal [facility] Glucose [Mass/Vol] 122 mg/dL High 74-99 [facility] Comment on above: Performed By: #### 5 7021-8 #### JIMBO ANTHONY ([id number]) [facility] ([facility]) [facility] [place] [address] HbA1c (Bld) [Mass fraction]o n 04-14-2023 Average glucose Estimated from glycated hemoglobin (Bld) [Mass/Vol] 157 mg/dL Not Established [facility] Interpretation and review of laboratory results Abnormal [facility] Diagnosis of Diabetes-Adults Non-Diabetic: < or = 5.6% Increased risk for developing diabetes: 5.7-6.4% Diagnostic of diabetes: > or = 6.5% Monitoring of Diabetes Age (y).................. ..... Therapeutic Goal (%) Adults: >18.................. .......<7.0 Pediatrics: 13-18................ ...<7.5 Pediatrics: 7-12................. ...<8.0 Pediatrics: 0-6.................. ... 7.5-8.5 [employer]. Diabetes Care 33(S1), Apr 2009 [facility] Average glucose Estimated from glycated hemoglobin (Bld) [Mass/Vol] 157 mg/dL Normal Not Established [facility] Comment on above: Order Comment: Diagn osis of Pxkwpylb-EqnpdwRzx-Lxwqqoxa: < or = 5.6%Increased risk for developing diabetes: 5.7-6.4%Diagnostic of diabetes: > or = 6.5%Monitoring of DiabetesAge (y)....................... Therapeutic Goal (%)Adults: >18.........................<7.0Pediatrics: 13-18...................<7.5Pediatrics: 7-12....................<8.0Pediatrics: 0-6..................... 7.5-8.5[facility] Diabetes Association. Diabetes Care 33(S1)Apr 2009 Performed By: #### 5 7021-8 #### CHOI GABRIELLE ([id number]) [facility] ([facility]) [address] [place] [address] Hemoglobin A1Con 04-14-2023 HbA1c (Bld) [Mass fraction] 7.1 % High see below [facility] Hemoglobin A1c/Hemoglobin.to camilo 04-14-2023 HbA1c (Bld) [Mass fraction] 7.1 % High see below [facility] Comment on above: Order Comment: Diagn osis of Oaszhjcn-OdpjcmDxq-Civhcbyh: < or = 5.6%Increased risk for developing diabetes: 5.7-6.4%Diagnostic of diabetes: > or = 6.5%Monitoring of DiabetesAge (y)....................... Therapeutic Goal (%)Adults: >18.........................<7.0Pediatrics: 13-18...................<7.5Pediatrics: 7-12....................<8.0Pediatrics: 0-6..................... 7.5-8.5[facility] Diabetes Association. Diabetes Care 33(S1), Apr 2009 Performed By: #### 5 7021-8 #### CHOI GABRIELLE ([id number]) [facility] ([facility]) [address] [place] [address] Lower extremity venous duple x lefton 04-14-2023 [place] [address] [phone], Vascular Lab Report [facility] US LOWER EXTREMITY VENOUS DUPLEX LEFT Patient Name: JANELLE PICKETT Lizandro Physician: [id number] Christian Hannah MD Study Date: 04/13/2023 Ordering Provider: [id number] WILLA DEL CASTILLO MRN/PID: [id number] Fellow: Technologist: Desi Chen RVT Date of /Age: 408/06/1955 / 67 years Technologist 2: Gender: F Admission Status: Inpatient Location Performed: [facility] Diagnosis/ICD: Pain in left leg-M79.605 Indication: Limb pain. CPT Codes: 20269 Peripheral venous duplex scan for DVT Limited [...] Spontaneous/Phasic Peroneal Yes None PTV Yes None [id number] Christian Hannah MD Final Christian Bolivar MD - 04/14/2023 [place] [address] [phone], Vascular Lab Report [facility] US LOWER EXTREMITY VENOUS DUPLEX LEFT Patient Name: JANELLE PICKETT Lizandro Physician: [id number] Christian Hannah MD Study Date: 04/13/2023 Ordering Provider: [id number] WILLA DEL CASTILLO MRN/PID: [id number] Fellow: Technologist: Desi Chen RVDanielle Date of /Age: 408/06/1955 / 67 years Technologist 2: Gender: F Admission Status: Inpatient Location Performed: [facility] Diagnosis/ICD: Pain in left leg-M79.605 Indication: Limb pain. CPT Codes: 94712 Peripheral venous duplex scan for DVT Limited [...] Spontaneous/Phasic Peroneal Yes None PTV Yes None [id number] Christian Hannah MD Final [facility] Work Phone: Lower extremity venous duple x leftOrdered By: Christian Luevano on 04-14-2023 [facility] Work Phone: Magnesiumon 04-14-2023 Magnesium [Mass/Vol] 1.78 mg/dL 1.60 - 2.40 mg/dL [facility] Magnesium [Mass/Vol] 1.78 mg/dL Normal 1.60-2.40 [facility] Comment on above: Performed By: #### 5 7021-8 #### CHOI GABRIELLE ([id number]) [facility] ([facility]) [address] [place] [address] Magnesium [Mass/Vol]on 04-14 Interpretation and review of laboratory results Normal [facility] No Panel Informationon 04-14 [facility] APTTon 04-13-2023 aPTT Coag (PPP) [Time] 32 s Un [facility] Basic metabolic 2000 panelon 04-13-2023 Anion gap [Moles/Vol] 12 mmol/L 10 - 2 0 mmol/L [facility] Calcium [Mass/Vol] 8.2 mg/dL Low 8.6 - 10. 3 mg/dL [facility] Chloride [Moles/Vol] 104 mmol/L 98 - 10 7 mmol/L [facility] CO2 [Moles/Vol] 26 mmol/L 21 - 32 mmol/L [facility] Creatinine [Mass/Vol] 0.97 mg/dL 0.50 - 1.05 mg/dL [facility] GFR/1.73 sq M.predicted MDRD (S/P/Bld) [Vol rate/Area] 65 mL/min/{1.73_m2} [facility] Comment on above: Calculations of roxann mated GFR are performed using the 2020 CKD-EPI Study Refit equation without the race variable for the IDMS-Traceable creatinine methods. https://jasn.asnjournals.org/content/early//ASN.69471 49652 Glucose [Mass/Vol] 221 mg/dL High 74 - 99 mg/dL [facility] Potassium [Moles/Vol] 3.8 mmol/L 3.5 - 5.3 mmol/L [facility] Sodium [Moles/Vol] 138 mmol/L 136 - 145 mmol/L [facility] Urea nitrogen [Mass/Vol] 10 mg/dL 6 - 23 mg/dL [facility] Anion gap [Moles/Vol] 12 mmol/L Normal 10-20 [facility] Comment on above: Performed By: #### 5 902-2 #### JIMBO ANTHONY ([id number]) [facility] ([facility]) [address] [place] [address] 70166 Calcium [Mass/Vol] 8.2 mg/dL Low 8.6-10.3 [facility] Comment on above: Performed By: #### 5 902-2 #### JIMBO ANTHONY ([id number]) [facility] ([facility]) [address] [place] [address] 16542 Chloride [Moles/Vol] 104 mmol/L Normal 98-107 [facility] Comment on above: Performed By: #### 5 902-2 #### JIMBO ANTHONY ([id number]) [facility] ([facility]) [address] [place] [address] 10872 CO2 [Moles/Vol] 26 mmol/L Normal 21-32 [facility] Comment on above: Performed By: #### 5 902-2 #### JIMBO ANTHONY ([id number]) [facility] ([facility]) [address] [place] [address] 27888 Creatinine [Mass/Vol] 0.97 mg/dL Normal 0.50-1.05 [facility] Comment on above: Performed By: #### 5 902-2 #### JIMBO ANTHONY ([id number]) [facility] ([facility]) [address] [place] [address] 66328 GFR/1.73 sq M.predicted MDRD (S/P/Bld) [Vol rate/Area] 65 mL/min/1.73m*2 Normal >60 [facility] Comment on above: Result Comment: Calc ulations of estimated GFR are performed using the 2020 CKD-EPI Study Refit equation without the race variable for the IDMS-Traceable creatinine methods. https://jasn.asnjournals.org/content//ASN.94161 67753 Performed By: #### 5 902-2 #### JIMBO ANTHONY ([id number]) [facility] ([facility]) [address] [place] [address] 49021 Glucose [Mass/Vol] 221 mg/dL High 74-99 [facility] Comment on above: Performed By: #### 5 902-2 #### JIMBO ANTHONY ([id number]) [facility] ([facility]) [address] [place] [address] 02054 Potassium [Moles/Vol] 3.8 mmol/L Normal 3.5-5.3 [facility] Comment on above: Performed By: #### 5 902-2 #### JIMBO ANTHONY ([id number]) [facility] ([facility]) [address] [place] [address] 17138 Sodium [Moles/Vol] 138 mmol/L Normal 136-145 [facility] Comment on above: Performed By: #### 5 902-2 #### JIMBO ANTHONY ([id number]) [facility] ([facility]) [address] [place] [address] 47968 Urea nitrogen [Mass/Vol] 10 mg/dL Normal 6-23 [facility] Comment on above: Performed By: #### 5 902-2 #### JIMBO ANTHONY ([id number]) [facility] ([facility]) [address] [place] [address] 56911 CBC W Auto Differential pane l (Bld)on 04-13-2023 Basophils (Bld) [#/Vol] 0.03 10*3/uL [facility] Basophils/100 WBC (Bld) 0.4 % 0.0 - 2.0 % [facility] Eosinophils (Bld) [#/Vol] 0.04 10*3/uL [facility] Eosinophils/100 WBC (Bld) 0.5 % 0.0 - 6.0 % [facility] Erythrocyte distribution width (RBC) [Ratio] 13.4 % 11.5 - 14.5 % [facility] Hematocrit (Bld) [Volume fraction] 39.6 % 36.0 - 46.0 % [facility] Hemoglobin (Bld) [Mass/Vol] 13.4 g/dL 12.0 - 16.0 g/dL [facility] Immature granulocytes (Bld) [#/Vol] 0.08 10*3/uL [facility] Immature granulocytes/100 WBC (Bld) 1.0 % High 0.0 - 0.9 % [facility] Comment on above: Immature Granulocyte Count (IG) includes promyelocytes, myelocytes and metamyelocytes but does not include bands. Percent differential counts (%) should be interpreted in the context of the absolute cell counts (cells/UL). Interpretation and review of laboratory results Abnormal [facility] Lymphocytes (Bld) [#/Vol] 1.70 10*3/uL [facility] Lymphocytes/100 WBC (Bld) 22.1 % 13.0 - 44.0 % [facility] MCH (RBC) [Entitic mass] 30.7 pg 26.0 - 34.0 pg [facility] MCHC (RBC) [Mass/Vol] 33.8 g/dL 32.0 - 36.0 g/dL [facility] MCV (RBC) [Entitic vol] 91 fL 80 - 100 fL [facility] Monocytes (Bld) [#/Vol] 0.56 10*3/uL [facility] Monocytes/100 WBC (Bld) 7.3 % 2.0 - 10.0 % [facility] Neutrophils (Bld) [#/Vol] 5.28 10*3/uL [facility] Comment on above: Percent differential counts (%) should be interpreted in the context of the absolute cell counts (cells/uL). Neutrophils/100 WBC (Bld) 68.7 % 40.0 - 80.0 % [facility] Nucleated RBC/100 WBC (Bld) [Ratio] 0.0 % [facility] Platelets (Bld) [#/Vol] 111 10*3/uL Low [facility] RBC (Bld) [#/Vol] 4.37 10*6/uL [facility] WBC (Bld) [#/Vol] 7.7 10*3/uL [facility] Basophils (Bld) [#/Vol] 0.03 x10*3/uL Normal 0.00-0.10 [facility] Comment on above: Performed By: #### 5 902-2 #### JIMBO ANTHONY ([id number]) [facility] ([facility]) [address] [place] [address] 03515 Basophils/100 WBC (Bld) 0.4 % Normal 0.0-2.0 [facility] Comment on above: Performed By: #### 5 902-2 #### JIMBO ANTHONY ([id number]) [facility] ([facility]) [address] [place] [address] 90817 Eosinophils (Bld) [#/Vol] 0.04 x10*3/uL Normal 0.00-0.70 [facility] Comment on above: Performed By: #### 5 902-2 #### JIMBO ANTHONY ([id number]) [facility] ([facility]) [address] [place] [address] 36400 Eosinophils/100 WBC (Bld) 0.5 % Normal 0.0-6.0 [facility] Comment on above: Performed By: #### 5 902-2 #### JIMBO ANTHONY ([id number]) [facility] ([facility]) [address] [place] [address] 97255 Erythrocyte distribution width (RBC) [Ratio] 13.4 % Normal 11.5-14.5 [facility] Comment on above: Performed By: #### 5 902-2 #### JIMBO ANTHONY ([id number]) [facility] ([facility]) [address] [place] [address] 97702 Hematocrit (Bld) [Volume fraction] 39.6 % Normal 36.0-46.0 [facility] Comment on above: Performed By: #### 5 902-2 #### JIMBO ANTHONY ([id number]) [facility] ([facility]) [address] [place] [address] 22304 Hemoglobin (Bld) [Mass/Vol] 13.4 g/dL Normal 12.0-16.0 [facility] Comment on above: Performed By: #### 5 902-2 #### JIMBO ANTHONY ([id number]) [facility] ([facility]) [address] [place] [address] 60026 Immature granulocytes (Bld) [#/Vol] 0.08 x10*3/uL Normal 0.00-0.70 [facility] Comment on above: Performed By: #### 5 902-2 #### JIMBO ANTHONY ([id number]) [facility] ([facility]) [address] [place] [address] 68081 Immature granulocytes/100 WBC (Bld) 1.0 % High 0.0-0.9 [facility] Comment on above: Result Comment: Mira ture Granulocyte Count (IG) includes promyelocytes, myelocytes and metamyelocytes but does not include bands. Percent differential counts (%) should be interpreted in the context of the absolute cell counts (cells/UL). Performed By: #### 5 902-2 #### JIMBO ANTHONY ([id number]) [facility] ([facility]) [address] [place] [address] 28373 Lymphocytes (Bld) [#/Vol] 1.70 x10*3/uL Normal 1.20-4.80 [facility] Comment on above: Performed By: #### 5 902-2 #### JIMBO ANTHONY ([id number]) [facility] ([facility]) [address] [place] [address] 49977 Lymphocytes/100 WBC (Bld) 22.1 % Normal 13.0-44.0 [facility] Comment on above: Performed By: #### 5 902-2 #### JIMBO ANTHONY ([id number]) [facility] ([facility]) [address] [place] [address] 65918 MCH (RBC) [Entitic mass] 30.7 pg Normal 26.0-34.0 [facility] Comment on above: Performed By: #### 5 902-2 #### JIMBO ANTHONY ([id number]) [facility] ([facility]) [address] [place] [address] 86017 MCHC (RBC) [Mass/Vol] 33.8 g/dL Normal 32.0-36.0 [facility] Comment on above: Performed By: #### 5 902-2 #### JIMBO ANTHONY ([id number]) [facility] ([facility]) [facility] [place] [address] MCV (RBC) [Entitic vol] 91 fL Normal 80-100 [facility] Comment on above: Performed By: #### 5 902-2 #### JIMBO ANTHONY ([id number]) [facility] ([facility]) [address] [place] [address] 11829 Monocytes (Bld) [#/Vol] 0.56 x10*3/uL Normal 0.10-1.00 [facility] Comment on above: Performed By: #### 5 902-2 #### JIMBO ANTHONY ([id number]) [facility] ([facility]) [address] [place] [address] 02027 Monocytes/100 WBC (Bld) 7.3 % Normal 2.0-10.0 [facility] Comment on above: Performed By: #### 5 902-2 #### JIMBO ANTHONY ([id number]) [facility] ([facility]) [address] [place] [address] 44604 Neutrophils (Bld) [#/Vol] 5.28 x10*3/uL Normal 1.20-7.70 [facility] Comment on above: Result Comment: Perc ent differential counts (%) should be interpreted in the context of the absolute cell counts (cells/uL). Performed By: #### 5 902-2 #### JIMBO ANTHONY ([id number]) [facility] ([facility]) [address] [place] [address] 07914 Neutrophils/100 WBC (Bld) 68.7 % Normal 40.0-80.0 [facility] Comment on above: Performed By: #### 5 902-2 #### JIMBO ANTHONY ([id number]) [facility] ([facility]) [address] [place] [address] 86452 Nucleated RBC/100 WBC (Bld) [Ratio] 0.0 /100 WBCs Normal 0.0-0.0 [facility] Comment on above: Performed By: #### 5 902-2 #### JIMBO ANTHONY ([id number]) [facility] ([facility]) [address] [place] [address] Platelets (Bld) [#/Vol] 111 x10*3/uL Low 150-450 [facility] Comment on above: Performed By: #### 5 902-2 #### CHOI EVELYNMARTHA ([id number]) [facility] ([facility]) [facility] [place] [address] RBC (Bld) [#/Vol] 4.37 x10*6/uL Normal 4.00-5.20 [facility] Comment on above: Performed By: #### 5 902-2 #### JIMBO ANTHONY ([id number]) [facility] ([facility]) [address] [place] [address] WBC (Bld) [#/Vol] 7.7 x10*3/uL Normal 4.4-11.3 [facility] Comment on above: Performed By: #### 5 902-2 #### JIMBO ANTHONY ([id number]) [facility] ([facility]) [address] [place] [address] CT ANGIO CHEST FOR PULMONARY EMBOLISMon 04-13-2023 CT ANGIO CHEST FOR PULMONARY EMBOLISM STUDY: CT Angiogram of the Chest; 04/13/2023 6:00 AM INDICATION: Shortness of breath, tachycardia. High risk for PE. COMPARISON: CTA chest 04/04/2023. ACCESSION NUMBER(S): [id number] ORDERING CLINICIAN: RYAN MEHTA TECHNIQUE: CTA of [...] breast tissue is not included within the obquo-[id number] in its entirety. Previously described bronchial wall [...] have improved. Signed by Tobi Peterson MD [facility] CT Chest W contrast IV and C [...] PE. COMPARISON: CTA chest 04/04/2023. ACCESSION NUMBER(S): [id number] ORDERING CLINICIAN: RYAN MEHTA TECHNIQUE: CTA of [...] breast tissue is not included within the [id number] in its entirety. Previously described bronchial wall [...] PE. COMPARISON: CTA chest 04/04/2023. ACCESSION NUMBER(S): [id number] ORDERING CLINICIAN: RYAN MEHTA TECHNIQUE: CTA of [...] breast tissue is not included within the [id number] in its entirety. Previously described bronchial wall [...] have improved. Signed by Tobi Peterson MD [facility] Work Phone: Radiology Study observation (narrative) [facility] Work Phone: CT Chest W contrast IV and C T angiogram Pulmonary arteries for pulmonary embolus W contrast IVOrdered By: Tobi Peterson on 04-13-2023 [facility] Work Phone: Coagulation surface inducedo n 04-13-2023 aPTT Coag (PPP) [Time] 32 s Normal 27-38 [facility] Comment on above: Order Comment: The A PTT is no longer used for monitoring Unfractionated Heparin Therapy. For monitoring Heparin Therapy, use the Heparin Assay. Performed By: #### 5 902-2 #### JIMBO ANTHONY ([id number]) [facility] ([facility]) [address] [place] [address] 98969 Coagulation tissue factor in ducedon 04-13-2023 PT Coag (PPP) [Time] 12.2 s Normal 9.8-12.8 [facility] Comment on above: Performed By: #### 5 902-2 #### JIMBO ANTHONY ([id number]) [facility] ([facility]) [address] [place] [address] 70917 D-Dimer, Quantitative Non VT El 04-13-2023 Fibrin D-dimer FEU (PPP) [Mass/Vol] 741 High NINF [facility] ECG 12 leadOrdered By: Jess Smart on 04-13-2023 Atrial Rate 152 BPM [facility] Work Phone: P [place] 265 degrees [facility] Work Phone: P Offset 226 ms [facility] Work Phone: P Onset 170 ms [facility] Work Phone: NC Interval 124 ms [facility] Work Phone: Q Onset 232 ms [facility] Work Phone: QRS Count 25 beats [facility] Work Phone: QRS Duration 60 ms [facility] Work Phone: QT Interval 258 ms [facility] Work Phone: QTC Calculation(Bazett) 410 ms [facility] Work Phone: QTC Fredericia 351 ms [facility] Work Phone: R [place] 33 degrees [facility] Work Phone: T [place] 83 degrees [facility] Work Phone: T Offset 361 ms [facility] Work Phone: Ventricular Rate 152 BPM [facility] Work [facility]: [facility] Work Phone: ECG 12 leadon 04-13-2023 Unusual P axis and short NC, probable junctional tachycardia Nonspecific T wave abnormality [...] Smart ([id number]) on 04/13/2023 10:27:59 PM Johana De APRN-DEMO COORDINATOR - 04/13/2023 Unusual P axis and short NC, probable junctional tachycardia Nonspecific T wave abnormality Abnormal ECG When compared with ECG of 04-APR-2023 13:33, (unconfirmed) Junctional rhythm has replaced Sinus rhythm Nonspecific T wave abnormality has replaced inverted T waves in Inferior leads Nonspecific T wave abnormality now evident in Lateral leads See ED provider note for full interpretation and clinical correlation Confirmed by Johana Smart ([id number]) on 04/13/2023 10:27:59 PM [facility] Work Phone: ECG 12-LEADon 04-13-2023 ECG 12-LEAD Ventricular Rate 135 Atrial Rate 135 P-R Interval 156 QRS Duration 62 Q-T Interval 270 QTC Calculation(Bazett) 405 P [place] 254 R [place] 17 T [place] 73 QRS Count 22 Q Onset 232 [...] Smart ([id number]) on 04/14/2023 5:11:17 PM Normal [facility] ECG 12-LEAD Ventricular Rate 152 Atrial Rate 152 P-R Interval 124 QRS Duration 60 Q-T Interval 258 QTC Calculation(Bazett) 410 P [place] 265 R [place] 33 T [place] 83 QRS Count 25 Q Onset 232 P Onset 170 P Offset 226 T Offset 361 QTC Fredericia 351 Diagnosis Unusual P axis and short NC, probable junctional tachycardia Nonspecific T wave abnormality [...] Smart ([id number]) on 04/13/2023 10:27:59 PM Normal [facility] Fibrin D-dimer FEUon 024 Fibrin D-dimer FEU (PPP) [Mass/Vol] 741 ng/mL FEU High <=500 [facility] Comment on above: Order Comment: The D -Dimer assay is reported in ng/mL Fibrinogen Equivalent Units (FEU). The results of this assay should NOT be used for the exclusion of Deep Vein Thrombosis and/or Pulmonary Embolism. Performed By: #### 5 902-2 #### JIMBO ANTHONY ([id number]) [facility] ([facility]) [facility] [place] [address] Fibrin D-dimer FEU (PPP) [Ma ss/Vol]on 04-13-2023 Interpretation and review of laboratory results Abnormal [facility] The D-Dimer assay is reported in ng/mL Fibrinogen Equivalent Units (FEU). The results of this assay should NOT be used for the exclusion of Deep Vein Thrombosis and/or Pulmonary Embolism. [facility] Free T4 [Mass/Vol]on Interpretation and review of laboratory results Normal [facility] Thyroxine Free testing is performed using different testing methodology at [facility] than at other [facility]. Direct result comparisons should only be made within the same method. Biotin can cause falsely elevated free T4 results. Patients taking a Biotin dose of up to 10 mg/day should refrain from taking Biotin for 24 hours before sample collection. Patient taking a Biotin dose of >10 mg/day should consult with their physician or the laboratory before the blood draw. [facility] Glucose Test strip manual (B ld) [Mass/Vol]on 04-13-2023 Glucose [Mass/Vol] 175 mg/dL High 74 - 99 mg/dL [facility] Interpretation and review of laboratory results Abnormal [facility] Glucose [Mass/Vol] 175 mg/dL High 74-99 [facility] Comment on above: Performed By: #### 5 7021-8 #### JIMBO ANTHONY ([id number]) [facility] ([facility]) [address] [place] [address] 63203 Glucose [Mass/Vol] 79 mg/dL 74 - 99 mg/dL [facility] Interpretation and review of laboratory results Normal [facility] Glucose [Mass/Vol] 79 mg/dL Normal 74-99 [facility] Comment on above: Performed By: #### 1 4979-9 #### JIMBO ANTHONY ([id number]) [facility] ([facility]) [facility] [place] [address] Glucose [Mass/Vol] 82 mg/dL 74 - 99 mg/dL [facility] Interpretation and review of laboratory results Normal [facility] Glucose [Mass/Vol] 82 mg/dL Normal 74-99 [facility] Comment on above: Performed By: #### 1 4979-9 #### JIMBO ANTHONY ([id number]) [facility] ([facility]) [address] [place] [address] 01596 Glucose [Mass/Vol] 155 mg/dL High 74 - 99 mg/dL [facility] Interpretation and review of laboratory results Abnormal [facility] Glucose [Mass/Vol] 155 mg/dL High 74-99 [facility] Comment on above: Performed By: #### 1 4979-9 #### JIMBO ANTHONY ([id number]) [facility] ([facility]) [address] [place] [address] 95233 Lower extremity venous duple x lefton 04-13-2023 Radiology Study observation (narrative) [facility] Work Phone: Magnesiumon 04-13-2023 Magnesium [Mass/Vol] 2.13 mg/dL 1.60 - 2.40 mg/dL [facility] Magnesium [Mass/Vol] 2.13 mg/dL Normal 1.60-2.40 [facility] Comment on above: Performed By: #### 1 4979-9 #### JIMBO ANTHONY ([id number]) [facility] ([facility]) [address] [place] [address] 15013 Magnesium [Mass/Vol] 1.17 mg/dL Low 1.60 - 2.40 mg/dL [facility] Magnesium [Mass/Vol] 1.17 mg/dL Low 1.60-2.40 [facility] Comment on above: Performed By: #### 5 902-2 #### JIMBO ANTHONY ([id number]) [facility] ([facility]) [address] [place] [address] 71606 Magnesium [Mass/Vol]on 04-13 Interpretation and review of laboratory results Normal [facility] Natriuretic peptide B [Mass/ Vol]on 04-13-2023 Interpretation and review of laboratory results Normal [facility] Natriuretic peptide B (Bld) [Mass/Vol] 65 pg/mL 0 - 99 pg/mL [facility] <100 pg/mL - Heart failure unlikely 100-299 pg/mL - Intermediate probability of acute heart failure exacerbation. Correlate with clinical context and patient history. >=300 pg/mL - Heart Failure likely. Correlate with clinical context and patient history. BNP testing is performed using different testing methodology at [facility] than at other [facility]. Direct result comparisons should only be made within the same method. [facility] Natriuretic peptide B (Bld) [Mass/Vol] 65 pg/mL Normal 0-99 [facility] Comment on above: Order Comment: The A PTT is no longer used for monitoring Unfractionated Heparin Therapy. For monitoring Heparin Therapy, use the Heparin Assay. Performed By: #### 1 4979-9 #### JIMBO ANTHONY ([id number]) [facility] ([facility]) [address] [place] [address] No Panel Informationon 04-13 Interpretation and review of laboratory results Abnormal [facility] Interpretation and review of laboratory results Normal [facility] PT Coag (PPP) [Time]on 04-13 INR Coag (PPP) [Relative time] 1.1 {INR} 0.9 - 1.1 [facility] INR Coag (PPP) [Relative time] 1.1 Normal 0.9-1.1 [facility] Comment on above: Performed By: #### 5 902-2 #### JIMBO ANTHONY ([id number]) [facility] ([facility]) [address] [place] [address] Phosphateon 04-13-2023 Phosphate [Mass/Vol] 4.0 mg/dL Normal 2.5-4.9 [facility] Comment on above: Result Comment: The performance characteristics of phosphorus testing in heparinized plasma have been validated by the individual laboratory site where testing is performed. Testing on heparinized plasma is not approved by the FDA; however, such approval is not necessary. Performed By: #### 1 4979-9 #### JIMBO ANTHONY ([id number]) [facility] ([facility]) [address] [place] [address] 72600 Phosphate [Mass/Vol]on 04-13 Interpretation and review of laboratory results Normal [facility] Phosphoruson 04-13-2023 Phosphate [Mass/Vol] 4.0 mg/dL 2.5 - 4 .9 mg/dL [facility] Comment on above: The performance flor acteristics of phosphorus testing in heparinized plasma have been validated by the individual laboratory site where testing is performed. Testing on heparinized plasma is not approved by the FDA; however, such approval is not necessary. Protime-INRon 04-13-2023 PT Coag (PPP) [Time] 12.2 s [facility] TRANSTHORACIC ECHO (TTE) COM PLETEon 04-13-2023 TRANSTHORACIC ECHO ([place]) [place] [address] ext-[phone], TRANSTHORACIC ECHOCARDIOGRAM REPORT Patient Name: JANELLE Perri PICKETT Reading Physician: [id number] Luis Daniel Barriga MD Study Date: 04/13/2023 Ordering Provider: [id number] WILLA DEL CASTILLO MRN/PID: [id number] Fellow: Nurse: Marily Wolf RN Date of /Age: 408/06/1955 / 67 years Outside Salesperson: GONZALO Katz RVT Gender: F Additional Staff: Height: 157.48 cm Admit Date: 04/13/2023 Weight: 97.07 kg Admission Status: Inpatient - Routine BSA: 1.97 m2 Department Location: [address] Blood Pressure: 113 /68 mmHg Study Type: TRANSTHORACIC ECHO (TTE) COMPLETE Diagnosis/ICD: Chest pain, unspecified-R07.9; Tachycardia, unspecified-R00.0 Indication: CP,Tachy CPT Codes: Echo Complete w Full Doppler-[id number] Patient History: Pertinent History: No previous echo. [...] LA Area A2C: 13.3 cm2 LA Major [place] A4C: 4.9 cm LA [place] A2C: 4.9 cm LA Volume Index: 14.8 [...] 1.2 m/s (0.6-0.9m/s) PV Max P.5 mmHg [id number] Luis Daniel Barriga MD Electronically signed on 04/13/2023 at 6:34:35 PM Final [facility] TSH WITH REFLEX TO FREE T4 I F ABNORMALon 04-13-2023 TSH Qn 8.58 m[IU]/L High 0.44-3.98 [facility] Comment on above: Order Comment: The A PTT is no longer used for monitoring Unfractionated Heparin Therapy. For monitoring Heparin Therapy, use the Heparin Assay. Performed By: #### 1 4979-9 #### CHOI GABRIELLE ([id number]) [facility] ([facility]) [facility] [place] [id number] TSH with reflex to Free T4 i f abnormalon 04-13-2023 Interpretation and review of laboratory results Abnormal [facility] TSH Qn 8.58 m[IU]/L High [facility] TSH testing is performed using different testing methodology at [facility] than at other [facility]. Direct result comparisons should only be made within the same method. [facility] Thyroxine, Freeon 04-13-2023 Free T4 [Mass/Vol] 0.70 ng/dL 0.61 - 1. 12 ng/dL [facility] Thyroxine.freeon 04-13-2023 Free T4 [Mass/Vol] 0.70 ng/dL Normal 0.61-1.12 [facility] Comment on above: Order Comment: The A PTT is no longer used for monitoring Unfractionated Heparin Therapy. For monitoring Heparin Therapy, use the Heparin Assay. Performed By: #### 1 4979-9 #### JIMBO ANTHONY ([id number]) [facility] ([facility]) [address] [place], [place] [id number] Tropinin I.cardiac panel Hig h sensitivity methodon 04-13-2023 Interpretation and review of laboratory results Normal [facility] Less than 99th percentile of normal range [...] performed using a different testing methodology at [facility] than at other [facility]. Direct result comparisons should only be made within the same method. [facility] Troponin I, High Sensitivity on 04-13-2023 Tropinin I.cardiac panel High sensitivity method 7 ng/L 0 - 13 ng/L [facility] Troponin I.cardiac panelon 0 04-13-2023 Tropinin I.cardiac panel High sensitivity method 7 ng/L Normal 0-13 [facility] Comment on above: Order Comment: Less [...] is performed using a differenttesting methodology at [facility] than at [facility]. Direct result comparisons should onlybe made within the same method. Performed By: #### 5 902-2 #### CHOI GABRIELLE ([id number]) [facility] ([facility]) [address] Heart TransthoracicOrdere d By: Luis Daniel Barriga on 04-13-2023 Aortic Valve Area by Continuity of Peak Velocity 1.21 [facility] Work Phone: Aortic Valve Area by Continuity of VTI 1.31 [facility] Work Phone: AV mn grad 5.0 [facility] Work Phone: AV pk grad 9.1 [facility] Work Phone: AV pk federico 1.51 [facility] Work Phone: LA vol index A/L 13.2 [facility] Work Phone: LV A4C EF 45.5 [facility] Work Phone: LV biplane EF 34 [facility] Work Phone: LVIDd 3.24 [facility] Work Phone: LVOT diam 1.70 [facility] Work Phone: Tricuspid annular plane systolic excursion 1.3 [facility] Work Phone: [facility] Work Phone: [place] [address] ext-[phone], TRANSTHORACIC ECHOCARDIOGRAM REPORT Patient Name: JANELLE Rayo PIYUSH Reading Physician: [id number] Luis Daniel Barriga MD Study Date: 04/13/2023 Ordering Provider: [id number] WILLA DEL CASTILLO MRN/PID: [id number] Fellow: Nurse: Marily Wolf RN Date of /Age: 408/06/1955 / 67 years Outside Salesperson: GONZALO Katz RVT Gender: F Additional Staff: Height: 157.48 cm Admit Date: 04/13/2023 Weight: 97.07 kg Admission Status: Inpatient - Routine BSA: 1.97 m2 Department Location: [address] Blood Pressure: 113 /68 mmHg Study Type: TRANSTHORACIC ECHO (TTE) COMPLETE Diagnosis/ICD: Chest pain, unspecified-R07.9; Tachycardia, unspecified-R00.0 Indication: CP,Tachy CPT Codes: Echo Complete w Full Doppler-[id number] Patient History: Pertinent History: No previous echo. [...] LA Area A2C: 13.3 cm2 LA [place] A4C: 4.9 cm LA [place] A2C: 4.9 cm LA Volume Index: 14.8 [...] included)... Luis Daniel Araiza MD - 04/13/2023 [place] [address] ext-[phone], TRANSTHORACIC ECHOCARDIOGRAM REPORT Patient Name: JANELLE Rayo PIYUSH Bone Physician: [id number] Luis Daniel Barriga MD Study Date: 04/13/2023 Ordering Provider: [id number] WILLA DEL CASTILLO MRN/PID: [id number] Fellow: Nurse: Marily Wolf RN Date of /Age: 408/06/1955 / 67 years Outside Salesperson: GONZALO Katz RVT Gender: F Additional Staff: Height: 157.48 cm Admit Date: 04/13/2023 Weight: 97.07 kg Admission Status: Inpatient - Routine BSA: 1.97 m2 Department Location: [address] Blood Pressure: 113 /68 mmHg Study Type: TRANSTHORACIC ECHO (TTE) COMPLETE Diagnosis/ICD: Chest pain, unspecified-R07.9; Tachycardia, unspecified-R00.0 Indication: CP,Tachy CPT Codes: Echo Complete w Full Doppler-[id number] Patient History: Pertinent History: No previous echo. [...] LA Area A2C: 13.3 cm2 LA [place] A4C: 4.9 cm LA [place] A2C: 4.9 cm LA Volume Index: 14.8 [...] 1.2 m/s (0.6-0.9m/s) PV Max P.5 mmHg [id number] Luis Daniel Barriga MD Electronically signed on 04/13/2023 at 6:34:35 PM Final [facility] Work Phone: VAS US LOWER EXTREMITY VENO US DUPLEX LEFTon 04-13-2023 VAS US LOWER EXTREMITY [place] [address] ext-[phone], Vascular Lab Report [facility] US LOWER EXTREMITY VENOUS DUPLEX LEFT Patient Name: JANELLE Bone Physician: [id number] Christian Hannah MD Study Date: 04/13/2023 Ordering Provider: [id number] WILLA DEL CASTILLO MRN/PID: [id number] Fellow: Technologist: Desi Chen RVT Date of /Age: 408/06/1955 / 67 years Technologist 2: Gender: F Admission Status: Inpatient Location Performed: [facility] Diagnosis/ICD: Pain in left leg-M79.605 Indication: Limb pain. CPT Codes: 13478 Peripheral venous duplex scan for DVT Limited [...] Spontaneous/Phasic Peroneal Yes None PTV Yes None [id number] Christian Hannah MD Final Normal [facility] aPTT Coag (PPP) [Time]on The APTT is no longe r used for monitoring Unfractionated Heparin Therapy. For monitoring Heparin Therapy, use the Heparin Assay. [facility] Basic metabolic 2000 panelon 04-05-2023 Anion gap [Moles/Vol] 12 mmol/L 10 - 2 0 mmol/L [facility] Calcium [Mass/Vol] 7.8 mg/dL Low 8.6 - 10. 3 mg/dL [facility] Chloride [Moles/Vol] 102 mmol/L 98 - 10 7 mmol/L [facility] CO2 [Moles/Vol] 24 mmol/L 21 - 32 mmol/L [facility] Creatinine [Mass/Vol] 1.14 mg/dL High 0.50 - 1.05 mg/dL [facility] GFR/1.73 sq M.predicted MDRD (S/P/Bld) [Vol rate/Area] 53 mL/min/{1.73_m2} Low - PINF [facility] Comment on above: Calculations of roxann mated GFR are performed using the 2020 CKD-EPI Study Refit equation without the race variable for the IDMS-Traceable creatinine methods. https://jasn.asnjournals.org/content//ASN.24605 15456 Glucose [Mass/Vol] 324 mg/dL High 74 - 99 mg/dL [facility] Interpretation and review of laboratory results Abnormal [facility] Potassium [Moles/Vol] 4.5 mmol/L 3.5 - 5.3 mmol/L [facility] Sodium [Moles/Vol] 133 mmol/L Low 136 - 145 mmol/L [facility] Urea nitrogen [Mass/Vol] 14 mg/dL 6 - 23 mg/dL [facility] Anion gap [Moles/Vol] 12 mmol/L Normal 10-20 [facility] Comment on above: Performed By: #### 8 9577-1 #### JIMBO ANTHONY ([id number]) [facility] ([facility]) [address] [place] [address] Calcium [Mass/Vol] 7.8 mg/dL Low 8.6-10.3 [facility] Comment on above: Performed By: #### 8 9577-1 #### JIMBO ANTHONY ([id number]) [facility] ([facility]) [facility] [place] [address] Chloride [Moles/Vol] 102 mmol/L Normal 98-107 [facility] Comment on above: Performed By: #### 8 9577-1 #### JIMBO ANTHONY ([id number]) [facility] ([facility]) [address] [place] [address] 06087 CO2 [Moles/Vol] 24 mmol/L Normal 21-32 [facility] Comment on above: Performed By: #### 8 9577-1 #### JIMBO ANTHONY ([id number]) [facility] ([facility]) [address] [place] [address] 99439 Creatinine [Mass/Vol] 1.14 mg/dL High 0.50-1.05 [facility] Comment on above: Performed By: #### 8 9577-1 #### JIMBO ANTHONY ([id number]) [facility] ([facility]) [address] [place] [address] 41700 GFR/1.73 sq M.predicted MDRD (S/P/Bld) [Vol rate/Area] 53 mL/min/1.73m*2 Low >60 [facility] Comment on above: Result Comment: Calc ulations of estimated GFR are performed using the 2020 CKD-EPI Study Refit equation without the race variable for the IDMS-Traceable creatinine methods. https://jasn.asnjournals.org/content/early/ASN.62466 27801 Performed By: #### 8 9577-1 #### JIMBO ANTHONY ([id number]) [facility] ([facility]) [address] [place] [address] 19117 Glucose [Mass/Vol] 324 mg/dL High 74-99 [facility] Comment on above: Performed By: #### 8 9577-1 #### JIMBO ANTHONY ([id number]) [facility] ([facility]) [address] [place] [address] Potassium [Moles/Vol] 4.5 mmol/L Normal 3.5-5.3 [facility] Comment on above: Performed By: #### 8 9577-1 #### JIMBO ANTHONY ([id number]) [facility] ([facility]) [address] [place] [address] Sodium [Moles/Vol] 133 mmol/L Low 136-145 [facility] Comment on above: Performed By: #### 8 9577-1 #### JIMBO ANTHONY ([id number]) [facility] ([facility]) [address] [place] [address] 30715 Urea nitrogen [Mass/Vol] 14 mg/dL Normal 6-23 [facility] Comment on above: Performed By: #### 8 9577-1 #### JIMBO ANTHONY ([id number]) [facility] ([facility]) [address] [place] [address] 02393 CBC panel Auto (Bld)on 04-05 Erythrocyte distribution width (RBC) [Ratio] 13.2 % 11.5 - 14.5 % [facility] Hematocrit (Bld) [Volume fraction] 37.9 % 36.0 - 46.0 % [facility] Hemoglobin (Bld) [Mass/Vol] 12.9 g/dL 12.0 - 16.0 g/dL [facility] Interpretation and review of laboratory results Abnormal [facility] MCH (RBC) [Entitic mass] 30.4 pg 26.0 - 34.0 pg [facility] MCHC (RBC) [Mass/Vol] 34.0 g/dL 32.0 - 36.0 g/dL [facility] MCV (RBC) [Entitic vol] 89 fL 80 - 100 fL [facility] Nucleated RBC/100 WBC (Bld) [Ratio] 0.0 % [facility] Platelets (Bld) [#/Vol] 90 10*3/uL Low [facility] RBC (Bld) [#/Vol] 4.24 10*6/uL [facility] WBC (Bld) [#/Vol] 7.6 10*3/uL [facility] Erythrocyte distribution width (RBC) [Ratio] 13.2 % Normal 11.5-14.5 [facility] Comment on above: Performed By: #### 8 9577-1 #### JIMBO ANTHONY ([id number]) [facility] ([facility]) [address] [place] [address] Hematocrit (Bld) [Volume fraction] 37.9 % Normal 36.0-46.0 [facility] Comment on above: Performed By: #### 8 9577-1 #### JIMBO ANTHONY ([id number]) [facility] H[facility] ([facility]) [address] [place] [address] 16762 Hemoglobin (Bld) [Mass/Vol] 12.9 g/dL Normal 12.0-16.0 [facility] Comment on above: Performed By: #### 8 9577-1 #### JIMBO ANTHONY ([id number]) [facility] ([facility]) [address] [place] [address] 72142 MCH (RBC) [Entitic mass] 30.4 pg Normal 26.0-34.0 [facility] Comment on above: Performed By: #### 8 9577-1 #### JIMBO ANTHONY ([id number]) [facility] ([facility]) [address] [place] [address] 68196 MCHC (RBC) [Mass/Vol] 34.0 g/dL Normal 32.0-36.0 [facility] Comment on above: Performed By: #### 8 9577-1 #### JIMBO ANTHONY ([id number]) [facility] ([facility]) [address] [place] [address] 81145 MCV (RBC) [Entitic vol] 89 fL Normal 80-100 [facility] Comment on above: Performed By: #### 8 9577-1 #### JIMBO ANTHONY ([id number]) [facility] ([facility]) [address] [place] [address] 23765 Nucleated RBC/100 WBC (Bld) [Ratio] 0.0 /100 WBCs Normal 0.0-0.0 [facility] Comment on above: Performed By: #### 8 9577-1 #### JIMBO ANTHONY ([id number]) [facility] ([facility]) [address] [place] [address] 13127 Platelets (Bld) [#/Vol] 90 x10*3/uL Low 150-450 [facility] Comment on above: Performed By: #### 8 9577-1 #### JIMBO ANTHONY ([id number]) [facility] ([facility]) [address] [place] [address] 11622 RBC (Bld) [#/Vol] 4.24 x10*6/uL Normal 4.00-5.20 [facility] Comment on above: Performed By: #### 8 9577-1 #### JIMBO ANTHONY ([id number]) [facility] ([facility]) [address] [place] [address] 38302 WBC (Bld) [#/Vol] 7.6 x10*3/uL Normal 4.4-11.3 [facility] Comment on above: Performed By: #### 8 9577-1 #### JIMBO ANTHONY ([id number]) [facility] ([facility]) [address] [place] [address] 88084 Glucose Test strip manual (B ld) [Mass/Vol]on 04-05-2023 Glucose [Mass/Vol] 308 mg/dL High 74 - 99 mg/dL [facility] Interpretation and review of laboratory results Abnormal [facility] Glucose [Mass/Vol] 308 mg/dL High 74-99 [facility] Comment on above: Performed By: #### 5 902-2 #### JIMBO ANTHONY ([id number]) [facility] ([facility]) [address] [place] [address] 79919 Glucose [Mass/Vol] 303 mg/dL High 74 - 99 mg/dL [facility] Interpretation and review of laboratory results Abnormal [facility] Glucose [Mass/Vol] 303 mg/dL High 74-99 [facility] Comment on above: Performed By: #### 5 902-2 #### JIMBO ANTHONY ([id number]) [facility] ([facility]) [address] [place] [address] 12270 Magnesiumon 04-05-2023 Magnesium [Mass/Vol] 2.09 mg/dL 1.60 - 2.40 mg/dL [facility] Magnesium [Mass/Vol] 2.09 mg/dL Normal 1.60-2.40 [facility] Comment on above: Performed By: #### 5 902-2 #### JIMBO ANTHONY ([id number]) [facility] ([facility]) [address] [place] [address] 55286 Magnesium [Mass/Vol]on 04-05 Interpretation and review of laboratory results Normal [facility] Bacteria identifiedon 2022 Bacteria identified Cx Nom (Bld) Test: Blood Culture Specimen Source: Peripheral Arterial Puncture Specimen Type: Blood culture Specimen Date: 04/04/2023 2:14 PM Result Date: 04/09/2023 6:01 AM Result Status: Final result Abnormal: No Resulting Lab: [facility] [address] [place] [address] CULTURE No growth at 4 days - FINAL REPORT Normal [facility] Comment on above: Performed By: #### 8 9577-1 #### JIMBO ANTHONY ([id number]) [facility] ([facility]) [address] [place] [address] 53623 Bacteria identified Cx Nom (Bld) Test: Blood Culture Specimen Source: Peripheral Venipuncture Specimen Type: Blood culture Specimen Date: 04/04/2023 2:14 PM Result Date: 04/09/2023 6:01 AM Result Status: Final result Abnormal: No Resulting Lab: [facility] [address] [address] CULTURE No growth at 4 days - FINAL REPORT Normal [facility] Comment on above: Performed By: #### 8 9577-1 #### CHOI GABRIELLE ([id number]) [facility] ([facility]) [address] [place] [address] CBC W Auto Differential pane l (Bld)on 04-04-2023 Basophils (Bld) [#/Vol] 0.03 10*3/uL [facility] Basophils/100 WBC (Bld) 0.4 % 0.0 - 2.0 % [facility] Eosinophils (Bld) [#/Vol] 0.05 10*3/uL [facility] Eosinophils/100 WBC (Bld) 0.6 % 0.0 - 6.0 % [facility] Erythrocyte distribution width (RBC) [Ratio] 13.3 % 11.5 - 14.5 % [facility] Hematocrit (Bld) [Volume fraction] 42.2 % 36.0 - 46.0 % [facility] Hemoglobin (Bld) [Mass/Vol] 14.3 g/dL 12.0 - 16.0 g/dL [facility] Immature granulocytes (Bld) [#/Vol] 0.08 10*3/uL [facility] Immature granulocytes/100 WBC (Bld) 1.0 % High 0.0 - 0.9 % [facility] Comment on above: Immature Granulocyte Count (IG) includes promyelocytes, myelocytes and metamyelocytes but does not include bands. Percent differential counts (%) should be interpreted in the context of the absolute cell counts (cells/UL). Interpretation and review of laboratory results Abnormal [facility] Lymphocytes (Bld) [#/Vol] 1.89 10*3/uL [facility] Lymphocytes/100 WBC (Bld) 23.5 % 13.0 - 44.0 % [facility] MCH (RBC) [Entitic mass] 30.4 pg 26.0 - 34.0 pg [facility] MCHC (RBC) [Mass/Vol] 33.9 g/dL 32.0 - 36.0 g/dL [facility] MCV (RBC) [Entitic vol] 90 fL 80 - 100 fL [facility] Monocytes (Bld) [#/Vol] 0.47 10*3/uL [facility] Monocytes/100 WBC (Bld) 5.9 % 2.0 - 10.0 % [facility] Neutrophils (Bld) [#/Vol] 5.51 10*3/uL [facility] Comment on above: Percent differential counts (%) should be interpreted in the context of the absolute cell counts (cells/uL). Neutrophils/100 WBC (Bld) 68.6 % 40.0 - 80.0 % [facility] Nucleated RBC/100 WBC (Bld) [Ratio] 0.0 % [facility] Platelets (Bld) [#/Vol] 113 10*3/uL Low [facility] RBC (Bld) [#/Vol] 4.71 10*6/uL [facility] WBC (Bld) [#/Vol] 8.0 10*3/uL [facility] Basophils (Bld) [#/Vol] 0.03 x10*3/uL Normal 0.00-0.10 [facility] Comment on above: Performed By: #### 5 7021-8 #### JIMBO ANTHONY ([id number]) [facility] ([facility]) [address] [place] [address] 70242 Basophils/100 WBC (Bld) 0.4 % Normal 0.0-2.0 [facility] Comment on above: Performed By: #### 5 7021-8 #### JIMBO ANTHONY ([id number]) [facility] ([facility]) [address] [place] [address] 12896 Eosinophils (Bld) [#/Vol] 0.05 x10*3/uL Normal 0.00-0.70 [facility] Comment on above: Performed By: #### 5 7021-8 #### JIMBO ANTHONY ([id number]) [facility] ([facility]) [address] [place] [address] 12227 Eosinophils/100 WBC (Bld) 0.6 % Normal 0.0-6.0 [facility] Comment on above: Performed By: #### 5 7021-8 #### JIMBO ANTHONY ([id number]) [facility] ([facility]) [address] [place] [address] Erythrocyte distribution width (RBC) [Ratio] 13.3 % Normal 11.5-14.5 [facility] Comment on above: Performed By: #### 5 7021-8 #### JIMBO ANTHONY ([id number]) [facility] ([facility]) [address] [place] [address] Hematocrit (Bld) [Volume fraction] 42.2 % Normal 36.0-46.0 [facility] Comment on above: Performed By: #### 5 7021-8 #### JIMBO ANTHONY ([id number]) [facility] ([facility]) [address] [place] [address] Hemoglobin (Bld) [Mass/Vol] 14.3 g/dL Normal 12.0-16.0 [facility] Comment on above: Performed By: #### 5 7021-8 #### JIMBO ANTHONY ([id number]) [facility] ([facility]) [address] [place] [address] Immature granulocytes (Bld) [#/Vol] 0.08 x10*3/uL Normal 0.00-0.70 [facility] Comment on above: Performed By: #### 5 7021-8 #### JIMBO ANTHONY ([id number]) [facility] ([facility]) [address] [place] [address] Immature granulocytes/100 WBC (Bld) 1.0 % High 0.0-0.9 [facility] Comment on above: Result Comment: Mira ture Granulocyte Count (IG) includes promyelocytes, myelocytes and metamyelocytes but does not include bands. Percent differential counts (%) should be interpreted in the context of the absolute cell counts (cells/UL). Performed By: #### 5 7021-8 #### JIMBO ANTHONY ([id number]) [facility] ([facility]) [address] [place] [address] Lymphocytes (Bld) [#/Vol] 1.89 x10*3/uL Normal 1.20-4.80 [facility] Comment on above: Performed By: #### 5 7021-8 #### JIMBO ANTHONY ([id number]) [facility] ([facility]) [address] [place] [address] 40882 Lymphocytes/100 WBC (Bld) 23.5 % Normal 13.0-44.0 [facility] Comment on above: Performed By: #### 5 7021-8 #### JIMBO ANTHONY ([id number]) [facility] ([facility]) [address] [place] [address] 64893 MCH (RBC) [Entitic mass] 30.4 pg Normal 26.0-34.0 [facility] Comment on above: Performed By: #### 5 7021-8 #### JIMBO ANTHONY ([id number]) [facility] ([facility]) [address] [place] [address] 10586 MCHC (RBC) [Mass/Vol] 33.9 g/dL Normal 32.0-36.0 [facility] Comment on above: Performed By: #### 5 7021-8 #### JIMBO ANTHONY ([id number]) [facility] ([facility]) [address] [place] [address] 18418 MCV (RBC) [Entitic vol] 90 fL Normal 80-100 [facility] Comment on above: Performed By: #### 5 7021-8 #### JIMOB ANTHONY ([id number]) [facility] ([facility]) [address] [place] [address] 23788 Monocytes (Bld) [#/Vol] 0.47 x10*3/uL Normal 0.10-1.00 [facility] Comment on above: Performed By: #### 5 7021-8 #### JIMBO ANTHONY ([id number]) [facility] ([facility]) [address] [place] [address] 51598 Monocytes/100 WBC (Bld) 5.9 % Normal 2.0-10.0 [facility] Comment on above: Performed By: #### 5 7021-8 #### JIMBO ANTHONY ([id number]) [facility] ([facility]) [facility] [place] [address] Neutrophils (Bld) [#/Vol] 5.51 x10*3/uL Normal 1.20-7.70 [facility] Comment on above: Result Comment: Perc ent differential counts (%) should be interpreted in the context of the absolute cell counts (cells/uL). Performed By: #### 5 7021-8 #### JIMBO ANTHONY ([id number]) [facility] ([facility]) [address] [place] [address] 19074 Neutrophils/100 WBC (Bld) 68.6 % Normal 40.0-80.0 [facility] Comment on above: Performed By: #### 5 7021-8 #### JIMBO ANTHONY ([id number]) [facility] ([facility]) [address] [place] [address] 45889 Nucleated RBC/100 WBC (Bld) [Ratio] 0.0 /100 WBCs Normal 0.0-0.0 [facility] Comment on above: Performed By: #### 5 7021-8 #### JIMBO ANTHONY ([id number]) [facility] ([facility]) [address] [place] [address] 11988 Platelets (Bld) [#/Vol] 113 x10*3/uL Low 150-450 [facility] Comment on above: Performed By: #### 5 7021-8 #### JIMBO ANTHONY ([id number]) [facility] ([facility]) [address] [place] [address] 65327 RBC (Bld) [#/Vol] 4.71 x10*6/uL Normal 4.00-5.20 [facility] Comment on above: Performed By: #### 5 7021-8 #### JIMBO ANTHONY ([id number]) [facility] ([facility]) [address] [place] [address] 75568 WBC (Bld) [#/Vol] 8.0 x10*3/uL Normal 4.4-11.3 [facility] Comment on above: Performed By: #### 5 7021-8 #### CHOI GABRIELLE ([id number]) [facility] ([facility]) [address] [place] [address] CT ANGIO CHEST FOR PULMONARY EMBOLISMon 04-04-2023 CT ANGIO CHEST FOR PULMONARY EMBOLISM STUDY: CT Angiogram of the Chest; 04/04/23 at 10:10 AM INDICATION: New onset Afib. Leg pain. COMPARISON: CT AP 10/18/22. Chest XR 09/22/21. ACCESSION NUMBER(S): [id number] ORDERING CLINICIAN: BALBIR TAVARES TECHNIQUE: CTA of [...] adrenal adenoma. Signed by Loyd Diaz MD [facility] CT Chest W contrast IV and C [...] AP 10/18/22. Chest XR 09/22/21. ACCESSION NUMBER(S): [id number] ORDERING CLINICIAN: BALBIR TAVARES TECHNIQUE: CTA of [...] AP 10/18/22. Chest XR 09/22/21. ACCESSION NUMBER(S): [id number] ORDERING CLINICIAN: BALBIR TAVARES TECHNIQUE: CTA of [...] adrenal adenoma. Signed by Loyd Diaz MD [facility] Work Phone: Radiology Study observation (narrative) [facility] Work Phone: CT Chest W contrast IV and C T angiogram Pulmonary arteries for pulmonary embolus W contrast IVOrdered By: Loyd Diaz on 04-04-2023 [facility] Work Phone: Coagulation surface inducedo n 04-04-2023 aPTT Coag (PPP) [Time] 34 s Normal 27-38 [facility] Comment on above: Order Comment: The A PTT is no longer used for monitoring Unfractionated Heparin Therapy. For monitoring Heparin Therapy, use the Heparin Assay. Performed By: #### 1 4979-9 #### JIMBO ANTHONY ([id number]) [facility] ([facility]) [address] [place], [place] [id number] Coagulation tissue factor in ducedon 04-04-2023 PT Coag (PPP) [Time] 12.7 s Normal 9.8-12.8 [facility] Comment on above: Performed By: #### 5 902-2 #### JIMBO ANTHONY ([id number]) [facility] ([facility]) [facility] [place] [address] Comprehensive metabolic 2000 panelon 12-25-2023 Albumin BCP dye [Mass/Vol] 3.1 g/dL Low 3.4 - 5.0 g/dL [facility] ALP [Catalytic activity/Vol] 82 U/L 33 - 136 U/L [facility] ALT With P-5'-P [Catalytic activity/Vol] 11 U/L 7 - 45 U/L [facility] Comment on above: Patients treated wit h Sulfasalazine may generate falsely decreased results for ALT. Anion gap [Moles/Vol] 11 mmol/L 10 - 2 0 mmol/L [facility] AST With P-5'-P [Catalytic activity/Vol] 14 U/L 9 - 39 U/L [facility] Bilirubin [Mass/Vol] 0.4 mg/dL 0.0 - 1 .2 mg/dL [facility] Calcium [Mass/Vol] 8.4 mg/dL Low 8.6 - 10. 3 mg/dL [facility] Chloride [Moles/Vol] 104 mmol/L 98 - 10 7 mmol/L [facility] CO2 [Moles/Vol] 27 mmol/L 21 - 32 mmol/L [facility] Creatinine [Mass/Vol] 1.04 mg/dL 0.50 - 1.05 mg/dL [facility] GFR/1.73 sq M.predicted MDRD (S/P/Bld) [Vol rate/Area] 59 mL/min/{1.73_m2} Low - PINF [facility] Comment on above: Calculations of roxann mated GFR are performed using the 2020 CKD-EPI Study Refit equation without the race variable for the IDMS-Traceable creatinine methods. https://jasn.asnjournals.org/content/early/ASN.95143 22222 Glucose [Mass/Vol] 136 mg/dL High 74 - 99 mg/dL [facility] Interpretation and review of laboratory results Abnormal [facility] Potassium [Moles/Vol] 3.9 mmol/L 3.5 - 5.3 mmol/L [facility] Protein [Mass/Vol] 6.7 g/dL 6.4 - 8.2 g/dL [facility] Sodium [Moles/Vol] 138 mmol/L 136 - 145 mmol/L [facility] Urea nitrogen [Mass/Vol] 9 mg/dL 6 - 23 mg/dL [facility] Albumin BCP dye [Mass/Vol] 3.1 g/dL Low 3.4-5.0 [facility] Comment on above: Performed By: #### 2 4323-8 #### JIMBO ANTHONY ([id number]) [facility] ([facility]) [address] [place] [address] ALP [Catalytic activity/Vol] 82 U/L Normal 33-136 [facility] Comment on above: Performed By: #### 2 4323-8 #### JIMBO ANTHONY ([id number]) [facility] ([facility]) [address] [place] [address] 24447 ALT With P-5'-P [Catalytic activity/Vol] 11 U/L Normal 7-45 [facility] Comment on above: Result Comment: Stephany ents treated with Sulfasalazine may generate falsely decreased results for ALT. Performed By: #### 2 4323-8 #### JIMBO ANTHONY ([id number]) [facility] ([facility]) [address] [place] [address] Anion gap [Moles/Vol] 11 mmol/L Normal 10-20 [facility] Comment on above: Performed By: #### 2 4323-8 #### JIMBO ANTHONY ([id number]) [facility] ([facility]) [facility] [place] [address] AST With P-5'-P [Catalytic activity/Vol] 14 U/L Normal 9-39 [facility] Comment on above: Performed By: #### 2 4323-8 #### JIMBO ANTHONY ([id number]) [facility] ([facility]) [facility] [place] [address] Bilirubin [Mass/Vol] 0.4 mg/dL Normal 0.0-1.2 [facility] Comment on above: Performed By: #### 2 4323-8 #### JIMBO ANTHONY ([id number]) [facility] ([facility]) [address] [place] [address] 31396 Calcium [Mass/Vol] 8.4 mg/dL Low 8.6-10.3 [facility] Comment on above: Performed By: #### 2 4323-8 #### JIMBO ANTHONY ([id number]) [facility] ([facility]) [address] [place] [address] Chloride [Moles/Vol] 104 mmol/L Normal 98-107 [facility] Comment on above: Performed By: #### 2 4323-8 #### JIMBO ANTHONY ([id number]) [facility] ([facility]) [address] [place] [address] CO2 [Moles/Vol] 27 mmol/L Normal 21-32 [facility] Comment on above: Performed By: #### 2 4323-8 #### JIMBO ANTHONY ([id number]) [facility] ([facility]) [facility] [place] [address] Creatinine [Mass/Vol] 1.04 mg/dL Normal 0.50-1.05 [facility] Comment on above: Performed By: #### 2 4323-8 #### JIMBO ANTHONY ([id number]) [facility] ([facility]) [address] [place] [address] 66930 GFR/1.73 sq M.predicted MDRD (S/P/Bld) [Vol rate/Area] 59 mL/min/1.73m*2 Low >60 [facility] Comment on above: Result Comment: Calc ulations of estimated GFR are performed using the 2020 CKD-EPI Study Refit equation without the race variable for the IDMS-Traceable creatinine methods. https://jasn.asnjournals.org/content//ASN.93576 75848 Performed By: #### 2 4323-8 #### JIMBO ANTHONY ([id number]) [facility] ([facility]) [facility] [place] [address] Glucose [Mass/Vol] 136 mg/dL High 74-99 [facility] Comment on above: Performed By: #### 2 4323-8 #### JIMBO ANTHONY ([id number]) [facility] ([facility]) [address] [place] [address] 29206 Potassium [Moles/Vol] 3.9 mmol/L Normal 3.5-5.3 [facility] Comment on above: Performed By: #### 2 4323-8 #### JIMBO ANTHONY ([id number]) [facility] ([facility]) [address] [place] [address] 99211 Protein [Mass/Vol] 6.7 g/dL Normal 6.4-8.2 [facility] Comment on above: Performed By: #### 2 4323-8 #### JIMBO ANTHONY ([id number]) [facility] ([facility]) [address] [place] [address] 26772 Sodium [Moles/Vol] 138 mmol/L Normal 136-145 [facility] Comment on above: Performed By: #### 2 4323-8 #### JIMBO ANTHONY ([id number]) [facility] ([facility]) [address] [place] [address] 85115 Urea nitrogen [Mass/Vol] 9 mg/dL Normal 6-23 [facility] Comment on above: Performed By: #### 2 4323-8 #### JIMBO ANTHONY ([id number]) [facility] ([facility]) [address] [place] [address] 10853 ECG 12-LEADon 04-04-2023 ECG 12-LEAD Ventricular Rate 137 Atrial Rate 137 P-R Interval 82 QRS Duration 62 Q-T Interval 376 QTC Calculation(Bazett) 567 R [place] -6 T [place] 7 QRS Count 22 Q Onset 219 P Onset 178 P Offset 205 T Offset 407 QTC Fredericia 495 Diagnosis Sinus tachycardia with short NC Low voltage QRS Borderline ECG When compared with ECG of 04-APR-2023 12:43, (unconfirmed) Questionable change in QRS axis ST no longer depressed in Inferior leads ST no longer depressed in Anterolateral leads See ED provider note for full interpretation and clinical correlation Confirmed by Mignon Hauser ([id number]) on 04/20/2023 3:06:17 PM Normal [facility] ECG 12-LEAD Ventricular Rate 140 Atrial Rate 140 P-R Interval 74 QRS Duration 62 Q-T Interval 340 QTC Calculation(Bazett) 519 R [place] 5 T [place] 29 QRS Count 23 Q Onset 231 P Onset 194 P Offset 225 T Offset 401 QTC Fredericia 451 Diagnosis Sinus tachycardia with short NC with occasional Premature ventricular complexes Low voltage QRS T wave abnormality, consider inferior ischemia T wave abnormality, consider anterior ischemia Abnormal ECG When compared with ECG of 04-APR-2023 08:26, (unconfirmed) Significant changes have occurred See ED provider note for full interpretation and clinical correlation Confirmed by Mignon Hauser ([id number]) on 04/20/2023 3:04:43 PM Normal [facility] Extra Urine Haley Tubeon 03-12 Extra Tube Hold for add-ons. [facility] Comment on above: Auto resulted. [facility] FLUAV and FLUBV RNA JACKIE+prob e Nom (Unsp spec)on 04-04-2023 FLUAV RNA JACKIE+probe Ql (Resp) Not detected Not Detected [facility] FLUBV RNA JACKIE+probe Ql (Resp) Not detected Not Detected [facility] This assay is an in vitro diagnostic multiplex nucleic acid amplification test for the detection and discrimination of Influenza A & B from nasopharyngeal specimens, and has been validated for use at [facility]. Negative results do not preclude Influenza A/B infections, and should not be used as the sole basis for diagnosis, treatment, or other management decisions. If Influenza A/B and RSV PCR results are negative, testing for Parainfluenza virus, Adenovirus and Metapneumovirus is routinely performed for [facility] pediatric oncology and intensive care inpatients, and is available on other patients by placing an add-on request. [facility] FLUAV RNA JACKIE+probe Ql (Resp) Not detected Normal Not Detected [facility] Comment on above: Order Comment: Less [...] performed using a different testing methodology at [facility] than at [facility]. Direct result comparisons should only be made within the same method. Performed By: #### 8 9577-1 #### JIMBO ANTHONY ([id number]) [facility] ([facility]) [address] [place] [address] FLUBV RNA JACKIE+probe Ql (Resp) Not detected Normal Not Detected [facility] Comment on above: Order Comment: Less [...] performed using a different testing methodology at [facility] than at [facility]. Direct result comparisons should only be made within the same method. Performed By: #### 8 9577-1 #### JIMBO ANTHONY ([id number]) [facility] ([facility]) [address] [place] [address] Glucose Test strip manual (B ld) [Mass/Vol]on 04-04-2023 Glucose [Mass/Vol] 293 mg/dL High 74 - 99 mg/dL [facility] Interpretation and review of laboratory results Abnormal [facility] Glucose [Mass/Vol] 293 mg/dL High 74-99 [facility] Comment on above: Performed By: #### 8 9577-1 #### JIMBO ANTHONY ([id number]) [facility] ([facility]) [address] [place] [address] Glucose [Mass/Vol] 231 mg/dL High 74 - 99 mg/dL [facility] Interpretation and review of laboratory results Abnormal [facility] Glucose [Mass/Vol] 231 mg/dL High 74-99 [facility] Comment on above: Performed By: #### 8 9577-1 #### JIMBO ANTHONY ([id number]) [facility] ([facility]) [address] [place] [address] Magnesiumon 04-04-2023 Magnesium [Mass/Vol] 1.24 mg/dL Low 1.60 - 2.40 mg/dL [facility] Magnesium [Mass/Vol] 1.24 mg/dL Low 1.60-2.40 [facility] Comment on above: Performed By: #### 1 9123-9 #### JIMBO ANTHONY ([id number]) [facility] ([facility]) [address] [place] [address] Magnesium [Mass/Vol]on 04-04 Interpretation and review of laboratory results Abnormal [facility] No Panel Informationon 04-04 Interpretation and review of laboratory results Normal [facility] Interpretation and review of laboratory results Normal [facility] Interpretation and review of laboratory results Normal [facility] PT Coag (PPP) [Time]on 04-04 INR Coag (PPP) [Relative time] 1.1 {INR} 0.9 - 1.1 [facility] INR Coag (PPP) [Relative time] 1.1 Normal 0.9-1.1 [facility] Comment on above: Performed By: #### 5 902-2 #### JIMBO ANTHONY ([id number]) [facility] ([facility]) [address] [place] [address] Protime-INRon 04-04-2023 PT Coag (PPP) [Time] 12.7 s [facility] SARS coronavirus 2 RNAon SARS-CoV-2 (COVID-19) RNA JACKIE+probe Ql (Resp) Not detected Normal Not Detected [facility] Comment on above: Order Comment: Less [...] performed using a different testing methodology at [facility] than at [facility]. Direct result comparisons should only be made within the same method. Performed By: #### 8 9577-1 #### CHOI GABRIELLE ([id number]) [facility] ([facility]) [address] [place] [address] SARS-CoV-2 (COVID-19) RNA NA A+probe Ql (Resp)on [...] and has been validated for use at [facility]. Negative results do not preclude COVID-19 infections and should not be used as the sole basis for diagnosis, treatment, or other management decisions. [facility] SARS-CoV-2 RT PCRon 04-04-20 SARS-CoV-2 (COVID-19) RNA JACKIE+probe Ql (Resp) Not detected Not Detected [facility] TSH WITH REFLEX TO FREE T4 I F ABNORMALon 04-04-2023 TSH Qn 2.91 m[IU]/L Normal 0.44-3.98 [facility] Comment on above: Order Comment: Less [...] performed using a different testing methodology at [facility] than at other [facility]. Direct result comparisons should only be made within the same method. Performed By: #### 8 9577-1 #### COHI GABRIELLE ([id number]) [facility] ([facility]) [address] [place] [address] TSH with reflex to Free T4 i f abnormalon 04-04-2023 TSH Qn 2.91 m[IU]/L [facility] TSH testing is performed using different testing methodology at [facility] than at other [facility]. Direct result comparisons should only be made within the same method. [facility] Tropinin I.cardiac panel Hig h sensitivity methodon [...] performed using a different testing methodology at [facility] than at other [facility]. Direct result comparisons should only be made within the same method. [facility] Interpretation and review of laboratory results Normal [facility] Less than 99th percentile of normal range [...] performed using a different testing methodology at [facility] than at [facility]. Direct result comparisons should only be made within the same method. [facility] Troponin I, High Sensitivity on 04-04-2023 Tropinin I.cardiac panel High sensitivity method 4 ng/L 0 - 13 ng/L [facility] Tropinin I.cardiac panel High sensitivity method 5 ng/L 0 - 13 ng/L [facility] Troponin I.cardiac panelon 1 06-05-2022 Tropinin I.cardiac panel High sensitivity method 4 ng/L Normal 0-13 [facility] Comment on above: Order Comment: Less [...] performed using a different testing methodology at [facility] than at [facility]. Direct result comparisons should only be made within the same method. Performed By: #### 8 9577-1 #### CHOI GABRIELLE ([id number]) [facility] ([facility]) [address] [id number] Tropinin I.cardiac panel High sensitivity method 5 ng/L Normal 0-13 [facility] Comment on above: Order Comment: Less [...] performed using a different testing methodology at [facility] than at other [facility]. Direct result comparisons should only be made within the same method. Performed By: #### 8 9577-1 #### CHOI GABRIELLE ([id number]) [facility] ([facility]) [address] [id number] Urinalysis complete W Reflex Culture panel (U)on 04-04-2023 Appearance (U) Hazy Abnormal Clear [facility] Bacteria Auto (Urine sed) [#/Area] 1+ Abnormal NONE SEEN /HPF [facility] Bilirubin (U) [Mass/Vol] Negative NEGATIVE [facility] Color (U) Yellow Straw, Yellow [facility] Epithelial cells.squamous Auto (Urine sed) [#/Area] 1-9 (SPARSE) Reference range not established. /HPF [facility] Glucose Auto test strip (U) [Mass/Vol] Negative NEGATIVE mg/dL [facility] Interpretation and review of laboratory results Abnormal [facility] Ketones (U) [Mass/Vol] Negative NEGAT ABDELRAHMAN mg/dL [facility] Leukocyte esterase Auto test strip Ql (U) Negative NEGATIVE [facility] Nitrite Auto test strip Ql (U) Negative NEGATIVE [facility] pH (U) 5.0 [pH] 5.0, 5.5, 6.0, 6.5, 7.0, 7.5, 8.0 [facility] Protein (U) [Mass/Vol] 100 (2+) Abnormal NEGAT ABDELRAHMAN mg/dL [facility] RBC (U) [#/Vol] SMALL (1+) Abnormal NEGATIVE [facility] RBC Auto (Urine sed) [#/Area] 1-2 NONE, 1-2, 3-5 /HPF [facility] Specific gravity (U) [Rel density] 1.026 1.005 - 1.035 [facility] Urobilinogen (U) [Mass/Vol] mg/dL NINF - 2.0 mg/dL [facility] WBC Auto (Urine sed) [#/Area] 1-5 1-5, NONE /HPF [facility] Appearance (U) Hazy Normal Clear [facility] Comment on above: Performed By: #### 5 8077-9 #### JIMBO ANTHONY ([id number]) [facility] ([facility]) [address] [place] [address] Bacteria Auto (Urine sed) [#/Area] 1+ /HPF Abnormal NONE SEEN [facility] Comment on above: Performed By: #### 5 8077-9 #### JIMBO ANTHONY ([id number]) [facility] ([facility]) [address] [place] [address] Bilirubin (U) [Mass/Vol] Negative Normal NEGATIVE [facility] Comment on above: Performed By: #### 5 8077-9 #### JIMBO ANTHONY ([id number]) [facility] ([facility]) [address] [place] [address] Color (U) Yellow Normal Straw, Yellow [facility] Comment on above: Performed By: #### 5 8077-9 #### JIMBO ANTHONY ([id number]) [facility] ([facility]) [address] [place] [address] Epithelial cells.squamous Auto (Urine sed) [#/Area] 1-9 (SPARSE) Normal Reference range not established. [facility] Comment on above: Performed By: #### 5 8077-9 #### JIMBO ANTHONY ([id number]) [facility] ([facility]) [address] [place] [address] Glucose Auto test strip (U) [Mass/Vol] Negative Normal NEGATIVE [facility] Comment on above: Performed By: #### 5 8077-9 #### JIMBO ANTHONY ([id number]) [facility] ([facility]) [address] [place] [address] Ketones (U) [Mass/Vol] Negative Normal NEGATIVE Un [facility] Comment on above: Performed By: #### 5 8077-9 #### JIMBO ANTHONY ([id number]) [facility] ([facility]) [address] [place] [address] Leukocyte esterase Auto test strip Ql (U) Negative Normal NEGATIVE [facility] Comment on above: Performed By: #### 5 8077-9 #### JIMBO ANTHONY ([id number]) [facility] ([facility]) [address] [place] [address] Nitrite Auto test strip Ql (U) Negative Normal NEGATIVE [facility] Comment on above: Performed By: #### 5 8077-9 #### JIMBO ANTHONY ([id number]) [facility] ([facility]) [address] [place] [address] pH (U) 5.0 [pH] Normal 5.0, 5.5, 6.0, 6.5, 7.0, 7.5, 8.0 [facility] Comment on above: Performed By: #### 5 8077-9 #### JIMBO ANTHONY ([id number]) [facility] ([facility]) [address] [place] [address]93[address] Protein (U) [Mass/Vol] 100 (2+) Normal NEGATIVE [facility] Comment on above: Performed By: #### 5 8077-9 #### JIMBO ANTHONY ([id number]) [facility] ([facility]) [address] [place] [address] 80951 RBC (U) [#/Vol] SMALL (1+) Abnormal NEGATIVE [facility] Comment on above: Performed By: #### 5 8077-9 #### JIMBO ANTHONY ([id number]) [facility] ([facility]) [address] [place] [address] 08382 RBC Auto (Urine sed) [#/Area] 1-2 Normal NONE, 1-2, 3-5 [facility] Comment on above: Performed By: #### 5 8077-9 #### JIMBO ANTHONY ([id number]) [facility] ([facility]) [address] [place] [address] Specific gravity (U) [Rel density] 1.026 Normal 1.005-1.035 [facility] Comment on above: Performed By: #### 5 8077-9 #### JIMBO ANTHONY ([id number]) [facility] ([facility]) [address] [place] [address] Urobilinogen (U) [Mass/Vol] mg/dL Normal <2.0 [facility] Comment on above: Performed By: #### 5 8077-9 #### JIMBO ANTHONY ([id number]) [facility] ([facility]) [address] [place] [address] WBC Auto (Urine sed) [#/Area] 1-5 Normal 1-5, NONE [facility] Comment on above: Performed By: #### 5 8077-9 #### JIMBO ANTHONY ([id number]) [facility] ([facility]) [address] [place] [address] XR KNEE LEFT 4+ VIEWSon 03-12 XR KNEE LEFT 4+ VIEWS Interpreted By: Sharyn Carranza, STUDY: XR KNEE LEFT 4+ VIEWS; ; 04/04/2023 12:22 pm INDICATION: Signs/Symptoms:knee pain. COMPARISON: None. ACCESSION NUMBER(S): [id number] ORDERING CLINICIAN: BALBIR TAVARES FINDINGS: Minimal medial compartment narrowing. No acute fracture dislocation or bone lesion. No joint effusion. IMPRESSION: No acute findings. MACRO: None Signed by: Sharyn Carranza 04/04/2023 12:31 PM Dictation workstation: [id number] Normal [facility] XR Knee - left 4 Viewson No acute findings. MACRO: None Signed by: Sharyn Carranza 04/04/2023 12:31 PM Dictation workstation: [id number] [facility] Interpreted By: Sharyn Carranza, STUDY: XR KNEE LEFT 4+ VIEWS; ; 04/04/2023 12:22 pm INDICATION: Signs/Symptoms:knee pain. COMPARISON: None. ACCESSION NUMBER(S): [id number] ORDERING CLINICIAN: BALBIR TAVARES FINDINGS: Minimal medial compartment narrowing. No acute fracture dislocation or bone lesion. No joint effusion. [facility] Sharyn Carranza MD - 04/04/2023 Interpreted By: Sharyn Carranza, STUDY: XR KNEE LEFT 4+ VIEWS; ; 04/04/2023 12:22 pm INDICATION: Signs/Symptoms:knee pain. COMPARISON: None. ACCESSION NUMBER(S): [id number] ORDERING CLINICIAN: BALBIR TAVARES FINDINGS: Minimal medial compartment narrowing. No acute fracture dislocation or bone lesion. No joint effusion. IMPRESSION: No acute findings. MACRO: None Signed by: Sharyn Carranza 04/04/2023 12:31 PM Dictation workstation: [id number] [facility] Work Phone: Radiology Study observation (narrative) [facility] Work Phone: XR Knee - left 4 ViewsOrdere d By: Sharyn Carranza on 04-04-2023 [facility] Work Phone: aPTTon 04-04-2023 aPTT Coag (PPP) [Time] 34 s Un [facility] aPTT Coag (PPP) [Time]on The APTT is no longe r used for monitoring Unfractionated Heparin Therapy. For monitoring Heparin Therapy, use the Heparin Assay. [facility] L Inj/Asp: L kneeon 02-10-20 Shadia Daley, CASE MAKER-DEMO COORDINATOR 02/09/2023 2:35 PM L Inj/Asp: L knee [...] to verify the correct patient, procedure, equipment, application support technician and site/side marked as required. Patient was prepped and draped in the usual sterile fashion. [facility] Work Phone: [facility] Work Phone: CBC W Auto Differential pane l (Bld)on 02-07-2023 Basophils (Bld) [#/Vol] 0.03 x10*3/uL Normal 0.00-0.10 [facility] Comment on above: Performed By: #### 5 7021-8 #### JIMBO ANTHONY ([id number]) [facility] ([facility]) [address] [place] [address] 80233 Basophils/100 WBC (Bld) 0.4 % Normal 0.0-2.0 [facility] Comment on above: Performed By: #### 5 7021-8 #### JIMBO ANTHONY ([id number]) [facility] ([facility]) [address] [place] [address]7101 Eosinophils (Bld) [#/Vol] 0.05 x10*3/uL Normal 0.00-0.70 [facility] Comment on above: Performed By: #### 5 7021-8 #### JIMBO ANTHONY ([id number]) [facility] ([facility]) [address] [place] [address] 20048 Eosinophils/100 WBC (Bld) 0.7 % Normal 0.0-6.0 [facility] Comment on above: Performed By: #### 5 7021-8 #### JIMBO ANTHONY ([id number]) [facility] ([facility]) [address] [place] [address] 43477 Erythrocyte distribution width (RBC) [Ratio] 13.8 % Normal 11.5-14.5 [facility] Comment on above: Performed By: #### 5 7021-8 #### JIMBO ANTHONY ([id number]) [facility] ([facility]) [address] [place] [address] Hematocrit (Bld) [Volume fraction] 45.1 % Normal 36.0-46.0 [facility] Comment on above: Performed By: #### 5 7021-8 #### JIMBO ANTHONY ([id number]) [facility] ([facility]) [address] [place] [address] Hemoglobin (Bld) [Mass/Vol] 14.5 g/dL Normal 12.0-16.0 [facility] Comment on above: Performed By: #### 5 7021-8 #### JIMBO ANTHONY ([id number]) [facility] ([facility]) [address] [place] [address] Immature granulocytes (Bld) [#/Vol] 0.05 x10*3/uL Normal 0.00-0.70 [facility] Comment on above: Performed By: #### 5 7021-8 #### JIMBO ANTHONY ([id number]) [facility] ([facility]) [address] [place] [address] Immature granulocytes/100 WBC (Bld) 0.7 % Normal 0.0-0.9 [facility] Comment on above: Result Comment: Mira ture Granulocyte Count (IG) includes promyelocytes, myelocytes and metamyelocytes but does not include bands. Percent differential counts (%) should be interpreted in the context of the absolute cell counts (cells/UL). Performed By: #### 5 7021-8 #### JIMBO ANTHONY ([id number]) [facility] ([facility]) [address] [place] [address] 89077 Lymphocytes (Bld) [#/Vol] 1.90 x10*3/uL Normal 1.20-4.80 [facility] Comment on above: Performed By: #### 5 7021-8 #### JIMBO ANTHONY ([id number]) [facility] ([facility]) [address] [place] [address] 50270 Lymphocytes/100 WBC (Bld) 25.5 % Normal 13.0-44.0 [facility] Comment on above: Performed By: #### 5 7021-8 #### JIMBO ANTHONY ([id number]) [facility] ([facility]) [address] [place] [address] 60298 MCH (RBC) [Entitic mass] 29.7 pg Normal 26.0-34.0 [facility] Comment on above: Performed By: #### 5 7021-8 #### JIMBO ANTHONY ([id number]) [facility] ([facility]) [address] [place] [address] 48639 MCHC (RBC) [Mass/Vol] 32.2 g/dL Normal 32.0-36.0 [facility] Comment on above: Performed By: #### 5 7021-8 #### JIMBO ANTHONY ([id number]) [facility] ([facility]) [address] [place] [address] 46058 MCV (RBC) [Entitic vol] 92 fL Normal 80-100 [facility] Comment on above: Performed By: #### 5 7021-8 #### JIMBO ANTHONY ([id number]) [facility] ([facility]) [address] [place] [address] 96998 Monocytes (Bld) [#/Vol] 0.42 x10*3/uL Normal 0.10-1.00 [facility] Comment on above: Performed By: #### 5 7021-8 #### JIMBO ANTHONY ([id number]) [facility] ([facility]) [address] [place] [address] 69312 Monocytes/100 WBC (Bld) 5.6 % Normal 2.0-10.0 [facility] Comment on above: Performed By: #### 5 7021-8 #### JIMBO ANTHONY ([id number]) [facility] ([facility]) [address] [place] [address] 70972 Neutrophils (Bld) [#/Vol] 5.01 x10*3/uL Normal 1.20-7.70 [facility] Comment on above: Result Comment: Perc ent differential counts (%) should be interpreted in the context of the absolute cell counts (cells/uL). Performed By: #### 5 7021-8 #### JIMBO ANTHONY ([id number]) [facility] ([facility]) [address] [place] [address] 72441 Neutrophils/100 WBC (Bld) 67.1 % Normal 40.0-80.0 [facility] Comment on above: Performed By: #### 5 7021-8 #### JIMBO ANTHONY ([id number]) [facility] ([facility]) [address] [place] [address] 93248 Nucleated RBC/100 WBC (Bld) [Ratio] 0.3 /100 WBCs High 0.0-0.0 [facility] Comment on above: Performed By: #### 5 7021-8 #### JIMBO ANTHONY ([id number]) [facility] ([facility]) [address] [place] [address] 94393 Platelet mean volume (Bld) [Entitic vol] 11.6 fL High 7.5-11.5 [facility] Comment on above: Performed By: #### 5 7021-8 #### JIMBO ANTHONY ([id number]) [facility] ([facility]) [address] [place] [address] 88462 Platelets (Bld) [#/Vol] 120 x10*3/uL Low 150-450 [facility] Comment on above: Result Comment: Plat elet count verified by smear review. no plt clots or clumps seen Performed By: #### 5 7021-8 #### JIMBO ANTHONY ([id number]) [facility] ([facility]) [address] [place] [address] 74965 RBC (Bld) [#/Vol] 4.89 x10*6/uL Normal 4.00-5.20 [facility] Comment on above: Performed By: #### 5 7021-8 #### JIMBO ANTHONY ([id number]) [facility] ([facility]) [address] [place] [address] 92951 WBC (Bld) [#/Vol] 7.5 x10*3/uL Normal 4.4-11.3 [facility] Comment on above: Performed By: #### 5 7021-8 #### JIMBO ANTHONY ([id number]) [facility] ([facility]) [address] [place] [address] 16233 Calcidiolon 02-07-2023 25-hydroxyvitamin D3 [Mass/Vol] 16 ng/mL Low 30-100 [facility] Comment on above: Order Comment: Defic iency: < 20 ng/ml Insufficiency: 20-29 ng/ml Sufficiency: 30-100 ng/ml This assay accurately quantifies the sum of Vitamin D3, 25-Hydroxy and Vitamin D2,25-Hydroxy. Performed By: #### 1 989-3 #### JIMBO ANTHONY ([id number]) [facility] ([facility]) [address] [place] [address] Cobalaminson 02-07-2023 Cobalamin (Vitamin B12) [Mass/Vol] 924 pg/mL High 211-911 [facility] Comment on above: Performed By: #### 2 132-9 #### JIMBO ANTHONY ([id number]) [facility] ([facility]) [address] [place] [address] Comprehensive metabolic 2000 panelon 02-07-2023 Albumin BCP dye [Mass/Vol] 3.3 g/dL Low 3.4-5.0 [facility] Comment on above: Performed By: #### 2 4323-8 #### JIMBO ANTHONY ([id number]) [facility] ([facility]) [address] [place] [address] 81741 ALP [Catalytic activity/Vol] 109 U/L Normal 33-136 [facility] Comment on above: Performed By: #### 2 4323-8 #### JIMBO ANTHONY ([id number]) [facility] ([facility]) [address] [place] [address] 35071 ALT With P-5'-P [Catalytic activity/Vol] 12 U/L Normal 7-45 [facility] Comment on above: Result Comment: Stephany ents treated with Sulfasalazine may generate falsely decreased results for ALT. Performed By: #### 2 4323-8 #### JIMBO ANTHONY ([id number]) [facility] ([facility]) [address] [place] [address] Anion gap [Moles/Vol] 11 mmol/L Normal 10-20 [facility] Comment on above: Performed By: #### 2 4323-8 #### JIMBO ANTHONY ([id number]) [facility] ([facility]) [address] [place] [address] AST With P-5'-P [Catalytic activity/Vol] 15 U/L Normal 9-39 [facility] Comment on above: Performed By: #### 2 4323-8 #### JIMBO ANTHONY ([id number]) [facility] ([facility]) [address] [place] [address] Bilirubin [Mass/Vol] 0.4 mg/dL Normal 0.0-1.2 [facility] Comment on above: Performed By: #### 2 4323-8 #### JIMBO ANTHONY ([id number]) [facility] ([facility]) [address] [place] [address] Calcium [Mass/Vol] 8.7 mg/dL Normal 8.6-10.[address] [facility] Comment on above: Performed By: #### 2 4323-8 #### JIMBO ANTHONY ([id number]) [facility] ([facility]) [facility] [place] [address] Chloride [Moles/Vol] 102 mmol/L Normal 98-107 [facility] Comment on above: Performed By: #### 2 4323-8 #### JIMBO ANTHONY ([id number]) [facility] ([facility]) [address] [place] [address] CO2 [Moles/Vol] 30 mmol/L Normal 21-32 [facility] Comment on above: Performed By: #### 2 4323-8 #### JIMBO ANTHONY ([id number]) [facility] ([facility]) [address] [place] [address] Creatinine [Mass/Vol] 1.09 mg/dL High 0.50-1.05 [facility] Comment on above: Performed By: #### 2 4323-8 #### JIMBO ANTHONY ([id number]) [facility] ([facility]) [address] [place] [address] GFR/1.73 sq M.predicted MDRD (S/P/Bld) [Vol rate/Area] 56 mL/min/1.73m*2 Low >60 [facility] Comment on above: Result Comment: Calc ulations of estimated GFR are performed using the 2020 CKD-EPI Study Refit equation without the race variable for the IDMS-Traceable creatinine methods. https://jasn.asnjournals.org/content/early//ASN.28594 40957 Performed By: #### 2 4323-8 #### JIMBO ANTHONY ([id number]) [facility] ([facility]) [address] [place] [address] Glucose [Mass/Vol] 106 mg/dL High 74-[address] [facility] Comment on above: Performed By: #### 2 4323-8 #### JIMBO ANTHONY ([id number]) [facility] ([facility]) [address] [place] [address] Potassium [Moles/Vol] 4.0 mmol/L Normal 3.5-5.3 [facility] Comment on above: Performed By: #### 2 4323-8 #### JIMBO ANTHONY ([id number]) [facility] ([facility]) [address] [place] [address] Protein [Mass/Vol] 6.5 g/dL Normal 6.4-8.[address] [facility] Comment on above: Performed By: #### 2 4323-8 #### JIMBO ANTHONY ([id number]) [facility] ([facility]) [address] [place] [address] Sodium [Moles/Vol] 139 mmol/L Normal 136-[address] [facility] Comment on above: Performed By: #### 2 4323-8 #### JIMBO ANTHONY ([id number]) [facility] ([facility]) [facility] [place] [address] Urea nitrogen [Mass/Vol] 13 mg/dL Normal 6- [facility] Comment on above: Performed By: #### 2 4323-8 #### JIMBO ANTHONY ([id number]) [facility] ([facility]) [address] [place] [address] HbA1c (Bld) [Mass fraction]o n 02-07-2023 Average glucose Estimated from glycated hemoglobin (Bld) [Mass/Vol] 197 mg/dL Normal Not Established [facility] Comment on above: Order Comment: Diagn osis of Diabetes-Adults Non-Diabetic: < or = 5.6% Increased risk for developing diabetes: 5.7-6.4% Diagnostic of diabetes: > or = 6.5% Monitoring of Diabetes Age (y)....................... Therapeutic Goal (%) Adults: >18.........................<7.0 Pediatrics: 13-18...................<7.5 Pediatrics: 7-12....................<8.0 Pediatrics: 0-6..................... 7.5-8.5 [employer]. Diabetes Care 33(S1)Apr 2009 Performed By: #### 4 548-4 #### JIMBO ANTHONY ([id number]) [facility] ([facility]) [address] [place] [address] Hemoglobin A1c/Hemoglobin.to camilo 02-07-2023 HbA1c (Bld) [Mass fraction] 8.5 % High see below [facility] Comment on above: Order Comment: Diagn osis of Diabetes-Adults Non-Diabetic: < or = 5.6% Increased risk for developing diabetes: 5.7-6.4% Diagnostic of diabetes: > or = 6.5% Monitoring of Diabetes Age (y)....................... Therapeutic Goal (%) Adults: >18.........................<7.0 Pediatrics: 13-18...................<7.5 Pediatrics: 7-12....................<8.0 Pediatrics: 0-6..................... 7.5-8.5 [employer]. Diabetes Care 33(S1), Apr 2009 Performed By: #### 4 548-4 #### JIMBO ANTHONY ([id number]) [facility] ([facility]) [address] [place] [address] Lipid 1996 panelon 3 Cholesterol [Mass/Vol] 192 mg/dL Normal 0-199 [facility] Comment on above: Result Comment: Age Desirable [...] By: #### 2 4331-1 #### JIMBO ANTHONY ([id number]) [facility] ([facility]) [address] [place] [address] Cholesterol in HDL [Mass/Vol] 48.0 mg/dL Normal [facility] Comment on above: Result Comment: Age Very Low Low Normal High 0-19 Y < 35 < 40 40-45 ---- 20-24 Y ---- < 40 >45 ---- >24 Y ---- < 40 40-60 >60 Performed By: #### 2 4331-1 #### JIMBO ANTHONY ([id number]) [facility] ([facility]) [address] [place] [address] Cholesterol in LDL [Mass/Vol] 90 mg/dL Normal <=99 [facility] Comment on above: Result Comment: Near Borderline AGE Desirable Optimal High High Very High 0-19 Y 0 - 109 --- 110-129 >/= 130 ---- 20-24 Y 0 - 119 --- 120-159 >/= 160 ---- >24 Y 0 - 99 100-129 130-159 160-189 >/=190 Performed By: #### 2 4331-1 #### JIMBO ANTHONY ([id number]) [facility] ([facility]) [address] [place] [address] Cholesterol in VLDL [Mass/Vol] 54 mg/dL High 0-40 [facility] Comment on above: Performed By: #### 2 4331-1 #### JIMBO ANTHONY ([id number]) [facility] ([facility]) [address] [place] [address] 228[address] CHOLESTEROL/HDL RATIO 4.0 Normal [facility] Comment on above: Result Comment: Ref Values Desirable < 3.4 High Risk > 5.0 Performed By: #### 2 4331-1 #### JIMBO ANTHONY ([id number]) [facility] ([facility]) [address] [place] [address]39 NON HDL CHOLESTEROL 144 mg/dL Normal 0-149 [facility] Comment on above: Result Comment: Age Desirable Borderline High High Very High 0-19 Y 0 - 119 120 - 144 >/= 145 >/= 160 20-24 Y 0 - 149 150 - 189 >/= 190 ---- >24 Y 30 mg/dL above LDL Cholesterol goal Performed By: #### 2 4331-1 #### JIMBO ANTHONY ([id number]) [facility] ([facility]) [facility] [place] [address] Triglyceride [Mass/Vol] 268 mg/dL High 0-149 [facility] Comment on above: Result Comment: Age Desirable [...] By: #### 2 4331-1 #### JIMBO ANTHONY ([id number]) [facility] ([facility]) [address] [place] [address] Magnesiumon 02-07-2023 Magnesium [Mass/Vol] 1.30 mg/dL Low 1.60-2.40 [facility] Comment on above: Performed By: #### 1 9123-9 #### JIMBO ANTHONY ([id number]) [facility] ([facility]) [address] [place] [address] Thyrotropinon 02-07-2023 TSH Qn 5.05 m[IU]/L High 0.44-3.98 [facility] Comment on above: Order Comment: TSH t esting is performed using different testing methodology at [facility] than at [facility]. Direct result comparisons should only be made within the same method. Performed By: #### 3 016-3 #### JIMBO ANTHONY ([id number]) [facility] ([facility]) [address] [place], [place] [id number] Thyroxine.freeon 02-07-2023 Free T4 [Mass/Vol] 0.89 ng/dL Normal 0.61-1.[address] [facility] Comment on above: Order Comment: Thyro xine Free testing is performed using different testing methodology at [facility] than at [facility]. Direct result comparisons should only be made [...] draw. Performed By: #### 3 024-7 #### CHOI GABRIELLE ([id number]) [facility] ([facility]) [address] [place] [id number] Established Visit (Orthopaed ic Surgery)on 12-28-2022 Established [...] care. . This note was generated using The Orange Chef software. It may contain errors in wording, [...] Medical History Problems H/O mammogram (V15.89) (Z92.89) 4836-LLCABB-MQMOZUZIP [facility] History of Papanicolaou smear (V45.89) (Z98.890) 02/2022- NORMAL. DONE AT [address] [place] [address] History of Influenza vaccination declined (V64.06) (Z28.21) Surgical History Problems History of Cholecystectomy laparoscopic History of Colonoscopy 2020- [facility]- NORMAL. REPEAT IN 10 YEARS History of Dilation and curettage History of Epidural steroid injection Managed By: Miguel Dinh (Pain Medicine) L5-S1 JOSE History of (more content not included)... Normal [facility] Established Visit (Orthopaed ic Surgery)on 11-26-2022 Established [...] elevated readings. This note was generated using The Orange Chef software. It may contain errors in wording, [...] Medical History Problems H/O mammogram (V15.89) (Z92.89) 0970-IIHRLU-IRMWSTNCR MED CENTRAL History of Papanicolaou smear (V45.89) (Z98.890) 02/2022- NORMAL. DONE AT [address] [place] [address] History of Influenza vaccination declined (V64.06) (Z28.21) Surgical History Problems History of Cholecystectomy laparoscopic [facility]. REPEAT IN 10 YEARS History of Dilation and curettage History of Epidural steroid injection Managed By: Miguel Angelo (Pain Medicine) L5-S1 JOSE History of Medial branch block Managed By: Miguel Angelo (Pain Medicine) Bilat L4-S1 MBB History of Oophorectomy 3096-1690- RIGHT History of Umbilical hernia repair Family History Mother Family history of Aneurysm 7465-9984- Father Family history of Edema 1970 Brother Family history of malignant neoplasm (V16.9) (Z80.9) 2-3 AUNTS ON PATIENT'S DAD'S SIDE HAD CANCER. PT BOTHER ALSO HAS CANCER (PT NOT (more content not included)... Normal [employer] No Panel Informationon 11-26 Please click on the link to view the study images Normal [facility] 300 Work Phone: Tobacco Screening.on 023 Tobacco use status CPHS a) Yes [facility] 300 Work Phone: Tobacco Screening. Yes [facility] and [facility] 300 Work Phone: BASIC METABOLIC PANELon 07- Anion gap [Moles/Vol] 8 mmol/L Low 10 - 20 [facility] Comment on above: Performed By: #### B MP ####[address] [address] Calcium [Mass/Vol] 8.4 mg/dL Low 8.6 - 10.3 [facility] Comment on above: Performed By: #### B MP ####[address] [address] Chloride [Moles/Vol] 103 mmol/L Normal 98 - 107 [facility] Comment on above: Performed By: #### B MP ####[address] [address] Creatinine [Mass/Vol] 0.94 mg/dL Normal 0.50 - 1.05 [facility] Comment on above: Performed By: #### B MP ####[address] [address] GFR/1.73 sq M.predicted among non-blacks MDRD (S/P/Bld) [Vol rate/Area] 67 mL/min/{1.73_m2} Normal >90 [facility] Comment on above: Result Comment: CALC ULATIONS OF ESTIMATED GFR ARE PERFORMED USING THE 2020 CKD-EPI STUDY REFIT EQUATION WITHOUT THE RACE VARIABLE FOR THE IDMS-TRACEABLE CREATININE METHODS. https://jasn.asnjournals.org/content/early/ASN.62585 73606 Performed By: #### B MP ####[address] [address] Glucose [Mass/Vol] 192 mg/dL High 74 - 99 [facility] Comment on above: Performed By: #### B MP ####[address] [address] HCO3 (Bld) [Moles/Vol] 29 mmol/L Normal 21 - 32 [facility] Comment on above: Performed By: #### B MP ####[address] [address] Potassium [Moles/Vol] 4.1 mmol/L Normal 3.5 - 5.3 [facility] Comment on above: Performed By: #### B MP ####[address] [address] Sodium [Moles/Vol] 136 mmol/L Normal 136 - 145 [facility] Comment on above: Performed By: #### B MP ####[address] [address] Urea nitrogen [Mass/Vol] 13 mg/dL Normal 6 - 23 [facility] Comment on above: Performed By: #### B MP ####[address] [address] BETA-HYDROXYBUTYRATEon 10-18 BETA-HYDROXYBUTYRATE <0.01 Low 0.02 - 0.27 [facility] Comment on above: Result Comment: The beta-hydroxybutyrate test performance characteristics have been validated by [facility]. This test has not been approved by the FDA; however, such approval is not necessary. Performed By: #### B HB2 #### [address] [address] Beta Hydroxybutyrate, Serumo n 10-18-2022 Beta hydroxybutyrate [Mass or moles/Vol] <0.01 below low threshold See Below [facility] Work Phone: Comment on above: Reference Range: 0.0 2 - 0.27 The beta-hydroxybutyrate test performance characteristics have been validated by [facility]. This test has not been approved by the FDA; however, such approval is not necessary. CBC AND DIFFERENTIALon 10-18 % AUTOMATED IMMATURE GRAN 0.7 % Normal 0.0 - 0.9 [facility] Comment on above: Result Comment: Mira ture Granulocyte Count (IG) includes promyelocytes, myelocytes and metamyelocytes but does not include bands. Percent differential counts (%) should be interpreted in the context of the absolute cell counts (cells/L). Performed By: #### C BCDF ####[address] [address] Basophils (Bld) [#/Vol] 0.03 10*3/uL Normal 0.00 - 0.10 [facility] Comment on above: Performed By: #### C BCDF ####[address] [address] Basophils/100 WBC (Bld) 0.4 % Normal 0.0 - 2.0 [facility] Comment on above: Performed By: #### C BCDF ####[address] [address] Eosinophils (Bld) [#/Vol] 0.06 10*3/uL Normal 0.00 - 0.70 [facility] Comment on above: Performed By: #### C BCDF ####[address] [address] Eosinophils/100 WBC (Bld) 0.9 % Normal 0.0 - 6.0 [facility] Comment on above: Performed By: #### C BCDF ####[address] [address] Erythrocyte distribution width (RBC) [Ratio] 13.2 % Normal 11.5 - 14.5 [facility] Comment on above: Performed By: #### C BCDF ####[address] [address] Hematocrit (Bld) [Volume fraction] 41.0 % Normal 36.0 - 46.0 [facility] Comment on above: Performed By: #### C BCDF ####[address] [address] Hemoglobin (Bld) [Mass/Vol] 13.5 g/dL Normal 12.0 - 16.0 [facility] Comment on above: Performed By: #### C BCDF ####[address] [address] Lymphocytes (Bld) [#/Vol] 1.63 10*3/uL Normal 1.20 - 4.80 [facility] Comment on above: Performed By: #### C BCDF ####[address] [address] Lymphocytes/100 WBC (Bld) 24.0 % Normal 13.0 - 44.0 [facility] Comment on above: Performed By: #### C BCDF ####[address] [address] MCHC (RBC) [Mass/Vol] 32.9 g/dL Normal 32.0 - 36.0 [facility] Comment on above: Performed By: #### C BCDF ####[address] [address] MCV (RBC) [Entitic vol] 90 fL Normal 80 - 100 [facility] Comment on above: Performed By: #### C BCDF ####[address] [address] Monocytes (Bld) [#/Vol] 0.34 10*3/uL Normal 0.10 - 1.00 [facility] Comment on above: Performed By: #### C BCDF ####[address] [address] Monocytes/100 WBC (Bld) 5.0 % Normal 2.0 - 10.0 [facility] Comment on above: Performed By: #### C BCDF ####[address] [address] Neutrophils (Bld) [#/Vol] 4.67 10*3/uL Normal 1.20 - 7.70 [facility] Comment on above: Result Comment: Perc ent differential counts (%) should be interpreted in the context of the absolute cell counts (cells/L). Performed By: #### C BCDF ####[address] [address] Neutrophils/100 WBC (Bld) 69.0 % Normal 40.0 - 80.0 [facility] Comment on above: Performed By: #### C BCDF ####[address] [address] Platelets (Bld) [#/Vol] 117 10*3/uL Low 150 - 450 [facility] Comment on above: Result Comment: Plat elet count verified by smear review. no plt clumps seen Performed By: #### C BCDF ####[address] [address] RBC 4.55 x10E12/L Normal 4.00 - 5.20 [facility] Comment on above: Performed By: #### C BCDF ####[address] [address] WBC (Bld) [#/Vol] 6.8 10*3/uL Normal 4.4 - 11.3 [facility] Comment on above: Performed By: #### C BCDF ####[address] [address] [address] ABDOMEN AND PELVIS W IV C Elizabeth 10-18-2022 CT ABDOMEN AND PELVIS W IV CONTRAST Patient Name: JANELLE PICKETT STUDY: Unremarkable. CT ABDOMEN AND PELVIS W IV CONTRAST; 10/18/2022 2:08 pm INDICATION: ABD PAIN, NAUSEA, ABD DISTENSION HX OF CHOLELITHIASIS . COMPARISON: 06/12/2022 ACCESSION NUMBER(S): [id number] ORDERING CLINICIAN: DAVIDE MITCHELL TECHNIQUE: CT of [...] Electronically signed by: KALIN CLEMENT MD Normal [facility] CT Abdomen and Pelvis with I V Contraston 10-18-2022 CT Abdomen and Pelvis W contrast IV Normal [facility] Work Phone: Complete Blood Count + Diffe rentialon 10-18-2022 Basophils/100 WBC (Bld) 0.4 % 0.0 - 2.0 [facility] Work Phone: Erythrocyte distribution width (RBC) [Ratio] 13.2 % See Below [facility] Work Phone: Comment on above: Reference Range: 11. 5 - 14.5 Hematocrit (Bld) [Volume fraction] 41.0 % See Below -[facility] Work Phone: Comment on above: Reference Range: 36. 0 - 46.0 Hemoglobin (Bld) [Mass/Vol] 13.5 g/dL See Below -[facility] Work Phone: Comment on above: Reference Range: 12. 0 - 16.0 Lymphocytes/100 WBC (Bld) 24.0 % See Below -[facility] Work Phone: Comment on above: Reference Range: 13. 0 - 44.0 MCHC (RBC) [Mass/Vol] 32.9 g/dL See Below - [facility] Work Phone: Comment on above: Reference Range: 32. 0 - 36.0 MCV (RBC) [Entitic vol] 90 fL 80 - 100 [facility]: Monocytes/100 WBC (Bld) 5.0 % 2.0 - 10.0 -[facility] Work Phone: Neutrophils/100 WBC (Bld) 69.0 % See Below -[facility] Work Phone: Comment on above: Reference Range: 40. 0 - 80.0 Platelets (Bld) [#/Vol] 117 10*3/uL below low threshold 150 - 450 -[facility] Work Phone: Comment on above: Platelet count verif ied by smear review. no plt clumps seen RBC (Bld) [#/Vol] 4.55 {x10E12/L} See Below [facility]: Comment on above: Reference Range: 4.0 0 - 5.20 WBC (Bld) [#/Vol] 6.8 10*3/uL 4.4 - 11.3 [facility] Work Phone: Complete Blood Count + Differential 0.03 {x10E9/L} See Below [facility] Work Phone: Comment on above: Reference Range: 0.0 0 - 0.10 Complete Blood Count + Differential 0.06 {x10E9/L} See Below -[facility] Work Phone: Comment on above: Reference Range: 0.0 0 - 0.70 Complete Blood Count + Differential 0.34 {x10E9/L} See Below [facility] Work Phone: Comment on above: Reference Range: 0.1 0 - 1.00 Complete Blood Count + Differential 1.63 {x10E9/L} See Below -[facility] Work Phone: Comment on above: Reference Range: 1.2 0 - 4.80 Complete Blood Count + Differential 4.67 {x10E9/L} See Below -[facility] Work Phone: Comment on above: Reference Range: 1.2 0 - 7.70 Percent differential counts (%) should be interpreted in the context of the absolute cell counts (cells/L). Complete Blood Count + Differential 0.9 % 0.0 - 6.0 -[facility] Work Phone: Complete Blood Count + Differential 0.7 % 0.0 - 0.9 -[facility] Work Phone: Comment on above: Immature Granulocyte Count (IG) includes promyelocytes, myelocytes and metamyelocytes but does not include bands. Percent differential counts (%) should be interpreted in the context of the absolute cell counts (cells/L). HEPATIC FUNCTION PANELon Albumin [Mass/Vol] 3.1 g/dL Low 3.4 - 5.0 [facility] Comment on above: Performed By: #### H EPFP ####[id number] [place] [address] ALP [Catalytic activity/Vol] 121 U/L Normal 33 - 136 [facility] Comment on above: Performed By: #### H EPFP ####[address] [address] ALT [Catalytic activity/Vol] 12 U/L Normal 7 - 45 [facility] Comment on above: Result Comment: Stephany ents treated with Sulfasalazine may generate falsely decreased results for ALT. Performed By: #### H EPFP ####[address] [address] AST [Catalytic activity/Vol] 12 U/L Normal 9 - 39 [facility] Comment on above: Performed By: #### H EPFP ####[address] [address] Bilirubin [Mass/Vol] 0.3 mg/dL Normal 0.0 - 1.2 [facility] Comment on above: Performed By: #### H EPFP ####[address] [address] Bilirubin.indirect [Mass/Vol] 0.0 mg/dL Normal 0.0 - 0.3 [facility] Comment on above: Performed By: #### H EPFP ####[address] [address] Protein [Mass/Vol] 6.6 g/dL Normal 6.4 - 8.2 [facility] Comment on above: Performed By: #### H EPFP ####[address] [address] Hepatic Function Panelon Albumin BCP dye [Mass/Vol] 3.1 g/dL below low threshold 3.4 - 5.0 [facility] Work Phone: ALP [Catalytic activity/Vol] 121 U/L 33 - 136 [facility] Work Phone: ALT With P-5'-P [Catalytic activity/Vol] 12 U/L 7 - 45 [facility] Work Phone: Comment on above: Patients treated wit h Sulfasalazine may generate falsely decreased results for ALT. AST With P-5'-P [Catalytic activity/Vol] 12 U/L 9 - 39 [facility] Work Phone: Bilirubin [Mass/Vol] 0.3 mg/dL 0.0 - 1.2 [facility] Work Phone: Bilirubin.direct [Mass/Vol] 0.0 mg/dL 0.0 - 0.3 [facility] Work Phone: Protein [Mass/Vol] 6.6 g/dL 6.4 - 8.2 [facility] Work Phone: LACTATEon 10-18-2022 Lactate [Moles/Vol] 1.3 mmol/L Normal 0.4 - 2.0 [facility] Comment on above: Result Comment: Funmi puncture immediately after or during the administration of Metamizole may lead to falsely low results. Testing should be performed immediately prior to Metamizole dosing. Performed By: #### L ACT ####[place] [address] LIPASEon 10-18-2022 Lipase [Catalytic activity/Vol] 35 U/L Normal 9 - 82 [facility] Comment on above: Result Comment: Funmi puncture immediately after or during the administration of Metamizole may lead to falsely low results. Testing should be performed immediately prior to Metamizole dosing. Q-xiayfs-l-benzoquinone imine (metabolite of Acetaminophen) will generate erroneously low results in samples for patients that have taken toxic doses of acetaminophen. Performed By: #### L IPAS ####[place] [id number] Laboratory - Chemistry and C hemistry - challengeon 10-18-2022 Anion gap [Moles/Vol] 8 mmol/L below low threshold 10 - 20 [facility] Work Phone: Calcium [Mass/Vol] 8.4 mg/dL below low threshold 8.6 - 10.3 MP-Pain [facility] Work Phone: Chloride [Moles/Vol] 103 mmol/L 98 - 107 MP-P ain [facility] Work Phone: CO2 [Moles/Vol] 29 mmol/L 21 - 32 [facility] Work Phone: Creatinine [Mass/Vol] 0.94 mg/dL See Below MP- Pain [facility] Work Phone: Comment on above: Reference Range: 0.5 0 - 1.05 Glucose [Mass/Vol] 192 mg/dL above high threshold 74 - 99 [facility] Work Phone: Potassium [Moles/Vol] 4.1 mmol/L 3.5 - 5.3 MP- Pain [facility] Work Phone: Sodium [Moles/Vol] 136 mmol/L 136 - 145 MP-Chirag n [facility] Work Phone: Urea nitrogen [Mass/Vol] 13 mg/dL 6 - 23 [facility] Work Phone: Laboratory - Coagulationon 0 10-18-2022 INR Coag (PPP) [Relative time] 1.1 {INR} 0.9 - 1.1 [facility] Work Phone: PT Coag (PPP) [Time] 12.2 s 9.8 - 12.8 MP[facility] Work Phone: Comment on above: Note new reference jamie alfonso as of 09/28/2022 at 10:00am. Lactate, Levelon 10-18-2022 Lactate [Moles/Vol] 1.3 mmol/L 0.4 - 2.0 MP-Pa in [facility] Work Phone: Comment on above: Venipuncture immedia tely after or during the administration of Metamizole may lead to falsely low results. Testing should be performed immediately prior to Metamizole dosing. Lipase, Serumon 10-18-2022 Lipase [Catalytic activity/Vol] 35 U/L 9 - 82 MP[facility] Work Phone: Comment on above: Venipuncture immedia tely after or during the administration of Metamizole may lead to falsely low results. Testing should be performed immediately prior to Metamizole dosing. V-bzclkv-u-benzoquinone imine (metabolite of Acetaminophen) will generate erroneously low results in samples for patients that have taken toxic doses of acetaminophen. No Panel Informationon 10-18 67 {mL/min/1.73m2} >90 -[facility] Work Phone: Comment on above: CALCULATIONS OF ROXANN MATED GFR ARE PERFORMED USING THE 2020 CKD-EPI STUDY REFIT EQUATION WITHOUT THE RACE VARIABLE FOR THE IDMS-TRACEABLE CREATININE METHODS.https://jasn.asnjournals.org/content/early//A SN.3399852589 PT/INRon 10-18-2022 PT Coag (PPP) [Time] 12.2 s Normal 9.8 - 12.8 [facility] Comment on above: Result Comment: Note new reference range as of 09/28/2022 at 10:00am. Performed By: #### P TINR ####[address] [address] PT, INR 1.1 Normal 0.9 - 1.1 [facility] Comment on above: Performed By: #### P TINR ####[address] [address] Provider Note - ED v3on 10-09 Provider [...] Medical History Problems H/O mammogram (V15.89) (Z92.89) 1361[facility] History of Papanicolaou smear (V45.89) (Z98.890) 02/2022- NORMAL. DONE AT [address] [place] [address] History of Influenza vaccination declined (V64.06) (Z28.21) Surgical History Problems History of Cholecystectomy laparoscopic History of Colonoscopy 2020- [facility]- NORMAL. REPEAT IN 10 YEARS History of Dilation and curettage History of Medial branch block Managed By: Miguel Angelo (Pain Medicine) Bilat L4-S1 MBB History of Oophorectomy [id number]- RIGHT History of Umbilical hernia repair Family History Mother Family history of Aneurysm [id number]- Father Family history of Edema 1969 Patient [...] Vital Sign Value Date Temp (F): 96.7 07-10-2023 11:41 Temp (C): 35.9 10-18-2022 11:41 Heart [...] machine Use (more content not included)... Normal [facility] Risk Screen - Adult Emergenc yon 10-18-2022 [...] Learning Preferencesverbal instruction Cultural Considerationsnone Developmental Considerationsnone Taoism Considerationsnone Learning Assessment (Other Learner): Learning Assessment [...] an injured [place] at a Tra[place] Center [place] prabhjot/[place] no Electronic Signatures: Jessica Luis (RN) (Signed 18-Oct-2022 12:40) Authored: Preferred Language, Patient Preferred Pharmacy, Advanced Directives, Family Violence Adult, Learning Assessment (Patient), Learning Assessment (Other Learner), Pressure Injury/TB/Substance, Pressure Injury, CAGE Last Updated: 18-Oct-2022 12:40 by Jessica Luis (RN) Normal [facility] UA MICROSCOPICon 10-18-2022 RBC 5 /HPF Normal 0-5 [facility] Comment on above: Performed By: #### B HB2 #### [address] [address] SQUAMOUS EPITH. CELLS 5 /HPF Normal [facility] Comment on above: Performed By: #### B HB2 #### [address] [address] WBC (U) [#/Vol] /uL Normal 0-5 [facility] Comment on above: Performed By: #### B HB2 #### [address] [address] URINALYSIS WITH CULTURE IF I NDICATEDon 10-18-2022 Appearance (U) CLEAR Normal CLEAR [facility] Comment on above: Performed By: #### U ARFX ####[address] [address] Bilirubin Ql (U) Negative Normal NEGATIVE [facility] Comment on above: Performed By: #### U ARFX ####[address] [address] Color (U) Yellow Normal STRAW,YELLOW [facility] Comment on above: Performed By: #### U ARFX ####[address] [address] Glucose Ql (U) Negative Normal NEGATIVE [facility] Comment on above: Performed By: #### U ARFX ####[address] [address] Hemoglobin Ql (U) SMALL (1+) Abnormal NEGATIVE [facility] Comment on above: Performed By: #### U ARFX ####[place] [address] Ketones Ql (U) Negative Normal NEGATIVE [facility] Comment on above: Performed By: #### U ARFX ####[place] [address] Leukocyte esterase Test strip Ql (U) Negative Normal NEGATIVE [facility] Comment on above: Performed By: #### U ARFX ####[place] [address] Nitrite Ql (U) Negative Normal NEGATIVE [facility] Comment on above: Performed By: #### U ARFX ####[place] [address] pH (U) 6.0 [pH] Normal 5.0 - 8.0 [facility] Comment on above: Performed By: #### U ARFX ####[place] [address] Protein Ql (U) 100 (2+) Abnormal NEGATIVE [facility] Comment on above: Performed By: #### U ARFX ####[place] [address] Specific gravity (U) [Rel density] 1.015 Normal 1.005 - 1.035 [facility] Comment on above: Performed By: #### U ARFX ####[place] [address] Urobilinogen (U) [Mass/Vol] mg/dL Normal 0.0 - 1.9 [facility] Comment on above: Performed By: #### U ARFX ####[place] [id number] Color (U) Yellow See Below [facility] Work Phone: Comment on above: Reference Range: STR AW,YELLOW Glucose Ql (U) Negative NEGATIVE [facility] Work Phone: Ketones Ql (U) Negative NEGATIVE [facility] Work Phone: Leukocyte esterase Test strip Ql (U) Negative NEGATIVE [facility] Work Phone: pH (U) 6.0 [pH] 5.0 - 8.0 [facility] Work Phone: Protein (U) [Mass/Vol] 100 (2+) Abnormal NEGATIVE [facility] Work Phone: RBC (U) [#/Vol] SMALL (1+) Abnormal NEGATIVE [facility] Work Phone: Specific gravity (U) [Rel density] 1.015 1 See Below [facility] Work Phone: Comment on above: Reference Range: 1.0 05 - 1.035 URINALYSIS WITH CULTURE IF INDICATED Negative NEGATIVE [facility] Work Phone: URINALYSIS WITH CULTURE IF INDICATED <2.0 0.0 - 1.9 [facility] Work Phone: URINALYSIS WITH CULTURE IF INDICATED CLEAR CLEAR -[facility] Work Phone: Urinalysis, Microscopicon Urinalysis, Microscopic 5 {/HPF} 0-5 [facility] Work Phone: Urinalysis, Microscopic <1 0-5 [facility] Work Phone: GLUCOSE-POCTon 09-17-2022 Glucose [Mass/Vol] 218 mg/dL High 74 - 99 [facility] Comment on above: Performed By: #### G DARRELL #### [address] [address] Glucose Test strip manual (B ld) [Mass/Vol]on 09-17-2022 Glucose [Mass/Vol] 218 mg/dL High 74 - 99 mg/dL [facility] Interpretation and review of laboratory results Abnormal [facility] Laboratory - Chemistry and C hemistry - challengeon 09-17-2022 Glucose [Mass/Vol] 218 mg/dL above high threshold 74 - 99 [facility] Work Phone: No Panel Informationon 09-17 Please click on the link to view the study images Normal [facility] Work Phone: RFA Unspecified body region Limited Views for therapy or embolization or infusion W contrast via existing catheteron 09-17-2022 RIS LEGACY CONVERSIONS Conversion, [employer] Radiology - 12/08/2022 [facility] Work Phone: Radiology Study observation (narrative) [facility] Work Phone: RFA Unspecified body region Limited Views for therapy or embolization or infusion W contrast via existing catheterOrdered By: Ge Conversion on 09-17-2022 [facility] Radiologyon 09-03-2022 US Liver Normal [facility] Work Phone: US LIVERon 09-03-2022 US LIVER Patient Name: JANELLE PICKETT STUDY: US LIVER; 09/03/2022 8:34 am INDICATION: Cirrhosis R10.84: Abdominal pain, chronic, generalized G89.29:. COMPARISON: None. ACCESSION NUMBER(S): [id number] ORDERING CLINICIAN: KANE KILGORE TECHNIQUE: Real-time sonographic [...] visualization of the pancreas. Electronically signed by: SRAVANTHI RÍOS MD Normal [facility] CBC AND DIFFERENTIALon 08-20 % AUTOMATED IMMATURE GRAN 1.0 % High 0.0 - 0.9 [facility] Comment on above: Result Comment: Mira ture Granulocyte Count (IG) includes promyelocytes, myelocytes and metamyelocytes but does not include bands. Percent differential counts (%) should be interpreted in the context of the absolute cell counts (cells/L). Performed By: #### C BCDF ####[address] [address] Basophils (Bld) [#/Vol] 0.02 10*3/uL Normal 0.00 - 0.10 [facility] Comment on above: Performed By: #### C BCDF ####[address] [address] Basophils/100 WBC (Bld) 0.3 % Normal 0.0 - 2.0 [facility] Comment on above: Performed By: #### C BCDF ####[address] [address] Eosinophils (Bld) [#/Vol] 0.04 10*3/uL Normal 0.00 - 0.70 [facility] Comment on above: Performed By: #### C BCDF ####[address] [address] Eosinophils/100 WBC (Bld) 0.6 % Normal 0.0 - 6.0 [facility] Comment on above: Performed By: #### C BCDF ####[address] [address] Erythrocyte distribution width (RBC) [Ratio] 13.3 % Normal 11.5 - 14.5 [facility] Comment on above: Performed By: #### C BCDF ####[address] [address] Hematocrit (Bld) [Volume fraction] 42.4 % Normal 36.0 - 46.0 [facility] Comment on above: Performed By: #### C BCDF ####[address] [address] Hemoglobin (Bld) [Mass/Vol] 14.0 g/dL Normal 12.0 - 16.0 [facility] Comment on above: Performed By: #### C BCDF ####[address] [address] Lymphocytes (Bld) [#/Vol] 1.54 10*3/uL Normal 1.20 - 4.80 [facility] Comment on above: Performed By: #### C BCDF ####[address] [address] Lymphocytes/100 WBC (Bld) 21.3 % Normal 13.0 - 44.0 [facility] Comment on above: Performed By: #### C BCDF ####[address] [address] MCHC (RBC) [Mass/Vol] 33.0 g/dL Normal 32.0 - 36.0 [facility] Comment on above: Performed By: #### C BCDF ####[address] [address] MCV (RBC) [Entitic vol] 90 fL Normal 80 - 100 [facility] Comment on above: Performed By: #### C BCDF ####[address] [address] Monocytes (Bld) [#/Vol] 0.44 10*3/uL Normal 0.10 - 1.00 [facility] Comment on above: Performed By: #### C BCDF ####[address] [address] Monocytes/100 WBC (Bld) 6.1 % Normal 2.0 - 10.0 [facility] Comment on above: Performed By: #### C BCDF ####[address] [address] Neutrophils (Bld) [#/Vol] 5.12 10*3/uL Normal 1.20 - 7.70 [facility] Comment on above: Result Comment: Perc ent differential counts (%) should be interpreted in the context of the absolute cell counts (cells/L). Performed By: #### C BCDF ####[place] [address] Neutrophils/100 WBC (Bld) 70.7 % Normal 40.0 - 80.0 [facility] Comment on above: Performed By: #### C BCDF ####[place] [address] Platelets (Bld) [#/Vol] 108 10*3/uL Low 150 - 450 [facility] Comment on above: Result Comment: Plat elet count verified by smear review. no plt clumps or clots seen Performed By: #### C BCDF ####[place] [address] RBC 4.71 x10E12/L Normal 4.00 - 5.20 [facility] Comment on above: Performed By: #### C BCDF ####[place] [address] WBC (Bld) [#/Vol] 7.2 10*3/uL Normal 4.4 - 11.3 [facility] Comment on above: Performed By: #### C BCDF ####[place] [address] COMPREHENSIVE PANELon 2022 Albumin [Mass/Vol] 3.3 g/dL Low 3.4 - 5.0 [facility] Comment on above: Performed By: #### C MP ####[place] [address] ALP [Catalytic activity/Vol] 145 U/L High 33 - 136 [facility] Comment on above: Performed By: #### C MP ####[place] [address]93005 ALT [Catalytic activity/Vol] 17 U/L Normal 7 - 45 [facility] Comment on above: Result Comment: Stephany ents treated with Sulfasalazine may generate falsely decreased results for ALT. Performed By: #### C MP ####[place] [address]93[address] Anion gap [Moles/Vol] 10 mmol/L Normal 10 - 20 [facility] Comment on above: Performed By: #### C MP ####[address] [address] AST [Catalytic activity/Vol] 21 U/L Normal 9 - 39 [facility] Comment on above: Performed By: #### C MP ####[address] [address] Bilirubin [Mass/Vol] 0.3 mg/dL Normal 0.0 - 1.2 [facility] Comment on above: Performed By: #### C MP ####[address] [address] Calcium [Mass/Vol] 8.7 mg/dL Normal 8.6 - 10.3 [facility] Comment on above: Performed By: #### C MP ####[address] [address] Chloride [Moles/Vol] 101 mmol/L Normal 98 - 107 [facility] Comment on above: Performed By: #### C MP ####[address] [address] Creatinine [Mass/Vol] 1.09 mg/dL High 0.50 - 1.05 [facility] Comment on above: Performed By: #### C MP ####[address] [address] GFR/1.73 sq M.predicted among non-blacks MDRD (S/P/Bld) [Vol rate/Area] 56 mL/min/{1.73_m2} Abnormal >90 [facility] Comment on above: Result Comment: CALC ULATIONS OF ESTIMATED GFR ARE PERFORMED USING THE 2020 CKD-EPI STUDY REFIT EQUATION WITHOUT THE RACE VARIABLE FOR THE IDMS-TRACEABLE CREATININE METHODS. https://jasn.asnjournals.org/content/early//ASN.62687 [address] Performed By: #### C MP ####[address] [address] Glucose [Mass/Vol] 100 mg/dL High 74 - 99 [facility] Comment on above: Performed By: #### C MP ####[address] [address] HCO3 (Bld) [Moles/Vol] 31 mmol/L Normal 21 - 32 [facility] Comment on above: Performed By: #### C MP ####[address] [address] Potassium [Moles/Vol] 3.8 mmol/L Normal 3.5 - 5.3 [facility] Comment on above: Performed By: #### C MP ####[address] [address] Protein [Mass/Vol] 6.4 g/dL Normal 6.4 - 8.2 [facility] Comment on above: Performed By: #### C MP ####[address] [address] Sodium [Moles/Vol] 138 mmol/L Normal 136 - 145 [facility] Comment on above: Performed By: #### C MP ####[address] [address] Urea nitrogen [Mass/Vol] 10 mg/dL Normal 6 - 23 [facility] Comment on above: Performed By: #### C MP ####[address] [address] Complete Blood Count + Diffe rentialon 08-20-2022 Basophils/100 WBC (Bld) 0.3 % 0.0 - 2.0 [place] [address] Work Phone: Erythrocyte distribution width (RBC) [Ratio] 13.3 % See Below [place] [address] Work Phone: Comment on above: Reference Range: 11. 5 - 14.5 Hematocrit (Bld) [Volume fraction] 42.4 % See Below [place] [address] Work Phone: Comment on above: Reference Range: 36. 0 - 46.0 Hemoglobin (Bld) [Mass/Vol] 14.0 g/dL See Below [place] [address] Work Phone: Comment on above: Reference Range: 12. 0 - 16.0 Lymphocytes/100 WBC (Bld) 21.3 % See Below [facility] Work Phone: Comment on above: Reference Range: 13. 0 - 44.0 MCHC (RBC) [Mass/Vol] 33.0 g/dL See Below [facility] Work Phone: Comment on above: Reference Range: 32. 0 - 36.0 MCV (RBC) [Entitic vol] 90 fL 80 - 100 [facility] Work Phone: Monocytes/100 WBC (Bld) 6.1 % 2.0 - 10.0 [facility] Work Phone: Neutrophils/100 WBC (Bld) 70.7 % See Below [facility] Work Phone: Comment on above: Reference Range: 40. 0 - 80.0 Platelets (Bld) [#/Vol] 108 10*3/uL below low threshold 150 - 450 [facility] Work Phone: Comment on above: Platelet count verif ied by smear review. no plt clumps or clots seen RBC (Bld) [#/Vol] 4.71 {x10E12/L} See Below [facility] Work Phone: Comment on above: Reference Range: 4.0 0 - 5.20 WBC (Bld) [#/Vol] 7.2 10*3/uL 4.4 - 11.3 [facility] Work Phone: Comment on above: SOURCE: Complete Blood Count + Differential 0.02 {x10E9/L} See Below [facility] Work Phone: Comment on above: Reference Range: 0.0 0 - 0.10 Complete Blood Count + Differential 0.04 {x10E9/L} See Below [facility] Work Phone: Comment on above: Reference Range: 0.0 0 - 0.70 Complete Blood Count + Differential 0.44 {x10E9/L} See Below [place] [address] Work Phone: Comment on above: Reference Range: 0.1 0 - 1.00 Complete Blood Count + Differential 1.54 {x10E9/L} See Below [place] [address] Work Phone: Comment on above: Reference Range: 1.2 0 - 4.80 Complete Blood Count + Differential 5.12 {x10E9/L} See Below [place] [address] Work Phone: Comment on above: Reference Range: 1.2 0 - 7.70 Percent differential counts (%) should be interpreted in the context of the absolute cell counts (cells/L). Complete Blood Count + Differential 0.6 % 0.0 - 6.0 [place] [address] Work Phone: Complete Blood Count + Differential 1.0 % above high threshold 0.0 - 0.9 [place] [address] Work Phone: Comment on above: Immature Granulocyte Count (IG) includes promyelocytes, myelocytes and metamyelocytes but does not include bands. Percent differential counts (%) should be interpreted in the context of the absolute cell counts (cells/L). HEMOGLOBIN A1Con 08-20-2022 Glucose [Mass/Vol] 154 mg/dL Normal [facility] Comment on above: Performed By: #### H BA1E #### [facility] [address] [place] [address] HbA1c (Bld) [Mass fraction] 7.0 % Abnormal [facility] Comment on above: Result Comment: Diag nosis of Diabetes-Adults Non-Diabetic: < or = 5.6% Increased risk for developing diabetes: 5.7-6.4% Diagnostic of diabetes: > or = 6.5% . Monitoring of Diabetes Age (y) Therapeutic Goal (%) Adults: >18 <7.0 Pediatrics: 13-18 <7.5 7-12 <8.0 0- 6 7.5-8.5 [employer]. Diabetes Care 33(S1), Apr 2009. Performed By: #### H BA1E #### [facility] [address] [place] [address] Hemoglobin A1Con 08-20-2022 Glucose [Mass/Vol] 154 mg/dL [place] [address] Work Phone: HbA1c (Bld) [Mass fraction] 7.0 % Abnormal [place] [address] Work Phone: Comment on above: Diagnosis of Diabete s-Adults Non-Diabetic: < or = 5.6% Increased risk for developing diabetes: 5.7-6.4% Diagnostic of diabetes: > or = 6.5%. Monitoring of Diabetes Age (y) Therapeutic Goal (%) Adults: >18 <7.0 Pediatrics: 13-18 <7.5 7-12 <8.0 0- 6 7.5-8.5 [employer]. Diabetes Care 33(S1), Apr 2009. Laboratory - Chemistry and C hemistry - challengeon 08-20-2022 Albumin BCP dye [Mass/Vol] 3.3 g/dL below low threshold 3.4 - 5.0 [place] [address] Work Phone: ALP [Catalytic activity/Vol] 145 U/L above high threshold 33 - 136 [place] [address] Work Phone: ALT With P-5'-P [Catalytic activity/Vol] 17 U/L 7 - 45 [place] [address] Work Phone: Comment on above: Patients treated wit h Sulfasalazine may generate falsely decreased results for ALT. Anion gap [Moles/Vol] 10 mmol/L 10 - 20 [place] [address] Work Phone: AST With P-5'-P [Catalytic activity/Vol] 21 U/L 9 - 39 [place] [address] Work Phone: Bilirubin [Mass/Vol] 0.3 mg/dL 0.0 - 1.2 [facility] Work Phone: Calcium [Mass/Vol] 8.7 mg/dL 8.6 - 10.3 MP-[facility] 120 Work Phone: Chloride [Moles/Vol] 101 mmol/L 98 - 107 [facility] Work Phone: CO2 [Moles/Vol] 31 mmol/L 21 - 32 -[facility] 120 Work Phone: Creatinine [Mass/Vol] 1.09 mg/dL above high threshold See Below [facility] 120 Work Phone: Comment on above: Reference Range: 0.5 0 - 1.05 Glucose [Mass/Vol] 100 mg/dL above high threshold 74 - 99 -[place] [address] Work Phone: Comment on above: SOURCE: Potassium [Moles/Vol] 3.8 mmol/L 3.5 - 5.3 - [place] [address] Work Phone: Protein [Mass/Vol] 6.4 g/dL 6.4 - 8.2 -[place] [address] Work Phone: Sodium [Moles/Vol] 138 mmol/L 136 - 145 -[place] [address] Work Phone: Urea nitrogen [Mass/Vol] 10 mg/dL 6 - 23 -[place] [address] Work Phone: MAGNESIUMon 08-20-2022 Magnesium [Mass/Vol] 1.47 mg/dL Low 1.60 - 2.40 [facility] Comment on above: Performed By: #### B HB2 #### [place] [address] [place] [address] Magnesium, Serumon Magnesium [Mass/Vol] 1.47 mg/dL below low threshold See Below [facility] 120 Work Phone: Comment on above: SOURCE: Reference Ra nge: 1.60 - 2.40 No Panel Informationon 08-20 56 {mL/min/1.73m2} Abnormal >90 [facility] 120 Work Phone: Comment on above: CALCULATIONS OF ROXANN MATED GFR ARE PERFORMED USING THE 2020 CKD-EPI STUDY REFIT EQUATION WITHOUT THE RACE VARIABLE FOR THE IDMS-TRACEABLE CREATININE METHODS.https://jasn.asnjournals.org/content/early/A SN.0398013786 VITAMIN B12on 08-20-2022 Cobalamin (Vitamin B12) [Mass/Vol] 237 pg/mL Normal 211 - 911 [facility] Comment on above: Performed By: #### V TB12 #### [place] [address] Lab Specimen Source Normal [facility] Comment on above: Performed By: #### V TB12 #### [place] [address] Performed By: #### C BCDF ####[place] [address] Performed By: #### V TDOH ####[place] [address] Performed By: #### C MP ####[place] [address] Performed By: #### B HB2 #### [place] [id number] VITAMIN D, 25-HYDROXYon 08-09 VITAMIN D, 25-HYDROXY 17 ng/mL Abnormal [facility] Comment on above: Result Comment: . DEFICIENCY: < 20 NG/ML INSUFFICIENCY: 20-29 NG/ML SUFFICIENCY: 30-100 NG/ML THIS ASSAY ACCURATELY QUANTIFIES THE SUM OF VITAMIN D3, 25-HYDROXY AND VIT D2,25-HYDROXY. Performed By: #### V TDOH ####[address] [address] Vitamin B12, Serumon 023 Cobalamin (Vitamin B12) [Mass/Vol] 237 pg/mL 211 - 911 [place] [address] Work Phone: Comment on above: SOURCE: Vitamin D 25-Hydroxyon 08-20 25-hydroxyvitamin D3 [Mass/Vol] 17 ng/mL Abnormal [place] [address] Work Phone: Comment on above: SOURCE: .DEFICIENCY: [...] (789.07,338.29) (R10.84,G89.29) Orders Abdominal pain, chronic, generalized Kdhzf-[id number]-Anqxccfkbzk Phenotype, Serum; Status:Active; Requested for:18Aug2022; Perform:Lab Services [...] Lumbar spine AP and Lateral Normal [facility] Work Phone: SPINE, LUMBOSACRAL 2 OR 3 EWSon 08-05-2022 SPINE, LUMBOSACRAL 2 OR 3 VIEWS Patient Name: JANELLE PICKETT STUDY: SPINE, LUMBOSACRAL; 2 OR 3 VIEWS; ; 08/05/2022 9:32 am INDICATION: lower back and leg pain M54.16: Lumbar radiculopathy, chronic M48.062: Neurogenic claudication due to lumbar spinal stenosis. COMPARISON: 11/16/2021 ACCESSION NUMBER(S): [id number] ORDERING CLINICIAN: KELLY CARRASCO FINDINGS: No acute fracture. Multilevel disc space narrowing. Multilevel facet arthropathy. Multilevel anterior osteophyte formation. Presumed old angulation deformity of the coccyx. IMPRESSION: Multilevel spondylosis without acute osseous abnormality of the lumbar spine. Electronically signed by: MATTHEW HU MD [facility] Established Visit (Pain Medi cine)on 08-04-2022 [...] I would not offer surgery at our angel [facility] I have recommended a low fat biliary diet to minimize symptoms, although, again this RUQ pain is not her biggest complaint today. I offered a second opinion by a hepatobiliary specialist, but patient declined as she does not want to drive to [place] and states that she already has a lot of doctors appointments. I will see her on an as needed basis. Chief Complaint Abdominal pain History of Present IllnessMs. Pickett is a 66-year-old female seen at [...] gallbladder surgery years and years ago at [facility]. She does not recall specifics of the surgery, but it sounds like it was performed in an acute setting. Her other abdominal surgery includes a and an emergent umbilical hernia repair with small bowel resection about 5 years ago, also performed at [facility]. She denies any fever, yellowing of the [...] mammogram (V15. (more content not included)... Normal [employer] Tobacco Screening.on 023 Fall risk assessment a) No falls within the last year [facility] Work Phone: Tobacco use status CPHS a) Yes [facility] Work Phone: MRCP Abdomen w/wo Contraston 07-20-2022 MRCP Abdomen WO and W contrast IV Normal [facility] Work Phone: MRCP WITH ABDOMEN WO/W CONTR Carmen 07-20-2022 MRCP WITH ABDOMEN WO/W CONTRAST Patient Name: JANELLE PICKETT STUDY: MRCP WITH ABDOMEN WO/W CONTRAST; 07/20/2022 5:11 pm INDICATION: LUQ pain, abnorm HIDA. COMPARISON: HIDA [address] abdomen and pelvis with contrast 12 June 2022 ACCESSION NUMBER(S): [id number] ORDERING CLINICIAN: CALLIE MCDONOUGH TECHNIQUE: Multi-planar, multi-pulse [...] ADENOMA Electronically signed by: LAKSHMI LANE MD [facility] Complete Blood Count + Diffe franklin 07-16-2022 Basophils/100 WBC (Bld) 0.3 % 0.0 - 2.0 [facility] Work Phone: Erythrocyte distribution width (RBC) [Ratio] 13.2 % See Below [facility] Work Phone: Comment on above: Reference Range: 11. 5 - 14.5 Hematocrit (Bld) [Volume fraction] 45.8 % See Below [facility] Work Phone: Comment on above: Reference Range: 36. 0 - 46.0 Hemoglobin (Bld) [Mass/Vol] 14.8 g/dL See Below [facility] Work Phone: Comment on above: Reference Range: 12. 0 - 16.0 Lymphocytes/100 WBC (Bld) 27.4 % See Below [facility] Work Phone: Comment on above: Reference Range: 13. 0 - 44.0 MCHC (RBC) [Mass/Vol] 32.3 g/dL See Below [facility] Work Phone: Comment on above: Reference Range: 32. 0 - 36.0 MCV (RBC) [Entitic vol] 91 fL 80 - 100 [facility] Work Phone: Monocytes/100 WBC (Bld) 6.2 % 2.0 - 10.0 [facility] Work Phone: Neutrophils/100 WBC (Bld) 64.9 % See Below [facility] Work Phone: Comment on above: Reference Range: 40. 0 - 80.0 Platelets (Bld) [#/Vol] 115 10*3/uL below low threshold 150 - 450 [facility] Work Phone: Comment on above: Platelet count verif ied by smear review. no plt clumps or clots seen RBC (Bld) [#/Vol] 5.06 {x10E12/L} See Below [facility] Work Phone: Comment on above: Reference Range: 4.0 0 - 5.20 WBC (Bld) [#/Vol] 6.8 10*3/uL 4.4 - 11.3 [facility] Work Phone: Complete Blood Count + Differential 0.02 {x10E9/L} See Below [facility] Work Phone: Comment on above: Reference Range: 0.0 0 - 0.10 Complete Blood Count + Differential 0.04 {x10E9/L} See Below [facility] Work Phone: Comment on above: Reference Range: 0.0 0 - 0.70 Complete Blood Count + Differential 0.42 {x10E9/L} See Below [facility] Work Phone: Comment on above: Reference Range: 0.1 0 - 1.00 Complete Blood Count + Differential 1.86 {x10E9/L} See Below [facility] Work Phone: Comment on above: Reference Range: 1.2 0 - 4.80 Complete Blood Count + Differential 4.42 {x10E9/L} See Below [facility] Work Phone: Comment on above: Reference Range: 1.2 0 - 7.70 Percent differential counts (%) should be interpreted in the context of the absolute cell counts (cells/L). Complete Blood Count + Differential 0.6 % 0.0 - 0.9 [facility] Work Phone: Comment on above: Immature Granulocyte Count (IG) includes promyelocytes, myelocytes and metamyelocytes but does not include bands. Percent differential counts (%) should be interpreted in the context of the absolute cell counts (cells/L). Cult, Urineon 07-16-2022 Bacteria identified Cx Nom (U) [facility] Work Phone: Ferritin, Serumon 07-16-2022 Ferritin [Mass/Vol] 111 ug/L 8 - 150 [facility] Work Phone: Hemoglobin A1Con 07-16-2022 Glucose [Mass/Vol] 171 mg/dL [facility] Work Phone: HbA1c (Bld) [Mass fraction] 7.6 % Abnormal [facility] Work Phone: Comment on above: Diagnosis of Diabete s-Adults Non-Diabetic: < or = 5.6% Increased risk for developing diabetes: 5.7-6.4% Diagnostic of diabetes: > or = 6.5%. Monitoring of Diabetes Age (y) Therapeutic Goal (%) Adults: >18 <7.0 Pediatrics: 13-18 <7.5 7-12 <8.0 0- 6 7.5-8.5 [employer]. Diabetes Care 33(S1), Apr 2009. Hepatitis Panel, Acute (HCFA )on 07-16-2022 HAV IgM IA Ql Non-Reactive See Below [facility] Work Phone: Comment on above: SOURCE: Reference Ra nge: NONREACTIVE Biotin interference may cause falsely decreased results. Patients taking a Biotin dose of up to 5 mg/day should refrain from taking Biotin for 24 hours before sample collection. Providers may contact their local laboratory for further information. Hepatitis Panel, Acute (HCFA) Non-Reactive See Below [facility] Work Phone: Comment on above: Reference [...] dye [Mass/Vol] 3.4 g/dL 3.4 - 5.0 [facility] Work Phone: Albumin Ql (U) 1052.2 mg/L See Below [facility] Work Phone: Comment on above: Reference Range: Not Established Albumin/Creatinine DL <= 20 mg/L (U) [Mass ratio] 1388.1 {ug/mg_crt} above high threshold 0.0 - 30.0 [facility] Work Phone: ALP [Catalytic activity/Vol] 112 U/L 33 - 136 [facility] Work Phone: ALT With P-5'-P [Catalytic activity/Vol] 16 U/L 7 - 45 [facility] Work Phone: Comment on above: Patients treated wit h Sulfasalazine may generate falsely decreased results for ALT. Anion gap [Moles/Vol] 10 mmol/L 10 - 20 [facility] Work Phone: AST With P-5'-P [Catalytic activity/Vol] 17 U/L 9 - 39 [facility] Work Phone: Bilirubin [Mass/Vol] 0.2 mg/dL 0.0 - 1.2 [facility] Work Phone: Calcium [Mass/Vol] 8.6 mg/dL 8.6 - 10.3 [facility] Work Phone: Chloride [Moles/Vol] 103 mmol/L 98 - 107 [facility] Work Phone: CO2 [Moles/Vol] 29 mmol/L 21 - 32 [facility] Work Phone: Creatinine (U) [Mass/Vol] 75.8 mg/dL See Below [facility] Work Phone: Comment on above: Reference Range: 20. 0 - 320.0 Creatinine [Mass/Vol] 1.00 mg/dL See Below [facility] Work Phone: Comment on above: Reference Range: 0.5 0 - 1.05 Glucose [Mass/Vol] 124 mg/dL above high threshold 74 - 99 [facility] Work Phone: Iron [Mass/Vol] 44 ug/dL 35 - 150 [facility] Work Phone: Iron binding capacity [Mass/Vol] 249 ug/dL 240 - 445 [facility] Work Phone: Potassium [Moles/Vol] 4.1 mmol/L 3.5 - 5.3 [facility] Work Phone: Protein [Mass/Vol] 6.6 g/dL 6.4 - 8.2 [facility] Work Phone: Sodium [Moles/Vol] 138 mmol/L 136 - 145 [facility] Work Phone: Urea nitrogen [Mass/Vol] 8 mg/dL 6 - 23 [facility] Work Phone: Lipid Panelon 07-16-2022 Cholesterol [Mass/Vol] 171 mg/dL 0 - 199 [facility] Work Phone: Comment on above: . [...] guidelines reference: NCEP ATPIII Guidelines, HILDA 2001, 258:0306-97. Venipuncture immediately after or during the administration of Metamizole may lead to falsely low results. Testing should be performed immediately prior to Metamizole dosing. Cholesterol in HDL [Mass/Vol] 34.0 mg/dL Abnormal [facility] Work Phone: Comment on above: . AGE VERY LOW LOW N ORMAL HIGH 0-19 Y < 35 < 40 40-45 ---- 20-24 Y ---- < 40 >45 ---- >24 Y ---- < 40 40-60 >60. Cholesterol in LDL [Mass/Vol] 78 mg/dL 0 - 99 [facility] Work Phone: Comment on above: . NEAR BORD AGE KESHA RABLE OPTIMAL HIGH HIGH VERY HIGH 0-19 Y 0 - 109 --- 110-129 >/= 130 ---- 20-24 Y 0 - 119 --- 120-159 >/= 160 ---- >24 Y 0 - 99 100-129 130-159 160-189 >/=190. Cholesterol non HDL [Mass/Vol] 137 mg/dL [facility] Work Phone: Comment on above: AGE DESIRABLE BORDER LINE HIGH HIGH VERY HIGH 0-19 Y 0 - 119 120 - 144 >/= 145 >/= 160 20-24 Y 0 - 149 150 - 189 >/= 190 ---- >24 Y 30 MG/DL ABOVE LDL CHOLESTEROL GOAL. Cholesterol.total/Chol esterol in HDL [Mass ratio] 5.0 {ratio} [facility] Work Phone: Comment on above: REF VALUESDESIRABLE < 3.4HIGH RISK > 5.0 Triglyceride [Mass/Vol] 294 mg/dL above high threshold 0 - 149 [facility] Work Phone: Comment on above: . AGE [...] mg/dL above high threshold 0 - 40 [facility] Work Phone: Magnesium, Serumon 3 Magnesium [Mass/Vol] 1.37 mg/dL below low threshold See Below [facility] Work Phone: Comment on above: Reference Range: 1.6 0 - 2.40 No Panel Informationon 07-16 18 % below low threshold 25 - 45 [facility] Work Phone: 62 {mL/min/1.73m2} >90 [facility] Work Phone: Comment on above: CALCULATIONS OF ROXANN MATED GFR ARE PERFORMED USING THE 2020 CKD-EPI STUDY REFIT EQUATION WITHOUT THE RACE VARIABLE FOR THE IDMS-TRACEABLE CREATININE METHODS.https://jasn.asnjournals.org/content/early//A SN.1373325499 POCT UA Automated manually r esultedon 07-16-2022 Appearance (U) Clear Clear [facility] Work Phone: Glucose Test strip (U) [Mass/Vol] Negative NEGATIVE mg/dl [facility] Work Phone: Hemoglobin Ql (U) MODERATE (2+) Abnormal NEGATIVE [facility] Work Phone: Interpretation and review of laboratory results Abnormal [facility] Work Phone: Leukocyte esterase Test strip Ql (U) Negative NEGATIVE [facility] Work Phone: Nitrite Ql (U) Negative NEGATIVE [facility] Work Phone: pH (U) 5.5 [pH] No Reference Range Established [facility] Work Phone: POC Bilirubin, Urine Negative NEGATIVE [facility] Work Phone: POC Color, Urine Yellow Straw, Yellow, Light Yellow [facility] Work Phone: POC Ketones, Urine Negative NEGATIVE mg/dl [facility] Work Phone: POC Protein, Urine 100 (2+) Abnormal NEGATIVE, 30 (1+) mg/dl [facility] Work Phone: POC Specific [place], Urine 1.025 1.005 - 1.035 [facility] Work Phone: POC Urobilinogen, Urine 0.2 0.2, 1.0 EU/DL [facility] Work Phone: [facility] Work Phone: T4 - Free Thyroxine, Serumon 07-16-2022 Free T4 [Mass/Vol] 0.84 ng/dL See Below [facility] Work Phone: Comment on above: Reference Range: 0.6 1 - 1.12 Thyroxine Free testing is performed using different testing methodology at [facility] than at other [facility]. Direct result comparisons should only be [...] blood draw. TSH - Thyroid Stimulating Ho rmotilio, Serumon 07-16-2022 TSH Qn 7.04 m[IU]/L above high threshold See Below [facility] Work Phone: Comment on above: Reference Range: 0.4 4 - 3.98 TSH testing is performed using different testing methodology at [facility] than at other [facility]. Direct result comparisons should only be made within the same method. URINE CULTURE,BACTERIALon URINE CULTURE,BACTERIAL PATIENT: JANELLE PICKETT LOCATION: [facility] BILL#: [id number] : 57 AGE: SEX: F ORDERED BY: NAYANA GU SOURCE: URINE COLLECTED: 07/16/22 09:50 ANTIBIOTICS AT JUJU.: RECEIVED : 07/16/22 18:29 SITE: Clean Catch/Voided R E S U L T S URINE CULTURE,BACTERIAL FINAL 07/17/22 13:02 NO SIGNIFICANT GROWTH. Normal [facility] Comment on above: Performed By: #### U [facility] ####[id number] [place] [address] Office Visit (Urology)on Follow-up visit Diagnoses/Problems Assessed [...] Medical History Problems H/O mammogram (V15.89) (Z92.89) [id number] MED [facility] History of Papanicolaou smear (V45.89) (Z98.890) 02/2022- NORMAL. DONE AT [address] [place] [address] History of Influenza vaccination declined (V64.06) (Z28.21) Surgical History Problems History of Colonoscopy 2020- [facility]- NORMAL. REPEAT IN 10 YEARS History of Medial branch block Managed By: Miguel Angelo (Pain Medicine) Bilat L4-S1 MBB History of Oophorectomy [id number]- RIGHT Family History Mother Family history of Aneurysm [id number]- Father Family history of Edema 1970 Brother [...] Disintegrating1 TAB Q4H PRN OneTouch Delica Plus [id number] OneTouch Ultra 2 w/Device Kit OneTouch Ultra In Vitro Strip Oz (more content not included)... Normal [employer] Tobacco Screening.on 023 Fall risk assessment a) No falls within the last year [facility] Work Phone: Tobacco use status CPHS b) No [facility] Work Phone: Tobacco Screening. Yes [facility] Work Phone: Provider Note - ED v3on [...] be MiraLAX for her constipation. She called marketing professional luis today because she was nauseated and having abdominal pain once again. And with received Zofran intravenously in route which marketing professional states helped. When she is placed in [...] Medical History Problems H/O mammogram (V15.89) (Z92.89) 0658-[id number] MED C[facility]TR[facility] History of Papanicolaou smear (V45.89) (Z98.890) 02/2022- NORMAL. DONE AT [address] [place] [address] History of Influenza vaccination declined (V64.06) (Z28.21) Surgical History Problems History of Colonoscopy 2020- [facility]- NORMAL. REPEAT IN 10 YEARS History of Medial branch block Managed By: Miguel Angelo (Pain Medicine) Karlo L4-S1 MBB History of Oophorectomy 1553-2833- RIGHT Family History Mother Family history of Aneurysm [phone]- Father Family history of Edema 1970 Brother [...] weeks. Has been seen here and at [facility] in that time for same c/o. She reports nausea as well. EMS gave 4mG Zofran INTEGRATED SPECIALIST)(1). Triage Information: Most recent Vital Sign Value [...] Med Status: Incom (more content not included)... [facility] Risk Screen - Adult Emergenc yon 07-03-2022 [...] Learning Preferencesverbal instruction Cultural Considerationsnone Developmental Considerationsnone Taoism Considerationsnone Learning Assessment (Other Learner): Learning Assessment [...] an injured patient at a Trauma Center [place]/[facility]/[place]): no Electronic Signatures: Jessica Luis (PANDA) (Signed 03-Jul-2022 09:03) Authored: Preferred Language, Patient Preferred Pharmacy, Advanced Directives, Family Violence Adult, Learning Assessment (Patient), Learning Assessment (Other Learner), Pressure Injury/TB/Substance, Pressure Injury, CAGE Last Updated: 03-Jul-2022 09:03 by Jessica Luis (PANDA) [facility] Triage - EDon 07-03-2022 Triage - ED Quick Triage: The patient and/or guardian verbally acknowledges placement for services into the following (when Urgent Care Service hours are operating):emergency department Chart Review: ARRIVAL INFORMATION Mode of Arrival: ambulance Agency: [facility] Agency Name: Katie CHIEF COMPLAINT JANELLE PICKETT is a Female patient with a chief complaint of abdominal pain (Brought to ED per [facility] squad from home with c/o mid abd pain that radiates to her back for 2-3 weeks. Has been seen here and at [facility] in that time for same c/o. She reports nausea as well. EMS gave 4mG Zofran INTEGRATED SPECIALIST). Triage Date/Time: 03-Jul-2022 08:57 JOSE: 3 Pain Rating (0-10): 10 = Severe Pain location: mid abd and into back Vital Signs: Temperature: 97.5F ( 36.3C) taken temporal Blood Pressure: 185/81 Mean: Heart Rate: 75 Respiratory Rate: 18 Pulse Oximetry: 98% on room air, no respiratory support. Weight: 218.2 pounds. Calculated 99.0 kg. Michael Coma Scale: Best Eye Response: (E4) [...] Medical History Reviewedyes Electronic Signatures: Keri Gu (RN) (Signed 03-Jul-2022 09:05) Entered: Risk Screens, Pain, Travel History, Chart Review, Scores, Past Medical History Authored: Quick Triage, Risk Screens, Pain, Travel History, Chart Review, Scores, Past Medical History Last Updated: 03-Jul-2022 09:05 by Keri Gu (RN) [facility] BILIARY WITH EF W OR W/O CCK on 07-02-2022 BILIARY WITH EF W OR W/O CCK Patient Name: JANELLE PICKETT STUDY: BILIARY WITH EF W OR W/O CCK; 07/02/2022 12:43 pm INDICATION: abdominal pain. COMPARISON: None. ACCESSION NUMBER(S): [id number] ORDERING CLINICIAN: CALLIE MCDONOUGH TECHNIQUE: DIVISION OF [...] common bile duct. Images were interpreted at [facility]. Electronically signed by: EMELINA DIAZ MD [facility] NM Biliary with EF w/wo CCKo n 07-02-2022 NM Biliary with EF w/wo CCK Normal [facility] Work Phone: CBC AND DIFFERENTIALon 06-13 % AUTOMATED IMMATURE GRAN 0.4 % Normal 0.0 - 0.9 [facility] Comment on above: Result Comment: Mira ture Granulocyte Count (IG) includes promyelocytes, myelocytes and metamyelocytes but does not include bands. Percent differential counts (%) should be interpreted in the context of the absolute cell counts (cells/L). Performed By: #### C BCDF #### [address] [address] Basophils (Bld) [#/Vol] 0.02 10*3/uL Normal 0.00 - 0.10 [facility] Comment on above: Performed By: #### C BCDF #### [address] [address] Basophils/100 WBC (Bld) 0.3 % Normal 0.0 - 2.0 [facility] Comment on above: Performed By: #### C BCDF #### [address] [address] Eosinophils (Bld) [#/Vol] 0.07 10*3/uL Normal 0.00 - 0.70 [facility] Comment on above: Performed By: #### C BCDF #### [address] [address] Eosinophils/100 WBC (Bld) 0.9 % Normal 0.0 - 6.0 [facility] Comment on above: Performed By: #### C BCDF #### [address] [address] Erythrocyte distribution width (RBC) [Ratio] 12.9 % Normal 11.5 - 14.5 [facility] Comment on above: Performed By: #### C BCDF #### [address] [address] Hematocrit (Bld) [Volume fraction] 39.2 % Normal 36.0 - 46.0 [facility] Comment on above: Performed By: #### C BCDF #### [address] [address] Hemoglobin (Bld) [Mass/Vol] 13.3 g/dL Normal 12.0 - 16.0 [facility] Comment on above: Performed By: #### C BCDF #### [address] [address] Lymphocytes (Bld) [#/Vol] 2.25 10*3/uL Normal 1.20 - 4.80 [facility] Comment on above: Performed By: #### C BCDF #### [address] [address] Lymphocytes/100 WBC (Bld) 30.5 % Normal 13.0 - 44.0 [facility] Comment on above: Performed By: #### C BCDF #### [address] [address] MCHC (RBC) [Mass/Vol] 33.9 g/dL Normal 32.0 - 36.0 [facility] Comment on above: Performed By: #### C BCDF #### [address] [address] MCV (RBC) [Entitic vol] 89 fL Normal 80 - 100 [facility] Comment on above: Performed By: #### C BCDF #### [address] [address] Monocytes (Bld) [#/Vol] 0.49 10*3/uL Normal 0.10 - 1.00 [facility] Comment on above: Performed By: #### C BCDF #### [address] [address] Monocytes/100 WBC (Bld) 6.6 % Normal 2.0 - 10.0 [facility] Comment on above: Performed By: #### C BCDF #### [address] [address] Neutrophils (Bld) [#/Vol] 4.51 10*3/uL Normal 1.20 - 7.70 [facility] Comment on above: Result Comment: Perc ent differential counts (%) should be interpreted in the context of the absolute cell counts (cells/L). Performed By: #### C BCDF #### [address] [address] Neutrophils/100 WBC (Bld) 61.3 % Normal 40.0 - 80.0 [facility] Comment on above: Performed By: #### C BCDF #### [address] [address] Platelets (Bld) [#/Vol] 109 10*3/uL Low 150 - 450 [facility] Comment on above: Result Comment: Plat elet count verified by smear review. Performed By: #### C BCDF #### [place] [id number] RBC 4.39 x10E12/L Normal 4.00 - 5.20 [facility] Comment on above: Performed By: #### C BCDF #### [place] [id number] WBC (Bld) [#/Vol] 7.4 10*3/uL Normal 4.4 - 11.3 [facility] Comment on above: Performed By: #### C BCDF #### [place] [id number] COMPREHENSIVE PANELon 2022 Albumin [Mass/Vol] 3.1 g/dL Low 3.4 - 5.0 [facility] Comment on above: Performed By: #### B HB2 #### [place] [id number] ALP [Catalytic activity/Vol] 165 U/L High 33 - 136 [facility] Comment on above: Performed By: #### B HB2 #### [address] [address] ALT [Catalytic activity/Vol] 19 U/L Normal 7 - 45 [facility] Comment on above: Result Comment: Stephany ents treated with Sulfasalazine may generate falsely decreased results for ALT. Performed By: #### B HB2 #### [address] [address] Anion gap [Moles/Vol] 11 mmol/L Normal 10 - 20 [facility] Comment on above: Performed By: #### B HB2 #### [address] [address] AST [Catalytic activity/Vol] 27 U/L Normal 9 - 39 [facility] Comment on above: Result Comment: MILD HEMOLYSIS DETECTED. The result may be falsely elevated due to hemolysis or other interferents. Clinical correlation is recommended. Repeat testing may be considered. Performed By: #### B HB2 #### [address] [address] Bilirubin [Mass/Vol] 0.2 mg/dL Normal 0.0 - 1.2 [facility] Comment on above: Performed By: #### B HB2 #### [address] [address] Calcium [Mass/Vol] 8.2 mg/dL Low 8.6 - 10.3 [facility] Comment on above: Performed By: #### B HB2 #### [address] [address] Chloride [Moles/Vol] 101 mmol/L Normal 98 - 107 [facility] Comment on above: Performed By: #### B HB2 #### [address] [address] Creatinine [Mass/Vol] 1.36 mg/dL High 0.50 - 1.05 [facility] Comment on above: Performed By: #### B HB2 #### [address] [address] GFR/1.73 sq M.predicted among non-blacks MDRD (S/P/Bld) [Vol rate/Area] 43 mL/min/{1.73_m2} Abnormal >90 [facility] Comment on above: Result Comment: CALC ULATIONS OF ESTIMATED GFR ARE PERFORMED USING THE 2020 CKD-EPI STUDY REFIT EQUATION WITHOUT THE RACE VARIABLE FOR THE IDMS-TRACEABLE CREATININE METHODS. https://jasn.asnjournals.org/content/early//ASN.28452 [address]96 Performed By: #### B HB2 #### [address] [address] Glucose [Mass/Vol] 230 mg/dL High 74 - 99 [facility] Comment on above: Performed By: #### B HB2 #### [address] [address] HCO3 (Bld) [Moles/Vol] 27 mmol/L Normal 21 - 32 [facility] Comment on above: Performed By: #### B HB2 #### [address] [address] Potassium [Moles/Vol] 3.9 mmol/L Normal 3.5 - 5.3 [facility] Comment on above: Result Comment: MILD HEMOLYSIS DETECTED. The result may be falsely elevated due to hemolysis or other interferents. Clinical correlation is recommended. Repeat testing may be considered. Performed By: #### B HB2 #### [address] [address] Protein [Mass/Vol] 6.1 g/dL Low 6.4 - 8.2 [facility] Comment on above: Performed By: #### B HB2 #### [address] [address] Sodium [Moles/Vol] 135 mmol/L Low 136 - 145 [facility] Comment on above: Performed By: #### B HB2 #### [address] [address] Urea nitrogen [Mass/Vol] 20 mg/dL Normal 6 - 23 [facility] Comment on above: Performed By: #### B HB2 #### [address] [address] [address] ABDOMEN AND PELVIS W IV C [facility] 06-13-2022 CT ABDOMEN AND PELVIS W IV CONTRAST STUDY: CT Abdomen and Pelvis with IV Contrast; 06/12/2022 11:13 PM. INDICATION: Epigastric abdominal pain. Lower back pain. Sciatica. Unable to eat due to pain and constipation. COMPARISON: None Available. ACCESSION NUMBER(S): [id number] ORDERING CLINICIAN: RETA BARLOW DO TECHNIQUE: CT [...] Electronically signed by: RACHEL GENTILE MD Normal [facility] LACTATEon 06-13-2022 Lactate [Moles/Vol] 1.8 mmol/L Normal 0.4 - 2.0 [facility] Comment on above: Result Comment: Funmi puncture immediately after or during the administration of Metamizole may lead to falsely low results. Testing should be performed immediately prior to Metamizole dosing. Performed By: #### L ACT #### [place] [address] LIPASEon 06-13-2022 Lipase [Catalytic activity/Vol] 52 U/L Normal 9 - 82 [facility] Comment on above: Result Comment: Funmi puncture immediately after or during the administration of Metamizole may lead to falsely low results. Testing should be performed immediately prior to Metamizole dosing. Z-ocrmvi-x-benzoquinone imine (metabolite of Acetaminophen) will generate erroneously low results in samples for patients that have taken toxic doses of acetaminophen. Performed By: #### B [facility] #### [address] [address] TROPONIN I, HIGH SENSITIVITY on 06-13-2022 TROPONIN I, HIGH SENSITIVITY 7 ng/L Normal 0 - 13 [facility] Comment on above: Result Comment: . Less [...] performed using a different testing methodology at [facility] than at other [facility]. Direct result comparisons should only be made within the same method. Performed By: #### T [facility] #### [address] [address] TROPONIN I, HIGH SENSITIVITY 7 ng/L Normal 0 - 13 [facility] Comment on above: Result Comment: . Less [...] performed using a different testing methodology at [facility] than at other [facility]. Direct result comparisons should only be made within the same method. Performed By: #### B HB2 #### [address] [address] UA MICROSCOPICon 06-13-2022 Mucus Ql (Urine sed) 1+ /LPF Normal [facility] Comment on above: Performed By: #### B HB2 #### [place] [address] RBC 30 /HPF Abnormal 0-5 [facility] Comment on above: Performed By: #### B HB2 #### [place] [id number] SQUAMOUS EPITH. CELLS 10 /HPF Normal [facility] Comment on above: Performed By: #### B HB2 #### [place] [address] WBC 4 /HPF Normal 0-5 [facility] Comment on above: Performed By: #### B HB2 #### [place] [id number] CT Abdomen and Pelvis with I V Contraston 06-12-2022 CT Abdomen and Pelvis W contrast IV Normal AL-Kquzwls-Fnaivi.ru Work Phone: Complete Blood Count + Diffe rentialon 06-12-2022 Basophils/100 WBC (Bld) 0.3 % 0.0 - 2.0 NX-Yeybfbc-HqpFlythegap Phone: Erythrocyte distribution width (RBC) [Ratio] 12.9 % See Below ES-Avqucig-ZhjFlythegap Phone: Comment on above: Reference Range: 11. 5 - 14.5 Hematocrit (Bld) [Volume fraction] 39.2 % See Below JO-Hrqxpcj-ZduFlythegap Phone: Comment on above: Reference Range: 36. 0 - 46.0 Hemoglobin (Bld) [Mass/Vol] 13.3 g/dL See Below UK-Gnjgyjp-MxpFlythegap Phone: Comment on above: Reference Range: 12. 0 - 16.0 Lymphocytes/100 WBC (Bld) 30.5 % See Below KU-Tolispk-BipFlythegap Phone: Comment on above: Reference Range: 13. 0 - 44.0 MCHC (RBC) [Mass/Vol] 33.9 g/dL See Below Spinal USA[employer]box Work Phone: Comment on above: Reference Range: 32. 0 - 36.0 MCV (RBC) [Entitic vol] 89 fL 80 - 100 XM-Zjabwcg-Onl land Work Phone: Monocytes/100 WBC (Bld) 6.6 % 2.0 - 10.0 HJ-Cxtnupi-Qwz land Work Phone: Neutrophils/100 WBC (Bld) 61.3 % See Below GF-Rnzxrsp-Fst land Work Phone: Comment on above: Reference Range: 40. 0 - 80.0 Platelets (Bld) [#/Vol] 109 10*3/uL below low threshold 150 - 450 JT-Uudnuom-Ogo land Work Phone: Comment on above: Platelet count verif ied by smear review. RBC (Bld) [#/Vol] 4.39 {x10E12/L} See Below infoBizzydigitalbox Work Phone: Comment on above: Reference Range: 4.0 0 - 5.20 WBC (Bld) [#/Vol] 7.4 10*3/uL 4.4 - 11.3 Text[employer] W logydigitalbox Work Phone: Complete Blood Count + Differential 0.02 {x10E9/L} See Below JW-Qjkfcsg-Zyf land Work Phone: Comment on above: Reference Range: 0.0 0 - 0.10 Complete Blood Count + Differential 0.07 {x10E9/L} See Below CA-Tegakcj-Tta land Work Phone: Comment on above: Reference Range: 0.0 0 - 0.70 Complete Blood Count + Differential 0.49 {x10E9/L} See Below IH-Njqebsh-Jij land Work Phone: Comment on above: Reference Range: 0.1 0 - 1.00 Complete Blood Count + Differential 2.25 {x10E9/L} See Below UH-Fyctgzl-Vhz land Work Phone: Comment on above: Reference Range: 1.2 0 - 4.80 Complete Blood Count + Differential 4.51 {x10E9/L} See Below [employer] Phone: Comment on above: Reference Range: 1.2 0 - 7.70 Percent differential counts (%) should be interpreted in the context of the absolute cell counts (cells/L). Complete Blood Count + Differential 0.9 % 0.0 - 6.0 [employer] Work Phone: Complete Blood Count + Differential 0.4 % 0.0 - 0.9 SU-Ijhjrkc-Boyivi.ru Work Phone: Comment on above: Immature Granulocyte Count (IG) includes promyelocytes, myelocytes and metamyelocytes but does not include bands. Percent differential counts (%) should be interpreted in the context of the absolute cell counts (cells/L). Laboratory - Chemistry and C hemistry - challengeon 06-12-2022 Albumin BCP dye [Mass/Vol] 3.1 g/dL below low threshold 3.4 - 5.0 XS-Kbvsjlm-Qvuivi.ru Work Phone: ALP [Catalytic activity/Vol] 165 U/L above high threshold 33 - 136 [employer] Phone: ALT With P-5'-P [Catalytic activity/Vol] 19 U/L 7 - 45 VI-Ktvwwqt-Nweivi.ru Work Phone: Comment on above: Patients treated wit h Sulfasalazine may generate falsely decreased results for ALT. Anion gap [Moles/Vol] 11 mmol/L 10 - 20 [employer] Work Phone: AST With P-5'-P [Catalytic activity/Vol] 27 U/L 9 - 39 [employer] Phone: Comment on above: MILD HEMOLYSIS DETEC CLAIRE. The result may be falsely elevated due tohemolysis or other interferents. Clinical correlation is recommended.Repeat testing may be considered. Bilirubin [Mass/Vol] 0.2 mg/dL 0.0 - 1.2 [facility] Work Phone: Calcium [Mass/Vol] 8.2 mg/dL below low threshold 8.6 - 10.3 NX-Gydplvp-Nhi land Work Phone: Chloride [Moles/Vol] 101 mmol/L 98 - 107 MP-U rology-Managed Systems Work Phone: CO2 [Moles/Vol] 27 mmol/L 21 - 32 MP-Urolog y-[employer] Systems Work Phone: Creatinine [Mass/Vol] 1.36 mg/dL above high threshold See Below CN-Ugpnmof-Rcd Mer[employer] Work Phone: Comment on above: Reference Range: 0.5 0 - 1.05 Glucose [Mass/Vol] 230 mg/dL above high threshold 74 - 99 AZ-Kxtftgx-Rnu land Work Phone: Potassium [Moles/Vol] 3.9 mmol/L 3.5 - 5.3 - Urology-[employer] Work Phone: Comment on above: MILD HEMOLYSIS DETEC CLAIRE. The result may be falsely elevated due tohemolysis or other interferents. Clinical correlation is recommended.Repeat testing may be considered. Protein [Mass/Vol] 6.1 g/dL below low threshold 6.4 - 8.2 DQ-Ttfpwkr-Vrj land Work Phone: Sodium [Moles/Vol] 135 mmol/L below low threshold 136 - 145 IW-Eeqomsn-Crs land Work Phone: Urea nitrogen [Mass/Vol] 20 mg/dL 6 - 23 RD-Ijficwa-Lyh land Work Phone: Lactate, Levelon 06-12-2022 Lactate [Moles/Vol] 1.8 mmol/L 0.4 - 2.0 MP-Ur ology-[employer] Work Phone: Comment on above: Venipuncture immedia tely after or during the administration of Metamizole may lead to falsely low results. Testing should be performed immediately prior to Metamizole dosing. Lipase, Serumon 06-12-2022 Lipase [Catalytic activity/Vol] 52 U/L 9 - 82 XC-Wjwevoe-Hky land Work Phone: Comment on above: Venipuncture immedia tely after or during the administration of Metamizole may lead to falsely low results. Testing should be performed immediately prior to Metamizole dosing. F-jdusdh-s-benzoquinone imine (metabolite of Acetaminophen) will generate erroneously low results in samples for patients that have taken toxic doses of acetaminophen. No Panel Informationon 06-12 43 {mL/min/1.73m2} Abnormal >90 MP-Uro logOncoSec Medical-[employer] Phone: Comment on above: CALCULATIONS OF ROXANN MATED GFR ARE PERFORMED USING THE 2020 CKD-EPI STUDY REFIT EQUATION WITHOUT THE RACE VARIABLE FOR THE IDMS-TRACEABLE CREATININE METHODS.https://jasn.asnjournals.org/content///A SN.3971658301 Provider Note - ED v3on Provider Note [...] acute ST or T wave changes. The NC interval is 146 ms. The QRS duration [...] chart was dictated with the use of The Orange Chef software within the framework of the current electronic medical (more content not included)... Normal [facility] Risk Screen - Adult Emergenc yon 06-12-2022 [...] Communicatenone Learning Preferencesaudio Cultural Considerationsnone Developmental Considerationsnone Taoism Considerationsnone Learning Assessment (Other Learner): Learning Assessment [...] an injured [place] at a Tra[place] Center [place]/[facility]/[place]): no Electronic Signatures: Gail Mayes (PANDA) (Signed 12-Jun-2022 21:58) Authored: Preferred Language, Patient Preferred Pharmacy, Advanced Directives, Family Violence Adult, Learning Assessment (Patient), Learning Assessment (Other Learner), Pressure Injury/TB/Substance, Pressure Injury, CAGE Last Updated: 12-Jun-2022 21:58 by Gail Mayes (PANDA) References: 1. Data Referenced From Provider Note - ED v3 12-Jun-2022 21:06 Normal [facility] TROPONIN I, HIGH SENSITIVITY on 06-12-2022 Tropinin I.cardiac panel High sensitivity method 7 ng/L 0 - 13 [employer] Phone: Comment on above: .Less than 99th [...] performed using a different testing methodology at [facility] than at other [facility]. Direct result comparisons should only be made within the same method. Tropinin I.cardiac panel High sensitivity method 7 ng/L 0 - 13 [employer] Work Phone: Comment on above: .Less than [...] performed using a different testing methodology at [facility] than at other [facility]. Direct result comparisons should only [...] BMI (kg/m2): 41.468 Calculated BSA (m2) 2.07 [place] Coma Scale: Best Eye Response: (E4) spontaneous Best Motor Response: (M6) obeys commands Best Verbal Response: (V5) oriented [place] Score: 15 Cough lasting greater than 3 [...] Medical History Reviewedyes Electronic Signatures: Adriana Danielle (RN) (Signed 12-Jun-2022 20:57) Authored: Quick Triage, Risk Screens, Chart Review Kane Ventura (EMT-P) (Signed 12-Jun-2022 20:55) Entered: Risk Screens, Pain, Travel History, Chart Review, Scores, Past Medical History Authored: Quick Triage, Risk Screens, Pain, Travel History, Chart Review, Scores, Past Medical History Last Updated: 12-Jun-2022 20:57 by Adriana Danielle (RN) Normal [facility] URINALYSIS WITH CULTURE IF I NDICATEDon 06-12-2022 Appearance (U) HAZY Normal CLEAR [facility] Comment on above: Performed By: #### U ARFX ####[place] [address] Bilirubin Ql (U) MODERATE(2+) Abnormal NEGATIVE [facility] Comment on above: Performed By: #### U ARFX ####[place] [id number] Color (U) Yellow Normal STRAW,YELLOW [facility] Comment on above: Performed By: #### U ARFX ####[place] [id number] Glucose Ql (U) Negative Normal NEGATIVE [facility] Comment on above: Performed By: #### U ARFX ####[place] [id number] Hemoglobin Ql (U) SMALL(1+) Abnormal NEGATIVE [facility] Comment on above: Performed By: #### U ARFX ####[place] [address] Ketones Ql (U) 5(TRACE) Abnormal NEGATIVE [facility] Comment on above: Performed By: #### U ARFX ####[place] [address] Leukocyte esterase Test strip Ql (U) Negative Normal NEGATIVE [facility] Comment on above: Performed By: #### U ARFX ####[place] [address] Nitrite Ql (U) Negative Normal NEGATIVE [facility] Comment on above: Performed By: #### U ARFX ####[place] [address] pH (U) 5.0 [pH] Normal 5.0 - 8.0 [facility] Comment on above: Performed By: #### U ARFX ####[place] [address] Protein Ql (U) >=500(3+) Abnormal NEGATIVE [facility] Comment on above: Performed By: #### U ARFX ####[place] [address] Specific gravity (U) [Rel density] 1.035 Normal 1.005 - 1.035 [facility] Comment on above: Performed By: #### U ARFX ####[place] [address] Urobilinogen (U) [Mass/Vol] 2.0 mg/dL High 0.0 - 1.9 [facility] Comment on above: Result Comment: Due [...] positive urobilinogen. Performed By: #### U ARFX ####[place] [address] Lab Specimen Source Normal [facility] Comment on above: Performed By: #### U ARFX ####[facility] [place] [address] Performed By: #### B HB2 #### [facility] [address] [place] [address] Color (U) Yellow See Below [employer] Work Phone: Comment on above: SOURCE: Reference Ra nge: STRAW,YELLOW Glucose Ql (U) Negative NEGATIVE [employer]ul[employer] Work Phone: Ketones Ql (U) 5(TRACE) Abnormal NEGATIVE PCD Partners[employer] Work Phone: Leukocyte esterase Test strip Ql (U) Negative NEGATIVE [employer] Work Phone: pH (U) 5.0 [pH] 5.0 - 8.0 [employer] Work Phone: Protein (U) [Mass/Vol] >=500(3+) Abnormal NEGATIVE [employer] Work Phone: RBC (U) [#/Vol] SMALL(1+) Abnormal NEGATIVE [employer] Work Phone: Specific gravity (U) [Rel density] 1.035 1 See Below [employer] Work Phone: Comment on above: Reference Range: 1.0 05 - 1.035 URINALYSIS WITH CULTURE IF INDICATED Negative NEGATIVE [employer] Work Phone: URINALYSIS WITH CULTURE IF INDICATED 2.0 mg/dL above high threshold 0.0 - 1.9 [employer] Work Phone: Comment on above: Due to [...] WITH CULTURE IF INDICATED MODERATE(2+) Abnormal NEGATIVE MP-[employer]pul[employer] Work Phone: URINALYSIS WITH CULTURE IF INDICATED HAZY CLEAR MP-UrologytheBench Work Phone: Urinalysis, Microscopicon Urinalysis, Microscopic 1+ NK-Uknsxsu-Fyi land Work Phone: Urinalysis, Microscopic 10 {/HPF} RB-Llprkyv-Ggi land Work Phone: Urinalysis, Microscopic 30 {/HPF} Abnormal 0-5 AF-Dcbtwic-Vhu land Work Phone: Urinalysis, Microscopic 4 {/HPF} 0-5 CK-Tgzesmh-Bjj land Work Phone: Comment on above: SOURCE: Established Visit (Orthopaed ic Surgery)on 04-28-2022 Established Visit (Orthopaedic Surgery) Diagnoses/Problems Assessed Primary osteoarthritis of left knee (715.16) (M17.12) *Orders Primary osteoarthritis of left knee Administered: Triamcinolone Acetonide 40 MG/ML Injection Suspension Physical Therapy - General Referral Evaluation and Treatment Evaluate AND Treat Status: Active Requested for: 28Apr2022 AMA Intake Activity Log Entry by [employer] ACCOUNT (INTRANET) on 2022-04-28 09:40 Status Change [...] of care. This note was generated using The Orange Chef software. It may contain errors in wording, punctuation or spelling. Provider Impressions Flare of left knee pain/OA, multiple falls since last visit. Chief Complaint PATIENT PRESENTS TO OFFICE FOR : F/U OF LEFT KNEE PAIN ONSET: 04/01/22 DOI / DOS: HAS FALLEN SEVERAL TIMES IN PAST FEW WEEKS THE LAST TIME BEING ON 04/24/22 IMPROVED: NO PAIN: 10/10 PAIN MEDS TAKEN: ADVIL ROM: PAINFUL TO [...] 2 falls since ED visit in March,. [facility] referred here. Declines XR today for further [...] Medical History Problems H/O mammogram (V15.89) (Z92.89) [facility] History of Papanicolaou smear (V45.89) (Z98.890) 02/2022- NORMAL. DONE AT [address] [place] [address] History of Influenza vaccination declined (V64.06) (Z28.21) Surgical History Problems History of Colonoscopy 2020- [facility]- NORMAL. REPEAT IN 10 YEARS History of Medial branch block Managed By: Miguel Angleo (Pain Medicine) Bilat L4-S1 MBB History of Oophorectomy [phone] RIGHT Family History Mother Family history of Aneurysm [phone]- Father Family history of Edema 1970 Brother [...] more fall s in the last year [facility] [address] Work Phone: Tobacco use status [facility] a) Yes [facility] Work Phone: Tobacco Screening. Yes [facility] Work Phone: Laboratory - Chemistry and C hemistry - challengeon 04-22-2022 Creatinine (Body fld) [Mass/Vol] 153.6 mg/dL [facility] Work Phone: Comment on above: A urine creatinine r esult >= 20 mg/dL is considered valid without suspicion of dilution. Samples with results below this range will automatically reflex to specific gravity testing to verify specimen integrity. Laboratory - Drug toxicology on 04-22-2022 1-Hydroxymidazolam Confirm (U) [Mass/Vol] <25 Cutoff <25 [facility] Work Phone: 3-Gsedwtvhag-9,5-Dimet hyl-3,3-Diphenylpyrrol idine (EDDP) Confirm (U) [Mass/Vol] <25 Cutoff <25 [facility] Work Phone: Comment on above: The performance [...] (6-HARIKA) Confirm (U) [Mass/Vol] <25 Cutoff <25 [facility] Work Phone: 7-Aminoclonazepam Confirm (U) [Mass/Vol] <25 Cutoff <25 [facility] Work Phone: Alpha hydroxyalprazolam Confirm (U) [Mass/Vol] <25 Cutoff <25 [facility] Work Phone: ALPRAZolam Confirm (U) [Mass/Vol] <25 Cutoff <25 [facility] Work Phone: Amphetamines Screen Ql (U) Negative NEGATIVE [facility] Work Phone: Comment on above: CUTOFF LEVEL: 500 NG /ML Cross-reactivity has been reported with high concentrations of the following drugs: buproprion, chloroquine, chlorpromazine, ephedrine, mephentermine, fenfluramine, phentermine, phenylpropanolamine, pseudoephedrine, and propranolol. Barbiturates Screen Ql (U) Negative NEGATIVE [facility] Work Phone: Comment on above: CUTOFF LEVEL: 200 NG /ML Benzoylecgonine Screen Ql (U) Negative NEGATIVE [facility] Work Phone: Comment on above: CUTOFF LEVEL: 150 NG /ML Cannabinoids Screen Ql (U) Negative NEGATIVE [facility] Work Phone: Comment on above: CUTOFF LEVEL: 50 NG/ ML chlordiazePOXIDE Confirm (U) [Mass/Vol] <25 Cutoff <25 [facility] Work Phone: clonazePAM Confirm (U) [Mass/Vol] <25 Cutoff <25 [facility] Work Phone: Codeine Confirm (U) [Mass/Vol] <50 Cutoff <50 [facility] Work Phone: diazePAM Confirm (U) [Mass/Vol] <25 Cutoff <25 [facility] Work Phone: fentaNYL Confirm (U) [Mass/Vol] <2.[address] [facility] Internal [facility] Work Phone: HYDROcodone Confirm (U) [Mass/Vol] <25 Cutoff <25 [facility] Internal [facility] Work Phone: HYDROmorphone Confirm (U) [Mass/Vol] <25 Cutoff <25 [facility] Work Phone: LORazepam Confirm (U) [Mass/Vol] <25 Cutoff <25 [facility] Internal [facility] Work Phone: Methadone Confirm (U) [Mass/Vol] <25 Cutoff <25 [facility] Work Phone: Midazolam Confirm (U) [Mass/Vol] <25 Cutoff <25 [facility] Work Phone: Morphine Confirm (U) [Mass/Vol] <50 Cutoff <50 [facility] Work Phone: Nordiazepam Confirm (U) [Mass/Vol] <25 Cutoff <25 [facility] Internal [facility] Work Phone: Norfentanyl Confirm (U) [Mass/Vol] <2.5 Cutoff<2.5 [facility] Internal [facility] Work Phone: Comment on above: The [...] Norhydrocodone Confirm (U) [Mass/Vol] <25 Cutoff <25 [facility] Internal [facility] Work Phone: Noroxycodone Confirm (U) [Mass/Vol] <25 Cutoff <25 -[facility] Internal [facility] Work Phone: Nortramadol (U) [Mass/Vol] <50 Cutoff <50 [facility] Internal [facility] Work Phone: Comment on above: The [...] Oxazepam Confirm (U) [Mass/Vol] <25 Cutoff <25 [facility] Work Phone: oxyCODONE Confirm (U) [Mass/Vol] <25 Cutoff <25 [facility] Internal [facility] Work Phone: oxyMORphone Confirm (U) [Mass/Vol] <25 Cutoff <25 [facility] Work Phone: Comment on above: The performance [...] laboratory testing. Phencyclidine Ql (U) Negative NEGATIVE -[facility] Internal [facility] Work Phone: Comment on above: CUTOFF LEVEL: 25 NG/ ML Cross-reactivity has been reported with dextromethorphan. Temazepam Confirm (U) [Mass/Vol] <25 Cutoff <25 [facility] Work Phone: Comment on above: The performance [...] traMADol Confirm (U) [Mass/Vol] <50 Cutoff <50 [facility] Work Phone: Zolpidem (U) [Mass/Vol] <25 Cutoff <25 [facility] Work Phone: No Panel Informationon 04-[address] [facility] Internal [facility] Work Phone: Comment on above: Drug [...] the laboratory medical directors. <25 Cutoff <25 -[facility] Work Phone: Comment on above: [...] (K74.60) she thinks sh has fatty liver Type 2 diabetes mellitus [...] Complete Blood Count + Differential; Status:Active; Requested for:22Jul2022; Perform:Lab Services - Lab To Draw (Blood Test); Due:[id number];Ordered ; For:Cirrhosis of liver; Ordered By:Callie Mcdonough; Comprehensive Metabolic Panel; Status:Active; Requested for:22Jul2022; Perform:Lab Services - Lab To Draw (Blood Test); Due:20Oct2022;Ordered ; For:Cirrhosis of liver; Ordered By:Callie Mcdonough; Ferritin, Serum; Status:Active; Requested for:22Jul2022; Perform:Lab Services - Lab To Draw (Blood Test); Due:20Oct2022;Ordered ; For:Cirrhosis of liver; Ordered By:Callie Mcdonough; Hepatitis Panel, Acute (HCFA); Status:Active; Requested for:22Jul2022; Perform:Lab Services - Lab To Draw (Blood Test); Due:20Oct2022;Ordered ; For:Cirrhosis of liver; Ordered By:Callie Mcdonough; Iron + TIBC, Serum; Status:Active; Requested for:22Jul2022; Perform:Lab Services - Lab To Draw (Blood Test); Due:20Oct2022;Ordered ; For:Cirrhosis of liver; Ordered By:Callie Mcdonough; Lumbar radiculopathy, chronic Renew: Gabapentin 400 MG Oral Capsule; TAKE 1 CAPSULE TWICE DAILY Rx By: Callie Mcdonough; Dispense: 90 Days ; #:180 Capsule; Refill: 0;For: Lumbar radiculopathy, chronic; JOLENE = N; Verified Transmission to [facility]; Msg to Pharmacy: OARRS reviewed, void script 30 days from written date; Last Updated By: System, [employer]iMattermark; 04/22/2022 9:45:02 AM Medication management OPIATE/OPIOID/BENZO [EXTENDED] PRESCRIPTION COMPLIANCE; Status:Resulted - Preliminary; Done: 22Apr2022 10:22AM Performed:[facility]; Due:24Apr2022; Marked Important;Ordered; For:Medication management; Ordered By:Callie Mcdonough; Type 2 diabetes mellitus with hyperglycemia, with long-term current use of insulin Albumin, Urine Spot; Status:Active; Requested for:22Jul2022; Perform:Lab Services - Lab To Draw (Non-Blood Test); Due:20Oct2022;Ordered ; For:Type 2 diabetes mellitus with hyperglycemia, with long-term current use of insulin; Ordered By:Callie Mcdonough; Hemoglobin A1C; Status:Active; Requested for:22Jul2022; Perform:Lab Services - Lab To Draw (Blood Test); Due:[id number];Ordered ; For:Type 2 diabetes mellitus with hyperglycemia, with long-term current use of insulin; Ordered By:Callie Mcdonough; Lipid Panel; Status:Active; Requested for:[id number]; Perform:Lab Services - Lab To Draw (Blood Test); Due:[id number];Ordered ; For:Type 2 diabetes mellitus with hyperglycemia, with long-term current use of insulin; Ordered By:Callie cMdonough; T4 - Free Thyroxine, Serum; Status:Active; Requested for:[id number]; Perform:Lab Services - Lab To Draw (Blood Test); Due:[id number];Ordered ; For:Type 2 diabetes mellitus with hyperglycemia, with long-term current use of insulin; Ordered By:Callie Mcdonough; TSH - Thyroid Stimulating Hormone, Serum; Status:Active; Requested for:[id number]; Perform:Lab Services - Lab To Draw (Blood Test); Due:[id number];Ordered ; For:Type 2 diabetes mellitus with hyperglycemia, with long-term current use of insulin; Ordered By:Callie Mcdonough; Patient Discussion/Summary f/u in 3 mo with labs at [facility] and med check - medicare [...] We d (more content not included)... Normal [facility] Tobacco Screening.on 023 Adult depression screening assessment Yes [facility] Work Phone: Adult depression screening assessment No [facility] Work Phone: Adult depression screening assessment Mild (5-9) [facility] Work Phone: Fall risk assessment b) One or more fall s in the last year [facility] Work Phone: Tobacco use status CPHS a) Yes [facility] Work Phone: Tobacco Screening. Yes [facility] Work Phone: Tobacco Screening. 0-Not at all [facility] Work Phone: Tobacco Screening. 1-Several days [facility] Work Phone: Tobacco Screening. 3-Nearly every day [facility] Work Phone: Tobacco Screening. Not difficult at all [facility] Work Phone: CT C Spine without Contrasto n 04-01-2022 CT Cervical spine WO contrast Normal [facility] Work Phone: CT HEAD WO CONTRASTon 2021 CT HEAD WO CONTRAST Patient Name: JANELLE PICKETT STUDY: CT HEAD WO CONTRAST; 04/01/2022 8:23 am INDICATION: head injury . COMPARISON: None. ACCESSION NUMBER(S): [id number] ORDERING CLINICIAN: BALBIR TAVARES TECHNIQUE: Noncontrast axial [...] fracture. Electronically signed by: HAILEE ALLRED MD [facility] CT Head without Contraston 1 06-02-2021 CT Head limited WO contrast Normal [facility] Work Phone: ELBOW COMPLETE MIN. 3 VIEWSo n 04-01-2022 ELBOW COMPLETE MIN. 3 VIEWS Patient Name: JANELLE PICKETT STUDY: ELBOW COMPLETE MIN 3 VIEWS; Left; 04/01/2022 8:33 am INDICATION: fall with pain . COMPARISON: None. ACCESSION NUMBER(S): [id number] ORDERING CLINICIAN: BALBIR TAVARES FINDINGS: The joint spaces and the bony structures are maintained without acute fracture or dislocation. IMPRESSION: Negative Electronically signed by: HAILEE ALLRED MD [facility] HIP, UNILATERAL W/PELVIS WHE N PERFORMED 2-3 VIEWSon 04-01-2022 HIP, UNILATERAL W/PELVIS WHEN PERFORMED 2-3 VIEWS Patient Name: JANELLE PICKETT STUDY: HIP, UNILATERAL W/PELVIS WHEN PERFORMED 2-3 VIEWS; Left; 04/01/2022 8:33 am INDICATION: fall with pain . COMPARISON: None. 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 No acute fracture or dislocation. Mild degenerative change in both hips with spurring at the superolateral acetabulum. IMPRESSION: No acute findings Electronically signed by: HAILEE ALLRED MD [facility] KNEE CMPLT, 4 OR MORE VIEWSo n 04-01-2022 KNEE CMPLT, 4 OR MORE VIEWS Patient Name: JANELLE PICKETT STUDY: KNEE; COMPLT, 4 OR MORE VIEWS; Left; 04/01/2022 8:33 am INDICATION: fall with pain . COMPARISON: None. ACCESSION NUMBER(S): [id number] ORDERING CLINICIAN: BALBIR TAVARES FINDINGS: There is no acute fracture or dislocation IMPRESSION: Negative Electronically signed by: HAILEE ALLRED MD [facility] Provider Note - ED v3on 03-12 [...] orally 2 times a day Drug Name: loratadine 10 mg oral tablet [...] tablet Inst (more content not included)... Normal [facility] Radiologyon 04-01-2022 XR Elbow 3 Views Normal -[facility] Work Phone: XR Knee 4 Views Normal -[facility] Work Phone: XR Pelvis and Hip - left [address] [facility] Work Phone: Risk Screen - [...] Communicatenone Learning Preferencesaudio Cultural Considerationsnone Developmental Considerationsnone Taoism Considerationsnone Learning Assessment (Other Learner): Learning Assessment [...] an injured [place] at a Tra[place] Center [place] pr[place] no Electronic Signatures: Nicole Schmidt (RN) (Signed 01-Apr-2022 07:58) Authored: Preferred Language, Patient Preferred Pharmacy, Advanced Directives, Family Violence Adult, Learning Assessment (Patient), Learning Assessment (Other Learner), Pressure Injury/TB/Substance, Pressure Injury, CAGE Last Updated: 01-Apr-2022 07:58 by Nicole Schmidt (RN) [facility] Triage - EDon 04-01-2022 Triage - ED Chart Review: ARRIVAL INFORMATION Mode of Arrival: ambulance Agency Name: [place] CHIEF COMPLAINT JANELLE PICKETT is a Female [...] BMI (kg/m2): 40.363 Calculated BSA (m2) 2.09 [place] Coma Scale: Best Eye Response: (E4) spontaneous Best Motor Response: (M6) obeys commands Best Verbal Response: (V5) oriented [place] Score: 15 Allergies: yes Patient has homicidal [...] History Last Updated: 01-Apr-2022 07:59 by Nicole Schmidt (PANDA) Normal [facility] Radiologyon 01-25-2022 XR Thoracic spine AP and Lateral Normal [facility] Work Phone: THORACIC SPINE AP/LATon 01-09 THORACIC SPINE AP/LAT Patient Name: CRAFT, JANELLE STUDY: THORACIC SPINE AP/LAT INDICATION: upper back pain M79.10: Myalgia. COMPARISON: None ACCESSION NUMBER(S): [id number] ORDERING CLINICIAN: KELLY CARRASCO FINDINGS: Moderate multilevel diffuse thoracic degenerative change. Alignment normal. No fracture or lesion. IMPRESSION: Moderate thoracic degenerative changes. No acute findings. Electronically signed by: SHARYN BRUNO MD [facility] Established Visit (Pain Medi cine)on 01-21-2022 [...] SHE WOULD LIKE THE RE[facility]LLS [facility]ENT [facility]. 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 PATIENT STATES THAT SHE HAS [...] LEFT POSTERIOR SHOULDER. Sensory/ Motor: Pins and Driscoll and ALL OVER PER PATIENT. Timing/Duration: Constant [...] of mal (more content not included)... Normal [facility] No Panel Informationon 12-25 Please click on the link to view the study images [facility]: MRI L Spine without Contrast on 11-19-2021 MR Lumbar spine WO contrast Normal -[facility] Work Phone: No Panel Informationon 11-16 [facility] Work [facility]: VASC LAB Venous Duplex Ultra sound for DVTon 10-02-2021 VASC LAB Venous Duplex Ultrasound for DVT [facility] 300 Work Phone: Tobacco Screening.on 022 Tobacco use status CPHS a) Yes [facility] 300 Work Phone: Beta Hydroxybutyrate, Serumo n 09-22-2021 Beta hydroxybutyrate [Mass or moles/Vol] 0.10 mmol/L See Below [facility] Work Phone: Comment on above: Reference Range: 0.0 2 - 0.27 The beta-hydroxybutyrate test performance characteristics have been validated by [facility] laboratory. This test has not been approved by the FDA; however, such approval is not necessary. Complete Blood Count + Diffe franklin 09-22-2021 Basophils/100 WBC (Bld) 0.5 % 0.0 - 2.0 [facility] Work Phone: Erythrocyte distribution width (RBC) [Ratio] 13.9 % See Below [facility] Work Phone: Comment on above: Reference Range: 11. 5 - 14.5 Hematocrit (Bld) [Volume fraction] 37.9 % See Below [facility] Work Phone: Comment on above: Reference Range: 36. 0 - 46.0 Hemoglobin (Bld) [Mass/Vol] 13.4 g/dL See Below [facility] Work Phone: Comment on above: Reference Range: 12. 0 - 16.0 Lymphocytes/100 WBC (Bld) 17.3 % See Below [facility] Work Phone: Comment on above: Reference Range: 13. 0 - 44.0 MCHC (RBC) [Mass/Vol] 35.4 g/dL See Below [facility] 300 Work Phone: Comment on above: Reference Range: 32. 0 - 36.0 MCV (RBC) [Entitic vol] 87 fL 80 - 100 [facility] Work Phone: Monocytes/100 WBC (Bld) 5.7 % 2.0 - 10.0 [facility] Work Phone: Neutrophils/100 WBC (Bld) 76.2 % See Below [facility] Work Phone: Comment on above: Reference Range: 40. 0 - 80.0 Platelets (Bld) [#/Vol] 92 10*3/uL below low threshold 150 - 450 [facility] Work Phone: RBC (Bld) [#/Vol] 4.36 {x10E12/L} See Below [facility] 300 Work Phone: Comment on above: Reference Range: 4.0 0 - 5.20 WBC (Bld) [#/Vol] 8.4 10*3/uL 4.4 - 11.3 [facility] 300 Work Phone: Complete Blood Count + Differential 0.00 {x10E9/L} See Below [facility] Work Phone: Comment on above: Reference Range: 0.0 0 - 0.10 Reference Range: 0.0 0 - 0.70 Complete Blood Count + Differential 0.50 {x10E9/L} See Below [facility] Work Phone: Comment on above: Reference Range: 0.1 0 - 1.00 Complete Blood Count + Differential 1.40 {x10E9/L} See Below [facility] Work Phone: Comment on above: Reference Range: 1.2 0 - 4.80 Complete Blood Count + Differential 6.40 {x10E9/L} See Below [facility] Work Phone: Comment on above: Reference Range: 1.2 0 - 7.70 Percent differential counts (%) should be interpreted in the context of the absolute cell counts (cells/L). Complete Blood Count + Differential 0.3 % 0.0 - 6.0 [facility] Work Phone: Laboratory - Chemistry and C hemistry - challengeon 09-22-2021 Glucose [Mass/Vol] 268 mg/dL above high threshold 74 - 99 [facility] 300 Work Phone: Glucose [Mass/Vol] 309 mg/dL above high threshold 74 - 99 [facility] 300 Work Phone: Base excess Calc (BldV) [Moles/Vol] 2.7 mmol/L -2.0 - 3.0 [facility] 300 Work Phone: CO2 (BldV) [Partial pressure] 36 mm[Hg] below low threshold 41 - 51 [facility] 300 Work Phone: HCO3 (Bld) [Moles/Vol] 26.2 mmol/L above hig h threshold See Below [facility] 300 Work Phone: Comment on above: Reference Range: 22. 0 - 26.0 Oxygen (BldV) [Partial pressure] 48 mm[Hg] above high threshold 35 - 45 [facility] 300 Work Phone: Oxyhemoglobin (BldV) [Mass fraction] 79.0 % above high threshold See Below [facility] 300 Work Phone: Comment on above: Reference Range: 45. 0 - 75.0 pH (BldV) 7.47 [pH] above high threshold See Below [facility] 300 Work Phone: Comment on above: Reference Range: 7.3 3 - 7.43 Albumin BCP dye [Mass/Vol] 2.9 g/dL below low threshold 3.4 - 5.0 [facility] 300 Work Phone: ALP [Catalytic activity/Vol] 125 U/L 33 - 136 [facility] 300 Work Phone: ALT With P-5'-P [Catalytic activity/Vol] 59 U/L above high threshold 7 - 45 [facility] Work Phone: Comment on above: Patients treated wit h Sulfasalazine may generate falsely decreased results for ALT. Anion gap [Moles/Vol] 10 mmol/L 10 - 20 [facility] 300 Work Phone: AST With P-5'-P [Catalytic activity/Vol] 31 U/L 9 - 39 [facility] Work Phone: Bilirubin [Mass/Vol] 0.3 mg/dL 0.0 - 1.2 [facility] 300 Work Phone: Calcium [Mass/Vol] 8.1 mg/dL below low threshold 8.6 - 10.3 [facility] Work Phone: Chloride [Moles/Vol] 99 mmol/L 98 - 107 [facility] 300 Work Phone: CO2 [Moles/Vol] 26 mmol/L 21 - 32 [facility] 300 Work Phone: Creatinine [Mass/Vol] 1.23 mg/dL above high threshold See Below [facility] Work Phone: Comment on above: Reference Range: 0.5 0 - 1.05 Glucose [Mass/Vol] 372 mg/dL above high threshold 74 - 99 [facility] Work Phone: Potassium [Moles/Vol] 3.5 mmol/L 3.5 - 5.3 [facility] 300 Work Phone: Protein [Mass/Vol] 5.2 g/dL below low threshold 6.4 - 8.2 [facility] Work Phone: Sodium [Moles/Vol] 131 mmol/L below low threshold 136 - 145 [facility] Work Phone: Urea nitrogen [Mass/Vol] 25 mg/dL above high threshold 6 - 23 [facility] 300 Work Phone: Magnesium, Serumon 2 Magnesium [Mass/Vol] 1.46 mg/dL below low threshold See Below [facility] 300 Work Phone: Comment on above: Reference Range: 1.6 0 - 2.40 No Panel Informationon 09-22 [email or web address]?[email or web address] [email or web address]?PatientI [id number]&Date=&Time=18%3a04%3 a45%3a00&TestType=ECG &Site=14&OutputType=P DF&Ext=PDF [facility] 300 Work Phone: Please see physicia n note for formal interpretation confirmed by Scribe [facility] 300 Work Phone: Normal [facility] 300 Work Phone: [phone] [facility] 300 Work Phone: [phone] [facility] 300 Work Phone: 210 1 [facility] 300 Work Phone: 160 1 [facility] 300 Work Phone: 226 1 [facility] 300 Work Phone: 13 1 [facility] 300 Work Phone: 29 1 [facility] 300 Work Phone: 26 1 [facility] 300 Work Phone: 43 1 [facility] 300 Work Phone: [phone] [facility] 300 Work Phone: [phone] [facility] 300 Work Phone: [phone] 1 [facility] 300 Work Phone: [phone] 1 [facility] 300 Work Phone: [phone] 1 [facility] 300 Work Phone: 49 {mL/min/1.73m2} Abnormal >90 [facility] 300 Work Phone: Comment on above: CALCULATIONS OF ROXANN MATED GFR ARE PERFORMED USING THE 2020 CKD-EPI STUDY REFIT EQUATION WITHOUT THE RACE VARIABLE FOR THE IDMS-TRACEABLE CREATININE METHODS.https://jasn.asnjournals.org/content//A SN.5024357921 Radiologyon 09-22-2021 XR Chest Single view Normal -[facility] 300 Work Phone: TROPONIN I, HIGH SENSITIVITY on 09-22-2021 Tropinin I.cardiac panel High sensitivity method 24 ng/L above high threshold 0 - 13 [facility] Work Phone: Comment on above: .Less [...] performed using a different testing methodology at [facility] than at other [facility] hospitals. Direct result comparisons should only be made within the same method. Tropinin I.cardiac panel High sensitivity method 24 ng/L above high threshold 0 - 13 [facility] 300 Work Phone: [...] performed using a different testing methodology at [facility] than at other [facility]. Direct result comparisons should only be made within the same method. URINALYSIS WITH CULTURE IF I NDICATEDon 09-22-2021 Color (U) Yellow See Below [facility] 300 Work Phone: Comment on above: Reference Range: STR AW,YELLOW Glucose Ql (U) >=500(3+) Abnormal NEGATIVE [facility] 300 Work Phone: Ketones Ql (U) Negative NEGATIVE [facility] 300 Work Phone: Leukocyte esterase Test strip Ql (U) Negative NEGATIVE [facility] 300 Work Phone: pH (U) 5.0 [pH] 5.0 - 8.0 [facility] 300 Work Phone: Protein (U) [Mass/Vol] 100(2+) Abnormal NEGATIVE [facility] 300 Work Phone: RBC (U) [#/Vol] MODERATE(2+) Abnormal NEGATIVE [facility] 300 Work Phone: Specific gravity (U) [Rel density] 1.015 1 See Below [facility] 300 Work Phone: Comment on above: Reference Range: 1.0 05 - 1.035 URINALYSIS WITH CULTURE IF INDICATED Negative NEGATIVE -[facility] 300 Work Phone: URINALYSIS WITH CULTURE IF INDICATED <2.0 0.0 - 1.9 [facility] 300 Work Phone: URINALYSIS WITH CULTURE IF INDICATED HAZY CLEAR [facility] Work Phone: Urinalysis, Microscopicon Urinalysis, Microscopic 1+ -[facility] 300 Work Phone: Urinalysis, Microscopic PRESENT Abnormal -[facility] 300 Work Phone: Urinalysis, Microscopic 7 {/HPF} -[facility] 300 Work Phone: Urinalysis, Microscopic 4 {/HPF} 0-5 -[facility] 300 Work Phone: Urinalysis, Microscopic None 0-5 -[facility] 300 Work Phone: Vital signson 09-22-2021 Oxygen saturation in Venous blood 88 % above high threshold 45 - 75 -[facility] 300 Work Phone: Tobacco Screening.on 022 Fall risk assessment b) One or more fall s in the last year -[facility] 300 Work Phone: Tobacco use status CPHS a) Yes -[facility] 300 Work Phone: Tobacco Screening.on 022 Fall risk assessment b) One or more fall s in the last year -[facility] 300 Work Phone: Tobacco use status CPHS a) Yes [facility] 300 Work Phone: C Reactive Protein, Serumon 09-10-2021 CRP [Mass/Vol] 0.19 mg/dL [facility] and [facility] 300 Work Phone: Comment on above: REF VALUE< 1.00 Complete Blood Count + Diffe rentialon 09-10-2021 Basophils/100 WBC (Bld) 0.3 % 0.0 - 2.0 [facility] 300 Work Phone: Erythrocyte distribution width (RBC) [Ratio] 14.9 % above high threshold See Below [facility] Work Phone: Comment on above: Reference Range: 11. 5 - 14.5 Hematocrit (Bld) [Volume fraction] 44.1 % See Below [facility] Work Phone: Comment on above: Reference Range: 36. 0 - 46.0 Hemoglobin (Bld) [Mass/Vol] 15.4 g/dL See Below [facility] 300 Work Phone: Comment on above: Reference Range: 12. 0 - 16.0 Lymphocytes/100 WBC (Bld) 31.6 % See Below [facility] Work Phone: Comment on above: Reference Range: 13. 0 - 44.0 MCHC (RBC) [Mass/Vol] 34.9 g/dL See Below [facility] 300 Work Phone: Comment on above: Reference Range: 32. 0 - 36.0 MCV (RBC) [Entitic vol] 89 fL 80 - 100 [facility] Work Phone: Monocytes/100 WBC (Bld) 5.0 % 2.0 - 10.0 [facility] Work Phone: Neutrophils/100 WBC (Bld) 62.4 % See Below [facility] Work Phone: Comment on above: Reference Range: 40. 0 - 80.0 Platelets (Bld) [#/Vol] 150 10*3/uL 150 - 450 [facility] 300 Work Phone: RBC (Bld) [#/Vol] 4.99 {x10E12/L} See Below [facility] 300 Work Phone: Comment on above: Reference Range: 4.0 0 - 5.20 WBC (Bld) [#/Vol] 9.9 10*3/uL 4.4 - 11.3 [facility] and [facility] 300 Work Phone: Complete Blood Count + Differential 0.00 {x10E9/L} See Below [facility] Work Phone: Comment on above: Reference Range: 0.0 0 - 0.10 Complete Blood Count + Differential 0.10 {x10E9/L} See Below [facility] Work Phone: Comment on above: Reference Range: 0.0 0 - 0.70 Complete Blood Count + Differential 0.50 {x10E9/L} See Below [facility] Work Phone: Comment on above: Reference Range: 0.1 0 - 1.00 Complete Blood Count + Differential 3.10 {x10E9/L} See Below [facility] 300 Work Phone: Comment on above: Reference Range: 1.2 0 - 4.80 Complete Blood Count + Differential 6.20 {x10E9/L} See Below [place] 300 Work Phone: Comment on above: Reference Range: 1.2 0 - 7.70 Percent differential counts (%) should be interpreted in the context of the absolute cell counts (cells/L). Complete Blood Count + Differential 0.7 % 0.0 - 6.0 [facility] Work Phone: Complete Blood Count + Differential 0.3 {/100_WBC} [facility] Work Phone: Laboratory - Chemistry and C hemistry - challengeon 09-10-2021 Anion gap [Moles/Vol] 12 mmol/L 10 - 20 [facility] 300 Work Phone: Calcium [Mass/Vol] 9.7 mg/dL 8.6 - 10.3 [facility] 300 Work Phone: Chloride [Moles/Vol] 102 mmol/L 98 - 107 [facility] 300 Work Phone: CO2 [Moles/Vol] 26 mmol/L 21 - 32 [facility] 300 Work Phone: Creatinine [Mass/Vol] 1.24 mg/dL above high threshold See Below [facility] Work Phone: Comment on above: Reference Range: 0.5 0 - 1.05 Glucose [Mass/Vol] 116 mg/dL above high threshold 74 - 99 [facility] Work Phone: Potassium [Moles/Vol] 4.4 mmol/L 3.5 - 5.3 [facility] 300 Work Phone: Sodium [Moles/Vol] 136 mmol/L 136 - 145 [facility] 300 Work Phone: Urea nitrogen [Mass/Vol] 16 mg/dL 6 - 23 [facility] Work Phone: No Panel Informationon 09-10 48 {mL/min/1.73m2} Abnormal >90 [facility] 300 Work Phone: Comment on above: CALCULATIONS OF ROXANN MATED GFR ARE PERFORMED USING THE 2020 CKD-EPI STUDY REFIT EQUATION WITHOUT THE RACE VARIABLE FOR THE IDMS-TRACEABLE CREATININE METHODS.https://jasn.asnjournals.org/content//A SN.7468591009 Sedimentation Rate, Erythroc yteon 09-10-2021 ESR (Bld) [Velocity] 19 mm[facility]h 0 - [facility] Work Phone: Tobacco Screening.on 022 Fall risk assessment a) No falls within the last year [facility] Work Phone: Tobacco use status CPHS a) Yes [facility] Work Phone: Uric Acid, Serumon Urate [Mass/Vol] 6.4 mg/dL 2.3 - 6.7 [facility] 300 Work Phone: Comment on above: Venipuncture immedia tely after or during the administration of Metamizole may lead to falsely low results. Testing should be performed immediately prior to Metamizole dosing. Complete Blood Count + Diffe rentialon 09-01-2021 Basophils/100 WBC (Bld) 1.2 % 0.0 - 2.0 [facility] Work Phone: Erythrocyte distribution width (RBC) [Ratio] 14.3 % See Below [facility] Work Phone: Comment on above: Reference Range: 11. 5 - 14.5 Hematocrit (Bld) [Volume fraction] 41.8 % See Below [facility] Work Phone: Comment on above: Reference Range: 36. 0 - 46.0 Hemoglobin (Bld) [Mass/Vol] 14.1 g/dL See Below [facility] Work Phone: Comment on above: Reference Range: 12. 0 - 16.0 Lymphocytes/100 WBC (Bld) 29.0 % See Below [facility] 300 Work Phone: Comment on above: Reference Range: 13. 0 - 44.0 MCHC (RBC) [Mass/Vol] 33.6 g/dL See Below [facility] 300 Work Phone: Comment on above: Reference Range: 32. 0 - 36.0 MCV (RBC) [Entitic vol] 90 fL 80 - 100 [facility] 300 Work Phone: Monocytes/100 WBC (Bld) 5.3 % 2.0 - 10.0 [facility] 300 Work Phone: Neutrophils/100 WBC (Bld) 63.4 % See Below [facility] 300 Work Phone: Comment on above: Reference Range: 40. 0 - 80.0 Platelets (Bld) [#/Vol] 109 10*3/uL below low threshold 150 - 450 [place] [facility] 300 Work Phone: RBC (Bld) [#/Vol] 4.65 {x10E12/L} See Below [facility] 300 Work Phone: Comment on above: Reference Range: 4.0 0 - 5.20 WBC (Bld) [#/Vol] 8.3 10*3/uL 4.4 - 11.3 [facility] 300 Work Phone: Complete Blood Count + Differential 0.10 {x10E9/L} See Below [facility] 300 Work Phone: Comment on above: Reference Range: 0.0 0 - 0.10 Reference Range: 0.0 0 - 0.70 Complete Blood Count + Differential 0.40 {x10E9/L} See Below [facility] 300 Work Phone: Comment on above: Reference Range: 0.1 0 - 1.00 Complete Blood Count + Differential 2.40 {x10E9/L} See Below [facility] 300 Work Phone: Comment on above: Reference Range: 1.2 0 - 4.80 Complete Blood Count + Differential 5.20 {x10E9/L} See Below [facility] 300 Work Phone: Comment on above: Reference Range: 1.2 0 - 7.70 Percent differential counts (%) should be interpreted in the context of the absolute cell counts (cells/L). Complete Blood Count + Differential 1.1 % 0.0 - 6.0 [facility] 300 Work Phone: Complete Blood Count + Differential 0.1 {/100_WBC} [facility] 300 Work Phone: Creatine Kinase, Levelon CK [Catalytic activity/Vol] 44 U/L 0 - 215 [facility] 300 Work Phone: Cult, Bloodon 09-01-2021 Bacteria identified Cx Nom (Bld) [facility] 300 Work Phone: Cult, Misc + smearon 09-01- 022 Bacteria identified Cx Nom (Unsp spec) Abnormal [facility] 300 Work Phone: Laboratory - Chemistry and C hemistry - challengeon 09-01-2021 Albumin BCP dye [Mass/Vol] 3.7 g/dL 3.4 - 5.0 [facility] 300 Work Phone: ALP [Catalytic activity/Vol] 94 U/L 33 - 136 [facility] 300 Work Phone: ALT With P-5'-P [Catalytic activity/Vol] 13 U/L 7 - 45 [facility] 300 Work Phone: Comment on above: Patients treated wit h Sulfasalazine may generate falsely decreased results for ALT. Anion gap [Moles/Vol] 12 mmol/L 10 - 20 [facility] 300 Work Phone: AST With P-5'-P [Catalytic activity/Vol] 14 U/L 9 - 39 [facility] 300 Work Phone: Bilirubin [Mass/Vol] 0.3 mg/dL 0.0 - 1.2 [facility] 300 Work Phone: Calcium [Mass/Vol] 9.0 mg/dL 8.6 - 10.3 [facility] 300 Work Phone: Chloride [Moles/Vol] 101 mmol/L 98 - 107 [facility] 300 Work Phone: CO2 [Moles/Vol] 25 mmol/L 21 - 32 [facility] 300 Work Phone: Glucose [Mass/Vol] 222 mg/dL above high threshold 74 - 99 [facility] 300 Work Phone: Potassium [Moles/Vol] 4.0 mmol/L 3.5 - 5.3 [facility] 300 Work Phone: Protein [Mass/Vol] 7.0 g/dL 6.4 - 8.2 [facility] 300 Work Phone: Sodium [Moles/Vol] 134 mmol/L below low threshold 136 - 145 [facility] 300 Work Phone: Urea nitrogen [Mass/Vol] 13 mg/dL 6 - 23 [facility] 300 Work Phone: Lactate, Levelon 09-01-2021 Lactate [Moles/Vol] 1.7 mmol/L 0.4 - 2.0 [facility] 300 Work Phone: Comment on above: Venipuncture immedia tely after or during the administration of Metamizole may lead to falsely low results. Testing should be performed immediately prior to Metamizole dosing. Lipase, Serumon 09-01-2021 Lipase [Catalytic activity/Vol] 57 U/L 9 - 82 [facility] 300 Work Phone: Comment on above: Venipuncture immedia tely after or during the administration of Metamizole may lead to falsely low results. Testing should be performed immediately prior to Metamizole dosing. Y-riryow-b-benzoquinone imine (metabolite of Acetaminophen) will generate erroneously low results in samples for patients that have taken toxic doses of acetaminophen. No Panel Informationon 09-01 52 {mL/min/1.73m2} Abnormal >90 [facility] 300 Work Phone: Comment on above: CALCULATIONS OF ROXANN MATED GFR ARE PERFORMED USING THE 2020 CKD-EPI STUDY REFIT EQUATION WITHOUT THE RACE VARIABLE FOR THE IDMS-TRACEABLE CREATININE METHODS.https://jasn.asnjournals.org/content/early/A SN.3387419762 501 {ng/mL_FEU} Abnormal < or = 500 [facility] 300 Work Phone: Comment on above: The [...] PE exclusion.) https://MUSEXPRDWE B 01:8080/musescripts/m useweb.dll?RetrieveTe stByDateTime?PatientI D=[id number]&Date=&Time=17%3a31%3 a55%3a00&TestType=ECG &Site=14&OutputType=P DF&Ext=PDF [facility] 300 Work Phone: Please see physicia n note for formal interpretation confirmed by Scribe [facility] 300 Work Phone: Normal [facility] 300 Work Phone: [phone] [facility] 300 Work Phone: [phone] [facility] 300 Work Phone: [phone] [facility] 300 Work Phone: 143 1 [facility] 300 Work Phone: 217 1 [facility] 300 Work Phone: 14 1 [facility] 300 Work Phone: 44 1 [facility] 300 Work Phone: -[phone] 1 [facility] 300 Work Phone: 41 1 [facility] 300 Work Phone: [phone] [facility] 300 Work Phone: 398 1 [facility] 300 Work Phone: 64 1 [facility] 300 Work Phone: 148 1 [facility] 300 Work Phone: 81 1 [facility] 300 Work Phone: Radiologyon 09-01-2021 XR Knee 4 Views Normal [facility] 300 Work Phone: XR Chest Single view Normal [facility] 300 Work Phone: TROPONIN I, HIGH SENSITIVITY on 09-01-2021 Tropinin I.cardiac panel High sensitivity method 4 ng/L 0 - 13 [facility] 300 Work Phone: [...] performed using a different testing methodology at [facility] than at other [facility]. Direct result comparisons should only be made within the same method. URINALYSIS WITH CULTURE IF I NDICATEDon 09-01-2021 Color (U) Yellow See Below [facility] 300 Work Phone: Comment on above: Reference Range: STR AW,YELLOW Glucose Ql (U) Negative NEGATIVE [facility] 300 Work Phone: Ketones Ql (U) Negative NEGATIVE [facility] 300 Work Phone: Leukocyte esterase Test strip Ql (U) Negative NEGATIVE [facility] 300 Work Phone: pH (U) 6.0 [pH] 5.0 - 8.0 [facility] 300 Work Phone: Protein (U) [Mass/Vol] 100(2+) Abnormal NEGATIVE [facility] 300 Work Phone: RBC (U) [#/Vol] MODERATE(2+) Abnormal NEGATIVE [facility] 300 Work Phone: Specific gravity (U) [Rel density] 1.016 1 See Below [facility] 300 Work Phone: [...] Phone: Urinalysis, Microscopicon Urinalysis, Microscopic 1+ Abnormal [facility] 300 Work Phone: Urinalysis, Microscopic 6 {/HPF} [facility] 300 Work Phone: Urinalysis, Microscopic 21 {/HPF} Abnormal 0-5 [facility] 300 Work Phone: Urinalysis, Microscopic 2 {/HPF} 0-5 [facility] 300 Work Phone: VR Sacroiliac Injectionon Please see OpNote in Notes tab for results. [facility] Radiology Study observation (narrative) [facility] VR Sacroiliac InjectionOrder ed By: Anastasia Peralta on 01-08-2021 [facility] CV IR INJECTION SACROILIACon 12-25-2020 CV IR INJECTION SACROILIAC Please see OpNote in Notes tab for results. Please see OpNote in Notes tab for results. Please see OpNote in Notes tab for results. Normal [facility] VR Sacroiliac InjectionOrder ed By: Ryley Angelo on 11-20-2020 Please see OpNote in Notes tab for results. [facility] CV IR INJECTION SACROILIACon 11-10-2020 CV IR INJECTION SACROILIAC Please see OpNote in Notes tab for results. Please see OpNote in Notes tab for results. Please see OpNote in Notes tab for results. Normal [facility] XR LUMBAR SPINE 2-3 VIEWS (S TANDARD)on [...] iliac arteries. IMPRESSION: No acute osseous abnormality. Qnkm-nw-zvacigno multilevel spondylosis of the lower lumbar spine. [employer] Workstation ID: [id number] Dictated by: TRACY MAYS on TueNov 03, 2020 8:48:09 AM EDT Transcribed by: SHERRY WALLER on TueNov 03, 2020 9:13:09 AM EDT Finalized by: TRACY MAYS on TueNov 03, 2020 9:03:10 PM EDT Normal [facility] Comment on above: Order Comment: Injur y/Trauma or Illness?:Illness/Other How long have you had these symptoms (acute/chronic)?:Acute Reason for exam?:Chronic left-sided low back pain with left-sided sciatica History of cancer?:u Surgeries, chemotherapy, or radiation?:u Type of Exam?:Initial Additional signs and symptoms?:. Basic metabolic 2000 panelOr dered By: Yoshi Mora on 10-22-2020 Anion gap [Moles/Vol] 12 mmol/L 10 - 2 0 mmol/L [facility] Calcium [Mass/Vol] 8.9 mg/dL 8.4 - 10. 2 mg/dL [facility] Chloride [Moles/Vol] 96 mmol/L Low 98 - 10 8 mmol/L [facility] Creatinine [Mass/Vol] 1.50 mg/dL High 0.60 - 1.[address] [facility] GFR/1.73 sq M.predicted CKD-EPI (S/P/Bld) [Vol rate/Area] 37 Low >=60 mL/min/1.73 m2 [facility] Glucose [Mass/Vol] 466 mg/dL Critically high 65 - 9 9 mg/dL [facility] HCO3 [Moles/Vol] 25 mmol/L 21 - 32 mmol/L [facility] Interpretation and review of laboratory results Abnormal [facility] Potassium [Moles/Vol] 4.1 mmol/L 3.5 - 5.1 mmol/L [facility] Sodium [Moles/Vol] 129 mmol/L Low 135 - 145 mmol/L [facility] Urea nitrogen [Mass/Vol] 19 mg/dL 8 - 25 mg/dL [facility] Urea nitrogen/Creatinine [Mass ratio] 12.7 mg/mg [facility] The eGFR should be used for monitoring renal function only and not for medication dosing. [facility] Beta hydroxybutyrate [Moles/ Vol]Ordered By: Yoshi Mora on 10-22-2020 Interpretation and review of laboratory results Normal [facility] Beta-HydroxybutyrateOrdered By: Yoshi Mora on 10-22-2020 Beta hydroxybutyrate [Moles/Vol] 0.1 mmol/L 0.0 - 0.3 mmol/L [facility] CBC WITH AUTO DIFFERENTIALOr dered By: Yoshi Mora on 10-22-2020 Basophils (Bld) [#/Vol] 0.01 10*3/uL [facility] Basophils/100 WBC (Bld) 0.1 % [facility] Eosinophils (Bld) [#/Vol] 0.02 10*3/uL [facility] Eosinophils/100 WBC (Bld) 0.2 % [facility] Erythrocyte distribution width (RBC) [Entitic vol] 13.0 % 11.6 - 14.8 % [facility] Hematocrit (Bld) [Volume fraction] 42.8 % 36.0 - 46.0 % [facility] Hemoglobin (Bld) [Mass/Vol] 15.2 g/dL 12.0 - 16.0 g/dL [facility] Immature granulocytes (Bld) [#/Vol] 0.05 10*3/uL [facility] Immature granulocytes/100 WBC (Bld) 0.50 % [facility] Comment on above: The IG parameter is the percentage of metamyelocytes, myelocytes and promyelocytes. An immature granulocyte count (IG) of 1% or more suggests the possibility of infection, an IG count of 3% is very likely related to an infection. Interpretation and review of laboratory results Abnormal [facility] Lymphocytes (Bld) [#/Vol] 1.77 10*3/uL [facility] Lymphocytes/100 WBC (Bld) 18.7 % [facility] MCH (RBC) [Entitic mass] 30.1 pg 26.0 - 34.0 pg [facility] MCHC (RBC) [Mass/Vol] 35.5 g/dL 31.0 - 37.0 g/dL [facility] MCV (RBC) [Entitic vol] 84.8 fL 80.0 - 100.0 fL [facility] Monocytes (Bld) [#/Vol] 0.30 10*3/uL [facility] Monocytes/100 WBC (Bld) 3.2 % [facility] Neutrophils (Bld) [#/Vol] 7.34 10*3/uL High [facility] Neutrophils/100 WBC (Bld) 77.3 % [facility] Platelet mean volume (Bld) [Entitic vol] 10.7 fL 9.4 - 12.4 fL [facility] Platelets (Bld) [#/Vol] 105 10*3/uL Low [facility] RBC (Bld) [#/Vol] 5.05 10*6/uL [facility] WBC (Bld) [#/Vol] 9.49 10*3/uL [facility] CT ABDOMEN PELVIS WITHOUT CO NTRASTon 10-22-2020 [...] Colonic diverticulosis without evidence of acute diverticulitis. [employer] Workstation ID: [id number] Dictated by: TANVI RAMÍREZ on TueOct 22, 2020 1:56:51 PM EDT Transcribed by: EMILIA YOUNG on TueOct 22, 2020 2:20:02 PM EDT Finalized by: TANVI RAMÍREZ on TueOct 22, 2020 2:22:11 PM EDT Normal [facility] Comment on above: Order Comment: Injur [...] Colonic diverticulosis without evidence of acute diverticulitis. [employer] Workstation ID: [id number] [facility] EXAMINATION: CT ABDOMEN PELVIS WITHOUT CONTRAST HISTORY: [...] No acute or aggressive appearing bony lesions. [facility] 2:24 PM EDT EXAMINATION: CT [...] Colonic diverticulosis without evidence of acute diverticulitis. [facility]/[employer] Workstation ID: [id number] [facility] Glucose (Bld) [Mass/Vol]Orde red By: Yoshi Mora on 10-22-2020 Glucose [Mass/Vol] 381 mg/dL Abnormal 65 - 99 mg/dL [facility] Interpretation and review of laboratory results Abnormal [facility] Glucose [Mass/Vol] 461 mg/dL Abnormal 65 - 99 mg/dL [facility] Interpretation and review of laboratory results Abnormal [facility] Glucose (Bld) [Mass/Vol]Orde red By: [facility] on 10-22-2020 Glucose [Mass/Vol] 381 mg/dL High 65 - 99 mg/dL [facility] Interpretation and review of laboratory results Abnormal [facility] Glucose [Mass/Vol] 461 mg/dL Critically high 65 - 9 9 mg/dL [facility] Interpretation and review of laboratory results Abnormal [facility] Critical result acte d upon time of test. Test performed at bedside. [facility] Hepatic function 2000 panelO rdered By: Yoshi Mora on 10-22-2020 Albumin [Mass/Vol] 3.5 g/dL 3.2 - 5.2 g/dL [facility] ALP [Catalytic activity/Vol] 113 U/L 40 - 150 U/L [facility] ALT [Catalytic activity/Vol] 23 U/L 14 - 65 U/L [facility] AST [Catalytic activity/Vol] 12 U/L 0 - 45 U/L [facility] Bilirubin [Mass/Vol] 0.3 mg/dL 0.0 - 1 .3 mg/dL [facility] Bilirubin.conjugated [Mass/Vol] mg/dL 0.0 - 0.4 mg/dL [facility] Interpretation and review of laboratory results Abnormal [facility] Protein [Mass/Vol] 8.3 g/dL High 6.0 - 8.0 g/dL [facility] No Panel InformationOrdered By: Yoshi Mora on 10-22-2020 [facility] Obtain venous blood gases an d performOrdered By: Yoshi Mora on 10-22-2020 [facility] POC Venous Blood GasesOrdere d By: [facility] on 10-22-2020 Base Excess, Dhruv 0 [facility] CO2 (BldV) [Partial pressure] 43.3 mm[Hg] [facility] HCO3 (Bld) [Moles/Vol] 25.1 mmol/L 24.0 - 28.0 mmol/L [facility] Hematocrit (Bld) [Volume fraction] 46 % 36 - 46 % [facility] Hemoglobin (Bld) [Mass/Vol] 15.6 g/dL 12.0 - 16.0 g/dL [facility] Interpretation and review of laboratory results Normal [facility] Oxygen (BldV) [Partial pressure] 37 mm[Hg] [facility] Oxygen saturation in Venous blood 68.0 % 40.0 - 70.0 % [facility] pH (BldV) 7.37 [pH] [facility] URINALYSISOrdered By: Fabian Mora on 10-22-2020 Bacteria Auto Ql (U) Rare Abnormal None Se en /hpf [facility] Clarity Refractometry automated (U) Clear Clear [facility] Color (U) Yellow Colorless, Yellow [facility] Glucose Auto test strip (U) [Mass/Vol] >=500 Abnormal Negative mg/dL [facility] Ketones (U) [Mass/Vol] Negative Negat abdelrahman mg/dL [facility] Leukocyte esterase Auto test strip Ql (U) Negative Negative [facility] h pH (U) 6.0 [pH] [facility] Specific gravity (U) [Rel density] 1.020 [facility] UrinalysisOrdered By: Fabian Mora on 10-22-2020 Bilirubin Ql (U) Negative Negative [facility] Epithelial cells.squamous Auto (Urine sed) [#/Area] 5 High [facility] Hemoglobin Auto test strip Ql (U) Moderate Abnormal Negative [facility] Interpretation and review of laboratory results Abnormal [facility] Nitrite Auto test strip Ql (U) Negative Negative [facility] Protein (U) [Mass/Vol] 100 mg/dL Abnormal Negat abdelrahman mg/dL [facility] RBC Auto (Urine sed) [#/Area] 3 [facility] Urobilinogen (U) [Mass/Vol] mg/dL <2.0 mg/dL [facility] WBC Auto (Urine sed) [#/Area] 2 [facility] Yeast.budding Computer assisted (U) [#/Area] Few Abnormal None Seen /hpf [facility] Microscopic examination is performed on all urinalysis samples and only positive findings are reported. The test for blood on the chemical analytic portion of urinalysis may also be positive due to hemoglobinuria and myoglobinuria and if red blood cells are present they are quantified by microscopic examination. [facility] COVID-19/INFLUENZA A,B MOLEC ULARon 09-08-2020 SARS-CoV-2 (COVID-19) [...] the following links: For Healthcare Providers: https://www.fda.gov/m edia/847497/download For Patients: https://www.fda.gov/m edia/280768/download [facility] Comment on above: Performed By: #### L [id number] #### [facility] [address] [place], [place] [address] Roby Vee M.D. [id number] XR CHEST PA/APon 09-08-2020 XR CHEST PA/AP [...] bronchitis and bronchiolitis. 2. No airspace consolidation. [employer]/ Workstation ID: [id number] Dictated by: KYM DUENAS on TueSeptember 08, 2020 2:16:49 AM EDT Transcribed by: GAIL CORTEZ on TueSeptember 08, 2020 3:04:37 AM EDT Finalized by: KYM DUENAS on TueSeptember 08, 2020 3:32:59 AM EDT Normal [facility] Comment on above: Order Comment: Injur y/Trauma or Illness?:Illness/Other How long have you had these symptoms (acute/chronic)?:Acute Reason for exam?:cough, fever, Hx copd, htn, smoker History of cancer?:u Surgeries, chemotherapy, or radiation?:u Type of Exam?:Initial Additional signs and symptoms?:none COVID-19, MOLECULARon 2019 SARS-COV-2 RNA (TRINIDAD) Not Detected Normal Not Detecte d [facility] Comment on above: Order Comment: Juliocesar Abdul ph:[phone] Please fax results to : [phone] Result Comment: This test was performed under the FDA's Emergency Use Authorization (EUA). Testing was performed using the Aly SARS-CoV-2 assay on the [employer] Aly 6800 System. This test has not been approved for use in asymptomatic patients and its performance in this patient population has not been evaluated. Negative results do not rule out the presence of SARS-CoV-2/COVID-19. Fact sheets for this EUA can be found at the following links: For Healthcare Providers: https://www.fda.gov/media/647769/download For Patients: https://www.[employer].gov/media/861766/download Performed By: #### L [id number] #### [facility] [address] [place] [address] Alejandro Ho M.D. [id number] CHEST PA AND LATERALon 04-14 CHEST PA AND LATERAL Final ReportAccession No: [id number] Performed: Apr 14 2018 9:12AMExamination: CHEST PA AND LATERALEXAM: CHEST PA AND LATERALREASON FOR EXAM: COPD.TECHNIQUE: Two-view chest.COMPARISON: Chest x-ray dated 05/21/2015.FINDINGS: There is no evidence of lung consolidation, pleural effusions orpneumothorax. Heart size is normal. The mediastinum is within normallimits.Osseous structures are intact.IMPRESSION:No acute process.Interpreting Physician: JENNIE CALERO D.O.Trans: n/a : cc: [facility] CT CHEST LOW DOSE LUNG CA [facility] 11-15-2017 CT CHEST LOW DOSE LUNG CA SCREEN Final ReportAccession No: [id number] Performed: Nov 15 2017 10:52AMExamination: CT CHEST LOW DOSE LUNG CA SCREENEXAM: CT CHEST LOW DOSE LUNG CA SCREENCLINICAL STATEMENT: Heavy smoker.COMPARISON: None.TECHNIQUE: Multiple computerized [facility] utilizing the low-dose lung screening protocol.Dose reduction [...] in 12 months.Interpreting Physician: TITO DELANEY D.O.Trans: gvanho : cc: [facility] Vital Signs Date Time Vital Sign Value Performing Clinician Facility 08-25-2023 09:27-0400 Body mass index (BMI) [Ratio] 41.61 kg/m2 Kelly Carrasco PA-C Work Phone: [facility] 08-25-2023 09:27-0400 Body weight 103.87 kg Kelly Carrasco PA-C Work Phone: [facility] 08-25-2023 09:27-0400 Diastolic blood pressure 84 mm[Hg] Kelly Carrasco PA-C Work Phone: [facility] 08-25-2023 09:27-0400 Heart rate 66 /min Kelly Carrasco PA-C Work Phone: [facility] 08-25-2023 09:27-0400 Systolic blood pressure 173 mm[Hg] Kelly Carrasco PA-C Work Phone: [facility] 07-06-2023 08:51-0400 Body mass index (BMI) [Ratio] 42.52 kg/m2 Kelly Carrasco PA-C Work Phone: [facility] 07-06-2023 08:51-0400 Body weight 106.14 kg Kelly Carrasco PA-C Work Phone: [facility] 07-06-2023 08:51-0400 Diastolic blood pressure 84 mm[Hg] Kelly Carrasco PA-C Work Phone: [facility] 07-06-2023 08:51-0400 Heart rate 62 /min Kelly Carrasco PA-C Work Phone: [facility] 07-06-2023 08:51-0400 Systolic blood pressure 164 mm[Hg] Kelly Carrasco PA-C Work Phone: [facility] 06-12-2023 15:09-0500 Body temperature 96.8 [degF] Fredy Styles MD Work Phone: [facility] 06-12-2023 15:09-0500 Diastolic blood pressure 72 mm[Hg] Fredy Styles MD Work Phone: [facility] 06-12-2023 15:09-0500 Heart rate 64 /min Fredy Styles MD Work Phone: [facility] 06-12-2023 15:09-0500 Respiratory rate 18 /min Fredy Styles MD Work Phone: [facility] 06-12-2023 15:09-0500 SaO2% (BldA) [Mass fraction] 93 % Fredy Styles MD Work Phone: [facility] 06-12-2023 15:09-0500 Systolic blood pressure 131 mm[Hg] Fredy Styles MD Work Phone: [facility] 06-10-2023 08:30-0500 Body height 158 cm Fredy Styles MD Work Phone: [facility] 06-10-2023 08:30-0500 Body mass index (BMI) [Ratio] 41.58 kg/m2 Fredy Styles MD Work Phone: [facility] 06-10-2023 08:30-0500 Body weight 103.8 kg Fredy Styles MD Work Phone: [facility] 06-03-2023 11:54-0500 Diastolic blood pressure 64 mm[Hg] [address] 06-03-2023 11:54-0500 Heart rate 69 /min [address] 06-03-2023 11:54-0500 Respiratory rate 18 /min [address] 06-03-2023 11:54-0500 SaO2% (BldA) [Mass fraction] 92 % [address] 06-03-2023 11:54-0500 Systolic blood pressure 182 mm[Hg] [address] 06-03-2023 11:38-0500 Body temperature 98.2 [degF] [address] 06-03-2023 10:57-0500 Body mass index (BMI) [Ratio] 39.14 kg/m2 [address] 06-03-2023 10:57-0500 Body weight 97.[address] 05-30-2023 22:53-0500 Diastolic blood pressure 58 mm[Hg] Ryan Mehta MD Work Phone: [facility] 05-30-2023 22:53-0500 Heart rate 70 /min Ryan Mehta MD Work Phone: [facility] 05-30-2023 22:53-0500 Respiratory rate 16 /min Ryan Mehta MD Work Phone: [facility] 05-30-2023 22:53-0500 SaO2% (BldA) [Mass fraction] 94 % Ryan Mehta MD Work Phone: [facility] 05-30-2023 22:53-0500 Systolic blood pressure 123 mm[Hg] Ryan Mehta MD Work Phone: [facility] 05-30-2023 22:13-0500 Body height 157.5 cm Ryan Mehta MD Work Phone: [facility] 05-30-2023 22:13-0500 Body mass index (BMI) [Ratio] 39.14 kg/m2 Ryan Mehta MD Work Phone: [facility] 05-30-2023 22:13-0500 Body temperature 97.81 [degF] Ryan Mehta MD Work Phone: [facility] 05-30-2023 22:13-0500 Body weight 97.07 kg Ryan Mehta MD Work Phone: [facility] 05-25-2023 09:18-0500 Body height 157.5 cm Callie Mcdonough PA-C Work Phone: [facility] 05-25-2023 09:18-0500 Body mass index (BMI) [Ratio] 41.7 kg/m2 Callie Mcdonough PA-C Work Phone: [facility] 05-25-2023 09:18-0500 Body weight 103.42 kg Callie Kayeall PA-C Work Phone: [facility] 05-25-2023 09:18-0500 Diastolic blood pressure 76 mm[Hg] Calliepadmini Kayeall PA-C Work Phone: [facility] 05-25-2023 09:18-0500 Heart rate 68 /min Calliepadmini Kayeall PA-C Work Phone: [facility] 05-25-2023 09:18-0500 SaO2% (BldA) [Mass fraction] 93 % Callie Mcdonough PA-C Work Phone: [facility] 05-25-2023 09:18-0500 Systolic blood pressure 134 mm[Hg] Callie Kayeall PA-C Work Phone: [facility] 05-20-2023 10:05-0500 Body mass index (BMI) [Ratio] 40.42 kg/m2 Fredy Styles MD Work Phone: [facility] 05-20-2023 10:05-0500 Body weight 100.25 kg Fredy Styles MD Work Phone: [facility] 04-28-2023 08:36-0500 Body height 157.5 cm Kelly Carrasco PA-C Work Phone: [facility] 04-28-2023 08:36-0500 Body mass index (BMI) [Ratio] 40.42 kg/m2 Kelly Carrasco PA-C Work Phone: [facility] 04-28-2023 08:36-0500 Body weight 100.25 kg Kelly Carrasco PA-C Work Phone: [facility] 04-28-2023 08:36-0500 Diastolic blood pressure 83 mm[Hg] Kelly Carrasco PA-C Work Phone: [facility] 04-28-2023 08:36-0500 Heart rate 67 /min Kelly Carrasco PA-C Work Phone: [facility] 04-28-2023 08:36-0500 Respiratory rate 20 /min Kelly BARKSDALE-C Work Phone: [facility] 04-28-2023 08:36-0500 Systolic blood pressure 138 mm[Hg] Kelly BARKSDALE-C Work Phone: [facility] 04-14-2023 11:06-0500 Body temperature 96.6 [degF] Ryan Mehta MD Work Phone: [facility] 04-14-2023 11:06-0500 Diastolic blood pressure 66 mm[Hg] Ryan Mehta MD Work Phone: [facility] 04-14-2023 11:06-0500 Heart rate 70 /min Ryan Mehta MD Work Phone: [facility] 04-14-2023 11:06-0500 Respiratory rate 18 /min Ryan Mehta MD Work Phone: [facility] 04-14-2023 11:06-0500 SaO2% (BldA) [Mass fraction] 99 % Ryan Mehta MD Work Phone: [facility] 04-14-2023 11:06-0500 Systolic blood pressure 109 mm[Hg] Ryan Mehta MD Work Phone: [facility] 04-13-2023 04:42-0500 Body height 154.9 cm Ryan Mehta MD Work Phone: [facility] 04-13-2023 04:42-0500 Body mass index (BMI) [Ratio] 40.43 kg/m2 Ryan Mehta MD Work Phone: [facility] 04-13-2023 04:42-0500 Body weight 97.07 kg Ryan Mehta MD Work Phone: [facility] 04-05-2023 07:59-0500 Body temperature 97.7 [degF] Balbir Tavares DO Work Phone: [facility] 04-05-2023 07:59-0500 Diastolic blood pressure 82 mm[Hg] Balbir Tavares DO Work Phone: [facility] 04-05-2023 07:59-0500 Heart rate 126 /min Balbir Tavares DO Work Phone: [facility] 04-05-2023 07:59-0500 Respiratory rate 16 /min Balbir Tavares DO Work Phone: [facility] 04-05-2023 07:59-0500 SaO2% (BldA) [Mass fraction] 95 % Balbir Tavares DO Work Phone: [facility] 04-05-2023 07:59-0500 Systolic blood pressure 141 mm[Hg] Balbir Tavares DO Work Phone: [facility] 04-04-2023 08:50-0500 Body height 154.9 cm Balbir Tavares DO Work Phone: [facility] 04-04-2023 08:50-0500 Body mass index (BMI) [Ratio] 40.43 kg/m2 Balbir Tavares DO Work Phone: [facility] 04-04-2023 08:50-0500 Body weight 97.07 kg Balbir Tavares DO Work Phone: [facility] 03-08-2023 08:39-0500 Body height 157.5 cm Callie BARKSDALE-C Work Phone: [facility] 03-08-2023 08:39-0500 Body mass index (BMI) [Ratio] 39.69 kg/m2 Callie Mcdonough PA-C Work Phone: [facility] 03-08-2023 08:39-0500 Body weight 98.43 kg Callie BARKSDALE-C Work Phone: [facility] 03-08-2023 08:39-0500 Diastolic blood pressure 70 mm[Hg] Callie BARKSDALE-C Work Phone: [facility] 03-08-2023 08:39-0500 Heart rate 72 /min Callie Mcdonough PA-C Work Phone: [facility] 03-08-2023 08:39-0500 Systolic blood pressure 150 mm[Hg] Callie Kayeall PA-C Work Phone: [facility] 02-21-2023 10:12-0500 Body height 157.5 cm Callie Mcdonough PA-C Work Phone: [facility] 02-21-2023 10:12-0500 Body mass index (BMI) [Ratio] 42.25 kg/m2 Callie Mcdonough PA-C Work Phone: [facility] 02-21-2023 10:12-0500 Body weight 104.78 kg Callie Mcdonough PA-C Work Phone: [facility] 02-21-2023 10:12-0500 Diastolic blood pressure 75 mm[Hg] Callie Kayeall PA-C Work Phone: [facility] 02-21-2023 10:12-0500 Heart rate 69 /min Callie Mcdonough PA-C Work Phone: [facility] 02-21-2023 10:12-0500 Systolic blood pressure 126 mm[Hg] Callie Mcdonough PA-C Work Phone: [facility] 01-04-2023 08:09-0400 Body mass index (BMI) [Ratio] 39.87 kg/m2 Callie Mcdonough Work Phone: [facility] Work Phone: 01-04-2023 08:09-0400 Body surface area [...] [Ratio] 39.14 kg/m2 Callie Mcdonough Work Phone: [facility] [address] Work Phone: 11-26-2022 08:32-0400 Body surface area Derived from formula 1.97 m2 Callie Mcdonough Work Phone: [facility] 300 Work Phone: 11-26-2022 08:32-0400 Body temperature 96.8 [degF] Callie Mcdonough Work Phone: [facility] 300 Work Phone: 11-26-2022 08:32-0400 Body weight 97.07 kg Callie Mcdonough Work Phone: [facility] 300 Work Phone: 10-18-2022 16:51-0400 Diastolic blood pressure 60 mm[Hg] Callie Mcdonough Other Phone: [facility] 10-18-2022 16:51-0400 Heart rate 67 /min Callie Sahronda Other Phone: [facility] 10-18-2022 16:51-0400 Respiratory rate 17 /min Callie Mcdonough Other Phone: [facility] 10-18-2022 16:51-0400 SaO2% (BldA) [Mass fraction] 95 % Callie Sharonda Other Phone: [facility] 10-18-2022 16:51-0400 Systolic blood pressure 116 mm[Hg] Callie Mcdonough Other Phone: [facility] 10-18-2022 13:41-0400 Body height 157.4 cm Callie Mcdonough Other Phone: [facility] 10-18-2022 13:41-0400 Body temperature 96.62 [degF] Calliepadmini WardLuzerne Other Phone: [facility] 10-18-2022 13:41-0400 Body weight 91.3 kg Callie Sharonda Other Phone: [facility] 10-18-2022 10:54-0400 Body height 157.5 cm Brynn Jose MD Work Phone: [facility] 10-18-2022 10:54-0400 Body mass index (BMI) [Ratio] 38.78 kg/m2 Brynn Jose MD Work Phone: [facility] 10-18-2022 10:54-0400 Body weight 96.16 kg Brynn Jose MD Work Phone: [facility] 10-18-2022 10:54-0400 Diastolic blood pressure 60 mm[Hg] Brynn Jose MD Work Phone: [facility] 10-18-2022 10:54-0400 Heart rate 70 /min Brynn Jose MD Work Phone: [facility] 10-18-2022 10:54-0400 Systolic blood pressure 120 mm[Hg] Brynn Jose MD Work Phone: [facility] 09-17-2022 12:30-0400 Body height 159.8 cm Miguel Angelo MD Work Phone: [facility] 09-17-2022 12:30-0400 Body mass index (BMI) [Ratio] 37.32 kg/m2 Miguel Angelo MD Work Phone: [facility] 09-17-2022 12:30-0400 Body weight 95.3 kg Miguel Angelo MD Work Phone: [facility] 08-18-2022 13:09-0400 Body height 157.48 cm Callie Mcdonough Work Phone: [facility] [place] [facility] Work Phone: 08-18-2022 13:09-0400 Body mass index (BMI) [Ratio] 39.05 kg/m2 Callie Mcdonough Work Phone: [facility] [facility] Work Phone: 08-18-2022 13:09-0400 Body surface area Derived from formula 1.97 m2 Callie Mcdonough Work Phone: [facility] [facility] Work Phone: 08-18-2022 13:09-0400 Body weight 96.84 kg Callie Mcdonough Work Phone: [facility] [facility] Work Phone: 08-04-2022 11:06-0400 [...] 07-23-2022 09:27-0400 Body height 157.48 cm Callie Mcdonough Work Phone: [facility] Work Phone: 07-23-2022 09:27-0400 Body mass index (BMI) [Ratio] 38.64 kg/m2 Callie Kayeall Work Phone: [facility] Work Phone: 07-23-2022 09:27-0400 Body surface area Derived from formula 1.96 m2 Callie Kayeall Work Phone: [facility] Work Phone: 07-23-2022 09:27-0400 Body weight 95.82 kg Callie Kayeall Work Phone: [facility] Work Phone: 07-23-2022 09:27-0400 Diastolic blood pressure 68 mm[Hg] Callie Mcdonough Work Phone: [facility] Work Phone: 07-23-2022 09:27-0400 Heart rate 74 /min Callie Kayeall Work Phone: [facility] Work Phone: 07-23-2022 09:27-0400 Systolic blood pressure 110 mm[Hg] Callie Kayeall Work Phone: [facility] Work Phone: 07-22-2022 08:21-0400 Body height 157.5 cm Callie Sharonda PA-C Work Phone: [facility] 07-22-2022 08:21-0400 Body mass index (BMI) [Ratio] 38.59 kg/m2 Callie Wardenhall PA-C Work Phone: [facility] 07-22-2022 08:21-0400 Body weight 95.71 kg Callie Luzerne PA-C Work Phone: [facility] 07-22-2022 08:21-0400 Diastolic blood pressure 80 mm[Hg] Calliepadmini Kayeall PA-C Work Phone: [facility] 07-22-2022 08:21-0400 Heart rate 110 /min Calliepadmini WardLuzerne PA-C Work Phone: [facility] 07-22-2022 08:21-0400 SaO2% (BldA) [Mass fraction] 97 % Callie Sharonda PA-C Work Phone: [facility] 07-22-2022 08:21-0400 Systolic blood pressure 134 mm[Hg] Calliepadmini Kayeall PA-C Work Phone: [facility] 07-16-2022 09:39-0400 Body height 157.5 cm Nayana Miller CASE MAKER-DEMO COORDINATOR Work Phone: [facility] 07-16-2022 09:39-0400 Body mass index (BMI) [Ratio] 38.41 kg/m2 Nayana Miller CASE MAKER-DEMO COORDINATOR Work Phone: [facility] 07-16-2022 09:39-0400 Body weight 95.25 kg Nayana Miller CASE MAKER-DEMO COORDINATOR Work Phone: [facility] 07-16-2022 09:39-0400 Diastolic blood pressure 76 mm[Hg] Nayana Miller CASE MAKER-DEMO COORDINATOR Work Phone: [facility] 07-16-2022 09:39-0400 Heart rate 80 /min Nayana Miller CASE MAKER-DEMO COORDINATOR Work Phone: [facility] 07-16-2022 09:39-0400 Systolic blood pressure 118 mm[Hg] Nayana Miller CASE MAKER-DEMO COORDINATOR Work Phone: [facility] 07-08-2022 13:16-0400 Body height 157.5 cm Calliepadmini WardSharonda PA-C Work Phone: [facility] 07-08-2022 13:16-0400 Body mass index (BMI) [Ratio] 38.23 kg/m2 Calliepadmini Kayeall PA-C Work Phone: [facility] 07-08-2022 13:16-0400 Body weight 94.8 kg Callie Sharonda PA-C Work Phone: [facility] 07-08-2022 13:16-0400 Diastolic blood pressure 80 mm[Hg] Callie Kayeall PA-C Work Phone: [facility] 07-08-2022 13:16-0400 Heart rate 80 /min Callie Kayeall PA-C Work Phone: [facility] 07-08-2022 13:16-0400 Systolic blood pressure 136 mm[Hg] Callie Kayeall PA-C Work Phone: [facility] 07-05-2022 09:30-0400 Body mass index (BMI) [Ratio] 41.15 kg/m2 Callie Mcdonough Work Phone: [facility] Work Phone: 07-05-2022 09:30-0400 Body surface area Derived from formula 2.01 m2 Callie Mcdonough Work Phone: [facility] Work Phone: 07-05-2022 09:30-0400 Body weight 102.06 kg Callie Mcdonough Work Phone: [facility] Work Phone: 07-05-2022 09:30-0400 Respiratory rate 20 /min Callie Mcdonough Work Phone: [facility] Work Phone: 06-13-2022 02:23-0500 Diastolic blood pressure 82 mm[Hg] Callie Mcdonough Other Phone: [facility] 06-13-2022 02:23-0500 Heart rate 70 /min Callie Sharonda Other Phone: [facility] 06-13-2022 02:23-0500 Respiratory rate 14 /min Callie Luzerne Other Phone: [facility] 06-13-2022 02:23-0500 SaO2% (BldA) [Mass fraction] 96 % Callie Mcdonough Other Phone: [facility] 06-13-2022 02:23-0500 Systolic blood pressure 149 mm[Hg] Callie Mcdonough Other Phone: [facility] 04-28-2022 08:53-0500 Body height 157.48 cm Callie Mcdonough Work Phone: [facility] 300 Work Phone: 04-28-2022 08:53-0500 Body mass index (BMI) [Ratio] 41.15 kg/m2 Callie Mcdonough Work Phone: [facility] Work Phone: 04-28-2022 08:53-0500 Body surface area Derived from formula 2.01 m2 Callie Mcdonough Work Phone: [facility] Work Phone: 04-28-2022 08:53-0500 Body temperature 97.1 [degF] Callie Mcdonough Work Phone: [facility] Work Phone: 04-28-2022 08:53-0500 Body weight 102.06 kg Callie Mcdonough Work Phone: [facility] Work Phone: 04-22-2022 08:33-0500 Body height 157.48 cm Callie Mcdonough Work Phone: [facility] Work Phone: 04-22-2022 08:33-0500 Body mass index (BMI) [Ratio] 41.15 kg/m2 Callie Kayeall Work Phone: [facility] Work Phone: 04-22-2022 08:33-0500 Body surface area Derived from formula 2.01 m2 Callie Mcdonough Work Phone: [facility] Work Phone: 04-22-2022 08:33-0500 Body weight 102.06 kg Callie Mcdonough Work Phone: [facility] Work Phone: 04-22-2022 08:33-0500 Diastolic blood pressure 72 mm[Hg] Callie Mcdonough Work Phone: [facility] Work Phone: 04-22-2022 08:33-0500 Heart rate 84 /min Callie Mcdonough Work Phone: [facility] Work Phone: 04-22-2022 08:33-0500 SaO2% (BldA) [Mass fraction] 96 % Callie Mcdonough Work Phone: [facility] Work Phone: 04-22-2022 08:33-0500 Systolic blood pressure 130 mm[Hg] Callie Mcdonough Work Phone: [facility] Work Phone: 04-22-2022 08:33-0500 8 1 Callie Mcdonough Work Phone: [facility] Work Phone: Comment on above: [id number] TS 04-01-2022 11:15-0500 Diastolic blood pressure 77 mm[Hg] [facility] 11:15-0500 Heart rate 78 /[facility] 04-01-2022 11:15-0500 Respiratory rate 16 /min [facility] 04-01-2022 11:15-0500 SaO2% (BldA) [Mass fraction] 95 % [facility] 04-01-2022 11:15-0500 Systolic blood pressure 155 mm[Hg] [facility] 04-01-2022 09:51-0500 Body height 157.4 cm [facility] 04-01-2022 09:51-0500 Body temperature 97.7 [degF] [facility] 04-01-2022 09:51-0500 Body weight 100 kg [facility] 01-21-2022 09:26-0400 Body height 157.48 cm [...] Body height 157.48 cm No PCP None [facility] 300 Work Phone: 09-29-2021 09:34-0400 Body mass index (BMI) [Ratio] 38.59 kg/m2 No PCP None [facility] 300 Work Phone: 09-29-2021 09:34-0400 Body surface area Derived from formula 1.96 m2 No PCP None [facility] 300 Work Phone: 09-29-2021 09:34-0400 Body temperature 97.1 [degF] No PCP None [facility] 300 Work Phone: 09-29-2021 09:34-0400 Body weight 95.71 kg No PCP None [facility] 300 Work Phone: 09-22-2021 21:55-0400 Diastolic blood pressure 49 mm[Hg] No Pcp Required [facility] 09-22-2021 21:55-0400 Heart rate 78 /min No Pcp Required [facility] 09-22-2021 21:55-0400 Respiratory rate 18 /min No Pcp Required [facility] 09-22-2021 21:55-0400 SaO2% (BldA) [Mass fraction] 99 % No Pcp Required [facility] 09-22-2021 21:55-0400 Systolic blood pressure 149 mm[Hg] No Pcp Required [facility] 09-22-2021 19:29-0400 Body height 157.4 cm No Pcp Required [facility] 09-22-2021 19:29-0400 Body temperature 97.16 [degF] No Pcp Required [facility] 09-22-2021 19:29-0400 Body weight 96.4 kg No Pcp Required [facility] 09-22-2021 18:26-0400 Body temperature 37.0 {degrees_C} No PCP None [facility] 300 Work Phone: Comment on above: NOTE: PATIENT RESULTS ARE NOT CORRECTED FOR TEMPERATURE. 09-17-2021 10:04-0400 Body height 157.48 cm No PCP None -[facility] 300 Work Phone: 09-17-2021 10:04-0400 Body mass index (BMI) [Ratio] 38.66 kg/m2 No PCP None -[facility] 300 Work Phone: 09-17-2021 10:04-0400 Body surface area Derived from formula 1.96 m2 No PCP None [facility] 300 Work Phone: 09-17-2021 10:04-0400 Body temperature 97.3 [degF] No PCP None -[facility] 300 Work Phone: 09-17-2021 10:04-040 Body weight 95.88 kg No PCP None -[facility] 300 Work Phone: 09-11-2021 10:18-0400 Body height 157.48 cm No PCP None -[facility] 300 Work Phone: 09-10-2021 10:36-0400 Body height 157.48 cm No PCP None -[facility] 300 Work Phone: 09-10-2021 10:36-0400 Body mass index (BMI) [Ratio] 38.78 kg/m2 No PCP None -[facility] 300 Work Phone: 09-10-2021 10:36-0400 Body surface area Derived from formula 1.96 m2 No PCP None [facility] 300 Work Phone: 09-10-2021 10:36-0400 Body temperature 97.3 [degF] No PCP None [facility] Work Phone: 09-10-2021 10:36-0400 Body weight 96.16 kg No PCP None [facility] 300 Work Phone: 09-03-2021 22:29-0400 Diastolic blood pressure 87 mm[Hg] No Pcp Required [facility] 09-03-2021 22:29-0400 Heart rate 80 /min No Pcp Required [facility] 09-03-2021 22:29-0400 Respiratory rate 18 /min No Pcp Required [facility] 09-03-2021 22:29-0400 SaO2% (BldA) [Mass fraction] 96 % No Pcp Required [facility] 09-03-2021 22:29-0400 Systolic blood pressure 126 mm[Hg] No Pcp Required [facility] 09-03-2021 21:39-0400 Body height 157.4 cm No Pcp Required [facility] 09-03-2021 21:39-0400 Body temperature 98.06 [degF] No Pcp Required [facility] 09-03-2021 21:39-0400 Body weight 105 kg No Pcp Required [facility] 09-01-2021 22:53-0400 Diastolic blood pressure 80 mm[Hg] No Pcp Required [facility] 09-01-2021 22:53-0400 Heart rate 84 /min No Pcp Required [facility] 09-01-2021 22:53-0400 Respiratory rate 20 /min No Pcp Required [facility] 09-01-2021 22:53-0400 SaO2% (BldA) [Mass fraction] 96 % No Pcp Required [facility] 09-01-2021 22:53-0400 Systolic blood pressure 157 mm[Hg] No Pcp Required [facility] 09-01-2021 19:36-0400 Body height 157.4 cm No Pcp Required [facility] 09-01-2021 19:36-0400 Body temperature 98.06 [degF] No Pcp Required [facility] 09-01-2021 19:36-0400 Body weight 99.5 kg No Pcp Required [facility] 09-01-2021 17:42-0400 Body height 157.4 cm No Pcp Required [facility] 09-01-2021 17:42-0400 Body temperature 98.06 [degF] No Pcp Required [facility] 09-01-2021 17:42-0400 Diastolic blood pressure 82 mm[Hg] No Pcp Required [facility] 09-01-2021 17:42-0400 Heart rate 84 /min No Pcp Required [facility] 09-01-2021 17:42-0400 Respiratory rate 16 /min No Pcp Required [facility] 09-01-2021 17:42-0400 SaO2% (BldA) [Mass fraction] 96 % No Pcp Required [facility] 09-01-2021 17:42-0400 Systolic blood pressure 152 mm[Hg] No Pcp Required [facility] 07-07-2021 22:30-0400 Diastolic blood pressure 63 mm[Hg] No Pcp Required [facility] 07-07-2021 22:30-0400 Heart rate 78 /min No Pcp Required [facility] 07-07-2021 22:30-0400 Respiratory rate 20 /min No Pcp Required [facility] 07-07-2021 22:30-0400 SaO2% (BldA) [Mass fraction] 96 % No Pcp Required [facility] 07-07-2021 22:30-0400 Systolic blood pressure 150 mm[Hg] No Pcp Required [facility] 07-07-2021 21:30-0400 Body temperature 98.6 [degF] No Pcp Required [facility] 07-07-2021 20:06-0400 Body height 157.4 cm No Pcp Required [facility] 07-07-2021 20:06-0400 Body weight 94.5 kg No Pcp Required [facility] 01-08-2021 10:02-0400 Body temperature 98.1 [degF] Bob Hunt MD Work Phone: [facility] 01-08-2021 10:02-0400 Diastolic blood pressure 79 mm[Hg] Bob Hunt MD Work Phone: [facility] 01-08-2021 10:02-0400 Heart rate 76 /min Bob Hunt MD Work Phone: [facility] 01-08-2021 10:02-0400 Respiratory rate 16 /min Bob Hunt MD Work Phone: [facility] 01-08-2021 10:02-0400 SaO2% (BldA) [Mass fraction] 97 % Bob Hunt MD Work Phone: [facility] 01-08-2021 10:02-0400 Systolic blood pressure 123 mm[Hg] Bob Hunt MD Work Phone: [facility] 01-08-2021 08:34-0400 Body height 157.5 cm Bob Hunt MD Work Phone: [facility] 01-08-2021 08:34-0400 Body mass index (BMI) [Ratio] 40.24 kg/m2 Bob Hunt MD Work Phone: [facility] 01-08-2021 08:34-0400 Body weight 99.79 kg Bob Hunt MD Work Phone: [facility] 11-20-2020 09:17-0400 Diastolic blood pressure 90 mm[Hg] Bob Hunt MD Work Phone: [facility] 11-20-2020 09:17-0400 Heart rate 85 /min Bob Hunt MD Work Phone: [facility] 11-20-2020 09:17-0400 SaO2% (BldA) [Mass fraction] 96 % Bob Hunt MD Work Phone: [facility] 11-20-2020 09:17-0400 Systolic blood pressure 170 mm[Hg] Bob Hunt MD Work Phone: [facility] 11-20-2020 08:59-0400 Respiratory rate 17 /min Bob Hunt MD Work Phone: [facility] 11-20-2020 07:43-0400 Body height 157.5 cm Bob Hunt MD Work Phone: [facility] 11-20-2020 07:43-0400 Body mass index (BMI) [Ratio] 40.06 kg/m2 Bob Hunt MD Work Phone: [facility] 11-20-2020 07:43-0400 Body temperature 97.81 [degF] Bob Hunt MD Work Phone: [facility] 11-20-2020 07:43-0400 Body weight 99.34 kg Bob Hunt MD Work Phone: [facility] 11-07-2020 08:22-0400 Diastolic blood pressure 82 mm[Hg] Ryley Angelo PA-C Work Phone: [facility] 11-07-2020 08:22-0400 Heart rate 84 /min Ryley Angelo PA-C Work Phone: [facility] 11-07-2020 08:22-0400 Respiratory rate 16 /min Ryley Angelo PA-C Work Phone: [facility] 11-07-2020 08:22-0400 SaO2% (BldA) [Mass fraction] 98 % Ryley Angelo PA-C Work Phone: [facility] 11-07-2020 08:22-0400 Systolic blood pressure 148 mm[Hg] Ryley Angelo PA-C Work Phone: [facility] 10-22-2020 15:15-0400 Diastolic blood pressure 66 mm[Hg] Yoshi [place] DO Work Phone: [facility] 10-22-2020 15:15-0400 SaO2% (BldA) [Mass fraction] 94 % Yoshi [place] DO Work Phone: [facility] 10-22-2020 15:15-0400 Systolic blood pressure 136 mm[Hg] Yoshi [place] DO Work Phone: [facility] 10-22-2020 12:57-0400 Heart rate 81 /min Yoshi [place] DO Work Phone: [facility] 10-22-2020 12:57-0400 Respiratory rate 18 /min Yoshi [place] DO Work Phone: [facility] 10-22-2020 12:24-0400 Body height 157.5 cm Yoshi [employer] DO Work Phone: [facility] 10-22-2020 12:24-0400 Body mass index (BMI) [Ratio] 39.14 kg/m2 Yoshi [employer] DO Work Phone: [facility] 10-22-2020 12:24-0400 Body temperature 98.01 [degF] Yoshi [place] DO Work Phone: [facility] 10-22-2020 12:24-0400 Body weight 97.07 kg Yoshi [email or web address] Work Phone: [facility] Encounters Encounter Date Encounter Type Care Provider Facility Start: 12-29-2023 End: 12-29-2023 ambulatory [facility] Start: 12-25-2023 End: 12-27-2023 Evaluation and management of inpatient [facility] Start: 11-25-2023 End: 11-25-2023 Emergency department patient visit [facility] Start: 11-02-2023 End: 11-02-2023 ambulatory [facility] Start: 10-14-2023 End: 10-14-2023 Emergency department patient visit [facility] Start: 10-11-2023 End: 10-11-2023 Emergency department patient visit [facility] Start: 09-30-2023 End: 09-30-2023 ambulatory KHANH Reyes EMILY [facility] Start: 09-30-2023 End: 09-30-2023 ambulatory SHADIA DALEY [facility] Start: 08-25-2023 End: 08-25-2023 Office outpatient visit 25 minutes Kelly Carrasco PA-C Work Phone: [facility] Comment on above: Lumbar radiculopathy , chronic (Primary Dx); Degenerative lumbar spinal stenosis; Degenerative disc disease at L5-S1 level; Chronic bilateral low back pain, unspecified whether sciatica present; S/P total knee arthroplasty, left Start: 08-25-2023 End: 08-25-2023 ambulatory KELLY CARRASCO [facility] Start: 07-22-2023 End: 07-22-2023 Postop follow up visit related to original px Fredy Styles MD Work Phone: [facility] Comment on above: S/P TKR (total knee replacement), left (Primary Dx) Start: 07-22-2023 End: 07-22-2023 Subsequent hospital visit by physician Mariah Espinosa X-Ray [facility] Comment on above: S/P TKR (total knee replacement), left Start: 07-22-2023 End: 07-22-2023 ambulatory FREDY STYLES [facility] Start: 07-06-2023 End: 07-06-2023 Office outpatient visit 15 minutes Kelly Carrasco PA-C Work Phone: [facility] Comment on above: Degenerative lumbar spinal stenosis (Primary Dx); Lumbar radiculopathy, chronic; Degenerative disc disease at L5-S1 level; S/P total knee arthroplasty, left; Myalgia; Chronic bilateral low back pain, unspecified whether sciatica present Start: 07-06-2023 End: 07-06-2023 ambulatory KELLY CARRASCO [facility] Start: 06-17-2023 End: 06-17-2023 Subsequent hospital visit by physician Mariah Espinosa X-Ray [facility] Comment on above: S/P TKR (total knee replacement), left Start: 06-17-2023 End: 06-17-[address] [facility] Start: 06-17-2023 End: 06-17-2023 Postop follow up visit related to original px Fredy Styles MD Work Phone: [facility] Comment on above: S/P TKR (total knee replacement), left Start: 06-13-2023 End: 07-07-2023 ambulatory FREDY Lemus [facility] Start: 06-10-[address] [facility] Start: 06-10-2023 End: 06-12-2023 Subsequent hospital visit by physician Fredy Styles MD Work Phone: [facility] 3 Comment on above: Arthritis of left kn ee (Primary Dx) Start: 06-07-2023 End: 06-07-2023 ambulatory KELLY [facility] Start: 06-03-2023 End: 06-03-2023 ambulatory KLELY C [facility] Start: 06-03-2023 End: 06-03-2023 Subsequent hospital visit by physician Mariah Sierra C-Arm 2 [facility] Comment on above: Arrived Start: 06-03-2023 End: 06-03-2023 Subsequent hospital visit by physician Barney Prieto MD Work Phone: [facility] [place] Comment on above: Lumbar radiculopathy Start: 05-31-2023 End: 06-01-2023 ambulatory CALLIE MCDONOUGH [facility] Start: 05-31-2023 End: 05-31-[address] [facility] Start: 05-31-2023 End: 05-31-2023 Subsequent hospital visit by physician Mariah Brooks-Ray Fluoro 1 [facility] Comment on above: Primary osteoarthrit is of left knee Left leg swelling; Localized edema Start: 05-30-2023 End: 05-30-2023 Emergency department patient visit Ryan Mehta MD Work Phone: [facility] Comment on above: Left leg pain (Prima ry Dx) Start: 05-30-2023 End: 05-31-2023 ambulatory JEFFERY DUKES [facility] Start: 05-30-2023 End: 05-30-2023 Telemedicine consultation with patient Jeffery Dukes PharmD Work Phone: [facility] Comment on above: Diabetes mellitus wi th stage 3 chronic kidney disease (CMS/HCC) (Primary Dx); Chronic obstructive pulmonary disease with acute exacerbation (CMS/HCC) Start: 05-25-2023 End: 05-25-2023 Assay of hemosiderin, quant Callie Mcdonough PA-C Work Phone: [facility] Work Phone: Start: 05-25-2023 End: 05-25-2023 Patient encounter procedure Callie Mcdonough PA-C Work Phone: [facility] Comment on above: Medicare annual [...] planning/counseling discussion Start: 05-25-2023 End: 05-25-2023 ambulatory [facility] Start: 05-25-2023 End: 05-25-2023 Encounter for general adult medical examination without abnormal findings [facility] Start: 05-20-2023 End: 05-20-2023 Office outpatient visit 25 minutes Fredy Styles MD Work Phone: [facility] Comment on above: Primary osteoarthrit is of left knee (Primary Dx) Start: 05-20-2023 End: 05-20-2023 ambulatory FREDY Lemus [facility] Ambulatory Start: 05-19-2023 End: 05-20-2023 ambulatory CALLIE Jameson [facility] Start: 05-19-2023 End: 05-19-2023 Subsequent hospital visit by physician Rad External Film [facility] Comment on above: Arrived Start: 05-18-2023 End: 05-18-2023 Subsequent hospital visit by physician Mariah Andrews10 [facility] Comment on above: Post-menopausal Encounter for screen ing mammogram for breast cancer Start: 05-18-2023 End: 05-18-2023 ambulatory CALLIE Jameson [facility] Start: 05-13-2023 End: 05-13-2023 ambulatory SHADIA Lemus [facility] Start: 05-13-2023 End: 05-13-2023 Subsequent hospital visit by physician Mariah Mri [facility] Comment on above: Primary osteoarthrit is of left knee Start: 05-09-2023 End: 05-10-2023 ambulatory JEFFERY Davis ROBERT [facility] Start: 05-09-2023 End: 05-09-2023 Telemedicine consultation with patient Jeffery Dukes PharmD Work Phone: [facility] Comment on above: Chronic obstructive pulmonary disease with acute exacerbation (CMS/HCC) (Primary Dx); Diabetes mellitus with stage 3 chronic kidney disease (CMS/HCC) Start: 05-09-2023 End: 05-09-2023 Office outpatient visit 15 minutes Shadia Allan Edi CASE MAKER-DEMO COORDINATOR Work Phone: [facility] Comment on above: Primary osteoarthrit is of left knee (Primary Dx) Start: 05-09-2023 End: 05-09-2023 ambulatory SHADIARACHANA DALEY [facility] Ambulatory Start: 05-02-2023 End: 05-03-2023 ambulatory JEFFERY DUKES [facility] Start: 04-28-2023 End: 04-28-2023 Office outpatient visit 25 minutes Kelly Carrasco PA-C Work Phone: [facility] Comment on above: Lumbar radiculopathy , chronic (Primary Dx); Degenerative lumbar spinal stenosis; Degenerative disc disease at L5-S1 level; Arthritis of facet joint of lumbar spine Start: 04-28-2023 End: 04-28-2023 ambulatory KELLY Monica CARRASCO [facility] Start: 04-20-2023 End: 04-20-2023 Subsequent hospital visit by physician Mariah Flores Cardiac Room [facility] Comment on above: Tachycardia; Heart palpitations; Acquired hypothyroidism Start: 04-20-2023 End: 04-20-2023 ambulatory [facility] Start: 04-18-2023 End: 04-18-2023 ambulatory [facility] Start: 04-13-2023 End: 04-13-2023 Subsequent hospital visit by physician Mariah Romano 1 [facility] Comment on above: Pain of left lower e xtremity; Leg swelling Start: 04-13-2023 End: 04-14-2023 ambulatory [facility] Start: 04-13-2023 End: 04-14-2023 Emergency department patient visit Ryan Mehta MD Work Phone: [facility] 3 Comment on above: Tachycardia (Primary Dx); Postural dizziness with presyncope; Chest pain, unspecified type; Acute pain of left knee; Pain and swelling of left lower leg; Pain in left leg; COPD exacerbation (CMS/HCC); Breast abrasion, left, initial encounter Start: 04-12-2023 End: 04-13-2023 ambulatory SHADIA DALEY [facility] Start: 04-05-2023 End: 05-09-2023 ambulatory BALBIR TAVARES [facility] Start: 04-04-2023 End: 04-04-2023 Subsequent hospital visit by physician Nakita [id number] Cr Nonv1 Bp/Holter/Ecg Resource [facility] Start: 04-04-2023 End: 04-05-2023 ambulatory [facility] Start: 04-04-2023 End: 04-05-2023 Emergency department patient visit Balbir Tavares DO Work Phone: [facility] 3 Comment on above: Acute pain of left k nee (Primary Dx); Tachycardia; Acute bronchitis, unspecified organism Start: 03-28-2023 End: 03-28-2023 Phys/qhp telephone evaluation 21-30 min Callie Mcdonough PA-C Work Phone: [facility] Comment on above: Gastroenteritis ([facility] faviola Dx); Diabetes mellitus with stage 3 chronic kidney disease (CMS/HCC); Calculus of gallbladder with chronic cholecystitis without obstruction; Cirrhosis of liver without ascites, unspecified hepatic cirrhosis type (CMS/HCC) Start: 03-28-2023 End: 03-28-2023 ambulatory [facility] Start: 03-08-2023 End: 03-08-2023 Office outpatient visit 25 minutes Callie Mcdonough PA-C Work Phone: [facility] Comment on above: Chronic obstructive [...] disease (CMS/HCC) Start: 03-08-2023 End: 03-08-2023 ambulatory [facility] Start: 02-21-2023 End: 02-21-2023 Office outpatient visit 25 minutes Callie Mcdonough PA-C Work Phone: [facility] Comment on above: Abdominal wall absce ss (Primary Dx); Low vitamin B12 level; Acute non-recurrent maxillary sinusitis; Vitamin D deficiency; Hypomagnesemia; Acquired hypothyroidism; Hypertension associated with diabetes (CMS/HCC); Class 3 severe obesity due to excess calories with serious comorbidity and body mass index (BMI) of 40.0 to 44.9 in adult (CMS/HCC); Diabetes mellitus with stage 3 chronic kidney disease (CMS/HCC); Gastroesophageal reflux disease without esophagitis; Chronic obstructive pulmonary disease with acute exacerbation ([facility]) Start: 02-21-2023 End: 02-21-[facility] Start: 02-17-2023 End: 02-17-2023 Erroneous Encounter Callie TALAMANTESC Work Phone: [facility] Comment on above: Canceled (Patient) Start: 02-17-2023 ambulatory [facility] Ambulatory Start: 02-07-2023 End: 02-07-2023 ambulatory [facility] Start: 02-07-2023 End: 02-08-2023 ambulatory [facility] Start: 02-07-2023 End: 02-07-2023 Postop follow up visit related to original px Shadia Lemus [place] CASE MAKER-DEMO COORDINATOR Work Phone: [facility] Comment on above: Primary osteoarthrit is of left knee (Primary Dx); Acute pain of left knee Start: 01-31-2023 End: 01-31-2023 ambulatory [facility] Ambulatory Start: 01-26-2023 End: 01-26-2023 Erroneous Encounter Callie TALAMANTESC Work Phone: [facility] Comment on above: Canceled (Other: Err or) Start: 01-26-2023 ambulatory [facility] Ambulatory Start: 01-24-2023 End: 01-24-2023 ambulatory [facility] Start: 01-19-2023 End: 01-19-2023 Phys/qhp telephone evaluation 11-20 min Nayana Miller CASE MAKER-DEMO COORDINATOR Work Phone: [facility] Comment on above: Acute non-recurrent frontal sinusitis (Primary Dx); Acute cough Start: 01-19-2023 End: 01-19-2023 ambulatory NAYANA Thomas MILLER [facility] Ambulatory Start: 01-04-2023 Patient encounter procedure Callie Mcdonough Work Phone: [facility] Work Phone: Start: 01-04-2023 ambulatory PA-C CALLIE MCDONOUGH Facility:[id number] Start: 12-28-2022 Office outpatient vi sit 15 minutes Callie Kayeall Work Phone: [facility] Work Phone: Start: 12-07-2022 AUDIT Callie Quinn elena Work Phone: [facility] Work Phone: Start: 11-26-2022 Office outpatient vi sit 15 minutes Callie Mcdonough Work Phone: [facility] 300 Work Phone: Start: 11-11-2022 AUDIT Callie Wardsavanah parker Work Phone: [facility] Work Phone: Start: 11-04-2022 AUDIT Callie Jameson Kai parker Work Phone: [facility] Work Phone: Start: 10-18-2022 End: 10-18-2022 Emergency department patient visit Davide Mitchell [facility] Emergency 09 Start: 10-18-2022 End: 10-18-2022 Office outpatient visit 40 minutes Brynn Jose MD Work Phone: [facility] Comment on above: Abdominal pain, gene ralized (Primary Dx); Cirrhosis of liver without ascites, unspecified hepatic cirrhosis type (CMS/HCC); Abdominal guarding; Hypertension associated with diabetes (CMS/HCC); Gastroesophageal reflux disease without esophagitis; Calculus of gallbladder with chronic cholecystitis without obstruction; Abdominal pain, acute, right upper quadrant Start: 10-06-2022 AUDIT Callie charltonaminta Work Phone: [facility] Work Phone: Start: 09-17-2022 End: 09-17-2022 ambulatory PA-C CALLIE MCDONOUGH Facility:[id number] Start: 09-17-2022 End: 09-17-2022 Subsequent hospital visit by physician Miguel Angelo MD Work Phone: [facility] Comment on above: Radiculopathy, lumba r region; Spinal stenosis, lumbar region with neurogenic claudication; Low back pain, unspecified; Pain in leg, unspecified; Type 2 diabetes mellitus without complications (CMS/HCC); Tobacco use; long term care pharmacist (current) use of insulin (CMS/HCC); Unspecified cirrhosis of liver (CMS/HCC); Morbid (severe) obesity due to excess calories (CMS/HCC); Body mass index (BMI) 40.0-44.9, adult (CMS/HCC); Chronic obstructive pulmonary disease, unspecified (CMS/HCC); Depression, unspecified; Pain, unspecified Start: 09-14-2022 Telephone encounter Callie jones Work Phone: [facility] Work Phone: Start: 09-09-2022 Chart Update Callie parker Work Phone: [facility] Work Phone: Start: 09-03-2022 ambulatory PA-C CALLIE MCDONOUGH Facility:[id number] Start: 08-20-2022 End: 08-21-2022 ambulatory CALLIE MCDONOUGH [facility] Start: 08-18-2022 Office outpatient ne w 45 minutes Callie Mcdonough Work Phone: [facility] 120 Work Phone: Start: 08-12-2022 Chart Update Callie parker [facility] Phone[facility] Work [facility]: Start: 08-05-2022 ambulatory PA-C CALLIE MCDONOUGH Facility:[id number] Start: 08-04-2022 ambulatory PA-C CALLIE MCDONOUGH Facility:[id number] Start: 07-30-2022 ambulatory PA-C CALLIE MCDONOUGH Facility:[id number] Start: 07-23-2022 Office consultation new/estab patient 60 min Callie Mcdonough Work Phone: [facility] Work Phone: Start: 07-22-2022 End: 07-22-2022 Assay of hemosiderin, quant Callie BARKSDALE-C Work Phone: [facility] Work Phone: Start: 07-22-2022 End: 07-22-2022 Patient encounter procedure Callie TALAMANTESC Work Phone: [facility] Comment on above: Routine general medi jessica examination at [facility] (Primary Dx); Abdominal lymphadenopathy; Acquired hypothyroidism; [...] major, recurrent, moderate (CMS/HCC) Start: 07-20-2022 ambulatory APOLONIA-C CALLIE MCDONOUGH Facility:[id number] Start: 07-16-2022 End: 07-17-2022 ambulatory CALLIE MCDONOUGH [facility] Start: 07-16-2022 End: 07-16-2022 Office outpatient visit 25 minutes Nayana ROE Work Phone: [facility] Comment on above: Gross hematuria ([facility] faviola Dx); Dysuria; Breast cancer screening by mammogram; Post-menopausal; Class 2 severe obesity due to excess calories with serious comorbidity and body mass index (BMI) of 38.0 to 38.9 in adult (CMS/HCC) Start: 07-08-2022 End: 07-08-2022 Office outpatient visit 25 minutes Callie TALAMANTESC Work Phone: [facility] Comment on above: Right upper quadrant abdominal pain (Primary Dx); Chronic constipation; Abnormal biliary HIDA scan; Abdominal lymphadenopathy; Lumbar radiculopathy, chronic; Hypertension, essential; Diabetes mellitus with stage 3 chronic kidney disease (CMS/HCC); Depression, major, recurrent, moderate (CMS/HCC) Start: 07-05-2022 Office outpatient ne w 30 minutes Callie Jameson [place] Work Phone: [facility] Work Phone: Start: 07-03-2022 End: 07-03-2022 Emergency department patient visit MD DAVIDE MITCHELL Facility:[id number] Start: 07-02-2022 ambulatory OLIVIA MCDONOUGH Facility:[id number] Start: 06-12-2022 End: 06-13-2022 Emergency department patient visit Reta Barlow [facility] Emergency 04 Start: 05-13-2022 ambulatory Ms. Shadia Daley Facility:[id number] Start: 05-10-2022 AUDIT Callie Wardsavanah parker Work Phone: [facility] Work Phone: Start: 04-28-2022 Chart Update Callie Wardasvanah parker Work Phone: [facility] Work Phone: Start: 04-28-2022 Patient encounter procedure Callie Jameson [place] Work Phone: [facility] 300 Work Phone: Start: 04-22-2022 Office outpatient ne w 45 minutes Callie Jameson [place] Work Phone: [facility] Work Phone: Start: 04-22-2022 Patient encounter procedure Callie Jameson [place] Work Phone: [facility] Work Phone: Start: 04-01-2022 End: 04-01-2022 Emergency department patient visit Balbir Tavares [facility] Emergency 02 Start: 01-28-2022 Chart Update Ida vogel Work Phone: [facility] Work Phone: Start: 01-25-2022 ambulatory Ms. Kelly Carrasco Facility:[id number] Start: 01-21-2022 Patient encounter procedure No PCP None [facility] Work Phone: Start: 01-21-2022 ambulatory Ms. Kelly Carrasco Facility:[id number] Start: 12-03-2021 FUV, Provider: Kelly Carrasco, Status: Pen, Time: 8:15 AM No PCP None [facility] Work Phone: Start: 12-03-2021 Patient encounter procedure No PCP None [facility] Work Phone: Start: 12-02-2021 Chart Update No PCP None [facility] Work Phone: Start: 11-18-2021 Chart Update No PCP None [facility] Work Phone: Start: 11-12-2021 Patient encounter procedure No PCP None [facility] Work Phone: Start: 10-29-2021 Patient encounter procedure No PCP None [facility] Work Phone: Start: 10-05-2021 Chart Update No PCP None [facility] Work Phone: Start: 10-02-2021 ROSAURADVTUNI, Provider[facility] Status: Pen, Time: 9:00 AM No PCP None [facility] Work Phone: Start: 09-29-2021 Office outpatient vi sit 25 minutes No PCP None [facility] 300 Work Phone: Start: 09-29-2021 Patient encounter procedure No PCP None [facility] 300 Work Phone: Start: 09-22-2021 End: 09-22-2021 Emergency department patient visit Ryan Mehta [facility] Emergency 10 Start: 09-17-2021 Office outpatient vi sit 15 minutes No PCP None [facility] 300 Work Phone: Start: 09-11-2021 JALEESA, Provider : Shadia Daley, Status: Pen, Time: 10:00 AM No PCP None [facility] 300 Work Phone: Start: 09-10-2021 Office outpatient ne w 45 minutes No PCP None [facility] 300 Work Phone: Start: 09-10-2021 Patient encounter procedure No PCP None [facility] 300 Work Phone: Start: 09-03-2021 End: 09-03-2021 Emergency department patient visit Ryan Mehta [facility] Emergency 11 Start: 09-01-2021 End: 09-01-2021 Emergency department patient visit Lakshmi Cortez [facility] Emergency 04 Start: 09-01-2021 End: 09-01-2021 Emergency department patient visit Shannen Whitney [facility] 01 Start: 07-07-2021 End: 07-07-2021 Emergency department patient visit Marty Trini [facility] Emergency 08 Start: 01-15-2021 ambulatory [facility] Ambulatory Start: 01-08-2021 End: 01-08-2021 ambulatory [facility] Start: 01-08-2021 End: 01-08-2021 Subsequent hospital visit by physician Bob Hunt MD Work Phone: [facility] Procedural Care Unit Start: 11-20-2020 End: 11-20-2020 ambulatory [facility] Start: 11-20-2020 End: 11-20-2020 Subsequent hospital visit by physician Bob Hunt MD Work Phone: [facility] Interventional Radiology Start: 11-07-2020 End: 11-07-2020 ambulatory [facility] Ambul[facility] Start: 11-07-2020 End: 11-07-2020 Office outpatient new 45 minutes Ryley Angelo PA-C Work Phone: [facility] Comment on above: 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 (Primary Dx); Chronic left-sided low back pain with left-sided sciatica; Facet arthropathy, lumbar; Lumbar degenerative disc disease Start: 10-31-2020 End: 11-01-2020 ambulatory PROVIDER NOT IN SYSTEM [facility] Start: 10-26-2020 End: 10-26-2020 Emergency department patient visit [facility] Start: 10-22-2020 End: 10-22-2020 Emergency department patient visit [facility] Start: 10-22-2020 End: 10-22-2020 Emergency department patient visit Yoshi Mora DO Work Phone: [facility] Emergency Department Start: 09-08-2020 End: 09-09-2020 ambulatory [facility] Start: 06-10-2020 End: 06-14-2020 Patient encounter procedure PHYSICIAN NEENA [facility] Start: 03-10-2020 End: 03-14-2020 Patient encounter procedure [facility] AlexTeena [facility] Start: 12-05-2019 End: 12-09-2019 [facility] Start: 11-16-2019 End: 11-16-2019 Patient encounter procedure [facility] Start: 08-28-2019 End: 09-01-2019 Patient encounter procedure [facility] Josiah [facility] Start: 07-26-2019 End: 07-30-2019 Patient encounter procedure [facility] Start: 02-08-2019 Patient encounter procedure [facility] Start: 02-06-2019 End: 02-10-2019 Patient encounter procedure FREDY [facility] Start: 04-14-2018 Patient encounter procedure Li Grimaldo [facility] Start: 11-15-2017 Patient encounter procedure Ujwala Pagedar [facility] Start: 07-26-2017 End: 07-26-2017 Emergency department patient visit Malcolm Mayes [facility] Start: 07-08-2017 End: 07-08-2017 Emergency department patient visit Americo Walker [facility] Start: 07-05-2017 End: 07-05-2017 Emergency department patient visit Donaldo Alvarez [facility] Procedures Date Procedure Procedure Detail Performing Clinician Start: 07-22-2023 XR KNEE LEFT 3 VIEWS RA REEMA MCDONOUGH Start: 07-22-2023 Radiologic examinati on knee 3 views Fredy Styles MD Work Phone: Start: 06-17-2023 COMPRESSION STOCKING S 18-30 [facility] NAYANA MILLER Start: 06-17-2023 XR KNEE LEFT 3 VIEWS RA REEMA MCDONOUGH Start: 06-17-2023 Radiologic examinati on knee 3 views Fredy Styles MD Work Phone: Start: 06-12-2023 Glucose quantitative blood xcpt reagent strip Fredy Styles MD Work Phone: Start: 06-12-2023 Glucose quantitative blood xcpt reagent strip Fredy Styles MD Work Phone: Start: 06-12-2023 Basic metabolic pane l calcium total July Trokhimenko CASE MAKER-DEMO COORDINATOR Work Phone: Start: 06-11-2023 Glucose quantitative blood xcpt reagent strip Fredy Styles MD Work Phone: Start: 06-11-2023 Glucose quantitative blood xcpt reagent strip Fredy Styles MD Work Phone: Start: 06-11-2023 Radiologic exam ches t 2 views July Trokhimenko CASE MAKER-DEMO COORDINATOR Work Phone: Start: 06-11-2023 End: 06-11-2023 Basic metabolic panel calcium total July Trokhimenko CASE MAKER-DEMO COORDINATOR Work Phone: Start: 06-11-2023 Glucose quantitative blood [...] XR tomography Unspec ified body region Kelly BARKSDALE-C Work Phone: Start: 06-03-2023 Glucose quantitative blood xcpt reagent strip Barney Prieto MD Work Phone: Start: 05-31-2023 MICROSCOPIC ONLY, URINE CALLIE WARDENHALL Start: 05-31-2023 URINALYSIS WITH REFL EX MICROSCOPIC CALLIEPADMINI WARDSHARONDA Start: 05-31-2023 CBC panel - Blood by Automated count CALLIE SHARONDA Start: 05-31-2023 Comprehensive metabo lic 2000 panel - Serum or Plasma CALLIE WARDENHALL Start: 05-31-2023 TYPE AND SCREEN CALLIE WARDENHALL Start: 05-31-2023 XR CHEST 2 VIEWS CALLIE MCDONOUGH Start: 05-31-2023 VASC US LOWER EXTREM ITY VENOUS DUPLEX LEFT CALLIEPADMINI WARDSHARONDA Start: 05-31-2023 ECG 12-LEAD CALLIE MCCRACKENWili Start: 05-31-2023 Radiologic exam ches t 2 views Fredy Styles MD Work Phone: Start: 05-31-2023 Dup-scan xtr veins unilateral/limited study Ryan Mehta MD Work Phone: Start: 05-31-2023 Ecg routine ecg w/le ast 12 lds trcg only w/o i&r Fredy Styles MD Work Phone: Start: 05-30-2023 FOLLOW UP IN CLINICA L PHARMACY CALLIE MCDONOUGH Start: 05-19-2023 BI TRANSFER OF OUTSI DE FILMS CALLIE MCDONOUGH Start: 05-19-2023 Study Interpretation of outside study Callie Jameson Sharonda BAKER Work Phone: Start: 05-18-2023 DEXA BONE DENSITY MIRANDA MCDONOUGH Start: 05-18-2023 BI MAMMO BILATERAL SCREENING TOMOSYNTHESIS CALLIE SHARONDA Start: 05-18-2023 Dxa bone density fabiana dy 1/> sites axial skel Callie Jameson Sharonda BAKER Work Phone: Start: 05-18-2023 Mammography Callie Driscoll rafaela TALAMANTESC Work Phone: Start: 05-13-2023 MR KNEE LEFT WO IV CONTRAST CALLIE SHARONDA Start: 05-13-2023 Mri any jt lower ext rem w/o contrast matrl Shadia Daley CASE MAKER-DEMO COORDINATOR Work Phone: Start: 05-09-2023 FOLLOW UP IN [facility] D PRIMARY CARE - PHARMACY CALLIE SHARONDA Start: 05-02-2023 AMB REFERRAL TO CLIN ICAL PHARMACY CALLIE HSARONDA Start: 04-20-2023 HOLTER OR EVENT CARD IAC MONITOR CALLIE SHARONDA Start: 04-14-2023 DISCHARGE PATIENT MIRANDA Rasheed SHARONDA Start: 04-14-2023 ADULT DISCHARGE DIET RA BENAVIDEZ SHARONDA Start: 04-14-2023 DISCHARGE ACTIVITY JOSE WOLFF SHARONDA Start: 04-14-2023 NOTIFY PROVIDER (DO NOT PROMPT FOR PARAMETERS) CALLIE SHARONDA Start: 04-14-2023 Glucose quantitative blood xcpt reagent strip Roesndo Gonzalez MD Work Phone: Start: 04-14-2023 Glucose [Mass/volume ] in Serum or Plasma CALLIE SHARONDA Start: 04-14-2023 ECG 12-LEAD CALLIE DRISCOLL KAYKAYWili Start: 04-14-2023 Ecg routine ecg w/le ast [...] in Serum or Plasma CALLIE WARDENHALL Start: 04-13-2023 VASC US LOWER EXTREM ITY VENOUS DUPLEX LEFT CALLIE MCDONOUGH Start: 04-13-2023 TRANSTHORACIC ECHO ( TTE) COMPLETE CALLIE MCDONOUGH Start: 04-13-2023 Glucose quantitative blood xcpt reagent strip Rosendo Gonzalez MD Work Phone: Start: 04-13-2023 Magnesium [Mass/volu me] in Serum or Plasma CALLIE MCDONOUGH Start: 04-13-2023 Phosphate [Mass/volu me] in Serum or Plasma CALLIE WARDENHALL Start: 04-13-2023 THYROXINE, FREE CALLIE MCDONOUGH Start: [...] in Serum or Plasma CALLIE WARDENHALL Start: 04-13-2023 IP CONSULT TO CARDIOLOGY CALLIE WARDENHALL Start: 04-13-2023 TELEMETRY MONITORING RA REEMA MCDONOUGH [...] metabolic pane l calcium total Minna C Mohamed CASE MAKER-DEMO COORDINATOR Work Phone: Start: 04-04-2023 Glucose [Mass/volume ] in Serum or Plasma CALLIE MCDONOUGH Start: 04-04-2023 Glucose quantitative blood xcpt reagent strip Vivian Brice MD Work Phone: Start: 04-04-2023 Glucose [Mass/volume ] in Serum or Plasma CALLIE SHARONDA Start: 04-04-2023 FULL CODE CALLIE RUSSO Start: 04-04-2023 IP CONSULT TO RESPIR ATORY CARE CALLIE MCDONOUGH Start: 04-04-2023 TELEMETRY MONITORING RA REEMA MCDONOUGH Start: 04-04-2023 Glucose quantitative blood xcpt reagent strip Vivian Brice MD Work Phone: Start: 04-04-2023 Bacteria identified in Blood by Culture CALLIE MCDONOUGH Start: 04-04-2023 INITIATE OBSERVATION STATUS CALLIE MCDONOUGH Start: 04-04-2023 ECG 12-LEAD CALLIE RUSSO Start: 04-04-2023 INFLUENZA A AND B PCR R EVANGELISTAWili SHARONDA Start: 04-04-2023 SARS-COV-2 PCR, SYMPTOMATIC CALLIE MCDONOUGH Start: 04-04-2023 ED TO FLOOR BED REQUEST CALLIE MCDONOUGH Start: 04-04-2023 Magnesium [Mass/volu me] in Serum or Plasma CALLIE KAYEALL Start: 04-04-2023 TROPONIN I, HIGH SENSITIVITY CALLIE MCDONOUGH Start: 04-04-2023 TSH WITH REFLEX TO F REE T4 IF ABNORMAL CALLIE MCDONOUGH Start: 04-04-2023 XR KNEE LEFT 4+ VIEWS R AYO MCDONOUGH Start: 04-04-2023 Culture bacterial bl ood aerobic w/id isolates Minna Monica Albert CASE MAKER-DEMO COORDINATOR Work Phone: Start: 04-04-2023 End: 04-04-2023 Ecg routine ecg w/least 12 lds trcg only w/o i&r Balbir Tavares DO Work Phone: Start: 04-04-2023 Influenza virus A an d B RNA [Identifier] in Unspecified specimen by JACKIE with probe detection Balbir Tavares DO Work Phone: Start: 04-04-2023 SARS-CoV-2 (COVID-19 ) RNA [Presence] in Respiratory specimen by JACKIE with probe detection Balbir Tavares DO Work Phone: Start: 04-04-2023 Assay of magnesium Nolvia Tavares DO Work Phone: Start: 04-04-2023 Radiologic exam knee complete 4/more views Balbir Tavares DO Work Phone: Start: 04-04-2023 EXTRA URINE HALEY TUBE R AYO MCDONOUGH Start: 04-04-2023 URINALYSIS MICROSCOP IC WITH REFLEX CULTURE CALLIE MCDONOUGH Start: 04-04-2023 URINALYSIS WITH REFL EX CULTURE AND MICROSCOPIC CALLIE MCDONOUGH Start: 04-04-2023 CT ANGIO CHEST FOR PULMONARY EMBOLISM CALLIE WARDENHALL Start: 04-04-2023 aPTT in Blood by Coagulation assay CALLIE MCDONOUGH Start: 04-04-2023 CBC W Auto Different ial panel - Blood CALLIE WARDENHALL Start: 04-04-2023 Comprehensive metabo lic 2000 panel - Serum or Plasma CALLIE WARDENHALL Start: 04-04-2023 PROTIME-INR CALLIE RUSSO Start: 04-04-2023 [...] aspir &/inj major jt/bursa w/us Shadia Daley CASE MAKER-DEMO COORDINATOR Work Phone: Start: 02-07-2023 POINT OF CARE ULTRAS OUND NO CHARGE NAYANA MILLER Start: 02-07-2023 CBC W Auto Different ial panel - Blood CALLIE MCDONOUGH Start: 02-07-2023 Comprehensive metabo lic 2000 panel - Serum or Plasma CALLIE MCDONOUGH Start: 02-07-2023 Cyanocobalamin vitamin b-12 CALLIE MCDONOUGH Start: 02-07-2023 Hemoglobin A1c/Hemoglobin.total in Blood CALLIE MCDONOUGH Start: 02-07-2023 Lipid panel CALLIE RUSSO Start: 02-07-2023 Magnesium [Mass/volu me] in Serum or Plasma CALLIE MCDONOUGH Start: 02-07-2023 THYROXINE, FREE CALLIE MCDONOUGH Start: 02-07-2023 VITAMIN D 25-HYDROXY,TOTAL CALLIE MCDONOUGH Start: 02-07-2023 Lipid 1996 panel - S batool or Plasma Shadia Daley CASE MAKER-DEMO COORDINATOR Work Phone: Start: 02-07-2023 Thyrotropin [Units/v olume] in Serum or Plasma Shadia Daley CASE MAKER-DEMO COORDINATOR Work Phone: Start: 01-31-2023 LARGE JOINT INJECTION/ARTHROCENTESIS [...] ial panel - Blood CALLIE MCDONOUGH Start: 08-20-2022 Comprehensive metabo lic 2000 panel - Serum or Plasma CALLIE MCDONOUGH Start: 08-20-2022 Cyanocobalamin vitamin b-12 CALLIE MCDONOUGH Start: 08-20-2022 Hemoglobin A1c/Hemoglobin.total in Blood CALLIE MCDONOUGH Start: 08-20-2022 Magnesium [Mass/volu me] in Serum or Plasma CALLIE MCDONOUGH Start: 08-20-2022 VITAMIN D 25-HYDROXY,TOTAL CALLIE MCDONOUGH Start: 08-11-2022 Follow-up visit Start: 07-16-2022 Urnls dip stick/tabl et rgnt auto w/o microscopy Nayana Miller CASE MAKER-DEMO COORDINATOR Work Phone: Start: 07-16-2022 Lipid 1996 panel [...] Start: 07-07-2021 End: 07-07-2021 EKG impression Marty Feliz Start: 01-08-2021 CV IR INJECTION SACROILIAC Ryley Angelo PA-C Work Phone: Start: 11-20-2020 CV IR INJECTION SACROILIAC Ryley Angelo PA-C Work Phone: Start: 10-22-2020 Gluc bld gluc mntr d ev cleared fda spec home use Yoshi Mora DO Work Phone: Start: 10-22-2020 Glucose measurement [facility] Start: 10-22-2020 Ct abdomen & pelvis w/o contrast material Yoshi Mora DO Work Phone: Start: 10-22-2020 End: 10-22-2020 Basic metabolic panel calcium total Yoshi Mora DO Work Phone: Start: 10-22-2020 OBTAIN VENOUS BLOOD GASES AND PERFORM Yoshi Mora DO Work Phone: Start: 10-22-2020 Urnls dip stick/tabl et reagent auto microscopy Yoshi Mora DO Work Phone: Start: 10-22-2020 Glucose measurement [facility] Start: 04-11-2020 Poncho russo PA-C Work Phone: Start: 04-11-2020 Colonoscopy Callie Trino Lemus robert Work Phone: Comment on above: 2020- [facility]- NORMAL. REPEAT IN 10 YEARS; Start: 03-10-2020 Adult depression scr eening assessment Yoshi Mora DO Work Phone: Start: 11-03-2018 Mammography Yoshi Jose Angel brownkevyn DO Work Phone: Start: 05-08-2018 Microalbumin [Mass/v olume] in Urine by Test strip Yoshi Mora Weesh Work Phone: Start: 01-29-2015 Microscopic observat ion [Identifier] in Cervix by Cyto stain Yoshi Mora Weesh Work Phone: Start: 04-11-2014 Oophorectomy Callie Lemus robert Work Phone: Comment on above: - RIGHT; Start: 01-04-2013 Colonoscopy Yoshi brownkevyn DO Work Phone: Dilation and curettage Miranda Mcdonough Work Phone: Laparoscopic cholecystectomy Callie Mcdonough Work Phone: Oophorectomy No PCP None Repair of umbilical hernia R achel Trino Sharonda Work Phone: Plan of Treatment Date Care Activity Detail Author Start: 04-01-2032 DTaP/Tdap/Td Vaccines (2 - Td or Tdap) DTaP/Tdap/Td Vaccines (2 - Td or Tdap) [facility] Start: 04-11-2030 Screening for malignant neoplasm of colon [facility] Start: 05-26-2024 Medicare Annual Wellness Visit Medicare Annual Wellness Visit (AWV) [facility] Start: 05-18-2024 Screening for malignant neoplasm of breast Mammogram [facility] Start: 04-13-2024 Thyroid stimulating hormone measurement TSH Level [facility] Start: 04-04-2024 Thyroid stimulating hormone measurement TSH Level [facility] Start: 02-08-2024 Lipid panel Lipid Panel [facility] Start: 02-08-2024 Thyroid stimulating hormone measurement TSH Level [facility] Start: 12-11-2023 Influenza vaccination Influenza Vaccine (Season Ended) [facility] Start: 09-30-2023 End: 09-30-2023 Patient encounter procedure 09/30/2023 11:00 AM EDT Office Visit [facility] [address] [place] [address] Shadia Daley, CASE MAKER-DEMO COORDINATOR [address] [facility], [address] [place] [address] [facility] Start: 09-08-2023 End: 09-08-2023 Patient encounter procedure 09/08/2023 8:20 AM EDT Office Visit [facility] [address] [place] [id number] Callie Mcdonough, PA-C [address] [place] [address] [facility] Start: 08-23-2023 End: 05-25-2024 25-hydroxyvitamin D3 [Mass/volume] in Serum or Plasma Vitamin D 25-Hydroxy,Total (for eval of Vitamin D levels) Lab Routine Vitamin D deficiency Expected: 08/23/2023 (Approximate), Expires: 05/25/2024 [facility] Work Phone: Comment on above: Expected: 08/23/2023 (Approximate), Expi res: 05/25/2024 Start: 08-23-2023 End: 05-25-2024 CBC W Auto Differential panel - Blood CBC and Auto Differential Lab Routine Diabetes mellitus with stage 3 chronic kidney disease (CMS/HCC) Expected: 08/23/2023 (Approximate), Expires: 05/25/2024 [facility] Work Phone: Comment on above: Expected: 08/23/2023 (Approximate), Expi res: 05/25/2024 Start: 08-23-2023 End: 05-25-2024 Cobalamin (Vitamin B12) [Mass/volume] in Serum or Plasma Vitamin B12 Lab Routine Low vitamin B12 level Expected: 08/23/2023 (Approximate), Expires: 05/25/2024 [facility] Work Phone: Comment on above: Expected: 08/23/2023 (Approximate), Expi res: 05/25/2024 Start: 08-23-2023 End: 05-25-2024 Comprehensive metabolic 2000 panel - Serum or Plasma Comprehensive Metabolic Panel Lab Routine Diabetes mellitus with stage 3 chronic kidney disease (CMS/HCC) Expected: 08/23/2023 (Approximate), Expires: 05/25/2024 [facility] Work Phone: Comment on above: Expected: 08/23/2023 (Approximate), Expi res: 05/25/2024 Start: 08-23-2023 End: 05-25-2024 Hemoglobin A1c/Hemoglobin.total in Blood Hemoglobin A1C Lab Routine Diabetes mellitus with stage 3 chronic kidney disease (CMS/HCC) Expected: 08/23/2023 (Approximate), Expires: 05/25/2024 [facility] Work Phone: Comment on above: Expected: 08/23/2023 (Approximate), Expi res: 05/25/2024 Start: 08-23-2023 End: 05-25-2024 Magnesium [Mass/volume] in Serum or Plasma Magnesium Lab Routine Diabetes mellitus with stage 3 chronic kidney disease (CMS/HCC) Expected: 08/23/2023 (Approximate), Expires: 05/25/2024 [facility] Work Phone: Comment on above: Expected: 08/23/2023 (Approximate), Expi res: 05/25/2024 Start: 08-23-2023 End: 05-25-2024 Microalbumin/Creatinine [Mass Ratio] in Urine Albumin , Urine Random Lab Routine Diabetes mellitus with stage 3 chronic kidney disease (CMS/HCC) Expected: 08/23/2023 (Approximate), Expires: 05/25/2024 [facility] Service Area Work Phone: Comment on above: Expected: 08/23/2023 (Approximate), Expi res: 05/25/2024 Start: 08-23-2023 End: 05-25-2024 Thyrotropin [Units/volume] in Serum or Plasma Thyroid Stimulating Hormone Lab Routine Acquired hypothyroidism Expected: 08/23/2023 (Approximate), Expires: 05/25/2024 [facility] Work Phone: Comment on above: Expected: 08/23/2023 (Approximate), Expi res: 05/25/2024 Start: 08-23-2023 End: 05-25-2024 Thyroxine (T4) free [Mass/volume] in Serum or Plasma Thyroxine, Free Lab Routine Acquired hypothyroidism Expected: 08/23/2023 (Approximate), Expires: 05/25/2024 [facility] Work Phone: Comment on above: Expected: 08/23/2023 (Approximate), Expi res: 05/25/2024 Start: 08-16-2023 End: 08-16-2023 Patient encounter procedure 08/16/2023 9:30 AM EDT Office Visit [facility] Medical Office Building [address] [place] [address] Kelly Carrasco PA-C [address] [place] [address] [facility] Start: 07-24-2023 Medicare Annual Wellness Visit Medicare Annual Wellness Visit (AWV) [facility] Start: 07-22-2023 End: 07-22-2023 Patient encounter procedure 07/22/2023 9:30 AM EDT Office Visit [facility] [address] [place] [phone] Fredy Styles MD [address] [facility], [address] [place] [address] [facility] Start: 07-22-2023 Subsequent hospital visit by physician 07/22/2023 9:01 AM EDT Hospital Encounter [facility] [address] [address] S/P TKR (total knee replacement), left [facility] Comment on above: S/P TKR (total knee replacement), left Start: 07-17-2023 Lipid panel Lipid Panel [facility] Start: 07-17-2023 Thyroid stimulating hormone measurement TSH Level [facility] Start: 07-14-2023 Hemoglobin A1c measurement Diabetes: Hemoglobin A1C [facility] Start: 07-07-2023 End: 07-07-2023 Home visit 07/07/2023 9:30 AM EDT Home Care Visit [facility] [address] [place] [address] Sravanthi Barroso, OT [facility] Start: 07-06-2023 End: 07-06-2023 Patient encounter procedure 07/06/2023 9:15 AM EDT Office Visit [facility] Medical Office Building [address] [place] [address] Kelly Carrasco, PA-C [address] [place] [address] [place] [address] [facility] Start: 07-05-2023 End: 07-05-2023 Home visit 07/05/2023 9:30 AM EDT Home Care Visit [facility] [address] [place] [address] Sravanthi Barroso, OT [facility] Start: 06-30-2023 End: 06-30-2023 Home visit 06/30/2023 11:00 AM EDT Home Care Visit [facility] [address] [place] [address] Sravanthi Barroso, OT [facility] Start: 06-29-2023 End: 06-29-2023 Patient encounter procedure 06/29/2023 11:00 AM EDT Appointment [facility] [address] [place] [address] Janelle Gonzalez, PT [facility] Start: 06-28-2023 End: 06-28-2023 Home visit 06/28/2023 11:00 AM EDT Home Care Visit [facility] [address] [place] [address] Sravanthi Barroso, OT [facility] Start: 06-27-2023 End: 06-27-2023 Home visit 06/27/2023 10:00 AM EDT Home Care Visit [facility] [address] [place] [address] Janelle Gonzalez, PT [facility] Start: 06-23-2023 End: 06-23-2023 Home visit 06/23/2023 11:00 AM EDT Home Care Visit [facility] [address] [place] [address] Sravanthi Barroso, OT [facility] Start: 06-22-2023 End: 06-22-2023 Home visit 06/22/2023 1:00 PM EDT Home Care Visit [facility] [address] [place] [address] Janelle Gonzalez, PT [facility] Start: 06-21-2023 End: 06-21-2023 Home visit 06/21/2023 11:00 AM EDT Home Care Visit [facility] [address] [place] [address] Sravanhti Barroso, OT [facility] Start: 06-20-2023 End: 06-20-2023 Telemedicine consultation with patient [facility] Start: 06-20-2023 End: 06-20-2023 Home visit 06/20/2023 1:00 PM EDT Home Care Visit [facility] [address] [place] [address] Janelle Gonzalez, PT [facility] Start: 06-17-2023 End: 06-17-2023 Patient encounter procedure 06/17/2023 9:00 AM EST Office Visit [facility] [address] [place] [address] Fredy Styles MD [address] [facility], [address] [place] [address] [facility] Start: 06-14-2023 End: 06-13-2024 XR Knee - left 3 Views XR knee left 3 views Imaging Routine S/P TKR (total knee replacement), left Expected: 06/14/2023, Expires: 06/13/2024 [facility] Service Area Work Phone: Comment on above: Expected: 06/14/2023, Expires: Start: 06-14-2023 End: 06-14-2023 Home visit 06/14/2023 9:30 AM EST Home Care Visit [facility] [address] [place] [address] Sravanthi Barroso, OT [facility] Start: 06-12-2023 End: 06-12-2023 Patient encounter procedure 06/12/2023 5:30 PM EST Appointment [facility] [address] [place] [address] Monika Perry, PT [facility] Start: 06-10-2023 End: 06-10-2023 Admission to same day surgery center [facility] [place] Comment on above: Arthroplasty Total Knee [35360 (CPT )] Start: 06-10-2023 End: 06-10-2023 Arthrp kne condyle&platu medial&lat compartments Arthroplasty Resurfacing Total Knee Arthritis of left knee 06/10/2023 12:10 PM EST [facility] Start: 06-10-2023 Subsequent hospital visit by physician [facility] [place] Start: 06-10-2023 End: 06-10-2023 Admission to same day surgery center [facility] [place] Comment on above: Arthroplasty Total Knee [12096 (CPT )] Start: 06-10-2023 End: 06-10-2023 Arthrp kne condyle&platu medial&lat compartments [facility] [place] Start: 06-10-2023 Subsequent hospital visit by physician [facility] [place] Start: 06-03-2023 End: 06-03-2023 Patient encounter procedure 06/03/2023 11:40 AM EST Appointment [facility] [place] [address] [place] [address] Barney Prieto MD [address] [place], [place] [address] [place], [place] [id number] [facility] [place] Start: 05-30-2023 End: 05-30-2023 Telemedicine consultation with patient 05/30/2023 2:30 PM EST Telemedicine [facility] [address] [phone] [facility] Start: 05-25-2023 End: 05-25-2023 Patient encounter procedure 05/25/2023 9:20 AM EST Office Visit [facility] [address] [place] [phone] Callie Mcdonough, PAVasquezC [address] [place] [address] [facility] Start: 05-24-2023 End: 02-22-2024 25-hydroxyvitamin D3 [Mass/volume] in Serum or Plasma Vitamin D 25-Hydroxy,Total (for eval of Vitamin D levels) Lab Routine Vitamin D deficiency Expected: 05/24/2023 (Approximate), Expires: 02/22/2024 [facility] Work Phone: Comment on above: Expected: 05/24/2023 (Approximate), Expi res: 02/22/2024 Start: 05-24-2023 End: 02-22-2024 CBC W Auto Differential panel - Blood CBC and Auto Differential Lab Routine Diabetes mellitus with stage 3 chronic kidney disease (CMS/HCC) Expected: 05/24/2023 (Approximate), Expires: 02/22/2024 [facility] Service Area Work Phone: Comment on above: Expected: 05/24/2023 (Approximate), Expi res: 02/22/2024 Start: 05-24-2023 End: 02-22-2024 Cobalamin (Vitamin B12) [Mass/volume] in Serum or Plasma Vitamin B12 Lab Routine Low vitamin B12 level Expected: 05/24/2023 (Approximate), Expires: 02/22/2024 [facility] Work Phone: Comment on above: Expected: 05/24/2023 (Approximate), Expi res: 02/22/2024 Start: 05-24-2023 End: 02-22-2024 Comprehensive metabolic 2000 panel - Serum or Plasma Comprehensive Metabolic Panel Lab Routine Diabetes mellitus with stage 3 chronic kidney disease (CMS/HCC) Expected: 05/24/2023 (Approximate), Expires: 02/22/2024 [facility] Work Phone: Comment on above: Expected: 05/24/2023 (Approximate), Expi res: 02/22/2024 Start: 05-24-2023 End: 02-22-2024 Hemoglobin A1c/Hemoglobin.total in Blood Hemoglobin A1C Lab Routine Diabetes mellitus with stage 3 chronic kidney disease (CMS/HCC) Expected: 05/24/2023 (Approximate), Expires: 02/22/2024 [facility] Work Phone: Comment on above: Expected: 05/24/2023 (Approximate), Expi res: 02/22/2024 Start: 05-24-2023 End: 02-22-2024 Magnesium [Mass/volume] in Serum or Plasma Magnesium Lab Routine Hypomagnesemia Expected: 05/24/2023 (Approximate), Expires: 02/22/2024 [facility] Work Phone: Comment on above: Expected: 05/24/2023 (Approximate), Expi res: 02/22/2024 Start: 05-20-2023 End: 05-20-2023 Patient encounter procedure 05/20/2023 10:15 AM EST Office Visit [facility] [address] [place] [phone] Fredy Styles MD [address] [facility], [address] [place] [address] [facility] Start: 05-18-2023 End: 05-18-2023 Patient encounter procedure [facility] Start: 05-13-2023 End: 05-13-2023 Patient encounter procedure 05/13/2023 8:15 AM EST Appointment [address] [phone] [facility] Start: 05-10-2023 Hemoglobin A1c measurement Diabetes: Hemoglobin A1C [facility] Start: 05-09-2023 End: 05-09-2024 MR Knee - left WO contrast MR knee left wo IV contrast Imaging Routine Primary osteoarthritis of left knee Expected: 05/09/2023, Expires: 05/09/2024 [facility] Service Area Work Phone: Comment on above: Expected: 05/09/2023, Expires: Start: 05-09-2023 End: 05-09-2023 Patient encounter procedure 05/09/2023 8:00 AM EST Office Visit [facility] [address] [place] [phone] Shadia Daley, CASE MAKER-DEMO COORDINATOR [address] [facility], [address] [place] [address] [facility] Start: 05-02-2023 End: 05-02-2023 Telemedicine consultation with patient 05/02/2023 11:00 AM EST Telemedicine [facility] [address] [place] [address] [facility] Start: 04-28-2023 End: 04-28-2023 Patient encounter procedure 04/28/2023 8:45 AM EST Office Visit [facility] Medical Office Building [address] [place] [address] Kelly Carrasco PA-C [address] [place] [address] [facility] Medical Office Building Start: 04-25-2023 End: 04-25-2023 Professional / ancillary services management [facility] Start: 04-21-2023 End: 04-21-2023 Telemedicine consultation with patient 04/21/2023 3:30 PM EST Telemedicine [facility] [address] [facility] [address] [place] [address] Audrey Diaz, PharmD [address] [place] [address] [facility] Start: 04-21-2023 End: 04-21-2023 Patient encounter procedure 04/21/2023 10:15 AM EST Office Visit [facility] [address] [facility] [address] [place] [phone] Kane Kilgore, DO [address] [facility], [address] [place] [address] [facility] Start: 04-19-2023 End: 04-19-2023 Patient encounter procedure 04/19/2023 9:00 AM EST Office Visit [facility] [address] [place] [phone] Shadia Daley, CASE MAKER-DEMO COORDINATOR [address] [facility], [address] [place] [address] [facility] Start: 04-14-2023 End: 04-14-2023 Patient encounter procedure 04/14/2023 9:45 AM EST Office Visit [facility] [address] [place] [phone] Shadia Daley, CASE MAKER-DEMO COORDINATOR [address] [facility], [address] [place] [address] [facility] Start: 04-12-2023 End: 04-12-2023 Patient encounter procedure 04/12/2023 9:00 AM EST Appointment [facility] [address] [place] [phone] [facility] Start: 03-29-2023 End: 03-29-2023 Patient encounter procedure 03/29/2023 9:30 AM EST Office Visit [facility] Medical Office Building [address] [place] [phone] Kelly Carrasco PA-C [address] [place] [address] [facility] Medical Office Building Start: 03-08-2023 End: 03-08-2024 Pulmonary function testing Pulmonary function testing PFT Routine Chronic obstructive pulmonary disease with acute exacerbation (CMS/HCC) Expected: 03/08/2023 (Approximate), Expires: 03/08/2024 [facility] Work Phone: Comment on above: Expected: 03/08/2023 (Approximate), Expi res: 03/08/2024 Start: 03-08-2023 End: 03-08-2024 Pulse oximetry, overnight Pulse oximetry, overnight Respiratory Care Routine Chronic obstructive pulmonary disease with acute exacerbation (CMS/HCC) Expected: 03/08/2023 (Approximate), Expires: 03/08/2024 [facility] Service Area Work Phone: Comment on above: Expected: 03/08/2023 (Approximate), Expi res: 03/08/2024 Start: 02-25-2023 FUV, Provider: Shadia Daley, Status: Mukesh, Time: 8:30 AM FUV, Provider: Shadia Daley, Status: Mukesh, Time: 8:30 AM [facility] 300 Work Phone: Start: 02-22-2023 End: 02-22-2023 Patient encounter procedure 02/22/2023 9:40 AM EST Office Visit [facility] [address] [place] [phone] Callie Mcdonough PA-C [address] [place] [address] [facility] Start: 02-15-2023 End: 02-15-2023 Patient encounter procedure 02/15/2023 10:45 AM EST Office Visit [facility] Medical Office Building [address] [facility] 2nd [place] [phone] Kelly Carrasco PA-C [address] [place] [address] [place] [address] [facility] Medical Office [facility] Start: 02-07-2023 FUV, Provider: Kane Kilgore, Status: Mukesh, Time: 3:15 PM FUV, Provider: Kane Kilgore, Status: Mukesh, Time: 3:15 PM [facility] Work Phone: Start: 02-07-2023 End: 02-07-2023 Patient encounter procedure 02/07/2023 3:15 PM EDT Office Visit [facility] [address] [place] [phone] Kane Kilgore DO [address] [facility], [address] [place] [address] [facility] Start: 02-07-2023 End: 02-07-2023 Patient encounter procedure 02/07/2023 10:15 AM EDT Office Visit [facility] [address] [place] [address] Shadia Daley, CASE MAKER-DEMO COORDINATOR [address] [facility], [address] [place] [address] [facility] Start: 01-31-2023 End: 01-31-2023 Patient encounter procedure 01/31/2023 10:15 AM EDT Office Visit [facility] [address] [place] [address] Shadia Daley, CASE MAKER-DEMO COORDINATOR [address] [facility], [address] [place] [address] [facility] Start: 01-24-2023 End: 01-24-2023 Patient encounter procedure 01/24/2023 10:15 AM EDT Office Visit [facility] [address] [place] [address] Shadia Daley, CASE MAKER-DEMO COORDINATOR [address] [facility], [address] [place] [address] [facility] Start: 01-04-2023 Screening for malignant neoplasm of colon [facility] Start: 01-04-2023 FUV, Provider: Kelly Carrasco, Status: Pen, Time: 8:00 AM FUV, Provider: Kelly Carrasco, Status: Pen, Time: 8:00 AM [facility] 300 Work Phone: Start: 12-10-2022 COVID-19 Vaccine ( season) COVID-19 Vaccine ( season) [facility] Start: 12-10-2022 Influenza vaccination [facility] Start: 11-25-2022 End: 11-25-2022 Patient encounter procedure 11/25/2022 9:00 AM EDT Office Visit [facility] [address] [place] [address] Callie Mcdonough, OLIVIA [address] [place] [address] [facility] Start: 11-20-2022 Hemoglobin A1c measurement Diabetes: Hemoglobin A1C [facility] Start: 10-21-2022 End: 07-23-2023 25-hydroxyvitamin D3 [Mass/volume] in Serum or Plasma Vitamin D, Total Lab Routine Vulvovaginal candidiasis Diabetes mellitus with stage 3 chronic kidney disease (CMS/HCC) Expected: 10/21/2022 (Approximate), Expires: 07/23/2023 [facility] Work Phone: Comment on above: Expected: 10/21/2022 (Approximate), Expi res: 07/23/2023 Start: 10-21-2022 End: 07-23-2023 CBC W Auto Differential panel - Blood CBC and Auto Differential Lab Routine Diabetes mellitus with stage 3 chronic kidney disease (CMS/HCC) Expected: 10/21/2022 (Approximate), Expires: 07/23/2023 [facility] Service Area Work Phone: Comment on above: Expected: 10/21/2022 (Approximate), Expi res: 07/23/2023 Start: 10-21-2022 End: 07-23-2023 Cobalamin (Vitamin B12) [Mass/volume] in Serum or Plasma Vitamin B12 Lab Routine Hypomagnesemia Diabetes mellitus with stage 3 chronic kidney disease (CMS/HCC) Expected: 10/21/2022 (Approximate), Expires: 07/23/2023 [facility] Work Phone: Comment on above: Expected: 10/21/2022 (Approximate), Expi res: 07/23/2023 Start: 10-21-2022 End: 07-23-2023 Comprehensive metabolic 2000 panel - Serum or Plasma Comprehensive Metabolic Panel Lab Routine Diabetes mellitus with stage 3 chronic kidney disease (CMS/HCC) Expected: 10/21/2022 (Approximate), Expires: 07/23/2023 [facility] Work Phone: Comment on above: Expected: 10/21/2022 (Approximate), Expi res: 07/23/2023 Start: 10-21-2022 End: 07-23-2023 Hemoglobin A1c/Hemoglobin.total in Blood Hemoglobin A1C Lab Routine Diabetes mellitus with stage 3 chronic kidney disease ([facility]/HCC) Expected: 10/21/2022 (Approximate), Expires: 07/23/2023 [facility] Work Phone: Comment on above: Expected: 10/21/2022 (Approximate), Expi res: 07/23/2023 Start: 10-21-2022 End: 07-23-2023 Magnesium [Mass/volume] in Serum or Plasma Magnesium Lab Routine Hypomagnesemia Diabetes mellitus with stage 3 chronic kidney disease ([facility]/HCC) Expected: 10/21/2022 (Approximate), Expires: 07/23/2023 [facility] Work Phone: Comment on above: Expected: 10/21/2022 (Approximate), Expi res: 07/23/2023 Start: 10-15-2022 Hemoglobin A1c measurement Diabetes: Hemoglobin A1C [facility] Start: 09-22-2022 FUV, Provider: Kelly Carrasco, Status: Pen, Time: 10:00 AM FUV, Provider: Kelly Carrasco, Status: Pen, Time: 10:00 AM [facility] Work [facility]: Start: 09-17-2022 [facility], Provider: Miguel Angelo, Status: Pen, Time: 10:45 AM [facility], Provider: Miguel Angelo, Status: Pen, Time: 10:45 AM [facility] Work Phone: Start: 08-18-2022 NPV, Provider: Kane Kilgore, Status: Pen, Time: 1:00 PM NPV, Provider: Kane Kilgore, Status: Pen, Time: 1:00 PM [facility] Work Phone: Start: 08-11-2022 FUV, Provider: Davide Lagos II, Status: Pen, Time: 9:30 AM FUV, Provider: Davide Lagos II, Status: Pen, Time: 9:30 AM [facility] Work Phone: Start: 08-04-2022 FUV, Provider: Kelly Carrasco, Status: Pen, Time: 10:45 AM FUV, Provider: Kelly Carrasco, Status: Pen, Time: 10:45 AM [facility] Work Phone: Start: 07-22-2022 Patient encounter procedure MCRANNUAL, Provider: Callie Mcdonough, Status: Pen, Time: 8:[address] [facility] Internal [facility] Work Phone: Start: 07-22-2022 End: 07-22-2022 Patient encounter procedure 07/22/2022 8:20 AM EDT Office Visit [facility] [address] [place] [phone] Callie Mcdonough B, PA-C [address] [place] [address] [facility] Start: 07-16-2022 End: 07-23-2022 Bacteria identified in Urine by Culture [facility] Service Area Work Phone: Comment on above: Expected: 07/16/2022 (Approximate), Expi res: 07/23/2022 Start: 07-16-2022 End: 09-16-2023 BI mammo bilateral screening tomosynthesis BI mammo bilateral screening tomosynthesis Imaging Routine Breast cancer screening by mammogram Expected: 07/16/2022, Expires: 09/16/2023 [facility] Work Phone: Comment on above: Expected: 07/16/2022, Expires: Start: 07-16-2022 End: 07-17-2023 DXA Skeletal system Views for bone density XR DEXA bone density Imaging Routine Post-menopausal Expected: 07/16/2022, Expires: 07/17/2023 [facility] Work Phone: Comment on above: Expected: 07/16/2022, Expires: Start: 07-14-2022 CYSTOSCOPY, Provider: [facility] PROCEDURE RM,[id number], Status: Pen, Time: 10:45 AM CYSTOSCOPY, Provider: [facility] PROCEDURE RM,[id number], Status: Pen, Time: 10:45 AM [facility] Work Phone: Start: 07-08-2022 End: 07-09-2023 MRCP Abdomen WO and W contrast IV MR abdomen w and wo IV contrast MRCP Imaging Routine Right upper quadrant abdominal pain Chronic constipation Abnormal biliary HIDA scan Expected: 07/08/2022, Expires: 07/09/2023 [facility] Service Area Work Phone: Comment on above: Expected: 07/08/2022, Expires: Start: 06-24-2022 FUV, Provider: Shadia Daley, Status: Pen, Time: 8:30 AM FUV, Provider: Shadia Daley, Status: Pen, Time: 8:30 AM [facility] 300 Work Phone: Start: 06-24-2022 Patient encounter procedure [facility] Start: 06-12-2022 End: 06-13-2023 [facility] Start: 05-13-2022 PTEVAADULT, Provider: Murray Christie, Status: Pen, Time: 10:30 AM PTEVAADULT, Provider: Murray Christie, Status: Pen, Time: 10:[address] [facility] Internal Medicine Work Phone: Start: 05-05-2022 PTEVAADULT, Provider: Maria G Johnson, Status: Pen, Time: 11:45 AM PTEVAADULT, Provider: Maria G Johnson, Status: Pen, Time: 11:45 AM [facility] 300 Work Phone: Start: 04-13-2022 Patient encounter procedure [facility] Medicine [place] Start: 04-01-2022 End: 04-02-2023 Bacitracin 500 Units/gram Topical 1 application Ointment 2 Times a Day ; OintmentDOSE = 1 application(s) Topical OnceApply to Elbow Start: 01-Apr-2022 End: 01-Apr-2023 Ordered: 01-Apr-2022 Balbir Tavares Intent [facility] Start: 02-04-2022 FUV, Provider: Kelly Carrasco, Status: Pen, Time: 10:15 AM FUV, Provider: Kelly Carrasco, Status: Pen, Time: 10:15 AM [facility] Work Phone: Start: 01-14-2022 FUV, Provider: Kelly Carrasco, Status: Pen, Time: 9:15 AM FUV, Provider: Kelly Carrasco, Status: Pen, Time: 9:15 AM -Pain [facility] Work Phone: Start: 12-10-2021 Influenza vaccination Influenza Vaccine (#1) [facility] Start: 12-03-2021 FUV, Provider: Kelly Carrasco, Status: Pen, Time: 8:15 AM FUV, Provider: Kelly Carrasco, Status: Pen, Time: 8:15 AM [facility] Work Phone: Start: 11-12-2021 FUV, Provider: Kelly Carrasco, Status: Pen, Time: 3:15 PM FUV, Provider: Kelly Carrasco, Status: Pen, Time: 3:15 PM [facility] Work Phone: Start: 10-29-2021 FUV, Provider: Shadia Daley, Status: Pen, Time: 10:00 AM FUV, Provider: Shadia Daley, Status: Pen, Time: 10:00 AM [facility] Sports [facility] Work Phone: Start: 10-29-2021 Patient encounter procedure [facility] Orthopedics [place] Start: 10-29-2021 NPV, Provider: Kelly Carrasco, Status: Pen, Time: 9:30 AM NPV, Provider: Kelly Carrasco, Status: Pen, Time: 9:30 AM [facility] Work Phone: Start: 10-15-2021 FUV, Provider: Shadia Daley, Status: Pen, Time: 8:30 AM FUV, Provider: Shadia Daley, Status: Pen, Time: 8:30 AM [facility] Orthopedics [facility] Sports [facility] 300 Work Phone: Start: 10-02-2021 VNDVTUNI, Provider: [facility],[id number], Status: Pen, Time: 9:00 AM VNDVTUNI, Provider: [facility], Status: Pen, Time: 9:00 AM [facility] Orthopedics [facility] 300 Work Phone: Start: 09-22-2021 End: 09-23-2022 [facility] Start: 09-17-2021 FUV, Provider: Shadia Daley, Status: Pen, Time: 10:00 AM FUV, Provider: Shadia Daley, Status: Pen, Time: 10:00 AM [facility] Orthopedics [facility] 300 Work Phone: Start: 2021 Pneumococcal Vaccine: 65+ Years (3 - PPSV23 if available, else PCV20) Pneumococcal Vaccine: 65+ Years (3 - PPSV23 if available, else PCV20) [facility] Start: 2021 Pneumococcal Vaccine: 65+ Years (3 - PPSV23 or PCV20) Pneumococcal Vaccine: 65+ Years (3 - PPSV23 or PCV20) [facility] Start: 2021 Pneumococcal Vaccine: 65+ Years (3 of 3 - PPSV23 or PCV20) Pneumococcal Vaccine: 65+ Years (3 of 3 - PPSV23 or PCV20) [facility] Start: 04-16-2021 End: 04-16-2021 Patient encounter procedure 04/16/2021 Office Visit Endocrinology Ida Ely, EVERARDO [address] [place] [address] Maria G Sands PA-C [address] [place] [address] [facility] Endocrinology Physicians Start: 03-10-2021 Depression screening using PHQ-9 (Patient Health Questionnaire 9) score Depression Screening (PHQ9) [facility] Start: 03-10-2021 Hemoglobin A1c measurement A1C [facility] Start: 02-16-2021 End: 02-16-2021 Patient encounter procedure [facility] Start: 12-10-2020 Influenza vaccination Sequential Influenza Vaccine (#1) [facility] Start: 12-09-2020 End: 12-09-2020 Patient encounter procedure 12/09/2020 Office Visit Endocrinology Ida Ely CNP [address] [place] [address] [phone] Sherine Camara MD [address] [place] [address] [phone] [facility] Endocrinology Physicians Start: 11-26-2020 End: 11-26-2020 Patient encounter procedure 11/26/2020 Office Visit Primary Care Ida Ely CNP [address] [place] [address] [phone] [facility] Start: 11-20-2020 Subsequent hospital visit by physician 11/20/2020 Hospital Encounter Cardiology Bob Hunt MD [address] [facility] [address] [address] [phone] [facility] Procedural Care Unit Start: 11-14-2020 End: 11-14-2020 ambulatory 11/14/2020 Evaluation Rehabilitation Ida Ely CNP [address] [place] [address] [phone] Rissa Philip, PT [facility] Start: 10-21-2020 COVID-19 Vaccine (3 - Booster for Moderna series) COVID-19 Vaccine (3 - Booster for Moderna series) [facility] Start: 10-21-2020 COVID-19 Vaccine (3 - Moderna series) COVID-19 Vaccine (3 - Moderna series) [facility] Start: 09-23-2020 COVID-19 Vaccine (3 - Moderna risk series) COVID-19 Vaccine (3 - Moderna risk series) [facility] Start: 11-04-2019 Screening for malignant neoplasm of breast Mammogram [facility] Start: 05-08-2019 Microalbumin measurement, urine, quantitative Urine Microalbumin [facility] Start: 06-23-2018 Administration of herpes zoster vaccine Zoster Vaccines (3 of 3) [facility] Start: 01-29-2018 Screening for malignant neoplasm of cervix Pap Smear [facility] Start: 2016 Hepatitis B Vaccines (1 of 3 - Risk 3-dose series) Hepatitis B Vaccines (1 of 3 - Risk 3-dose series) [facility] Start: 2016 RSV patients and/or patients aged 60+ years (1 - 1-dose 60+ series) RSV patients and/or patients aged 60+ years (1 - 1-dose 60+ series) [facility] Start: 07-17-2015 Pneumococcal Vaccine: Ped or At-Risk (1 of 2 - PPSV23) Pneumococcal Vaccine: Ped or At-Risk (1 of 2 - PPSV23) [facility] Start: 2006 Screening for malignant neoplasm of colon [facility] Start: 1996 Screening for malignant neoplasm of breast Mammogram [facility] Start: 1977 Screening for malignant neoplasm of cervix [facility] Start: 08-07-1975 Hepatitis A Vaccines (1 of 2 - Risk 2-dose series) Hepatitis A Vaccines (1 of 2 - Risk 2-dose series) [facility] Start: 1974 Hepatitis C screening Hepatitis C Screening [facility] Start: 08-07-1971 HIV screening HIV Screening [facility] Start: 1966 Diabetic foot examination [facility] Start: 1966 Glaucoma screening Diabetes: Retinopathy Screening [facility] Start: 1966 Ophthalmic examination and evaluation [facility] Start: 08-07-1959 History and physical examination, annual for health maintenance Wellness Visit [facility] Start: 1957 Hepatitis A Vaccines (1 of 2 - Risk 2-dose series) Hepatitis A Vaccines (1 of 2 - Risk 2-dose series) [facility] Start: 1956 Annual wellness visit Medicare Initial Physical (IPPE) [facility] Start: 1956 Hemoglobin A1c measurement Diabetes: Hemoglobin A1C [facility] Start: 1956 Lipid panel Lipid Panel [facility] Start: 1956 Medicare Annual Wellness Visit Medicare Annual Wellness Visit (AWV) [facility] Start: 1955 Screening for malignant neoplasm of colon [facility] Start: 1955 Screening for osteoporosis Bone Density Scan [facility] Start: 1955 Tetanus vaccination Tetanus: Every 10yrs [facility] Bacteria identified in Blood by Culture [facility] Work Phone: End: 05-18-2023 DBT Breast - bilateral [facility] Work Phone: Comment on above: Once for 1 Occurrences starting 05/18/19 24 until 05/18/2023 ECG 12 lead ECG 12 lead ECG STAT 04/04/2023 2:07 PM EST [facility] Work Phone: ECG 12 Lead ECG 12 Lead ECG Routine Primary osteoarthritis of left knee 05/31/2023 7:33 AM EST [facility] Work Phone: ECG 12 lead ECG 12 lead ECG STAT 04/14/2023 7:00 AM EST [facility] Work Phone: Electrocardiogram, 12-lead PRN ACS symptoms Electrocardiogram, 12-lead PRN ACS symptoms ECG Routine As needed until discontinued starting 04/04/2023 [facility] Work Phone: Comment on above: As needed until discontinued starting Electrocardiogram, 12-lead PRN ACS symptoms Electrocardiogram, 12-lead PRN ACS symptoms ECG Routine As needed until discontinued starting 06/10/2023 [facility] Work Phone: Comment on above: As needed until discontinued starting Electrocardiogram, 12-lead PRN ACS symptoms Electrocardiogram, 12-lead PRN ACS symptoms ECG Routine As needed until discontinued starting 04/13/2023 [facility] Work Phone: Comment on above: As needed until discontinued starting Electrocardiogram, 12-lead PRN ACS symptoms Electrocardiogram, 12-lead PRN ACS symptoms ECG Routine As needed until discontinued starting 04/13/2023 [facility] Work Phone: Comment on above: As needed until discontinued starting End: 06-03-2023 Epidural steroid injection Epidural Steroid Injection Procedures Routine Lumbar radiculopathy Once for 1 Occurrences starting 06/03/2023 until 06/03/2023 [facility] Work Phone: Comment on above: Once for 1 Occurrences starting 06/03/19 until 06/03/2023 Glucose [Mass/volume ] in Serum or Plasma POCT Glucose Point of Care Testing - Docked Device Routine As needed (Lab) until discontinued starting 04/04/2023 [facility] Work Phone: Comment on above: As needed (Lab) until discontinued start ing 04/04/2023 End: 04-07-2023 Glucose [Mass/volume] in Serum or Plasma POCT GLUCOSE Point of Care Testing Routine 4 times daily before meals and at bedtime for 3 Days starting 04/04/2023 until 04/07/2023 [facility] Work Phone: Comment on above: 4 times daily before meals and at bedtim e for 3 Days starting 04/04/2023 until 04/07/2023 Glucose [Mass/volume ] in Serum or Plasma [facility] Work Phone: Comment on above: 4x daily - AC and at bedtime until disco ntinued starting 06/10/2023 As needed (Lab) unti l discontinued starting 06/10/2023 End: 06-13-2023 Glucose [Mass/volume] in Serum or Plasma POCT GLUCOSE Point of Care Testing Routine 4 times daily before meals and at bedtime for 3 Days starting 06/10/2023 until 06/13/2023 [facility] Work Phone: Comment on above: 4 times daily before meals and at bedtim e for 3 Days starting 06/10/2023 until 06/13/2023 End: 06-14-2023 Glucose [Mass/volume] in Serum or Plasma POCT GLUCOSE Point of Care Testing Routine 4 times daily before meals and at bedtime for 3 Days starting 06/11/2023 until 06/14/2023 [facility] Work Phone: Comment on above: 4 times daily before meals and at bedtim e for 3 Days starting 06/11/2023 until 06/14/2023 Glucose [Mass/volume ] in Serum or Plasma [facility] Work Phone: Comment on above: 4x daily - AC and at bedtime until disco ntinued starting 04/13/2023 As needed (Lab) unti l discontinued starting 04/13/2023 H/O: bilateral oophorectomy H/O bilateral oophorectomy [facility] H/O: surgery History of D&C [facility] History of cholecystectomy History of laparoscopic cholecystectomy [facility] History of colonoscopy History of colonos copy [facility] History of repair of umbilical hernia History of umbilical hernia repair [facility] End: 04-20-2023 Holter monitor study [facility] Work Phone: Comment on above: Once for 1 Occurrences starting 04/20/19 until 04/20/2023 End: 06-10-2023 Incentive spirometry Instruct Incentive spirometry Instruct Respiratory Care Routine Once for 1 Occurrences starting 06/10/2023 until 06/10/2023 [facility] Work Phone: Comment on above: Once for 1 Occurrences starting 06/10/19 until 06/10/2023 End: 04-13-2023 Lower extremity venous duplex left Lower extremity venous duplex left Vascular Ultrasound Routine Pain of left lower extremity Leg swelling Once for 1 Occurrences starting 04/13/2023 until 04/13/2023 [facility] Work Phone: Comment on above: Once for 1 Occurrences starting 04/13/19 until 04/13/2023 POCT glucose meter docked device POCT glucose meter docked device Point of Care Testing - Docked Device Routine As needed (Lab) until discontinued starting 06/03/2023 [facility] Work Phone: Comment on above: As needed (Lab) until discontinued start ing 06/03/2023 End: 04-13-2023 Respiratory care eval and treat Respiratory care eval and treat Respiratory Care Routine Once for 1 Occurrences starting 04/13/2023 until 04/13/2023 [facility] Work Phone: Comment on above: Once for 1 Occurrences starting 04/13/19 until 04/13/2023 End: 05-31-2023 XR Chest 2 Views [facility] Work Phone: Comment on above: Once for 1 Occurrences starting 05/31/19 until 05/31/2023 End: 06-17-2023 XR Knee - left 3 Views [facility] Work Phone: Comment on above: Once for 1 Occurrences starting 06/17/19 until 06/17/2023 End: 07-22-2023 XR Knee - left 3 Views [facility] Work Phone: Comment on above: Once for 1 Occurrences starting 07/22/19 until 07/22/2023 Immunizations Immunization Date Immunization Notes Care Provider Fa leonard 10-06-2022 zoster vaccine recombinant Brynn Jose MD Work Phone: [facility] 04-01-2022 tetanus toxoid, redu omkar diphtheria toxoid, and acellular pertussis vaccine, adsorbed Ida Ely [facility] 03-10-2020 influenza, injectabl e, quadrivalent, preservative free Yoshi [place] DO Work Phone: [facility] 03-10-2020 influenza virus vaccine, unspecified formulation Callie Mcdonough PA-C Work Phone: [facility] Work Phone: 04-28-2018 zoster vaccine recombinant Yoshi [place] DO Work Phone: [facility] 02-15-2018 zoster vaccine recombinant Yoshi [place] DO Work Phone: [facility] 02-15-2018 zoster vaccine, live Yoshi [place] DO Work Phone: [facility] 02-15-2018 SHINGRIX, PF, 50 mcg/0.5 mL injection Yoshi [place] DO Work Phone: [facility] 01-06-2018 Seasonal, quadrivale nt, recombinant, injectable influenza vaccine, preservative free Yoshi [place] DO Work Phone: [facility] 01-06-2018 FLUBLOK QUAD 2017- 19, PF, syringe Yoshi [place] DO Work Phone: [facility] 02-09-2016 influenza, seasonal, injectable Yoshi [place] DO Work Phone: [facility] 05-22-2015 pneumococcal conjuga te vaccine, 13 valent Yoshi [place] DO Work Phone: [facility] 05-22-2015 pneumococcal polysaccharide vaccine, 23 valent Yoshi [place] DO Work Phone: [facility] 01-29-2015 influenza, seasonal, injectable Yoshi [place] DO Work Phone: [facility] 06-02-2013 influenza, seasonal, injectable Yoshi [place] DO Work Phone: [facility] 01-07-2012 seasonal influenza, intradermal, preservative free Yoshi [place] DO Work Phone: [facility] 03-26-2010 influenza, injectabl e, quadrivalent, preservative free Yoshi [place] DO Work Phone: [facility] 07-08-2009 pneumococcal conjuga te vaccine, 13 valent Yoshi [place] DO Work Phone: [facility] 04-01-2009 influenza, seasonal, injectable Yoshi [place] DO Work Phone: [facility] 02-01-2008 influenza, seasonal, injectable Yoshi [place] DO Work Phone: [facility] Payers Date Payer Category Payer Private Health Insurance [id number] 2023 Private Health Insurance [id number] 2022 Medicare [id number] 2018 Medicare [id number] 2018 Unknown [id number] 2018 Unknown 2017 [facility] [id number] 2010 Medicare [id number] 1956 Unknown [id number] 2.16.8 40.1.641606.3.579.2.903 1956 Unknown [id number] 2.16.8 40.1.139817.3.579.2.903 1956 Unknown [id number] 2. 840.1.858194.3.579.2.900 1956 Unknown [id number] 2.16. 840.1.838718.3.579.2.900 1956 Unknown [id number] 2.16.8 40.1.262380.3.579.2.900 1956 Unknown [id number] 2.16.8 40.1.708043.3.579.2.900 1956 Unknown [id number] 2.16.8 40.1.716744.3.579.2.900 1956 Unknown [id number] 2.16.8 40.1.124980.3.579.2.900 1956 Unknown [id number] 2.16. 840.1.055474.3.579.2.903 1956 Unknown [id number] 2.16. 840.1.013736.3.579.2.903 1956 Unknown [id number] 2.16. 840.1.500227.3.579.2.903 1956 Unknown [id number] 2.16. 840.1.464395.3.579.2.3 1956 Unknown [id number] 2.16. 840.1.655875.3.579.2. 1956 Unknown [id number] 2.16. 840.1.879943.3.579.2. 1956 Unknown [id number] 2.16. 840.1.328362.3.579.2. 1956 Unknown [id number] 2.16. 840.1.642454.3.579.2. 1956 Unknown [id number] 2.16.8 40.1.049742.3.579.2.1068 1956 Unknown [id number] 2.16.8 40.1.613835.3.579.2.1068 1956 Unknown [id number] 2.16.8 40.1.963538.3.579.2.1068 1956 Unknown [id number] 2.16.8 40.1.919361.3.579.2.1068 1956 Unknown [id number] 2.16.8 40.1.492895.3.579.2.1068 1956 Unknown [id number] 2.16.8 40.1.965662.3.579.2.1068 1956 Unknown [id number] 2.16.8 40.1.844037.3.579.2.1068 1956 Unknown [id number] 2.16.8 40.1.458385.3.579.2.1068 1956 Unknown [id number] 2.16.8 40.1.230825.3.579.2.1068 1956 Unknown [id number] 2.16.8 40.1.297167.3.579.2.1068 1956 Unknown [id number] 2.16.8 40.1.498952.3.579.2.1068 1956 Unknown [id number] 2.16.8 40.1.757941.3.579.2.1068 1956 Unknown [id number] 2.16.8 40.1.496367.3.579.2.1068 1956 Unknown [id number] 2.16.8 40.1.487227.3.579.2.1068 1956 Unknown [id number] 2.16.8 40.1.249339.3.579.2.1068 1956 Unknown [id number] 2.16.8 40.1.359004.3.579.2.1244 1956 Unknown [id number] 2.16.8 40.1.039414.3.579.2.1244 1956 Unknown [id number] 2.16.8 40.1.334708.3.579.2.1244 1956 Unknown [id number] 2.16.8 40.1.578605.3.579.2.1244 1956 Unknown [id number] 2.16.8 40.1.912956.3.579.2.1244 1956 Unknown [id number] 2.16.8 40.1.727096.3.579.2.1244 1956 Unknown [id number] 2.16.8 40.1.872400.3.579.2.1244 1956 Unknown [id number] 2.16.8 40.1.576571.3.579.2.1244 1956 Unknown [id number] 2.16.840 .1.411476.3.579.2.1244 1956 Unknown [id number] 2.16.840 .1.247004.3.579.2.1244 1956 Unknown [id number] 2.16.8 40.1.333862.3.579.2.1242 1956 Unknown [id number] 2.16.8 40.1.421163.3.579.2.1242 1956 Unknown [id number] 2.16.8 40.1.538380.3.579.2.1242 1956 Unknown [id number] 2.16.8 40.1.288472.3.579.2.1242 1956 Unknown [id number] 2.16.8 40.1.557934.3.579.2.1242 1956 Unknown [id number] 2.16.8 40.1.776230.3.579.2.1242 1956 Unknown [id number] 2.16.8 40.1.567536.3.579.2.1242 1956 Unknown [id number] 2.16.8 40.1.873976.3.579.2.1242 1956 Unknown [id number] 2.16.8 40.1.182386.3.579.2.1242 1956 Unknown [id number] 2.16.8 40.1.615302.3.579.2.1242 1956 Unknown [id number] 2.16.8 40.1.028239.3.579.2.1242 1956 Unknown [id number] 2.16.84 0.1.701290.3.579.2.1242 1956 Unknown [id number] 2.16.84 0.1.619313.3.579.2.1242 1956 Unknown [id number] 2.16.84 0.1.589079.3.579.2.1242 1956 Unknown [id number] 2.16.84 0.1.976733.3.579.2.1242 1956 Unknown [id number] 2.16.84 0.1.094932.3.579.2.1242 1956 Unknown [id number] 2.16.84 0.1.860709.3.579.2.1242 1956 Unknown [id number] 2.16.84 0.1.660881.3.579.2.1242 1956 Unknown [id number] 2.16.84 0.1.362752.3.579.2.1242 1956 Unknown [id number] 2.16.84 0.1.780566.3.579.2.1242 1956 Unknown [id number] 2.16.84 0.1.834966.3.579.2.1242 1956 Unknown [id number] 2.16.84 0.1.823106.3.579.2.1242 1956 Unknown [id number] 2.16.8 40.1.497895.3.579.2.1242 1956 Unknown [id number] 2.16.84 0.1.412605.3.579.2.1242 1956 Unknown [id number] 2.16.8 40.1.972836.3.579.2.1242 1956 Unknown [id number] 2.16.8 40.1.877310.3.579.2.1243 1956 Unknown [id number] 2.16.8 40.1.848278.3.579.2.1243 1956 Unknown [id number] 2.16.8 40.1.044186.3.579.2.1243 1956 Unknown [id number] 2.16.8 40.1.889741.3.579.2.1243 1956 Unknown [id number] 2.16.8 40.1.722828.3.579.2.1243 1956 Unknown [id number] 2.16.8 40.1.339636.3.579.2.1243 1956 Unknown [id number] 2.16.8 40.1.297897.3.579.2.1243 1956 Unknown [id number] 2.16.8 40.1.921530.3.579.2.1243 1956 Unknown [id number] 2.16.8 40.1.845624.3.579.2.1243 1956 Unknown [id number] 2.16.8 40.1.841378.3.579.2.1243 1956 Unknown [id number] 2.16.8 40.1.147910.3.579.2.1243 1956 Unknown [id number] 2.16.8 40.1.480383.3.579.2.1243 1956 Unknown [id number] 2.16.8 40.1.529855.3.579.2.1243 1956 Unknown [id number] 2.16.8 40.1.330744.3.579.2.1243 1956 Unknown [id number] 2.16.8 40.1.752712.3.579.2.1243 1956 Unknown [id number] 2.16.8 40.1.836400.3.579.2.1243 1956 Unknown [id number] 2.16.8 40.1.115618.3.579.2.1243 1956 Unknown [id number] 2.16.8 40.1.637430.3.579.2.1243 1956 Unknown [id number] 2.16.8 40.1.365303.3.579.2.1244 Social History Date Type Detail Facility Start: 10-22-2020 End: 11-25-2022 Tobacco smoking status NHIS Current every day smoker [facility] History of tobacco use Cigarette Smoker O [facility] Start: 10-22-2020 End: 04-13-2023 Cigarettes smoked current (pack per day) - Reported [facility] Start: 10-22-2020 End: 11-25-2022 Tobacco use and exposure Never used [facility] Start: 10-22-2020 End: 01-08-2021 Alcohol intake Current non-drinker of alcohol (finding) [facility] Start: 1955 Sex Assigned At Not on file O [facility] Start: 06-28-2022 End: 08-25-2023 Exposure to SARS-CoV-2 (event) Not sure [facility] Tobacco smoking consumption unknown [facility] Start: 07-08-2022 End: 07-22-2022 Alcohol intake Lifetime non-drinker (finding) [facility] Work Phone: Start: 07-08-2022 End: 04-13-2023 Tobacco use panel [facility] Work Phone: Start: 01-19-2023 End: 04-13-2023 Alcohol intake Current drinker of alcohol (finding) [facility] Work Phone: Start: 11-25-2022 Alcohol Comment OCCASIONALLY [facility] Work Phone: Start: 01-09-2023 End: 03-28-2023 Exposure to SARS-CoV-2 (event) Unable to assess [facility] Work Phone: How often to you hav e a drink containing alcohol? Never [facility] How many standard drinks containing alcohol do you have on a typical day? Patient does not drink [facility] Work Phone: In the past 12 month s, was there a time when you were not able to pay the mortgage or rent on time? No [facility] Work Phone: History of tobacco use Passive smoker [facility] Work Phone: Start: 04-28-2023 End: 08-25-2023 Alcohol intake Ex-drinker (finding) [facility] Work Phone: How often do you fee l lonely or isolated from those around you [CMS Assessment] Rarely [facility] Work Phone: How often do you nee d to have someone help you when you read instructions, pamphlets, or other written material from your doctor or pharmacy [SILS] Often [facility] Work Phone: Medical Equipment Procedure Code Equipment Code Equipment Origin al Text Equipment Identifier Dates by Miscellaneous route 4 (four) times a day . [id number] Start: 08-07-2018 USE ONE SYRINGE THREE TIMES A DAY [id number] Start: 06-05-2018 Test qid . [id number] Start: 08-07-2018 1 Pen Needle by Miscellaneous route 4 (four) times a day . [id number] Start: 08-09-2018 by Miscellaneous route 4 (four) times a day . [id number] Start: 11-12-2020 USE ONE SYRINGE THREE TIMES A DAY . [id number] Start: 11-12-2020 Test qid . [id number] Start: 11-12-2020 BD Ultra-Fine Sh ort Pen Needle 31 gauge x 5/16 needle [id number] Start: 03-02-2022 End: 02-21-2023 lancets 33 gauge misc [id number] End: 03-21-2023 1 each in the mo rning and 1 each before bedtime. [id number] End: 07-08-2022 1 each in the mo rning and 1 each before bedtime. [id number] Start: 07-09-2022 End: 03-21-2023 USE DIRECTED [id number] Start: 02-21-2023 End: 05-25-2023 1 each 2 times a day. [id number] Sta rt: 03-21-2023 1 each 2 times a day. [id number] Sta rt: 03-21-2023 USE DIRECTED [id number] Start: 05-25-2023 Patella, Triathl on, Asymmetric X3, Sz-A29 9mm - [id number] Start: 06-10-2023 Fem Comp, Triath Cr Sz4 Left - [id number] Start: 06-10-2023 Plate, Tibial Tr iath Vipul Ila Fxd Bplt P4 - [id number] Start: 06-10-2023 Surgical Simplex P Bone Cement [id number] Start: 03-01-2024 10mm Triathlon C s Tibial Insert - [id number] Start: 06-10-2023 Cement, Bone, Si mplex P, Radiopaque, Full Dose, 40 Gm - [id number] Start: 06-10-2023 USE DIRECTED [id number] Start: 07-28-2023 Goals Date Patient Goal Desired [...] Time Phone Pager Daiana Edwards, 11/20/2021 08:14 [id number] Exam Information Status Exam Begun Exam Ended [...] COMPARISON: Radiographs November 16, 2021 ACCESSION NUMBER(S): [id number] ORDERING CLINICIAN: KELLY CARRASCO TECHNIQUE: Sagittal T1, [...] adrenal lesion, incompletely included on the obtained [id number]. CT washout study or MRI with in and out of phase imaging is recommended for evaluation. A Yellow Alert message was sent to the referring physician Dr. KELLY CARRASCO through the [employer] system at 8:14 am on 11/20/2021 by [...] 2 weeks after. documented in this encounter [facility] Work Phone: 08-25-2023 Instructions Faviola Hughes RN - 08/25/2023 9:45 AM EDT Injection education completed written and verbally. The following attachments cannot be sent through Care Everywhere.Epidural Injection (Norwegian)documented in this encounter [facility] Work Phone: 07-22-2023 History of Present illness [...] All questions answered documented in this encounter [facility] Work Phone: 06-17-2023 History of Present illness [...] All questions answered documented in this encounter [facility] Work Phone: 06-12-2023 History of Present illness Narrative Patient is ready for discharge and will be returning home today. SW did call and spoke with her to confirm that she will have [facility]. She said that her sister will be picking her up to take her home and will also be with her over the next 2 weeks. Explained that she should get a call from [facility] in the next day to inform when they will be out. She voiced understanding.Patient home today with [facility] Physical Therapy Physical Therapy Treatment [...] desc) Outcome Measures: [facility] Basic Mobility Turning from your back to [...] Time Calculation Start Time: 954 Stop Time: 1024 Time Calculation (min): 30 min Assessment/Plan PT [...] guard Outcome Measures: [facility] Basic Mobility Turning from your back to [...] discharge plans for today. In talking with PROGRAM DEVELOPMENT SPECIALIST she is suggesting SNF-however patient is not [...] management Outcome Measures: [facility] Basic Mobility Turning from your back to [...] Primary osteoarthritis of left knee COPD exacerbation ([facility]/HCC) Class 3 severe obesity due to excess [...] x10 Outcome Measures: [facility] Basic Mobility Turning from your back to [...] with PT today, discharge today if stable [facility] for PT Follow up in [address] Styles All questions answered Physical Therapy Physical Therapy Evaluation & Treatment Patient Name: Janelle Pickett Today's Date: 06/10/2023 Time Calculation Start Time: 161 Stop Time: 164 Time Calculation (min): 33 min Assessment/Plan PT [...] mellitus with stage 3 chronic kidney disease ([facility]/HCC) Chronic constipation Abnormal biliary HIDA scan Gross hematuria Dysuria Breast cancer screening by mammogram Post-menopausal Acquired hypothyroidism Vulvovaginal candidiasis Calculus of gallbladder with chronic cholecystitis without obstruction Hypomagnesemia Abdominal guarding Gastroesophageal reflux disease without esophagitis Abdominal pain, acute, right upper quadrant Low vitamin B12 level Vitamin D deficiency Primary osteoarthritis of left knee COPD exacerbation ([facility]) Class 3 severe obesity due to excess calories with serious comorbidity and body mass index (BMI) of 40.0 to 44.9 in adult ([facility]/HCC) Leg swelling Arthritis of left knee Adenoma [...] Prior Function Per Pt/Caregiver Report Level of [place]: Independent with ADLs and functional transfers, Independent [...] reps Outcome Measures: [facility] Basic Mobility Turning from your back to [...] 06/24/23 Education Documentation Handouts, taught by Alyssa Eason PT at 06/10/2023 4:52 PM. Learner: Patient Readiness: Acceptance Method: Explanation, Handout Response: Verbalizes Understanding, Needs Reinforcement Home Exercise Program, taught by Alyssa Eason PT at 06/10/2023 [...] in order to return home safely at [facility] Prognosis: Good Medical Staff Made Aware: Yes [...] stay with her Prior Function: Level of [place]: Independent with ADLs and functional transfers, Independent [...] WFL Perception: Outcome Measures:[facility] Daily Activity Putting on and taking off [...] expects to be discharged to: Home with [facility] Does the patient need discharge transport arranged? [...] place to sleep or slept in a residential (including now)? N Transportation Needs In the [...] with her PCP Callie Mcdonough. She uses [facility] pharmacy in [place] for medication needs. She has a walker, can and raised toilet seat at home. She does use her walker for ambulation. She has been independent at home with ADL's and still drives. Discussed discharge plans. States she will return home and would like [facility] services for therapy. Discussed agency of choice and would like [facility]. Dr. Styles notified of patient [facility] agency choice for a referral. Her sister Randi Rizzo will be picking her up when discharged home. No further needs anticipated from care transitions. Care team available upon request. Malu Darden RN/TCC documented in this encounter [facility] Work Phone: 06-12-2023 Hospital course Narrative Discharge [...] 160-9-4.8 mcg/actuation HFA aerosol inhaler Generic drug: uxsmlqffle-[id number] Inhale 2 puffs 2 times a day. [...] by mouth once daily. ergocalciferol 1.25 MG (48265 UT) capsule Commonly known as: Vitamin D-2 [...] Your Medications These medications were sent to [id number] [address] aspirin 81 mg EC tablet oxyCODONE 5 [...] care. Resume home meds. Prescription sent to [facility]'s pharmacy per Dr. Styles. Patient to continue [...] 06/12/2023 To Be Determined Monika Perry, PT [facility] 06/14/2023 To Be Determined Sravanthi Barroso, OT [facility] 06/17/2023 9:00 AM Fredy Styles MD [id number] [facility] 06/20/2023 3:00 PM [facility] [id number] [facility] 07/06/2023 9:15 AM Kelly Carrasco PA-C [id number] [facility] 09/08/2023 8:20 AM Callie Mcdonough PA-C [id number] [facility] JYOTHI Burrell documented in this encounter [facility] Work Phone: 06-12-2023 Nurse Note This nurse [...] haldol. Medications given. Will continue to monitor. [facility] 06-12-2023 Nurse Note This nurse in when [...] continue to monitor. documented in this encounter [facility] Work Phone: 06-12-2023 Plan of care note [...] room three times this shift with walker. [facility] Work Phone: 06-12-2023 Miscellaneous Notes Problem: Pain [...] (L) Operative Note Date: 06/10/2023 OR Location: [facility] OR Name: Janelle Pickett, : 1955, Age: 67 y.o., , Sex: female Diagnosis Pre-op Diagnosis * Arthritis of left knee [M17.12] Post-op Diagnosis * Arthritis of left knee [M17.12] Procedures Arthroplasty Total Knee 80595 - NC ARTHRP KNE CONDYLE&PLATU MEDIAL&LAT COMPARTMENTS Surgeons * Fredy Styles - Primary Resident/Fellow/Other Cellular Plastics Cutter: Surgeon(s) and Role: Procedure Summary Anesthesia: Consult [...] 950 mL Specimen: No specimens collected Staff: Microscopist: Umu Moss RN Scrub Person: Devyn Scales Drains and/or Catheters: * None in log * Tourniquet Times: Total Tourniquet Time Documented: Thigh (Left) - 49 minutes Total: Thigh (Left) - 49 minutes Implants: Implants Type Name Action Serial No. Other SURGICAL SIMPLEX P BONE CEMENT Implanted NA Joint PATELLA, TRIATHLON, ASYMMETRIC X3, SZ-A29 9MM - [id number] Implanted Joint FEM COMP, TRIATH CR SZ4 LEFT - [id number] Implanted 10MM TRIATHLON CS TIBIAL INSERT - X3 Implanted Joint PLATE, TIBIAL TRIATH VIPUL ILA FXD BPLT P4 - [id number] Implanted Findings: Osteoarthrosis left knee Indications: Janelle [...] and they consented to the procedure. Components: Granite Triathlon See above implant record Operative procedure: [...] I debrided any excess cement with a [place] elevator. Next I impacted the femoral component into place and debrided any excess cement with a [place] elevator with the assistance of the PA. [...] An Aquacel dressing was applied. The physician assistant floor covering printer was present for the entire case. Given the nature of the procedure and disease process a skilled regional vice president surgical sales was necessary for the case. The assistant floor covering printer was necessary for retraction and helped directly facilitate completion of the surgery. A certified residential medication aide was at the back table managing instruments [...] with arrival time documented in this encounter [facility] Work Phone: 06-11-2023 Plan of care note [...] well as elevating limb and applying ice. [facility] 06-11-2023 Consult note Formatting of th is [...] Cirrhosis (CMS/HCC), COPD (chronic obstructive pulmonary disease) ([facility]), Depression, Diabetes mellitus ([facility]), Fall (04/01/2022), GERD (gastroesophageal reflux disease), H/O [...] not medically cleared for discharge JYOTHI John [facility] Work Phone: 06-11-2023 Consult note Formatting of [...] a past medical history of Anxiety, Cirrhosis ([facility]), COPD (chronic obstructive pulmonary disease) ([facility]), Depression, Diabetes mellitus ([facility]), Fall (04/01/2022), GERD (gastroesophageal reflux disease), H/O [...] discharge JYOTHI John documented in this encounter [facility] Work Phone: 06-11-2023 Plan of care note [...] Progressing Goal: Promote skin healing Outcome: Progressing [facility] 06-10-2023 History and physical note History Of [...] Past Medical History: Diagnosis Date Anxiety Cirrhosis ([facility]) COPD (chronic obstructive pulmonary disease) ([facility]) Depression Diabetes mellitus ([facility]) Fall 04/01/2022 Comment on above: FALL GERD (gastroesophageal reflux disease) H/O mammogram 2021 2021-NORMAL- [facility] Hyperlipidemia Hypertension Hypothyroidism Influenza vaccination declined 11/2021 Pap smear for cervical cancer screening 02/2022- NORMAL- DONE AT [address] [place] [address] Surgical History Past Surgical History: Procedure Laterality Date COLONOSCOPY 2020 [facility] - NORMAL REPEAT IN 10 YEARS [...] of this pleasant patient Jasmyne Soliz MD [facility] Work Phone: 06-10-2023 History and physical note [...] Cirrhosis (CMS/HCC) COPD (chronic obstructive pulmonary disease) ([facility]/HCC) Depression Diabetes mellitus (CMS/HCC) Fall 04/01/2022 Comment on above: FALL GERD (gastroesophageal reflux disease) H/O mammogram 2021 2021-NORMAL- [facility] Hyperlipidemia Hypertension Hypothyroidism Influenza vaccination declined 11/2021 Pap smear for cervical cancer screening 02/2022- NORMAL- DONE AT [address] [place] [address] Surgical History Past Surgical History: Procedure Laterality Date COLONOSCOPY 2020 [facility] - NORMAL REPEAT IN 10 YEARS [...] on above: FALL H/O mammogram 2021 2021-NORMAL- [facility] Influenza vaccination declined 11/2021 Pap smear for cervical cancer screening 02/2022- NORMAL- DONE AT [address] [place] [address] Surgical History Past Surgical History: Procedure Laterality Date COLONOSCOPY 2020 [facility] - NORMAL REPEAT IN 10 YEARS OOPHORECTOMY [...] document was dictated and electronically signed using Daqi software. A reasonable attempt at proof reading was made to minimize errors. Please call with any questions. Barney Prieto MD documented in this encounter [facility] Work Phone: 06-10-2023 Hospital Discharge instructions Karen Ewing, CASE MAKER-DEMO COORDINATOR - 06/10/2023 6:25 PM EST Images from [...] have been received Discharge: Discharge home with [facility] Resume home meds Follow-up with PCP as needed Follow-up with Dr. Styles as scheduled Thank you for allowing [facility] to participate in your care. Return to the ER if symptoms worsen documented in this encounter [facility] Work Phone: 06-10-2023 Plan of care note [...] The clinical goals for the shift include [facility] Work Phone: 06-10-2023 Note Formatting of this n ote is different from the original. Arthroplasty Total Knee (L) Operative Note Date: 06/10/2023 OR Location: [facility] OR Name: Janelle Pickett, : 1955, Age: 67 y.o., , Sex: female Diagnosis Pre-op Diagnosis * Arthritis of left knee [M17.12] Post-op Diagnosis * Arthritis of left knee [M17.12] Procedures Arthroplasty Total Knee 18962 - NC ARTHRP KNE CONDYLE&PLATU MEDIAL&LAT COMPARTMENTS Surgeons * Fredy Styles - Primary Resident/Fellow/Other Cellular Plastics Cutter: Surgeon(s) and Role: Procedure Summary Anesthesia: Consult [...] 950 mL Specimen: No specimens collected Staff: Microscopist: Umu Moss RN Scrub Person: Devyn Scales Drains and/or Catheters: * None in log * Tourniquet Times: Total Tourniquet Time Documented: Thigh (Left) - 49 minutes Total: Thigh (Left) - 49 minutes Implants: Implants Type Name Action Serial No. Other SURGICAL SIMPLEX P BONE CEMENT Implanted NA Joint PATELLA, TRIATHLON, ASYMMETRIC X3, SZ-A29 9MM - [id number] Implanted Joint FEM COMP, TRIATH CR SZ4 LEFT - [id number] Implanted 10MM TRIATHLON CS TIBIAL INSERT - X3 Implanted Joint PLATE, TIBIAL TRIATH VIPUL ILA FXD BPLT P4 - [id number] Implanted Findings: Osteoarthrosis left knee Indications: Janelle [...] I debrided any excess cement with a [place] elevator. Next I impacted the femoral component into place and debrided any excess cement with a [place] elevator with the assistance of the PA. [...] An Aquacel dressing was applied. The physician assistant floor covering printer was present for the entire case. Given the nature of the procedure and disease process a skilled regional vice president surgical sales was necessary for the case. The assistant floor covering printer was necessary for retraction and helped directly facilitate completion of the surgery. A certified residential medication aide was at the back table managing instruments and supplies for the surgical procedure. Complications: None; patient tolerated the procedure well. Disposition: PACU - hemodynamically stable. Condition: stable Additional Details: Not applicable Attending Attestation: I performed the procedure. Fredy Styles [facility] Work Phone: 06-10-2023 Attending History and physical [...] Medical History Past Medical History: Diagnosis Date fall04/01/2022 Comment on above: FALL H/O mammogram 2021 2021-NORMAL- [facility] Influenza vaccination declined 11/2021 Pap smear for cervical cancer screening 02/2022- NORMAL- DONE AT [address] [place] [address] Surgical History Past Surgical History: Procedure Laterality Date COLONOSCOPY 2020 [facility] - NORMAL REPEAT IN 10 YEARS [...] document was dictated and electronically signed using Ideagen Speaking software. A reasonable attempt at proof reading was made to minimize errors. Please call with any questions. Barney Prieto MD [facility] Work Phone: 06-03-2023 Miscellaneous Notes Discharge instructions reviewed by Faviola Hagan RN no questions and verbalized understanding. Pt discharged amb to exit steady gait, to be driven home by family benson well Date: 06/03/2023 OR Location: [facility] OR Name: Janelle Pickett : 1955 [...] fashion. Using fluoroscopy with assistance of the optical fabrication technician: The L5-S1 level was identified. The skin and underlying tissue was anesthetized with 5 mL of 1% lidocaine. Using both AP and lateral views with fluoroscopy a 3.5 inch number 18-gauge Touhy needle was placed into the L5-S1 epidural space using the dsbm-yv-fxzzlgoyqv technique without complication. There is no blood [...] Barney Prieto MD documented in this encounter [facility] Work Phone: 06-03-2023 Note Formatting of this n ote might be different from the original. Discharge instructions reviewed by Faviola Hagan RN no questions and verbalized understanding. Pt discharged amb to exit steady gait, to be driven home by family benson well [facility] 06-03-2023 Note Formatting of this n ote might be different from the original. Discharge instructions reviewed by Faviola Hagan RN no questions and verbalized understanding. Pt discharged amb to exit steady gait, to be driven home by family benson well [facility] 06-03-2023 History and physical note History Of Present Illness Janelle Pickett is a 67 y.o. female presenting with low back pain and bilateral leg pain with bilateral foraminal stenosis noted at the L5-S1 level on her previous lumbar MRI.. Past Medical History Past Medical History: Diagnosis Date Fall 04/01/2022 Comment on above: FALL H/O mammogram 2021 2021-NORMAL- [facility] Influenza vaccination declined 11/2021 Pap smear for cervical cancer screening 02/2022- NORMAL- DONE AT [address] [place] [address] Surgical History Past Surgical History: Procedure Laterality Date COLONOSCOPY 2020 [facility] - NORMAL REPEAT IN 10 YEARS [...] document was dictated and electronically signed using Daqi software. A reasonable attempt at proof reading was made to minimize errors. Please call with any questions. Barney Prieto MD [facility] Work Phone: 06-03-2023 History and physical note History Of Present Illness Janelle Pickett is a 67 y.o. female presenting with low back pain and bilateral leg pain with bilateral foraminal stenosis noted at the L5-S1 level on her previous lumbar MRI.. Past Medical History Past Medical History: Diagnosis Date Fall 04/01/2022 Comment on above: FALL H/O mammogram 2021 2021-NORMAL- [facility] Influenza vaccination declined 11/2021 Pap smear for cervical cancer screening 02/2022- NORMAL- DONE AT [address] [place] [address] Surgical History Past Surgical History: Procedure Laterality Date COLONOSCOPY 2020 [facility] - NORMAL REPEAT IN 10 YEARS [...] document was dictated and electronically signed using Daqi software. A reasonable attempt at proof reading was made to minimize errors. Please call with any questions. Barney Prieto MD documented in this encounter [facility] Work Phone: 06-03-2023 Note Formatting of this n ote is different from the original. Date: 06/03/2023 OR Location: [facility] OR Name: Janelle Pickett : 1955 [...] fashion. Using fluoroscopy with assistance of the optical fabrication technician: The L5-S1 level was identified. The skin and underlying tissue was anesthetized with 5 mL of 1% lidocaine. Using both AP and lateral views with fluoroscopy a 3.5 inch number 18-gauge Touhy needle was placed into the L5-S1 epidural space using the ygul-do-wxmseboaxk technique without complication. There is no blood [...] Condition: stable Additional Details: Barney Prieto MD [facility] Work Phone: 06-03-2023 Note Formatting of this n ote is different from the original. Date: 06/03/2023 OR Location: [facility] OR Name: Janelle Pickett : 1955 [...] fashion. Using fluoroscopy with assistance of the optical fabrication technician: The L5-S1 level was identified. The skin and underlying tissue was anesthetized with 5 mL of 1% lidocaine. Using both AP and lateral views with fluoroscopy a 3.5 inch number 18-gauge Touhy needle was placed into the L5-S1 epidural space using the vnbc-fm-ymlvvtybeg technique without complication. There is no blood [...] Condition: stable Additional Details: Barney Prieto MD [facility] Work Phone: 06-03-2023 Note Formatting of this [...] call day before surgery with arrival time [facility] 06-01-2023 History of Present illness Narrative Subjective [...] PAIN TODAY IS 7/10, ORT=1, PAULIE=56% Micheline Bui CMA 07/06/23 8:53 AM Patient is a 67-year-old [...] with the positioning. documented in this encounter [facility] Work Phone: 05-30-2023 Hospital Discharge instructions Ryan Mehta MD - 05/30/2023 10:28 PM EST You have an ultrasound of your left leg scheduled for 7:30 AM tomorrow morning. If you cannot make that call and reschedule for later the same day. documented in this encounter [facility] Work Phone: 05-30-2023 Emergency department Note Images [...] on above: FALL H/O mammogram 2021 2021-NORMAL- [facility] Influenza vaccination declined 11/2021 Pap smear for cervical cancer screening 02/2022- NORMAL- DONE AT [address] [place] [address] Past Surgical History: Procedure Laterality Date COLONOSCOPY 2020 [facility] - NORMAL REPEAT IN 10 YEARS [...] Mehta MD 05/30/232228 documented in this encounter [facility] Work Phone: 05-30-2023 Physician Emergency department Note [...] on above: FALL H/O mammogram 2021 2021-NORMAL- [facility] Influenza vaccination declined 11/2021 Pap smear for cervical cancer screening 02/2022- NORMAL- DONE AT [address] [place] [address] Past Surgical History: Procedure Laterality Date COLONOSCOPY 2020 [facility] - NORMAL REPEAT IN 10 YEARS [...] ED Course & MDM Diagnoses as of 05/30/23 2936 Left leg pain Medical Decision Making Patient [...] tachypnea. Procedure Procedures Ryan Mehta MD 05/30/232228 [facility] Work Phone: 05-30-2023 Evaluation + Plan note Associated Problem(s): Diabetes mellitus with stage 3 chronic kidney disease (CMS/[facility]) Last Visit Summary: Clarified insulin and Ozempic [...] made to medication regimen at this time [facility] Work Phone: 05-30-2023 Miscellaneous Notes Associated Problem(s): Diabetes mellitus with stage 3 chronic kidney disease ([facility]) Last Visit Summary: Clarified insulin and Ozempic [...] at this time documented in this encounter [facility] Work Phone: 05-30-2023 History of Present illness [...] confusion. Subjective Allergies Allergen Reactions Gemfibrozil Other [facility] - [place], [place] - [address] [facility]] [address] [facility] [address] [facility] - [address] [address] Social History Social History Narrative Not on [...] 2 times a day. 300 strip 3 sfjtwpkgiy-oybdhpnw-ykikkweqri (Breztri Aerosphere) 160-9-4.8 mcg/actuation HFA aerosol inhaler [...] capsule 3 ergocalciferol (Vitamin D-2) 1.25 MG (19086 UT) capsule Take 1 cap twice weekly [...] This Visit COPD (chronic obstructive pulmonary disease) ([facility]) Diabetes mellitus with stage 3 chronic kidney disease ([facility]) Last Visit Summary: Clarified insulin and Ozempic [...] at any time. documented in this encounter [facility] Work Phone: 05-25-2023 History of Present illness [...] Labs - not done FU cardio concerns [facility] 04/13/23 through 04/14/23 Tachycardia, SOB, COPD exacerbation - discharged on zpack Cardio recommended losartan 25 and lorpressor 50 bid but never started as her heart rate normalized in the hosp Discussed follow up for further eval of TSH (elevated), monitor BP, HR and follow up with ortho as scheduled- scheduled to see S edi 04/18/23 Echo done Apr 13, 2023 Venous [...] few years - prior cardio was in [place] - Dr nalyor - arterial doppler has been done in [...] cirrhosis of the Liver - denies seeing grand scribe in the past - denies alcohol current [...] 2023 DEXA- MAY 2023 - WNl Colonoscopy [place] 2020 - norm repeat in 10 year [...] PA-C as PCP - General Shadia Daley APRN-EVERAROD as PCP - O Medicare Advantage PCP Gretel Fischer CMA as Proposal Development Manager (Case Management) Review of Systems Constitutional: Positive [...] Items Addressed This Visit Cirrhosis of liver (CMS/HCC) COPD (chronic obstructive pulmonary disease) (CMS/HCC) Depression, major, recurrent, moderate (CMS/HCC) Hypertension associated with diabetes (CMS/HCC) Diabetes mellitus with stage 3 chronic kidney disease (CMS/HCC) Relevant Medications pen needle, diabetic (BD Ultra-Fine [...] of 40.0 to 44.9 in adult (CMS/HCC) Arthritis of left knee Adenoma of right adrenal gland Other Visit Diagnoses Medicare annual wellness visit, subsequent - Primary Routine general medical examination at [facility] [place] [facility] facility Advanced care planning/counseling discussion FU after 02 testing Previously ordered overnight and 6 min walk - I am not sure if order still active - I want her to have done given her history of hypoxia, fatigue, SOB FU in 3 mo with labs at [facility] fasting and med check documented in this encounter [facility] Work Phone: 05-20-2023 History of Present illness [...] on above: FALL H/O mammogram 2021 2021-NORMAL- [facility] Influenza vaccination declined 11/2021 Pap smear for cervical cancer screening 02/2022- NORMAL- DONE AT [address] [place] [address] Medication Documentation Review Audit Reviewed by JYOTHI Whitten (Nurse Practitioner) on 05/09/23 at 0759 Medication Order Taking? Sig Documenting Provider Last Dose Status albuterol 90 mcg/actuation inhaler [id number] No Inhale 2 puffs every 6 hours if needed for wheezing or shortness of breath. Historical ProviderMD Taking Active atorvastatin (Lipitor) 20 mg tablet [id number] No Take 1 tablet (20 mg) by mouth once daily. Callie Mcdonough PA-C Taking Active Autolet lancing device [id number] No 1 each if needed. Use as instructed Historical ProviderMD Taking Active blood sugar diagnostic ([employer] Verio test strips) strip [id number] No 1 each 2 times a day. Callie Mcdonough PA-C Taking Active vzhwfxotgu-rqzaiwti-pyjyuwijqz (Breztri Aerosphere) 160-9-4.8 mcg/actuation HFA aerosol inhaler [id number] No Inhale 2 puffs 2 times a day. Callie Mcdonough PA-C Taking Active Discontinued 05/03/23 1319 citalopram (CeleXA) 40 mg tablet [id number] No Take 1 tablet (40 mg) by mouth once daily. Callie Mcdonough PA-C Taking Active cyanocobalamin (Vitamin B-12) 1,000 mcg tablet [id number] No Take 1 tablet (1,000 mcg) by mouth every other day. Callie Mcdonough PA-C Taking Active cyclobenzaprine (Flexeril) 10 mg tablet [id number] No Take 1 tablet (10 mg) by mouth 3 times a day as needed for muscle spasms. Historical Provider, Taking Active diclofenac sodium (Voltaren) 1 % gel gel [id number] No once daily. Historical Provider, Taking Active dicyclomine (Bentyl) 20 mg tablet [id number] No Take 1 tablet (20 mg) by mouth 4 times a day as needed (Abd pain). Callie Mcdonough PA-C Taking Active docusate sodium (Colace) 100 mg capsule [id number] No Take 1 capsule (100 mg) by mouth 2 times a day as needed for constipation. Callie Mcdonough PA-C Taking Active DULoxetine (Cymbalta) [address] capsule [id number] No Take 1 capsule (20 mg) by mouth once daily. Callie Mcdonough PA-C Taking Active ergocalciferol (Vitamin D-2) 1.25 MG (17956 UT) capsule [id number] No Take 1 cap twice weekly (on separate days) Callie Mcdonough PA-C Taking Active FreeStyle glucose monitoring kit [id number] No 1 each 2 times a day as needed (hyperglycemia and hypoglycemia symptoms). Callie Mcdonough PA-C Taking Active gabapentin (Neurontin) 600 mg tablet [id number] No Take 1 tablet (600 mg) by mouth 3 times a day. Kelly Carrasco PA-C Taking Active ibuprofen 600 mg tablet [id number] No Take 1 tablet (600 mg) by mouth every 6 hours if needed. Historical Provider, Taking Active insulin glargine (Lantus Solostar U-100 Insulin) 100 unit/mL (3 mL) pen [id number] No Inject 40 units Subcutaneously BID Callie Mcdonough PA-C Taking Active insulin glargine (Lantus) 100 unit/mL (3 mL) pen [id number] No Inject 40 Units under the skin 2 times a day. Take as directed per insulin instructions. Callie Mcdonough PA-C Taking Active ipratropium-albuteroL (Duo-Neb) 0.5-2.5 mg/3 mL nebulizer solution [id number] No Inhale. Use 1 unit dose in nebulizer every 4 hours as needed Historical Provider, Taking Active lancets (OneTouch Delica Plus Lancet) 33 gauge [facility] [id number] No 1 each 2 times a day. Callie Mcdonough PA-C Taking Active levothyroxine (Synthroid, Levoxyl) 50 mcg tablet [id number] No Take 1 tablet (50 mcg) by mouth once daily. Callie Mcdonough PA-C Taking Active linaCLOtide (Linzess) 145 mcg capsule [id number] No Take 1 capsule (145 mcg) by mouth once daily in the morning. Take before meals. Callie Mcdonough PA-C Taking Active magnesium oxide (Mag-Ox) 400 mg tablet [id number] No Take 1 tablet (400 mg) by mouth 3 times a day. Callie Mcdonough PA-C Taking Differently Active methocarbamol (Robaxin) 500 mg tablet [id number] No Take 1 tablet (500 mg) by mouth 3 times a day as needed for muscle spasms. Kelly Carrasco PA-C Taking Active metoprolol tartrate (Lopressor) 50 mg tablet [id number] No Take 1 tablet by mouth 2 times a day. Callie Mcdonough PA-C Taking Active montelukast (Singulair) 10 mg tablet [id number] No Take 1 tablet (10 mg) by mouth once daily at bedtime. Callie Mcdonough PA-C Taking Active nebulizers misc [id number] No 1 each. Historical Provider, Taking Active nystatin (Mycostatin) 100,000 unit/gram powder [id number] No Apply topically 2 times a day. Historical Provider, Not Taking Active nystatin (Mycostatin) 100,000 unit/gram powder [id number] No Apply 1 Application topically 3 times a day. JYOTHI Burrell Taking Active omeprazole (PriLOSEC) [address] capsule [id number] No Take 1 capsule (40 mg) by mouth once daily in the morning. Take before meals. Callie Mcdonough PA-C Taking Active ondansetron ODT (Zofran-ODT) 4 mg disintegrating tablet [id number] No Take 1 tablet (4 mg) by mouth every 4 hours if needed for nausea or vomiting. Historical Provider, Taking Active pen needle, diabetic (BD Ultra-Fine Short Pen Needle) 31 gauge x 5/16 needle [id number] No USE DIRECTED Callie Mcdonough PA-C Taking Active potassium chloride CR (Klor-Con) 10 mEq ER tablet [id number] No Take 1 tablet (10 mEq) by mouth once daily. Historical Provider, Taking Active promethazine (Phenergan) 25 mg tablet [id number] No Take 1 tablet (25 mg) by mouth every 8 hours if needed for nausea or vomiting. Callie Mcdonough PA-C Taking Active semaglutide 2 mg/dose (8 mg/3 mL) pen injector [id number] No Inject 2 mg under the skin 1 (one) time per week. Callie B Sharonda, PA-C Taking Active semaglutide 2 mg/dose (8 mg/3 mL) pen injector [id number] No Inject 2 mg under the skin 1 (one) time per week. Callie Mcdonough PA-C Taking Active sertraline (Zoloft) 50 mg tablet [id number] No Take 1 tablet (50 mg) by mouth once daily. Callie Mcdonough PA-C Taking Active tiotropium (Spiriva with HandiHaler) 18 mcg inhalation capsule [id number] No Place 1 capsule (18 mcg) into inhaler and inhale once daily. Historical Provider, Taking Active tiZANidine (Zanaflex) 4 mg tablet [id number] No 1 tablet (4 mg) every 6 hours if needed. Historical Provider, Not Taking Active traZODone (Desyrel) 100 mg tablet [id number] No Take 1 tablet (100 mg) by [...] Surgical History: Procedure Laterality Date COLONOSCOPY 2020 [facility] - NORMAL REPEAT IN 10 YEARS [...] Phone Pager Sharyn Carranza MD 04/04/2023 12:31 13301 Exam Information Status Exam Begun Exam Ended Final 04/04/2023 12:18 04/04/2023 12:22 Study Result Narrative & Impression Interpreted By: Sharyn Carranza, STUDY: XR KNEE LEFT 4+ VIEWS; ; 04/04/2023 12:22 pm INDICATION: Signs/Symptoms:knee pain. COMPARISON: None. ACCESSION NUMBER(S): [id number] ORDERING CLINICIAN: BALBIR TAVARES FINDINGS: Minimal medial compartment narrowing. No acute fracture dislocation or bone lesion. No joint effusion. IMPRESSION: No acute findings. MACRO: None Signed by: Sharyn Carranza 04/04/2023 12:31 PM Dictation workstation: [id number] Assessment Patient with known osteoarthritis of the [...] any additional concerns. documented in this encounter [facility] Work Phone: 05-09-2023 Evaluation + Plan note Associated Problem(s): Diabetes mellitus with stage 3 chronic kidney disease (CMS/HCC) Assessment: Current DM Medication Regimen: Lantus Solostar 100units/mL pen Patient reports using 45 units BID Per Aleksey Montano at [facility], last filled on 04/28 for [...] current Ozempic dose for now Apply for [facility] Necessary forms will be mailed to patient to fill out Reviewed that patient will need to fill her medications during the interim period Follow-up in 3 weeks to assess progress of application [facility] Work Phone: 05-09-2023 Miscellaneous Notes Associated Problem(s): Diabetes mellitus with stage 3 chronic kidney disease (CMS/HCC) Assessment: Current DM Medication Regimen: Lantus Solostar 100units/mL pen Patient reports using 45 units BID Per Aleksey Montano at [facility], last filled on 04/28 for [...] Associated Problem(s): COPD (chronic obstructive pulmonary disease) ([facility]) Assessment: Current COPD Medication Regimen: Breztri 160-9-4.8mcg/act [...] progress of application documented in this encounter [facility] Work Phone: 05-09-2023 Evaluation + Plan note Associated Problem(s): COPD (chronic obstructive pulmonary disease) ([facility]) Assessment: Current COPD Medication Regimen: Breztri 160-9-4.8mcg/act [...] 3 weeks to assess progress of application [facility] Work Phone: 05-09-2023 Evaluation + Plan note [...] of care. This note was generated using The Orange Chef software. It may contain errors in wording, punctuation or spelling. [facility] Work Phone: 05-09-2023 Miscellaneous Notes Associated Problem(s): [...] of care. This note was generated using The Orange Chef software. It may contain errors in wording, punctuation or spelling. documented in this encounter [facility] Work Phone: 05-09-2023 History of Present illness [...] Subjective Allergies Allergen Reactions Gemfibrozil Other abd cramps [facility] - [place], [place] - [address] [facility]] [address] [facility] [address] [facility] - [place], [place] - [address] [facility] [address] Social History Social History Narrative Not on [...] needed. Use as instructed blood sugar diagnostic (CipherOpticsuch Verio test strips) strip 1 each 2 times a day. 300 strip 3 edfncpkbjt-hynqxvir-jvmyfhmgpr (Breztri Aerosphere) 160-9-4.8 mcg/actuation HFA aerosol inhaler [...] capsule 3 ergocalciferol (Vitamin D-2) 1.25 MG (31537 UT) capsule Take 1 cap twice weekly [...] nebulizer every 4 hours as needed lancets ([employer] [facility] Plus Lancet) 33 gauge misc 1 each [...] by mouth 2 times a day. FROM PROGRAM DEVELOPMENT SPECIALIST GAIL JAC [address] [place] [address] No current facility-administered medications on file prior to visit. HISTORICAL PHARMACOTHERAPY -Albuterol Rescue Inhaler -Spiriva Handihaler -Breztri Aerosphere -DuoNebs Nebulization Solution -Advair Inhaler DRUG INTERATIONS - Breztri+ DuoNebs+ Spirva Handihaler= X Interaction (duplicate anticholinergic therapy) Assessment/Plan Problem List Items Addressed This Visit COPD (chronic obstructive pulmonary disease) ([facility]) - Primary Assessment: Current COPD Medication Regimen: [...] mellitus with stage 3 chronic kidney disease ([facility]/HCC) Assessment: Current DM Medication Regimen: Lantus Solostar 100units/mL pen Patient reports using 45 units BID Per Dusty, Aleksey at [facility], last filled on 04/28 for 61 units [...] current Ozempic dose for now Apply for [facility] Necessary forms will [...] at any time. documented in this encounter [facility] Work Phone: 05-09-2023 History of Present illness Narrative Subjective Patient [...] Assessment/Plan Encounter Diagnoses: documented in this encounter [facility] Work Phone: 04-28-2023 History of Present illness [...] Signed by Signed Time Phone Pager Daiana Edwards DO 11/20/2021 08:14 [id number] Exam Information Status Exam Begun Exam Ended [...] COMPARISON: Radiographs November 16, 2021 ACCESSION NUMBER(S): [id number] ORDERING CLINICIAN: KELLY CARRASCO TECHNIQUE: Sagittal T1, [...] adrenal lesion, incompletely included on the obtained tmmzf-qf-vtew. CT washout study or MRI with in and out of phase imaging is recommended for evaluation. A Yellow Alert message was sent to the referring physician Dr. KELLY CARRASCO through the TellApart system at 8:14 am on 11/20/2021 by [...] to the pharmacy. documented in this encounter [facility] Work Phone: 04-28-2023 Instructions Faviola Hughes RN - 04/28/2023 8:45 AM EST Injection education completed written and verbally. documented in this encounter [facility] Work Phone: 04-14-2023 Nurse Note Discharge Note: [...] with pt and verbalizes understanding. Jonathan MOSQUEDA [facility] 04-14-2023 Nurse Note Discharge Note: 04/14/20221310 Discharge [...] understanding. Jonathan MOSQUEDA documented in this encounter [facility] Work Phone: 04-14-2023 Hospital course Narrative Discharge [...] by mouth once daily. Autolet lancing device Breztri Aerosphere 160-9-4.8 mcg/actuation HFA aerosol inhaler Generic drug: zqzhfplazx-nrfhsbbz-ngvommwqxb Inhale 2 puffs 2 times a day. [...] by mouth once daily. ergocalciferol 1.25 MG (65254 UT) capsule Commonly known as: Vitamin D-2 [...] Your Medications These medications were sent to [facility] [place] [address] azithromycin 500 mg tablet Test Results Pending At Discharge Pending Labs No current pending labs. Hospital Course Janelle Pickett is a 67 y.o. female [...] for naproxen and Advair. E scribed to [facility] pharmacy Zithromax 500 mg daily x [...] Department Center 04/19/2023 9:00 AM JYOTHI Whitten [id number] [facility] 04/21/2023 10:15 AM Kane Kilgore DO [id number] [facility] 04/25/2023 9:00 AM MARIAH [id number] MAMMO [id number] [facility] 04/25/2023 9:50 AM MARIAH [id number] DXA [id number] [facility] 04/28/2023 8:45 AM Kelly Carrasco PA-C [id number] [facility] 05/09/2023 8:00 AM JYOTHI Whitten [id number] [facility] 05/25/2023 9:20 AM Callie Mcdonough PA-C [id number] [facility] JYOTHI Burrell documented in this encounter [facility] Work Phone: 04-14-2023 Hospital Discharge instructions JYOTHI Burrell - 04/14/2023 11:48 AM EST Discharge: Discharge home Resume home meds. Stop advair and naproxen Escribed to [facility] pharmacy Zithromax 500 mg daily x 2 days start in a.m. Follow-up with PCP 1 week Keep existing appointment with orthopedics Follow-up cardiology as needed Recommend monitoring blood pressure at home daily and record along with heart rates. Take this information with you to your follow-up appoint with your PCP Thank you for allowing [facility] to participate in your care. Return to [...] Check with your doctor before taking any swnj-tfo-txakzoh drugs, nutritional supplements, or cold and allergy [...] You should avoid alcohol, energy drinks, and hbyy-lqt-bcuxskw stimulants. Learn to manage stress. Use relaxation methods like reflection, deep breathing, and muscle relaxation. Things like yoga and ramirez chi are also good. When do I need to call the doctor? Activate the emergency medical system right away if you have signs of a heart attack or stroke. Call 911 in the [place] or [place]. The sooner treatment begins, [...] Reviewed Date 2021-02-13 documented in this encounter [facility] Work Phone: 04-13-2023 History and physical note [...] on above: FALL H/O mammogram 2021 2021-NORMAL- [facility] Influenza vaccination declined 11/2021 Pap smear for cervical cancer screening 02/2022- NORMAL- DONE AT [address] [place] [address] Surgical History Past Surgical History: Procedure Laterality Date COLONOSCOPY 2020 [facility] - NORMAL REPEAT IN 10 YEARS OOPHORECTOMY [...] Rate 152 BPM Atrial Rate 152 BPM NC Interval 124 ms QRS Duration 60 ms QT Interval 258 ms QTC Calculation(Bazett) 410 ms P [place] 265 degrees R [place] 33 degrees T [place] 83 degrees QRS Count 25 beats Q [...] left Result Date: 04/13/2023 [place] [address] ext-[id number], Preliminary Vascular Lab Report [facility] LOWER EXTREMITY VENOUS DUPLEX LEFT Patient Name: JANELLE PICKETT [place] [id number] [address] Hannah Physician: Study Date: 04/13/2023 Ordering [id number] WILLA DEL CASTILLO Provider: MRN/PID: [id number] Fellow: Technologist: Desi Chen RVT Date of : 1955 Technologist 2: Gender: F Admission Inpatient Location [facility] Status: Performed: Diagnosis/ICD: Pain in left leg-M79.605 Indication: Limb pain. CPT Codes: 14392 Peripheral venous duplex scan for DVT Limited [...] PE. COMPARISON: CTA chest 04/04/2023. ACCESSION NUMBER(S): [id number] ORDERING CLINICIAN: RYAN MEHTA TECHNIQUE: CTA of [...] breast tissue is not included within the uxbdb-ak-dcge in its entirety. Previously described bronchial wall [...] Date: 04/13/2023 Unusual P axis and short NC, probable junctional tachycardia Nonspecific T wave abnormality [...] of this patient. Willa Del Castillo PA-C [facility] Work Phone: 04-13-2023 History and physical note [...] on above: FALL H/O mammogram 2021 2021-NORMAL- [facility] Influenza vaccination declined 11/2021 Pap smear for cervical cancer screening 02/2022- NORMAL- DONE AT [address] [place] [address] Surgical History Past Surgical History: Procedure Laterality Date COLONOSCOPY 2020 [facility] - NORMAL REPEAT IN 10 YEARS OOPHORECTOMY [...] Rate 152 BPM Atrial Rate 152 BPM NC Interval 124 ms QRS Duration 60 ms QT Interval 258 ms QTC Calculation(Bazett) 410 ms P [place] 265 degrees R [place] 33 degrees T [place] 83 degrees QRS Count 25 beats Q [...] left Result Date: 04/13/2023 [place] [address] ext-[id number], Preliminary Vascular Lab Report [facility] US LOWER EXTREMITY VENOUS DUPLEX LEFT Patient Name: JANELLE PICKETT [place] [id number] [address] Hannah Physician: Study Date: 04/13/2023 Ordering [id number] WILLA DEL CASTILLO Provider: MRN/PID: [id number] Fellow: Technologist: Desi Chen RVT Date of : 1955 Technologist 2: Gender: F Admission Inpatient Location [facility] Status: Performed: Diagnosis/ICD: Pain in left leg-M79.605 Indication: Limb pain. CPT Codes: 38569 Peripheral venous duplex scan for DVT Limited [...] PE. COMPARISON: CTA chest 04/04/2023. ACCESSION NUMBER(S): [id number] ORDERING CLINICIAN: RYAN MEHTA TECHNIQUE: CTA of [...] breast tissue is not included within the kzmvt-mt-rrsu in its entirety. Previously described bronchial wall [...] Date: 04/13/2023 Unusual P axis and short NC, probable junctional tachycardia Nonspecific T wave abnormality [...] Del Castillo PA-C documented in this encounter [facility] Work Phone: 04-13-2023 History of Present illness [...] place to sleep or slept in a residential (including now)? N Transportation Needs In the [...] last month and pharmacy of choice is [facility]. Pt is independent and lives alone and [...] Edyta Gutiérrez BSN/RN-TCC documented in this encounter [facility] Work Phone: 04-13-2023 Consult note Associated Order (s): Inpatient consult to Cardiology; Inpatient consult to Cardiology Inpatient consult to Cardiology Consult performed by: JYOTHI Del Rio, YASMINE Consult ordered by: Willa Del Castillo PA-C Inpatient consult to Cardiology Consult performed by: JYOTHI Del Rio, YASMINE Consult ordered by: Daniela Up MD History [...] 13-18 <7.5 7-12 <8.0 0- 6 7.5-8.5 [employer]. Diabetes Care 33(S1), Apr 2009. 07/16/2022 08:10 AM 7.6 (A) % Final Comment: Diagnosis of Diabetes-Adults Non-Diabetic: < or = 5.6% Increased risk for developing diabetes: 5.7-6.4% Diagnostic of diabetes: > or = 6.5% . Monitoring of Diabetes Age (y) Therapeutic Goal (%) Adults: >18 <7.0 Pediatrics: 13-18 <7.5 7-12 <8.0 0- 6 7.5-8.5 [employer]. Diabetes Care 33(S1), Apr 2009. [...] needed, Use as instructed blood sugar diagnostic (CipherOpticsuch Verio test strips) strip 1 each, miscellaneous, 2 times daily qkqlgutbci-ggrjhufg-tzsovhvrgx (Breztri Aerosphere) 160-9-4.8 mcg/actuation HFA aerosol inhaler 2 puffs, inhalation, 2 times daily RT cilostazol (PLETAL) 50 mg, oral, Daily, FROM [address] citalopram (CELEXA) 40 mg, oral, Daily [...] oral, Daily ergocalciferol (Vitamin D-2) 1.25 MG (76656 UT) capsule Take 1 cap twice weekly (on separate days) fluticasone propion-salmeteroL (Advair HFA) 230-21 mcg/actuation inhaler 2 puffs, inhalation, 2 times daily RT FreeStyle glucose monitoring kit 1 each, miscellaneous, 2 times daily PRN gabapentin (NEURONTIN) 600 mg, oral, 3 times daily HYDROcodone-acetaminophen ([place]) 5-325 mg tablet oral, Every 6 hours PRN ibuprofen 600 mg, oral, Every 6 hours PRN insulin glargine (Lantus Solostar U-100 Insulin) 100 unit/mL (3 mL) pen Inject 40 units Subcutaneously BID ipratropium-albuteroL (Duo-Neb) 0.5-2.5 mg/3 mL nebulizer solution inhalation, Use 1 unit dose in nebulizer every 4 hours as needed lancets ([employer] Delica Plus Lancet) 33 gauge misc 1 [...] Sinus tachycardia: -Patient was previously hospitalized around [place] with elevated heart rate at that time [...] clarifications regarding the patient's care. JYOTHI Del Rio, YASMINE [facility] Work Phone: 04-13-2023 Consult note Associated Order [...] 13-18 <7.5 7-12 <8.0 0- 6 7.5-8.5 [employer]. Diabetes Care 33(S1), Apr 2009. 07/16/2022 08:10 AM 7.6 (A) % Final Comment: Diagnosis of Diabetes-Adults Non-Diabetic: < or = 5.6% Increased risk for developing diabetes: 5.7-6.4% Diagnostic of diabetes: > or = 6.5% . Monitoring of Diabetes Age (y) Therapeutic Goal (%) Adults: >18 <7.0 Pediatrics: 13-18 <7.5 7-12 <8.0 0- 6 7.5-8.5 [employer]. Diabetes Care 33(S1), Apr 2009. [...] needed, Use as instructed blood sugar diagnostic ([employer] Verio test strips) strip 1 each, miscellaneous, 2 times daily ytkzklbili-miprkaxy-enzjywzspz (Breztri Aerosphere) 160-9-4.8 mcg/actuation HFA aerosol inhaler 2 puffs, inhalation, 2 times daily RT cilostazol (PLETAL) 50 mg, oral, Daily, FROM [address] citalopram (CELEXA) 40 mg, oral, Daily [...] oral, Daily ergocalciferol (Vitamin D-2) 1.25 MG (67819 UT) capsule Take 1 cap twice weekly (on separate days) fluticasone propion-salmeteroL (Advair HFA) 230-21 mcg/actuation inhaler 2 puffs, inhalation, 2 times daily RT FreeStyle glucose monitoring kit 1 each, miscellaneous, 2 times daily PRN gabapentin (NEURONTIN) 600 mg, oral, 3 times daily HYDROcodone-acetaminophen ([place]) 5-325 mg tablet oral, Every 6 hours PRN ibuprofen 600 mg, oral, Every 6 hours PRN insulin glargine (Lantus Solostar U-100 Insulin) 100 unit/mL (3 mL) pen Inject 40 units Subcutaneously BID ipratropium-albuteroL (Duo-Neb) 0.5-2.5 mg/3 mL nebulizer solution inhalation, Use 1 unit dose in nebulizer every 4 hours as needed lancets (EndoBiolog[employer] InternationalTouch Delica Plus Lancet) 33 gauge misc 1 [...] Sinus tachycardia: -Patient was previously hospitalized around [place] with elevated heart rate at that time [...] Del Rio DNP documented in this encounter [facility] Work Phone: 04-05-2023 Note Formatting of this [...] to follow-up with PCP in 1 week [facility] Work Phone: 04-05-2023 Miscellaneous Notes Is very [...] elevated at 126 documented in this encounter [facility] Work Phone: 04-05-2023 Nurse Note COPD Education [...] within two weeks of discharge may benefit [facility] 04-05-2023 Nurse Note COPD Education Patient Characteristics: [...] discharge may benefit documented in this encounter [facility] Work Phone: 04-04-2023 History of Present illness Narrative Pt states breathing treatments make her sick. Discussed with Dr. Soliz and treatments to be discontinued. Increased HR. Treatment held. Pt is in no distress and PRN treatment is not needed. RN aware and agrees. documented in this encounter [facility] Work Phone: 04-04-2023 Plan of care note The patient's goals for the shift include The clinical goals for the shift include decrease HR Hr remained elevated at 126 [facility] Work Phone: 04-04-2023 History and physical note History Of Present Illness This is a 67-year-old female presenting to [facility] with a chief complaint of left knee [...] 140s. Patient without a history of CAD, VT or arrhythmia. On further exam by this [...] on above: FALL H/O mammogram 2021 2021-NORMAL- [facility] Influenza vaccination declined 11/2021 Pap smear for cervical cancer screening 02/2022- NORMAL- DONE AT [address] [place] [address] Diabetes mellitus type 2 COPD History of liver cirrhosis ? Versus fatty liver Chronic knee and back pain GERD Depression Vitamin B12 deficiency Vitamin D deficiency Hypothyroidism Hypercholesteremia Obesity History of renal insufficiency Surgical History Past Surgical History: Procedure Laterality Date COLONOSCOPY 2020 [facility] - NORMAL REPEAT IN 10 YEARS [...] Yellow Appearance, Urine Hazy (N) Clear Specific [place], Urine 1.026 1.005 - 1.035 pH, Urine [...] INDICATION: Signs/Symptoms:knee pain. COMPARISON: None. ACCESSION NUMBER(S): [id number] ORDERING CLINICIAN: BALBIR TAVARES FINDINGS: Minimal medial compartment narrowing. No acute fracture dislocation or bone lesion. No joint effusion. No acute findings. MACRO: None Signed by: Sharyn Carranza 04/04/2023 12:31 PM Dictation workstation: [id number] CT angio chest for pulmonary embolism Result Date: 04/04/2023 STUDY: CT Angiogram of the Chest; 04/04/23 at 10:10 AM INDICATION: New onset Afib. Leg pain. COMPARISON: CT AP 10/18/22. Chest XR 09/22/21. 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 There may be spelling and/or grammatical errors that were not corrected prior to final submission [facility] Work Phone: 04-04-2023 History and physical note History Of Present Illness This is a 67-year-old female presenting to [facility] with a chief complaint of left knee [...] 140s. Patient without a history of CAD, VT or arrhythmia. On further exam by this [...] on above: FALL H/O mammogram 2021 2021-NORMAL- [facility] Influenza vaccination declined 11/2021 Pap smear for cervical cancer screening 02/2022- NORMAL- DONE AT [address] [place] [address] Diabetes mellitus type 2 COPD History of liver cirrhosis ? Versus fatty liver Chronic knee and back pain GERD Depression Vitamin B12 deficiency Vitamin D deficiency Hypothyroidism Hypercholesteremia Obesity History of renal insufficiency Surgical History Past Surgical History: Procedure Laterality Date COLONOSCOPY 2020 [facility] - NORMAL REPEAT IN 10 YEARS OOPHORECTOMY [...] Yellow Appearance, Urine Hazy (N) Clear Specific [place], Urine 1.026 1.005 - 1.035 pH, Urine [...] INDICATION: Signs/Symptoms:knee pain. COMPARISON: None. ACCESSION NUMBER(S): [id number] ORDERING CLINICIAN: BALBIR TAVARES FINDINGS: Minimal medial compartment narrowing. No acute fracture dislocation or bone lesion. No joint effusion. No acute findings. MACRO: None Signed by: Sharyn Carranza 04/04/2023 12:31 PM Dictation workstation: [id number] CT angio chest for pulmonary embolism Result Date: 04/04/2023 STUDY: CT Angiogram of the Chest; 04/04/23 at 10:10 AM INDICATION: New onset Afib. Leg pain. COMPARISON: CT AP 10/18/22. Chest XR 09/22/21. 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 There may be spelling and/or grammatical errors that were not corrected prior to final submission documented in this encounter [facility] Work Phone: 04-04-2023 Emergency department Note Associated [...] findings identified. Psychiatric: Appropriate mood and affect. Michael Coma Scale Score: 15 Patient History Past Medical History: Diagnosis Date Fall 04/01/2022 Comment on above: FALL H/O mammogram 2021 2021-NORMAL- [facility] Influenza vaccination declined 11/2021 Pap smear for cervical cancer screening 02/2022- NORMAL- DONE AT [address] [place] [address] Past Surgical History: Procedure Laterality Date COLONOSCOPY 2020 [facility] - NORMAL REPEAT IN 10 YEARS OOPHORECTOMY [...] Urine Yellow Appearance, Urine Hazy (*) Specific [place], Urine 1.026 pH, Urine 5.0 Protein, Urine [...] performed using a different testing methodology at [facility] than at other [facility]. Direct result comparisons should only be [...] Abnormality Status --------- ------ Urinalysis with Reflex C...[[id number]] Abnormal Final result Extra Urine Haley Tube[[id number]] In process Please view results for these tests on the individual orders. EXTRA URINE HALEY TUBE TROPONIN I, HIGH SENSITIVITY TSH WITH REFLEX TO FREE T4 IF ABNORMAL MAGNESIUM SARS-COV-2 PCR, SYMPTOMATIC INFLUENZA A AND B PCR XR knee left 4+ views Final Result No acute findings. MACRO: None Signed by: Sharyn Carranza 04/04/2023 12:31 PM Dictation workstation: [id number] CT angio chest for pulmonary embolism Final [...] ED Physician in the absence of a data coordinator: yes Comments: EKG interpreted by Dr. Balbir Tavares: Sinus tachycardia at a rate of 140 bpm. NC interval 74 ms. QTc of [address] changes. PVC Balbir Tavares DO 04/04/23 1407 Balbir Tavares DO 04/04/23 1430 documented in this encounter [facility] Work Phone: 04-04-2023 Physician Emergency department Note [...] findings identified. Psychiatric: Appropriate mood and affect. Michael Coma Scale Score: 15 Patient History Past Medical History: Diagnosis Date Fall 04/01/2022 Comment on above: FALL H/O mammogram 2021 2021-NORMAL- [facility] Influenza vaccination declined 11/2021 Pap smear for cervical cancer screening 02/2022- NORMAL- DONE AT [address] [place] [address] Past Surgical History: Procedure Laterality Date COLONOSCOPY 2020 [facility] - NORMAL REPEAT IN 10 YEARS [...] Urine Yellow Appearance, Urine Hazy (*) Specific [place], Urine 1.026 pH, Urine 5.0 Protein, Urine [...] performed using a different testing methodology at [facility] than at other [facility]. Direct result comparisons should only be [...] Abnormality Status --------- ------ Urinalysis with Reflex C...[[id number]] Abnormal Final result Extra Urine Haley Tube[[id number]] In process Please view results for these tests on the individual orders. EXTRA URINE HALEY TUBE TROPONIN I, HIGH SENSITIVITY TSH WITH REFLEX TO FREE T4 IF ABNORMAL MAGNESIUM SARS-COV-2 PCR, SYMPTOMATIC INFLUENZA A AND B PCR XR knee left 4+ views Final Result No acute findings. MACRO: None Signed by: Sharyn Carranza 04/04/2023 12:31 PM Dictation workstation: [id number] CT angio chest for pulmonary embolism Final [...] ED Physician in the absence of a data coordinator: yes Comments: EKG interpreted by Dr. Balbir Tavares: Sinus tachycardia at a rate of 140 bpm. NC interval 74 ms. QTc of [address] changes. 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 Use as instructed blood sugar diagnostic (CipherOpticsuch Verio test strips) strip 1 each 2 times a day. 300 strip 3 wwelytoazs-vemosbnj-wwzpiyjrfu (Breztri Aerosphere) 160-9-4.8 mcg/actuation HFA aerosol inhaler Inhale 2 puffs 2 times a day. 10.7 g 5 cilostazol (Pletal) 50 mg tablet Take 1 tablet (50 mg) by mouth once daily. FROM PROGRAM DEVELOPMENT SPECIALIST GAIL JAC [address] [place] [address] citalopram (CeleXA) 40 mg tablet Take 1 [...] capsule 3 ergocalciferol (Vitamin D-2) 1.25 MG (27778 UT) capsule Take 1 cap twice weekly (on separate days) 25 capsule 3 fluticasone propion-salmeteroL (Advair HFA) 230-21 mcg/actuation inhaler Inhale 2 puffs 2 times a day. FreeStyle glucose monitoring kit 1 each 2 times a day as needed (hyperglycemia and hypoglycemia symptoms). 1 each 2 gabapentin (Neurontin) 600 mg tablet Take 1 tablet (600 mg) by mouth 3 times a day. HYDROcodone-acetaminophen ([place]) 5-325 mg tablet Take by mouth every [...] nebulizer every 4 hours as needed lancets (CipherOpticsuch Delica Plus Lancet) 33 gauge misc 1 [...] given her symptoms and phenergan. 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 - was sick and seen [...] done DEXA- schedule - never done Colonoscopy [place] 2020 - norm repeat in 10 year [...] mellitus with stage 3 chronic kidney disease ([facility]/HCC) Chronic constipation Abnormal biliary HIDA scan Gross [...] on above: FALL H/O mammogram 2021 2021-NORMAL- [facility] Influenza vaccination declined 11/2021 Pap smear for cervical cancer screening 02/2022- NORMAL- DONE AT [address] [place] [address] Past Surgical History: Procedure Laterality Date COLONOSCOPY 2020 [facility] - NORMAL REPEAT IN 10 YEARS OOPHORECTOMY [...] (50 mg) by mouth once daily. FROM PROGRAM DEVELOPMENT SPECIALIST GAIL JAC [address] [place] [address] citalopram (CeleXA) 40 mg tablet Take 1 [...] capsule 3 ergocalciferol (Vitamin D-2) 1.25 MG (63094 UT) capsule Take 1 cap twice weekly (on separate days) 25 capsule 3 fluticasone propion-salmeteroL (Advair HFA) 230-21 mcg/actuation inhaler Inhale 2 puffs 2 times a day. FreeStyle glucose monitoring kit 1 each 2 times a day as needed (hyperglycemia and hypoglycemia symptoms). 1 each 2 gabapentin (Neurontin) 600 mg tablet Take 1 tablet (600 mg) by mouth 3 times a day. HYDROcodone-acetaminophen ([place]) 5-325 mg tablet Take by mouth every [...] hours if needed for nausea or vomiting. CipherOpticsuch Ultra Test strip 1 each in the [...] normal. Testing Reviewed labs on file from jan 8.5* Impression MDM 1) COMPLEXITY: 1 OR [...] Visit ICD-10-CM COPD (chronic obstructive pulmonary disease) ([facility]) - Primary J44.9 Relevant Medications predniSONE (Deltasone) 10 mg tablet jldcbqadre-tkmshrsa-wrtnodpwil (Breztri Aerosphere) 160-9-4.8 mcg/actuation HFA aerosol inhaler Other Relevant Orders Pulse oximetry, overnight Pulmonary function testing Hypertension associated with diabetes ([facility]) E11.59, I15.2 Diabetes mellitus with stage 3 chronic kidney disease ([facility]) E11.22, N18.30 Class 2 severe obesity due to excess calories with serious comorbidity and body mass index (BMI) of 39.0 to 39.9 in adult ([facility]) E66.01, Z68.39 Other Visit Diagnoses Codes Abdominal wall abscess L02.211 Relevant Medications silver sulfADIAZINE (Silvadene) 1 % cream Type 2 diabetes mellitus with stage 3a chronic kidney disease, with long-term current use of insulin ([facility]) E11.22, N18.31, Z79.4 Relevant Medications FreeStyle glucose monitoring kit FU in 6 weeks with pulm testing Set up overnight 02 and 6 min walk to be done end of mar /apr documented in this encounter [facility] Work Phone: 02-21-2023 History of Present illness [...] cirrhosis of the Liver - denies seeing grand scribe in the past - denies alcohol current [...] DEXA- schedule July 30- never done Colonoscopy [place] 2020 - norm repeat in 10 year [...] on above: FALL H/O mammogram 2021 2021-NORMAL- [facility] Influenza vaccination declined 11/2021 Pap smear for cervical cancer screening 02/2022- NORMAL- DONE AT [address] [place] [address] Past Surgical History: Procedure Laterality Date COLONOSCOPY 2020 [facility] - NORMAL REPEAT IN 10 YEARS OOPHORECTOMY 10/30/1999 OTHER SURGICAL HISTORY Bilateral MEDIAL BRANCH BLOCK - PETEY BLANCHRAD (PAIN MANAGEMENT) BILAT- L4-S1 MBB OTHER SURGICAL [...] (50 mg) by mouth once daily. FROM PROGRAM DEVELOPMENT SPECIALIST GAIL NATHAN [address] [place] [address] citalopram (CeleXA) 40 mg tablet Take 1 [...] capsule 3 ergocalciferol (Vitamin D-2) 1.25 MG (00576 UT) capsule Take 1 capsule (50,000 Units) [...] by mouth 3 times a day. HYDROcodone-acetaminophen ([place]) 5-325 mg tablet Take by mouth every [...] hours if needed for nausea or vomiting. CipherOpticsuch Ultra Test strip 1 each in the [...] Behavior: Behavior normal. Testing Component Latest Ref Rng 02/07/2023 WBC 4.4 - 11.3 x10*3/uL 7.5 [...] Visit ICD-10-CM COPD (chronic obstructive pulmonary disease) ([facility]) J44.9 Hypertension associated with diabetes ([facility]) E11.59, I15.2 Diabetes mellitus with stage 3 chronic kidney disease ([facility]) E11.22, N18.30 Relevant Medications pen needle, diabetic [...] (BMI) of 40.0 to 44.9 in adult ([facility]) E66.01, Z68.41 Relevant Medications semaglutide 2 mg/dose [...] Relevant Medications ergocalciferol (Vitamin D-2) 1.25 MG (81206 UT) capsule Other Relevant Orders Vitamin D [...] mo with medicare wellness and labs at [facility] fasting and med check Reschedule mammo/DEXA - previously ordered documented in this encounter [facility] Work Phone: 02-07-2023 History of Present illness [...] to verify the correct patient, procedure, equipment, application support technician and site/side marked as required. Patient was [...] of care. This note was generated using [employer] software. It may contain errors in wording, punctuation or spelling. documented in this encounter [facility] Work Phone: 11-27-2022 History of Present illness [...] 1 1/2 years, cortisone no longer effective. [facility] Work Phone: 10-18-2022 History of Present illness Narrative Subjective Patient ID: Janelle Pickett is a 67 y.o. female who presents for Follow-up (C/O ABD PAIN AND BLOATING WORSENING. ABD SWELLS AT NIGHT). HPI GENERALIZED ABDOMINAL PAIN AND BLOATING X SEVERAL MONTHS WHICH IS GRADUALLY GETTING WORSE /10. HAS NAUSEA ON AND OFF. NO CONSTIPATION [...] SENT TO ER. documented in this encounter [facility] Work Phone: 09-17-2022 Note PROCEDURE DETAILS Preoperative Diagnosis: Radiculopathy, lumbar region, M54.16 Postoperative Diagnosis: Radiculopathy, lumbar region, M54.16 Surgeon: Miguel Angelo Resident/Fellow/Other Cellular Plastics Cutter: None of these were associated with this case Procedure: 1. L5-S1 JSOE Anesthesia: No anesthesiologist associated with this case [...] Last Updated: 17-Sep-2022 21:29 by Miguel Angelo) [facility] 09-17-2022 History of Present illness Narrative On [...] gabapentin from her primary care physician [facility] Work Phone: 09-17-2022 Miscellaneous Notes PROCEDURE DETAILS Preoperative Diagnosis: Radiculopathy, lumbar region, M54.16 Postoperative Diagnosis: Radiculopathy, lumbar region, M54.16 Surgeon: Miguel Angelo Resident/Fellow/Other [employer] Cutter: None of these were associated with this [...] Last Updated: 17-Sep-2022 21:29 by Miguel Angelo) documented in this encounter [facility] Work Phone: 09-17-2022 Note Formatting of this n ote is different from the original. PROCEDURE DETAILS Preoperative Diagnosis: Radiculopathy, lumbar region, M54.16 Postoperative Diagnosis: Radiculopathy, lumbar region, M54.16 Surgeon: Miguel Angelo Resident/Fellow/Other Cellular Pl[employer] Cutter: None of these were associated with this [...] Last Updated: 17-Sep-2022 21:29 by Miguel Angelo) [facility] Work Phone: 08-18-2022 History of Present [...] independently moved after the of her to [place] to be closer to family, her sister lives next door. [facility] [address] Work Phone: 07-22-2022 Evaluation + Plan note Associated Problem(s): Degenerative lumbar spinal stenosis Referred back to pain clinic - visit set for end of July [facility] Work Phone: 07-22-2022 Miscellaneous Notes Associated Problem(s): Degenerative lumbar spinal stenosis Referred back to pain clinic - visit set for end july documented in this encounter [facility] Work Phone: 07-22-2022 History of Present illness [...] cirrhosis of the Liver - denies seeing grand scribe in the past - denies alcohol current [...] July 30 DEXA- schedule July 30 Colonoscopy [place] 2020 - norm repeat in 10 year [...] Behavior: Behavior normal. Testing Component Latest Ref [facility] 07/16/2022 WBC 4.4 - 11.3 x10E9/L 6.8 [...] POC Appearance, Urine Clear Clear POC Specific [place], Urine 1.005 - 1.035 1.025 POC PH, [...] 1,052.2 Albumin/Creatine Ratio 0.0 - 30.0 ug/mg neonatal specialist 1,388.1 (H) Creatinine, Urine Random 20.0 - [...] FU in 3-4 mo with labs at [facility] fasting and med check Thyroid - [...] on diflucan Hepatitis - consider referral to grand scribe Time Prep 5 min Directly with patient 50 min Documentation - 5 min Total 60 min documented in this encounter [facility] Work Phone: 07-16-2022 History of Present illness [...] (BMI) of 38.0 to 38.9 in adult ([facility]) Other Breast cancer screening by mammogram Relevant [...] before ON 07/22/22 documented in this encounter [facility] Work Phone: 07-08-2022 Evaluation + Plan note Associated Problem(s): Depression, major, recurrent, moderate (CMS/HCC) Stable on Zoloft - believes will improve when the pain is better managed [facility] Work Phone: 07-08-2022 Miscellaneous Notes Associated Problem(s): Depression, major, recurrent, moderate (CMS/HCC) Stable on Zoloft - believes will improve when the pain is better managed documented in this encounter [facility] Work Phone: 07-08-2022 History of Present illness Narrative Subjective Patient ID: Janelle Pickett is a 66 y.o. female who presents for Follow-up (F/U HIDA SCAN. C/O RIGHT ABDOMINAL PAIN RADIATES TO BACK AND DOWN B/L LEGS. ) HPI Follow up GI complaints She has been seen in multiple hospitals the past month [facility] testing Caridac work up - approp.NEG [...] is using corectal every few days Colonoscopy [place] 2020 and was Wnl - repeat in 10 years She was re-referred back to uro but again has not followed up with him She was seen in [place] [facility] June 20 given the GI symptoms [...] L5-S1 level Depression, major, single episode, mild ([facility]/HCC) Elevated antinuclear antibody ([facility]AR[facility]) level Hypertension, essential Mild cognitive impairment Sacroiliac joint dysfunction of left side Chronic back pain Claustrophobia Abdominal pain Diabetes mellitus with stage 3 chronic kidney disease ([facility]) Review of Systems Constitutional: Positive for appetite [...] History: Diagnosis Date H/O mammogram 2021 2021-NORMAL- [facility] Influenza vaccination declined 11/2021 Pap smear for cervical cancer screening 02/2022- NORMAL- DONE AT [address] [place] [address] Past Surgical History: Procedure Laterality Date COLONOSCOPY 2020 [facility] - NORMAL REPEAT IN 10 YEARS OOPHORECTOMY [...] by mouth once daily at bedtime. HYDROcodone-acetaminophen ([place]) 5-325 mg tablet Take 1 tablet by [...] Behavior: Behavior normal. Testing Review[facility]IDA [facility] I ordered Impression [...] FU in 2 weeks with labs at [facility] fasting and med check and medicare wellness MRCP Gen surgeon referral Pt to follow with her pain clinic as well documented in this encounter [facility] Work Phone: 07-01-2022 History of Present illness [...] Nocturia x 6-8, depending on fluid intake [facility] Work Phone: 04-22-2022 History of Present illness [...] pulmcirrhosis of the Liver - denies seeing grand scribe in the past - denies alcohol current [...] Dec she missed steps and fell outside -[facility] Work Phone: 04-22-2022 History of [...] pulmcirrhosis of the Liver - denies seeing grand scribe in the past - denies alcohol current [...] Dec she missed steps and fell outside -[facility] Work Phone: 04-11-2022 History of [...] some Tylenol with little relief.Blood sugars 145-160. [facility] Work Phone: 03-11-2022 History of Present illness Narrative L knee pain, hurts bad taking Advil without relief. Worse x 2 weeks. Denies new injury.Pain mgmt this am- went there on accident. No current tx.Later in visit reports 2 falls since ED visit in March,. [facility] referred here.Declines XR today for further eval, requesting pain meds. [facility] Work Phone: 12-03-2021 History of Present illness Narrative On a scale of 0 to 10, the patient rates the pain at 8.Pain Location: Low Back Pain and bilat sides, rt knee.Pain Quality: Aching.Pain Radiation: rt side lower back radiates up to rt scapula area.Sensory/ Motor: Numbness, Pins and Driscoll and intermittently.Timing/Duration: Constant and > 12 weeks [...] adrenal lesion found on the MRI. [facility] Work Phone: 11-12-2021 History of Present illness Narrative On a scale of 0 to 10, the patient rates the pain at 9.Pain Location: Low Back Pain.Pain Quality: Tenderness, Unable to describe and HURTS.Pain Radiation: LEFT MEDIAL THIGH.Sensory/ Motor: Numbness, Pins and Driscoll and RIGHT LATERAL THIGH.Timing/Duration: Constant and > [...] her quality of life and activity living. -[facility] Work Phone: 10-29-2021 History of Present illness [...] we were able to find through the [employer] system she had some sacroiliac joint injection [...] orthopedic surgeon opiates did not help. -[facility] Work Phone: 10-16-2021 History of Present illness [...] high, patient attributes to her pain level. [facility] Work Phone: 09-29-2021 Chief complaint Narrative - Reported NPV here for evaluation of lt knee pain that radiates up into her thigh and down her lower leg into her lt foot rates the pain 910 and has issues it swelling, and walking [...] positive education provided, ORT score 1 [facility] Work Phone: 09-27-2021 History of Present illness [...] high, patient attributes to her pain level. [facility] Work Phone: 09-20-2021 History of Present [...] high, patient attributes to her pain level. [facility] Work Phone: 09-17-2021 Chief complaint Narrative [...] she had swelling of the knee post-injection. [facility] Work Phone: 09-17-2021 Chief complaint Narrative - [...] she had swelling of the knee post-injection. [facility] Work Phone: 09-17-2021 Chief complaint Narrative - [...] she had swelling of the knee post-injection. [facility] Work Phone: 09-17-2021 Chief complaint Narrative [...] she had swelling of the knee post-injection. [facility] Work Phone: 09-17-2021 Chief complaint Narrative [...] she had swelling of the knee post-injection. [facility] Work Phone: 09-16-2021 History of Present [...] high, patient attributes to her pain level. [facility] Work [...] XR series of the left knee performed. [facility] Work Phone: 09-11-2021 Chief complaint Narrative [...] XR series of the left knee performed. [facility] Work Phone: 08-22-2021 History of Present [...] her back about 4 months ago at [facility] which did help. She is interested in pursuing a cortisone injection to her knee today. Patient states she was given an Mt wrap at the ED visit, she is unable to tolerate the wrap stating it makes her pain worse. Is any redness, heat from the knee, fever or chills. No injury. [facility] Work Phone: 01-08-2021 Miscellaneous Notes JANELLE PICKETT [facility] [id number] 1955 DATE 01/08/2021 OPERATIVE REPORT SURGEON BOB [...] An appropriate time-out was performed by Neurosurgery, electromechanical technologist and nurses and all agreed to [...] condition. BOB HUNT MD D 01/08/2021 09:49 [id number] T 01/08/2021 10:41 [facility] Brief Post Operative Note Patient Name: Janelle Pickett : 1955 (65 y.o.) Date of Service: 01/08/2021 CSN: [id number] Procedure(s): Left SI joint injection Pre-Operative Diagnoses: * Left SI joint dysfunction Post-Operative Diagnoses: * Sacroiliac joint dysfunction of left side [M53.3] Surgeon(s) and Role: * Bob Hunt MD - Primary No anesthesia staff entered. Microscopist: Randall Ventura RN Scrub Person: Gail Tavares, [...] Transparent film 01/08/21945 Compression Dressing Not Applicable 01/08/21945 Bob Hunt MD 01/08/2021 9:49 AM documented in this encounter [facility] 01-08-2021 Hospital course Narrative Images from the original note were not included. DISCHARGE SUMMARY Patient: Janelle Pickett Date of : 1955 Site[facility] Provider: Ida Ely CNP Admit [...] Start: 10/27/20. Quantity: 8 tablet Flublok Quad [id number] (PF) syringe Generic drug: flu vaccine qv [...] Physician(s) Family Provider: Ida Ely CNP, Address: [address] [place] [address] Follow Up: No follow-up provider specified. Additional [...] 01/08/21, 9:51 AM documented in this encounter [facility] 01-08-2021 History and physical note Impression: Janelle [...] iliac arteries. IMPRESSION: No acute osseous abnormality. Dyzc-nz-waemgnbr multilevel spondylosis of the lower lumbar spine. Bob Hunt, Ph.D., M.D. INTERVAL HISTORY AND PHYSICAL Patient Name: Janelle Pickett Admit Date: [id number] MR #: [id number] : 1955 The H&P has been reviewed and the patient has been examined. I concur with the findings of the H&P. There are no significant changes. It is appropriate to proceed with the planned procedure. Bob Hunt MD 01/08/2021 9:37 AM documented in this encounter [facility] 11-20-2020 Miscellaneous Notes Discharge instructions given. Verbalized understanding. Dressing to mid lower back dry & intact. Discharged via w/c to main lobby. Brief Post Operative Note Patient Name: Janelle Pickett : 1955 (65 y.o.) Date of Service: 11/20/2020 [facility]: [id number] Procedure(s): Left Sacroiliac Joint Injection Pre-Operative Diagnoses: [...] 11/20/2020 8:58 AM documented in this encounter [facility] 11-20-2020 Hospital course Narrative Images from the original note were not included. DISCHARGE SUMMARY Patient: Janelle Pickett Date of : 1955 [facility] Provider: Ida Ely CNP Admit Date: 11/20/2020 Discharge Date/Time: 11/20/20 Morning Disposition: Home Clinical Summary Hospital Course: Janelle Pickett is a 65 y.o. female patient of Ida lEy CNP with a history of lumbar spinal [...] (Pain) . Quantity: 240 g Flublok Quad 7624-4572 (PF) syringe Generic drug: flu vaccine qv [...] Physician(s) Family Provider: Ida Ely CNP, Address: [address] [place] [address] Follow Up: No follow-up provider specified. Additional Information: Call neurosurgery clinic* Patient instructions, including activity, were given to the patient/family at discharge. Please see the After Visit Summary in the electronic medical record for details. Time spent on discharge: < 30 minutes Completed by: Bob Hunt MD on 11/20/20, 9:04 AM documented in this encounter [facility] 11-20-2020 History and physical note Impression: Janelle [...] iliac arteries. IMPRESSION: No acute osseous abnormality. Orqq-bz-hmqaocxw multilevel spondylosis of the lower lumbar spine. Bob Hunt, Ph.D., M.D. INTERVAL HISTORY AND PHYSICAL Patient Name: Janelle Pickett Admit Date: [id number] MR #: [id number] : 1955 The H&P has been reviewed and the patient has been examined. I concur with the findings of the H&P. There are no significant changes. It is appropriate to proceed with the planned procedure. Bob Hunt MD 11/20/2020 8:57 AM documented in this encounter [facility] 11-07-2020 History of Present illness Narrative OPG [...] the injection - Nursing notes reviewed Ryley Angelo MS, MPAP, PA-C [facility] Neurosurgery Office: Chief Complaint: Consult (Patient describes [...] iliac arteries. IMPRESSION: No acute osseous abnormality. Isjm-rs-tiyklgwb multilevel spondylosis of the lower lumbar spine. documented in this encounter [facility] 10-22-2020 Emergency department Note Pt ambulates per self to lobby, pt is AxOx3 on discharge Critical from lab 466. Dr. Mora aware and Insulin ordered continuous pulse ox in place following narcotic administration. Pt denies getting into bed. Pt currently sitting in chair. Call light within reach PCP - Ida Ely CNP Chief Complaint Patient presents with Hip Pain [...] Pickett Home Medication Instructions Prior to Surgery SANTY:[id number] Printed on:10/22/20 4435 Medication Information Take last dose on Take [...] day as needed (Pain) . FLUBLOK QUAD [id number], PF, syringe fluticasone propion-salmeteroL (Advair HFA) 230-21 [...] Procedure Abnormality Status --------- ------ CBC Auto Differential[[id number]] Abnormal Final result Please view results for [...] Colonic diverticulosis without evidence of acute diverticulitis. [facility]/[employer] Workstation ID: [id number] Medications Ordered/Given During ED Visit Medications morphine injection 2 mg (2 mg Intravenous Given 10/22/20 1254) ondansetron (ZOFRAN) injection 4 mg (4 mg Intravenous Given 10/22/20 1254) insulin regular (HumuLIN R, NovoLIN R) injection 10 Units (10 Units Intravenous Given 10/22/20 1342) Procedures Yoshi Mora DO 10/22/20 0743 Pt c/o L hip pain that started approx 5 days ago worsening over the past 2 days. documented in this encounter [facility] 10-22-2020 Hospital Discharge instructions Abby Yoshi Tito, DO - 10/22/2020 As we discussed, you [...] cannot be sent through Care Everywhere.Flank Pain (Norwegian)Low Back Pain: General Info (Norwegian)documented in this encounter [facility] Evaluation note Diagnosis Left flank pain- Primary [...] of [facility] Right upper quadrant abdominal pain- Primary Chronic constipation Unspecified constipation Abnormal biliary HIDA scan Abdominal lymphadenopathy Lumbar radiculopathy, chronic Hypertension, essential Unspecified essential hypertension Diabetes mellitus with stage 3 chronic kidney disease (CMS/HCC) Depression, major, recurrent, moderate (CMS/HCC) documented in this encounter [facility] Work Phone: Evaluation note* Diagnosis Gross hematuria- Primary Dysuria Breast cancer screening by mammogram Post-menopausal Asymptomatic postmenopausal status (age-related) (natural) Class 2 severe obesity due to excess calories with serious comorbidity and body mass index (BMI) of 38.0 to 38.9 in adult ([facility]) documented in this encounter [facility] Work Phone: Evaluation note* Diagnosis Routine general medical examination at health care facility- Primary Routine general medical examination at a health care facility Abdominal lymphadenopathy Acquired hypothyroidism Unspecified hypothyroidism Vulvovaginal candidiasis Calculus of gallbladder with chronic cholecystitis without obstruction Hypomagnesemia Disorders of magnesium metabolism Diabetes mellitus with stage 3 chronic kidney disease ([facility]) Medicare annual wellness visit, subsequent Advanced care planning/counseling discussion Hypertension, essential Unspecified essential hypertension Degenerative lumbar spinal stenosis Spinal stenosis of lumbar region Cirrhosis of liver without ascites, unspecified hepatic cirrhosis type ([facility]) Class 2 severe obesity due to excess calories with serious comorbidity and body mass index (BMI) of 38.0 to 38.9 in adult ([facility]) Depression, major, recurrent, moderate ([facility]) documented in this encounter [facility] Work Phone: Evaluation note* Diagnosis Abdominal pain, generalized- Primary Cirrhosis of liver without ascites, unspecified hepatic cirrhosis type ([facility]) Abdominal guarding Other symptoms involving abdomen and pelvis Hypertension associated with diabetes ([facility]) Unspecified essential hypertension Gastroesophageal reflux disease without esophagitis Esophageal reflux Calculus of gallbladder with chronic cholecystitis without obstruction Abdominal pain, acute, right upper quadrant documented in this encounter [facility] Work Phone: Evaluation note* Diagnosis Acute non-recurrent frontal sinusitis- Primary Acute cough documented in this encounter [facility] Work Phone: Evaluation note* Diagnosis Primary osteoarthritis of left knee- Primary Acute pain of left knee documented in this encounter [facility] Work Phone: Evaluation note* Diagnosis Abdominal wall abscess- Primary Cellulitis and abscess of trunk Low vitamin B12 level Acute non-recurrent maxillary sinusitis Vitamin D deficiency Hypomagnesemia Disorders of magnesium metabolism Acquired hypothyroidism Unspecified hypothyroidism Hypertension associated with diabetes ([facility]/HCC) Unspecified essential hypertension Class 3 severe obesity due to excess calories with serious comorbidity and body mass index (BMI) of 40.0 to 44.9 in adult ([facility]) Diabetes mellitus with stage 3 chronic kidney disease ([facility]) Gastroesophageal reflux disease without esophagitis Esophageal reflux Chronic obstructive pulmonary disease with acute exacerbation ([facility]/HCC) documented in this encounter [facility] Work Phone: Evaluation note* Diagnosis Radiculopathy, lumbar region Thoracic or lumbosacral neuritis or radiculitis, unspecified Spinal stenosis, lumbar region with neurogenic claudication Low back pain, unspecified Pain in leg, unspecified Type 2 diabetes mellitus without complications (CMS/HCC) Tobacco use jail (current) use of insulin (CMS/HCC) Unspecified cirrhosis of liver (CMS/HCC) Morbid (severe) obesity due to excess calories (CMS/HCC) Body mass index (BMI) 40.0-44.9, adult ([facility]/HCC) Chronic obstructive pulmonary disease, unspecified (CMS/HCC) Depression, unspecified Pain, unspecified documented in this encounter [facility] Work Phone: Evaluation note* Diagnosis Chronic obstructive pulmonary disease with acute exacerbation (CMS/HCC)- Primary Abdominal wall abscess Cellulitis and abscess of trunk Type 2 diabetes mellitus with stage 3a chronic kidney disease, with long-term current use of insulin ([facility]/HCC) Hypertension associated with diabetes ([facility]/HCC) Unspecified essential hypertension Class 2 severe obesity due to excess calories with serious comorbidity and body mass index (BMI) of 39.0 to 39.9 in adult ([facility]) Diabetes mellitus with stage 3 chronic kidney disease ([facility]/HCC) documented in this encounter [facility] Work Phone: Evaluation note* Diagnosis Gastroenteritis- Primary Other and unspecified noninfectious gastroenteritis and colitis Diabetes mellitus with stage 3 chronic kidney disease (CMS/HCC) Calculus of gallbladder with chronic cholecystitis without obstruction Cirrhosis of liver without ascites, unspecified hepatic cirrhosis type (CMS/HCC) documented in this encounter [facility] Work Phone: Evaluation note* Diagnosis COPD exacerbation ([facility]/HCC)- Primary Obstructive chronic bronchitis with exacerbation Acute pain of left knee Tachycardia Unspecified tachycardia Acute bronchitis, unspecified organism documented in this encounter [facility] Work Phone: Evaluation note* Diagnosis Pain of left lower extremity Leg swelling Swelling of limb documented in this encounter [facility] Work Phone: Evaluation note* Diagnosis Tachycardia Unspecified tachycardia Heart palpitations Palpitations Acquired hypothyroidism Unspecified hypothyroidism documented in this encounter [facility] Work Phone: Evaluation note* Diagnosis Tachycardia Unspecified tachycardia Heart palpitations Palpitations Acquired hypothyroidism Unspecified hypothyroidism documented in this encounter [facility] Work Phone: Evaluation note* Diagnosis Lumbar radiculopathy, chronic- Primary Degenerative lumbar spinal stenosis Spinal stenosis of lumbar region Degenerative disc disease at L5-S1 level Arthritis of facet joint of lumbar spine documented in this encounter [facility] Work Phone: [phone] note* Diagnosis Primary osteoarthritis of left knee- Primary documented in this encounter [facility] Work Phone: Evaluation note* Diagnosis Chronic obstructive pulmonary disease with acute exacerbation (CMS/HCC)- Primary Diabetes mellitus with stage 3 chronic kidney disease ([facility]/HCC) documented in this encounter [facility] Work Phone: [phone] note* Diagnosis Primary osteoarthritis of left knee documented in this encounter [facility] Work Phone: Evaluation note* Diagnosis Post-menopausal Asymptomatic postmenopausal status (age-related) (natural) documented in this encounter [facility] Work Phone: Evaluation note* Diagnosis Encounter for screening mammogram for breast cancer documented in this encounter [facility] Work Phone: Evaluation note* Diagnosis Primary osteoarthritis of left knee- Primary documented in this encounter [facility] Work Phone: [phone] note* Diagnosis Arthritis of left knee- Primary Medicare annual wellness visit, subsequent- Primary Diabetes mellitus with stage 3 chronic kidney disease (CMS/HCC) Routine general medical examination at health care facility Routine general medical examination at a health care facility Hypertension associated with diabetes ([facility]/HCC) Unspecified essential hypertension Class 3 severe obesity [...] Chronic obstructive pulmonary disease with acute exacerbation ([facility]/HCC) Advanced care planning/counseling discussion Arthritis of left knee documented in this encounter [facility] Work Phone: [phone] note* Diagnosis Arthritis of left knee- Primary Diabetes mellitus with stage 3 chronic kidney disease (CMS/HCC)- Primary Chronic obstructive pulmonary disease with acute exacerbation ([facility]) Arthritis of left knee documented in this encounter [facility] Work Phone: [phone] note* Diagnosis Arthritis of left knee- Primary Left leg pain- Primary Pain in soft tissues of limb Arthritis of left knee documented in this encounter [facility] Work Phone: [phone] note* Diagnosis Arthritis of left knee- Primary Primary osteoarthritis of left knee Arthritis of left knee documented in this encounter [facility] Work Phone: [phone] note* Diagnosis Arthritis of left knee- Primary Left leg swelling Localized edema Edema Arthritis of left knee documented in this encounter [facility] Work Phone: [phone] note* Diagnosis Arthritis of left knee- Primary Left leg swelling Localized edema Edema Arthritis of left knee documented in this encounter [facility] Work Phone: [phone] note* Diagnosis Arthritis of left knee- Primary Primary osteoarthritis of left knee Arthritis of left knee documented in this encounter [facility] Work Phone: [phone] note* Diagnosis Arthritis of left knee- Primary Lumbar radiculopathy Thoracic or lumbosacral neuritis or radiculitis, unspecified Arthritis of left knee documented in this encounter [facility] Work Phone: [phone] note* Diagnosis Arthritis of left knee- Primary Arthritis of left knee Primary osteoarthritis of left knee S/P total knee arthroplasty, left documented in this encounter [facility] Work Phone: [phone] note* Diagnosis S/P TKR (total knee replacement), left documented in this encounter [facility] Work Phone: [phone] note* Diagnosis S/P TKR (total knee replacement), left documented in this encounter [facility] Work Phone: Evaluation note* Diagnosis S/P TKR (total knee replacement), left documented in this encounter [facility] Work Phone: Evaluation note* Diagnosis Degenerative lumbar spinal stenosis- Primary Spinal stenosis of lumbar region Lumbar radiculopathy, chronic Degenerative disc disease at L5-S1 level S/P total knee arthroplasty, left Myalgia Unspecified myalgia and myositis Chronic bilateral low back pain, unspecified whether sciatica present documented in this encounter [facility] Work Phone: Evaluation note* Diagnosis S/P TKR (total knee replacement), left- Primary S/P TKR (total knee replacement), left documented in this encounter [facility] Work Phone: Evaluation note* Diagnosis S/P TKR (total knee replacement), left documented in this encounter [facility] Work Phone: Evaluation note* Diagnosis S/P TKR (total knee replacement), left documented in this encounter [facility] Work Phone: Evaluation note* Diagnosis Lumbar radiculopathy, chronic- Primary Degenerative lumbar spinal stenosis Spinal stenosis of lumbar region Degenerative disc disease at L5-S1 level Chronic bilateral low back pain, unspecified whether sciatica present S/P total knee arthroplasty, left documented in this encounter [facility] Work Phone: Evaluation note* Diagnosis Tachycardia- Primary Unspecified tachycardia Tachycardia Unspecified tachycardia Postural dizziness with presyncope Chest pain, unspecified type Acute pain of left knee Pain and swelling of left lower leg Pain in left leg COPD exacerbation (CMS/HCC) Obstructive chronic bronchitis with exacerbation Breast abrasion, left, initial encounter Pain and swelling of left lower leg documented in this encounter [facility] Work Phone: History of Present illness NarrativeAgree [...] has neverhad knee pain from her back pain.[facility] [address] Work Phone: History of Present illness Narrative* On a scale of 0 to 10, the patient rates the pain at 8. * Pain Location: Upper Back Pain. * Pain Quality: Cramping, Shooting and CRAMPING WITH INTERMITTENT SHOOTING PAIN. * Pain Radiation: LEFT POSTERIOR SHOULDER. * Sensory/ Motor: Pins and [place] and ALL OVER PER PATIENT. * Timing/Duration: [...] [facility]: History of Present illness [...] gallbladder surgery years and years ago at [facility]. She does not recall specifics of the surgery, but it sounds like it was performed in an acute setting. Her other abdominal surgery includes a and an emergent umbilical hernia repair with small bowel resection about 5 years ago, also performed at [facility]. She denies any fever, yellowing of the [...] showed some splenomegaly with concern for portal hypertension.-[facility] Work Phone: History of Present illness Narrative* Nayana Miller, TONI-DEMO COORDINATOR - 01/19/2023 4:20 PM EDT Subjective Patient [...] before PER PATIENT REQUEST [facility] Reason for referral (narrative)* Consultation (Routine) - Authorized Specialty Diagnoses / Procedures Referred By Contac t Referred To Contact General Surgery Diagnoses Right upper quadrant abdominal pain Chronic constipation Abnormal biliary HIDA scan Procedures [place] OFFICE/OUTPATIENT [facility] HIGH MDM 60-74 MINUTES Callie Mcdonough PA-C [address] [facility] [place] [address] Kiley Yo MD [address] [facility], [facility] [address] [place] [address] Referral ID Status Reason Start Date Expiration Date Visits Requested Visits Authorized [id number] Authorized Specialty Services Required 07/08/2022 01/04/2023 1 1 * Imaging (Routine) - Authorized Specialty Diagnoses / Procedures Referred By Contac t Referred To Contact Radiology Diagnoses Right upper quadrant abdominal pain Chronic constipation Abnormal biliary HIDA scan Procedures MR abdomen w and wo IV contrast MRCP Callie Mcdonough PA-C [address] [place] [address] Referral ID Status Reason Start Date Expiration Date Visits Requested Visits Authorized [id number] Authorized Perform Procedure 07/08/2022 01/04/2023 1 1 [facility] Work Phone: Reioop for referral (narrative)* Consultation (Routine) - Authorized Specialty Diagnoses / Procedures Referred By Contact Referred To Contact Orthopaedic Surgery / Orthopedic Surgery Diagnoses Primary osteoarthritis of left knee Procedures Follow Up In Orthopaedic Surgery Shadia Daley APRN-EVERARDO [address] [facility], [facility] [address] [place] [address] Fredy Styles MD [address] [facility], [address] [place] [address] Referral ID Status Reason Start Date Expiration Date V isits Requested Visits Authorized [id number] Authorized 05/09/2023 05/08/2024 1 1 * Imaging (Routine) - Pending Review Specialty Diagnoses / Procedures Referred By Contac t Referred To Contact Radiology Diagnoses Primary osteoarthritis of left knee Procedures MR knee left wo IV contrast Shadia Daley APRN-EVERARDO [address] [facility], [address] [address] Referral ID Status Reason Start Date Expiration Date Visits Requested Visits Authorized [id number] Pending Review Perform Procedure 05/09/2023 05/08/2024 1 1 [facility] Work Phone: Repkxl for referral (narrative)* Consultation (Routine) - Authorized Specialty Diagnoses / Procedures Referred By Contac t Referred To Contact Pharmacy Diagnoses Chronic obstructive pulmonary disease with acute exacerbation (CMS/HCC) Diabetes mellitus with stage 3 chronic kidney disease (CMS/HCC) Procedures Follow Up In Clinical Pharmacy Callie Mcdonough PA-C [address] [place] [address] [facility] [address] [place] [address] Referral ID Status Reason Start Date Expiration Date V isits Requested Visits Authorized [id number] Authorized 05/09/2023 05/08/2024 1 1 [facility] Work Phone: Rezbdb for referral (narrative)* Consultation (Routine) - Authorized Specialty Diagnoses / Procedures Referred By Contac t Referred To Contact Pharmacy Diagnoses Chronic obstructive pulmonary disease with acute exacerbation (CMS/HCC) Diabetes mellitus with stage 3 chronic kidney disease (CMS/HCC) Procedures Follow Up In Clinical Pharmacy Callie Mcdonough PA-C [address] [place] [address] [facility] [address] [place] [address] Referral ID Status Reason Start Date Expiration Date V isits Requested Visits Authorized [id number] Authorized 05/30/2023 05/29/2024 1 1 [facility] Work Phone: Reason for referral (narrative)* Procedure (Routine) - Authorized Specialty Diagnoses / Procedures Referred By Contac t Referred To Contact Pain Medicine / Procedural Diagnoses Lumbar radiculopathy Procedures Epidural Steroid Injection Kelly Carrasco PA-C [address] [place] [address] [address] Referral ID Status Reason Start Date Expiration Date Visits Requested Visits Authorized [id number] Authorized Perform Procedure 05/31/2023 05/30/2024 1 1 [facility] Work Phone: Rezacj for referral (narrative)* Consultation (Routine) - Pending Review Specialty Diagnoses / Procedures Referred By Contac t Referred To Contact Physical Therapy Diagnoses S/P TKR (total knee replacement), left WorkRyan schaffer PA-C [address] [facility], [address] [place] [address] Referral ID Status Reason Start Date Expiration Date Visits Requested Visits Authorized [id number] Pending Review Specialty Services Required 06/17/2023 06/16/2024 1 1 * Imaging (Routine) - Authorized Specialty Diagnoses / Procedures Referred By Contac t Referred To Contact Radiology Diagnoses S/P TKR (total knee replacement), left Procedures XR knee left 3 views Fredy Styles MD [address] [facility], [address] [place] [id number] [address] [place] [address] Referral ID Status Reason Start Date Expiration Date Visits Requested Visits Authorized [id number] Authorized Perform Procedure 06/14/2023 06/13/2024 1 1 [facility] Work Phone: reason for referral (narrative)* Consultation (Routine) - Pending Review Specialty Diagnoses / Procedures Referred By Contac t Referred To Contact Physical Therapy Diagnoses S/P TKR (total knee replacement), left Ryan Power PA-C [address] [facility], [address] [place] [address] Referral ID Status Reason Start Date Expiration Date Visits Requested Visits Authorized [id number] Pending Review Specialty Services Required 07/22/2023 07/21/2024 1 1 [facility] Work Phone: Reason for visit Narrative* Auth/Cert Specialty Diagnoses / Procedures Referred By Contac t Referred To Contact Diagnoses Sacroiliac joint dysfunction of left side Procedures Left SI joint injection Referral ID Status Reason Start Date Expiration Date Visits Re quested Visits Authorized [id number] 1 1 [facility] for visit Narrative* Procedure (Routine) - Authorized Specialty Diagnoses / Procedures Referred By Contac t Referred To Contact Pain Medicine / Procedural Diagnoses Lumbar radiculopathy Procedures Epidural Steroid Injection Kelly Carrasco PA-C [address] [place] [address] [address] Referral ID Status Reason Start Date Expiration Date Visits Requested Visits Authorized [id number] Authorized Perform Procedure 05/31/2023 05/30/2024 1 1 [facility] Work Phone: Summary Purpose Family History No [...] Father 1970 Comments: 1970; Status:Active Aneurysm: Mother 1971 Comments:- PASSED A WAY; Status:Active Unknown Family [...] Comments:- PASSED A WAY; Status:Active Edema: Father 1969 Comments: 1969; Status:Active Advance Directives No Advanced Directives Records FoundDocuments on File Type Date Recorded 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 Advance Directives and Livin g Will 10/22/2020 1:19 PM Does not have Latest Code Status on File Code Status Date Activated Date Inactivated Comments Full Code 09/08/2020 2:50 AM 09/09/2020 2:38 PM Documents on File Type Date Recorded 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 Advance 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 and Livin g Will 10/31/2020 10:29 AM Documents on File Type Date Recorded 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 Advance 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 and Livin g Will 11/20/2020 7:23 AM Latest Code Status on File Code Status Date Activated Date Inactivated Comments Full Code 09/08/2020 2:50 AM 09/09/2020 2:38 PM Documents on File Type Date Recorded 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 Advance Directives and Livin g [...] BI mammo bilateral screening tomosynthesis Nayana Miller, CASE MAKER-[facility] [address] [place] [address] Referral ID Status Reason Start Date Expiration Date Visits Requested Visits Authorized [id number] Authorized Perform Procedure 07/16/2022 01/12/2023 1 1 Specialty Diagnoses / Procedures Referred By Contac t Referred To Contact Radiology Diagnoses Post-menopausal Procedures XR DEXA bone density Nayana Miller, CASE MAKER-DEMO COORDINATOR [address] [place] [address] Referral ID Status Reason Start Date Expiration Date Visits Requested Visits Authorized [id number] Authorized Perform Procedure 07/16/2022 01/12/2023 1 1 Specialty Diagnoses / Procedures Referred By Contac t Referred To Contact Orthopaedic Surgery / Orthopedic Surgery Diagnoses Primary osteoarthritis of left knee Procedures L Inj/Asp: L knee Shadia Daley, CASE MAKER-[facility] [address] [facility], [place] [address] Referral ID Status Reason Start Date Expiration Date V isits Requested Visits Authorized [id number] Pending Review 02/09/2023 02/09/2024 1 1 Specialty Diagnoses / Procedures Referred By Contac t Referred To Contact Orthopaedic Surgery / Orthopedic Surgery Diagnoses Primary osteoarthritis of left knee Procedures Follow Up In Orthopaedic Surgery Shadia Daley, CASE MAKER-[facility] [address] [facility], [place] [phone] Referral ID Status Reason Start Date Expiration Date V isits Requested Visits Authorized [id number] Authorized 02/07/2023 02/07/2024 1 1 Specialty Diagnoses / Procedures Referred By Contac t Referred To Contact Diagnoses Class 3 severe obesity due to excess calories with serious comorbidity and body mass index (BMI) of 40.0 to 44.9 in adult ([facility]) Diabetes mellitus with stage 3 chronic kidney disease ([facility]) Callie Mcdonough PA-C [address] [place] [phone] Referral ID Status Reason Start Date Expiration Date V isits Requested Visits Authorized [id number] Pending Review 1 1 Specialty Diagnoses / Procedures Referred By Contac t Referred To Contact Diagnoses Chronic obstructive pulmonary disease with acute exacerbation (CMS/HCC) Procedures Pulmonary function testing Callie Mcdonough PA-C [address] [place] [address] Referral ID Status Reason Start Date Expiration Date V isits Requested Visits Authorized [id number] Pending Review 03/08/2023 03/07/2024 1 1 Specialty Diagnoses / Procedures Referred By Contac t Referred To Contact Diagnoses Chronic obstructive pulmonary disease with acute exacerbation (CMS/HCC) Procedures Pulse oximetry, overnight Callie Mcdonough PA-C [address] [place] [address] Referral ID Status Reason Start Date Expiration Date V isits Requested Visits Authorized [id number] Pending Review 03/08/2023 03/07/2024 1 1 Specialty Diagnoses / Procedures Referred By Contac t Referred To Contact Diagnoses Gastroenteritis Callie Mcdonough PA-C [address] [place] [address] Referral ID Status Reason Start Date Expiration Date V isits Requested Visits Authorized [id number] Authorized 02/26/2023 03/27/2024 1 1 Specialty Diagnoses / Procedures Referred By Contac t Referred To Contact Cardiology Diagnoses Pain of left lower extremity Leg swelling Procedures Lower extremity venous duplex left Shadia Daley, CASE MAKER-DEMO COORDINATOR [address] [facility], [facility] [address] [place] [address] Referral ID Status Reason Start Date Expiration Date Visits Requested Visits Authorized [id number] Pending Review Perform Procedure 04/12/2023 04/11/2024 1 1 Specialty Diagnoses / Procedures Referred By Contac t Referred To Contact Cardiology Diagnoses Tachycardia Heart palpitations Acquired hypothyroidism Procedures Holter Or Event Explosive Ordnance Handler Callie Mcdonough PA-C [address] [place] [address] [place] [address] [address] [facility] [address] [place] [address] Referral ID Status Reason Start Date Expiration Date V isits Requested Visits Authorized [id number] Authorized 04/18/2023 04/17/2024 1 1 Specialty Diagnoses / Procedures Referred By Contac t Referred To Contact Radiology Diagnoses Primary osteoarthritis of left knee Procedures MR knee left wo IV contrast Shadia Daley, CASE MAKER-DEMO COORDINATOR [address] [facility], [facility] [address] [place] [address] Referral ID Status Reason Start Date Expiration Date Visits Requested Visits Authorized [id number] Authorized Perform Procedure 05/09/2023 05/08/2024 1 1 Specialty Diagnoses / Procedures Referred By Contac t Referred To Contact Radiology Diagnoses Post-menopausal Procedures XR DEXA bone density Callie Mcdonough PA-C [address] [facility] [place] [address] Referral ID Status Reason Start Date Expiration Date Visits Requested Visits Authorized [id number] Pending Review Perform Procedure 3 02/21/2024 1 1 Specialty Diagnoses / Procedures Referred By Contac t Referred To Contact Radiology Diagnoses Encounter for screening mammogram for breast cancer Procedures BI mammo bilateral screening tomosynthesis Callie Mcdonough PA-Monica [address] [facility] [place] [address] Referral ID Status Reason Start Date Expiration Date Visits Requested Visits Authorized [id number] Authorized Perform Procedure 3 02/21/2024 1 1 Specialty Diagnoses / Procedures Referred By Contac t Referred To Contact Radiology Diagnoses Primary osteoarthritis of left knee Procedures XR chest 2 views Fredy Styles MD [address] [facility], [address] [place] [address] Referral ID Status Reason Start Date Expiration Date Visits Requested Visits Authorized [id number] Authorized Perform Procedure 05/27/2023 05/26/2024 1 1 Specialty Diagnoses / Procedures Referred By Contac t Referred To Contact Diagnoses Primary osteoarthritis of left knee Procedures ECG 12 Lead Fredy Styles MD [address] [facility], [address] [place] [address] Referral ID Status Reason Start Date Expiration Date V isits Requested Visits Authorized [id number] Authorized 05/27/2023 05/26/2024 1 1 Specialty Diagnoses / Procedures Referred By Contac t Referred To Contact Cardiology Diagnoses Left leg swelling Procedures Lower extremity venous duplex left Ryan Mehta MD [address] [address] Referral ID Status Reason Start Date Expiration Date Visits Requested Visits Authorized [id number] Authorized Perform Procedure 05/31/2023 05/30/2024 1 1 Specialty Diagnoses / Procedures Referred By Contact Referred To Contact Home Health Services Diagnoses Arthritis of left knee Fredy Styles MD [address] [facility], [address] [place] [address] [address] Referral ID Status Reason Start Date Expiration Date Visits Requested Visits Authorized [id number] Pending Review Specialty Services Required 06/10/2023 06/09/[phone] Specialty Diagnoses / Procedures Referred By Contac t Referred To Contact Radiology Diagnoses S/P TKR (total knee replacement), left Procedures XR knee left 3 views Fredy Styles MD [address] [facility], [address] [place] [address] [address] [place] [address] Referral ID Status Reason Start Date Expiration Date Visits Requested Visits Authorized [id number] Authorized Perform Procedure 06/14/2023 06/13/2024 1 1 Specialty Diagnoses / Procedures Referred By Contac t Referred To Contact Radiology Diagnoses S/P TKR (total knee replacement), left Procedures XR knee left 3 views Fredy Styles MD [address] [facility], [address] [place] [address] Referral ID Status Reason Start Date Expiration Date Visits Requested Visits Authorized [id number] Authorized Perform Procedure 07/21/2023 07/20/2024 1 1 [...] SHE W[facility]. 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 PATIENT STATES THAT SHE HAS [...] RF on Methocarbamol and GPN send to [facility]. She is to have injections in her knee per Ortho she is waiting for the approval. * Oswestry Disability Index evaluation tool completed by patient score 60/100, Alcohol screen negative Additional Source Comments INFORMATION SOURCE (unrecogn ized section and content) DATE CREATED AUTHOR 04/14/2018 [facility] DATE CREATED AUTHOR AUTHOR'S BCIZ ATOLAF 02/10/2019 [facility] DATE CREATED AUTHOR AUTHOR'S ORGANIZ ATION 06/15/2020 [facility] DATE CREATED AUTHOR AUTHOR'S ORGANIZ ATION 11/27/2020 [facility] DATE CREATED AUTHOR AUTHOR'S ORGANIZ ATION 01/09/2021 [facility] DATE CREATED AUTHOR AUTHOR'S ORGANIZ ATION [facility] DATE CREATED AUTHOR AUTHOR'S ORGANIZ ATION 12/30/2022 [facility] DATE CREATED AUTHOR AUTHOR'S ORGANIZ ATION 01/12/2023 [facility] DATE CREATED AUTHOR AUTHOR'S ORGANIZ ATION 07/08/2023 [facility] DATE CREATED AUTHOR AUTHOR'S ORGANIZ ATION 01/01/2024 [facility] [place] DATE CREATED AUTHOR AUTHOR'S ORGANIZ ATION 01/07/2024 [facility] DATE CREATED AUTHOR AUTHOR'S ORGANIZ ATION 01/10/2024 [facility] Ambulatory Reason for Visit (unrecogniz ed section [...] back pain with left-sided sciatica Lizet Mackay, DEMO COORDINATOR [address] [place] [address] [facility] [place] [address] Status Reason Specialty Diagnoses / Procedures Referre [...] Lower extremity venous duplex left Shadia Daley, CASE MAKER-DEMO COORDINATOR [address] [facility], [facility] [address] [place] [phone] Referral ID Status Reason Start Date Expiration Date Visits Requested Visits Authorized [id number] Pending Review Perform Procedure 04/12/2023 04/11/2024 1 1 Specialty Diagnoses / Procedures Referred By Nyasia duarte Referred To Contact Cardiology Diagnoses Tachycardia Heart palpitations Acquired hypothyroidism Procedures Holter Or Event Explosive Ordnance Handler Callie Mcdonough PA-C [address] [facility] [place] [address] [place] [address] Referral ID Status Reason Start Date Expiration Date V isits Requested Visits Authorized [id number] Authorized 04/18/2023 04/17/2024 1 1 Reason Comments [...] Chronic obstructive pulmonary disease with acute exacerbation ([facility]/HCC) Diabetes mellitus with stage 3 chronic kidney disease ([facility]) Procedures Follow Up In Advanced Primary Care - Pharmacy Callie Mcdonough PA-C [address] [place] [address] Referral ID Status Reason Start Date Expiration Date V isits Requested Visits Authorized [id number] Authorized 05/02/2023 05/01/2024 1 1 Specialty Diagnoses / Procedures Referred By Contac t Referred To Contact Radiology Diagnoses Primary osteoarthritis of left knee Procedures MR knee left wo IV contrast Shadia Daley, CASE MAKER-DEMO COORDINATOR [address] [facility], [facility] [address] [place] [phone] Referral ID Status Reason Start Date Expiration Date Visits Requested Visits Authorized [id number] Authorized Perform Procedure 05/09/2023 05/08/2024 1 1 Specialty Diagnoses / Procedures Referred By Contac t Referred To Contact Radiology Diagnoses Post-menopausal Procedures XR DEXA bone density Callie Mcdonough PA-C [address] [place] [address] Referral ID Status Reason Start Date Expiration Date Visits Requested Visits Authorized [id number] Pending Review Perform Procedure 3 02/21/2024 1 1 Specialty Diagnoses / Procedures Referred By Contac t Referred To Contact Radiology Diagnoses Encounter for screening mammogram for breast cancer Procedures BI mammo bilateral screening tomosynthesis Callie Mcdonough PA-C [address] [place] [address] Referral ID Status Reason Start Date Expiration Date Visits Requested Visits Authorized [id number] Authorized Perform Procedure 3 02/21/2024 1 1 [...] Callie Mcdonough PA-C [address] [place] [address] [facility] [address] [place] [address] Referral ID Status Reason Start Date Expiration Date V isits Requested Visits Authorized [id number] Authorized 05/09/2023 05/08/2024 1 1 Reason Comments Leg Pain Specialty Diagnoses / Procedures Referred By Contac t Referred To Contact Radiology Diagnoses Primary osteoarthritis of left knee Procedures XR chest 2 views Fredy Styles MD [address] [facility], [address] [place] [address] Referral ID Status Reason Start Date Expiration Date Visits Requested Visits Authorized [id number] Authorized Perform Procedure 05/27/2023 05/26/2024 1 1 Specialty Diagnoses / Procedures Referred By Contac t Referred To Contact Diagnoses Primary osteoarthritis of left knee Procedures ECG 12 Lead Fredy Styles MD [address] [facility], [address] [place] [address] Referral ID Status Reason Start Date Expiration Date V isits Requested Visits Authorized [id number] Authorized 05/27/2023 05/26/2024 1 1 Specialty Diagnoses / Procedures Referred By Nyasia duarte Referred To Contact Cardiology Diagnoses Left leg swelling Procedures Lower extremity venous duplex left Ryan Mehta MD [address] [address] Referral ID Status Reason Start Date Expiration Date Visits Requested Visits Authorized [id number] Authorized Perform Procedure 05/31/2023 05/30/2024 1 1 Reason Comments Error (VOID this visit) Specialty Diagnoses / Procedures Referred By Nyasia duarte Referred To Contact Diagnoses Arthritis of left knee Arthritis of left knee [M17.12] Procedures NC ARTHRP KNE CONDYLE&PLATU MEDIAL&LAT COMPARTMENTS Arthroplasty Total Knee Fredy Styles MD [address] [facility], [address] [place] [address] [address] Referral ID Status Reason Start Date Expiration Date Visits Re quested Visits Authorized [id number] 1 1 Reason Comments Post-op TKA 06/10/2023 Specialty Diagnoses / Procedures Referred By Nyasia duarte Referred To Contact Radiology Diagnoses S/P TKR (total knee replacement), left Procedures XR knee left 3 views Fredy Styles MD [address] [facility], [address] [place] [address] [facility] [address] [place] [address] Referral ID Status Reason Start Date Expiration Date Visits Requested Visits Authorized [id number] Authorized Perform Procedure 06/14/2023 06/13/2024 1 1 [...] Referred By Nyasia duarte Referred To Contact Radiology Diagnoses S/P TKR (total knee replacement), left Procedures XR knee left 3 views Fredy Styles MD [address] [facility], [address] [place] [address] Referral ID Status Reason Start Date Expiration Date Visits Requested Visits Authorized [id number] Authorized Perform Procedure 07/21/2023 07/20/2024 1 1 [...] Minutes, Every 24 hours, First dose on 04/04/23 at 1700, For 3 doses, Suspected Indication (Select all that apply): Other, Specify: COPD, Type of Therapy: Empiric 2118 (New Bag - Provider: Marylin Pickens RN)2225 (Stopped - Provider: Marylin Pickens RN) [...] Tue04/04/23 at 1150, For 1 dose, Mini-Bag Plus/ADD-[place] bag, Suspected Indication (Select all that apply): Pneumonia, Type of Therapy: Empiric 1231 (New Bag - Provider: Willow Rees RN)1334 (Stopped - Provider: Willow Rees RN) enoxaparin (Lovenox) syringe 40 mg 40 mg, subcutaneous, Every 12 hours scheduled, First dose on Tue04/04/23 at 2100 2119 (Given - Provider: Marylin Pickens RN) 0849 (Given - Provider: Shelly Buck, RN)2100 [...] mg/dL 1626 (Given - Provider: Alyssa Vasquez, PANDA)2119 (Given - Provider: Marylin Pickens, PANDA - Comment: [id number]) 0849 (Given - Provider: Shelly Buck, PANDA)1100 (Not Given - Provider: Shelly Buck RN - Reason: Other - Comment: lft ama)1600 [...] 1627 (New Bag - Provider: Alyssa Vasquez, PANDA)1920 (Stopped - Provider: Marylin Pickens, PANDA) methylPREDNISolone sod succinate (PF) (SOLU-Medrol) 40 mg/mL injection 40 mg 40 mg, intravenous, Every 8 hours scheduled, First dose on Tue04/04/23 at 1500 1500 (Not Given - Provider: Alyssa Vasquez, PANDA - Reason: Contraindicated)2118 (Given - Provider: Marylin Pickens, PANDA) 0536 (Given - Provider: Marylin Pickens, PANDA)1400 (Due)2200 (Due) methylPREDNISolone sod succinate (SOLU-Medrol) injection 125 mg (COMPLETED) 125 mg, intravenous, Once, On Tue04/04/23 at 1150, For 1 dose 1157 (Given - Provider: Willow Rees RN) metoprolol tartrate (Lopressor) injection 5 mg 5 mg, intravenous, Once, On Tue04/05/23 at 1200, For 1 dose 1200 (Not Given - Provider: Shelly Buck [...] 1405 1419 (Medication Applied - Provider: Willow Rees, RN - Comment: LEFT SHOULDER) 0849 (Medication Applied - Provider: Shelly Buck, RN) ondansetron (Zofran) injection 4 mg (COMPLETED) 4 mg, intravenous, Once, On Tue04/04/23 at 0905, For 1 dose, When administering via IV Push, administer over 3-5 minutes. 0915 (Given - Provider: Willow Rees, RN) pantoprazole (ProtoNix) EC tablet 40 mg(Linked [...] 0900 (Not Given - Provider: Shelly Buck, PANDA - Reason: Patient/family refused) sodium chloride 0.9 % bolus 1,000 mL (COMPLETED) 1,000 mL, intravenous, at 1,000 mL/hr, Administer over 1 Hours, Once, On Tue04/04/23 at 1150, For 1 dose 1157 (New Bag - Provider: Willow Rees, RN)1259 (Stopped - Provider: Willow Rees, RN) Continuous Medication Order 04/03/2023 04/04/2023 04/05/2023 sodium chloride 0.9% infusion 100 mL/hr, intravenous, Continuous, Starting on Tue04/04/23 at 1500 1819 (New Bag - Provider: Alyssa Vasquez, RN)1820 (Rate/Dose Verify - Provider: Alyssa Vasquez RN) 0925 (Rate/Dose Verify - Provider: Shelly [...] pain scores based on patient preference? Yes 2143 (Given - Provider: Marylin Pickens RN) 7213 (Given - Provider: Marylin Pickens RN) oxygen [...] On Tue05/30/23 at 2220, For 1 dose 223 (Given - Provid er: René Shook RN) [...] Preprocedure 0950 (Given - Provider: Shazia Danielle, EYEGLASS ASSEMBLER) albuterol 2.5 mg /3 mL (0.083 %) nebulizer solution 2.5 mg (CANCELED) 2.5 mg, nebulization, Every 4 hours while awake RT, First dose (after last modification) on Tue06/10/23 at 1800 1850 (Given - Provider: Gonzalo Gibbons, EYEGLASS ASSEMBLER) aspirin EC tablet 81 mg 81 mg, oral, 2 times daily, First dose on Tue06/10/23 at 2100, Phase II/On Unit, Do not crush, chew, or split. 2022 (Given - Provider: Minnie Power, PANDA) 0831 (Given - Provider: Callie Jenkins, PANDA)2139 (Given - Provider: Roopa Jimenez RN) 0840 (Given - Provider: Aleena Sanchez, PANDA)2100 (Due) atorvastatin (Lipitor) tablet 20 mg 20 mg, oral, Daily, First dose on Tue06/10/23 at 1915 2130 (Given - Provider: Minnie Power, PANDA) 0833 (Given - Provider: Callie Jenkins, PANDA) 0841 (Given - Provider: Aleenaelbert Sanchez RN) budesonide (Pulmicort) 0.5 mg/2 mL nebulizer solution 0.5 mg 0.5 mg, nebulization, 2 times daily RT, First dose on Tue06/10/23 at 2014, Rinse mouth with water after use to reduce aftertaste and incidence of candidiasis. Do not swallow. 2014 (Not Given - Provider: Gonzalo Gibbons, ZAHIDA - Reason: Contraindicated) 0639 (Given - Provider: Evelyn Forbes RRT)1812 (Given - Provider: Fadia Uribe, ZAHIDA) 0647 (Given - Provider: Evelyn Forbes RRT)1900 [...] RN) 0021 (New Bag - Provider: Minnie Power, PANDA)0051 (Stopped - Provider: Minnie Power RN) celecoxib [...] at 0900 0831 (Given - Provider: Callie Jenkins, PANDA) docusate sodium (Colace) capsule 100 mg 100 mg, oral, 2 times daily, First dose on Tue06/10/23 at 2100, Phase II/On Unit, Bowel Regimen - for prevention of constipation Hold for loose stools 2099 (Not Given - Provider: Minnie Power RN - Reason: Patient/family refused) 0832 (Given - Provider: Callie Jenkins, PANDA)2138 (Given - Provider: Roopa Jimenez RN) 0841 [...] RN) 0831 (Given - Provider: Callie Jenkins, PANDA) 0840 (Given - Provider: Aleena Sanchez RN) famotidine PF (Pepcid) injection 20 mg (COMPLETED) 20 mg, intravenous, Once, On Tue06/10/23 at 0900, For 1 dose, Preprocedure 0955 (Given - Provider: Amanda Lynch RN) formoterol (Perforomist) 20 mcg/2 mL nebulizer solution 20 mcg 20 mcg, nebulization, 2 times daily RT, First dose on Tue06/10/23 at 2014 2015 (Not Given - Provider: Gonzalo Gibbons, EYEGLASS ASSEMBLER - Reason: Contraindicated) 0632 (Given - Provider: Evelyn Forbes, ZAHIDA)1808 (Given - Provider: Fadia Uribe, ZAHIDA) 0638 (Given - Provider: Evelyn Forbes, ZAHIDA)1900 (Due) gabapentin (Neurontin) capsule 300 mg 300 mg, oral, 3 times daily, First dose (after last modification) on Tue06/11/23 at 1500, Capsules may be opened and sprinkled on food (eg, applesauce, orange juice, pudding). Capsules may be opened and sprinkled on food (eg, applesauce, orange juice, pudding 1424 (Given - Provider: Callie Jenkins RN)213 (Given - Provider: Roopa Jimenez RN) 0841 (Given - Provider: Aleena Sanchez RN)142 (Given - Provider: Aleena Sanchez RN)2100 (Due) [...] 0915 1028 (Given - Provider: Callie Jenkins RN)213 (Given - Provider: Roopa Jimenez RN) 0842 (Given - Provider: Aleena Sanchez, PANDA)2100 (Due) insulin lispro (HumaLOG) injection 0-10 Units [...] RN) 0843 (Given - Provider: Aleena Sanchez, PANDA)1219 (Given - Provider: Aleena Sanchez, PANDA)1700 (Due) insulin lispro (HumaLOG) injection 0-5 Units [...] Daily, First dose on Tue06/10/23 at 1915 2022 (Given - Provider: Minnie Power RN) 0833 (Given - Provider: Callie Jenkins RN) 0841 (Given - Provider: Aleena Sanchez, PANDA) LORazepam (Ativan) injection 2 mg 2 mg, [...] RN) 0841 (Given - Provider: Aleena Sanchez RN)1428 (Given - Provider: Aleena Sanchez RN)2099 (Due) metoprolol tartrate (Lopressor) tablet 50 mg 50 mg, oral, 2 times daily, First dose on Tue06/10/23 at 2099 2022 (Given - Provider: Minnie Power RN) 0833 (Given - Provider: Callie Jenkins RN)2138 (Given - Provider: Roopa Jimenez RN) 0841 (Given - Provider: Aleena Sanchez RN)2099 (Due) midazolam (Versed) injection 2 mg (COMPLETED) 2 mg, intravenous, Once, On Tue06/10/23 at 0900, For 1 dose, Preprocedure 09 (Given - Provider: Amanda Lynch RN) montelukast (Singulair) tablet 10 mg 10 mg, oral, Nightly, First dose on Tue06/10/23 at 2099 2022 (Given - Provider: Minnie Power RN) 2138 (Given - Provider: Roopa Jimenez RN) 2099 (Due) nystatin (Mycostatin) 100,000 unit/gram powder Topical, 2 times daily, First dose on Tue06/10/23 at 2099, Apply to skin 2129 (Given - Provider: Minnie Power RN) 0839 (Given - Provider: Callie Jenkins RN)2100 (Not Given - Provider: Roopa Jimenez RN - Reason: Patient/family refused) 1033 (Given - Provider: Aleena Sanchez RN - Comment: waiting for patient to shower)2100 (Due) ondansetron (Zofran) injection 4 mg (COMPLETED) 4 mg, intravenous, Once, On Tue06/10/23 at 0900, For 1 dose, Preprocedure, When administering via IV Push, administer over 3-5 minutes. 0959 (Given - Provider: Amanda Lynch RN) pantoprazole [...] RN) 0832 (Not Given - Provider: Callie Jenkins RN - Reason: Other) povidone-iodine 5 % kit kit (COMPLETED) Topical, Once, On Tue06/10/23 at 0900, For 1 dose, Preprocedure 0900 (Given - Provider: Amanda Lynch RN - Comment: no barcode to scan) sertraline (Zoloft) tablet 50 mg 50 mg, oral, Daily, First dose on Tue06/10/23 at 1915 1915 (Due)193 (Held by provider - Provider: Jasmyne Soliz [...] g (COMPLETED) 5 g, oral, Once, On Tue06/11/23 at 1530, For 1 dose 1705 (Given - Provider: Callie Jenkins RN) tiotropium (Spiriva) 18 mcg per inhalation capsule 18 mcg 18 mcg (1 capsule), inhalation, Daily RT, First dose on 06/11/23 at 0700 0846 (Given - Provider: Evelyn Forbes RRT) 0814 (Given - Provider: Evelyn Forbes RRT) [...] split., Tranexamic Acid Indication: Surgical Prophylaxis: Orthopedic 1653 (Given - Provider: Mignon Starkey RN) tranexamic acid (Lysteda) tablet 1,950 mg (COMPLETED) 1,950 mg, oral, Once, On 06/11/23 at 0600, For 1 dose, Phase II/On Unit, Second dose administered post-op day 1 at 0600. Do not crush, chew, or split., Tranexamic Acid Indication: Surgical Prophylaxis: Orthopedic 07 (Given - Provider: Minnie Power, PANDA) traZODone (Desyrel) tablet 100 mg 100 mg, oral, Nightly, First dose on Tue06/10/23 at 2100 2022 (Given - Provider: Minnie Power RN) 2139 (Given - Provider: Roopa Jimenez RN) 2100 (Due) vancomycin 1,500 mg in dextrose 5 [...] RN) 0541 (Rate/Dose Verify - Provider: Minnie Power, PANDA)0842 (Stopped - Provider: Callie Jenkins RN) oxygen (O2) therapy 2 L/min, inhalation, Continuous, Starting on Tue06/10/23 at 1500, Phase II/On Unit, Titrate supplemental oxygen to maintain oxygen saturation greater than or equal to 92%., Device: Nasal Cannula, Rate in liters per minute: 2 LPM, Keep O2 Sat Above: 92% 1500 (Rate/Dose Verify - Provider: Shazia Danielle, EYEGLASS ASSEMBLER) sodium chloride 0.9% infusion (CANCELED) 75 mL/hr, intravenous, Continuous, Starting on Tue06/10/23 at 1900 1900 (Canceled Entry - Provider: Mignon Starkey RN) 0913 (New Bag - Provider: Callie Jenkins, PANDA)1445 (Stopped - Provider: Callie Jenkins, PANDA) PRN Medication Order 06/10/2023 06/11/2023 06/12/2023 albuterol 2.5 mg /3 mL (0.083 %) nebulizer solution 2.5 mg (CANCELED) 2.5 mg, nebulization, Every 6 hours PRN, wheezing, Starting on Tue06/10/23 at 1426 1426 (Given - Provider: Shazia Danielle, ZAHIDA) albuterol 2.5 mg /3 mL (0.083 %) [...] 1814 (Given - Provider: Mignon Starkey RN) 219 (Given - Provider: Minnie Power RN) 035 (Given - Provider: Roopa Jimenez RN - [...] pain scores based on patient preference? Yes 1656 (Given - Provider: Mignon Starkey RN)2137 (Given - Provider: Minnie Power RN) 0831 (Given - Provider: Callie Jenkins RN)1424 (Given - Provider: Callie Jenkins, PANDA)2138 (Given - Provider: Roopa Jimenez RN) oxyCODONE [...] at 1853 0833 (Given - Provider: Callie Jenkins RN) 1253 (Given - Provider: Aleena Sanchez, PANDA) Linked Groups Order Group 1: ondansetron ODT [...] Nightly, First dose on Tue04/13/23 at 2100 2038 (Given - Provider: Norah Varner, PANDA) 2099 (Due) azithromycin (Zithromax) tablet 500 mg 500 mg, oral, Every 24 hours scheduled, First dose on Tue04/14/23 at 0900, Suspected Indication (Select all that [...] not swallow. 1145 (Given - Provider: Sherry Langston, EYEGLASS ASSEMBLER - Comment: new med order)1841 (Given - [...] mg daily 2038 (Given - Provider: Norah Varner RN) 2100 (Due) gabapentin (Neurontin) capsule 600 mg 600 mg, oral, 3 times daily, First dose on Tue04/13/23 at 0900, Capsules may be opened and sprinkled on food (eg, applesauce, orange juice, pudding). Capsules may be opened and sprinkled on food (eg, applesauce, orange juice, pudding 1154 (Given - Provider: lOga Hugo RN)1541 (Given - Provider: Olga Hugo RN)2038 (Given - Provider: Norah Varner RN) 0836 (Given - Provider: Olga Hugo RN)1500 (Due)2100 (Due) insulin glargine (Lantus) injection 30 Units 30 Units, subcutaneous, 2 times daily, First dose on Tue04/13/23 at 2100 2038 (Given - Provider: Norah Varner, PANDA) 0842 (Given - Provider: Olga Hugo RN)2100 (Due) insulin lispro (HumaLOG) injection 0-15 Units [...] 1200 1142 (Given - Provider: Sherry Langston, EYEGLASS ASSEMBLER)1840 (Given - Provider: Radha Byrne, ZAHIDA) 0052 (Given - Provider: Radha Byrne RRT)0635 (Given - Provider: Demarcus Gerardo RRT)1142 (Given - Provider: Sherry Langston RRT)1800 (Due - Provider: Sherry Langston EYEGLASS ASSEMBLER) levothyroxine (Synthroid, Levoxyl) tablet 25 mcg 25 mcg, oral, Daily, First dose on Tue04/14/23 at 0600 0520 (Given - Provider: Norah Varner, PANDA) levothyroxine (Synthroid, Levoxyl) tablet 50 mcg 50 mcg, oral, Nightly, First dose on Tue04/13/23 at 2100 2039 (Given - Provider: Norah Varner RN) 2100 (Due) linaCLOtide (Linzess) capsule 145 mcg [...] dose 0603 (New Bag - Provider: Ashley Andino RN)0623 (Stopped - Provider: Ashley Andino RN) magnesium sulfate IV 2 g (COMPLETED) 2 [...] Comment: Administered 1ml of diluted definity as technical services assistant instructed.) polyethylene glycol (Glycolax, Miralax) packet 17 [...] 0650 0650 (New Bag - Provider: Ashley Adnino, PANDA)1350 (Rate/Dose Verify - Provider: Olga Hugo RN) [...] pain scores based on patient preference? Yes 6047 (Given - Provider: Camacho Varner RN) Linked [...] Care Teams (unrecognized sec tion and content) Respooler Relationship Specialty Start Date End Date Ida Ely, DEMO COORDINATOR [address] [facility] [address] [place] [address] PCP - General Nurse Practitioner 08/25/20 Greg Abdul MD [address] [facility] [address] [place] [address] Consulting Physician Gastroenterology 11/12/19 Respooler Relationship Specialty Start Date End Date Callie Mcdonough PA-C [address] [place] [facility] [place] [address] PCP - General 04/22/22 Respooler Relationship Specialty Start Date End Date Callie Mcdonough PA-C [address] [place] [address] PCP - General 04/22/22 Darian Riley MD [address] [place] [address] PCP - Anthem Medicare Advantage PCP 05/12/22 Respooler Relationship Specialty Start Date End Date Callie Mcdonough PA-C [address] [place] [facility] [place] [address] PCP - General 04/22/22 Darian Riley MD [address] [place] [address] PCP - Anthem Medicare Advantage PCP 05/12/22 Respooler Relationship Specialty Start Date End Date Callie Mcdonough PA-C [address] [place] [facility] [place] [address] PCP - General 04/22/22 Darian Riley MD [address] [place] [address] PCP - Anthem Medicare Advantage PCP 05/12/22 Respooler Relationship Specialty Start Date End Date Callie Mcdonough PA-C [address] [place] [address] PCP - General 04/22/22 Darian Riley MD [address] [place] [address] PCP - Anthem Medicare Advantage PCP 05/12/22 Respooler Relationship Specialty Start Date End Date Callie Mcdonough PA-C [address] [place] [address] PCP - General 04/22/22 Darian Riley MD [address] [place] [address] PCP - Anthem Medicare Advantage PCP 05/12/22 Respooler Relationship Specialty Start Date End Date Callie Mcdonough PA-C [address] [place] [address] PCP - General 04/22/22 Darian Riley MD [address] [place] [address] PCP - Anthem Medicare Advantage PCP 05/12/22 Respooler Relationship Specialty Start Date End Date Callie Mcdonough PA-C [address] [place] [address] PCP - General 04/22/22 Darian Riley MD [address] [place] [address] PCP - Anthem Medicare Advantage PCP 05/12/22 Respooler Relationship Specialty Start Date End Date Callie Mcdonough PA-C [address] [facility] [place] [address] PCP - General 04/22/22 Respooler Relationship Specialty Start Date End Date Callie Mcdonough PA-C [address] [place] [address] PCP - General 04/22/22 Respooler Relationship Specialty Start Date End Date Callie Mcdonough PA-C [address] [place] [address] PCP - General 04/22/22 Shadia Daley, CASE MAKER-DEMO COORDINATOR [address] [facility], [address] [place] [address] PCP - MMO Medicare Advantage PCP 02/09/23 Respooler Relationship Specialty Start Date End Date Callie Mcdonough PA-C [address] [place] [facility] [place] [address] PCP - General 04/22/22 Shadia Daley, CASE MAKER-DEMO COORDINATOR [address] [facility], [address] [place] [address] PCP - O Medicare Advantage PCP 02/09/23 Fischer, Gretel, MACHINE PACKAGE SEALER Proposal Development ManagerRehabilitation Director 04/06/23 Respooler Relationship Specialty Start Date End Date Callie Mcdonough PA-C [address] [facility] [place] [address] PCP - General 04/22/22 Shadia Daley, CASE MAKER-DEMO COORDINATOR [address] [facility], [address] [place] [address] PCP - MMO Medicare Advantage PCP 02/09/23 Gretel Fischer CMA Proposal Development ManagerRehabilitation Director 04/06/23 Respooler Relationship Specialty Start Date End Date Callie Mcdonough PA-C [address] [place] [place] [address] PCP - General 04/22/22 Shadia Daley, CASE MAKER-DEMO COORDINATOR [address] [facility], [address] [place] [address] PCP - MMO Medicare Advantage PCP 02/09/23 Gretel Fischer CMA Proposal Development ManagerRehabilitation Director 04/06/23 Respooler Relationship Specialty Start Date End Date Callie Mcdonough PA-C [address] [place] [place] [address] PCP - General 04/22/22 Shadia Daley, CASE MAKER-DEMO COORDINATOR [address] [facility], [address] [place] [address] PCP - MMO Medicare Advantage PCP 02/09/23 Gretel Fischer, RAGHAVENDRA Proposal Development ManagerRehabilitation Director 04/06/23 Respooler Relationship Specialty Start Date End Date Callie Mcdonough PA-C [address] [place] [address] PCP - General 04/22/22 Shadia Daley, CASE MAKER-DEMO COORDINATOR [address] [facility], [address] [place] [address] PCP - MMO Medicare Advantage PCP 02/09/23 Gretel Fischer, [facility] Proposal Development ManagerRehabilitation Director 04/06/23 Respooler Relationship Specialty Start Date End Date Callie Mcdonough, OLIVIA [address] [place] [address] PCP - General 04/22/22 Shadia Dlaey, CASE MAKER-DEMO COORDINATOR [address] [facility], [address] [place] [address] PCP - MMO Medicare Advantage PCP 02/09/23 Gretel Fischer, [facility] Proposal Development ManagerRehabilitation Director 04/06/23 Respooler Relationship Specialty Start Date End Date Callie Mcdonough, OLIVIA [address] [place] [address] PCP - General 04/22/22 Shadia Daley, CASE MAKER-DEMO COORDINATOR [address] [facility], [address] [place] [address] PCP - MMO Medicare Advantage PCP 02/09/23 Respooler Relationship Specialty Start Date End Date Callie Mcdonough, OLIVIA [address] [place] [address] PCP - General 04/22/22 Shadia Daley, CASE MAKER-DEMO COORDINATOR [address] [facility], [address] [place] [address] PCP - MMO Medicare Advantage PCP 02/09/23 Respooler Relationship Specialty Start Date End Date Callie Mcdonough PA-C [address] [place] [address] PCP - General 04/22/22 Shadia Daley, CASE MAKER-DEMO COORDINATOR [address] [facility], [address] [place] [address] PCP - MMO Medicare Advantage PCP 02/09/23 Gretel Fischer, RAGHAVENDRA Proposal Development ManagerRehabilitation Director 04/06/23 Respooler Relationship Specialty Start Date End Date Callie Mcdonough PA-C [address] [place] [address] PCP - General 04/22/22 Shadia Daley, CASE MAKER-DEMO COORDINATOR [address] [facility], [address] [place] [address] PCP - MMO Medicare Advantage PCP 02/09/23 Gretel Fischer [facility] Proposal Development ManagerRehabilitation Director 04/06/23 Respooler Relationship Specialty Start Date End Date Callie Mcdonough, OLIVIA [address] [place] [address] PCP - General 04/22/22 Shadia Daley, CASE MAKER-DEMO COORDINATOR [address] [facility], [address] [place] [address] PCP - MMO Medicare Advantage PCP 02/09/23 Gretel Fischer, RAGHAVENDRA Proposal Development ManagerRehabilitation Director 04/06/23 Respooler Relationship Specialty Start Date End Date Callie Mcdonough, OLIVIA [address] [place] [place] [address] PCP - General 04/22/22 Shadia Daley, CASE MAKER-DEMO COORDINATOR [address] [facility], [address] [place] [address] PCP - MMO Medicare Advantage PCP 02/09/23 Gretel Fischer, MACHINE PACKAGE SEALER Proposal Development ManagerRehabilitation Director 04/06/23 Respooler Relationship Specialty Start Date End Date Callie Mcdonough PA-C [address] [place] [address] PCP - General 04/22/22 Shadia Daley, CASE MAKER-DEMO COORDINATOR [address] [facility], [address] [place] [address] PCP - MMO Medicare Advantage PCP 02/09/23 Gretel Fischer, MACHINE PACKAGE SEALER Proposal Development ManagerRehabilitation Director 04/06/23 Respooler Relationship Specialty Start Date End Date Callie Mcdonough, OLIVIA [address] [place] [address] PCP - General 04/22/22 Shadia Daley, CASE MAKER-DEMO COORDINATOR [address] [facility], [address] [place] [address] PCP - MMO Medicare Advantage PCP 02/09/23 Gretel Fischer, MACHINE PACKAGE SEALER Proposal Development ManagerRehabilitation Director 04/06/23 Respooler Relationship Specialty Start Date End Date Callie Mcdonough PA-C [address] [place] [address] PCP - General 04/22/22 Shadia Daley, CASE MAKER-DEMO COORDINATOR [address] [facility], [address] [place] [address] PCP - MMO Medicare Advantage PCP 02/09/23 Gretel Fischer, RAGHAVENDRA Proposal Development ManagerRehabilitation Director 04/06/23 Respooler Relationship Specialty Start Date End Date Callie Mcdonough PA-C [address] [place] [address] PCP - General 04/22/22 Shadia Daley, CASE MAKER-DEMO COORDINATOR [address] [facility], [address] [place] [address] PCP - MMO Medicare Advantage PCP 02/09/23 Gretel Fischer, RAGHAVENDRA Proposal Development ManagerRehabilitation Director 04/06/23 Respooler Relationship Specialty Start Date End Date Callie Mcdonough PA-C [address] [place] [address] PCP - General 04/22/22 Shadia Daley, CASE MAKER-DEMO COORDINATOR [address] [facility], [address] [place] [address] PCP - MMO Medicare Advantage PCP 02/09/23 Gretel Fischer, RAGHAVENDRA Proposal Development ManagerRehabilitation Director 04/06/23 Respooler Relationship Specialty Start Date End Date Callie Mcdonough PA-C [address] [place] [address] PCP - General 04/22/22 Shadia Daley, CASE MAKER-DEMO COORDINATOR [address] [facility], [address] [place] [address] PCP - MMO Medicare Advantage PCP 02/09/23 Gretel Fischer, MACHINE PACKAGE SEALER Proposal Development ManagerRehabilitation Director 04/06/23 Respooler Relationship Specialty Start Date End Date Callie Mcdonough, OLIVIA [address] [place] [place] [address] PCP - General 04/22/22 Shadia Daley, CASE MAKER-DEMO COORDINATOR [address] [facility], [address] [place] [address] PCP - MMO Medicare Advantage PCP 02/09/23 Gretel Fischer, RAGHAVENDRA Proposal Development ManagerRehabilitation Director 04/06/23 Respooler Relationship Specialty Start Date End Date Callie Mcdonough, OLIVIA [address] [place] [place] [address] PCP - General 04/22/22 Respooler Relationship Specialty Start Date End Date Callie Mcdonough PA-C [address] [place] [address] PCP - General 04/22/22 Shadia Daley, CASE MAKER-DEMO COORDINATOR [address] [facility], [address] [place] [address] PCP - MMO Medicare Advantage PCP 02/09/23 Gretel Fischer, MACHINE PACKAGE SEALER Proposal Development ManagerRehabilitation Director 04/06/23 Respooler Relationship Specialty Start Date End Date Callie Mcdonough PA-C [address] [place] [address] PCP - General 04/22/22 Shadia Daley, CASE MAKER-DEMO COORDINATOR [address] [facility], [address] [place] [address] PCP - MMO Medicare Advantage PCP 02/09/23 Gretel Fischer, [facility] Proposal Development ManagerRehabilitation Director 04/06/23 Respooler Relationship Specialty Start Date End Date Callie Mcdonough PA-C [address] [place] [address] PCP - General 04/22/22 Shadia Daley, CASE MAKER-DEMO COORDINATOR [address] [facility], [address] [place] [address] PCP - MMO Medicare Advantage PCP 02/09/23 Gretel Fischer, [facility] Proposal Development ManagerRehabilitation Director 04/06/23 Respooler Relationship Specialty Start Date End Date Callie Mcdonough PA-C [address] [place] [address] PCP - General 04/22/22 Gretel Fischer, [facility] Proposal Development ManagerRehabilitation Director 04/06/23 Respooler Relationship Specialty Start Date End Date Callie Mcdonough PA-C [address] [place] [address] PCP - General 04/22/22 Shadia Daley, CASE MAKER-DEMO COORDINATOR [address] [facility], [address] [place] [address] PCP - MMO Medicare Advantage PCP 02/09/23 04/10/23 Respooler Relationship Specialty Start Date End Date Callie Mcdonough PA-C [address] [place] [place] [address] PCP - General 04/22/22 Respooler Relationship Specialty Start Date End Date Callie Mcdonough PA-C [address] [place] [address] PCP - General 04/22/22 Respooler Relationship Specialty Start Date End Date Callie Mcdonough PA-C [address] [facility] [place] [address] PCP - General 04/22/22 Respooler Relationship Specialty Start Date End Date Callie Mcdonough PA-C [address] [place] [address] PCP - General 04/22/22 Respooler Relationship Specialty Start Date End Date Callie Mcdonough PA-C [address] [place] [address] PCP - General 04/22/22 Shadia Daley, CASE MAKER-DEMO COORDINATOR [address] [facility], [facility] [address] [place] [address] PCP - MMO Medicare Advantage PCP 02/09/23 Gretel Fischer CMA Proposal Development ManagerRehabilitation Director 04/06/23 <item><item><item><item><item><item><item><item> Privacy Markings (unrecogniz ed section [...] BE BASED ON THE PRIMARY CLINICAL RECORDS. [facility]. provides no warranty or guarantee of the accuracy or completeness of information in this document.
[2024-01-13] VITALS (11 sets, daily range): BP systolic 112–138; BP diastolic 56–78; PULSE 61–80; RESP 16–18; TEMP 36.2–37; O2SAT 93–100; BMI 44.5
[2024-01-13] MEDS: Nystatin Powder 15gm Bottle 1 APPLIC TOPICAL ×3 (00:28→21:46)
[2024-01-13] MEDS: Gabapentin 800 MG Tablet PO ×3 (05:41→21:43)
[2024-01-13] MEDS: Levothyroxine 75 MCG Tablet PO (05:41)
[2024-01-13 05:45] LABS: Absolute Neutrophil Count 8.8 X10^3/uL (2.0-7.7); Basophil# 0.01 X10^3/uL; Basophil% 0.1 % (0-1); Hematocrit 32.7 % (37-47); Hemoglobin 10.3 g/dL (12.0-15.0); Mean Corp Hgb Conc 31.5 g/dL (32-36); Mean Corpuscular Hgb 28.3 pg (27.0-32.0); Mean Corpuscular Volume 89.8 fL (81-99); Mean Platelet Vol. 11.7 fl (6.2-12.0); Monocyte# 0.31 X10^3/uL; Monocyte% 3.1 % (0-10); NRBC Flagged by Analyzer 0 % (0-5); Neutrophil # 8.81 X10^3/uL (2.7-7.7); Neutrophil % 87.5 % (47-70); POSITIVE COUNT YES; Platelet Count 76 K/mm3 (150-450); RBC Distribution Width CV 14.6 % (11.6-14.6); RBC Distribution Width SD 47.2 fl (35.1-43.9); Red Blood Count 3.64 M/mm3 (4.2-5.4); White Blood Count 10.1 K/mm3 (4.4-11.0)
[2024-01-13 06:50] LABS: ALB/GLOB Ratio 0.5 RATIO (0.9-2.4); AST(SGOT) 13 U/L (15-37); Alanine Aminotransfer ALT/SGPT 18 U/L (13-56); Albumin, Serum 1.9 g/dL (3.2-5.0); Alkaline Phosphatase 159 U/L (45-117); Anion Gap 6 (5-15); BUN 16 mg/dL (7-18); BUN/Creat Ratio 10.5 RATIO (10-20); Chloride 99 mmol/L (98-107); Cholesterol 130 mg/dL (200); Creatinine, Serum 1.52 mg/dL (0.55-1.02); EST Glomerular Filtration Rate 36 mL/min (>60); Est Glom Filt Rate - Afr Amer 44 mL/min (>60); Glucose 273 mg/dL (74-106); High Density Lipoprotein 60 mg/dL; Potassium 4.6 mmol/L (3.5-5.1); Protein, Total 5.9 g/dL (6.4-8.2); Sodium Level 132 mmol/L (136-145); Triglycerides 71 mg/dL; Very Low Density Lipoprotein 14 mg/dL (5-40)
[2024-01-13] MEDS: Ipratropium/Albuterol Sulfate 3 ML AMPUL.NEB INHALATION ×2 (07:09→19:08)
--- NOTE | 2024-01-13 08:20 | PCM.PN.HOSP ---
Reason for Visit Reason for Visit: Diagnoses Hypoxemia (01/12/24) Objective Data Objective Data Vital Signs: Vital Signs Temp Pulse Resp BP Pulse Ox O2 Del Method O2 Flow Rate 97.1 F L 70 18 112/73 96 Nasal Cannula 2 01/13/24 04:32 01/13/24 04:32 01/13/24 04:32 01/13/24 04:32 01/13/24 04:32 01/13/24 04:32 01/13/24 04:32 Oxygen Flow Rate (L/min) 2 Oxygen Delivery Method Nasal Cannula Weight: 243 lb 9.773 oz Body Mass Index (BMI) 44.5 Intake & Output: Intake and Output for Last 24 Hours 01/11/24 01/12/24 01/13/24 23:59 23:59 23:59 Intake Total 50 / 50 Balance 50 / 50 Lab / Micro Data 01/13/24 05:12 01/13/24 05:12 Labs: Laboratory Results - last 24 hr 01/12/24 16:56: WBC 15.3 H, RBC 4.00 L, Hgb 11.4 L, Hct 35.9 L, MCV 89.8, MCH 28.5, MCHC 31.8 L, RDW Std Deviation 47.8 H, RDW Coeff of Sidra 14.7 H, Plt Count 95 L, MPV 10.9, Immature Gran % (Auto) 1.100 H, Neut % (Auto) 87.8 H, Lymph % (Auto) 6.8 L, [place] % (Auto) 4.0, Eos % (Auto) 0.1, Baso % (Auto) 0.2, Absolute Neuts (auto) 13.5 H, Absolute Lymphs (auto) 1.04, Nucleated RBC % 0, Differential Comment SCANNED, Sodium 134 L, Potassium 4.8, Chloride 102, Carbon Dioxide 28.0, Anion Gap 5, BUN 11, Creatinine 1.48 H, Estim Creat Clear Calc 43.94, Est GFR (MDRD) Af Amer 45 L, Est GFR (MDRD) Non-Af 37 L, BUN/Creatinine Ratio 7.4 L, Glucose 183 H, Lactic Acid 1.6, Calcium 8.5, Total Bilirubin 0.80, Direct Bilirubin 0.18, AST 30, ALT 24, Alkaline Phosphatase 206 H, Troponin I High Sens 13, B-Natriuretic Peptide 144.1 H, Total Protein 6.6, Albumin 2.3 L, Globulin 4.3 H 01/12/24 17:45: Urine Color Danitza, Urine Clarity Clear, Urine pH 7.0, Ur Specific [place] 1.010, Urine Protein 500 H, Urine Glucose (UA) Normal, Urine Ketones Negative, Urine Occult Blood 150 H, Urine Nitrite Negative, Urine Bilirubin Negative, Urine Urobilinogen 1 H, Ur Leukocyte Esterase 25 H, Urine RBC > 100 SEEN, Urine WBC 5-10 SEEN, Ur Squamous Epith Cells 10-25 SEEN, Urine Bacteria 2+, Urine Mucus 0 SEEN 01/12/24 19:10: Troponin I High Sens 15 01/12/24 19:53: Urine Color Yellow, Urine Clarity Sl. Cloudy, Urine pH 6.0, Ur Specific [place] 1.010, Urine Protein 500 H, Urine Glucose (UA) Normal, Urine Ketones Negative, Urine Occult Blood 150 H, Urine Nitrite Negative, Urine Bilirubin Negative, Urine Urobilinogen Normal, Ur Leukocyte Esterase Negative, Urine RBC 0 SEEN, Urine WBC 5-10 SEEN, Ur Squamous Epith Cells 0-5 SEEN, Amorphous Sediment 3+, Urine Bacteria 0 SEEN, Urine Mucus 0 SEEN 01/12/24 20:00: Magnesium 1.6, Procalcitonin 1.74 H 01/12/24 21:19: POC Glucose 212 H 01/12/24 23:00: Troponin I High Sens 11 01/13/24 05:12: WBC 10.1, RBC 3.64 L, Hgb 10.3 L, Hct 32.7 L, MCV 89.8, MCH 28.3, MCHC 31.5 L, RDW Std Deviation 47.2 H, RDW Coeff of Sidra 14.6, Plt Count 76 L, MPV 11.7, Immature Gran % (Auto) 1.300 H, Neut % (Auto) 87.5 H, Lymph % (Auto) 8.0 L, Barn[place] % (Auto) 3.1, Eos % (Auto) 0.0, Baso % (Auto) 0.1, Absolute Neuts (auto) 8.8 H, Absolute Lymphs (auto) 0.80 L, Nucleated RBC % 0, Sodium 132 L, Potassium 4.6, Chloride 99, Carbon Dioxide 27.0, Anion Gap 6, BUN 16, Creatinine 1.52 H, Estim Creat Clear Calc 42.10, Est GFR (MDRD) Af Amer 44 L, Est GFR (MDRD) Non-Af 36 L, BUN/Creatinine Ratio 10.5, Glucose 273 H, Calcium 8.0 L, Total Bilirubin 0.40, AST 13 L, ALT 18, Alkaline Phosphatase 159 H, Total Protein 5.9 L, Albumin 1.9 L, Globulin 4.0, Albumin/Globulin Ratio 0.5 L, Triglycerides 71, Cholesterol 130, LDL Cholesterol 56, VLDL Cholesterol 14, HDL Cholesterol 60, TSH 1.360 Micro: Microbiology 01/12/24 19:53 Urine Catheter - Catheter Legionella Antigen - Final 01/12/24 19:53 Urine Catheter - Catheter Streptococcus pneumoniae Antigen (M - Final 01/12/24 17:02 Mucosa - Nose SARS-CoV-2, Influenza & RSV (PCR) - Final Radiography Diagnostic Testing: Radiology Impression Chest X-Ray 01/12/24 17:30 IMPRESSION: Small right pleural effusion and mild right basilar atelectasis Electronically Signed: Kirt Ruff MD at 17:55 EDT , Physical Exam Narrative Seen and examined Patient had increased shortness of breath. Denies chest pain but might be chest congestion. Increased leg swelling left more than right. Denies wheezing or acute cough or change in cough. Has COPD. Undergoing echo Physical exam General: Alert, Oriented x3, Cooperative. Morbid obesity BMI 44.6 kg/m? HEENT: Atraumatic, PERRLA, EOMI, Normocephalic Oral: No Gingival or Mucosal Lesions/ Ulcerations Neck: Supple, No JVD, Negative Carotid Bruits Chest wall/Lungs: Air entry diminished in bilateral lung bases. Mild expiratory rhonchi. Hypoxia Cardiovascular: RSinus hythm, Normal S1, Normal S2, systolic murmur Abdomen: Bowel Sounds Present, Soft, Non Tender, Non-Distended : No dysuria. No renal angle tenderness. No suprapubic tenderness. Extremities: Bilateral pitting edema left more than right, Capillary Refill Less than 3 Seconds Skin: No rashes, No breakdown Musculoskeletal: Tenderness present in the left calf. Had left TKR 8 months Neurological: Cranial nerves II-XII grossly intact, DTR 2+/4. No acute focal neurological deficit. Psych/Mental Status: Normal Affect, Appropriate. Assessment & Plan Assessment/Plan (1) Hypoxia: PLAN: Plan The patient is a 68 y/o F admitted with progressive worsening of shortness of breath more on exertion for 2 to 3 days. She was recently discharged from with pneumonia. She is not on home oxygen but was found hypoxic and tachypneic by EMS and ED. No fever or chills #1. Acute Hypoxia secondary to Recently Diagnosed Pneumonia, unclear organism and unclear location with suspected Acute on Chronic COPD Exacerbation, presumed CAP and Questionable HF exacerbation (concern per ED): Patient admitted in PCU. Patient is being managed on scheduled bronchodilator, IV Solu-Medrol, Mucinex , incentive spirometry and Pep. Urinary antigens and triple PCR for SARS-CoV-2, flu and RSV are negative. Empirically on IV antibiotic, IV furosemide. 01/12: 2D echo was done EF 65%. Trivial MR. #2. Abnormal UA: Microscopic hematuria. Urine culture shows no growth. Patient does not have dysuria, urgency or increased frequency #3. Normocytic anemia, unclear chronicity, appears new but no notable lab trending apparent: Admission CBC with hemoglobin 11.4, MCV 89.8, baseline noted previously remotely 06/20/22 hemoglobin 15.3, will continue to trend CBC and further investigate pending further trending. #4. Diabetes mellitus type II with chronic neuropathy: Hold oral home regimen, continue home insulin regimen, ADA diet, accu checks w/ ISS, continue home gabapentin regimen. #5. Chronic thrombocytopenia: Admission platelets 95, previous 113, unclear etiology, continue to trend CBC. #6. Chronic Kidney Disease Stage III, unclear subtype: Admission BUN/Cr 02/09.48, GFR 37, baseline renal function noted prior 1.14 however this is remote on 06/20/22, repeat BMP in AM to further elucidate. #7. Anxiety and Depression: We will continue patient home citalopram and trazodone nightly regimen. #8. Allergic rhinitis: We will continue patient home montelukast regimen. #9. Former tobacco use: Encourage continued tobacco cessation. #10. Hypothyroidism: Continue home synthroid regimen. #11. Morbid Obesity: Weight loss and lifestyle changes encouraged. #12. DVT prophylaxis: SCDs, will hold chemoprophylaxis concepts given noted hematuria. #13. CODE status: Patient HCPOA and living will are not in place but she notes her sister would be her medical decision-maker if necessary. Discussed CODE status at length including difference between FULL code, DNR-CCA and DNR-CC status. Following discussions about the differences in these status, requested Full Code status. Charges/Coding Visit Charges Inpatient E&M: 19582 Subs Hosp L2
[2024-01-13] MEDS: Insulin Lispro 100 UNIT/ML INSULN.PEN SC ×4 (08:33→21:56)
[2024-01-13] MEDS: Enoxaparin 40 MG/0.4 ML Syringe SC ×2 (08:34→21:43)
[2024-01-13] MEDS: Citalopram 40 MG TABLET PO (08:34)
[2024-01-13] MEDS: Aspirin E.C. 81 MG Tablet PO (08:35)
[2024-01-13] MEDS: Metoprolol Tartrate 50 MG Tablet PO ×2 (08:35→21:42)
[2024-01-13] MEDS: Insulin Glargine-YFGN 100 UNIT/ML Pen 40 UNIT SC ×2 (08:36→21:55)
[2024-01-13] MEDS: Furosemide 40 MG/4 ML Vial IV ×2 (09:19→18:15)
--- NOTE | 2024-01-13 09:27 | VDLE_ITS ---
Reason For Study: BLE Swelling RIGHT LEFT GSV is normal. GSV is normal. CFV is compressible, spontaneous, phasic, CFV is compressible, spontaneous, phasic, competent and demonstrates normal competent, and demonstrates normal augmentation. augmentation. FV is compressible, spontaneous, phasic, FV is compressible, spontaneous, phasic, competent and demonstrates normal competent and demonstrates normal augmentation. augmentation. POP V is compressible, spontaneous, phasic, POP V is compressible, spontaneous, phasic, competent and demonstrates normal competent and demonstrates normal augmentation. augmentation. T/P Trunk is compressible. T/P Trunk is compressible. PTV is compressible. PTV is compressible. RT PerV is compressible. LT PerV is compressible. Procedure Lt Calf veins viewed in segments due to This is a venous duplex using B-mode, color swelling / patient intolerance to flow and spectral Doppler. compressions. Exam performed in department. The exam was diagnostic. The study was technically difficult. A preliminary report was called and/or faxed to Bonita Chavez RN. VL/Venous Duplex US - Francois Extrem Interpretation Summary Deep veins of the bilateral lower extremities are patent and compressible segme ntally. There is no evidence of bilateral lower extremity deep vein thrombosis. The bilateral great saphenous veins appear patent and compressible segmentally. Limited study below knee on the left Ordering Physician: Gian Solis Referring Physician: Deepa Hunt Performed By: Adolfo Akins RVT
[2024-01-13] MEDS: Azithromycin 500 MG in Dextrose 5%-Water (250mL Bag) 250 ML 250 MG IV (09:59)
[2024-01-13] MEDS: guaiFENesin/D-Methorphan TAB.SR.12H 2 TABLET PO ×2 (10:07→21:42)
--- NOTE | 2024-01-13 12:01 | CASEMGMT ---
PANDA CHACON Assessment Face to Face with patient for initial transition planning/care coordination assessment. PANDA CHACON introduced self and role at [facility], pt voices understanding. Pt is A&Ox4 and is resting comfortably in bed and is calm. Care providers, pharmacy, and demographics verified. Admitting dx: Hypoxia PNA vs HF UTI LACE Strata: 1 PCP: Deepa Hunt Specialists: Denies Preferred Pharmacy: [facility] Insurance: [employer] [facility] Prescription Benefit: Yes LNOK: Randi Rizzo (Sister), Melissa Salmeron (Friend) Living Arrangements: Pt lives with her sister and SOHA in a single story home with a basement and 4 steps to enter with a handrail. Pt states that she does not use the basement ADLs/IADLs: States ind Transportation: Self, Sister, Denies concerns DME:Blood glucose monitor and sufficient supplies. BP Monitor, nebulizer, Pox, cane, FWW. Pt may qualify for home oxygen. A verbal list of local in-network DME companies provided to the pt at this time. Pt states that she prefers [facility] if she qualifies for home oxygen. HHC/SNF: Denies history or needs Pt?s goal: Home Plan: Home with potential oxygen. At this time, there is no note in from PT, but pt states that PT saw her and that she did good and it went well. Pt denies the need for HHC, OP Tx, or CCN. Pt states that her sister is a nurse and that she will be able to help care for the pt at home. Pt denies further questions or concerns at this time. Trino Gomez RN, CM
[2024-01-13 12:02] LABS: Bedside Glucose 443 mg/dL (74-106)
[2024-01-13] MEDS: 0.9% Saline Lock 10 ML Syringe IV ×2 (15:09→18:16)
[2024-01-13 17:03] LABS: Bedside Glucose 330 mg/dL (74-106)
[2024-01-13] MEDS: Montelukast 10 MG Tablet PO (21:42)
[2024-01-13] MEDS: traZODone 100 MG Tablet PO (21:43)
[2024-01-13] MEDS: Atorvastatin Calcium 20 MG Tablet PO (21:43)
[2024-01-13 22:01] LABS: Bedside Glucose 390 mg/dL (74-106)
[2024-01-14] VITALS (8 sets, daily range): BP systolic 151–165; BP diastolic 79–86; PULSE 70–82; RESP 16–18; TEMP 35.6–36.4; O2SAT 90–97
[2024-01-14] MEDS: Ceftriaxone 1 GM/50 ML BAG IV (01:13)
[2024-01-14] MEDS: Levothyroxine 75 MCG Tablet PO (05:21)
[2024-01-14] MEDS: Gabapentin 800 MG Tablet PO (05:22)
[2024-01-14 06:01] LABS: Absolute Lymphocyte Count 0.66 X10^3/uL (0.83-4.51); Absolute Neutrophil Count 8.4 X10^3/uL (2.0-7.7); Basophil# 0.01 X10^3/uL; Basophil% 0.1 % (0-1); Hemoglobin 10.5 g/dL (12.0-15.0); Lymphocyte # 0.66 X10^3/ul (0.83-4.51); Lymphocyte % 6.9 % (19-41); Mean Corp Hgb Conc 31.8 g/dL (32-36); Mean Corpuscular Hgb 28.3 pg (27.0-32.0); Mean Corpuscular Volume 88.9 fL (81-99); Mean Platelet Vol. 12.4 fl (6.2-12.0); Monocyte# 0.42 X10^3/uL; Monocyte% 4.4 % (0-10); NRBC Flagged by Analyzer 0 % (0-5); Neutrophil # 8.37 X10^3/uL (2.7-7.7); Neutrophil % 87.7 % (47-70); POSITIVE COUNT YES; Platelet Count 83 K/mm3 (150-450); RBC Distribution Width CV 14.3 % (11.6-14.6); RBC Distribution Width SD 46.4 fl (35.1-43.9); Red Blood Count 3.71 M/mm3 (4.2-5.4); White Blood Count 9.6 K/mm3 (4.4-11.0)
[2024-01-14 06:47] LABS: Anion Gap 8 (5-15); BUN 23 mg/dL (7-18); BUN/Creat Ratio 14.7 RATIO (10-20); Calcium,Total 8.5 mg/dL (8.5-10.1); Chloride 93 mmol/L (98-107); Creatinine, Serum 1.56 mg/dL (0.55-1.02); EST Glomerular Filtration Rate 35 mL/min (>60); Est Glom Filt Rate - Afr Amer 43 mL/min (>60); Estimated Creatinine Clearance 41.02 ml/min; Glucose 363 mg/dL (74-106); Potassium 4.5 mmol/L (3.5-5.1); Sodium Level 127 mmol/L (136-145)
[2024-01-14] MEDS: Ipratropium/Albuterol Sulfate 3 ML AMPUL.NEB INHALATION (06:58)
[2024-01-14] MEDS: Insulin Lispro 100 UNIT/ML INSULN.PEN SC ×2 (07:31→12:42)
[2024-01-14 07:48] LABS: Bedside Glucose 344 mg/dL (74-106)
[2024-01-14 08:15] LABS: BNP,B-Type NATRIURETIC PEPTIDE 167.8 pg/mL (0-100)
[2024-01-14] MEDS: Aspirin E.C. 81 MG Tablet PO (09:27)
[2024-01-14] MEDS: Insulin Glargine-YFGN 100 UNIT/ML Pen 40 UNIT SC (09:27)
[2024-01-14] MEDS: Enoxaparin 40 MG/0.4 ML Syringe SC (09:27)
[2024-01-14] MEDS: Citalopram 40 MG TABLET PO (09:27)
[2024-01-14] MEDS: guaiFENesin/D-Methorphan TAB.SR.12H 2 TABLET PO (09:27)
[2024-01-14] MEDS: Metoprolol Tartrate 50 MG Tablet PO (09:27)
[2024-01-14] MEDS: 0.9% Saline Lock 10 ML Syringe IV (09:29)
--- NOTE | 2024-01-14 09:30 | DCINST_ITS ---
Discharge Instructions Diet Discharge Diet: 8 Cup Fluid Restriction and 2000 mg Sodium Diet Activity Discharge Activity: Return to Normal Activity Weight Bearing Status: Weight bearing as tolerated Dressing / Incision Call your doctor if you observe: Fever of 101 or Higher, Coldness, Increased Pain, Numbness or Tingling, Change in Color, Inability to urinate, Inability to have a bowel movement, Shortness of breath, Dizziness, Fainting spells, Swelling in the ankles, Chest pain, Prolonged hiccupping, Increased palpitations (irregular heartbeat) and Calf discomfort Follow Up Care When: IN 2 WEEKS Test Results: Test results from this visit will be discussed in further detail at your follow- up appointment, if applicable. Discharge Plan Admission Admit Date/Time: 01/12/24 19:40 Attending Provider: Gian Solis Primary Care Provider: Deepa Hunt Consulting Providers: Meg Rojas Discharge Orders/Prescriptions Prescriptions: New sennosides-docusate sodium [Stimulant Laxative Plus] 8.6-50 mg Tablet 2 tab PO BID PRN PRN (Reason: Constipation) Qty: 0 0RF metoprolol succinate 100 mg tablet extended release 24 hr 100 mg PO DAILY 30 Days Qty: 30 2RF Rx Instructions: Hold for heart less than 50 or systolic blood pressure less than 100 mmHg. furosemide 40 mg tablet 40 mg PO DAILY 30 Days Qty: 30 2RF Rx Instructions: Take extra 40 mg dose at 5 PM for increased leg swelling or weight gain 5 pounds in 1 week. prednisone 20 mg tablet 40 mg PO DAILY 5 Days Qty: 10 0RF dextromethorphan-guaifenesin [Mucinex DM] 60-1,200 mg tablet extended release 12 hr 1 tab PO Q12H 7 Days Qty: 14 0RF doxycycline monohydrate 100 mg tablet 100 mg PO BID 5 Days Qty: 10 0RF Continued ondansetron 4 mg tablet,disintegrating 8 mg PO Q8H PRN PRN (Reason: Nausea) Qty: 20 0RF atorvastatin 20 mg tablet 20 mg PO DAILY citalopram 40 mg tablet 40 mg PO DAILY aspirin 81 mg tablet,delayed release (DR/EC) 81 mg PO DAILY gabapentin 800 mg tablet 800 mg PO TID insulin glargine [Lantus Solostar U-100 Insulin] 100 unit/mL (3 mL) insulin pen 40 unit subcut BID levothyroxine 75 mcg tablet 75 mcg PO DAILY trazodone 100 mg tablet 100 mg PO QHS montelukast 10 mg tablet 10 mg PO QHS Discontinued metoprolol tartrate 50 mg tablet 50 mg PO BID Referrals / Follow Up: Mauro Chavis DO [Med Staff - Active Staff] - Within 2 Weeks Phoebe Lopez PA [Med Staff - Adv Practice Prof] - Within 1 Week Deepa Hunt PA [Primary Care Provider] - Disposition Disposition (needs filled in before D/C Order can be placed): Home Health Service
--- NOTE | 2024-01-14 09:47 | DS.PCM_ITS ---
Providers Date of Admission: 01/12/24 Date of Discharge: 01/14/24 Primary Care Physician: APOLONIA Crowell Reason For Visit: HYPOXIA PNA VS HF UTI Diagnosis Discharge Diagnosis (1) Hypoxia: Status: Acute Code(s): R09.02 - Hypoxemia Plan The patient is a 68 y/o F admitted with progressive worsening of shortness of breath more on exertion for 2 to 3 days. She was recently discharged from with pneumonia. She is not on home oxygen but was found hypoxic and tachypneic by EMS and ED. No fever or chills #1. Acute Hypoxia secondary to Recently Diagnosed Pneumonia, unclear organism and unclear location with suspected Acute COPD Exacerbation, HF exacerbation, acute on chronic HFpEF: Patient admitted in PCU. Patient is being managed on scheduled bronchodilator, IV Solu-Medrol, Mucinex , incentive spirometry and Pep. Urinary antigens and triple PCR for SARS-CoV-2, flu and RSV are negative. Empirically on IV antibiotic, IV furosemide. 01/12: 2D echo was done EF 65%. Trivial MR. 01/13: Patient quickly improved on IV furosemide therefore most likely heart failure exacerbation. BNP elevated. Patient is still smokes 5 cigarettes/day. Uses nicotine patch, was recently treated for with pneumonia and do not think patient had pneumonia as chest x-ray does not show acute pneumonic infiltrate/consolidation. Patient is discharged on furosemide, burst therapy of prednisone, doxycycline for COPD exacerbation, Mucinex DM. Infectious workup was negative. Home qualification oxygen ordered. Advised follow-up in cardiology and pulmonary clinic. #2. Abnormal UA: Microscopic hematuria. Urine culture shows no growth. Patient does not have dysuria, urgency or increased frequency 01/13: Urine culture was negative/shows mixed gram-positive organism #3. Mild chronic normocytic anemia: Admission CBC with hemoglobin 11.4, MCV 89.8, baseline noted previously remotely 06/20/22 hemoglobin 15.3, will continue to trend CBC and further investigate pending further trending. 01/13: Mild normocytic normochromic anemia. #4. Diabetes mellitus type II with chronic neuropathy: Hold oral home regimen, continue home insulin regimen, ADA diet, accu checks w/ ISS, continue home gabapentin regimen. 01/13: Hypoglycemia due to IV Solu-Medrol: Finger glucose check was high, 492 and Humalog insulin 22 units was given. Repeat after 1 hour was again elevated 439 probably will get have to give time to get better. 5 units extra Humalog insulin given. Advised follow-up with PCP. #5. Chronic thrombocytopenia: Admission platelets 95, previous 113, unclear etiology, continue to trend CBC. 01/13: Platelet count 83,000. Did not show significant drop #6. Chronic Kidney Disease Stage III, unclear subtype: Admission BUN/Cr 111.48, GFR 37, baseline renal function noted prior 1.14 however this is remote on 06/20/22, repeat BMP in AM to further elucidate. 01/13: Creatinine 1.56. Patient is well diuresed therefore IV Lasix discontinued. Discharged on furosemide 40 mg oral daily from tomorrow a.m with instruction to take extra 40 mg dose at 5 PM for increased leg swelling or weight gain 5 pounds in 1 week. #7. Anxiety and Depression: We will continue patient home citalopram and trazodone nightly regimen. #8. Allergic rhinitis: continue patient home montelukast regimen. #9. Current cigarette smoking: Encourage continued tobacco cessation. Still smokes 5 L/day #10. Hypothyroidism: Continue home synthroid regimen. #11. Morbid Obesity: Weight loss and lifestyle changes encouraged. #12. DVT prophylaxis: SCDs, will hold chemoprophylaxis concepts given noted hematuria. #13. CODE status: Patient HCPOA and living will are not in place but she notes her sister would be her medical decision-maker if necessary. Discussed CODE status at length including difference between FULL code, DNR-CCA and DNR-CC status. Following discussions about the differences in these status, requested Full Code status. Discharge medication reconciliation done. Discharge follow-up instructions completed. Discharge process discussed with the patient and all questions were answered to patient's satisfaction. Follow with PCP in 1 to 2 weeks Total time spent, exact 35 minutes on discharge meds reconciliation, examination, coordination of care with nurses and ancillary staff, review of imaging and blood test and discussion with the patient on follow-up instructions. Medications at Discharge Home Medications ondansetron 4 mg disintegrating tablet 8 mg (2 x 4 mg) PO Q8H PRN PRN Nausea #20 tabs 06/20/22 aspirin 81 mg tablet,delayed release 81 mg PO DAILY heart 01/12/24 atorvastatin 20 mg tablet 20 mg PO DAILY cholesterol 01/12/24 citalopram 40 mg tablet 40 mg PO DAILY depression 01/12/24 gabapentin 800 mg tablet 800 mg PO TID nerve pain 01/12/24 insulin glargine 100 unit/mL (3 mL) subcutaneous pen (Lantus Solostar U-100 Insulin) 40 unit subcut BID 01/12/24 levothyroxine 75 mcg tablet 75 mcg PO DAILY thyroid 01/12/24 montelukast 10 mg tablet 10 mg PO QHS allergies 01/12/24 trazodone 100 mg tablet 100 mg PO QHS sleep 01/12/24 dextromethorphan-guaifenesin ER 60 mg-1,200 mg tab,extend release,12hr (Mucinex DM) 1 tab PO Q12H 7 days #14 tabs 01/14/24 doxycycline monohydrate 100 mg tablet 100 mg PO BID 5 days #10 tabs 01/14/24 furosemide 40 mg tablet 40 mg PO DAILY 1 month #30 tabs 01/14/24 metoprolol succinate 100 mg tablet,extended release 24 hr 100 mg PO DAILY 1 month #30 tabs 01/14/24 prednisone 20 mg tablet 40 mg (2 x 20 mg) PO DAILY 5 days #10 tabs 01/14/24 sennosides 8.6 mg-docusate sodium 50 mg tablet (Stimulant Laxative Plus) 2 tab PO BID PRN PRN Constipation #0 tabs 01/14/24 Physical Exam Narrative Seen and examined Shortness of breath significantly improved and patient not on oxygen. No chest pain or congestion. Patient had venous duplex as per nursing staff report, negative but no official report. Patient also had negative DVT when she was admitted in per nursing report. Chronic bronchitis body habitus Physical exam General: Alert, Oriented x3, Cooperative. Morbid obesity BMI 44.6 kg/m? HEENT: Atraumatic, PERRLA, EOMI, Normocephalic Oral: No Gingival or Mucosal Lesions/ Ulcerations Neck: Supple, No JVD, Negative Carotid Bruits Chest wall/Lungs: Air entry diminished in bilateral lung bases. No crepitation/rhonchi. Hypoxia resolved Cardiovascular: RSinus hythm, Normal S1, Normal S2, systolic murmur Abdomen: Bowel Sounds Present, Soft, Non Tender, Non-Distended : No dysuria. No renal angle tenderness. No suprapubic tenderness. Extremities: Bilateral pitting edema left more than right, Capillary Refill Less than 3 Seconds Skin: No rashes, No breakdown Musculoskeletal: Tenderness present in the left calf. Had left TKR 8 months Neurological: Cranial nerves II-XII grossly intact, DTR 2+/4. No acute focal neurological deficit. Psych/Mental Status: Normal Affect, Appropriate. Weight / BMI Weight Weight: 243 lb 9.773 oz Body Mass Index (BMI) 44.5 ABG / Lab / Microbiology Data 01/14/24 04:45 01/14/24 11:03 Laboratory: Laboratory Results - last 24 hr 01/12/24 17:45: Urine Color [place], Urine Clarity Clear, Urine pH 7.0, Ur Specific [place] 1.010, Urine Protein 500 H, Urine Glucose (UA) Normal, Urine Ketones Negative, Urine Occult Blood 150 H, Urine Nitrite Negative, Urine Bilirubin Negative, Urine Urobilinogen 1 H, Ur Leukocyte Esterase 25 H, Urine RBC > 100 SEEN, Urine WBC 5-10 SEEN, Ur Squamous Epith Cells 10-25 SEEN, Urine Bacteria 2+, Urine Mucus 0 SEEN 01/13/24 11:24: POC Glucose 443 H 01/13/24 16:43: POC Glucose 330 H 01/13/24 21:36: POC Glucose 390 H 01/14/24 04:45: WBC 9.6, RBC 3.71 L, Hgb 10.5 L, Hct 33.0 L, MCV 88.9, MCH 28.3, MCHC 31.8 L, RDW Std Deviation 46.4 H, RDW Coeff of Sidra 14.3, Plt Count 83 L, M PV 12.4 H, Immature Gran % (Auto) 0.900, Neut % (Auto) 87.7 H, Lymph % (Auto) 6.9 L, [place] % (Auto) 4.4, Eos % (Auto) 0.0, Baso % (Auto) 0.1, Absolute Neuts (auto) 8.4 H, Absolute Lymphs (auto) 0.66 L, Nucleated RBC % 0, Sodium 127 L, Potassium 4.5, Chloride 93 L, Carbon Dioxide 26.0, Anion Gap 8, BUN 23 H, C reatinine 1.56 H, Estim Creat Clear Calc 41.02, Est GFR (MDRD) Af Amer 43 L, Est GFR (MDRD) Non-Af 35 L, BUN/Creatinine Ratio 14.7, Glucose 363 H, Calcium 8.5, B -Natriuretic Peptide 167.8 H 01/14/24 07:29: POC Glucose 344 H Microbiology: Microbiology 01/12/24 17:45 Urine, Clean Catch Urine Culture - Final Mixed Gram Positive Organisms 01/12/24 17:45 Urine, Clean Catch Urine Culture - Final Mixed Gram Positive Organisms 01/12/24 20:13 Mucosa - Nasopharyngeal Respiratory Panel (PCR) - Final 01/12/24 19:53 Urine Catheter - Catheter Legionella Antigen - Final 01/12/24 19:53 Urine Catheter - Catheter Streptococcus pneumoniae Antigen (M - Final 01/12/24 17:02 Mucosa - Nose SARS-CoV-2, Influenza & RSV (PCR) - Final Radiography Diagnostic Testing: Radiology Impression Echocardiogram 01/12/24 21:07 Interpretation Summary The estimated ejection fraction is 65 %. Diastolic function is indeterminate. Trivial mitral valve insufficiency. Ordering Physician: Meg Rojas Referring Physician: Deepa Hunt Performed By: Deepa Epstein, TATUM, RVT D/C Instructions Discharge Diet: 8 Cup Fluid Restriction and 2000 mg Sodium Diet Weight Bearing Status: Weight bearing as tolerated Call your doctor if you observe: Fever of 101 or Higher, Coldness, Increased Pain, Numbness or Tingling, Change in Color, Inability to urinate, Inability to have a bowel movement, Shortness of breath, Dizziness, Fainting spells, Swelling in the ankles, Chest pain, Prolonged hiccupping, Increased palpitations (irregular heartbeat) and Calf discomfort When: IN 2 WEEKS Meaningful Use Info Meaningful Use Meaningful Use Diagnoses (Choose all that apply): None applicable Ischemic Stroke Statin Dosing Therapy Reference: STATIN DOSE THERAPY REFERENCE: * Patients > 75 years receive moderate or high dose statin therapy. * Patients 75 years or YOUNGER should receive HIGH intensity statin dose unless contraindicated. You will be required to document reason for non-treatment if statin daily dose does not meet guidelines. HIGH DOSE STATIN THERAPY DAILY Atorvastatin > than or = to 40 mg Rosuvastatin > than or = to 20 mg Amlodipine + Atorvastatin > than or = to 2.5/40 mg Ezetimibe + Simvastatin 10/80 mg Simvastatin 80mg Discharge Plan Admission Admit Date/Time: 01/12/24 19:40 Attending Provider: Gian Solis Primary Care Provider: Deepa Hunt Consulting Providers: Meg Rojas Discharge Orders/Prescriptions Prescriptions: New sennosides-docusate sodium [Stimulant Laxative Plus] 8.6-50 mg Tablet 2 tab PO BID PRN PRN (Reason: Constipation) Qty: 0 0RF metoprolol succinate 100 mg tablet extended release 24 hr 100 mg PO DAILY 30 Days Qty: 30 2RF Rx Instructions: Hold for heart less than 50 or systolic blood pressure less than 100 mmHg. furosemide 40 mg tablet 40 mg PO DAILY 30 Days Qty: 30 2RF Rx Instructions: Take extra 40 mg dose at 5 PM for increased leg swelling or weight gain 5 pounds in 1 week. prednisone 20 mg tablet 40 mg PO DAILY 5 Days Qty: 10 0RF dextromethorphan-guaifenesin [Mucinex DM] 60-1,200 mg tablet extended release 12 hr 1 tab PO Q12H 7 Days Qty: 14 0RF doxycycline monohydrate 100 mg tablet 100 mg PO BID 5 Days Qty: 10 0RF Continued ondansetron 4 mg tablet,disintegrating 8 mg PO Q8H PRN PRN (Reason: Nausea) Qty: 20 0RF atorvastatin 20 mg tablet 20 mg PO DAILY citalopram 40 mg tablet 40 mg PO DAILY aspirin 81 mg tablet,delayed release (DR/EC) 81 mg PO DAILY gabapentin 800 mg tablet 800 mg PO TID insulin glargine [Lantus Solostar U-100 Insulin] 100 unit/mL (3 mL) insulin pen 40 unit subcut BID levothyroxine 75 mcg tablet 75 mcg PO DAILY trazodone 100 mg tablet 100 mg PO QHS montelukast 10 mg tablet 10 mg PO QHS Discontinued metoprolol tartrate 50 mg tablet 50 mg PO BID Referrals / Follow Up: Mauro Chavis DO [Med Staff - Active Staff] - Within 2 Weeks Phoebe Lopez, PA [Med Staff - Adv Practice Prof] - Within 1 Week Deepa Hunt, PA [Primary Care Provider] - Disposition Disposition (needs filled in before D/C Order can be placed): Home Health Service Charges/Coding Visit Charges Inpatient E&M: 55591 Disch Hosp >30min
[2024-01-14] MEDS: Azithromycin 500 MG in Dextrose 5%-Water (250mL Bag) 250 ML 250 MG IV (09:48)
[2024-01-14] MEDS: Nystatin Powder 15gm Bottle 1 APPLIC TOPICAL (10:48)
[2024-01-14] MEDS: hydrALAZINE 50 MG Tablet PO (10:48)
[2024-01-14] MEDS: Insulin Lispro 100 UNIT/ML INSULN.PEN 10 UNIT SC (11:10)
[2024-01-14] MEDS: Insulin Lispro 100 UNIT/ML INSULN.PEN 12 UNIT SC (11:10)
[2024-01-14 11:11] LABS: Bedside Glucose 492 mg/dL (74-106)
[2024-01-14 11:43] LABS: Glucose 492 mg/dL (74-106)
[2024-01-14 12:33] LABS: Bedside Glucose 439 mg/dL (74-106)
== END 2024-01-14 13:38 | disposition home or self-care (01) | DRG 291 ==
LOC: ED 17:23 → PCU 20:11
PROVIDERS: Admitting Provider Family Medicine; Emergency Provider Emergency Medicine; PCP Physician Assistant Medical; Referring Provider Emergency Medicine; Visit Provider Internal Medicine
DX: I13.0 Hypertensive heart and chronic kidney disease with heart failure and stage 1 through stage 4 chronic kidney disease, or unspecified chronic kidney disease (principal); I50.33 Acute on chronic diastolic (congestive) heart failure; J44.1 Chronic obstructive pulmonary disease with (acute) exacerbation; Z68.42 Body mass index [BMI] 45.0-49.9, adult; D69.6 Thrombocytopenia, unspecified; E11.40 Type 2 diabetes mellitus with diabetic neuropathy, unspecified; N18.30 Chronic kidney disease, stage 3 unspecified; E03.9 Hypothyroidism, unspecified; F32.A Depression, unspecified; E11.22 Type 2 diabetes mellitus with diabetic chronic kidney disease; E66.01 Morbid (severe) obesity due to excess calories; G43.709 Chronic migraine without aura, not intractable, without status migrainosus; E78.5 Hyperlipidemia, unspecified; Z79.4 Long term (current) use of insulin; E11.649 Type 2 diabetes mellitus with hypoglycemia without coma; J30.9 Allergic rhinitis, unspecified; F17.210 Nicotine dependence, cigarettes, uncomplicated; F41.9 Anxiety disorder, unspecified; T38.0X5A Adverse effect of glucocorticoids and synthetic analogues, initial encounter; R31.29 Other microscopic hematuria; R09.02 Hypoxemia; Z11.52 Encounter for screening for COVID-19; Z79.82 Long term (current) use of aspirin; Z79.890 Hormone replacement therapy; Z79.899 Other long term (current) drug therapy
CPT/HCPCS: 36415; 71046; 80048; 80053; 80061; 80076; 81001; 82947; 82962; 83605; 83735; 83880; 84145; 84443; 84484; 85025; 87040; 87086; 87088; 87449; 87631; 87633; 93005; 93306; 93970; 94640; 94668; 97161; 97165; 97802; 99285; J7050; A4216; J1940

== ENCOUNTER 2024-01-27 18:49 | Inpatient (IN) | payer MEDICARE, SELFPAY ==
[2024-01-27 18:50] VITALS: BP 150/64; PULSE 71; RESP 16; TEMP 36.9; O2SAT 94; BMI 45.1
--- NOTE | 2024-01-27 19:27 | RAD_ITS ---
STUDY: X-RAY - LEFT KNEE REASON FOR EXAM: Female, 68 years old. Pain, swelling status post total knee arthroplasty TECHNIQUE: 4 view(s) of the knee. COMPARISON: None. FINDINGS: Knee prosthesis is noted in anatomic alignment and position. There is no evidence for acute fracture. No definitive evidence for loosening of prosthesis or acute osteomyelitis. Diffuse subcutaneous edema or cellulitis. RAD/Knee 4 or More Views IMPRESSION: Stable appearance to knee prosthesis.. No evidence for acute fracture or definitive evidence for acute osteomyelitis. MRI however would be helpful for more definitive evaluation if indicated Electronically Signed: Kirt Ruff MD at 20:10 EDT ,
[2024-01-27 19:31] VITALS: BP 150/56; PULSE 69; RESP 21; O2SAT 100
[2024-01-27 20:00] LABS: Erythrocyte Sedimentation Rate 34 mm/hr (0-30)
[2024-01-27 20:01] LABS: Absolute Lymphocyte Count 1.28 X10^3/uL (0.83-4.51); Absolute Neutrophil Count 5.9 X10^3/uL (2.0-7.7); Basophil# 0.02 X10^3/uL; Basophil% 0.3 % (0-1); Eosinophil# 0.04 X10^3/uL; Eosinophils% 0.5 % (0-5); Hematocrit 33.3 % (37-47); Hemoglobin 10.7 g/dL (12.0-15.0); Lymphocyte # 1.28 X10^3/ul (0.83-4.51); Lymphocyte % 16.2 % (19-41); Mean Corp Hgb Conc 32.1 g/dL (32-36); Mean Corpuscular Volume 87.2 fL (81-99); Mean Platelet Vol. 10.7 fl (6.2-12.0); Monocyte# 0.57 X10^3/uL; Monocyte% 7.2 % (0-10); NRBC Flagged by Analyzer 0 % (0-5); Neutrophil # 5.89 X10^3/uL (2.7-7.7); Neutrophil % 74.7 % (47-70); Platelet Count 156 K/mm3 (150-450); RBC Distribution Width CV 14.7 % (11.6-14.6); RBC Distribution Width SD 46.5 fl (35.1-43.9); Red Blood Count 3.82 M/mm3 (4.2-5.4); White Blood Count 7.9 K/mm3 (4.4-11.0)
[2024-01-27 20:07] LABS: Anion Gap 3 (5-15); BUN 11 mg/dL (7-18); BUN/Creat Ratio 7.9 RATIO (10-20); Calcium,Total 8.6 mg/dL (8.5-10.1); Chloride 102 mmol/L (98-107); EST Glomerular Filtration Rate 40 mL/min (>60); Est Glom Filt Rate - Afr Amer 48 mL/min (>60); Estimated Creatinine Clearance 46.06 ml/min; Glucose 173 mg/dL (74-106); Potassium 4.3 mmol/L (3.5-5.1); Sodium Level 134 mmol/L (136-145)
[2024-01-27 21:00] VITALS: BP 182/71; PULSE 69; RESP 20; O2SAT 100
[2024-01-27 22:00] VITALS: O2SAT 100
--- NOTE | 2024-01-27 22:13 | ED.VIS.LOWEX ---
HPI History of Present Illness HPI Narrative: Left knee pain. Unable obtain history initially since patient was babbling after receiving fentanyl by squad Chief Complaint: Lower Extremity Injury Informant: patient Occured/Mechanism Comment: Left knee pain Onset/Context/Timing Onset: Weeks (Patient was reassessed after laboratory tests have returned and she is able to speak to me. This started 3 to 4 weeks ago now 3 to 4 days ago) Context: Sudden Onset Timing: Continuous Quality of Pain: Dull and Aching Location: Left knee Current Severity: Mild Maximum Severity: Severe Worsened by: Unable to bear weight Relieved by: Nothing Associated Symptoms Associated Symptoms: Positive for Loss of Funtion; Negative for Parasthesia or Weakness Narrative Narrative: Patient is a 68-year-old woman status post left total knee arthroplasty performed many years ago at [facility]. She denies fever, chills night sweats. She denies trauma direct or indirect. Once she was able to answer my questions was determined that this has been going on for 3 to 4 weeks. She lives in a 1 level floor. She is present staying with her sister. She is having difficulty performing activities of daily living. She arrived by ambulance. She denies fever, chills night sweats. She denies history of gout or pseudogout. She denies prior history of infection of the left knee. Tetanus Immunization: Unknown Prior similar symptoms: No Recent Illness/Hospitalization: No [facility] Medical History Hypoxia Diabetes mellitus, type 2 Thrombocytopenia Allergic rhinitis Hypothyroidism Anxiety and depression Morbid obesity CKD (chronic kidney disease), stage III Hyperlipidemia Hypertension Home Medications ?Medication ?Instructions ?Recorded ?Last Taken ?Type ondansetron 4 mg disintegrating 8 mg (2 x 4 mg) PO Q8H PRN PRN 06/20/22 Unknown Rx tablet Nausea #20 tabs aspirin 81 mg tablet,delayed 81 mg PO DAILY heart 01/12/24 Unknown History release atorvastatin 20 mg tablet 20 mg PO DAILY cholesterol 01/12/24 Unknown History citalopram 40 mg tablet 40 mg PO DAILY depression 01/12/24 Unknown History gabapentin 800 mg tablet 800 mg PO TID nerve pain 01/12/24 Unknown History insulin glargine 100 unit/mL (3 40 unit subcut BID 01/12/24 Unknown History mL) subcutaneous pen (Lantus Solostar U-100 Insulin) levothyroxine 75 mcg tablet 75 mcg PO DAILY thyroid 01/12/24 Unknown History montelukast 10 mg tablet 10 mg PO QHS allergies 01/12/24 Unknown History trazodone 100 mg tablet 100 mg PO QHS sleep 01/12/24 Unknown History dextromethorphan-guaifenesin ER 60 1 tab PO Q12H 7 days #14 tabs 01/14/24 Unknown Rx mg-1,200 mg tab,extend release,12hr (Mucinex DM) doxycycline monohydrate 100 mg 100 mg PO BID 5 days #10 tabs 01/14/24 Unknown Rx tablet furosemide 40 mg tablet 40 mg PO DAILY 1 month #30 tabs 01/14/24 Unknown Rx metoprolol succinate 100 mg 100 mg PO DAILY 1 month #30 tabs 01/14/24 Unknown Rx tablet,extended release 24 hr prednisone 20 mg tablet 40 mg (2 x 20 mg) PO DAILY 5 days 01/14/24 Unknown Rx #10 tabs sennosides 8.6 mg-docusate sodium 2 tab PO BID PRN PRN Constipation 01/14/24 Unknown Rx 50 mg tablet (Stimulant Laxative #0 tabs Plus) Allergy/AdvReac Type Severity Reaction Status Date / Time No Known Allergies Allergy Verified 01/27/24 18:50 Family History Mother Brain aneurysm Father Hypertension Heart disease Heart failure Surgical History History of total left knee replacement Hx of oophorectomy Social History household members: family Smoking Status: Current every day smoker tobacco type: cigarettes alcohol intake: never substance use type: does not use ROS ROS ED Constitutional Constitutional ED: Denies chills, fever(s) or subjective Eyes Eyes: Denies blurry vision or change in vision ENT ENT ED: Denies ear pain or rhinorrhea Cardiovascular Cardiovascular: Denies chest pain or palpitations Respiratory/Chest Respiratory/Chest: Denies cough, dyspnea or dyspnea on exertion Gastrointestinal Gastrointestinal: Denies nausea or vomiting Musculoskeletal Musculoskeletal: Reports other Details: Left knee pain. Integumentary Denies rash Hematologic/Lymphatic Hematologic/Lymphatic: Denies easy bleeding or easy bruising EXAM Physical Exam Const Vital Signs: 01/27/24 18:50 01/27/24 19:31 01/27/24 21:00 Temperature 98.4 F Temperature Source Oral Pulse Rate 71 69 69 Respiratory Rate 16 21 H 20 H Blood Pressure 150/64 H 150/56 H 182/71 H Blood Pressure Mean 92 87 108 Pulse Ox 94 100 100 Oxygen Delivery Method Room Air Nasal Cannula Nasal Cannula Oxygen Flow Rate (L/min) 5 Positive well nourished and well developed Constitutional Narrative: Patient is in discomfort when I palpate the knee. Patient initially was unable to answer questions because she was administered fentanyl by the squad. Because she was noted to be hypoxic initially nurse put her on oxygen. I requested that a capnometer replaced since she has a BMI greater than 40 and hypoxic. General Appearance ED: well developed HEENT Reports moist mucous membranes normocephalic and atraumatic Eyes PERRL Eyes Narrative: Extract muscles intact. Sclera is anicteric. Neck full ROM and supple Resp normal respiratory effort, no retractions and clear to auscultation bilaterally Cardio regular rate, regular rhythm, S1 normal heart sound, S2 normal heart sound and no murmurs GI non-tender, non-distended and no masses GI Narrative: Exam limited due to body habitus Auscultation: normoactive bowel sounds Palpation: soft Extremity Negative for normal to inspection Extremity Narrative: Patient has limited range of motion of the knee. The left knee is swollen. Slightly warm. There is no erythema. Unable determine if there is an effusion. Incision is well-healed. General Extremety ED: Yes weight-bearing difficulty General Extremity: weight-bearing difficulty Neuro oriented x3, CN's II-XII intact bilaterally and moves all extremities Sensorium / Orientation: alert Psych mental status grossly normal Skin no wounds MDM MDM MDM Narrative Medical decision making narrative: Because initially patient told me the pain started 3 to 4 days ago concerned this may represent pyogenic arthritis. For this reason electrolyte panel, CBC, ESR and C-reactive protein was obtained as well as x-ray. She states her doctor ordered an x-ray to be done on Tuesday. Once she was able to answer questions as previously noted this started 3 to 4 weeks ago. This changes concern for pyogenic arthritis. Lab Data Attestation: I reviewed the patient's lab results. Lab results narrative: White count is normal. Patient has anemia with normal indices. ESR slightly elevated however is normal once corrected for age. C-reactive protein is elevated 66.7. Electrolyte panel visit elevated creatinine with an estimated GFR of 40. Glucose is elevated 173. She med list provided would indicate the patient has type 1 diabetes. Nurse states that she is unable to bear weight without grimacing and concern for falling. Labs: Laboratory Results - last 24 hr 01/27/24 19:40 WBC 7.9 RBC 3.82 L Hgb 10.7 L Hct 33.3 L MCV 87.2 MCH 28.0 MCHC 32.1 RDW Std Deviation 46.5 H RDW Coeff of Sidra 14.7 H Plt Count 156 MPV 10.7 Immature Gran % (Auto) 1.100 H Neut % (Auto) 74.7 H Lymph % (Auto) 16.2 L [place] % (Auto) 7.2 Eos % (Auto) 0.5 Baso % (Auto) 0.3 Absolute Neuts (auto) 5.9 Absolute Lymphs (auto) 1.28 Nucleated RBC % 0 ESR 34 H Sodium 134 L Potassium 4.3 Chloride 102 Carbon Dioxide 30.0 Anion Gap 3 L BUN 11 Creatinine 1.40 H Estim Creat Clear Calc 46.06 Est GFR (MDRD) Af Amer 48 L Est GFR (MDRD) Non-Af 40 L BUN/Creatinine Ratio 7.9 L Glucose 173 H Calcium 8.6 C-React Prot Ext Range 66.70 H Radiography Diagnostic Testing: Clinical Impression(s) from Imaging Studies Knee X-Ray 01/27/24 19:27 IMPRESSION: Stable appearance to knee prosthesis.. No evidence for acute fracture or definitive evidence for acute osteomyelitis. MRI however would be helpful for more definitive evaluation if indicated Electronically Signed: Kirt Ruff MD at 20:10 EDT , Management Discussion w/another healthcare provider: Hospitalist Treatment and Re-Evaluation Narrative: Nurse states that she is unable to bear weight without grimacing and concern for falling. Since patient is unable to perform activities daily of without sister assistance unable now to bear weight will speak with hospitalist for MedSurg jobs with consult to OT and PT. Discharge Plan Dx/Rx/DC Orders Clinical Impression: Inability to ambulate due to left knee, Hypoxia, BMI greater than 40 Disposition Disposition: Acute Care Hospital [facility]
--- NOTE | 2024-01-27 22:52 | PCM.HP.STD ---
HPI - General General Date of Admission: 01/27/24 Date of Service: 01/27/24 Chief Complaint: Intractable L knee pain, debility, adult FTT HPI Narrative The patient is a 58 y/o F w/ PMHx: COPD w/ Chronic Hypoxic Respiratory Failure (patient reporting 5L NC but was not reported during prior presentation, uncertain if true), ? HFpEF, Morbid obesity, Anxiety and Depression, HTN, HLD, Hypothyroidism, CKD stage III unclear subtype per GFR trending, Allergic rhinitis, Diabetes mellitus type II, Tobacco use, Suspected BEBA, recent discharge 01/14/24 following evaluation and treatment for concern for possible volume overload versus pneumonia and possible COPD exacerbation discharged on completion of antibiotic therapy, judicious diuresis, alteration to her metoprolol regimen and steroid regimen who presents to the [facility] ED on 01/27/24 with history of ongoing intractable left knee pain starting 3 to 4 weeks previous described as a dull aching, throbbing, worse with any attempted weightbearing with no fevers or chills or any night sweats and no apparent trauma or falls but because of the stability she has recently been staying with her sister as she cannot perform her normal ADLs but given ongoing pain prompted ED evaluation to be cautious. She denies any previous infection to the left knee and has not had any issues with the prosthesis status post replacement until this time. In the ED left lower extremity is extremely edematous from toe to knee 3+ pitting edema with pain elicited with palpation of any of this region. Workup in the ED included T98.4, heart rate 71, BP 150/64, respiratory rate 16, 94% on room air, CBC with WBC 7.9, hemoglobin 10.7, MCV 87.2, platelet 156 with increased immature granulocytes, ESR 34, CRP 66.70, BMP with sodium 134, BUN/creatinine 11/1.40, GFR 40, glucose 173, plain film of the left knee with stable appearance of the knee prosthesis with no evidence of any fracture or osteomyelitis, LLE duplex US negative. [facility] Medical History (HFpEF) heart failure with preserved ejection fraction Chronic hypoxic respiratory failure, on home oxygen therapy COPD (chronic obstructive pulmonary disease) Diabetes mellitus, type 2 Thrombocytopenia Allergic rhinitis Hypothyroidism Anxiety and depression Morbid obesity CKD (chronic kidney disease), stage III Hyperlipidemia Hypertension Home Medications ?Medication ?Instructions ?Recorded ?Last Taken ?Type ondansetron 4 mg disintegrating 8 mg (2 x 4 mg) PO Q8H PRN PRN 06/20/22 Unknown Rx tablet Nausea #20 tabs aspirin 81 mg tablet,delayed 81 mg PO DAILY heart 01/12/24 Unknown History release atorvastatin 20 mg tablet 20 mg PO DAILY cholesterol 01/12/24 Unknown History citalopram 40 mg tablet 40 mg PO DAILY depression 01/12/24 Unknown History gabapentin 800 mg tablet 800 mg PO TID nerve pain 01/12/24 Unknown History insulin glargine 100 unit/mL (3 40 unit subcut BID 01/12/24 Unknown History mL) subcutaneous pen (Lantus Solostar U-100 Insulin) levothyroxine 75 mcg tablet 75 mcg PO DAILY thyroid 01/12/24 Unknown History montelukast 10 mg tablet 10 mg PO QHS allergies 01/12/24 Unknown History trazodone 100 mg tablet 100 mg PO QHS sleep 01/12/24 Unknown History dextromethorphan-guaifenesin ER 60 1 tab PO Q12H 7 days #14 tabs 01/14/24 Unknown Rx mg-1,200 mg tab,extend release,12hr (Mucinex DM) furosemide 40 mg tablet 40 mg PO DAILY 1 month #30 tabs 01/14/24 Unknown Rx metoprolol succinate 100 mg 100 mg PO DAILY 1 month #30 tabs 01/14/24 Unknown Rx tablet,extended release 24 hr prednisone 20 mg tablet 40 mg (2 x 20 mg) PO DAILY 5 days 01/14/24 Unknown Rx #10 tabs sennosides 8.6 mg-docusate sodium 2 tab PO BID PRN PRN Constipation 01/14/24 Unknown Rx 50 mg tablet (Stimulant Laxative #0 tabs Plus) amlodipine 5 mg tablet 5 mg PO DAILY 01/27/24 Unknown History cyanocobalamin (vitamin B-12) 1,000 mcg PO QODAY 01/27/24 Unknown History 1,000 mcg tablet duloxetine 20 mg capsule,delayed 20 mg PO BID 01/27/24 Unknown History release omeprazole 40 mg capsule,delayed 40 mg PO 01/27/24 Unknown History release Allergy/AdvReac Type Severity Reaction Status Date / Time No Known Allergies Allergy Verified 01/27/24 18:50 Family History Mother Brain aneurysm Father Hypertension Heart disease Heart failure Surgical History History of total left knee replacement Hx of oophorectomy Social History household members: family Smoking Status: Current every day smoker tobacco type: cigarettes Smoking packs per day: 0.25 Smoking cigarettes per day: 5.0 alcohol intake: never substance use type: does not use ROS ROS Narrative Admission Review of Systems: CONSTITUTIONAL: No weight loss, fever, chills, + weakness or fatigue. HEENT: Eyes: No visual loss, blurred vision, double vision or yellow sclerae. Ears, Nose, Throat: No hearing loss, sneezing, congestion, runny nose or sore throat. SKIN: No rash or itching, lesions, wounds. CARDIOVASCULAR: + LLE edema. No chest pain, chest pressure or chest discomfort, palpitations, syncopal events. RESPIRATORY: No dyspnea, cough, marked sputum production, wheezing, hemoptysis. GASTROINTESTINAL: No anorexia, nausea, vomiting or diarrhea, abdominal pain, melena, BRBPR. GENITOURINARY: No dysuria, frequency, urgency or retention. NEUROLOGICAL: + History of chronic migraines. No dizziness, syncope, paralysis, ataxia, numbness or tingling in the extremities, focal weakness, change in bowel or bladder control, seizure. MUSCULOSKELETAL: + muscle, back pain, joint pain or stiffness. HEMATOLOGIC: + Chronic anemia, easy bleeding/bruising. LYMPHATICS: No enlarged nodes. No history of splenectomy. PSYCHIATRIC: + History of anxiety and depression. ENDOCRINOLOGIC: No reports of sweating, cold or heat intolerance. No polyuria or polydipsia. ALLERGIES: + History of allergic rhinitis. Vital Signs Vital Signs Vital Signs: 01/27/24 18:50 01/27/24 19:31 01/27/24 21:00 Temperature 98.4 F Temperature Source Oral Pulse Rate 71 69 69 Respiratory Rate 16 21 H 20 H Blood Pressure 150/64 H 150/56 H 182/71 H Blood Pressure Mean 92 87 108 Pulse Ox 94 100 100 Oxygen Delivery Method Room Air Nasal Cannula Nasal Cannula Oxygen Flow Rate (L/min) 5 Weight Weight: 246 lb 11.156 oz Body Mass Index (BMI) 45.1 Physical Exam Narrative Physical Examination: General: Awake, alert, oriented x 3 and cooperative, seated upright in the ED bed, uncomfortable appearing, reporting pain to the left knee 10 of 10 severity and ongoing. Skin: Normal color, normal turgor, no icterus, no cyanosis except occasional stage ecchymoses, no evidence of any erythema around the knee or any wounds or abrasions around the knee. HEENT: AT/NC, EOMI, PERRLA, MMM, no carotid bruits or JVD noted; however, thickened neck makes evaluation difficult. Lungs: Diminished, greater bases, appropriate effort, no rales, rhonchi or wheezing. Heart: Regular rate and rhythm; no gallop, rub audible. Abdomen: Soft, morbidly obese, NTTP, distant normal BS, difficulty discerning distention and HSM given habitus. Extremities: No cyanosis, no clubbing, left lower extremity pedal to mid caruso 3+ pitting edema, tender to palpation, no marked increased warmth to the left knee but just as with the distal leg pain with palpation of the left knee also. Neurological: Patient awake, alert, oriented as noted, cognitive function intact; pupils equally reactive to light and accommodation, cranial nerves gross normal, moving all 4 extremities, no focal deficits, strength moderately to severely globally decreased. Psychiatric: Affect appears uncomfortable, fatigued, no acute evidence of depressive or anxiety feelings but does have underlying history. Results Lab / Micro Data 01/27/24 19:40 01/27/24 19:40 Labs: Laboratory Results - last 24 hr 01/27/24 19:40: WBC 7.9, RBC 3.82 L, Hgb 10.7 L, Hct 33.3 L, MCV 87.2, MCH 28.0, MCHC 32.1, RDW Std Deviation 46.5 H, RDW Coeff of Sidra 14.7 H, Plt Count 156, MPV 10.7, Immature Gran % (Auto) 1.100 H, Neut % (Auto) 74.7 H, Lymph % (Auto) 16.2 L, [place]y % (Auto) 7.2, Eos % (Auto) 0.5, Baso % (Auto) 0.3, Absolute Neuts (auto) 5.9, Absolute Lymphs (auto) 1.28, Nucleated RBC % 0, ESR 34 H, Sodium 134 L, Potassium 4.3, Chloride 102, Carbon Dioxide 30.0, Anion Gap 3 L, BUN 11, Creatinine 1.40 H, Estim Creat Clear Calc 46.06, Est GFR (MDRD) Af Amer 48 L, Est GFR (MDRD) Non-Af 40 L, BUN/Creatinine Ratio 7.9 L, Glucose 173 H, Calcium 8.6, C-React Prot Ext Range 66.70 H Imaging Radiology Impression Knee X-Ray 01/27/24 19:27 IMPRESSION: Stable appearance to knee prosthesis.. No evidence for acute fracture or definitive evidence for acute osteomyelitis. MRI however would be helpful for more definitive evaluation if indicated Electronically Signed: Kirt Ruff MD at 20:10 EDT , Assessment & Plan Assessment/Plan (1) Inability to ambulate due to left knee: PLAN: Plan The patient is a 58 y/o F w/ PMHx: COPD w/ Chronic Hypoxic Respiratory Failure (patient reporting 5L NC but was not reported during prior presentation, uncertain if true), ? HFpEF, Morbid obesity, Anxiety and Depression, HTN, HLD, Hypothyroidism, CKD stage III unclear subtype per GFR trending, Allergic rhinitis, Diabetes mellitus type II, Tobacco use, Suspected BEBA, recent discharge 01/14/24 following evaluation and treatment for concern for possible volume overload versus pneumonia and possible COPD exacerbation discharged on completion of antibiotic therapy, judicious diuresis, alteration to her metoprolol regimen and steroid regimen who presents to the [facility] ED on 01/27/24 with history of ongoing intractable left knee pain starting 3 to 4 weeks previous described as a dull aching, throbbing, worse with any attempted weightbearing with no fevers or chills or any night sweats and no apparent trauma or falls but because of the stability she has recently been staying with her sister as she cannot perform her normal ADLs but given ongoing pain prompted ED evaluation to be cautious. #1. Debility, weakness, intractable left knee pain of unclear etiology with adult failure to thrive: Will admit to medical surgical floor, maintain on fall precautions, duplex ultrasound in the ED negative thus we will proceed with consultation with orthopedic surgery for consideration of arthrocentesis to assure no infection in the knee although no marked WC elevation or left shift inflammatory ESR and CRP markers are elevated, if any concerns demonstrate possibility for infection will immediately initiate antibiotic therapy, procalcitonin requested and if this in the interim is significantly elevated also we will immediately initiate antibiotic therapy, PT/OT/case management consulted for discharge planning. #2. Chronic COPD with patient reported chronic hypoxic respiratory failure noting 5 L nasal cannula usage chronically: We will need to confirm patient home health care company to be able to confirm that she is actually using 5 L nasal cannula chronically as she seems to be a poor historian, in the interim will maintain on the chronic oxygen supplementation she is noting, maintain on ATC budesonide therapy, PRN albuterol, HOB, IS parameters. #3 recent admission with questionable HFpEF: Prior admission with concern for volume overload potentially diastolic HF exacerbation however this was in the setting of also possible pneumonia and COPD exacerbation thus uncertain if this is a true diagnosis; however, she was discharged to be cautious on metoprolol and Lasix regimen, additionally will continue aspirin, statin, not on a severe/ARB. #4. Normocytic anemia, chronic: Admission CBC with hemoglobin 10.7, MCV 87.2, baseline noted during recent admission 10-11, stable, continue to trend. #5. Diabetes mellitus type II with chronic neuropathy: Hold oral home regimen, continue home insulin regimen, ADA diet, accu checks w/ ISS, continue home gabapentin regimen. #6. Chronic thrombocytopenia: Admission platelets 95, previous 113, unclear etiology, continue to trend CBC. #7. Chronic Kidney Disease Stage III, unclear subtype: Admission BUN/Cr 02/09.40, GFR 37, baseline renal function during recent admission primarily 1.4-1.5, stable, repeat BMP in AM to further elucidate. #8. Anxiety and Depression: We will continue patient home citalopram and trazodone nightly regimen. #9. Allergic rhinitis: We will continue patient home montelukast regimen. #10. Former tobacco use: Encourage continued tobacco cessation. #11. Hypothyroidism: Continue home synthroid regimen. #12. Morbid Obesity: Weight loss and lifestyle changes encouraged. #13. DVT prophylaxis: SCDs, will hold chemoprophylaxis given plan for consultation with orthopedic surgery for consideration of left knee arthrocentesis attempt. #14. CODE status: Patient HCPOA and living will are not in place but she notes her sister would be her medical decision-maker if necessary. Full Code status. Charges/Coding Visit Charges Inpatient E&M: 33124 Init Hosp L2
[2024-01-27 23:00] VITALS: BP 176/78; PULSE 73; RESP 16; O2SAT 99
[2024-01-27 23:22] VITALS: BP 176/78; PULSE 75; RESP 26; TEMP 36.2; O2SAT 99
--- NOTE | 2024-01-27 23:39 | US_ITS ---
INDICATION: LEFT LEG EXAMINATION: Ultrasound US Venous Duplex LE Unilat / Limited TECHNIQUE: Haley scale, pulse wave, and color flow Doppler imaging was performed of the lower extremity venous system. The left greater saphenous, common femoral, femoral, and popliteal veins were interrogated. COMPARISON: No relevant prior comparison study available FINDINGS: There is normal compression, augmentation, and signal throughout the visualized deep left lower extremity veins. No mass or fluid collection. US/Venous Duplex Imag/Limited/Uni IMPRESSION: No sonographic evidence of deep venous thrombosis. Electronically Signed: Mt Ghosh MD at 0:21 EDT ,
[2024-01-28] VITALS (10 sets, daily range): BP systolic 142–150; BP diastolic 50–64; PULSE 65–78; RESP 18–20; TEMP 36.5–37.1; O2SAT 93–100; BMI 43.5
[2024-01-28] MEDS: Ondansetron 4 MG/2 ML Vial IV (00:22)
[2024-01-28] MEDS: Morphine 4 MG/ML Syringe IV (00:22)
[2024-01-28 02:03] LABS: Procalcitonin 0.12 ng/mL (0.00-0.09)
[2024-01-28 05:50] LABS: Bedside Glucose 212 mg/dL (74-106)
[2024-01-28] MEDS: Gabapentin 800 MG Tablet PO ×3 (06:10→22:24)
[2024-01-28] MEDS: Levothyroxine 75 MCG Tablet PO (06:10)
[2024-01-28] MEDS: Insulin Lispro 100 UNIT/ML INSULN.PEN SC ×4 (06:10→22:43)
[2024-01-28 06:42] LABS: Absolute Lymphocyte Count 1.06 X10^3/uL (0.83-4.51); Absolute Neutrophil Count 4.6 X10^3/uL (2.0-7.7); Basophil# 0.02 X10^3/uL; Basophil% 0.3 % (0-1); Eosinophil# 0.03 X10^3/uL; Eosinophils% 0.5 % (0-5); Hematocrit 32.6 % (37-47); Hemoglobin 10.4 g/dL (12.0-15.0); Lymphocyte # 1.06 X10^3/ul (0.83-4.51); Lymphocyte % 16.9 % (19-41); Mean Corp Hgb Conc 31.9 g/dL (32-36); Mean Corpuscular Hgb 28.2 pg (27.0-32.0); Mean Corpuscular Volume 88.3 fL (81-99); Mean Platelet Vol. 10.9 fl (6.2-12.0); Monocyte% 7.9 % (0-10); NRBC Flagged by Analyzer 0 % (0-5); Neutrophil % 73.1 % (47-70); Platelet Count 148 K/mm3 (150-450); RBC Distribution Width CV 14.6 % (11.6-14.6); Red Blood Count 3.69 M/mm3 (4.2-5.4); White Blood Count 6.3 K/mm3 (4.4-11.0)
[2024-01-28 06:45] LABS: ALB/GLOB Ratio 0.3 RATIO (0.9-2.4); AST(SGOT) 15 U/L (15-37); Alanine Aminotransfer ALT/SGPT 14 U/L (13-56); Albumin, Serum 1.6 g/dL (3.2-5.0); Alkaline Phosphatase 218 U/L (45-117); Anion Gap 4 (5-15); BUN 11 mg/dL (7-18); BUN/Creat Ratio 8.2 RATIO (10-20); Calcium,Total 8.4 mg/dL (8.5-10.1); Chloride 101 mmol/L (98-107); Creatinine, Serum 1.34 mg/dL (0.55-1.02); EST Glomerular Filtration Rate 42 mL/min (>60); Est Glom Filt Rate - Afr Amer 51 mL/min (>60); Estimated Creatinine Clearance 47.12 ml/min; Globulin 4.6 g/dL (2.2-4.2); Glucose 236 mg/dL (74-106); Potassium 4.7 mmol/L (3.5-5.1); Protein, Total 6.2 g/dL (6.4-8.2); Sodium Level 133 mmol/L (136-145)
[2024-01-28 07:20] LABS: Bedside Glucose 229 mg/dL (74-106)
[2024-01-28] MEDS: Budesonide Respules 0.5 MG/2 ML AMPUL.NEB. INHALATION ×2 (07:22→19:45)
[2024-01-28] MEDS: Arthritis Pain Compound 60 CLICK TUBE TOPICAL ×2 (09:44→22:11)
[2024-01-28] MEDS: Furosemide 40 MG Tablet PO (09:45)
[2024-01-28] MEDS: Aspirin E.C. 81 MG Tablet PO (09:45)
[2024-01-28] MEDS: Metoprolol(XL)Succ 100 MG Tablet PO (09:46)
[2024-01-28] MEDS: Pantoprazole Sodium 40 MG Tablet PO (09:46)
[2024-01-28] MEDS: amLODIPine 5 MG Tablet PO (09:47)
[2024-01-28] MEDS: DULoxetine Hcl 20 MG Capsule PO ×2 (09:47→22:12)
[2024-01-28] MEDS: Insulin Glargine-YFGN 100 UNIT/ML Pen 40 UNIT SC ×2 (09:48→22:42)
[2024-01-28] MEDS: oxyCODONE 5 MG Tablet PO ×3 (09:55→22:10)
--- NOTE | 2024-01-28 12:37 | CON.PCM.OR_ITS ---
HPI Consult Data Date of Consult: 01/28/24 HPI Narrative HPI Narrative: CHRISTIAN PICKETT, is a 68 F who presents intractable left knee pain. She was admitted to hospital last night. I was consulted this morning for the left knee pain. I saw her in 325. Patient lying in bed. Patient is a poor historian and some of the history was taken on the phone from her sister Billy Rizzo. She has significant left knee pain. She is able to move her knee from about 10 degree flexion to 30 degree flexion with severe pain. She has had a left total knee replacement in August of this year per her own report, although when discussed with patient's sister on the phone it seems like it could have been June of this year. She says that her surgeon has since left [facility] and she has not seen the surgeon for many months. She says that she was able to walk with the help of walker after the surgery for 2 to 3 months but then since then she has had severe difficulty ambulating at least for the last 3 to 4 weeks. She is able to stand and take a few steps per the sister and is able to enter the house which requires a few steps. She denies any fever, although her sister says that she did have fever with chills about a week ago. She has had multiple admissions for pneumonia over the last few months including 1 last month. She had was treated with antibiotics for those. She also receives steroid injections in the back to a pain doctor, although she has not been able to do that for the last few months. She is a known diabetic and her sister says that her sugars at home measurements have gone up to 450 multiple times. No A1c available in our chart. [facility] Medical History (HFpEF) heart failure with preserved ejection fraction Chronic hypoxic respiratory failure, on home oxygen therapy COPD (chronic obstructive pulmonary disease) Diabetes mellitus, type 2 Thrombocytopenia Allergic rhinitis Hypothyroidism Anxiety and depression Morbid obesity CKD (chronic kidney disease), stage III Hyperlipidemia Hypertension Home Medications ?Medication ?Instructions ?Recorded ?Last Taken ?Type ondansetron 4 mg disintegrating 8 mg (2 x 4 mg) PO Q8H PRN PRN 06/20/22 01/27/24 Rx tablet Nausea #20 tabs aspirin 81 mg tablet,delayed 81 mg PO DAILY heart 01/12/24 01/27/24 History release atorvastatin 20 mg tablet 20 mg PO DAILY cholesterol 01/12/24 01/27/24 History citalopram 40 mg tablet 40 mg PO DAILY depression 01/12/24 01/27/24 History gabapentin 800 mg tablet 800 mg PO TID nerve pain 01/12/24 01/27/24 History insulin glargine 100 unit/mL (3 40 unit subcut BID 01/12/24 01/27/24 History mL) subcutaneous pen (Lantus Solostar U-100 Insulin) levothyroxine 75 mcg tablet 75 mcg PO DAILY thyroid 01/12/24 01/27/24 History montelukast 10 mg tablet 10 mg PO QHS allergies 01/12/24 01/27/24 History trazodone 100 mg tablet 100 mg PO QHS sleep 01/12/24 01/27/24 History dextromethorphan-guaifenesin ER 60 1 tab PO Q12H 7 days #14 tabs 01/14/24 01/27/24 Rx mg-1,200 mg tab,extend release,12hr (Mucinex DM) furosemide 40 mg tablet 40 mg PO DAILY 1 month #30 tabs 01/14/24 01/27/24 Rx metoprolol succinate 100 mg 100 mg PO DAILY 1 month #30 tabs 01/14/24 01/27/24 Rx tablet,extended release 24 hr prednisone 20 mg tablet 40 mg (2 x 20 mg) PO DAILY 5 days 01/14/24 01/27/24 Rx #10 tabs sennosides 8.6 mg-docusate sodium 2 tab PO BID PRN PRN Constipation 01/14/24 01/27/24 Rx 50 mg tablet (Stimulant Laxative #0 tabs Plus) amlodipine 5 mg tablet 5 mg PO DAILY 01/27/24 01/27/24 History cyanocobalamin (vitamin B-12) 1,000 mcg PO QODAY 01/27/24 01/27/24 History 1,000 mcg tablet duloxetine 20 mg capsule,delayed 20 mg PO BID 01/27/24 01/27/24 History release omeprazole 40 mg capsule,delayed 40 mg PO 01/27/24 01/26/24 History release Allergy/AdvReac Type Severity Reaction Status Date / Time No Known Allergies Allergy Verified 01/27/24 18:50 Family History Mother Brain aneurysm Father Hypertension Heart disease Heart failure Surgical History History of total left knee replacement Hx of oophorectomy Social History household members: family Smoking Status: Current every day smoker tobacco type: cigarettes Smoking packs per day: 0.25 Smoking cigarettes per day: 5.0 and e-cigarettes alcohol intake: never substance use type: does not use Vital Signs Vital Signs Vital Signs: 01/27/24 18:50 01/27/24 19:31 01/27/24 21:00 Temperature 98.4 F Temperature Source Oral Pulse Rate 71 69 69 Respiratory Rate 16 21 H 20 H Respiratory Effort Respiratory Depth Respiratory Pattern Blood Pressure 150/64 H 150/56 H 182/71 H Blood Pressure Mean 92 87 108 Blood Pressure Source Blood Pressure Position Blood Pressure Location Pulse Ox 94 100 100 Oxygen Delivery Method Room Air Nasal Cannula Nasal Cannula Oxygen Flow Rate (L/min) 5 01/27/24 23:00 01/27/24 23:22 01/28/24 00:59 Temperature 97.2 F L Temperature Source Pulse Rate 73 75 Respiratory Rate 16 26 H Respiratory Effort Normal Non-Labored Respiratory Depth Normal Respiratory Pattern Normal Blood Pressure 176/78 H 176/78 H Blood Pressure Mean 110 110 Blood Pressure Source Blood Pressure Position Blood Pressure Location Pulse Ox 99 99 Oxygen Delivery Method Nasal Cannula Nasal Cannula Oxygen Flow Rate (L/min) 2 3 01/28/24 01:10 01/28/24 04:37 01/28/24 04:39 Temperature 98.6 F 98.7 F Temperature Source Oral Oral Pulse Rate 71 72 Respiratory Rate 18 18 Respiratory Effort Normal Non-Labored Respiratory Depth Normal Respiratory Pattern Normal Blood Pressure 148/64 H 150/50 H Blood Pressure Mean 92 83 Blood Pressure Source Monitor Monitor Blood Pressure Position Semi-Fowlers Semi-Fowlers Blood Pressure Location Right Arm Left Arm Pulse Ox 97 99 Oxygen Delivery Method Nasal Cannula Nasal Cannula Nasal Cannula Oxygen Flow Rate (L/min) 3 3 3 01/28/24 07:23 01/28/24 07:23 01/28/24 09:31 Temperature 97.7 F L Temperature Source Oral Pulse Rate 78 68 Respiratory Rate 20 H 18 Respiratory Effort Respiratory Depth Respiratory Pattern Tachypnea Blood Pressure 150/59 H Blood Pressure Mean 89 Blood Pressure Source Monitor Blood Pressure Position Semi-Fowlers Blood Pressure Location Right Arm Pulse Ox 93 100 Oxygen Delivery Method Nasal Cannula Nasal Cannula Oxygen Flow Rate (L/min) 2 2 01/28/24 09:35 01/28/24 09:46 Temperature Temperature Source Pulse Rate 70 70 Respiratory Rate Respiratory Effort Normal Respiratory Depth Respiratory Pattern Blood Pressure Blood Pressure Mean Blood Pressure Source Blood Pressure Position Blood Pressure Location Pulse Ox Oxygen Delivery Method Nasal Cannula Oxygen Flow Rate (L/min) 2 Weight Weight: 238 lb 1.588 oz Body Mass Index (BMI) 43.5 Physical Exam Narrative Vitals?stable. Examination of the left knee shows prior midline incision well- healed. There is severe tenderness in medial and lateral joint line also along the patellofemoral joint. Mild effusion noticed. Significant edema through the leg up to the ankle noticed. There seems to be a sore over the posterior lateral aspect of the distal thigh with some erythema around it. Sister has noticed it, but is unsure if this was a insect bite. Active range of motion is possible from 10 to 30 degrees with severe pain at extremes. Examination of right lower extremity does not reveal any pain or difficulty with range of motion. Lab / Micro Data 01/28/24 05:50 01/28/24 05:50 Labs: Laboratory Results - last 24 hr 01/27/24 19:40: WBC 7.9, RBC 3.82 L, Hgb 10.7 L, Hct 33.3 L, MCV 87.2, MCH 28.0, MCHC 32.1, RDW Std Deviation 46.5 H, RDW Coeff of Sidra 14.7 H, Plt Count 156, MPV 10.7, Immature Gran % (Auto) 1.100 H, Neut % (Auto) 74.7 H, Lymph % (Auto) 16.2 L, [place] % (Auto) 7.2, Eos % (Auto) 0.5, Baso % (Auto) 0.3, Absolute Neuts (auto) 5.9, Absolute Lymphs (auto) 1.28, Nucleated RBC % 0, ESR 34 H, Sodium 134 L, Potassium 4.3, Chloride 102, Carbon Dioxide 30.0, Anion Gap 3 L, BUN 11, C reatinine 1.40 H, Estim Creat Clear Calc 46.06, Est GFR (MDRD) Af Amer 48 L, Est GFR (MDRD) Non-Af 40 L, BUN/Creatinine Ratio 7.9 L, Glucose 173 H, Calcium 8.6, C-React Prot Ext Range 66.70 H 01/28/24 01:05: Procalcitonin 0.12 H 01/28/24 01:15: POC Glucose 212 H 01/28/24 05:50: WBC 6.3, RBC 3.69 L, Hgb 10.4 L, Hct 32.6 L, MCV 88.3, MCH 28.2, MCHC 31.9 L, RDW Std Deviation 47.0 H, RDW Coeff of Sidra 14.6, Plt Count 148 L, MPV 10.9, Immature Gran % (Auto) 1.300 H, Neut % (Auto) 73.1 H, Lymph % (Auto) 16.9 L, [place] % (Auto) 7.9, Eos % (Auto) 0.5, Baso % (Auto) 0.3, Absolute Neuts (auto) 4.6, Absolute Lymphs (auto) 1.06, Nucleated RBC % 0, Sodium 133 L, Potassium 4.7, Chloride 101, Carbon Dioxide 28.0, Anion Gap 4 L, BUN 11, C reatinine 1.34 H, Estim Creat Clear Calc 47.12, Est GFR (MDRD) Af Amer 51 L, Est GFR (MDRD) Non-Af 42 L, BUN/Creatinine Ratio 8.2 L, Glucose 236 H, Calcium 8.4 L , Total Bilirubin 0.20, AST 15, ALT 14, Alkaline Phosphatase 218 H, Total Protein 6.2 L, Albumin 1.6 L, Globulin 4.6 H, Albumin/Globulin Ratio 0.3 L 01/28/24 06:03: POC Glucose 229 H Imaging Radiology Impression Knee X-Ray 01/27/24 19:27 IMPRESSION: Stable appearance to knee prosthesis.. No evidence for acute fracture or definitive evidence for acute osteomyelitis. MRI however would be helpful for more definitive evaluation if indicated Electronically Signed: Kirt Ruff MD at 20:10 EDT Reading Location ID and State: [facility] / [place] Tel , Service support , Venous Duplex 10/18/24 23:39 IMPRESSION: No sonographic evidence of deep venous thrombosis. Electronically Signed: Mt Ghosh MD at 0:21 EDT , Assessment & Plan Assessment/Plan (1) Status post total knee replacement, left: (2) Left knee pain: QUALIFIERS: Chronicity: acute Qualified Code(s): M25.562 - Pain in left knee PLAN: Plan I reviewed x-rays of the left knee done in the ER last night. There is no obvious evidence of loosening or osteolysis. Left total knee prosthesis appear stable. DVT venous duplex negative. I discussed my findings with the patient and also discussed with her sister on the phone. She appears to be 6 to 7 months status post left total knee replacement. She has had multiple episodes of pneumonia over the last few months. She has severe difficulty with weightbearing and pain with range of motion leading to a suspected left knee septic arthritis and an artificial joint. I recommend bedside knee aspiration to confirm or rule out knee sepsis. All risk benefits and alternatives were discussed. The risks include but are not limited to infection, hematoma, hemarthrosis, persistent pain, need for surgery, DVT, pulmonary embolism, persistent infection, vasovagal episode. Patient agrees and signed the consent for bedside aspiration. Discussed with patient and sister about the possibility of need for washout with poly exchange versus revision surgery depending on the aspirate results. Charges/Coding Visit Charges Inpatient E&M: 62721 Init Hosp L3
[2024-01-28] MEDS: Lidocaine 2% (20 ml mdv) 20 ML Vial INFILT (13:13)
[2024-01-28] MEDS: Menthol/Lanolin/Calamine/Znox 113 GM Tube 1 APPLIC TOPICAL ×2 (13:17→22:11)
--- NOTE | 2024-01-28 13:17 | PCM.OP.PRO ---
Procedure Report Date of Procedure: 01/28/24 Name of procedure: Bedside left knee joint aspiration CPT 32145 Indications: Patient has had left knee replacement 6 to 7 months ago with inability to weight-bear and intractable knee pain for last 3 to 4 weeks. ESR and CRP are elevated suggesting possibility of septic arthritis. All options treatment were discussed. Knee aspiration was recommended to rule out infection of the artificial joint. All risks and benefits were discussed. The risks include but are not limited to infection, hematoma, hemarthrosis, persistent pain, need for surgery, DVT, pulmonary embolism, persistent infection, vasovagal episode. Patient agrees and signed the consent for bedside aspiration. Procedure: Under all aseptic precautions, ChloraPrep was used to prep the skin all around the anterior and lateral aspect of the left knee. Drape was applied to isolate the anterolateral aspect of the knee. 5 cc of 1% lidocaine was injected through a 22-gauge needle over the anterolateral aspect superolateral to the patella under the skin to infiltrate for local anesthesia. Once adequate local anesthesia was achieved, an 18-gauge needle was inserted into the knee joint through the superolateral approach under the patella. 20 cc syringe was utilized to aspirate serosanguineous fluid from the knee joint. This was sent to the lab in a sterile fashion for Gram stain, culture, cell count, crystals, glucose and protein. Skin was cleaned with alcohol swab and Band-Aid was applied with some pressure over the aspiration site. Patient tolerated the procedure well. Procedures Musculoskeletal [id number]: 55333 Drain/inj joint/bursa w/o us
--- NOTE | 2024-01-28 13:23 | MDS.RN ---
Dr. Jackson in room and did tap left knee-approx 25-30 ml of bloody fluid-sent to lab and orders placed for fluid testing-pt tolerated well after numbed with Lidocaine
[2024-01-28 13:47] LABS: Hemoglobin A1c 8.1 % (3.8-5.6)
[2024-01-28 13:57] LABS: RBC /Synovial Fluid 0.263 10^6/uL (0)
[2024-01-28 13:58] LABS: Pathologist Comment May follow
--- NOTE | 2024-01-28 14:31 | CASEMGMT ---
PANDA CM in to discuss MAE form with patient. RN CM explained MAE form, patient voiced understanding. Pt signed form and filed in chart. Pt provided with a copy of signed MAE form. Patient had no further questions or concerns at this time.
--- NOTE | 2024-01-28 14:31 | CASEMGMT ---
PANDA CHACON into pt room, pt sitting up in chair in no distress. Pt states she lives in a single story home with her sister with 4 steps to enter with a rail. Pt reports typically she is I in ADLs and drives. Pt just started using a walker since her knee pain. Pt plans to return home. She denies need for SNF. Discussed that she ambulated 4 feet with therapy. She states she wants to try to return home. Pt states she would like C. She states she has had HHC in the past. [facility] and denies need for a list. PANDA CHACON will make referral on Tuesday if pt dc's over the weekend. If pt does not dc, will see how pt does with therapy Tuesday and Tuesday and follow up on dc plan. Pt thankful to PANDA CHACON.
--- NOTE | 2024-01-28 15:52 | PN_ITS ---
Subjective Subjective Patient seen and examined. She was admitted with a complaint of intractable left knee pain. She still complains of left knee pain. She denies any fever, chills, cough, chest pian, palpitations, dizziness, nausea, vomiting or any other system. Review of systems is otherwise negative. She has remained hemodynamically stable. Objective Data Objective Data Vital Signs: Vital Signs Temp Pulse Resp BP Pulse Ox O2 Del Method O2 Flow Rate 97.7 F L 70 18 150/59 H 100 Nasal Cannula 2 01/28/24 09:31 01/28/24 09:46 01/28/24 09:31 01/28/24 09:31 01/28/24 09:31 01/28/24 09:35 01/28/24 14:06 Oxygen Flow Rate (L/min) 2 Oxygen Delivery Method Nasal Cannula Weight: 238 lb 1.588 oz Body Mass Index (BMI) 43.5 Intake & Output: Intake and Output for Last 24 Hours 01/26/24 01/27/24 01/28/24 23:59 23:59 23:59 Intake Total 450 / 450 Balance 450 / 450 Lab / Micro Data 01/28/24 05:50 01/28/24 05:50 Labs: Laboratory Results - last 24 hr 01/27/24 19:40: WBC 7.9, RBC 3.82 L, Hgb 10.7 L, Hct 33.3 L, MCV 87.2, MCH 28.0, MCHC 32.1, RDW Std Deviation 46.5 H, RDW Coeff of Sidra 14.7 H, Plt Count 156, MPV 10.7, Immature Gran % (Auto) 1.100 H, Neut % (Auto) 74.7 H, Lymph % (Auto) 16.2 L, [place] % (Auto) 7.2, Eos % (Auto) 0.5, Baso % (Auto) 0.3, Absolute Neuts (auto) 5.9, Absolute Lymphs (auto) 1.28, Nucleated RBC % 0, ESR 34 H, Sodium 134 L, Potassium 4.3, Chloride 102, Carbon Dioxide 30.0, Anion Gap 3 L, BUN 11, C reatinine 1.40 H, Estim Creat Clear Calc 46.06, Est GFR (MDRD) Af Amer 48 L, Est GFR (MDRD) Non-Af 40 L, BUN/Creatinine Ratio 7.9 L, Glucose 173 H, Calcium 8.6, C-React Prot Ext Range 66.70 H 01/28/24 01:05: Procalcitonin 0.12 H 01/28/24 01:15: POC Glucose 212 H 01/28/24 05:50: WBC 6.3, RBC 3.69 L, Hgb 10.4 L, Hct 32.6 L, MCV 88.3, MCH 28.2, MCHC 31.9 L, RDW Std Deviation 47.0 H, RDW Coeff of Sidra 14.6, Plt Count 148 L, MPV 10.9, Immature Gran % (Auto) 1.300 H, Neut % (Auto) 73.1 H, Lymph % (Auto) 16.9 L, [place] % (Auto) 7.9, Eos % (Auto) 0.5, Baso % (Auto) 0.3, Absolute Neuts (auto) 4.6, Absolute Lymphs (auto) 1.06, Nucleated RBC % 0, Sodium 133 L, Potassium 4.7, Chloride 101, Carbon Dioxide 28.0, Anion Gap 4 L, BUN 11, C reatinine 1.34 H, Estim Creat Clear Calc 47.12, Est GFR (MDRD) Af Amer 51 L, Est GFR (MDRD) Non-Af 42 L, BUN/Creatinine Ratio 8.2 L, Glucose 236 H, Hemoglobin A1c 8.1 H, Calcium 8.4 L, Total Bilirubin 0.20, AST 15, ALT 14, Alkaline Phosphatase 218 H, Total Protein 6.2 L, Albumin 1.6 L, Globulin 4.6 H, A lbumin/Globulin Ratio 0.3 L 01/28/24 06:03: POC Glucose 229 H 01/28/24 13:10: Fluid Source Cancelled, Fluid Color Cancelled, Fluid Appearance Cancelled, Fluid WBC Cancelled, Fluid RBC Cancelled, Fluid Tot Cell Count Cancelled, Fld Polynuclear WBCs # Cancelled, Fld Polynuclear WBCs % Cancelled, Fluid Mononuclear WBCs Cancelled, Fld Mononuclear WBCs % Cancelled, Fluid Neutrophils Cancelled, Fluid Lymphocytes Cancelled, Fluid Monocytes Cancelled, Fluid Plasma Cells Cancelled, Fluid Macrophages Cancelled, Fld Mesothelial Cells Cancelled, Fluid Other Cells Cancelled, Fl Pathologist Comment Cancelled, Fluid Glucose Cancelled, Fluid Total Protein Cancelled, Fluid Comment 2 Cancelled, S ynovial WBC 51.5600 H, Synovial RBC 0.263 H, Synovial Tot Cell Ct 56.8160 H, Synov Polynuclear WBCs 53.350, Synov Mononuclear WBCs 3.440, Synovial Polynuclear % 94.0, Synovial Mononuclear % 6.0 Micro: Microbiology 01/28/24 13:10 Fluid - Synovial (joint) Gram Stain - Final Radiography Diagnostic Testing: Radiology Impression Knee X-Ray 01/27/24 19:27 IMPRESSION: Stable appearance to knee prosthesis.. No evidence for acute fracture or definitive evidence for acute osteomyelitis. MRI however would be helpful for more definitive evaluation if indicated Electronically Signed: Kirt Ruff MD at 20:10 EDT , Venous Duplex 01/27/24 23:39 IMPRESSION: No sonographic evidence of deep venous thrombosis. Electronically Signed: Mt Ghosh MD at 0:21 EDT , Physical Exam Const alert, oriented x3 and no apparent distress Constitutional Narrative: obese HEENT normocephalic and moist oral mucous membranes Eyes PERRL and EOMs intact bilaterally Neck no lymphadenopathy and supple Lymph Lymphatic: no lymphadenopathy noted Resp normal respiratory effort, normal air movement and clear to auscultation bilaterally Cardio regular rate, regular rhythm, S1 normal heart sound and S2 normal heart sound GI normal to inspection, nondistended, normoactive bowel sounds, soft to palpation and non-tender Extremity normal capillary refill and no clubbing, cyanosis or edema Extremity Narrative: left knee mildly warm and has erythematous areas with erythematous bumps just above the right knee, very tender to touch, no fluctuance. Able to flex and extend knee. Skin Skin Narrative: as under extremity Neuro CN's II-XII intact bilaterally and no focal motor deficits Motor Exam: general weakness Psych thought process normal and cooperative Appearance: appropriate Assessment & Plan Assessment/Plan (1) Left knee pain: QUALIFIERS: Chronicity: acute Qualified Code(s): M25.562 - Pain in left knee PLAN: Plan #Intractable left knee pain * Concerning for septic arthritis. She had a total knee replacement done in August of this year at [facility]. She does have some erythematous bumpy lesions just above the left knee on the lateral side. She has had no fever or chills. ESR and CRP are elevated and procalcitonin is 0.12. * Orthopedic surgery consulted due to concern for septic arthritis. * She had bedside left knee aspiration done today with serosanguineous fluid aspirated and sent to the lab. * Will defer to orthopedic surgery about initiating antibiotics. * PT OT on board. Fall precaution. P.o. Tylenol, p.o. oxycodone and IV morphine as needed for pain * synovial fluid analysis shows elevated synovial fluid wbc of 51.5, total wbc of 56.8160 awith 94% polymorphonuclear cells- discussed with Dr Jackson; will get blood cultures and start IV vancomycin and cefepime empirically for septic arthritis. ID consulted. Further management as per Orthopedic surgery #Chronic hypoxic respiratory failure due to COPD * Currently on 5 L of oxygen. Breathing treatments bronchodilators. * Titrate oxygen to maintain saturation above 90%. #Type 2 diabetes mellitus with neuropathy: On Lantus 40 units bid. Insulin/scale. Accu-Cheks ACHS. On gabapentin. A1C is 8.1 #Hypertension: on metoprolol. IV hydralazine prn #Chronic thrombocytopenia:platelets are 148 today. Will monitor #CKD stage III: Cr at baseline. Will monitor. #Anxiety depression: On citalopram and trazodone nightly. #Hypothyroidism: Synthroid #Super morbid obesity: BMI is 43.5. Complicates acute care, expected recovery and prognosis. DVT prophylaxis: Lovenox Charges/Coding Visit Charges Inpatient E&M: 80740 Subs Hosp L3
[2024-01-28 16:07] LABS: AUTO B FLUID DILUENT BKGD CT WBC <0.1 RBC <0.01 (W<.1,R<.01)
[2024-01-28 16:08] LABS: Appearance /Synovial Fluid Cloudy (CLEAR); CRYSTALS, BODY FLUID See PATH REV; Color / Synovial Fluid Yellow (Pale Yellow); Monocyte /Synovial Fluid 6 %; Neutrophil 94 % (0-25); Source / Synovial Fluid L KNEE ASP.; Source- Body Fluid SYNOVIAL
[2024-01-28 17:12] LABS: Bedside Glucose 178 mg/dL (74-106)
[2024-01-28] MEDS: Cefepime HCl 1 GM in 0.9% Normal Saline (50mL MB+) 50 ML IV (17:48)
[2024-01-28] MEDS: Vancomycin HCl 2,000 MG in 0.9% Normal Saline (500mL Bag) 500 ML 250 MG IV (17:52)
--- NOTE | 2024-01-28 17:56 | NURSING ---
CEFIME AND VANC STARTED AFTER BLOOD CULTURE OBTAINED
--- NOTE | 2024-01-28 18:02 | PHA.PHARE_ITS ---
Consult Antibiotic Management Pharmacy has been consulted to manage selected antibiotic: Vancomycin Type of Intervention Type of Consult: New start Suspected Infection Suspected Infection: Other (SEPTIC ARTHRITIS (KNEE)) Labs Labs: Sodium 133 mmol/L (136-145) L 01/28/24 05:50 Potassium 4.7 mmol/L (3.5-5.1) 01/28/24 05:50 Chloride 101 mmol/L (98-107) 01/28/24 05:50 Carbon Dioxide 28.0 mmol/L (21.0-32.0) 01/28/24 05:50 Anion Gap 4 (5-15) L 01/28/24 05:50 BUN 11 mg/dL (7-18) 01/28/24 05:50 Creatinine 1.34 mg/dL (0.55-1.02) H 01/28/24 05:50 Est GFR (MDRD) Af Amer 51 mL/min (>60) L 01/28/24 05:50 Est GFR (MDRD) Non-Af 42 mL/min (>60) L 01/28/24 05:50 BUN/Creatinine Ratio 8.2 RATIO (10-20) L 01/28/24 05:50 Glucose 236 mg/dL (74-106) H 01/28/24 05:50 Microbiology Microbiology: Microbiology 01/28/24 13:10 Fluid - Synovial (joint) Gram Stain - Final Dosing Weight Weight used for dosin kg Estimated Creatinine Clearance Estimated Creatinine Clearance: 47 ML/MIN Goal Trough Goal Trough: 15-20 mcg/mL Pharmacy Plan for Drug Dosing Pharmacy Plan for Drug Dosing: Give vanc 2000mg IV x1, then 750mg q12h per [facility] dosing protocol. Will order a trough before the 4th overall dose. Pharmacy Service will continue to monitor and adjust dosing as required. Follow-Up Labs Follow-Up Labs: Trough: Vancomycin Date/Time Labs Ordered Labs to be done on [date and time ordered]: 01/29 05:30
[2024-01-28] MEDS: Atorvastatin Calcium 20 MG Tablet PO (22:13)
[2024-01-28] MEDS: traZODone 100 MG Tablet PO (22:13)
[2024-01-28] MEDS: guaiFENesin/D-Methorphan TAB.SR.12H 2 TABLET PO (22:21)
[2024-01-28] MEDS: Nystatin Powder 15gm Bottle 1 APPLIC TOPICAL (22:21)
[2024-01-28] MEDS: Montelukast 10 MG Tablet PO (22:22)
[2024-01-29] VITALS (16 sets, daily range): BP systolic 110–154; BP diastolic 46–86; PULSE 51–68; RESP 14–20; TEMP 35.6–37; O2SAT 92–100; BMI 43.5
[2024-01-29 00:45] LABS: Bedside Glucose 174 mg/dL (74-106)
[2024-01-29] MEDS: Menthol/Lanolin/Calamine/Znox 113 GM Tube 1 APPLIC TOPICAL ×3 (05:21→20:09)
[2024-01-29] MEDS: Gabapentin 800 MG Tablet PO ×3 (05:22→20:09)
[2024-01-29] MEDS: oxyCODONE 5 MG Tablet PO ×3 (05:22→20:09)
[2024-01-29] MEDS: Nystatin Powder 15gm Bottle 1 APPLIC TOPICAL ×3 (05:22→20:10)
[2024-01-29] MEDS: Levothyroxine 75 MCG Tablet PO (05:23)
[2024-01-29] MEDS: Vancomycin HCl 750 MG in 0.9% Normal Saline (250mL Bag) 250 ML 250 MG IV ×2 (06:04→18:25)
[2024-01-29 06:33] LABS: Absolute Neutrophil Count 5.7 X10^3/uL (2.0-7.7); Basophil# 0.04 X10^3/uL; Basophil% 0.5 % (0-1); Eosinophil# 0.04 X10^3/uL; Eosinophils% 0.5 % (0-5); Hemoglobin 10.3 g/dL (12.0-15.0); Lymphocyte % 22.4 % (19-41); Mean Corp Hgb Conc 32.2 g/dL (32-36); Mean Corpuscular Hgb 28.2 pg (27.0-32.0); Mean Corpuscular Volume 87.7 fL (81-99); Mean Platelet Vol. 11.1 fl (6.2-12.0); Monocyte# 0.72 X10^3/uL; Monocyte% 8.5 % (0-10); NRBC Flagged by Analyzer 0 % (0-5); Neutrophil # 5.69 X10^3/uL (2.7-7.7); Neutrophil % 66.9 % (47-70); Platelet Count 178 K/mm3 (150-450); RBC Distribution Width CV 14.8 % (11.6-14.6); RBC Distribution Width SD 47.3 fl (35.1-43.9); Red Blood Count 3.65 M/mm3 (4.2-5.4); White Blood Count 8.5 K/mm3 (4.4-11.0)
[2024-01-29 06:44] LABS: International Normalized Ratio 1.1
[2024-01-29 07:04] LABS: Anion Gap 5 (5-15); BUN 14 mg/dL (7-18); BUN/Creat Ratio 10.1 RATIO (10-20); Calcium,Total 8.6 mg/dL (8.5-10.1); Chloride 101 mmol/L (98-107); Creatinine, Serum 1.39 mg/dL (0.55-1.02); EST Glomerular Filtration Rate 40 mL/min (>60); Est Glom Filt Rate - Afr Amer 49 mL/min (>60); Estimated Creatinine Clearance 45.42 ml/min; Glucose 104 mg/dL (74-106); Potassium 4.7 mmol/L (3.5-5.1); Sodium Level 133 mmol/L (136-145)
[2024-01-29 07:40] LABS: Hemoglobin A1c 8.1 % (3.8-5.6)
[2024-01-29] MEDS: amLODIPine 5 MG Tablet PO (08:00)
[2024-01-29] MEDS: guaiFENesin/D-Methorphan TAB.SR.12H 2 TABLET PO ×2 (08:00→20:09)
[2024-01-29] MEDS: Furosemide 40 MG Tablet PO (08:00)
[2024-01-29] MEDS: DULoxetine Hcl 20 MG Capsule PO ×2 (08:00→20:09)
[2024-01-29] MEDS: Aspirin E.C. 81 MG Tablet PO (08:00)
[2024-01-29] MEDS: Metoprolol(XL)Succ 100 MG Tablet PO (08:01)
[2024-01-29] MEDS: Pantoprazole Sodium 40 MG Tablet PO (08:01)
[2024-01-29] MEDS: Cyanocobalamin 500 MCG Tablet 1000 MCG PO (08:01)
--- NOTE | 2024-01-29 09:05 | PCM.PN.ORT ---
Subjective Subjective Saw patient in 325 this morning. No change in pain and difficulty weightbearing since yesterday. Feels that she felt feverish last night but no reported high temps. Objective Data Objective Data Vital Signs: Vital Signs Temp Pulse Resp BP Pulse Ox O2 Del Method O2 Flow Rate 97.3 F L 65 18 132/86 H 94 Nasal Cannula 2 01/29/24 07:43 01/29/24 08:01 01/29/24 07:43 01/29/24 07:43 01/29/24 08:13 01/29/24 08:13 01/29/24 08:13 Oxygen Flow Rate (L/min) 2 Oxygen Delivery Method Nasal Cannula Weight: 238 lb 1.588 oz Body Mass Index (BMI) 43.5 Intake & Output: Intake and Output for Last 24 Hours 01/27/24 01/28/24 01/29/24 23:59 23:59 23:59 Intake Total 1040 / 1040 Output Total 300 / 300 Balance 1040 / 1040 -300 / -300 Lab / Micro Data 01/29/24 05:10 01/29/24 05:10 Labs: Laboratory Results - last 24 hr 01/28/24 05:50: Hemoglobin A1c 8.1 H 01/28/24 13:10: Fluid Source Cancelled, Fluid Color Cancelled, Fluid Appearance Cancelled, Fluid WBC Cancelled, Fluid RBC Cancelled, Fluid Tot Cell Count Cancelled, Fld Polynuclear WBCs # Cancelled, Fld Polynuclear WBCs % Cancelled, Fluid Mononuclear WBCs Cancelled, Fld Mononuclear WBCs % Cancelled, Fluid Neutrophils Cancelled, Fluid Lymphocytes Cancelled, Fluid Monocytes Cancelled, Fluid Plasma Cells Cancelled, Fluid Macrophages Cancelled, Fld Mesothelial Cells Cancelled, Fluid Other Cells Cancelled, Fluid Crystals See PATH REV, Fluid Crystal Source SYNOVIAL, Fl Crystal Path Review Will follow, Fl Pathologist Comment Cancelled, Fluid Glucose Cancelled, Fluid Total Protein Cancelled, Fluid Comment 2 Cancelled, Synovial Source L KNEE ASP., Synovial Color Yellow, Synovial Appearance Cloudy, Synovial WBC 51.5600 H, Synovial RBC 0.263 H, Synovial Tot Cell Ct 56.8160 H, Synov Polynuclear WBCs 53.350, Synov Mononuclear WBCs 3.440, Synovial Neutrophils 94 H, Synovial Monocytes 6, Synovial Polynuclear % 94.0, Synovial Mononuclear % 6.0, Synovial Path Comment May follow 10/19/24 16:45: POC Glucose 178 H 01/28/24 22:40: POC Glucose 174 H 01/29/24 05:10: WBC 8.5, RBC 3.65 L, Hgb 10.3 L, Hct 32.0 L, MCV 87.7, MCH 28.2, MCHC 32.2, RDW Std Deviation 47.3 H, RDW Coeff of Sidra 14.8 H, Plt Count 178, MPV 11.1, Immature Gran % (Auto) 1.200 H, Neut % (Auto) 66.9, Lymph % (Auto) 22.4, [place] % (Auto) 8.5, Eos % (Auto) 0.5, Baso % (Auto) 0.5, Absolute Neuts (auto) 5.7, Absolute Lymphs (auto) 1.90, Nucleated RBC % 0, PT 14.0, INR 1.1, APTT 34.0, Sodium 133 L, Potassium 4.7, Chloride 101, Carbon Dioxide 27.0, Anion Gap 5, BUN 14, Creatinine 1.39 H, Estim Creat Clear Calc 45.42, Est GFR (MDRD) Af Amer 49 L, Est GFR (MDRD) Non-Af 40 L, BUN/Creatinine Ratio 10.1, Glucose 104, Hemoglobin A1c 8.1 H, Calcium 8.6, TSH 5.930 H Micro: Microbiology 01/28/24 13:10 Fluid - Synovial (joint) Gram Stain - Final Physical Exam Narrative Vital stable. Examination of the knee continues to show painful range of motion from 10 to 30 degrees. Aspiration site Band-Aid present. No obvious hematoma or hemarthrosis. Distal neurovascular exam is intact. Assessment & Plan Assessment/Plan (1) Infection of total knee replacement: QUALIFIERS: Encounter type: initial encounter Qualified Code(s): T84.59XA - Infection and inflammatory reaction due to other internal joint prosthesis, initial encounter; Z96.659 - Presence of unspecified artificial knee joint PLAN: Plan Reviewed yesterday's knee aspirate lab results. Cell count 51,000 with 94% neutrophils suggestive of infection. Discussed the findings with the patient as well as spoke to patient's Sister Randi on the phone. Discussed treatment options. 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 Treatment options include surgical I&D with poly exchange. Possibility of needing a 1 stage or two-stage revision in the future if persistent infection is present. Patient's surgeon in [place] is no longer in practice at that location. I was able to access operative note with difficulty. I recommend I&D with poly exchange. All risk benefits and alternatives were discussed in detail. The risks include but are not limited to persistent infection, bacteremia, septicemia, bleeding, hematoma formation, need for blood transfusion, tourniquet pain, need for further surgery, osteomyelitis, possibility of amputation in future, DVT, pulmonary embolism, cardiopulmonary event, . Patient understands and agrees to proceed with surgery. All questions answered. Discussed with patient's Sister Randi as well on the phone. Charges/Coding Visit Charges Inpatient E&M: 95507 Subs Hosp L3
--- NOTE | 2024-01-29 09:06 | PRE.ANES_ITS ---
ASA Classification* ASA Classification ASA Classification: 3 (see written pre anesthesia record for full assessment) and E Assessment & Plan Anesthesia* Anesthesia Assessment Anesthesia Assessment: Discussed sedation and/or anesthesia options, risks, benefits, and alternatives with patient/parents/legal guardian/POA. Questions invited. The patient/parents/legal guardian/POA seems to understand and agrees to proceed with anesthesia plan. Reviewed the physical assessment, medical history, allergy history and patient home medications list prior to surgery/procedure/anesthetic and documented any changes. Performed airway and anesthesia risk assessments. Anesthesia Type Anesthesia Type: General (see written pre anesthesia record for full assessment) and Block (see written pre anesthesia record for full assessment) Anesthesia Focused Assessment* Temperature: 97.3 F Pulse Rate: 65 Blood Pressure: 132/86 Respiratory Rate: 18 Pulse Ox: 94 Airway Assessment Mouth opens: >3 cm (see written pre anesthesia record for full assessment) Mallampati Score: III (see written pre anesthesia record for full assessment) Focused Labs Anesthesia Preop lab: CBC WBC 8.5 K/mm3 (4.4-11.0) 01/29/24 05:10 RBC 3.65 M/mm3 (4.2-5.4) L 01/29/24 05:10 Hgb 10.3 g/dL (12.0-15.0) L 01/29/24 05:10 Hct 32.0 % (37-47) L 01/29/24 05:10 Plt Count 178 K/mm3 (150-450) 01/29/24 05:10 CHEMISTRY Potassium 4.7 mmol/L (3.5-5.1) 01/29/24 05:10 Sodium 133 mmol/L (136-145) L 01/29/24 05:10 Magnesium 1.6 mg/dL (1.6-2.6) 01/12/24 20:00 BUN 14 mg/dL (7-18) 01/29/24 05:10 Creatinine 1.39 mg/dL (0.55-1.02) H 01/29/24 05:10 Glucose 104 mg/dL (74-106) 01/29/24 05:10 POC Glucose 174 mg/dL (74-106) H 01/28/24 22:40 TSH 5.930 uIU/mL (0.358-3.740) H 01/29/24 05:10 COAG PT 14.0 SECONDS (11.7-14.9) 01/29/24 05:10 Pre-Assessment Diagnosis/Proposed Procedure Planned Operative Procedure(s): InD knee with poly exchx Anesthesia History Anesthesia History - surveillance monitor: Anesthesia History - surveillance monitor Hx Hospitalization Any Problems With Anesthesia No 01/29/24 04:00 Cholinesterase deficiency No 01/29/24 04:00 You/Your Family Experience No 01/29/24 04:00 fever (hyperthermia) with Relationship Recent Exposure to Contagious No 01/29/24 04:00 Disease Does patient have nerve No 01/29/24 04:00 stimulator Patient instructed to have No 01/29/24 04:00 device shut off --Does patient have Pacemaker or ICD? When Was Last Pacemaker Check QUESTION #4 FULL TEXT: You/Your Family Experience fever (hyperthermia) with Anesthesia Last Oral Intake Last Oral intake: Last Oral Intake NPO since Meds taken in AM with sips of water? Meds patient instructed to take am of surgery PONV PONV - surveillance monitor: PONV - surveillance monitor Female HX of Motion Sickness HX of N/V After Surgery Non-Smoker Duration of Surgery greater than 60 minutes Number of Risk Factors PONV Score Height & Weight Height & Weight: Anesthesia: Height & Weight Height 5 ft 2 in 01/28/24 00:59 Weight: 108 kg 01/29/24 04:09 Body Mass Index (BMI) 43.5 01/29/24 04:09 Respiratory Assessment Respiratory Assessment - surveillance monitor: Respiratory Tract Infection Hx - surveillance monitor Hx Respiratory Tract Infection No 01/29/24 04:00 STOP Sleep Apnea STOP Sleep Apnea - surveillance monitor: STOP Sleep Apnea - surveillance monitor Hx Hypertension Yes 01/28/24 14:06 Hx Sleep Apnea No 01/28/24 00:59 CPAP BIPAP Do you snore loudly (louder No 01/28/24 00:59 than talking or can be heard Do you often feel tired/ No 01/28/24 00:59 fatigued/ sleepy during daytime? Has anyone observed you stop No 01/28/24 00:59 breathing during sleep? STOP Results Negative 01/28/24 00:59 QUESTION #5 FULL TEXT : Do you snore loudly (louder than talking or can be heard through closed doors)? Tobacco Use History Tobacco Use History - surveillance monitor: Tobacco Use History - surveillance monitor Tobacco Use Smoking Status Current every day smoker 01/28/24 00:59 Hx Tobacco Use No 01/28/24 00:59 Years Smoking 30 01/28/24 00:59 Packs Smoked per Day Smoking Cessation Date was within the last 15 years Hx Smoking Cessation Date Hx Smoking Cessation Counseling Hematologic Medial History Hematologic Hx - surveillance monitor: Hematologic Medical Hx - pool cleaner Hx of Blood Transfusion No 01/28/24 00:59 Hx of Transfusion in last 3 No 01/28/24 00:59 Months Date of Last Transfusion (if within last 3 months) Ever experience any problems No 01/28/24 00:59 with transfusion(s)? Specify any problems Hx of Preganancy in last 3 No 01/28/24 00:59 Months Nurse Filling Out Transfusion [email or web address] 01/28/24 00:59 & Questions: Date: 01/28/24 01/28/24 00:59 Time: 01:08 01/28/24 00:59 Patient unable to answer at this time (ie. confused, unrespo /Reproduction History /Reproductive History - surveillance monitor: /Reproductive Hx- surveillance monitor Hx Now No 01/29/24 04:00 Gestational Age (in weeks): EDC: Hx Hx Para Hx Section SAB No 01/29/24 04:00 Active Medications Active Medications: Current Medications Generic Name Dose Route Start Last Admin Trade Name Freq PRN Reason Stop Dose Admin Acetaminophen 650 mg 01/28/24 01:02 Acetaminophen 325 Mg Tablet PO Q4H PRN PRN Fever, pain 1-1010 Al Hydroxide/Mg Hydroxide 30 ml 01/28/24 01:02 Mag Hydrox/Al Hydrox/Simeth 30 Ml Udc PO Q6H PRN PRN Gastric Burning Albuterol Sulfate 2.5 mg 01/28/24 01:02 Albuterol 2.5 Mg/3 Ml Vial.Neb. INHALATION Q2H PRN PRN Dyspnea, wheezing Amlodipine Besylate 5 mg 01/28/24 10:00 01/29/24 08:00 Amlodipine 5 Mg Tablet PO 5 mg DAILY ROGER Administration Protocol Aspirin 81 mg 01/28/24 10:00 01/29/24 08:00 Aspirin E.C. 81 Mg Tablet PO 81 mg DAILY ROGER Administration Atorvastatin Calcium 20 mg 01/28/24 22:00 01/28/24 22:13 Atorvastatin Calcium 20 Mg Tablet PO 20 mg QHS ROGER Administration Budesonide 0.5 mg 01/28/24 01:02 01/28/24 19:45 Budesonide Respules 0.5 Mg/2 Ml Ampul.Neb. INHALATION 0.5 mg BID.RT ROGER Administration Calamine/Phenol 1 applic 01/28/24 06:00 01/29/24 05:21 Menthol/Lanolin/Calamine/Znox 113 Gm Tube TOPICAL 1 applic TID ROGER Administration Protocol Compound Med 3 click 01/28/24 10:00 01/29/24 08:02 Arthritis Pain Compound 60 Click Tube TOPICAL Not Given BID ROGER Protocol Cyanocobalamin 1,000 mcg 01/29/24 10:00 01/29/24 08:01 Cyanocobalamin 500 Mcg Tablet PO 1,000 mcg QODAY ROGER Administration Duloxetine HCl 20 mg 01/28/24 10:00 01/29/24 08:00 Duloxetine Hcl 20 Mg Capsule PO 20 mg BID ROGER Administration Furosemide 40 mg 01/28/24 10:00 01/29/24 08:00 Furosemide 40 Mg Tablet PO 40 mg DAILY ROGER Administration Protocol Gabapentin 800 mg 01/28/24 06:00 01/29/24 05:22 Gabapentin 800 Mg Tablet PO 800 mg TID ROGER Administration Glucagon 1 mg 01/28/24 01:02 Glucagon 1 Mg/Ml Syringe IM X1 PRN HYPOGLYCEMIA Protocol Guaifenesin 20 ml 01/28/24 01:02 Guaifenesin 10 Ml Udc (200mg/10ml) PO Q4H PRN PRN COUGH Guaifenesin 2 tablet 01/28/24 22:00 01/29/24 08:00 Guaifenesin/D-Methorphan Tab.Sr.12h PO 2 tablet Q12H ROGER Administration Hydralazine HCl 10 mg 01/28/24 01:02 Hydralazine 20 Mg/Ml Vial IV Q4H PRN PRN SBP > 160 Protocol Dextrose 250 mls @ 0 mls/hr 01/28/24 01:02 Dextrose 10%-Water IV .Q0M PRN HYPOGLYCEMIA Protocol As Directed Vancomycin IV-PHARMACY TO DOSE 500 mls @ 250 mls/hr 01/28/24 16:42 1 each/ Sodium Chloride IV X1 PRN Rx to Dose Protocol Cefepime HCl 1 gm/ Sodium 50 mls @ 100 mls/hr 01/28/24 17:30 01/28/24 20:33 Chloride IV Infused Q12 [facility] Infusion Vancomycin HCl 750 mg/ Sodium 265 mls @ 250 mls/hr 01/29/24 06:00 01/29/24 06:04 Chloride IV 250 mls/hr Q12H [facility] Administration Insulin Glargine 40 unit 01/28/24 10:00 01/29/24 08:02 Insulin Glargine-Yfgn 100 Unit/Ml Pen SC Not Given BID ROGER Insulin Human Lispro 0 unit 01/28/24 07:00 01/29/24 05:37 Insulin Lispro 100 Unit/Ml Insuln.Pen SC Not Given ACHS [facility] Protocol Levothyroxine Sodium 75 mcg 01/28/24 06:00 01/29/24 05:23 Levothyroxine 75 Mcg Tablet PO 75 mcg DAILY@0600 [facility] Administration Metoprolol Succinate 100 mg 01/28/24 10:00 01/29/24 08:01 Metoprolol(Xl)Succ 100 Mg Tablet PO 100 mg DAILY [facility] Administration Protocol Montelukast Sodium 10 mg 01/28/24 22:00 01/28/24 22:22 Montelukast 10 Mg Tablet PO 10 mg QHS [facility] Administration Morphine Sulfate 2 mg 01/28/24 01:02 Morphine 2 Mg/Ml Syringe IV Q3H PRN PRN Pain Score 6-10 Nicotine 7 mg 01/28/24 01:02 Nicotine 7 Mg Patch TD DAILY PRN PRN nicotine craving Nystatin 1 applic 01/28/24 06:00 01/29/24 05:22 Nystatin Powder 15gm Bottle TOPICAL 1 applic TID [facility] Administration Protocol Ondansetron HCl 4 mg 01/28/24 01:02 Ondansetron 4 Mg/2 Ml Vial IV Q8H PRN PRN NAUSEA/VOMITING Oxycodone HCl 5 mg 01/28/24 01:02 01/29/24 05:22 Oxycodone 5 Mg Tablet PO 5 mg Q4H PRN PRN Administration Pain Score 4-10 Pantoprazole Sodium 40 mg 01/28/24 10:00 01/29/24 08:01 Pantoprazole Sodium 40 Mg Tablet PO 40 mg DAILY ROGER Administration Prochlorperazine Edisylate 5 mg 01/28/24 01:02 Prochlorperazine 10 Mg/2 Ml Vial IV Q4H PRN PRN Breakthrough nausea/vomiting Senna/Docusate Sodium 2 tablet 01/28/24 01:02 Senna/Docusate Sodium 1 Tablet PO BID PRN PRN Constipation Trazodone HCl 100 mg 01/28/24 22:00 01/28/24 22:13 Trazodone 100 Mg Tablet PO 100 mg QHS ROGER Administration Vancomycin Protocol 1 lab 01/30/24 03:30 Vancomycin Trough/Random Due MC 01/30/24 07:30 DAILY ROGER PFSH Medical History (HFpEF) heart failure with preserved ejection fraction Chronic hypoxic respiratory failure, on home oxygen therapy COPD (chronic obstructive pulmonary disease) Diabetes mellitus, type 2 Thrombocytopenia Allergic rhinitis Hypothyroidism Anxiety and depression Morbid obesity CKD (chronic kidney disease), stage III Hyperlipidemia Hypertension Home Medications ?Medication ?Instructions ?Recorded ?Last Taken ?Type ondansetron 4 mg disintegrating 8 mg (2 x 4 mg) PO Q8H PRN PRN 06/20/22 01/27/24 Rx tablet Nausea #20 tabs aspirin 81 mg tablet,delayed 81 mg PO DAILY heart 01/12/24 01/27/24 History release atorvastatin 20 mg tablet 20 mg PO DAILY cholesterol 01/12/24 01/27/24 History citalopram 40 mg tablet 40 mg PO DAILY depression 01/12/24 01/27/24 History gabapentin 800 mg tablet 800 mg PO TID nerve pain 01/12/24 01/27/24 History insulin glargine 100 unit/mL (3 40 unit subcut BID 01/12/24 01/27/24 History mL) subcutaneous pen (Lantus Solostar U-100 Insulin) levothyroxine 75 mcg tablet 75 mcg PO DAILY thyroid 01/12/24 01/27/24 History montelukast 10 mg tablet 10 mg PO QHS allergies 01/12/24 01/27/24 History trazodone 100 mg tablet 100 mg PO QHS sleep 01/12/24 01/27/24 History dextromethorphan-guaifenesin ER 60 1 tab PO Q12H 7 days #14 tabs 01/14/24 01/27/24 Rx mg-1,200 mg tab,extend release,12hr (Mucinex DM) furosemide 40 mg tablet 40 mg PO DAILY 1 month #30 tabs 01/14/24 01/27/24 Rx metoprolol succinate 100 mg 100 mg PO DAILY 1 month #30 tabs 01/14/24 01/27/24 Rx tablet,extended release 24 hr prednisone 20 mg tablet 40 mg (2 x 20 mg) PO DAILY 5 days 01/14/24 01/27/24 Rx #10 tabs sennosides 8.6 mg-docusate sodium 2 tab PO BID PRN PRN Constipation 01/14/24 01/27/24 Rx 50 mg tablet (Stimulant Laxative #0 tabs Plus) amlodipine 5 mg tablet 5 mg PO DAILY 01/27/24 01/27/24 History cyanocobalamin (vitamin B-12) 1,000 mcg PO QODAY 01/27/24 01/27/24 History 1,000 mcg tablet duloxetine 20 mg capsule,delayed 20 mg PO BID 01/27/24 01/27/24 History release omeprazole 40 mg capsule,delayed 40 mg PO 01/27/24 01/26/24 History release Allergy/AdvReac Type Severity Reaction Status Date / Time No Known Allergies Allergy Verified 01/27/24 18:50 Family History Mother Brain aneurysm Father Hypertension Heart disease Heart failure Surgical History History of total left knee replacement Hx of oophorectomy Social History household members: family Smoking Status: Current every day smoker tobacco type: cigarettes Smoking packs per day: 0.25 Smoking cigarettes per day: 5.0 and e-cigarettes alcohol intake: never substance use type: does not use Review of Systems (Anesthesia) ROS Narrative System reviewed and no additional complaints, except as documented.
--- NOTE | 2024-01-29 09:38 | NURSING ---
Pt taken off floor for surgery.
[2024-01-29] MEDS: Cefepime HCl 1 GM in 0.9% Normal Saline (50mL MB+) 50 ML IV ×2 (10:00→20:43)
[2024-01-29 11:33] LABS: Bedside Glucose 107 mg/dL (74-106)
[2024-01-29] MEDS: TRANEXAMIC ACID 1,000 MG in 0.9% Normal Saline (100mL Bag) 100 ML 660 MG IV (11:59)
--- NOTE | 2024-01-29 12:21 | PCM.POST.ANE ---
Anesthesia: Postop Eval I Current Vital Signs Temperature: 98 F Pulse Rate: 52 Blood Pressure: 117/60 Respiratory Rate: 14 Pulse Ox: 100 Assessment Airway patent: Yes Spontaneous unlabored respirations: Yes nausea: No Vomiting: No Anesthesia Complication: No Fluid Hydration Crystalloid volume administer (ml): 1,300 Total IV fluid infused: 1,300 Progress Note Anesthesia document: Postop Eval 1 completed: Yes
--- NOTE | 2024-01-29 12:22 | PCM.POSTANE2 ---
Anesthesia Postop Eval I Sum Postop Eval Completion status Anesthesia document: Postop Eval 1 completed: Yes Anesthesia Postop Eval I Summary Anesthesia Postop Eval I Summary: Anesthesia Postop Eval I: Assessment Summary Airway patent Yes 01/29/24 12:21 Spontaneous unlabored Yes 01/29/24 12:21 respirations Mental status nausea No 01/29/24 12:21 Vomiting No 01/29/24 12:21 Anesthesia Postop Eval I: Fluid Summary Crystalloid volume administer 1,300 01/29/24 12:21 (ml) Colloids volume administered ( ml) Blood Product volume administered (ml) Total IV fluid infused 1,300 01/29/24 12:21 Anesthesia Postop Eval I: Summary Notes Anesthesia Complication No 01/29/24 12:21 Anesthesia Complication Comment: Post-operative progress note Anesthesia: Postop Eval II Evaluation Mental status: Awake Pain Level: 0 nausea: No Vomiting: No
--- NOTE | 2024-01-29 12:25 | OP.PCM_ITS ---
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 Procedure: Left Knee irrigation and debridement, removal and reinsertion of polyethylene insert Left total knee replacement revision of 1 component: CPT 07622 ? Surgeon: Dr. Jaciel Jackson Estimated Blood Loss: 30ml Anesthesia: Spinal anesthesia plus sedation Drains: Hemovac x1 Specimens: 2 - Synovial fluid, Synovium, infected granulation tissue Implants: Lalo triathlon system, #10 size polyethylene insert on #4 tibial baseplate Complications: None; patient tolerated the procedure well. Condition: stable Indications: Patient is a 68-year-old lady who presented with worsening Left knee pain and inability to walk and put weight on left lower extremity. She has undergone left total knee replacement 6 to 7 months ago by different surgeon at a different hospital. Laboratory markers and aspiration of Left knee was suggestive of septic arthrits. It was recommended to undergo and irrigation and debridement of the left knee joint, with exchange of polyethylene insert. We discussed the benefits and risks of the procedure including but not limited to persistent infection, bacteremia, septicemia, bleeding, hematoma formation, need for blood transfusion, tourniquet pain, injury to neurovascular structures and need for repeated procedures, need for revision of all components of total knee replacement, osteomyelitis, possibility of amputation in future, DVT, pulm embolism, cardiopulmonary event, , spinal headache. The patient concurred with the proposed plan, giving informed consent. Procedure Details: The patient was seen in the same day pre-operative area. The site of surgery was verbally confirmed and marked by the surgical team. The patient was properly identified by the unique identifiers and was then at that time transported to the operative theater by [facility]. The patient was then transferred to the operating table, identified name//allergies and the procedure verified. A Time Out was held and the above information confirmed. Patient was positioned supine. The patient Left lower extremity was prepped and draped in sterile fashion. A tourniquet was placed? at the Left thigh.? A 10 blade was used to perform a midline incision over the previous scar. A medial and lateral skin flap was then created and the joint was entered using a medial parapatellar approach. A moderate amount of cloudy and bloody fluid was encountered upon opening the joint. A sample of synovial fluid was sent off to our lab for analysis. We then washed out the Knee joint using a pulsavac with 3L of NS. A rongeur was used to debride the synovium. Some synovitic tissue samples were sent to the lab for analysis as well. We then used our finger to sweep the joint to ensure no loculations or abscesses were in the joint. Adequate amount of exposure was achieved to be able to katerina the patella. Due to scarring from previous surgery, additional time was spent carefully releasing the anteromedial anterolateral aspect of the superior tibia to be able to perform this patellar eversion. Quadriceps snip technique was also utilized to assist with this process. Hohmann retractors were placed on either side of the tibial insert. The knee was flexed and an osteotome was utilized to raise the tibial insert and was removed in 1 piece. Some infected granulation tissue was seen over the metal tibial baseplate this was also removed and sent for cultures. Thorough irrigation was again given. Irrisept was kept in the wound for about 1 minute. All loose synovium that appeared infected was removed with the help of rongeur's. Thorough debridement was done. Irrigation was again performed. Irrisept was kept in the wound again for a minute. Bone hook was then utilized to raise the femur and a new #10 size polyethylene insert for a #4 tibial baseplate was then inserted at an angle for the lips to engage posteriorly. A mallet with soft punch was then utilized to place the anterior end of the polyethylene insert into position such that the locking wire was underneath the anterior lip. Good fixation of the poly insert was confirmed manually. The knee was taken through the range of motion to make sure the patella tracks easily. Additional irrigation was performed and Irrisept was again placed in the wound for a total of 1 minute. A Hemovac drain was then placed in the joint exiting out superolaterally. The joint capsule was closed with 0 Monocryl in a interrupted fashion. This was then reinforced with running #1 PDS. Tourniquet was released at 79 minutes. Hemostasis was achieved. 1 g TXA was given IV. The subcutaneous layer was closed with 0 Monocryl for the deeper layer and 2-0 Monocryl for the superficial layer. The skin was then closed using 3-0 Nylon in a horizontal mattress pattern. The wound was then cleaned and wrapped in soft dressings and Mt wrap. The Hemovac drain was anchored to the skin with 3-0 nylon. I was present and scrubbed for the entire procedure. ? Postoperative plan: LLE WBAT F/u Cx- Recommend ID consult F/u Drain output- Likely to remove when output less than 30ml per shift Will continue to monitor for improvement. Surgeon: Jaciel Jackson Procedures Musculoskeletal [id number]: Other Procedure See Report
[2024-01-29 12:57] LABS: Bedside Glucose 71 mg/dL (74-106)
--- NOTE | 2024-01-29 13:58 | PN_ITS ---
Subjective Subjective Patient seen and examined. She still complains of left knee pain and pain with movement. He denies any fever or chills. Review of symptoms otherwise negative. She had left knee irrigation and debridement as well as removal and reinsertion of polyethylene insert left total knee replacement revision component done today by orthopedic surgery. Today's postop day 0. She has remained hemodynamically stable. Objective Data Objective Data Vital Signs: Vital Signs Temp Pulse Resp BP Pulse Ox O2 Del Method O2 Flow Rate 97.5 F L 51 L 16 149/67 H 100 Nasal Cannula 3 01/29/24 13:36 01/29/24 13:36 01/29/24 13:36 01/29/24 13:36 01/29/24 13:36 01/29/24 13:36 01/29/24 13:36 Oxygen Flow Rate (L/min) 3 Oxygen Delivery Method Nasal Cannula Weight: 238 lb 1.588 oz Body Mass Index (BMI) 43.5 Intake & Output: Intake and Output for Last 24 Hours 01/27/24 01/28/24 01/29/24 23:59 23:59 23:59 Intake Total 1040 / 1040 425 / 425 Output Total 300 / 300 Balance 1040 / 1040 125 / 125 Lab / Micro Data 01/29/24 05:10 01/29/24 05:10 Labs: Laboratory Results - last 24 hr 01/28/24 13:10: Fluid Source Cancelled, Fluid Color Cancelled, Fluid Appearance Cancelled, Fluid WBC Cancelled, Fluid RBC Cancelled, Fluid Tot Cell Count Cancelled, Fld Polynuclear WBCs # Cancelled, Fld Polynuclear WBCs % Cancelled, Fluid Mononuclear WBCs Cancelled, Fld Mononuclear WBCs % Cancelled, Fluid Neutrophils Cancelled, Fluid Lymphocytes Cancelled, Fluid Monocytes Cancelled, Fluid Plasma Cells Cancelled, Fluid Macrophages Cancelled, Fld Mesothelial Cells Cancelled, Fluid Other Cells Cancelled, Fluid Crystals See PATH REV, Fluid Crystal Source SYNOVIAL, Fl Crystal Path Review Will follow, Fl Pathologist Comment Cancelled, Fluid Comment 2 Cancelled, Synovial Source L KNEE ASP., Synovial Color Yellow, Synovial Appearance Cloudy, Synovial WBC 51.5600 H, S ynovial RBC 0.263 H, Synovial Tot Cell Ct 56.8160 H, Synov Polynuclear WBCs 53.350, Synov Mononuclear WBCs 3.440, Synovial Neutrophils 94 H, Synovial Monocytes 6, Synovial Polynuclear % 94.0, Synovial Mononuclear % 6.0, Synovial Path Comment May follow 01/28/24 16:45: POC Glucose 178 H 01/28/24 22:40: POC Glucose 174 H 01/29/24 05:10: WBC 8.5, RBC 3.65 L, Hgb 10.3 L, Hct 32.0 L, MCV 87.7, MCH 28.2, MCHC 32.2, RDW Std Deviation 47.3 H, RDW Coeff of Sidra 14.8 H, Plt Count 178, MPV 11.1, Immature Gran % (Auto) 1.200 H, Neut % (Auto) 66.9, Lymph % (Auto) 22.4, [place] % (Auto) 8.5, Eos % (Auto) 0.5, Baso % (Auto) 0.5, Absolute Neuts (auto) 5.7, Absolute Lymphs (auto) 1.90, Nucleated RBC % 0, PT 14.0, INR 1.1, APTT 34.0, Sodium 133 L, Potassium 4.7, Chloride 101, Carbon Dioxide 27.0, Anion Gap 5, BUN 14, Creatinine 1.39 H, Estim Creat Clear Calc 45.42, Est GFR (MDRD) Af Amer 49 L, Est GFR (MDRD) Non-Af 40 L, BUN/Creatinine Ratio 10.1, Glucose 104, H emoglobin A1c 8.1 H, Calcium 8.6, TSH 5.930 H 01/29/24 05:34: POC Glucose 107 H 01/29/24 12:40: POC Glucose 71 L Micro: Microbiology 01/28/24 13:10 Fluid - Synovial (joint) Gram Stain - Final 01/28/24 13:10 Fluid - Synovial (joint) Body Fluid Culture - Preliminary GNR Poss Pseudomonas sp Physical Exam Const alert, oriented x3 and no apparent distress Constitutional Narrative: obese General Appearance: cooperative HEENT normocephalic and moist oral mucous membranes Eyes PERRL and EOMs intact bilaterally Neck no lymphadenopathy and supple Lymph Lymphatic: no lymphadenopathy noted Resp normal respiratory effort, normal air movement and clear to auscultation bilaterally Cardio regular rate, regular rhythm, S1 normal heart sound and S2 normal heart sound GI normal to inspection, nondistended, normoactive bowel sounds, soft to palpation and non-tender Extremity normal capillary refill and no clubbing, cyanosis or edema Extremity Narrative: left knee remains mildly warm and has erythematous areas with erythematous bumps just above the right knee, very tender to touch, no fluctuance. Able to flex and extend knee. Of note she was seen before surgery. Skin Skin Narrative: as under extremity Neuro CN's II-XII intact bilaterally and no focal motor deficits Motor Exam: general weakness Psych thought process normal and cooperative Appearance: appropriate Assessment & Plan Assessment/Plan (1) Left knee pain: QUALIFIERS: Chronicity: acute Qualified Code(s): M25.562 - Pain in left knee PLAN: Plan #Intractable left knee pain due to septic arthritis of knee joint * Concerning for septic arthritis. She had a total knee replacement done in August of this year at [facility]. She does have some erythematous bumpy lesions just above the left knee on the lateral side. She has had no fever or chills. ESR and CRP are elevated and procalcitonin is 0.12. * PT OT on board. Fall precaution. P.o. Tylenol, p.o. oxycodone and IV morphine as needed for pain * synovial fluid analysis shows elevated synovial fluid wbc of 51.5, total wbc of 56.8160 awith 94% polymorphonuclear cells * Patient was started on IV vancomycin and cefepime empirically for septic arthritis. ID consulted. Blood cultures ordered. * She had left knee irrigation and debridement with removal and insertion of polyethylene insert of left total knee replacement revision of 1 component done today. Today's postop day 0. * Per orthopedic surgery, to hold DVT prophylaxis until the drain is out which will likely be tomorrow the day after. Weight-bear as tolerated and PT OT mobilization. * ID consulted. Await recs. #Chronic hypoxic respiratory failure due to COPD * Currently on 3 L of oxygen. Breathing treatments bronchodilators. * Titrate oxygen to maintain saturation above 90%. #Type 2 diabetes mellitus with neuropathy: On Lantus 40 units bid. Insulin/scale. Accu-Cheks ACHS. On gabapentin. A1C is 8.1 #Hypertension: on metoprolol. IV hydralazine prn #Chronic thrombocytopenia: Platelets are from 148 yesterday to 178 today. Will monitor. #CKD stage III: Cr at baseline and is 1.39 today will monitor. #Anxiety depression: On citalopram and trazodone nightly. #Hypothyroidism: * On Synthroid. TSH on 01/13/2024 was 1.36. Repeat TSH done today was 5.93. * The reason for the rise is unclear. * I would not adjust the dose of Synthroid now recommend the patient follows up with the PCP on outpatient basis for recheck of her thyroid function test as her acute illness could have been the cause of the spurious rise in the TSH. #Super morbid obesity: BMI is 43.5. Complicates acute care, expected recovery and prognosis. DVT prophylaxis: Lovenox; hold Lovenox until drain is removed per orthopedic surgeon recommendation. Will place on SCDs. Charges/Coding Visit Charges Inpatient E&M: 52081 Subs Hosp L3
[2024-01-29] MEDS: Acetaminophen 325 MG Tablet 650 MG PO (15:42)
[2024-01-29 17:02] LABS: Bedside Glucose 86 mg/dL (74-106)
--- NOTE | 2024-01-29 19:45 | NURSING ---
This RN was notified by the [facility] aide that she was assisting patient back to bed from the chair and forgot the patient had a hemovac. The hemovac was caught and was ripped out. The suture is still in the leg and a dressing was applied to the insertion site of the hemovac. Dr. Jackson was paged via range operator and gave instructions to removed suture and apply dressing to site.
[2024-01-29] MEDS: Montelukast 10 MG Tablet PO (20:09)
[2024-01-29] MEDS: traZODone 100 MG Tablet PO (20:09)
[2024-01-29] MEDS: Atorvastatin Calcium 20 MG Tablet PO (20:09)
[2024-01-29] MEDS: Insulin Lispro 100 UNIT/ML INSULN.PEN SC (20:38)
[2024-01-29] MEDS: Insulin Glargine-YFGN 100 UNIT/ML Pen 40 UNIT SC (20:39)
[2024-01-29 21:53] LABS: Bedside Glucose 167 mg/dL (74-106)
[2024-01-29] MEDS: Morphine 2 MG/ML Syringe IV (23:02)
[2024-01-30] VITALS (10 sets, daily range): BP systolic 128–150; BP diastolic 52–78; PULSE 63–85; RESP 15–18; TEMP 36.3–37.4; O2SAT 92–100; BMI 43.0
[2024-01-30 04:06] LABS: GLUCOSE, SYNOVIAL FLUID 157 mg/dL (.); PROTEIN, SYNOVIAL FLUID 4.2 g/dL (.)
[2024-01-30] MEDS: Nystatin Powder 15gm Bottle 1 APPLIC TOPICAL ×2 (04:37→14:05)
[2024-01-30] MEDS: Acetaminophen 325 MG Tablet 650 MG PO (04:38)
[2024-01-30] MEDS: oxyCODONE 5 MG Tablet PO ×2 (04:38→17:14)
[2024-01-30] MEDS: Gabapentin 800 MG Tablet PO ×2 (04:38→14:05)
[2024-01-30] MEDS: Menthol/Lanolin/Calamine/Znox 113 GM Tube 1 APPLIC TOPICAL ×2 (04:38→14:05)
[2024-01-30] MEDS: Levothyroxine 75 MCG Tablet PO (04:39)
[2024-01-30 05:46] LABS: Absolute Lymphocyte Count 1.55 X10^3/uL (0.83-4.51); Absolute Neutrophil Count 7.9 X10^3/uL (2.0-7.7); Basophil# 0.04 X10^3/uL; Basophil% 0.4 % (0-1); Eosinophil# 0.04 X10^3/uL; Eosinophils% 0.4 % (0-5); Hematocrit 30.2 % (37-47); Hemoglobin 9.9 g/dL (12.0-15.0); Lymphocyte # 1.55 X10^3/ul (0.83-4.51); Lymphocyte % 14.7 % (19-41); Mean Corp Hgb Conc 32.8 g/dL (32-36); Mean Corpuscular Hgb 28.2 pg (27.0-32.0); Mean Platelet Vol. 10.5 fl (6.2-12.0); Monocyte# 0.96 X10^3/uL; Monocyte% 9.1 % (0-10); NRBC Flagged by Analyzer 0 % (0-5); Neutrophil % 74.5 % (47-70); Platelet Count 168 K/mm3 (150-450); RBC Distribution Width CV 14.7 % (11.6-14.6); RBC Distribution Width SD 45.7 fl (35.1-43.9); Red Blood Count 3.51 M/mm3 (4.2-5.4); White Blood Count 10.6 K/mm3 (4.4-11.0)
[2024-01-30 06:11] LABS: Vancomycin, Trough Level 26.3 ug/mL (5.0-15.0)
[2024-01-30 06:12] LABS: Anion Gap 4 (5-15); BUN 17 mg/dL (7-18); BUN/Creat Ratio 12.5 RATIO (10-20); Calcium,Total 8.5 mg/dL (8.5-10.1); Chloride 99 mmol/L (98-107); Creatinine, Serum 1.36 mg/dL (0.55-1.02); EST Glomerular Filtration Rate 41 mL/min (>60); Est Glom Filt Rate - Afr Amer 50 mL/min (>60); Estimated Creatinine Clearance 46.42 ml/min; Glucose 136 mg/dL (74-106); Potassium 4.8 mmol/L (3.5-5.1); Sodium Level 128 mmol/L (136-145)
--- NOTE | 2024-01-30 06:19 | PCM.RX.CS ---
Consult Antibiotic Management Pharmacy has been consulted to manage selected antibiotic: Vancomycin Type of Intervention Type of Consult: Follow-up Labs Labs: Sodium 128 mmol/L (136-145) L 01/30/24 05:35 Potassium 4.8 mmol/L (3.5-5.1) 01/30/24 05:35 Chloride 99 mmol/L (98-107) 01/30/24 05:35 Carbon Dioxide 25.0 mmol/L (21.0-32.0) 01/30/24 05:35 Anion Gap 4 (5-15) L 01/30/24 05:35 BUN 17 mg/dL (7-18) 01/30/24 05:35 Creatinine 1.36 mg/dL (0.55-1.02) H 01/30/24 05:35 Est GFR (MDRD) Af Amer 50 mL/min (>60) L 01/30/24 05:35 Est GFR (MDRD) Non-Af 41 mL/min (>60) L 01/30/24 05:35 BUN/Creatinine Ratio 12.5 RATIO (10-20) 01/30/24 05:35 Glucose 136 mg/dL (74-106) H 01/30/24 05:35 Vancomycin Trough 26.3 ug/mL (5.0-15.0) H 01/30/24 05:35 Microbiology Microbiology: Microbiology 01/28/24 13:10 Fluid - Synovial (joint) Gram Stain - Final 01/28/24 13:10 Fluid - Synovial (joint) Body Fluid Culture - Preliminary GNR Poss Pseudomonas sp Goal Trough Goal Trough: 15-20 mcg/mL Pharmacy Plan for Drug Dosing Pharmacy Plan for Drug Dosing: Pharmacy Service will continue to monitor and adjust dosing as required. TROUGH 26.3 @ 11 HOURS. HOLD DOSE, DRAW RANDOM LEVEL IN 12 HOURS Follow-Up Labs Follow-Up Labs: Trough: Vancomycin Date/Time Labs Ordered Labs to be done on [date and time ordered]: 01/29 @ 5702
[2024-01-30] MEDS: Budesonide Respules 0.5 MG/2 ML AMPUL.NEB. INHALATION ×2 (08:00→20:02)
--- NOTE | 2024-01-30 10:10 | CASEMGMT ---
Social Work- SW met with pt to discuss therapy reports and pt preferences. Pt reports that she did not sleep well last night and was observed to have some mild confusion. Pt reports that she would like to go home with [facility] and reports that her sister is capable to helping her at home. SW provided education and support; introducing potential need for SNF, as that is therapy recommendation at this time. SW will remain available to follow. LEONA Carrion
--- NOTE | 2024-01-30 11:01 | PN.HOSP_ITS ---
Reason for Visit Reason for Visit: Diagnoses Pain in left knee (01/29/24) Difficulty in walking, not elsewhere classified (01/29/24) Infection and inflammatory reaction due to other internal joint prosthesis, initial encounter (01/29/24) Presence of left artificial knee joint (01/29/24) Presence of unspecified artificial knee joint (01/29/24) Subjective Subjective ongoing knee pain Objective Data Objective Data Vital Signs: Vital Signs Temp Pulse Resp BP Pulse Ox O2 Del Method O2 Flow Rate 36.8 C 66 18 150/61 H 92 Nasal Cannula 2 01/30/24 09:29 01/30/24 09:29 01/30/24 09:29 01/30/24 09:29 01/30/24 09:29 01/30/24 09:29 01/30/24 09:29 Oxygen Flow Rate (L/min) 2 Oxygen Delivery Method Nasal Cannula Weight: 106.7 kg Body Mass Index (BMI) 43.0 Intake & Output: Intake and Output for Last 24 Hours 01/28/24 01/29/24 01/30/24 23:59 23:59 23:59 Intake Total 1040 / 1040 990 / 1220 430 / 430 Output Total 900 / 900 Balance 1040 / 1040 90 / 320 430 / 430 Lab / Micro Data 01/30/24 05:35 01/30/24 05:35 Labs: Laboratory Results - last 24 hr 01/28/24 13:10: Fluid Source Cancelled, Fluid Color Cancelled, Fluid Appearance Cancelled, Fluid WBC Cancelled, Fluid RBC Cancelled, Fluid Tot Cell Count Cancelled, Fld Polynuclear WBCs # Cancelled, Fld Polynuclear WBCs % Cancelled, Fluid Mononuclear WBCs Cancelled, Fld Mononuclear WBCs % Cancelled, Fluid Neutrophils Cancelled, Fluid Lymphocytes Cancelled, Fluid Monocytes Cancelled, Fluid Plasma Cells Cancelled, Fluid Macrophages Cancelled, Fld Mesothelial Cells Cancelled, Fluid Other Cells Cancelled, Fluid Crystals See PATH REV, Fluid Crystal Source SYNOVIAL, Fl Crystal Path Review Will follow, Fl Pathologist Comment Cancelled, Fluid Comment 2 Cancelled, Synovial Source L KNEE ASP., Synovial Color Yellow, Synovial Appearance Cloudy, Synovial WBC 51.5600 H, S ynovial RBC 0.263 H, Synovial Tot Cell Ct 56.8160 H, Synov Polynuclear WBCs 53.350, Synov Mononuclear WBCs 3.440, Synovial Neutrophils 94 H, Synovial Monocytes 6, Synovial Polynuclear % 94.0, Synovial Mononuclear % 6.0, Synovial Path Comment May follow, Synovial Glucose 157 01/29/24 05:34: POC Glucose 107 H 01/29/24 12:40: POC Glucose 71 L 01/29/24 16:43: POC Glucose 86 01/29/24 20:36: POC Glucose 167 H 01/30/24 05:35: WBC 10.6, RBC 3.51 L, Hgb 9.9 L, Hct 30.2 L, MCV 86.0, MCH 28.2, MCHC 32.8, RDW Std Deviation 45.7 H, RDW Coeff of Sidra 14.7 H, Plt Count 168, MPV 10.5, Immature Gran % (Auto) 0.900, Neut % (Auto) 74.5 H, Lymph % (Auto) 14.7 L, [place] % (Auto) 9.1, Eos % (Auto) 0.4, Baso % (Auto) 0.4, Absolute Neuts (auto) 7.9 H, Absolute Lymphs (auto) 1.55, Nucleated RBC % 0, Sodium 128 L, Potassium 4.8, Chloride 99, Carbon Dioxide 25.0, Anion Gap 4 L, BUN 17, Creatinine 1.36 H, Estim Creat Clear Calc 46.42, Est GFR (MDRD) Af Amer 50 L, Est GFR (MDRD) Non-Af 41 L, BUN/Creatinine Ratio 12.5, Glucose 136 H, Calcium 8.5, Vancomycin Trough 26.3 H Micro: Microbiology 01/29/24 11:12 Tissue - Knee Gram Stain - Final 01/29/24 11:12 Tissue - Knee Wound Culture - Preliminary GNR Poss Pseudomonas sp 01/29/24 10:57 Tissue - Knee Gram Stain - Final 01/29/24 10:57 Tissue - Knee Wound Culture - Preliminary GNR Poss Pseudomonas sp 01/29/24 10:46 Tissue - Knee Gram Stain - Final 01/28/24 13:10 Fluid - Synovial (joint) Gram Stain - Final 01/28/24 13:10 Fluid - Synovial (joint) Body Fluid Culture - Preliminary Pseudomonas aeruginosa 01/28/24 13:10 Fluid - Synovial (joint) Anaerobic Culture - Preliminary No growth in 48 hours. Physical Exam Const alert and no apparent distress HEENT head/scalp atraumatic and moist oral mucous membranes Resp normal respiratory effort and no retractions Extremity Extremity Narrative: Left knee tender to palpation. Incision on anterior bandaged without surrounding erythema extending beyond Neuro Sensorium / Orientation: awake and alert Assessment & Plan Assessment/Plan (1) Left knee pain: QUALIFIERS: Chronicity: acute Qualified Code(s): M25.562 - Pain in left knee PLAN: Plan Left knee septic arthritis * 01/27: knee aspiration was synovial WBCs of 51.5 * 01/28: I+D removal and reinsertion of polyethylene insert left total knee replacement. * Culture from the showing pseudomonas and possible pseudomonas * Abx with cefepime and vancomycin. * ID on consult Chronic conditions: * Chronic hypoxic respiratory failure due to COPD Currently on 3 L of oxygen. Breathing treatments bronchodilators. * Type 2 diabetes mellitus with neuropathy: On Lantus 40 units bid. Insulin/scale. Accu-Cheks ACHS. On gabapentin. A1C is 8.1 * Hypertension: on metoprolol succinate 100/d * CKD stage III: Cr at baseline and is 1.39 today will monitor. * Anxiety depression: On citalopram and trazodone nightly. * Hypothyroidism: continue levothyroxine. TSH 5.93. Check Ft4. * Obesity class III: complicates care and recovery. Super morbid obesity: BMI is 43.5. Complicates acute care, expected recovery and prognosis. DVT prophylaxis: SCDs Charges/Coding Visit Charges Inpatient E&M: 19966 Subs Hosp L2
[2024-01-30 11:32] LABS: Bedside Glucose 125 mg/dL (74-106)
[2024-01-30 11:38] LABS: Bedside Glucose 141 mg/dL (74-106)
[2024-01-30] MEDS: Arthritis Pain Compound 60 CLICK TUBE TOPICAL ×2 (12:12→22:35)
[2024-01-30] MEDS: Cefepime HCl 1 GM in 0.9% Normal Saline (50mL MB+) 50 ML IV (12:12)
[2024-01-30] MEDS: guaiFENesin/D-Methorphan TAB.SR.12H 2 TABLET PO (12:12)
[2024-01-30] MEDS: Aspirin E.C. 81 MG Tablet PO (12:13)
[2024-01-30] MEDS: Pantoprazole Sodium 40 MG Tablet PO (12:13)
[2024-01-30] MEDS: amLODIPine 5 MG Tablet PO (12:13)
[2024-01-30] MEDS: DULoxetine Hcl 20 MG Capsule PO ×2 (12:13→22:34)
[2024-01-30] MEDS: Furosemide 40 MG Tablet PO (12:14)
[2024-01-30] MEDS: Insulin Glargine-YFGN 100 UNIT/ML Pen 40 UNIT SC (12:14)
[2024-01-30] MEDS: Metoprolol(XL)Succ 100 MG Tablet PO (12:14)
[2024-01-30 12:58] LABS: Pathologist Review Reviewed
--- NOTE | 2024-01-30 13:30 | RAD_ITS ---
INDICATION: Inadvertent drain pullout -- Please do AP lateral, okay to do portable EXAMINATION/TECHNIQUE: X-RAY - LEFT XR Knee 2 Views COMPARISON: FINDINGS: SOFT TISSUES: There is subcutaneous edema anteriorly. Possible focal gas in the suprapatellar bursa. Stable left total knee replacement. The hardware components are well aligned similar to the previous study No sclerotic or destructive changes observed. RAD/Knee 1 or 2 Views IMPRESSION: Stable total knee replacement. Anterior subcutaneous edema. Possible focal gas in the suprapatellar bursa. Electronically Signed: Ovidio Pham DO at 16:28 EDT ,
[2024-01-30] MEDS: Vancomycin Trough/Random Due 1 LAB MC (15:05)
--- NOTE | 2024-01-30 16:19 | PN.ORTHO_ITS ---
Subjective Subjective POD 1 left knee revision. Her pain is well managed. Says that she can move the knee more now than prior to surgery. Last night her drain got tugged out when going from sitting to standing with assistance. Xrays done today show no remaining drain. Encouraged the patient to walk with PT and OT and to work on knee ROM when in bed. Objective Data Objective Data Vital Signs: Vital Signs Temp Pulse Resp BP Pulse Ox O2 Del Method O2 Flow Rate 98.5 F 64 17 128/64 H 93 Nasal Cannula 2 01/30/24 14:09 01/30/24 14:09 01/30/24 14:09 01/30/24 14:09 01/30/24 14:09 01/30/24 14:46 01/30/24 14:46 Oxygen Flow Rate (L/min) 2 Oxygen Delivery Method Nasal Cannula Weight: 235 lb 3.732 oz Body Mass Index (BMI) 43.0 Intake & Output: Intake and Output for Last 24 Hours 01/28/24 01/29/24 01/30/24 23:59 23:59 23:59 Intake Total 1040 / 1040 990 / 1220 735 / 735 Output Total 900 / 900 200 / 200 Balance 1040 / 1040 90 / 320 535 / 535 Lab / Micro Data 01/30/24 05:35 01/30/24 05:35 Labs: Laboratory Results - last 24 hr 01/28/24 13:10: Fl Crystal Path Review Reviewed, Synovial Glucose 157 01/29/24 16:43: POC Glucose 86 01/29/24 20:36: POC Glucose 167 H 01/30/24 04:38: POC Glucose 125 H 01/30/24 05:35: WBC 10.6, RBC 3.51 L, Hgb 9.9 L, Hct 30.2 L, MCV 86.0, MCH 28.2, MCHC 32.8, RDW Std Deviation 45.7 H, RDW Coeff of Sidra 14.7 H, Plt Count 168, MPV 10.5, Immature Gran % (Auto) 0.900, Neut % (Auto) 74.5 H, Lymph % (Auto) 14.7 L, [place] % (Auto) 9.1, Eos % (Auto) 0.4, Baso % (Auto) 0.4, Absolute Neuts (auto) 7.9 H, Absolute Lymphs (auto) 1.55, Nucleated RBC % 0, Sodium 128 L, Potassium 4.8, Chloride 99, Carbon Dioxide 25.0, Anion Gap 4 L, BUN 17, Creatinine 1.36 H, Estim Creat Clear Calc 46.42, Est GFR (MDRD) Af Amer 50 L, Est GFR (MDRD) Non-Af 41 L, BUN/Creatinine Ratio 12.5, Glucose 136 H, Calcium 8.5, Vancomycin Trough 26.3 H 01/30/24 11:20: POC Glucose 141 H Micro: Microbiology 01/29/24 11:12 Tissue - Knee Gram Stain - Final 01/29/24 11:12 Tissue - Knee Wound Culture - Preliminary GNR Poss Pseudomonas sp 01/29/24 10:57 Tissue - Knee Gram Stain - Final 01/29/24 10:57 Tissue - Knee Wound Culture - Preliminary GNR Poss Pseudomonas sp 01/29/24 10:46 Tissue - Knee Gram Stain - Final 01/28/24 13:10 Fluid - Synovial (joint) Gram Stain - Final 01/28/24 13:10 Fluid - Synovial (joint) Body Fluid Culture - Preliminary Pseudomonas aeruginosa 01/28/24 13:10 Fluid - Synovial (joint) Anaerobic Culture - Preliminary No growth in 48 hours. Physical Exam Const alert, oriented x3 and no apparent distress Extremity Extremity Narrative: Dressing and leyda wrap intact, no drainage noticed. Pain with knee flexion and extension. No pain with ankle movements. Assessment & Plan Assessment/Plan (1) Status post total knee replacement, left: PLAN: Plan POD 1 left knee revision secondary to infection PT/OT weight bearing as tolerated, no restrictions, encourage knee mobility in bed ID consult Continue empiric antibiotics until ID recommendation based on sensitivity testing, likely will require PICC line.
[2024-01-30 16:35] LABS: Bedside Glucose 177 mg/dL (74-106)
[2024-01-30] MEDS: Insulin Lispro 100 UNIT/ML INSULN.PEN SC (17:10)
[2024-01-30 18:23] LABS: Vancomycin, Random Level 17.9 ug/mL (0.0-15.0)
--- NOTE | 2024-01-30 18:56 | PCM.RX.CS ---
Consult Antibiotic Management Pharmacy has been consulted to manage selected antibiotic: Vancomycin Type of Intervention Type of Consult: Follow-up Prior Doses of Antibiotics Prior Doses of Antibiotics Received/Current Regimen: Has been on 750mg iv q12h. Labs Labs: Sodium 128 mmol/L (136-145) L 01/30/24 05:35 Potassium 4.8 mmol/L (3.5-5.1) 01/30/24 05:35 Chloride 99 mmol/L (98-107) 01/30/24 05:35 Carbon Dioxide 25.0 mmol/L (21.0-32.0) 01/30/24 05:35 Anion Gap 4 (5-15) L 01/30/24 05:35 BUN 17 mg/dL (7-18) 01/30/24 05:35 Creatinine 1.36 mg/dL (0.55-1.02) H 01/30/24 05:35 Est GFR (MDRD) Af Amer 50 mL/min (>60) L 01/30/24 05:35 Est GFR (MDRD) Non-Af 41 mL/min (>60) L 01/30/24 05:35 BUN/Creatinine Ratio 12.5 RATIO (10-20) 01/30/24 05:35 Glucose 136 mg/dL (74-106) H 01/30/24 05:35 Vancomycin Trough 26.3 ug/mL (5.0-15.0) H 01/30/24 05:35 Random Vancomycin 17.9 ug/mL (0.0-15.0) H 01/30/24 17:47 Microbiology Microbiology: Microbiology 01/29/24 11:12 Tissue - Knee Gram Stain - Final 01/29/24 11:12 Tissue - Knee Wound Culture - Preliminary GNR Poss Pseudomonas sp 01/29/24 10:57 Tissue - Knee Gram Stain - Final 01/29/24 10:57 Tissue - Knee Wound Culture - Preliminary GNR Poss Pseudomonas sp 01/29/24 10:46 Tissue - Knee Gram Stain - Final 01/28/24 13:10 Fluid - Synovial (joint) Gram Stain - Final 01/28/24 13:10 Fluid - Synovial (joint) Body Fluid Culture - Preliminary Pseudomonas aeruginosa 01/28/24 13:10 Fluid - Synovial (joint) Anaerobic Culture - Preliminary No growth in 48 hours. Dosing Weight Weight used for dosin kg Estimated Creatinine Clearance Estimated Creatinine Clearance: 46ml/min Goal Trough Goal Trough: 15-20 mcg/mL Pharmacy Plan for Drug Dosing Pharmacy Plan for Drug Dosing: Random level today 17.9 and in therapeutic range. Level was ~23.5hrs post dose. Previous Trough this AM was elevated at 26.3. Recommend changing dose to 1250mg iv q24h with trough level before 3rd dose per policy. Pharmacy Service will continue to monitor and adjust dosing as required. Follow-Up Labs Follow-Up Labs: Trough: Vancomycin (02.01.24 @1930)
[2024-01-30] MEDS: Montelukast 10 MG Tablet PO (22:34)
[2024-01-30] MEDS: Atorvastatin Calcium 20 MG Tablet PO (22:34)
[2024-01-30] MEDS: traZODone 100 MG Tablet PO (22:34)
[2024-01-30] MEDS: Vancomycin HCl 1,250 MG in 0.9% Normal Saline (250mL Bag) 250 ML 167 MG IV (22:40)
[2024-01-31] VITALS (11 sets, daily range): BP systolic 130–160; BP diastolic 51–70; PULSE 60–86; RESP 14–18; TEMP 36.8–37; O2SAT 94–100; BMI 43.0
[2024-01-31] MEDS: Insulin Glargine-YFGN 100 UNIT/ML Pen 40 UNIT SC ×3 (00:01→23:12)
[2024-01-31] MEDS: Menthol/Lanolin/Calamine/Znox 113 GM Tube 1 APPLIC TOPICAL ×4 (00:04→23:14)
[2024-01-31] MEDS: Gabapentin 800 MG Tablet PO ×2 (00:09→23:14)
[2024-01-31] MEDS: guaiFENesin/D-Methorphan TAB.SR.12H 2 TABLET PO ×3 (00:10→23:18)
[2024-01-31] MEDS: Nystatin Powder 15gm Bottle 1 APPLIC TOPICAL ×4 (00:10→23:14)
[2024-01-31 00:22] LABS: Bedside Glucose 163 mg/dL (74-106)
[2024-01-31] MEDS: Cefepime HCl 1 GM in 0.9% Normal Saline (50mL MB+) 50 ML IV (00:31)
[2024-01-31 04:26] LABS: Bedside Glucose 95 mg/dL (74-106)
[2024-01-31] MEDS: Levothyroxine 75 MCG Tablet PO (06:43)
[2024-01-31] MEDS: Budesonide Respules 0.5 MG/2 ML AMPUL.NEB. INHALATION ×2 (07:10→19:46)
[2024-01-31 07:17] LABS: Absolute Lymphocyte Count 1.84 X10^3/uL (0.83-4.51); Absolute Neutrophil Count 6.3 X10^3/uL (2.0-7.7); Basophil# 0.02 X10^3/uL; Basophil% 0.2 % (0-1); Eosinophil# 0.09 X10^3/uL; Hemoglobin 10.2 g/dL (12.0-15.0); Lymphocyte # 1.84 X10^3/ul (0.83-4.51); Lymphocyte % 20.2 % (19-41); Mean Corp Hgb Conc 31.9 g/dL (32-36); Mean Corpuscular Hgb 27.8 pg (27.0-32.0); Mean Corpuscular Volume 87.2 fL (81-99); Mean Platelet Vol. 10.5 fl (6.2-12.0); Monocyte# 0.75 X10^3/uL; Monocyte% 8.2 % (0-10); NRBC Flagged by Analyzer 0 % (0-5); Neutrophil # 6.34 X10^3/uL (2.7-7.7); Neutrophil % 69.5 % (47-70); Platelet Count 176 K/mm3 (150-450); RBC Distribution Width CV 14.8 % (11.6-14.6); RBC Distribution Width SD 46.8 fl (35.1-43.9); Red Blood Count 3.67 M/mm3 (4.2-5.4); White Blood Count 9.1 K/mm3 (4.4-11.0)
[2024-01-31 07:27] LABS: Bedside Glucose 69 mg/dL (74-106)
[2024-01-31 08:05] LABS: Anion Gap 5 (5-15); BUN 16 mg/dL (7-18); BUN/Creat Ratio 12.1 RATIO (10-20); Calcium,Total 8.8 mg/dL (8.5-10.1); Chloride 99 mmol/L (98-107); Creatinine, Serum 1.32 mg/dL (0.55-1.02); EST Glomerular Filtration Rate 43 mL/min (>60); Est Glom Filt Rate - Afr Amer 52 mL/min (>60); Estimated Creatinine Clearance 47.49 ml/min; Glucose 76 mg/dL (74-106); Potassium 4.1 mmol/L (3.5-5.1); Sodium Level 134 mmol/L (136-145)
[2024-01-31] MEDS: Furosemide 40 MG Tablet PO (08:17)
[2024-01-31] MEDS: DULoxetine Hcl 20 MG Capsule PO ×2 (08:17→23:29)
[2024-01-31] MEDS: Aspirin E.C. 81 MG Tablet PO (08:18)
[2024-01-31] MEDS: Cyanocobalamin 500 MCG Tablet 1000 MCG PO (08:18)
[2024-01-31] MEDS: Metoprolol(XL)Succ 100 MG Tablet PO (08:18)
[2024-01-31] MEDS: amLODIPine 5 MG Tablet PO (08:18)
[2024-01-31] MEDS: Arthritis Pain Compound 60 CLICK TUBE TOPICAL ×2 (08:19→23:14)
[2024-01-31] MEDS: Pantoprazole Sodium 40 MG Tablet PO (08:19)
--- NOTE | 2024-01-31 09:05 | PN.HOSP_ITS ---
Reason for Visit Reason for Visit: Diagnoses Pain in left knee (01/29/24) Difficulty in walking, not elsewhere classified (01/29/24) Infection and inflammatory reaction due to other internal joint prosthesis, initial encounter (01/29/24) Presence of left artificial knee joint (01/29/24) Presence of unspecified artificial knee joint (01/29/24) Subjective Subjective Still with left knee pain. Objective Data Objective Data Vital Signs: Vital Signs Temp Pulse Resp BP Pulse Ox O2 Del Method O2 Flow Rate 37.0 C 72 14 131/56 H 95 Room Air 2 01/31/24 08:58 01/31/24 08:58 01/31/24 08:58 01/31/24 08:58 01/31/24 08:58 01/31/24 08:58 01/31/24 04:00 Oxygen Flow Rate (L/min) 2 Oxygen Delivery Method Room Air Weight: 106.7 kg Body Mass Index (BMI) 43.0 Intake & Output: Intake and Output for Last 24 Hours 01/29/24 01/30/24 01/31/24 23:59 23:59 23:59 Intake Total 990 / 1220 735 / 935 725 / 725 Output Total 900 / 900 450 / 750 700 / 700 Balance 90 / 320 285 / 185 25 / Lab / Micro Data 01/31/24 06:56 01/31/24 06:56 Labs: Laboratory Results - last 24 hr 01/28/24 13:10: Fl Crystal Path Review Reviewed 01/30/24 04:38: POC Glucose 125 H 01/30/24 11:20: POC Glucose 141 H 01/30/24 16:11: POC Glucose 177 H 01/30/24 17:47: Random Vancomycin 17.9 H 01/30/24 23:59: POC Glucose 163 H 01/31/24 04:05: POC Glucose 95 01/31/24 06:56: WBC 9.1, RBC 3.67 L, Hgb 10.2 L, Hct 32.0 L, MCV 87.2, MCH 27.8, MCHC 31.9 L, RDW Std Deviation 46.8 H, RDW Coeff of Sidra 14.8 H, Plt Count 176, MPV 10.5, Immature Gran % (Auto) 0.900, Neut % (Auto) 69.5, Lymph % (Auto) 20.2, [place] % (Auto) 8.2, Eos % (Auto) 1.0, Baso % (Auto) 0.2, Absolute Neuts (auto) 6.3, Absolute Lymphs (auto) 1.84, Nucleated RBC % 0, Sodium 134 L, Potassium 4.1, Chloride 99, Carbon Dioxide 30.0, Anion Gap 5, BUN 16, Creatinine 1.32 H, Estim Creat Clear Calc 47.49, Est GFR (MDRD) Af Amer 52 L, Est GFR (MDRD) Non-Af 43 L, BUN/Creatinine Ratio 12.1, Glucose 76, Calcium 8.8 01/31/24 07:03: POC Glucose 69 L Micro: Microbiology 01/29/24 11:12 Tissue - Knee Gram Stain - Final 01/29/24 11:12 Tissue - Knee Wound Culture - Final Pseudomonas aeruginosa 01/29/24 11:12 Tissue - Knee Anaerobic Culture - Preliminary No growth in 48 hours. 01/29/24 10:57 Tissue - Knee Gram Stain - Final 01/29/24 10:57 Tissue - Knee Wound Culture - Final Pseudomonas aeruginosa 01/29/24 10:57 Tissue - Knee Anaerobic Culture - Preliminary No growth in 48 hours. 01/29/24 10:46 Tissue - Knee Gram Stain - Final 01/29/24 10:46 Tissue - Knee Wound Culture - Preliminary No growth-Final to follow 01/29/24 10:46 Tissue - Knee Anaerobic Culture - Preliminary No growth in 48 hours. 01/28/24 17:54 Blood Culture (Wb) - Anticubital Right Blood Culture - Preliminary No growth in 48 hours. 01/28/24 13:10 Fluid - Synovial (joint) Gram Stain - Final 01/28/24 13:10 Fluid - Synovial (joint) Body Fluid Culture - Final Pseudomonas aeruginosa 01/28/24 13:10 Fluid - Synovial (joint) Anaerobic Culture - Preliminary No growth in 48 hours. Radiography Diagnostic Testing: Radiology Impression Knee X-Ray 01/30/24 13:30 IMPRESSION: Stable total knee replacement. Anterior subcutaneous edema. Possible focal gas in the suprapatellar bursa. Electronically Signed: Ovidio Pham DO at 16:28 EDT Reading Location ID and State: [facility] / [place] Tel [phone], Service support , Physical Exam Const alert and no apparent distress HEENT head/scalp atraumatic and moist oral mucous membranes Extremity Extremity Narrative: left knee TTP w/o erythema. Neuro Sensorium / Orientation: awake and alert Assessment & Plan Assessment/Plan (1) Left knee pain: QUALIFIERS: Chronicity: acute Qualified Code(s): M25.562 - Pain in left knee PLAN: Plan Left knee septic arthritis * 01/27: knee aspiration was synovial WBCs of 51.5 * 01/28: I+D removal and reinsertion of polyethylene insert left total knee replacement. * Culture from the and showing pseudomonas * Abx with cefepime (DC vancomycin) * ID on consult. Recommeding 6 weeks of IV cefepime. * WBAT. Follow up with orthopaedics upon discharge. Chronic conditions: * Chronic hypoxic respiratory failure due to COPD Currently on 3 L of oxygen. Breathing treatments bronchodilators. * Type 2 diabetes mellitus with neuropathy: On Lantus 40 units bid. Insulin/scale. Accu-Cheks ACHS. On gabapentin. A1C is 8.1 * Hypertension: on metoprolol succinate 100/d * CKD stage III: Cr at baseline and is 1.39 today will monitor. * Anxiety depression: On citalopram and trazodone nightly. * Hypothyroidism: continue levothyroxine. TSH 5.93. Check Ft4. * Obesity class III: complicates care and recovery. DVT prophylaxis: SCDs Plan to discharge home with [facility]
--- NOTE | 2024-01-31 10:11 | CASEMGMT ---
Social Work- SW met with pt to again confirm the desire for HHC despite therapy recommendations. Pt states that she has had an IV in the past and is familiar with the care it requires. Pt reports that pt sister will be able to assist with care as well. Pt reports that her preference is HHC. RNCM advised. LEONA Carrion
--- NOTE | 2024-01-31 10:20 | CASEMGMT ---
Addendum entered by Thomas Gomez 01/31/24 14:34: See PT notes. PT is recommending SNF level of care for the pt. Pt RN also states that the pt has been an assist of 2. However, the pt continues to refuse SNF and states that she wants to go home. Pt states that she feels that she will be safe with the help of her sister at home. Mignon from [facility] calls and states that they cannot start care until (02/01). Dr. Harper updated and DC held. [facility] updated and aware. [facility] also reports that Drug copay per week $119.95 OOP is $4,200 - met $2,141.66, patient has 20% responsibility until met. Pt states that she cannot afford this. SW aware and able to help f/u with the pt to provide resources. Pt states that her sister may be able to help as well. CM to continue to follow. Original Note: Dr. Ashton signs Rx for home IV ATB infusions (Cefepime 2g IV Q12). PICC has been ordered. Per the SW, the pt hasn't been doing well with therapy, but is adamantly refusing SNF needs. Pt wants C set up (See PANDA Pena CM note). PANDA CM to pt room at this time. Pt states that she still wants [facility] (SN,PT, and OT). TC to Mignon at [facility] and referral made. Awaiting return response. Pt states that her sister will be the teachable caregiver. Pt states that she has had home IV infusions in the past but cannot recall the name of the infusion company. This RN CM provided the pt with a list of local in network home infusion companies. Pt states that she would like [facility]. BRUNO Jefferson transportation planning technician, notified and to make referral to [facility]. CM to follow.
--- NOTE | 2024-01-31 10:24 | CON.PCM.ID_ITS ---
Assessment & Plan Assessment/Plan (1) Infection of total knee replacement: QUALIFIERS: Encounter type: initial encounter Qualified Code(s): T84.59XA - Infection and inflammatory reaction due to other internal joint prosthesis, initial encounter; Z96.659 - Presence of unspecified artificial knee joint PLAN: H/o CKD. Cxs (+) PsA. Taken to OR 01/29/[address] Jackson for I&D and poly exchange. Vanc stopped, will increase dose of cefepime. Will order picc and 6 weeks iv cefepime, stop date 03/11/24, then plan will be long course suppressive po cipro. EKG here with QTC less than 450. ID followup in 2-3 weeks. Will follow, thank you, d/w Dr. Jackson and case supervisor HPI Consult Data Date of Consult: 01/31/24 HPI Narrative Reason for Consultation: PJI HPI Narrative: CHRISTIAN PICKETT, is a 68 F with L knee replacement 08/2023, reports one month progressive, severe L knee pain; worse with weight bearing. No redness or drainage, some swelling. Developed associated fever and chills. Aspiration done, taken to OR 01/29/[address] Jackson for I&D and poly exchange. Feeling better, no fever, no n/v/d. Pain improved. Full ROS performed and neg except as noted above. [facility] Medical History (HFpEF) heart failure with preserved ejection fraction Chronic hypoxic respiratory failure, on home oxygen therapy COPD (chronic obstructive pulmonary disease) Diabetes mellitus, type 2 Thrombocytopenia Allergic rhinitis Hypothyroidism Anxiety and depression Morbid obesity CKD (chronic kidney disease), stage III Hyperlipidemia Hypertension Home Medications ?Medication ?Instructions ?Recorded ?Last Taken ?Type ondansetron 4 mg disintegrating 8 mg (2 x 4 mg) PO Q8H PRN PRN 06/20/22 01/27/24 Rx tablet Nausea #20 tabs aspirin 81 mg tablet,delayed 81 mg PO DAILY heart 01/12/24 01/27/24 History release atorvastatin 20 mg tablet 20 mg PO DAILY cholesterol 01/12/24 01/27/24 History citalopram 40 mg tablet 40 mg PO DAILY depression 01/12/24 01/27/24 History gabapentin 800 mg tablet 800 mg PO TID nerve pain 01/12/24 01/27/24 History insulin glargine 100 unit/mL (3 40 unit subcut BID 01/12/24 01/27/24 History mL) subcutaneous pen (Lantus Solostar U-100 Insulin) levothyroxine 75 mcg tablet 75 mcg PO DAILY thyroid 01/12/24 01/27/24 History montelukast 10 mg tablet 10 mg PO QHS allergies 01/12/24 01/27/24 History trazodone 100 mg tablet 100 mg PO QHS sleep 01/12/24 01/27/24 History dextromethorphan-guaifenesin ER 60 1 tab PO Q12H 7 days #14 tabs 01/14/24 01/27/24 Rx mg-1,200 mg tab,extend release,12hr (Mucinex DM) furosemide 40 mg tablet 40 mg PO DAILY 1 month #30 tabs 01/14/24 01/27/24 Rx metoprolol succinate 100 mg 100 mg PO DAILY 1 month #30 tabs 01/14/24 01/27/24 Rx tablet,extended release 24 hr prednisone 20 mg tablet 40 mg (2 x 20 mg) PO DAILY 5 days 01/14/24 01/27/24 Rx #10 tabs sennosides 8.6 mg-docusate sodium 2 tab PO BID PRN PRN Constipation 01/14/24 01/27/24 Rx 50 mg tablet (Stimulant Laxative #0 tabs Plus) amlodipine 5 mg tablet 5 mg PO DAILY 01/27/24 01/27/24 History cyanocobalamin (vitamin B-12) 1,000 mcg PO QODAY 01/27/24 01/27/24 History 1,000 mcg tablet duloxetine 20 mg capsule,delayed 20 mg PO BID 01/27/24 01/27/24 History release omeprazole 40 mg capsule,delayed 40 mg PO 01/27/24 01/26/24 History release cefepime 1 gram solution for 2 g IV Q12 40 days #80 ea 01/31/24 Unknown Rx injection Allergy/AdvReac Type Severity Reaction Status Date / Time No Known Allergies Allergy Verified 01/27/24 18:50 Family History Mother Brain aneurysm Father Hypertension Heart disease Heart failure Surgical History History of total left knee replacement Hx of oophorectomy Social History household members: family Smoking Status: Current every day smoker tobacco type: cigarettes Smoking packs per day: 0.25 Smoking cigarettes per day: 5.0 and e-cigarettes alcohol intake: never substance use type: does not use Physical Exam Const alert, oriented x3 and no apparent distress General Appearance: cooperative HEENT normocephalic and head/scalp atraumatic Eyes PERRL and EOMs intact bilaterally Neck supple and No nodes Resp normal air movement and clear to auscultation bilaterally Cardio regular rate and regular rhythm GI soft to palpation, non-tender and non-distended Extremity General Extremity: edema Skin Skin Narrative: L knee wrapped Neuro CN's II-XII intact bilaterally Lab / Micro Data Attestation: I reviewed the patient's lab results. 01/31/24 06:56 01/31/24 06:56 Labs: Laboratory Results - last 24 hr 01/28/24 13:10: Fl Crystal Path Review Reviewed 01/30/24 04:38: POC Glucose 125 H 01/30/24 11:20: POC Glucose 141 H 01/30/24 16:11: POC Glucose 177 H 01/30/24 17:47: Random Vancomycin 17.9 H 01/30/24 23:59: POC Glucose 163 H 01/31/24 04:05: POC Glucose 95 01/31/24 06:56: WBC 9.1, RBC 3.67 L, Hgb 10.2 L, Hct 32.0 L, MCV 87.2, MCH 27.8, MCHC 31.9 L, RDW Std Deviation 46.8 H, RDW Coeff of Sidra 14.8 H, Plt Count 176, MPV 10.5, Immature Gran % (Auto) 0.900, Neut % (Auto) 69.5, Lymph % (Auto) 20.2, [place] % (Auto) 8.2, Eos % (Auto) 1.0, Baso % (Auto) 0.2, Absolute Neuts (auto) 6.3, Absolute Lymphs (auto) 1.84, Nucleated RBC % 0, Sodium 134 L, Potassium 4.1, Chloride 99, Carbon Dioxide 30.0, Anion Gap 5, BUN 16, Creatinine 1.32 H, Estim Creat Clear Calc 47.49, Est GFR (MDRD) Af Amer 52 L, Est GFR (MDRD) Non-Af 43 L, BUN/Creatinine Ratio 12.1, Glucose 76, Calcium 8.8 01/31/24 07:03: POC Glucose 69 L Micro: Microbiology 01/29/24 11:12 Tissue - Knee Gram Stain - Final 01/29/24 11:12 Tissue - Knee Wound Culture - Final Pseudomonas aeruginosa 01/29/24 11:12 Tissue - Knee Anaerobic Culture - Preliminary No growth in 48 hours. 01/29/24 10:57 Tissue - Knee Gram Stain - Final 01/29/24 10:57 Tissue - Knee Wound Culture - Final Pseudomonas aeruginosa 01/29/24 10:57 Tissue - Knee Anaerobic Culture - Preliminary No growth in 48 hours. 01/29/24 10:46 Tissue - Knee Gram Stain - Final 01/29/24 10:46 Tissue - Knee Wound Culture - Preliminary No growth-Final to follow 01/29/24 10:46 Tissue - Knee Anaerobic Culture - Preliminary No growth in 48 hours. 01/28/24 17:54 Blood Culture (Wb) - Anticubital Right Blood Culture - Preliminary No growth in 48 hours. 01/28/24 13:10 Fluid - Synovial (joint) Gram Stain - Final 01/28/24 13:10 Fluid - Synovial (joint) Body Fluid Culture - Final Pseudomonas aeruginosa 01/28/24 13:10 Fluid - Synovial (joint) Anaerobic Culture - Preliminary No growth in 48 hours. Imaging Radiology Impression Knee X-Ray 01/30/24 13:30 IMPRESSION: Stable total knee replacement. Anterior subcutaneous edema. Possible focal gas in the suprapatellar bursa. Electronically Signed: Ovidio Pham DO at 16:28 EDT ,
[2024-01-31 10:30] LABS: Bedside Glucose 145 mg/dL (74-106)
--- NOTE | 2024-01-31 10:30 | CASEMGMT ---
Discharge Planning Referral sent via [facility] to I. Li Heredia DC Planning Asst.
--- NOTE | 2024-01-31 12:09 | DS.PCM_ITS ---
Providers Date of Admission: 01/29/24 Primary Care Physician: APOLONIA Crowell Consultations 01/28/24 01:02 Consult: Orthopedics Routine Consulting Provider: Jaciel Jackson Reason for Consult: Intractable L knee pain, need aspiration EMERGENT Consult: No MD Notified: Yes Date Notified: 01/27/24 Time Notified: 23:06 Method of Notification: Text 01/30/24 15:27 Consult: Infectious Disease Routine Consulting Provider: Iker Ashton Reason for Consult: septic arthritis EMERGENT Consult: No Notified: Yes Date Notified: 01/30/24 Time Notified: 16:33 Method of Notification: Text Reason For Visit: INTRACTABLE LEFT KNEE PAIN Diagnosis Discharge Diagnosis (1) Left knee pain: Status: Acute Code(s): M25.562 - Pain in left knee Qualifiers: Chronicity: acute Qualified Code(s): M25.562 - Pain in left knee Plan Left knee septic arthritis * 01/27: knee aspiration was synovial WBCs of 51.5 * 01/28: I+D removal and reinsertion of polyethylene insert left total knee replacement. * Culture from the and showing pseudomonas * Abx with cefepime (DC vancomycin) * ID on consult. Recommeding 6 weeks of IV cefepime. * WBAT. Follow up with orthopaedics upon discharge. Chronic conditions: * Chronic hypoxic respiratory failure due to COPD Currently on 3 L of oxygen. Breathing treatments bronchodilators. * Type 2 diabetes mellitus with neuropathy: On Lantus 40 units bid. Insulin/scale. Accu-Cheks ACHS. On gabapentin. A1C is 8.1 * Hypertension: on metoprolol succinate 100/d * CKD stage III: Cr at baseline and is 1.39 today will monitor. * Anxiety depression: On citalopram and trazodone nightly. * Hypothyroidism: continue levothyroxine. TSH 5.93. Check Ft4. * Obesity class III: complicates care and recovery. DVT prophylaxis: SCDs Plan to discharge home with [facility] Medications at Discharge Home Medications ondansetron 4 mg disintegrating tablet 8 mg (2 x 4 mg) PO Q8H PRN PRN Nausea #20 tabs 06/20/22 aspirin 81 mg tablet,delayed release 81 mg PO DAILY heart 01/12/24 atorvastatin 20 mg tablet 20 mg PO DAILY cholesterol 01/12/24 citalopram 40 mg tablet 40 mg PO DAILY depression 01/12/24 gabapentin 800 mg tablet 800 mg PO TID nerve pain 01/12/24 insulin glargine 100 unit/mL (3 mL) subcutaneous pen (Lantus Solostar U-100 Insulin) 40 unit subcut BID 01/12/24 levothyroxine 75 mcg tablet 75 mcg PO DAILY thyroid 01/12/24 montelukast 10 mg tablet 10 mg PO QHS allergies 01/12/24 trazodone 100 mg tablet 100 mg PO QHS sleep 01/12/24 dextromethorphan-guaifenesin ER 60 mg-1,200 mg tab,extend release,12hr (Mucinex DM) 1 tab PO Q12H 7 days #14 tabs 01/14/24 furosemide 40 mg tablet 40 mg PO DAILY 1 month #30 tabs 01/14/24 metoprolol succinate 100 mg tablet,extended release 24 hr 100 mg PO DAILY 1 month #30 tabs 01/14/24 sennosides 8.6 mg-docusate sodium 50 mg tablet (Stimulant Laxative Plus) 2 tab PO BID PRN PRN Constipation #0 tabs 01/14/24 amlodipine 5 mg tablet 5 mg PO DAILY 01/27/24 cyanocobalamin (vitamin B-12) 1,000 mcg tablet 1,000 mcg PO QODAY 01/27/24 duloxetine 20 mg capsule,delayed release 20 mg PO BID 01/27/24 omeprazole 40 mg capsule,delayed release 40 mg PO 01/27/24 acetaminophen 325 mg tablet 1,000 mg (3.0769 x 325 mg) PO Q8H PRN PRN Fever, pain 1-10/10 #0 tabs 01/31/24 cefepime 1 gram solution for injection 2 g IV Q12 40 days #80 ea 01/31/24 oxycodone 5 mg tablet 5 mg PO Q4H PRN PRN Pain Score 4-10 3 days #12 tabs 01/31/24 Hospital Course Operations - (Left Knee irrigation and debridement, removal and reinsertion of polyethylene insert Left total knee replacement revision of 1 component: ) Summary of Care Provided Minutes Spent on Discharge: 32 Hospital Course: Patient presents with septic arthritis of her left knee. Patient had aspiration on the that came back showing Pseudomonas. Patient underwent left knee I&D with removal and reinsertion of polyethylene insert. Cultures came back showing Pseudomonas. Patient was seen in consultation by infectious disease who recommends 6 weeks of IV cefepime. Patient did not want to go to a residential facility but would rather go home with home care. Weight / BMI Weight Weight: 106.7 kg Body Mass Index (BMI) 43.0 ABG / Lab / Microbiology Data 01/31/24 06:56 01/31/24 06:56 Laboratory: Laboratory Results - last 24 hr 01/28/24 13:10: Fl Crystal Path Review Reviewed 01/30/24 16:11: POC Glucose 177 H 01/30/24 17:47: Random Vancomycin 17.9 H 01/30/24 23:59: POC Glucose 163 H 01/31/24 04:05: POC Glucose 95 01/31/24 06:56: WBC 9.1, RBC 3.67 L, Hgb 10.2 L, Hct 32.0 L, MCV 87.2, MCH 27.8, MCHC 31.9 L, RDW Std Deviation 46.8 H, RDW Coeff of Sidra 14.8 H, Plt Count 176, MPV 10.5, Immature Gran % (Auto) 0.900, Neut % (Auto) 69.5, Lymph % (Auto) 20.2, [place] % (Auto) 8.2, Eos % (Auto) 1.0, Baso % (Auto) 0.2, Absolute Neuts (auto) 6.3, Absolute Lymphs (auto) 1.84, Nucleated RBC % 0, Sodium 134 L, Potassium 4.1, Chloride 99, Carbon Dioxide 30.0, Anion Gap 5, BUN 16, Creatinine 1.32 H, Estim Creat Clear Calc 47.49, Est GFR (MDRD) Af Amer 52 L, Est GFR (MDRD) Non-Af 43 L, BUN/Creatinine Ratio 12.1, Glucose 76, Calcium 8.8 01/31/24 07:03: POC Glucose 69 L 01/31/24 10:02: POC Glucose 145 H Microbiology: Microbiology 01/29/24 11:12 Tissue - Knee Gram Stain - Final 01/29/24 11:12 Tissue - Knee Wound Culture - Final Pseudomonas aeruginosa 01/29/24 11:12 Tissue - Knee Anaerobic Culture - Preliminary No growth in 48 hours. 01/29/24 10:57 Tissue - Knee Gram Stain - Final 01/29/24 10:57 Tissue - Knee Wound Culture - Final Pseudomonas aeruginosa 01/29/24 10:57 Tissue - Knee Anaerobic Culture - Preliminary No growth in 48 hours. 01/29/24 10:46 Tissue - Knee Gram Stain - Final 01/29/24 10:46 Tissue - Knee Wound Culture - Preliminary No growth-Final to follow 01/29/24 10:46 Tissue - Knee Anaerobic Culture - Preliminary No growth in 48 hours. 01/28/24 17:54 Blood Culture (Wb) - Anticubital Right Blood Culture - Preliminary No growth in 48 hours. 01/28/24 13:10 Fluid - Synovial (joint) Gram Stain - Final 01/28/24 13:10 Fluid - Synovial (joint) Body Fluid Culture - Final Pseudomonas aeruginosa 01/28/24 13:10 Fluid - Synovial (joint) Anaerobic Culture - Preliminary No growth in 48 hours. Radiography Diagnostic Testing: Radiology Impression Knee X-Ray 01/30/24 13:30 IMPRESSION: Stable total knee replacement. Anterior subcutaneous edema. Possible focal gas in the suprapatellar bursa. Electronically Signed: Ovidio Pham DO at 16:28 EDT Reading Location ID and State: [address] [place] [address] Tel [phone], Service support , D/C Instructions Discharge Diet: No restrictions Weight Bearing Status: Weight bearing as tolerated Keep extremity elevated above heart level: Left Leg Meaningful Use Info Meaningful Use Meaningful Use Diagnoses (Choose all that apply): None applicable Ischemic Stroke Statin Dosing Therapy Reference: STATIN DOSE THERAPY REFERENCE: * Patients > 75 years receive moderate or high dose statin therapy. * Patients 75 years or YOUNGER should receive HIGH intensity statin dose unless contraindicated. You will be required to document reason for non-treatment if statin daily dose does not meet guidelines. HIGH DOSE STATIN THERAPY DAILY Atorvastatin > than or = to 40 mg Rosuvastatin > than or = to 20 mg Amlodipine + Atorvastatin > than or = to 2.5/40 mg Ezetimibe + Simvastatin 10/80 mg Simvastatin 80mg Discharge Plan Admission Admit Date/Time: 01/29/24 14:12 Primary Reason for Your Visit: Septic arthritis Attending Provider: Gonzalo Harper Primary Care Provider: Deepa Hunt Consulting Providers: Jaciel Jackson; Meg Rojas; Yany Thrasher; Iker Ashton Instructions Additional Instructions / Restrictions: The follow-up with your orthopedic surgeon who did your original surgery for follow-up. If you have increased pain, redness of your knee, notify your physician or return to the emergency room. Discharge Orders/Prescriptions Prescriptions: New cefepime 1 gram Recon Soln 2 g IV Q12 40 Days Qty: 80 0RF Rx Instructions: stop date 03/11/24. Dx: L knee PJI. Weekly bmp, cbc, and esr. Fax to [phone]. Routine picc care per protocol. acetaminophen 325 mg Tablet 1,000 mg PO Q8H PRN PRN (Reason: Fever, pain 1-10/10) Qty: 0 0RF oxycodone 5 mg Tablet 5 mg PO Q4H PRN PRN (Reason: Pain Score 4-10) 3 Days Qty: 12 0RF Continued ondansetron 4 mg tablet,disintegrating 8 mg PO Q8H PRN PRN (Reason: Nausea) Qty: 20 0RF atorvastatin 20 mg tablet 20 mg PO DAILY citalopram 40 mg tablet 40 mg PO DAILY aspirin 81 mg tablet,delayed release (DR/EC) 81 mg PO DAILY gabapentin 800 mg tablet 800 mg PO TID insulin glargine [Lantus Solostar U-100 Insulin] 100 unit/mL (3 mL) insulin pen 40 unit subcut BID levothyroxine 75 mcg tablet 75 mcg PO DAILY trazodone 100 mg tablet 100 mg PO QHS montelukast 10 mg tablet 10 mg PO QHS sennosides-docusate sodium [Stimulant Laxative Plus] 8.6-50 mg Tablet 2 tab PO BID PRN PRN (Reason: Constipation) Qty: 0 0RF metoprolol succinate 100 mg tablet extended release 24 hr 100 mg PO DAILY 30 Days Qty: 30 2RF Rx Instructions: Hold for heart less than 50 or systolic blood pressure less than 100 mmHg. furosemide 40 mg tablet 40 mg PO DAILY 30 Days Qty: 30 2RF Rx Instructions: Take extra 40 mg dose at 5 PM for increased leg swelling or weight gain 5 pounds in 1 week. dextromethorphan-guaifenesin [Mucinex DM] 60-1,200 mg tablet extended release 12 hr 1 tab PO Q12H 7 Days Qty: 14 0RF cyanocobalamin (vitamin B-12) 1,000 mcg tablet 1,000 mcg PO QODAY amlodipine 5 mg tablet 5 mg PO DAILY duloxetine 20 mg capsule,delayed release(DR/EC) 20 mg PO BID Discontinued prednisone 20 mg tablet 40 mg PO DAILY 5 Days Qty: 10 0RF No Action omeprazole 40 mg capsule,delayed release(DR/EC) 40 mg PO Referrals / Follow Up: Deepa Hunt PA [Primary Care Provider] - Within 2 Weeks Disposition Disposition (needs filled in before D/C Order can be placed): Home Health Service Charges/Coding Visit Charges Inpatient E&M: 09454 Disch Hosp >30min
[2024-01-31] MEDS: Cefepime HCl 2 GM in 0.9% Normal Saline (100mL MB+) 100 ML IV ×2 (12:53→23:11)
--- NOTE | 2024-01-31 13:46 | PHA.DC.MC.R ---
Pharmacy [facility] Pharm[facility] Service has performed discharge medication reconciliation and counseling for this patient. 1. CEFEPIME 2GM IV Q12 X 40 DAYS 2. OXYCODONE 5MG PO Q4H PRN PAIN The patient's discharge medication list was reviewed for discrepancies and discrepancies were resolved. The patient was counseled on the following discharge medications and changes in medications for homegoing were reviewed. The Reason for Use, instructions for use, and potential side effects were reviewed for all new medications. The patient's questions regarding all of their medications were answered. The patient was able to verbally demonstrate an understanding of their discharge medications. Medications at Discharge Home Medications ondansetron 4 mg disintegrating tablet 8 mg (2 x 4 mg) PO Q8H PRN PRN Nausea #20 tabs 06/20/22 aspirin 81 mg tablet,delayed release 81 mg PO DAILY heart 01/12/24 atorvastatin 20 mg tablet 20 mg PO DAILY cholesterol 01/12/24 citalopram 40 mg tablet 40 mg PO DAILY depression 01/12/24 gabapentin 800 mg tablet 800 mg PO TID nerve pain 01/12/24 insulin glargine 100 unit/mL (3 mL) subcutaneous pen (Lantus Solostar U-100 Insulin) 40 unit subcut BID 01/12/24 levothyroxine 75 mcg tablet 75 mcg PO DAILY thyroid 01/12/24 montelukast 10 mg tablet 10 mg PO QHS allergies 01/12/24 trazodone 100 mg tablet 100 mg PO QHS sleep 01/12/24 dextromethorphan-guaifenesin ER 60 mg-1,200 mg tab,extend release,12hr (Mucinex DM) 1 tab PO Q12H 7 days #14 tabs 01/14/24 furosemide 40 mg tablet 40 mg PO DAILY 1 month #30 tabs 01/14/24 metoprolol succinate 100 mg tablet,extended release 24 hr 100 mg PO DAILY 1 month #30 tabs 01/14/24 sennosides 8.6 mg-docusate sodium 50 mg tablet (Stimulant Laxative Plus) 2 tab PO BID PRN PRN Constipation #0 tabs 01/14/24 amlodipine 5 mg tablet 5 mg PO DAILY 01/27/24 cyanocobalamin (vitamin B-12) 1,000 mcg tablet 1,000 mcg PO QODAY 01/27/24 duloxetine 20 mg capsule,delayed release 20 mg PO BID 01/27/24 omeprazole 40 mg capsule,delayed release 40 mg PO 01/27/24 acetaminophen 325 mg tablet 1,000 mg (3.0769 x 325 mg) PO Q8H PRN PRN Fever, pain 1-01/18 #0 tabs 01/31/24 cefepime 1 gram solution for injection 2 g IV Q12 40 days #80 ea 01/31/24 oxycodone 5 mg tablet 5 mg PO Q4H PRN PRN Pain Score 4-10 3 days #12 tabs 01/31/24
[2024-01-31] MEDS: 0.9 % NaCl (Sterile) Posiflush 10 mL IV (14:08)
--- NOTE | 2024-01-31 15:19 | CASEMGMT ---
Addendum entered by Lora Grimes 01/31/24 16:55: ZEESHAN confirmed pharmacy. LEONA Carrion Addendum entered by Lora Grimes 01/31/24 16:54: ZEESHAN spoke with pt and pt sister about medicaid. SW provided information and education on medicaid & recommended pt and pt sister follow up to determine eligibility. LEONA Carrion Original Note: Social Work- ZEESHAN met with pt, as RNCM reports that pt cannot afford IV medications. Pt did not recall conversation with RNCM. SW again provided information on cost of medications; pt states that she cannot afford. Medications are $120/month and pt reports that she makes $900/month. SW provided education on the importance of medication and discussed options for assistance. SW discussed that at a SNF, medications would be covered. Pt is adamant that she will not go anywhere but home. When asked what pt believes will happen if she does not have medication, pt was unable to draw a conclusion. When SW question why pt was here, she reported my knee. SW asked pt if she understood that her knee was infected and she was at a hospital for medication to help with the infection. Pt did not verbalize understanding. SW asked pt if she would be able to utilize community resources. Pt reported that her sister would be able to call and help her link with resources. Pt reports that her sister is coming in anytime to pick her up for d/c. Pt is not being d/c today d/t C being unable to start until . Pt is observed by ZEESHAN to have confusion and not be able to recall short-term conversation. ZEESHAN provided printed resources for [employer], [facility] [employer], and prescription assistance resources. SW spoke with pt sister who states that she is a [employer] and feels comfortable caring for IV. Sister states that she does not drive at night and would like d/c by 3-4pm tomorrow. There were concerns from pt and pt sister in regards to not d/c today and questions regarding medications. SW provided empathetic listening, support, and education. Pt and sister are agreeable to d/c plan and starting HHC . LEONA Carrion
[2024-01-31 16:14] LABS: Bedside Glucose 148 mg/dL (74-106)
[2024-01-31 22:40] LABS: Bedside Glucose 154 mg/dL (74-106)
[2024-01-31] MEDS: Insulin Lispro 100 UNIT/ML INSULN.PEN SC ×2 (23:13)
[2024-01-31] MEDS: Montelukast 10 MG Tablet PO (23:18)
[2024-01-31] MEDS: traZODone 100 MG Tablet PO (23:18)
[2024-01-31] MEDS: Atorvastatin Calcium 20 MG Tablet PO (23:18)
[2024-02-01 00:06] LABS: Bedside Glucose 156 mg/dL (74-106)
[2024-02-01 04:00] VITALS: BP 142/51; PULSE 60; RESP 18; TEMP 37.2; O2SAT 95
[2024-02-01 04:08] VITALS: BMI 44.6
[2024-02-01] MEDS: Nystatin Powder 15gm Bottle 1 APPLIC TOPICAL ×2 (06:10→12:22)
[2024-02-01] MEDS: Menthol/Lanolin/Calamine/Znox 113 GM Tube 1 APPLIC TOPICAL (06:10)
[2024-02-01] MEDS: Levothyroxine 75 MCG Tablet PO (06:10)
[2024-02-01] MEDS: Gabapentin 800 MG Tablet PO (06:10)
[2024-02-01 06:50] LABS: Bedside Glucose 113 mg/dL (74-106)
[2024-02-01 07:16] LABS: Absolute Lymphocyte Count 1.46 X10^3/uL (0.83-4.51); Absolute Neutrophil Count 4.4 X10^3/uL (2.0-7.7); Basophil# 0.02 X10^3/uL; Basophil% 0.3 % (0-1); Eosinophil# 0.07 X10^3/uL; Eosinophils% 1.1 % (0-5); Hematocrit 28.8 % (37-47); Hemoglobin 9.5 g/dL (12.0-15.0); Lymphocyte # 1.46 X10^3/ul (0.83-4.51); Mean Corpuscular Hgb 28.4 pg (27.0-32.0); Mean Platelet Vol. 11.2 fl (6.2-12.0); Monocyte# 0.58 X10^3/uL; Monocyte% 8.7 % (0-10); NRBC Flagged by Analyzer 0 % (0-5); Neutrophil # 4.43 X10^3/uL (2.7-7.7); Neutrophil % 66.7 % (47-70); Platelet Count 170 K/mm3 (150-450); RBC Distribution Width CV 14.7 % (11.6-14.6); Red Blood Count 3.35 M/mm3 (4.2-5.4); White Blood Count 6.6 K/mm3 (4.4-11.0)
[2024-02-01 07:39] LABS: Anion Gap 5 (5-15); BUN 16 mg/dL (7-18); BUN/Creat Ratio 12.7 RATIO (10-20); Calcium,Total 8.7 mg/dL (8.5-10.1); Chloride 99 mmol/L (98-107); Creatinine, Serum 1.26 mg/dL (0.55-1.02); EST Glomerular Filtration Rate 45 mL/min (>60); Est Glom Filt Rate - Afr Amer 54 mL/min (>60); Estimated Creatinine Clearance 50.82 ml/min; Glucose 109 mg/dL (74-106); Potassium 4.2 mmol/L (3.5-5.1); Sodium Level 133 mmol/L (136-145)
[2024-02-01 08:10] VITALS: O2SAT 94
--- NOTE | 2024-02-01 08:46 | PN.HOSP_ITS ---
Reason for Visit Reason for Visit: Diagnoses Pyogenic arthritis, unspecified (01/29/24) Pain in left knee (01/29/24) Difficulty in walking, not elsewhere classified (01/29/24) Infection and inflammatory reaction due to other internal joint prosthesis, initial encounter (01/29/24) Presence of left artificial knee joint (01/29/24) Presence of unspecified artificial knee joint (01/29/24) Subjective Subjective left knee feeling better. Does not want to stay for evening dose of abx, but rather go home. Objective Data Objective Data Vital Signs: Vital Signs Temp Pulse Resp BP Pulse Ox O2 Del Method O2 Flow Rate 37.2 C 60 18 142/51 H 94 Room Air 2 02/01/24 04:00 02/01/24 04:00 02/01/24 04:00 02/01/24 04:00 02/01/24 08:10 02/01/24 08:10 01/31/24 04:00 Oxygen Flow Rate (L/min) 2 Oxygen Delivery Method Room Air Weight: 110.6 kg Body Mass Index (BMI) 44.6 Intake & Output: Intake and Output for Last 24 Hours 01/30/24 01/31/24 02/01/24 23:59 23:59 23:59 Intake Total 735 / 935 1025 / 1025 100 / 100 Output Total 450 / 750 700 / 700 500 / 500 Balance 285 / 185 325 / 325 -400 / -400 Lab / Micro Data 02/01/24 06:20 02/01/24 06:20 Labs: Laboratory Results - last 24 hr 01/31/24 10:02: POC Glucose 145 H 01/31/24 15:57: POC Glucose 148 H 01/31/24 22:11: POC Glucose 154 H 01/31/24 23:49: POC Glucose 156 H 02/01/24 06:20: WBC 6.6, RBC 3.35 L, Hgb 9.5 L, Hct 28.8 L, MCV 86.0, MCH 28.4, MCHC 33.0, RDW Std Deviation 46.0 H, RDW Coeff of Sidra 14.7 H, Plt Count 170, MPV 11.2, Immature Gran % (Auto) 1.200 H, Neut % (Auto) 66.7, Lymph % (Auto) 22.0, [place] % (Auto) 8.7, Eos % (Auto) 1.1, Baso % (Auto) 0.3, Absolute Neuts (auto) 4.4, Absolute Lymphs (auto) 1.46, Nucleated RBC % 0, Sodium 133 L, Potassium 4.2, Chloride 99, Carbon Dioxide 29.0, Anion Gap 5, BUN 16, Creatinine 1.26 H, Estim Creat Clear Calc 50.82, Est GFR (MDRD) Af Amer 54 L, Est GFR (MDRD) Non-Af 45 L, BUN/Creatinine Ratio 12.7, Glucose 109 H, Calcium 8.7 02/01/24 06:30: POC Glucose 113 H Micro: Microbiology 01/29/24 10:46 Tissue - Knee Gram Stain - Final 01/29/24 10:46 Tissue - Knee Wound Culture - Final No growth aerobically. 01/29/24 10:46 Tissue - Knee Anaerobic Culture - Preliminary No growth in 48 hours. 01/29/24 11:12 Tissue - Knee Gram Stain - Final 01/29/24 11:12 Tissue - Knee Wound Culture - Final Pseudomonas aeruginosa 01/29/24 11:12 Tissue - Knee Anaerobic Culture - Preliminary No growth in 48 hours. 01/29/24 10:57 Tissue - Knee Gram Stain - Final 01/29/24 10:57 Tissue - Knee Wound Culture - Final Pseudomonas aeruginosa 01/29/24 10:57 Tissue - Knee Anaerobic Culture - Preliminary No growth in 48 hours. 01/28/24 17:54 Blood Culture (Wb) - Anticubital Right Blood Culture - Preliminary No growth in 48 hours. 01/28/24 13:10 Fluid - Synovial (joint) Gram Stain - Final 01/28/24 13:10 Fluid - Synovial (joint) Body Fluid Culture - Final Pseudomonas aeruginosa 01/28/24 13:10 Fluid - Synovial (joint) Anaerobic Culture - Preliminary No growth in 48 hours. Physical Exam Const alert and no apparent distress HEENT head/scalp atraumatic Resp normal respiratory effort and no retractions Extremity Extremity Narrative: adhesive bandage over left knee. Assessment & Plan Assessment/Plan (1) Left knee pain: QUALIFIERS: Chronicity: acute Qualified Code(s): M25.562 - Pain in left knee PLAN: Plan Left knee septic arthritis * 01/27: knee aspiration was synovial WBCs of 51.5 * 01/28: I+D removal and reinsertion of polyethylene insert left total knee replacement. * Culture from the and showing pseudomonas * Abx with cefepime (DC vancomycin) * ID on consult. Recommeding 6 weeks of IV cefepime. * WBAT. Follow up with orthopaedics upon discharge. Chronic conditions: * Chronic hypoxic respiratory failure due to COPD Currently on 3 L of oxygen. Breathing treatments bronchodilators. * Type 2 diabetes mellitus with neuropathy: On Lantus 40 units bid. Insulin/scale. Accu-Cheks ACHS. On gabapentin. A1C is 8.1 * Hypertension: on metoprolol succinate 100/d * CKD stage III: Cr at baseline and is 1.39 today will monitor. * Anxiety depression: On citalopram and trazodone nightly. * Hypothyroidism: continue levothyroxine. TSH 5.93. Check Ft4. * Obesity class III: complicates care and recovery. DVT prophylaxis: SCDs Plan to discharge home with C. I recommend the patient stay another day so that she can have home care starting tomorrow as the cefepime is twice daily. She said that she does not want to wait and wants to go home today. She understands that so my recommendation because of the infection. Charges/Coding Visit Charges Inpatient E&M: 12919 Disch Hosp
--- NOTE | 2024-02-01 09:57 | CASEMGMT ---
Addendum entered by Thomas Gomez 02/01/24 10:44: [facility] confirms that they will be delivering the medications by the end of the day today. Original Note: Dr. Harper states that the pt is refusing the evening dose of the ATB (Cefepime) and states that she is going to be going home once her friend gets here at 3. Dr. Harper states that he is OK with the pt getting the morning dose of the ATB and missing the evening dose. RN CM to pt room at this time to discuss DC planning. This RN CM attempted to coordinate the pt sister coming into the hospital when therapy is to work with the pt. However, the pt states that her sister works today and will not be able to come in. Pt states that her best friend will be picking her up from the hospital today. Pt is currently sitting up in the chair. Pt states that she feels safe going home today. Update sent to [facility] via [employer] to see if [facility] can still deliver the pt medication by the end of the day. TC to [facility] and [facility] states that they are still able to start care tomorrow morning and denies further needs. Pt may benefit from SW being added onto the [facility] order. [facility] states that they have SW available. CM to follow.
[2024-02-01 10:25] VITALS: BP 146/52; PULSE 61; RESP 18; TEMP 36.6; O2SAT 97
[2024-02-01] MEDS: Arthritis Pain Compound 60 CLICK TUBE TOPICAL (10:29)
[2024-02-01] MEDS: Insulin Glargine-YFGN 100 UNIT/ML Pen 40 UNIT SC (10:30)
[2024-02-01] MEDS: amLODIPine 5 MG Tablet PO (10:35)
[2024-02-01] MEDS: Cefepime HCl 2 GM in 0.9% Normal Saline (100mL MB+) 100 ML IV (10:35)
[2024-02-01 10:36] VITALS: PULSE 61
[2024-02-01] MEDS: Furosemide 40 MG Tablet PO (10:36)
[2024-02-01] MEDS: Pantoprazole Sodium 40 MG Tablet PO (10:36)
[2024-02-01] MEDS: Metoprolol(XL)Succ 100 MG Tablet PO (10:36)
[2024-02-01] MEDS: Aspirin E.C. 81 MG Tablet PO (10:36)
[2024-02-01] MEDS: Insulin Lispro 100 UNIT/ML INSULN.PEN SC (12:21)
[2024-02-01 12:42] LABS: Bedside Glucose 169 mg/dL (74-106)
--- NOTE | 2024-02-01 13:32 | PCM.PN.ID ---
Physical Exam Narrative Feeling better, knee improving slowly, no fever, no n/v/d. Const alert and no apparent distress General Appearance: cooperative Resp normal air movement and clear to auscultation bilaterally Cardio regular rate and regular rhythm GI soft to palpation, non-tender and non-distended Skin no rashes or lesions noted Skin Narrative: L knee bandage in place ID ID: Route of nutrition/ use of supplements: [] Nutritional Intake: [] IV Site: [] Reese Catheter: [] Assessment & Plan Assessment/Plan (1) Infection of total knee replacement: QUALIFIERS: Encounter type: initial encounter Qualified Code(s): T84.59XA - Infection and inflammatory reaction due to other internal joint prosthesis, initial encounter; Z96.659 - Presence of unspecified artificial knee joint PLAN: H/o CKD. Cxs (+) PsA. Taken to OR 01/29/[address] Jackson for I&D and poly exchange. Cont cefepime. Ordered picc and 6 weeks iv cefepime, stop date 03/11/24, then plan will be long course suppressive po cipro. EKG here with QTC less than 450. ID followup in 2-3 weeks. Will follow
[2024-02-01 14:11] VITALS: BP 148/66; PULSE 60; RESP 18; TEMP 36.6; O2SAT 98
== END 2024-02-01 14:45 | disposition home health service (06) | DRG 464 ==
LOC: ED 22:20 → MS3 23:07
PROVIDERS: Anesthesiology; Orthopaedic Surgery Orthopaedic Surgery of the Spine; Student in an Organized Health Care Education/Training Program; Admitting Provider Family Medicine; Emergency Provider Emergency Medicine; PCP Physician Assistant Medical
PROC: 0SPD0JZ Removal of Synthetic Substitute from Left Knee Joint, Open Approach (ICD-10-PCS; CPT 27301; principal; 2024-01-29 09:00)
DX: M00.862 Arthritis due to other bacteria, left knee (principal); T84.54XA Infection and inflammatory reaction due to internal left knee prosthesis, initial encounter; I50.32 Chronic diastolic (congestive) heart failure; Z68.41 Body mass index [BMI] 40.0-44.9, adult; I13.0 Hypertensive heart and chronic kidney disease with heart failure and stage 1 through stage 4 chronic kidney disease, or unspecified chronic kidney disease; J96.11 Chronic respiratory failure with hypoxia; D69.6 Thrombocytopenia, unspecified; R62.7 Adult failure to thrive; E11.22 Type 2 diabetes mellitus with diabetic chronic kidney disease; N18.30 Chronic kidney disease, stage 3 unspecified; J44.9 Chronic obstructive pulmonary disease, unspecified; E03.9 Hypothyroidism, unspecified; F32.A Depression, unspecified; E11.40 Type 2 diabetes mellitus with diabetic neuropathy, unspecified; F17.210 Nicotine dependence, cigarettes, uncomplicated; E66.01 Morbid (severe) obesity due to excess calories; Z79.4 Long term (current) use of insulin; E78.5 Hyperlipidemia, unspecified; R26.2 Difficulty in walking, not elsewhere classified; F41.9 Anxiety disorder, unspecified; Z79.52 Long term (current) use of systemic steroids; Z79.82 Long term (current) use of aspirin; R53.81 Other malaise; E66.813 Obesity, class 3; Z79.890 Hormone replacement therapy
CPT/HCPCS: 36415; 36569; 73560; 73564; 80048; 80053; 80202; 82945; 82962; 83036; 84145; 84157; 84443; 85025; 85610; 85652; 85730; 86140; 87015; 87040; 87070; 87075; 87077; 87102; 87116; 87176; 87184; 87186; 87205; 87206; 89050; 89051; 89060; 93005; 93971; 94640; 94668; 97110; 97162; 97166; 97530; 99252; 99285; C1776; J7040; J7050; J7120; A4216; G0463; J2405

== ENCOUNTER 2024-02-08 10:10 | Outpatient (RCR) | payer MEDICARE, SELFPAY ==
[2024-02-08 10:41] LABS: Anion Gap 3 (5-15); BUN 14 mg/dL (7-18); BUN/Creat Ratio 10.7 RATIO (10-20); Calcium,Total 7.9 mg/dL (8.5-10.1); Chloride 106 mmol/L (98-107); Creatinine, Serum 1.31 mg/dL (0.55-1.02); EST Glomerular Filtration Rate 43 mL/min (>60); Est Glom Filt Rate - Afr Amer 52 mL/min (>60); Glucose 142 mg/dL (74-106); Potassium 4.3 mmol/L (3.5-5.1); Sodium Level 137 mmol/L (136-145)
[2024-02-08 10:54] LABS: Hematocrit 32.2 % (37-47); Hemoglobin 10.2 g/dL (12.0-15.0); Mean Corp Hgb Conc 31.7 g/dL (32-36); Mean Corpuscular Hgb 27.9 pg (27.0-32.0); Mean Platelet Vol. 11.5 fl (6.2-12.0); Platelet Count 210 K/mm3 (150-450); RBC Distribution Width CV 14.9 % (11.6-14.6); RBC Distribution Width SD 48.3 fl (35.1-43.9); Red Blood Count 3.66 M/mm3 (4.2-5.4)
[2024-02-08 11:12] LABS: Erythrocyte Sedimentation Rate 42 mm/hr (0-30)
== END 2024-02-08 18:00 | disposition home or self-care (01) ==
LOC: HHLAB 10:10
PROVIDERS: PCP Physician Assistant Medical
DX: T84.59XA Infection and inflammatory reaction due to other internal joint prosthesis, initial encounter (principal)
CPT/HCPCS: 80048; 85027; 85652

== ENCOUNTER 2024-02-16 15:55 | Inpatient (IN) | payer MEDICARE, SELFPAY ==
[2024-02-16] VITALS (11 sets, daily range): BP systolic 148–192; BP diastolic 53–105; PULSE 85–95; RESP 14–28; TEMP 36.6–36.8; O2SAT 94–99; BMI 42.8; BMI 41.7
--- NOTE | 2024-02-16 16:05 | RAD_ITS ---
INDICATION: dyspnea EXAMINATION/TECHNIQUE: X-RAY - XR Chest 1 View COMPARISON: FINDINGS: LINES/DEVICES: Right PICC line with tip at the proximal SVC. LUNGS: No consolidation, edema or effusion. No pneumothorax. MEDIASTINUM AND CARDIOVASCULAR STRUCTURES: Cardiac silhouette not enlarged. Central airways and mediastinal contour are unremarkable. BONES AND SOFT TISSUES: Degenerative vertebral changes. RAD/Chest 1 View (Portable) IMPRESSION: No radiographic evidence of acute cardiopulmonary disease. Electronically Signed: Ovidio Pham DO at 16:36 EST ,
--- NOTE | 2024-02-16 16:06 | EKG12_ITS ---
Test Reason : Blood Pressure : */* mmHG Vent. Rate : 81 BPM Atrial Rate : 81 BPM P-R Int : 142 ms QRS Dur : 60 ms QT Int : 390 ms P-R-T Axes : 44 16 44 degrees QTcB Int : 453 ms Normal sinus rhythm Low voltage QRS Borderline ECG Confirmed by FREDDY RAI MD ([id number]), editor producer ODILON CASTELLANO ([id number]) on 02/20/2024 9:59:38 AM Referred By: Confirmed By: FREDDY RAI MD
--- NOTE | 2024-02-16 16:25 | EDS_ITS ---
<Statement entered by Chris Mendez DO - 02/16/24 20:35> Patient was seen and examined with physician hospital clinic assistant Nicole All components of the history and physical confirmed and agreed. History of present illness and physical exam: Patient is a 68-year-old female with past medical history hypertension, hyperlipidemia, type 2 diabetes, COPD who presented to the emerged part with a chief complaint of chills, shortness of breath and not feeling well over the past several days. She states that she has been feeling consistently short of breath. She states that she wears 2 L oxygen at home and notes that she had been turning her oxygen up at home for comfort. According to EMS she was noted be hypoxic at 88%. She did receive a breathing treatment prior to arrival. Review of systems: Agree with above Physical exam: Agree with above MDM Patient is a 68-year-old female who presented to the emergency department with a chief complaint of cough, chills and increasing oxygen requirement at home secondary to comfort. Patient will have a workup performed here on the differential diagnose includes Melamin to pneumonia, COPD exacerbation, ACS, CHF. Once workup is obtained reviewed she will be reevaluated. Patient will be given Solu-Medrol here in the emergency department. Patient CBC reviewed and showed no evidence leukocytosis white blood count normal at 7.7, hemoglobin stable 10.9, plate count was noted be 114. Patient sodium was 133, potassium normal at 4.9, creatinine was 1.50. Patient's AST and ALT were 19 and 12 respectively. Patient proBNP elevated to 198. Patient's troponin normal at 9 and her EKG was independently interpreted by myself as noted above. Patient's glucose was noted be elevated here at 401 and she was given IV fluids for this and 10 units of subcutaneous insulin. Patient's urinalysis showed negative leukocyte esterase negative nitrates 5-10 white blood cells however she is currently on IV cefepime for a postoperative infection of her left knee after total knee arthroplasty she has been on IV antibiotics now for few weeks and has several weeks remaining. Patient is agitated and confused and continuously tries to get up out of bed not at her baseline. Will add a CT head and brain without contrast. CT head and brain was reviewed showed no acute intracranial processes. Patient's chest x-ray was reviewed as well by myself and by radiology showed no acute cardiopulmonary processes. At this point time do believe the patient will warrant admission to the hospital as she was hypoxic at 88% for COPD exacerbation and does have encephalopathy. Patient case was discussed with hospitalist by physician hospital clinic assistant who accept patient for admission. Patient was notified she is agreeable this plan all question concerns answered. Plan: Final impression: Encephalopathy Acute on chronic hypoxic respiratory failure COPD exacerbation Disposition: Patient will be admitted to the hospital Supervising attending attestation: Chris PAREKH History of Present Illness Chief Complaint: Shortness of Breath Narrative Narrative: 68-year-old female with past medical history of HTN, HLD, DM2, COPD presents with chills, shortness of breath and cough over the last few days. She states she has been feeling consistently short of breath. She wears 2 L O2 at baseline and was not dropping her sats but was turning it up for comfort. She denies chest pain. No fever. No vomiting or diarrhea. She called the paramedics today since she was not improving. [facility] Medical History BMI greater than 40 CHF (congestive heart failure) (HFpEF) heart failure with preserved ejection fraction Chronic hypoxic respiratory failure, on home oxygen therapy COPD (chronic obstructive pulmonary disease) Diabetes mellitus, type 2 Thrombocytopenia Allergic rhinitis Hypothyroidism Anxiety and depression Morbid obesity CKD (chronic kidney disease), stage III Hyperlipidemia Hypertension Home Medications ?Medication ?Instructions ?Recorded ?Last Taken ?Type aspirin 81 mg tablet,delayed 81 mg PO DAILY HEART HEALTH 01/12/24 01/27/24 His tory release atorvastatin 20 mg tablet 20 mg PO DAILY CHOLESTEROL 01/12/24 01/27/24 History citalopram 40 mg tablet 40 mg PO DAILY DEPRESSION 01/12/24 01/27/24 History gabapentin 800 mg tablet 800 mg PO TID NERVE PAIN 01/12/24 01/27/24 History insulin glargine 100 unit/mL (3 40 unit subcut BID DIABETES 01/12/24 01/27/24 History mL) subcutaneous pen (Lantus Solostar U-100 Insulin) levothyroxine 75 mcg tablet 75 mcg PO DAILY THYROID 01/12/24 01/27/24 History montelukast 10 mg tablet 10 mg PO QHS COPD 01/12/24 01/27/24 History trazodone 100 mg tablet 100 mg PO QHS DEPRESSION 01/12/24 01/27/24 History furosemide 40 mg tablet 40 mg PO DAILY SWELLING/WEIGHT 01/14/24 01/27/24 Rx GAIN 1 month #30 tabs metoprolol succinate 100 mg 100 mg PO DAILY BLOOD PRESSURE 1 01/14/24 01/27/24 Rx tablet,extended release 24 hr month #30 tabs amlodipine 5 mg tablet 5 mg PO DAILY BLOOD PRESSURE 01/27/24 01/27/24 History cyanocobalamin (vitamin B-12) 1,000 mcg PO QODAY SUPPLEMENT 01/27/24 01/27/24 History 1,000 mcg tablet duloxetine 20 mg capsule,delayed 20 mg PO BID DEPRESSION 01/27/24 01/27/24 History release omeprazole 40 mg capsule,delayed 40 mg PO DAILY GERD 01/27/24 01/26/24 History release dextromethorphan-guaifenesin ER 60 1 tab PO Q12H PRN 02/16/24 Unknown History mg-1,200 mg tab,extend ALLERGIES/CONGESTION release,12hr (Mucinex DM) ondansetron 4 mg disintegrating 8 mg PO Q8H PRN NAUSEA 02/16/24 Unknown History tablet oxycodone 5 mg tablet 5 mg PO Q4H PRN PAIN 02/16/24 Unknown History sennosides 8.6 mg-docusate sodium 2 tab PO BID PRN CONSTIPATION 02/16/24 Unknown History 50 mg tablet (Stimulant Laxative Plus) Allergy/AdvReac Type Severity Reaction Status Date / Time No Known Allergies Allergy Verified 02/16/24 16:02 Family History Mother Brain aneurysm Father Hypertension Heart disease Heart failure Surgical History Status post total knee replacement, left History of total left knee replacement Hx of oophorectomy Social History household members: family Smoking Status: Current every day smoker tobacco type: cigarettes and e- cigarettes alcohol intake: never substance use type: does not use ROS ROS ED ROS Narrative Constitutional: Positive for chills. Negative for fever. Eyes: Negative for visual change. ENT: Negative for sore throat, ear pain, rhinorrhea. CVS: Negative for palpitations, chest pain, syncope. Respiratory: Negative for shortness of breath, cough, orthopnea. GI: Negative for abdominal pain, nausea, vomiting, diarrhea, constipation, melena, hematochezia. : Negative for dysuria, hematuria or frequency. Neuro: Negative for headache, motor/sensory dysfunction. Skin: Negative for rash, abscess, or wound. Musc: Negative for joint pain, swelling, trauma. Heme: Negative for easy bruising, bleeding, lymphadenopathy. EXAM Physical Exam Narrative Exam Narrative: CONST: Patient sitting in no acute distress. EYES: Normal inspection. NECK: Normal inspection. RESP: No respiratory distress, diffuse expiratory wheezing/coarse lung sounds. CVS: Regular rate and rhythm, no murmur, no gallop. SKIN: Color normal, no rash, warm, dry, intact. EXTREMITIES: Normal appearance, left knee incision has sutures intact with no erythema or drainage. No pedal edema. NEURO: Alert but intermittently somewhat confused when answering historical questions. PSYCH: Normal affect. Const Vital Signs: 02/16/24 15:58 02/16/24 16:13 02/16/24 17:02 Temperature 98.1 F 98 F Temperature Source Oral Oral Pulse Rate 85 87 Respiratory Rate 24 H 16 Respiratory Effort Short of Breath Respiratory Depth Shallow Respiratory Pattern Tachypnea Blood Pressure 168/53 H 172/75 H Blood Pressure Mean 91 107 Pulse Ox 97 97 Oxygen Delivery Method Room Air Room Air Room Air Oxygen Flow Rate (L/min) 02/16/24 18:00 02/16/24 18:55 02/16/24 19:00 Temperature 97.9 F 98.2 F 98.2 F Temperature Source Oral Oral Pulse Rate 95 85 89 Respiratory Rate 14 28 H 25 H Respiratory Effort Respiratory Depth Respiratory Pattern Blood Pressure 148/78 H 192/88 H 185/92 H Blood Pressure Mean 101 122 123 Pulse Ox 94 97 98 Oxygen Delivery Method Room Air Nasal Cannula Oxygen Flow Rate (L/min) 2 MDM MDM MDM Narrative Medical decision making narrative: History gathered from: Patient, sister Differential: COPD exacerbation, pneumonia, ACS 68-year-old female with PMH of COPD on 2 L at baseline presents with few days of cough and shortness of breath. She appears well and nontoxic. Apparently per EMS she was 88% on room air and had received 2 DuoNebs prior to arrival. My initial exam she is still tachypneic at 26/minute was saturating around 96% on room air. Lungs still have some expiratory wheezing throughout. Labs show normal white count at 7.7, stable anemia at 10.9, no significant electrolyte abnormalities, creatinine 1.5, and blood sugar of 406 with normal CO2 and anion gap. No DKA. Patient was given 1 L of IV fluids and 10 units of subcutaneous insulin. She could not remember how much short or long-acting insulin she takes at home. Her EKG is nonischemic and troponin is 9 ruling out ACS. CXR shows no acute process and viral respiratory swab is negative. I think patient is having a COPD exacerbation as she was 88% on room air for EMS and has improved after 2 DuoNeb's. She would likely benefit from steroids but due to hyperglycemia will require insulin adjustment and close monitoring which I think would be best in the hospital. Also although she is awake and alert she seems somewhat confused. She was multiple times trying to get out of bed nursing staff reported she was agitated so she was given IM Haldol 2 mg. Venous blood gas showed no CO2 retention and CT brain showed no acute process. Case was discussed with the hospitalist for admission and he is in agreement with steroids so I ordered IV Solu-Medrol. Lab Data Attestation: I reviewed the patient's lab results. Labs: Laboratory Results - last 24 hr 02/16/24 02/16/24 02/16/24 16:10 16:30 16:51 WBC 7.7 RBC 4.00 L Hgb 10.9 L Hct 34.2 L MCV 85.5 MCH 27.3 MCHC 31.9 L RDW Std Deviation 47.8 H RDW Coeff of Sidra 15.2 H Plt Count 114 L MPV 11.7 Immature Gran % (Auto) 0.600 Neut % (Auto) 77.2 H Lymph % (Auto) 17.7 L Pacific % (Auto) 4.2 Eos % (Auto) 0.0 Baso % (Auto) 0.3 Absolute Neuts (auto) 6.0 Absolute Lymphs (auto) 1.36 Nucleated RBC % 0 Sodium 133 L Potassium 4.9 Chloride 104 Carbon Dioxide 22.0 Anion Gap 7 BUN 17 Creatinine 1.50 H Estim Creat Clear Calc 41.70 Est GFR (MDRD) Af Amer 45 L Est GFR (MDRD) Non-Af 37 L BUN/Creatinine Ratio 11.3 Glucose 406 H Calcium 8.4 L Total Bilirubin 0.30 Direct Bilirubin 0.08 AST 19 ALT 12 L Alkaline Phosphatase 169 H Troponin I High Sens 9 B-Natriuretic Peptide 198.1 H Total Protein 7.1 Albumin 2.0 L Globulin 5.1 H Urine Color Urine Clarity Urine pH Ur Specific [place] Urine Protein Urine Glucose (UA) Urine Ketones Urine Occult Blood Urine Nitrite Urine Bilirubin Urine Urobilinogen Ur Leukocyte Esterase Urine RBC Urine WBC Ur Squamous Epith Cells Urine Bacteria Urine Mucus Acetone Level NEGATIVE POC Glucose 401 H 02/16/24 02/16/24 17:05 18:50 WBC RBC Hgb Hct MCV MCH MCHC RDW Std Deviation RDW Coeff of Sidra Plt Count MPV Immature Gran % (Auto) Neut % (Auto) Lymph % (Auto) Pacific % (Auto) Eos % (Auto) Baso % (Auto) Absolute Neuts (auto) Absolute Lymphs (auto) Nucleated RBC % Sodium Potassium Chloride Carbon Dioxide Anion Gap BUN Creatinine Estim Creat Clear Calc Est GFR (MDRD) Af Amer Est GFR (MDRD) Non-Af BUN/Creatinine Ratio Glucose Calcium Total Bilirubin Direct Bilirubin AST ALT Alkaline Phosphatase Troponin I High Sens B-Natriuretic Peptide Total Protein Albumin Globulin Urine Color Yellow Urine Clarity Clear Urine pH 6.0 Ur Specific [place] 1.015 Urine Protein 500 H Urine Glucose (UA) 1000 H Urine Ketones Negative Urine Occult Blood 150 H Urine Nitrite Negative Urine Bilirubin Negative Urine Urobilinogen Normal Ur Leukocyte Esterase Negative Urine RBC 0-5 SEEN Urine WBC 5-10 SEEN Ur Squamous Epith Cells 0-5 SEEN Urine Bacteria RARE Urine Mucus 0 SEEN Acetone Level POC Glucose 388 H ABG Data ABG results: ABG 02/16/24 17:03 Specimen Type ANDREW Sample Site Not entered O2 % 21.0 VBG pH 7.48 H VBG pO2 60 H VBG HCO3 22 VBG Total CO2 23 VBG O2 Sat (Calc) 93 H VBG Base Excess -1 POC Mix VBG pCO2 Pt Tmp 29.9 L O2 Delivery Device Not entered Radiography Diagnostic Testing: Clinical Impression(s) from Imaging Studies Chest X-Ray 02/16/24 16:05 IMPRESSION: No radiographic evidence of acute cardiopulmonary disease. Electronically Signed: Ovidio Pham DO at 16:36 EST , Brain CT 02/16/24 19:09 IMPRESSION: Normal unenhanced CT scan of the brain. Electronically Signed: Ovidiomalena Pham DO at 19:31 EST Reading Location ID and State: [facility] / [place] Tel [phone], Service support , ED attending interpretation of 1 view chest x-ray shows normal heart size, no acute infiltrate. EKG Initial EKG: Attestation: I personally reviewed and interpreted this EKG as follows: Interpretation: Sinus Rhythm and No Acute Injury Pattern Comments: Normal sinus rhythm 81 bpm Low voltage QRS No acute ST changes Discharge Plan Triage Chief Complaint: Shortness of Breath ED Midlevel Provider: Nicole Arias ED Provider: Chris Mendez Dx/Rx/DC Orders Clinical Impression: Acute exacerbation of chronic obstructive pulmonary disease, Hyperglycemia due to diabetes mellitus, Altered mental status Prescriptions: No Action atorvastatin 20 mg tablet 20 mg PO DAILY citalopram 40 mg tablet 40 mg PO DAILY aspirin 81 mg tablet,delayed release (DR/EC) 81 mg PO DAILY gabapentin 800 mg tablet 800 mg PO TID insulin glargine [Lantus Solostar U-100 Insulin] 100 unit/mL (3 mL) insulin pen 40 unit subcut BID levothyroxine 75 mcg tablet 75 mcg PO DAILY trazodone 100 mg tablet 100 mg PO QHS montelukast 10 mg tablet 10 mg PO QHS metoprolol succinate 100 mg tablet extended release 24 hr 100 mg PO DAILY 30 Days Qty: 30 2RF Rx Instructions: Hold for heart less than 50 or systolic blood pressure less than 100 mmHg. furosemide 40 mg tablet 40 mg PO DAILY 30 Days Qty: 30 2RF Rx Instructions: Take extra 40 mg dose at 5 PM for increased leg swelling or weight gain 5 pounds in 1 week. cyanocobalamin (vitamin B-12) 1,000 mcg tablet 1,000 mcg PO QODAY amlodipine 5 mg tablet 5 mg PO DAILY omeprazole 40 mg capsule,delayed release(DR/EC) 40 mg PO DAILY duloxetine 20 mg capsule,delayed release(DR/EC) 20 mg PO BID oxycodone 5 mg tablet 5 mg PO Q4H PRN (Reason: PAIN ) Rx Instructions: TAKE ONE TABLET BY MOUTH EVERY 4 TO 6 HOURS NEEDED FOR PAIN FOR SEVEN DAYS. sennosides-docusate sodium [Stimulant Laxative Plus] 8.6-50 mg Tablet 2 tab PO BID PRN (Reason: CONSTIPATION ) dextromethorphan-guaifenesin [Mucinex DM] 60-1,200 mg tablet extended release 12 hr 1 tab PO Q12H PRN (Reason: ALLERGIES/CONGESTION ) ondansetron 4 mg tablet,disintegrating 8 mg PO Q8H PRN (Reason: NAUSEA ) Primary Care Provider: Deepa Hunt Referrals: Deepa Hunt PA [Primary Care Provider] - Print Language: Sami
[2024-02-16 16:52] LABS: Absolute Lymphocyte Count 1.36 X10^3/uL (0.83-4.51); Basophil# 0.02 X10^3/uL; Basophil% 0.3 % (0-1); Hematocrit 34.2 % (37-47); Hemoglobin 10.9 g/dL (12.0-15.0); Lymphocyte # 1.36 X10^3/ul (0.83-4.51); Lymphocyte % 17.7 % (19-41); Mean Corp Hgb Conc 31.9 g/dL (32-36); Mean Corpuscular Hgb 27.3 pg (27.0-32.0); Mean Corpuscular Volume 85.5 fL (81-99); Mean Platelet Vol. 11.7 fl (6.2-12.0); Monocyte# 0.32 X10^3/uL; Monocyte% 4.2 % (0-10); NRBC Flagged by Analyzer 0 % (0-5); Neutrophil # 5.95 X10^3/uL (2.7-7.7); Neutrophil % 77.2 % (47-70); Platelet Count 114 K/mm3 (150-450); RBC Distribution Width CV 15.2 % (11.6-14.6); RBC Distribution Width SD 47.8 fl (35.1-43.9); White Blood Count 7.7 K/mm3 (4.4-11.0)
[2024-02-16 16:55] LABS: Anion Gap 7 (5-15); BUN 17 mg/dL (7-18); BUN/Creat Ratio 11.3 RATIO (10-20); Calcium,Total 8.4 mg/dL (8.5-10.1); Chloride 104 mmol/L (98-107); EST Glomerular Filtration Rate 37 mL/min (>60); Est Glom Filt Rate - Afr Amer 45 mL/min (>60); Glucose 406 mg/dL (74-106); Potassium 4.9 mmol/L (3.5-5.1); Sodium Level 133 mmol/L (136-145); Troponin-I HS 9 pg/mL (3.0-54.0)
[2024-02-16] MEDS: 0.9% Normal Saline (1000mL) 1,000 ML 999 ML IV (16:57)
[2024-02-16 16:58] LABS: Bedside Glucose 401 mg/dL (74-106)
[2024-02-16 17:05] LABS: Blood Gas Specimen Type VEN; O2 Delivery Device Not entered; SITE Not entered; VBG BASE EXCESS -1 mmol/L (-1.0-3.5); VBG Bicarbonate 22 mmol/L (22-26); VBG PO2 60 mmHg (25-40); VBG SO2 93 % (50-70); VBG TCO2 23 mmol/L (23-33); VBG pCO2 29.9 mmHg (41-51); VBG pH 7.48 (7.32-7.42)
[2024-02-16 17:07] LABS: AST(SGOT) 19 U/L (15-37); Alanine Aminotransfer ALT/SGPT 12 U/L (13-56); Alkaline Phosphatase 169 U/L (45-117); Bilirubin, Direct 0.08 mg/dL (0.00-0.30); Globulin 5.1 g/dL (2.2-4.2); Protein, Total 7.1 g/dL (6.4-8.2)
--- NOTE | 2024-02-16 17:11 | ED.RN ---
Verified order for 1000ml bolus of NS with ED MD.
[2024-02-16 17:16] LABS: Mucous, Urine 0 SEEN /hpf (<or=2+)
[2024-02-16] MEDS: Insulin Lispro 100 UNIT/ML INSULN.PEN 10 UNIT SC (17:32)
[2024-02-16 17:46] LABS: Color, Urine Yellow (Yellow); Glucose, Dipstick 1000 mg/dl (Normal); Ketone-Dipstick Negative (Negative); Leukocyte Esterase-Dipstick Negative /ul (Negative); Nitrite-Dipstick Negative (Negative); Occult Blood-Urine 150 /ul (Negative); Protein-Dipstick 500 mg/dl (Negative); Specific Gravity, Urine 1.015 (1.002-1.030); Urine Bilirubin Dipstick Negative (Negative); Urine Clarity Clear (Clear); Urine Urobilinogen Normal (Normal)
[2024-02-16 17:54] LABS: BNP,B-Type NATRIURETIC PEPTIDE 198.1 pg/mL (0-100)
[2024-02-16] MEDS: Cefepime HCl 2 GM in 0.9% Normal Saline (100mL MB+) 100 ML IV (18:10)
--- NOTE | 2024-02-16 18:21 | ED.RN ---
PT IS CURRENTLY REFUSING TO KEEP O2 ON BUT COMPLAINS ABOUT BEING SOB.
--- NOTE | 2024-02-16 18:53 | ED.RN ---
Pt continues to pull off O2, removes blood pressure cuff, pulls off cardiac leads. Pt found standing at foot of bed yelling, PICC line almost pulled out. Pt belligerent and rude at times then apologizes, difficult to redirect.
[2024-02-16] MEDS: Haloperidol Lactate 5 MG/ML Vial 2 MG IM (18:59)
[2024-02-16 19:03] LABS: Bacteria RARE /hpf (None Seen); Red Blood Cells-Urine 0-5 SEEN /hpf (0-5); Squamous Epithelial Cells - UA 0-5 SEEN /hpf (5-10); White Blood Cells 5-10 SEEN /hpf (0-5)
[2024-02-16 19:08] LABS: Bedside Glucose 388 mg/dL (74-106)
--- NOTE | 2024-02-16 19:09 | CT_ITS ---
STUDY: CT BRAIN WITHOUT CONTRAST REASON FOR EXAM: Female, 68 years old. altered mental status RADIATION DOSAGE (If Supplied By Facility): CTDIvol = ( 44.99 ) mGy, DLP = ( 812.98 ) mGycm TECHNIQUE: Transaxial CT imaging of the brain was performed without administration of intravenous contrast material. Individualized dose optimization techniques were used for this CT. COMPARISON: No relevant priors. FINDINGS: Normal soft tissue structures. Normal calvarium. Normal size ventricles and extra-axial spaces for the patient''s age. Normal white matter tracts of the cerebral hemispheres. Normal basal ganglia and thalami. Normal brainstem. Normal cerebellum. There is no intracranial hemorrhage. There are no findings of an acute ischemic infarction. Normal visualized paranasal sinuses. CT/Brain/Head without Contrast IMPRESSION: Normal unenhanced CT scan of the brain. Electronically Signed: Ovidio Pham DO at 19:31 EST ,
--- NOTE | 2024-02-16 19:56 | PCM.HP.STD ---
[facility] - General General Date of Admission: 02/16/24 Date of Service: 02/16/24 Chief Complaint: SOB, Cough and Confusion. [facility] Narrative CHRISTIAN PALACIOS, is a 68 F with a past medical history of essential hypertension; on Lasix, metoprolol and amlodipine, hyperlipidemia, hypothyroidism, morbid obesity; with BMI of 42.9 this admission, DM-2; uncontrolled with hyperglycemia on Lantus 40 units sq BID, diabetic neuropathy; on gabapentin, history of tobacco abuse; with subsequent COPD, chronic hypoxic respiratory failure on home oxygen 2L NC, chronic diastolic CHF; with preserved LVEF, CKD; stage III, history of thrombocytopenia, depression; on duloxetine, citalopram and trazodone, history of ovarian cysts; s/p oophorectomy, GERD; on omeprazole plus OA; s/p Left TKR with history of postoperative Left knee infection with septic arthritis; s/p PICC still in-place for IV Cefepime on prn Oxycodone who presents to [facility] ER complaining SOB, cough and confusion. Ms. Palacios reports her symptoms began ~2-3 days prior to admission with the gradual-onset of NGUYEN that progressed to SOB at rest. She also admits to a nonproductive cough and chills with patient noting her oxygen saturation dropped into the ~83% range at home in spite of her oxygen with her condition steadily worsening so she activated EMS to be brought in for further evaluation and treatment. She states her symptoms are similar to her previous AE COPD. She denies associated fever, nausea, vomiting, diarrhea, constipation, chest pain, palpitations, diaphoresis, headache, paresthesias or focal neurologic weakness. In the ER she was noted to have a CXR negative for acute pathologic changes and she was then diagnosed with clinical evidence of AE COPD with Rwztv-ep-Bwxjijo Respiratory Insufficiency complicated by Uncontrolled Hypertension of 185/92 mmHg noted shortly after arrival compounded by Hyperglycemia of 406 mg/dL present on admission and Hypoalbuminemia of 2 g/dL present on admission suspicious for Protein-Calorie Malnutrition with Moderate Thrombocytopenia of 114K present on admission all suspected to be causing Acute Metabolic Encephalopathy and she was then admitted to the general medical floor with telemetric monitoring for a stay that is expected to extend beyond 2 midnights. [facility] Medical History (Updated 02/16/24 @ 23:[address] Randy Sanabria DO) BMI greater than 40 Diabetes On home oxygen therapy Congestive heart failure (CHF) (HFpEF) heart failure with preserved ejection fraction Chronic hypoxic respiratory failure, on home oxygen therapy COPD (chronic obstructive pulmonary disease) CHF (congestive heart failure) Diabetes mellitus, type 2 Thrombocytopenia Allergic rhinitis Hypothyroidism Anxiety and depression Morbid obesity CKD (chronic kidney disease), stage III Hyperlipidemia Hypertension Home Medications ?Medication ?Instructions ?Recorded ?Last Taken ?Type aspirin 81 mg tablet,delayed 81 mg PO DAILY HEART HEALTH 01/12/24 01/27/24 History release atorvastatin 20 mg tablet 20 mg PO DAILY CHOLESTEROL 01/12/24 01/27/24 History citalopram 40 mg tablet 40 mg PO DAILY DEPRESSION 01/12/24 01/27/24 History gabapentin 800 mg tablet 800 mg PO TID NERVE PAIN 01/12/24 01/27/24 History insulin glargine 100 unit/mL (3 40 unit subcut BID DIABETES 01/12/24 01/27/24 History mL) subcutaneous pen (Lantus Solostar U-100 Insulin) levothyroxine 75 mcg tablet 75 mcg PO DAILY THYROID 01/12/24 01/27/24 History montelukast 10 mg tablet 10 mg PO QHS COPD 01/12/24 01/27/24 History trazodone 100 mg tablet 100 mg PO QHS DEPRESSION 01/12/24 01/27/24 History furosemide 40 mg tablet 40 mg PO DAILY SWELLING/WEIGHT 01/14/24 01/27/24 Rx GAIN 1 month #30 tabs metoprolol succinate 100 mg 100 mg PO DAILY BLOOD PRESSURE 1 01/14/24 01/27/24 Rx tablet,extended release 24 hr month #30 tabs amlodipine 5 mg tablet 5 mg PO DAILY BLOOD PRESSURE 01/27/24 01/27/24 History cyanocobalamin (vitamin B-12) 1,000 mcg PO QODAY SUPPLEMENT 01/27/24 01/27/24 History 1,000 mcg tablet duloxetine 20 mg capsule,delayed 20 mg PO BID DEPRESSION 01/27/24 01/27/24 History release omeprazole 40 mg capsule,delayed 40 mg PO DAILY GERD 01/27/24 01/26/24 History release dextromethorphan-guaifenesin ER 60 1 tab PO Q12H PRN 02/16/24 Unknown History mg-1,200 mg tab,extend ALLERGIES/CONGESTION release,12hr (Mucinex DM) ondansetron 4 mg disintegrating 8 mg PO Q8H PRN NAUSEA 02/16/24 Unknown History tablet oxycodone 5 mg tablet 5 mg PO Q4H PRN PAIN 02/16/24 Unknown History sennosides 8.6 mg-docusate sodium 2 tab PO BID PRN CONSTIPATION 02/16/24 Unknown History 50 mg tablet (Stimulant Laxative Plus) Allergy/AdvReac Type Severity Reaction Status Date / Time No Known Allergies Allergy Verified 02/16/24 16:02 Family History Mother Brain aneurysm Father Hypertension Heart disease Heart failure Surgical History Status post total knee replacement, left History of total left knee replacement Hx of oophorectomy Social History household members: family Smoking Status: Current every day smoker tobacco type: cigarettes and e-cigarettes alcohol intake: never substance use type: does not use ROS ROS Narrative Review of Systems: Constitutional: Patient admits to chills but she denies fever. Eyes: Patient denies changes in vision or discharge from eyes. ENT: Patient denies runny nose, sore throat or ear pain. Resp: Patient admits to NGUYEN that progressed to SOB at rest with nonproductive cough as per HPI. CV: Patient denies chest pain, palpitations or heart racing. GI: Patient denies abdominal pain, nausea, vomiting, diarrhea or constipation. : Patient denies dysuria or hematuria. MSK: Patient admits to Left knee pain and generalized weakness. Skin: Patient denies rash, abscess or jaundice. Psych: Patient denies symptoms of uncontrolled depression or anxiety. Neuro: Patient admits to mild confusion but she denies headache, paresthesias or focal neurologic deficits. Allergy: Patient denies lip swelling, tongue swelling or urticaria. Hematology: Patient denies easy bleeding or easy bruisability. Endocrinology: Patient admits to hyperglycemia but she denies polyuria, polydipsia or polyphagia. 14 point ROS otherwise negative except for positives noted above in HPI. Vital Signs Vital Signs Vital Signs: 02/16/24 15:58 02/16/24 16:13 02/16/24 17:02 Temperature 98.1 F 98 F Temperature Source Oral Oral Pulse Rate 85 87 Respiratory Rate 24 H 16 Respiratory Effort Short of Breath Respiratory Depth Shallow Respiratory Pattern Tachypnea Blood Pressure 168/53 H 172/75 H Blood Pressure Mean 91 107 Pulse Ox 97 97 Oxygen Delivery Method Room Air Room Air Room Air Oxygen Flow Rate (L/min) 02/16/24 18:00 02/16/24 18:55 02/16/24 19:00 Temperature 97.9 F 98.2 F 98.2 F Temperature Source Oral Oral Pulse Rate 95 85 89 Respiratory Rate 14 28 H 25 H Respiratory Effort Respiratory Depth Respiratory Pattern Blood Pressure 148/78 H 192/88 H 185/92 H Blood Pressure Mean 101 122 123 Pulse Ox 94 97 98 Oxygen Delivery Method Room Air Nasal Cannula Oxygen Flow Rate (L/min) 2 Weight Weight: 234 lb 5.622 oz Body Mass Index (BMI) 42.8 Physical Exam Const alert and no apparent distress Constitutional Narrative: Mild labored respirations noted with mild intermittent confusion. General Appearance: cooperative Orientation / Consciousness: confused HEENT normocephalic, head/scalp atraumatic, hearing grossly normal bilaterally and moist oral mucous membranes Eyes PERRL and EOMs intact bilaterally Neck no lymphadenopathy and supple Resp Resp Narrative: Diminished breath sounds throughout with scattered wheezed and rhonci. Auscultation: rhonchi and wheezes Cardio regular rate and regular rhythm GI normal to inspection, nondistended, normoactive bowel sounds, soft to palpation, non-tender and non-distended GI Narrative: morbidly obes. Extremity Extremity Narrative: Left knee s/o recent Left TKR with no overt signs of acute infection or vascular compromise. Skin Skin Narrative: Left knee s/o recent Left TKR with no overt signs of acute infection or vascular compromise. Neuro CN's II-XII intact bilaterally, moves all extremities and no focal motor deficits Sensorium / Orientation: awake, alert, oriented to person and oriented to place Speech: speech normal Psych affect normal Results Medical Records Data Attestation: I reviewed the patient's medical records Lab / Micro Data Attestation: I reviewed the patient's lab results. 02/16/24 16:10 02/16/24 16:10 Labs: Laboratory Results - last 24 hr 02/16/24 16:10: WBC 7.7, RBC 4.00 L, Hgb 10.9 L, Hct 34.2 L, MCV 85.5, MCH 27.3, MCHC 31.9 L, RDW Std Deviation 47.8 H, RDW Coeff of Sidra 15.2 H, Plt Count 114 L, MPV 11.7, Immature Gran % (Auto) 0.600, Neut % (Auto) 77.2 H, Lymph % (Auto) 17.7 L, Holt % (Auto) 4.2, Eos % (Auto) 0.0, Baso % (Auto) 0.3, Absolute Neuts (auto) 6.0, Absolute Lymphs (auto) 1.36, Nucleated RBC % 0, Sodium 133 L, Potassium 4.9, Chloride 104, Carbon Dioxide 22.0, Anion Gap 7, BUN 17, Creatinine 1.50 H, Estim Creat Clear Calc 41.70, Est GFR (MDRD) Af Amer 45 L, Est GFR (MDRD) Non-Af 37 L, BUN/Creatinine Ratio 11.3, Glucose 406 H, Calcium 8.4 L, Total Bilirubin 0.30, Direct Bilirubin 0.08, AST 19, ALT 12 L, Alkaline Phosphatase 169 H, Troponin I High Sens 9, B-Natriuretic Peptide 198.1 H, Total Protein 7.1, Albumin 2.0 L, Globulin 5.1 H 02/16/24 16:30: POC Glucose 401 H 02/16/24 16:51: Acetone Level NEGATIVE 02/16/24 17:05: Urine Color Yellow, Urine Clarity Clear, Urine pH 6.0, Ur Specific [place] 1.015, Urine Protein 500 H, Urine Glucose (UA) 1000 H, Urine Ketones Negative, Urine Occult Blood 150 H, Urine Nitrite Negative, Urine Bilirubin Negative, Urine Urobilinogen Normal, Ur Leukocyte Esterase Negative, Urine RBC 0-5 SEEN, Urine WBC 5-10 SEEN, Ur Squamous Epith Cells 0-5 SEEN, Urine Bacteria RARE, Urine Mucus 0 SEEN 02/16/24 18:50: POC Glucose 388 H Micro: Microbiology 02/16/24 16:51 Mucosa - Nose SARS-CoV-2, Influenza & RSV (PCR) - Final ABG Data ABG results: ABG 02/16/24 17:03 Specimen Type ANDREW Sample Site Not entered O2 % 21.0 VBG pH 7.48 H VBG pO2 60 H VBG HCO3 22 VBG Total CO2 23 VBG O2 Sat (Calc) 93 H VBG Base Excess -1 POC Mix VBG pCO2 Pt Tmp 29.9 L O2 Delivery Device Not entered Imaging Radiology Impression Chest X-Ray 02/16/24 16:05 IMPRESSION: No radiographic evidence of acute cardiopulmonary disease. Electronically Signed: Ovidio Pham at 16:36 EST , Brain CT 02/16/24 19:09 IMPRESSION: Normal unenhanced CT scan of the brain. Electronically Signed: Ovidio DO Ankit at 19:31 EST , Assessment & Plan Assessment/Plan (1) Acute exacerbation of chronic obstructive pulmonary disease: (2) Respiratory insufficiency: (3) Uncontrolled hypertension: (4) Diabetes mellitus, type 2: QUALIFIERS: Diabetes mellitus complication status: without complication Diabetes mellitus fci insulin use: with bed bug exterminator use Qualified Code(s): E11.9 - Type 2 diabetes mellitus without complications; Z79.4 - long term care administrator (current) use of insulin (5) Hyperglycemia due to diabetes mellitus: (6) Metabolic encephalopathy: (7) BMI greater than 40: PLAN: Plan 1. AE COPD with Swpcu-sv-Coyarhp Respiratory Insufficiency - Admit to general medical floor. Continue IV Solu-Medrol plus empiric IV doxycycline. Wean supplemental oxygen as tolerated. 2. Uncontrolled Hypertension of 185/92 mmHg noted shortly after arrival complicating #1 - Resume home regimen plus give as needed IV hydralazine for systolic blood pressure greater than 160 mmHg. 3. DM-2; uncontrolled with hyperglycemia of 402 mg/dL present on admission with diabetic neuropathy compounding #1 & #2 - ADA diet. FSBS q. AC/HS plus SSI. Check hemoglobin A1c to objectively evaluate quality of diabetic control. 4. OA; s/p Left TKR with history of postoperative Left knee infection with septic arthritis; s/p PICC still in-place for IV Cefepime on prn Oxycodone adding to the medical complexity of #1- #3 - Noted. Maintain treatment as before. 5. Hypoalbuminemia of 2 g/dL present on admission suspicious for Protein-Calorie Malnutrition - We will consult clinical dietitian for formal malnutrition evaluation with help appreciated in advance. 6. 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 7. Morbid obesity; with BMI of 42.9 this admission adding to the burden of disease outlined from #1 - #6 - Weight loss will be recommended. Check TSH. This complicates her case and may hamper recovery. 8. Moderate Thrombocytopenia of 114K present on admission - A review of her prior labs show a baseline from 76K to 200K over the past month. 9. Hyperlipidemia - Resume statin as previous. 10. Hypothyroidism - Resume Synthroid as before and check TSH. 11. Chronic diastolic CHF; with preserved LVEF - Noted with slightly elevated BNP of 198.1 pg/mL present on admission. 12. CKD; stage III - 13. Depression; on duloxetine, citalopram and trazodone - 14. History of ovarian cysts; s/p oophorectomy - Noted. 15. GERD; on omeprazole - Continue omeprazole as previous. 16. DVT prophylaxis - Lovenox 40 mg sq BID. We will follow daily CBC and stop this agent if platelet count drops below 100K. Total time: Approximately (but not less than) 75 minutes. Charges/Coding Visit Charges Inpatient E&M: 87575 Init Hosp L3
[2024-02-16] MEDS: MethylPREDNISolone 125 MG/2 ML Vial IV (20:01)
[2024-02-16 22:14] LABS: Vitamin B12 1161 pg/mL (211-911)
[2024-02-16 22:24] LABS: Amphetamine Urine VISTA NEGATIVE (<1000 ng/mL); Barbiturate Urine VISTA NEGATIVE (< 200 ng/mL); Benzodiazepine Urine VISTA NEGATIVE (< 200 ng/mL); Cocaine Urine VISTA NEGATIVE (< 300 ng/mL); Ecstacy Urine VISTA NEGATIVE (< 500 ng/mL); Methadone Urine VISTA NEGATIVE (< 300 ng/mL); PCP Urine VISTA NEGATIVE (< 25 ng/mL); THC Urine VISTA NEGATIVE (< 50 ng/mL); Vista UDS pH Range 4
[2024-02-16] MEDS: Atorvastatin Calcium 20 MG Tablet PO (22:42)
[2024-02-16] MEDS: Montelukast 10 MG Tablet PO (22:42)
[2024-02-16] MEDS: Enoxaparin 40 MG/0.4 ML Syringe SC (22:42)
[2024-02-16] MEDS: traZODone 100 MG Tablet PO (22:42)
[2024-02-16] MEDS: 0.9% Normal Saline (1000mL) 1,000 ML 30 ML IV (22:42)
[2024-02-16] MEDS: DULoxetine Hcl 20 MG Capsule PO (22:42)
[2024-02-16] MEDS: Lactobacillis Acidophilus 1 CAP PO (22:42)
[2024-02-16] MEDS: Gabapentin 800 MG Tablet PO (22:42)
[2024-02-16] MEDS: Doxycycline 100 MG in Dextrose 5%-Water (250mL Bag) 250 ML 250 MG IV (22:43)
[2024-02-16] MEDS: Insulin Glargine-YFGN 100 UNIT/ML Pen 50 UNIT SC (22:55)
[2024-02-16] MEDS: Insulin Lispro 100 UNIT/ML INSULN.PEN SC (23:00)
[2024-02-16 23:23] LABS: Bedside Glucose 354 mg/dL (74-106)
[2024-02-17] VITALS (8 sets, daily range): BP systolic 166–177; BP diastolic 65–66; PULSE 79–89; RESP 15–18; TEMP 36.5–36.6; O2SAT 95–100; BMI 42.0
[2024-02-17] MEDS: oxyCODONE 5 MG Tablet PO (00:04)
[2024-02-17] MEDS: MELATONIN 3 MG TABLET PO (01:06)
[2024-02-17] MEDS: Gabapentin 800 MG Tablet PO (06:47)
[2024-02-17] MEDS: Levothyroxine 75 MCG Tablet PO (06:47)
[2024-02-17] MEDS: Insulin Lispro 100 UNIT/ML INSULN.PEN SC ×2 (06:51→11:05)
[2024-02-17 07:22] LABS: Bedside Glucose 444 mg/dL (74-106)
[2024-02-17 07:30] LABS: Absolute Lymphocyte Count 0.72 X10^3/uL (0.83-4.51); Basophil# 0.01 X10^3/uL; Basophil% 0.2 % (0-1); Hematocrit 32.1 % (37-47); Hemoglobin 10.5 g/dL (12.0-15.0); Lymphocyte # 0.72 X10^3/ul (0.83-4.51); Lymphocyte % 11.8 % (19-41); Mean Corp Hgb Conc 32.7 g/dL (32-36); Mean Corpuscular Hgb 27.7 pg (27.0-32.0); Mean Corpuscular Volume 84.7 fL (81-99); Mean Platelet Vol. 12.1 fl (6.2-12.0); Monocyte# 0.26 X10^3/uL; Monocyte% 4.3 % (0-10); NRBC Flagged by Analyzer 0 % (0-5); Neutrophil # 5.02 X10^3/uL (2.7-7.7); Neutrophil % 82.4 % (47-70); Platelet Count 104 K/mm3 (150-450); RBC Distribution Width CV 15.2 % (11.6-14.6); RBC Distribution Width SD 46.8 fl (35.1-43.9); Red Blood Count 3.79 M/mm3 (4.2-5.4); White Blood Count 6.1 K/mm3 (4.4-11.0)
[2024-02-17 07:46] LABS: ALB/GLOB Ratio 0.4 RATIO (0.9-2.4); AST(SGOT) 16 U/L (15-37); Alanine Aminotransfer ALT/SGPT 15 U/L (13-56); Albumin, Serum 2.1 g/dL (3.2-5.0); Alkaline Phosphatase 161 U/L (45-117); Anion Gap 5 (5-15); BUN 19 mg/dL (7-18); BUN/Creat Ratio 14.8 RATIO (10-20); Calcium,Total 8.3 mg/dL (8.5-10.1); Chloride 100 mmol/L (98-107); Creatinine, Serum 1.28 mg/dL (0.55-1.02); EST Glomerular Filtration Rate 44 mL/min (>60); Est Glom Filt Rate - Afr Amer 53 mL/min (>60); Estimated Creatinine Clearance 48.13 ml/min; Glucose 426 mg/dL (74-106); Magnesium 1.3 mg/dL (1.6-2.6); Phosphorus 3.4 mg/dL (2.5-4.9); Potassium 4.7 mmol/L (3.5-5.1); Protein, Total 7.1 g/dL (6.4-8.2); Sodium Level 130 mmol/L (136-145)
[2024-02-17 08:25] LABS: Hemoglobin A1c 7.6 % (3.8-5.6)
[2024-02-17] MEDS: Doxycycline 100 MG in Dextrose 5%-Water (250mL Bag) 250 ML 250 MG IV (09:24)
[2024-02-17] MEDS: Metoprolol(XL)Succ 100 MG Tablet PO (09:58)
[2024-02-17] MEDS: Lactobacillis Acidophilus 1 CAP PO (09:59)
[2024-02-17] MEDS: DULoxetine Hcl 20 MG Capsule PO (09:59)
[2024-02-17] MEDS: amLODIPine 5 MG Tablet PO (09:59)
[2024-02-17] MEDS: Citalopram 40 MG TABLET PO (09:59)
[2024-02-17] MEDS: Pantoprazole Sodium 40 MG Tablet PO (09:59)
[2024-02-17] MEDS: Furosemide 40 MG Tablet PO (10:00)
[2024-02-17] MEDS: Enoxaparin 40 MG/0.4 ML Syringe SC (10:00)
[2024-02-17] MEDS: Insulin Glargine-YFGN 100 UNIT/ML Pen 50 UNIT SC (10:00)
[2024-02-17] MEDS: MethylPREDNISolone 125 MG/2 ML Vial 60 MG IV (10:00)
--- NOTE | 2024-02-17 10:25 | CASEMGMT ---
PANDA CHACON Readmission Note Previous Admission: 01/29/24-02/01/24 Diagnosis:intractable L knee pain DC Disposition: DC home with [facility] Current Admission: Admitted 02/16/24 Current Diagnosis:AE COPD, resp insuff, hyperglycemia Pt dc'd from index stay with [facility] for IV atb at home. Pt presented with SOB and admitted to hospital. PANDA CHACON into pt room, pt A&Ox3. Pt states she gets to go home today. Pt reports [facility] is going well and she would like to continue with the same agency. She denies need for a list of other options. Pt states she does her own IV atb. Pt is using a cane to ambulate. Therapy eval'd at hospital. Pt on oxygen through [employer], states she only wears it at night. Pt did not qualify for oxygen. Pt on RA at time of conversation. Pt denies any further homegoing needs. Pt to dc home today with STEPHANIE of [facility]. Updated Mignon at [facility]. DC Plan: Home with [facility] resuming.
--- NOTE | 2024-02-17 10:44 | PN.HOSP_ITS ---
Reason for Visit Reason for Visit: Diagnoses Type 2 diabetes mellitus with hyperglycemia (02/16/24) Type 2 diabetes mellitus without complications (02/16/24) Metabolic encephalopathy (02/16/24) Essential (primary) hypertension (02/16/24) Chronic obstructive pulmonary disease with (acute) exacerbation (02/16/24) Other abnormalities of breathing (02/16/24) shelter (current) use of insulin (02/16/24) Objective Data Objective Data Vital Signs: Vital Signs Temp Pulse Resp BP Pulse Ox O2 Del Method O2 Flow Rate 97.7 F L 82 18 177/65 H 100 Room Air 2 02/17/24 09:39 02/17/24 10:00 02/17/24 09:39 02/17/24 09:58 02/17/24 09:39 02/17/24 10:08 02/17/24 03:18 Oxygen Flow Rate (L/min) 2 Oxygen Delivery Method Room Air Weight: 228 lb 5 oz Body Mass Index (BMI) 42.0 Intake & Output: Intake and Output for Last 24 Hours 02/15/24 02/16/24 02/17/24 23:59 23:59 23:59 Intake Total 1760 / 1760 260 / 260 Output Total 150 / 150 Balance 1610 / 1610 260 / 260 Lab / Micro Data 02/17/24 07:00 02/17/24 07:00 Labs: Laboratory Results - last 24 hr 02/16/24 16:10: WBC 7.7, RBC 4.00 L, Hgb 10.9 L, Hct 34.2 L, MCV 85.5, MCH 27.3, MCHC 31.9 L, RDW Std Deviation 47.8 H, RDW Coeff of Sidra 15.2 H, Plt Count 114 L, MPV 11.7, Immature Gran % (Auto) 0.600, Neut % (Auto) 77.2 H, Lymph % (Auto) 17.7 L, Cottle % (Auto) 4.2, Eos % (Auto) 0.0, Baso % (Auto) 0.3, Absolute Neuts (auto) 6.0, Absolute Lymphs (auto) 1.36, Nucleated RBC % 0, Sodium 133 L, Potassium 4.9, Chloride 104, Carbon Dioxide 22.0, Anion Gap 7, BUN 17, C reatinine 1.50 H, Estim Creat Clear Calc 41.70, Est GFR (MDRD) Af Amer 45 L, Est GFR (MDRD) Non-Af 37 L, BUN/Creatinine Ratio 11.3, Glucose 406 H, Calcium 8.4 L, Total Bilirubin 0.30, Direct Bilirubin 0.08, AST 19, ALT 12 L, Alkaline Phosphatase 169 H, Troponin I High Sens 9, B-Natriuretic Peptide 198.1 H, Total Protein 7.1, Albumin 2.0 L, Globulin 5.1 H 02/16/24 16:30: POC Glucose 401 H 02/16/24 16:51: Vitamin B12 1161 H, Acetone Level NEGATIVE 02/16/24 17:05: Urine Color Yellow, Urine Clarity Clear, Urine pH 6.0, Ur Specific [place] 1.015, Urine Protein 500 H, Urine Glucose (UA) 1000 H, Urine Ketones Negative, Urine Occult Blood 150 H, Urine Nitrite Negative, Urine Bilirubin Negative, Urine Urobilinogen Normal, Ur Leukocyte Esterase Negative, Urine RBC 0-5 SEEN, Urine WBC 5-10 SEEN, Ur Squamous Epith Cells 0-5 SEEN, Urine Bacteria RARE, Urine Mucus 0 SEEN, Urine Opiates Screen NEGATIVE, Urine Methadone Screen NEGATIVE, Ur Barbiturates Screen NEGATIVE, Ur Phencyclidine Scrn NEGATIVE, Ur Amphetamines Screen NEGATIVE, MDMA (Ecstasy) Screen NEGATIVE, U Benzodiazepines Scrn NEGATIVE, Urine Cocaine Screen NEGATIVE, U Cannabinoids Screen NEGATIVE, Ur Drug Screen Comment 02/16/24 18:50: POC Glucose 388 H 02/16/24 22:53: POC Glucose 354 H 02/16/24 23:35: Folate 8.90, TSH 4.630 H 02/17/24 06:50: POC Glucose 444 H 02/17/24 07:00: WBC 6.1, RBC 3.79 L, Hgb 10.5 L, Hct 32.1 L, MCV 84.7, MCH 27.7, MCHC 32.7, RDW Std Deviation 46.8 H, RDW Coeff of Sidra 15.2 H, Plt Count 104 L, M PV 12.1 H, Immature Gran % (Auto) 1.300 H, Neut % (Auto) 82.4 H, Lymph % (Auto) 11.8 L, Cottle % (Auto) 4.3, Eos % (Auto) 0.0, Baso % (Auto) 0.2, Absolute Neuts (auto) 5.0, Absolute Lymphs (auto) 0.72 L, Nucleated RBC % 0, Sodium 130 L, Potassium 4.7, Chloride 100, Carbon Dioxide 25.0, Anion Gap 5, BUN 19 H, C reatinine 1.28 H, Estim Creat Clear Calc 48.13, Est GFR (MDRD) Af Amer 53 L, Est GFR (MDRD) Non-Af 44 L, BUN/Creatinine Ratio 14.8, Glucose 426 H, Hemoglobin A1c 7.6 H, Calcium 8.3 L, Phosphorus 3.4, Magnesium 1.3 L, Total Bilirubin 0.30, AST 16, ALT 15, Alkaline Phosphatase 161 H, Total Protein 7.1, Albumin 2.1 L, G lobulin 5.0 H, Albumin/Globulin Ratio 0.4 L Micro: Microbiology 02/16/24 16:51 Mucosa - Nose SARS-CoV-2, Influenza & RSV (PCR) - Final ABG Data ABG results: ABG 02/16/24 17:03 Specimen Type ANDREW Sample Site Not entered O2 % 21.0 VBG pH 7.48 H VBG pO2 60 H VBG HCO3 22 VBG Total CO2 23 VBG O2 Sat (Calc) 93 H VBG Base Excess -1 POC Mix VBG pCO2 Pt Tmp 29.9 L O2 Delivery Device Not entered Radiography Diagnostic Testing: Radiology Impression Chest X-Ray 02/16/24 16:05 IMPRESSION: No radiographic evidence of acute cardiopulmonary disease. Electronically Signed: Ovidio Pham DO at 16:36 EST , Brain CT 02/16/24 19:09 IMPRESSION: Normal unenhanced CT scan of the brain. 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 No fever. Chronic respiratory failure on 2 L of home oxygen. 1. AE COPD with [id number]-[id number]-Rwqvnzv Respiratory Insufficiency - Admit to general medical floor. Continue IV Solu-Medrol plus empiric IV doxycycline. Wean supplemental oxygen as tolerated. 2. Uncontrolled Hypertension of 185/92 mmHg noted shortly after arrival complicating #1 - Resume home regimen plus give as needed IV hydralazine for systolic blood pressure greater than 160 mmHg. 3. DM-2; uncontrolled with hyperglycemia of 402 mg/dL present on admission with diabetic neuropathy compounding #1 & #2 - ADA diet. FSBS q. AC/HS plus SSI. Check hemoglobin A1c to objectively evaluate quality of diabetic control. 4. OA; s/p Left TKR with history of postoperative Left knee infection with septic arthritis; s/p PICC still in-place for IV Cefepime on prn Oxycodone adding to the medical complexity of #1- #3 - Noted. Maintain treatment as before. 5. Hypoalbuminemia of 2 g/dL present on admission suspicious for Protein- Calorie Malnutrition - We will consult clinical dietitian for formal malnutrition evaluation with help appreciated in advance. 6. Acute Metabolic Encephalopathy with intermittent confusion attributable to #1 - #5 - Follow treatment plan as outlined above plus minimize PROCESS ENGINEER-active medications and monitor for improvement. 7. Morbid obesity; with BMI of 42.9 this admission adding to the burden of disease outlined from #1 - #6 - Weight loss will be recommended. Check TSH. This complicates her case and may hamper recovery. 8. Moderate Thrombocytopenia of 114K present on admission - A review of her prior labs show a baseline from 76K to 200K over the past month. 9. Hyperlipidemia - Resume statin as previous. 10. Hypothyroidism - Resume Synthroid as before and check TSH. 11. Chronic diastolic CHF; with preserved LVEF - Noted with slightly elevated BNP of 198.1 pg/mL present on admission. 12. CKD; stage III - 13. Depression; on duloxetine, citalopram and trazodone - 14. History of ovarian cysts; s/p oophorectomy - Noted. 15. GERD; on omeprazole - Continue omeprazole as previous. 16. DVT prophylaxis - Lovenox 40 mg sq BID. We will follow daily CBC and stop this agent if platelet count drops below 100K. Total time: Approximately (but not less than) 75 minutes.
--- NOTE | 2024-02-17 11:00 | DCINST_ITS ---
Discharge Instructions Diet Discharge Diet: No restrictions Activity Discharge Activity: Return to Normal Activity Weight Bearing Status: Weight bearing as tolerated Dressing / Incision Call your doctor if you observe: Fever of 101 or Higher, Coldness, Increased Pain, Numbness or Tingling, Change in Color, Inability to urinate, Inability to have a bowel movement, Shortness of breath, Dizziness, Fainting spells, Swelling in the ankles, Chest pain, Prolonged hiccupping, Increased palpitations (irregular heartbeat) and Calf discomfort Follow Up Care When: IN 2 WEEKS Test Results: Test results from this visit will be discussed in further detail at your follow- up appointment, if applicable. Discharge Plan Admission Admit Date/Time: 02/16/24 20:39 Primary Reason for Your Visit: Mild COPD exacerbation. Attending Provider: Gian Solis Primary Care Provider: Deepa Hunt Consulting Providers: Randy Sanabria Discharge Orders/Prescriptions Prescriptions: New prednisone 20 mg tablet 40 mg PO DAILY 5 Days Qty: 10 0RF doxycycline hyclate 100 mg tablet 100 mg PO BID 5 Days Qty: 10 0RF amlodipine 10 mg tablet 10 mg PO DAILY Qty: 30 0RF Continued atorvastatin 20 mg tablet 20 mg PO DAILY citalopram 40 mg tablet 40 mg PO DAILY aspirin 81 mg tablet,delayed release (DR/EC) 81 mg PO DAILY gabapentin 800 mg tablet 800 mg PO TID levothyroxine 75 mcg tablet 75 mcg PO DAILY trazodone 100 mg tablet 100 mg PO QHS montelukast 10 mg tablet 10 mg PO QHS metoprolol succinate 100 mg tablet extended release 24 hr 100 mg PO DAILY 30 Days Qty: 30 2RF Rx Instructions: Hold for heart less than 50 or systolic blood pressure less than 100 mmHg. furosemide 40 mg tablet 40 mg PO DAILY 30 Days Qty: 30 2RF Rx Instructions: Take extra 40 mg dose at 5 PM for increased leg swelling or weight gain 5 pounds in 1 week. cyanocobalamin (vitamin B-12) 1,000 mcg tablet 1,000 mcg PO QODAY omeprazole 40 mg capsule,delayed release(DR/EC) 40 mg PO DAILY duloxetine 20 mg capsule,delayed release(DR/EC) 20 mg PO BID oxycodone 5 mg tablet 5 mg PO Q4H PRN (Reason: PAIN ) Rx Instructions: TAKE ONE TABLET BY MOUTH EVERY 4 TO 6 HOURS NEEDED FOR PAIN FOR SEVEN DAYS. sennosides-docusate sodium [Stimulant Laxative Plus] 8.6-50 mg Tablet 2 tab PO BID PRN (Reason: CONSTIPATION ) ondansetron 4 mg tablet,disintegrating 8 mg PO Q8H PRN (Reason: NAUSEA ) dextromethorphan-guaifenesin [Mucinex DM] 60-1,200 mg tablet extended release 12 hr 1 tab PO Q12H 7 Days Qty: 14 0RF Changed insulin glargine [Lantus Solostar U-100 Insulin] 100 unit/mL (3 mL) insulin pen 50 unit subcut BID 30 Days Qty: 30 0RF Rx Instructions: Hold if glucose less than 130 mg/dl Discontinued amlodipine 5 mg tablet 5 mg PO DAILY Referrals / Follow Up: Jaciel Jackson MD [Med Staff - Active Staff] - See Referral Note (She has a scheduled follow-up today 02/17/2020 at 1 PM.) Deepa Hunt PA [Primary Care Provider] - Disposition Disposition (needs filled in before D/C Order can be placed): Home, Self Care
[2024-02-17 11:22] LABS: Bedside Glucose 402 mg/dL (74-106)
--- NOTE | 2024-02-17 11:43 | PCM.DC.SUM ---
Providers Date of Admission: 02/16/24 Date of Discharge: 02/17/24 Primary Care Physician: APOLONIA Crowell Reason For Visit: AE COPD, RESPIRATORY INSUFFICIENCY, HYPERGLYCEMIA Diagnosis Discharge Diagnosis (1) Acute exacerbation of chronic obstructive pulmonary disease: Status: Chronic Code(s): J44.1 - Chronic obstructive pulmonary disease with (acute) exacerbation (2) Respiratory insufficiency: Status: Acute Code(s): R06.89 - Other abnormalities of breathing (3) Uncontrolled hypertension: Status: Acute Code(s): I10 - Essential (primary) hypertension (4) Diabetes mellitus, type 2: Status: Acute Code(s): E11.9 - Type 2 diabetes mellitus without complications Qualifiers: Diabetes mellitus complication status: without complication Diabetes mellitus fpc insulin use: with fpc use Qualified Code(s): E11.9 - Type 2 diabetes mellitus without complications; Z79.4 - MCC (current) use of insulin (5) Hyperglycemia due to diabetes mellitus: Status: Acute Code(s): E11.65 - Type 2 diabetes mellitus with hyperglycemia (6) Metabolic encephalopathy: Status: Acute Code(s): G93.41 - Metabolic encephalopathy (7) BMI greater than 40: Status: Acute Plan 68-year-old female was admitted with cough, shortness of breath, chills for past several days. No fever. Chronic respiratory failure on 2 L of home oxygen. 1. AE COPD with Chronic hypoxic respiratory failure on 2 L of home oxygen at night-patient was admitted on [facility] floor. When I saw in the morning, she is not short of breath. No severe cough. She asked for discharge so that she can see orthopedic surgeon Dr. Jaciel Jackson for his appointment at 1 PM today. Home qualification oxygen shows 98% at rest on room air and 95% on ambulation on room air. Patient discharged on burst therapy of prednisone, doxycycline for 5 more days and Mucinex. She uses 2 L of oxygen at night. No acute respiratory failure. VBG 7.48/mixed pCO2 30/O2 60 on room air. Mild hypomagnesemia, prescription for magnesium sent. Follow-up in pulmonary clinic 2. Uncontrolled Hypertension of 185/92:- Resume home regimen plus give as needed IV hydralazine for systolic blood pressure greater than 160 mmHg. Patient blood pressure is high. Amlodipine dose increased to 10 mg daily advise follow-up PCP within 1 week 3. DM-2; uncontrolled with hyperglycemia of 402 mg/dL present on admission with diabetic neuropathy: Probably due to IV Solu-Medrol. A1c 7.6%. Lantus dose increased. Advised follow-up PCP in 1 week 4. OA; s/p Left TKR with history of postoperative Left knee infection with septic arthritis; s/p PICC still in-place for IV Cefepime on prn Oxycodone - Noted. Maintain treatment as before. Patient has follow-up with Dr. Jaciel Jackson today. Patient discharged and advised to follow-up in office. I also discussed with him. 5. Hypoalbuminemia of 2 g/dL present on admission suspicious for Protein-Calorie Malnutrition - We will consult clinical dietitian for formal malnutrition evaluation with help appreciated in advance. 6. Acute Metabolic Encephalopathy with intermittent confusion- Follow treatment plan as outlined above plus minimize ASSEMBLER-active medications and monitor for improvement. 7. Morbid obesity; with BMI of 42.9 this admission adding to the burden of disease outlined from #1 - #6 - Weight loss will be recommended. Check TSH. This complicates her case and may hamper recovery. 8. Moderate Thrombocytopenia of 114K present on admission - A review of her prior labs show a baseline from 76K to 200K over the past month. 9. Hyperlipidemia - Resume statin as previous. 10. Hypothyroidism - Resume Synthroid as before and check TSH. 11. Chronic diastolic CHF; with preserved LVEF - Noted with slightly elevated BNP of 198.1 pg/mL present on admission. 12. CKD; stage III - 13. Depression; on duloxetine, citalopram and trazodone - 14. History of ovarian cysts; s/p oophorectomy - Noted. 15. GERD; on omeprazole - Continue omeprazole as previous. 16. DVT prophylaxis - Lovenox 40 mg sq BID. No significant drop in platelet count. Discharge medication reconciliation done. Discharge follow-up instructions completed. Discharge process discussed with the patient and all questions were answered to patient's satisfaction. Follow with PCP in 1 to 2 weeks Total time spent, exact 35 minutes on discharge meds reconciliation, examination, coordination of care with nurses and ancillary staff, review of imaging and blood test and discussion with the patient on follow-up instructions. Medications at Discharge Home Medications aspirin 81 mg tablet,delayed release 81 mg PO DAILY [facility] 01/12/24 atorvastatin 20 mg tablet 20 mg PO DAILY CHOLESTEROL 01/12/24 citalopram 40 mg tablet 40 mg PO DAILY DEPRESSION 01/12/24 gabapentin 800 mg tablet 800 mg PO TID NERVE PAIN 01/12/24 levothyroxine 75 mcg tablet 75 mcg PO DAILY THYROID 01/12/24 montelukast 10 mg tablet 10 mg PO QHS COPD 01/12/24 trazodone 100 mg tablet 100 mg PO QHS DEPRESSION 01/12/24 furosemide 40 mg tablet 40 mg PO DAILY SWELLING/WEIGHT GAIN 1 month #30 tabs 01/14/24 metoprolol succinate 100 mg tablet,extended release 24 hr 100 mg PO DAILY BLOOD PRESSURE 1 month #30 tabs 01/14/24 cyanocobalamin (vitamin B-12) 1,000 mcg tablet 1,000 mcg PO QODAY SUPPLEMENT 01/27/24 duloxetine 20 mg capsule,delayed release 20 mg PO BID DEPRESSION 01/27/24 omeprazole 40 mg capsule,delayed release 40 mg PO DAILY GERD 01/27/24 ondansetron 4 mg disintegrating tablet 8 mg PO Q8H PRN NAUSEA 02/16/24 oxycodone 5 mg tablet 5 mg PO Q4H PRN PAIN 02/16/24 sennosides 8.6 mg-docusate sodium 50 mg tablet (Stimulant Laxative Plus) 2 tab PO BID PRN CONSTIPATION 02/16/24 amlodipine 10 mg tablet 10 mg PO DAILY #30 tabs 02/17/24 dextromethorphan-guaifenesin ER 60 mg-1,200 mg tab,extend release,12hr (Mucinex DM) 1 tab PO Q12H ALLERGIES/CONGESTION 7 days #14 tabs 02/17/24 doxycycline hyclate 100 mg tablet 100 mg PO BID 5 days #10 tabs 02/17/24 insulin glargine 100 unit/mL (3 mL) subcutaneous pen (Lantus Solostar U-100 Insulin) 50 unit (0.5 mL) subcut BID DIABETES 1 month #30 mL 02/17/24 magnesium chloride 64 mg (magnesium chloride) tablet,delayed release (Mag 64) 128 mg (2 x 64 mg) PO BID 5 days #20 tabs 02/17/24 prednisone 20 mg tablet 40 mg (2 x 20 mg) PO DAILY 5 days #10 tabs 02/17/24 Physical Exam Narrative Seen and examined. Patient feels comfortable. No shortness of breath. Cough is controlled. Wants to go home and see Dr. Jaciel Jackson. Patient still smokes cigarettes about 2 to 3/day. Started smoking at the age of 16 pack/day. Physical exam General: Alert, Oriented x3, Cooperative HEENT: Atraumatic, PERRLA, EOMI, Normocephalic Oral: No Gingival or Mucosal Lesions/ Ulcerations Neck: Supple, No JVD, Negative Carotid Bruits Chest wall/Lungs: Air entry diminished in bilateral lung bases. No crepitation/rhonchi/wheezing Cardiovascular: Regular rate, Regular Rhythm, Normal S1, Normal S2, No M/G/R Abdomen: Bowel Sounds Present, Soft, Non Tender, Non-Distended : No dysuria. No renal angle tenderness. No suprapubic tenderness. Extremities: No edema, Capillary Refill Less than 3 Seconds Skin: No rashes, No breakdown Musculoskeletal: No Tenderness to Palpation of Joints or Extremities Neurological: Cranial nerves II-XII grossly intact, DTR 2+/4. No acute focal neurological deficit. Psych/Mental Status: Normal Affect, Appropriate. Weight / BMI Weight Weight: 228 lb 5 oz Body Mass Index (BMI) 42.0 ABG / Lab / Microbiology Data 02/17/24 07:00 02/17/24 07:00 Laboratory: Laboratory Results - last 24 hr 02/16/24 16:10: WBC 7.7, RBC 4.00 L, Hgb 10.9 L, Hct 34.2 L, MCV 85.5, MCH 27.3, MCHC 31.9 L, RDW Std Deviation 47.8 H, RDW Coeff of Sidra 15.2 H, Plt Count 114 L, MPV 11.7, Immature Gran % (Auto) 0.600, Neut % (Auto) 77.2 H, Lymph % (Auto) 17.7 L, [place] % (Auto) 4.2, Eos % (Auto) 0.0, Baso % (Auto) 0.3, Absolute Neuts (auto) 6.0, Absolute Lymphs (auto) 1.36, Nucleated RBC % 0, Sodium 133 L, Potassium 4.9, Chloride 104, Carbon Dioxide 22.0, Anion Gap 7, BUN 17, Creatinine 1.50 H, Estim Creat Clear Calc 41.70, Est GFR (MDRD) Af Amer 45 L, Est GFR (MDRD) Non-Af 37 L, BUN/Creatinine Ratio 11.3, Glucose 406 H, Calcium 8.4 L, Total Bilirubin 0.30, Direct Bilirubin 0.08, AST 19, ALT 12 L, Alkaline Phosphatase 169 H, Troponin I High Sens 9, B-Natriuretic Peptide 198.1 H, Total Protein 7.1, Albumin 2.0 L, Globulin 5.1 H 02/16/24 16:30: POC Glucose 401 H 02/16/24 16:51: Vitamin B12 1161 H, Acetone Level NEGATIVE 02/16/24 17:05: Urine Color Yellow, Urine Clarity Clear, Urine pH 6.0, Ur Specific [place] 1.015, Urine Protein 500 H, Urine Glucose (UA) 1000 H, Urine Ketones Negative, Urine Occult Blood 150 H, Urine Nitrite Negative, Urine Bilirubin Negative, Urine Urobilinogen Normal, Ur Leukocyte Esterase Negative, Urine RBC 0-5 SEEN, Urine WBC 5-10 SEEN, Ur Squamous Epith Cells 0-5 SEEN, Urine Bacteria RARE, Urine Mucus 0 SEEN, Urine Opiates Screen NEGATIVE, Urine Methadone Screen NEGATIVE, Ur Barbiturates Screen NEGATIVE, Ur Phencyclidine Scrn NEGATIVE, Ur Amphetamines Screen NEGATIVE, MDMA (Ecstasy) Screen NEGATIVE, U Benzodiazepines Scrn NEGATIVE, Urine Cocaine Screen NEGATIVE, U Cannabinoids Screen NEGATIVE, Ur Drug Screen Comment 02/16/24 18:50: POC Glucose 388 H 02/16/24 22:53: POC Glucose 354 H 02/16/24 23:35: Folate 8.90, TSH 4.630 H 02/17/24 06:50: POC Glucose 444 H 02/17/24 07:00: WBC 6.1, RBC 3.79 L, Hgb 10.5 L, Hct 32.1 L, MCV 84.7, MCH 27.7, MCHC 32.7, RDW Std Deviation 46.8 H, RDW Coeff of Sidra 15.2 H, Plt Count 104 L, MPV 12.1 H, Immature Gran % (Auto) 1.300 H, Neut % (Auto) 82.4 H, Lymph % (Auto) 11.8 L, [place] % (Auto) 4.3, Eos % (Auto) 0.0, Baso % (Auto) 0.2, Absolute Neuts (auto) 5.0, Absolute Lymphs (auto) 0.72 L, Nucleated RBC % 0, Sodium 130 L, Potassium 4.7, Chloride 100, Carbon Dioxide 25.0, Anion Gap 5, BUN 19 H, Creatinine 1.28 H, Estim Creat Clear Calc 48.13, Est GFR (MDRD) Af Amer 53 L, Est GFR (MDRD) Non-Af 44 L, BUN/Creatinine Ratio 14.8, Glucose 426 H, Hemoglobin A1c 7.6 H, Calcium 8.3 L, Phosphorus 3.4, Magnesium 1.3 L, Total Bilirubin 0.30, AST 16, ALT 15, Alkaline Phosphatase 161 H, Total Protein 7.1, Albumin 2.1 L, Globulin 5.0 H, Albumin/Globulin Ratio 0.4 L 02/17/24 11:03: POC Glucose 402 H Microbiology: Microbiology 02/16/24 16:51 Mucosa - Nose SARS-CoV-2, Influenza & RSV (PCR) - Final ABG: ABG 02/16/24 17:03 Specimen Type ANDREW Sample Site Not entered O2 % 21.0 VBG pH 7.48 H VBG pO2 60 H VBG HCO3 22 VBG Total CO2 23 VBG O2 Sat (Calc) 93 H VBG Base Excess -1 POC Mix VBG pCO2 Pt Tmp 29.9 L O2 Delivery Device Not entered Radiography Diagnostic Testing: Radiology Impression Chest X-Ray 02/16/24 16:05 IMPRESSION: No radiographic evidence of acute cardiopulmonary disease. Electronically Signed: Ovidio Pham DO at 16:36 EST , Brain CT 02/16/24 19:09 IMPRESSION: Normal unenhanced CT scan of the brain. Electronically Signed: Ovidio Pham DO at 19:31 EST , D/C Instructions Discharge Diet: No restrictions Weight Bearing Status: Weight bearing as tolerated Call your doctor if you observe: Fever of 101 or Higher, Coldness, Increased Pain, Numbness or Tingling, Change in Color, Inability to urinate, Inability to have a bowel movement, Shortness of breath, Dizziness, Fainting spells, Swelling in the ankles, Chest pain, Prolonged hiccupping, Increased palpitations (irregular heartbeat) and Calf discomfort When: IN 2 WEEKS Meaningful Use Info Meaningful Use Meaningful Use Diagnoses (Choose all that apply): None applicable Ischemic Stroke Statin Dosing Therapy Reference: STATIN DOSE THERAPY REFERENCE: * Patients > 75 years receive moderate or high dose statin therapy. * Patients 75 years or YOUNGER should receive HIGH intensity statin dose unless contraindicated. You will be required to document reason for non-treatment if statin daily dose does not meet guidelines. HIGH DOSE STATIN THERAPY DAILY Atorvastatin > than or = to 40 mg Rosuvastatin > than or = to 20 mg Amlodipine + Atorvastatin > than or = to 2.5/40 mg Ezetimibe + Simvastatin 10/80 mg Simvastatin 80mg Discharge Plan Admission Admit Date/Time: 02/16/24 20:39 Primary Reason for Your Visit: Mild COPD exacerbation. Attending Provider: Gian Solis Primary Care Provider: Deepa Hunt Consulting Providers: Randy Sanabria Discharge Orders/Prescriptions Prescriptions: New prednisone 20 mg tablet 40 mg PO DAILY 5 Days Qty: 10 0RF doxycycline hyclate 100 mg tablet 100 mg PO BID 5 Days Qty: 10 0RF amlodipine 10 mg tablet 10 mg PO DAILY Qty: 30 0RF magnesium chloride [Mag 64] 64 mg tablet,delayed release (DR/EC) 128 mg PO BID 5 Days Qty: 20 0RF Continued atorvastatin 20 mg tablet 20 mg PO DAILY citalopram 40 mg tablet 40 mg PO DAILY aspirin 81 mg tablet,delayed release (DR/EC) 81 mg PO DAILY gabapentin 800 mg tablet 800 mg PO TID levothyroxine 75 mcg tablet 75 mcg PO DAILY trazodone 100 mg tablet 100 mg PO QHS montelukast 10 mg tablet 10 mg PO QHS metoprolol succinate 100 mg tablet extended release 24 hr 100 mg PO DAILY 30 Days Qty: 30 2RF Rx Instructions: Hold for heart less than 50 or systolic blood pressure less than 100 mmHg. furosemide 40 mg tablet 40 mg PO DAILY 30 Days Qty: 30 2RF Rx Instructions: Take extra 40 mg dose at 5 PM for increased leg swelling or weight gain 5 pounds in 1 week. cyanocobalamin (vitamin B-12) 1,000 mcg tablet 1,000 mcg PO QODAY omeprazole 40 mg capsule,delayed release(DR/EC) 40 mg PO DAILY duloxetine 20 mg capsule,delayed release(DR/EC) 20 mg PO BID oxycodone 5 mg tablet 5 mg PO Q4H PRN (Reason: PAIN ) Rx Instructions: TAKE ONE TABLET BY MOUTH EVERY 4 TO 6 HOURS NEEDED FOR PAIN FOR SEVEN DAYS. sennosides-docusate sodium [Stimulant Laxative Plus] 8.6-50 mg Tablet 2 tab PO BID PRN (Reason: CONSTIPATION ) ondansetron 4 mg tablet,disintegrating 8 mg PO Q8H PRN (Reason: NAUSEA ) dextromethorphan-guaifenesin [Mucinex DM] 60-1,200 mg tablet extended release 12 hr 1 tab PO Q12H 7 Days Qty: 14 0RF Changed insulin glargine [Lantus Solostar U-100 Insulin] 100 unit/mL (3 mL) insulin pen 50 unit subcut BID 30 Days Qty: 30 0RF Rx Instructions: Hold if glucose less than 130 mg/dl Discontinued amlodipine 5 mg tablet 5 mg PO DAILY Referrals / Follow Up: Jaciel Jackson MD [Med Staff - Active Staff] - See Referral Note (She has a scheduled follow-up today 02/17/2020 at 1 PM.) Deepa Hunt PA [Primary Care Provider] - Mauro Chavis DO [Med Staff - Active Staff] - Within 1 Month Disposition Disposition (needs filled in before D/C Order can be placed): Home, Self Care Charges/Coding Visit Charges Inpatient E&M: 80706 Disch Hosp >30min
--- NOTE | 2024-02-17 14:12 | PHA.DC.MR.R ---
Pharmacy [place] Med Reconciliation Pharmacy Service has performed discharge medication reconciliation for this patient. The patient's discharge medication list was reviewed for discrepancies and discrepancies were resolved. Medications at Discharge Home Medications aspirin 81 mg tablet,delayed release 81 mg PO DAILY [facility] 01/12/24 atorvastatin 20 mg tablet 20 mg PO DAILY CHOLESTEROL 01/12/24 citalopram 40 mg tablet 40 mg PO DAILY DEPRESSION 01/12/24 gabapentin 800 mg tablet 800 mg PO TID NERVE PAIN 01/12/24 levothyroxine 75 mcg tablet 75 mcg PO DAILY THYROID 01/12/24 montelukast 10 mg tablet 10 mg PO QHS COPD 01/12/24 trazodone 100 mg tablet 100 mg PO QHS DEPRESSION 01/12/24 furosemide 40 mg tablet 40 mg PO DAILY SWELLING/WEIGHT GAIN 1 month #30 tabs 01/14/24 metoprolol succinate 100 mg tablet,extended release 24 hr 100 mg PO DAILY BLOOD PRESSURE 1 month #30 tabs 01/14/24 cyanocobalamin (vitamin B-12) 1,000 mcg tablet 1,000 mcg PO QODAY SUPPLEMENT 01/27/24 duloxetine 20 mg capsule,delayed release 20 mg PO BID DEPRESSION 01/27/24 omeprazole 40 mg capsule,delayed release 40 mg PO DAILY GERD 01/27/24 ondansetron 4 mg disintegrating tablet 8 mg PO Q8H PRN NAUSEA 02/16/24 oxycodone 5 mg tablet 5 mg PO Q4H PRN PAIN 02/16/24 sennosides 8.6 mg-docusate sodium 50 mg tablet (Stimulant Laxative Plus) 2 tab PO BID PRN CONSTIPATION 02/16/24 amlodipine 10 mg tablet 10 mg PO DAILY #30 tabs 02/17/24 dextromethorphan-guaifenesin ER 60 mg-1,200 mg tab,extend release,12hr (Mucinex DM) 1 tab PO Q12H ALLERGIES/CONGESTION 7 days #14 tabs 02/17/24 doxycycline hyclate 100 mg tablet 100 mg PO BID 5 days #10 tabs 02/17/24 insulin glargine 100 unit/mL (3 mL) subcutaneous pen (Lantus Solostar U-100 Insulin) 50 unit (0.5 mL) subcut BID DIABETES 1 month #30 mL 02/17/24 magnesium chloride 64 mg (magnesium chloride) tablet,delayed release (Mag 64) 128 mg (2 x 64 mg) PO BID 5 days #20 tabs 02/17/24 prednisone 20 mg tablet 40 mg (2 x 20 mg) PO DAILY 5 days #10 tabs 02/17/24
== END 2024-02-17 11:57 | disposition home or self-care (01) | DRG 190 ==
LOC: ED 17:54 → MS3 22:06
PROVIDERS: Physician Assistant; Admitting Provider Internal Medicine; Emergency Provider Emergency Medicine; PCP Physician Assistant Medical; Visit Provider Internal Medicine
DX: J44.1 Chronic obstructive pulmonary disease with (acute) exacerbation (principal); G93.41 Metabolic encephalopathy; T84.54XA Infection and inflammatory reaction due to internal left knee prosthesis, initial encounter; M00.9 Pyogenic arthritis, unspecified; I13.0 Hypertensive heart and chronic kidney disease with heart failure and stage 1 through stage 4 chronic kidney disease, or unspecified chronic kidney disease; Z68.41 Body mass index [BMI] 40.0-44.9, adult; J96.11 Chronic respiratory failure with hypoxia; I50.32 Chronic diastolic (congestive) heart failure; E88.09 Other disorders of plasma-protein metabolism, not elsewhere classified; E11.22 Type 2 diabetes mellitus with diabetic chronic kidney disease; N18.30 Chronic kidney disease, stage 3 unspecified; F32.A Depression, unspecified; E66.01 Morbid (severe) obesity due to excess calories; K21.9 Gastro-esophageal reflux disease without esophagitis; E11.65 Type 2 diabetes mellitus with hyperglycemia; E78.5 Hyperlipidemia, unspecified; Z79.4 Long term (current) use of insulin; M17.12 Unilateral primary osteoarthritis, left knee; E11.40 Type 2 diabetes mellitus with diabetic neuropathy, unspecified; F17.210 Nicotine dependence, cigarettes, uncomplicated; F17.290 Nicotine dependence, other tobacco product, uncomplicated; Z79.82 Long term (current) use of aspirin; Z79.890 Hormone replacement therapy; Z79.891 Long term (current) use of opiate analgesic; Z79.899 Other long term (current) drug therapy; Z99.81 Dependence on supplemental oxygen
CPT/HCPCS: 70450; 71045; 80048; 80053; 80076; 80307; 81001; 82009; 82607; 82746; 82803; 82962; 83036; 83735; 83880; 84100; 84443; 84484; 85025; 87086; 87631; 93005; 94668; 97162; 97166; 99252; 99285; A4216; G0463

== ENCOUNTER 2024-02-23 11:56 | Outpatient (RCR) | payer MEDICARE, SELFPAY ==
[2024-02-16 12:49] LABS: Anion Gap 4 (5-15); BUN 15 mg/dL (7-18); BUN/Creat Ratio 12.5 RATIO (10-20); Calcium,Total 8.5 mg/dL (8.5-10.1); Chloride 104 mmol/L (98-107); EST Glomerular Filtration Rate 48 mL/min (>60); Est Glom Filt Rate - Afr Amer 58 mL/min (>60); Glucose 212 mg/dL (74-106); Potassium 4.4 mmol/L (3.5-5.1); Sodium Level 135 mmol/L (136-145)
[2024-02-23 12:51] LABS: Hematocrit 32.6 % (37-47); Hemoglobin 10.4 g/dL (12.0-15.0); Mean Corp Hgb Conc 31.9 g/dL (32-36); Mean Corpuscular Hgb 27.7 pg (27.0-32.0); Mean Corpuscular Volume 86.7 fL (81-99); Mean Platelet Vol. 12.7 fl (6.2-12.0); POSITIVE COUNT YES; Platelet Count 81 K/mm3 (150-450); RBC Distribution Width CV 15.2 % (11.6-14.6); RBC Distribution Width SD 48.5 fl (35.1-43.9); Red Blood Count 3.76 M/mm3 (4.2-5.4); White Blood Count 7.9 K/mm3 (4.4-11.0)
[2024-02-23 12:52] LABS: Erythrocyte Sedimentation Rate 30 mm/hr (0-30)
[2024-02-23 12:53] LABS: Scan Indicated on CBC? Y/N YES- FLAGS NOTED
[2024-02-23 13:21] LABS: Anion Gap 5 (5-15); BUN 21 mg/dL (7-18); Chloride 106 mmol/L (98-107); Creatinine, Serum 1.31 mg/dL (0.55-1.02); EST Glomerular Filtration Rate 43 mL/min (>60); Est Glom Filt Rate - Afr Amer 52 mL/min (>60); Glucose 303 mg/dL (74-106); Potassium 4.1 mmol/L (3.5-5.1); Sodium Level 136 mmol/L (136-145)
== END 2024-03-10 18:00 | disposition home or self-care (01) ==
LOC: HHLAB 11:56
PROVIDERS: PCP Physician Assistant Medical
DX: T84.59XA Infection and inflammatory reaction due to other internal joint prosthesis, initial encounter (principal)
CPT/HCPCS: 80048; 85027; 85652

== ENCOUNTER → 2024-03-16 | Outpatient (CLI) | payer MEDICARE, SELFPAY ==
--- NOTE | 2024-03-16 08:35 | EKG12_ITS ---
Test Reason : QTC MONITOR Blood Pressure : */* mmHG Vent. Rate : 62 BPM Atrial Rate : 62 BPM P-R Int : 140 ms QRS Dur : 58 ms QT Int : 424 ms P-R-T Axes : 29 7 43 degrees QTcB Int : 430 ms Normal sinus rhythm Low voltage QRS Borderline ECG Confirmed by Fran Hugo ([id number]), television news video editor KELLY OLIVAS ([id number]) on 03/19/2024 9:08:31 AM Referred By: Iker Ashton Confirmed By: Fran Hugo
== END | disposition home or self-care (01) ==
LOC: PSN 08:23
PROVIDERS: PCP Physician Assistant Medical; Referring Provider Internal Medicine Infectious Disease; Visit Provider Internal Medicine Infectious Disease
DX: T84.59XA Infection and inflammatory reaction due to other internal joint prosthesis, initial encounter (principal); X58.XXXA Exposure to other specified factors, initial encounter
CPT/HCPCS: 93005

== ENCOUNTER → 2024-05-25 | Outpatient (CLI) | payer MEDICARE, SELFPAY ==
--- NOTE | 2024-05-25 07:49 | EKG12_ITS ---
Test Reason : QTC MONITORING Blood Pressure : */* mmHG Vent. Rate : 74 BPM Atrial Rate : 74 BPM P-R Int : 98 ms QRS Dur : 60 ms QT Int : 394 ms P-R-T Axes : 14 22 56 degrees QTcB Int : 437 ms Sinus rhythm with short TN with Premature atrial complexes Low voltage QRS Cannot rule out Anterior infarct , age undetermined Abnormal ECG Confirmed by ELISA MORRISSEY, NIKA ([id number]), newspaper editor KELLY OLIVAS ([id number]) on 05/25/2024 1:03:35 PM Referred By: Iker Ashton Confirmed By: NIKA PÉREZ MD
[2024-05-25 08:39] LABS: Erythrocyte Sedimentation Rate 31 mm/hr (0-30)
[2024-05-25 08:41] LABS: Hematocrit 37.7 % (37-47); Hemoglobin 11.6 g/dL (12.0-15.0); Mean Corp Hgb Conc 30.8 g/dL (32-36); Mean Corpuscular Hgb 26.1 pg (27.0-32.0); Mean Corpuscular Volume 84.7 fL (81-99); Mean Platelet Vol. 11.8 fl (6.2-12.0); Platelet Count 157 K/mm3 (150-450); RBC Distribution Width CV 14.8 % (11.6-14.6); RBC Distribution Width SD 45.7 fl (35.1-43.9); Red Blood Count 4.45 M/mm3 (4.2-5.4); White Blood Count 9.6 K/mm3 (4.4-11.0)
[2024-05-25 08:47] LABS: AST(SGOT) 38 U/L (15-37); Alanine Aminotransfer ALT/SGPT 34 U/L (13-56); Albumin, Serum 2.1 g/dL (3.2-5.0); Alkaline Phosphatase 216 U/L (45-117); Anion Gap 4 (5-15); BUN 21 mg/dL (7-18); BUN/Creat Ratio 11.9 RATIO (10-20); Bilirubin, Direct 0.19 mg/dL (0.00-0.30); Calcium,Total 8.8 mg/dL (8.5-10.1); Chloride 103 mmol/L (98-107); Creatinine, Serum 1.77 mg/dL (0.55-1.02); EST Glomerular Filtration Rate 30 mL/min (>60); Est Glom Filt Rate - Afr Amer 37 mL/min (>60); Globulin 5.1 g/dL (2.2-4.2); Glucose 53 mg/dL (74-106); Potassium 4.6 mmol/L (3.5-5.1); Protein, Total 7.2 g/dL (6.4-8.2); Sodium Level 140 mmol/L (136-145)
== END | disposition home or self-care (01) ==
PROVIDERS: PCP Physician Assistant Medical; Referring Provider Internal Medicine Infectious Disease; Visit Provider Internal Medicine Infectious Disease
DX: T84.59XA Infection and inflammatory reaction due to other internal joint prosthesis, initial encounter (principal)
CPT/HCPCS: 36415; 80048; 80076; 85027; 85652; 93005